=== PATIENT | male | born 1960 | race African-American/Black ===

== ENCOUNTER 2018-08-20 10:37 | Inpatient (IN) | payer OTHER, SELFPAY ==
[2018-08-20] VITALS (54 sets, daily range): BP systolic 132–233; BP diastolic 73–149; PULSE 18–110; RESP 12–26; TEMP 36–37.7; O2SAT 91–100; BMI 49.5; BMI 50.1
--- NOTE | 2018-08-20 08:00 | RAD_ITS ---
PROCEDURE: Right L5-S1 S1-S2 and is to S3 radiofrequency ablation. DATE OF EXAMINATION: August 20, 2018. INDICATION: Male, 58 years old. Chronic pain. Prior spinal surgery. FLUOROSCOPY TIME (if supplied): (0:48) minutes/seconds. 5 intraoperative views were obtained. Intraoperative imaging was provided for right L5-S1, S1-S2 and S2-S3 radiofrequency ablations. RAD/L/S Spine Min 4 Views IMPRESSION: Intraoperative imaging provided for right-sided radiofrequency ablations. Electronically Signed: Celestine Reynolds, at 14:12 EDT , Service support ,
--- NOTE | 2018-08-20 09:50 | NURSING ---
Pt to ICU from OR w/Dr Carr, shaquille Flores, from surgery. Pt intubated with 6.[address] Perez present when pt arrived so face to face physician report given. Respiratory also present to place on ventilator. Pt agitated, restless, biting on tube. Order received from Dr Perez for Propofol GTT. Order also received for EKG d/t concern of ST changes. Dr Perez present and saw EKG results. No new orders at this time. Dr Perez will be changing the pt's ETT out for a bigger size.
--- NOTE | 2018-08-20 09:55 | CPS ---
critical value for ABG given to [facility] [employer] ICU therapist for day...will relay result ICU
--- NOTE | 2018-08-20 09:58 | RAD_ITS ---
STUDY: X-RAY CHEST REASON FOR EXAM: Male, 58 years old. Endotracheal tube and oral gastric tube placement. TECHNIQUE: Single AP portable view of the chest. COMPARISON: None. FINDINGS: An endotracheal tube is in situ. The tip is at 3.7 cm proximal to the colette. The tip of the oral gastric tube is in the distal portion of the stomach. There is evidence of a vascular congestion and CHF. There is no demonstrated pleural abnormality. There is mild cardiac enlargement. Normal mediastinum and kalani. Normal visualized pulmonary arteries. There is atherosclerotic tortuosity of the aortic arch and descending thoracic aorta. There are diffuse degenerative changes of the visualized thoracic spine. Normal visualized ribs, clavicles, and shoulders. There is no demonstrated abnormality of the visualized soft tissue structures of the upper abdomen. RAD/Chest 1 View (Portable) IMPRESSION: The tip of the endotracheal tube is at 3.7 cm proximal to the colette. The tip of the oral gastric tube is in the distal portion of the stomach. Cardiomegaly and CHF. Electronically Signed: Celestine Reynolds, at 11:15 EDT , Service support ,
--- NOTE | 2018-08-20 09:59 | EKG12_ITS ---
Test Reason : ARRYTHMIA Blood Pressure : / mmHG Vent. Rate : 074 BPM Atrial Rate : 074 BPM P-R Int : 210 ms QRS Dur : 108 ms QT Int : 450 ms P-R-T Axes : 059 090 092 degrees QTc Int : 499 ms Sinus rhythm with 1st degree A-V block Prolonged QT Poor R wave progression Abnormal ECG Confirmed by JOSSY GILMORE, MIAN ([id number]), managing editor CARYN MICHAEL ([id number]) on 08/24/2018 7:09:23 AM Referred By: Angel Ruggiero Confirmed By:MIAN FENTON MD
[2018-08-20 10:06] LABS: ALB/GLOB Ratio 0.8 RATIO (0.9-2.4); AST(SGOT) 53 U/L (15-37); Alanine Aminotransfer ALT/SGPT 59 U/L (16-61); Albumin, Serum 3.2 g/dL (3.2-5.0); Alkaline Phosphatase 59 U/L (45-117); Anion Gap 9 (5-15); BUN 17 mg/dL (7-18); BUN/Creat Ratio 14.2 RATIO (10-20); Calcium,Total 8.3 mg/dL (8.5-10.1); Chloride 103 mmol/L (98-107); EST Glomerular Filtration Rate 66 mL/min (>60); Est Glom Filt Rate - Afr Amer 80 mL/min (>60); Estimated Creatinine Clearance 74.91 ml/min; Globulin 3.9 g/dL (2.2-4.2); Glucose 185 mg/dL (74-106); Potassium 4.1 mmol/L (3.5-5.1); Protein, Total 7.1 g/dL (6.4-8.2); Sodium Level 138 mmol/L (136-145)
[2018-08-20] MEDS: Propofol 10MG/Ml 1,000 MG/100 ML Bottle 10.206 MG CONT INF ×3 (10:10→21:23)
[2018-08-20 10:58] LABS: Absolute Lymphocyte Count 1.43 X10^3/ul (0.83-4.51); Absolute Neutrophil Count 3.1 X10^3/uL (2.0-7.7); Basophil# 0.03 X10^3/uL; Basophil% 0.6 % (0-1); Eosinophil# 0.17 X10^3/uL; Eosinophils% 3.2 % (0-5); Hematocrit 41.2 % (40-54); Hemoglobin 13.5 g/dl (13.0-16.5); Lymphocyte # 1.43 X10^3/ul (4.0); Mean Corp Hgb Conc 32.8 g/gl (32-36); Mean Corpuscular Hgb 27.9 pg (27.0-32.0); Mean Corpuscular Volume 85.1 fL (80-94); Mean Platelet Vol. 12.5 fl (6.2-12.0); Monocyte# 0.61 X10^3/uL; Monocyte% 11.5 % (0-10); Neutrophil # 3.05 X10^3/uL (2.7-7.7); Neutrophil % 57.5 % (47-70); Platelet Count 185 K/mm3 (150-450); RBC Distribution Width CV 16.3 % (11.6-14.6); RBC Distribution Width SD 50.6 fl (35.1-43.9); Red Blood Count 4.84 M/mm3 (4.6-6.2); White Blood Count 5.3 K/mm3 (4.4-11.0)
--- NOTE | 2018-08-20 10:59 | HP.PCM_ITS ---
Problem List (1) Cardiopulmonary arrest Status: Acute (2) Essential (primary) hypertension Status: Chronic (3) Morbid obesity Status: Chronic (4) DJD (degenerative joint disease) Status: Chronic History of Present Illness Date of Admission: 08/20/18 Chief Complaint: Cardiopulmonary arrest The patient is a 58 year old M with multiple comorbidities including severe back pain as a result of degenerative joint disease, obstructive sleep apnea, morbid obesity with BMI of 49.5, who had been scheduled to undergo radiofrequency ablation involving his back on 08/20/2018. Patient apparently did receive 200 mg of propofol for induction. He was later found to be hypoxic he apparently bradycardia down went into asystole. CODE BLUE was called patient successfully resuscitated with ACLS protocol. Patient did receive epinephrine as well as shock for VT. He was subsequently intubated and transferred to the intensive care unit. Further history could not be obtained since patient is currently sedated on the [facility] Past Medical History Past Medical History (Chronic Problems): Chronic Problems Essential (primary) hypertension (Chronic) Morbid obesity (Chronic) DJD (degenerative joint disease) (Chronic) Allergies Penicillins Allergy (Verified 08/17/18 09:27) Hives pregabalin [From Lyrica] Allergy (Verified 08/17/18 09:27) Hives red dye Allergy (Verified 08/17/18 09:27) Angioedema Home Medications: Ambulatory Orders Medication Instructions Recorded Cephalexin [Keflex] 500 mg PO TID 04/04/13 Clonidine HCl [Catapres] 0.1 mg PO BID 04/04/13 Furosemide [Lasix] 40 mg PO DAILY PRN 04/04/13 Hydrocodone Bitart/Apap 5-325 1 tablet PO 4X/DAY PRN 04/04/13 [[place] 5MG-325MG] Lisinopril [Zestril] 40 mg PO BID 04/04/13 Vitamin B Complex 1 each PO DAILY 04/04/13 Albuterol IH (ProAir) [Proair Hfa 1 - 2 puff INHALATION Q6H PRN PRN 08/17/18 (SP)Vent Pts] Aspirin [Aspir 81] 81 mg PO DAILY 08/17/18 Budesonide/Formoterol 160/4.5 2 puff INHALATION BID 08/17/18 [Symbicort 160/4.5 Mcg Inhaler (SP)] Diclofenac [Voltaren] 75 mg PO BIDCM 08/17/18 Sotalol HCl [Sotalol AF] 80 mg PO BID 08/17/18 hydrALAZINE [Apresoline] 50 mg PO BID 08/17/18 Surgical History: total hip arthroplasty, total knee arthroplasty Smoking Status: Current every day smoker Tobacco Use: Cigarettes - *Family History Maternal History Items: - - Unable to obtain patient is on the vent Paternal History Items: - - Unable to obtain patient is on the vent Review of Systems Unable to obtain accurate/complete ROS d/t: Being sedated on the vent VTE Information - Inpt Only VTE Present on Admission: No VTE Mechan Device Prophylaxis: SCD's VTE Pharm Prophylaxis ordered?: Yes Patient Problems: Active and Suspected Problems Cardiopulmonary arrest (Acute) Objective: GENERAL: Sedated on the vent HEENT: Atraumatic; EYES; Anicteric, Normal Conjunctiva NECK; ET tube in place RESPIRATORY: Diminished to auscultation bilaterally, CARDIOVASCULAR: Regular S1 S2, GI: Protuberant, normoactive bowel sounds, : No Renal angle tenderness; EXTREMITIES: No edema, no clubbing, NEURO: Awake; no lateralizing signs. SKIN: No Rash PSYCH; Normal affect - Physical Exam Vital Signs Temp Pulse Resp BP Pulse Ox 98 F 78 18 132/73 H 100 08/20/18 08:03 08/20/18 10:53 08/20/18 10:53 08/20/18 09:41 08/20/18 10:53 Oxygen Delivery Method Room Air Weight: 170.097 kg Body Mass Index (BMI) 49.5 Laboratory Tests Past 24 Hrs 08/20/18 08/20/18 08/20/18 09:20 09:45 10:15 WBC RBC Hgb Hct MCV MCH MCHC RDW RDW Differential Plt Count Neut % (Auto) Absolute Neuts (auto) Total Counted pH Pending Bicarbonate Actual Pending POC Total CO2 Pending Base Excess Pending O2 Saturation Pending ABG pCO2 Pending ABG pO2 Pending Sodium 138 Pending Potassium 4.1 Pending Chloride 103 Pending Carbon Dioxide 26.0 Pending Anion Gap 9 Pending BUN 17 Pending Creatinine 1.20 Pending Estim Creat Clear Calc 74.91 Est GFR (MDRD) Af Amer 80 Pending Est GFR (MDRD) Non-Af 66 Pending BUN/Creatinine Ratio 14.2 Pending Glucose 185 H Pending Lactic Acid Calcium 8.3 L Pending Magnesium 3.0 H Pending Total Bilirubin 1.00 Pending AST 53 H Pending ALT 59 Pending Alkaline Phosphatase 59 Pending Troponin I < 0.015 Total Protein 7.1 Pending Albumin 3.2 Pending Globulin 3.9 Albumin/Globulin Ratio 0.8 L 08/20/18 08/20/18 10:15 10:15 WBC Pending RBC Pending Hgb Pending Hct Pending MCV Pending MCH Pending MCHC Pending RDW Pending RDW Differential Pending Plt Count Pending Neut % (Auto) Pending Absolute Neuts (auto) Pending Total Counted Pending pH Bicarbonate Actual POC Total CO2 Base Excess O2 Saturation ABG pCO2 ABG pO2 Sodium Potassium Chloride Carbon Dioxide Anion Gap BUN Creatinine Estim Creat Clear Calc Est GFR (MDRD) Af Amer Est GFR (MDRD) Non-Af BUN/Creatinine Ratio Glucose Lactic Acid Pending Calcium Magnesium Total Bilirubin AST ALT Alkaline Phosphatase Troponin I Total Protein Albumin Globulin Albumin/Globulin Ratio Assessment/Plan All Active Problems Cardiopulmonary arrest (Acute) Patient is a 58-year-old gentleman with multiple comorbidities including morbid obesity with BMI of 50, essential hypertension obstructive sleep apnea who went into cardiopulmonary arrest after induction of anesthesia for a back procedure. Successfully resuscitated with ACLS protocol and admitted to the intensive care unit 1. Cardiopulmonary arrest patient was successfully resuscitated with ACLS p rotocol. Per documentation from OR patient first went into asystole followed by V. tach. He did receive epinephrine as well as synchronized shock. 2. Acute respiratory failure following cardiopulmonary arrest patient was intubated has since been admitted to the intensive care unit consultation placed to Dr. Perez for ICU and vent management 3. Acute congestive heart failure (unspecified at this point) per chest x-ray obtained following patient cardiopulmonary arrest 2D echo ordered for EF assessment. Patient started on Lasix. Ordered serial cardiac enzymes to rule out ischemia as a possible precipitating factor 4. Essential hypertension-blood pressure controlled, home medications continued with dose adjustment as needed 3. Mild intermittent asthma 4. Obstructive apnea 5. Previous DVT following vein stripping 6. Tobacco dependence 7. Morbid obesity with BMI of 49.5 8. DVT prophylaxis SC Lovenox dose adjusted for weight Code Visit Inpatient E&M: 92585 Init Hosp L3
[2018-08-20 11:02] LABS: POSITIVE COUNT NO; POSITIVE DIFFERENTIAL NO; POSITIVE MORPHOLOGY NO
[2018-08-20 11:10] LABS: ALB/GLOB Ratio 0.9 RATIO (0.9-2.4); AST(SGOT) 89 U/L (15-37); Alanine Aminotransfer ALT/SGPT 72 U/L (16-61); Albumin, Serum 2.5 g/dL (3.2-5.0); Alkaline Phosphatase 45 U/L (45-117); Anion Gap 10 (5-15); BUN 15 mg/dL (7-18); BUN/Creat Ratio 17.1 RATIO (10-20); Calcium,Total 7.4 mg/dL (8.5-10.1); Chloride 105 mmol/L (98-107); Creatinine, Serum 0.88 mg/dL (0.70-1.30); EST Glomerular Filtration Rate 95 mL/min (>60); Est Glom Filt Rate - Afr Amer 114 mL/min (>60); Estimated Creatinine Clearance 102.14 ml/min; Globulin 2.9 g/dL (2.2-4.2); Glucose 142 mg/dL (74-106); Magnesium 1.7 mg/dL (1.6-2.6); Protein, Total 5.4 g/dL (6.4-8.2); Sodium Level 138 mmol/L (136-145)
--- NOTE | 2018-08-20 11:13 | EKG12_ITS ---
Test Reason : ARRYTHMIA Blood Pressure : / mmHG Vent. Rate : 058 BPM Atrial Rate : 250 BPM P-R Int : 000 ms QRS Dur : 098 ms QT Int : 462 ms P-R-T Axes : 000 073 150 degrees QTc Int : 453 ms Atrial flutter Nonspecific ST and T wave abnormality , probably digitalis effect Poor R wave progression Abnormal ECG Confirmed by JOSSY GILMORE, MIAN ([id number]), videotape editor CARYN MICHAEL ([id number]) on 08/24/2018 6:51:26 AM Referred By: Angel Ruggiero Confirmed By:MIAN FENTON MD
--- NOTE | 2018-08-20 11:13 | PCM.CON.CC ---
Reason for Consult Date of Consultation: 08/20/18 Reason for Consultation: Acute respiratory failure History of Present Illness: The patient is a 58-year-old male, with a history as outlined below, who presented to the hospital for an elective outpatient radiofrequency ablation under the discretion of Dr. Stevie Owens. Per the patient's pre-anesthesia report, the patient has a medical history that includes obstructive sleep apnea, hypertension, COPD, tobacco dependency, prior DVT, chronic pain and morbid obesity. The patient was initially admitted to the medical intensive care unit after suffering cardiopulmonary arrest in the OR. Per anesthesia documentation and report, the patient was given 200 mg of propofol prior to being placed in a prone position. The patient then be reportedly became hypoxic and eventually pulseless. The patient did not have any form of an advanced airway in place prior to the initiation of advanced cardiac life support. ACLS was then initiated. The patient was then intubated with a #6.5 endotracheal tube. The patient did receive a one-time shock for pulseless V. tach. It does appear that the entire event concluded in approximately 6 to 7 minutes. ROSC was achieved. The patient was then transferred to the medical intensive care unit for ongoing management. Arterial blood gas obtained immediately following intubation revealed a pH of 7.21 with a corresponding PCO2 of 71 and PO2 of 161. On arrival to the ICU, the patient was noted to be hemodynamically stable. He was alert and agitated. An audible air leak was notable. Therefore, the decision was made to appropriately sedate the patient and proceed with endotracheal tube exchange. The patient received a one-time bolus of propofol, after which time, the patient's #6.5 endotracheal tube was removed and a #7.5 endotracheal tube placed, without complication. Appropriate endotracheal tube placement was confirmed by chest x-ray. EKG was obtained and showed no evidence of ST segment elevation or T wave changes. Initial lab work showed no evidence of a leukocytosis. Chemistry profile was unremarkable. Troponin was negative. ICU nursing staff did call and speak to the patient's PCP office, Dr. Turk, who indicated that the patient was only seen by a fruit or nut farmer in 2016 at [facility]. They did not have an echo on file for the patient. They also reported that the patient's PCP has been managing his Sotalol AF prescription. However, per the PCP office staff, the patient does not have a documented history of atrial fib and the Sotalol was being used to manage the patient's hypertension. And although there is paper documentation of a history of CRISTELA, the PCP office stated that he has never had a sleep study. 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) Allergies Penicillins Allergy (Verified 08/17/18 09:27) Hives pregabalin [From Lyrica] Allergy (Verified 08/17/18 09:27) Hives red dye Allergy (Verified 08/17/18 09:27) Angioedema Home Medications: Ambulatory Orders Medication Instructions Recorded Cephalexin [Keflex] 500 mg PO TID 04/04/13 Clonidine HCl [Catapres] 0.1 mg PO BID 04/04/13 Furosemide [Lasix] 40 mg PO DAILY PRN 04/04/13 Hydrocodone Bitart/Apap 5-325 1 tablet PO 4X/DAY PRN 04/04/13 [[place] 5MG-325MG] Lisinopril [Zestril] 40 mg PO BID 04/04/13 Vitamin B Complex 1 each PO DAILY 04/04/13 Albuterol IH (ProAir) [Proair Hfa 1 - 2 puff INHALATION Q6H PRN PRN 08/17/18 (SP)Vent Pts] Aspirin [Aspir 81] 81 mg PO DAILY 08/17/18 Budesonide/Formoterol 160/4.5 2 puff INHALATION BID 08/17/18 [Symbicort 160/4.5 Mcg Inhaler (SP)] Diclofenac [Voltaren] 75 mg PO BIDCM 08/17/18 Sotalol HCl [Sotalol AF] 80 mg PO BID 08/17/18 hydrALAZINE [Apresoline] 50 mg PO BID 08/17/18 Sildenafil Citrate [Sildenafil] 20 mg PO PRN PRN 08/20/18 Surgical History: total hip arthroplasty, total knee arthroplasty Smoking Status: Current every day smoker Tobacco Use: Cigarettes - *Family History Maternal History Items: - - Unable to obtain patient is on the vent Paternal History Items: - - Unable to obtain patient is on the vent Review of Systems Unable to obtain accurate/complete ROS d/t: Due to current intubation and mechanical ventilation status. Patient Problems: Active and Suspected Problems Cardiopulmonary arrest (Acute) Objective: The patient's most recent lab work, culture data and imaging studies have all been personally reviewed. - Physical Exam General: - - Currently intubated, sedated and mechanically ventilated. HEENT: Atraumatic, PERRLA, Normocephalic Oral: Moist Mucosa, - - Endotracheal and OG tubes currently in place. Neck: Supple, No Nodes, Trachea Midline, - - Large neck circumference with redundant soft tissue Lungs: No rhonchi, No wheeze, No rales, Diminished Cardiovascular: Regular rate, Regular Rhythm, Normal S1, Normal S2, No murmurs Abdomen: Bowel Sounds Present, Soft, Non Tender, Distended, Obese Extremities: No clubbing, No cyanosis, Edema Skin: - - Chronic lower extremity skin changes Musculoskeletal: No Muscle Wasting Lymphatic: No Cervical, Supraclavicular, or Inguinal Adenopathy Neurological: - - No focal neurological deficits. Vital Signs Temp Pulse Resp BP Pulse Ox 98 F 78 18 132/73 H 100 08/20/18 08:03 08/20/18 10:45 08/20/18 10:45 08/20/18 09:41 08/20/18 10:45 Oxygen Delivery Method Room Air Weight: 375 lb Body Mass Index (BMI) 49.5 Laboratory Tests Past 24 Hrs 08/20/18 08/20/18 08/20/18 09:20 09:45 10:15 WBC RBC Hgb Hct MCV MCH MCHC RDW RDW Differential Plt Count MPV Immature Gran % (Auto) Neut % (Auto) Lymph % (Auto) [place] % (Auto) Eos % (Auto) Baso % (Auto) Absolute Neuts (auto) Absolute Lymphs (auto) Total Counted pH Pending Bicarbonate Actual Pending POC Total CO2 Pending Base Excess Pending O2 Saturation Pending ABG pCO2 Pending ABG pO2 Pending Sodium 138 138 Potassium 4.1 5.0 Chloride 103 105 Carbon Dioxide 26.0 23.0 Anion Gap 9 10 BUN 17 15 Creatinine 1.20 0.88 Estim Creat Clear Calc 74.91 102.14 Est GFR (MDRD) Af Amer 80 114 Est GFR (MDRD) Non-Af 66 95 BUN/Creatinine Ratio 14.2 17.1 Glucose 185 H 142 H Lactic Acid Calcium 8.3 L 7.4 L Magnesium 3.0 H 1.7 Total Bilirubin 1.00 0.70 AST 53 H 89 H ALT 59 72 H Alkaline Phosphatase 59 45 Troponin I < 0.015 Total Protein 7.1 5.4 L Albumin 3.2 2.5 L Globulin 3.9 2.9 Albumin/Globulin Ratio 0.8 L 0.9 08/20/18 08/20/18 10:15 10:15 WBC 5.3 RBC 4.84 Hgb 13.5 Hct 41.2 MCV 85.1 MCH 27.9 MCHC 32.8 RDW 16.3 H RDW Differential 50.6 H Plt Count 185 MPV 12.5 H Immature Gran % (Auto) 0.200 Neut % (Auto) 57.5 Lymph % (Auto) 27.0 [place] % (Auto) 11.5 H Eos % (Auto) 3.2 Baso % (Auto) 0.6 Absolute Neuts (auto) 3.1 Absolute Lymphs (auto) 1.43 Total Counted Not Reportable pH Bicarbonate Actual POC Total CO2 Base Excess O2 Saturation ABG pCO2 ABG pO2 Sodium Potassium Chloride Carbon Dioxide Anion Gap BUN Creatinine Estim Creat Clear Calc Est GFR (MDRD) Af Amer Est GFR (MDRD) Non-Af BUN/Creatinine Ratio Glucose Lactic Acid Pending Calcium Magnesium Total Bilirubin AST ALT Alkaline Phosphatase Troponin I Total Protein Albumin Globulin Albumin/Globulin Ratio Clinical Impression(s) from Imaging Studies Chest X-Ray 08/20/18 09:58 IMPRESSION: The tip of the endotracheal tube is at 3.7 cm proximal to the colette. The tip of the oral gastric tube is in the distal portion of the stomach. Cardiomegaly and CHF. Electronically Signed: Celestine Reynolds, at 11:15 EDT , Service support , Assessment/Plan Active and Suspected Problems Cardiopulmonary arrest (Acute) RECOMMENDATIONS: 1. Obtain repeat arterial blood gas. 2. Upsize endotracheal tube. 3. Propofol and fentanyl for sedation. Goal to maintain a RASS of -1 to 1. 4. Discontinue continuous supplemental IV fluids. 5. Start Lovenox and Pepcid for prophylaxis. 6. Plan for paired spontaneous awakening and breathing trial tomorrow morning. 7. Given the patient's underlying arrhythmia and current script for Sotalol, will ask cardiology to evaluate patient. 8. Echocardiogram is pending. IMPRESSIONS: 1. Acute combined respiratory failure/cardiac arrest with mild troponin elevation I suspect that the precipitating etiology for the patient's cardiac arrest was likely due to respiratory arrest and subsequent hypoxia/hypercarbia in the setting of sedating medication administration. The patient did require emergent intubation and initiation of ACLS prior to achieving ROSC. Initial troponin was negative. We will plan to continue the patient on invasive mechanical ventilatory support. Propofol and fentanyl will be started for sedation. We will plan for paired spontaneous awakening and breathing trials beginning tomorrow morning. Pepcid and Lovenox will be utilized for ICU prophylaxis. Echocardiogram is currently pending. 2. Suspected Obstructive sleep apnea/Questionable COPD/tobacco dependency Upon successful liberation from mechanical ventilatory support, would recommend initiation of BiPAP with naps and nightly. As needed bronchodilators will be continued. The patient appears to be prescribed Symbicort on an outpatient basis. 3. Atrial Fibrillation/flutter of unknown chronicity/hypertension/morbid obesity Complicates care, management, recovery and prognosis. Okay to continue home medications, with the exception of Sotalol and clonidine, given slow a fib/flutter on telemetry. TIME: 45 minutes of critical care time, independent of procedures, was spent addressing the patient's acute combined respiratory failure, cardiopulmonary arrest, obstructive sleep apnea, asthma, tobacco dependency, review of all data and collaboration with the care team. ([id number]) Code Visit 9xxxx: [id number] Critical care first hour
--- NOTE | 2018-08-20 11:24 | CON.PCM_ITS ---
Reason for Consult Date of Consultation: 08/20/18 Reason for Consultation: Acute respiratory failure History of Present Illness: The patient is a 58-year-old male, with a history as outlined below, who presented to the hospital for an elective outpatient radiofrequency ablation under the discretion of Dr. Stevie Owens. Per the patient's pre-anesthesia report, the patient has a medical history that includes obstructive sleep apnea, hypertension, COPD, tobacco dependency, prior DVT, chronic pain and morbid obesity. The patient was initially admitted to the medical intensive care unit after suffering cardiopulmonary arrest in the OR. Per anesthesia documentation and report, the patient was given 200 mg of propofol prior to being placed in a prone position. The patient then be reportedly became hypoxic and eventually pulseless. The patient did not have any form of an advanced airway in place prior to the initiation of advanced cardiac life support. ACLS was then initiated. The patient was then intubated with a #6.5 endotracheal tube. The patient did receive a one-time shock for pulseless V. tach. It does appear that the entire event concluded in approximately 6 to 7 minutes. ROSC was achieved. The patient was then transferred to the medical intensive care unit for ongoing management. Arterial blood gas obtained immediately following intubation revealed a pH of 7.21 with a corresponding PCO2 of 71 and PO2 of 161. On arrival to the ICU, the patient was noted to be hemodynamically stable. He was alert and agitated. An audible air leak was notable. Therefore, the decision was made to appropriately sedate the patient and proceed with endotracheal tube exchange. The patient received a one-time bolus of propofol, after which time, the patient's #6.5 endotracheal tube was removed and a #7.5 endotracheal tube placed, without complication. Appropriate endotracheal tube placement was confirmed by chest x-ray. EKG was obtained and showed no evidence of ST segment elevation or T wave changes. Initial lab work showed no evidence of a leukocytosis. Chemistry profile was unremarkable. Troponin was negative. ICU nursing staff did call and speak to the patient's PCP office, Dr. Turk, who indicated that the patient was only seen by a transformation architect in 2016 at [facility]. They did not have an echo on file for the patient. They also reported that the patient's PCP has been managing his Sotalol AF prescription. However, per the PCP office staff, the patient does not have a documented history of atrial fib and the Sotalol was being used to manage the patient's hypertension. And although there is paper documentation of a history of CRISTELA, the PCP office stated that he has never had a sleep study. 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) Allergies Penicillins Allergy (Verified 08/17/18 09:27) Hives pregabalin [From Lyrica] Allergy (Verified 08/17/18 09:27) Hives red dye Allergy (Verified 08/17/18 09:27) Angioedema Home Medications: Ambulatory Orders Medication Instructions Recorded Cephalexin [Keflex] 500 mg PO TID 04/04/13 Clonidine HCl [Catapres] 0.1 mg PO BID 04/04/13 Furosemide [Lasix] 40 mg PO DAILY PRN 04/04/13 Hydrocodone Bitart/Apap 5-325 1 tablet PO 4X/DAY PRN 04/04/13 [Nichols 5MG-325MG] Lisinopril [Zestril] 40 mg PO BID 04/04/13 Vitamin B Complex 1 each PO DAILY 04/04/13 Albuterol IH (ProAir) [Proair Hfa 1 - 2 puff INHALATION Q6H PRN PRN 08/17/18 (SP)Vent Pts] Aspirin [Aspir 81] 81 mg PO DAILY 08/17/18 Budesonide/Formoterol 160/4.5 2 puff INHALATION BID 08/17/18 [Symbicort 160/4.5 Mcg Inhaler (SP)] Diclofenac [Voltaren] 75 mg PO BIDCM 08/17/18 Sotalol HCl [Sotalol AF] 80 mg PO BID 08/17/18 hydrALAZINE [Apresoline] 50 mg PO BID 08/17/18 Sildenafil Citrate [Sildenafil] 20 mg PO PRN PRN 08/20/18 Surgical History: total hip arthroplasty, total knee arthroplasty Smoking Status: Current every day smoker Tobacco Use: Cigarettes - *Family History Maternal History Items: - - Unable to obtain patient is on the vent Paternal History Items: - - Unable to obtain patient is on the vent Review of Systems Unable to obtain accurate/complete ROS d/t: Due to current intubation and mechan ical ventilation status. Patient Problems: Active and Suspected Problems Cardiopulmonary arrest (Acute) Objective: The patient's most recent lab work, culture data and imaging studies have all been personally reviewed. - Physical Exam General: - - Currently intubated, sedated and mechanically ventilated. HEENT: Atraumatic, PERRLA, Normocephalic Oral: Moist Mucosa, - - Endotracheal and OG tubes currently in place. Neck: Supple, No Nodes, Trachea Midline, - - Large neck circumference with redundant soft tissue Lungs: No rhonchi, No wheeze, No rales, Diminished Cardiovascular: Regular rate, Regular Rhythm, Normal S1, Normal S2, No murmurs Abdomen: Bowel Sounds Present, Soft, Non Tender, Distended, Obese Extremities: No clubbing, No cyanosis, Edema Skin: - - Chronic lower extremity skin changes Musculoskeletal: No Muscle Wasting Lymphatic: No Cervical, Supraclavicular, or Inguinal Adenopathy Neurological: - - No focal neurological deficits. Vital Signs Temp Pulse Resp BP Pulse Ox 98 F 78 18 132/73 H 100 08/20/18 08:03 08/20/18 10:45 08/20/18 10:45 08/20/18 09:41 08/20/18 10:45 Oxygen Delivery Method Room Air Weight: 375 lb Body Mass Index (BMI) 49.5 Laboratory Tests Past 24 Hrs 08/20/18 08/20/18 08/20/18 09:20 09:45 10:15 WBC RBC Hgb Hct MCV MCH MCHC RDW RDW Differential Plt Count MPV Immature Gran % (Auto) Neut % (Auto) Lymph % (Auto) [place] % (Auto) Eos % (Auto) Baso % (Auto) Absolute Neuts (auto) Absolute Lymphs (auto) Total Counted pH Pending Bicarbonate Actual Pending POC Total CO2 Pending Base Excess Pending O2 Saturation Pending ABG pCO2 Pending ABG pO2 Pending Sodium 138 138 Potassium 4.1 5.0 Chloride 103 105 Carbon Dioxide 26.0 23.0 Anion Gap 9 10 BUN 17 15 Creatinine 1.20 0.88 Estim Creat Clear Calc 74.91 102.14 Est GFR (MDRD) Af Amer 80 114 Est GFR (MDRD) Non-Af 66 95 BUN/Creatinine Ratio 14.2 17.1 Glucose 185 H 142 H Lactic Acid Calcium 8.3 L 7.4 L Magnesium 3.0 H 1.7 Total Bilirubin 1.00 0.70 AST 53 H 89 H ALT 59 72 H Alkaline Phosphatase 59 45 Troponin I < 0.015 Total Protein 7.1 5.4 L Albumin 3.2 2.5 L Globulin 3.9 2.9 Albumin/Globulin Ratio 0.8 L 0.9 08/20/18 08/20/18 10:15 10:15 WBC 5.3 RBC 4.84 Hgb 13.5 Hct 41.2 MCV 85.1 MCH 27.9 MCHC 32.8 RDW 16.3 H RDW Differential 50.6 H Plt Count 185 MPV 12.5 H Immature Gran % (Auto) 0.200 Neut % (Auto) 57.5 Lymph % (Auto) 27.0 [place] % (Auto) 11.5 H Eos % (Auto) 3.2 Baso % (Auto) 0.6 Absolute Neuts (auto) 3.1 Absolute Lymphs (auto) 1.43 Total Counted Not Reportable pH Bicarbonate Actual POC Total CO2 Base Excess O2 Saturation ABG pCO2 ABG pO2 Sodium Potassium Chloride Carbon Dioxide Anion Gap BUN Creatinine Estim Creat Clear Calc Est GFR (MDRD) Af Amer Est GFR (MDRD) Non-Af BUN/Creatinine Ratio Glucose Lactic Acid Pending Calcium Magnesium Total Bilirubin AST ALT Alkaline Phosphatase Troponin I Total Protein Albumin Globulin Albumin/Globulin Ratio Clinical Impression(s) from Imaging Studies Chest X-Ray 08/20/18 09:58 IMPRESSION: The tip of the endotracheal tube is at 3.7 cm proximal to the colette. The tip of the oral gastric tube is in the distal portion of the stomach. Cardiomegaly and CHF. Electronically Signed: Celestine Reynolds, at 11:15 EDT , Service support , Assessment/Plan Active and Suspected Problems Cardiopulmonary arrest (Acute) RECOMMENDATIONS: 1. Obtain repeat arterial blood gas. 2. Upsize endotracheal tube. 3. Propofol and fentanyl for sedation. Goal to maintain a RASS of -1 to 1. 4. Discontinue continuous supplemental IV fluids. 5. Start Lovenox and Pepcid for prophylaxis. 6. Plan for paired spontaneous awakening and breathing trial tomorrow morning. 7. Given the patient's underlying arrhythmia and current script for Sotalol, will ask cardiology to evaluate patient. 8. Echocardiogram is pending. IMPRESSIONS: 1. Acute combined respiratory failure/cardiac arrest with mild troponin elevation I suspect that the precipitating etiology for the patient's cardiac arrest was likely due to respiratory arrest and subsequent hypoxia/hypercarbia in the setting of sedating medication administration. The patient did require emergent intubation and initiation of ACLS prior to achieving ROSC. Initial troponin was negative. We will plan to continue the patient on invasive mechanical ventilatory support. Propofol and fentanyl will be started for sedation. We will plan for paired spontaneous awakening and breathing trials beginning tomorrow morning. Pepcid and Lovenox will be utilized for ICU prophylaxis. Echocardiogram is currently pending. 2. Suspected Obstructive sleep apnea/Questionable COPD/tobacco dependency Upon successful liberation from mechanical ventilatory support, would recommend initiation of BiPAP with naps and nightly. As needed bronchodilators will be continued. The patient appears to be prescribed Symbicort on an outpatient basis. 3. Atrial Fibrillation/flutter of unknown chronicity/hypertension/morbid obesity Complicates care, management, recovery and prognosis. Okay to continue home medications, with the exception of Sotalol and clonidine, given slow a fib/f lutter on telemetry. TIME: 45 minutes of critical care time, independent of procedures, was spent addressing the patient's acute combined respiratory failure, cardiopulmonary arrest, obstructive sleep apnea, asthma, tobacco dependency, review of all data and collaboration with the care team. ([id number]) Code Visit 9xxxx: [id number] Critical care first hour
[2018-08-20 11:51] LABS: Allen Test POS; Base Excess 1 mmol/L (-2 to +2); Bicarbonate 27.5 mmol/L (22-26); Blood Gas Specimen Type ART; FI02 40; Mode A-C; O2 Delivery Device Vent; PEEP 5; PO2 86 mmHG (75-100); RR 12; SITE L Radial; SO2 95 % (95-99); Time Given 1143; Total Carbon Dioxide 29 mmol/L; Vt 450; pCO2 54.3 mmHg (35-45); pH 7.31 (7.35-7.45)
[2018-08-20] MEDS: fentaNYL drip 100 ML 5 MCG CONT INF (11:51)
--- NOTE | 2018-08-20 11:58 | ECHOCS_ITS ---
Reason For Study: CHF Procedure This was a 2D Doppler, Color Flow transthoracic echocardiogram. The study was technically difficult. Contrast injection was performed. Poor apical windows d/t body habitus, Pt on vent. Exam performed portable in ICU/CCU. Left Ventricle Normal LV size. Moderate concentric left ventricular hypertrophy. Left ventricular systolic function is lower limits of normal. The estimated ejection fraction is 53 %. Stage 3 diastolic dysfunction. No regional wall motion abnormalities noted. Right Ventricle Normal RV size. Normal systolic function. Atria The left atrium is moderately enlarged. The right atrium is mildly enlarged. Tricuspid Valve Normal tricuspid valve. Trivial tricuspid valve insufficiency. Aortic Valve Trisinus/trileaflet aortic valve. Normal aortic valve. Pulmonic Valve Normal pulmonic valve. Great Vessels Normal aortic root. The pulmonary artery is normal size. Normal inferior vena cava. Pericardium/Pleural No pericardial effusion. Medication Diluted definity 4ml given slow IV push to enhance endocardial definition. MMode/2D Measurements & Calculations LVIDd: 5.2 cm IVSd: 1.4 cm Ao root diam: 3.5 cm LVIDs: 4.1 cm LVPWd: 1.2 cm FS: 22.1 % LAV(MOD-bp): 95.3 ml EDV(MOD-sp4): 174.9 ml EDV(MOD-sp2): 130.3 ml LAV(MOD-bp) Indexed: 33.9 ml/m2 ESV(MOD-sp4): 86.9 ml EF(MOD-sp2): 35.7 % LAV(MOD-sp2): 87.2 ml EF(MOD-sp4): 50.3 % LAV(MOD-sp4): 102.8 ml SV(MOD-sp4): 88.0 ml SV(MOD-sp2): 46.5 ml LA A4 area: 28.7 cm2 LA dimension(2D): 5.0 cm RA A4 area: 23.1 cm2 Time Measurements MV dec time: 0.18 sec Doppler Measurements & Calculations MV E max amaya: 92.9 cm/sec Ao V2 max: 99.1 cm/sec LV V1 max: 89.4 cm/sec MV A max amaya: 29.2 cm/sec Ao max P.0 mmHg LV V1 max P.2 mmHg MV E/A: 3.2 PA V2 max: 83.6 cm/sec TR max amaya: 162.0 cm/sec TR max P.5 mmHg Interpretation Summary Normal LV size. Moderate concentric left ventricular hypertrophy. Left ventricular systolic function is lower limits of normal. The estimated ejection fraction is 53 %. Stage 3 diastolic dysfunction. Contrast injection was performed. Ordering Physician: Angel Ruggiero Referring Physician: CHRISTIE DANIELSON Performed By: YolisSagrario patterson RDCS, RVT
[2018-08-20 12:06] LABS: BNP,B-Type NATRIURETIC PEPTIDE 165.3 pg/mL (0-100)
[2018-08-20 12:10] LABS: Lactic Acid 1.6 mmol/L (0.4-2.0)
[2018-08-20 13:02] LABS: Blood Gas Specimen Type ART; SITE LR
[2018-08-20 13:03] LABS: O2 Delivery Device 100
[2018-08-20 13:04] LABS: PO2 161 mmHG (75-100); Time Given 945; pH 7.21 (7.35-7.45)
[2018-08-20 13:05] LABS: Base Excess 1 mmol/L (-2 to +2); Bicarbonate 28.4 mmol/L (22-26); SO2 99 % (95-99); Total Carbon Dioxide 31 mmol/L
[2018-08-20 14:33] LABS: CPK Total, Creatine Kinase 161 U/L (39-308); Triglycerides 118 mg/dL
[2018-08-20] MEDS: Lisinopril 40 MG Tablet PO ×2 (14:53→21:23)
[2018-08-20] MEDS: Ipratropium/Albuterol Sulfate 3 ML AMPUL.NEB INHALATION ×2 (15:14→18:58)
[2018-08-20] MEDS: hydrALAZINE 20 MG/ML Vial 10 MG IV ×3 (15:37→22:58)
[2018-08-20] MEDS: 0.9% NaCl Peripheral Flush Adult/Peds IV ×3 (15:37→22:59)
--- NOTE | 2018-08-20 15:37 | OP.PCM_ITS ---
Problem List (1) Sacroiliitis, not elsewhere classified Status: Chronic (2) Sacrococcygeal disorders, not elsewhere classified Status: Chronic (3) Failed back syndrome of lumbar spine Status: Chronic (4) Degeneration of intervertebral disc of lumbosacral region Status: Chronic Report of Operation Date of Procedure: 08/20/18 Pre-Operative Diagnosis: Lumbosacral spondylosis, sacroiliitis, sacroiliac joint dysfunction Post-Operative Diagnosis: Lumbosacral spondylosis, sacroiliitis, sacroiliac joint dysfunction Surgery/Procedure Performed:: Right sided lumbosacral radiofrequency ablation of the medial/lateral branch at L5, S1, S2, S3 Description of Surgical Findings:: PROCEDURE: Right-sided radiofrequency ablation of the medial/lateral branch L5, S1, S2, S3 PREOPERATIVE DIAGNOSES: Lumbosacral spondylosis, sacroiliitis, sacroiliac joint dysfunction POSTOPERATIVE DIAGNOSES: Lumbosacral spondylosis, sacroiliitis, sacroiliac joint dysfunction ANESTHESIA: MAC COMPLICATIONS: Yes BLOOD LOSS: Minimal PROCEDURE IN DETAIL: History and physical today was reviewed. Risks and benefits of procedure explained. The patient understood, agreed to the procedure and informed consent was obtained. IV inserted per routine protocol. The patient was taken to the operating room, placed in the prone position with a pillow positioned underneath the abdomen. The right side of the lower back and buttock area was prepped and draped in a sterile fashion using iodine x 3. Under fluoroscopy guidance, on AP view, the L5 through S3 and sacroiliac joint were visualized. The skin and subcutaneous tissue was anesthetized with approximately 10 mL of 1% lidocaine using a 25-gauge regular needle. Under direct visualization with fluoroscopy at approximately 15-degree angle, starting on the right L5, ending on the right S3, passing through the S1, S2 lateral branch. Using a 22-gauge 10 cm with a 10 mm curved active tip radiofrequency ablation needle, the needle passed through the skin. The tip of the needle was maneuvered and directed towards the superior and medial gutter of the transverse process at the vicinity of the medial branch. The second needle was then maneuvered and directed towards the sacral ala and the third and fourth needle were then dire cted towards the 2:00 shadow at the S2, S3 area. Once the tip of the needle was at the vicinity of the medial branch/lateral branch, the needle pulled approximately 2 mm up the bone. The stylet of each needle was then removed. The radiofrequency ablation probe was then inserted at each level. After confirmation of AP, oblique as well as lateral view, impedance was then recorded at L5 to be 286, at S1 275, at S2 222, at S3 305 ohm. Motor-evoked potential was then initiated to 1.5 volt without any motor response at each corresponding level. At this point patient appeared to be bradycardic on unable to obtain a pulse oximetry checked with the anesthesia provider which confirmed the above the needle was then removed intact and the patient was turned into supine position CPR was then started by the anesthesia team patient was then transferred to the ICU for further evaluation. ASSESSMENT AND PLAN: This is a 58-year-old male with lumbosacral spondylosis, sacroiliitis, sacroiliac joint dysfunction, status post attempted right sided-sided radiofrequency ablation of the medial/lateral branch L5 through S3. The patient will continue his current medications. The patient will follow up in approximately 2 weeks for reevaluation.
--- NOTE | 2018-08-20 17:04 | PCM.CONS.C ---
Reason for Consult Date of Consultation: 08/20/18 Reason for Consultation: Abnormal cardiac rhythm. Hypertension History of Present Illness: The patient is a 58 year old M who presented to the hospital for an elective outpatient radiofrequency ablation under the discretion of Dr. Stevie Owens. Per the patient's pre-anesthesia report, the patient has a medical history that includes obstructive sleep apnea, hypertension, COPD, tobacco dependency, prior DVT, chronic pain and morbid obesity. The patient was initially admitted to the medical intensive care unit after suffering cardiopulmonary arrest in the OR. Per anesthesia documentation and report, the patient was given 200 mg of propofol prior to being placed in a prone position. The patient then be reportedly became hypoxic and eventually pulseless. The patient did not have any form of an advanced airway in place prior to the initiation of advanced cardiac life support. ACLS was then initiated. The patient was then intubated with a #6.5 endotracheal tube. The patient did receive a one-time shock for pulseless V. tach. It does appear that the entire event concluded in approximately 6 to 7 minutes. ROSC was achieved. The patient was then transferred to the medical intensive care unit for ongoing management. Arterial blood gas obtained immediately following intubation revealed a pH of 7.21 with a corresponding PCO2 of 71 and PO2 of 161. On arrival to the ICU, the patient was noted to be hemodynamically stable. He was alert and agitated. An audible air leak was notable. Therefore, the decision was made to appropriately sedate the patient and proceed with endotracheal tube exchange. The patient received a one-time bolus of propofol, after which time, the patient's #6.5 endotracheal tube was removed and a #7.5 endotracheal tube placed, without complication. Appropriate endotracheal tube placement was confirmed by chest x-ray. EKG was obtained and showed no evidence of ST segment elevation or T wave changes. Initial lab work showed no evidence of a leukocytosis. Chemistry profile was unremarkable. Troponin was negative. While in the intensive care unit the patient was noted to have periods of atrial flutter, intermittent heart block as well as sinus bradycardia. It was unclear why the patient had been on sotalol and he was later on found out that the above medication was being used to treat hypertension. It appears that he has not been very compliant with his outpatient medical follow-up. Cardiology was called to see the patient due to the cardiac dysrhythmias as well as the severe hypertension. Past Medical History Allergies/Adverse Reactions: Allergies Penicillins Allergy (Verified 08/17/18 09:27) Hives pregabalin [From Lyrica] Allergy (Verified 08/17/18 09:27) Hives red dye Allergy (Verified 08/17/18 09:27) Angioedema Home Medications: Ambulatory Orders Medication Instructions Recorded Cephalexin [Keflex] 500 mg PO TID 04/04/13 Clonidine HCl [Catapres] 0.1 mg PO BID 04/04/13 Furosemide [Lasix] 40 mg PO DAILY PRN 04/04/13 Hydrocodone Bitart/Apap 5-325 1 tablet PO 4X/DAY PRN 04/04/13 [[place]burn 5MG-325MG] Lisinopril [Zestril] 40 mg PO BID 04/04/13 Vitamin B Complex 1 each PO DAILY 04/04/13 Albuterol IH (ProAir) [Proair Hfa 1 - 2 puff INHALATION Q6H PRN PRN 08/17/18 (SP)Vent Pts] Aspirin [Aspir 81] 81 mg PO DAILY 08/17/18 Budesonide/Formoterol 160/4.5 2 puff INHALATION BID 08/17/18 [Symbicort 160/4.5 Mcg Inhaler (SP)] Diclofenac [Voltaren] 75 mg PO BIDCM 08/17/18 Sotalol HCl [Sotalol AF] 80 mg PO BID 08/17/18 hydrALAZINE [Apresoline] 50 mg PO BID 08/17/18 Past Medical History (Chronic Problems): Chronic Problems Essential (primary) hypertension (Chronic) Morbid obesity (Chronic) DJD (degenerative joint disease) (Chronic) Sacroiliitis, not elsewhere classified (Chronic) Sacrococcygeal disorders, not elsewhere classified (Chronic) Failed back syndrome of lumbar spine (Chronic) 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) Surgical History: total hip arthroplasty, total knee arthroplasty - *Family History Maternal History Items: - - Unable to obtain patient is on the vent Paternal History Items: - - Unable to obtain patient is on the vent Smoking Status: Current every day smoker Tobacco Use: Cigarettes Review of Systems - Review of Systems General: Denies: Fever, Night Sweats, Fatigue HEENT: Denies: Vision Change Cardiovascular: Denies: Chest Discomfort, Shortness of Breath, Orthopnea, PND, Peripheral Edema, Palpitations, Lightheadedness, Dizziness, Near Syncope, Syncope Respiratory: Denies: Cough, Sputum Production, Hemoptysis Gastrointestinal: Denies: Hematemesis, Hematochezia, Melena Genitourinary: Denies: Dysuria, Hematuria Skin: Denies: Rash Neurological: Denies: Dizziness Psychiatric: Denies: Anxiety Endocrine: Reports: Cold Intolerance - Review of systems was obtained through the significant other. As patient is intubated at this time., Unexplained Weight Loss Subjectve: Intubated middle-aged man Objective: Vital Signs Temp Pulse Resp BP Pulse Ox 96.8 F L 18 L 18 196/149 H 98 08/20/18 12:00 08/20/18 16:10 08/20/18 16:10 08/20/18 15:37 08/20/18 16:10 Oxygen Delivery Method Mechanical Ventilator Weight: 375 lb Body Mass Index (BMI) 49.5 General: Awake, Alert, Oriented x 3 HEENT: PERRL, EOMI, Sclera Non Icteric Neck: Supple, Good ROM, No Lymph Node Enlargement Lungs: Clear to auscultation Cardiovascular: Regular Rhythm, Normal S1, Normal S2, No Murmurs, No Rubs, No Gallops Vascular: No Carotid Bruits, Normal Femoral Pulses, Normal Radial Pulses, Normal Dorsalis Pedal Pulse, Normal Posterior Tibial Pulses Abdomen: Bowel Sounds Present, Soft, Non Tender, No HSM, No Organomegaly Extremities: No Cyanosis, No Clubbing, No edema Musculoskeletal: No Erythema Skin: No Rashes Lymphatic: No Lymph Node Enlargement Neurological: No Focal Motor or Sensory Deficit Psych/Mental Status: Appropriate 08/20/18 09:20: Sodium 138, Potassium 4.1, Chloride 103, Carbon Dioxide 26.0, Anion Gap 9, BUN 17, Creatinine 1.20, Est GFR (MDRD) Af Amer 80, Est GFR (MDRD) Non-Af 66, BUN/Creatinine Ratio 14.2, Glucose 185 H, Calcium 8.3 L, Magnesium 3.0 H, Total Bilirubin 1.00, Troponin I < 0.015 08/20/18 09:45: pH 7.21 L, Bicarbonate Actual 28.4 H, POC Total CO2 31, Base Excess 1, O2 Saturation 99, ABG pCO2 71.0 H*, ABG pO2 161 H, Papi Test NA 08/20/18 10:15: Sodium 138, Potassium 5.0, Chloride 105, Carbon Dioxide 23.0, Anion Gap 10, BUN 15, Creatinine 0.88, Est GFR (MDRD) Af Amer 114, Est GFR (MDRD) Non-Af 95, BUN/Creatinine Ratio 17.1, Glucose 142 H, Calcium 7.4 L, Magnesium 1.7, Total Bilirubin 0.70 08/20/18 10:15: Lactic Acid Cancelled 08/20/18 10:15: WBC 5.3, RBC 4.84, Hgb 13.5, Hct 41.2, MCV 85.1, MCH 27.9, MCHC 32.8, RDW 16.3 H, RDW Differential 50.6 H, Plt Count 185, MPV 12.5 H, Immature Gran % (Auto) 0.200, Neut % (Auto) 57.5, Lymph % (Auto) 27.0, [place] % (Auto) 11.5 H, Eos % (Auto) 3.2, Baso % (Auto) 0.6, Absolute Neuts (auto) 3.1, Total Counted Not Reportable 08/20/18 10:15: B-Natriuretic Peptide 165.3 H 08/20/18 11:28: pH Cancelled, Bicarbonate Actual Cancelled, POC Total CO2 Cancelled, Base Excess Cancelled, O2 Saturation Cancelled, ABG pCO2 Cancelled, ABG pO2 Cancelled, Papi Test Cancelled 08/20/18 11:35: Lactic Acid 1.6 08/20/18 11:35: Troponin I 0.060 H 08/20/18 11:35: Triglycerides 118 08/20/18 11:44: pH 7.31 L, Bicarbonate Actual 27.5 H, POC Total CO2 29, Base Excess 1, O2 Saturation 95, ABG pCO2 54.3 H, ABG pO2 86, Papi Test POS Rhythm: EKG: ECHO: Stress Test: Cardiac Cath: PCI: CT Surgery: Holter monitor: EPS: PPM: CXR: Chest CT Scan: Assessment/Plan 1. Cardiac dysrhythmias Patient is noted to have developed cardiac dysrhythmias. It is not apparent that the patient had previous episodes of the above. At this time I would recommend that we hold the sotalol and see what happens to his heart rate. We may need to restart him on a traditional beta-allie after he is extubated. 2. Hypertension Patient appears to have severe hypertension. Will attempt to control the above as the patient is intubated with intravenous nitroglycerin as well as oral calcium channel blockers and intravenous hydralazine. This will be switched over to oral doses after extubation. Oral clonidine would also continue. It is likely that his respiratory arrest was secondary to his medication used for sedation. Management of the above would be deferred to the loom starter.
--- NOTE | 2018-08-20 17:08 | CON.PCM_ITS ---
Reason for Consult Date of Consultation: 08/20/18 Reason for Consultation: Abnormal cardiac rhythm. Hypertension History of Present Illness: The patient is a 58 year old M who presented to the hospital for an elective outpatient radiofrequency ablation under the discretion of Dr. Stevie Owens. Per the patient's pre-anesthesia report, the patient has a medical history that includes obstructive sleep apnea, hypertension, COPD, tobacco dependency, prior DVT, chronic pain and morbid obesity. The patient was initially admitted to the medical intensive care unit after suffering cardiopulmonary arrest in the OR. Per anesthesia documentation and report, the patient was given 200 mg of propofol prior to being placed in a prone position. The patient then be reportedly became hypoxic and eventually pulseless. The patient did not have any form of an advanced airway in place prior to the initiation of advanced cardiac life support. ACLS was then initiated. The patient was then intubated with a #6.5 endotracheal tube. The patient did receive a one-time shock for pulseless V. tach. It does appear that the entire event concluded in approximately 6 to 7 minutes. ROSC was achieved. The patient was then transferred to the medical intensive care unit for ongoing management. Arterial blood gas obtained immediately following intubation revealed a pH of 7.21 with a corresponding PCO2 of 71 and PO2 of 161. On arrival to the ICU, the patient was noted to be hemodynamically stable. He was alert and agitated. An audible air leak was notable. Therefore, the decision was made to appropriately sedate the patient and proceed with endotracheal tube exchange. The patient received a one-time bolus of propofol, after which time, the patient's #6.5 endotracheal tube was removed and a #7.5 endotracheal tube placed, without complication. Appropriate endotracheal tube placement was confirmed by chest x-ray. EKG was obtained and showed no evidence of ST segment elevation or T wave changes. Initial lab work showed no evidence of a leukocytosis. Chemistry profile was unremarkable. Troponin was negative. While in the intensive care unit the patient was noted to have periods of atrial flutter, intermittent heart block as well as sinus bradycardia. It was unclear why the patient had been on sotalol and he was later on found out that the above medication was being used to treat hypertension. It appears that he has not been very compliant with his outpatient medical follow-up. Cardiology was called to see the patient due to the cardiac dysrhythmias as well as the severe hypertension. Past Medical History Allergies/Adverse Reactions: Allergies Penicillins Allergy (Verified 08/17/18 09:27) Hives pregabalin [From Lyrica] Allergy (Verified 08/17/18 09:27) Hives red dye Allergy (Verified 08/17/18 09:27) Angioedema Home Medications: Ambulatory Orders Medication Instructions Recorded Cephalexin [Keflex] 500 mg PO TID 04/04/13 Clonidine HCl [Catapres] 0.1 mg PO BID 04/04/13 Furosemide [Lasix] 40 mg PO DAILY PRN 04/04/13 Hydrocodone Bitart/Apap 5-325 1 tablet PO 4X/DAY PRN 04/04/13 [[place] 5MG-325MG] Lisinopril [Zestril] 40 mg PO BID 04/04/13 Vitamin B Complex 1 each PO DAILY 04/04/13 Albuterol IH (ProAir) [Proair Hfa 1 - 2 puff INHALATION Q6H PRN PRN 08/17/18 (SP)Vent Pts] Aspirin [Aspir 81] 81 mg PO DAILY 08/17/18 Budesonide/Formoterol 160/4.5 2 puff INHALATION BID 08/17/18 [Symbicort 160/4.5 Mcg Inhaler (SP)] Diclofenac [Voltaren] 75 mg PO BIDCM 08/17/18 Sotalol HCl [Sotalol AF] 80 mg PO BID 08/17/18 hydrALAZINE [Apresoline] 50 mg PO BID 08/17/18 Past Medical History (Chronic Problems): Chronic Problems Essential (primary) hypertension (Chronic) Morbid obesity (Chronic) DJD (degenerative joint disease) (Chronic) Sacroiliitis, not elsewhere classified (Chronic) Sacrococcygeal disorders, not elsewhere classified (Chronic) Failed back syndrome of lumbar spine (Chronic) 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) Surgical History: total hip arthroplasty, total knee arthroplasty - *Family History Maternal History Items: - - Unable to obtain patient is on the vent Paternal History Items: - - Unable to obtain patient is on the vent Smoking Status: Current every day smoker Tobacco Use: Cigarettes Review of Systems - Review of Systems General: Denies: Fever, Night Sweats, Fatigue HEENT: Denies: Vision Change Cardiovascular: Denies: Chest Discomfort, Shortness of Breath, Orthopnea, PND, Peripheral Edema, Palpitations, Lightheadedness, Dizziness, Near Syncope, Syncope Respiratory: Denies: Cough, Sputum Production, Hemoptysis Gastrointestinal: Denies: Hematemesis, Hematochezia, Melena Genitourinary: Denies: Dysuria, Hematuria Skin: Denies: Rash Neurological: Denies: Dizziness Psychiatric: Denies: Anxiety Endocrine: Reports: Cold Intolerance - Review of systems was obtained through the significant other. As patient is intubated at this time., Unexplained Weight Loss Subjectve: Intubated middle-aged man Objective: Vital Signs Temp Pulse Resp BP Pulse Ox 96.8 F L 18 L 18 196/149 H 98 08/20/18 12:00 08/20/18 16:10 08/20/18 16:10 08/20/18 15:37 08/20/18 16:10 Oxygen Delivery Method Mechanical Ventilator Weight: 375 lb Body Mass Index (BMI) 49.5 General: Awake, Alert, Oriented x 3 HEENT: PERRL, EOMI, Sclera Non Icteric Neck: Supple, Good ROM, No Lymph Node Enlargement Lungs: Clear to auscultation Cardiovascular: Regular Rhythm, Normal S1, Normal S2, No Murmurs, No Rubs, No Gallops Vascular: No Carotid Bruits, Normal Femoral Pulses, Normal Radial Pulses, Normal Dorsalis Pedal Pulse, Normal Posterior Tibial Pulses Abdomen: Bowel Sounds Present, Soft, Non Tender, No HSM, No Organomegaly Extremities: No Cyanosis, No Clubbing, No edema Musculoskeletal: No Erythema Skin: No Rashes Lymphatic: No Lymph Node Enlargement Neurological: No Focal Motor or Sensory Deficit Psych/Mental Status: Appropriate 08/20/18 09:20: Sodium 138, Potassium 4.1, Chloride 103, Carbon Dioxide 26.0, Anion Gap 9, BUN 17, Creatinine 1.20, Est GFR (MDRD) Af Amer 80, Est GFR (MDRD) Non-Af 66, BUN/Creatinine Ratio 14.2, Glucose 185 H, Calcium 8.3 L, Magnesium 3.0 H, Total Bilirubin 1.00, Troponin I < 0.015 08/20/18 09:45: pH 7.21 L, Bicarbonate Actual 28.4 H, POC Total CO2 31, Base Excess 1, O2 Saturation 99, ABG pCO2 71.0 H*, ABG pO2 161 H, Papi Test NA 08/20/18 10:15: Sodium 138, Potassium 5.0, Chloride 105, Carbon Dioxide 23.0, Anion Gap 10, BUN 15, Creatinine 0.88, Est GFR (MDRD) Af Amer 114, Est GFR (MDRD) Non-Af 95, BUN/Creatinine Ratio 17.1, Glucose 142 H, Calcium 7.4 L, Magnesium 1.7, Total Bilirubin 0.70 08/20/18 10:15: Lactic Acid Cancelled 08/20/18 10:15: WBC 5.3, RBC 4.84, Hgb 13.5, Hct 41.2, MCV 85.1, MCH 27.9, MCHC 32.8, RDW 16.3 H, RDW Differential 50.6 H, Plt Count 185, MPV 12.5 H, Immature Gran % (Auto) 0.200, Neut % (Auto) 57.5, Lymph % (Auto) 27.0, [place] % (Auto) 11.5 H, Eos % (Auto) 3.2, Baso % (Auto) 0.6, Absolute Neuts (auto) 3.1, Total Counted Not Reportable 08/20/18 10:15: B-Natriuretic Peptide 165.3 H 08/20/18 11:28: pH Cancelled, Bicarbonate Actual Cancelled, POC Total CO2 Cancelled, Base Excess Cancelled, O2 Saturation Cancelled, ABG pCO2 Cancelled, ABG pO2 Cancelled, Papi Test Cancelled 08/20/18 11:35: Lactic Acid 1.6 08/20/18 11:35: Troponin I 0.060 H 08/20/18 11:35: Triglycerides 118 08/20/18 11:44: pH 7.31 L, Bicarbonate Actual 27.5 H, POC Total CO2 29, Base Excess 1, O2 Saturation 95, ABG pCO2 54.3 H, ABG pO2 86, Papi Test POS Rhythm: EKG: ECHO: Stress Test: Cardiac Cath: PCI: CT Surgery: Holter monitor: EPS: PPM: CXR: Chest CT Scan: Assessment/Plan 1. Cardiac dysrhythmias * Patient is noted to have developed cardiac dysrhythmias. It is not apparent that the patient had previous episodes of the above. At this time I would recommend that we hold the sotalol and see what happens to his heart rate. We may need to restart him on a traditional beta-allie after he is extubated. * 2. Hypertension * Patient appears to have severe hypertension. * Will attempt to control the above as the patient is intubated with intravenous nitroglycerin as well as oral calcium channel blockers and intravenous hydralazine. This will be switched over to oral doses after extubation. * Oral clonidine would also continue. * It is likely that his respiratory arrest was secondary to his medication used for sedation. Management of the above would be deferred to the bartender helper.
[2018-08-20] MEDS: amLODIPine 10 MG Tablet NG (17:35)
[2018-08-20] MEDS: cloNIDine HCl 0.1 MG Tablet NG (19:23)
[2018-08-20] MEDS: Famotidine 20 MG Tablet PO (21:23)
[2018-08-20] MEDS: Chlorhexidine 15 ML PO (21:24)
[2018-08-20] MEDS: Enoxaparin 40 MG/0.4 ML Syringe SC (21:24)
[2018-08-20 23:50] LABS: Bedside Glucose 105 mg/dL (70-110)
[2018-08-21] VITALS (41 sets, daily range): BP systolic 117–209; BP diastolic 58–119; PULSE 54–88; RESP 12–31; TEMP 36.6–37.8; O2SAT 92–100
[2018-08-21] MEDS: Propofol 10MG/Ml 1,000 MG/100 ML Bottle 10.206 MG CONT INF (01:04)
[2018-08-21] MEDS: Ipratropium/Albuterol Sulfate 3 ML AMPUL.NEB INHALATION ×3 (01:44→19:21)
[2018-08-21] MEDS: CHLORHEXIDINE GLUC 2% CLOTH 1 EACH TOWELETTE TOPICAL (04:19)
[2018-08-21] MEDS: 0.9% NaCl Peripheral Flush Adult/Peds IV ×5 (04:19→22:03)
[2018-08-21 04:49] LABS: Absolute Lymphocyte Count 1.58 X10^3/ul (0.83-4.51); Absolute Neutrophil Count 6.6 X10^3/uL (2.0-7.7); Basophil# 0.02 X10^3/uL; Basophil% 0.2 % (0-1); Eosinophil# 0.02 X10^3/uL; Eosinophils% 0.2 % (0-5); Hematocrit 46.3 % (40-54); Hemoglobin 15.9 g/dl (13.0-16.5); Lymphocyte # 1.58 X10^3/ul (4.0); Lymphocyte % 16.6 % (19-41); Mean Corp Hgb Conc 34.3 g/gl (32-36); Mean Corpuscular Hgb 28.3 pg (27.0-32.0); Mean Corpuscular Volume 82.5 fL (80-94); Mean Platelet Vol. 11.9 fl (6.2-12.0); Monocyte# 1.33 X10^3/uL; Neutrophil # 6.55 X10^3/uL (2.7-7.7); Neutrophil % 68.9 % (47-70); Platelet Count 180 K/mm3 (150-450); RBC Distribution Width CV 16.4 % (11.6-14.6); RBC Distribution Width SD 49.6 fl (35.1-43.9); Red Blood Count 5.61 M/mm3 (4.6-6.2); White Blood Count 9.5 K/mm3 (4.4-11.0)
[2018-08-21 04:50] LABS: POSITIVE COUNT NO; POSITIVE DIFFERENTIAL NO; POSITIVE MORPHOLOGY NO
[2018-08-21 05:07] LABS: Anion Gap 12 (5-15); BUN 21 mg/dL (7-18); BUN/Creat Ratio 17.1 RATIO (10-20); Calcium,Total 8.5 mg/dL (8.5-10.1); Chloride 102 mmol/L (98-107); Creatinine, Serum 1.23 mg/dL (0.70-1.30); EST Glomerular Filtration Rate 64 mL/min (>60); Est Glom Filt Rate - Afr Amer 77 mL/min (>60); Estimated Creatinine Clearance 73.08 ml/min; Glucose 107 mg/dL (74-106); Magnesium 1.9 mg/dL (1.6-2.6); Potassium 3.9 mmol/L (3.5-5.1); Sodium Level 139 mmol/L (136-145)
[2018-08-21] MEDS: hydrALAZINE 20 MG/ML Vial 10 MG IV (05:46)
--- NOTE | 2018-08-21 06:43 | PN_ITS ---
Subjective: The patient was seen and examined at the bedside this morning. Events from the last 24 hours have been reviewed. The patient is currently afebrile, hemodynamically stable and maintaining appropriate oxygen saturations with an FiO2 requirement of 25%. The patient's blood pressures have remained consistently elevated overnight, despite medical therapy. No significant secretions were noted by respiratory therapy. The patient has done well this morning on his spontaneous breathing trial. He is currently alert, cooperative and appropriately interactive. The patient was therefore able to be extubated this morning at the bedside under my direct supervision. Objective: The patient's most recent lab work, culture data and imaging studies have all been personally reviewed. Surface echocardiogram revealed evidence of stage III diastolic dysfunction and biatrial enlargement. Left ventricular ejection fraction was noted to be 53%. General: Alert, Cooperative, - - Remains intubated and mechanically ventilated. Currently tolerating spontaneous mode of mechanical ventilation without issue. HEENT: Atraumatic, PERRLA, Normocephalic Oral: No Gingival or Mucosal Lesions/ Ulcerations, - - Endotracheal and OG tubes remain in place Neck: Supple, No Nodes, Trachea Midline, - - Large neck circumference with redundant soft tissue. Lungs: No rhonchi, No wheeze, No rales, Diminished Cardiovascular: Normal S1, Normal S2, No murmurs, Irregular Rate Abdomen: Bowel Sounds Present, Soft, Non Tender, Distended, Obese Extremities: No clubbing, No cyanosis, Edema Skin: - - No significant change from previous. Musculoskeletal: No Muscle Wasting Lymphatic: No Cervical, Supraclavicular, or Inguinal Adenopathy Neurological: - - No focal neurological deficits. Alert and following commands appropriately. Vital Signs Temp Pulse Resp BP Pulse Ox 98.8 F 88 25 H 197/117 H 97 08/21/18 04:00 08/21/18 06:00 08/21/18 06:00 08/21/18 06:00 08/21/18 06:00 Oxygen Delivery Method Mechanical Ventilator Weight: 376 lb 1.738 oz Body Mass Index (BMI) 50.1 Intake and Output for Last 24 Hours 08/19/18 08/20/18 08/21/18 23:59 23:59 23:59 Intake Total 675 / 675 170.6 / 170.6 Output Total 700 / 700 550 / 550 Balance -25 / -25 -379.4 / -379.4 Labs (Last 48 Hours) 08/20/18 08/20/18 08/20/18 09:20 09:45 09:45 WBC RBC Hgb Hct MCV MCH MCHC RDW RDW Differential Plt Count MPV Immature Gran % (Auto) Neut % (Auto) Lymph % (Auto) [place] % (Auto) Eos % (Auto) Baso % (Auto) Absolute Neuts (auto) Absolute Lymphs (auto) Total Counted Specimen Type ART Sample Site LR pH 7.21 L Pending Bicarbonate Actual 28.4 H Pending POC Total CO2 31 Pending Base Excess 1 Pending O2 Saturation 99 Pending O2 % ABG pCO2 71.0 H* Pending ABG pO2 161 H Pending Papi Test NA Respiration Rate O2 Delivery Device 100 Liter Flow Minute Volume Vent Mode Tidal Volume POC PEEP POC Pressure Suppt Pressure High Pressure Low Time High Time Low EPAP IPAP Blood Gas Notified Whom OTHER Blood Gas Notified Time 945 Sodium 138 Potassium 4.1 Chloride 103 Carbon Dioxide 26.0 Anion Gap 9 BUN 17 Creatinine 1.20 Estim Creat Clear Calc 74.91 Est GFR (MDRD) Af Amer 80 Est GFR (MDRD) Non-Af 66 BUN/Creatinine Ratio 14.2 Glucose 185 H Lactic Acid Calcium 8.3 L Magnesium 3.0 H Total Bilirubin 1.00 AST 53 H ALT 59 Alkaline Phosphatase 59 Total Creatine Kinase Troponin I < 0.015 B-Natriuretic Peptide Total Protein 7.1 Albumin 3.2 Globulin 3.9 Albumin/Globulin Ratio 0.8 L Triglycerides POC Glucose 08/20/18 08/20/18 08/20/18 10:15 10:15 10:15 WBC 5.3 RBC 4.84 Hgb 13.5 Hct 41.2 MCV 85.1 MCH 27.9 MCHC 32.8 RDW 16.3 H RDW Differential 50.6 H Plt Count 185 MPV 12.5 H Immature Gran % (Auto) 0.200 Neut % (Auto) 57.5 Lymph % (Auto) 27.0 [place] % (Auto) 11.5 H Eos % (Auto) 3.2 Baso % (Auto) 0.6 Absolute Neuts (auto) 3.1 Absolute Lymphs (auto) 1.43 Total Counted Not Reportable Specimen Type Sample Site pH Bicarbonate Actual POC Total CO2 Base Excess O2 Saturation O2 % ABG pCO2 ABG pO2 Papi Test Respiration Rate O2 Delivery Device Liter Flow Minute Volume Vent Mode Tidal Volume POC PEEP POC Pressure Suppt Pressure High Pressure Low Time High Time Low EPAP IPAP Blood Gas Notified Whom Blood Gas Notified Time Sodium 138 Potassium 5.0 Chloride 105 Carbon Dioxide 23.0 Anion Gap 10 BUN 15 Creatinine 0.88 Estim Creat Clear Calc 102.14 Est GFR (MDRD) Af Amer 114 Est GFR (MDRD) Non-Af 95 BUN/Creatinine Ratio 17.1 Glucose 142 H Lactic Acid Cancelled Calcium 7.4 L Magnesium 1.7 Total Bilirubin 0.70 AST 89 H ALT 72 H Alkaline Phosphatase 45 Total Creatine Kinase Troponin I B-Natriuretic Peptide Total Protein 5.4 L Albumin 2.5 L Globulin 2.9 Albumin/Globulin Ratio 0.9 Triglycerides POC Glucose 08/20/18 08/20/18 08/20/18 10:15 11:28 11:35 WBC RBC Hgb Hct MCV MCH MCHC RDW RDW Differential Plt Count MPV Immature Gran % (Auto) Neut % (Auto) Lymph % (Auto) [place] % (Auto) Eos % (Auto) Baso % (Auto) Absolute Neuts (auto) Absolute Lymphs (auto) Total Counted Specimen Type Cancelled Sample Site Cancelled pH Cancelled Bicarbonate Actual Cancelled POC Total CO2 Cancelled Base Excess Cancelled O2 Saturation Cancelled O2 % Cancelled ABG pCO2 Cancelled ABG pO2 Cancelled Papi Test Cancelled Respiration Rate Cancelled O2 Delivery Device Cancelled Liter Flow Cancelled Minute Volume Cancelled Vent Mode Cancelled Tidal Volume Cancelled POC PEEP Cancelled POC Pressure Suppt Cancelled Pressure High Cancelled Pressure Low Cancelled Time High Cancelled Time Low Cancelled EPAP Cancelled IPAP Cancelled Blood Gas Notified Whom Cancelled Blood Gas Notified Time Cancelled Sodium Potassium Chloride Carbon Dioxide Anion Gap BUN Creatinine Estim Creat Clear Calc Est GFR (MDRD) Af Amer Est GFR (MDRD) Non-Af BUN/Creatinine Ratio Glucose Lactic Acid 1.6 Calcium Magnesium Total Bilirubin AST ALT Alkaline Phosphatase Total Creatine Kinase Troponin I B-Natriuretic Peptide 165.3 H Total Protein Albumin Globulin Albumin/Globulin Ratio Triglycerides POC Glucose 08/20/18 08/20/18 08/20/18 11:35 11:35 11:44 WBC RBC Hgb Hct MCV MCH MCHC RDW RDW Differential Plt Count MPV Immature Gran % (Auto) Neut % (Auto) Lymph % (Auto) [place] % (Auto) Eos % (Auto) Baso % (Auto) Absolute Neuts (auto) Absolute Lymphs (auto) Total Counted Specimen Type ART Sample Site L Radial pH 7.31 L Bicarbonate Actual 27.5 H POC Total CO2 29 Base Excess 1 O2 Saturation 95 O2 % 40 ABG pCO2 54.3 H ABG pO2 86 Papi Test POS Respiration Rate 12 O2 Delivery Device Vent Liter Flow Minute Volume Vent Mode A-C Tidal Volume 450 POC PEEP 5 POC Pressure Suppt Pressure High Pressure Low Time High Time Low EPAP IPAP Blood Gas Notified Whom ICU MD Blood Gas Notified Time 1143 Sodium Potassium Chloride Carbon Dioxide Anion Gap BUN Creatinine Estim Creat Clear Calc Est GFR (MDRD) Af Amer Est GFR (MDRD) Non-Af BUN/Creatinine Ratio Glucose Lactic Acid Calcium Magnesium Total Bilirubin AST ALT Alkaline Phosphatase Total Creatine Kinase 161 Troponin I 0.060 H B-Natriuretic Peptide Total Protein Albumin Globulin Albumin/Globulin Ratio Triglycerides 118 POC Glucose 08/20/18 08/20/18 08/21/18 15:30 23:43 04:25 WBC RBC Hgb Hct MCV MCH MCHC RDW RDW Differential Plt Count MPV Immature Gran % (Auto) Neut % (Auto) Lymph % (Auto) [place] % (Auto) Eos % (Auto) Baso % (Auto) Absolute Neuts (auto) Absolute Lymphs (auto) Total Counted Specimen Type Sample Site pH Bicarbonate Actual POC Total CO2 Base Excess O2 Saturation O2 % ABG pCO2 ABG pO2 Papi Test Respiration Rate O2 Delivery Device Liter Flow Minute Volume Vent Mode Tidal Volume POC PEEP POC Pressure Suppt Pressure High Pressure Low Time High Time Low EPAP IPAP Blood Gas Notified Whom Blood Gas Notified Time Sodium 139 Potassium 3.9 Chloride 102 Carbon Dioxide 25.0 Anion Gap 12 BUN 21 H Creatinine 1.23 Estim Creat Clear Calc 73.08 Est GFR (MDRD) Af Amer 77 Est GFR (MDRD) Non-Af 64 BUN/Creatinine Ratio 17.1 Glucose 107 H Lactic Acid Calcium 8.5 Magnesium 1.9 Total Bilirubin AST ALT Alkaline Phosphatase Total Creatine Kinase Troponin I 0.107 H B-Natriuretic Peptide Total Protein Albumin Globulin Albumin/Globulin Ratio Triglycerides POC Glucose 105 08/21/18 04:25 WBC 9.5 RBC 5.61 Hgb 15.9 Hct 46.3 MCV 82.5 MCH 28.3 MCHC 34.3 RDW 16.4 H RDW Differential 49.6 H Plt Count 180 MPV 11.9 Immature Gran % (Auto) 0.100 Neut % (Auto) 68.9 Lymph % (Auto) 16.6 L [place] % (Auto) 14.0 H Eos % (Auto) 0.2 Baso % (Auto) 0.2 Absolute Neuts (auto) 6.6 Absolute Lymphs (auto) 1.58 Total Counted Not Reportable Specimen Type Sample Site pH Bicarbonate Actual POC Total CO2 Base Excess O2 Saturation O2 % ABG pCO2 ABG pO2 Papi Test Respiration Rate O2 Delivery Device Liter Flow Minute Volume Vent Mode Tidal Volume POC PEEP POC Pressure Suppt Pressure High Pressure Low Time High Time Low EPAP IPAP Blood Gas Notified Whom Blood Gas Notified Time Sodium Potassium Chloride Carbon Dioxide Anion Gap BUN Creatinine Estim Creat Clear Calc Est GFR (MDRD) Af Amer Est GFR (MDRD) Non-Af BUN/Creatinine Ratio Glucose Lactic Acid Calcium Magnesium Total Bilirubin AST ALT Alkaline Phosphatase Total Creatine Kinase Troponin I B-Natriuretic Peptide Total Protein Albumin Globulin Albumin/Globulin Ratio Triglycerides POC Glucose Microbiology 08/20/18 15:33 Sputum, Induced/Lukens Gram Stain - Preliminary Clinical Impression(s) from Imaging Studies Chest X-Ray 08/20/18 09:58 IMPRESSION: The tip of the endotracheal tube is at 3.7 cm proximal to the colette. The tip of the oral gastric tube is in the distal portion of the stomach. Cardiomegaly and CHF. Electronically Signed: Celestine Reynolds, at 11:15 EDT , Service support , Medical Necessity - Tobacco Use Smoking Status: Current every day smoker Tobacco Use: Cigarettes Assessment/Plan All Active Problems Cardiopulmonary arrest (Acute) RECOMMENDATIONS: 1. Proceed with a trial of extubation. 2. Once extubated, wean supplemental oxygen to maintain saturations at or above 90%. 3. Perform bedside swallow evaluation and advance diet accordingly. 4. Continue bronchodilators as ordered. Given that the patient utilizes Symbicort, will also add budesonide twice daily. 5. Continue aggressive medical therapy for blood pressure control with the assistance of cardiology. 6. Encourage incentive spirometer use while in bed. Mobilize patient as tolerated. 7. Recommend close outpatient pulmonary follow-up so that baseline PFTs and a diagnostic polysomnogram can be completed. IMPRESSIONS: 1. Acute combined respiratory failure/cardiac arrest with mild troponin elevation I suspect that the precipitating etiology for the patient's cardiac arrest was likely due to respiratory arrest and subsequent hypoxia/hypercarbia in the setting of sedating medication administration. The patient did require emergent intubation and initiation of ACLS prior to achieving ROSC. The patient did have a mild troponin elevation, likely the consequence of the advanced cardiac life support he received. The patient was maintained on invasive mechanical ventilatory support overnight. This morning, the patient was deemed appropriate for a trial of extubation. Once extubated, we will plan to wean supplemental oxygen to maintain saturations at or above 90%. A bedside swallow evaluation can be performed in the patient's diet advanced accordingly. Encourage incentive spirometer use while in bed. Mobilize patient as tolerated. 2. Suspected Obstructive sleep apnea/Questionable COPD/tobacco dependency Upon successful liberation from mechanical ventilatory support, would recommend empiric initiation of BiPAP with naps and nightly. Given that the patient is prescribed Symbicort on an outpatient basis, we will plan to continue bronchodilators and add budesonide twice daily. Wean supplemental oxygen as tolerated. Ideally, the patient should be seen in the pulmonary medicine clinic so that a diagnostic polysomnogram and pulmonary function studies can be obtained. Smoking cessation is strongly advisable. Nicotine replacement therapy can be offered to the patient while admitted to the hospital. 3. Atrial arrhythmia/uncontrolled hypertension/mild troponin elevation/heart failure with preserved ejection fraction The patient was noted to be prescribed sotalol on admission to the ICU. However, the patient had no documented history of atrial fibrillation or ventricular arrhythmias. Following a discussion with staff at the patient's primary care provider, we were informed that the sotalol was being managed by his PCP and that the indication for use was hypertension. He did reportedly see a house registry rn in 2016 at [facility]. 4. Morbid obesity/chronic pain syndrome Complicates care, management, recovery and prognosis. TIME: 40 minutes of critical care time, independent of procedures, was spent addressing the patient's acute combined respiratory failure, cardiopulmonary arrest, obstructive sleep apnea, asthma, tobacco dependency, review of all data and collaboration with the care team. ([id number]) Code Visit [id number]: [id number] Critical care first hour
--- NOTE | 2018-08-21 06:45 | NURSING ---
Pt extubated by RT to 2L NC, pt tolerating well. Minimal secretions with extubation, OG and ETT discontinued, vocal cords intact, cough and gag intact.
--- NOTE | 2018-08-21 07:20 | PCM.PN.HOSP ---
Patient Problems: Active and Suspected Problems Cardiopulmonary arrest (Acute) Subjective: Patient is a 58-year-old gentleman with multiple comorbidities including morbid obesity with BMI of 50, essential hypertension obstructive sleep apnea who went into cardiopulmonary arrest after induction of anesthesia for a back procedure. Successfully resuscitated with ACLS protocol and admitted to the intensive care unit 08/21/2018. Patient weaned off the vent this a.m. Still remains quite lethargic. Blood pressure markedly elevated with systolic blood pressure greater than 190. Patient has been seen in consultation by cardiology Dr. Maria Del Carmen zheng adjusted Objective: GENERAL: Lethargic HEENT: Atraumatic; EYES; Anicteric, Normal Conjunctiva NECK; ET tube in place RESPIRATORY: Diminished to auscultation bilaterally, CARDIOVASCULAR: Regular S1 S2, GI: Protuberant, normoactive bowel sounds, : No Renal angle tenderness; EXTREMITIES: Bipedal edema, no clubbing, NEURO: no lateralizing signs. SKIN: No Rash PSYCH; flat affect Vitals/I&O's: Vital Signs Temp Pulse Resp BP Pulse Ox 98.8 F 82 26 H 197/117 H 95 08/21/18 04:00 08/21/18 06:45 08/21/18 06:45 08/21/18 06:00 08/21/18 06:45 Oxygen Flow Rate (L/min) 2 Oxygen Delivery Method Nasal Cannula Weight: 170.6 kg Body Mass Index (BMI) 50.1 Intake and Output for Last 24 Hours 08/19/18 08/20/18 08/21/18 23:59 23:59 23:59 Intake Total 675 / 675 170.6 / 170.6 Output Total 700 / 700 550 / 550 Balance -25 / -25 -379.4 / -379.4 Microbiology Past 72 Hours 08/20/18 15:33 Sputum, Induced/Lukens Gram Stain - Preliminary Laboratory Results 08/20/18 09:20: Sodium 138, Potassium 4.1, Chloride 103, Carbon Dioxide 26.0, Anion Gap 9, BUN 17, Creatinine 1.20, Estim Creat Clear Calc 74.91, Est GFR (MDRD) Af Amer 80, Est GFR (MDRD) Non-Af 66, BUN/Creatinine Ratio 14.2, Glucose 185 H, Calcium 8.3 L, Magnesium 3.0 H, Total Bilirubin 1.00, AST 53 H, ALT 59, Alkaline Phosphatase 59, Troponin I < 0.015, Total Protein 7.1, Albumin 3.2, Globulin 3.9, Albumin/Globulin Ratio 0.8 L 08/20/18 09:45: Specimen Type ART, Sample Site LR, pH 7.21 L, Bicarbonate Actual 28.4 H, POC Total CO2 31, Base Excess 1, O2 Saturation 99, ABG pCO2 71.0 H*, ABG pO2 161 H, Papi Test NA, O2 Delivery Device 100, Blood Gas Notified Whom OTHER, Blood Gas Notified Time 945 08/20/18 09:45: pH Pending, Bicarbonate Actual Pending, POC Total CO2 Pending, Base Excess Pending, O2 Saturation Pending, ABG pCO2 Pending, ABG pO2 Pending 08/20/18 10:15: Sodium 138, Potassium 5.0, Chloride 105, Carbon Dioxide 23.0, Anion Gap 10, BUN 15, Creatinine 0.88, Estim Creat Clear Calc 102.14, Est GFR (MDRD) Af Amer 114, Est GFR (MDRD) Non-Af 95, BUN/Creatinine Ratio 17.1, Glucose 142 H, Calcium 7.4 L, Magnesium 1.7, Total Bilirubin 0.70, AST 89 H, ALT 72 H, Alkaline Phosphatase 45, Total Protein 5.4 L, Albumin 2.5 L, Globulin 2.9, Albumin/Globulin Ratio 0.9 08/20/18 10:15: Lactic Acid Cancelled 08/20/18 10:15: WBC 5.3, RBC 4.84, Hgb 13.5, Hct 41.2, MCV 85.1, MCH 27.9, MCHC 32.8, RDW 16.3 H, RDW Differential 50.6 H, Plt Count 185, MPV 12.5 H, Immature Gran % (Auto) 0.200, Neut % (Auto) 57.5, Lymph % (Auto) 27.0, [place] % (Auto) 11.5 H, Eos % (Auto) 3.2, Baso % (Auto) 0.6, Absolute Neuts (auto) 3.1, Absolute Lymphs (auto) 1.43, Total Counted Not Reportable 08/20/18 10:15: B-Natriuretic Peptide 165.3 H 08/20/18 11:28: Specimen Type Cancelled, Sample Site Cancelled, pH Cancelled, Bicarbonate Actual Cancelled, POC Total CO2 Cancelled, Base Excess Cancelled, O2 Saturation Cancelled, O2 % Cancelled, ABG pCO2 Cancelled, ABG pO2 Cancelled, Papi Test Cancelled, Respiration Rate Cancelled, O2 Delivery Device Cancelled, Liter Flow Cancelled, Minute Volume Cancelled, Vent Mode Cancelled, Tidal Volume Cancelled, POC PEEP Cancelled, POC Pressure Suppt Cancelled, Pressure High Cancelled, Pressure Low Cancelled, Time High Cancelled, Time Low Cancelled, EPAP Cancelled, IPAP Cancelled, Blood Gas Notified Whom Cancelled, Blood Gas Notified Time Cancelled 08/20/18 11:35: Lactic Acid 1.6 08/20/18 11:35: Troponin I 0.060 H 08/20/18 11:35: Total Creatine Kinase 161, Triglycerides 118 08/20/18 11:44: Specimen Type ART, Sample Site L Radial, pH 7.31 L, Bicarbonate Actual 27.5 H, POC Total CO2 29, Base Excess 1, O2 Saturation 95, O2 % 40, ABG pCO2 54.3 H, ABG pO2 86, Papi Test POS, Respiration Rate 12, O2 Delivery Device Vent, Vent Mode A-C, Tidal Volume 450, POC PEEP 5, Blood Gas Notified Whom ICU MD, Blood Gas Notified Time 1143 08/20/18 15:30: Troponin I 0.107 H 08/20/18 23:43: POC Glucose 105 08/21/18 04:25: Sodium 139, Potassium 3.9, Chloride 102, Carbon Dioxide 25.0, Anion Gap 12, BUN 21 H, Creatinine 1.23, Estim Creat Clear Calc 73.08, Est GFR (MDRD) Af Amer 77, Est GFR (MDRD) Non-Af 64, BUN/Creatinine Ratio 17.1, Glucose 107 H, Calcium 8.5, Magnesium 1.9 08/21/18 04:25: WBC 9.5, RBC 5.61, Hgb 15.9, Hct 46.3, MCV 82.5, MCH 28.3, MCHC 34.3, RDW 16.4 H, RDW Differential 49.6 H, Plt Count 180, MPV 11.9, Immature Gran % (Auto) 0.100, Neut % (Auto) 68.9, Lymph % (Auto) 16.6 L, [place] % (Auto) 14.0 H, Eos % (Auto) 0.2, Baso % (Auto) 0.2, Absolute Neuts (auto) 6.6, Absolute Lymphs (auto) 1.58, Total Counted Not Reportable Current Medications Albuterol Sulfate (Ventolin Aerosols) 2.5 mg INHALATION Q2H PRN PRN PRN Reason: SOB/Wheezing Albuterol/Ipratropium (Duoneb) 3 ml INHALATION Q6H.RT [facility] Last Admin: 08/21/18 06:25 Dose: 3 ml Budesonide (Pulmicort Aerosol) 0.5 mg INHALATION BID.RT [place] Chlorhexidine Gluconate () 15 ml PO BID [facility] Last Admin: 08/20/18 21:24 Dose: 15 ml Chlorhexidine Gluconate () 1 each TOPICAL DAILY [facility] Last Admin: 08/21/18 04:19 Dose: 1 each Clonidine (Catapres) 0.1 mg NG BID [facility] Last Admin: 08/20/18 19:23 Dose: 0.1 mg Dextrose (D50w Syringe) 0 gm IV X1 PRN; Protocol PRN Reason: Hypoglycemia Enoxaparin Sodium (Lovenox) 40 mg SC Q12 [facility] Last Admin: 08/20/18 21:24 Dose: 40 mg Glucagon () 1 mg IM .X1 PRN PRN Reason: Hypoglycemia Hydralazine HCl (Apresoline Iv) 10 mg IV Q4H PRN PRN PRN Reason: SBP GREATER THAN 180 Last Admin: 08/21/18 05:46 Dose: 10 mg Lisinopril (Zestril) 40 mg PO BID [facility] Last Admin: 08/20/18 21:23 Dose: 40 mg Magnesium Hydroxide (Milk Of Magnesia) 30 ml PO DAILY PRN PRN PRN Reason: Constipation Sodium Chloride () 5 - 15 ml IV UD PRN PRN Reason: SALINE FLUSH Last Admin: 08/21/18 05:46 Dose: 10 ml Medical Necessity - Tobacco Use Smoking Status: Current every day smoker Tobacco Use: Cigarettes Assessment/Plan All Active Problems Cardiopulmonary arrest (Acute) Patient is a 58-year-old gentleman with multiple comorbidities including morbid obesity with BMI of 50, essential hypertension obstructive sleep apnea who went into cardiopulmonary arrest after induction of anesthesia for a back procedure. Successfully resuscitated with ACLS protocol and admitted to the intensive care unit 1. Cardiopulmonary arrest patient was successfully resuscitated with ACLS protocol. Per documentation from OR patient first went into asystole followed by Moses tach. He did receive epinephrine as well as synchronized shock. 2. Acute respiratory failure following cardiopulmonary arrest patient was intubated has since been admitted to the intensive care unit consultation placed to Dr. Perez for ICU and vent management 3. Acute congestive heart failure with preserved ejection fraction 2D echo ordered demonstrated EF of 53%. Patient started on Lasix. Ordered serial cardiac enzymes to rule out ischemia as a possible precipitating factor the patient was seen in consultation by cardiology for his notes and recommendations reviewed 4. Acute hypertensive emergency with evidence of endorgan damage (acute congestive heart failure). Patient home medications resumed with dose adjustment. Patient was also placed on PRN hydralazine 3. Mild intermittent asthma 4. Obstructive apnea 5. Previous DVT following vein stripping 6. Tobacco dependence 7. Morbid obesity with BMI of 49.5 8. DVT prophylaxis SC Lovenox dose adjusted for weight Echo Normal LV size. Moderate concentric left ventricular hypertrophy. Left ventricular systolic function is lower limits of normal. The estimated ejection fraction is 53 %. Stage 3 diastolic dysfunction. Contrast injection was performed. Clinical Impression(s) from Imaging Studies Chest X-Ray 08/20/18 09:58 IMPRESSION: The tip of the endotracheal tube is at 3.7 cm proximal to the colette. The tip of the oral gastric tube is in the distal portion of the stomach. Cardiomegaly and CHF. Electronically Signed: Celestine Reynolds, at 11:15 EDT , Service support , Active Medications Albuterol Sulfate (Ventolin Aerosols) 2.5 mg INHALATION Q2H PRN PRN PRN Reason: SOB/Wheezing Albuterol/Ipratropium (Duoneb) 3 ml INHALATION Q6H.RT [facility] Last Admin: 08/21/18 06:25 Dose: 3 ml Budesonide (Pulmicort Aerosol) 0.5 mg INHALATION BID.RT [place] Chlorhexidine Gluconate () 15 ml PO BID [facility] Last Admin: 08/20/18 21:24 Dose: 15 ml Chlorhexidine Gluconate () 1 each TOPICAL DAILY [facility] Last Admin: 08/21/18 04:19 Dose: 1 each Clonidine (Catapres) 0.1 mg NG BID [facility] Last Admin: 08/20/18 19:23 Dose: 0.1 mg Dextrose (D50w Syringe) 0 gm IV X1 PRN; Protocol PRN Reason: Hypoglycemia Enoxaparin Sodium (Lovenox) 40 mg SC Q12 [facility] Last Admin: 08/20/18 21:24 Dose: 40 mg Furosemide (Lasix) 40 mg IV Q8 [facility] Furosemide (Lasix) 40 mg IV X1 ONE Stop: 08/21/18 08:01 Glucagon () 1 mg IM .X1 PRN PRN Reason: Hypoglycemia Hydralazine HCl (Apresoline Iv) 10 mg IV Q4H PRN PRN PRN Reason: SBP GREATER THAN 180 Last Admin: 08/21/18 05:46 Dose: 10 mg Lisinopril (Zestril) 40 mg PO BID [facility] Last Admin: 08/20/18 21:23 Dose: 40 mg Magnesium Hydroxide (Milk Of Magnesia) 30 ml PO DAILY PRN PRN PRN Reason: Constipation Sodium Chloride () 5 - 15 ml IV UD PRN PRN Reason: SALINE FLUSH Last Admin: 08/21/18 05:46 Dose: 10 ml Code Visit Inpatient E&M: 41518 Subs Hosp L3
--- NOTE | 2018-08-21 08:40 | PCM.PN.CARD ---
Subjectve: Patient seen and evaluated Objective: Vital Signs Temp Pulse Resp BP Pulse Ox 98.8 F 82 26 H 197/117 H 95 08/21/18 04:00 08/21/18 06:45 08/21/18 06:45 08/21/18 06:00 08/21/18 06:45 Oxygen Flow Rate (L/min) 2 Oxygen Delivery Method Nasal Cannula Weight: 376 lb 1.738 oz Body Mass Index (BMI) 50.1 Intake and Output for Last 24 Hours 08/19/18 08/20/18 08/21/18 23:59 23:59 23:59 Intake Total 675 / 675 170.6 / 170.6 Output Total 700 / 700 550 / 550 Balance -25 / -25 -379.4 / -379.4 General: Awake, Alert, Oriented x 3 HEENT: PERRL, EOMI, Sclera Non Icteric Neck: Supple, Good ROM, No Lymph Node Enlargement Lungs: Clear to auscultation Cardiovascular: Regular Rhythm, Normal S1, Normal S2, No Murmurs, No Rubs, No Gallops Vascular: No Carotid Bruits, Normal Femoral Pulses, Normal Radial Pulses, Normal Dorsalis Pedal Pulse, Normal Posterior Tibial Pulses Abdomen: Bowel Sounds Present, Soft, Non Tender, No HSM, No Organomegaly Extremities: No Cyanosis, No Clubbing, No edema Lymphatic: No Lymph Node Enlargement Neurological: No Focal Motor or Sensory Deficit 08/20/18 09:20: Sodium 138, Potassium 4.1, Chloride 103, Carbon Dioxide 26.0, Anion Gap 9, BUN 17, Creatinine 1.20, Est GFR (MDRD) Af Amer 80, Est GFR (MDRD) Non-Af 66, BUN/Creatinine Ratio 14.2, Glucose 185 H, Calcium 8.3 L, Magnesium 3.0 H, Total Bilirubin 1.00, Troponin I < 0.015 08/20/18 09:45: pH 7.21 L, Bicarbonate Actual 28.4 H, POC Total CO2 31, Base Excess 1, O2 Saturation 99, ABG pCO2 71.0 H*, ABG pO2 161 H, Papi Test NA 08/20/18 09:45: pH Cancelled, Bicarbonate Actual Cancelled, POC Total CO2 Cancelled, Base Excess Cancelled, O2 Saturation Cancelled, ABG pCO2 Cancelled, ABG pO2 Cancelled, Papi Test Cancelled 08/20/18 10:15: Sodium 138, Potassium 5.0, Chloride 105, Carbon Dioxide 23.0, Anion Gap 10, BUN 15, Creatinine 0.88, Est GFR (MDRD) Af Amer 114, Est GFR (MDRD) Non-Af 95, BUN/Creatinine Ratio 17.1, Glucose 142 H, Calcium 7.4 L, Magnesium 1.7, Total Bilirubin 0.70 08/20/18 10:15: Lactic Acid Cancelled 08/20/18 10:15: WBC 5.3, RBC 4.84, Hgb 13.5, Hct 41.2, MCV 85.1, MCH 27.9, MCHC 32.8, RDW 16.3 H, RDW Differential 50.6 H, Plt Count 185, MPV 12.5 H, Immature Gran % (Auto) 0.200, Neut % (Auto) 57.5, Lymph % (Auto) 27.0, Williams % (Auto) 11.5 H, Eos % (Auto) 3.2, Baso % (Auto) 0.6, Absolute Neuts (auto) 3.1, Total Counted Not Reportable 08/20/18 10:15: B-Natriuretic Peptide 165.3 H 08/20/18 11:28: pH Cancelled, Bicarbonate Actual Cancelled, POC Total CO2 Cancelled, Base Excess Cancelled, O2 Saturation Cancelled, ABG pCO2 Cancelled, ABG pO2 Cancelled, Papi Test Cancelled 08/20/18 11:35: Lactic Acid 1.6 08/20/18 11:35: Troponin I 0.060 H 08/20/18 11:35: Triglycerides 118 08/20/18 11:44: pH 7.31 L, Bicarbonate Actual 27.5 H, POC Total CO2 29, Base Excess 1, O2 Saturation 95, ABG pCO2 54.3 H, ABG pO2 86, Papi Test POS 08/20/18 15:30: Troponin I 0.107 H 08/21/18 04:25: Sodium 139, Potassium 3.9, Chloride 102, Carbon Dioxide 25.0, Anion Gap 12, BUN 21 H, Creatinine 1.23, Est GFR (MDRD) Af Amer 77, Est GFR (MDRD) Non-Af 64, BUN/Creatinine Ratio 17.1, Glucose 107 H, Calcium 8.5, Magnesium 1.9 08/21/18 04:25: WBC 9.5, RBC 5.61, Hgb 15.9, Hct 46.3, MCV 82.5, MCH 28.3, MCHC 34.3, RDW 16.4 H, RDW Differential 49.6 H, Plt Count 180, MPV 11.9, Immature Gran % (Auto) 0.100, Neut % (Auto) 68.9, Lymph % (Auto) 16.6 L, Williams % (Auto) 14.0 H, Eos % (Auto) 0.2, Baso % (Auto) 0.2, Absolute Neuts (auto) 6.6, Total Counted Not Reportable Rhythm: EKG: ECHO: Stress Test: Cardiac Cath: PCI: CT Surgery: Holter monitor: EPS: PPM: CXR: Chest CT Scan: Medical Necessity - Tobacco Use Smoking Status: Current every day smoker Tobacco Use: Cigarettes Assessment/Plan 1. Cardiac dysrhythmias Patient is noted to have developed cardiac dysrhythmias. It is not apparent that the patient had previous episodes of the above. At this time I would recommend that we hold the sotalol and see what happens to his heart rate. Recommend starting metoprolol 50 mg twice a day 2. Hypertension Patient appears to have severe hypertension. Will attempt to control the above with oral hydralazine, oral lisinopril and Norvasc Oral clonidine would also continue. Ejection fraction by echocardiogram was noted to be normal normal. We will continue to follow with you.Thank you for allowing me to participate in the care of your patient. Please don't hesitate to call if any issues arise
--- NOTE | 2018-08-21 09:08 | PN.CARD_ITS ---
Subjectve: Patient seen and evaluated Objective: Vital Signs Temp Pulse Resp BP Pulse Ox 98.8 F 82 26 H 197/117 H 95 08/21/18 04:00 08/21/18 06:45 08/21/18 06:45 08/21/18 06:00 08/21/18 06:45 Oxygen Flow Rate (L/min) 2 Oxygen Delivery Method Nasal Cannula Weight: 376 lb 1.738 oz Body Mass Index (BMI) 50.1 Intake and Output for Last 24 Hours 08/19/18 08/20/18 08/21/18 23:59 23:59 23:59 Intake Total 675 / 675 170.6 / 170.6 Output Total 700 / 700 550 / 550 Balance -25 / -25 -379.4 / -379.4 General: Awake, Alert, Oriented x 3 HEENT: PERRL, EOMI, Sclera Non Icteric Neck: Supple, Good ROM, No Lymph Node Enlargement Lungs: Clear to auscultation Cardiovascular: Regular Rhythm, Normal S1, Normal S2, No Murmurs, No Rubs, No Gallops Vascular: No Carotid Bruits, Normal Femoral Pulses, Normal Radial Pulses, Normal Dorsalis Pedal Pulse, Normal Posterior Tibial Pulses Abdomen: Bowel Sounds Present, Soft, Non Tender, No HSM, No Organomegaly Extremities: No Cyanosis, No Clubbing, No edema Lymphatic: No Lymph Node Enlargement Neurological: No Focal Motor or Sensory Deficit 08/20/18 09:20: Sodium 138, Potassium 4.1, Chloride 103, Carbon Dioxide 26.0, Anion Gap 9, BUN 17, Creatinine 1.20, Est GFR (MDRD) Af Amer 80, Est GFR (MDRD) Non-Af 66, BUN/Creatinine Ratio 14.2, Glucose 185 H, Calcium 8.3 L, Magnesium 3.0 H, Total Bilirubin 1.00, Troponin I < 0.015 08/20/18 09:45: pH 7.21 L, Bicarbonate Actual 28.4 H, POC Total CO2 31, Base Excess 1, O2 Saturation 99, ABG pCO2 71.0 H*, ABG pO2 161 H, Papi Test NA 08/20/18 09:45: pH Cancelled, Bicarbonate Actual Cancelled, POC Total CO2 Cancelled, Base Excess Cancelled, O2 Saturation Cancelled, ABG pCO2 Cancelled, ABG pO2 Cancelled, Papi Test Cancelled 08/20/18 10:15: Sodium 138, Potassium 5.0, Chloride 105, Carbon Dioxide 23.0, Anion Gap 10, BUN 15, Creatinine 0.88, Est GFR (MDRD) Af Amer 114, Est GFR (MDRD) Non-Af 95, BUN/Creatinine Ratio 17.1, Glucose 142 H, Calcium 7.4 L, Magnesium 1.7, Total Bilirubin 0.70 08/20/18 10:15: Lactic Acid Cancelled 08/20/18 10:15: WBC 5.3, RBC 4.84, Hgb 13.5, Hct 41.2, MCV 85.1, MCH 27.9, MCHC 32.8, RDW 16.3 H, RDW Differential 50.6 H, Plt Count 185, MPV 12.5 H, Immature Gran % (Auto) 0.200, Neut % (Auto) 57.5, Lymph % (Auto) 27.0, Pre[place] % (Auto) 11.5 H, Eos % (Auto) 3.2, Baso % (Auto) 0.6, Absolute Neuts (auto) 3.1, Total Counted Not Reportable 08/20/18 10:15: B-Natriuretic Peptide 165.3 H 08/20/18 11:28: pH Cancelled, Bicarbonate Actual Cancelled, POC Total CO2 Cancelled, Base Excess Cancelled, O2 Saturation Cancelled, ABG pCO2 Cancelled, ABG pO2 Cancelled, Papi Test Cancelled 08/20/18 11:35: Lactic Acid 1.6 08/20/18 11:35: Troponin I 0.060 H 08/20/18 11:35: Triglycerides 118 08/20/18 11:44: pH 7.31 L, Bicarbonate Actual 27.5 H, POC Total CO2 29, Base Excess 1, O2 Saturation 95, ABG pCO2 54.3 H, ABG pO2 86, Papi Test POS 08/20/18 15:30: Troponin I 0.107 H 08/21/18 04:25: Sodium 139, Potassium 3.9, Chloride 102, Carbon Dioxide 25.0, Anion Gap 12, BUN 21 H, Creatinine 1.23, Est GFR (MDRD) Af Amer 77, Est GFR (MDRD) Non-Af 64, BUN/Creatinine Ratio 17.1, Glucose 107 H, Calcium 8.5, Magnesium 1.9 08/21/18 04:25: WBC 9.5, RBC 5.61, Hgb 15.9, Hct 46.3, MCV 82.5, MCH 28.3, MCHC 34.3, RDW 16.4 H, RDW Differential 49.6 H, Plt Count 180, MPV 11.9, Immature Gran % (Auto) 0.100, Neut % (Auto) 68.9, Lymph % (Auto) 16.6 L, [place] % (Auto) 14.0 H, Eos % (Auto) 0.2, Baso % (Auto) 0.2, Absolute Neuts (auto) 6.6, Total Counted Not Reportable Rhythm: EKG: ECHO: Stress Test: Cardiac Cath: PCI: CT Surgery: Holter monitor: EPS: PPM: CXR: Chest CT Scan: Medical Necessity - Tobacco Use Smoking Status: Current every day smoker Tobacco Use: Cigarettes Assessment/Plan 1. Cardiac dysrhythmias * Patient is noted to have developed cardiac dysrhythmias. It is not apparent that the patient had previous episodes of the above. At this time I would recommend that we hold the sotalol and see what happens to his heart rate. * Recommend starting metoprolol 50 mg twice a day 2. Hypertension * Patient appears to have severe hypertension. * Will attempt to control the above with oral hydralazine, oral lisinopril and Norvasc * Oral clonidine would also continue. * Ejection fraction by echocardiogram was noted to be normal normal. * * We will continue to follow with you.Thank you for allowing me to participate in the care of your patient. Please don't hesitate to call if any issues arise
[2018-08-21] MEDS: Aspirin E.C. 81 MG Tablet PO (09:57)
[2018-08-21] MEDS: Furosemide 40 MG/4 ML Vial IV ×3 (09:58→22:01)
[2018-08-21] MEDS: Diclofenac 75 MG Tablet PO ×2 (09:58→18:06)
[2018-08-21] MEDS: Metoprolol Tartrate 50 MG Tablet PO (09:59)
[2018-08-21] MEDS: Enoxaparin 40 MG/0.4 ML Syringe SC ×2 (09:59→22:02)
[2018-08-21] MEDS: cloNIDine HCl 0.1 MG Tablet PO ×2 (09:59→22:01)
[2018-08-21] MEDS: hydrALAZINE 50 MG Tablet PO ×2 (09:59→22:01)
[2018-08-21] MEDS: Lisinopril 40 MG Tablet PO ×2 (10:00→22:01)
--- NOTE | 2018-08-21 13:50 | CASEMGMT ---
RN CM HAND STONECUTTER CM to room to meet with patient for initial transition planning/care coordination assessment. RN CM introduced self and role at [facility]. Pt voices understanding and consents to assessment at this time. Pt sitting up in recliner chair in no distress at this time. Girlfriend, Terri, @ bedside. Pt awake when RN CM entered room and answered questions appropriately but would fall asleep on/off during assessment. Awakens easily and able to continue in assessment. Girlfriend also provided some of the information. Care providers, pharmacy, and demographics verified at this time. PCP: Rosalee Specialists: [facility] Pharmacy: [facility] Insurance: MMO Prescription Benefit: Yes Living Will/HPOA: States does not have LW or HCPOA . Interested in more information but states does not want to talk with SW at this time to complete paperwork d/t being so tired. States would talk with SW another time when I'm not so tired. Pt provided with AD info packet and office services manager rac card. GO Abraham, made aware. LNOK: Family lives in [place]. impersonator character on demographics is a friend, Tanna Prescott, and girlfriend who pt lives with, Terri Crowley. Living Arrangements: Lives with girlfriend, Terri, in one story home w/4 steps to enter. Independent w/ADL's. Girlfriend and pt share home mgmt tasks. 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 Transportation: Pt states drives self and states no transportation concerns at this time. DME: Denies using any DME and denies needs. HHC/SNF: No history of SNF. Has used [facility] in the past in 2016. PT/OT evals reviewed and discussed with pt. Pt states he would like to go to [facility] for out-pt therapy. Pt wishes to return home and states has no concerns with going home at time of discharge. CM to follow for any discharge planning/needs. Pt voices no further concerns/needs at this time. Advised pt and girfriend to ask for CM if any further questions/concerns/needs arise. Voices understanding. PLAN: Home w/support of significant other/girlfriend and Out-pt therapy @ [facility]. GO consult for ALVINO SCOTT RN, CM
[2018-08-21] MEDS: Budesonide Respules 0.5 MG/2 ML AMPUL.NEB. INHALATION (19:21)
[2018-08-22] VITALS (29 sets, daily range): BP systolic 130–172; BP diastolic 79–114; PULSE 40–75; RESP 15–66; TEMP 36.2–36.6; O2SAT 92–99
[2018-08-22] MEDS: Ipratropium/Albuterol Sulfate 3 ML AMPUL.NEB INHALATION ×4 (01:42→19:06)
[2018-08-22 03:53] LABS: Absolute Lymphocyte Count 2.55 X10^3/ul (0.83-4.51); Absolute Neutrophil Count 4.8 X10^3/uL (2.0-7.7); Basophil# 0.02 X10^3/uL; Basophil% 0.2 % (0-1); Eosinophil# 0.17 X10^3/uL; Hemoglobin 14.6 g/dl (13.0-16.5); Lymphocyte # 2.55 X10^3/ul (4.0); Lymphocyte % 29.8 % (19-41); Mean Corp Hgb Conc 33.2 g/gl (32-36); Mean Corpuscular Hgb 27.6 pg (27.0-32.0); Mean Corpuscular Volume 83.2 fL (80-94); Mean Platelet Vol. 12.2 fl (6.2-12.0); Monocyte# 0.97 X10^3/uL; Monocyte% 11.3 % (0-10); Neutrophil # 4.82 X10^3/uL (2.7-7.7); Neutrophil % 56.5 % (47-70); POSITIVE COUNT NO; POSITIVE DIFFERENTIAL NO; POSITIVE MORPHOLOGY NO; Platelet Count 163 K/mm3 (150-450); RBC Distribution Width CV 16.4 % (11.6-14.6); RBC Distribution Width SD 49.5 fl (35.1-43.9); Red Blood Count 5.29 M/mm3 (4.6-6.2); White Blood Count 8.6 K/mm3 (4.4-11.0)
[2018-08-22 04:12] LABS: Anion Gap 9 (5-15); BUN 29 mg/dL (7-18); BUN/Creat Ratio 14.4 RATIO (10-20); Calcium,Total 7.8 mg/dL (8.5-10.1); Chloride 105 mmol/L (98-107); Creatinine, Serum 2.02 mg/dL (0.70-1.30); EST Glomerular Filtration Rate 36 mL/min (>60); Est Glom Filt Rate - Afr Amer 44 mL/min (>60); Glucose 104 mg/dL (74-106); Potassium 3.6 mmol/L (3.5-5.1); Sodium Level 142 mmol/L (136-145)
[2018-08-22] MEDS: 0.9% NaCl Peripheral Flush Adult/Peds IV (06:05)
[2018-08-22] MEDS: Furosemide 40 MG/4 ML Vial IV (06:05)
--- NOTE | 2018-08-22 06:38 | PCM.PN.INT ---
Subjective: The patient was seen and examined at the bedside this morning. Events from the last 24 hours have been reviewed. The patient is currently afebrile, hemodynamically stable and maintaining appropriate oxygen saturations on room air. Blood pressures are under better control as compared to yesterday. Overnight, nursing staff reports that the patient did become profoundly bradycardic. Cardiology was notified. His beta-allie was subsequently held. Creatinine is up a bit this morning to 2.02. The patient is currently documented to be overall net -1 L for the admission. Given the patient's renal insufficiency, his lisinopril and Lasix were placed on hold this morning. The patient only reports a mild degree of chest tightness this morning. He denies any significant pain. Unfortunately, the patient only wore his BiPAP last night for approximately 1 hour. Objective: The patient's most recent lab work, culture data and imaging studies have all been personally reviewed. Surface echocardiogram revealed evidence of stage III diastolic dysfunction and biatrial enlargement. Left ventricular ejection fraction was noted to be 53%. Sputum culture appears to be normal respiratory asad. General: Alert, Oriented x3, Cooperative, No apparent distress, - - Morbidly obese. Laying supine in bed. HEENT: Atraumatic, PERRLA, Normocephalic Oral: No Gingival or Mucosal Lesions/ Ulcerations Neck: Supple, No Nodes, Trachea Midline, - - Large neck circumference with redundant soft tissue. Lungs: No rhonchi, No wheeze, No rales, Diminished Cardiovascular: Normal S1, Normal S2, No murmurs, Bradycardic, Irregular Rate Abdomen: Bowel Sounds Present, Soft, Non Tender, Distended, Obese Extremities: No clubbing, No cyanosis, Edema Skin: - - No significant change from previous. Musculoskeletal: No Tenderness to Palpation of Joints or Extremities, No Muscle Wasting Lymphatic: No Cervical, Supraclavicular, or Inguinal Adenopathy Neurological: Cranial nerves II-XII grossly intact, Neuro grossly intact Psych/Mental Status: Alert and oriented to time, place, person, mood and affect Vital Signs Temp Pulse Resp BP Pulse Ox 97.2 F L 66 20 H 159/97 H 95 08/22/18 04:00 08/22/18 06:00 08/22/18 06:00 08/22/18 06:00 08/22/18 06:00 Oxygen Flow Rate (L/min) 2 Oxygen Delivery Method Room Air Weight: 371 lb 14.717 oz Body Mass Index (BMI) 50.1 Intake and Output for Last 24 Hours 08/20/18 08/21/18 08/22/18 23:59 23:59 23:59 Intake Total 675 / 675 1530.6 / 1530.6 240 / 240 Output Total 700 / 700 2750 / 2750 0 / 0 Balance -25 / -25 -1219.4 / -1219.4 240 / 240 Labs (Last 48 Hours) 08/20/18 08/20/18 08/20/18 09:20 09:45 09:45 WBC RBC Hgb Hct MCV MCH MCHC RDW RDW Differential Plt Count MPV Immature Gran % (Auto) Neut % (Auto) Lymph % (Auto) [place] % (Auto) Eos % (Auto) Baso % (Auto) Absolute Neuts (auto) Absolute Lymphs (auto) Total Counted Specimen Type ART Cancelled Sample Site LR Cancelled pH 7.21 L Cancelled Bicarbonate Actual 28.4 H Cancelled POC Total CO2 31 Cancelled Base Excess 1 Cancelled O2 Saturation 99 Cancelled O2 % Cancelled ABG pCO2 71.0 H* Cancelled ABG pO2 161 H Cancelled Papi Test NA Cancelled Respiration Rate Cancelled O2 Delivery Device 100 Cancelled Liter Flow Cancelled Minute Volume Cancelled Vent Mode Cancelled Tidal Volume Cancelled POC PEEP Cancelled POC Pressure Suppt Cancelled Pressure High Cancelled Pressure Low Cancelled Time High Cancelled Time Low Cancelled EPAP Cancelled IPAP Cancelled Blood Gas Notified Whom OTHER Cancelled Blood Gas Notified Time 945 Cancelled Sodium 138 Potassium 4.1 Chloride 103 Carbon Dioxide 26.0 Anion Gap 9 BUN 17 Creatinine 1.20 Estim Creat Clear Calc 74.91 Est GFR (MDRD) Af Amer 80 Est GFR (MDRD) Non-Af 66 BUN/Creatinine Ratio 14.2 Glucose 185 H Lactic Acid Calcium 8.3 L Magnesium 3.0 H Total Bilirubin 1.00 AST 53 H ALT 59 Alkaline Phosphatase 59 Total Creatine Kinase Troponin I < 0.015 B-Natriuretic Peptide Total Protein 7.1 Albumin 3.2 Globulin 3.9 Albumin/Globulin Ratio 0.8 L Triglycerides POC Glucose 08/20/18 08/20/18 08/20/18 10:15 10:15 10:15 WBC 5.3 RBC 4.84 Hgb 13.5 Hct 41.2 MCV 85.1 MCH 27.9 MCHC 32.8 RDW 16.3 H RDW Differential 50.6 H Plt Count 185 MPV 12.5 H Immature Gran % (Auto) 0.200 Neut % (Auto) 57.5 Lymph % (Auto) 27.0 [place] % (Auto) 11.5 H Eos % (Auto) 3.2 Baso % (Auto) 0.6 Absolute Neuts (auto) 3.1 Absolute Lymphs (auto) 1.43 Total Counted Not Reportable Specimen Type Sample Site pH Bicarbonate Actual POC Total CO2 Base Excess O2 Saturation O2 % ABG pCO2 ABG pO2 Papi Test Respiration Rate O2 Delivery Device Liter Flow Minute Volume Vent Mode Tidal Volume POC PEEP POC Pressure Suppt Pressure High Pressure Low Time High Time Low EPAP IPAP Blood Gas Notified Whom Blood Gas Notified Time Sodium 138 Potassium 5.0 Chloride 105 Carbon Dioxide 23.0 Anion Gap 10 BUN 15 Creatinine 0.88 Estim Creat Clear Calc 102.14 Est GFR (MDRD) Af Amer 114 Est GFR (MDRD) Non-Af 95 BUN/Creatinine Ratio 17.1 Glucose 142 H Lactic Acid Cancelled Calcium 7.4 L Magnesium 1.7 Total Bilirubin 0.70 AST 89 H ALT 72 H Alkaline Phosphatase 45 Total Creatine Kinase Troponin I B-Natriuretic Peptide Total Protein 5.4 L Albumin 2.5 L Globulin 2.9 Albumin/Globulin Ratio 0.9 Triglycerides POC Glucose 08/20/18 08/20/18 08/20/18 10:15 11:28 11:35 WBC RBC Hgb Hct MCV MCH MCHC RDW RDW Differential Plt Count MPV Immature Gran % (Auto) Neut % (Auto) Lymph % (Auto) [place] % (Auto) Eos % (Auto) Baso % (Auto) Absolute Neuts (auto) Absolute Lymphs (auto) Total Counted Specimen Type Cancelled Sample Site Cancelled pH Cancelled Bicarbonate Actual Cancelled POC Total CO2 Cancelled Base Excess Cancelled O2 Saturation Cancelled O2 % Cancelled ABG pCO2 Cancelled ABG pO2 Cancelled Papi Test Cancelled Respiration Rate Cancelled O2 Delivery Device Cancelled Liter Flow Cancelled Minute Volume Cancelled Vent Mode Cancelled Tidal Volume Cancelled POC PEEP Cancelled POC Pressure Suppt Cancelled Pressure High Cancelled Pressure Low Cancelled Time High Cancelled Time Low Cancelled EPAP Cancelled IPAP Cancelled Blood Gas Notified Whom Cancelled Blood Gas Notified Time Cancelled Sodium Potassium Chloride Carbon Dioxide Anion Gap BUN Creatinine Estim Creat Clear Calc Est GFR (MDRD) Af Amer Est GFR (MDRD) Non-Af BUN/Creatinine Ratio Glucose Lactic Acid 1.6 Calcium Magnesium Total Bilirubin AST ALT Alkaline Phosphatase Total Creatine Kinase Troponin I B-Natriuretic Peptide 165.3 H Total Protein Albumin Globulin Albumin/Globulin Ratio Triglycerides POC Glucose 08/20/18 08/20/18 08/20/18 11:35 11:35 11:44 WBC RBC Hgb Hct MCV MCH MCHC RDW RDW Differential Plt Count MPV Immature Gran % (Auto) Neut % (Auto) Lymph % (Auto) [place] % (Auto) Eos % (Auto) Baso % (Auto) Absolute Neuts (auto) Absolute Lymphs (auto) Total Counted Specimen Type ART Sample Site L Radial pH 7.31 L Bicarbonate Actual 27.5 H POC Total CO2 29 Base Excess 1 O2 Saturation 95 O2 % 40 ABG pCO2 54.3 H ABG pO2 86 Papi Test POS Respiration Rate 12 O2 Delivery Device Vent Liter Flow Minute Volume Vent Mode A-C Tidal Volume 450 POC PEEP 5 POC Pressure Suppt Pressure High Pressure Low Time High Time Low EPAP IPAP Blood Gas Notified Whom ICU MD Blood Gas Notified Time 1143 Sodium Potassium Chloride Carbon Dioxide Anion Gap BUN Creatinine Estim Creat Clear Calc Est GFR (MDRD) Af Amer Est GFR (MDRD) Non-Af BUN/Creatinine Ratio Glucose Lactic Acid Calcium Magnesium Total Bilirubin AST ALT Alkaline Phosphatase Total Creatine Kinase 161 Troponin I 0.060 H B-Natriuretic Peptide Total Protein Albumin Globulin Albumin/Globulin Ratio Triglycerides 118 POC Glucose 08/20/18 08/20/18 08/21/18 15:30 23:43 04:25 WBC RBC Hgb Hct MCV MCH MCHC RDW RDW Differential Plt Count MPV Immature Gran % (Auto) Neut % (Auto) Lymph % (Auto) [place] % (Auto) Eos % (Auto) Baso % (Auto) Absolute Neuts (auto) Absolute Lymphs (auto) Total Counted Specimen Type Sample Site pH Bicarbonate Actual POC Total CO2 Base Excess O2 Saturation O2 % ABG pCO2 ABG pO2 Papi Test Respiration Rate O2 Delivery Device Liter Flow Minute Volume Vent Mode Tidal Volume POC PEEP POC Pressure Suppt Pressure High Pressure Low Time High Time Low EPAP IPAP Blood Gas Notified Whom Blood Gas Notified Time Sodium 139 Potassium 3.9 Chloride 102 Carbon Dioxide 25.0 Anion Gap 12 BUN 21 H Creatinine 1.23 Estim Creat Clear Calc 73.08 Est GFR (MDRD) Af Amer 77 Est GFR (MDRD) Non-Af 64 BUN/Creatinine Ratio 17.1 Glucose 107 H Lactic Acid Calcium 8.5 Magnesium 1.9 Total Bilirubin AST ALT Alkaline Phosphatase Total Creatine Kinase Troponin I 0.107 H B-Natriuretic Peptide Total Protein Albumin Globulin Albumin/Globulin Ratio Triglycerides POC Glucose 105 08/21/18 08/22/18 08/22/18 04:25 03:28 03:28 WBC 9.5 8.6 RBC 5.61 5.29 Hgb 15.9 14.6 Hct 46.3 44.0 MCV 82.5 83.2 MCH 28.3 27.6 MCHC 34.3 33.2 RDW 16.4 H 16.4 H RDW Differential 49.6 H 49.5 H Plt Count 180 163 MPV 11.9 12.2 H Immature Gran % (Auto) 0.100 0.200 Neut % (Auto) 68.9 56.5 Lymph % (Auto) 16.6 L 29.8 [place] % (Auto) 14.0 H 11.3 H Eos % (Auto) 0.2 2.0 Baso % (Auto) 0.2 0.2 Absolute Neuts (auto) 6.6 4.8 Absolute Lymphs (auto) 1.58 2.55 Total Counted Not Reportable Not Reportable Specimen Type Sample Site pH Bicarbonate Actual POC Total CO2 Base Excess O2 Saturation O2 % ABG pCO2 ABG pO2 Ppai Test Respiration Rate O2 Delivery Device Liter Flow Minute Volume Vent Mode Tidal Volume POC PEEP POC Pressure Suppt Pressure High Pressure Low Time High Time Low EPAP IPAP Blood Gas Notified Whom Blood Gas Notified Time Sodium 142 Potassium 3.6 Chloride 105 Carbon Dioxide 28.0 Anion Gap 9 BUN 29 H Creatinine 2.02 H Estim Creat Clear Calc 44.50 Est GFR (MDRD) Af Amer 44 L Est GFR (MDRD) Non-Af 36 L BUN/Creatinine Ratio 14.4 Glucose 104 Lactic Acid Calcium 7.8 L Magnesium Total Bilirubin AST ALT Alkaline Phosphatase Total Creatine Kinase Troponin I B-Natriuretic Peptide Total Protein Albumin Globulin Albumin/Globulin Ratio Triglycerides POC Glucose Microbiology 08/20/18 15:33 Sputum, Induced/Lukens Gram Stain - Final 08/20/18 15:33 Sputum, Induced/Lukens Respiratory Culture - Preliminary Appears to be normal respiratory asad. Further studies to follow. Clinical Impression(s) from Imaging Studies Lumbar Spine X-Ray 08/20/18 08:00 IMPRESSION: Intraoperative imaging provided for right-sided radiofrequency ablations. Electronically Signed: Celestine Rodolfo, at 14:12 EDT , Service support , Chest X-Ray 08/20/18 09:58 IMPRESSION: The tip of the endotracheal tube is at 3.7 cm proximal to the colette. The tip of the oral gastric tube is in the distal portion of the stomach. Cardiomegaly and CHF. Electronically Signed: Celestine Rodolfo, at 11:15 EDT , Service support , Medical Necessity - Tobacco Use Smoking Status: Current every day smoker Tobacco Use: Cigarettes Assessment/Plan All Active Problems Cardiopulmonary arrest (Acute) RECOMMENDATIONS: 1. Hold LANA inhibitor and diuretics, given renal insufficiency. 2. Hold beta-allie, given bradycardia. 3. Continue bronchodilators and scheduled budesonide. Resume Symbicort at discharge. 4. Continue nicotine replacement therapy. 5. Encourage incentive spirometer use and mobilize patient as tolerated. 6. Perform walking oximetry study prior to consideration for discharge from the hospital. 7. If the patient is agreeable, recommend outpatient pulmonary follow-up so that baseline PFTs and polysomnogram can be obtained. IMPRESSIONS: 1. Acute combined respiratory failure/cardiac arrest with mild troponin elevation I suspect that the precipitating etiology for the patient's cardiac arrest was likely due to respiratory arrest and subsequent hypoxia/hypercarbia in the setting of sedating medication administration. The patient did require emergent intubation and initiation of ACLS prior to achieving ROSC. The patient did have a mild troponin elevation, likely the consequence of the advanced cardiac life support he received. The patient was able to be extubated from invasive mechanical ventilatory support within 24 hours. He has done well from a respiratory perspective and is maintaining appropriate oxygen saturations on room air. The patient will be continued on scheduled bronchodilators and budesonide. Encourage incentive spirometer use while in bed. Mobilize patient as tolerated. 2. Suspected Obstructive sleep apnea/Questionable COPD/tobacco dependency Recommend empiric initiation of BiPAP with naps and nightly, as tolerated by the patient. Given that the patient is prescribed Symbicort on an outpatient basis, we will plan to continue bronchodilators and budesonide twice daily. Ideally, the patient should be seen in the pulmonary medicine clinic so that a diagnostic polysomnogram and pulmonary function studies can be obtained. Smoking cessation is strongly advisable. In the interim, nicotine replacement therapy will be continued. 3. Atrial arrhythmia/uncontrolled hypertension/mild troponin elevation/heart failure with preserved ejection fraction The patient was noted to be prescribed sotalol on admission to the ICU. However, the patient had no documented history of atrial fibrillation or ventricular arrhythmias. Following a discussion with staff at the patient's primary care provider, we were informed that the sotalol was being managed by his PCP and that the indication for use was hypertension. He did reportedly see a flight follower in 2016 at [facility]. The patient has had intermittent episodes of atrial fibrillation/flutter along with variable heart block. His medications are being managed by cardiology accordingly. 4. Acute kidney injury May be secondary to hemodynamic instability in the setting of the patient's cardiac arrest, coupled with LANA inhibitor utilization and diuretic therapy. Potentially nephrotoxic agents have been placed on hold, including the patient's lisinopril and Lasix. Urine output is stable. There is no indication for renal replacement therapy. 5. Morbid obesity/chronic pain syndrome Complicates care, management, recovery and prognosis. This note was generated with [employer] dictation software. It may contain incorrect words, spelling, and punctuation that were not noted in checking the note before signing. DISPOSITION: The patient is medically stable for transfer out of the intensive care unit. Code Visit Inpatient E&M: 95474 Subs Hosp L3
[2018-08-22] MEDS: Budesonide Respules 0.5 MG/2 ML AMPUL.NEB. INHALATION ×2 (07:12→19:06)
--- NOTE | 2018-08-22 07:19 | PCM.PN.HOSP ---
Patient Problems: Active and Suspected Problems Cardiopulmonary arrest (Acute) Subjective: Patient seen remains in ICU. Telemetry monitoring did demonstrate significant bradycardia with heart rate dropping to the high 30s during the night patient was put on both metoprolol and clonidine held. His kidney function also did worsen with creatinine bumping up to 2. Blood pressure still not well controlled Objective: GENERAL: In no distress HEENT: Atraumatic; EYES; Anicteric, Normal Conjunctiva NECK; ET tube in place RESPIRATORY: Diminished to auscultation bilaterally, CARDIOVASCULAR: Regular S1 S2, GI: Protuberant, normoactive bowel sounds, : No Renal angle tenderness; EXTREMITIES: Trace edema, no clubbing, NEURO: no lateralizing signs. SKIN: No Rash PSYCH; flat affect Vitals/I&O's: Vital Signs Temp Pulse Resp BP Pulse Ox 97.2 F L 67 16 160/90 H 98 08/22/18 04:00 08/22/18 07:12 08/22/18 07:12 08/22/18 07:00 08/22/18 07:12 Oxygen Flow Rate (L/min) 2 Oxygen Delivery Method Room Air Weight: 168.7 kg Body Mass Index (BMI) 50.1 Intake and Output for Last 24 Hours 08/20/18 08/21/18 08/22/18 23:59 23:59 23:59 Intake Total 675 / 675 1530.6 / 1530.6 240 / 240 Output Total 700 / 700 2750 / 2750 0 / 0 Balance -25 / -25 -1219.4 / -1219.4 240 / 240 Microbiology Past 72 Hours 08/20/18 15:33 Sputum, Induced/Lukens Gram Stain - Final 08/20/18 15:33 Sputum, Induced/Lukens Respiratory Culture - Preliminary Appears to be normal respiratory asad. Further studies to follow. Laboratory Results 08/20/18 09:45: Specimen Type Cancelled, Sample Site Cancelled, pH Cancelled, Bicarbonate Actual Cancelled, POC Total CO2 Cancelled, Base Excess Cancelled, O2 Saturation Cancelled, O2 % Cancelled, ABG pCO2 Cancelled, ABG pO2 Cancelled, Papi Test Cancelled, Respiration Rate Cancelled, O2 Delivery Device Cancelled, Liter Flow Cancelled, Minute Volume Cancelled, Vent Mode Cancelled, Tidal Volume Cancelled, POC PEEP Cancelled, POC Pressure Suppt Cancelled, Pressure High Cancelled, Pressure Low Cancelled, Time High Cancelled, Time Low Cancelled, EPAP Cancelled, IPAP Cancelled, Blood Gas Notified Whom Cancelled, Blood Gas Notified Time Cancelled 08/22/18 03:28: Sodium 142, Potassium 3.6, Chloride 105, Carbon Dioxide 28.0, Anion Gap 9, BUN 29 H, Creatinine 2.02 H, Estim Creat Clear Calc 44.50, Est GFR (MDRD) Af Amer 44 L, Est GFR (MDRD) Non-Af 36 L, BUN/Creatinine Ratio 14.4, Glucose 104, Calcium 7.8 L 08/22/18 03:28: WBC 8.6, RBC 5.29, Hgb 14.6, Hct 44.0, MCV 83.2, MCH 27.6, MCHC 33.2, RDW 16.4 H, RDW Differential 49.5 H, Plt Count 163, MPV 12.2 H, Immature Gran % (Auto) 0.200, Neut % (Auto) 56.5, Lymph % (Auto) 29.8, [place] % (Auto) 11.3 H, Eos % (Auto) 2.0, Baso % (Auto) 0.2, Absolute Neuts (auto) 4.8, Absolute Lymphs (auto) 2.55, Total Counted Not Reportable Current Medications Hydrocodone Bitart/Acetaminophen ([place] 5mg-325mg) 1 tablet PO 4X/DAY PRN PRN Reason: PAIN Albuterol Sulfate (Ventolin Aerosols) 2.5 mg INHALATION Q2H PRN PRN PRN Reason: SOB/Wheezing Albuterol/Ipratropium (Duoneb) 3 ml INHALATION Q6H.RT [facility], [facility]1983 Last Admin: 08/22/18 07:12 Dose: 3 ml Aspirin (Ecotrin) 81 mg PO DAILY@0800 [facility], [facility] Last Admin: 08/21/18 09:57 Dose: 81 mg Budesonide (Pulmicort Aerosol) 0.5 mg INHALATION BID.RT [facility], [facility] Last Admin: 08/22/18 07:12 Dose: 0.5 mg Chlorhexidine Gluconate () 1 each TOPICAL DAILY [facility], [facility] Last Admin: 08/21/18 04:19 Dose: 1 each Clonidine (Catapres) 0.1 mg PO BID [facility] Last Admin: 08/21/18 22:01 Dose: 0.1 mg Enoxaparin Sodium (Lovenox) 40 mg SC Q12 [facility] Last Admin: 08/21/18 22:02 Dose: 40 mg Hydralazine HCl (Apresoline Iv) 10 mg IV Q4H PRN PRN PRN Reason: SBP GREATER THAN 180 Last Admin: 08/21/18 05:46 Dose: 10 mg Hydralazine HCl (Apresoline) 50 mg PO BID [facility] Last Admin: 08/21/18 22:01 Dose: 50 mg Magnesium Hydroxide (Milk Of Magnesia) 30 ml PO DAILY PRN PRN PRN Reason: Constipation Metoprolol Tartrate (Lopressor (Beta Zac)) 50 mg PO BID [facility] Last Admin: 08/21/18 21:58 Dose: Not Given Nicotine (Nicoderm Cq (Pbkc)) 14 mg TRANSDERM. DAILY [facility] Last Admin: 08/21/18 10:00 Dose: 14 mg Sodium Chloride () 5 - 15 ml IV UD PRN PRN Reason: SALINE FLUSH Last Admin: 08/22/18 06:05 Dose: 10 ml Medical Necessity - Tobacco Use Smoking Status: Current every day smoker Tobacco Use: Cigarettes Assessment/Plan All Active Problems Cardiopulmonary arrest (Acute) Patient is a 58-year-old gentleman with multiple comorbidities including morbid obesity with BMI of 50, essential hypertension obstructive sleep apnea who went into cardiopulmonary arrest after induction of anesthesia for a back procedure. Successfully resuscitated with ACLS protocol and admitted to the intensive care unit 1. Cardiopulmonary arrest patient was successfully resuscitated with ACLS protocol. Per documentation from OR patient first went into asystole followed by V. tach. He did receive epinephrine as well as synchronized shock. 2. Acute respiratory failure following cardiopulmonary arrest patient was intubated has since been admitted to the intensive care unit consultation placed to Dr. Perez for ICU and vent management. Patient was weaned off the vent on the morning of 08/21/2018. Currently remains on supplemental oxygen. 3. Acute congestive heart failure with preserved ejection fraction 2D echo ordered demonstrated EF of 53%. Patient started on Lasix. Ordered serial cardiac enzymes to rule out ischemia as a possible precipitating factor the patient was seen in consultation by cardiology for his notes and recommendations reviewed patient was placed on Lasix which was held on the morning of 08/22/2018 following worsening of his kidney function Echo Normal LV size. Moderate concentric left ventricular hypertrophy. Left ventricular systolic function is lower limits of normal. The estimated ejection fraction is 53 %. Stage 3 diastolic dysfunction. Contrast injection was performed. 4. Acute hypertensive emergency with evidence of endorgan damage (acute congestive heart failure). Patient home medications resumed with dose adjustment. Patient was also placed on PRN hydralazine patient was on lisinopril discontinued in view of his worsening kidney function. Was also on metoprolol and clonidine metoprolol held as a result of patient significant bradycardia initiated amlodipine started 08/22/2018 5. Acute kidney injury do suspect overdiuresis Lasix held patient started on gentle IV fluids also ordered kidney ultrasound 6. Episodic bradycardia medication induced patient was on both clonidine and metoprolol metoprolol has since been held 7. Tobacco dependence counseled on cessation, offered nicotine patch for tobacco cravings 8. Morbid obesity with BMI of 49.5: Weight loss advised 9. Mild intermittent asthma; stable 10. Obstructive apnea; stable 11. Previous DVT following vein stripping 12. DVT prophylaxis SC Lovenox dose adjusted for weight Code Visit Inpatient E&M: 06691 [facility] Hosp L3
--- NOTE | 2018-08-22 08:25 | US_ITS ---
STUDY: RENAL ULTRASOUND - COMPLETE REASON FOR EXAM: Male, 58 years old. Acute renal failure. TECHNIQUE: Ultrasound evaluation of the kidneys was performed with real-time and static rodriguez-scale imaging. COMPARISON: None. FINDINGS: RIGHT KIDNEY: Normal location of the right kidney, which is normal in size. The right kidney measures 13.4 cm x 6.5 cm x 7.0 cm. There is a normal cortex of the right kidney. The renal cortex measures 2.0 cm. 2 renal cysts are seen. The larger measures 3.9 cm x 2.6 cm x 3.2 cm. There are no right renal calculi. There is no right hydronephrosis. DISTAL RIGHT URETER: There is non-visualization of the distal right ureter. There is no demonstrated right ureterovesical junction calculus. There is a visualized right ureteral jet. LEFT KIDNEY: Normal location of the left kidney, which is normal in size. The left kidney measures 12.8 cm x 6.4 cm x 6.0 cm. There is a normal cortex of the left kidney. The renal cortex measures 2.4 cm. There is no left renal mass or cyst. There are no left renal calculi. There is no left hydronephrosis. DISTAL LEFT URETER: There is non-visualization of the distal left ureter. There is no demonstrated left ureterovesical junction calculus. There is a visualized left ureteral jet. BLADDER: The distended urinary bladder has a volume of 153 ml. There is a normal wall thickness of the distended urinary bladder. There is no demonstrated mass within the urinary bladder. There are no demonstrated bladder calculi. US/Kidney and Bladder IMPRESSION: 2 right renal cysts. Electronically Signed: Celestine Reynolds, at 15:38 EDT , Service support ,
[2018-08-22] MEDS: CHLORHEXIDINE GLUC 2% CLOTH 1 EACH TOWELETTE TOPICAL (08:34)
--- NOTE | 2018-08-22 09:00 | PCM.PN.CARD ---
Subjectve: Patient seen and evaluated. Objective: Vital Signs Temp Pulse Resp BP Pulse Ox 97.2 F L 57 L 18 160/90 H 94 08/22/18 04:00 08/22/18 07:33 08/22/18 07:33 08/22/18 07:33 08/22/18 07:33 Oxygen Flow Rate (L/min) 2 Oxygen Delivery Method Room Air Weight: 371 lb 14.717 oz Body Mass Index (BMI) 50.1 Intake and Output for Last 24 Hours 08/20/18 08/21/18 08/22/18 23:59 23:59 23:59 Intake Total 675 / 675 1530.6 / 1530.6 240 / 240 Output Total 700 / 700 2750 / 2750 0 / 0 Balance -25 / -25 -1219.4 / -1219.4 240 / 240 General: Awake, Alert, Oriented x 3 HEENT: PERRL, EOMI, Sclera Non Icteric Neck: Supple, Good ROM, No Lymph Node Enlargement Lungs: Clear to auscultation Cardiovascular: Regular Rhythm, Normal S1, Normal S2, No Murmurs, No Rubs, No Gallops Vascular: No Carotid Bruits, Normal Femoral Pulses, Normal Radial Pulses, Normal Dorsalis Pedal Pulse, Normal Posterior Tibial Pulses Abdomen: Bowel Sounds Present, Soft, Non Tender, No HSM, No Organomegaly Extremities: No Cyanosis, No Clubbing, No edema Neurological: No Focal Motor or Sensory Deficit Psych/Mental Status: Appropriate 08/22/18 03:28: Sodium 142, Potassium 3.6, Chloride 105, Carbon Dioxide 28.0, Anion Gap 9, BUN 29 H, Creatinine 2.02 H, Est GFR (MDRD) Af Amer 44 L, Est GFR (MDRD) Non-Af 36 L, BUN/Creatinine Ratio 14.4, Glucose 104, Calcium 7.8 L 08/22/18 03:28: WBC 8.6, RBC 5.29, Hgb 14.6, Hct 44.0, MCV 83.2, MCH 27.6, MCHC 33.2, RDW 16.4 H, RDW Differential 49.5 H, Plt Count 163, MPV 12.2 H, Immature Gran % (Auto) 0.200, Neut % (Auto) 56.5, Lymph % (Auto) 29.8, [place] % (Auto) 11.3 H, Eos % (Auto) 2.0, Baso % (Auto) 0.2, Absolute Neuts (auto) 4.8, Total Counted Not Reportable Rhythm: EKG: ECHO: Stress Test: Cardiac Cath: PCI: CT Surgery: Holter monitor: EPS: PPM: CXR: Chest CT Scan: Medical Necessity - Tobacco Use Smoking Status: Current every day smoker Tobacco Use: Cigarettes Assessment/Plan 1. Cardiac dysrhythmias Patient is noted to have developed cardiac dysrhythmias. It is not apparent that the patient had previous episodes of the above. At this time I would recommend that we hold the sotalol and see what happens to his heart rate. Recommend reducing metoprolol to 25 mg twice a day He appears to be in atrial flutter and I recommend starting anticoagulation with Eliquis 2.5 mg twice a day 2. Hypertension Patient appears to have severe hypertension. Will attempt to control the above with oral hydralazine, oral lisinopril and Norvasc Oral clonidine would also continue. Ejection fraction by echocardiogram was noted to be normal normal. We will continue to follow with you.Thank you for allowing me to participate in the care of your patient. Please don't hesitate to call if any issues arise
[2018-08-22] MEDS: 0.9% Normal Saline 1,000 ML 75 ML IV ×2 (09:03→21:25)
[2018-08-22] MEDS: Aspirin E.C. 81 MG Tablet PO (09:03)
--- NOTE | 2018-08-22 09:03 | PN.CARD_ITS ---
Subjectve: Patient seen and evaluated. Objective: Vital Signs Temp Pulse Resp BP Pulse Ox 97.2 F L 57 L 18 160/90 H 94 08/22/18 04:00 08/22/18 07:33 08/22/18 07:33 08/22/18 07:33 08/22/18 07:33 Oxygen Flow Rate (L/min) 2 Oxygen Delivery Method Room Air Weight: 371 lb 14.717 oz Body Mass Index (BMI) 50.1 Intake and Output for Last 24 Hours 08/20/18 08/21/18 08/22/18 23:59 23:59 23:59 Intake Total 675 / 675 1530.6 / 1530.6 240 / 240 Output Total 700 / 700 2750 / 2750 0 / 0 Balance -25 / -25 -1219.4 / -1219.4 240 / 240 General: Awake, Alert, Oriented x 3 HEENT: PERRL, EOMI, Sclera Non Icteric Neck: Supple, Good ROM, No Lymph Node Enlargement Lungs: Clear to auscultation Cardiovascular: Regular Rhythm, Normal S1, Normal S2, No Murmurs, No Rubs, No Gallops Vascular: No Carotid Bruits, Normal Femoral Pulses, Normal Radial Pulses, Normal Dorsalis Pedal Pulse, Normal Posterior Tibial Pulses Abdomen: Bowel Sounds Present, Soft, Non Tender, No HSM, No Organomegaly Extremities: No Cyanosis, No Clubbing, No edema Neurological: No Focal Motor or Sensory Deficit Psych/Mental Status: Appropriate 08/22/18 03:28: Sodium 142, Potassium 3.6, Chloride 105, Carbon Dioxide 28.0, Anion Gap 9, BUN 29 H, Creatinine 2.02 H, Est GFR (MDRD) Af Amer 44 L, Est GFR (MDRD) Non-Af 36 L, BUN/Creatinine Ratio 14.4, Glucose 104, Calcium 7.8 L 08/22/18 03:28: WBC 8.6, RBC 5.29, Hgb 14.6, Hct 44.0, MCV 83.2, MCH 27.6, MCHC 33.2, RDW 16.4 H, RDW Differential 49.5 H, Plt Count 163, MPV 12.2 H, Immature Gran % (Auto) 0.200, Neut % (Auto) 56.5, Lymph % (Auto) 29.8, [place] % (Auto) 11.3 H, Eos % (Auto) 2.0, Baso % (Auto) 0.2, Absolute Neuts (auto) 4.8, Total Counted Not Reportable Rhythm: EKG: ECHO: Stress Test: Cardiac Cath: PCI: CT Surgery: Holter monitor: EPS: PPM: CXR: Chest CT Scan: Medical Necessity - Tobacco Use Smoking Status: Current every day smoker Tobacco Use: Cigarettes Assessment/Plan 1. Cardiac dysrhythmias * Patient is noted to have developed cardiac dysrhythmias. It is not apparent that the patient had previous episodes of the above. At this time I would recommend that we hold the sotalol and see what happens to his heart rate. * Recommend reducing metoprolol to 25 mg twice a day * He appears to be in atrial flutter and I recommend starting anticoagulation with Eliquis 2.5 mg twice a day 2. Hypertension * Patient appears to have severe hypertension. * Will attempt to control the above with oral hydralazine, oral lisinopril and Norvasc * Oral clonidine would also continue. * Ejection fraction by echocardiogram was noted to be normal normal. * * We will continue to follow with you.Thank you for allowing me to participate in the care of your patient. Please don't hesitate to call if any issues arise
[2018-08-22] MEDS: cloNIDine HCl 0.1 MG Tablet PO ×2 (09:04→21:31)
[2018-08-22] MEDS: hydrALAZINE 50 MG Tablet PO ×2 (09:04→21:30)
[2018-08-22] MEDS: Metoprolol Tartrate 25 MG Tablet PO ×2 (09:08→21:31)
[2018-08-22] MEDS: amLODIPine 10 MG Tablet PO ×2 (09:10→21:31)
--- NOTE | 2018-08-22 09:20 | CASEMGMT ---
SW spoke with patient about healthcare POA and Healthcare LW. His friend was also present. SW explained documents and let him know it is a good idea to have documents. SW explained he should name someone he trusts that knows his wishes. SW told him SW will leave the documents and if he decides he would like to complete them he can just ask for Social Work. Leigh BARAJAS MSW
[2018-08-22] MEDS: APIXABAN 2.5 MG TABLET PO ×2 (09:41→21:31)
--- NOTE | 2018-08-22 15:08 | NURSING ---
report called transferred per chair with belongings to room 105, family present
[2018-08-22] MEDS: HYDROcodone Bitartrate/Apap 5/325 Tablet PO (21:30)
--- NOTE | 2018-08-22 22:49 | CPS ---
pt declines use of bipap tonight
[2018-08-23 03:00] VITALS: BP 143/92; PULSE 57; PULSE 61; RESP 17; TEMP 36.6; O2SAT 94
[2018-08-23 06:03] LABS: Absolute Neutrophil Count 4.5 X10^3/uL (2.0-7.7); Basophil# 0.02 X10^3/uL; Basophil% 0.2 % (0-1); Eosinophils% 3.7 % (0-5); Hemoglobin 14.4 g/dl (13.0-16.5); Lymphocyte % 27.4 % (19-41); Mean Corp Hgb Conc 32.7 g/gl (32-36); Mean Corpuscular Hgb 28.2 pg (27.0-32.0); Mean Corpuscular Volume 86.3 fL (80-94); Mean Platelet Vol. 10.9 fl (6.2-12.0); Monocyte# 1.05 X10^3/uL; Monocyte% 13.1 % (0-10); Neutrophil # 4.45 X10^3/uL (2.7-7.7); Neutrophil % 55.5 % (47-70); Platelet Count 144 K/mm3 (150-450); RBC Distribution Width CV 16.1 % (11.6-14.6)
[2018-08-23 06:10] LABS: POSITIVE COUNT NO; POSITIVE DIFFERENTIAL NO; POSITIVE MORPHOLOGY NO
[2018-08-23 06:26] LABS: Anion Gap 7 (5-15); BUN 25 mg/dL (7-18); BUN/Creat Ratio 20.7 RATIO (10-20); Calcium,Total 7.8 mg/dL (8.5-10.1); Chloride 108 mmol/L (98-107); Creatinine, Serum 1.21 mg/dL (0.70-1.30); EST Glomerular Filtration Rate 65 mL/min (>60); Est Glom Filt Rate - Afr Amer 79 mL/min (>60); Estimated Creatinine Clearance 74.29 ml/min; Glucose 96 mg/dL (74-106); Potassium 3.5 mmol/L (3.5-5.1); Sodium Level 144 mmol/L (136-145)
[2018-08-23 06:52] VITALS: PULSE 48; RESP 16; O2SAT 98
[2018-08-23] MEDS: Ipratropium/Albuterol Sulfate 3 ML AMPUL.NEB INHALATION (06:52)
[2018-08-23] MEDS: Budesonide Respules 0.5 MG/2 ML AMPUL.NEB. INHALATION (06:52)
[2018-08-23 07:12] VITALS: PULSE 54
[2018-08-23 08:59] VITALS: BP 155/79; PULSE 58; RESP 18; TEMP 36.4; O2SAT 94
--- NOTE | 2018-08-23 09:53 | PCM.DC ---
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 Allergies/Adverse Reactions: Allergies Penicillins Allergy (Verified 08/17/18 09:27) Hives pregabalin [From Lyrica] Allergy (Verified 08/17/18 09:27) Hives red dye Allergy (Verified 08/17/18 09:27) Angioedema Medications to take at Discharge Cephalexin [Keflex] 500 mg PO TID 04/04/13 Clonidine HCl [Catapres] 0.1 mg PO BID 04/04/13 Furosemide [Lasix] 40 mg PO DAILY PRN 04/04/13 Hydrocodone Bitart/Apap 5-325 [[place] 5/325] 1 tablet PO 4X/DAY PRN 04/04/13 Lisinopril [Zestril] 40 mg PO BID 04/04/13 Vitamin B Complex 1 each PO DAILY 04/04/13 Albuterol IH (ProAir) [Proair Hfa] 1 - 2 puff INHALATION Q6H PRN PRN 08/17/18 Aspirin [Aspir 81] 81 mg PO DAILY 08/17/18 Budesonide/Formoterol 160/4.5 [Symbicort 160/4.5 Mcg Inhaler (SP)] 2 puff INHALATION BID 08/17/18 Sildenafil Citrate [Sildenafil] 20 mg PO PRN PRN 08/20/18 Amlodipine [Norvasc] 10 mg PO BID #60 tablet 08/23/18 Apixaban [Eliquis] 2.5 mg PO BID #60 tablet 08/23/18 hydrALAZINE [Apresoline] 50 mg PO TID #90 tablet 08/23/18 The following prescriptions were given: Amlodipine [Norvasc] 10 mg PO BID #60 tablet Apixaban [Eliquis] 2.5 mg PO BID #60 tablet hydrALAZINE [Apresoline] 50 mg PO TID #90 tablet Primary Care Physician: Terry Turk MD [Primary Care Provider] - Please follow up with your Primary Care Physician in: 08/24/2018 Test Results: Test results from this visit will be discussed in further detail at your follow-up appointment, if applicable. Please Follow Up With: Stevie Owens MD When: Call for appointment Proposed Discharge Date: 08/23/18
--- NOTE | 2018-08-23 10:01 | PCM.PN.PUL ---
Subjective: The patient was seen and examined at the bedside this morning. Events from the last 24 hours have been reviewed. The patient is currently afebrile, hemodynamically stable and maintaining appropriate oxygen saturations on room air. The patient declined to use the prescribed BiPAP last night. Creatinine is improved this morning. Objective: The patient's most recent lab work, culture data and imaging studies have all been personally reviewed. Surface echocardiogram revealed evidence of stage III diastolic dysfunction and biatrial enlargement. Left ventricular ejection fraction was noted to be 53%. - Physical Exam General: Alert, Cooperative, No apparent distress HEENT: Atraumatic, PERRLA, Normocephalic Oral: No Gingival or Mucosal Lesions/ Ulcerations Neck: Supple, No Nodes, Trachea Midline Lungs: No rhonchi, No wheeze, No rales, Diminished Cardiovascular: Normal S1, Normal S2, No murmurs, Bradycardic, Irregular Rate Abdomen: Bowel Sounds Present, Soft, Non Tender, Obese Extremities: No clubbing, No cyanosis, Edema Skin: - - No significant change from previous Musculoskeletal: No Tenderness to Palpation of Joints or Extremities Lymphatic: No Cervical, Supraclavicular, or Inguinal Adenopathy Neurological: Cranial nerves II-XII grossly intact, Neuro grossly intact Psych/Mental Status: Normal Affect, Appropriate Vital Signs Temp Pulse Resp BP Pulse Ox 97.5 F L 58 L 18 155/79 H 94 08/23/18 08:59 08/23/18 08:59 08/23/18 08:59 08/23/18 08:59 08/23/18 08:59 Oxygen Flow Rate (L/min) 2 Oxygen Delivery Method Room Air Weight: 373 lb 10.936 oz Body Mass Index (BMI) 50.1 Intake and Output for Last 24 Hours 08/21/18 08/22/18 08/23/18 23:59 23:59 23:59 Intake Total 1530.6 / 1530.6 1342 / 1342 1807 / 1807 Output Total 2750 / 2750 1100 / 1100 200 / 200 Balance -1219.4 / -1219.4 242 / 242 1607 / 1607 Microbiology Past 72 Hours 08/20/18 15:33 Gram Stain - Final Sputum, Induced/[place] Respiratory Culture - Preliminary Alpha Hemolytic Streptococcus Laboratory Tests Past 24 Hrs 08/23/18 08/23/18 05:40 05:40 WBC 8.0 RBC 5.10 Hgb 14.4 Hct 44.0 MCV 86.3 MCH 28.2 MCHC 32.7 RDW 16.1 H RDW Differential 51.0 H Plt Count 144 L MPV 10.9 Immature Gran % (Auto) 0.100 Neut % (Auto) 55.5 Lymph % (Auto) 27.4 [place] % (Auto) 13.1 H Eos % (Auto) 3.7 Baso % (Auto) 0.2 Absolute Neuts (auto) 4.5 Absolute Lymphs (auto) 2.20 Total Counted Not Reportable Sodium 144 Potassium 3.5 Chloride 108 H Carbon Dioxide 29.0 Anion Gap 7 BUN 25 H Creatinine 1.21 Estim Creat Clear Calc 74.29 Est GFR (MDRD) Af Amer 79 Est GFR (MDRD) Non-Af 65 BUN/Creatinine Ratio 20.7 H Glucose 96 Calcium 7.8 L Clinical Impression(s) from Imaging Studies Lumbar Spine X-Ray 08/20/18 08:00 IMPRESSION: Intraoperative imaging provided for right-sided radiofrequency ablations. Electronically Signed: Celestine Reynolds, at 14:12 EDT , Service support , Chest X-Ray 08/20/18 09:58 IMPRESSION: The tip of the endotracheal tube is at 3.7 cm proximal to the colette. The tip of the oral gastric tube is in the distal portion of the stomach. Cardiomegaly and CHF. Electronically Signed: Celestine Reynolds, at 11:15 EDT , Service support , Renal Ultrasound 08/22/18 08:25 IMPRESSION: 2 right renal cysts. Electronically Signed: Celestine Reynolds, at 15:38 EDT , Service support , Medical Necessity - Tobacco Use Smoking Status: Current every day smoker Tobacco Use: Cigarettes Assessment/Plan All Active Problems Cardiopulmonary arrest (Acute) RECOMMENDATIONS: 1. Continue bronchodilators and scheduled budesonide. Resume Symbicort at discharge. 2. Continue nicotine replacement therapy. 3. Encourage incentive spirometer use and mobilize patient as tolerated. 4. Perform walking oximetry study prior to consideration for discharge from the hospital. 5. If the patient is agreeable, recommend outpatient pulmonary follow-up so that baseline PFTs and polysomnogram can be obtained. IMPRESSIONS: 1. Acute combined respiratory failure/cardiac arrest with mild troponin elevation I suspect that the precipitating etiology for the patient's cardiac arrest was likely due to respiratory arrest and subsequent hypoxia/hypercarbia in the setting of sedating medication administration. The patient did require emergent intubation and initiation of ACLS prior to achieving ROSC. The patient did have a mild troponin elevation, likely the consequence of the advanced cardiac life support he received. The patient was able to be extubated from invasive mechanical ventilatory support within 24 hours. He has done well from a respiratory perspective and is maintaining appropriate oxygen saturations on room air. The patient will be continued on scheduled bronchodilators and budesonide. Encourage incentive spirometer use while in bed. Mobilize patient as tolerated. 2. Suspected Obstructive sleep apnea/Questionable COPD/tobacco dependency Recommend empiric initiation of BiPAP with naps and nightly, as tolerated by the patient. Given that the patient is prescribed Symbicort on an outpatient basis, we will plan to continue bronchodilators and budesonide twice daily. Ideally, the patient should be seen in the pulmonary medicine clinic so that a diagnostic polysomnogram and pulmonary function studies can be obtained. Smoking cessation is strongly advisable. In the interim, nicotine replacement therapy will be continued. 3. Atrial arrhythmia/uncontrolled hypertension/mild troponin elevation/heart failure with preserved ejection fraction The patient was noted to be prescribed sotalol on admission to the ICU. However, the patient had no documented history of atrial fibrillation or ventricular arrhythmias. Following a discussion with staff at the patient's primary care provider, we were informed that the sotalol was being managed by his PCP and that the indication for use was hypertension. He did reportedly see a store receiving specialist in 2016 at [facility]. The patient has had intermittent episodes of atrial fibrillation/flutter along with variable heart block. His medications are being managed by cardiology accordingly. 4. Acute kidney injury May be secondary to hemodynamic instability in the setting of the patient's cardiac arrest, coupled with LANA inhibitor utilization and diuretic therapy. Potentially nephrotoxic agents have been placed on hold, including the patient's lisinopril and Lasix. Urine output is stable. There is no indication for renal replacement therapy. 5. Morbid obesity/chronic pain syndrome Complicates care, management, recovery and prognosis. This note was generated with [employer]ure[employer] software. It may contain incorrect words, spelling, and punctuation that were not noted in checking the note before signing. Code Visit Inpatient E&M: 91534 Subs Hosp L2
[2018-08-23 10:02] VITALS: PULSE 62
[2018-08-23] MEDS: cloNIDine HCl 0.1 MG Tablet PO (10:02)
[2018-08-23] MEDS: amLODIPine 10 MG Tablet PO (10:02)
[2018-08-23] MEDS: Metoprolol Tartrate 25 MG Tablet PO (10:02)
[2018-08-23 10:03] VITALS: PULSE 62
[2018-08-23] MEDS: APIXABAN 2.5 MG TABLET PO (10:03)
[2018-08-23] MEDS: hydrALAZINE 50 MG Tablet PO (10:03)
[2018-08-23] MEDS: Aspirin E.C. 81 MG Tablet PO (10:03)
--- NOTE | 2018-08-23 10:03 | DCINST_ITS ---
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 Allergies/Adverse Reactions: Allergies Penicillins Allergy (Verified 08/17/18 09:27) Hives pregabalin [From Lyrica] Allergy (Verified 08/17/18 09:27) Hives red dye Allergy (Verified 08/17/18 09:27) Angioedema Medications to take at Discharge Cephalexin [Keflex] 500 mg PO TID 04/04/13 Clonidine HCl [Catapres] 0.1 mg PO BID 04/04/13 Furosemide [Lasix] 40 mg PO DAILY PRN 04/04/13 Hydrocodone Bitart/Apap 5-325 [[place] 5/325] 1 tablet PO 4X/DAY PRN 04/04/13 Lisinopril [Zestril] 40 mg PO BID 04/04/13 Vitamin B Complex 1 each PO DAILY 04/04/13 Albuterol IH (ProAir) [Proair Hfa] 1 - 2 puff INHALATION Q6H PRN PRN 08/17/18 Aspirin [Aspir 81] 81 mg PO DAILY 08/17/18 Budesonide/Formoterol 160/4.5 [Symbicort 160/4.5 Mcg Inhaler (SP)] 2 puff INHALATION BID 08/17/18 Sildenafil Citrate [Sildenafil] 20 mg PO PRN PRN 08/20/18 Amlodipine [Norvasc] 10 mg PO BID #60 tablet 08/23/18 Apixaban [Eliquis] 2.5 mg PO BID #60 tablet 08/23/18 hydrALAZINE [Apresoline] 50 mg PO TID #90 tablet 08/23/18 The following prescriptions were given: Amlodipine [Norvasc] 10 mg PO BID #60 tablet Apixaban [Eliquis] 2.5 mg PO BID #60 tablet hydrALAZINE [Apresoline] 50 mg PO TID #90 tablet Primary Care Physician: Terry Turk MD [Primary Care Provider] - Please follow up with your Primary Care Physician in: 08/24/2018 Test Results: Test results from this visit will be discussed in further detail at your follow- up appointment, if applicable. Please Follow Up With: Stevie Owens MD When: Call for appointment Proposed Discharge Date: 08/23/18
--- NOTE | 2018-08-23 10:03 | PCM.DC.SUM ---
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 Electronically Signed: Celestine Reynolds, at 14:12 EDT , Service support , Chest X-Ray 08/20/18 09:58 IMPRESSION: The tip of the endotracheal tube is at 3.7 cm proximal to the colette. The tip of the oral gastric tube is in the distal portion of the stomach. Cardiomegaly and CHF. Electronically Signed: Celestine Reynolds, at 11:15 EDT , Service support , Renal Ultrasound 08/22/18 08:25 IMPRESSION: 2 right renal cysts. Electronically Signed: Celestine Reynolds, at 15:38 EDT , Service support , Summary of Care Provided: Patient is a 58-year-old gentleman with multiple comorbidities including morbid obesity with BMI of 50, essential hypertension obstructive sleep apnea who went into cardiopulmonary arrest after induction of anesthesia for a back procedure. Successfully resuscitated with ACLS protocol and admitted to the intensive care unit 1. Cardiopulmonary arrest patient was successfully resuscitated with ACLS protocol. Per documentation from OR patient first went into asystole followed by V. tach. He did receive epinephrine as well as synchronized shock. 2. Acute respiratory failure following cardiopulmonary arrest patient was intubated has since been admitted to the intensive care unit consultation placed to Dr. Perez for ICU and vent management. Patient was weaned off the vent on the morning of 08/21/2018. Currently remains on supplemental oxygen. 3. Acute congestive heart failure with preserved ejection fraction 2D echo ordered demonstrated EF of 53%. Patient started on Lasix. Ordered serial cardiac enzymes to rule out ischemia as a possible precipitating factor the patient was seen in consultation by cardiology for his notes and recommendations reviewed patient was placed on Lasix which was held on the morning of 08/22/2018 following worsening of his kidney function. Lasix was resumed on discharge Echo Normal LV size. Moderate concentric left ventricular hypertrophy. Left ventricular systolic function is lower limits of normal. The estimated ejection fraction is 53 %. Stage 3 diastolic dysfunction. Contrast injection was performed. 4. Acute hypertensive emergency with evidence of endorgan damage (acute congestive heart failure). Patient home medications resumed with dose adjustment. Patient was also placed on PRN hydralazine patient was on lisinopril discontinued in view of his worsening kidney function. Was also on metoprolol and clonidine metoprolol held as a result of patient significant bradycardia initiated amlodipine started 08/22/2018 5. Acute kidney injury do suspect overdiuresis Lasix held patient started on gentle IV fluids also ordered kidney ultrasound with kidney ultrasound demonstrated 2 renal cyst 6. Episodic bradycardia medication induced patient was on both clonidine and metoprolol metoprolol has since been held 7. Tobacco dependence counseled on cessation, offered nicotine patch for tobacco cravings 8. Morbid obesity with BMI of 49.5: Weight loss advised 9. Mild intermittent asthma; stable 10. Obstructive apnea; (suspected) patient undergo sleep study as outpatient 11. Previous DVT following vein stripping 12. DVT prophylaxis SC Lovenox dose adjusted for weight Patient Problems: Active and Suspected Problems Cardiopulmonary arrest (Acute) Objective: GENERAL: In no distress HEENT: Atraumatic; EYES; Anicteric, Normal Conjunctiva NECK; ET tube in place RESPIRATORY: Diminished to auscultation bilaterally, CARDIOVASCULAR: Regular S1 S2, GI: Protuberant, normoactive bowel sounds, : No Renal angle tenderness; EXTREMITIES: Trace edema, no clubbing, NEURO: no lateralizing signs. SKIN: No Rash PSYCH; flat affect - Physical Exam Vital Signs Temp Pulse Resp BP Pulse Ox 97.5 F L 62 18 155/79 H 94 08/23/18 08:59 08/23/18 10:03 08/23/18 08:59 08/23/18 08:59 08/23/18 08:59 Oxygen Flow Rate (L/min) 2 Oxygen Delivery Method Room Air Weight: 169.5 kg Body Mass Index (BMI) 50.1 Intake and Output for Last 24 Hours 08/21/18 08/22/18 08/23/18 23:59 23:59 23:59 Intake Total 1530.6 / 1530.6 1342 / 1342 1807 / 1807 Output Total 2750 / 2750 1100 / 1100 200 / 200 Balance -1219.4 / -1219.4 242 / 242 1607 / 1607 Microbiology Past 72 Hours 08/20/18 15:33 Gram Stain - Final Sputum, Induced/Lukens Respiratory Culture - Preliminary Alpha Hemolytic Streptococcus Laboratory Tests Past 24 Hrs 08/23/18 08/23/18 05:40 05:40 WBC 8.0 RBC 5.10 Hgb 14.4 Hct 44.0 MCV 86.3 MCH 28.2 MCHC 32.7 RDW 16.1 H RDW Differential 51.0 H Plt Count 144 L MPV 10.9 Immature Gran % (Auto) 0.100 Neut % (Auto) 55.5 Lymph % (Auto) 27.4 [place] % (Auto) 13.1 H Eos % (Auto) 3.7 Baso % (Auto) 0.2 Absolute Neuts (auto) 4.5 Absolute Lymphs (auto) 2.20 Total Counted Not Reportable Sodium 144 Potassium 3.5 Chloride 108 H Carbon Dioxide 29.0 Anion Gap 7 BUN 25 H Creatinine 1.21 Estim Creat Clear Calc 74.29 Est GFR (MDRD) Af Amer 79 Est GFR (MDRD) Non-Af 65 BUN/Creatinine Ratio 20.7 H Glucose 96 Calcium 7.8 L Discharge Diet: 2000 mg Sodium Diet Discharge Activity: May not drive while taking narcotic pain medications. Home Medications: Medications to take at Discharge Cephalexin [Keflex] 500 mg PO TID 04/04/13 Clonidine HCl [Catapres] 0.1 mg PO BID 04/04/13 Furosemide [Lasix] 40 mg PO DAILY PRN 04/04/13 Hydrocodone Bitart/Apap 5-325 [[place] 5/325] 1 tablet PO 4X/DAY PRN 04/04/13 Lisinopril [Zestril] 40 mg PO BID 04/04/13 Vitamin B Complex 1 each PO DAILY 04/04/13 Albuterol IH (ProAir) [Proair Hfa] 1 - 2 puff INHALATION Q6H PRN PRN 08/17/18 Aspirin [Aspir 81] 81 mg PO DAILY 08/17/18 Budesonide/Formoterol 160/4.5 [Symbicort 160/4.5 Mcg Inhaler (SP)] 2 puff INHALATION BID 08/17/18 Sildenafil Citrate [Sildenafil] 20 mg PO PRN PRN 08/20/18 Amlodipine [Norvasc] 10 mg PO BID #60 tablet 08/23/18 Apixaban [Eliquis] 2.5 mg PO BID #60 tablet 08/23/18 hydrALAZINE [Apresoline] 50 mg PO TID #90 tablet 08/23/18 Following Prescrptions Were Given to Patient: Amlodipine [Norvasc] 10 mg PO BID #60 tablet Apixaban [Eliquis] 2.5 mg PO BID #60 tablet hydrALAZINE [Apresoline] 50 mg PO TID #90 tablet Primary Care Physician: Terry Turk MD [Primary Care Provider] - Please follow up with your Primary Care Physician in: 08/24/2018 Please Follow Up With: Stevie Owens MD When: Call for appointment Medical Necessity - Tobacco Use Smoking Status: Current every day smoker Tobacco Use: Cigarettes Meaningful Use Info Meaningful Use Diagnoses (Choose all that apply): CHF - CHF LANA/ARB ordered at discharge?: Yes Documented LVEF (%): 60 Code Visit Inpatient E&M: 84637 Disch Hosp
--- NOTE | 2018-08-23 10:06 | DS.PCM_ITS ---
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 Electronically Signed: Celestine Reynolds, at 14:12 EDT , Service support , Chest X-Ray 08/20/18 09:58 IMPRESSION: The tip of the endotracheal tube is at 3.7 cm proximal to the colette. The tip of the oral gastric tube is in the distal portion of the stomach. Cardiomegaly and CHF. Electronically Signed: Celestine Reynolds, at 11:15 EDT , Service support , Renal Ultrasound 08/22/18 08:25 IMPRESSION: 2 right renal cysts. Electronically Signed: Celestine Reynolds, at 15:38 EDT , Service support , Summary of Care Provided: Patient is a 58-year-old gentleman with multiple comorbidities including morbid obesity with BMI of 50, essential hypertension obstructive sleep apnea who went into cardiopulmonary arrest after induction of anesthesia for a back procedure. Successfully resuscitated with ACLS protocol and admitted to the intensive care unit 1. Cardiopulmonary arrest patient was successfully resuscitated with ACLS protocol. Per documentation from OR patient first went into asystole followed by V. tach. He did receive epinephrine as well as synchronized shock. 2. Acute respiratory failure following cardiopulmonary arrest patient was intubated has since been admitted to the intensive care unit consultation placed to Dr. Perez for ICU and vent management. Patient was weaned off the vent on the morning of 08/21/2018. Currently remains on supplemental oxygen. 3. Acute congestive heart failure with preserved ejection fraction 2D echo ordered demonstrated EF of 53%. Patient started on Lasix. Ordered serial cardiac enzymes to rule out ischemia as a possible precipitating factor the patient was seen in consultation by cardiology for his notes and recommendations reviewed patient was placed on Lasix which was held on the morning of 08/22/2018 following worsening of his kidney function. Lasix was resumed on discharge Echo Normal LV size. Moderate concentric left ventricular hypertrophy. Left ventricular systolic function is lower limits of normal. The estimated ejection fraction is 53 %. Stage 3 diastolic dysfunction. Contrast injection was performed. 4. Acute hypertensive emergency with evidence of endorgan damage (acute congestive heart failure). Patient home medications resumed with dose adjustment. Patient was also placed on PRN hydralazine patient was on lisinopril discontinued in view of his worsening kidney function. Was also on metoprolol and clonidine metoprolol held as a result of patient significant bradycardia initiated amlodipine started 08/22/2018 5. Acute kidney injury do suspect overdiuresis Lasix held patient started on gentle IV fluids also ordered kidney ultrasound with kidney ultrasound demonstrated 2 renal cyst 6. Episodic bradycardia medication induced patient was on both clonidine and metoprolol metoprolol has since been held 7. Tobacco dependence counseled on cessation, offered nicotine patch for tobacco cravings 8. Morbid obesity with BMI of 49.5: Weight loss advised 9. Mild intermittent asthma; stable 10. Obstructive apnea; (suspected) patient undergo sleep study as outpatient 11. Previous DVT following vein stripping 12. DVT prophylaxis SC Lovenox dose adjusted for weight Patient Problems: Active and Suspected Problems Cardiopulmonary arrest (Acute) Objective: GENERAL: In no distress HEENT: Atraumatic; EYES; Anicteric, Normal Conjunctiva NECK; ET tube in place RESPIRATORY: Diminished to auscultation bilaterally, CARDIOVASCULAR: Regular S1 S2, GI: Protuberant, normoactive bowel sounds, : No Renal angle tenderness; EXTREMITIES: Trace edema, no clubbing, NEURO: no lateralizing signs. SKIN: No Rash PSYCH; flat affect - Physical Exam Vital Signs Temp Pulse Resp BP Pulse Ox 97.5 F L 62 18 155/79 H 94 08/23/18 08:59 08/23/18 10:03 08/23/18 08:59 08/23/18 08:59 08/23/18 08:59 Oxygen Flow Rate (L/min) 2 Oxygen Delivery Method Room Air Weight: 169.5 kg Body Mass Index (BMI) 50.1 Intake and Output for Last 24 Hours 08/21/18 08/22/18 08/23/18 23:59 23:59 23:59 Intake Total 1530.6 / 1530.6 1342 / 1342 1807 / 1807 Output Total 2750 / 2750 1100 / 1100 200 / 200 Balance -1219.4 / -1219.4 242 / 242 1607 / 1607 Microbiology Past 72 Hours 08/20/18 15:33 Gram Stain - Final Sputum, Induced/Lukens Respiratory Culture - Preliminary Alpha Hemolytic Streptococcus Laboratory Tests Past 24 Hrs 08/23/18 08/23/18 05:40 05:40 WBC 8.0 RBC 5.10 Hgb 14.4 Hct 44.0 MCV 86.3 MCH 28.2 MCHC 32.7 RDW 16.1 H RDW Differential 51.0 H Plt Count 144 L MPV 10.9 Immature Gran % (Auto) 0.100 Neut % (Auto) 55.5 Lymph % (Auto) 27.4 [place] % (Auto) 13.1 H Eos % (Auto) 3.7 Baso % (Auto) 0.2 Absolute Neuts (auto) 4.5 Absolute Lymphs (auto) 2.20 Total Counted Not Reportable Sodium 144 Potassium 3.5 Chloride 108 H Carbon Dioxide 29.0 Anion Gap 7 BUN 25 H Creatinine 1.21 Estim Creat Clear Calc 74.29 Est GFR (MDRD) Af Amer 79 Est GFR (MDRD) Non-Af 65 BUN/Creatinine Ratio 20.7 H Glucose 96 Calcium 7.8 L Discharge Diet: 2000 mg Sodium Diet Discharge Activity: May not drive while taking narcotic pain medications. Home Medications: Medications to take at Discharge Cephalexin [Keflex] 500 mg PO TID 04/04/13 Clonidine HCl [Catapres] 0.1 mg PO BID 04/04/13 Furosemide [Lasix] 40 mg PO DAILY PRN 04/04/13 Hydrocodone Bitart/Apap 5-325 [[place] 5/325] 1 tablet PO 4X/DAY PRN 04/04/13 Lisinopril [Zestril] 40 mg PO BID 04/04/13 Vitamin B Complex 1 each PO DAILY 04/04/13 Albuterol IH (ProAir) [Proair Hfa] 1 - 2 puff INHALATION Q6H PRN PRN 08/17/18 Aspirin [Aspir 81] 81 mg PO DAILY 08/17/18 Budesonide/Formoterol 160/4.5 [Symbicort 160/4.5 Mcg Inhaler (SP)] 2 puff INHALATION BID 08/17/18 Sildenafil Citrate [Sildenafil] 20 mg PO PRN PRN 08/20/18 Amlodipine [Norvasc] 10 mg PO BID #60 tablet 08/23/18 Apixaban [Eliquis] 2.5 mg PO BID #60 tablet 08/23/18 hydrALAZINE [Apresoline] 50 mg PO TID #90 tablet 08/23/18 Following Prescrptions Were Given to Patient: Amlodipine [Norvasc] 10 mg PO BID #60 tablet Apixaban [Eliquis] 2.5 mg PO BID #60 tablet hydrALAZINE [Apresoline] 50 mg PO TID #90 tablet Primary Care Physician: Terry Turk MD [Primary Care Provider] - Please follow up with your Primary Care Physician in: 08/24/2018 Please Follow Up With: Stevie Owens MD When: Call for appointment Medical Necessity - Tobacco Use Smoking Status: Current every day smoker Tobacco Use: Cigarettes Meaningful Use Info Meaningful Use Diagnoses (Choose all that apply): CHF - CHF LANA/ARB ordered at discharge?: Yes Documented LVEF (%): 60 Code Visit Inpatient E&M: 76115 Disch Hosp
--- NOTE | 2018-08-23 10:17 | CASEMGMT ---
This RN CM to room to speak with pt regarding discharge plan. Pt declines OP therapy at this time and states no need for HHC. Pt states no concerns with going home today. Pt awaiting dispo. SStbenjamin CASTILLO CM
== END 2018-08-23 10:39 | disposition home or self-care (01) | DRG 208 ==
LOC: SDC 10:54 → ICU 20:30 → PCU 08-22 14:58
PROVIDERS: Anesthesiology; Anesthesiology Pain Medicine; Internal Medicine Critical Care Medicine; Admitting Provider Internal Medicine; Family Provider Family Medicine; PCP Family Medicine; Referring Provider Internal Medicine; Visit Provider Internal Medicine
DX: J96.01 Acute respiratory failure with hypoxia (principal); I46.9 Cardiac arrest, cause unspecified; I50.31 Acute diastolic (congestive) heart failure; Z68.43 Body mass index [BMI] 50.0-59.9, adult; I16.1 Hypertensive emergency; N17.9 Acute kidney failure, unspecified; I47.2 Ventricular tachycardia; I97.131 Postprocedural heart failure following other surgery; T88.59XA Other complications of anesthesia, initial encounter; T41.1X5A Adverse effect of intravenous anesthetics, initial encounter; Y92.234 Operating room of hospital as the place of occurrence of the external cause; M51.37 Other intervertebral disc degeneration, lumbosacral region; M47.27 Other spondylosis with radiculopathy, lumbosacral region; M51.17 Intervertebral disc disorders with radiculopathy, lumbosacral region; M46.1 Sacroiliitis, not elsewhere classified; M79.10 Myalgia, unspecified site; G89.4 Chronic pain syndrome; J44.9 Chronic obstructive pulmonary disease, unspecified; J45.20 Mild intermittent asthma, uncomplicated; G47.33 Obstructive sleep apnea (adult) (pediatric); Z53.09 Procedure and treatment not carried out because of other contraindication; F17.210 Nicotine dependence, cigarettes, uncomplicated; E66.01 Morbid (severe) obesity due to excess calories; Z79.891 Long term (current) use of opiate analgesic; Z79.01 Long term (current) use of anticoagulants; Z79.82 Long term (current) use of aspirin; Z79.51 Long term (current) use of inhaled steroids; Z79.899 Other long term (current) drug therapy; Z86.718 Personal history of other venous thrombosis and embolism; Z96.642 Presence of left artificial hip joint
CPT/HCPCS: 31500; 31720; 36415; 36600; 71045; 72110; 76000; 76770; 80048; 80053; 82550; 82803; 82962; 83605; 83735; 83880; 84478; 84484; 85025; 87070; 87186; 87205; 93005; 93306; 94002; 94003; 94640; 94660; 95831; 97162; 97166; 97530; 97802; 99251; 99406; J7030; J7120; Q9957; A4216; C8929; G0463; J1940; J3475; J3490

== ENCOUNTER 2018-09-27 20:40 | Observation (INO) | payer OTHER, SELFPAY ==
[2018-09-05 09:17] VITALS: BMI 53.1
[2018-09-27 20:41] VITALS: BP 139/84; PULSE 62; RESP 22; TEMP 36.7; O2SAT 99; BMI 51.3
--- NOTE | 2018-09-27 20:56 | EKG12_ITS ---
Test Reason : CP Blood Pressure : / mmHG Vent. Rate : 056 BPM Atrial Rate : 092 BPM P-R Int : 000 ms QRS Dur : 096 ms QT Int : 438 ms P-R-T Axes : 000 070 090 degrees QTc Int : 422 ms Atrial fibrillation with slow ventricular response Abnormal ECG Confirmed by MOSES GILMORE, OALF ([id number]), technical writer and editor CHARLA PETERSON ([id number]) on 09/28/2018 12:20:32 PM Referred By: Christianne Barkley Confirmed By:OLAF LOPES MD
--- NOTE | 2018-09-27 21:00 | RAD_ITS ---
STUDY: X-RAY CHEST REASON FOR EXAM: Male, 58 years old. Shortness of breath. TECHNIQUE: Single AP portable view of the chest. COMPARISON: August 20, 2018. FINDINGS: Cardiomegaly. Pulmonary vascularity prominent. Aorta unremarkable. Diffuse hazy airspace disease. No significant pleural effusions. Upper abdomen unremarkable. Osseous structures intact. No pneumothorax. RAD/Chest 1 View (Portable) IMPRESSION: Mild CHF/fluid overload Airspace disease presumed pulmonary edema Cardiomegaly Electronically Signed: Ward Fleming DO at 21:45 EDT Tel , Service support ,
[2018-09-27] MEDS: Ipratropium/Albuterol Sulfate 3 ML AMPUL.NEB INHALATION (21:06)
[2018-09-27 21:09] VITALS: PULSE 52; RESP 20
--- NOTE | 2018-09-27 21:14 | ED.VISSUMM ---
- ER Visit Summary Date of Service: 09/27/18 Chief Complaint: [Shortness of breath] History of Present Illness: The patient is a 58 M [resents to the emergency department shortness of breath started earlier today. Patient states he is gained about 7 pounds in the last 24 hours. Patient was in [place] last week and diagnosed with pneumonia. He had a follow-up appointment with his physician yesterday and was doing relatively well. He describes some chest tightness diffusely. He denies any fevers. He does describe exertional dyspnea. Patient has history of COPD, CHF, hypertension, A. fib, and recent cardiopulmonary arrest on August 20.] Physical Examination: [HEENT-PERRLA, EOMI. Cranial nerves II through XII grossly intact. TMs clear. Mucous membranes moist. No adenopathy. Cardiovascular-regular rate and rhythm without murmur or ectopy Lungs-rales in the bases. Patient has some coarse rhonchi bilaterally. No accessory muscle use or retractions. Abdomen-normoactive bowel sounds, soft, nontender, no rebound or rigidity, no peritoneal signs. Extremities-intact ?4, normal range of motion, normal pulses, atraumatic. Patient has +2 edema both lower extremities that is symmetric.] Test Results: [EKG obtained on arrival showed atrial fibrillation with a ventricular rate of 56 bpm] CBC with differential showing of 8.3, hemoglobin 13, hematocrit 41, platelets 203. Chemistries unremarkable. Troponin is less than 0.15. BNP was 309. Chest x-ray initially read as cardiomegaly and CHF. D-dimer was elevated therefore CT of the chest was obtained to rule out PE this was negative for PE or dissection but did show pulmonary edema. Emergency Department Course and Treatment: [Patient was given Lasix 80 mg IV] Treatment Plan: [Admit for diuresis] Disposition: [Admit] Impression: [CHF exacerbation Dyspnea] This note was generated with [employer] dictation software. It may contain incorrect words, spelling, and punctuation that were not noted in review of the chart prior to signing ED Disposition - Plan for ED Patient: Referrals: Terry Turk MD [Primary Care Provider] -
[2018-09-27 21:17] LABS: Absolute Lymphocyte Count 1.84 X10^3/ul (0.83-4.51); Absolute Neutrophil Count 4.8 X10^3/uL (2.0-7.7); Basophil# 0.02 X10^3/uL; Basophil% 0.2 % (0-1); Eosinophil# 0.28 X10^3/uL; Eosinophils% 3.4 % (0-5); Hematocrit 41.2 % (40-54); Hemoglobin 13.5 g/dl (13.0-16.5); Lymphocyte # 1.84 X10^3/ul (4.0); Lymphocyte % 22.1 % (19-41); Mean Corp Hgb Conc 32.8 g/gl (32-36); Mean Corpuscular Hgb 28.1 pg (27.0-32.0); Mean Corpuscular Volume 85.7 fL (80-94); Mean Platelet Vol. 11.2 fl (6.2-12.0); Monocyte# 1.34 X10^3/uL; Monocyte% 16.1 % (0-10); Neutrophil # 4.82 X10^3/uL (2.7-7.7); Neutrophil % 58.1 % (47-70); Platelet Count 203 K/mm3 (150-450); RBC Distribution Width CV 15.6 % (11.6-14.6); RBC Distribution Width SD 49.1 fl (35.1-43.9); Red Blood Count 4.81 M/mm3 (4.6-6.2); White Blood Count 8.3 K/mm3 (4.4-11.0)
[2018-09-27 21:19] LABS: POSITIVE COUNT NO; POSITIVE DIFFERENTIAL NO; POSITIVE MORPHOLOGY NO
[2018-09-27 21:20] LABS: Anion Gap 6 (5-15); BUN 20 mg/dL (7-18); BUN/Creat Ratio 16.3 RATIO (10-20); Calcium,Total 8.7 mg/dL (8.5-10.1); Chloride 107 mmol/L (98-107); Creatinine, Serum 1.23 mg/dL (0.70-1.30); EST Glomerular Filtration Rate 64 mL/min (>60); Est Glom Filt Rate - Afr Amer 77 mL/min (>60); Estimated Creatinine Clearance 73.08 ml/min; Glucose 94 mg/dL (74-106); Potassium 4.1 mmol/L (3.5-5.1); Sodium Level 140 mmol/L (136-145)
[2018-09-27 21:39] LABS: Lactic Acid 1.3 mmol/L (0.4-2.0)
[2018-09-27 21:48] LABS: BNP,B-Type NATRIURETIC PEPTIDE 309.1 pg/mL (0-100)
--- NOTE | 2018-09-27 21:54 | CT_ITS ---
STUDY: CTA CHEST REASON FOR EXAM: Male, 58 years old. Shortness of breath. Chest x-ray. Recent travel. RADIATION DOSAGE (If Supplied By Facility): CTDIvol = ( 16.22 ) mGy, DLP = ( 570.72 ) mGycm TECHNIQUE: The examination was performed with the intravenous administration of 100 IV Isovue 370. Post-processing of the angiographic images was performed, with multiplanar reformation and 3D reconstruction. Individualized dose optimization techniques were used for this CT. COMPARISON: Chest x-ray. FINDINGS: There is limited enhancement of the main pulmonary artery and right and left pulmonary arteries. There is limited enhancement of the bilateral peripheral pulmonary arteries. There is no demonstrated pulmonary embolism. Normal thoracic aorta and visualized great vessels. There is no demonstrated aortic dissection. There is cardiomegaly. There are enlarged mediastinal and bilateral hilar lymph nodes measuring 1.5 to 2.5 cm.. Normal visualized trachea and bronchi. The lungs are well expanded. There is emphysema in the lungs. There is mild interstitial accentuation. There is right lower lung atelectasis.. Normal pleura. Normal chest wall structures. There are degenerative changes of thoracic spine. There is hepatomegaly with diffuse hepatic enlargement. CT/CTA Chest W/WO Contrast IMPRESSION: CTA chest examination, without a demonstrated pulmonary embolism or arterial dissection. Mildly enlarged mediastinal lymph nodes. Interstitial edema or fibrosis. Cardiac enlargement. Electronically Signed: Daljit Saunders MD at 22:39 EDT , Service support ,
[2018-09-27] MEDS: Furosemide 100 MG/10 ML Vial 80 MG IV (22:17)
[2018-09-27 22:18] VITALS: BP 161/88; PULSE 54; RESP 22; O2SAT 96
--- NOTE | 2018-09-27 22:52 | HP.PCM_ITS ---
Problem List (1) Morbid obesity Status: Chronic (2) Paroxysmal atrial fibrillation Status: Chronic (3) Diastolic dysfunction with acute on chronic heart failure Status: Acute (4) Nicotine dependence Status: Chronic Qualifiers: Substance use status: in remission (5) Essential (primary) hypertension Status: Chronic History of Present Illness Date of Admission: 09/27/18 Chief Complaint: Shortness of breath - 2 days The patient is a 58 year old M's medical history of chronic diastolic CHF, recently admitted and discharged after cardiopulmonary arrest, paroxysmal atrial fibrillation who comes in with progressive shortness of breath. Since his discharge on 08/23/18, patient had been to [place] where he was admitted with pneumonia and managing the ICU. He was discharged without intubation. He left the hospital on 09/18/18. He has noticed progressive leg swelling. He had followed up with his primary care doctor's office yesterday. Today he comes in with progressive shortness of breath, chest discomfort, orthopnea and PND. He admits to missing his Lasix medications but has resumed this since his discharge from the hospital in [place]. He admits to eating hot dogs 3 days prior to this admission, and grilled steak one day prior to admission and hot wings on the day of admission. At the time of being seen, he denied any chest discomfort dizziness palpitations. He admits to having gained more than 7 pounds over the last 24 hours. Vitals in the ED showed temperature of 98.1F, heart rate 62, blood pressure 139/84, respiratory 22, SPO2 was 99% on room air. His admitting CBC D was unremarkable, CMP was also unremarkable. His d-dimer was elevated at 1.0. Chest x-ray was consistent with CHF. CT of the chest was negative for acute PE Past Medical History Past Medical History (Chronic Problems): Chronic Problems (Last Reviewed 09/05/18 @ 09:48 by Main Joyce MD) Morbid obesity (Chronic) Cardiac dysrhythmia (Chronic) atrial flutter, heart block, bradycardia Paroxysmal atrial fibrillation (Chronic) Paroxysmal atrial flutter (Chronic) Nicotine dependence (Chronic) Essential (primary) hypertension (Chronic) Medical History: Medical History (Last Reviewed 09/05/18 @ 09:48 by Main Joyce MD) Cardiac dysrhythmia (Chronic) I49.9 atrial flutter, heart block, bradycardia Paroxysmal atrial fibrillation (Chronic) I48.0 Diastolic dysfunction with acute on chronic heart failure (Acute) I50.33 Paroxysmal atrial flutter (Chronic) I48.92 Nicotine dependence (Chronic) F17.200 Essential (primary) hypertension (Chronic) I10 COPD (chronic obstructive pulmonary disease) J44.9 Chronic pain G89.29 Degeneration of intervertebral disc of lumbosacral region M51.37 Failed back syndrome of lumbar spine M96.1 History of deep vein thrombosis (DVT) of lower extremity Z86.718 Morbid obesity E66.01 Obstructive sleep apnea G47.33 Sacrococcygeal disorders, not elsewhere classified M53.3 Sacroiliitis, not elsewhere classified M46.1 Cardiopulmonary arrest Onset Date: 08/20/18 I46.9 Allergies Penicillins Allergy (Verified 09/27/18 20:40) Hives pregabalin [From Lyrica] Allergy (Verified 09/27/18 20:40) Hives red dye Allergy (Verified 09/27/18 20:40) Angioedema Home Medications: Ambulatory Orders Medication Instructions Recorded Clonidine HCl [Catapres] 0.1 mg PO BID 04/04/13 Hydrocodone Bitart/Apap 5-325 1 tab PO 4X/DAY PRN 04/04/13 [[place] 5/325] Lisinopril [Zestril] 40 mg PO BID 04/04/13 Albuterol IH (ProAir) [Proair Hfa] 1 - 2 puff INHALATION Q6H PRN PRN 08/17/18 Budesonide/Formoterol 160/4.5 2 puff INHALATION BID 08/17/18 [Symbicort 160/4.5 Mcg Inhaler (SP)] Amlodipine [Norvasc] 10 mg PO BID #60 tab 08/23/18 furosemide 40 mg tablet 40 mg PO DAILY PRN 09/05/18 Aspirin 325 mg PO DAILY 09/27/18 Baclofen [Lioresal] 5 - 10 mg PO TID 09/27/18 Cephalexin 500 mg PO BID 09/27/18 Cyanocobalamin (Vitamin B-12) 500 mcg PO DAILY 09/27/18 [Vitamin B-12] Fluticasone Propionate 1 spray NASAL DAILY PRN PRN 09/27/18 Nicotine [Nicoderm Cq (PBKC)] 21 mg TRANSDERM. DAILY 09/27/18 Promethazine HCl/Codeine 5 ml PO Q4H PRN PRN 09/27/18 [Promethazine-Codeine Syrup] Sotalol HCl [Sotalol AF] 80 mg PO BID 09/27/18 hydrALAZINE [Apresoline] 50 mg PO BID 09/27/18 Surgical History: Surgical History (Last Reviewed 09/05/18 @ 09:48 by Main Joyce MD) History of total hip arthroplasty Z96.649 History of total knee arthroplasty Z96.659 Surgical History: total hip arthroplasty, total knee arthroplasty, - - s/p back surgeries Psychiatric History: No pertinent psych hx Lives: Spouse/ Significant Other Smoking Status: Current every day smoker Tobacco Use: Cigarettes - now with nicotine patch Alcohol: None Drugs: None - *Family History Maternal Family History: Family History (Last Reviewed 09/05/18 @ 09:48 by Main Joyce MD) Mother CVA (cerebral vascular accident) History Items: Stroke - hemorrhagic Paternal Family History: Family History (Last Reviewed 09/05/18 @ 09:48 by Main Joyce MD) Mother CVA (cerebral vascular accident) History Items: No pertinent history Review of Systems Constitutional: Reports: Weight Change. Denies: Anorexia, Chills, Fever, Night Sweats, Weakness, Fatigue Eyes: Denies: Blurred vision, Cataracts, Conjunctivae Inflammation, Pain, Redness, Vision Change HEENT: Denies: Difficulty Hearing, Difficulty Swallowing, Head Aches, Hearing Changes, Sinus Congestion, Sinus Drainage Cardiovascular: Reports: Chest Pressure, Edema, Orthopnea, Palpitations, Paroxysmal Noc. Dyspnea. Denies: Chest Pain, Claudication, Light Headedness Respiratory: Reports: Shortness of breath at rest, Shortness of breath upon exertion. Denies: Cough, Hemoptysis, Sputum production Gastrointestinal: Denies: Abdominal Pain, Nausea, Vomiting Genitourinary: Denies: Dysuria, Frequency, Incontinence, Nocturia Musculoskeletal: Denies: Joint Pain, Joint Tenderness Skin: Denies: Rash, Wounds Neurological: Denies: Difficulty swallowing, Focal weakness, Numbness, Tingling Psychiatric: Denies: Anxiety, Depression, Homicidal Ideations, Suicidal Ideations Hematologic/ Lymphatic: Denies: Easy Bruising, Easy Bleeding VTE Information - Inpt Only VTE Present on Admission: No VTE Pharm Prophylaxis ordered?: Yes - Physical Exam General: Alert, Oriented x3, Cooperative, No apparent distress HEENT: Atraumatic, PERRLA, EOMI, Normocephalic Neck: Supple Lungs: Normal air movement, Diminished Cardiovascular: Regular rate, Regular Rhythm, Normal S1, Normal S2, No murmurs Abdomen: Bowel Sounds Present, Soft, Non Tender, Non-Distended, Distended, Obese Extremities: Edema - Bilateral +2-3 pedal edema, almost firm to touch Skin: No rashes, No breakdown Musculoskeletal: No Tenderness to Palpation of Joints or Extremities Lymphatic: No Cervical, Supraclavicular, or Inguinal Adenopathy Neurological: Cranial nerves II-XII grossly intact, Neuro grossly intact Psych/Mental Status: Normal Affect, Appropriate Vital Signs Temp Pulse Resp BP Pulse Ox 98.1 F 54 L 22 H 161/88 H 96 09/27/18 20:41 09/27/18 22:18 09/27/18 22:18 09/27/18 22:18 09/27/18 22:18 Oxygen Delivery Method Room Air Weight: 176.6 kg Body Mass Index (BMI) 51.3 Intake and Output for Last 24 Hours 09/25/18 09/26/18 09/27/18 23:59 23:59 23:59 Output Total 200 / 200 Balance -200 / -200 Laboratory Tests Past 24 Hrs 09/27/18 09/27/18 09/27/18 20:48 20:48 20:48 WBC 8.3 RBC 4.81 Hgb 13.5 Hct 41.2 MCV 85.7 MCH 28.1 MCHC 32.8 RDW 15.6 H RDW Differential 49.1 H Plt Count 203 MPV 11.2 Immature Gran % (Auto) 0.100 Neut % (Auto) 58.1 Lymph % (Auto) 22.1 Mills % (Auto) 16.1 H Eos % (Auto) 3.4 Baso % (Auto) 0.2 Absolute Neuts (auto) 4.8 Absolute Lymphs (auto) 1.84 Total Counted Not Reportable D-Dimer Quant (PE/DVT) 1.00 H* Sodium 140 Potassium 4.1 Chloride 107 Carbon Dioxide 27.0 Anion Gap 6 BUN 20 H Creatinine 1.23 Estim Creat Clear Calc 73.08 Est GFR (MDRD) Af Amer 77 Est GFR (MDRD) Non-Af 64 BUN/Creatinine Ratio 16.3 Glucose 94 Lactic Acid Calcium 8.7 Troponin I < 0.015 B-Natriuretic Peptide 09/27/18 09/27/18 20:48 20:56 WBC RBC Hgb Hct MCV MCH MCHC RDW RDW Differential Plt Count MPV Immature Gran % (Auto) Neut % (Auto) Lymph % (Auto) Mills % (Auto) Eos % (Auto) Baso % (Auto) Absolute Neuts (auto) Absolute Lymphs (auto) Total Counted D-Dimer Quant (PE/DVT) Sodium Potassium Chloride Carbon Dioxide Anion Gap BUN Creatinine Estim Creat Clear Calc Est GFR (MDRD) Af Amer Est GFR (MDRD) Non-Af BUN/Creatinine Ratio Glucose Lactic Acid 1.3 Calcium Troponin I B-Natriuretic Peptide 309.1 H Assessment/Plan All Active Problems (Last Reviewed 09/05/18 @ 09:48 by Main Joyce MD) Dyspnea on exertion (Acute) Diastolic dysfunction with acute on chronic heart failure (Acute) 58 year old M's medical history of chronic diastolic CHF, recently admitted and discharged after cardiopulmonary arrest, paroxysmal atrial fibrillation who comes in with progressive shortness of breath. 1. Acute on chronic diastolic CHF secondary to dietary/fluid restriction no ncompliance, patient is stable Plan: Admit to PCU, monitor on telemetry, IV Lasix, trend troponins, encourage use of incentive spirometer, daily weights, fluid restriction, 2. Hypertension, controlled, continue on clonidine, hydralazine, lisinopril. Would hold amlodipine for now on account of worsening bipedal edema. Hydralazine was increased from 50 mg p.o. to 100 mg twice daily 3. Paroxysmal atrial fibrillation, still in atrial fibrillation, controlled, on sotalol, aspirin 4. Chronic back pain, continue on chronic pain management 5. Super morbid obesity, BMI 49.6, lifestyle modifications recommended 6. Nicotine dependence, on replacement 7. DVT PPx- Heparin SC as well as early ambulation Code Visit Inpatient E&M: 05693 Init Hosp L3
[2018-09-27 23:43] VITALS: BMI 49.9; BMI 50.0
[2018-09-27 23:45] VITALS: BP 116/65; PULSE 55; PULSE 69; RESP 20; TEMP 36.8; O2SAT 97
--- NOTE | 2018-09-27 23:46 | EKG12_ITS ---
Test Reason : CP ADMISSION Blood Pressure : / mmHG Vent. Rate : 055 BPM Atrial Rate : 277 BPM P-R Int : 000 ms QRS Dur : 098 ms QT Int : 458 ms P-R-T Axes : 000 059 115 degrees QTc Int : 438 ms Atrial fibrillation with slow ventricular response Nonspecific T wave abnormality Abnormal ECG Confirmed by JOSSY GILMORE, MIAN ([id number]), sports editor CHARLA PETERSON ([id number]) on 10/04/2018 10:28:16 AM Referred By: Christianne Barkley Confirmed By:MIAN FENTON MD
[2018-09-27 23:54] VITALS: PULSE 54
[2018-09-28] VITALS (12 sets, daily range): BP systolic 116–135; BP diastolic 66–78; PULSE 47–59; RESP 18; TEMP 36.4–37.1; O2SAT 93–99
[2018-09-28 03:54] LABS: Absolute Lymphocyte Count 1.88 X10^3/ul (0.83-4.51); Absolute Neutrophil Count 4.9 X10^3/uL (2.0-7.7); Basophil# 0.03 X10^3/uL; Basophil% 0.4 % (0-1); Eosinophil# 0.27 X10^3/uL; Eosinophils% 3.4 % (0-5); Hematocrit 39.9 % (40-54); Hemoglobin 13.1 g/dl (13.0-16.5); Lymphocyte # 1.88 X10^3/ul (4.0); Lymphocyte % 23.7 % (19-41); Mean Corp Hgb Conc 32.8 g/gl (32-36); Mean Corpuscular Hgb 27.9 pg (27.0-32.0); Mean Corpuscular Volume 85.1 fL (80-94); Mean Platelet Vol. 10.7 fl (6.2-12.0); Monocyte# 0.82 X10^3/uL; Monocyte% 10.3 % (0-10); Neutrophil # 4.93 X10^3/uL (2.7-7.7); Neutrophil % 62.1 % (47-70); POSITIVE COUNT NO; POSITIVE DIFFERENTIAL NO; POSITIVE MORPHOLOGY NO; Platelet Count 179 K/mm3 (150-450); RBC Distribution Width CV 15.6 % (11.6-14.6); RBC Distribution Width SD 48.3 fl (35.1-43.9); Red Blood Count 4.69 M/mm3 (4.6-6.2); White Blood Count 7.9 K/mm3 (4.4-11.0)
[2018-09-28 04:09] LABS: Anion Gap 9 (5-15); BUN 20 mg/dL (7-18); BUN/Creat Ratio 19.6 RATIO (10-20); Calcium,Total 8.1 mg/dL (8.5-10.1); Chloride 108 mmol/L (98-107); Creatinine, Serum 1.02 mg/dL (0.70-1.30); EST Glomerular Filtration Rate 79 mL/min (>60); Est Glom Filt Rate - Afr Amer 96 mL/min (>60); Estimated Creatinine Clearance 88.13 ml/min; Glucose 113 mg/dL (74-106); Potassium 4.3 mmol/L (3.5-5.1); Sodium Level 142 mmol/L (136-145)
[2018-09-28] MEDS: Baclofen 10 MG Tablet 5 MG PO ×2 (05:49→13:20)
[2018-09-28] MEDS: Heparin Injection (Vial) 5,000 UNIT/ML VIAL 5000 UNIT SC (05:49)
--- NOTE | 2018-09-28 06:15 | PCA ---
09/28/18 0615 discussed weight change with Radha CASTILLO and Steven CASTILLO
[2018-09-28] MEDS: Albuterol 2.5 MG/3 ML VIAL.NEB. INHALATION (06:49)
[2018-09-28] MEDS: Budesonide Respules 0.5 MG/2 ML AMPUL.NEB. INHALATION (06:50)
--- NOTE | 2018-09-28 09:21 | CASEMGMT ---
RN CM Readmission Note Previous Admission: 09/13/18-09/18/18 [facility] DX: PAF, cardiopulmonary arrest, CHF DC Disposition: Home Current Admission: 09/27/18 Presentation: PAF, CHF. Intro role of CM and purpose of RN CM assessment to patient in room. Pt is awake, alert and able to participate in assessment. Demographics, PCP and Pharmacy verified. Pt generally independent at home. States he has had difficulty with edema/weight gain since admission. Pt states he has scale @ home, monitors his weight and consistently sees his PCP. States he tries to stay on regimented diet, but I ate a hot dog and the doctor thought that set this off. States he saw dr 2 days ago. Lasix dose adjusted and physician told pt to come to ER if he continued to gain weight. -dietary consult ordered. PCP: Dr. Turk Specialists: Dr. Joyce, cardiology Preferred Pharmacy: [facility] [place] Insurance: MMO Prescription Benefit: yes LNOK: Pt has family in town, but wishes Girlfriend to be contact. Living Arrangements: Lives in one story home. Independent in ADL's and no care needs per pt. Transportation: drives, but Girlfriend does most driving. DME: nebulizer. Denies ambulatory DME or oxygen @ home. HHC: none SW consult: information on adv directives. Pt has family in area, but no living will, POA on file. Patient DC goals: home DC PLAN: home Gi SCOTT RN ACM
[2018-09-28] MEDS: hydrALAZINE 50 MG Tablet 100 MG PO (10:55)
[2018-09-28] MEDS: Sotalol Hydrochloride 80 MG Tablet PO (10:55)
[2018-09-28] MEDS: cloNIDine HCl 0.1 MG Tablet PO (10:55)
[2018-09-28] MEDS: Aspirin 325 MG Tablet PO (10:55)
[2018-09-28] MEDS: Furosemide 40 MG/4 ML Vial IV (10:55)
[2018-09-28] MEDS: Lisinopril 40 MG Tablet PO (10:56)
--- NOTE | 2018-09-28 15:37 | CASEMGMT ---
SW gave patient information on advance directives on recent admission and he did not wish to complete them. Leigh BARAJAS MSW
--- NOTE | 2018-09-28 15:58 | PCM.DC ---
- Discharge Diagnoses Current Active Problems: Current Active and Chronic Problems (Last Reviewed 09/05/18 @ 09:48 by Main Joyce MD) Morbid obesity (Chronic) You will use the following diet at home:: No restrictions Your food should be the consistency of: Regular Your liquids should be the consistency of: Regular/Thin Discharge Activity: Return to Normal Activity Weight Bearing Status: Full weight bearing Allergies/Adverse Reactions: Allergies Penicillins Allergy (Verified 09/27/18 20:40) Hives pregabalin [From Lyrica] Allergy (Verified 09/27/18 20:40) Hives red dye Allergy (Verified 09/27/18 20:40) Angioedema Medications to take at Discharge Clonidine HCl [Catapres] 0.1 mg PO BID 04/04/13 Hydrocodone Bitart/Apap 5-325 [[place] 5/325] 1 tab PO 4X/DAY PRN 04/04/13 Lisinopril [Zestril] 40 mg PO BID 04/04/13 Albuterol IH (ProAir) [Proair Hfa] 1 - 2 puff INHALATION Q6H PRN PRN 08/17/18 Budesonide/Formoterol 160/4.5 [Symbicort 160/4.5 Mcg Inhaler (SP)] 2 puff INHALATION BID 08/17/18 Aspirin 325 mg PO DAILY 09/27/18 Baclofen [Lioresal] 5 - 10 mg PO TID 09/27/18 Cephalexin 500 mg PO BID 09/27/18 Cyanocobalamin (Vitamin B-12) [Vitamin B-12] 500 mcg PO DAILY 09/27/18 Fluticasone Propionate 1 spray NASAL DAILY PRN PRN 09/27/18 Nicotine [Nicoderm Cq] 21 mg TRANSDERM. DAILY 09/27/18 Promethazine HCl/Codeine [Promethazine-Codeine Syrup] 5 ml PO Q4H PRN PRN 09/27/18 Sotalol HCl [Sotalol AF] 80 mg PO BID 09/27/18 Amlodipine [Norvasc] 10 mg PO DAILY #30 tab 09/28/18 Furosemide 40 mg PO BID #60 tab 09/28/18 Potassium Chloride 20 meq PO DAILY #60 tablet.er 09/28/18 hydrALAZINE [Apresoline] 100 mg PO TID #90 tab 09/28/18 The following prescriptions were given: hydrALAZINE [Apresoline] 100 mg PO TID #90 tab Furosemide 40 mg PO BID #60 tab Amlodipine [Norvasc] 10 mg PO DAILY #30 tab Potassium Chloride 20 meq PO DAILY #60 tablet.er Primary Care Physician: Terry Turk MD [Primary Care Provider] - Please follow up with your Primary Care Physician in: call for appointment next week Test Results: Test results from this visit will be discussed in further detail at your follow-up appointment, if applicable.
--- NOTE | 2018-09-28 17:00 | NURSING ---
Discharge teaching completed. Patient instructed to check bp prior to taking bp medications. Consult with PCP if bp low for further instruction. Patient and significant other voiced understanding of same.
--- NOTE | 2018-09-30 08:40 | DS.PCM_ITS ---
Discharge Date and Diagnosis Date of Admission: 09/27/18 Date of Discharge: 09/28/18 - Primary Discharge Diagnosis #1 acute on chronic diastolic CHF #2 hypertension #3 paroxysmal atrial fibrillation #4 Morbid obesity 5 noncompliance with medical regimen - Secondary Discharge Diagnosis Chronic Problems (Last Reviewed 09/05/18 @ 09:48 by Main Joyce MD) Morbid obesity (Chronic) Cardiac dysrhythmia (Chronic) atrial flutter, heart block, bradycardia Paroxysmal atrial fibrillation (Chronic) Paroxysmal atrial flutter (Chronic) Nicotine dependence (Chronic) Essential (primary) hypertension (Chronic) Hospital Course and Treatment Operations: None Procedures: None Summary of Care Provided: The patient is a 58 year old M who was seen in the emergency room at [facility] with a chief complaint of shortness of breath, work-up in the emergency room showed the patient have an elevated d-dimer, CT of the chest was obtained and was negative for PE. [place] edema was noted on CTA, patient was placed in observation status on PCU and given IV Lasix and monitored. The next day patient felt better and had no shortness of breath, he requested discharge to home with follow-up with his PCP. I called his pharmacy and discovered the patient had not been taking his medications as directed. On examination he appeared in good health and spirits. Vital signs as documented. Skin warm and dry and without overt rashes. Neck without JVD. Lungs clear. Heart exam notable for irregular rhythm. Abdomen unremarkable and without evidence of organomegaly, masses, or abdominal aortic enlargement. Extremities- marked lower leg edema was noted to be present. Neuro: Cranial nerves II through XII are grossly intact, no focal motor deficits were noted, sensation to light touch and pinprick intact. Psych: Patient is alert and oriented x3, he does not appear anxious or depressed On 09/28/2018, patient was seen and examined and felt to be in stable condition for discharge home - Physical Exam Vital Signs Temp Pulse Resp BP Pulse Ox 97.5 F L 54 L 18 120/66 99 09/28/18 15:47 09/28/18 15:47 09/28/18 15:47 09/28/18 15:47 09/28/18 15:47 Oxygen Delivery Method Room Air Weight: 171.8 kg Body Mass Index (BMI) 49.9 Intake and Output for Last 24 Hours 0709/29/18 09/30/18 23:59 23:59 23:59 Intake Total 540 / 540 Output Total 3280 / 3280 Balance -2740 / -2740 Discharge Activity: Return to Normal Activity Weight Bearing Status: Full weight bearing Home Medications: Medications to take at Discharge Clonidine HCl [Catapres] 0.1 mg PO BID 04/04/13 Hydrocodone Bitart/Apap 5-325 [[place] 5/325] 1 tab PO 4X/DAY PRN 04/04/13 Lisinopril [Zestril] 40 mg PO BID 04/04/13 Albuterol IH (ProAir) [Proair Hfa] 1 - 2 puff INHALATION Q6H PRN PRN 08/17/18 Budesonide/Formoterol 160/4.5 [Symbicort 160/4.5 Mcg Inhaler (SP)] 2 puff INHALATION BID 08/17/18 Aspirin 325 mg PO DAILY 09/27/18 Baclofen [Lioresal] 5 - 10 mg PO TID 09/27/18 Cephalexin 500 mg PO BID 09/27/18 Cyanocobalamin (Vitamin B-12) [Vitamin B-12] 500 mcg PO DAILY 09/27/18 Fluticasone Propionate 1 spray NASAL DAILY PRN PRN 09/27/18 Nicotine [Nicoderm Cq] 21 mg TRANSDERM. DAILY 09/27/18 Promethazine HCl/Codeine [Promethazine-Codeine Syrup] 5 ml PO Q4H PRN PRN 09/27/18 Sotalol HCl [Sotalol AF] 80 mg PO BID 09/27/18 Amlodipine [Norvasc] 10 mg PO DAILY #30 tab 09/28/18 Furosemide 40 mg PO BID #60 tab 09/28/18 Potassium Chloride 20 meq PO DAILY #60 tablet.er 09/28/18 hydrALAZINE [Apresoline] 100 mg PO TID #90 tab 09/28/18 Following Prescrptions Were Given to Patient: hydrALAZINE [Apresoline] 100 mg PO TID #90 tab Furosemide 40 mg PO BID #60 tab Amlodipine [Norvasc] 10 mg PO DAILY #30 tab Potassium Chloride 20 meq PO DAILY #60 tablet.er Primary Care Physician: Terry Turk MD [Primary Care Provider] - Please follow up with your Primary Care Physician in: call for appointment next week Please Follow Up With: Terry Turk MD Disposition: Home Minutes spent on discharge:: 31 Patient Condition:: Stable Medical Necessity - Tobacco Use Smoking Status: Current every day smoker Tobacco Use: Cigarettes - now with nicotine patch Meaningful Use Info Meaningful Use Diagnoses (Choose all that apply): CHF - CHF LANA/ARB ordered at discharge?: Yes Documented LVEF (%): 53 Code Visit OBSV E&M: 65762 Observation care discharge
== END 2018-09-28 16:00 | disposition home or self-care (01) ==
LOC: ED 21:06 → PCU 23:26
PROVIDERS: Admitting Provider Internal Medicine; Emergency Provider Emergency Medicine; Family Provider Family Medicine; PCP Family Medicine; Referring Provider Internal Medicine; Visit Provider Internal Medicine
DX: I11.0 Hypertensive heart disease with heart failure (principal); I50.33 Acute on chronic diastolic (congestive) heart failure; I48.0 Paroxysmal atrial fibrillation; E66.01 Morbid (severe) obesity due to excess calories; J44.9 Chronic obstructive pulmonary disease, unspecified; G47.33 Obstructive sleep apnea (adult) (pediatric); G89.29 Other chronic pain; Z79.51 Long term (current) use of inhaled steroids; Z91.14 Patient's other noncompliance with medication regimen; Z68.43 Body mass index [BMI] 50.0-59.9, adult; Z71.3 Dietary counseling and surveillance; Z86.718 Personal history of other venous thrombosis and embolism; Z86.74 Personal history of sudden cardiac arrest; Z79.899 Other long term (current) drug therapy; Z79.82 Long term (current) use of aspirin; F17.210 Nicotine dependence, cigarettes, uncomplicated
CPT/HCPCS: 36415; 71045; 71275; 80048; 83605; 83880; 84484; 85025; 85379; 93005; 94640; 96372; 96374; 96376; 97802; 99218; 99285; 99406; Q9967; A4216; G0378; J1940

== ENCOUNTER 2019-02-04 08:02 | Day surgery (SDC) | payer OTHER, SELFPAY ==
[2018-09-27 23:43] VITALS: BMI 49.9
[2019-02-04] VITALS (8 sets, daily range): BP systolic 126–148; BP diastolic 70–90; PULSE 54–69; RESP 16–18; TEMP 36.4–36.7; O2SAT 93–97; BMI 48.9
[2019-02-04] MEDS: Bupivacaine 0.25% 30 ML Vial (08:40)
[2019-02-04] MEDS: MethylPREDNISolone Acetate 80 MG/ML Vial (08:41)
[2019-02-04] MEDS: Lactated Ringers 1,000 ML 100 ML IV (08:43)
--- NOTE | 2019-02-04 09:00 | RAD_ITS ---
STUDY: BILATERAL SACROILIAC JOINT INJECTION. REASON FOR EXAM: Male, 58 years old. Chronic pain. FLUOROSCOPY TIME (if supplied): ( 12.8 seconds ) minutes/seconds TECHNIQUE: Fluoroscopic guidance for bilateral sacroiliac joint injections. COMPARISON: None. FINDINGS: Fluoroscopic guidance for bilateral sacroiliac joint injections. RAD/S-I Jts 3 or More Views IMPRESSION: Fluoroscopic guidance for bilateral sacroiliac joint injections. Electronically Signed: Celestine Reynolds, at 13:30 EST , Service support ,
--- NOTE | 2019-02-04 09:22 | OP.PCM_ITS ---
Report of Operation Date of Procedure: 02/04/19 Description of Surgical Findings:: PREOPERATIVE DIAGNOSES: 1. Sacroiliitis. 2. Sacroiliac joint dysfunction. POSTOPERATIVE DIAGNOSES: 1. Sacroiliitis. 2. Sacroiliac joint dysfunction. PROCEDURE PERFORMED: Bilateral sacroiliac joint steroid injection under fluoroscopy guidance. ANESTHESIA: MAC. BLOOD LOSS: Minimal. COMPLICATIONS: None. DESCRIPTION OF PROCEDURE: History and physical of today was reviewed. Risks and benefits of the procedure were explained. The patient understood and agreed to the procedure. Informed consent was obtained. IV inserted per routine mikaela col. The patient was taken to the operating room and placed in the prone position with a pillow positioned underneath the abdomen. The lower back and buttock area was prepped and draped in a sterile fashion using iodine x3. Under fluoroscopy guidance on an AP view, the bilateral SI joint were visualized. The skin and subcutaneous tissue was anesthetized with approximately 3 mL of 1% lidocaine using a 25-gauge regular needle. Under direct visualization with fluoroscopy at approximately 15-degree angle, using a 22-gauge 3-1/2-inch spinal needle, the needle was advanced via the skin. The tip of the needle was maneuvered and directed towards the inferior one-third of the posterior SI joint. Once the tip of the needle was at the vicinity of the joint, after negative aspiration for blood or CSF, a total of 1 mL of contrast was injected to confirm correct placement of the needle as well as cephalocaudal spread. Confirmation was obtained on AP as well as oblique view. After repeated n egative aspiration and confirmation, a total of 9 mL of preservative-free 0.25% Marcaine with 80 mg of Depo-Medrol was injected in and around the SI joint in divided doses between both levels, the needle was then removed intact. The patient experienced no sign or symptoms of intrathecal or intravascular injection. The patient experienced no paresthesia. The procedure was completed without any apparent difficulty or any complications. The patient appeared to tolerate it well. ASSESSMENT AND PLAN: This is a 58-year-old male with sacroiliitis sacroiliac joint dysfunction status post bilateral sacroiliac joint steroid injection under fluoroscopic guidance patient will continue his current medications patient phone approximately 2 w eeks for reevaluation.
== END 2019-02-04 10:17 | disposition home or self-care (01) ==
LOC: SDC 08:03 → AC 08:04
PROVIDERS: Family Provider Family Medicine; PCP Family Medicine; Referring Provider Anesthesiology Pain Medicine; Visit Provider Anesthesiology Pain Medicine
PROC: 3E0U3BZ Introduction of Anesthetic Agent into Joints, Percutaneous Approach (ICD-10-PCS; CPT 64451; principal; 2019-02-04 09:15)
DX: M46.1 Sacroiliitis, not elsewhere classified (principal); M53.3 Sacrococcygeal disorders, not elsewhere classified; M51.17 Intervertebral disc disorders with radiculopathy, lumbosacral region; M47.27 Other spondylosis with radiculopathy, lumbosacral region; M48.07 Spinal stenosis, lumbosacral region; I10 Essential (primary) hypertension; J45.909 Unspecified asthma, uncomplicated; G47.33 Obstructive sleep apnea (adult) (pediatric); G47.00 Insomnia, unspecified; K21.9 Gastro-esophageal reflux disease without esophagitis; Z79.82 Long term (current) use of aspirin; Z79.891 Long term (current) use of opiate analgesic; Z79.899 Other long term (current) drug therapy; Z86.718 Personal history of other venous thrombosis and embolism
CPT/HCPCS: 01160; 27096; 72202; 76000; J7120

== ENCOUNTER 2019-03-03 06:36 | Inpatient (IN) | payer OTHER, SELFPAY ==
[2019-02-26 11:09] VITALS: BMI 46.5
[2019-03-03] VITALS (39 sets, daily range): BP systolic 118–194; BP diastolic 71–120; PULSE 65–84; RESP 13–92; TEMP 36.4–37.1; O2SAT 26–98; BMI 50.4; BMI 46.8; BMI 46.9
--- NOTE | 2019-03-03 06:42 | EKG12_ITS ---
Test Reason : CP Blood Pressure : / mmHG Vent. Rate : 069 BPM Atrial Rate : 069 BPM P-R Int : 228 ms QRS Dur : 104 ms QT Int : 418 ms P-R-T Axes : 050 084 104 degrees QTc Int : 447 ms Sinus rhythm with 1st degree A-V block Possible Left atrial enlargement ST elevation consider inferior injury or acute infarct Confirmed by MOSES GILMORE, OLAF ([id number]), supervising film or videotape editor CHARLA PETERSON ([id number]) on 03/12/2019 9:52:49 AM Referred By: Flo Stratton Confirmed By:OLAF LOPES MD
--- NOTE | 2019-03-03 06:45 | RAD_ITS ---
HISTORY: STEMI EXAMINATION/TECHNIQUE: XR Chest 1 View: Portable COMPARISON: 09/27/2018 FINDINGS: Cardiac telemetry leads in place. No significant change. Mild cardiomegaly. Pulmonary venous congestion. Chronic appearing bilateral interstitial opacity which appears to represent interstitial edema. No focal infiltrate. No significant pleural effusion. No pneumothorax. RAD/Chest 1 View (Portable) IMPRESSION: Mild CHF pattern which appears chronic. No pneumonia identified. at 0727 Reported and signed by: Jorge Garza MD Electronically Signed: Jorge Garza, at 7:25 EST Tel , Service support ,
[2019-03-03] MEDS: Aspirin 81 MG TAB.CHEW 324 MG PO (06:49)
[2019-03-03] MEDS: TICAGRELOR 90 MG TABLET 180 MG PO (06:56)
[2019-03-03] MEDS: Heparin 10,000 UNITS/10 ML Vial 4000 UNITS IV (06:56)
--- NOTE | 2019-03-03 06:59 | ED.DCSUM_ITS ---
- ER Visit Summary Date of Service: 03/03/19 Chief Complaint: Left sided chest pain History of Present Illness: The patient is a 58 M hx of hypertension. Patient states of either this morning he was awoken from sleep with 8 and 9 left-sided chest pain going to his left arm. He denies any nausea or vomiting. No diarrhea or fever. No diaphoresis. Said he had some type of cardiac event around August. Believes his heart may have stopped and he may have needed CPR. But he denies ever having a heart cath, any stents or bypass. He does not believe he is ever had an KS before. Physical Examination: Vital signs initial blood pressure 194/120. Heart rate 68. Pulse ox 95% on 2 L. No hypoxia. Temperature is pending. H EENT exam unremarkable. Neck nontender no JVD. Lungs clear to auscultation bilaterally. Heart regular rate and rhythm rate about 65 no murmur. Chest wall nontender. Abdomen morbidly obese but soft nontender normal bowel sounds no peritoneal signs. No pulsatile mass. Patient moving all 4 extremities. Neurovascular intact. Calves are nontender without cords. Neurologically is awake and alert with no focal motor deficits. Test Results: EKG shows a normal sinus rhythm rate of 67 with an acute inferior KS with ST elevation in [address] wave flattening in lead I. Also in V6. Portable 1 view chest x-ray shows cardiomegaly and pulmonary edema similar to a prior chest x-ray that he had. Labs are currently pending. Emergency Department Course and Treatment: Shortly after arrival I spoke with the range conservationist Dr. Latrell Stratton. We discussed the patient having acute inferior KS. He is already been given baby aspirin he will receive IV heparin 4000 bolus and p.o. Brilinta. Dr. Stratton is in route to the hospital take the patient to the cardiac catheterization lab. Treatment Plan: Treated as an acute inferior KS and awaiting Ux Designer transfer. I accompanied the patient to the Ux Designer and turned the patient over to Dr. Latrell Stratton at 07:27 AM as he began the procedure. Disposition: Admission Impression: Acute inferior KS History of hypertension This note was generated with Georgina Goodman dictation software. It may contain incorrect words, spelling, and punctuation that were not noted in review of the chart prior to signing ED Disposition - Plan for ED Patient:
[2019-03-03] MEDS: Ondansetron 4 MG/2 ML Vial IV (07:05)
[2019-03-03 07:06] LABS: Absolute Lymphocyte Count 2.52 X10^3/uL (0.83-4.51); Absolute Neutrophil Count 4.4 X10^3/uL (2.0-7.7); Basophil# 0.04 X10^3/uL; Basophil% 0.5 % (0-1); Eosinophil# 0.32 X10^3/uL; Hematocrit 54.8 % (40-54); Hemoglobin 17.5 g/dL (13.0-16.5); Lymphocyte # 2.52 X10^3/ul (4.0); Lymphocyte % 31.5 % (19-41); Mean Corp Hgb Conc 31.9 g/dL (32-36); Mean Corpuscular Hgb 27.9 pg (27.0-32.0); Mean Corpuscular Volume 87.3 fL (80-94); Mean Platelet Vol. 12.2 fl (6.2-12.0); Monocyte# 0.76 X10^3/uL; Monocyte% 9.5 % (0-10); NRBC Flagged by Analyzer 0 % (0-5); Neutrophil # 4.35 X10^3/uL (2.7-7.7); Neutrophil % 54.3 % (47-70); Platelet Count 136 K/mm3 (150-450); RBC Distribution Width CV 17.2 % (11.6-14.6); RBC Distribution Width SD 51.1 fl (35.1-43.9); Red Blood Count 6.28 M/mm3 (4.6-6.2)
[2019-03-03] MEDS: Morphine 4 MG/ML Syringe IV ×2 (07:06→09:48)
[2019-03-03 07:28] LABS: Anion Gap 3 (5-15); BUN 20 mg/dL (7-18); BUN/Creat Ratio 16.1 RATIO (10-20); Calcium,Total 8.4 mg/dL (8.5-10.1); Chloride 102 mmol/L (98-107); Creatinine, Serum 1.24 mg/dL (0.70-1.30); EST Glomerular Filtration Rate 63 mL/min (>60); Est Glom Filt Rate - Afr Amer 77 mL/min (>60); Estimated Creatinine Clearance 68.32 ml/min; Glucose 136 mg/dL (74-106); Potassium 3.9 mmol/L (3.5-5.1); Sodium Level 136 mmol/L (136-145)
[2019-03-03 08:25] LABS: ACT Activated Clotting Time 175 sec (74-137)
[2019-03-03 08:25] LABS: ACT Activated Clotting Time 224 sec (74-137)
--- NOTE | 2019-03-03 08:29 | CL.I_ITS ---
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 RECOMMENDATIONS Referred for immediate PCI Highly recommend quitting all tobacco products Follow up with primary cuff knitter Risk factor modification ASA Indefinitley Plavix for at least 12 months Routine post interventional care Refer for Outpatient Cardiac Rehab Manual sheath removal per protocol Successful Mynx Control of RFA. Stress echo in 2-3 weeks to eval LCX distribution prior to cardiac rehab. DESCRIPTION OF PROCEDURE The patient arrived to the procedure lab. The risks and benefits of the procedure as well as a full d escription of our services here and lack of surgical backup were fully explained to the patient and/o r their significant other prior to the catheterization. The Timeout was completed, verifying the zaira ect patient and procedure. The patient's procedural site was prepped and draped in the usual fashion. Local anesthetic was given subcutaneously to right groin region with Lidocaine 2%. Using a modified Seldinger technique, arterial access was obtained via the right femoral artery, a 6Fr sheath was inse rted.. Left Coronary Artery selective angiography was performed in multiple views using a 4 Fr. JL5 catheter. Right Coronary Artery selective angiography was then performed in multiple views using a 4 Fr. 3DRC catheter. Left Ventriculography was performed in WOODARD projection using a 4 Fr. Pigtail cathet er. LV to AO pullback pressures were then recordedThe images were reviewed and options discussed. A decision was then made to proceed with an Intervention, IVUS or other adjunct procedure. AL 1 Guide catheter was inserted and engaged into the RCA. Runthrough Guide wire was advanced to the RCA. 2x12 Emerge Balloon catheter was inserted. Balloon catheter was advanced across lesion in th e right coronary, distal. PTCA balloon inflated at 8 atms for 6 secs. PTCA balloon inflated at 8 atms for 10 secs. 2.5x12 Emerge Balloon catheter was inserted. Balloon catheter was advanced across lesio n in the right coronary, distal. PTCA balloon inflated at 12 atms for 14 secs. 3.5x16 Synergy Drug El uting stent was inserted. Drug Eluting stent was advanced across the lesion in the right coronary, di stal. Angiogram performed post stent deployment. 4x8 NC Emerge Balloon catheter was inserted. Balloon catheter was inserted post stent. Angiogram performed post balloon dilatation. Contrast was injected through the sheath and the Right Iliac and Femoral artery were assessed for possible closure device. The arterial sheath was pulled and a Mynx closure device was deployed for hemostasis CORONARY ANGIOGRAPHY DOMINANCE: Right Dominant LEFT HEART ASSESSMENT Left Ventricular Ejection Fraction: by LV Gram 45 % Depressed Left Ventricular systolic function LVEDP: 34 mmHg Abnormal Left Ventricular contraction pattern Elevated Left Ventricular End Diastolic Pressure Inferior Mid Hypokinesis - Moderate LEFT MAIN: Angiographically normal LEFT ANTERIOR DESCENDING ARTERY: Non-obstructive DIAGONAL 1: Ostial - Mild luminal irregularities less than 30% CIRCUMFLEX ARTERY: MID CIRC: Moderate luminal irregularities up to 50% OM 1: Proximal - Moderate luminal irregularities up to 50% RIGHT CORONARY ARTERY: MID RCA: Moderate luminal irregularities up to 50% DISTAL RCA: is occluded INTERVENTION INFORMATION LESION SITE: RCA (Distal) Lesion Complexity: High/C, lesion at bifurcation: No, thrombus present: Yes, lesion length: 16 mm, cu lprit lesion: Yes Pre Stenosis: 100 % Pre intervention RHONA flow: 0 PROCEDURE: Drug Eluting Stent with pre and post dilatation Post Stenosis: 0 % Post intervention RHONA flow: 3 Lesion Devices: Medtronic 6 Fr AL1.0 100cm Guide Catheter Terumo .014 Runthrough Extra Floppy 180cm straight Juancarlos Sci EMERGE MR 2.00x12 BALLOON Juancarlos Sci EMERGE MR 2.50x12 BALLOON Juancarlos Sci Synergy MR SONDRA 3.50x16 Juancarlos Sci NC EMERGE MR 4.00x08 BALLOON COMPLICATIONS No Complications PROCEDURE MEDICATIONS Fentanyl 25 mcg IV Oxygen: 2 L/min via nasal cannula Heparin 6000 unit(s) IV 03/03/2019 07:28:42 Nitro 200 mcg IC 03/03/2019 07:37:59 Nitro 200 mcg IC 03/03/2019 07:37:59 Nitro glycerin 25mg / 250ml D5W @ 10 mcg/min IV started 03/03/2019 07:57:27 Nitro glycerin 25mg / 250ml D5W @ 15 mcg/min (increased rate) 03/03/2019 08:07:48 Nitro glycerin 25mg / 250ml D5W @ 20 mcg/min (increased rate) 03/03/2019 08:15:57 SUMMARY OF HEMODYNAMIC DATA Time AIR REST ECG 07:19:26 AO 191/154 (172) SA 07:31:17 AO 130/93 (111) 07:38:22 LV 172/-2, 26 07:56:30 LV 167/-1, 32 07:56:36 LVp 169/-3, 34 07:56:55 AOp 166/102 (131) 07:57:01 Signed By Flo Stratton MD On 04/02/2019 12:58:36 Flo Stratton MD
[2019-03-03] MEDS: 0.9% Normal Saline 1,000 ML 150 ML IV (08:30)
[2019-03-03] MEDS: Nitroglycerin Infusion 250 ML 15 MG IV (08:30)
--- NOTE | 2019-03-03 09:03 | ECHOCS_ITS ---
Reason For Study: CAD Procedure This was a 2D Doppler, Color Flow transthoracic echocardiogram. The study was technically difficult. Exam performed portable in patient room. Left Ventricle Moderate concentric left ventricular hypertrophy. The estimated ejection fraction is 60 %. Unable to assess diastolic dysfunction due to arrhythmia. Mid-Inferior: Mildly hypokinetic. Right Ventricle Normal size and thickness. Normal systolic function. Atria The left atrium is mildly enlarged. Normal right atrium. Normal atrial septum. Mitral Valve The mitral valve is structurally normal. No prolapse or stenosis seen. Tricuspid Valve Normal tricuspid valve. Unable to estimate RV systolic pressure due to insufficient tricuspid regurgitant envelope. Aortic Valve Normal aortic valve. Trisinus/trileaflet aortic valve. Pulmonic Valve The pulmonic valve is not well visualized. Great Vessels Normal aortic root. Normal arch. Normal inferior vena cava. Inferior vena cava collapse with sniff. Pericardium/Pleural No pericardial effusion. Medication Diluted definity 1ml given slow IV push to enhance endocardial definition. MMode/2D Measurements & Calculations LVIDd: 4.4 cm IVSd: 1.5 cm Ao root diam: 3.5 cm LVIDs: 3.0 cm LVPWd: 1.4 cm FS: 31.5 % LAV(MOD-bp): 77.2 ml LA A4 area: 23.9 cm2 LA dimension(2D): 5.1 cm LAV(MOD-bp) Indexed: 28.1 ml/m2 LAV(MOD-sp2): 64.5 ml LAV(MOD-sp4): 79.1 ml RA A4 area: 18.7 cm2 Doppler Measurements & Calculations MV E max amaya: 86.3 cm/sec Ao V2 max: 128.6 cm/sec LV V1 max: 85.7 cm/sec Ao max P.6 mmHg LV V1 max P.9 mmHg PA V2 max: 100.3 cm/sec Interpretation Summary Moderate concentric left ventricular hypertrophy. The estimated ejection fraction is 60 %. Unable to assess diastolic dysfunction due to arrhythmia. Mid-Inferior: Mildly hypokinetic The left atrium is mildly enlarged. Unable to estimate RV systolic pressure due to insufficient tricuspid regurgitant envelope. Pt appears to be in atrial flutter. The study was technically difficult. Contrast injection was performed. There is no comparison study available. Ordering Physician: Flo Stratton Referring Physician: Flo Stratton Performed By: Stephanie Amin RDCS
--- NOTE | 2019-03-03 09:03 | EKG12_ITS ---
Test Reason : POST PCI Blood Pressure : / mmHG Vent. Rate : 067 BPM Atrial Rate : 067 BPM P-R Int : 216 ms QRS Dur : 100 ms QT Int : 454 ms P-R-T Axes : 064 -30 -59 degrees QTc Int : 479 ms Sinus rhythm with marked sinus arrhythmia with 1st degree A-V block Left axis deviation Inferior infarct , age undetermined Abnormal ECG When compared with ECG of 03-MAR-2019 08:36, MANUAL COMPARISON REQUIRED, DATA IS UNCONFIRMED Confirmed by MOSES GILMORE, OLAF ([id number]), machine precision engraver SAMANTHA MASTERS ([id number]) on 03/06/2019 11:43:41 AM Referred By: Flo Stratton Confirmed By:OLAF LOPES MD
--- NOTE | 2019-03-03 09:33 | HP.PCM_ITS ---
Problem List (1) Chest pain Status: Acute Qualifiers: Chest pain type: chest pain due to myocardial ischemia (2) Diastolic congestive heart failure Status: Chronic Qualifiers: Heart failure chronicity: chronic Qualified Code(s): I50.32 - Chronic diastolic (congestive) heart failure (3) Morbid obesity Status: Chronic (4) Paroxysmal atrial fibrillation Status: Chronic (5) Nicotine dependence Status: Chronic Qualifiers: Substance use status: in remission (6) Essential (primary) hypertension Status: Chronic (7) STEMI (ST elevation myocardial infarction) Status: Acute Qualifiers: Involved coronary artery: right coronary artery Qualified Code(s): I21.11 - ST elevation (STEMI) myocardial infarction involving right coronary artery History of Present Illness Date of Admission: 03/03/19 Chief Complaint: Chest pain - 1 day The patient is a 58 year old M with past medical history of chronic diastolic CHF, hypertension, paroxysmal atrial fibrillation, super morbid obesity, nicotine dependence who comes in with complaints of chest pain that woke him up. He woke up around 8 AM with left-sided chest pain that radiated to his and was not associated with diaphoresis or nausea or vomiting. He called the EMS. His vitals showed elevated blood pressure 194/120, heart rate 68, SPO2 95% on 2 L of oxygen. His EKG showed ST segment elevations in the inferior leads -leads II, 3, aVF. Patient received initial aspirin, Brilinta and heparin. Patient was sent emergently to the cardiac laboratory machinist. Findings in cardiac cath showed single-vessel CAD of the distal RCA status post emergent PCI with SONDRA and PTCA to the distal RCA. Patient was seen in the ICU post cardiac cath. He denied any chest pain or dizziness or palpitation. His blood pressure is elevated. He was just given his blood pressure medication. His admitting blood work showed WBC count of 8.0, hemoglobin 17.5, platelet count of 136, his BMP was unremarkable. Past Medical History Past Medical History (Chronic Problems): Chronic Problems (Last Updated 02/26/19 @ 07:25 by LILLIE Singh) Diastolic congestive heart failure (Chronic) Morbid obesity (Chronic) Cardiac dysrhythmia (Chronic) atrial flutter, heart block, bradycardia Paroxysmal atrial fibrillation (Chronic) Paroxysmal atrial flutter (Chronic) Nicotine dependence (Chronic) Essential (primary) hypertension (Chronic) Medical History: Medical History (Last Updated 02/26/19 @ 07:25 by Stefan Martinez BUSINESS OFFICE ASSISTANT-C) Diastolic congestive heart failure (Chronic) I50.30 Cardiac dysrhythmia (Chronic) I49.9 atrial flutter, heart block, bradycardia Paroxysmal atrial fibrillation (Chronic) I48.0 Diastolic dysfunction with acute on chronic heart failure (Acute) I50.33 Paroxysmal atrial flutter (Chronic) I48.92 Nicotine dependence (Chronic) F17.200 Essential (primary) hypertension (Chronic) I10 COPD (chronic obstructive pulmonary disease) J44.9 Chronic pain G89.29 Degeneration of intervertebral disc of lumbosacral region M51.37 Failed back syndrome of lumbar spine M96.1 History of deep vein thrombosis (DVT) of lower extremity Z86.718 Morbid obesity E66.01 Obstructive sleep apnea G47.33 Sacrococcygeal disorders, not elsewhere classified M53.3 Sacroiliitis, not elsewhere classified M46.1 Cardiopulmonary arrest Onset Date: 08/20/18 I46.9 Allergies Penicillins Allergy (Verified 02/04/19 08:25) Hives pregabalin [From Lyrica] Allergy (Verified 02/04/19 08:25) Hives red dye Allergy (Verified 02/04/19 08:25) Angioedema Home Medications: Ambulatory Orders Medication Instructions Recorded Clonidine HCl [Catapres] 0.1 mg PO BID 04/04/13 Lisinopril [Zestril] 40 mg PO BID 04/04/13 Budesonide/Formoterol 160/4.5 2 puff INHALATION BID 08/17/18 [Symbicort 160/4.5 Mcg Inhaler (SP)] Aspirin 325 mg PO DAILY 09/27/18 Fluticasone Propionate 1 spray NASAL DAILY PRN PRN 09/27/18 Sotalol HCl [Sotalol AF] 80 mg PO BID 09/27/18 Furosemide 40 mg PO BID #60 tab 09/28/18 Potassium Chloride 20 meq PO DAILY #60 tablet.er 09/28/18 Amlodipine [Norvasc] 5 mg PO DAILY 01/30/19 vitamin B complex tablet 1 tab PO DAILY 02/26/19 Hydrocodone/Acetaminophen [Pax 1 ea PO 4X/DAY PRN PRN 03/03/19 7.5-325 Tablet] Promethazine HCl/Codeine 5 ml PO Q4H 03/03/19 [Promethazine-Codeine Syrup] Sildenafil Citrate [Viagra] 20 mg PO DAILY 03/03/19 Surgical History: Surgical History (Last Reviewed 09/05/18 @ 09:48 by Main Joyce MD) History of total hip arthroplasty Z96.649 History of total knee arthroplasty Z96.659 Surgical History: total hip arthroplasty, total knee arthroplasty, - - s/p back surgeries Psychiatric History: No pertinent psych hx Lives: Spouse/ Significant Other Smoking Status: Current every day smoker Tobacco Use: Cigarettes Alcohol: None Drugs: None - *Family History Maternal Family History: Family History (Last Reviewed 09/05/18 @ 09:48 by Main Joyce MD) Mother CVA (cerebral vascular accident) History Items: Stroke Paternal Family History: Family History (Last Reviewed 09/05/18 @ 09:48 by Main Joyce MD) Mother CVA (cerebral vascular accident) History Items: No pertinent history Review of Systems Constitutional: Denies: Anorexia, Chills, Fever, Malaise, Weakness, Weight Change Eyes: Denies: Blurred vision, Cataracts, Conjunctivae Inflammation, Pain, Redness, Vision Change HEENT: Denies: Difficulty Hearing, Difficulty Swallowing, Head Aches, Hearing Changes, Sinus Congestion, Sinus Drainage, Sore Throat Cardiovascular: Reports: Chest Pain, Chest Pressure, Chest Tightness. Denies: Claudication, Orthopnea, Palpitations, Paroxysmal Noc. Dyspnea Respiratory: Denies: Cough, Hemoptysis, Shortness of breath at rest, Shortness of breath upon exertion, Sputum production Gastrointestinal: Denies: Abdominal Pain, Hematemesis, Hematochezia, Nausea, Vomiting Genitourinary: Denies: Dysuria, Frequency, Incontinence Musculoskeletal: Denies: Joint Pain, Joint stiffness, Joint swelling, Joint Tenderness Skin: Denies: Rash, Wounds Neurological: Denies: Difficulty swallowing, Focal weakness, Numbness, Tingling Psychiatric: Denies: Anxiety, Depression, Homicidal Ideations, Suicidal Ideations Hematologic/ Lymphatic: Denies: Easy Bruising, Easy Bleeding VTE Information - Inpt Only VTE Present on Admission: No VTE Pharm Prophylaxis ordered?: Yes Patient Problems: Active and Suspected Problems (Last Updated 02/26/19 @ 07:25 by Stefan H Roof, BUSINESS OFFICE ASSISTANT- C) Chest pain (Acute) STEMI (ST elevation myocardial infarction) (Acute) - Physical Exam Vitals/I&O's: Vital Signs Temp Pulse Resp BP Pulse Ox 97.6 F L 80 24 H 166/113 H 93 03/03/19 06:38 03/03/19 08:15 03/03/19 08:15 03/03/19 08:15 03/03/19 08:15 Oxygen Flow Rate (L/min) 2 Oxygen Delivery Method Nasal Cannula Weight: 161.2 kg Body Mass Index (BMI) 46.8 General: Alert, Oriented x3, Cooperative, No apparent distress, - - on 2L oxygen HEENT: Atraumatic, PERRLA, EOMI, Normocephalic Oral: Moist Mucosa Neck: Supple Lungs: Clear to auscultation, Normal air movement Cardiovascular: Regular rate, Regular Rhythm, Normal S1, Normal S2, No murmurs Abdomen: Bowel Sounds Present, Soft, Non Tender, Non-Distended, No Hepato- splenomegaly Extremities: Edema - woody, +1 bilateral chronci edema Skin: No rashes, No breakdown Musculoskeletal: No Tenderness to Palpation of Joints or Extremities Lymphatic: No Cervical, Supraclavicular, or Inguinal Adenopathy Neurological: Cranial nerves II-XII grossly intact, Neuro grossly intact Psych/Mental Status: Normal Affect, Appropriate Laboratory Results 03/03/19 06:54: WBC 8.0, RBC 6.28 H, Hgb 17.5 H, Hct 54.8 H, MCV 87.3, MCH 27.9, MCHC 31.9 L, RDW Std Deviation 51.1 H, RDW Coeff of Raheem 17.2 H, Plt Count 136 L , MPV 12.2 H, Immature Gran % (Auto) 0.200, Neut % (Auto) 54.3, Lymph % (Auto) 31.5, [place] % (Auto) 9.5, Eos % (Auto) 4.0, Baso % (Auto) 0.5, Absolute Neuts (auto) 4.4, Absolute Lymphs (auto) 2.52, Nucleated RBC % 0 03/03/19 06:54: Sodium 136, Potassium 3.9, Chloride 102, Carbon Dioxide 31.0, Anion Gap 3 L, BUN 20 H, Creatinine 1.24, Estim Creat Clear Calc 68.32, Est GFR (MDRD) Af Amer 77, Est GFR (MDRD) Non-Af 63, BUN/Creatinine Ratio 16.1, Glucose 136 H, Calcium 8.4 L, Troponin I < 0.015 03/03/19 07:25: Activated Clotting Time 175 H 03/03/19 07:56: Activated Clotting Time 224 H Current Medications Acetaminophen (Tylenol) 650 mg PO Q6H PRN PRN PRN Reason: Pain Score 1-3/10 Hydrocodone Bitart/Acetaminophen (Pax 5mg-325mg) 1 tablet PO 4X/DAY PRN PRN PRN Reason: PAIN 1-10/10 OR FEVER Amlodipine Besylate (Norvasc) 5 mg PO DAILY [facility] Aspirin (Ecotrin) 81 mg PO DAILY@0800 [facility] Atorvastatin Calcium (Lipitor) 80 mg PO QHS [facility] Atropine Sulfate () 0.5 mg IV UD PRN PRN Reason: HR <50 bpm Carvedilol (Coreg) 3.125 mg PO BID [facility] Clonidine (Catapres) 0.1 mg PO BID [facility] Diazepam (Valium) 5 mg PO Q6H PRN PRN PRN Reason: BACK SPASMS/ANXIETY Fluticasone Propionate (Flonase Nasal [place]) 1 spray NASAL DAILY PRN PRN PRN Reason: ALLERGIES Furosemide (Lasix) 40 mg PO BID [facility] Heparin Sodium (Beef Lung) (Heparin 500 Unit/5 Ml (100/Ml)) 500 unit IV UD PRN PRN Reason: HEPARIN FLUSH Sodium Chloride () 1,000 mls @ 150 mls/hr IV .Q6H40M [facility] Stop: 03/03/19 15:42 Nitroglycerin/Dextrose () 250 mls @ 3 mls/hr IV .[id number] [facility] Labetalol HCl (Trandate) 5 mg IV X1 PRN PRN Reason: SBP > 160 when pulling sheath Lisinopril (Zestril) 40 mg PO BID [facility] Metoclopramide HCl (Reglan) 5 mg IV Q6H PRN PRN PRN Reason: NAUSEA/VOMITING Morphine Sulfate () 4 mg IV Q4H PRN PRN PRN Reason: Moderate back pain (3-5/10) Nitroglycerin (Nitrostat) 0.4 mg SUBLINGUAL Q5M PRN PRN Reason: CARDIAC/CHEST PAIN Potassium Chloride (K-Dur) 20 meq PO DAILY [facility] Sodium Chloride () 500 ml IV BOLUS PRN PRN Reason: VASO-VAGAL PROTOCOL Sotalol HCl (Betapace (G)) 80 mg PO BID [facility] Ticagrelor (Brilinta) 90 mg PO BID [facility] Assessment/Plan All Active Problems (Last Updated 02/26/19 @ 07:25 by Stefan Martinez, BUSINESS OFFICE ASSISTANT-C) Chest pain (Acute) STEMI (ST elevation myocardial infarction) (Acute) Dyspnea on exertion (Acute) Diastolic dysfunction with acute on chronic heart failure (Acute) 58 year old M with past medical history of chronic diastolic CHF, hypertension, paroxysmal atrial fibrillation, super morbid obesity, nicotine dependence who comes in with complaints of chest pain that woke him up. 1. Acute STEMI, RHONA score 4 s/p emergent PCI, s/p stent to distal RCA On aspirin, high-dose statin, carvedilol, lisinopril, morphine, nitro as needed, sotalol, Brilinta, nitroglycerin drip Cardiology following 2. Chronic diastolic CHF, no signs of progressive acute CHF, Continue on lasix 40mg po bid 3. Paroxysmal atrial fibrillation, CHADS-Vasc score of at least 2 Not on anticoagulation, on sotalol, carvedilol Will defer to cardiology recommendations 4. Hypertension, uncontrolled secondary to missed medications in the morning Continue on amlodipine, clonidine, lisinopril, sotalol, carvedilol 5. Super morbid obesity BMI 46.9, Lifestyle modifications recommended 6. DVt PPx- Heparin SC from tomorrow Code Visit Inpatient E&M: 29622 Subs Hosp L2
[2019-03-03] MEDS: diazePAM 5 MG Tablet PO (09:47)
[2019-03-03] MEDS: HYDROcodone Bitartrate/Apap 5/325 Tablet PO ×3 (09:47→21:15)
[2019-03-03] MEDS: Sotalol Hydrochloride 80 MG Tablet PO ×2 (09:48→21:13)
[2019-03-03] MEDS: Furosemide 40 MG Tablet PO (09:48)
[2019-03-03] MEDS: amLODIPine 5 MG Tablet PO (09:48)
[2019-03-03] MEDS: Lisinopril 40 MG Tablet PO ×2 (09:48→22:09)
[2019-03-03] MEDS: Carvedilol 3.125 MG TABLET PO ×2 (09:49→22:09)
[2019-03-03] MEDS: cloNIDine HCl 0.1 MG Tablet PO ×2 (09:49→21:14)
[2019-03-03] MEDS: Fluticasone 0.05% 1 SPRAY NASAL.SRY NASAL (09:50)
--- NOTE | 2019-03-03 10:00 | EKG12_ITS ---
Test Reason : POST PCI Blood Pressure : / mmHG Vent. Rate : 074 BPM Atrial Rate : 074 BPM P-R Int : 228 ms QRS Dur : 104 ms QT Int : 408 ms P-R-T Axes : 056 026 082 degrees QTc Int : 452 ms Sinus rhythm with 1st degree A-V block Inferior infarct , possibly acute * ACUTE AL Confirmed by MOSES GILMORE, OLAF ([id number]), newspaper editor managing SAMANTHA MASTERS ([id number]) on 03/06/2019 11:44:10 AM Referred By: Flo Stratton Confirmed By:OLAF LOPES MD
[2019-03-03 11:11] LABS: Bedside Glucose 118 mg/dL (70-110)
[2019-03-03 11:49] LABS: AST(SGOT) 106 U/L (15-37); Alanine Aminotransfer ALT/SGPT 25 U/L (16-61); Albumin, Serum 3.3 g/dL (3.2-5.0); Alkaline Phosphatase 62 U/L (45-117); Bilirubin, Direct 0.17 mg/dL (0.00-0.30); Globulin 3.7 g/dL (2.2-4.2)
[2019-03-03] MEDS: hydrALAZINE 20 MG/ML Vial 10 MG IV (13:06)
[2019-03-03] MEDS: hydrALAZINE 10 MG Tablet PO ×2 (13:11→21:13)
[2019-03-03] MEDS: Isosorbide Mononitrate 30 MG Tablet PO (13:28)
[2019-03-03] MEDS: Budesonide Respules 0.5 MG/2 ML AMPUL.NEB. INHALATION (19:20)
[2019-03-03] MEDS: Albuterol 2.5 MG/3 ML VIAL.NEB. INHALATION (19:20)
[2019-03-03] MEDS: Atorvastatin Calcium 80 MG Tablet PO (21:14)
[2019-03-03] MEDS: TICAGRELOR 90 MG TABLET PO (21:15)
[2019-03-03] MEDS: traZODone 50 MG Tablet PO (22:09)
[2019-03-04] VITALS (36 sets, daily range): BP systolic 124–165; BP diastolic 70–130; PULSE 57–85; RESP 12–28; TEMP 36.6–37.1; O2SAT 95–99
[2019-03-04] MEDS: HYDROcodone Bitartrate/Apap 5/325 Tablet PO ×2 (03:06→09:33)
[2019-03-04 03:52] LABS: Hematocrit 44.5 % (40-54); Hemoglobin 14.7 g/dL (13.0-16.5); Mean Corpuscular Hgb 28.4 pg (27.0-32.0); Mean Corpuscular Volume 85.9 fL (80-94); Mean Platelet Vol. 11.8 fl (6.2-12.0); Platelet Count 142 K/mm3 (150-450); RBC Distribution Width SD 50.1 fl (35.1-43.9); Red Blood Count 5.18 M/mm3 (4.6-6.2); White Blood Count 7.9 K/mm3 (4.4-11.0)
[2019-03-04 04:07] LABS: ALB/GLOB Ratio 0.8 RATIO (0.9-2.4); AST(SGOT) 111 U/L (15-37); Alanine Aminotransfer ALT/SGPT 27 U/L (16-61); Albumin, Serum 2.9 g/dL (3.2-5.0); Alkaline Phosphatase 59 U/L (45-117); Anion Gap 4 (5-15); BUN 15 mg/dL (7-18); BUN/Creat Ratio 12.9 RATIO (10-20); Calcium,Total 8.2 mg/dL (8.5-10.1); Chloride 104 mmol/L (98-107); Creatinine, Serum 1.16 mg/dL (0.70-1.30); EST Glomerular Filtration Rate 68 mL/min (>60); Est Glom Filt Rate - Afr Amer 83 mL/min (>60); Estimated Creatinine Clearance 77.49 ml/min; Globulin 3.5 g/dL (2.2-4.2); Glucose 145 mg/dL (74-106); Potassium 3.7 mmol/L (3.5-5.1); Protein, Total 6.4 g/dL (6.4-8.2); Sodium Level 137 mmol/L (136-145)
[2019-03-04] MEDS: hydrALAZINE 10 MG Tablet PO ×3 (05:28→22:09)
[2019-03-04] MEDS: Budesonide Respules 0.5 MG/2 ML AMPUL.NEB. INHALATION ×2 (06:37→18:49)
[2019-03-04] MEDS: Albuterol 2.5 MG/3 ML VIAL.NEB. INHALATION ×2 (06:37→18:49)
[2019-03-04] MEDS: Sotalol Hydrochloride 80 MG Tablet PO ×2 (08:09→17:38)
[2019-03-04] MEDS: Lisinopril 40 MG Tablet PO ×2 (08:09→22:09)
[2019-03-04] MEDS: Furosemide 40 MG Tablet PO (08:09)
[2019-03-04] MEDS: Carvedilol 3.125 MG TABLET PO (08:09)
[2019-03-04] MEDS: amLODIPine 5 MG Tablet PO (08:09)
[2019-03-04] MEDS: cloNIDine HCl 0.1 MG Tablet PO ×2 (08:09→21:06)
[2019-03-04] MEDS: Isosorbide Mononitrate 60 MG Tablet 30 MG PO ×3 (09:28→09:53)
[2019-03-04] MEDS: Aspirin E.C. 81 MG Tablet PO (09:28)
[2019-03-04] MEDS: TICAGRELOR 90 MG TABLET PO ×2 (09:28→21:06)
--- NOTE | 2019-03-04 09:36 | CASEMGMT ---
RN CM Assessment Presentation: STEMI Intro role of CM and purpose of RN CM assessment to patient. Pt is awake, alert and oriented, able to participate. Demographics, PCP and Pharmacy verified. Pt states he is independent, no care needs and no concerns re:discharge PCP: Dr. Terry Turk Specialists: Dr. Stratton Preferred Pharmacy: [facility] Pharmacy Insurance: MMO Prescription Benefit: yes. Brilinta savings card given to pt and reviewed. LNOK: Terri Crowley, BROOK Living Arrangements: Lives independently. States no care needs. Transportation: drives DME: none. denies CPAP, or home oxygen Patient DC goals: Home DC PLAN: Home. Gi SCOTT RN ACM
--- NOTE | 2019-03-04 10:00 | EKG12_ITS ---
Test Reason : MORNING EKG Blood Pressure : / mmHG Vent. Rate : 075 BPM Atrial Rate : 075 BPM P-R Int : 250 ms QRS Dur : 098 ms QT Int : 428 ms P-R-T Axes : 057 010 -57 degrees QTc Int : 477 ms Sinus rhythm with 1st degree A-V block Inferior infarct , age undetermined Poor R wave progression Abnormal ECG Confirmed by JOSSY GILMORE, MIAN ([id number]), newspaper or periodical editor SAMANTHA MASTERS ([id number]) on 03/06/2019 1:31:09 PM Referred By: Flo Stratton Confirmed By:MIAN FENTON MD
--- NOTE | 2019-03-04 10:36 | PN.CARD_ITS ---
Subjectve: Patient doing fairly well this morning, chest pain essentially has resolved. She he does complain of a mild headache with a result of IV nitroglycerin. Right groin is clean/dry/intact. The patient had normal sinus rhythm on telemetry until around 11:50 PM last evening when he converted to atrial flutter with controlled ventricular response. Antihypertensive medications have been applied this morning. EKG prior to atrial flutter showed normal sinus rhythm with resolving inferior ST changes and T wave inversion. Creatinine and hemoglobin within nominal limits. Objective: Vital Signs Temp Pulse Resp BP Pulse Ox 98.5 F 72 20 H 147/92 H 98 03/04/19 08:00 03/04/19 10:26 03/04/19 10:26 03/04/19 10:26 03/04/19 10:26 Oxygen Flow Rate (L/min) 2 Oxygen Delivery Method Room Air Weight: 361 lb 12.457 oz Body Mass Index (BMI) 46.8 Intake and Output for Last 24 Hours 03/02/19 03/03/19 03/04/19 23:59 23:59 23:59 Intake Total 2563.25 / 2569.25 350.80 / 350.80 Output Total 2300 / 2300 500 / 500 Balance 263.25 / 269.25 -149.20 / -149.20 General: Awake, Alert, Oriented x 3 HEENT: PERRL, EOMI, Sclera Non Icteric Neck: Supple, Good ROM, No Lymph Node Enlargement Lungs: Clear to auscultation Cardiovascular: Irregular Rhythm, Normal S1, Normal S2, No Murmurs, No Rubs, No Gallops Vascular: No Carotid Bruits, Normal Femoral Pulses, Normal Radial Pulses, Normal Dorsalis Pedal Pulse, Normal Posterior Tibial Pulses Abdomen: Bowel Sounds Present, Soft, Non Tender, No HSM, No Organomegaly Extremities: No Cyanosis, No Clubbing, No edema Neurological: No Focal Motor or Sensory Deficit 03/03/19 11:00: Troponin I 28.600 H* 03/03/19 11:00: Total Bilirubin 0.60, Direct Bilirubin 0.17 03/04/19 03:35: WBC 7.9, RBC 5.18, Hgb 14.7, Hct 44.5, MCV 85.9, MCH 28.4, MCHC 33.0, Plt Count 142 L, MPV 11.8 03/04/19 03:35: Sodium 137, Potassium 3.7, Chloride 104, Carbon Dioxide 29.0, Anion Gap 4 L, BUN 15, Creatinine 1.16, Est GFR (MDRD) Af Amer 83, Est GFR (MDRD) Non-Af 68, BUN/Creatinine Ratio 12.9, Glucose 145 H, Calcium 8.2 L, Total Bilirubin 0.60 Rhythm: EKG: ECHO: Pending Stress Test: Cardiac Cath: PCI: CT Surgery: Holter monitor: EPS: PPM: CXR: Chest CT Scan: Medical Necessity - Tobacco Use Smoking Status: Current every day smoker Tobacco Use: Cigarettes Assessment/Plan 1. Coronary artery disease: The patient presented yesterday morning with acute onset of chest pain at around 5:30 in the morning, which did not resolved and upon presentation was found to have an acute inferior wall myocardial infarc tion. He was brought emergently to the [facility] where he underwent diagnostic coronary angiogram and emergent angioplasty and drug-eluting stenting to the distal right coronary artery. He received a 3.5X 16 Promus Synergy stent, postdilated to 4.0 mm. He had nonobstructive disease in the mid right coronary, and questionable disease in an inferior branch of the obtuse marginal as well as in the mid left circumflex. His LAD had minimal nonobstructive disease. His LV function showed moderate inferior hypokinesis with echo pending. At this point the patient will continue baby aspirin, Brilinta, Coreg, Imdur, hydralazine and lisinopril. We will titrate up his Coreg to achieve better blood pressure and heart rate control. We will attempt to wean off his nitroglycerin drip by increasing his Imdur. In 2 to 3 weeks time once the patient has recovered, we will proceed with a treadmill/echocardiogram to assess for inferolateral hypokinesis and determine whether he requires additional elective angioplasty and stenting of his left circumflex and obtuse marginal branches. 2. Atrial flutter: The patient developed atrial flutter around midnight last evening, and has been rate controlled ever since. I would hold off on full anticoagulation given the recent axis of his right groin. Hopefully this will convert back to normal sinus rhythm. We will increase his Coreg to 6.25 mg p.o. twice daily. I do not believe the patient requires amiodarone or DC cardioversion at this time. 3. Hyperlipidemia: Continue statin based medications. Repeat lipid profile in 6 weeks time. 4. Obstructive sleep apnea: The patient has signs and symptoms of possible obstructive sleep apnea and would recommend an outpatient sleep study. 5. Thank you very much for the opportunity to participate in the cardiac care of your patient. We will keep the patient in the ICU 1 more day unless or until a bed is needed. Code Visit Inpatient E&M: 00387 Subs Hosp L2
--- NOTE | 2019-03-04 11:44 | CRPHASE1_ITS ---
Patient Communication PHII Cardiac Rehab Discussed with Patient:: Yes Guide to Cardiac Rehab Given to Patient:: Yes Cardiac Rehab Facility Choice List Given to Patient:: Yes Choice Program [facility] PHII:: Communication Given to CR, Refer to [facility] Senior Data Integration Developer:: Flo Stratton Phase II Cardiac Rehab:: Yes Sessions:: 36 sessions - 3 days/wk, 12 weeks Risk Factors/Lifestyle Smoking Status: Current every day smoker Hx Hypertension: Yes Hx Diabetes Mellitus Type 1: No Hx Diabetes Mellitus Type 2: No Hx Metabolic Disorders: Yes Hx Dyslipidemia: Yes Hx Obesity: Yes Height: 6 ft 3 in - BMI 4.0 Stress: Home/Family Risk Factor for Sedentary Lifestyle: Moderate Risk Family History: Family History (Last Reviewed 09/05/18 @ 09:48 by Mani Joyce MD) Mother CVA (cerebral vascular accident) Phase I Education Given On:: [place], Nutrition - FAMILY AT BEDSIDE, Antiplatelet medication, Smoking cessation Issues Affecting Care:: None Knowledge of Condition:: Yes Learning Preferences: Verbal, Written Medical/Surgical History [place]:: No CAD:: Yes COPD:: Yes Diabetes:: No Hypertension:: Yes Dyslipidemia:: Yes Arrhythmias:: Yes - ATRIAL FIB/FLUTTER PVD:: Yes Discharge/Home/Social Eval Discharge Disposition: Home Cardiac Rehabilitation Info Cardiac Rehabilitation Program Information: Cardiac Rehabilitation is important for patients like you who are recovering from a heart problem. Cardiac rehabilitation programs are recognized as integral to the continued care of the patient with coronary heart disease. The cardiac rehabilitation program is designed to optimize a patient's physical, psychological, and social functioning. Health rn wound care work in cardiac rehabilitation programs and assist you with getting the treatments you need to get stronger and healthier - like exercise, healthy eating habits, and medications. Cardiac rehabilitation has been show to help people with heart problems live longer and have better life enjoyment than people who do not go to cardiac rehabilitation. Please contact the Cardiac Rehabilitation Program at [facility] at in two weeks if you have not heard from them.
--- NOTE | 2019-03-04 11:48 | CRPH1.INSTRU ---
General Education CAD and cardiac anatomy and function:: Patient communicates acknowledgment - FAMILY AT BEDSIDE, Family communicates acknowledgment Explanation of diagnoses and procedures:: Patient communicates acknowledgment, Family communicates acknowledgment Sign/Symptoms of [place]:: Patient communicates acknowledgment, Family communicates acknowledgment Antiplatelet therapy: Patient communicates acknowledgment, Family communicates acknowledgment Proper use of NTG-SL: Not instructed Emergency procedures and activation of EMS: Patient communicates acknowledgment, Family communicates acknowledgment Compliance of all prescribed medications: Patient communicates acknowledgment, Family communicates acknowledgment Smoking Patient Nicotine/Smoking Risk Factors Are:: Cigarettes Recommendations Include:: Smoking cessation strategies/Smoking packet, Participation in a smoking cessation program Nicotine/Smoking Response Code:: Patient communicates acknowledgment, Family communicates acknowledgment Dyslipidemia Patient Dyslipidemia Risk Factors Are:: Total Cholesterol, Triglycerides, HDL, LDL Recommendations Include:: Lipid profile not available, Reviewed NCEP/ATP guidelines, Therapeutic Lifestyle Change dietary guidelines Dyslipidemia Response Code:: Patient communicates acknowledgment, Family communicates acknowledgment Overweight/Obesity Patient Overweight/Obesity Risk Factors Are:: Obesity - > or = 30 Recommendations Include:: Weight loss of 5-10%, Reduced calorie diet, Exercise 5-7 times/week Overweight/Obesity:: Patient communicates acknowledgment, Family communicates acknowledgment Hypertension Recommendations Include:: Maintain BP <130/85, DASH dietary guidelines, Decrease/maintain normal body weight, Moderation of ETOH Hypertension:: Patient communicates acknowledgment, Family communicates acknowledgment Heart Disease Patient Heart Disease Risk Factors Are:: Previous cardiac event - HX CARDIOPULMONARY ARREST Diabetes Patient Diabetes Risk Factors Are:: No documented hx of diabetes Metabolic Syndrome Patient Metabolic Syndrome Risk Factors Are [3 of 5]:: Waist circumference > 35 [female] or 40 [male], Hypertension, Low HDL <40 [male] or < 50 [female] Recommendations Include:: Reinforce compliance to risk factor modifications, Encouraged follow-up with Primary Care Physician Metabolic Syndrome Response Code:: Patient communicates acknowledgment, Family communicates acknowledgment Sedentary Patient Sedentary Risk Factors Are:: Lack of regular exercise Recommendations Include:: Aerobic exercise 5-7 times/week for 20-30 minutes continuously, Benefits of regular exercise, Discussed home walking program, Monitored Outpatient Cardiac Rehab Sedentary Response Code:: Patient communicates acknowledgment, Family communicates acknowledgment Stress Recommendations Include:: Identification of stressors, and assessment of coping skills, Stress management techniques Stress Response Code:: Patient communicates acknowledgment, Family communicates acknowledgment
--- NOTE | 2019-03-04 17:11 | PN_ITS ---
Patient Problems: Active and Suspected Problems (Last Updated 03/04/19 @ 10:16 by Clare Hatch) STEMI (ST elevation myocardial infarction) (Acute 03/03/19) Subjective: Patient was seen and examined today in the ICU, he complains of headache, his nitro drip is being weaned downward. I told the patient since he is on Brilinta and aspirin, he will not be allowed to take Advil as an outpatient. And I explained to him that if he does take Advil, it increases the chance of bleeding in the gastrointestinal tract. - Physical Exam Vitals/I&O's: Vital Signs Temp Pulse Resp BP Pulse Ox 98.5 F 61 18 124/78 H 97 03/04/19 12:00 03/04/19 16:00 03/04/19 16:00 03/04/19 16:00 03/04/19 16:00 Oxygen Flow Rate (L/min) 2 Oxygen Delivery Method Room Air Weight: 164.1 kg Body Mass Index (BMI) 46.8 Intake and Output for Last 24 Hours 03/02/19 03/03/19 03/04/19 23:59 23:59 23:59 Intake Total 2563.25 / 2569.25 831.75 / 831.75 Output Total 2300 / 2300 900 / 900 Balance 263.25 / 269.25 -68.25 / -68.25 General: Alert, Oriented x3, Cooperative, No apparent distress, Well developed, Well nourished HEENT: Atraumatic, PERRLA, EOMI, Normocephalic Oral: Moist Mucosa Neck: Supple, No JVD, Negative Carotid Bruits, No Nuchal Rigidity, Trachea Midline, Thyroid Normal Size and Texture Lungs: Clear to auscultation, Normal air movement, No rhonchi, No wheeze, No rales Cardiovascular: Regular rate, Regular Rhythm, Normal S1, Normal S2, No murmurs, PMI Normal, No rub noted Abdomen: Bowel Sounds Present, Soft, Non Tender, Non-Distended Extremities: No clubbing, No cyanosis, Capillary Refill Less than 3 Seconds Skin: No rashes, No breakdown Musculoskeletal: No Tenderness to Palpation of Joints or Extremities Neurological: Cranial nerves II-XII grossly intact, Neuro grossly intact, Sensory exam intact to light touch and pain Psych/Mental Status: Normal Affect, Appropriate, Alert and oriented to time, place, person, mood and affect Laboratory Results 03/04/19 03:35: WBC 7.9, RBC 5.18, Hgb 14.7, Hct 44.5, MCV 85.9, MCH 28.4, MCHC 33.0, RDW Std Deviation 50.1 H, RDW Coeff of Raheem 16.0 H, Plt Count 142 L, MPV 11.8 03/04/19 03:35: Sodium 137, Potassium 3.7, Chloride 104, Carbon Dioxide 29.0, Anion Gap 4 L, BUN 15, Creatinine 1.16, Estim Creat Clear Calc 77.49, Est GFR (MDRD) Af Amer 83, Est GFR (MDRD) Non-Af 68, BUN/Creatinine Ratio 12.9, Glucose 145 H, Calcium 8.2 L, Total Bilirubin 0.60, AST 111 H, ALT 27, Alkaline Phosphatase 59, Total Protein 6.4, Albumin 2.9 L, Globulin 3.5, Albumin/Globulin Ratio 0.8 L Current Medications Hydrocodone Bitart/Acetaminophen ([place] 5mg-325mg) 1 tablet PO 4X/DAY PRN PRN PRN Reason: PAIN 1-10/10 OR FEVER Last Admin: 03/04/19 09:33 Dose: 1 tablet Documented by: Albuterol Sulfate (Ventolin Aerosols) 2.5 mg INHALATION Q6HWA.RT [facility] Last Admin: 03/04/19 13:15 Dose: Not Given Documented by: Amlodipine Besylate (Norvasc) 5 mg PO DAILY [facility] Last Admin: 03/04/19 08:09 Dose: 5 mg Documented by: Aspirin (Ecotrin) 81 mg PO DAILY@0800 [facility] Last Admin: 03/04/19 09:28 Dose: 81 mg Documented by: Atorvastatin Calcium (Lipitor) 80 mg PO QHS [facility] Last Admin: 03/03/19 21:14 Dose: 80 mg Documented by: Atropine Sulfate () 0.5 mg IV UD PRN PRN Reason: HR <50 bpm Budesonide (Pulmicort Aerosol) 0.5 mg INHALATION Q12H.RT [facility] Last Admin: 03/04/19 06:37 Dose: 0.5 mg Documented by: Carvedilol (Coreg) 6.25 mg PO BID [place] Clonidine (Catapres) 0.1 mg PO BID [facility] Last Admin: 03/04/19 08:09 Dose: 0.1 mg Documented by: Diazepam (Valium) 5 mg PO Q6H PRN PRN PRN Reason: BACK SPASMS/ANXIETY Last Admin: 03/03/19 09:47 Dose: 5 mg Documented by: Fluticasone Propionate (Flonase Nasal [place]) 1 spray NASAL DAILY PRN PRN PRN Reason: ALLERGIES Last Admin: 03/03/19 09:50 Dose: 1 spray Documented by: Furosemide (Lasix) 40 mg PO BID@0900,1600 [facility] Last Admin: 03/04/19 14:53 Dose: Not Given Documented by: Heparin Sodium (Beef Lung) (Heparin 500 Unit/5 Ml (100/Ml)) 500 unit IV UD PRN PRN Reason: HEPARIN FLUSH Hydralazine HCl (Apresoline) 10 mg PO TID [facility] Last Admin: 03/04/19 14:50 Dose: 10 mg Documented by: Nitroglycerin/Dextrose () 250 mls @ 3 mls/hr IV .[id number] [facility] Last Infusion: 03/04/19 11:45 Dose: 0 mcg/min, 0 mls/hr Documented by: Dextrose (Dextrose 10%-Water) 250 mls @ 999 mls/hr IV X1 PRN; Protocol PRN Reason: HYPOGLYCEMIA Isosorbide Mononitrate (Imdur) 60 mg PO DAILY [facility] Labetalol HCl (Trandate) 5 mg IV X1 PRN PRN Reason: SBP > 160 when pulling sheath Lisinopril (Zestril) 40 mg PO BID [facility] Last Admin: 03/04/19 08:09 Dose: 40 mg Documented by: Metoclopramide HCl (Reglan) 5 mg IV Q6H PRN PRN PRN Reason: NAUSEA/VOMITING Morphine Sulfate () 4 mg IV Q4H PRN PRN PRN Reason: Moderate back pain (3-5/10) Last Admin: 03/03/19 09:48 Dose: 4 mg Documented by: Nicotine (Nicoderm Cq (Pbkc)) 14 mg TRANSDERM. DAILY [facility] Last Admin: 03/04/19 09:28 Dose: 14 mg Documented by: Nitroglycerin (Nitrostat) 0.4 mg SUBLINGUAL Q5M PRN PRN Reason: CARDIAC/CHEST PAIN Ondansetron HCl (Zofran) 4 mg IV Q8H PRN PRN PRN Reason: NAUSEA/VOMITING Potassium Chloride (K-Dur) 20 meq PO DAILY [facility] Last Admin: 03/04/19 09:28 Dose: 20 meq Documented by: Sodium Chloride () 500 ml IV BOLUS PRN PRN Reason: VASO-VAGAL PROTOCOL Sotalol HCl (Betapace (G)) 80 mg PO BID [facility] Last Admin: 03/04/19 08:09 Dose: 80 mg Documented by: Ticagrelor (Brilinta) 90 mg PO BID [facility] Last Admin: 03/04/19 09:28 Dose: 90 mg Documented by: Trazodone HCl (Desyrel) 50 mg PO QHS PRN PRN Reason: SLEEP Last Admin: 03/03/19 22:09 Dose: 50 mg Documented by: Medical Necessity - Tobacco Use Smoking Status: Current every day smoker Tobacco Use: Cigarettes Assessment/Plan All Active Problems (Last Updated 03/04/19 @ 10:16 by Clare Hatch) History of coronary artery stent placement (Resolved 03/03/19) STEMI (ST elevation myocardial infarction) (Acute 03/03/19) Dyspnea on exertion (Acute) Diastolic dysfunction with acute on chronic heart failure (Acute) Chest pain (Resolved) #1 STEMI-continue present care per cardiology, postop day #1 drug-eluting stent placement of the distal right coronary artery #2 paroxysmal atrial flutter-patient appears to be in sinus rhythm at this time #3 morbid obesity #4 essential hypertension Code Visit Inpatient E&M: 56459 Subs Hosp L2
[2019-03-04] MEDS: Acetaminophen/Butalbital/Caffe 1 Tablet PO (17:36)
[2019-03-04] MEDS: Carvedilol 6.25 MG Tablet PO (21:06)
[2019-03-04] MEDS: Atorvastatin Calcium 80 MG Tablet PO (21:07)
[2019-03-04] MEDS: traZODone 50 MG Tablet PO (22:09)
[2019-03-05] VITALS (16 sets, daily range): BP systolic 96–159; BP diastolic 74–125; PULSE 59–87; RESP 16–80; TEMP 36.6–36.9; O2SAT 93–100
[2019-03-05] MEDS: hydrALAZINE 10 MG Tablet PO (05:38)
[2019-03-05] MEDS: Budesonide Respules 0.5 MG/2 ML AMPUL.NEB. INHALATION (07:19)
[2019-03-05] MEDS: Albuterol 2.5 MG/3 ML VIAL.NEB. INHALATION (07:19)
[2019-03-05] MEDS: Sotalol Hydrochloride 80 MG Tablet PO (07:49)
[2019-03-05] MEDS: Aspirin E.C. 81 MG Tablet PO (07:49)
[2019-03-05] MEDS: Furosemide 40 MG Tablet PO (07:49)
[2019-03-05] MEDS: TICAGRELOR 90 MG TABLET PO (07:50)
[2019-03-05] MEDS: Carvedilol 6.25 MG Tablet PO (07:50)
[2019-03-05] MEDS: cloNIDine HCl 0.1 MG Tablet PO (07:50)
[2019-03-05] MEDS: Lisinopril 40 MG Tablet PO (07:51)
[2019-03-05] MEDS: Isosorbide Mononitrate 60 MG Tablet PO (07:51)
[2019-03-05] MEDS: amLODIPine 5 MG Tablet PO (07:51)
[2019-03-05] MEDS: diazePAM 5 MG Tablet PO (08:01)
[2019-03-05] MEDS: hydrALAZINE 25 MG Tablet PO (08:13)
--- NOTE | 2019-03-05 08:20 | PN.CARD_ITS ---
Subjectve: Patient doing much better this morning. Converted to normal sinus rhythm at around 5:15 PM last evening. The patient reports that he is aware when he goes in and out of atrial flutter. Patient still remains hypertensive. Right groin is clean/dry/intact, no thrills, bruits or hematoma. Objective: Vital Signs Temp Pulse Resp BP Pulse Ox 98 F 81 18 141/111 H 100 03/05/19 04:00 03/05/19 08:13 03/05/19 07:19 03/05/19 06:00 03/05/19 07:19 Oxygen Flow Rate (L/min) 2 Oxygen Delivery Method Room Air Weight: 361 lb 12.457 oz Body Mass Index (BMI) 46.8 Intake and Output for Last 24 Hours 03/03/19 03/04/19 03/05/19 23:59 23:59 23:59 Intake Total 2563.25 / 2569.25 1311.75 / 1811.75 740 / 740 Output Total 2300 / 2300 1700 / 2350 1200 / 1200 Balance 263.25 / 269.25 -388.25 / -538.25 -460 / -460 General: Awake, Alert, Oriented x 3 HEENT: PERRL, EOMI, Sclera Non Icteric Neck: Supple, Good ROM, No Lymph Node Enlargement Lungs: Clear to auscultation Cardiovascular: Regular Rhythm, Normal S1, Normal S2, No Murmurs, No Rubs, No Gallops Vascular: No Carotid Bruits, Normal Femoral Pulses, Normal Radial Pulses, Normal Dorsalis Pedal Pulse, Normal Posterior Tibial Pulses Abdomen: Bowel Sounds Present, Soft, Non Tender, No HSM, No Organomegaly Extremities: No Cyanosis, No Clubbing, No edema Neurological: No Focal Motor or Sensory Deficit Rhythm: EKG: ECHO: Echo showed an EF around 60% with minimal inferior hypokinesis, unable to quantitate RVSP. Stress Test: Cardiac Cath: PCI: CT Surgery: Holter monitor: EPS: PPM: CXR: Chest CT Scan: Medical Necessity - Tobacco Use Smoking Status: Current every day smoker Tobacco Use: Cigarettes Assessment/Plan 1. Coronary artery disease: The patient presented the morning of 03/03/2019 with acute onset of chest pain at around 5:30 in the morning, which did not resolved and upon presentation was found to have an acute inferior wall myocardial infarction. He was brought emergently to the [facility] where he underwent diagnostic coronary angiogram and emergent angioplasty and drug- eluting stenting to the distal right coronary artery. He received a 3.5X 16 Promus Synergy stent, postdilated to 4.0 mm. He had nonobstructive disease in the mid right coronary, and questionable disease in an inferior branch of the obtuse marginal as well as in the mid left circumflex. His LAD had minimal nonobstructive disease. His LV function showed moderate inferior hypokinesis with echo pending. At this point the patient will continue baby aspirin, Brilinta, Coreg, Imdur, hydralazine and lisinopril. His nitroglycerin drip was weaned off yesterday, but his blood pressure still remains an issue. We will increase his hydralazine to 25 mg 3 times daily today. If this does not work, we will can increase his Imdur to 60 mg p.o. twice daily. In 2 to 3 weeks time once the patient has recovered, we will proceed with a treadmill/echocardiogram to assess for inferolateral hypokinesis and determine whether he requires additional elective angioplasty and stenting of his left circumflex and obtuse marginal branches. 2. Atrial flutter: Patient reports that he goes in and out of atrial flutter on a regular basis, but converted to normal sinus rhythm around 5:15 PM and has remained in sinus rhythm overnight. Recommend continuing his sotalol, Coreg, and keeping his potassium above 4.0 magnesium of 2.0. I would hold off on full anticoagulation given the recent access of his right groin. Hopefully he will remain in normal sinus rhythm. We have increased his Coreg to 6.25 mg p.o. twice daily. I do not believe the patient requires amiodarone at this time. 3. Hyperlipidemia: Continue statin based medications. Repeat lipid profile in 6 weeks time. 4. Obstructive sleep apnea: The patient has signs and symptoms of possible obstructive sleep apnea and would recommend an outpatient sleep study. 5. Thank you very much for the opportunity to participate in the cardiac care of your patient. We will downgrade the patient status to PCU status. If his blood pressure is well controlled by this evening, he may be discharged home on current antihypertensive medical therapy and aspirin/Brilinta. He will follow- up with Dr. Joyce going forward. Code Visit Inpatient E&M: 49071 Subs Hosp L2
--- NOTE | 2019-03-05 11:35 | DCINST_ITS ---
- Discharge Diagnoses Current Active Problems: Current Active and Chronic Problems (Last Updated 03/04/19 @ 10:16 by Clare Hatch) Atherosclerosis of coronary artery of [place] heart without angina pectoris (Chronic) STEMI (ST elevation myocardial infarction) (Acute 03/03/19) You will use the following diet at home:: No restrictions Your food should be the consistency of: Regular Your liquids should be the consistency of: Regular/Thin Discharge Activity: Return to Normal Activity Weight Bearing Status: Full weight bearing Additional Instructions: No Viagra-discuss this with Dr. Joyce Allergies/Adverse Reactions: Allergies Penicillins Allergy (Verified 02/04/19 08:25) Hives pregabalin [From Lyrica] Allergy (Verified 02/04/19 08:25) Hives red dye Allergy (Verified 02/04/19 08:25) Angioedema Medications to take at Discharge Clonidine HCl [Catapres] 0.1 mg PO BID 04/04/13 Lisinopril [Zestril] 40 mg PO BID 04/04/13 Budesonide/Formoterol 160/4.5 [Symbicort 160/4.5 Mcg Inhaler (SP)] 2 puff INHALATION BID 08/17/18 Fluticasone Propionate 1 spray NASAL DAILY PRN PRN 09/27/18 Sotalol HCl [Sotalol AF] 80 mg PO BID 09/27/18 Furosemide 40 mg PO BID #60 tab 09/28/18 Potassium Chloride 20 meq PO DAILY #60 tablet.er 09/28/18 Amlodipine [Norvasc] 5 mg PO DAILY 01/30/19 vitamin B complex 1 tab PO DAILY 02/26/19 Hydrocodone/Acetaminophen [[place] 7.5-325 Tablet] 1 ea PO 4X/DAY PRN PRN 03/03/19 Promethazine HCl/Codeine [Promethazine-Codeine Syrup] 5 ml PO Q4H 03/03/19 Aspirin E.C. [Ecotrin] 81 mg PO DAILY@0800 tab 03/05/19 Atorvastatin Calcium [Lipitor] 80 mg PO QHS #30 tab 03/05/19 Carvedilol [Coreg (Beta Zac)] 6.25 mg PO BID #60 tab 03/05/19 Isosorbide Mononitrate [Imdur] 60 mg PO DAILY #30 tab 03/05/19 Nicotine [Nicoderm] 14 mg TRANSDERM. DAILY #30 patch 03/05/19 Ticagrelor [Brilinta] 90 mg PO BID #60 tab 03/05/19 hydrALAZINE [Apresoline] 25 mg PO TID #90 tab 03/05/19 The following prescriptions were given: hydrALAZINE [Apresoline] 25 mg PO TID #90 tab Transmission Status: Pending to [id number] Ticagrelor [Brilinta] 90 mg PO BID #60 tab Transmission Status: Pending to [id number] Carvedilol [Coreg (Beta Zac)] 6.25 mg PO BID #60 tab Transmission Status: Pending to [id number] Isosorbide Mononitrate [Imdur] 60 mg PO DAILY #30 tab Transmission Status: Pending to [id number] Atorvastatin Calcium [Lipitor] 80 mg PO QHS #30 tab Transmission Status: Pending to [id number] Nicotine [Nicoderm] 14 mg TRANSDERM. DAILY #30 patch Transmission Status: Pending to [id number] Orders to be completed after discharge: Phase II, Outpatient Cardiac Rehab Location: None Selected Primary Care Physician: Terry Turk MD [Primary Care Provider] - Please follow up with your Primary Care Physician in: in 3 weeks Test Results: Test results from this visit will be discussed in further detail at your follow- up appointment, if applicable. Please Follow Up With: Main Joyce MD When: as directed-call for appointment by this Monday if office doesnt call you
--- NOTE | 2019-03-05 12:52 | CASEMGMT ---
Case Management DC Progress Note: [phone] [place]. States patient's copay for Brilinta is $330/month, This keno writer provided Brilinta card over the phone and copay now $130/month. Called ICU fl, s/w nurse Henning and [facility] patient has already left. This keno writer unable to inform patient of copay for Brilinta. Andrew Evangelista RNCM
--- NOTE | 2019-03-07 18:26 | DS.PCM_ITS ---
Discharge Date and Diagnosis Date of Admission: 03/03/19 Date of Discharge: 03/05/19 - Primary Discharge Diagnosis #1 STEMI-due to right coronary artery occlusion #2 paroxysmal atrial flutter #3 morbid obesity #4 essential hypertension #5 hyperlipidemia - Secondary Discharge Diagnosis Chronic Problems (Last Updated 03/04/19 @ 10:16 by Clare Hatch) Atherosclerosis of coronary artery of [place] heart without angina pectoris (Chronic) Diastolic congestive heart failure (Chronic) Morbid obesity (Chronic) Cardiac dysrhythmia (Chronic) atrial flutter, heart block, bradycardia Paroxysmal atrial fibrillation (Chronic) Paroxysmal atrial flutter (Chronic) Nicotine dependence (Chronic) Essential (primary) hypertension (Chronic) Hospital Course and Treatment Operations: None Procedures: Cardiac catheterization - With insertion of drug-eluting stent distal right coronary artery Summary of Care Provided: The patient is a 58 year old M who was seen in the emergency room at [facility] with a chief complaint of left-sided chest pain, evaluation in the ER included an EKG which showed a normal sinus rhythm at 67 with an acute inferior wall VT. A STEMI was called and interventional cardiology was contacted and patient was taken to the cardiac catheterization lab where his right coronary artery was noted to be occluded and a drug-eluting stent was placed in the right coronary artery. Patient was transferred to ICU, he was kept initially on IV nitroglycerin, he had a brief episode of atrial flutter with a controlled ventricular response. Patient ultimately converted back to normal sinus rhythm on his own. On 03/05/2019, patient was seen and examined: On examination he appeared in good health and spirits. Vital signs as documented. Skin warm and dry and without overt rashes. Neck without JVD. Lungs clear. Heart exam notable for regular rhythm, normal sounds and absence of murmurs, rubs or gallops. Abdomen unremark able and without evidence of organomegaly, masses, or abdominal aortic enlargement. Extremities nonedematous. Neuro: Cranial nerves II through XII are grossly intact, no focal motor deficits were noted, sensation to light touch and pinprick intact. Psych: Patient is alert and oriented x3, he does not appear anxious or depressed On 03/05/2019, patient was seen and examined and felt to be in stable condition for discharge home. - Physical Exam Vitals/I&O's: Vital Signs Temp Pulse Resp BP Pulse Ox 98.4 F 59 L 16 132/75 H 98 03/05/19 10:00 03/05/19 11:17 03/05/19 10:00 03/05/19 10:00 03/05/19 10:00 Oxygen Flow Rate (L/min) 2 Oxygen Delivery Method Room Air Weight: 164.1 kg Body Mass Index (BMI) 46.8 Intake and Output for Last 24 Hours 03/05/19 03/06/19 03/07/19 23:59 23:59 23:59 Intake Total 740 / 740 Output Total 1200 / 1200 Balance -460 / -460 Discharge Activity: Return to Normal Activity Weight Bearing Status: Full weight bearing Home Medications: Medications to take at Discharge Clonidine HCl [Catapres] 0.1 mg PO BID 04/04/13 Lisinopril [Zestril] 40 mg PO BID 04/04/13 Budesonide/Formoterol 160/4.5 [Symbicort 160/4.5 Mcg Inhaler (SP)] 2 puff INHALATION BID 08/17/18 Fluticasone Propionate 1 spray NASAL DAILY PRN PRN 09/27/18 Sotalol HCl [Sotalol AF] 80 mg PO BID 09/27/18 Furosemide 40 mg PO BID #60 tab 09/28/18 Potassium Chloride 20 meq PO DAILY #60 tablet.er 09/28/18 Amlodipine [Norvasc] 5 mg PO DAILY 01/30/19 vitamin B complex 1 tab PO DAILY 02/26/19 Hydrocodone/Acetaminophen [Marana 7.5-325 Tablet] 1 ea PO 4X/DAY PRN PRN 03/03/19 Promethazine HCl/Codeine [Promethazine-Codeine Syrup] 5 ml PO Q4H 03/03/19 Aspirin E.C. [Ecotrin] 81 mg PO DAILY@0800 tab 03/05/19 Atorvastatin Calcium [Lipitor] 80 mg PO QHS #30 tab 03/05/19 Carvedilol [Coreg (Beta Zac)] 6.25 mg PO BID #60 tab 03/05/19 Isosorbide Mononitrate [Imdur] 60 mg PO DAILY #30 tab 03/05/19 Nicotine [Nicoderm] 14 mg TRANSDERM. DAILY #30 patch 03/05/19 Ticagrelor [Brilinta] 90 mg PO BID #60 tab 03/05/19 hydrALAZINE [Apresoline] 25 mg PO TID #90 tab 03/05/19 Following Prescrptions Were Given to Patient: hydrALAZINE [Apresoline] 25 mg PO TID #90 tab Transmission Status: Received by [id number] Ticagrelor [Brilinta] 90 mg PO BID #60 tab Transmission Status: Received by [id number] Carvedilol [Coreg (Beta Zac)] 6.25 mg PO BID #60 tab Transmission Status: Received by [id number] Isosorbide Mononitrate [Imdur] 60 mg PO DAILY #30 tab Transmission Status: Received by [id number] Atorvastatin Calcium [Lipitor] 80 mg PO QHS #30 tab Transmission Status: Received by [id number] Nicotine [Nicoderm] 14 mg TRANSDERM. DAILY #30 patch Transmission Status: Received by [id number] Other Amb Orders: Phase II, Outpatient Cardiac Rehab Location: None Selected Primary Care Physician: Terry Turk MD [Primary Care Provider] - Please follow up with your Primary Care Physician in: in 3 weeks Please Follow Up With: Main Joyce MD When: as directed-call for appointment by this Monday if office doesnt call you Disposition: Home Minutes spent on discharge:: 30 Patient Condition:: Stable Medical Necessity - Tobacco Use Smoking Status: Current every day smoker Tobacco Use: Cigarettes Meaningful Use Info Meaningful Use Diagnoses (Choose all that apply): AMI - AMI Aspirin given w/in 24hrs of arrival?: Yes ASA at discharge?: Yes Statins at discharge?: Yes Quentin/ARB at discharge?: Yes Beta Zac at discharge?: Yes Done w/ Acute VT measure.: Yes Documented LVEF (%): 60 Code Visit Inpatient E&M: [id number] Disch Hosp
== END 2019-03-05 12:25 | disposition home or self-care (01) | DRG 247 ==
LOC: ED 06:45 → ICU 07:11
PROVIDERS: Admitting Provider Internal Medicine; Emergency Provider Emergency Medicine; Family Provider Family Medicine; PCP Family Medicine; Referring Provider Internal Medicine Cardiovascular Disease; Visit Provider Internal Medicine
DX: I21.19 ST elevation (STEMI) myocardial infarction involving other coronary artery of inferior wall (principal); I48.92 Unspecified atrial flutter; Z68.42 Body mass index [BMI] 45.0-49.9, adult; I50.32 Chronic diastolic (congestive) heart failure; I25.10 Atherosclerotic heart disease of native coronary artery without angina pectoris; E78.5 Hyperlipidemia, unspecified; F17.210 Nicotine dependence, cigarettes, uncomplicated; E66.01 Morbid (severe) obesity due to excess calories; G47.33 Obstructive sleep apnea (adult) (pediatric); I11.0 Hypertensive heart disease with heart failure
CPT/HCPCS: 71045; 80048; 80053; 80076; 82962; 84484; 85025; 85027; 85347; 92941; 93005; 93306; 93458; 94640; 97162; 97166; 97802; 99152; 99251; 99285; 99406; C1760; J7030; Q9957; A4216; C1725; C1769; C1874; C1887; C8929; C9606; G0463; J2405; Q9967

== ENCOUNTER → 2019-05-09 09:28 | Outpatient (CLI) | payer OTHER, SELFPAY ==
[2019-03-03 08:47] VITALS: BMI 46.8
[2019-05-06 09:27] VITALS: BMI 49.6
--- NOTE | 2019-05-09 10:31 | CR.HP_ITS ---
CR - History & Physical - General Arrival date:: 05/09/19 Arrival time:: 10:31 Date of Referral:: 03/03/19 Date of CR Evaluation:: 05/09/19 Referring Physician: Dr. Isabel Joyce Primary Diagnosis: AMI S/P PCI with stent - History of Present Cardiac Event Onset Date: Enter Onset Date of cardiac illnesses in Comment field below Current stable Angina Pectoris:: No Acute Myocardial Infarction within 12 months:: Yes Coronary Artery Bypass Graft:: No Heart valve replacement or repair:: No PTCA or coronary stenting:: Yes - 03/03/19 Heart or Heart-Lung Transplant:: No Heart Failure EF <35%:: No Type of Symptoms:: Heavy chest pressure, irritated, couldn't sleep. Interventions with present event:: cath and echo Were there any complications?: no - Medications Home Medications: Ambulatory Orders Medication Instructions Recorded Clonidine HCl [Catapres] 0.1 mg PO BID 04/04/13 Lisinopril [Zestril] 40 mg PO BID 04/04/13 Budesonide/Formoterol 160/4.5 2 puff INHALATION BID 08/17/18 [Symbicort 160/4.5 Mcg Inhaler (SP)] Fluticasone Propionate 1 spray NASAL DAILY PRN PRN 09/27/18 Sotalol HCl [Sotalol AF] 80 mg PO BID 09/27/18 Furosemide 40 mg PO BID #60 tab 09/28/18 Potassium Chloride 20 meq PO DAILY #60 tablet.er 09/28/18 Amlodipine [Norvasc] 5 mg PO DAILY 01/30/19 vitamin B complex 1 tab PO DAILY 02/26/19 Hydrocodone/Acetaminophen [[place]bell 1 ea PO 4X/DAY PRN PRN 03/03/19 7.5-325 Tablet] Promethazine HCl/Codeine 5 ml PO Q4H 03/03/19 [Promethazine-Codeine Syrup] Aspirin E.C. [Ecotrin] 81 mg PO DAILY@0800 tab 03/05/19 Atorvastatin Calcium [Lipitor] 80 mg PO QHS #30 tab 03/05/19 Carvedilol [Coreg (Beta Zac)] 6.25 mg PO BID #60 tab 03/05/19 Nicotine [Nicoderm] 14 mg TRANSDERM. DAILY #30 patch 03/05/19 hydrALAZINE [Apresoline] 25 mg PO TID #90 tab 03/05/19 clopidogrel 75 mg tablet 75 mg PO DAILY #34 tab 05/06/19 - Allergies Allergies/Adverse Reactions: Allergies Penicillins Allergy (Verified 05/06/19 11:30) Hives pregabalin [From Lyrica] Allergy (Verified 05/06/19 11:30) Hives red dye Allergy (Verified 05/06/19 11:30) Angioedema - Sleep Disorder Evaluation Hx of Sleep Apnea: No Do you snore loudly (louder than talking or can be heard through closed doors)?: Yes Do you often feel tired/ fatigued/ sleepy during daytime?: Yes Has anyone observed you stop breathing during sleep?: Yes History of Hypertension (for STOP score): Yes STOP Results: Positive Advanced Directives - Advanced Directives Power of Entry Level Receptionist: No Living Will: No Advance Directives Information Provided: Yes Advance Directives on File: No Past Medical History - Past Medical Illness Medical History: Past Medical History (Last Updated 05/06/19 @ 15:34 by PATSY Valdovinos) Atherosclerosis of coronary artery of [place] heart without angina pectoris (Chronic) I25.10 STEMI (ST elevation myocardial infarction) (Resolved) Onset Date: 03/03/19 I21.3 Diastolic congestive heart failure (Chronic) I50.30 Cardiac dysrhythmia (Chronic) I49.9 atrial flutter, heart block, bradycardia Paroxysmal atrial fibrillation (Chronic) I48.0 Diastolic dysfunction with acute on chronic heart failure (Acute) I50.33 Paroxysmal atrial flutter (Chronic) I48.92 Nicotine dependence (Chronic) F17.200 Essential (primary) hypertension (Chronic) I10 COPD (chronic obstructive pulmonary disease) J44.9 Chronic pain G89.29 Degeneration of intervertebral disc of lumbosacral region M51.37 Failed back syndrome of lumbar spine M96.1 History of deep vein thrombosis (DVT) of lower extremity Z86.718 Morbid obesity E66.01 Obstructive sleep apnea G47.33 Sacrococcygeal disorders, not elsewhere classified M53.3 Sacroiliitis, not elsewhere classified M46.1 Cardiopulmonary arrest Onset Date: 08/20/18 I46.9 - Past Surgical History Surgical History: Past Surgical History (Last Reviewed 05/06/19 @ 15:34 by PATSY Valdovinos) History of coronary artery stent placement (Resolved) Onset Date: 04/02/19 Z95.5 [id number] RCA w/ 3.50 x 16 mm Synergy Stent 03/03/19 Successful emergent PCI with Drug eluting stent and PTCA to the distal RCA 04/02/2019 History of total hip arthroplasty Z96.649 History of total knee arthroplasty Z96.659 Surgical History: total hip arthroplasty, total knee arthroplasty, - - s/p back surgeries - Family History Summary Family History: Family History (Last Reviewed 05/06/19 @ 15:34 by PATSY Valdovinos) Mother CVA (cerebral vascular accident) Social History - Smoking History Smoking Status: Current every day smoker Years Smokin Packs Smoked per Day: 6 - cigs/day now, on patch Hx Tobacco Use: No Hx Smoking Exposure: No - Alcohol Use Alcohol Usage: No - Substance Abuse Hx Substance Use: No - Occupation Occupation (List type of work in comments):: 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 Left click = Reports ([place]) Review of Present Symptoms: Reports: PVD - varicose veins removed in past., Appetite - Normal, Appetite - Special Diet - cut back on certain things., Sleep - Normal. Denies: Shortness of Breath at Rest, Shortness of Breath with Exe rtion, Operative Discomfort, Angina, Wound Healing, Dizziness/Lightheadedness, Fatigue, Heart Arrhythmia/Irregularities, Sexual Changes - Pain Is Patient Pain Free?: Yes Pain Location: back Pain Level: 7/10 Previous experience dealing with pain?: pain pills Risk Factor Assessment - Vital Signs Pulse Ox: 97 - Pulse Pulse Rate: 53 Pulse Rhythm: Irregular - Hypertension How long have you been treated?: 14 years On medication(s)?: yes Blood Pressure Sitting - Right Arm: 144/100 Blood Pressure Sitting - Left Arm: 122/90 - Blood Cholesterol/Lipids Triglycerides (mg/dL) Goal = less than 150 mg/dL: 118 - Diabetes Nutrition Referral for Diabetes: No - Obesity Height: 5 ft 11 in Weight:: 356 lb Weight in Pounds: 356.0 lbs Weight Source: Stated by Patient Body Mass Index (BMI): 49.6 Desired Body Weight: 320 Realistic Weight Goal (Loss of 1-2 lbs/week): 336 Nutritional Referral for Obesity: Yes - Physical Inactivity Physical Inactivity: None Exercise Limitations: back pain - Risk Stratification Risk Guidelines: Lowest Risk: Risk Factor for Dyslipidemia, Risk Factor for Depression, Moderate Risk: Risk Factor for Diabetes, Highest Risk: Risk Factor for Smoking, Risk Factor for Obesity, Risk Factor for Hypertension, Risk Factor for Sedentary Lifestyle - For Smoking Smoking Risk Guidelines: Smoking Low Risk: None or quit greater than 6 months ago. Smoking Moderate Risk: Smoker or quit 6 months or less ago. Smoking High Risk: Smoker - For Dyslipidemia Dyslipidemia Risk Guidelines: Low Risk: Moderate Risk: High Risk: 15-25% fat 25.1-29% fat >/= 30% fat. <7% sat fat 7-9% sat fat >9% sat fat. <150 mg chol 150-299 mg chol >/= 300 mg chol. LDL <100 LDL 100-129 LDL >/= 130. Chol/HDL ratio <5.0 Chol/HDL ratio 5.0-6.0 Chol/HDL ratio >6.0. Triglycerides <100 Triglycerides 100-149 Triglycerides >/= 150 - For Diabetes Mellitus Diabetes Risk Guidelines: Diabetes Low Risk: HgA1c <6.5% and/or FBG <120. Diabetes Moderate Risk: HgA1c 6.6-7.9% and/or FBG 120-180. Diabetes High Risk: HgA1c >/= 8% and/or FBG >180 - For Obesity/Overweight Obesity/Overweight Risk Guidelines: Obesity Low Risk: BMI <25.0. Obesity Moderate Risk: BMI 25-29.9. Obesity High Risk: BMI >/= 30.0 - For Hypertension Hypertension Risk Guidelines: Hypertension Low Risk: Systolic <120 and Diastolic <80. Hypertension Moderate Risk: Systolic 120-139 and Diastolic 80-89. Hypertension High Risk: Systolic >/= 140 and Diastolic >/= 90 - For Sedentary Lifestyle Sedentary Lifestyle Risk Guidelines: Sedentary Lifestyle Low Risk: >/= 1,500 kcal/week. Sedentary Lifestyle Moderate Risk: 700-1,499 kcal/week. Sedentary Lifestyle High Risk: < 700 kcal/week - For Depression Depression Risk Guidelines: Depression Low Risk: Not clinically depressed. Depression Moderate Risk: Mildly depressed. Depression High Risk: Clinically depressed - Family History Family History: Family History (Last Reviewed 05/06/19 @ 15:34 by PATSY Valdovinos) Mother CVA (cerebral vascular accident) Motivation - Motivation to Participate On a scale of 1 to 10, how prepared are you to commit to attending program?: 8
--- NOTE | 2019-05-09 10:39 | CR.ITP_ITS ---
Diagnosis - General Information Admitting Diagnosis: PCI W/CORONARY STENT PLACEMENT S/P STEMI Personal Learning Style:: Audio/Visual, Written Barriers to Learning: Vision Impairment Stage of change r/t lifestyle modifications:: Action Gave educational material for:: Treating Heart Disease, Emotions & Heart Disease, Stress Management & Relaxation, Sleep Disorders & Heart Disease, How The Heart Works, What it means to have Heart Disease, How Coronary Artery Disease is Diagnosed, Heart Procedures, What Heart Medications Do, Risk Factors & Modifications, Living an Active Life, Nutrition - Education/Goals Individual Counseling: Initial Assessment: Nicotine/Smoking - < 10 PER DAY, Abnormal Cholesterol Levels, High Blood Pressure - 128/90, Overweight/Obesity - BMI 46.5 Cardiac Rehabilitation Goals: 1. Maintain the individual as the primary focus of care. 2. To improve the patient's quality of life. 3. Identification of cardiac risk factors and provide cardiac risk factor management. 4. Enhance the psychosocial status of the patient. 5. Reconditioning enough to allow the patient to resume customary activities. 6. Control symptoms of cardiac disease Personal Goals: Initial Assessment: Quit smoking (participate in smoking cessation, Improve energy level, Improve knowledge of cardiac disease, Improve muscle strength and endurance, Improve diet and eating habits (eat healthier), Control risk factors (learn risk factor modification) Scale for measuring improvement of personal goals: Enter appropriate number in Comments. 2 = Unchanged. 3 = Slightly Better. 4 = Moderate Improvement. 5 = Met my Goal - Diagnosis & Disease Process Outcomes/Goals: Pt IDs own risk factors & lifestyle modifications by Session 10, Verbalizes symptoms of angina & response by session 3., Pt independently manages Plan/Interventions: Assist Pt to ID & engage in lifestyle modification to reduce CVD risk, Instruct on individual risk factors, Review symptoms of angina & emergency actions, Review secondary diagnosis & identify educational needs. Exercise - Initial Assessment - Visit Date of Eval: 05/09/19 Session #:: 0 - STARTING CR 05/13/2019 Mets: Pre-: >5 METS for 30 minutes by discharge - Physician Prescribed Exercise Modalities: Treadmill - mODALITIES MAY BE LIMITED DUE TO CHRONIC BACK PAIN, TOTAL KNEE REPLACEMENT, H/O TOTAL HIP REPLACEMENT AND SACROILITIS., NuStep, SciFit Frequency: 3x/week for 12 weeks [36 sessions] Intensity: 60-80% of age predicted maximum heart rate reserve Target Heart Rate:: 105-137 Current RPE:: 2.5 - Outcomes & Goals Goals:: Verbalizes understanding of THR, RPE & goal METS by session 6, Documents in home exercise log/reports 30 min aerobic 5 day/wk by DC, Demonstrates accurate pulse taking by DC - Intervention & Plan Exercise Program Goals: Instruct on personal THR & RPE, Instruct on MET level & personal MET goal, Show patient to take own pulse /validate performance until accurate, Instruct on home exercise - Physical Activity Home Exercise Physical Activity - Home Exercise: Safe Exercise, Warm-up, Self-monitoring, Cool-Down, Home Exercise > 30 min Daily, Sitting Time <3 hours/daily - Outcomes & Goals Outcomes/Goals: Demonstrates correct Warm-up/exercise Cool-Down (S3) if = 2.5 M ETs, Verbalizes symptoms of exercise intolerance by Session 3 (S3), Demonstrate safe equipment use (S3) & follows exercise prescrition (6) - Intervention & Plan Plan/Intervention: Instruct warm-up & cool-down if exercising at > 2 METs, Instruct on symptoms of exercise intolerance & actions to take, Instruct & monitor on saf, Assess intial functional capacity & safety risk Nutrition - Initial Assessment - Program Goals Nutrition Program Goals: LDL <100 optimal. 100 - 129 Near optimal. 130 - 159 Borderline High. 160 - 189 High. Total Cholesterol <200 desirable. 200 - 239 Borderline High. >/= 240 High. HDL < 40 Low >/=60 High. Triglycerides <150 desirable. <199 optimal. VlDL 5 - 40. HgbA1C <7%. BMI <25 Patient has diagnosis of Hyperlipidemia (ICD E78)?: Yes - Visit Date of Assessment:: 05/09/19 Session #:: 0 - STARTING CR 05/13/2019 - Cholesterol/Lipids Triglycerides (mg/dL): 118 - 08/20/2018 Total Cholesterol (mg/dL): 0 - NOT AVAILABLE Determine presence & major risk factors that modify LDL goal: Cigarette smoking, Hypertension or hypertensive medication, Age men > 45 years; women >/= 55 years Outcomes/Goals: Pt IDs own risk factors & lifestyle modifications by Session 10, Verbalizes symptoms of angina & response by session 3., Pt independently manages Intervention/Plan: Instruct on personal lipid levels & lipid goals/NCEP guidelines, Instruct on cholesterol - Diabetes (Other Core Measures) Diabetes Type: Not Applicable - Weight Mgt (Other Care) Not Applicable: No Height: 5 ft 11 in Weight:: 356 lb BMI: 49.6 Diagnosis Overweight/Obesity BMI> 30% ICD-10 E66: Yes Diagnosis High BMI/Morbid Obesity BMI> 35% ICD-10 Z68: Yes Expected Body Weight: 322 lb Outcomes/Goals: Pt sets, maintains & shows weight loss goal & trend during rehab Intervention/Plan: Instruct on ideal BMI & set weight loss goal w/patient, Assist pt to ID & incorporate diet changes for weight loss by S9, Refer to Structured Weight Loss program as appropriate, Encourage goal of using 250- 300dcal per session for weight loss - Healthy Eating Habits Will attend diet classes:: Yes Outcomes/Goals:: Consume diet rich in vegs,fruits,whole grain/high fiber,fish,lean meat, Limit sat/trans fats,cholesterol & added salts & sugars Intervention/Plan:: Assess current eating habits - Education Gave educational materials for:: Healthy eating Medical - Initial Assessment - Visit Date of Eval: 05/09/19 Session #:: 0 - STARTING HIS CR ON 05/13/2019 - Medication Compliance Preventative Medication(s):: Aspirin, Ticagrelor/P2Y12 inhibitor, Statin/lipid H/O mental health issues: depression, anxiety, or addiction?: No Doesn?t believe in the benefits of treatment?: No Believes medications are unnecessary or harmful?: No Has a concern about medication side effects?: No Expresses concern over the cost of medications?: No Outcomes/Goals: Verbalizes medications,desired effect & common side effects @ DC, Pt self-reports following medication regimen, Keeps card in wallet w/medications listed by DC Interventions/plans: Instruct on medication effects & side effects, Review medication list w/patient every two weeks, Instruct importance of taking meds as ordered & assist problem solving - Tobacco Use Tobacco Use: Cigarettes - < 10 PER DAY BUT CONTINUES SMOKING How many cigarettes do you smoke per day?: 10 Do you use smokeless tobacco?: No Outcomes/Goals: Smoking cessation achieved or maintained by discharge, Identify aids/strategies for achieving smoking cessation by session 6 Interventions/plan: Instruct on effects of smoking & provide smoking cessation resource, Assist pt to set quit date & provide encouragement, Assist pt to develop strategies to achieve/maintain quit date, Assist pt w/nicotine replacement & medication for cessation success - Hypertension Hypertension Diagnosis:: Hypertension ICD-10 I10 Resting Blood Pressure:: 128/90 [place] [employer] Hypertension Guidelines: [place] [employer] Hypertension Guidelines. Normal BP Less than 120/80. Elevated BP 120/80. Hypertension Stage 1: BP 130-139/80-89. Hypertesnion Stage 2: BP 140 or higher/90 or higher. Hypertension Crisis: BP higher than 180/120 Outcomes/Goals: Able to verbalize/achieve optimal blood pressure <130/80, Incorporates diet changes & exercise for blood pressure control by DC Interventions/plan: Instruct on optimal blood pressure, hypertension & medications, Instruct on effects of sodium, alcohol, stress, exercise &hypertension - Tobacco Cessation Referral Smoking Cessation Referral:: Yes - PATIENT NICOTINE DEPENDENT Individual Education/Counseling:: Yes Education Schedule Given:: Yes Psychosocial - Initial Assess - VIsit Date of Eval: 05/09/19 Session #:: 0 - STARTING HIS CR ON 05/13/2019 Not Applicable: No History of previous Mental disease:: No Self-reported stressors: Financial, Medical/Health, Recent Illness - Target Goals Target Goals: Assess presence or absence of depression. Using a valid screening tool, maximizes coping skills. Positive support system - Psychosocial Test Tool Used:: Alpesh Rodriguez QOL Cardiac, PHQ-9 Questionnaire phq-9 Severity: Severity. 1-4 Minimal Depression. 5-9 Mild Depression. 10-14 Moderate Depression. 15-19 Moderately Sever Depression. 20-27 Severe Depression. Rule: - Referral to Behavioral Health PS - Interventions: Yes Attend Stress Management Classes, No Referral to [facility] - Outcomes/Goals: See list Psychosocial Outcomes/Goals:: ID's personal stressors & 2 strategies to manage stress by discharge - Intervention/Plan: See List Interventions/Plan:: Assess stressors,coping strategies & signs of derpression on admission, Instruct/assist pt to develop coping & personal stress Mgt strategies, Instruct patient to recognize signs & symptoms of depression, Instruct patient to recog Patient Health Questionnaire Initial Assessment 1. Little interest or pleasure in doing things: Not at all 2. Feeling down, depressed, or hopeless: Several days 3. Trouble falling or staying asleep, or sleeping too much: Several days 4. Feeling tired or having little energy: Several days 5. Poor appetite or overeating: Not at all 6. Feeling bad about yourself -- or that you are a failure or have let yourself or your family down: Not at all 7. Trouble concentrating on things, such as reading the newspaper or watching television: Not at all 8. Moving or speaking so slowly that other people could have noticed. Or the opposite - being so fidgety or restless that you have been moving around a lot more than usual: Not at all 9. Thoughts that you would be better off , or of hurting yourself in some way: Not at all How difficult have these problems made it for you to do your work, take care of things at home, or get along with other people?: Not difficult at all Total Score: 3 JUDY-Q SV Test - Statements CAD is a disease of the arteries in the heart: False Examples of risk factors for heart disease: True Angina is chest pain or discomfort: True The benefits of resistance training include: I Don't Know Eating more meat and dairy products: False Anti-platelet medications such as aspirin are important: True The only effective way to manage stress: False An exercise warm-up slowly increases heart rate: False Prepared, processed foods usually have high sodium: False Depression is common after a heart attack: False The statin medications lower cholesterol: I Don't Know To control blood pressure, lower the amount of sodium: I Don't Know If someone gets chest discomfort during walking: False Transfats are partially hydrogenated vegetable oils: I Don't Know Sleep apnea that is not treated increases the risk: False To control cholesterol, one should become a vegetarian: False Someone knows if he/she is exercising at the right level: False Diabetes cannot be prevented with exercise & health eating: False Stress is a large risk for heart attack: False A diet that can help lower blood pressure is rich in: I Don't Know - Total Score Total Correct Responses: 10 Self-Efficacy Initial Assessment We would like to know how confident you are in doing certain activities. Please select your confidence level for:: Select your confidence level for the following using the scale 1-10 where 1 is not at all confident and 10 is totally confident. Your score is the average of all 6 responses. Fatigue: How confident are you that you can keep the fatigue caused by your disease from interfering with the things you want to do? Select Number: 2 Physical Discomfort or Pain: How confident are you that you can keep the physical discomfort or pain of your disease from interfering with the things you want to do? Select Number: 2 Emotional Distress: How confident are you that you can keep the emotional distress caused by your disease from interfering with the things you want to do? Select Number: 3 Other Symptoms or Health Problems: How confident are you that you can keep other symptoms or health problems from interfering with the things you want to do? Select Number: 3 Different Tasks and Activities: How confident are you that you can do the di fferent tasks and activities needed to manage your health condition so as to reduce your need to see a doctor? Select Number: 3 Medication: How confident are you that you can do things other than just taking medication to reduce how much your illness affects your everyday life? Select Number: 3 Total Score:: 2 Nutrition Survey - Nutrition Survey Instructions Scoring Instructions: Scoring is as follows: Yes = 1 points. No = 0 point. Patient score that is >/=12 is considered to be at potential nutritional risk and could benefit from a referral to a registered dietitian. - Nutrition Survey Initial Have you lost >10 lbs over the past 2 months without trying?: No Are you following a special diet at home for diabetes, low fat, or low salt?: Yes Are you interested in meeting with a dietitian for help understanding your diet?: No Do you eat less than 3 meals a day?: Yes Do you eat fatty meats (draper, sausage, ribs, etc), fried foods, desserts, large amounts of salad dressings, margarine, butter, or cheese most days?: Yes Do you have food allergies? [Enter types in comment field]: No Do you eat in restaurants more than 3 times a week?: No Do you season food with salt, seasoning salt, or garlic salt?: Yes Do you used canned, boxed, frozen meals, or soups, seasoning packets?: Yes Total Score:: 5
[2019-05-09 10:49] VITALS: BP 128/90; BMI 49.6
[2019-05-09 11:09] VITALS: BP 122/90; BP 144/100; PULSE 53; O2SAT 97; BMI 49.6
== END ==
PROVIDERS: Family Provider Family Medicine; PCP Family Medicine; Referring Provider Internal Medicine Cardiovascular Disease; Visit Provider Internal Medicine Cardiovascular Disease
DX: I25.10 Atherosclerotic heart disease of native coronary artery without angina pectoris (principal); I11.0 Hypertensive heart disease with heart failure; I50.30 Unspecified diastolic (congestive) heart failure; G47.33 Obstructive sleep apnea (adult) (pediatric); E66.01 Morbid (severe) obesity due to excess calories; Z68.42 Body mass index [BMI] 45.0-49.9, adult

== ENCOUNTER 2019-05-17 11:30 | Outpatient (RCR) | payer OTHER, SELFPAY ==
[2019-05-06 09:27] VITALS: BMI 49.6
== END 2019-05-18 23:59 ==
LOC: CR 11:30
PROVIDERS: PCP Family Medicine; Referring Provider Internal Medicine Cardiovascular Disease; Visit Provider Internal Medicine Cardiovascular Disease
DX: I25.10 Atherosclerotic heart disease of native coronary artery without angina pectoris (principal); I21.3 ST elevation (STEMI) myocardial infarction of unspecified site; I50.30 Unspecified diastolic (congestive) heart failure; Z95.5 Presence of coronary angioplasty implant and graft
CPT/HCPCS: 93798

== ENCOUNTER → 2019-05-23 13:43 | Outpatient (CLI) | payer OTHER, SELFPAY ==
[2019-05-09 10:49] VITALS: BMI 49.6
[2019-05-09 11:09] VITALS: BMI 49.6
== END ==
LOC: PSN 13:44
PROVIDERS: PCP Family Medicine; Referring Provider Internal Medicine Cardiovascular Disease; Visit Provider Internal Medicine Cardiovascular Disease
DX: I48.0 Paroxysmal atrial fibrillation (principal); I48.92 Unspecified atrial flutter; I25.10 Atherosclerotic heart disease of native coronary artery without angina pectoris; Z95.5 Presence of coronary angioplasty implant and graft
CPT/HCPCS: 93225; 93226

== ENCOUNTER 2019-06-17 11:30 | Outpatient (RCR) | payer OTHER, SELFPAY ==
[2019-05-09 10:49] VITALS: BMI 49.6
[2019-05-09 11:09] VITALS: BMI 49.6
--- NOTE | 2019-06-07 08:55 | CR.ITP_ITS ---
Diagnosis - General Information Admitting Diagnosis: AMI, PCI W/STENTING Personal Learning Style:: Audio/Visual, Written Barriers to Learning: No Barriers Stage of change r/t lifestyle modifications:: Action Gave educational material for:: Treating Heart Disease, Emotions & Heart Disease, Stress Management & Relaxation, Sleep Disorders & Heart Disease, How The Heart Works, What it means to have Heart Disease, How Coronary Artery Disease is Diagnosed, Heart Procedures, What Heart Medications Do, Risk Factors & Modifications, Living an Active Life, Nutrition - Education/Goals Individual Counseling: Initial Assessment: Abnormal Cholesterol Levels, High Blood Pressure, Overweight/Obesity, Diabetes, Metabolic Syndrome (as evidenced by 3 of 5 A-E below), B. Waist Circumference >35/Females >40/Males, Hypertension Cardiac Rehabilitation Goals: 1. Maintain the individual as the primary focus of care. 2. To improve the patient's quality of life. 3. Identification of cardiac risk factors and provide cardiac risk factor management. 4. Enhance the psychosocial status of the patient. 5. Reconditioning enough to allow the patient to resume customary activities. 6. Control symptoms of cardiac disease Personal Goals: Initial Assessment: Quit smoking (participate in smoking cessation, Improve energy level, Improve knowledge of cardiac disease, Improve muscle strength and endurance, Improve diet and eating habits (eat healthier), Control risk factors (learn risk factor modification) Scale for measuring improvement of personal goals: Enter appropriate number in Comments. 2 = Unchanged. 3 = Slightly Better. 4 = Moderate Improvement. 5 = Met my Goal - Diagnosis & Disease Process Outcomes/Goals: Pt IDs own risk factors & lifestyle modifications by Session 10, Verbalizes symptoms of angina & response by session 3., Pt independently manages Plan/Interventions: Assist Pt to ID & engage in lifestyle modification to reduce CVD risk, Instruct on individual risk factors, Review symptoms of angina & emergency actions, Review secondary diagnosis & identify educational needs. 30 day Reassessments:: Progressing Exercise - 30-day Assessment - Visit Date of Eval: 06/07/19 Session #:: 11 - Physician Prescribed Exercise Modalities: NuStep, SciFit Frequency: 3x/week for 12 weeks [36 sessions] Intensity: 60-80% of age predicted maximum heart rate reserve Current METSs:: 2.5 UNCHANGED AT THIS TIME Target Heart Rate:: 105-137 Current RPE:: 11-12 Resting Blood Pressure: 144/90 - UNCONTROLLED Maximum Exercise Blood Pressure: 154/100 EKG Type: NSR with occasional PVCs. - Outcomes & Goals Goals:: Verbalizes understanding of THR, RPE & goal METS by session 6, Documents in home exercise log/reports 30 min aerobic 5 day/wk by DC, Demonstrates accurate pulse taking by DC - Intervention & Plan Exercise Program Goals: Instruct on personal THR & RPE, Instruct on MET level & personal MET goal, Show patient to take own pulse /validate performance until accurate, Instruct on home exercise - 30-day Reassessments 30 day Reassessments:: Progressing - Physical Activity Home Exercise Physical Activity - Home Exercise: Safe Exercise, Warm-up, Self-monitoring, Cool-Down, Home Exercise > 30 min Daily, Sitting Time <3 hours/daily - Outcomes & Goals Outcomes/Goals: Demonstrates correct Warm-up/exercise Cool-Down (S3) if = 2.5 METs, Verbalizes symptoms of exercise intolerance by Session 3 (S3), Demonstrate safe equipment use (S3) & follows exercise prescrition (6) - Intervention & Plan Plan/Intervention: Instruct warm-up & cool-down if exercising at > 2 METs, Instruct on symptoms of exercise intolerance & actions to take, Instruct & monitor on saf, Assess intial functional capacity & safety risk - 30-day Reassessments 30 day Reassessments:: Progressing Nutrition - 30-Day Assessment - Program Goals Nutrition Program Goals: LDL <100 optimal. 100 - 129 Near optimal. 130 - 159 Borderline High. 160 - 189 High. Total Cholesterol <200 desirable. 200 - 239 Borderline High. >/= 240 High. HDL < 40 Low >/=60 High. Triglycerides <150 desirable. <199 optimal. VlDL 5 - 40. HgbA1C <7%. BMI <25 Patient has diagnosis of Hyperlipidemia (ICD E78)?: Yes - Visit Date of Assessment:: 06/07/19 Session #:: 11 - Cholesterol/Lipids Triglycerides (mg/dL): 118 Determine presence & major risk factors that modify LDL goal: Hypertension or hypertensive medication, Family history of premature CHD in Male < 55 years: female <65 yearsFa, Age men > 45 years; women >/= 55 years Outcomes/Goals: Pt IDs own risk factors & lifestyle modifications by Session 10, Verbalizes symptoms of angina & response by session 3., Pt independently manages Intervention/Plan: Instruct on personal lipid levels & lipid goals/NCEP guidelines, Instruct on cholesterol Referral to dietitian:: Yes 30-day Reassessments:: Progressing - Diabetes (Other Core Measures) Diabetes Type: Diagnosis Type II ICD-10 E11 Insulin dependent injection/pump?: Yes Non-Insulin Dependent?: Yes Do you monitor your blood sugar at home?: Yes Referral to Diabetic Clinic:: Yes Outcomes/Goals:: Able to state symptoms of, Able to state, Able to state Intervention/Plan:: Instruct on, Refer to, Instruct on 30-day Reassessments:: Progressing - Weight Mgt (Other Care) Not Applicable: Yes Height: 5 ft 4 in Weight:: 197 lb BMI: 33.7 Diagnosis Overweight/Obesity BMI> 30% ICD-10 E66: Yes Diagnosis High BMI/Morbid Obesity BMI> 35% ICD-10 Z68: No Outcomes/Goals: Pt sets, maintains & shows weight loss goal & trend during rehab Intervention/Plan: Instruct on ideal BMI & set weight loss goal w/patient, Assist pt to ID & incorporate diet changes for weight loss by S9, Refer to Structured Weight Loss program as appropriate, Encourage goal of using 250- 300dcal per session for weight loss 30 day Reassessments:: Progressing - Healthy Eating Habits Outcomes/Goals:: Consume diet rich in vegs,fruits,whole grain/high fiber,fish,lean meat, Limit sat/trans fats,cholesterol & added salts & sugars 30-day Reassessments:: Progressing - Education Gave educational materials for:: Signs & symptoms of hypoglycemia, Signs & symptoms of hyperglycemia, Relate diabetes to coronary artery disease, Healthy eating Medical- 30-Day Assessment - Visit Date of Eval: 06/07/19 Session #:: 11 - Medication Compliance Preventative Medication(s):: Aspirin, Statin/lipid, Beta allie H/O mental health issues: depression, anxiety, or addiction?: No Doesn?t believe in the benefits of treatment?: No Believes medications are unnecessary or harmful?: No Has a concern about medication side effects?: No Expresses concern over the cost of medications?: No Outcomes/Goals: Verbalizes medications,desired effect & common side effects @ DC, Pt self-reports following medication regimen, Keeps card in wallet w/medications listed by DC Interventions/plans: Instruct on medication effects & side effects, Review medication list w/patient every two weeks, Instruct importance of taking meds as ordered & assist problem solving 30-day Reassessments:: Progressing - Tobacco Use Tobacco Use: Non-smoker - Hypertension Hypertension Diagnosis:: Hypertension ICD-10 I10 Resting Blood Pressure:: 144/90 Citizen [place] Heart Association Hypertension Guidelines: Citizen [place] Heart Association Hypertension Guidelines. Normal BP Less than 120/80. Elevated BP 120/80. Hy pertension Stage 1: BP 130-139/80-89. Hypertesnion Stage 2: BP 140 or higher/90 or higher. Hypertension Crisis: BP higher than 180/120 Peak Exercise Blood Pressure:: 154/100 Outcomes/Goals: Able to verbalize/achieve optimal blood pressure <130/80, Incorporates diet changes & exercise for blood pressure control by DC Interventions/plan: Instruct on optimal blood pressure, hypertension & medications, Instruct on effects of sodium, alcohol, stress, exercise &hypertension 30 day Reassessments:: Progressing - Tobacco Cessation Referral Smoking Cessation Referral:: No Individual Education/Counseling:: No Education Schedule Given:: Yes Psychosocial - 30-Day Assess - VIsit Date of Eval: 06/07/19 Session #:: 11 Not Applicable: Yes History of previous Mental disease:: No - Target Goals Target Goals: Assess presence or absence of depression. Using a valid screening tool, maximizes coping skills. Positive support system - Psychosocial Test Tool Used:: Sightly QOL Cardiac, PHQ-9 Questionnaire phq-9 Severity: Severity. 1-4 Minimal Depression. 5-9 Mild Depression. 10-14 Moderate Depression. 15-19 Moderately Sever Depression. 20-27 Severe Depression. Rule: - Referral to Behavioral Health PS - Interventions: Yes Attend Stress Management Classes, No Referral to Behavioral Health if PHQ-9 score >9:, No Referral to [facility], No Referral to Physician if PHQ-9 if score is 5-9: - Outcomes/Goals: See list Psychosocial Outcomes/Goals:: ID's personal stressors & 2 strategies to manage stress by discharge - Intervention/Plan: See List Interventions/Plan:: Assess stressors,coping strategies & signs of derpression on admission, Instruct/assist pt to develop coping & personal stress Mgt strategies, Instruct patient to recognize signs & symptoms of depression, Instruct patient to recog - 30-day Reassessments: 30 day Reassessments:: Progressing Patient Health Questionnaire 30-Day Re-eval Assessment 1. Little interest or pleasure in doing things: Not at all 2. Feeling down, depressed, or hopeless: Several days 3. Trouble falling or staying asleep, or sleeping too much: Several days 4. Feeling tired or having little energy: Several days 5. Poor appetite or overeating: Not at all 6. Feeling bad about yourself -- or that you are a failure or have let yourself or your family down: Not at all 7. Trouble concentrating on things, such as reading the newspaper or watching television: Not at all 8. Moving or speaking so slowly that other people could have noticed. Or the opposite - being so fidgety or restless that you have been moving around a lot more than usual: Not at all 9. Thoughts that you would be better off , or of hurting yourself in some way: Not at all How difficult have these problems made it for you to do your work, take care of things at home, or get along with other people?: Not difficult at all Total Score: 3 Self-Efficacy 30-Day Re-eval Assessment We would like to know how confident you are in doing certain activities. Please select your confidence level for:: Select your confidence level for the following using the scale 1-10 where 1 is not at all confident and 10 is totally confident. Your score is the average of all 6 responses. Fatigue: How confident are you that you can keep the fatigue caused by your disease from interfering with the things you want to do? Select Number: 4 Physical Discomfort or Pain: How confident are you that you can keep the physical discomfort or pain of your disease from interfering with the things you want to do? Select Number: 4 Emotional Distress: How confident are you that you can keep the emotional distress caused by your disease from interfering with the things you want to do? Select Number: 5 Other Symptoms or Health Problems: How confident are you that you can keep other symptoms or health problems from interfering with the things you want to do? Select Number: 5 Different Tasks and Activities: How confident are you that you can do the different tasks and activities needed to manage your health condition so as to reduce your need to see a doctor? Select Number: 4 Medication: How confident are you that you can do things other than just taking medication to reduce how much your illness affects your everyday life? Select Number: 5 Total Score:: 4
[2019-06-07 09:04] VITALS: BP 144/90; BP 154/100; BMI 33.7
== END 2019-06-18 23:59 ==
LOC: CR 11:30
PROVIDERS: PCP Family Medicine; Referring Provider Internal Medicine Cardiovascular Disease; Visit Provider Internal Medicine Cardiovascular Disease
DX: I25.10 Atherosclerotic heart disease of native coronary artery without angina pectoris (principal); I21.3 ST elevation (STEMI) myocardial infarction of unspecified site; I50.30 Unspecified diastolic (congestive) heart failure; Z95.5 Presence of coronary angioplasty implant and graft
CPT/HCPCS: 93798

== ENCOUNTER 2019-06-19 09:39 | Outpatient (RCR) | payer OTHER, SELFPAY ==
[2019-05-09 11:09] VITALS: BMI 49.6
[2019-06-07 09:04] VITALS: BMI 33.7
[2019-06-19 00:52] VITALS: BP 144/90; BP 154/100
--- NOTE | 2019-06-21 07:21 | PCM.CR.ITP ---
Exercise - Initial Assessment - Visit Date of Eval: 06/21/19 - With obvious neccessary interupption in the delivery of CR, the patient's program is on hold due to the coronovirus. The CR program has been closed for patient safety reasons.
== END 2019-07-18 23:59 ==
LOC: CR 09:39
PROVIDERS: PCP Family Medicine; Referring Provider Internal Medicine Cardiovascular Disease; Visit Provider Internal Medicine Cardiovascular Disease
DX: I25.10 Atherosclerotic heart disease of native coronary artery without angina pectoris (principal); I25.2 Old myocardial infarction; I50.30 Unspecified diastolic (congestive) heart failure; Z95.5 Presence of coronary angioplasty implant and graft
CPT/HCPCS: 93798

== ENCOUNTER 2019-07-24 06:41 | Outpatient (RCR) | payer OTHER, SELFPAY ==
[2019-05-09 11:09] VITALS: BMI 49.6
[2019-06-07 09:04] VITALS: BMI 33.7
[2019-07-19 00:16] VITALS: BP 144/90; BP 154/100
--- NOTE | 2019-07-19 12:07 | PCM.CR.ITP ---
Diagnosis - General Information Admitting Diagnosis: AMI, PCI with stent Personal Learning Style:: Audio/Visual, Written Stage of change r/t lifestyle modifications:: Action Gave educational material for:: Treating Heart Disease, Emotions & Heart Disease, Stress Management & Relaxation, Sleep Disorders & Heart Disease, How The Heart Works, What it means to have Heart Disease, How Coronary Artery Disease is Diagnosed, Heart Procedures, What Heart Medications Do, Risk Factors & Modifications, Living an Active Life, Nutrition - Education/Goals Cardiac Rehabilitation Goals: 1. Maintain the individual as the primary focus of care. 2. To improve the patient's quality of life. 3. Identification of cardiac risk factors and provide cardiac risk factor management. 4. Enhance the psychosocial status of the patient. 5. Reconditioning enough to allow the patient to resume customary activities. 6. Control symptoms of cardiac disease Scale for measuring improvement of personal goals: Enter appropriate number in Comments. 2 = Unchanged. 3 = Slightly Better. 4 = Moderate Improvement. 5 = Met my Goal - Diagnosis & Disease Process Outcomes/Goals: Pt IDs own risk factors & lifestyle modifications by Session 10, Verbalizes symptoms of angina & response by session 3., Pt independently manages, Other Additional Outcomes/Goals: Plan/Interventions: Assist Pt to ID & engage in lifestyle modification to reduce CVD risk, Instruct on individual risk factors, Review symptoms of angina & emergency actions, Review secondary diagnosis & identify educational needs., Other see comment 30 day Reassessments:: Progressing 30 day Reassessments:: Progressing - Safety Referral to Physical Therapy: No Referral to [facility] Case Management: No Fall Risk Assessed:: Yes Assistive Devices:: None Exercise - 60-day Assessment - Visit Date of Eval: 07/19/19 Session #:: 16 Comments:: Pt was on hold for COVID 19 precaution. Pt is now resuming rehab. - Physician Prescribed Exercise Modalities: NuStep Frequency: 3x/week for 12 weeks [36 sessions] Intensity: 60-80% of age predicted maximum heart rate reserve Current METSs:: 2.5 Target Heart Rate:: 105-137 Current RPE:: 12-13 Maximum Excercise HR:: 86 Resting Blood Pressure: 140/88 Maximum Exercise Blood Pressure: 150/100 EKG Type: SB - Outcomes & Goals Goals:: Verbalizes understanding of THR, RPE & goal METS by session 6, Documents in home exercise log/reports 30 min aerobic 5 day/wk by DC, Demonstrates accurate pulse taking by DC, Other additional outcome/goals: see below - Intervention & Plan Exercise Program Goals: Instruct on personal THR & RPE, Instruct on MET level & personal MET goal, Show patient to take own pulse /validate performance until accurate, Instruct on home exercise, Other additional plan/int - 30-day Reassessments 30 day Reassessments:: Progressing - Physical Activity Home Exercise Physical Activity - Home Exercise: Safe Exercise, Warm-up, Self-monitoring, Cool-Down, Home Exercise > 30 min Daily, Sitting Time <3 hours/daily - Outcomes & Goals Outcomes/Goals: Demonstrates correct Warm-up/exercise Cool-Down (S3) if = 2.5 METs, Verbalizes symptoms of exercise intolerance by Session 3 (S3), Demonstrate safe equipment use (S3) & follows exercise prescrition (6), Other: See below - Intervention & Plan Plan/Intervention: Instruct warm-up & cool-down if exercising at > 2 METs, Instruct on symptoms of exercise intolerance & actions to take, Instruct & monitor on saf, Assess intial functional capacity & safety risk, Other See below - 30-day Reassessments 30 day Reassessments:: Progressing Nutrition - 60-Day Assessment - Program Goals Nutrition Program Goals: LDL <100 optimal. 100 - 129 Near optimal. 130 - 159 Borderline High. 160 - 189 High. Total Cholesterol <200 desirable. 200 - 239 Borderline High. >/= 240 High. HDL < 40 Low >/=60 High. Triglycerides <150 desirable. <199 optimal. VlDL 5 - 40. HgbA1C <7%. BMI <25 Patient has diagnosis of Hyperlipidemia (ICD E78)?: Yes - Visit Date of Assessment:: 07/19/19 Session #:: 16 - Cholesterol/Lipids Referral to dietitian:: Yes 30-day Reassessments:: Progressing - Diabetes (Other Core Measures) Diabetes Type: Diagnosis Type II ICD-10 E11 Insulin dependent injection/pump?: Yes Non-Insulin Dependent?: Yes Do you monitor your blood sugar at home?: Yes Referral to Diabetic Clinic:: Yes Outcomes/Goals:: Able to state symptoms of, Able to state, Able to state, Other additional Intervention/Plan:: Instruct on, Refer to, Instruct on, Other 30-day Reassessments:: Progressing - Weight Mgt (Other Care) Not Applicable: Yes Height: 5 ft 11 in Weight:: 160.572 kg BMI: 49.4 Diagnosis Overweight/Obesity BMI> 30% ICD-10 E66: Yes Diagnosis High BMI/Morbid Obesity BMI> 35% ICD-10 Z68: Yes Outcomes/Goals: Pt sets, maintains & shows weight loss goal & trend during rehab, Other additional outcomes/goals Intervention/Plan: Instruct on ideal BMI & set weight loss goal w/patient, Assist pt to ID & incorporate diet changes for weight loss by S9, Refer to Structured Weight Loss program as appropriate, Encourage goal of using 250-300dcal per session for weight loss, Other additional plan/interventions 30 day Reassessments:: Progressing - Healthy Eating Habits Will attend diet classes:: Yes Outcomes/Goals:: Consume diet rich in vegs,fruits,whole grain/high fiber,fish,lean meat, Limit sat/trans fats,cholesterol & added salts & sugars, Other additional outcome/goals: Intervention/Plan:: Assess current eating habits, Other Additional plan/interventions 30-day Reassessments:: Progressing - Education Gave educational materials for:: Signs & symptoms of hypoglycemia, Signs & symptoms of hyperglycemia, Relate diabetes to coronary artery disease, Healthy eating Medical- 60-Day Assessment - Visit Date of Eval: 07/19/19 Session #:: 16 - Medication Compliance Preventative Medication(s):: Aspirin, Statin/lipid, Beta allie H/O mental health issues: depression, anxiety, or addiction?: No Doesn?t believe in the benefits of treatment?: No Believes medications are unnecessary or harmful?: No Has a concern about medication side effects?: No Expresses concern over the cost of medications?: No Outcomes/Goals: Verbalizes medications,desired effect & common side effects @ DC, Pt self-reports following medication regimen, Keeps card in wallet w/medications listed by DC, Other additional outcome/goals: Interventions/plans: Instruct on medication effects & side effects, Review medication list w/patient every two weeks, Instruct importance of taking meds as ordered & assist problem solving, Other additional 30-day Reassessments:: Progressing - Hypertension Hypertension Diagnosis:: Hypertension ICD-10 I10 Resting Blood Pressure:: 140/88 [place] [employer] Hypertension Guidelines: [place] [employer] Hypertension Guidelines. Normal BP Less than 120/80. Elevated BP 120/80. Hypertension Stage 1: BP 130-139/80-89. Hypertesnion Stage 2: BP 140 or higher/90 or higher. Hypertension Crisis: BP higher than 180/120 Peak Exercise Blood Pressure:: 150/100 Outcomes/Goals: Able to verbalize/achieve optimal blood pressure <130/80, Incorporates diet changes & exercise for blood pressure control by DC, Other additional outcomes/goals Interventions/plan: Instruct on optimal blood pressure, hypertension & medications, Instruct on effects of sodium, alcohol, stress, exercise &hypertension, Other additional plan/interventions 30 day Reassessments:: Progressing - Tobacco Cessation Referral Smoking Cessation Referral:: No Individual Education/Counseling:: No Education Schedule Given:: Yes Psychosocial - 60-Day Assess - VIsit Date of Eval: 07/19/19 Session #:: 16 History of previous Mental disease:: No - Target Goals Target Goals: Assess presence or absence of depression. Using a valid screening tool, maximizes coping skills. Positive support system - Psychosocial Test Tool Used:: [employer] QOL Cardiac, PHQ-9 Questionnaire phq-9 Severity: Severity. 1-4 Minimal Depression. 5-9 Mild Depression. 10-14 Moderate Depression. 15-19 Moderately Sever Depression. 20-27 Severe Depression. Rule: - Referral to Behavioral Health PS - Interventions: Yes Attend Stress Management Classes, No Referral to Behavioral Health if PHQ-9 score >9:, No Referral to [facility], No Referral to Physician if PHQ-9 if score is 5-9: - Outcomes/Goals: See list Psychosocial Outcomes/Goals:: ID's personal stressors & 2 strategies to manage stress by discharge, Other Additional outcome/goals: - Intervention/Plan: See List Interventions/Plan:: Assess stressors,coping strategies & signs of derpression on admission, Instruct/assist pt to develop coping & personal stress Mgt strategies, Refer to Behavioral Health if appropriate, Refer to Physician if appropriate, Instruct patient to recognize signs & symptoms of depression, Instruct patient to recog, Other additional plan/intervention - 30-day Reassessments: 30 day Reassessments:: Progressing Patient Health Questionnaire 60-Day Re-eval Assessment 1. Little interest or pleasure in doing things: Not at all 2. Feeling down, depressed, or hopeless: Several days 3. Trouble falling or staying asleep, or sleeping too much: Several days 4. Feeling tired or having little energy: Several days 5. Poor appetite or overeating: Not at all 6. Feeling bad about yourself -- or that you are a failure or have let yourself or your family down: Not at all 7. Trouble concentrating on things, such as reading the newspaper or watching television: Not at all 8. Moving or speaking so slowly that other people could have noticed. Or the opposite - being so fidgety or restless that you have been moving around a lot more than usual: Not at all 9. Thoughts that you would be better off , or of hurting yourself in some way: Not at all How difficult have these problems made it for you to do your work, take care of things at home, or get along with other people?: Not difficult at all Total Score: 3 Self-Efficacy 60-Day Re-eval Assessment We would like to know how confident you are in doing certain activities. Please select your confidence level for:: Select your confidence level for the following using the scale 1-10 where 1 is not at all confident and 10 is totally confident. Your score is the average of all 6 responses. Fatigue: How confident are you that you can keep the fatigue caused by your disease from interfering with the things you want to do? Select Number: 4 Physical Discomfort or Pain: How confident are you that you can keep the physical discomfort or pain of your disease from interfering with the things you want to do? Select Number: 4 Emotional Distress: How confident are you that you can keep the emotional distress caused by your disease from interfering with the things you want to do? Select Number: 5 Other Symptoms or Health Problems: How confident are you that you can keep other symptoms or health problems from interfering with the things you want to do? Select Number: 5 Different Tasks and Activities: How confident are you that you can do the different tasks and activities needed to manage your health condition so as to reduce your need to see a doctor? Select Number: 4 Medication: How confident are you that you can do things other than just taking medication to reduce how much your illness affects your everyday life? Select Number: 5 Total Score:: 4
[2019-07-19 12:16] VITALS: BP 140/88; BP 150/100; BMI 49.4
== END 2019-08-18 23:59 ==
LOC: CR 06:41
PROVIDERS: PCP Family Medicine; Referring Provider Internal Medicine Cardiovascular Disease; Visit Provider Internal Medicine Cardiovascular Disease
DX: I25.10 Atherosclerotic heart disease of native coronary artery without angina pectoris (principal); I21.3 ST elevation (STEMI) myocardial infarction of unspecified site; I50.30 Unspecified diastolic (congestive) heart failure; Z95.5 Presence of coronary angioplasty implant and graft
CPT/HCPCS: 93798

== ENCOUNTER 2019-08-19 06:53 | Outpatient (RCR) | payer OTHER, SELFPAY ==
[2019-07-19 12:16] VITALS: BMI 49.4
[2019-08-02 10:52] VITALS: BMI 45.6
[2019-08-19 00:27] VITALS: BP 140/88; BP 150/100
== END 2019-09-17 23:59 ==
LOC: CR 06:53
PROVIDERS: PCP Family Medicine; Referring Provider Internal Medicine Cardiovascular Disease; Visit Provider Internal Medicine Cardiovascular Disease
DX: I25.10 Atherosclerotic heart disease of native coronary artery without angina pectoris (principal); I21.3 ST elevation (STEMI) myocardial infarction of unspecified site; I50.30 Unspecified diastolic (congestive) heart failure; Z95.5 Presence of coronary angioplasty implant and graft
CPT/HCPCS: 93798

== ENCOUNTER 2019-09-02 08:23 | Day surgery (SDC) | payer OTHER, SELFPAY ==
[2019-07-19 12:16] VITALS: BMI 49.4
[2019-08-02 10:52] VITALS: BMI 45.6
[2019-09-02] VITALS (8 sets, daily range): BP systolic 104–116; BP diastolic 64–93; PULSE 44–61; RESP 18–22; TEMP 36.3–36.8; O2SAT 97–100; BMI 46.3
[2019-09-02] MEDS: Lactated Ringers 1,000 ML 100 ML IV (09:08)
--- NOTE | 2019-09-02 09:30 | RAD_ITS ---
STUDY: X-RAY - PELVIS AND RIGHT HIP REASON FOR EXAM: Male, 59 years old. RT HIP INJECTION. 9 SEC. FL TECHNIQUE: 4 views of the pelvis and hip. COMPARISON: None. FINDINGS: Intraoperative imaging provided for right hip joint injection. RAD/Fluoro Guided Needle Placement IMPRESSION: Intraoperative imaging provided for right hip injection. Electronically Signed: Celestine Reynolds, at 15:08 EDT , Service support ,
[2019-09-02] MEDS: MethylPREDNISolone Acetate 80 MG/ML Vial (09:42)
[2019-09-02] MEDS: Bupivacaine 0.25% 30 ML Vial (09:42)
--- NOTE | 2019-09-02 09:54 | PCM.OPRPT ---
Report of Operation Date of Procedure: 09/02/19 Description of Surgical Findings:: PREOPERATIVE DIAGNOSIS: Osteoarthritis of the right hip POSTOPERATIVE DIAGNOSIS: Osteoarthritis of the right hip PROCEDURE PERFORMED: Right hip intraarticular steroid injection under fluoroscopy guidance. ANESTHESIA: MAC. BLOOD LOSS: Minimal. COMPLICATIONS: None. DESCRIPTION OF PROCEDURE: History and physical of today was reviewed. Risks and benefits of the procedure were explained. The patient understood and agreed to proceed. Informed consent was obtained. IV inserted per routine protocol. The patient was taken to the operating room and placed in the supine position. The Right hip area was prepped and draped in a sterile fashion using iodine x3. Under fluoroscopy guidance on AP view, the Right hip joint was visualized. The skin and subcutaneous tissue was anesthetized with approximately 3 mL of 1% lidocaine using a 25-gauge regular needle approximately 3 cm cephalad to the Right greater trochanter. Under direct visualization with fluoroscopy on an AP view, using a 22-gauge 6-inch spinal needle, the needle was advanced via the skin using the lateral approach. The tip of the needle was maneuvered and directed towards the superiormost aspect of the hip joint. Once the tip of the needle was at the vicinity of the joint, after negative aspiration for blood and positive aspiration of synovial fluid, a total of 1 mL of contrast was injected to confirm correct placement of the needle as well as halo spread around the hip joint. After repeated negative aspiration for blood and confirmation on AP as well as oblique view, a total of 10 mL of preservative-free 0.25% Marcaine with 80 mg of Depo-Medrol was injected easily. The needle was then removed intact. The patient experienced no sign or symptoms of intrathecal or intravascular injection. The patient experienced no paresthesia. The procedure was completed without any apparent difficulty or any complications. The patient appeared to tolerate it well. ASSESSMENT AND PLAN: This is a 59-year-old male with osteoarthritis of the right hip status post right hip intra-articular steroid injection under fluoroscopic guidance, patient will continue his current medications, patient will follow approximately 2 weeks for reevaluation.
== END 2019-09-02 10:42 | disposition home or self-care (01) ==
LOC: SDC 08:24 → AC 08:25
PROVIDERS: PCP Family Medicine; Referring Provider Anesthesiology Pain Medicine; Visit Provider Anesthesiology Pain Medicine
PROC: 3E0U3GC Introduction of Other Therapeutic Substance into Joints, Percutaneous Approach (ICD-10-PCS; CPT 20610; principal; 2019-09-02 09:45)
DX: M16.11 Unilateral primary osteoarthritis, right hip (principal); I48.91 Unspecified atrial fibrillation; I10 Essential (primary) hypertension; F17.210 Nicotine dependence, cigarettes, uncomplicated; Z86.718 Personal history of other venous thrombosis and embolism; Z79.01 Long term (current) use of anticoagulants; Z79.82 Long term (current) use of aspirin; Z79.02 Long term (current) use of antithrombotics/antiplatelets; Z79.891 Long term (current) use of opiate analgesic; Z79.899 Other long term (current) drug therapy
CPT/HCPCS: 20610; 76000; 77002; J7120

== ENCOUNTER 2019-10-21 06:01 | Day surgery (SDC) | payer OTHER, SELFPAY ==
[2019-07-19 12:16] VITALS: BMI 49.4
[2019-09-02 08:57] VITALS: BMI 46.3
[2019-10-21] VITALS (8 sets, daily range): BP systolic 117–142; BP diastolic 78–100; PULSE 43–53; RESP 18–20; TEMP 36.4–36.6; O2SAT 95–99; BMI 49.0
[2019-10-21] MEDS: Lactated Ringers 1,000 ML 100 ML IV (06:41)
--- NOTE | 2019-10-21 07:30 | RAD_ITS ---
PROCEDURE: Right L5-S3 facet block. DATE OF EXAMINATION: 10/21/2019 INDICATION: Male, 59 years old. Chronic low back pain. FLUOROSCOPY TIME (if supplied): (24.8 seconds) minutes/seconds intraoperative images provided for right L5-S3 facet block. RAD/L/S Spine Min 4 Views IMPRESSION: Intraoperative imaging provided for right L5-S3 facet block. Electronically Signed: Celestine Reynolds, at 14:01 EDT , Service support ,
[2019-10-21] MEDS: MethylPREDNISolone Acetate 80 MG/ML Vial (07:39)
[2019-10-21] MEDS: Bupivacaine 0.25% 30 ML Vial (07:41)
--- NOTE | 2019-10-21 08:50 | HP_ITS ---
CC F/U- post rt hip injection decreased pain by 50% HPI This is a 59 Y/O Male who was seen and evaluated at our office today as a follow up. Pain: lower back and eldon hips (rt is worse) and rt leg Quality: constant but varies in intensity Region: pain in lower back into hips but rt is still worse and radiates down the rt leg Severity: dull-intense aching Timin Aggravated by: bending over, walking Relieved by: resting Pain score (out of 10): 08/27 Other info: Patient is here for a follow up post right hip injection decreased pain by 50%. Patient states he has pain on right side lower back that goes into right hip and on occasion down his right leg. States injection helped well but pain is starting to come back and it is beginning to be hard for him to stand up straight. Denies any change in bowel or bladder issues, patient would like to discuss another injection. ROS Notes SOB due to respiratory issues. Patient denies any fever, chills, headache, change in weight without trying, vision or hearing problems. No cp, pnd, orthopnea, or peripheral edema.They note no lumps or swollen glands, no new rashes, changing moles, or change in bowel or bladder function. Mood has been good overall. PMH h/o hypertension h/o asthma h/o rt broken thumb h/o walking pneumonia 2019 s/p rt knee arthroscopy 2000 s/p varicose vein sx s/p left THR 2005 s/p anterior lumbar fusion 04/2011 s/p posterior lumbar fusion 05/2011 s/p Left THR 2014 SH [Tobacco: Current every day smoker (1 ppd x 40 yrs = 40 pk yrs) Start Date: 02/21/2018 Pipe Smoker: No Cigar Smoker: No Chewing Tobacco User: No Electronic Cigarette User: No] Living situation: Single Occupation: Retired Tobacco: Cigarettes EtOH: Occasional Rec. drugs: Denies FH ======== Structured Family History ======== Grandparent: Diabetes mellitus Grandparent: Diabetes mellitus [employer] The information on this page is confidential. Any release of this information requires the written authorization of the patient listed above. Page 1 of 3 Printed By: Celena Osullivan, DIRECTOR OF CLINICAL EDUCATION 10/10/2019 11:52:55 AM [facility] (: 1960 ID: [id number]) Sep 16, 2019Mon 02:19 PM Allergies Penicillin, Red Dye, Lyrica Meds 1) Aleve 220 mg oral tablet, prn 2) aspirin 325 mg oral tablet, Take 1 tablet by mouth once daily 3) baclofen 10 mg oral tablet, 1 tablet PO TID PRN spasms. 4) cloNIDine 0.1 mg oral tablet, Take 1 tablet by mouth every evening 5) diclofenac sodium 75 mg oral delayed release tablet, 1 PO BID with food. 6) hydrALAZINE 50 mg oral tablet, Take 2 tablet by mouth once daily 7) HYDROcodone-acetaminophen 7.5 mg-325 mg oral tablet, Take 1-2 tablet by mouth every 4 hours prn 8) Lasix 40 mg oral tablet, Take 1 tablet by mouth 2 times a Day 9) lisinopril 40 mg oral tablet, Take 1 tablet by mouth 2 times a Day 10) nicotine 21 mg/24 hr transdermal film, extended release, once daily as directed 11) ProAir HFA 90 mcg/inh inhalation aerosol, as directed 12) sotalol 80 mg oral tablet, Take 1 tablet by mouth 2 times a Day 13) traZODone 50 mg oral tablet, Take 1 tablet by mouth every evening 14) Vitamin B12 500 mcg oral tablet, Take 1 tablet by mouth 2 times a Day 15) warfarin 5 mg oral tablet, Take 1 tablet by mouth every evening Vitals Wt: 355 lb Ht/Ln: 71 m BMI: 0.0 BP: 115/77 Pulse: 57 RR: 18 Temp: 96.9F Pain: 7 PE Well nourished and well developed in no acute distress. Affect is normal and appropriate. Mucosa pink and moist. Chest is unlabored breathing, pt is alert and oriented to place, person and time, right shoulder patch in place. Neck is supple without significant lymphadenopathy or thyromegaly. Abdomen soft & non-tender, Extremities show no cyanosis, clubbing, 3+ pedal edema, morbidly obese. Gait is Antalgic. Lumbar ROM is limited due to pain worse with extension. Lumbar paraspinal muscle tenderness worse on the right. Bilateral lumbar facet loading is positive worse on the right. Sacroiliac Joint Tenderness on palpation on the right. Positive IGOR test. Positive surgical scar that is well healed. SLR is positive on the right. ROM of the right hip is limited due to pain worse with internal rotation improved Motor and sensory exam is unchanged. A/P # Lumbar post-laminectomy syndrome (M96.1): # Degeneration of lumbosacral intervertebral disc (M51.37): # Unilateral primary osteoarthritis of hip (M16.11): # Lumbosacral radiculopathy (M54.17): # Sacroiliitis, not elsewhere classified (M46.1): # Disorder of sacrum (M53.3): # Lumbosacral spondylosis (M47.817): # Arthropathy of lumbar facet (M46.96): # snf (current) use of opiate analgesic (Z79.891): Continue with his current medications. Follow up with his PCP. Continue with his current medications, he continues to have his medications from his PCP. OARRS was reviewed today. Xray of the bilateral hips was reviewed with the pt today and they appear to understand. UDS was reviewed and was compliant. SOAPP score is 2 Life style modifications were also discussed today and the pt appears to understand. [employer] The information on this page is confidential. Any release of this information requires the written authorization of the patient listed above. Page 2 of 3 Printed By: Celena Osullivan, DIRECTOR OF CLINICAL EDUCATION 10/10/2019 11:52:55 AM [facility] (: 1960 ID: [id number]) Sep 16, 2019 Mon 02:19 PM PEG was reviewed today. Weight loss was recommended today through diet and exercise. Smoking cessation was discussed today and pt was encouraged. There are no signs of diversion or addiction with the pt, there is also no signs of abuse or misuse, continues to do well with their medications without any side effects, we will continue monitoring the pt closely Risks and benefits of the above meds were discussed with the pt and they appear to understand. The common side effects of the medications were discussed and all of their questions and concerns were answered and they appear to understand Discussed natural and expected course of this diagnosis and need to alert me if symptoms do not follow expected course, or if any worse. Pt is to continue with his HEP. Pt has tried multiple modalities with no success, we will schedule the pt for a therapeutic/diagnostic right lumbar radio frequency ablation L5-S3 under fluoroscopy as pt received excellent relief from 2 injections in this region however, the relief was short lived. We have discussed the risks, benefits as well as alternatives of the procedure and the patient appears to understand and would like to proceed with the above plan. The above plan was discussed today with the pt in details and they appear to understand and agrees to continue with the plan. PROVIDED: Patient Education (09/16/2019) Signed by: MARIFER TENORIO NP {Reviewed by Ellie Owens MD. Signed on 09/19/19 2:48 PM. } 09/16/19 2:44 PM Electronically Signed By: MARIFER TENORIO NP/Ilana Owens MD Coded: Medium Complexity > [id number] [employer] The information on this page is confidential. Any release of this information requires the written authorization of the patient listed above. Page 3 of 3 Printed By: Celena Osullivan, DIRECTOR OF CLINICAL EDUCATION 10/10/2019 11:52:55 AM
--- NOTE | 2019-10-21 11:19 | PCM.OPRPT ---
Report of Operation Date of Procedure: 10/21/19 Description of Surgical Findings:: PROCEDURE: Right-sided radiofrequency ablation of the medial branch L5-S1, S2, S3 PREOPERATIVE DIAGNOSES: Lumbosacral spondylosis, sacroiliitis, disorder of the sacrum POSTOPERATIVE DIAGNOSES: Lumbosacral spondylosis, sacroiliitis, disorder of the sacrum ANESTHESIA: MAC COMPLICATIONS: None BLOOD LOSS: Minimal PROCEDURE IN DETAIL: History and physical today was reviewed. Risks and benefits of procedure explained. The patient understood, agreed to the procedure and informed consent was obtained. IV inserted per routine protocol. The patient was taken to the operating room, placed in the prone position with a pillow positioned underneath the abdomen. The right side of the lower back and buttock area was prepped and draped in a sterile fashion using iodine x 3. Under fluoroscopy guidance, on AP view, the L5 through S3 and sacroiliac joint were visualized. The skin and subcutaneous tissue was anesthetized with approximately 10 mL of 1% lidocaine using a 25-gauge regular needle. Under direct visualization with fluoroscopy at approximately 15-degree angle, starting on the right L5, ending on the right S3, passing through the S1, S2 lateral branch. Using a 22-gauge 10 cm with a 10 mm curved active tip radiofrequency ablation needle, the needle passed through the skin. The tip of the needle was maneuvered and directed towards the superior and medial gutter of the transverse process at the vicinity of the medial branch. The second needle was then maneuvered and directed towards the sacral ala and the third and fourth needle were then directed towards the medial border of the sacroiliac joint at the S2, S3 area. Once the tip of the needle was at the vicinity of the medial branch/lateral branch, the needle pulled approximately 2 mm up the bone. The stylet of each needle was then removed. The radiofrequency ablation probe was then inserted at each level. After confirmation of AP, oblique as well as lateral view, impedance was then recorded at L5 to be 315, at S1 236, at S2 279, at S3 270 ohm. Motor-evoked potential was then initiated to 1.5 volt without any motor response at each corresponding level. The probe was then removed intact and a total of 6 mL of preservative-free 1% lidocaine was injected in divided doses between those 4 levels after negative aspiration of blood with CSF. The radiofrequency ablation probe was then reinserted after confirmation of AP, oblique as well as lateral view. Radiofrequency ablation was then initiated to 80 degrees Celsius for 90 seconds at each level. Once concluded, the probe was then removed intact and a total of 6 mL of preservative-free 0.25% Marcaine with 40 mg Depo-Medrol was injected in divided doses between those 4 levels. The needles were then removed intact. The patient experienced no signs or symptoms of intrathecal, intravascular injection. The patient experienced no paraesthesia. The procedure was completed without any apparent difficulty, any complication. The patient appeared to tolerate well. Sensory as well as motor exam was unchanged from prior to procedure. ASSESSMENT AND PLAN: This is a 59-year-old Male with Lumbosacral spondylosis, sacroiliitis, disorder of the sacrum, status post right-sided radiofrequency ablation of the medial branch L5 through S3. The patient will continue his current medications. The patient will follow up in approximately 2 weeks for reevaluation.
== END 2019-10-21 09:03 | disposition home or self-care (01) ==
LOC: SDC 06:01 → AC 06:02
PROVIDERS: PCP Family Medicine; Referring Provider Anesthesiology Pain Medicine; Visit Provider Anesthesiology Pain Medicine
PROC: (CPT 64635; principal; 2019-10-21 07:15)
DX: M47.817 Spondylosis without myelopathy or radiculopathy, lumbosacral region (principal); M46.1 Sacroiliitis, not elsewhere classified; M53.3 Sacrococcygeal disorders, not elsewhere classified; M96.1 Postlaminectomy syndrome, not elsewhere classified; M46.96 Unspecified inflammatory spondylopathy, lumbar region; G89.29 Other chronic pain; I48.91 Unspecified atrial fibrillation; I10 Essential (primary) hypertension; J44.9 Chronic obstructive pulmonary disease, unspecified; F17.210 Nicotine dependence, cigarettes, uncomplicated; Z86.718 Personal history of other venous thrombosis and embolism; Z79.82 Long term (current) use of aspirin; Z79.01 Long term (current) use of anticoagulants; Z79.891 Long term (current) use of opiate analgesic; Z79.899 Other long term (current) drug therapy
CPT/HCPCS: 64635; 64636 ×2; 72110; 76000; J7120

== ENCOUNTER 2019-12-23 08:14 | Day surgery (SDC) | payer OTHER, SELFPAY ==
[2019-07-19 12:16] VITALS: BMI 49.4
[2019-10-21 06:26] VITALS: BMI 49.0
[2019-12-23] VITALS (7 sets, daily range): BP systolic 87–110; BP diastolic 58–74; PULSE 50–59; RESP 16–18; TEMP 36.2–36.6; O2SAT 96–100; BMI 49.3
[2019-12-23] MEDS: Lactated Ringers 1,000 ML 100 ML IV (09:00)
--- NOTE | 2019-12-23 09:03 | RAD_ITS ---
CLINICAL HISTORY: Male, 59 years old. Lower back pain PROCEDURE: EPIDUROGRAM - Caudal block FLUOROSCOPY TIME (if supplied): (0:17) minutes. 2 Images. RADIATION DOSAGE (If Supplied By Facility): CTDIvol = ( ) mGy, DLP = ( ) mGycm TECHNIQUE: LUMBAR FACET STEROID INJECTION L3, L4, S1. RAD/L/S Spine Min 4 Views IMPRESSION: LUMBAR FACET STEROID INJECTION L3, L4, S1 Electronically Signed: Angelina Dickens, at 11:06 EDT Tel , Service support ,
[2019-12-23] MEDS: MethylPREDNISolone Acetate 80 MG/ML Vial (09:11)
[2019-12-23] MEDS: Bupivacaine 0.25% 30 ML Vial (09:11)
--- NOTE | 2019-12-23 17:05 | PCM.OPRPT ---
Report of Operation Date of Procedure: 12/23/19 Description of Surgical Findings:: PREOPERATIVE DIAGNOSIS: Lumbosacral spondylosis, lumbosacral degenerative disc disease, lumbar facet arthropathy POSTOPERATIVE DIAGNOSIS: Lumbosacral spondylosis, lumbosacral degenerative disc disease, lumbar facet arthropathy PROCEDURE PERFORMED: Right-sided lumbar facet steroid injection, L3, L4, L5, and S1. ANESTHESIA: MAC. BLOOD LOSS: Minimal. COMPLICATIONS: None. DESCRIPTION OF PROCEDURE: History and physical of today was reviewed. Risks and benefits of the procedure were explained. The patient understood and agreed to proceed. Informed consent was obtained. IV inserted per routine protocol. The patient was taken to the operating room and placed in the prone position with a pillow positioned underneath the abdomen. The right side of her lower back was prepped and draped in a sterile fashion using iodine x3. Under fluoroscopy on oblique view, the L3 through S1 vertebral bodies were visualized. The skin and subcutaneous tissue was anesthetized with approximately 5 mL of 1% lidocaine using a 25-gauge regular needle. Under direct visualization with fluoroscopy, at approximately 25-degree angle starting on the right L3, ending on the right S1, passing through the L4 and L5, using a 22-gauge 3-1/2-inch spinal needle, the needle was advanced via the skin. The tip of the needle was maneuvered and directed towards the superior medial gutter of the transverse process at the vicinity of the medial branch. Once tip of the needle was in contact with the bone, the needle was pulled approximately 2 mm off the bone. After negative aspiration of blood or CSF and confirmation on AP as well as oblique view, a total of 8 mL of preservative-free 0.25% Marcaine with 80 mg of Depo-Medrol was injected in divided doses between those four levels. The needles were then removed intact. The patient experienced no sign or symptoms of intrathecal or intravascular injection. The patient experienced no paresthesia. The procedure was completed without any apparent difficulty or any complications. The patient appeared to tolerate it well. ASSESSMENT AND PLAN: This is a 59-year-old male with lumbosacral spondylosis, lumbosacral degenerative disc disease, lumbar facet arthropathy status post right-sided lumbar facet steroid injection L3-S1 patient will continue his current medications, patient will follow approximately 2 weeks for reevaluation.
== END 2019-12-23 10:05 | disposition home or self-care (01) ==
LOC: SDC 08:15 → AC 08:16
PROVIDERS: PCP Family Medicine; Referring Provider Anesthesiology Pain Medicine; Visit Provider Anesthesiology Pain Medicine
PROC: 3E0T3BZ Introduction of Anesthetic Agent into Peripheral Nerves and Plexi, Percutaneous Approach (ICD-10-PCS; CPT 64493; principal; 2019-12-23 09:55)
DX: M51.17 Intervertebral disc disorders with radiculopathy, lumbosacral region (principal); M47.27 Other spondylosis with radiculopathy, lumbosacral region; M96.1 Postlaminectomy syndrome, not elsewhere classified; M46.1 Sacroiliitis, not elsewhere classified; M46.96 Unspecified inflammatory spondylopathy, lumbar region; M16.11 Unilateral primary osteoarthritis, right hip; I10 Essential (primary) hypertension; J45.909 Unspecified asthma, uncomplicated; F17.210 Nicotine dependence, cigarettes, uncomplicated; Z79.891 Long term (current) use of opiate analgesic; Z79.01 Long term (current) use of anticoagulants; Z79.82 Long term (current) use of aspirin; Z79.899 Other long term (current) drug therapy; Z86.718 Personal history of other venous thrombosis and embolism
CPT/HCPCS: 01992; 64493; 64494; 64495; 64483; 72110; J7120

== ENCOUNTER 2020-01-20 06:13 | Day surgery (SDC) | payer OTHER, SELFPAY ==
[2019-07-19 12:16] VITALS: BMI 49.4
[2019-12-23 08:46] VITALS: BMI 49.3
[2020-01-20 07:03] VITALS: BP 103/52; PULSE 56; RESP 16; TEMP 36.6; O2SAT 98; BMI 46.7
[2020-01-20] MEDS: Lactated Ringers 1,000 ML 100 ML IV (07:19)
--- NOTE | 2020-01-20 08:20 | RAD_ITS ---
PROCEDURE: Lumbar facet injection. DATE OF EXAMINATION: 01/20/2020 INDICATION: Male, 59 years old. Chronic low back pain. FLUOROSCOPY TIME (if supplied): (13.7 seconds) minutes/seconds. 4 images were obtained. Intraoperative imaging provided for right L3-S1 facet joint injection. RAD/L/S Spine Min 4 Views IMPRESSION: Intraoperative imaging provided for right L3-S1 facet joint injection. Electronically Signed: Celestine Reynolds, at 9:29 EST , Service support ,
[2020-01-20] MEDS: MethylPREDNISolone Acetate 40 MG/ML Vial IM (08:22)
[2020-01-20] MEDS: Bupivacaine 0.25% 30 ML Vial (08:22)
[2020-01-20 08:31] VITALS: BP 103/52; BP 120/75; PULSE 62; RESP 14; TEMP 36.4; O2SAT 98
[2020-01-20 08:35] VITALS: BP 103/52; BP 120/75; PULSE 58; RESP 18; O2SAT 98
[2020-01-20 08:40] VITALS: BP 103/52; BP 117/73; PULSE 55; RESP 18; O2SAT 94
[2020-01-20 08:48] VITALS: BP 103/52; BP 114/75; PULSE 55; RESP 18; TEMP 36.5; O2SAT 95
[2020-01-20 09:05] VITALS: BP 103/52
--- NOTE | 2020-01-20 14:37 | OP.PCM_ITS ---
Report of Operation Date of Procedure: 01/20/20 Description of Surgical Findings:: PROCEDURE: Right-sided lumbar facet steroid injection L3, L4, L5, S1 PREOPERATIVE DIAGNOSIS: Lumbosacral spondylosis, lumbosacral degenerative disc disease, and lumbar facet arthropathy POSTOPERATIVE DIAGNOSIS: Lumbosacral spondylosis, lumbosacral degenerative disc disease, and lumbar facet arthropathy ANESTHESIA: MAC COMPLICATIONS: None BLOOD LOSS: Minimal PROCEDURE IN DETAIL: History and physical today was reviewed. Risks and benefits of the procedure were explained. The patient understood, agreed to our procedure, and informed consent was obtained. IV inserted per routine protocol. The patient was taken to the operating room, placed in a prone position with a pillow positioned underneath the abdomen. The right side of his lower back was prepped and draped in a sterile fashion using iodine x3. Under fluoroscopy guidance, on AP view, L3 through S1 vertebral bodies were visualized. Skin and subcutaneous tissues were anesthetized with approximately 5 mL of 1% lidocaine using a 25-gauge regular needle. Under direct visualization with fluoroscopy at approximately 25-degree angle, starting on the right L3, ending on the right S1, passing through the L4-L5 using a 22-gauge 5-inch spinal needle, the needle was advanced via the skin. The tip of the needle was maneuvered and directed towards the superior and medial gutter of the transverse process at the vicinity of the medial branch. Once the tip of the needle was in contact with the bone, the needle pulled approximately 2 mm off the bone. After negative aspiration of blood with CSF and confirmation of AP as well as oblique view, a total of 8 mL of preservative-free 0.25% Marcaine with 80 mg of Depo- Medrol was injection in divided doses between those 4 levels. The needles were then removed intact. The patient experienced no signs or symptoms intrathecal, intravascular injection. The patient experienced no paraesthesia. The procedure was completed without any apparent difficult, any complication. The patient appeared to tolerate well. ASSESSMENT AND PLAN: This is a 59-year-old Male with Lumbosacral spondylosis, lumbosacral degenerative disc disease, and lumbar facet arthropathy, status post right-sided lumbar facet steroid injection L3 through S1. The patient will continue his current medications. The patient will follow in approximately 2 weeks for reevaluation
== END 2020-01-20 09:28 | disposition home or self-care (01) ==
LOC: SDC 06:14 → AC 06:15
PROVIDERS: PCP Family Medicine; Referring Provider Anesthesiology Pain Medicine; Visit Provider Anesthesiology Pain Medicine
PROC: 3E0T3BZ Introduction of Anesthetic Agent into Peripheral Nerves and Plexi, Percutaneous Approach (ICD-10-PCS; CPT 64493; principal; 2020-01-20 08:15)
DX: M47.817 Spondylosis without myelopathy or radiculopathy, lumbosacral region (principal); M51.37 Other intervertebral disc degeneration, lumbosacral region; M46.96 Unspecified inflammatory spondylopathy, lumbar region; G89.29 Other chronic pain; I10 Essential (primary) hypertension; J44.9 Chronic obstructive pulmonary disease, unspecified; F17.210 Nicotine dependence, cigarettes, uncomplicated; Z79.891 Long term (current) use of opiate analgesic; Z79.01 Long term (current) use of anticoagulants; Z79.02 Long term (current) use of antithrombotics/antiplatelets; Z79.899 Other long term (current) drug therapy; Z86.718 Personal history of other venous thrombosis and embolism
CPT/HCPCS: 01992; 64493; 64494; 64495; 64483; 72110; J7120

== ENCOUNTER 2020-02-24 06:40 | Day surgery (SDC) | payer OTHER, SELFPAY ==
[2019-07-19 12:16] VITALS: BMI 49.4
[2020-02-24 07:10] LABS: Prothrombin Time Fingerstick 15.4 SEC (11.9-14.4)
[2020-02-24 07:18] VITALS: BP 96/55; PULSE 55; RESP 18; TEMP 36.2; O2SAT 97; BMI 46.6
[2020-02-24] MEDS: Lactated Ringers 1,000 ML 100 ML IV (07:39)
--- NOTE | 2020-02-24 08:00 | RAD_ITS ---
STUDY: X-RAY - LUMBAR SPINE REASON FOR EXAM: Male, 59 years old. Radio frequency ablation, l3-s1 right TECHNIQUE: 3 view(s) of the lumbar spine were obtained. COMPARISON: None FINDINGS: Intraoperative imaging provided for right L3-S1 radiofrequency ablation. RAD/Lumbar Spine 2 or 3 Views IMPRESSION: Intraoperative imaging provided for right L3-S1 radiofrequency ablation. Electronically Signed: Celestine Reynolds, at 15:52 EST , Service support ,
[2020-02-24] MEDS: MethylPREDNISolone Acetate 40 MG/ML Vial IM (08:18)
[2020-02-24] MEDS: Bupivacaine 0.25% 30 ML Vial (08:18)
[2020-02-24] MEDS: Lidocaine 1% (30 ml sdv) 30 ML Vial (08:18)
--- NOTE | 2020-02-24 08:30 | PCM.OPRPT ---
Report of Operation Date of Procedure: 02/24/20 Description of Surgical Findings:: PROCEDURE: Right-sided lumbar radiofrequency ablation of the medial branch L3, L4, L5, S1 PREOPERATIVE DIAGNOSES: Lumbosacral spondylosis, lumbosacral degenerative disc disease, lumbar facet arthropathy POSTOPERATIVE DIAGNOSES: Lumbosacral spondylosis, lumbosacral degenerative disc disease, lumbar facet arthropathy ANESTHESIA: MAC COMPLICATIONS: None BLOOD LOSS: Minimal PROCEDURE IN DETAIL: History and physical today was reviewed. Risks and benefits of procedure explained. The patient understood, agreed to the procedure and informed consent was obtained. IV inserted per routine protocol. The patient was taken to the operating room, placed in the prone position with a pillow positioned underneath the abdomen. The right side of the lower back was prepped and draped in a sterile fashion using iodine x 3. Under fluoroscopy guidance, on an oblique view, the L3 through S1 vertebral bodies were visualized. The skin and subcutaneous tissue was anesthetized with approximately 10 mL of 1% lidocaine using a 25-gauge regular needle. Under direct visualization with fluoroscopy at approximately 25-degree angle, starting on the right L3, ending on the right S1 passing through the L4-L5 using a 20-gauge 15 cm with a 10 mm curved active tip radiofrequency ablation needle the needle passed through the skin. The tip of the needle was maneuvered and directed towards the superior and medial gutter of the transverse process at the vicinity of the medial branch. Once the tip of the needle was in contact with the bone, the needle pulled approximately 2 mm up the bone. The stylet of each needle was then removed. After negative aspiration of blood with CSF and confirmation of AP as well as oblique view, radiofrequency ablation probe was then inserted at each level. Impedance was then recorded at L3 to be 271, at L4 372, at L5 209, at S1 232 ohm. Motor-evoked potential was then initiated to 1.5 volt without any motor response at each corresponding level. The probe was then removed intact and a total of 6 mL preservative-free 1% lidocaine was injected in divided doses between those 4 levels after negative aspiration of blood with CSF. The radiofrequency ablation probe was then reinserted after confirmation of AP, oblique as well as lateral view. Radiofrequency ablation was then initiated to 80 degrees Celsius for 90 seconds at each level. Once concluded, the probe was then removed intact and a total of 6 mL of preservative-free 0.25% Marcaine with 40 mg Depo-Medrol was injected in divided doses between those 4 levels. The needles were then removed intact. The patient experienced no signs or symptoms of intrathecal, intravascular injection. The patient experienced no paraesthesia. The procedure was completed without any apparent difficulty, any complication. The patient appeared to tolerate well. Sensory as well as motor exam was unchanged from prior to procedure. ASSESSMENT AND PLAN: This is a 59-year-old male with lumbosacral spondylosis, lumbosacral degenerative disc disease, lumbar facet arthropathy, status post right-sided lumbar radiofrequency ablation of the medial branch L3 through S1. The patient will continue his current medications. The patient will follow up in approximately 2 weeks for reevaluation.
[2020-02-24 08:35] VITALS: BP 84/63; BP 96/55; PULSE 56; RESP 16; TEMP 36.2; O2SAT 96
[2020-02-24 08:40] VITALS: BP 88/59; BP 96/55; PULSE 51; RESP 16; O2SAT 92
[2020-02-24 08:45] VITALS: BP 92/58; BP 96/55; PULSE 55; RESP 16; O2SAT 95
[2020-02-24 08:50] VITALS: BP 96/55; BP 99/65; PULSE 51; RESP 16; TEMP 36.4; O2SAT 95
[2020-02-24 09:19] VITALS: BP 96/55
== END 2020-02-24 09:38 | disposition home or self-care (01) ==
LOC: SDC 06:41 → AC 06:41
PROVIDERS: PCP Family Medicine; Referring Provider Anesthesiology Pain Medicine; Visit Provider Anesthesiology Pain Medicine
PROC: (CPT 64635; principal; 2020-02-24 07:55)
DX: M47.817 Spondylosis without myelopathy or radiculopathy, lumbosacral region (principal); M51.37 Other intervertebral disc degeneration, lumbosacral region; M46.96 Unspecified inflammatory spondylopathy, lumbar region; M54.17 Radiculopathy, lumbosacral region; M96.1 Postlaminectomy syndrome, not elsewhere classified; I48.0 Paroxysmal atrial fibrillation; I25.2 Old myocardial infarction; I10 Essential (primary) hypertension; J44.9 Chronic obstructive pulmonary disease, unspecified; E78.00 Pure hypercholesterolemia, unspecified; F17.210 Nicotine dependence, cigarettes, uncomplicated; Z95.5 Presence of coronary angioplasty implant and graft; Z86.718 Personal history of other venous thrombosis and embolism; Z79.01 Long term (current) use of anticoagulants; Z79.82 Long term (current) use of aspirin; Z79.891 Long term (current) use of opiate analgesic; Z79.899 Other long term (current) drug therapy
CPT/HCPCS: 64635; 64636; 36416; 72100; 76000; 85610; J7120

== ENCOUNTER 2020-10-05 07:24 | Day surgery (SDC) | payer OTHER, SELFPAY ==
[2019-07-19 12:16] VITALS: BMI 49.4
[2020-10-05 07:55] LABS: INR Fingerstick 1.9; Prothrombin Time Fingerstick 21.8 SEC (11.9-14.4)
[2020-10-05 07:57] VITALS: BP 109/65; PULSE 60; RESP 16; TEMP 36.3; O2SAT 96; BMI 44.9
[2020-10-05] MEDS: Lactated Ringers 1,000 ML 100 ML IV (08:27)
--- NOTE | 2020-10-05 09:33 | RAD_ITS ---
STUDY: X-RAY - SACROILIAC JOINTS REASON FOR EXAM: Male, 60 years old. Right SI joint steroid injection. TECHNIQUE: A single frontal digital documentation view(s) of the sacroiliac joints were obtained. COMPARISON: None. FINDINGS: Single frontal view of the SI joints shows a needle with contrast in the SI joint. RAD/Fluoro Guided Needle Placement IMPRESSION: Digital documentation view as described. Electronically Signed: Wallace Crystal MD at 11:13 EDT , Service support ,
[2020-10-05] MEDS: MethylPREDNISolone Acetate 80 MG/ML Vial (09:34)
[2020-10-05] MEDS: Bupivacaine 0.25% 30 ML Vial (09:34)
[2020-10-05] MEDS: Lidocaine 1% (5 ml sdv) 5 ML Vial (09:34)
[2020-10-05 09:45] VITALS: BP 109/65; BP 114/67; PULSE 46; RESP 16; TEMP 36.1; O2SAT 100
[2020-10-05 09:50] VITALS: BP 109/65; BP 115/77; PULSE 48; RESP 16; O2SAT 100
[2020-10-05 09:55] VITALS: BP 109/65; BP 116/78; PULSE 45; RESP 16; O2SAT 100
[2020-10-05 10:00] VITALS: BP 109/65; BP 121/76; PULSE 49; RESP 16; TEMP 36.2; O2SAT 99
[2020-10-05 10:23] VITALS: BP 109/65
--- NOTE | 2020-10-05 17:28 | PCM.OPRPT ---
Report of Operation Date of Procedure: 10/05/20 Description of Surgical Findings:: PREOPERATIVE DIAGNOSES: 1. Sacroiliitis. 2. Sacroiliac joint dysfunction. POSTOPERATIVE DIAGNOSES: 1. Sacroiliitis. 2. Sacroiliac joint dysfunction. PROCEDURE PERFORMED: Right sacroiliac joint steroid injection under fluoroscopy guidance. ANESTHESIA: MAC. BLOOD LOSS: Minimal. COMPLICATIONS: None. DESCRIPTION OF PROCEDURE: History and physical of today was reviewed. Risks and benefits of the procedure were explained. The patient understood and agreed to the procedure. Informed consent was obtained. IV inserted per routine protocol. The patient was taken to the operating room and placed in the prone position with a pillow positioned underneath the abdomen. The right lower back and buttock area was prepped and draped in a sterile fashion using iodine x3. Under fluoroscopy guidance on an AP view, the right SI joint was visualized. The skin and subcutaneous tissue was anesthetized with approximately 3 mL of 1% lidocaine using a 25-gauge regular needle. Under direct visualization with fluoroscopy at approximately 15-degree angle, using a 22-gauge 3-1/2-inch spinal needle, the needle was advanced via the skin. The tip of the needle was maneuvered and directed towards the inferior one-third of the posterior SI joint. Once the tip of the needle was at the vicinity of the joint, after negative aspiration for blood or CSF, a total of 1 mL of contrast was injected to confirm correct placement of the needle as well as cephalocaudal spread. Confirmation was obtained on AP as well as oblique view. After repeated negative aspiration and confirmation, a total of 4 mL of preservative-free 0.25% Marcaine with 40 mg of Depo-Medrol was injected in and around the SI joint. The needle was then removed intact. The patient experienced no sign or symptoms of intrathecal or intravascular injection. The patient experienced no paresthesia. The procedure was completed without any apparent difficulty or any complications. The patient appeared to tolerate it well. ASSESSMENT AND PLAN: This is a 60-year-old male with sacroiliitis, SI joint dysfunction status post right-sided sacroiliac joint steroid injection under fluoroscopic guidance, patient will continue his current medications, patient phone approximately 2 weeks for reevaluation.
== END 2020-10-05 10:43 | disposition home or self-care (01) ==
LOC: SDC 07:26 → AC 07:29
PROVIDERS: PCP Family Medicine; Referring Provider Anesthesiology Pain Medicine; Visit Provider Anesthesiology Pain Medicine
PROC: 3E0U3GC Introduction of Other Therapeutic Substance into Joints, Percutaneous Approach (ICD-10-PCS; CPT 27096; principal; 2020-10-05 09:45)
DX: M46.1 Sacroiliitis, not elsewhere classified (principal); M53.3 Sacrococcygeal disorders, not elsewhere classified; I10 Essential (primary) hypertension; F17.210 Nicotine dependence, cigarettes, uncomplicated; Z79.01 Long term (current) use of anticoagulants; Z79.891 Long term (current) use of opiate analgesic; Z79.82 Long term (current) use of aspirin; Z79.899 Other long term (current) drug therapy
CPT/HCPCS: 27096; 36416; 76000; 77002; 85610; J7120

== ENCOUNTER 2020-11-02 07:38 | Day surgery (SDC) | payer OTHER, SELFPAY ==
[2019-07-19 12:16] VITALS: BMI 49.4
[2020-11-02] MEDS: Lactated Ringers 1,000 ML 100 ML IV (08:35)
[2020-11-02 08:49] VITALS: BP 110/63; PULSE 49; RESP 16; TEMP 36.3; BMI 47.5
[2020-11-02 09:35] LABS: International Normalized Ratio 1.9; Prothrombin Time (Protime)PT. 21.3 SECONDS (11.7-14.9)
--- NOTE | 2020-11-02 10:00 | RAD_ITS ---
PROCEDURE: Caudal block. DATE OF EXAMINATION: 11/02/2020. INDICATION: Male, 60 years old. Chronic low back pain. FLUOROSCOPY TIME (if supplied): (12 seconds) minutes/seconds. 2 images were obtained. RAD/Fluor Guidance for Spine Inj IMPRESSION: Intraoperative imaging provided for caudal block. Electronically Signed: Celestine Reynolds MD at 15:54 EDT , Service support ,
[2020-11-02] MEDS: MethylPREDNISolone Acetate 80 MG/ML Vial (10:18)
[2020-11-02] MEDS: Lidocaine 1% (5 ml sdv) 5 ML Vial (10:18)
[2020-11-02] MEDS: Bupivacaine Mpf 0.5% 30 ML VIAL (10:18)
[2020-11-02] MEDS: 0.9% Normal Saline (Pres. free 10 ML Vial (10:18)
[2020-11-02 10:31] VITALS: BP 110/63; BP 98/76; PULSE 50; RESP 14; TEMP 36.1; O2SAT 99
[2020-11-02 10:36] VITALS: BP 110/63; BP 124/67; PULSE 45; RESP 14; O2SAT 97
[2020-11-02 10:46] VITALS: BP 106/52; BP 110/63; PULSE 46; RESP 14; O2SAT 100
[2020-11-02 10:47] VITALS: BP 110/63
[2020-11-02 11:07] VITALS: BP 110/63; BP 110/70; PULSE 50; RESP 14; O2SAT 100
--- NOTE | 2020-11-02 11:19 | OP.PCM_ITS ---
Report of Operation Date of Procedure: 11/02/20 Pre-Operative Diagnosis: Lumbosacral radiculopathy, lumbosacral degenerative di sc disease, lumbosacral spinal stenosis Post-Operative Diagnosis: Lumbosacral radiculopathy, lumbosacral degenerative disc disease, lumbosacral spinal stenosis Surgery/Procedure Performed:: Caudal epidural steroid injection under fluoroscopic guidance Type of Anesthesia: MAC Estimated Blood Loss (mL): Minimal Description of Procedure: DESCRIPTION OF PROCEDURE: History and physical of today was reviewed. Risks and benefits of the procedure were explained. The patient understood and agreed to proceed. Informed consent was obtained. IV inserted per routine protocol. The patient was taken to the operating room and placed in the prone position with a pillow positioned underneath the abdomen. The lower back and tailbone area was prepped and draped in a sterile fashion using iodine x3. Under fluoroscopy guidance on a lateral view, the caudal space was identified. The skin and subcutaneous tissue was anesthetized with approximately 3 mL of 1% lidocaine using a 25-gauge regular needle. Under direct visualization with fluoroscopy, using a 22-gauge 3-1/2-inch spinal needle, the needle was advanced via the skin through the sacral hiatus. The tip of the needle was passed through the sacrococcygeal ligament and advanced to approximately S4 area. After negative aspiration of blood or CSF, a total of 3 mL of contrast was injected to confirm correct placement of the needle as well as cephalad spread. The spread was followed to approximately L5 area. After confirmation on AP as well as lateral view and repeated negative aspiration, a total of 15 mL of preservative-free 0.125% Marcaine with 80 mg of Depo-Medrol was injected easily. The needle was then removed intact. The patient experienced no sign or symptoms of intrathecal or intravascular injection. The patient experienced no paresthesia. The procedure was completed without any apparent difficulty or any complications. The patient appeared to tolerate it well. ASSESSMENT AND PLAN: This is a 60-year-old male with lumbosacral radiculopathy, lumbosacral degenerative disc disease, lumbosacral spinal stenosis status post caudal epidural steroid injection, patient will continue his current medications, patient will follow in approximately 2 weeks for reevaluation. Complications None
[2020-11-03 09:31] LABS: INR Fingerstick 1.7; Prothrombin Time Fingerstick 19.6 SEC (11.9-14.4)
== END 2020-11-02 11:16 | disposition home or self-care (01) ==
LOC: SDC 07:40 → AC 08:20
PROVIDERS: PCP Family Medicine; Referring Provider Anesthesiology Pain Medicine; Visit Provider Anesthesiology Pain Medicine
PROC: 3E0S3BZ Introduction of Anesthetic Agent into Epidural Space, Percutaneous Approach (ICD-10-PCS; CPT 62282; principal; 2020-11-02 09:55)
DX: M51.17 Intervertebral disc disorders with radiculopathy, lumbosacral region (principal); M48.07 Spinal stenosis, lumbosacral region; M96.1 Postlaminectomy syndrome, not elsewhere classified; G89.29 Other chronic pain; I25.10 Atherosclerotic heart disease of native coronary artery without angina pectoris; I11.0 Hypertensive heart disease with heart failure; I50.33 Acute on chronic diastolic (congestive) heart failure; I48.0 Paroxysmal atrial fibrillation; I48.92 Unspecified atrial flutter; J44.9 Chronic obstructive pulmonary disease, unspecified; F17.210 Nicotine dependence, cigarettes, uncomplicated; E66.01 Morbid (severe) obesity due to excess calories; Z68.42 Body mass index [BMI] 45.0-49.9, adult; Z79.01 Long term (current) use of anticoagulants; Z79.82 Long term (current) use of aspirin; Z79.891 Long term (current) use of opiate analgesic; Z79.899 Other long term (current) drug therapy; Z86.718 Personal history of other venous thrombosis and embolism
CPT/HCPCS: 01992; 62323; 36416; 64483; 77003; 85610; J7120; J3490

== ENCOUNTER 2020-12-07 07:24 | Day surgery (SDC) | payer OTHER, SELFPAY ==
[2019-07-19 12:16] VITALS: BMI 49.4
[2020-12-07 07:46] LABS: INR Fingerstick 1.1; Prothrombin Time Fingerstick 13.6 SEC (11.9-14.4)
[2020-12-07 07:54] VITALS: BP 137/90; PULSE 88; RESP 16; TEMP 36.3; O2SAT 99; BMI 48.1
[2020-12-07] MEDS: Lactated Ringers 1,000 ML 100 ML IV (08:00)
--- NOTE | 2020-12-07 08:00 | RAD_ITS ---
PROCEDURE: Radial frequency ablation. DATE OF EXAMINATION: 12/07/2020. INDICATION: Male, 60 years old. Chronic low back pain. FLUOROSCOPY TIME (if supplied): (26 seconds) minutes/seconds. 8 images were obtained. RAD/Sacrum-Coccyx min 2 Views IMPRESSION: Intraoperative imaging provided for right L5-S3 radiofrequency ablation. Electronically Signed: Celestine Reynolds MD at 14:30 EDT , Service support ,
[2020-12-07] MEDS: Bupivacaine 0.25% 30 ML Vial (08:28)
[2020-12-07] MEDS: MethylPREDNISolone Acetate 40 MG/ML Vial IM (08:28)
[2020-12-07] MEDS: Lidocaine 1% (30 ml sdv) 30 ML Vial (08:29)
[2020-12-07 08:50] VITALS: BP 115/64; BP 137/90; PULSE 52; RESP 18; TEMP 36.2; O2SAT 100
[2020-12-07 08:55] VITALS: BP 113/75; BP 137/90; PULSE 49; RESP 16; O2SAT 95
[2020-12-07 09:00] VITALS: BP 114/71; BP 137/90; PULSE 47; RESP 16; O2SAT 95
[2020-12-07 09:05] VITALS: BP 114/75; BP 137/90; PULSE 47; RESP 16; TEMP 36.2; O2SAT 96
[2020-12-07 09:24] VITALS: BP 137/90
--- NOTE | 2020-12-07 15:35 | OP.PCM_ITS ---
Report of Operation Date of Procedure: 12/07/20 Description of Surgical Findings:: PROCEDURE: Right-sided radiofrequency ablation of the medial branch L5-S1, S2, S3 PREOPERATIVE DIAGNOSES: Lumbosacral spondylosis, lumbosacral degenerative disc disease, lumbar facet arthropathy, sacroiliitis POSTOPERATIVE DIAGNOSES: Lumbosacral spondylosis, lumbosacral degenerative disc disease, lumbar facet arthropathy, sacroiliitis ANESTHESIA: MAC COMPLICATIONS: None BLOOD LOSS: Minimal PROCEDURE IN DETAIL: History and physical today was reviewed. Risks and benefits of procedure explained. The patient understood, agreed to the procedure and informed consent was obtained. IV inserted per routine protocol. The patient was taken to the operating room, placed in the prone position with a pillow positioned underneath the abdomen. The right side of the lower back and buttock area was prepped and draped in a sterile fashion using iodine x 3. Under fluoroscopy guidance, on AP view, the L5 through S3 and sacroiliac joint were visualized. The skin and subcutaneous tissue was anesthetized with approximately 10 mL of 1% lidocaine using a 25-gauge regular needle. Under direct visualization with fluoroscopy at approximately 15-degree angle, starting on the right L5, ending on the right S3, passing through the S1, S2 lateral branch. Using a 22-gauge 10 cm with a 10 mm curved active tip radiofrequency ablation needle, the needle passed through the skin. The tip of the needle was maneuvered and directed towards the superior and medial gutter of the transverse process at the vicinity of the medial branch. The second needle was then maneuvered and directed towards the sacral ala and the third and fourth needle were then directed towards the medial border of the sacroiliac joint at the S2, S3 area. Once the tip of the needle was at the vicinity of the medial branch/lateral branch, the needle pulled ap proximately 2 mm up the bone. The stylet of each needle was then removed. The radiofrequency ablation probe was then inserted at each level. After confirmation of AP, oblique as well as lateral view, impedance was then recorded at L5 to be 232, at S1 217, at S2 250, at S3 227 ohm. Motor-evoked potential was then initiated to 1.5 volt without any motor response at each corresponding level. The probe was then removed intact and a total of 6 mL of preservative-free 1% lidocaine was injected in divided doses between those 4 levels after negative aspiration of blood with CSF. The radiofrequency ablation probe was then reinserted after confirmation of AP, oblique as well as lateral view. Radiofrequency ablation was then initiated to 80 degrees Celsius for 90 seconds at each level. Once concluded, the probe was then removed intact and a total of 6 mL of preservative-free 0.25% Marcaine with 40 mg Depo-Medrol was injected in divided doses between those 4 levels. The needles were then removed intact. The patient experienced no signs or symptoms of intrathecal, intravascular injection. The patient experienced no paraesthesia. The procedure was completed without any apparent difficulty, any complication. The patient appeared to tolerate well. Sensory as well as motor exam was unchanged from prior to procedure. ASSESSMENT AND PLAN: This is a 60-year-old Male withLumbosacral spondylosis, lumbosacral degenerative disc disease, lumbar facet arthropathy, sacroiliitis , status post right-sided radiofrequency ablation of the medial branch L5 through S3. The patient will continue his current medications. The patient will follow up in approximately 2 weeks for reevaluation.
== END 2020-12-07 09:53 | disposition home or self-care (01) ==
LOC: SDC 07:25 → AC 07:26
PROVIDERS: PCP Family Medicine; Referring Provider Anesthesiology Pain Medicine; Visit Provider Anesthesiology Pain Medicine
PROC: (CPT 64635; principal; 2020-12-07 09:25)
DX: M47.817 Spondylosis without myelopathy or radiculopathy, lumbosacral region (principal); M51.37 Other intervertebral disc degeneration, lumbosacral region; M46.96 Unspecified inflammatory spondylopathy, lumbar region; M46.1 Sacroiliitis, not elsewhere classified; G89.29 Other chronic pain; I25.10 Atherosclerotic heart disease of native coronary artery without angina pectoris; I11.0 Hypertensive heart disease with heart failure; I50.33 Acute on chronic diastolic (congestive) heart failure; I48.0 Paroxysmal atrial fibrillation; I48.92 Unspecified atrial flutter; J44.9 Chronic obstructive pulmonary disease, unspecified; F17.210 Nicotine dependence, cigarettes, uncomplicated; E66.01 Morbid (severe) obesity due to excess calories; Z68.42 Body mass index [BMI] 45.0-49.9, adult; Z79.01 Long term (current) use of anticoagulants; Z79.891 Long term (current) use of opiate analgesic; Z79.899 Other long term (current) drug therapy
CPT/HCPCS: 01992; 64635; 64636 ×2; 36416; 72220; 76000; 85610; J7120

== ENCOUNTER 2021-06-07 07:41 | Day surgery (SDC) | payer OTHER, SELFPAY ==
[2019-07-19 12:16] VITALS: BMI 49.4
[2021-06-07 08:12] VITALS: BP 127/75; PULSE 54; RESP 16; TEMP 36.5; O2SAT 95; BMI 49.6
[2021-06-07] MEDS: Lactated Ringers 1,000 ML 15 ML IV (08:32)
[2021-06-07] MEDS: MethylPREDNISolone Acetate 80 MG/ML Vial (09:12)
[2021-06-07] MEDS: 0.9% Normal Saline (Pres. free 10 ML Vial (09:12)
[2021-06-07] MEDS: Lidocaine 1% (5 ml sdv) 5 ML Vial (09:12)
[2021-06-07] MEDS: Bupivacaine 0.25% 30 ML Vial (09:12)
--- NOTE | 2021-06-07 09:12 | RAD_ITS ---
PROCEDURE: Caudal epidural. DATE OF EXAMINATION: 06/07/2021. INDICATION: Male, 60 years old. Chronic low back pain. FLUOROSCOPY TIME (if supplied): (20 seconds) minutes/seconds. 2 images were submitted. RAD/Fluor Guidance for Spine Inj IMPRESSION: Intraoperative imaging provided for caudal block. Electronically Signed: Celestine Reynolds MD at 14:01 EDT ,
[2021-06-07 09:25] VITALS: BP 118/48; BP 127/75; PULSE 66; RESP 16; TEMP 36.9; O2SAT 100
[2021-06-07 09:32] VITALS: BP 106/86; BP 127/75; PULSE 65; RESP 16; O2SAT 99
[2021-06-07 09:37] VITALS: BP 110/52; BP 127/75; PULSE 60; RESP 16; O2SAT 97
[2021-06-07 09:39] VITALS: BP 113/65; BP 127/75; PULSE 62; RESP 16; TEMP 37.2; O2SAT 100
[2021-06-07 10:01] VITALS: BP 127/75
[2021-06-07 14:46] LABS: INR Fingerstick 1.1; Prothrombin Time Fingerstick 13.9 SEC (11.7-14.9)
--- NOTE | 2021-06-07 16:05 | OP.PCM_ITS ---
Report of Operation Date of Procedure: 06/07/21 Pre-Operative Diagnosis: Lumbosacral radiculopathy, lumbosacral degenerative di sc disease, lumbosacral spinal stenosis Post-Operative Diagnosis: Lumbosacral radiculopathy, lumbosacral degenerative disc disease, lumbosacral spinal stenosis Surgery/Procedure Performed:: Caudal epidural steroid injection under fluoroscopic guidance Type of Anesthesia: MAC Estimated Blood Loss (mL): Minimal Description of Procedure: DESCRIPTION OF PROCEDURE: History and physical of today was reviewed. Risks and benefits of the procedure were explained. The patient understood and agreed to proceed. Informed consent was obtained. IV inserted per routine protocol. The patient was taken to the operating room and placed in the prone position with a pillow positioned underneath the abdomen. The lower back and tailbone area was prepped and draped in a sterile fashion using iodine x3. Under fluoroscopy guidance on a lateral view, the caudal space was identified. The skin and subcutaneous tissue was anesthetized with approximately 3 mL of 1% lidocaine using a 25-gauge regular needle. Under direct visualization with fluoroscopy, using a 22-gauge 3-1/2-inch spinal needle, the needle was advanced via the skin through the sacral hiatus. The tip of the needle was passed through the sacrococcygeal ligament and advanced to approximately S4 area. After negative aspiration of blood or CSF, a total of 3 mL of contrast was injected to confirm correct placement of the needle as well as cephalad spread. The spread was followed to approximately L5 area. After confirmation on AP as well as lateral view and repeated negative aspiration, a total of 15 mL of preservative-free 0.125% Marcaine with 80 mg of Depo-Medrol was injected easily. The needle was then removed intact. The patient experienced no sign or symptoms of intrathecal or intravascular injection. The patient experienced no paresthesia. The procedure was completed without any apparent difficulty or any complications. The patient appeared to tolerate it well. ASSESSMENT AND PLAN: This is a 60-year-old male with lumbosacral radiculopathy, lumbosacral degenerative disc disease, lumbosacral spinal stenosis status post caudal epidural steroid injection, patient will continue his current medications, patient will follow in approximately 2 weeks for reevaluation. Complications None
== END 2021-06-07 23:59 | disposition home or self-care (01) ==
LOC: SDC 07:43 → AC 07:44
PROVIDERS: PCP Family Medicine; Referring Provider Anesthesiology Pain Medicine; Visit Provider Anesthesiology Pain Medicine
PROC: 3E0S3BZ Introduction of Anesthetic Agent into Epidural Space, Percutaneous Approach (ICD-10-PCS; CPT 62282; principal; 2021-06-07 09:05)
DX: M51.17 Intervertebral disc disorders with radiculopathy, lumbosacral region (principal); M46.96 Unspecified inflammatory spondylopathy, lumbar region; J44.9 Chronic obstructive pulmonary disease, unspecified; I50.33 Acute on chronic diastolic (congestive) heart failure; I11.0 Hypertensive heart disease with heart failure; I48.0 Paroxysmal atrial fibrillation; I48.92 Unspecified atrial flutter; E66.01 Morbid (severe) obesity due to excess calories; Z68.42 Body mass index [BMI] 45.0-49.9, adult; I25.10 Atherosclerotic heart disease of native coronary artery without angina pectoris; E78.00 Pure hypercholesterolemia, unspecified; M48.07 Spinal stenosis, lumbosacral region; I25.2 Old myocardial infarction; F17.210 Nicotine dependence, cigarettes, uncomplicated; M96.1 Postlaminectomy syndrome, not elsewhere classified; Z79.01 Long term (current) use of anticoagulants; Z79.82 Long term (current) use of aspirin; Z79.891 Long term (current) use of opiate analgesic; Z79.899 Other long term (current) drug therapy; Z86.74 Personal history of sudden cardiac arrest; Z86.718 Personal history of other venous thrombosis and embolism
CPT/HCPCS: 62323; 01992; 36416; 64483; 77003; 85610; J7120; J3490

== ENCOUNTER 2021-07-19 06:31 | Day surgery (SDC) | payer OTHER, SELFPAY ==
[2019-07-19 12:16] VITALS: BMI 49.4
[2021-07-19 07:00] VITALS: BP 125/76; PULSE 59; RESP 20; TEMP 37.2; O2SAT 97; BMI 50.0
[2021-07-19] MEDS: Lactated Ringers 1,000 ML 15 ML IV (07:08)
[2021-07-19 07:35] LABS: Prothrombin Time Fingerstick 12.7 SEC (11.7-14.9)
--- NOTE | 2021-07-19 07:58 | RAD_ITS ---
STUDY: X-RAY - SACRUM/COCCYX REASON FOR EXAM: Male, 61 years old. RADIO FREQ ABLATION L5-S3,RIGHT TECHNIQUE: 6 intraoperative view(s) of the sacrum and coccyx were obtained. COMPARISON: None. FINDINGS: Intraoperative images demonstrate localization for radio frequency ablation on the right at L5-S1 levels. Surgical fusion of L4-S1. RAD/Sacrum-Coccyx min 2 Views IMPRESSION: Localizing images as noted. Electronically Signed: Quentin Machuca DO at 11:18 EDT ,
[2021-07-19] MEDS: Lidocaine 1% (20 ml mdv) 20 ML Vial (08:09)
[2021-07-19] MEDS: 0.9% Normal Saline (Pres. free 10 ML Vial (08:10)
[2021-07-19] MEDS: MethylPREDNISolone Acetate 40 MG/ML Vial IM (08:10)
[2021-07-19 08:24] VITALS: BP 125/76; BP 126/73; PULSE 61; RESP 16; TEMP 36.6; O2SAT 100
[2021-07-19 08:30] VITALS: BP 125/76; BP 126/71; PULSE 60; RESP 16; O2SAT 100
[2021-07-19 08:35] VITALS: BP 118/72; BP 125/76; PULSE 56; RESP 16; O2SAT 99
[2021-07-19 08:40] VITALS: BP 111/72; BP 125/76; PULSE 64; RESP 16; TEMP 36.5; O2SAT 99
[2021-07-19 09:08] VITALS: BP 125/76
--- NOTE | 2021-07-19 10:14 | PCM.OPRPT ---
Report of Operation Date of Procedure: 07/19/21 Description of Surgical Findings:: Right-sided radiofrequency ablation of the medial/ lateral branch L5-S1, S2, S3 PREOPERATIVE DIAGNOSES: Lumbosacral spondylosis, lumbosacral degenerative disc disease, lumbar facet arthropathy, sacroiliitis POSTOPERATIVE DIAGNOSES: Lumbosacral spondylosis, lumbosacral degenerative disc disease, lumbar facet arthropathy, sacroiliitis ANESTHESIA: MAC COMPLICATIONS: None BLOOD LOSS: Minimal PROCEDURE IN DETAIL: History and physical today was reviewed. Risks and benefits of procedure explained. The patient understood, agreed to the procedure and informed consent was obtained. IV inserted per routine protocol. The patient was taken to the operating room, placed in the prone position with a pillow positioned underneath the abdomen. The right side of the lower back and buttock area was prepped and draped in a sterile fashion using iodine x 3. Under fluoroscopy guidance, on AP view, the L5 through S3 and sacroiliac joint were visualized. The skin and subcutaneous tissue was anesthetized with approximately 10 mL of 1% lidocaine using a 25-gauge regular needle. Under direct visualization with fluoroscopy at approximately 15-degree angle, starting on the right L5, ending on the right S3, passing through the S1, S2 lateral branch. Using a 22-gauge 10 cm with a 10 mm curved active tip radiofrequency ablation needle, the needle passed through the skin. The tip of the needle was maneuvered and directed towards the superior and medial gutter of the transverse process at the vicinity of the medial branch. The second needle was then maneuvered and directed towards the sacral ala and the third and fourth needle were then directed towards the medial border of the sacroiliac joint at the S2, S3 area. Once the tip of the needle was at the vicinity of the medial branch/lateral branch, the needle pulled approximately 2 mm up the bone. The stylet of each needle was then removed. The radiofrequency ablation probe was then inserted at each level. After confirmation of AP, oblique as well as lateral view, impedance was then recorded at L5 to be 245, at S1 295, at S2 277, at S3 251 ohm. Motor-evoked potential was then initiated to 1.5 volt without any motor response at each corresponding level. The probe was then removed intact and a total of 6 mL of preservative-free 1% lidocaine was injected in divided doses between those 4 levels after negative aspiration of blood with CSF. The radiofrequency ablation probe was then reinserted after confirmation of AP, oblique as well as lateral view. Radiofrequency ablation was then initiated to 80 degrees Celsius for 90 seconds at each level. Once concluded, the probe was then removed intact and a total of 6 mL of preservative-free 0.25% Marcaine with 40 mg Depo-Medrol was injected in divided doses between those 4 levels. The needles were then removed intact. The patient experienced no signs or symptoms of intrathecal, intravascular injection. The patient experienced no paraesthesia. The procedure was completed without any apparent difficulty, any complication. The patient appeared to tolerate well. Sensory as well as motor exam was unchanged from prior to procedure. ASSESSMENT AND PLAN: This is a 61-year-old Male with Lumbosacral spondylosis, lumbosacral degenerative disc disease, lumbar facet arthropathy, sacroiliitis , status post right-sided radiofrequency ablation of the medial/ lateral branch L5 through S3. The patient will continue his current medications. The patient will follow up in approximately 2 weeks for reevaluation.
== END 2021-07-19 09:24 | disposition home or self-care (01) ==
LOC: SDC 06:32 → AC 06:33
PROVIDERS: PCP Family Medicine; Visit Provider Anesthesiology Pain Medicine
PROC: (CPT 64635; principal; 2021-07-19 08:00)
DX: M47.817 Spondylosis without myelopathy or radiculopathy, lumbosacral region (principal); M46.1 Sacroiliitis, not elsewhere classified; M46.96 Unspecified inflammatory spondylopathy, lumbar region; J44.9 Chronic obstructive pulmonary disease, unspecified; I11.0 Hypertensive heart disease with heart failure; I50.33 Acute on chronic diastolic (congestive) heart failure; I48.0 Paroxysmal atrial fibrillation; I48.92 Unspecified atrial flutter; E66.01 Morbid (severe) obesity due to excess calories; Z68.42 Body mass index [BMI] 45.0-49.9, adult; M51.37 Other intervertebral disc degeneration, lumbosacral region; I25.10 Atherosclerotic heart disease of native coronary artery without angina pectoris; E78.00 Pure hypercholesterolemia, unspecified; M19.90 Unspecified osteoarthritis, unspecified site; G47.33 Obstructive sleep apnea (adult) (pediatric); F17.210 Nicotine dependence, cigarettes, uncomplicated; Z79.01 Long term (current) use of anticoagulants; Z79.82 Long term (current) use of aspirin; Z79.891 Long term (current) use of opiate analgesic; Z79.899 Other long term (current) drug therapy; Z86.74 Personal history of sudden cardiac arrest; Z86.718 Personal history of other venous thrombosis and embolism
CPT/HCPCS: 64635; 01992; 36416; 72220; 76000; 85610; J7120; J3490

== ENCOUNTER 2021-09-06 08:58 | Day surgery (SDC) | payer OTHER, SELFPAY ==
[2019-07-19 12:16] VITALS: BMI 49.4
[2021-09-06 09:59] VITALS: BP 125/76; PULSE 49; RESP 18; TEMP 36.7; O2SAT 98; BMI 50.4
[2021-09-06] MEDS: Lactated Ringers 1,000 ML 15 ML IV (10:07)
--- NOTE | 2021-09-06 10:27 | RAD_ITS ---
PROCEDURE: Fluoroscopic guided radiofrequency ablation. DATE OF EXAMINATION: 09/06/2021 INDICATION: Female, 71 years old. Radiofrequency ablation FLUOROSCOPY TIME (if supplied): 48 seconds. fluoroscopic spot images submitted for interpretation. FINDINGS/ RAD/Lumbar Spine 2 or 3 Views IMPRESSION: Assessment limited by fluoroscopic technique and limited views submitted. Stable lumbosacral fusion hardware. Needle ablation devices are placed in the lower lumbosacral spine. Please see intraoperative findings for further details. Electronically Signed: Prashanth Duong, at 16:08 EDT ,
[2021-09-06] MEDS: 0.9% Normal Saline (Pres. free 10 ML Vial (10:37)
[2021-09-06] MEDS: Lidocaine 1% (5 ml sdv) 5 ML Vial (10:37)
[2021-09-06] MEDS: Bupivacaine Mpf 0.5% 30 ML VIAL (10:37)
[2021-09-06] MEDS: MethylPREDNISolone Acetate 40 MG/ML Vial IM (10:37)
[2021-09-06 10:59] VITALS: BP 125/76; BP 161/61; PULSE 61; RESP 18; TEMP 37.2; O2SAT 97
[2021-09-06 11:05] VITALS: BP 125/76; BP 151/86; PULSE 55; RESP 20; O2SAT 95
[2021-09-06 11:10] VITALS: BP 125/76; BP 157/82; PULSE 55; RESP 18; O2SAT 96
[2021-09-06 11:28] VITALS: BP 125/76; BP 159/80; PULSE 53; RESP 16; TEMP 36.9; O2SAT 97
[2021-09-06 11:44] VITALS: BP 125/76
[2021-09-06 12:21] LABS: INR Fingerstick 1.2; Prothrombin Time Fingerstick 14.7 SEC (11.7-14.9)
--- NOTE | 2021-09-06 15:36 | PCM.OPRPT ---
Report of Operation Date of Procedure: 09/06/21 Pre-Operative Diagnosis: Lumbosacral spondylosis, lumbosacral degenerative disc disease, lumbar facet arthropathy Post-Operative Diagnosis: Lumbosacral spondylosis, lumbosacral degenerative disc disease, lumbar facet arthropathy Surgery/Procedure Performed:: Right-sided lumbar radiofrequency ablation of the medial branch L4, L5, S1 Type of Anesthesia: MAC Estimated Blood Loss (mL): Minimal Description of Procedure: History and physical today was reviewed. Risks and benefits of procedure explained. The patient understood, agreed to the procedure and informed consent was obtained. IV inserted per routine protocol. The patient was taken to the operating room, placed in the prone position with a pillow positioned underneath the abdomen. The right side of the lower back was prepped and draped in a sterile fashion using iodine x 3. Under fluoroscopy guidance, on an oblique view, the L3 through S1 vertebral bodies were visualized. The skin and subcutaneous tissue was anesthetized with approximately 10 mL of 1% lidocaine using a 25-gauge regular needle. Under direct visualization with fluoroscopy at approximately 25-degree angle, starting on the right L3, ending on the right S1 passing through the L4-L5 using a 20-gauge 15 cm with a 10 mm curved active tip radiofrequency ablation needle the needle passed through the skin. The tip of the needle was maneuvered and directed towards the superior and medial gutter of the transverse process at the vicinity of the medial branch. Once the tip of the needle was in contact with the bone, the needle pulled approximately 2 mm up the bone. The stylet of each needle was then removed. After negative aspiration of blood with CSF and confirmation of AP as well as oblique view, radiofrequency ablation probe was then inserted at each level. Impedance was then recorded at L3 to be 258, at L4 218, at L5 233, at S1 270 ohm. Motor-evoked potential was then initiated to 1.5 volt without any motor response at each corresponding level. The probe was then removed intact and a total of 6 mL preservative-free 1% lidocaine was injected in divided doses between those 4 levels after negative aspiration of blood with CSF. The radiofrequency ablation probe was then reinserted after confirmation of AP, oblique as well as lateral view. Radiofrequency ablation was then initiated to 80 degrees Celsius for 90 seconds at each level. Once concluded, the probe was then removed intact and a total of 6 mL of preservative-free 0.25% Marcaine with 40 mg Depo-Medrol was injected in divided doses between those 4 levels. The needles were then removed intact. The patient experienced no signs or symptoms of intrathecal, intravascular injection. The patient experienced no paraesthesia. The procedure was completed without any apparent difficulty, any complication. The patient appeared to tolerate well. Sensory as well as motor exam was unchanged from prior to procedure. ASSESSMENT AND PLAN: This is a 61-year-old male with lumbosacral spondylosis, lumbosacral degenerative disc disease, lumbar facet arthropathy, status post right-sided radiofrequency ablation of the medial branch L3 through S1. The patient will continue his current medications. The patient will follow up in approximately 2 weeks for reevaluation. Complications None
== END 2021-09-06 12:04 | disposition home or self-care (01) ==
LOC: SDC 09:03 → AC 09:23
PROVIDERS: Referring Provider Anesthesiology Pain Medicine; Visit Provider Anesthesiology Pain Medicine
PROC: (CPT 64635; principal; 2021-09-06 10:35)
DX: M47.817 Spondylosis without myelopathy or radiculopathy, lumbosacral region (principal); M46.96 Unspecified inflammatory spondylopathy, lumbar region; I11.0 Hypertensive heart disease with heart failure; I50.9 Heart failure, unspecified; E66.01 Morbid (severe) obesity due to excess calories; Z68.43 Body mass index [BMI] 50.0-59.9, adult; I25.10 Atherosclerotic heart disease of native coronary artery without angina pectoris; M51.37 Other intervertebral disc degeneration, lumbosacral region; F17.200 Nicotine dependence, unspecified, uncomplicated; Z79.899 Other long term (current) drug therapy
CPT/HCPCS: 64635; 01992; 36416; 72100; 76000; 85610; J7120; J3490

== ENCOUNTER 2021-11-23 13:49 | Outpatient (RCR) | payer OTHER, SELFPAY ==
[2019-07-19 12:16] VITALS: BMI 49.4
--- NOTE | 2021-11-23 15:27 | HP.PTEVAL_ITS ---
Patient's Visit Information ARELI CARY Jr. is a 61 year old M referred to Physical Therapy by LILLIE Segovia with a diagnosis of LBP. Date of Evaluation: 11/23/21 Physical Therapist: Aguilar Keller, PT, ATC - Visit Plan Frequency: 1x/Week Duration: 1 Week Plan: Issue and instruct pt on HEP of L/S stab ex's and stretching - Subjective Pt reports he has had intermittent LBP for approximately 8 years. Pt reports he has had injections in his LB and nerve ablasions, which has helped temporarily. Pt reports he knows he needs to have surgery in the future but is trying to put it off as long as he can. Pt reports his pain is ok in the morning, but gets really bad as the day progresses. Pt reports he has pain that radiates into the R lateral hip. Pt reports prolonged walking and standing increases his pain. Pt notes he still does all of his house chores at home, but is very limited secondary to pain. Pt reports his major goal is to be able to get a HEP to perform on his own in an attempt to control some of his pain. LBP is currently 8/10, but notes it increases to 10/10 at worst. - Pain LBP Pain Intensity (Out of 10): 8 Pain Intensity Range: 10 - Objective Neuro: B LE sensation is WNL to light touch. B Patellar reflex= 2/3. ROM: Pt is moderately limited in all planes of motion. MMT: B LE's are grossly 4+/5 thro ughout. Special tests: Unable to perform tests secondary to severe pain in LB - Balance/Special Test Scores Oswestry Low Back Score: 24 - Goals Goal 1:: I with HEP in 1 visit Goal Time Frame: 1 Week - Rehabilitation Potential Physical Therapy Diagnosis: Pt has R LE radiculopathy, LBP, and limited L/S ROM secondary to degenerative changes in L/S Rehabilitation Potential: Fair - Anticipated Interventions Patient/Client Instruction: Educate patient on: Condition, Plan of Care For the Purpose of:: To improve self management Therapeutic Exercise to Include: Strength training, Flexibilty training, Dynamic Lumbar Stabilization For the Purpose of:: To decrease pain, To increase ROM, To improve muscle performance and motor function Cryotherapy (ice pack, ice massage): Yes Thermo therapy (hot pack): Yes Ultrasound (thermal/non thermal): Yes For the Purpose of:: To decrease pain Thank you for the opportunity to evaluate your patient. For Medicare and Medicare HMO plans, please review the plan of care and approve it. It will need to be FAXED BACK to us at [phone] for Medicare purposes. For Medicare only, by signing this I certify the plan of care. Please let me know if there are questions or concerns regarding this plan of care. Physician Signature: Date:
== END 2021-11-23 19:00 | disposition home or self-care (01) ==
LOC: PT 13:49
PROVIDERS: Referring Provider Nurse Practitioner Family; Visit Provider Nurse Practitioner Family
DX: M96.1 Postlaminectomy syndrome, not elsewhere classified (principal); M51.17 Intervertebral disc disorders with radiculopathy, lumbosacral region; M16.11 Unilateral primary osteoarthritis, right hip; M46.1 Sacroiliitis, not elsewhere classified; M47.27 Other spondylosis with radiculopathy, lumbosacral region; M46.96 Unspecified inflammatory spondylopathy, lumbar region; M53.3 Sacrococcygeal disorders, not elsewhere classified
CPT/HCPCS: 97161

== ENCOUNTER 2021-12-01 12:07 | Observation (INO) | payer OTHER, SELFPAY ==
[2019-07-19 12:16] VITALS: BMI 49.4
[2021-12-01] VITALS (11 sets, daily range): BP systolic 138–188; BP diastolic 81–112; PULSE 57–83; RESP 14–18; TEMP 36.5–37.3; O2SAT 93–100; BMI 47.2; BMI 46.3
--- NOTE | 2021-12-01 13:11 | EDS_ITS ---
HPI History of Present Illness Chief Complaint: Other, Pain/Inj Informant: patient Narrative Narrative: Patient states that his knees on the right started hurting him about a week and a half ago. He had a little swelling. But it was getting better. Swelling was going down and the pain was getting better. He then started get pain in the right first MTP joint. Then today he stepped down off the truck. He got sharp pain in his foot. This caused him to fall and now he has increased pain in the right knee. He has some sensation of numbness and tingling in the lower leg of the right leg. He has a history of back pain but is not having that now. He has no bowel bladder dysfunction. No headache or other neurologic complaints. He is on Coumadin for history of atrial fibrillation and flutter. He denies a known history of gout. [facility] Medical History Ambulates with cane Arthritis Atherosclerosis of coronary artery of [place] heart without angina pectoris Cardiac dysrhythmia Cardiopulmonary arrest (08/20/18) Chronic pain COPD (chronic obstructive pulmonary disease) Degeneration of intervertebral disc of lumbosacral region Diastolic congestive heart failure Diastolic dysfunction with acute on chronic heart failure Essential (primary) hypertension Failed back syndrome of lumbar spine High cholesterol History of Walker's palsy History of deep vein thrombosis (DVT) of lower extremity History of edema History of non-ST elevation myocardial infarction (NSTEMI) (03/03/19) History of steroid therapy Morbid obesity Nicotine dependence Nicotine vapor product user Obstructive sleep apnea Paroxysmal atrial fibrillation Paroxysmal atrial flutter Sacrococcygeal disorders, not elsewhere classified Sacroiliitis, not elsewhere classified Shortness of breath on exertion Wears glasses Home Medications lisinopril 40 mg tablet 40 mg PO BID blood pressure 04/04/13 [History Last Taken 09/06/21 07:30] fluticasone propionate 50 mcg/actuation nasal spray,suspension 1 spray NASAL DAILY PRN PRN Allergies 09/27/18 [History Last Taken 07/18/21] sotalol 80 mg tablet 80 mg PO BID bp,heart 09/27/18 [History Last Taken 09/06/21 07:30] furosemide 40 mg tablet 40 mg PO BID #60 tabs 09/28/18 [Rx Last Taken 07/18/21] potassium chloride 10 mEq tablet,extended release 20 meq PO DAILY ##60 09/28/18 [Rx Last Taken 07/18/21] amlodipine 10 mg tablet 5 mg PO DAILY 01/30/19 [History Last Taken 09/06/21 07:30] hydrocodone 7.5 mg-acetaminophen 325 mg tablet 1 ea PO 4X/DAY PRN PRN Pain Or Fever 03/03/19 [History Last Taken 07/18/21] aspirin 81 mg tablet,delayed release 81 mg PO DAILY@0800 03/05/19 [Rx Last Taken 07/19/21] atorvastatin 80 mg tablet 80 mg PO QHS #30 tabs 03/05/19 [Rx Last Taken 07/18/21] albuterol sulfate 90 mcg/actuation aerosol inhaler 1 - 2 puff inhalation Q4H PRN PRN Asthma 02/19/20 [History Last Taken 07/18/21] carvedilol 6.25 mg tablet 6.25 mg PO BID heart 02/19/20 [History Last Taken 09/06/21 07:30] hydralazine 25 mg tablet 25 mg PO BID bp 02/19/20 [History Last Taken 07/18/21] warfarin 4 mg tablet 6 mg PO DAILY 12/01/21 [History Last Taken Unknown] Allergy/AdvReac Type Severity Reaction Status Date / Time Penicillins Allergy Hives Verified 12/01/21 12:14 pregabalin [From Lyrica] Allergy Hives Verified 12/01/21 12:14 red dye Allergy Angioedema Verified 12/01/21 12:14 Family History Mother CVA (cerebral vascular accident) Surgical History History of back surgery History of coronary artery stent placement (03/03/19) History of total hip arthroplasty History of total knee arthroplasty Social History Smoking Status: Current every day smoker tobacco type: cigarettes and e- cigarettes ROS ROS ED Constitutional Constitutional ED: Denies chills, fever(s) or sweats Eyes Eyes: Denies change in vision ENT ENT ED: Denies rhinorrhea or sore throat Cardiovascular Cardiovascular: Denies chest pain, palpitations or racing heartbeat Respiratory/Chest Respiratory/Chest: Denies cough or dyspnea Gastrointestinal Gastrointestinal: Denies abdominal pain, nausea or vomiting Genitourinary Genitourinary ED: Denies dysuria or hematuria Musculoskeletal Musculoskeletal: Reports arthralgias and other Details: See history of present illness Integumentary Denies Abrasions or rash Neurologic Neurologic: Reports paresthesias; Denies headache(s) or weakness Endocrine Endocrinology: Denies polydipsia or polyuria Hematologic/Lymphatic Hematologic/Lymphatic: Denies easy bleeding or easy bruising Allergic/Immunologic Allergic/Immunologic ED: Denies urticaria EXAM Physical Exam Const Vital Signs: 12/01/21 12:09 12/01/21 12:12 12/01/21 14:19 Temperature 97.7 F L 97.7 F L 98.8 F Temperature Source Oral Oral Oral Pulse Rate 66 67 57 L Respiratory Rate 18 18 16 Blood Pressure 148/112 H 148/112 H 157/91 H Blood Pressure Mean 124 124 113 Pulse Ox 100 99 96 Oxygen Delivery Method Room Air Room Air Room Air 12/01/21 15:27 12/01/21 16:04 Temperature 99.2 F H Temperature Source Oral Pulse Rate 68 66 Respiratory Rate 16 14 Blood Pressure 180/95 H 174/89 H Blood Pressure Mean 123 117 Pulse Ox 95 99 Oxygen Delivery Method Room Air Room Air Positive well nourished, well developed and obese Constitutional Narrative: Patient sitting quietly in bed. He would like a urinal so he can go to the bathroom. General Appearance ED: well developed and NAD; Negative for cyanotic or diaphoretic Nutritional Appearance: obese HEENT Reports moist mucous membranes Eyes General Eye ED: Negative for scleral icterus Neck no lymphadenopathy Chest Wall inspection of chest normal Resp normal respiratory effort and clear to auscultation bilaterally Cardio regular rate and regular rhythm GI normal to inspection, nondistended, normoactive bowel sounds and non-tender GI Narrative: Obese but nontender. Extremity Extremity Narrative: There is some slight swelling of his right knee. There is also some mild diffuse swelling of the calf area. There is diffuse tenderness around the knee. No obvious tenderness along the tibial anterior ridge. Ankle is not tender. He has focal pain right at the right first MTP joint. He has some swelling diffusely so it is hard to say if this is more acute in that area. I see no definitive erythema. No noted warmth. No rashes. Neuro oriented x3 Neuro Narrative: Sensation and motor seems to be intact and normal in the right lower extremity and equal to the left Psych mental status grossly normal Skin no rashes or lesions noted MDM MDM MDM Narrative Medical decision making narrative: Since labs show elevated hemoglobin and white count. These are mild elevations. INR was only 1.1. Potassium is mildly high. But his renal function is essentially normal. Uric acid was elevated. X-rays of his knee and foot show no acute process. Since his INR was not therapeutic, I have ordered duplex ultrasound of the leg. For completeness I will also get tib-fib x-rays. His ultrasound has come back as no DVT. His lungs I can get his pain to the point where he can ambulate I think we can get him home. He was given colchicine along with morphine. He will be rechecked. X-ray shows no acute fracture. Ultrasound is negative for DVT. Patient states he can now move his toe [id number] 1 before it hurt too much. It is still painful. We have given him 2 doses of morphine, prednisone and colchicine. Hydralazine helped his blood pressure a bit. We tried to get him up to walk and he just cannot put any weight on that right leg. He says it is mostly the toe that hurts. But his knee is still sore and that exacerbates it. This patient is not safe to go home at this time. He is very tall and he weighs about 360 p ounds. His cannot support him. I am calling to get him admitted. I think if we get his pain under control we should be able to get him home. I did mention to him that if we cannot get him better he might have to go to a rehab facility. He does not want to do that but he states he cannot go home when he cannot put weight on this. I have hospitalist on page Lab Data Attestation: I reviewed the patient's lab results. Labs: Laboratory Results - last 24 hr 12/01/21 12/01/21 12/01/21 14:05 14:05 14:05 WBC 11.2 H RBC 6.61 H Hgb 16.7 H Hct 52.9 MCV 80.0 MCH 25.3 L MCHC 31.6 L RDW Std Deviation 57.8 H RDW Coeff of Raheem 21.3 H Plt Count 185 MPV 11.5 Immature Gran % (Auto) 0.400 Neut % (Auto) 66.7 Lymph % (Auto) 15.0 L Grant % (Auto) 17.0 H Eos % (Auto) 0.3 Baso % (Auto) 0.6 Absolute Neuts (auto) 7.5 Absolute Lymphs (auto) 1.68 Nucleated RBC % 0 Differential Comment Diff Path Review May foll Platelet Estimate ADEQUATE RBC Morphology N CHROM Anisocytosis 1+ PT 14.3 INR 1.1 Sodium 137 Potassium 5.4 H Chloride 102 Carbon Dioxide 25.0 Anion Gap 10 BUN 17 Creatinine 1.21 Estim Creat Clear Calc 71.54 Est GFR (MDRD) Af Amer 78 Est GFR (MDRD) Non-Af 65 BUN/Creatinine Ratio 14.0 Glucose 88 Uric Acid 9.3 H Calcium 9.0 Radiography Diagnostic Testing: Clinical Impression(s) from Imaging Studies Foot X-Ray 12/01/21 14:26 IMPRESSION: Calcaneal spurs. Electronically Signed: Celestine Reynolds MD at 15:02 EDT , Knee X-Ray 12/01/21 14:26 IMPRESSION: Degenerative arthrosis. Joint effusion. Electronically Signed: Celestine Reynolds MD at 15:01 EDT , Tibia/Fibula X-Ray 12/01/21 16:10 IMPRESSION: 1. Degenerative findings of the knee. 2. Soft tissue swelling around the ankle. Electronically Signed: Aguilar Babin MD at 16:24 EDT , Discharge Plan Dx/Rx/DC Orders Clinical Impression: Acute gout, Inability to ambulate due to multiple joints Disposition Disposition: Acute Care [facility]
[2021-12-01] MEDS: hydrALAZINE 25 MG Tablet PO ×2 (13:59→20:44)
[2021-12-01 14:15] LABS: Absolute Lymphocyte Count 1.68 X10^3/uL (0.83-4.51); Absolute Neutrophil Count 7.5 X10^3/uL (2.0-7.7); Basophil# 0.07 X10^3/uL; Basophil% 0.6 % (0-1); Eosinophil# 0.03 X10^3/uL; Eosinophils% 0.3 % (0-5); Hematocrit 52.9 % (40-54); Hemoglobin 16.7 g/dL (13.0-16.5); Lymphocyte # 1.68 X10^3/ul (0.83-4.51); Mean Corp Hgb Conc 31.6 g/dL (32-36); Mean Corpuscular Hgb 25.3 pg (27.0-32.0); Mean Platelet Vol. 11.5 fl (6.2-12.0); Monocyte# 1.91 X10^3/uL; NRBC Flagged by Analyzer 0 % (0-5); Neutrophil % 66.7 % (47-70); POSITIVE DIFFERENTIAL YES; POSITIVE MORPHOLOGY YES; Platelet Count 185 K/mm3 (150-450); RBC Distribution Width CV 21.3 % (11.6-14.6); RBC Distribution Width SD 57.8 fl (35.1-43.9); Red Blood Count 6.61 M/mm3 (4.6-6.2); White Blood Count 11.2 K/mm3 (4.4-11.0)
[2021-12-01 14:17] LABS: Differential Indicated SCAN CRITERIA MET
[2021-12-01 14:22] LABS: International Normalized Ratio 1.1; Prothrombin Time (Protime)PT. 14.3 SECONDS (11.7-14.9)
--- NOTE | 2021-12-01 14:26 | RAD_ITS ---
STUDY: X-RAY - RIGHT KNEE REASON FOR EXAM: Male, 61 years old. Pain. No known injury. TECHNIQUE: 3 view(s) of the knee. COMPARISON: None. FINDINGS: Normal visualized distal femur. Normal visualized proximal tibia and fibula. Normal proximal tibiofibular articulation. There is severe degenerative arthrosis of the medial femorotibial compartment with severe joint space narrowing. There is moderate degenerative arthrosis of the lateral femorotibial compartment with moderate joint space narrowing. There is mild degenerative arthrosis of the patellofemoral articulation. Joint effusion. RAD/Knee 3 Views IMPRESSION: Degenerative arthrosis. Joint effusion. Electronically Signed: Celestine Reynolds MD at 15:01 EDT ,
--- NOTE | 2021-12-01 14:26 | RAD_ITS ---
STUDY: X-RAY - RIGHT FOOT CLINICAL: Male, 61 years old. 1st MTP pain TECHNIQUE: 3 view(s) of the foot. COMPARISON: None. FINDINGS: Calcaneal spurs Normal visualized subtalar, talonavicular, calcaneocuboid, tarsal and tarsometatarsal articulations. Normal metatarsi. Normal metatarsophalangeal joint of the great toe. Normal tibial and fibular sesamoid bones. Normal interphalangeal joint of the great toe. Normal phalanges of the great toe. Normal second through fifth metatarsophalangeal joints. Normal interphalangeal joints and phalanges of the lesser toes. The soft tissue structures are unremarkable. RAD/Foot min 3 Views IMPRESSION: Calcaneal spurs. Electronically Signed: Celestine Reynolds MD at 15:02 EDT ,
[2021-12-01 14:31] LABS: Anion Gap 10 (5-15); BUN 17 mg/dL (7-18); Chloride 102 mmol/L (98-107); Creatinine, Serum 1.21 mg/dL (0.70-1.30); EST Glomerular Filtration Rate 65 mL/min (>60); Est Glom Filt Rate - Afr Amer 78 mL/min (>60); Estimated Creatinine Clearance 71.54 ml/min; Glucose 88 mg/dL (74-106); Potassium 5.4 mmol/L (3.5-5.1); Sodium Level 137 mmol/L (136-145); Uric Acid 9.3 mg/dL (3.5-7.2)
[2021-12-01 14:44] LABS: Anisocytosis 1+; Platelet Estimate ADEQUATE (ADEQ); Red Cell Morphology N CHROM NORMAL (NORM C&C)
--- NOTE | 2021-12-01 15:21 | VDLE_ITS ---
Reason For Study: Swelling RIGHT GSV is normal. CFV is compressible, spontaneous, phasic, competent and demonstrates normal augmentation. FV is compressible, spontaneous, phasic, competent and demonstrates normal augmentation. POP V is compressible, spontaneous, phasic, competent and demonstrates normal augmentation. T/P Trunk is compressible. PTV is compressible. RT PerV is compressible. Procedure This is a venous duplex using B-mode, color flow and spectral Doppler. Exam performed portable in ED. A preliminary report was called and/or faxed to ED. VL/Venous Duplex US, Unilateral Interpretation Summary There is no evidence of right lower extremity deep vein thrombosis. Right great saphenous vein appears patent and compressible segmentally. Ordering Physician: Memo Cardenas Referring Physician: Gagandeep Barclay Performed By: Celena Chung RVT
[2021-12-01] MEDS: Morphine 4 MG/ML Syringe IV ×2 (15:29→16:34)
[2021-12-01] MEDS: Colchicine 0.6 MG TABLET 1.2 MG PO (15:37)
--- NOTE | 2021-12-01 16:10 | RAD_ITS ---
EXAM: XR RIGHT TIBIA AND FIBULA, 2 VIEWS CLINICAL INDICATION: trauma, pain TECHNIQUE: Frontal and lateral views of the right tibia and fibula. This report was created using [employer] report generation technology. COMPARISON: None. FINDINGS: BONES/JOINTS: Degenerative findings of the knee. No acute fracture. No subluxation. Normal alignment. No sclerotic or destructive changes observed. SOFT TISSUES: Soft tissue swelling around the ankle. No radiopaque foreign body. RAD/Tibia & Fibula 2 Views IMPRESSION: 1. Degenerative findings of the knee. 2. Soft tissue swelling around the ankle. Electronically Signed: Aguilar Babin MD at 16:24 EDT ,
[2021-12-01] MEDS: predniSONE 20 MG Tablet 60 MG PO (16:34)
--- NOTE | 2021-12-01 17:09 | NURSING ---
DR MURRAY FOR DR FARFAN
--- NOTE | 2021-12-01 17:16 | NURSING ---
MED SURG OBS TERELETSKY GOUT, INABILITY TO AMBULATE
--- NOTE | 2021-12-01 17:46 | HP.PCM.HOS_ITS ---
Documented by User: Mary Taylor NP, [employer]IS COACH-C 12/01/21 18:06 HPI - General General Date of Admission: 12/01/21 Date of Service: 12/01/21 Chief Complaint: Right knee pain. HPI Narrative ARELI CARY, is a 61 M who presents to the emergency room due to right knee pain which began on Monday. He states his knee gave out on him however he did not fall. Since then he has had increased right knee pain and swelling which is now gone down his leg into his ankle/foot. He states he is unable to bear weight on his right knee. He denies fever, chills. Denies history of gout. Denies injury to right knee. He reports history of right knee replacement. Patient states he has been icing his right knee and keeping it elevated at home without improvement of symptoms. He has a past medical history of hypertension, hyperlipidemia, tobacco dependence, obesity, history of DVT/PE, paroxysmal atrial fibrillation, COPD, morbid obesity, CRISTELA, CAD with history of stent, chronic heart failure with preserved ejection fraction. FORMERLY [facility] Medical History Ambulates with cane Arthritis Atherosclerosis of coronary artery of rosebud heart without angina pectoris Cardiac dysrhythmia Cardiopulmonary arrest (08/20/18) Chronic pain COPD (chronic obstructive pulmonary disease) Degeneration of intervertebral disc of lumbosacral region Diastolic congestive heart failure Diastolic dysfunction with acute on chronic heart failure Essential (primary) hypertension Failed back syndrome of lumbar spine High cholesterol History of Walker's palsy History of deep vein thrombosis (DVT) of lower extremity History of edema History of non-ST elevation myocardial infarction (NSTEMI) (03/03/19) History of steroid therapy Morbid obesity Nicotine dependence Nicotine vapor product user Obstructive sleep apnea Paroxysmal atrial fibrillation Paroxysmal atrial flutter Sacrococcygeal disorders, not elsewhere classified Sacroiliitis, not elsewhere classified Shortness of breath on exertion Wears glasses Home Medications lisinopril 40 mg tablet 40 mg PO BID blood pressure 04/04/13 [History Last Taken 12/01/21] fluticasone propionate 50 mcg/actuation nasal spray,suspension 1 spray NASAL DAILY PRN PRN Allergies 09/27/18 [History Last Taken 1 Week Ago ~11/24/21] sotalol 80 mg tablet 80 mg PO BID bp,heart 09/27/18 [History Last Taken 12/01/21] furosemide 40 mg tablet 40 mg PO BID #60 tabs 09/28/18 [Rx Last Taken 12/01/21] aspirin 81 mg tablet,delayed release 81 mg PO DAILY@0800 03/05/19 [Rx Last Taken 12/01/21] atorvastatin 80 mg tablet 80 mg PO QHS #30 tabs 03/05/19 [Rx Last Taken 12/01/21] albuterol sulfate 90 mcg/actuation aerosol inhaler 1 - 2 puff inhalation Q4H PRN PRN Asthma 02/19/20 [History Last Taken 1 Week Ago ~11/24/21] carvedilol 6.25 mg tablet 6.25 mg PO BID heart 02/19/20 [History Last Taken 12/01/21] amlodipine 5 mg tablet 5 mg PO DAILY 12/01/21 [History Last Taken 12/01/21] cephalexin 500 mg capsule 500 mg PO BID PROPHYLACTIC 12/01/21 [History Last Taken 12/01/21] hydralazine 50 mg tablet 50 mg PO BID 12/01/21 [History Last Taken 12/01/21] hydrocodone 7.5 mg-acetaminophen 325 mg tablet 1 tab PO TID PRN Pain 12/01/21 [History Last Taken Unknown] naproxen sodium 220 mg tablet (Aleve) 440 mg PO DAILY 12/01/21 [History Last Taken 4 Days Ago ~11/27/21] potassium chloride 20 mEq tablet,extended release(part/cryst) (Klor-Con M) 20 meq PO DAILY 12/01/21 [History Last Taken 12/01/21] sildenafil (pulm.hypertension) 20 mg tablet 20 mg PO TID PRN HTN 12/01/21 [History Last Taken Unknown] trazodone 50 mg tablet 50 mg PO QHS PRN Sleep 12/01/21 [History Last Taken Unknown] warfarin 4 mg tablet 4 mg PO SUMOWETHSA 12/01/21 [History Last Taken 12/01/21] warfarin 4 mg tablet 6 mg PO TUFR 12/01/21 [History Last Taken 11/30/21] Allergy/AdvReac Type Severity Reaction Status Date / Time Penicillins Allergy Hives Verified 12/01/21 12:14 pregabalin [From Lyrica] Allergy Hives Verified 12/01/21 12:14 red dye Allergy Angioedema Verified 12/01/21 12:14 Family History (Updated 12/01/21 @ 17:53 by Mary Taylor NP, [employer]IS [employer]ACH-C) Mother CVA (cerebral vascular accident) Father , Murdered per patient No problems noted. Surgical History History of back surgery History of coronary artery stent placement (03/03/19) History of total hip arthroplasty History of total knee arthroplasty Social History (Updated 12/01/21 @ 17:53 by Mary Taylor NP, [employer]-C) household members: significant other Smoking Status: Current every day smoker tobacco type: cigarettes and e- cigarettes alcohol intake: never substance use type: does not use Vital Signs Vital Signs Vital Signs: 12/01/21 12:09 12/01/21 12:12 12/01/21 14:19 Temperature 97.7 F L 97.7 F L 98.8 F Temperature Source Oral Oral Oral Pulse Rate 66 67 57 L Respiratory Rate 18 18 16 Blood Pressure 148/112 H 148/112 H 157/91 H Blood Pressure Mean 124 124 113 Pulse Ox 100 99 96 Oxygen Delivery Method Room Air Room Air Room Air 12/01/21 15:27 12/01/21 16:04 Temperature 99.2 F H Temperature Source Oral Pulse Rate 68 66 Respiratory Rate 16 14 Blood Pressure 180/95 H 174/89 H Blood Pressure Mean 123 117 Pulse Ox 95 99 Oxygen Delivery Method Room Air Room Air Weight Weight: 358 lb 7.546 oz Body Mass Index (BMI) 47.2 Physical Exam Const alert and oriented x3 Nutritional Appearance: obese HEENT normocephalic and moist oral mucous membranes Eyes PERRL, EOMs intact bilaterally and conjunctivae normal Neck no lymphadenopathy Resp normal respiratory effort and clear to auscultation bilaterally Cardio regular rate, regular rhythm and no murmurs Peripheral Pulses: pulses 2+ throughout GI normal to inspection, nondistended, normoactive bowel sounds, non-tender and non-distended Extremity normal to inspection General Extremity: edema right lower extremity Skin no rashes or lesions noted Lesions: no lesions Rashes: no rashes Trauma: no lacerations or abrasions Neuro CN's II-XII intact bilaterally, no focal motor deficits, no sensory deficits noted and deep tendon reflexes 2+ bilaterally Psych mental status grossly normal and affect normal Results Lab / Micro Data Result Diagrams: 12/01/21 14:05 12/01/21 14:05 Labs: Laboratory Results - last 24 hr 12/01/21 14:05: WBC 11.2 H, RBC 6.61 H, Hgb 16.7 H, Hct 52.9, MCV 80.0, MCH 25.3 L, MCHC 31.6 L, RDW Std Deviation 57.8 H, RDW Coeff of Raheem 21.3 H, Plt Count 185, MPV 11.5, Immature Gran % (Auto) 0.400, Neut % (Auto) 66.7, Lymph % (Auto) 15.0 L, [place] % (Auto) 17.0 H, Eos % (Auto) 0.3, Baso % (Auto) 0.6, Absolute Neuts (auto) 7.5, Absolute Lymphs (auto) 1.68, Nucleated RBC % 0, Differential Comment , Diff Path Review May , Platelet Estimate ADEQUATE, RBC Morphology N CHROM, Anisocytosis 1+ 12/01/21 14:05: PT 14.3, INR 1.1 12/01/21 14:05: Sodium 137, Potassium 5.4 H, Chloride 102, Carbon Dioxide 25.0, Anion Gap 10, BUN 17, Creatinine 1.21, Estim Creat Clear Calc 71.54, Est GFR (MDRD) Af Amer 78, Est GFR (MDRD) Non-Af 65, BUN/Creatinine Ratio 14.0, Glucose 88, Uric Acid 9.3 H, Calcium 9.0 Radiology Impression Foot X-Ray 12/01/21 14:26 IMPRESSION: Calcaneal spurs. Electronically Signed: Celestine Reynolds MD at 15:02 EDT , Knee X-Ray 12/01/21 14:26 IMPRESSION: Degenerative arthrosis. Joint effusion. Electronically Signed: Celestine Reynolds MD at 15:01 EDT , Venous Doppler Study 12/01/21 15:21 Interpretation Summary There is no evidence of right lower extremity deep vein thrombosis. Right great saphenous vein appears patent and compressible segmentally. Ordering Physician: Memo Cardenas Referring Physician: Gagandeep Barclay Performed By: Celena Chung, T Tibia/Fibula X-Ray 12/01/21 16:10 IMPRESSION: 1. Degenerative findings of the knee. 2. Soft tissue swelling around the ankle. Electronically Signed: Aguilar Babin MD at 16:24 EDT Reading Location ID and State: [facility] / [place] , Service support , Assessment & Plan Assessment/Plan (1) Acute gout: PLAN: Plan 1. Debility with intractable right knee pain secondary to suspected acute gout- initiated on colchicine and prednisone in ED. As needed pain regimen. PT/OT. Uric acid 9.3. Check ESR/CRP. DVT ruled out. Imaging unremarkable. 2. Hypertension-stable, continue carvedilol, lisinopril, hydralazine, amlodipine. 3. Hyperlipidemia-continue statin. 4. History of DVT/PE-on anticoagulation with Coumadin. 5. Paroxysmal atrial fibrillation-continue Coumadin, rate control regimen. 6. Chronic COPD-as needed albuterol aerosol. 7. CRISTELA-continue home PAP regimen. 8. CAD with history of stent-continue aspirin, statin, beta-allie. 9. Chronic heart failure with preserved ejection fraction-continue diuretic regimen. 10. Morbid obesity-encouraged diet and lifestyle modifications. 11. Tobacco dependence-nicotine replacement patch. DVT prophylaxis- Coumadin This patient was seen by LILLIE Camejo under the supervision of Dr. Pierre. Time spent examining patient, reviewing data and subsequent management of care: 26 minutes Documented by User: Dr. Jeremiah Pierre DO 12/01/21 21:40 HPI - General General Date of Admission: 12/01/21 FOR[facility]LY [facility] Medical History Ambulates with cane Arthritis Atherosclerosis of coronary artery of rosebud heart without angina pectoris Cardiac dysrhythmia Cardiopulmonary arrest (08/20/18) Chronic pain COPD (chronic obstructive pulmonary disease) Degeneration of intervertebral disc of lumbosacral region Diastolic congestive heart failure Diastolic dysfunction with acute on chronic heart failure Essential (primary) hypertension Failed back syndrome of lumbar spine High cholesterol History of Walker's palsy History of deep vein thrombosis (DVT) of lower extremity History of edema History of non-ST elevation myocardial infarction (NSTEMI) (03/03/19) History of steroid therapy Morbid obesity Nicotine dependence Nicotine vapor product user Obstructive sleep apnea Paroxysmal atrial fibrillation Paroxysmal atrial flutter Sacrococcygeal disorders, not elsewhere classified Sacroiliitis, not elsewhere classified Shortness of breath on exertion Wears glasses Home Medications lisinopril 40 mg tablet 40 mg PO BID blood pressure 04/04/13 [History Last Taken 12/01/21] fluticasone propionate 50 mcg/actuation nasal spray,suspension 1 spray NASAL ZEYNEP LY PRN PRN Allergies 09/27/18 [History Last Taken 1 Week Ago ~11/24/21] sotalol 80 mg tablet 80 mg PO BID bp,heart 09/27/18 [History Last Taken 12/01/21] furosemide 40 mg tablet 40 mg PO BID #60 tabs 09/28/18 [Rx Last Taken 12/01/21] aspirin 81 mg tablet,delayed release 81 mg PO DAILY@0800 03/05/19 [Rx Last Taken 12/01/21] atorvastatin 80 mg tablet 80 mg PO QHS #30 tabs 03/05/19 [Rx Last Taken ] albuterol sulfate 90 mcg/actuation aerosol inhaler 1 - 2 puff inhalation Q4H PRN PRN Asthma 02/19/20 [History Last Taken 1 Week Ago ~11/24/21] carvedilol 6.25 mg tablet 6.25 mg PO BID heart 02/19/20 [History Last Taken 12/01/21] amlodipine 5 mg tablet 5 mg PO DAILY 12/01/21 [History Last Taken 12/01/21] cephalexin 500 mg capsule 500 mg PO BID PROPHYLACTIC 12/01/21 [History Last Taken 12/01/21] hydralazine 50 mg tablet 50 mg PO BID 12/01/21 [History Last Taken 12/01/21] hydrocodone 7.5 mg-acetaminophen 325 mg tablet 1 tab PO TID PRN Pain 12/01/21 [History Last Taken Unknown] naproxen sodium 220 mg tablet (Aleve) 440 mg PO DAILY 12/01/21 [History Last Taken 4 Days Ago ~11/27/21] potassium chloride 20 mEq tablet,extended release(part/cryst) (Klor-Con M) 20 meq PO DAILY 12/01/21 [History Last Taken 12/01/21] sildenafil (pulm.hypertension) 20 mg tablet 20 mg PO TID PRN HTN 12/01/21 [Hi story Last Taken Unknown] trazodone 50 mg tablet 50 mg PO QHS PRN Sleep 12/01/21 [History Last Taken Unknown] warfarin 4 mg tablet 4 mg PO SUMOWETHSA 12/01/21 [History Last Taken 12/01/21] warfarin 4 mg tablet 6 mg PO TUFR 12/01/21 [History Last Taken 11/30/21] Allergy/AdvReac Type Severity Reaction Status Date / Time Penicillins Allergy Hives Verified 12/01/21 12:14 pregabalin [From Lyrica] Allergy Hives Verified 12/01/21 12:14 red dye Allergy Angioedema Verified 12/01/21 12:14 Family History (Updated 12/01/21 @ 17:53 by Mayr Taylor NP, [employer]ACH-C) Mother CVA (cerebral vascular accident) Father , Murdered per patient No problems noted. Surgical History History of back surgery History of coronary artery stent placement (03/03/19) History of total hip arthroplasty History of total knee arthroplasty Social History (Updated 12/01/21 @ 17:53 by Mary Taylor HEAD TENNIS COACH, HEAD TENNIS COACH-C) household members: significant other Smoking Status: Current every day smoker tobacco type: cigarettes and e- cigarettes alcohol intake: never substance use type: does not use Results Lab / Micro Data Result Diagrams: 12/01/21 14:05 12/01/21 14:05 Assessment & Plan Assessment/Plan (1) Acute gout: Charges/Coding Addendum Addendum: Patient was seen and examined today independently of Mary Taylor, he came to the emergency room today at [facility] after he had difficulty ambulating due to pain in his right foot and his right knee. Patient states that he started having pain and swelling in his right knee about a week and a half ago, he then stated that he began having pain in his right great toe area within the last 2 days. Patient denies any history of gout. Patient was trying to get out of his truck today and could not bear weight on his right leg and he came to the emergency room for evaluation. On examination he appeared in good health and spirits,patient is morbidly obese. Vital signs as documented. Skin warm and dry and without overt rashes. Neck without JVD, neck was supple, trachea midline, thyroid was normal. Lungs clear bilaterally, normal air movement was noted. Heart exam notable for regular rhythm, normal sounds and absence of murmurs, rubs or gallops. Abdomen unremarkable and without evidence of organomegaly, masses, or abdominal aortic enlargement. Bowel sounds are present, abdomen is not distended. Extremities- there is generalized edema around the right knee noted, right first metatarsal phalangeal joint is tender and swollen, no cyanosis was noted, no clubbing was noted. Neuro: Cranial nerves II through XII are grossly intact, no focal motor deficits were noted, sensation to light touch and pinprick intact, motor exam 5/5 throughout. Psych: Patient is alert and oriented x3, he does not appear anxious or depressed, he does not appear agitated. Impression: #1 acute gouty arthritis-patient will be placed in observation status on MedSurg 3, he will be seen by PT and OT, he will be placed on IV corticosteroids and given oral pain medications. Patient will need follow-up as an outpatient for further treatment of gout. #2 morbid obesity-complicates care, recovery, management, and prognosis #3 coronary artery disease-patient will remain on his home medications #4 paroxysmal atrial fibrillation-patient is on Coumadin chronically, his INR however is not therapeutic, INR will be rechecked tomorrow morning #5 chronic use of anticoagulants-again patient's INR subtherapeutic, INR will be rechecked tomorrow #6 essential hypertension-patient will remain on his current medications #7 degenerative disc disease of the lumbar spine-complicates care, recovery, management, and prognosis I have reviewed Mary Taylor's history and physical including her medical assessment and plan of care with the above additions endorse it. Total clinical time spent by myself addressing the patient's medical issues, reviewing the data, and collaborating with patient's care team: 45 minutes Visit Charges OBSV E&M: [id number] Initial observation care L3
[2021-12-01 19:13] LABS: Erythrocyte Sedimentation Rate 25 mm/hr (0-20)
[2021-12-01] MEDS: 0.9% Saline Lock 10 ML Syringe IV (20:43)
[2021-12-01] MEDS: Atorvastatin Calcium 80 MG Tablet PO (20:44)
[2021-12-01] MEDS: Lisinopril 40 MG Tablet PO (20:44)
[2021-12-01] MEDS: Furosemide 40 MG Tablet PO (20:45)
[2021-12-01] MEDS: Carvedilol 6.25 MG Tablet PO (20:45)
[2021-12-01] MEDS: Sotalol Hydrochloride 80 MG Tablet PO (20:45)
[2021-12-01] MEDS: traZODone 50 MG Tablet PO (21:30)
[2021-12-02 02:31] VITALS: BP 137/85; PULSE 71; RESP 18; TEMP 37.2; O2SAT 92
[2021-12-02 04:03] VITALS: PULSE 75
[2021-12-02 05:04] LABS: Absolute Lymphocyte Count 0.86 X10^3/uL (0.83-4.51); Absolute Neutrophil Count 7.7 X10^3/uL (2.0-7.7); Basophil# 0.03 X10^3/uL; Basophil% 0.3 % (0-1); Hematocrit 47.3 % (40-54); Hemoglobin 15.3 g/dL (13.0-16.5); Lymphocyte # 0.86 X10^3/ul (0.83-4.51); Mean Corp Hgb Conc 32.3 g/dL (32-36); Mean Corpuscular Hgb 25.2 pg (27.0-32.0); Mean Corpuscular Volume 77.9 fL (80-94); Monocyte# 0.97 X10^3/uL; Monocyte% 10.2 % (0-10); NRBC Flagged by Analyzer 0 % (0-5); Neutrophil # 7.65 X10^3/uL (2.7-7.7); Neutrophil % 80.1 % (47-70); POSITIVE MORPHOLOGY YES; Platelet Count 192 K/mm3 (150-450); RBC Distribution Width CV 20.3 % (11.6-14.6); RBC Distribution Width SD 55.2 fl (35.1-43.9); Red Blood Count 6.07 M/mm3 (4.6-6.2); White Blood Count 9.6 K/mm3 (4.4-11.0)
[2021-12-02 05:09] LABS: Differential Indicated SCAN CRITERIA MET
[2021-12-02 05:22] LABS: International Normalized Ratio 1.2; Prothrombin Time (Protime)PT. 15.1 SECONDS (11.7-14.9)
[2021-12-02 05:32] LABS: Anion Gap 8 (5-15); BUN 26 mg/dL (7-18); BUN/Creat Ratio 18.6 RATIO (10-20); Calcium,Total 8.7 mg/dL (8.5-10.1); Chloride 104 mmol/L (98-107); EST Glomerular Filtration Rate 55 mL/min (>60); Est Glom Filt Rate - Afr Amer 66 mL/min (>60); Estimated Creatinine Clearance 61.83 ml/min; Glucose 135 mg/dL (74-106); Potassium 3.8 mmol/L (3.5-5.1); Sodium Level 140 mmol/L (136-145)
[2021-12-02 05:53] LABS: Anisocytosis 1+; Differential Comment SCANNED
[2021-12-02 06:59] VITALS: PULSE 62
--- NOTE | 2021-12-02 07:47 | PN.HOSP_ITS ---
Subjective Subjective Follow-up on debility: Patient was seen and examined. He was seen working with physical and Occupational Therapy. He is able to bend his right knee to about 90 degrees. Denied any fever or chills. Objective Data Objective Data Vital Signs: Vital Signs Temp Pulse Resp BP Pulse Ox O2 Del Method 98.9 F 75 18 137/85 H 92 Room Air 12/02/21 02:31 12/02/21 04:03 12/02/21 02:31 12/02/21 02:31 12/02/21 02:31 12/02/21 02:31 Oxygen Delivery Method Room Air Weight: 159.528 kg Body Mass Index (BMI) 46.3 Intake & Output: Intake and Output for Last 24 Hours 11/30/21 12/01/21 12/02/21 23:59 23:59 23:59 Intake Total 150 / 150 300 / 300 Output Total 200 / 200 200 / 200 Balance -50 / -50 100 / 100 Lab / Micro Data Result Diagrams: 12/02/21 04:32 12/02/21 04:32 Labs: Laboratory Results - last 24 hr 12/01/21 14:05: WBC 11.2 H, RBC 6.61 H, Hgb 16.7 H, Hct 52.9, MCV 80.0, MCH 25.3 L, MCHC 31.6 L, RDW Std Deviation 57.8 H, RDW Coeff of Raheem 21.3 H, Plt Count 185, MPV 11.5, Immature Gran % (Auto) 0.400, Neut % (Auto) 66.7, Lymph % (Auto) 15.0 L, [place] % (Auto) 17.0 H, Eos % (Auto) 0.3, Baso % (Auto) 0.6, Absolute Neuts (auto) 7.5, Absolute Lymphs (auto) 1.68, Nucleated RBC % 0, Differential Comment , Diff Path Review May foll, Platelet Estimate ADEQUATE, RBC Morphology N CHROM, Anisocytosis 1+ 12/01/21 14:05: PT 14.3, INR 1.1 12/01/21 14:05: Sodium 137, Potassium 5.4 H, Chloride 102, Carbon Dioxide 25.0, Anion Gap 10, BUN 17, Creatinine 1.21, Estim Creat Clear Calc 71.54, Est GFR (MDRD) Af Amer 78, Est GFR (MDRD) Non-Af 65, BUN/Creatinine Ratio 14.0, Glucose 88, Uric Acid 9.3 H, Calcium 9.0 12/01/21 14:05: ESR 25 H 12/01/21 14:05: C-React Prot Ext Range 98.70 H 12/02/21 04:32: WBC 9.6, RBC 6.07, Hgb 15.3, Hct 47.3, MCV 77.9 L, MCH 25.2 L, MCHC 32.3, RDW Std Deviation 55.2 H, RDW Coeff of Raheem 20.3 H, Plt Count 192, MPV TNP, Immature Gran % (Auto) 0.400, Neut % (Auto) 80.1 H, Lymph % (Auto) 9.0 L, [place] % (Auto) 10.2 H, Eos % (Auto) 0.0, Baso % (Auto) 0.3, Absolute Neuts (auto) 7.7, Absolute Lymphs (auto) 0.86, Nucleated RBC % 0, Differential Comment SCANNED, Anisocytosis 1+ 12/02/21 04:32: Sodium 140, Potassium 3.8, Chloride 104, Carbon Dioxide 28.0, Anion Gap 8, BUN 26 H, Creatinine 1.40 H, Estim Creat Clear Calc 61.83, Est GFR (MDRD) Af Amer 66, Est GFR (MDRD) Non-Af 55 L, BUN/Creatinine Ratio 18.6, Glucose 135 H, Calcium 8.7 12/02/21 04:32: PT 15.1 H, INR 1.2 Radiography Diagnostic Testing: Radiology Impression Foot X-Ray 12/01/21 14:26 IMPRESSION: Calcaneal spurs. Electronically Signed: Celestine Reynolds MD at 15:02 EDT , Knee X-Ray 12/01/21 14:26 IMPRESSION: Degenerative arthrosis. Joint effusion. Electronically Signed: Celestine Reynolds MD at 15:01 EDT , Venous Doppler Study 12/01/21 15:21 Interpretation Summary There is no evidence of right lower extremity deep vein thrombosis. Right great saphenous vein appears patent and compressible segmentally. Ordering Physician: Memo Cardenas Referring Physician: Gagandeep Barclay Performed By: Celena Chung T Tibia/Fibula X-Ray 12/01/21 16:10 IMPRESSION: 1. Degenerative findings of the knee. 2. Soft tissue swelling around the ankle. Electronically Signed: Aguilar Babin MD at 16:24 EDT Reading Location ID and State: [facility] [place] / [place] , Service support , Physical Exam Narrative Physical exam: General: Alert, Oriented x3, Cooperative, No apparent distress HEENT: Atraumatic Oral: Moist Mucosa Neck: Supple Lungs: Clear to auscultation Cardiovascular: HS I+II, regular, no murmurs Abdomen: Bowel Sounds Present, Soft, Non Tender Extremities: Bilateral pedal edema +2, right knee looks swollen Skin: No rashes, No breakdown Neurological: Grossly intact Psych/Mental Status: Appropriate
[2021-12-02 09:37] VITALS: BP 133/79; PULSE 62; RESP 16; TEMP 36.4; O2SAT 97
[2021-12-02] MEDS: Aspirin E.C. 81 MG Tablet PO (09:39)
[2021-12-02] MEDS: predniSONE 20 MG Tablet 40 MG PO (09:39)
[2021-12-02 09:40] VITALS: BP 133/79; PULSE 62
[2021-12-02] MEDS: Colchicine 0.6 MG TABLET PO (09:40)
[2021-12-02] MEDS: hydrALAZINE 25 MG Tablet PO (09:40)
[2021-12-02] MEDS: Sotalol Hydrochloride 80 MG Tablet PO (09:40)
[2021-12-02] MEDS: amLODIPine 5 MG Tablet PO (09:41)
[2021-12-02] MEDS: Lisinopril 40 MG Tablet PO (09:41)
[2021-12-02] MEDS: Carvedilol 6.25 MG Tablet PO (09:41)
[2021-12-02] MEDS: Furosemide 40 MG Tablet PO (09:41)
--- NOTE | 2021-12-02 11:15 | CASEMGMT ---
JONATHAN TORREZ NOTE: JONATHAN TORREZ to room. Introduced self and role. Pt states he lives w/his GF in a one-story home w/3 steps to enter. He is usually independent w/ADL's. Pt reports GF is an aide and able to assist him when she is home. He has 4 canes, a walker, knee brace, RTS and toilet side rails. He has a friend that can pick him up today and help get him in his home. Pt states he just started @ [facility] for therapy for back issues--he just recently had the eval done. He plans to call them to schedule his next appt and plans to address knee issues w/them at his next appt. He feels safe returning home. He denies having any home-going/discharge planning needs. Pt instructed to ask for CM if any issues or concerns arise. PT/OT evals reviewed. Preeti SCOTT RN, CM
[2021-12-02] MEDS: Cephalexin 500 MG Capsule PO (11:54)
--- NOTE | 2021-12-02 14:01 | DCINST_ITS ---
Discharge Instructions Diet Discharge Diet: Low fat / Low cholesterol and 2000 mg Sodium Diet Activity Discharge Activity: Return to Normal Activity Follow Up Care Test Results: Test results from this visit will be discussed in further detail at your follow- up appointment, if applicable. Discharge Plan Admission Admit Date/Time: 12/01/21 18:01 Attending Provider: Christianne Villa Primary Care Provider: Gagandeep Barclay Consulting Providers: Jeremiah Pierre Discharge Orders/Prescriptions Prescriptions: New allopurinol 100 mg Tablet 100 mg PO DAILYCM 30 Days Qty: 30 0RF prednisone 10 mg tablet See Taper PO DAILY 10 Days Qty: 20 0RF Taper: Prednisone Taper 40 mg WITH BREAKFAST for 2 Days and 0 Hour 30 mg WITH BREAKFAST for 2 Days and 0 Hour 20 mg WITH BREAKFAST for 2 Days and 0 Hour 10 mg WITH BREAKFAST for 2 Days and 0 Hour Continued lisinopril 40 MG tablet 40 mg PO BID sotalol 80 MG tablet 80 mg PO BID Label Comments: TAKE 1 TABLET BY MOUTH TWICE A DAY fluticasone propionate 16 GM spray,suspension 1 spray NASAL DAILY PRN PRN (Reason: Allergies) Label Comments: PLACE 2 SPRAYS IN EACH NOSTRIL ONCE DAILY furosemide 40 mg tablet 40 mg PO BID Qty: 60 0RF atorvastatin 80 MG tablet 80 mg PO QHS Qty: 30 0RF aspirin 81 MG tablet 81 mg PO DAILY@0800 0RF carvedilol 6.25 MG tablet 6.25 mg PO BID albuterol sulfate 1 PUFF inhaler 1 - 2 puff INHALATION Q4H PRN PRN (Reason: Asthma) warfarin 4 mg tablet 6 mg PO TUFR warfarin 4 mg tablet 4 mg PO SUMOWETHSA hydrocodone-acetaminophen 7.5-325 mg tablet 1 tab PO TID PRN (Reason: Pain) Label Comments: TAKE 1 TABLET BY MOUTH THREE TO FOUR TIMES A DAY NEEDED FOR PAIN Rx Instructions: TAKE 1 TABLET BY MOUTH THREE TO FOUR TIMES A DAY NEEDED FOR PAIN cephalexin 500 mg capsule 500 mg PO BID Label Comments: TAKE 1 CAPSULE BY MOUTH EVERY 12 HOURS sildenafil (pulm.hypertension) 20 mg tablet 20 mg PO TID PRN (Reason: HTN) amlodipine 5 mg tablet 5 mg PO DAILY hydralazine 50 mg tablet 50 mg PO BID Label Comments: TAKE 1 TABLET BY MOUTH TWICE A DAY potassium chloride [Klor-Con M20] 20 mEq tablet,ER particles/crystals 20 meq PO DAILY trazodone 50 mg tablet 50 mg PO QHS PRN (Reason: Sleep) Label Comments: TAKE 1 TABLET BY MOUTH AT BEDTIME NEEDED FOR SLEEP Discontinued naproxen sodium [Aleve] 220 mg Tablet 440 mg PO DAILY Referrals / Follow Up: José Luque DO [Med Staff - Active Staff] - Within 2 Weeks Gagandeep Barclay DO [Primary Care Provider] - Within 1 Week Disposition Disposition (needs filled in before D/C Order can be placed): Home, Self Care
--- NOTE | 2021-12-02 14:03 | PCM.DC.SUM ---
Providers Date of Admission: 12/01/21 Date of Discharge: 12/02/21 Primary Care Physician: Dr. Gagandeep Barclay DO Reason For Visit: DEBILITY, RIGHT KNEE PAIN Diagnosis Discharge Diagnosis (1) Acute gout: Status: Acute Code(s): M10.9 - Gout, unspecified Medications at Discharge Home Medications lisinopril 40 mg tablet 40 mg PO BID blood pressure 04/04/13 fluticasone propionate 50 mcg/actuation nasal spray,suspension 1 spray NASAL DAILY PRN PRN Allergies 09/27/18 sotalol 80 mg tablet 80 mg PO BID bp,heart 09/27/18 furosemide 40 mg tablet 40 mg PO BID #60 tabs 09/28/18 aspirin 81 mg tablet,delayed release 81 mg PO DAILY@0800 03/05/19 atorvastatin 80 mg tablet 80 mg PO QHS #30 tabs 03/05/19 albuterol sulfate 90 mcg/actuation aerosol inhaler 1 - 2 puff inhalation Q4H PRN PRN Asthma 02/19/20 carvedilol 6.25 mg tablet 6.25 mg PO BID heart 02/19/20 amlodipine 5 mg tablet 5 mg PO DAILY 12/01/21 cephalexin 500 mg capsule 500 mg PO BID PROPHYLACTIC 12/01/21 hydralazine 50 mg tablet 50 mg PO BID 12/01/21 hydrocodone 7.5 mg-acetaminophen 325 mg tablet 1 tab PO TID PRN Pain 12/01/21 potassium chloride 20 mEq tablet,extended release(part/cryst) (Klor-Con M) 20 meq PO DAILY 12/01/21 sildenafil (pulm.hypertension) 20 mg tablet 20 mg PO TID PRN HTN 12/01/21 trazodone 50 mg tablet 50 mg PO QHS PRN Sleep 12/01/21 warfarin 4 mg tablet 4 mg PO SUMOWETHSA 12/01/21 warfarin 4 mg tablet 6 mg PO TUFR 12/01/21 allopurinol 100 mg tablet 100 mg PO DAILYCM 30 days #30 tabs 12/02/21 prednisone 10 mg tablet See Taper PO DAILY 10 days #20 tabs 12/02/21 Hospital Course Operations None Procedures None Summary of Care Provided Minutes Spent on Discharge: 45 Hospital Course: 61 y/o male with multiple co-morbidities who comes in with right knee pain. This has been ongoing for a week and a half. He started having pain in his right great toe over the last 2 days. He was unable to bear weight when he got out of his truck today. He was seen in the emergency department. X-rays of the right knee was stable. Her knee x-ray showed joint swelling with effusion. Uric acid was 9.3. Patient was admitted to the [facility] floor as intractable knee pain secondary to acute gouty arthritis. Patient was started on prednisone and colchicine. PT and OT were consulted. Patient also started allopurinol. His pain was controlled. He felt stable to be discharged on a walker and a cane which he has already at home. He will follow-up with orthopedics in the outpatient within a week Physical Exam Narrative See progress note Weight / BMI Weight Weight: 159.528 kg Body Mass Index (BMI) 46.3 ABG / Lab / Microbiology Data Result Diagrams: 12/02/21 04:32 12/02/21 04:32 Laboratory: Laboratory Results - last 24 hr 12/01/21 14:05: WBC 11.2 H, RBC 6.61 H, Hgb 16.7 H, Hct 52.9, MCV 80.0, MCH 25.3 L, MCHC 31.6 L, RDW Std Deviation 57.8 H, RDW Coeff of Raheem 21.3 H, Plt Count 185, MPV 11.5, Immature Gran % (Auto) 0.400, Neut % (Auto) 66.7, Lymph % (Auto) 15.0 L, [place] % (Auto) 17.0 H, Eos % (Auto) 0.3, Baso % (Auto) 0.6, Absolute Neuts (auto) 7.5, Absolute Lymphs (auto) 1.68, Nucleated RBC % 0, Differential Comment , Diff Path Review July, Platelet Estimate ADEQUATE, RBC Morphology N CHROM, Anisocytosis 1+ 12/01/21 14:05: PT 14.3, INR 1.1 12/01/21 14:05: Sodium 137, Potassium 5.4 H, Chloride 102, Carbon Dioxide 25.0, Anion Gap 10, BUN 17, Creatinine 1.21, Estim Creat Clear Calc 71.54, Est GFR (MDRD) Af Amer 78, Est GFR (MDRD) Non-Af 65, BUN/Creatinine Ratio 14.0, Glucose 88, Uric Acid 9.3 H, Calcium 9.0 12/01/21 14:05: ESR 25 H 12/01/21 14:05: C-React Prot Ext Range 98.70 H 12/02/21 04:32: WBC 9.6, RBC 6.07, Hgb 15.3, Hct 47.3, MCV 77.9 L, MCH 25.2 L, MCHC 32.3, RDW Std Deviation 55.2 H, RDW Coeff of Raheem 20.3 H, Plt Count 192, MPV TNP, Immature Gran % (Auto) 0.400, Neut % (Auto) 80.1 H, Lymph % (Auto) 9.0 L, [place] % (Auto) 10.2 H, Eos % (Auto) 0.0, Baso % (Auto) 0.3, Absolute Neuts (auto) 7.7, Absolute Lymphs (auto) 0.86, Nucleated RBC % 0, Differential Comment SCANNED, Anisocytosis 1+ 12/02/21 04:32: Sodium 140, Potassium 3.8, Chloride 104, Carbon Dioxide 28.0, Anion Gap 8, BUN 26 H, Creatinine 1.40 H, Estim Creat Clear Calc 61.83, Est GFR (MDRD) Af Amer 66, Est GFR (MDRD) Non-Af 55 L, BUN/Creatinine Ratio 18.6, Glucose 135 H, Calcium 8.7 12/02/21 04:32: PT 15.1 H, INR 1.2 Radiography Diagnostic Testing: Radiology Impression Foot X-Ray 12/01/21 14:26 IMPRESSION: Calcaneal spurs. Electronically Signed: Celestine Reynolds MD at 15:02 EDT , Knee X-Ray 12/01/21 14:26 IMPRESSION: Degenerative arthrosis. Joint effusion. Electronically Signed: Celestine Reynolds MD at 15:01 EDT , Venous Doppler Study 12/01/21 15:21 Interpretation Summary There is no evidence of right lower extremity deep vein thrombosis. Right great saphenous vein appears patent and compressible segmentally. Ordering Physician: Memo Cardenas Referring Physician: Gagandeep Barclay Performed By: Celena Chung, Francoise Tibia/Fibula X-Ray 12/01/21 16:10 IMPRESSION: 1. Degenerative findings of the knee. 2. Soft tissue swelling around the ankle. Electronically Signed: Aguilar Babin MD at 16:24 EDT Reading Location ID and State: [address] [place] [address] , Service support , D/C Instructions Discharge Diet: Low fat / Low cholesterol and 2000 mg Sodium Diet Meaningful Use Info Meaningful Use Diagnoses (Choose all that apply): None applicable Discharge Plan Admission Admit Date/Time: 12/01/21 18:01 Primary Reason for Your Visit: Acute right knee pain Attending Provider: Christianne Villa Primary Care Provider: Gagandeep Barclay Consulting Providers: Jeremiah Pierre Discharge Orders/Prescriptions Prescriptions: New allopurinol 100 mg Tablet 100 mg PO DAILYCM 30 Days Qty: 30 0RF prednisone 10 mg tablet See Taper PO DAILY 10 Days Qty: 20 0RF Taper: Prednisone Taper 40 mg WITH BREAKFAST for 2 Days and 0 Hour 30 mg WITH BREAKFAST for 2 Days and 0 Hour 20 mg WITH BREAKFAST for 2 Days and 0 Hour 10 mg WITH BREAKFAST for 2 Days and 0 Hour Continued lisinopril 40 MG tablet 40 mg PO BID sotalol 80 MG tablet 80 mg PO BID Label Comments: TAKE 1 TABLET BY MOUTH TWICE A DAY fluticasone propionate 16 GM spray,suspension 1 spray NASAL DAILY PRN PRN (Reason: Allergies) Label Comments: PLACE 2 SPRAYS IN EACH NOSTRIL ONCE DAILY furosemide 40 mg tablet 40 mg PO BID Qty: 60 0RF atorvastatin 80 MG tablet 80 mg PO QHS Qty: 30 0RF aspirin 81 MG tablet 81 mg PO DAILY@0800 0RF carvedilol 6.25 MG tablet 6.25 mg PO BID albuterol sulfate 1 PUFF inhaler 1 - 2 puff INHALATION Q4H PRN PRN (Reason: Asthma) warfarin 4 mg tablet 6 mg PO TUFR warfarin 4 mg tablet 4 mg PO SUMOWETHSA hydrocodone-acetaminophen 7.5-325 mg tablet 1 tab PO TID PRN (Reason: Pain) Label Comments: TAKE 1 TABLET BY MOUTH THREE TO FOUR TIMES A DAY NEEDED FOR PAIN Rx Instructions: TAKE 1 TABLET BY MOUTH THREE TO FOUR TIMES A DAY NEEDED FOR PAIN cephalexin 500 mg capsule 500 mg PO BID Label Comments: TAKE 1 CAPSULE BY MOUTH EVERY 12 HOURS sildenafil (pulm.hypertension) 20 mg tablet 20 mg PO TID PRN (Reason: HTN) amlodipine 5 mg tablet 5 mg PO DAILY hydralazine 50 mg tablet 50 mg PO BID Label Comments: TAKE 1 TABLET BY MOUTH TWICE A DAY potassium chloride [Klor-Con M20] 20 mEq tablet,ER particles/crystals 20 meq PO DAILY trazodone 50 mg tablet 50 mg PO QHS PRN (Reason: Sleep) Label Comments: TAKE 1 TABLET BY MOUTH AT BEDTIME NEEDED FOR SLEEP Discontinued naproxen sodium [Aleve] 220 mg Tablet 440 mg PO DAILY Referrals / Follow Up: José Luque DO [Med Staff - Active Staff] - Within 2 Weeks Gagandeep Barclay DO [Primary Care Provider] - Within 1 Week Disposition Disposition (needs filled in before D/C Order can be placed): Home, Self Care Charges/Coding Visit Charges OBSV E&M: 20741 Observation care discharge
[2021-12-02 15:00] VITALS: BP 115/64; PULSE 52; RESP 16; TEMP 37.1; O2SAT 93
[2021-12-02 15:09] LABS: Pathologist Review Reviewed
[2021-12-02] MEDS: HYDROcodone Bitartrate/Apap 5/325 Tablet PO (15:29)
--- NOTE | 2021-12-02 16:23 | CHAPLAIN ---
Type of Pastoral Visit ___ Initial Visit ___ Follow-up Visit ___ On-call Visit ___ General Patient Visit ___ Spiritual Assessment ___ Family Conference ___ Bereavement ___ Rapid Response ___ Code Blue ___ Other (describe below) Pastoral Care Referral From ___ Patient ___ Family ___ Nurse ___ Physician ___ Last Remodeler Repairer ___ Saddle And Harness Maker ___ Other (describe below) Sacrament/Intervention ___ Active listening ___ Anointing ___ Pentecostalism ___ Bereavement ___ Communion ___ Diane exploration ___ ___ Life review ___ Prayer ___ Reconciliation ___ Sacrament of Sick ___ Supportive presence ___ Wedding ___ Other (describe below) Pastoral Comments patient was sleeping and did not awaken to his name;
== END 2021-12-02 16:48 | disposition home or self-care (01) ==
LOC: ED 17:05 → MS3 19:09
PROVIDERS: Nurse Practitioner Family; Admitting Provider Internal Medicine; Emergency Provider Emergency Medicine; Visit Provider Internal Medicine
DX: M10.9 Gout, unspecified (principal); J44.9 Chronic obstructive pulmonary disease, unspecified; I11.0 Hypertensive heart disease with heart failure; I50.32 Chronic diastolic (congestive) heart failure; I48.0 Paroxysmal atrial fibrillation; E66.01 Morbid (severe) obesity due to excess calories; Z68.42 Body mass index [BMI] 45.0-49.9, adult; G89.29 Other chronic pain; E78.00 Pure hypercholesterolemia, unspecified; M51.36 Other intervertebral disc degeneration, lumbar region; I25.10 Atherosclerotic heart disease of native coronary artery without angina pectoris; F17.210 Nicotine dependence, cigarettes, uncomplicated; Z79.82 Long term (current) use of aspirin; Z79.899 Other long term (current) drug therapy; Z86.718 Personal history of other venous thrombosis and embolism; G47.33 Obstructive sleep apnea (adult) (pediatric); Z86.711 Personal history of pulmonary embolism
CPT/HCPCS: 36415; 73562; 73590; 73630; 80048; 84550; 85025; 85610; 85652; 86140; 93971; 96374; 96375; 97162; 97166; 99218; 99285; 99406; A4216; G0378

== ENCOUNTER 2021-12-20 08:30 | Day surgery (SDC) | payer OTHER, SELFPAY ==
[2019-07-19 12:16] VITALS: BMI 49.4
[2021-12-20] VITALS (12 sets, daily range): BP systolic 109–132; BP diastolic 63–86; PULSE 39–63; RESP 16; TEMP 36.8–37.1; O2SAT 92–100; BMI 38.9
[2021-12-20] MEDS: Lactated Ringers 1,000 ML 15 ML IV (09:49)
--- NOTE | 2021-12-20 10:00 | RAD_ITS ---
PROCEDURE: Caudal epidural. DATE OF EXAMINATION: 12/20/2021. INDICATION: Male, 61 years old. Chronic low back pain. FLUOROSCOPY TIME (if supplied): (10 seconds) minutes/seconds. One image was submitted. RAD/Fluor Guidance for Spine Inj IMPRESSION: Intraoperative imaging provided for caudal epidural. Electronically Signed: Celestine Reynolds MD at 9:38 EDT ,
[2021-12-20] MEDS: 0.9% Normal Saline (Pres. free 10 ML Vial (10:51)
[2021-12-20] MEDS: MethylPREDNISolone Acetate 40 MG/ML Vial IM ×2 (10:51)
[2021-12-20] MEDS: Lidocaine 1% (30 ml sdv) 30 ML Vial (10:51)
--- NOTE | 2021-12-20 10:55 | OP.PCM_ITS ---
Report of Operation Date of Procedure: 12/20/21 Pre-Operative Diagnosis: Lumbosacral radiculopathy, lumbosacral degenerative di sc disease, lumbosacral spinal stenosis Post-Operative Diagnosis: Lumbosacral radiculopathy, lumbosacral degenerative disc disease, lumbosacral spinal stenosis Surgery/Procedure Performed:: Caudal epidural steroid injection under fluoroscopic guidance Type of Anesthesia: MAC Estimated Blood Loss (mL): Minimal Description of Procedure: DESCRIPTION OF PROCEDURE: History and physical of today was reviewed. Risks and benefits of the procedure were explained. The patient understood and agreed to proceed. Informed consent was obtained. IV inserted per routine protocol. The patient was taken to the operating room and placed in the prone position with a pillow positioned underneath the abdomen. The lower back and tailbone area was prepped and draped in a sterile fashion using iodine x3. Under fluoroscopy guidance on a lateral view, the caudal space was identified. The skin and subcutaneous tissue was anesthetized with approximately 3 mL of 1% lidocaine using a 25-gauge regular needle. Under direct visualization with fluoroscopy, using a 22-gauge 3-1/2-inch spinal needle, the needle was advanced via the skin through the sacral hiatus. The tip of the needle was passed through the sacrococcygeal ligament and advanced to approximately S4 area. After negative aspiration of blood or CSF, a total of 3 mL of contrast was injected to confirm correct placement of the needle as well as cephalad spread. The spread was followed to approximately L5 area. After confirmation on AP as well as lateral view and repeated negative aspiration, a total of 15 mL of preservative-free 0.125% Marcaine with 80 mg of Depo-Medrol was injected easily. The needle was then removed intact. The patient experienced no sign or symptoms of intrathecal or intravascular injection. The patient experienced no paresthesia. The procedure was completed without any apparent difficulty or any complications. The patient appeared to tolerate it well. ASSESSMENT AND PLAN: This is a 61-year-old male with lumbosacral radiculopathy, lumbosacral degenerative disc disease, lumbosacral spinal stenosis status post caudal epidural steroid injection, patient will continue his current medications, patient will follow in approximately 2 weeks for reevaluation. Complications None
[2021-12-20 20:48] LABS: INR Fingerstick 1.2; Prothrombin Time Fingerstick 14.6 SEC (11.7-14.9)
[2021-12-22 08:35] LABS: INR Fingerstick 1.2; Prothrombin Time Fingerstick 14.6 SEC (11.7-14.9)
== END 2021-12-20 13:09 | disposition home or self-care (01) ==
LOC: SDC 08:31 → AC 09:12
PROVIDERS: Visit Provider Anesthesiology Pain Medicine
PROC: 3E0S3BZ Introduction of Anesthetic Agent into Epidural Space, Percutaneous Approach (ICD-10-PCS; CPT 62282; principal; 2021-12-20 11:00)
DX: M51.17 Intervertebral disc disorders with radiculopathy, lumbosacral region (principal); J44.9 Chronic obstructive pulmonary disease, unspecified; I50.33 Acute on chronic diastolic (congestive) heart failure; I11.0 Hypertensive heart disease with heart failure; I48.0 Paroxysmal atrial fibrillation; E66.01 Morbid (severe) obesity due to excess calories; M48.07 Spinal stenosis, lumbosacral region; I25.10 Atherosclerotic heart disease of native coronary artery without angina pectoris; E78.00 Pure hypercholesterolemia, unspecified; G47.33 Obstructive sleep apnea (adult) (pediatric); F17.200 Nicotine dependence, unspecified, uncomplicated; Z68.38 Body mass index [BMI] 38.0-38.9, adult; Z79.01 Long term (current) use of anticoagulants; Z79.82 Long term (current) use of aspirin; Z79.891 Long term (current) use of opiate analgesic; Z79.899 Other long term (current) drug therapy; Z86.74 Personal history of sudden cardiac arrest
CPT/HCPCS: 62323; 01992; 36416; 64483; 77003; 85610; J7120; J3490

== ENCOUNTER 2022-02-07 07:11 | Day surgery (SDC) | payer OTHER, SELFPAY ==
[2019-07-19 12:16] VITALS: BMI 49.4
[2022-02-07 07:42] VITALS: BP 143/83; PULSE 58; RESP 16; TEMP 36.3; O2SAT 98; BMI 45.9
[2022-02-07] MEDS: Lactated Ringers 1,000 ML 15 ML IV (08:15)
[2022-02-07 09:00] LABS: INR Fingerstick 1.1; Prothrombin Time Fingerstick 13.5 SEC (11.7-14.9)
--- NOTE | 2022-02-07 09:10 | RAD_ITS ---
INDICATION: CAUDAL INJECTION EXAMINATION/TECHNIQUE: 2 spot intraoperative films were provided for interpretation. Total Fluoroscopic Time: 5 seconds AND number of Fluoroscopic Images: 2 COMPARISON: 09/06/2021. FINDINGS: Limited single lateral view intraoperative fluoroscopic images of caudal injection was submitted. RAD/Fluor Guidance for Spine Inj IMPRESSION: Limited intraoperative fluoroscopic imaging of caudal injection. Please see intraoperative report for detailed findings. Electronically Signed: Prashanth Duong, at 14:58 EST ,
[2022-02-07] MEDS: Lidocaine 1% (5 ml sdv) 5 ML Vial (09:22)
[2022-02-07] MEDS: MethylPREDNISolone Acetate 80 MG/ML Vial (09:22)
[2022-02-07] MEDS: 0.9% Normal Saline (Pres. free 10 ML Vial (09:22)
[2022-02-07] MEDS: Bupivacaine 0.25% 30 ML Vial (09:22)
--- NOTE | 2022-02-07 09:27 | OP.PCM_ITS ---
Report of Operation Date of Procedure: 02/07/22 Pre-Operative Diagnosis: Lumbosacral radiculopathy, lumbosacral degenerative di sc disease, lumbosacral spinal stenosis Post-Operative Diagnosis: Lumbosacral radiculopathy, lumbosacral degenerative disc disease, lumbosacral spinal stenosis Surgery/Procedure Performed:: Caudal epidural steroid injection under fluoroscopic guidance Type of Anesthesia: MAC Estimated Blood Loss (mL): Minimal Description of Procedure: DESCRIPTION OF PROCEDURE: History and physical of today was reviewed. Risks and benefits of the procedure were explained. The patient understood and agreed to proceed. Informed consent was obtained. IV inserted per routine protocol. The patient was taken to the operating room and placed in the prone position with a pillow positioned underneath the abdomen. The lower back and tailbone area was prepped and draped in a sterile fashion using iodine x3. Under fluoroscopy guidance on a lateral view, the caudal space was identified. The skin and subcutaneous tissue was anesthetized with approximately 3 mL of 1% lidocaine using a 25-gauge regular needle. Under direct visualization with fluoroscopy, using a 22-gauge 3-1/2-inch spinal needle, the needle was advanced via the skin through the sacral hiatus. The tip of the needle was passed through the sacrococcygeal ligament and advanced to approximately S4 area. After negative aspiration of blood or CSF, a total of 3 mL of contrast was injected to confirm correct placement of the needle as well as cephalad spread. The spread was followed to approximately L5 area. After confirmation on AP as well as lateral view and repeated negative aspiration, a total of 15 mL of preservative-free 0.125% Marcaine with 80 mg of Depo-Medrol was injected easily. The needle was then removed intact. The patient experienced no sign or symptoms of intrathecal or intravascular injection. The patient experienced no paresthesia. The procedure was completed without any apparent difficulty or any complications. The patient appeared to tolerate it well. ASSESSMENT AND PLAN: This is a 61-year-old male with lumbosacral radiculopathy, lumbosacral degenerative disc disease, lumbosacral spinal stenosis status post caudal epidural steroid injection, patient will continue his current medications, patient will follow in approximately 2 weeks for reevaluation. Complications None
[2022-02-07 09:29] VITALS: BP 112/77; BP 143/83; PULSE 61; RESP 16; TEMP 36.4; O2SAT 100
[2022-02-07 09:35] VITALS: BP 127/83; BP 143/83; PULSE 64; RESP 16; O2SAT 97
[2022-02-07 09:40] VITALS: BP 127/89; BP 143/83; PULSE 62; RESP 16; O2SAT 98
[2022-02-07 09:45] VITALS: BP 117/79; BP 143/83; PULSE 58; RESP 18; TEMP 36.8; O2SAT 95
[2022-02-07 10:04] VITALS: BP 143/83
== END 2022-02-07 10:32 | disposition home or self-care (01) ==
LOC: SDC 07:11 → AC 07:13
PROVIDERS: Referring Provider Anesthesiology Pain Medicine; Visit Provider Anesthesiology Pain Medicine
PROC: 3E0S3BZ Introduction of Anesthetic Agent into Epidural Space, Percutaneous Approach (ICD-10-PCS; CPT 62282; principal; 2022-02-07 09:05)
DX: M51.17 Intervertebral disc disorders with radiculopathy, lumbosacral region (principal); M48.07 Spinal stenosis, lumbosacral region; I25.10 Atherosclerotic heart disease of native coronary artery without angina pectoris; I10 Essential (primary) hypertension; Z79.01 Long term (current) use of anticoagulants; Z79.52 Long term (current) use of systemic steroids; Z79.899 Other long term (current) drug therapy
CPT/HCPCS: 62323; 01992; 36416; 64483; 77003; 85610; J7120; J3490

== ENCOUNTER 2022-05-09 09:51 | Day surgery (SDC) | payer OTHER, SELFPAY ==
[2019-07-19 12:16] VITALS: BMI 49.4
[2022-05-09] VITALS (7 sets, daily range): BP systolic 103–119; BP diastolic 57–71; PULSE 48–54; RESP 16–18; TEMP 36.4–36.9; O2SAT 96–100; BMI 48.3
[2022-05-09 11:10] LABS: INR Fingerstick 1.3; Prothrombin Time Fingerstick 15.6 SEC (11.7-14.9)
[2022-05-09] MEDS: Lactated Ringers 1,000 ML 15 ML IV (11:22)
--- NOTE | 2022-05-09 11:55 | RAD_ITS ---
PROCEDURE: Caudal block. DATE OF EXAMINATION: 05/09/2022. INDICATION: Male, 61 years old. Chronic low back pain FLUOROSCOPY TIME (if supplied): (9 seconds) minutes/seconds. 12.57 mGy. 2 images were submitted. RAD/Fluor Guidance for Spine Inj IMPRESSION: Intraoperative fluoroscopic services provided for caudal block. Electronically Signed: Celestine Reynolds MD at 10:04 [facility] ,
[2022-05-09] MEDS: Lidocaine 1% (5 ml sdv) 5 ML Vial (12:03)
[2022-05-09] MEDS: 0.9% Normal Saline (Pres. free 10 ML Vial (12:03)
[2022-05-09] MEDS: MethylPREDNISolone Acetate 80 MG/ML Vial (12:03)
[2022-05-09] MEDS: Bupivacaine 0.25% 30 ML Vial (12:03)
--- NOTE | 2022-05-09 12:06 | OP.PCM_ITS ---
Report of Operation Date of Procedure: 05/09/22 Pre-Operative Diagnosis: Lumbosacral radiculopathy, lumbosacral degenerative di sc disease, lumbosacral spinal stenosis Post-Operative Diagnosis: Lumbosacral radiculopathy, lumbosacral degenerative disc disease, lumbosacral spinal stenosis Surgery/Procedure Performed:: Caudal epidural steroid injection under fluoroscopic guidance Type of Anesthesia: MAC Estimated Blood Loss (mL): Minimal Description of Procedure: DESCRIPTION OF PROCEDURE: History and physical of today was reviewed. Risks and benefits of the procedure were explained. The patient understood and agreed to proceed. Informed consent was obtained. IV inserted per routine protocol. The patient was taken to the operating room and placed in the prone position with a pillow positioned underneath the abdomen. The lower back and tailbone area was prepped and draped in a sterile fashion using iodine x3. Under fluoroscopy guidance on a lateral view, the caudal space was identified. The skin and subcutaneous tissue was anesthetized with approximately 3 mL of 1% lidocaine using a 25-gauge regular needle. Under direct visualization with fluoroscopy, using a 22-gauge 3-1/2-inch spinal needle, the needle was advanced via the skin through the sacral hiatus. The tip of the needle was passed through the sacrococcygeal ligament and advanced to approximately S4 area. After negative aspiration of blood or CSF, a total of 3 mL of contrast was injected to confirm correct placement of the needle as well as cephalad spread. The spread was followed to approximately L5 area. After confirmation on AP as well as lateral view and repeated negative aspiration, a total of 15 mL of preservative-free 0.125% Marcaine with 80 mg of Depo-Medrol was injected easily. The needle was then removed intact. The patient experienced no sign or symptoms of intrathecal or intravascular injection. The patient experienced no paresthesia. The procedure was completed without any apparent difficulty or any complications. The patient appeared to tolerate it well. ASSESSMENT AND PLAN: This is a 61-year-old male with lumbosacral radiculopathy, lumbosacral degenerative disc disease, lumbosacral spinal stenosis status post caudal epidural steroid injection, patient will continue his current medications, patient will follow in approximately 2 weeks for reevaluation. Complications None
== END 2022-05-09 13:01 | disposition home or self-care (01) ==
LOC: SDC 09:56 → AC 10:56
PROVIDERS: Referring Provider Anesthesiology Pain Medicine; Visit Provider Anesthesiology Pain Medicine
PROC: 3E0S3BZ Introduction of Anesthetic Agent into Epidural Space, Percutaneous Approach (ICD-10-PCS; CPT 62282; principal; 2022-05-09 11:45)
DX: M51.17 Intervertebral disc disorders with radiculopathy, lumbosacral region (principal); J44.9 Chronic obstructive pulmonary disease, unspecified; I11.0 Hypertensive heart disease with heart failure; I50.33 Acute on chronic diastolic (congestive) heart failure; I48.0 Paroxysmal atrial fibrillation; I48.92 Unspecified atrial flutter; Z68.42 Body mass index [BMI] 45.0-49.9, adult; M48.07 Spinal stenosis, lumbosacral region; I25.10 Atherosclerotic heart disease of native coronary artery without angina pectoris; I25.2 Old myocardial infarction; G47.33 Obstructive sleep apnea (adult) (pediatric); R63.5 Abnormal weight gain; F17.210 Nicotine dependence, cigarettes, uncomplicated; Z86.718 Personal history of other venous thrombosis and embolism; Z95.5 Presence of coronary angioplasty implant and graft; Z79.82 Long term (current) use of aspirin; Z79.899 Other long term (current) drug therapy; Z79.01 Long term (current) use of anticoagulants
CPT/HCPCS: 62323; 01992; 36416; 64483; 77003; 85610; J7120; J3490

== ENCOUNTER 2023-11-16 10:30 | Outpatient (RCR) | payer OTHER, SELFPAY ==
[2019-07-19 12:16] VITALS: BMI 49.4
[2023-10-26 10:09] VITALS: BP 159/96; PULSE 75; RESP 18; TEMP 35.9
--- NOTE | 2023-10-26 12:00 | PCM.WC.HP ---
History of Present Illness Date of Service: 10/26/23 Chief Complaint: Left lower extremity ulcer History of Wound: Mr. Ruelas is a 63-year-old who was referred to the wound center by his primary care physician due to nonhealing left lower extremity ulcer. Noted this about 6 weeks ago. No known precipitating factor. He had attempted use of an antibiotic ointment and some other measures at home without any significant improvement. Due to pain/burning, has not been wearing his compression. Sleeps in a recliner due to back surgery and chronic back pain. History of CAD and tobacco use. No known history of diabetes, recent A1c within range per patient. He states that he recently had labs done ordered by his PCP. He feels well otherwise, no chills, fever or change in bowel habit. [facility] Medical History (Updated 10/26/23 @ 12:[address] Aniket Hoyt MD) Varicose veins of both legs with edema Ulcer of left lower extremity with fat layer exposed History of ST elevation myocardial infarction (STEMI) (03/03/19) Inability to ambulate due to multiple joints Acute gout Wears glasses Ambulates with cane Arthritis History of Walker's palsy Nicotine vapor product user Shortness of breath on exertion History of edema History of steroid therapy Atherosclerosis of coronary artery of [place] heart without angina pectoris Diastolic congestive heart failure Cardiac dysrhythmia Paroxysmal atrial fibrillation Diastolic dysfunction with acute on chronic heart failure Paroxysmal atrial flutter Cardiopulmonary arrest (08/20/18) History of deep vein thrombosis (DVT) of lower extremity Nicotine dependence Chronic pain Obstructive sleep apnea COPD (chronic obstructive pulmonary disease) Failed back syndrome of lumbar spine Degeneration of intervertebral disc of lumbosacral region Sacrococcygeal disorders, not elsewhere classified Morbid obesity Sacroiliitis, not elsewhere classified Essential (primary) hypertension Home Medications ?Medication ?Instructions ?Recorded ?Last Taken ?Type fluticasone propionate 50 1 spray NASAL DAILY PRN PRN 09/27/18 1 Week Ago History mcg/actuation nasal Allergies ~11/24/21 spray,suspension furosemide 40 mg tablet 40 mg PO BID #60 tabs 09/28/18 12/01/21 Rx aspirin 81 mg tablet,delayed 81 mg PO DAILY@0800 03/05/19 12/18/21 Rx release atorvastatin 80 mg tablet 80 mg PO QHS #30 tabs 03/05/19 12/01/21 Rx albuterol sulfate 90 mcg/actuation 1 - 2 puff inhalation Q4H PRN PRN 02/19/20 1 Week Ago History aerosol inhaler Asthma ~11/24/21 carvedilol 6.25 mg tablet 6.25 mg PO BID heart 02/19/20 05/09/22 History amlodipine 5 mg tablet 5 mg PO DAILY 12/01/21 05/09/22 History hydralazine 50 mg tablet 50 mg PO BID 12/01/21 05/09/22 History hydrocodone 7.5 mg-acetaminophen 1 tab PO TID PRN Pain 12/01/21 Unknown History 325 mg tablet potassium chloride 20 mEq 20 meq PO DAILY 12/01/21 12/01/21 History tablet,extended release(part/cryst) (Klor-Con M) sildenafil (pulm.hypertension) 20 20 mg PO TID PRN HTN 12/01/21 Unknown History mg tablet trazodone 50 mg tablet 50 mg PO QHS PRN Sleep 12/01/21 Unknown History allopurinol 100 mg tablet 100 mg PO DAILYCM 30 days #30 tabs 12/02/21 Unknown Rx lisinopril 40 mg tablet 40 mg PO DAILY blood pressure 12/28/21 05/09/22 History warfarin 4 mg tablet 4 mg PO SUMOWETHSA 12/28/21 05/04/22 History warfarin 4 mg tablet 6 mg PO TUFR 12/28/21 05/04/22 History cephalexin 250 mg capsule 250 mg PO BID 03/24/23 Unknown History sotalol 80 mg tablet 80 mg PO BID bp,heart #180 tabs 03/24/23 Unknown Rx cholecalciferol (vitamin D3) 50 50 mcg PO DAILY 10/26/23 Unknown History mcg (2,000 unit) capsule (Vitamin D3) clonidine HCl 0.1 mg tablet 0.1 mg PO BID 10/26/23 Unknown History doxycycline hyclate 100 mg capsule 100 mg PO BID 10/26/23 Unknown History fluticasone 250 mcg-salmeterol 50 1 ea inhalation BID 10/26/23 Unknown History mcg/dose blistr powdr for inhalation lidocaine 4 % topical cream topical TID PRN PRN pain 10/26/23 Unknown History Allergy/AdvReac Type Severity Reaction Status Date / Time Penicillins Allergy Hives Verified 03/24/23 13:31 pregabalin (From Lyrica) Allergy Hives Verified 03/24/23 13:31 red dye Allergy Angioedema Verified 03/24/23 13:31 Family History (Reviewed 03/24/23 @ 13:37 by Lien Cortes SENIOR WATER RESOURCES ENGINEER, SENIOR WATER RESOURCES ENGINEER-C) Mother CVA (cerebral vascular accident) Father , Murdered per patient No problems noted. Surgical History History of back surgery History of coronary artery stent placement (03/03/19) History of total knee arthroplasty History of total hip arthroplasty Social History household members: significant other Smoking Status: Light Smoker (<10/day) alcohol intake: never substance use type: does not use ROS Constitutional Constitutional: Denies body ache(s), change in weight, fatigue, frequent falls, headache(s), increased appetite or poor appetite Eyes Eyes: Denies change in eye color, change in vision, discharge from eye(s), discongugate gaze, double vision or exophthalmos ENT HEENT: Denies ear discharge, epistaxis, facial pain, foreign body in nose, halitosis, headache(s) or mouth pain Cardiovascular Cardiovascular: Denies chest pain at rest, cyanosis, diaphoresis, dizziness or dyspnea at rest Respiratory/Chest Respiratory/Chest: Denies chest tightness, difficulty clearing secretions, excessive phlegm production, hemoptysis, hoarseness or inability to speak Gastrointestinal Gastrointestinal: Denies chewing difficulty, coffee ground emesis, cramping, dry heaves, dysphagia or excessive flatus Genitourinary Genitourinary: Denies abdominal discomfort, burning urination, flank pain or urinary incontinence Musculoskeletal Musculoskeletal: Reports back pain; Denies loss of height, muscle cramps, muscle weakness or tremors Integumentary Integumentary: Reports wounds; Denies erythema, furuncle, hirsutism, jaundice or pruritus Neurologic Neurologic: Reports burning sensations; Denies convulsions, disequilibrium, dizziness, focal weakness, frequent falls or headache(s) Psychiatric Psychiatric: Denies auditory hallucinations, behavioral changes, change in appetite, cognitive impairment, confusion or hallucinations Endocrine Endocrinology: Denies cold intolerance, deepening of the voice, excessive sweating, flushing, heat intolerance or increase in ring/shoe/hat size Hematologic/Lymphatic Hematologic/Lymphatic: Denies easy bleeding or easy bruising Allergic/Immunologic Allergic/Immunologic: Denies itchy eyes, lip swelling, rhinitis, throat swelling, tongue swelling, hives or wheezing Vital Signs Vital Signs Vital Signs: 10/26/23 10:09 Temperature 96.6 F L Temperature Source Temporal Pulse Rate 75 Respiratory Rate 18 Blood Pressure 159/96 H Blood Pressure Mean 117 Blood Pressure Source Monitor Blood Pressure Position Sitting Blood Pressure Location Left Arm Oxygen Delivery Method Room Air Physical Exam Const alert, oriented x3 and no apparent distress General Appearance: cooperative and well kempt HEENT normocephalic, head/scalp atraumatic and hearing grossly normal bilaterally Eyes EOMs intact bilaterally General Eye: normal appearance of both eyes Neck full ROM and supple General: normal visual inspection Resp normal respiratory effort and normal air movement Effort and Inspection: able to speak in complete sentences Cardio regular rate, regular rhythm, S1 normal heart sound and S2 normal heart sound GI soft to palpation and non-tender Extremity General Extremity: edema Skin Wounds: wounds noted bed beefy red, margins well defined, no odor and open Neuro oriented x3, CN's II-XII intact bilaterally, moves all extremities and no focal motor deficits Psych mental status grossly normal, thought process normal, cooperative, affect normal and speech normal Debridement Note Debridement Note Wound debrided: Left lower extremity (lateral) Type of Debridement: Excisional debridement Anesthesia Used: 4% Lidocaine Solution Depth: Down to and including healthy tissue and in the subcutaneous layer Percentage of wound debrided: 100 Instrument Used: 5mm curette Tissue Removed: Devitalized tissue Severity: Fat Layer Exposed Amount of bleeding with debridement: Mild Bleeding Controlled with: Pressure Patient tolerated procedure: Patient tolerated procedure well Post-Debridement Measurements and Additional Note: Post-Debridement Measurements/Treatment - Nurse 1 - General Ulcer Assessment Start: 10/26/23 10:09 Freq: Status: Active Protocol: VIKASH Activity Type Activity Date Activity User E-sign Co-sign Detail Recorded Client Recorded Date Recorded By Document 10/26/23 10:09 DENISE xfh 10/26/23 10:18 KW 10/26/23 10:09 CANDELARIA - Today's Visit Information Type of service Initial Visit Arrival Mode Ambulatory,Cane Patient Identification Verified (Name & Yes ) Vital Signs Temperature (97.8 F-99.1 F) 96.6 F L Temperature Source Temporal Pulse Rate (60-100) 75 Pulse Location Monitor Respiratory Rate (12-18) 18 Respiratory rate source Observation Oxygen Delivery Method Room Air Blood Pressure (90/60-120/80) 159/96 H Blood Pressure Mean 117 Source Monitor Position Sitting Blood Pressure Location Left Arm History Since Last Visit- (Skip if this is Patient's initial visit) Left Footwear Regular Shoe Right Footwear Regular Shoe Pain Scale: 0-10 Numeric Is Patient Pain Free? Yes Lower Extremity Assessment/ Foot Assessment/ Toe Nail Assessment Right -Posterior Tibial Palpable Yes -Posterior Tibial Doppler Multiphasic -Dorsalis Pedis Palpable Yes -Dorsalis Pedis Doppler Multiphasic -Hair Growth on Legs No -Hair Growth on Toes No -Thick Yes -Discolored Yes -Deformed No -Improper Length & Hygeine No Left -Posterior Tibial Palpable Yes -Posterior Tibial Doppler Monophasic -Dorsalis Pedis Palpable Yes -Dorsalis Pedis Doppler Multiphasic -Hair Growth on Legs No -Hair Growth on Toes No -Thick Yes -Discolored Yes -Deformed No -Improper Length & Hygeine No Communication Assessment Preferred language Arabic Inspector Cold Working Required No Able to Read Yes Able to Write Yes Communication Tools None Caregiver Communication Skills No Impairment Impairment Right Hearing Abillity Normal Left Hearing Abillity Normal Visual Assistive Devices None Teaching Assessment Preferences Verbal,Written, Demonstration Barriers to Learning None Readiness To Learn Excellent Willingness to Engage in Self Management High Activies Readiness to Engage in Self Management High Activities Anxiety Level Calm Cooperation Cooperative Perception Coherent Interest in Health Problem Asks Questions Education Importance Acknowledges Need Does Patient Smoke tobacco or other Yes substances Smoking Status Light Smoker (< 10/day) Is Patient Diabetic No Functional Assessment Recent Decline in Ability to Perform Denies Any Declines Culture/Jehovah'S Witness/Hydraulic Miner Cultural/Jehovah'S Witness Needs that may affect No Treatment Plan Would you allow our hospital packing tractor machine operator to No meet you for the purpose of spiritual/ emotional support? Hydraulic Miner to contact place of holiness No WC - Nurse 1 - General Ulcer Measurement Start: 10/26/23 10:09 Freq: Status: Active Protocol: Activity Type Activity Date Activity User E-sign Co-sign Detail Recorded Client Recorded Date Recorded By Document 10/26/23 10:09 KW xfh 10/26/23 10:18 KW 10/26/23 10:09 Wound Center Nurse 1 #2 LT LAT LE -Current Size (cm) - Length 4.6 -Current Size (cm) - Width 3 -Current Size (cm) - Depth 0.1 -Total Square Cm 13.8 -Date of Last Picture (Recall this 10/26/23 field) -Exudate Type Serosanguineous -Wound Margin Distinct, Outline Attached -Granulation Amt Large (67-100%) -Granulation Quality Red -Texture (Kiera-wound Skin Appearance) Assessed -Moisture (Kiera-wound Skin Appearance) Assessed -Color (Kiera-wound Skin Appearance) Assessed -Temperature (Kiera-wound Skin No Abnormality Appearance) (Pt Warm) -Tenderness on Palpation (Kiera-wound No Skin Appearance) -Ulcer Cleansing Rinsed/ Irrigated with Saline -Foul Odor after Cleansing No -Anesthetic Used 5% Lidocaine Gel Right Calf (cm) 48 Right Ankle (cm) 30.5 Left Calf (cm) 51.2 Left Ankle (cm) 32.5 CANDELARIA - Nurse 2 - General Ulcer CM Notes Start: 10/26/23 10:09 Freq: Status: Active Protocol: Activity Type Activity Date Activity User E-sign Co-sign Detail Recorded Client Recorded Date Recorded By Document 10/26/23 10:28 [facility] 10/26/23 10:32 10/26/23 10:28 Wound Center Nurse 2 #2 LT LAT LE -Time 10:29 -Correct Patient Yes -Correct Side, Site, Position Yes -Correct Procedure Yes -Procedure Performed Yes -Type of Procedure Debridement -Clinical Debridement Subcutaneous -Tissue Removed Subcutaneous -Post Debridement (cm) - Length 4.5 -Post Debridement (cm) - Width 3.0 -Post Debridement (cm) - Depth 0.1 -Total Square (Post) (cm) 13.50 -Area of Debridement (cm) - Length 4.5 -Area of Debridement (cm) - Width 3.0 -Total Square (Area) (cm) 13.50 -Tunneling No -Undermining/Tunneling No -Circular Undermining No -Wound/Ulcer Outcome Not Healed -Ulcer Cleansing Rinsed/ Irrigated with Saline -Foul Odor after Cleansing No -Bioengineered Tissue No -Bleeding Controlled with Pressure -Treatment Response Procedure Tolerated Well -Debridement - Subq, 1st 20sq cm Yes Pain Scale: 0-10 Numeric Is Patient Pain Free? Yes - Nurse 3 - General Ulcer D/C NN Start: 10/26/23 10:09 Freq: Status: Active Protocol: Activity Type Activity Date Activity User E-sign Co-sign Detail Recorded Client Recorded Date Recorded By Document 10/26/23 11:07 RB wound 10/26/23 11:08 RB 10/26/23 11:07 Wound Care Center Nurse 3 #2 LT LAT LE -Primary Dressing Applied Fibracol Plus 4x4,Mepilex Border, NonAdherent Contact Layer -Fibracol Plus 4x4 2 -Mepilex Border 2 Left -Tubular Bandage Double Layer -Size of Tubigrip Used Size F -Size F ($) 4 Treatment Response Procedure Tolerated Well Pain Scale: 0-10 Numeric Is Patient Pain Free? Yes Teaching: Wound Center Dressing Your Wound -Person Taught Patient -Teaching Method Discussion, Demonstration -Response to teaching Verbalize Understanding WC - Visit Discharge Discharge Condition Stable Ambulatory Status Ambulatory Transportation Private Auto Medication Reconcilliation completed & No provided to patient/care provider Clinical Summary of Care Provided Yes Charges/Coding Visit Charges Office Visits / Consults: [id number] OV L4 Est 30min Procedures Integumentary [id number]: [id number] Erin subq tissue 20 sq cm/< Assessment/Plan Assessment/Plan (1) Ulcer of left lower extremity with fat layer exposed: CODE(S): L97.922 - Non-pressure chronic ulcer of unspecified part of left lower leg with fat layer exposed (2) Varicose veins of both legs with edema: CODE(S): I83.893 - Varicose veins of bilateral lower extremities with other complications (3) Nicotine dependence: CODE(S): F17.200 - Nicotine dependence, unspecified, uncomplicated QUALIFIERS: Substance use status: in remission (4) Paroxysmal atrial fibrillation: CODE(S): I48.0 - Paroxysmal atrial fibrillation (5) 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 No cultures taken today, currently on antibiotics. Venous and arterial studies ordered, will review. Will start Fibracol daily, cover with Adaptic and gauze. Double layer Tubigrip for edema management. Leg elevation, exercise as tolerated and compliance with compression recommended. Adequate protein intake and smoking cessation also recommended, he voiced understanding. Follow-up in 2 weeks or sooner if needed. This note was generated with [employer]ancoation software. It may contain incorrect words, spelling, and punctuation that were not noted in checking the note before signing.
[2023-11-09 10:31] VITALS: BP 122/79; PULSE 68; RESP 16; TEMP 36.3
--- NOTE | 2023-11-09 11:14 | PN.PCM_ITS ---
History of Present Illness Date of Service: 11/09/23 Chief Complaint: Left lower extremity ulcer History of Wound: Mr. Ruelas is a 63-year-old who was referred to the wound center by his primary care physician due to nonhealing left lower extremity ulcer. Noted this about 6 weeks ago. No known precipitating factor. He had attempted use of an antibiotic ointment and some other measures at home without any significant improvement. Due to pain/burning, has not been wearing his compression. Sleeps in a recliner due to back surgery and chronic back pain. History of CAD and tobacco use. No known history of diabetes, recent A1c within range per patient. He states that he recently had labs done ordered by his PCP. He feels well otherwise, no chills, fever or change in bowel habit. Progress of Wound: No new concerns reported at this time. Improving. He states that he had his venous and arterial studies done last Monday, we have not received records. Objective Data Objective Data Vital Signs: Vital Signs Temp Pulse Resp BP O2 Del Method 97.3 F L 68 16 122/79 H Room Air 11/09/23 10:31 11/09/23 10:31 11/09/23 10:31 11/09/23 10:31 11/09/23 10:31 Oxygen Delivery Method Room Air Charges/Coding Procedures Integumentary 111xxx-113xx: [id number] Erin subq tissue 20 sq cm/< Physical Exam Const alert, oriented x3 and no apparent distress General Appearance: cooperative and well kempt HEENT normocephalic, head/scalp atraumatic and hearing grossly normal bilaterally Eyes EOMs intact bilaterally General Eye: normal appearance of both eyes Neck full ROM and supple General: normal visual inspection Resp normal respiratory effort Effort and Inspection: able to speak in complete sentences Extremity General Extremity: edema Skin Wounds: wounds noted size Size: See clinical note, bed granulating well, margins well defined, no odor and open Neuro oriented x3, CN's II-XII intact bilaterally, moves all extremities and no focal motor deficits Psych mental status grossly normal, thought process normal, cooperative, affect normal and speech normal Debridement Note Debridement Note Wound debrided: Left lower extremity (lateral) Type of Debridement: Excisional debridement Anesthesia Used: 4% Lidocaine Solution Depth: Down to and including healthy tissue and in the subcutaneous layer Percentage of wound debrided: 100 Instrument Used: 5mm curette Tissue Removed: Slough and devitalized tissue Severity: Fat Layer Exposed Amount of bleeding with debridement: Mild Bleeding Controlled with: Pressure Patient tolerated procedure: Patient tolerated procedure well Post-Debridement Measurements and Additional Note: Post-Debridement Measurements/Treatment - Nurse 1 - General Ulcer Assessment Start: 10/26/23 10:09 Freq: Status: Active Protocol: [email or web address] Activity Type Activity Date Activity User E-sign Co-sign Detail Recorded Client Recorded Date Recorded By Document 10/26/23 10:09 KW xfh 10/26/23 10:18 KW Document 11/09/23 10:31 KW [id number] 11/09/23 10:39 KW 10/26/23 11/09/23 10:09 10:31 - Today's Visit Information Type of service Initial Visit Follow-up Visit (Physician/[employer]ICER ) Arrival Mode Ambulatory,Cane Ambulatory Patient Identification Verified (Name & Yes Yes ) Vital Signs Temperature (97.8 F-99.1 F) 96.6 F L 97.3 F L Temperature Source Temporal Temporal Pulse Rate (60-100) 75 68 Pulse Location Monitor Monitor Respiratory Rate (12-18) 18 16 Respiratory rate source Observation Observation Oxygen Delivery Method Room Air Room Air Blood Pressure (90/60-120/80) 159/96 H 122/79 H Blood Pressure Mean (mm Hg) 117 93 Source Monitor Monitor Position Sitting Semi-Fowlers Blood Pressure Location Left Arm Left Arm History Since Last Visit- (Skip if this is Patient's initial visit) Have you changed medications since your No last visit? Any new allergies or adverse reactions No Had a fall/change in ADL's that may No increase risk of falls Signs or symptoms of abuse and/or No neglect since last visit Have you been in the hospital since your No last visit? Has dressing in place as prescribed Yes Has compression in place as prescribed Yes Has offloadiing in place as prescribed N/A Experienced any changes in pain level or No management Left Footwear Regular Shoe Regular Shoe Right Footwear Regular Shoe Regular Shoe Pain Scale: 0-10 Numeric Is Patient Pain Free? Yes Yes Lower Extremity Assessment/ Foot Assessment/ Toe Nail Assessment Right -Posterior Tibial Palpable Yes -Posterior Tibial Doppler Multiphasic -Dorsalis Pedis Palpable Yes -Dorsalis Pedis Doppler Multiphasic -Hair Growth on Legs No -Hair Growth on Toes No -Thick Yes -Discolored Yes -Deformed No -Improper Length & Hygeine No Left -Posterior Tibial Palpable Yes -Posterior Tibial Doppler Monophasic -Dorsalis Pedis Palpable Yes -Dorsalis Pedis Doppler Multiphasic -Hair Growth on Legs No -Hair Growth on Toes No -Thick Yes -Discolored Yes -Deformed No -Improper Length & Hygeine No Communication Assessment Preferred language Kazakh Quilting 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 Required No Able to Read Yes Able to Write Yes Communication Tools None Caregiver Communication Skills No Impairment Impairment Right Hearing Abillity Normal Left Hearing Abillity Normal Visual Assistive Devices None Teaching Assessment Preferences Verbal,Written, Demonstration Barriers to Learning None Readiness To Learn Excellent Willingness to Engage in Self Management High Activies Readiness to Engage in Self Management High Activities Anxiety Level Calm Cooperation Cooperative Perception Coherent Interest in Health Problem Asks Questions Education Importance Acknowledges Need Does Patient Smoke tobacco or other Yes substances Smoking Status Light Smoker (< 10/day) Is Patient Diabetic No Functional Assessment Recent Decline in Ability to Perform Denies Any Declines 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 Speech And Language Tutor to contact place of druze No WC - Nurse 1 - General Ulcer Measurement Start: 10/26/23 10:09 Freq: Status: Active Protocol: Activity Type Activity Date Activity User E-sign Co-sign Detail Recorded Client Recorded Date Recorded By Document 10/26/23 10:09 KW xfh 10/26/23 10:18 KW Document 11/09/23 10:31 KW [id number] 11/09/23 10:39 KW 10/26/23 11/09/23 10:09 10:31 Wound Center Nurse 1 #2 LT LAT LE -Current Size (cm) - Length 4.6 5 -Current Size (cm) - Width 3 3.2 -Current Size (cm) - Depth 0.1 0.1 -Total Square Cm 13.8 16.0 -Date of Last Picture (Recall this 10/26/23 field) -Exudate Amt Small -Exudate Type Serosanguineous Serosanguineous -Wound Margin Distinct, Distinct, Outline Outline Attached Attached -Granulation Amt Large (67-100%) Medium (34-66%) -Granulation Quality Red Red -Necrosis Amt Medium (34-66%) -Necrotic Tissue Type Adherent Slough -Texture (Kiera-wound Skin Appearance) Assessed Assessed -Moisture (Kiera-wound Skin Appearance) Assessed Assessed -Color (Kiera-wound Skin Appearance) Assessed Assessed -Temperature (Kiera-wound Skin No Abnormality No Abnormality Appearance) (Pt Warm) (Pt Warm) -Tenderness on Palpation (Kiera-wound No No Skin Appearance) -Ulcer Cleansing Rinsed/ Rinsed/ Irrigated with Irrigated with Saline Saline -Foul Odor after Cleansing No No -Anesthetic Used 5% Lidocaine 5% Lidocaine Gel Gel Right Calf (cm) 48 Right Ankle (cm) 30.5 Left Calf (cm) 51.2 53.5 Left Ankle (cm) 32.5 32 - Nurse 2 - General Ulcer CM Notes Start: 10/26/23 10:09 Freq: Status: Active Protocol: Activity Type Activity Date Activity User E-sign Co-sign Detail Recorded Client Recorded Date Recorded By Document 10/26/23 10:28 GM wc 10/26/23 10:32 GM Document 11/09/23 10:45 [id number] 11/09/23 10:50 GM 10/26/23 11/09/23 10:28 10:45 Wound Center Nurse 2 #2 LT LAT LE -Time 10:29 10:45 -Correct Patient Yes Yes -Correct Side, Site, Position Yes Yes -Correct Procedure Yes Yes -Procedure Performed Yes Yes -Type of Procedure Debridement Debridement -Clinical Debridement Subcutaneous Subcutaneous -Tissue Removed Subcutaneous Subcutaneous -Post Debridement (cm) - Length 4.5 4.5 -Post Debridement (cm) - Width 3.0 2.5 -Post Debridement (cm) - Depth 0.1 0.1 -Total Square (Post) (cm) 13.50 11.25 -Area of Debridement (cm) - Length 4.5 4.5 -Area of Debridement (cm) - Width 3.0 2.5 -Total Square (Area) (cm) 13.50 11.25 -Tunneling No No -Undermining/Tunneling No No -Circular Undermining No No -Wound/Ulcer Outcome Not Healed Not Healed -Ulcer Cleansing Rinsed/ Rinsed/ Irrigated with Irrigated with Saline Saline -Foul Odor after Cleansing No No -Bioengineered Tissue No No -Bleeding Controlled with Pressure Pressure -Treatment Response Procedure Procedure Tolerated Well Tolerated Well -Debridement - Subq, 1st 20sq cm Yes Yes Pain Scale: 0-10 Numeric Is Patient Pain Free? Yes Yes WC - Nurse 3 - General Ulcer D/C NN Start: 10/26/23 10:09 Freq: Status: Active Protocol: Activity Type Activity Date Activity User E-sign Co-sign Detail Recorded Client Recorded Date Recorded By Document 10/26/23 11:07 RB wound 10/26/23 11:08 RB Document 11/09/23 11:02 [id number] 11/09/23 11:03 10/26/23 11/09/23 11:07 11:02 Wound Care Center Nurse 3 #2 LT LAT LE -Ulcer Cleansing Not Cleansed -Foul Odor after Cleansing No -Primary Dressing Applied Fibracol Plus Fibracol Plus 4x4,Mepilex 4x4,Mepilex Border, Border, NonAdherent NonAdherent Contact Layer Contact Layer -Fibracol Plus 4x4 2 1 -Mepilex Border 2 1 Left -Tubular Bandage Double Layer Single Layer -Size of Tubigrip Used Size F Size F -Size F ($) 4 1 Treatment Response Procedure Tolerated Well Pain Scale: 0-10 Numeric Is Patient Pain Free? Yes Yes Teaching: Wound Center Dressing Your Wound -Person Taught Patient -Teaching Method Discussion, Demonstration -Response to teaching Verbalize Understanding WC - Visit Discharge Discharge Condition Stable Stable Ambulatory Status Ambulatory Ambulatory Transportation Private Auto Private Auto Medication Reconcilliation completed & No provided to patient/care provider Clinical Summary of Care Provided Yes Yes Assessment/Plan Assessment/Plan (1) Ulcer of left lower extremity with fat layer exposed: CODE(S): L97.922 - Non-pressure chronic ulcer of unspecified part of left lower leg with fat layer exposed (2) Varicose veins of both legs with edema: CODE(S): I83.893 - Varicose veins of bilateral lower extremities with other complications (3) Nicotine dependence: CODE(S): F17.200 - Nicotine dependence, unspecified, uncomplicated QUALIFIERS: Substance use status: in remission (4) Paroxysmal atrial fibrillation: CODE(S): I48.0 - Paroxysmal atrial fibrillation (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 Some improvement noted. Still on antibiotics. Continue Fibracol daily, cover with Adaptic and gauze. Double layer Tubigrip for edema management for now, he states that he has prescription compression stockings at home. Leg elevation, exercise as tolerated and compliance with compression recommended. Adequate protein intake and smoking cessation also recommended, he voiced understanding. Follow-up in a week or sooner if needed. This note was generated with [employer] dictation software. It may contain incorrect words, spelling, and punctuation that were not noted in checking the note before signing.
[2023-11-16 10:41] VITALS: BP 135/84; PULSE 70; RESP 16; TEMP 35.7
--- NOTE | 2023-11-16 11:23 | PCM.WC.PN ---
History of Present Illness Date of Service: 11/16/23 Chief Complaint: Left lower extremity ulcer History of Wound: Mr. Ruelas is a 63-year-old who was referred to the wound center by his primary care physician due to nonhealing left lower extremity ulcer. Noted this about 6 weeks ago. No known precipitating factor. He had attempted use of an antibiotic ointment and some other measures at home without any significant improvement. Due to pain/burning, has not been wearing his compression. Sleeps in a recliner due to back surgery and chronic back pain. History of CAD and tobacco use. No known history of diabetes, recent A1c within range per patient. He states that he recently had labs done ordered by his PCP. He feels well otherwise, no chills, fever or change in bowel habit. Progress of Wound: No new concerns reported. Improving. He states that his compression stockings at home were too tight and so he resorted to the Tubigrip. Objective Data Objective Data Vital Signs: Vital Signs Temp Pulse Resp BP O2 Del Method 96.2 F L 70 16 135/84 H Room Air 11/16/23 10:41 11/16/23 10:41 11/16/23 10:41 11/16/23 10:41 11/16/23 10:41 Oxygen Delivery Method Room Air Charges/Coding Procedures Integumentary 111xxx-113xx: 05971 Erin subq tissue 20 sq cm/< Physical Exam Const alert, oriented x3 and no apparent distress General Appearance: cooperative and well kempt HEENT normocephalic, head/scalp atraumatic and hearing grossly normal bilaterally Eyes EOMs intact bilaterally General Eye: normal appearance of both eyes Neck full ROM and supple General: normal visual inspection Resp normal respiratory effort Effort and Inspection: able to speak in complete sentences Extremity General Extremity: edema Skin Wounds: wounds noted size Size: See clinical note, bed granulating well, margins well defined, no odor and open Neuro oriented x3, CN's II-XII intact bilaterally, moves all extremities and no focal motor deficits Psych mental status grossly normal, thought process normal, cooperative, affect normal and speech normal Debridement Note Debridement Note Wound debrided: Left lower extremity Type of Debridement: Excisional debridement Anesthesia Used: 4% Lidocaine Solution Depth: Down to and including healthy tissue and in the subcutaneous layer Percentage of wound debrided: 100 Instrument Used: 5mm curette Tissue Removed: Slough and devitalized tissue Severity: Fat Layer Exposed Amount of bleeding with debridement: Mild Bleeding Controlled with: Pressure Patient tolerated procedure: Patient tolerated procedure well Post-Debridement Measurements and Additional Note: Post-Debridement Measurements/Treatment - Nurse 1 - General Ulcer Assessment Start: 10/26/23 10:09 Freq: Status: Active Protocol: CANDELARIA.ROBERT Activity Type Activity Date Activity User E-sign Co-sign Detail Recorded Client Recorded Date Recorded By Document 10/26/23 10:09 KW xfh 10/26/23 10:18 KW Document 11/09/23 10:31 KW [id number] 11/09/23 10:39 KW Document 11/16/23 10:41 KW [id number] 11/16/23 10:52 KW 10/26/23 11/09/23 11/16/23 10:09 10:31 10:41 - Today's Visit Information Type of service Initial Visit Follow-up Visit Follow-up Visit (Physician/[employer]ORER (Physician/[employer]NA[employer]ORER ) ) Arrival Mode Ambulatory,Cane Ambulatory Ambulatory,Cane Patient Identification Verified (Name & Yes Yes Yes ) Vital Signs Temperature (97.8 F-99.1 F) 96.6 F L 97.3 F L 96.2 F L Temperature Source Temporal Temporal Temporal Pulse Rate (60-100) 75 68 70 Pulse Location Monitor Monitor Monitor Respiratory Rate (12-18) 18 16 16 Respiratory rate source Observation Observation Observation Oxygen Delivery Method Room Air Room Air Room Air Blood Pressure (90/60-120/80) 159/96 H 122/79 H 135/84 H Blood Pressure Mean (mm Hg) 117 93 101 Source Monitor Monitor Monitor Position Sitting Semi-Fowlers Semi-Fowlers Blood Pressure Location Left Arm Left Arm Left Arm History Since Last Visit- (Skip if this is Patient's initial visit) Have you changed medications since your No No last visit? Any new allergies or adverse reactions No No Had a fall/change in ADL's that may No No increase risk of falls Signs or symptoms of abuse and/or No No neglect since last visit Have you been in the hospital since your No No last visit? Has dressing in place as prescribed Yes Yes Has compression in place as prescribed Yes Yes Has offloadiing in place as prescribed N/A N/A Experienced any changes in pain level or No No management Left Footwear Regular Shoe Regular Shoe Regular Shoe Right Footwear Regular Shoe Regular Shoe Regular Shoe Pain Scale: 0-10 Numeric Is Patient Pain Free? Yes Yes Yes Lower Extremity Assessment/ Foot Assessment/ Toe Nail Assessment Right -Posterior Tibial Palpable Yes -Posterior Tibial Doppler Multiphasic -Dorsalis Pedis Palpable Yes -Dorsalis Pedis Doppler Multiphasic -Hair Growth on Legs No -Hair Growth on Toes No -Thick Yes -Discolored Yes -Deformed No -Improper Length & Hygeine No Left -Posterior Tibial Palpable Yes -Posterior Tibial Doppler Monophasic -Dorsalis Pedis Palpable Yes -Dorsalis Pedis Doppler Multiphasic -Hair Growth on Legs No -Hair Growth on Toes No -Thick Yes -Discolored Yes -Deformed No -Improper Length & Hygeine No Communication Assessment Preferred language [place] 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 Able to Read Yes Able to Write Yes Communication Tools None Caregiver Communication Skills No Impairment Impairment Right Hearing Abillity Normal Left Hearing Abillity Normal Visual Assistive Devices None Teaching Assessment Preferences Verbal,Written, Demonstration Barriers to Learning None Readiness To Learn Excellent Willingness to Engage in Self Management High Activies Readiness to Engage in Self Management High Activities Anxiety Level Calm Cooperation Cooperative Perception Coherent Interest in Health Problem Asks Questions Education Importance Acknowledges Need Does Patient Smoke tobacco or other Yes substances Smoking Status Light Smoker (< 10/day) Is Patient Diabetic No Functional Assessment Recent Decline in Ability to Perform Denies Any Declines Culture/Mormonism/Director Of Public Health Cultural/Mormonism Needs that may affect No Treatment Plan Would you allow our hospital lead section supervisor to No meet you for the purpose of spiritual/ emotional support? Director Of Public Health to contact place of mosque No WC - Nurse 1 - General Ulcer Measurement Start: 10/26/23 10:09 Freq: Status: Active Protocol: Activity Type Activity Date Activity User E-sign Co-sign Detail Recorded Client Recorded Date Recorded By Document 10/26/23 10:09 KW xfh 10/26/23 10:18 KW Document 11/09/23 10:31 KW [id number] 11/09/23 10:39 KW Document 11/16/23 10:41 KW [id number] 11/16/23 10:52 KW 10/26/23 11/09/23 11/16/23 10:09 10:31 10:41 Wound Center Nurse 1 #2 LT LAT LE -Current Size (cm) - Length 4.6 5 4.5 -Current Size (cm) - Width 3 3.2 2.4 -Current Size (cm) - Depth 0.1 0.1 0.1 -Total Square Cm 13.8 16.0 10.80 -Date of Last Picture (Recall this 10/26/23 field) -Exudate Amt Small Small -Exudate Type Serosanguineous Serosanguineous Serosanguineous -Wound Margin Distinct, Distinct, Distinct, Outline Outline Outline Attached Attached Attached -Granulation Amt Large (67-100%) Medium (34-66%) Large (67-100%) -Granulation Quality Red Red [place],Red -Necrosis Amt Medium (34-66%) Small (1-33%) -Necrotic Tissue Type Adherent Slough Adherent Slough -Texture (Kiera-wound Skin Appearance) Assessed Assessed Assessed -Moisture (Kiera-wound Skin Appearance) Assessed Assessed Assessed -Color (Kiera-wound Skin Appearance) Assessed Assessed Assessed -Temperature (Kiera-wound Skin No Abnormality No Abnormality No Abnormality Appearance) (Pt Warm) (Pt Warm) (Pt Warm) -Tenderness on Palpation (Kiera-wound No No No Skin Appearance) -Ulcer Cleansing Rinsed/ Rinsed/ Rinsed/ Irrigated with Irrigated with Irrigated with Saline Saline Saline -Foul Odor after Cleansing No No No -Anesthetic Used 5% Lidocaine 5% Lidocaine 5% Lidocaine Gel Gel Gel Right Calf (cm) 48 Right Ankle (cm) 30.5 Left Calf (cm) 51.2 53.5 Left Ankle (cm) 32.5 32 WC - Nurse 2 - General Ulcer CM Notes Start: 10/26/23 10:09 Freq: Status: Active Protocol: Activity Type Activity Date Activity User E-sign Co-sign Detail Recorded Client Recorded Date Recorded By Document 10/26/23 10:28 [facility] 10/26/23 10:32 Document 11/09/23 10:45 [id number] 11/09/23 10:50 Document 11/16/23 11:00 [id number] 11/16/23 11:03 10/26/23 11/09/23 11/16/23 10:28 10:45 11:00 Wound Center Nurse 2 #2 LT LAT LE -Time 10: 10:45 11:00 -Correct Patient Yes Yes Yes -Correct Side, Site, Position Yes Yes Yes -Correct Procedure Yes Yes Yes -Procedure Performed Yes Yes Yes -Type of Procedure Debridement Debridement Debridement -Clinical Debridement Subcutaneous Subcutaneous Subcutaneous -Tissue Removed Subcutaneous Subcutaneous Subcutaneous -Post Debridement (cm) - Length 4.5 4.5 4.0 -Post Debridement (cm) - Width 3.0 2.5 2.3 -Post Debridement (cm) - Depth 0.1 0.1 0.1 -Total Square (Post) (cm) 13.50 11.25 9.20 -Area of Debridement (cm) - Length 4.5 4.5 4.0 -Area of Debridement (cm) - Width 3.0 2.5 2.3 -Total Square (Area) (cm) 13.50 11.25 9.20 -Tunneling No No No -Undermining/Tunneling No No No -Circular Undermining No No No -Wound/Ulcer Outcome Not Healed Not Healed Not Healed -Ulcer Cleansing Rinsed/ Rinsed/ Rinsed/ Irrigated with Irrigated with Irrigated with Saline Saline Saline -Foul Odor after Cleansing No No No -Bioengineered Tissue No No No -Bleeding Controlled with Pressure Pressure Pressure -Treatment Response Procedure Procedure Procedure Tolerated Well Tolerated Well Tolerated Well -Debridement - Subq, 1st 20sq cm Yes Yes Yes Pain Scale: 0-10 Numeric Is Patient Pain Free? Yes Yes Yes - Nurse 3 - General Ulcer D/C NN Start: 10/26/23 10:09 Freq: Status: Active Protocol: Activity Type Activity Date Activity User E-sign Co-sign Detail Recorded Client Recorded Date Recorded By Document 10/26/23 11:07 RB wound 10/26/23 11:08 RB Document 11/09/23 11:02 [id number] 11/09/23 11:03 Document 11/16/23 11:14 [id number] 11/16/23 11:14 10/26/23 11/09/23 11/16/23 11:07 11:02 11:14 Wound Care Center Nurse 3 #2 LT LAT LE -Ulcer Cleansing Not Cleansed -Foul Odor after Cleansing No -Primary Dressing Applied Fibracol Plus Fibracol Plus Fibracol Plus 4x4,Mepilex 4x4,Mepilex 4x4,Mepilex Border, Border, Border NonAdherent NonAdherent Contact Layer Contact Layer -Fibracol Plus 4x4 2 1 1 -Mepilex Border 2 1 1 Left -Tubular Bandage Double Layer Single Layer -Size of Tubigrip Used Size F Size F -Size F ($) 4 1 Treatment Response Procedure Tolerated Well Pain Scale: 0-10 Numeric Is Patient Pain Free? Yes Yes Yes Teaching: Wound Center Dressing Your Wound -Person Taught Patient -Teaching Method Discussion, Demonstration -Response to teaching Verbalize Understanding WC - Visit Discharge Discharge Condition Stable Stable Ambulatory Status Ambulatory Ambulatory Transportation Private Auto Private Auto Medication Reconcilliation completed & No provided to patient/care provider Clinical Summary of Care Provided Yes Yes Assessment/Plan Assessment/Plan (1) Ulcer of left lower extremity with fat layer exposed: CODE(S): L97.922 - Non-pressure chronic ulcer of unspecified part of left lower leg with fat layer exposed (2) Varicose veins of both legs with edema: CODE(S): I83.893 - Varicose veins of bilateral lower extremities with other complications (3) Nicotine dependence: CODE(S): F17.200 - Nicotine dependence, unspecified, uncomplicated QUALIFIERS: Substance use status: in remission (4) Paroxysmal atrial fibrillation: CODE(S): I48.0 - Paroxysmal atrial fibrillation (5) retirement (current) use of anticoagulants: CODE(S): Z79.01 - retirement (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 Improving. Venous and arterial studies done at an outside facility reviewed. JOS[facility] MIGUEL within normal range. Venous studies suggestive of venous insufficiency and an incidental finding of a large left inguinal lymph node. Faxed over to his PCP for further workup of inguinal lymph node. Consider referral to vascular surgery due to chronic history of varicose veins and venous insufficiency, high risk for recurrence. As above, did not tolerate his compression at home so resorted to the Tubigrip, he was advised that good compression is necessary for continued wound healing. He is not open to at this time, reevaluate at next visit. He states that he would go back to his compression at home. Continue Fibracol daily, cover with Adaptic and gauze. Leg elevation, exercise as tolerated and compliance with compression strongly recommended. Adequate protein intake and smoking cessation also recommended, he voiced understanding. Follow-up in a week or sooner if needed. This note was generated with [employer] software. It may contain incorrect words, spelling, and punctuation that were not noted in checking the note before signing.
== END 2023-11-18 23:59 | disposition home or self-care (01) ==
LOC: WC 10:30
PROVIDERS: Visit Provider Internal Medicine
DX: L97.822 Non-pressure chronic ulcer of other part of left lower leg with fat layer exposed (principal); I11.0 Hypertensive heart disease with heart failure; I50.32 Chronic diastolic (congestive) heart failure; J44.9 Chronic obstructive pulmonary disease, unspecified; I48.0 Paroxysmal atrial fibrillation; I83.893 Varicose veins of bilateral lower extremities with other complications; I25.10 Atherosclerotic heart disease of native coronary artery without angina pectoris; M10.9 Gout, unspecified; G89.29 Other chronic pain; Z79.01 Long term (current) use of anticoagulants; Z79.82 Long term (current) use of aspirin; F17.200 Nicotine dependence, unspecified, uncomplicated; I25.2 Old myocardial infarction
CPT/HCPCS: 11042; 99213; G0463

== ENCOUNTER 2023-12-18 10:30 | Outpatient (RCR) | payer OTHER, SELFPAY ==
[2019-07-19 12:16] VITALS: BMI 49.4
[2023-11-19 00:30] VITALS: BP 135/84; PULSE 70; RESP 16; TEMP 35.7
[2023-11-23 10:29] VITALS: BP 155/97; PULSE 70; RESP 18; TEMP 35.9
--- NOTE | 2023-11-23 10:55 | PCM.WC.PN ---
History of Present Illness Date of Service: 11/23/23 Chief Complaint: Left lower extremity ulcer History of Wound: Mr. Ruelas is a 63-year-old who was referred to the wound center by his primary care physician due to nonhealing left lower extremity ulcer. Noted this about 6 weeks ago. No known precipitating factor. He had attempted use of an antibiotic ointment and some other measures at home without any significant improvement. Due to pain/burning, has not been wearing his compression. Sleeps in a recliner due to back surgery and chronic back pain. History of CAD and tobacco use. No known history of diabetes, recent A1c within range per patient. He states that he recently had labs done ordered by his PCP. He feels well otherwise, no chills, fever or change in bowel habit. Progress of Wound: No new concerns at this time. He states that he wore his compression stockings for a few hours during the day and then went back to the Tubigrip's. He still not open to 3M wraps. Improving. Objective Data Objective Data Vital Signs: Vital Signs Temp Pulse Resp BP O2 Del Method 96.7 F L 70 18 155/97 H Room Air 11/23/23 10:29 11/23/23 10:29 11/23/23 10:29 11/23/23 10:29 11/23/23 10:29 Oxygen Delivery Method Room Air Charges/Coding Procedures Integumentary 111xxx-113xx: [id number] Erin subq tissue 20 sq cm/< Physical Exam Const alert, oriented x3 and no apparent distress General Appearance: cooperative and well kempt HEENT normocephalic, head/scalp atraumatic and hearing grossly normal bilaterally Eyes EOMs intact bilaterally General Eye: normal appearance of both eyes Neck full ROM and supple General: normal visual inspection Resp normal respiratory effort Effort and Inspection: able to speak in complete sentences Extremity General Extremity: edema Skin Wounds: wounds noted size Size: See clinical note, bed granulating well, margins well defined, no odor and open Neuro oriented x3, CN's II-XII intact bilaterally, moves all extremities and no focal motor deficits Psych mental status grossly normal, thought process normal, cooperative, affect normal and speech normal Debridement Note Debridement Note Wound debrided: Left lower extremity Type of Debridement: Excisional debridement Anesthesia Used: 5% Lidocaine Gel Depth: Down to and including healthy tissue and in the subcutaneous layer Percentage of wound debrided: 100 Instrument Used: 5mm curette Tissue Removed: Slough and devitalized tissue Severity: Fat Layer Exposed Amount of bleeding with debridement: Mild Bleeding Controlled with: Pressure Patient tolerated procedure: Patient tolerated procedure well Post-Debridement Measurements and Additional Note: Post-Debridement Measurements/Treatment CANDELARIA - Nurse 1 - General Ulcer Assessment Start: 11/23/23 10:29 Freq: Status: Active Protocol: VIKASH Activity Type Activity Date Activity User E-sign Co-sign Detail Recorded Client Recorded Date Recorded By Document 11/23/23 10:29 KW [id number] 11/23/23 10:37 11/23/23 10:29 WC - Today's Visit Information Type of service Follow-up Visit (Physician/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 Any new allergies or adverse reactions No Had a fall/change in ADL's that may No increase risk of falls Signs or symptoms of abuse and/or No neglect since last visit Have you been in the hospital since your No last visit? Has dressing in place as prescribed Yes Has compression in place as prescribed Yes Has offloadiing in place as prescribed N/A Experienced any changes in pain level or No management Left Footwear Regular Shoe Right Footwear Regular Shoe Pain Scale: 0-10 Numeric Is Patient Pain Free? Yes - Nurse 1 - General Ulcer Measurement Start: 11/23/23 10:29 Freq: Status: Active Protocol: Activity Type Activity Date Activity User E-sign Co-sign Detail Recorded Client Recorded Date Recorded By Document 11/23/23 10:29 KW [id number] 11/23/23 10:37 11/23/23 10:29 Wound Center Nurse 1 #2 LT LAT LE -Current Size (cm) - Length 3.9 -Current Size (cm) - Width 2 -Current Size (cm) - Depth 0.1 -Total Square Cm 7.8 -Date of Last Picture (Recall this 11/23/23 field) -Epithelialization Medium 34-66% -Exudate Amt Small -Exudate Type Serosanguineous -Wound Margin Distinct, Outline Attached -Granulation Amt Large (67-100%) -Granulation Quality [place],Red -Necrosis Amt Small (1-33%) -Necrotic Tissue Type Adherent Slough -Texture (Kiera-wound Skin Appearance) Assessed -Moisture (Kiera-wound Skin Appearance) Assessed -Color (Kiera-wound Skin Appearance) Assessed -Temperature (Kiera-wound Skin No Abnormality Appearance) (Pt Warm) -Tenderness on Palpation (Kiera-wound No Skin Appearance) -Ulcer Cleansing Rinsed/ Irrigated with Saline -Foul Odor after Cleansing No -Anesthetic Used 5% Lidocaine Gel WC - Nurse 2 - General Ulcer CM Notes Start: 11/23/23 10:29 Freq: Status: Active Protocol: Activity Type Activity Date Activity User E-sign Co-sign Detail Recorded Client Recorded Date Recorded By Document 11/23/23 10:49 DS [id number] 11/23/23 10:51 DS 11/23/23 10:49 Wound Center Nurse 2 -Time 10:49 -Correct Patient Yes -Correct Side, Site, Position Yes -Correct Procedure Yes -Procedure Performed Yes -Type of Procedure Debridement -Clinical Debridement Subcutaneous -Tissue Removed Subcutaneous -Post Debridement (cm) - Length 4.0 -Post Debridement (cm) - Width 2.0 -Post Debridement (cm) - Depth 0.1 -Total Square (Post) (cm) 8.00 -Area of Debridement (cm) - Length 4.0 -Area of Debridement (cm) - Width 2.0 -Total Square (Area) (cm) 8.00 -Tunneling No -Undermining/Tunneling No -Circular Undermining No -Wound/Ulcer Outcome Not Healed -Ulcer Cleansing Rinsed/ Irrigated with Saline -Bioengineered Tissue No -Bleeding Controlled with Pressure -Treatment Response Procedure Tolerated Well -Debridement - Subq, 1st 20sq cm Yes Pain Scale: 0-10 Numeric Is Patient Pain Free? Yes Assessment/Plan Assessment/Plan (1) Ulcer of left lower extremity with fat layer exposed: CODE(S): L97.922 - Non-pressure chronic ulcer of unspecified part of left lower leg with fat layer exposed (2) Varicose veins of both legs with edema: CODE(S): I83.893 - Varicose veins of bilateral lower extremities with other complications (3) Nicotine dependence: CODE(S): F17.200 - Nicotine dependence, unspecified, uncomplicated QUALIFIERS: Substance use status: in remission (4) Paroxysmal atrial fibrillation: CODE(S): I48.0 - Paroxysmal atrial fibrillation (5) alf (current) use of anticoagulants: CODE(S): Z79.01 - alf (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 Improving. As above, he states that he did better with wearing his compression stockings however, still not wearing it consistently through the day. Alternating with the Tubigrip. Not open to 3M wrap at this time, he states that he will consider it in a few weeks if not healed. Continue Fibracol daily, cover with Adaptic and gauze. Leg elevation, exercise as tolerated and compliance with compression strongly recommended. Adequate protein intake and smoking cessation also recommended, he voiced understanding. Follow-up in a week or sooner if needed. This note was generated with [employer] dictation software. It may contain incorrect words, spelling, and punctuation that were not noted in checking the note before signing.
--- NOTE | 2023-11-27 08:45 | WC ---
PHOTO 11/23/23 LEFT LATERAL LE
[2023-11-30 10:36] VITALS: BP 138/92; PULSE 53; RESP 16; TEMP 36.1
--- NOTE | 2023-11-30 12:48 | PN.PCM_ITS ---
History of Present Illness Date of Service: 11/30/23 Chief Complaint: Left lower extremity ulcer History of Wound: Mr. Ruelas is a 63-year-old who was referred to the wound center by his primary care physician due to nonhealing left lower extremity ulcer. Noted this about 6 weeks ago. No known precipitating factor. He had attempted use of an antibiotic ointment and some other measures at home without any significant improvement. Due to pain/burning, has not been wearing his compression. Sleeps in a recliner due to back surgery and chronic back pain. History of CAD and tobacco use. No known history of diabetes, recent A1c within range per patient. He states that he recently had labs done ordered by his PCP. He feels well otherwise, no chills, fever or change in bowel habit. Progress of Wound: Improving, no new concerns at this time. He states that he is doing better with his compression. Objective Data Objective Data Vital Signs: Vital Signs Temp Pulse Resp BP O2 Del Method 97 F L 53 L 16 138/92 H Room Air 11/30/23 10:36 11/30/23 10:36 11/30/23 10:36 11/30/23 10:36 11/23/23 10:29 Oxygen Delivery Method Room Air Charges/Coding Procedures Integumentary 111xxx-113xx: 89350 Erin subq tissue 20 sq cm/< Physical Exam Const alert, oriented x3 and no apparent distress General Appearance: cooperative and well kempt HEENT normocephalic, head/scalp atraumatic and hearing grossly normal bilaterally Eyes EOMs intact bilaterally General Eye: normal appearance of both eyes Neck full ROM and supple General: normal visual inspection Resp normal respiratory effort Effort and Inspection: able to speak in complete sentences Extremity General Extremity: edema Skin Wounds: wounds noted size Size: See clinical note, bed granulating well, margins well defined, no odor and open Neuro oriented x3, CN's II-XII intact bilaterally, moves all extremities and no focal motor deficits Psych mental status grossly normal, thought process normal, cooperative, affect normal and speech normal Debridement Note Debridement Note Wound debrided: Left lower extremity Type of Debridement: Excisional debridement Anesthesia Used: 4% Lidocaine Solution Depth: Down to and including healthy tissue Percentage of wound debrided: 100 Instrument Used: 5mm curette Tissue Removed: Slough and devitalized tissue Severity: Fat Layer Exposed Amount of bleeding with debridement: Mild Bleeding Controlled with: Pressure Patient tolerated procedure: Patient tolerated procedure well Post-Debridement Measurements and Additional Note: Post-Debridement Measurements/Treatment WC - Nurse 1 - General Ulcer Assessment Start: 11/23/23 10:29 Freq: Status: Active Protocol: VIKASH Activity Type Activity Date Activity User E-sign Co-sign Detail Recorded Client Recorded Date Recorded By Document 11/23/23 10:29 KW [id number] 11/23/23 10:37 KW Document 11/30/23 10:36 CP [id number] 11/30/23 10:42 CP 11/23/23 11/30/23 10:29 10:36 WC - Today's Visit Information Type of service Follow-up Visit Follow-up Visit (Physician/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 FACTORS ENGINEER (Physician/HUMAN FACTORS ENGINEER ) ) Arrival Mode Ambulatory,Cane Ambulatory,Cane Patient Identification Verified (Name & Yes Yes ) Patient Requires Transmission-Based No Precautions Vital Signs Temperature (97.8 F-99.1 F) 96.7 F L 97 F L Temperature Source Temporal Temporal Pulse Rate (60-100) 70 53 L Pulse Location Monitor Monitor Respiratory Rate (12-18) 18 16 Respiratory rate source Observation Observation Oxygen Delivery Method Room Air Blood Pressure (90/60-120/80) 155/97 H 138/92 H Blood Pressure Mean (mm Hg) 116 107 Source Monitor Monitor Position Semi-Fowlers Sitting Blood Pressure Location Left Arm Left Arm History Since Last Visit- (Skip if this is Patient's initial visit) Have you changed medications since your No No last visit? Any new allergies or adverse reactions No No Had a fall/change in ADL's that may No No increase risk of falls Signs or symptoms of abuse and/or No No neglect since last visit Have you been in the hospital since your No No last visit? Has dressing in place as prescribed Yes Yes Has compression in place as prescribed Yes Yes Has offloadiing in place as prescribed N/A N/A Experienced any changes in pain level or No No management Left Footwear Regular Shoe Right Footwear Regular Shoe Pain Scale: 0-10 Numeric Is Patient Pain Free? Yes No CANDELARIA Killian Nurse 1 - General Ulcer Measurement Start: 11/23/23 10:29 Freq: Status: Active Protocol: Activity Type Activity Date Activity User E-sign Co-sign Detail Recorded Client Recorded Date Recorded By Document 11/23/23 10:29 KW [id number] 11/23/23 10:37 KW Document 11/30/23 10:36 CP [id number] 11/30/23 10:42 CP 11/23/23 11/30/23 10:29 10:36 Wound Center Nurse 1 #2 LT LAT LE -Current Size (cm) - Length 3.9 3.4 -Current Size (cm) - Width 2 1.3 -Current Size (cm) - Depth 0.1 0.1 -Total Square Cm 7.8 4.42 -Date of Last Picture (Recall this 11/23/23 field) -Epithelialization Medium 34-66% Small 1-33% -Tunneling No -Undermining/Tunneling No -Exudate Amt Small Small -Exudate Type Serosanguineous Serosanguineous -Wound Margin Distinct, Flat & Intact Outline Attached -Granulation Amt Large (67-100%) Large (67-100%) -Granulation Quality [place],Red Red -Slough/Fibrin Yes -Necrosis Amt Small (1-33%) Small (1-33%) -Necrotic Tissue Type Adherent Slough Adherent Slough -Structure Exposed N/A -Texture (Kiera-wound Skin Appearance) Assessed No Abnormality -Moisture (Kiera-wound Skin Appearance) Assessed No Abnormality -Color (Kiera-wound Skin Appearance) Assessed No Abnormality -Temperature (Kiera-wound Skin No Abnormality No Abnormality Appearance) (Pt Warm) (Pt Warm) -Tenderness on Palpation (Kiera-wound No No Skin Appearance) -Ulcer Cleansing Rinsed/ Rinsed/ Irrigated with Irrigated with Saline Saline -Foul Odor after Cleansing No No -Anesthetic Used 5% Lidocaine 5% Lidocaine Gel Gel Right Ankle (cm) 41 Left Calf (cm) 43 WC - Nurse 2 - General Ulcer CM Notes Start: 11/23/23 10:29 Freq: Status: Active Protocol: Activity Type Activity Date Activity User E-sign Co-sign Detail Recorded Client Recorded Date Recorded By Document 11/23/23 10:49 DS [id number] 11/23/23 10:51 DS Document 11/30/23 10:52 GM [id number] 11/30/23 10:56 11/23/23 11/30/23 10:49 10:52 Wound Center Nurse 2 #2 LT LAT LE -Time 10:49 10:53 -Correct Patient Yes Yes -Correct Side, Site, Position Yes Yes -Correct Procedure Yes Yes -Procedure Performed Yes Yes -Type of Procedure Debridement Debridement -Clinical Debridement Subcutaneous Subcutaneous -Tissue Removed Subcutaneous Subcutaneous -Post Debridement (cm) - Length 4.0 3.5 -Post Debridement (cm) - Width 2.0 1.6 -Post Debridement (cm) - Depth 0.1 0.1 -Total Square (Post) (cm) 8.00 5.60 -Area of Debridement (cm) - Length 4.0 3.5 -Area of Debridement (cm) - Width 2.0 1.6 -Total Square (Area) (cm) 8.00 5.60 -Tunneling No No -Undermining/Tunneling No No -Circular Undermining No No -Wound/Ulcer Outcome Not Healed Not Healed -Ulcer Cleansing Rinsed/ Rinsed/ Irrigated with Irrigated with Saline Saline -Foul Odor after Cleansing No -Bioengineered Tissue No No -Bleeding Controlled with Pressure Pressure -Treatment Response Procedure Procedure Tolerated Well Tolerated Well -Debridement - Subq, 1st 20sq cm Yes Yes Pain Scale: 0-10 Numeric Is Patient Pain Free? Yes Yes - Nurse 3 - General Ulcer D/C NN Start: 11/23/23 10:29 Freq: Status: Active Protocol: Activity Type Activity Date Activity User E-sign Co-sign Detail Recorded Client Recorded Date Recorded By Document 11/23/23 11:09 [id number] 11/23/23 11:11 Document 11/30/23 11:10 [id number] 11/30/23 11:12 11/23/23 11/30/23 11:09 11:10 Wound Care Center Nurse 3 #2 LT LAT LE -Ulcer Cleansing Rinsed/ Rinsed/ Irrigated with Irrigated with Saline Saline -Foul Odor after Cleansing No -Primary Dressing Applied Fibracol Plus Fibracol Plus 4x4 4x4 -Other Dressing ADAPTIC -Other Covering adhesive dressing -Fibracol Plus 4x4 1 1 -Wound Comment(s) adaptic Left -Tubular Bandage Single Layer Single Layer -Size of Tubigrip Used Size F Size F -Size F ($) 1 -Other used pt tubigrip Treatment Response Procedure Tolerated Well Pain Scale: 0-10 Numeric Is Patient Pain Free? No Yes - Visit Discharge Discharge Condition Stable Stable Ambulatory Status Ambulatory,Cane Ambulatory,Cane Transportation Private Auto Clinical Summary of Care Provided Yes Yes Assessment/Plan Assessment/Plan (1) Ulcer of left lower extremity with fat layer exposed: CODE(S): L97.922 - Non-pressure chronic ulcer of unspecified part of left lower leg with fat layer exposed (2) Varicose veins of both legs with edema: CODE(S): I83.893 - Varicose veins of bilateral lower extremities with other complications (3) Nicotine dependence: CODE(S): F17.200 - Nicotine dependence, unspecified, uncomplicated QUALIFIERS: Substance use status: in remission (4) Paroxysmal atrial fibrillation: CODE(S): I48.0 - Paroxysmal atrial fibrillation (5) long-term (current) use of anticoagulants: CODE(S): Z79.01 - 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 Good improvement noted this week. Also appears to be some improvement in edema as well. Continue Fibracol daily, cover with Adaptic and gauze. Leg elevation, exercise as tolerated and compliance with compression strongly recommended. Continue compression stockings and Tubigrip's, patient alternating due to comfort. Adequate protein intake and smoking cessation also recommended, he voiced understanding. Follow-up in a week or sooner if needed. This note was generated with [employer] dictation software. It may contain incorrect words, spelling, and punctuation that were not noted in checking the note before signing.
[2023-12-07 10:34] VITALS: BP 147/77; PULSE 63; RESP 18
--- NOTE | 2023-12-07 12:35 | PCM.WC.PN ---
History of Present Illness Date of Service: 12/07/23 Chief Complaint: Left lower extremity ulcer History of Wound: Mr. Ruelas is a 63-year-old who was referred to the wound center by his primary care physician due to nonhealing left lower extremity ulcer. Noted this about 6 weeks ago. No known precipitating factor. He had attempted use of an antibiotic ointment and some other measures at home without any significant improvement. Due to pain/burning, has not been wearing his compression. Sleeps in a recliner due to back surgery and chronic back pain. History of CAD and tobacco use. No known history of diabetes, recent A1c within range per patient. He states that he recently had labs done ordered by his PCP. He feels well otherwise, no chills, fever or change in bowel habit. Progress of Wound: Increased lower extremity edema. Slight increase in circumference. He states that he was on his feet a lot and was also traveling a lot this week. Did not use appropriate compression. Objective Data Objective Data Vital Signs: Vital Signs Temp Pulse Resp BP O2 Del Method 97 F L 63 18 147/77 H Room Air 11/30/23 10:36 12/07/23 10:34 12/07/23 10:34 12/07/23 10:34 12/07/23 10:34 Oxygen Delivery Method Room Air Charges/Coding Procedures Integumentary 111xxx-113xx: 59880 Erin subq tissue 20 sq cm/< Physical Exam Const alert, oriented x3 and no apparent distress General Appearance: cooperative and well kempt HEENT normocephalic, head/scalp atraumatic and hearing grossly normal bilaterally Eyes EOMs intact bilaterally General Eye: normal appearance of both eyes Neck full ROM and supple General: normal visual inspection Resp normal respiratory effort Effort and Inspection: able to speak in complete sentences Extremity General Extremity: edema Skin Wounds: wounds noted size Size: See clinical note, bed granulating well, margins well defined, no odor and open Neuro oriented x3, CN's II-XII intact bilaterally, moves all extremities and no focal motor deficits Psych mental status grossly normal, thought process normal, cooperative, affect normal and speech normal Debridement Note Debridement Note Wound debrided: Left lower extremity Type of Debridement: Excisional debridement Anesthesia Used: 4% Lidocaine Solution Depth: Down to and including healthy tissue and in the subcutaneous layer Percentage of wound debrided: 100 Instrument Used: 5mm curette Tissue Removed: Slough and devitalized tissue Severity: Fat Layer Exposed Amount of bleeding with debridement: Mild Bleeding Controlled with: Pressure Patient tolerated procedure: Patient tolerated procedure well Post-Debridement Measurements and Additional Note: Post-Debridement Measurements/Treatment - Nurse 1 - General Ulcer Assessment Start: 11/23/23 10:29 Freq: Status: Active Protocol: VIKASH Activity Type Activity Date Activity User E-sign Co-sign Detail Recorded Client Recorded Date Recorded By Document 11/23/23 10:29 KW [id number] 11/23/23 10:37 KW Document 11/30/23 10:36 CP [id number] 11/30/23 10:42 CP Document 12/07/23 10:34 KW [id number] 12/07/23 10:42 KW 11/23/23 11/30/23 12/07/23 10:29 10:36 10:34 - Today's Visit Information Type of service Follow-up Visit Follow-up Visit Follow-up Visit (Physician/BANKING AND FINANCE INSTRUCTOR (Physician/BANKING AND FINANCE INSTRUCTOR (Physician/BANKING AND FINANCE INSTRUCTOR ) ) ) Arrival Mode Ambulatory,Cane Ambulatory,Cane Ambulatory,Cane Patient Identification Verified (Name & Yes Yes Yes ) Patient Requires Transmission-Based No Precautions Vital Signs Temperature (97.8 F-99.1 F) 96.7 F L 97 F L Temperature Source Temporal Temporal Pulse Rate (60-100) 70 53 L 63 Pulse Location Monitor Monitor Monitor Respiratory Rate (12-18) 18 16 18 Respiratory rate source Observation Observation Observation Oxygen Delivery Method Room Air Room Air Blood Pressure (90/60-120/80) 155/97 H 138/92 H 147/77 H Blood Pressure Mean (mm Hg) 116 107 100 Source Monitor Monitor Monitor Position Semi-Fowlers Sitting Semi-Fowlers Blood Pressure Location Left Arm Left Arm Right Arm History Since Last Visit- (Skip if this is Patient's initial visit) Have you changed medications since your No No No last visit? Any new allergies or adverse reactions No No No Had a fall/change in ADL's that may No No No increase risk of falls Signs or symptoms of abuse and/or No No No neglect since last visit Have you been in the hospital since your No No No last visit? Has dressing in place as prescribed Yes Yes Yes Has compression in place as prescribed Yes Yes Yes Has offloadiing in place as prescribed N/A N/A N/A Experienced any changes in pain level or No No No management Left Footwear Regular Shoe Regular Shoe Right Footwear Regular Shoe Regular Shoe Pain Scale: 0-10 Numeric Is Patient Pain Free? Yes No Yes WC - Nurse 1 - General Ulcer Measurement Start: 11/23/23 10:29 Freq: Status: Active Protocol: Activity Type Activity Date Activity User E-sign Co-sign Detail Recorded Client Recorded Date Recorded By Document 11/23/23 10:29 KW [id number] 11/23/23 10:37 KW Document 11/30/23 10:36 CP [id number] 11/30/23 10:42 CP Document 12/07/23 10:34 KW [id number] 12/07/23 10:42 KW 11/23/23 11/30/23 12/07/23 10:29 10:36 10:34 Wound Center Nurse 1 #2 LT LAT LE -Current Size (cm) - Length 3.9 3.4 4 -Current Size (cm) - Width 2 1.3 1.8 -Current Size (cm) - Depth 0.1 0.1 0.2 -Total Square Cm 7.8 4.42 7.2 -Date of Last Picture (Recall this 11/23/23 field) -Epithelialization Medium 34-66% Small 1-33% -Tunneling No -Undermining/Tunneling No -Exudate Amt Small Small Small -Exudate Type Serosanguineous Serosanguineous Serosanguineous -Wound Margin Distinct, Flat & Intact Distinct, Outline Outline Attached Attached -Granulation Amt Large (67-100%) Large (67-100%) Medium (34-66%) -Granulation Quality [place],Red Red [place] -Slough/Fibrin Yes -Necrosis Amt Small (1-33%) Small (1-33%) Medium (34-66%) -Necrotic Tissue Type Adherent Slough Adherent Slough Adherent Slough -Structure Exposed N/A -Texture (Kiera-wound Skin Appearance) Assessed No Abnormality Assessed -Moisture (Kiera-wound Skin Appearance) Assessed No Abnormality Assessed -Color (Kiera-wound Skin Appearance) Assessed No Abnormality Assessed -Temperature (Kiera-wound Skin No Abnormality No Abnormality No Abnormality Appearance) (Pt Warm) (Pt Warm) (Pt Warm) -Tenderness on Palpation (Kiera-wound No No No Skin Appearance) -Ulcer Cleansing Rinsed/ Rinsed/ Rinsed/ Irrigated with Irrigated with Irrigated with Saline Saline Saline -Foul Odor after Cleansing No No No -Anesthetic Used 5% Lidocaine 5% Lidocaine 5% Lidocaine Gel Gel Gel Right Ankle (cm) 41 Left Calf (cm) 43 52 Left Ankle (cm) 32 WC - Nurse 2 - General Ulcer CM Notes Start: 11/23/23 10:29 Freq: Status: Active Protocol: Activity Type Activity Date Activity User E-sign Co-sign Detail Recorded Client Recorded Date Recorded By Document 11/23/23 10:49 DS [id number] 11/23/23 10:51 DS Document 11/30/23 10:52 GM [id number] 11/30/23 10:56 GM Document 12/07/23 10:49 GM [id number] 12/07/23 10:56 GM 11/23/23 11/30/23 12/07/23 10:49 10:52 10:49 Wound Center Nurse 2 #2 LT LAT LE -Time 10:49 10:53 10:49 -Correct Patient Yes Yes Yes -Correct Side, Site, Position Yes Yes Yes -Correct Procedure Yes Yes Yes -Procedure Performed Yes Yes Yes -Type of Procedure Debridement Debridement Debridement -Clinical Debridement Subcutaneous Subcutaneous Subcutaneous -Tissue Removed Subcutaneous Subcutaneous Subcutaneous -Post Debridement (cm) - Length 4.0 3.5 3.7 -Post Debridement (cm) - Width 2.0 1.6 1.6 -Post Debridement (cm) - Depth 0.1 0.1 0.2 -Total Square (Post) (cm) 8.00 5.60 5.92 -Area of Debridement (cm) - Length 4.0 3.5 3.7 -Area of Debridement (cm) - Width 2.0 1.6 1.6 -Total Square (Area) (cm) 8.00 5.60 5.92 -Tunneling No No No -Undermining/Tunneling No No No -Circular Undermining No No No -Wound/Ulcer Outcome Not Healed Not Healed Not Healed -Ulcer Cleansing Rinsed/ Rinsed/ Rinsed/ Irrigated with Irrigated with Irrigated with Saline Saline Saline -Foul Odor after Cleansing No No -Bioengineered Tissue No No No -Bleeding Controlled with Pressure Pressure Pressure -Treatment Response Procedure Procedure Procedure Tolerated Well Tolerated Well Tolerated Well -Debridement - Subq, 1st 20sq cm Yes Yes Yes Pain Scale: 0-10 Numeric Is Patient Pain Free? Yes Yes Yes - Nurse 3 - General Ulcer D/C NN Start: 11/23/23 10:29 Freq: Status: Active Protocol: Activity Type Activity Date Activity User E-sign Co-sign Detail Recorded Client Recorded Date Recorded By Document 11/23/23 11:09 CP [id number] 11/23/23 11:11 CP Document 11/30/23 11:10 CP [id number] 11/30/23 11:12 CP Document 12/07/23 11:08 KW [id number] 12/07/23 11:09 KW 11/23/23 11/30/23 12/07/23 11:09 11:10 11:08 Wound Care Center Nurse 3 #2 LT LAT LE -Ulcer Cleansing Rinsed/ Rinsed/ Irrigated with Irrigated with Saline Saline -Foul Odor after Cleansing No -Primary Dressing Applied Fibracol Plus Fibracol Plus Fibracol Plus 4x4 4x4 4x4,NonAdherent Contact Layer -Other Dressing ADAPTIC pt own mepilex -Other Covering adhesive dressing -Fibracol Plus 4x4 1 1 1 -Wound Comment(s) adaptic Left -Tubular Bandage Single Layer Single Layer Double Layer -Size of Tubigrip Used Size F Size F Size F -Size F ($) 1 2 -Other used pt tubigrip Treatment Response Procedure Tolerated Well Pain Scale: 0-10 Numeric Is Patient Pain Free? No Yes Yes - Visit Discharge Discharge Condition Stable Stable Ambulatory Status Ambulatory,Cane Ambulatory,Cane Transportation Private Auto Clinical Summary of Care Provided Yes Yes Assessment/Plan Assessment/Plan (1) Ulcer of left lower extremity with fat layer exposed: CODE(S): L97.922 - Non-pressure chronic ulcer of unspecified part of left lower leg with fat layer exposed (2) Varicose veins of both legs with edema: CODE(S): I83.893 - Varicose veins of bilateral lower extremities with other complications (3) Nicotine dependence: CODE(S): F17.200 - Nicotine dependence, unspecified, uncomplicated QUALIFIERS: Substance use status: in remission (4) Paroxysmal atrial fibrillation: CODE(S): I48.0 - Paroxysmal atrial fibrillation (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 Some worsening noted this week. As above, was not consistent with his compression and was also traveling a lot. He plans to make changes. Continue Fibracol daily, cover with Adaptic and gauze. Leg elevation, exercise as tolerated and compliance with compression strongly recommended. Continue compression stockings and Tubigrip's, patient alternating due to comfort. Adequate protein intake and smoking cessation also recommended, he voiced understanding. Follow-up in a week or sooner if needed. This note was generated with [employer] dictation software. It may contain incorrect words, spelling, and punctuation that were not noted in checking the note before signing.
[2023-12-14 10:34] VITALS: BP 140/72; PULSE 47; RESP 18; TEMP 35.9
--- NOTE | 2023-12-14 10:59 | PCM.WC.PN ---
History of Present Illness Date of Service: 12/14/23 Chief Complaint: Left lower extremity ulcer History of Wound: Mr. Ruelas is a 63-year-old who was referred to the wound center by his primary care physician due to nonhealing left lower extremity ulcer. Noted this about 6 weeks ago. No known precipitating factor. He had attempted use of an antibiotic ointment and some other measures at home without any significant improvement. Due to pain/burning, has not been wearing his compression. Sleeps in a recliner due to back surgery and chronic back pain. History of CAD and tobacco use. No known history of diabetes, recent A1c within range per patient. He states that he recently had labs done ordered by his PCP. He feels well otherwise, no chills, fever or change in bowel habit. Progress of Wound: No significant change. He states that he wore his compression stockings consistently. No new concerns reported at this time. Objective Data Objective Data Vital Signs: Vital Signs Temp Pulse Resp BP O2 Del Method 96.6 F L 47 L 18 140/72 H Room Air 12/14/23 10:34 12/14/23 10:34 12/14/23 10:34 12/14/23 10:34 12/14/23 10:34 Oxygen Delivery Method Room Air Charges/Coding Procedures Integumentary 111xxx-113xx: 86435 Erin subq tissue 20 sq cm/< Physical Exam Const alert, oriented x3 and no apparent distress General Appearance: cooperative and well kempt HEENT normocephalic, head/scalp atraumatic and hearing grossly normal bilaterally Eyes EOMs intact bilaterally General Eye: normal appearance of both eyes Neck full ROM and supple General: normal visual inspection Resp normal respiratory effort Effort and Inspection: able to speak in complete sentences Extremity General Extremity: edema Skin Wounds: wounds noted size Size: See clinical note, bed granulating well, margins well defined, no odor and open Neuro oriented x3, CN's II-XII intact bilaterally, moves all extremities and no focal motor deficits Psych mental status grossly normal, thought process normal, cooperative, affect normal and speech normal Debridement Note Debridement Note Wound debrided: Left lower extremity Type of Debridement: Excisional debridement Anesthesia Used: 4% Lidocaine Solution Depth: Down to and including healthy tissue and in the subcutaneous layer Percentage of wound debrided: 100 Instrument Used: 5mm curette Tissue Removed: Slough and devitalized tissue Severity: Fat Layer Exposed Amount of bleeding with debridement: Mild Bleeding Controlled with: Pressure Patient tolerated procedure: Patient tolerated procedure well Post-Debridement Measurements and Additional Note: Post-Debridement Measurements/Treatment - Nurse 1 - General Ulcer Assessment Start: 11/23/23 10:29 Freq: Status: Active Protocol: CANDELARIA.MAHSAT Activity Type Activity Date Activity User E-sign Co-sign Detail Recorded Client Recorded Date Recorded By Document 11/23/23 10:29 KW [id number] 11/23/23 10:37 KW Document 11/30/23 10:36 CP [id number] 11/30/23 10:42 CP Document 12/07/23 10:34 KW [id number] 12/07/23 10:42 KW Document 12/14/23 10:34 KW [id number] 12/14/23 10:43 KW 11/23/23 11/30/23 12/07/23 10:29 10:36 10:34 - Today's Visit Information Type of service Follow-up Visit Follow-up Visit Follow-up Visit (Physician/FIELD OPERATIONS FARM MANAGER (Physician/FIELD OPERATIONS FARM MANAGER (Physician/FIELD OPERATIONS FARM MANAGER ) ) ) Arrival Mode Ambulatory,Cane Ambulatory,Cane Ambulatory,Cane Patient Identification Verified (Name & Yes Yes Yes ) Patient Requires Transmission-Based No Precautions Vital Signs Temperature (97.8 F-99.1 F) 96.7 F L 97 F L Temperature Source Temporal Temporal Pulse Rate (60-100) 70 53 L 63 Pulse Location Monitor Monitor Monitor Respiratory Rate (12-18) 18 16 18 Respiratory rate source Observation Observation Observation Oxygen Delivery Method Room Air Room Air Blood Pressure (90/60-120/80) 155/97 H 138/92 H 147/77 H Blood Pressure Mean (mm Hg) 116 107 100 Source Monitor Monitor Monitor Position Semi-Fowlers Sitting Semi-Fowlers Blood Pressure Location Left Arm Left Arm Right Arm History Since Last Visit- (Skip if this is Patient's initial visit) Have you changed medications since your No No No last visit? Any new allergies or adverse reactions No No No Had a fall/change in ADL's that may No No No increase risk of falls Signs or symptoms of abuse and/or No No No neglect since last visit Have you been in the hospital since your No No No last visit? Has dressing in place as prescribed Yes Yes Yes Has compression in place as prescribed Yes Yes Yes Has offloadiing in place as prescribed N/A N/A N/A Experienced any changes in pain level or No No No management Left Footwear Regular Shoe Regular Shoe Right Footwear Regular Shoe Regular Shoe Pain Scale: 0-10 Numeric Is Patient Pain Free? Yes No Yes 12/14/23 10:34 - Today's Visit Information Type of service Follow-up Visit (Physician/FIELD OPERATIONS FARM MANAGER ) Arrival Mode Ambulatory,Cane Patient Identification Verified (Name & Yes ) Patient Requires Transmission-Based Precautions Vital Signs Temperature (97.8 F-99.1 F) 96.6 F L Temperature Source Temporal Pulse Rate (60-100) 47 L Pulse Location Monitor Respiratory Rate (12-18) 18 Respiratory rate source Observation Oxygen Delivery Method Room Air Blood Pressure (90/60-120/80) 140/72 H Blood Pressure Mean (mm Hg) 94 Source Monitor Position Sitting Blood Pressure Location Left Arm History Since Last Visit- (Skip if this is Patient's initial visit) Have you changed medications since your No last visit? Any new allergies or adverse reactions No Had a fall/change in ADL's that may No increase risk of falls Signs or symptoms of abuse and/or No neglect since last visit Have you been in the hospital since your No last visit? Has dressing in place as prescribed Yes Has compression in place as prescribed Yes Has offloadiing in place as prescribed N/A Experienced any changes in pain level or No management Left Footwear Regular Shoe Right Footwear Regular Shoe Pain Scale: 0-10 Numeric Is Patient Pain Free? Yes - Nurse 1 - General Ulcer Measurement Start: 11/23/23 10:29 Freq: Status: Active Protocol: Activity Type Activity Date Activity User E-sign Co-sign Detail Recorded Client Recorded Date Recorded By Document 11/23/23 10:29 KW [id number] 11/23/23 10:37 KW Document 11/30/23 10:36 CP [id number] 11/30/23 10:42 CP Document 12/07/23 10:34 KW [id number] 12/07/23 10:42 KW Document 12/14/23 10:34 KW [id number] 12/14/23 10:43 KW 11/23/23 11/30/23 12/07/23 10:29 10:36 10:34 Wound Center Nurse 1 #2 LT LAT LE -Current Size (cm) - Length 3.9 3.4 4 -Current Size (cm) - Width 2 1.3 1.8 -Current Size (cm) - Depth 0.1 0.1 0.2 -Total Square Cm 7.8 4.42 7.2 -Date of Last Picture (Recall this 11/23/23 field) -Epithelialization Medium 34-66% Small 1-33% -Tunneling No -Undermining/Tunneling No -Exudate Amt Small Small Small -Exudate Type Serosanguineous Serosanguineous Serosanguineous -Wound Margin Distinct, Flat & Intact Distinct, Outline Outline Attached Attached -Granulation Amt Large (67-100%) Large (67-100%) Medium (34-66%) -Granulation Quality [place]Red [place] -Slough/Fibrin Yes -Necrosis Amt Small (1-33%) Small (1-33%) Medium (34-66%) -Necrotic Tissue Type Adherent Slough Adherent Slough Adherent Slough -Structure Exposed N/A -Texture (Kiera-wound Skin Appearance) Assessed No Abnormality Assessed -Moisture (Kiera-wound Skin Appearance) Assessed No Abnormality Assessed -Color (Kiera-wound Skin Appearance) Assessed No Abnormality Assessed -Temperature (Kiera-wound Skin No Abnormality No Abnormality No Abnormality Appearance) (Pt Warm) (Pt Warm) (Pt Warm) -Tenderness on Palpation (Kiera-wound No No No Skin Appearance) -Ulcer Cleansing Rinsed/ Rinsed/ Rinsed/ Irrigated with Irrigated with Irrigated with Saline Saline Saline -Foul Odor after Cleansing No No No -Anesthetic Used 5% Lidocaine 5% Lidocaine 5% Lidocaine Gel Gel Gel Right Ankle (cm) 41 Left Calf (cm) 43 52 Left Ankle (cm) 32 12/14/23 10:34 Wound Center Nurse 1 #2 LT LAT LE -Current Size (cm) - Length 4 -Current Size (cm) - Width 2 -Current Size (cm) - Depth 0.2 -Total Square Cm 8 -Date of Last Picture (Recall this field) -Epithelialization -Tunneling -Undermining/Tunneling -Exudate Amt Small -Exudate Type Serosanguineous -Wound Margin Distinct, Outline Attached -Granulation Amt Medium (34-66%) -Granulation Quality Red -Slough/Fibrin -Necrosis Amt Medium (34-66%) -Necrotic Tissue Type Adherent Slough -Structure Exposed -Texture (Kiera-wound Skin Appearance) Assessed, Scarring -Moisture (Kiera-wound Skin Appearance) Assessed -Color (Kiera-wound Skin Appearance) Assessed, Erythema -Temperature (Kiera-wound Skin No Abnormality Appearance) (Pt Warm) -Tenderness on Palpation (Kiera-wound No Skin Appearance) -Ulcer Cleansing Soap and Water -Foul Odor after Cleansing No -Anesthetic Used 5% Lidocaine Gel Right Ankle (cm) Left Calf (cm) 48 Left Ankle (cm) 31.5 WC - Nurse 2 - General Ulcer CM Notes Start: 11/23/23 10:29 Freq: Status: Active Protocol: Activity Type Activity Date Activity User E-sign Co-sign Detail Recorded Client Recorded Date Recorded By Document 11/23/23 10:49 DS [id number] 11/23/23 10:51 DS Document 11/30/23 10:52 GM [id number] 11/30/23 10:56 GM Document 12/07/23 10:49 GM [id number] 12/07/23 10:56 GM Document 12/14/23 10:49 GM [id number] 12/14/23 10:56 GM 11/23/23 11/30/23 12/07/23 10:49 10:52 10:49 Wound Center Nurse 2 #2 LT LAT LE -Time 10:49 10:53 10:49 -Correct Patient Yes Yes Yes -Correct Side, Site, Position Yes Yes Yes -Correct Procedure Yes Yes Yes -Procedure Performed Yes Yes Yes -Type of Procedure Debridement Debridement Debridement -Clinical Debridement Subcutaneous Subcutaneous Subcutaneous -Tissue Removed Subcutaneous Subcutaneous Subcutaneous -Post Debridement (cm) - Length 4.0 3.5 3.7 -Post Debridement (cm) - Width 2.0 1.6 1.6 -Post Debridement (cm) - Depth 0.1 0.1 0.2 -Total Square (Post) (cm) 8.00 5.60 5.92 -Area of Debridement (cm) - Length 4.0 3.5 3.7 -Area of Debridement (cm) - Width 2.0 1.6 1.6 -Total Square (Area) (cm) 8.00 5.60 5.92 -Tunneling No No No -Undermining/Tunneling No No No -Circular Undermining No No No -Wound/Ulcer Outcome Not Healed Not Healed Not Healed -Ulcer Cleansing Rinsed/ Rinsed/ Rinsed/ Irrigated with Irrigated with Irrigated with Saline Saline Saline -Foul Odor after Cleansing No No -Bioengineered Tissue No No No -Bleeding Controlled with Pressure Pressure Pressure -Treatment Response Procedure Procedure Procedure Tolerated Well Tolerated Well Tolerated Well -Debridement - Subq, 1st 20sq cm Yes Yes Yes Pain Scale: 0-10 Numeric Is Patient Pain Free? Yes Yes Yes 12/14/23 10:49 Wound Center Nurse 2 #2 LT LAT LE -Time 10:50 -Correct Patient Yes -Correct Side, Site, Position Yes -Correct Procedure Yes -Procedure Performed Yes -Type of Procedure Debridement -Clinical Debridement Subcutaneous -Tissue Removed Subcutaneous -Post Debridement (cm) - Length -Post Debridement (cm) - Width -Post Debridement (cm) - Depth -Total Square (Post) (cm) -Area of Debridement (cm) - Length -Area of Debridement (cm) - Width -Total Square (Area) (cm) -Tunneling No -Undermining/Tunneling No -Circular Undermining No -Wound/Ulcer Outcome Not Healed -Ulcer Cleansing Rinsed/ Irrigated with Saline -Foul Odor after Cleansing No -Bioengineered Tissue No -Bleeding Controlled with Pressure -Treatment Response Procedure Tolerated Well -Debridement - Subq, 1st 20sq cm Yes Pain Scale: 0-10 Numeric Is Patient Pain Free? Yes - Nurse 3 - General Ulcer D/C NN Start: 11/23/23 10:29 Freq: Status: Active Protocol: Activity Type Activity Date Activity User E-sign Co-sign Detail Recorded Client Recorded Date Recorded By Document 11/23/23 11:09 CP [id number] 11/23/23 11:11 CP Document 11/30/23 11:10 CP [id number] 11/30/23 11:12 CP Document 12/07/23 11:08 KW [id number] 12/07/23 11:09 KW 11/23/23 11/30/23 12/07/23 11:09 11:10 11:08 Wound Care Center Nurse 3 #2 LT LAT LE -Ulcer Cleansing Rinsed/ Rinsed/ Irrigated with Irrigated with Saline Saline -Foul Odor after Cleansing No -Primary Dressing Applied Fibracol Plus Fibracol Plus Fibracol Plus 4x4 4x4 4x4,NonAdherent Contact Layer -Other Dressing ADAPTIC pt own mepilex -Other Covering adhesive dressing -Fibracol Plus 4x4 1 1 1 -Wound Comment(s) adaptic Left -Tubular Bandage Single Layer Single Layer Double Layer -Size of Tubigrip Used Size F Size F Size F -Size F ($) 1 2 -Other used pt tubigrip Treatment Response Procedure Tolerated Well Pain Scale: 0-10 Numeric Is Patient Pain Free? No Yes Yes WC - Visit Discharge Discharge Condition Stable Stable Ambulatory Status Ambulatory,Cane Ambulatory,Cane Transportation Private Auto Clinical Summary of Care Provided Yes Yes Assessment/Plan Assessment/Plan (1) Ulcer of left lower extremity with fat layer exposed: CODE(S): L97.922 - Non-pressure chronic ulcer of unspecified part of left lower leg with fat layer exposed (2) Varicose veins of both legs with edema: CODE(S): I83.893 - Varicose veins of bilateral lower extremities with other complications (3) Nicotine dependence: CODE(S): F17.200 - Nicotine dependence, unspecified, uncomplicated QUALIFIERS: Substance use status: in remission (4) Paroxysmal atrial fibrillation: CODE(S): I48.0 - Paroxysmal atrial fibrillation (5) [facility] (current) use of anticoagulants: CODE(S): Z79.01 - [facility] (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 No significant change since his last visit. Now open to 3M. Switch to Promogran, cover with foam dressing. 3M wrap for edema management. Come in for nurse visit/change on Monday and then if stable, follow-up in a week for another nurse visit and in 2 weeks with me. Continue leg elevation and exercise as tolerated. Adequate protein intake and other wound care recommendations. Follow-up in 2 weeks with me and nurse visits as above. This note was generated with Datalink dictation software. It may contain incorrect words, spelling, and punctuation that were not noted in checking the note before signing.
== END 2023-12-18 23:59 | disposition home or self-care (01) ==
LOC: WC 10:30
PROVIDERS: Visit Provider Internal Medicine
DX: I83.029 Varicose veins of left lower extremity with ulcer of unspecified site (principal); L97.922 Non-pressure chronic ulcer of unspecified part of left lower leg with fat layer exposed; I48.0 Paroxysmal atrial fibrillation; I83.891 Varicose veins of right lower extremity with other complications; M54.9 Dorsalgia, unspecified; I25.10 Atherosclerotic heart disease of native coronary artery without angina pectoris; G89.29 Other chronic pain; F17.201 Nicotine dependence, unspecified, in remission; Z79.82 Long term (current) use of aspirin; Z79.01 Long term (current) use of anticoagulants; Z79.899 Other long term (current) drug therapy
CPT/HCPCS: 11042; 29581

== ENCOUNTER → 2024-01-01 | Outpatient (CLI) | payer OTHER, SELFPAY ==
[2019-07-19 12:16] VITALS: BMI 49.4
--- NOTE | 2024-01-01 13:49 | ECHOCS_ITS ---
Reason For Study: ARRHYTHMIA Procedure This was a 2D Doppler, Color Flow transthoracic echocardiogram. The study was technically difficult. Contrast injection was performed. Exam performed in department. Left Ventricle Normal LV size. Moderate concentric left ventricular hypertrophy. Left ventricular systolic function is normal. The left ventricular ejection fraction is 60 %. Stage 1 diastolic dysfunction. No regional wall motion abnormalities noted. Right Ventricle Normal RV size. Normal systolic function. Atria Normal left atrium. Normal right atrium. Mitral Valve Normal mitral valve. Tricuspid Valve Normal tricuspid valve. Pulmonic Valve Normal pulmonic valve. Great Vessels Normal aortic root. Pericardium/Pleural No pericardial effusion. Medication 22 gauge I.V. with prn adaptor inserted into left arm. Diluted definity 2.5ml given slow IV push to enhance endocardial definition. MMode/2D Measurements & Calculations LVIDd: 3.8 cm IVSd: 1.6 cm LVOT diam: 2.2 cm LVIDs: 2.1 cm LVPWd: 1.4 cm LVOT area: 3.9 cm2 RVDd: 4.5 cm FS: 43.6 % asc Aorta Diam: 3.4 cm LAV(MOD-bp): 71.6 ml LVAd ap4: 36.2 cm2 LAV(MOD-bp) Indexed: 26.8 ml/m2 LVLd ap4: 8.6 cm LAV(MOD-sp2): 90.5 ml EDV(MOD-sp4): 125.7 ml LAV(MOD-sp4): 50.9 ml EDV(sp4-el): 130.1 ml LVAs ap4: 21.0 cm2 LVLs ap4: 6.8 cm ESV(MOD-sp4): 53.8 ml ESV(sp4-el): 55.0 ml EF(MOD-sp4): 57.2 % EF(sp4-el): 57.7 % LVAd ap2: 42.6 cm2 SV(MOD-sp4): 71.9 ml SV(MOD-sp2): 92.6 ml LVLd ap2: 8.8 cm EDV(MOD-sp2): 165.7 ml EDV(sp2-el): 174.6 ml LVAs ap2: 25.7 cm2 LVLs ap2: 7.8 cm ESV(MOD-sp2): 73.1 ml ESV(sp2-el): 71.9 ml EF(MOD-sp2): 55.9 % SV(sp4-el): 75.1 ml Ao sinus diam: 3.[address] Junction: 3.1 cm LA dimension(2D): 4.4 cm LA A4 area: 19.5 cm2 RA A4 area: 16.5 cm2 TAPSE: 2.2 cm Time Measurements MV dec time: 0.20 sec Doppler Measurements & Calculations MV E max jay: 73.7 cm/sec Lat Peak E' Jay: 11.9 cm/sec Med Peak E' Jay: 7.1 cm/sec MV A max jay: 84.1 cm/sec E/E' lat: 6.2 E/E' med: 10.4 MV E/A: 0.88 MV dec slope: 373.4 cm/sec2 Ao V2 max: 134.2 cm/sec LV V1 max: 109.3 cm/sec Ao max P.2 mmHg LV V1 max P.8 mmHg Ao V2 mean: 100.6 cm/sec LV V1 mean P.7 mmHg Ao mean P.4 mmHg LV V1 mean: 79.7 cm/sec Ao V2 VTI: 26.4 cm LV V1 VTI: 20.5 cm AV (velocity ratio): 0.77 FLORIDALMA(I,D): 3.0 cm2 FLORIDALMA(V,D): 3.2 cm2 SV(LVOT): 79.9 ml PA V2 max: 99.1 cm/sec PA max PG (full): 1.2 mmHg ECHO/Echo Complete W/ Contrast Interpretation Summary Normal LV size. Left ventricular systolic function is normal. The left ventricular ejection fraction is 60 %. Moderate concentric left ventricular hypertrophy. Stage 1 diastolic dysfunction. Contrast injection was performed. Ordering Physician: Main Joyce Referring Physician: Main Joyce MD Performed By: Sanjuana Tavarez RDCS
== END | disposition home or self-care (01) ==
LOC: CVS 13:48
PROVIDERS: Referring Provider Internal Medicine Cardiovascular Disease; Visit Provider Internal Medicine Cardiovascular Disease
DX: I48.0 Paroxysmal atrial fibrillation (principal)
CPT/HCPCS: 93306; Q9957; A4216; C8929

== ENCOUNTER 2024-01-11 10:30 | Outpatient (RCR) | payer OTHER, SELFPAY ==
[2019-07-19 12:16] VITALS: BMI 49.4
[2023-12-19 00:15] VITALS: BP 135/84; PULSE 70; RESP 16; TEMP 35.7
[2023-12-21 15:31] VITALS: BP 129/74; PULSE 62; RESP 18; TEMP 36.3
[2023-12-25 11:03] VITALS: BP 161/76; PULSE 58; RESP 18; TEMP 35.9
[2023-12-28 10:31] VITALS: BP 154/78; PULSE 51; RESP 18; TEMP 36.2
--- NOTE | 2023-12-28 12:16 | PCM.WC.PN ---
History of Present Illness Date of Service: 12/28/23 Chief Complaint: Left lower extremity ulcer History of Wound: Mr. Ruelas is a 63-year-old who was referred to the wound center by his primary care physician due to nonhealing left lower extremity ulcer. Noted this about 6 weeks ago. No known precipitating factor. He had attempted use of an antibiotic ointment and some other measures at home without any significant improvement. Due to pain/burning, has not been wearing his compression. Sleeps in a recliner due to back surgery and chronic back pain. History of CAD and tobacco use. No known history of diabetes, recent A1c within range per patient. He states that he recently had labs done ordered by his PCP. He feels well otherwise, no chills, fever or change in bowel habit. Progress of Wound: No acute concerns at this time. Has done really well with Promogran and 3M compression. Tolerated the wraps without any significant concerns. Objective Data Objective Data Vital Signs: Vital Signs Temp Pulse Resp BP O2 Del Method 97.1 F L 51 L 18 154/78 H Room Air 12/28/23 10:31 12/28/23 10:31 12/28/23 10:31 12/28/23 10:31 12/28/23 10:31 Oxygen Delivery Method Room Air Charges/Coding Procedures Integumentary 111xxx-113xx: 00985 Erin subq tissue 20 sq cm/< Physical Exam Const alert, oriented x3 and no apparent distress General Appearance: cooperative and well kempt HEENT normocephalic, head/scalp atraumatic and hearing grossly normal bilaterally Eyes EOMs intact bilaterally General Eye: normal appearance of both eyes Neck full ROM and supple General: normal visual inspection Resp normal respiratory effort Effort and Inspection: able to speak in complete sentences Extremity General Extremity: edema Skin Wounds: wounds noted size Size: See clinical note, bed granulating well, margins well defined, no odor and open Neuro oriented x3, CN's II-XII intact bilaterally, moves all extremities and no focal motor deficits Psych mental status grossly normal, thought process normal, cooperative, affect normal and speech normal Debridement Note Debridement Note Wound debrided: Left lower extremity Type of Debridement: Excisional debridement Anesthesia Used: 5% Lidocaine Gel Depth: Down to and including healthy tissue and in the subcutaneous layer Percentage of wound debrided: 100 Instrument Used: 3mm curette Tissue Removed: Slough and devitalized tissue Severity: Fat Layer Exposed Amount of bleeding with debridement: Mild Bleeding Controlled with: Pressure Patient tolerated procedure: Patient tolerated procedure well Post-Debridement Measurements and Additional Note: Post-Debridement Measurements/Treatment - Nurse 1 - General Ulcer Assessment Start: 12/21/23 15:28 Freq: Status: Active Protocol: CANDELARIA.MAHSAT Activity Type Activity Date Activity User E-sign Co-sign Detail Recorded Client Recorded Date Recorded By Document 12/21/23 15:31 KW [id number] 12/21/23 15:34 KW Document 12/25/23 11:03 KW [id number] 12/25/23 11:07 KW Document 12/28/23 10:31 KW [id number] 12/28/23 10:45 KW 12/21/23 12/25/23 12/28/23 15:31 11:03 10:31 - Today's Visit Information Type of service Nurse-only Nurse-only Follow-up Visit Visit Visit (Physician/BODY WIRER ) Arrival Mode Ambulatory,Cane Cane Ambulatory, Crutches Patient Identification Verified (Name & Yes Yes Yes ) Vital Signs Temperature (97.8 F-99.1 F) 97.3 F L 96.7 F L 97.1 F L Temperature Source Temporal Temporal Temporal Pulse Rate (60-100) 62 58 L 51 L Pulse Location Monitor Monitor Monitor Respiratory Rate (12-18) 18 18 18 Respiratory rate source Observation Observation Observation Oxygen Delivery Method Room Air Room Air Room Air Blood Pressure (90/60-120/80) 129/74 H 161/76 H 154/78 H Blood Pressure Mean (mm Hg) 92 104 103 Source Monitor Monitor Monitor Position Semi-Fowlers Semi-Fowlers Semi-Fowlers Blood Pressure Location Left Arm Left Forearm Left Arm History Since Last Visit- (Skip if this is Patient's initial visit) Have you changed medications since your No No No last visit? Any new allergies or adverse reactions No No No Had a fall/change in ADL's that may No No No increase risk of falls Signs or symptoms of abuse and/or No No No neglect since last visit Have you been in the hospital since your Yes No No last visit? Has dressing in place as prescribed Yes Yes Yes Has compression in place as prescribed Yes Yes Yes Has offloadiing in place as prescribed N/A N/A N/A Experienced any changes in pain level or No No No management Left Footwear Regular Shoe Regular Shoe Regular Shoe Right Footwear Regular Shoe Regular Shoe Regular Shoe Pain Scale: 0-10 Numeric Is Patient Pain Free? Yes Yes Yes WC - Nurse 1 - General Ulcer Measurement Start: 12/21/23 15:28 Freq: Status: Active Protocol: Activity Type Activity Date Activity User E-sign Co-sign Detail Recorded Client Recorded Date Recorded By Document 12/28/23 10:31 [id number] 12/28/23 10:45 12/28/23 10:31 Wound Center Nurse 1 #2 LT LAT LE -Current Size (cm) - Length 1 -Current Size (cm) - Width 0.7 -Current Size (cm) - Depth 0.1 -Total Square Cm 0.7 -Date of Last Picture (Recall this 12/28/23 field) -Epithelialization Large 67-100% -Exudate Amt Small -Exudate Type Serosanguineous -Wound Margin Distinct, Outline Attached -Granulation Amt Large (67-100%) -Granulation Quality [place],Red -Texture (Kiera-wound Skin Appearance) Assessed -Moisture (Kiera-wound Skin Appearance) Assessed -Color (Kiera-wound Skin Appearance) Assessed -Temperature (Kiera-wound Skin No Abnormality Appearance) (Pt Warm) -Tenderness on Palpation (Kiera-wound No Skin Appearance) -Ulcer Cleansing Soap and Water -Foul Odor after Cleansing No -Anesthetic Used 5% Lidocaine Gel WC - Nurse 2 - General Ulcer CM Notes Start: 12/21/23 15:28 Freq: Status: Active Protocol: Activity Type Activity Date Activity User E-sign Co-sign Detail Recorded Client Recorded Date Recorded By Document 12/28/23 11:19 [id number] 12/28/23 11:25 12/28/23 11:19 Wound Center Nurse 2 -Time 11:21 -Correct Patient Yes -Correct Side, Site, Position Yes -Correct Procedure Yes -Procedure Performed Yes -Type of Procedure Debridement -Clinical Debridement Subcutaneous -Tissue Removed Subcutaneous -Post Debridement (cm) - Length 1.2 -Post Debridement (cm) - Width 0.5 -Post Debridement (cm) - Depth 0.1 -Total Square (Post) (cm) 0.60 -Area of Debridement (cm) - Length 1.2 -Area of Debridement (cm) - Width 0.5 -Total Square (Area) (cm) 0.60 -Tunneling No -Undermining/Tunneling No -Circular Undermining No -Wound/Ulcer Outcome Not Healed -Ulcer Cleansing Rinsed/ Irrigated with Saline -Foul Odor after Cleansing No -Bioengineered Tissue No -Bleeding Controlled with Pressure -Treatment Response Procedure Tolerated Well -Debridement - Subq, 1st 20sq cm Yes Pain Scale: 0-10 Numeric Is Patient Pain Free? Yes - Nurse 3 - General Ulcer D/C NN Start: 12/21/23 15:28 Freq: Status: Active Protocol: Activity Type Activity Date Activity User E-sign Co-sign Detail Recorded Client Recorded Date Recorded By Document 12/21/23 15:31 KW [id number] 12/21/23 15:34 KW Document 12/25/23 11:03 KW [id number] 12/25/23 11:07 KW Document 12/28/23 11:27 KW [id number] 12/28/23 11:28 KW 12/21/23 12/25/23 12/28/23 15:31 11:03 11:27 Vital Signs Temperature (97.8 F-99.1 F) 97.3 F L 96.7 F L Temperature Source Temporal Temporal Pulse Rate (60-100) 62 58 L Pulse Location Monitor Monitor Respiratory Rate (12-18) 18 18 Respiratory rate source Observation Observation Oxygen Delivery Method Room Air Room Air Blood Pressure (90/60-120/80) 129/74 H 161/76 H Blood Pressure Mean (mm Hg) 92 104 Source Monitor Monitor Position Semi-Fowlers Semi-Fowlers Blood Pressure Location Left Arm Left Forearm Pain Scale: 0-10 Numeric Is Patient Pain Free? Yes Yes Yes Wound Care Center Nurse 3 #2 LT LAT LE -Ulcer Cleansing Soap and Water -Primary Dressing Applied Mepilex Border Mepilex Border -Other Dressing pt promogran pt promogran own promogran and foam -Mepilex Border 1 1 Left -Multi-Layered Wrap Application Multi-Layer Multi-Layer Multi-Layer Comp - Left ($) Comp - Left ($) Comp - Left ($) WC - Visit Discharge Discharge Condition Stable Stable Ambulatory Status Ambulatory,Cane Cane Transportation Private Auto Medication Reconcilliation completed & No provided to patient/care provider Clinical Summary of Care Provided Yes Assessment/Plan Assessment/Plan (1) Ulcer of left lower extremity with fat layer exposed: CODE(S): L97.922 - Non-pressure chronic ulcer of unspecified part of left lower leg with fat layer exposed (2) Varicose veins of both legs with edema: CODE(S): I83.893 - Varicose veins of bilateral lower extremities with other complications (3) Nicotine dependence: CODE(S): F17.200 - Nicotine dependence, unspecified, uncomplicated QUALIFIERS: Substance use status: in remission (4) Paroxysmal atrial fibrillation: CODE(S): I48.0 - Paroxysmal atrial fibrillation (5) [facility] (current) use of anticoagulants: 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 Significant improvement since his last visit. Continue Promogran and 3M wrap for edema management. Okay to leave in place for a week. Continue leg elevation and exercise as tolerated. Continue adequate protein intake and other wound care recommendations. He was advised to call with any questions or concerns. Follow-up in 1 week. This note was generated with [employer] dictation software. It may contain incorrect words, spelling, and punctuation that were not noted in checking the note before signing.
--- NOTE | 2023-12-29 11:58 | WC ---
PHOTO 12/28/23 LT LATERAL LEG
[2024-01-04 10:35] VITALS: BP 147/92; PULSE 57; RESP 18; TEMP 36.2
--- NOTE | 2024-01-04 11:34 | PCM.WC.PN ---
History of Present Illness Date of Service: 01/04/24 Chief Complaint: Left lower extremity ulcer History of Wound: Mr. Ruelas is a 63-year-old who was referred to the wound center by his primary care physician due to nonhealing left lower extremity ulcer. Noted this about 6 weeks ago. No known precipitating factor. He had attempted use of an antibiotic ointment and some other measures at home without any significant improvement. Due to pain/burning, has not been wearing his compression. Sleeps in a recliner due to back surgery and chronic back pain. History of CAD and tobacco use. No known history of diabetes, recent A1c within range per patient. He states that he recently had labs done ordered by his PCP. He feels well otherwise, no chills, fever or change in bowel habit. Progress of Wound: No new concerns reported at this time. Epithelialized. Tolerated to 3M well so far. Objective Data Objective Data Vital Signs: Vital Signs Temp Pulse Resp BP O2 Del Method 97.1 F L 57 L 18 147/92 H Room Air 01/04/24 10:35 01/04/24 10:35 01/04/24 10:35 01/04/24 10:35 01/04/24 10:35 Oxygen Delivery Method Room Air Charges/Coding Visit Charges Office Visits / Consults: [id number] OV L3 Est 20min Physical Exam Const alert, oriented x3 and no apparent distress General Appearance: cooperative and well kempt HEENT normocephalic, head/scalp atraumatic and hearing grossly normal bilaterally Eyes EOMs intact bilaterally General Eye: normal appearance of both eyes Neck full ROM and supple General: normal visual inspection Resp normal respiratory effort Effort and Inspection: able to speak in complete sentences Extremity General Extremity: edema Skin Wounds: wounds noted size Size: See clinical note, bed granulating well, margins well defined, no odor and open Neuro oriented x3, CN's II-XII intact bilaterally, moves all extremities and no focal motor deficits Psych mental status grossly normal, thought process normal, cooperative, affect normal and speech normal Debridement Note Debridement Note No debridement was completed: No debridement was completed today Post-Debridement Measurements and Additional Note: Post-Debridement Measurements/Treatment CANDELARIA - Nurse 1 - General Ulcer Assessment Start: 12/21/23 15:28 Freq: Status: Active Protocol: VIKASH Activity Type Activity Date Activity User E-sign Co-sign Detail Recorded Client Recorded Date Recorded By Document 12/21/23 15:31 KW [id number] 12/21/23 15:34 KW Document 12/25/23 11:03 KW [id number] 12/25/23 11:07 KW Document 12/28/23 10:31 KW [id number] 12/28/23 10:45 KW Document 01/04/24 10:35 KW [id number] 01/04/24 10:44 KW 12/21/23 12/25/23 12/28/23 15:31 11:03 10:31 - Today's Visit Information Type of service Nurse-only Nurse-only Follow-up Visit Visit Visit (Physician/RECOVERY COACH ) Arrival Mode Ambulatory,Cane Cane Ambulatory, Crutches Patient Identification Verified (Name & Yes Yes Yes ) Vital Signs Temperature (97.8 F-99.1 F) 97.3 F L 96.7 F L 97.1 F L Temperature Source Temporal Temporal Temporal Pulse Rate (60-100) 62 58 L 51 L Pulse Location Monitor Monitor Monitor Respiratory Rate (12-18) 18 18 18 Respiratory rate source Observation Observation Observation Oxygen Delivery Method Room Air Room Air Room Air Blood Pressure (90/60-120/80) 129/74 H 161/76 H 154/78 H Blood Pressure Mean (mm Hg) 92 104 103 Source Monitor Monitor Monitor Position Semi-Fowlers Semi-Fowlers Semi-Fowlers Blood Pressure Location Left Arm Left Forearm Left Arm History Since Last Visit- (Skip if this is Patient's initial visit) Have you changed medications since your No No No last visit? Any new allergies or adverse reactions No No No Had a fall/change in ADL's that may No No No increase risk of falls Signs or symptoms of abuse and/or No No No neglect since last visit Have you been in the hospital since your Yes No No last visit? Has dressing in place as prescribed Yes Yes Yes Has compression in place as prescribed Yes Yes Yes Has offloadiing in place as prescribed N/A N/A N/A Experienced any changes in pain level or No No No management Left Footwear Regular Shoe Regular Shoe Regular Shoe Right Footwear Regular Shoe Regular Shoe Regular Shoe Pain Scale: 0-10 Numeric Is Patient Pain Free? Yes Yes Yes 01/04/24 10:35 - Today's Visit Information Type of service Follow-up Visit (Physician/RECOVERY COACH ) Arrival Mode Ambulatory,Cane Patient Identification Verified (Name & Yes ) Vital Signs Temperature (97.8 F-99.1 F) 97.1 F L Temperature Source Temporal Pulse Rate (60-100) 57 L Pulse Location Monitor Respiratory Rate (12-18) 18 Respiratory rate source Observation Oxygen Delivery Method Room Air Blood Pressure (90/60-120/80) 147/92 H Blood Pressure Mean (mm Hg) 110 Source Monitor Position Semi-Fowlers Blood Pressure Location Left Arm History Since Last Visit- (Skip if this is Patient's initial visit) Have you changed medications since your No last visit? Any new allergies or adverse reactions No Had a fall/change in ADL's that may No increase risk of falls Signs or symptoms of abuse and/or No neglect since last visit Have you been in the hospital since your No last visit? Has dressing in place as prescribed Yes Has compression in place as prescribed Yes Has offloadiing in place as prescribed N/A Experienced any changes in pain level or No management Left Footwear Regular Shoe Right Footwear Regular Shoe Pain Scale: 0-10 Numeric Is Patient Pain Free? Yes WC - Nurse 1 - General Ulcer Measurement Start: 12/21/23 15:28 Freq: Status: Active Protocol: Activity Type Activity Date Activity User E-sign Co-sign Detail Recorded Client Recorded Date Recorded By Document 12/28/23 10:31 KW [id number] 12/28/23 10:45 KW Document 01/04/24 10:35 KW [id number] 01/04/24 10:44 KW 12/28/23 01/04/24 10:31 10:35 Wound Center Nurse 1 #2 LT LAT LE -Current Size (cm) - Length 1 1 -Current Size (cm) - Width 0.7 0.5 -Current Size (cm) - Depth 0.1 0.1 -Total Square Cm 0.7 0.5 -Date of Last Picture (Recall this 12/28/23 field) -Epithelialization Large 67-100% -Exudate Amt Small Small -Exudate Type Serosanguineous Serosanguineous -Wound Margin Distinct, Distinct, Outline Outline Attached Attached -Granulation Amt Large (67-100%) Large (67-100%) -Granulation Quality [place],Red Red -Texture (Kiera-wound Skin Appearance) Assessed Assessed -Moisture (Kiera-wound Skin Appearance) Assessed Assessed -Color (Kiera-wound Skin Appearance) Assessed Assessed -Temperature (Kiera-wound Skin No Abnormality No Abnormality Appearance) (Pt Warm) (Pt Warm) -Tenderness on Palpation (Kiera-wound No No Skin Appearance) -Ulcer Cleansing Soap and Water Soap and Water -Foul Odor after Cleansing No No -Anesthetic Used 5% Lidocaine 5% Lidocaine Gel Gel WC - Nurse 2 - General Ulcer CM Notes Start: 12/21/23 15:28 Freq: Status: Active Protocol: Activity Type Activity Date Activity User E-sign Co-sign Detail Recorded Client Recorded Date Recorded By Document 12/28/23 11:19 [id number] 12/28/23 11:25 Document 01/04/24 11:00 [id number] 01/04/24 11:01 12/28/23 01/04/24 11:19 11:00 Wound Center Nurse 2 #2 LT LAT LE -Time 11:21 11:00 -Correct Patient Yes Yes -Correct Side, Site, Position Yes Yes -Correct Procedure Yes -Procedure Performed Yes -Type of Procedure Debridement -Clinical Debridement Subcutaneous -Tissue Removed Subcutaneous -Post Debridement (cm) - Length 1.2 -Post Debridement (cm) - Width 0.5 -Post Debridement (cm) - Depth 0.1 -Total Square (Post) (cm) 0.60 -Area of Debridement (cm) - Length 1.2 -Area of Debridement (cm) - Width 0.5 -Total Square (Area) (cm) 0.60 -Tunneling No -Undermining/Tunneling No -Circular Undermining No -Wound/Ulcer Outcome Not Healed Healed- Epithelialized -Ulcer Cleansing Rinsed/ Irrigated with Saline -Foul Odor after Cleansing No -Bioengineered Tissue No -Bleeding Controlled with Pressure -Treatment Response Procedure Tolerated Well -Debridement - Subq, 1st 20sq cm Yes Pain Scale: 0-10 Numeric Is Patient Pain Free? Yes Yes - Nurse 3 - General Ulcer D/C NN Start: 12/21/23 15:28 Freq: Status: Active Protocol: Activity Type Activity Date Activity User E-sign Co-sign Detail Recorded Client Recorded Date Recorded By Document 12/21/23 15:31 KW [id number] 12/21/23 15:34 KW Document 12/25/23 11:03 KW [id number] 12/25/23 11:07 KW Document 12/28/23 11:27 KW [id number] 12/28/23 11:28 KW Document 01/04/24 11:25 KW [id number] 01/04/24 11:26 KW 12/21/23 12/25/23 12/28/23 15:31 11:03 11:27 Vital Signs Temperature (97.8 F-99.1 F) 97.3 F L 96.7 F L Temperature Source Temporal Temporal Pulse Rate (60-100) 62 58 L Pulse Location Monitor Monitor Respiratory Rate (12-18) 18 18 Respiratory rate source Observation Observation Oxygen Delivery Method Room Air Room Air Blood Pressure (90/60-120/80) 129/74 H 161/76 H Blood Pressure Mean (mm Hg) 92 104 Source Monitor Monitor Position Semi-Fowlers Semi-Fowlers Blood Pressure Location Left Arm Left Forearm Pain Scale: 0-10 Numeric Is Patient Pain Free? Yes Yes Yes Wound Care Center Nurse 3 #2 LT LAT LE -Ulcer Cleansing Soap and Water -Primary Dressing Applied Mepilex Border Mepilex Border -Other Dressing pt promogran pt promogran own promogran and foam -Mepilex Border 1 1 -Promogran Left -Multi-Layered Wrap Application Multi-Layer Multi-Layer Multi-Layer Comp - Left ($) Comp - Left ($) Comp - Left ($) WC - Visit Discharge Discharge Condition Stable Stable Ambulatory Status Ambulatory,Cane Cane Transportation Private Auto Medication Reconcilliation completed & No provided to patient/care provider Clinical Summary of Care Provided Yes 01/04/24 11:25 Vital Signs Temperature (97.8 F-99.1 F) Temperature Source Pulse Rate (60-100) Pulse Location Respiratory Rate (12-18) Respiratory rate source Oxygen Delivery Method Blood Pressure (90/60-120/80) Blood Pressure Mean (mm Hg) Source Position Blood Pressure Location Pain Scale: 0-10 Numeric Is Patient Pain Free? Yes Wound Care Center Nurse 3 #2 LT LAT LE -Ulcer Cleansing -Primary Dressing Applied Mepilex Border, Promogran -Other Dressing -Mepilex Border 1 -Promogran 1 Left -Multi-Layered Wrap Application Multi-Layer Comp - Left ($) WC - Visit Discharge Discharge Condition Ambulatory Status Transportation Medication Reconcilliation completed & provided to patient/care provider Clinical Summary of Care Provided Assessment/Plan Assessment/Plan (1) Ulcer of left lower extremity with fat layer exposed: CODE(S): L97.922 - Non-pressure chronic ulcer of unspecified part of left lower leg with fat layer exposed (2) Varicose veins of both legs with edema: CODE(S): I83.893 - Varicose veins of bilateral lower extremities with other complications (3) Nicotine dependence: CODE(S): F17.200 - Nicotine dependence, unspecified, uncomplicated QUALIFIERS: Substance use status: in remission (4) Paroxysmal atrial fibrillation: CODE(S): I48.0 - Paroxysmal atrial fibrillation (5) equipment [employer] (current) use of anticoagulants: CODE(S): Z79.01 - [facility] (current) use of anticoagulants PLAN: Plan No debridement completed today. Epithelialized. Continue moistened Promogran and 3M wrap for edema management. Leave in place for a week. Continue leg elevation and exercise as tolerated. Continue adequate protein intake and other wound care recommendations. He was advised to call with any questions or concerns. Follow-up in 1 week. This note was generated with [employer] dictation software. It may contain incorrect words, spelling, and punctuation that were not noted in checking the note before signing.
[2024-01-11 11:13] VITALS: BP 165/94; PULSE 70; RESP 18; TEMP 35.8
--- NOTE | 2024-01-11 12:51 | PCM.WC.PN ---
History of Present Illness Date of Service: 01/11/24 Chief Complaint: Left lower extremity ulcer History of Wound: Mr. Ruelas is a 63-year-old who was referred to the wound center by his primary care physician due to nonhealing left lower extremity ulcer. Noted this about 6 weeks ago. No known precipitating factor. He had attempted use of an antibiotic ointment and some other measures at home without any significant improvement. Due to pain/burning, has not been wearing his compression. Sleeps in a recliner due to back surgery and chronic back pain. History of CAD and tobacco use. No known history of diabetes, recent A1c within range per patient. He states that he recently had labs done ordered by his PCP. He feels well otherwise, no chills, fever or change in bowel habit. Progress of Wound: Healed. No new concerns at this time. Objective Data Objective Data Vital Signs: Vital Signs Temp Pulse Resp BP O2 Del Method 96.5 F L 70 18 165/94 H Room Air 01/11/24 11:13 01/11/24 11:13 01/11/24 11:13 01/11/24 11:13 01/11/24 11:13 Oxygen Delivery Method Room Air Charges/Coding Visit Charges Office Visits / Consults: [id number] OV L3 Est 20min Physical Exam Const alert, oriented x3 and no apparent distress General Appearance: cooperative and well kempt HEENT normocephalic, head/scalp atraumatic and hearing grossly normal bilaterally Eyes EOMs intact bilaterally General Eye: normal appearance of both eyes Neck full ROM and supple General: normal visual inspection Resp normal respiratory effort Effort and Inspection: able to speak in complete sentences Extremity General Extremity: edema Neuro oriented x3, CN's II-XII intact bilaterally, moves all extremities and no focal motor deficits Psych mental status grossly normal, thought process normal, cooperative, affect normal and speech normal Debridement Note Debridement Note Post-Debridement Measurements and Additional Note: Post-Debridement Measurements/Treatment WC - Nurse 1 - General Ulcer Assessment Start: 12/21/23 15:28 Freq: Status: Active Protocol: VIKASH Activity Type Activity Date Activity User E-sign Co-sign Detail Recorded Client Recorded Date Recorded By Document 12/21/23 15:31 KW [id number] 12/21/23 15:34 KW Document 12/25/23 11:03 KW [id number] 12/25/23 11:07 KW Document 12/28/23 10:31 KW [id number] 12/28/23 10:45 KW Document 01/04/24 10:35 KW [id number] 01/04/24 10:44 KW Document 01/11/24 11:13 KW [id number] 01/11/24 11:21 KW 12/21/23 12/25/23 12/28/23 15:31 11:03 10:31 - Today's Visit Information Type of service Nurse-only Nurse-only Follow-up Visit Visit Visit (Physician/BILL ADJUSTER ) Arrival Mode Ambulatory,Cane Cane Ambulatory, Crutches Patient Identification Verified (Name & Yes Yes Yes ) Vital Signs Temperature (97.8 F-99.1 F) 97.3 F L 96.7 F L 97.1 F L Temperature Source Temporal Temporal Temporal Pulse Rate (60-100) 62 58 L 51 L Pulse Location Monitor Monitor Monitor Respiratory Rate (12-18) 18 18 18 Respiratory rate source Observation Observation Observation Oxygen Delivery Method Room Air Room Air Room Air Blood Pressure (90/60-120/80) 129/74 H 161/76 H 154/78 H Blood Pressure Mean (mm Hg) 92 104 103 Source Monitor Monitor Monitor Position Semi-Fowlers Semi-Fowlers Semi-Fowlers Blood Pressure Location Left Arm Left Forearm Left Arm History Since Last Visit- (Skip if this is Patient's initial visit) Have you changed medications since your No No No last visit? Any new allergies or adverse reactions No No No Had a fall/change in ADL's that may No No No increase risk of falls Signs or symptoms of abuse and/or No No No neglect since last visit Have you been in the hospital since your Yes No No last visit? Has dressing in place as prescribed Yes Yes Yes Has compression in place as prescribed Yes Yes Yes Has offloadiing in place as prescribed N/A N/A N/A Experienced any changes in pain level or No No No management Left Footwear Regular Shoe Regular Shoe Regular Shoe Right Footwear Regular Shoe Regular Shoe Regular Shoe Pain Scale: 0-10 Numeric Is Patient Pain Free? Yes Yes Yes 01/04/24 01/11/24 10:35 11:13 - Today's Visit Information Type of service Follow-up Visit Follow-up Visit (Physician/BILL ADJUSTER (Physician/BILL ADJUSTER ) ) Arrival Mode Ambulatory,Cane Ambulatory,Cane Patient Identification Verified (Name & Yes ) Vital Signs Temperature (97.8 F-99.1 F) 97.1 F L 96.5 F L Temperature Source Temporal Temporal Pulse Rate (60-100) 57 L 70 Pulse Location Monitor Monitor Respiratory Rate (12-18) 18 18 Respiratory rate source Observation Observation Oxygen Delivery Method Room Air Room Air Blood Pressure (90/60-120/80) 147/92 H 165/94 H Blood Pressure Mean (mm Hg) 110 117 Source Monitor Monitor Position Semi-Fowlers Semi-Fowlers Blood Pressure Location Left Arm Right Arm History Since Last Visit- (Skip if this is Patient's initial visit) Have you changed medications since your No No last visit? Any new allergies or adverse reactions No No Had a fall/change in ADL's that may No No increase risk of falls Signs or symptoms of abuse and/or No No neglect since last visit Have you been in the hospital since your No No last visit? Has dressing in place as prescribed Yes Yes Has compression in place as prescribed Yes Yes Has offloadiing in place as prescribed N/A N/A Experienced any changes in pain level or No No management Left Footwear Regular Shoe Regular Shoe Right Footwear Regular Shoe Regular Shoe Pain Scale: 0-10 Numeric Is Patient Pain Free? Yes Yes WC - Nurse 1 - General Ulcer Measurement Start: 12/21/23 15:28 Freq: Status: Active Protocol: Activity Type Activity Date Activity User E-sign Co-sign Detail Recorded Client Recorded Date Recorded By Document 12/28/23 10:31 KW [id number] 12/28/23 10:45 KW Document 01/04/24 10:35 KW [id number] 01/04/24 10:44 KW Document 01/11/24 11:13 KW [id number] 01/11/24 11:21 KW 12/28/23 01/04/24 01/11/24 10:31 10:35 11:13 Wound Center Nurse 1 #2 LT LAT LE -Current Size (cm) - Length 1 1 0.1 -Current Size (cm) - Width 0.7 0.5 0.1 -Current Size (cm) - Depth 0.1 0.1 0.1 -Total Square Cm 0.7 0.5 0.01 -Date of Last Picture (Recall this 12/28/23 01/11/24 field) -Epithelialization Large 67-100% Large 67-100% -Exudate Amt Small Small -Exudate Type Serosanguineous Serosanguineous -Wound Margin Distinct, Distinct, Outline Outline Attached Attached -Granulation Amt Large (67-100%) Large (67-100%) None Present (0 %) -Granulation Quality [place],Red Red -Slough/Fibrin No -Texture (Kiera-wound Skin Appearance) Assessed Assessed Assessed -Moisture (Kiera-wound Skin Appearance) Assessed Assessed Assessed -Color (Kiera-wound Skin Appearance) Assessed Assessed Assessed -Temperature (Kiera-wound Skin No Abnormality No Abnormality No Abnormality Appearance) (Pt Warm) (Pt Warm) (Pt Warm) -Tenderness on Palpation (Kiera-wound No No No Skin Appearance) -Ulcer Cleansing Soap and Water Soap and Water Soap and Water -Foul Odor after Cleansing No No No -Anesthetic Used 5% Lidocaine 5% Lidocaine Gel Gel -Wound Comment(s) appears healed Left Calf (cm) 54 Left Ankle (cm) 28 WC - Nurse 2 - General Ulcer CM Notes Start: 12/21/23 15:28 Freq: Status: Active Protocol: Activity Type Activity Date Activity User E-sign Co-sign Detail Recorded Client Recorded Date Recorded By Document 12/28/23 11:19 [id number] 12/28/23 11:25 Document 01/04/24 11:00 [id number] 01/04/24 11:01 Document 01/11/24 11:34 [id number] 01/11/24 11:34 12/28/23 01/04/24 01/11/24 11:19 11:00 11:34 Wound Center Nurse 2 #2 LAT LE -Time 11:21 11:00 11:34 -Correct Patient Yes Yes Yes -Correct Side, Site, Position Yes Yes Yes -Correct Procedure Yes -Procedure Performed Yes -Type of Procedure Debridement -Clinical Debridement Subcutaneous -Tissue Removed Subcutaneous -Post Debridement (cm) - Length 1.2 -Post Debridement (cm) - Width 0.5 -Post Debridement (cm) - Depth 0.1 -Total Square (Post) (cm) 0.60 -Area of Debridement (cm) - Length 1.2 -Area of Debridement (cm) - Width 0.5 -Total Square (Area) (cm) 0.60 -Tunneling No -Undermining/Tunneling No -Circular Undermining No -Wound/Ulcer Outcome Not Healed Healed- Healed- Epithelialized Epithelialized -Ulcer Cleansing Rinsed/ Irrigated with Saline -Foul Odor after Cleansing No -Bioengineered Tissue No -Bleeding Controlled with Pressure -Treatment Response Procedure Tolerated Well -Debridement - Subq, 1st 20sq cm Yes Pain Scale: 0-10 Numeric Is Patient Pain Free? Yes Yes Yes WC - Nurse 3 - General Ulcer D/C NN Start: 12/21/23 15:28 Freq: Status: Active Protocol: Activity Type Activity Date Activity User E-sign Co-sign Detail Recorded Client Recorded Date Recorded By Document 12/21/23 15:31 KW [id number] 12/21/23 15:34 KW Document 12/25/23 11:03 KW [id number] 12/25/23 11:07 KW Document 12/28/23 11:27 KW [id number] 12/28/23 11:28 KW Document 01/04/24 11:25 KW [id number] 01/04/24 11:26 KW Document 01/11/24 11:37 GM [id number] 01/11/24 11:38 GM 12/21/23 12/25/23 12/28/23 15:31 11:03 11:27 Vital Signs Temperature (97.8 F-99.1 F) 97.3 F L 96.7 F L Temperature Source Temporal Temporal Pulse Rate (60-100) 62 58 L Pulse Location Monitor Monitor Respiratory Rate (12-18) 18 18 Respiratory rate source Observation Observation Oxygen Delivery Method Room Air Room Air Blood Pressure (90/60-120/80) 129/74 H 161/76 H Blood Pressure Mean (mm Hg) 92 104 Source Monitor Monitor Position Semi-Fowlers Semi-Fowlers Blood Pressure Location Left Arm Left Forearm Pain Scale: 0-10 Numeric Is Patient Pain Free? Yes Yes Yes Wound Care Center Nurse 3 #2 LT LAT LE -Ulcer Cleansing Soap and Water -Foul Odor after Cleansing -Primary Dressing Applied Mepilex Border Mepilex Border -Other Dressing pt promogran pt promogran own promogran and foam -Primary Dressing Covered/Secured with -Mepilex Border 1 1 -Promogran Left -Multi-Layered Wrap Application Multi-Layer Multi-Layer Multi-Layer Comp - Left ($) Comp - Left ($) Comp - Left ($) WC - Visit Discharge Discharge Condition Stable Stable Ambulatory Status Ambulatory,Cane Cane Transportation Private Auto Medication Reconcilliation completed & No provided to patient/care provider Clinical Summary of Care Provided Yes 01/04/24 01/11/24 11:25 11:37 Vital Signs Temperature (97.8 F-99.1 F) Temperature Source Pulse Rate (60-100) Pulse Location Respiratory Rate (12-18) Respiratory rate source Oxygen Delivery Method Blood Pressure (90/60-120/80) Blood Pressure Mean (mm Hg) Source Position Blood Pressure Location Pain Scale: 0-10 Numeric Is Patient Pain Free? Yes Yes Wound Care Center Nurse 3 #2 LT LAT LE -Ulcer Cleansing Not Cleansed -Foul Odor after Cleansing No -Primary Dressing Applied Mepilex Border, Promogran -Other Dressing -Primary Dressing Covered/Secured with Dry Gauze & Roll Gauze, Secured with Tape -Mepilex Border 1 -Promogran 1 Left -Multi-Layered Wrap Application Multi-Layer Comp - Left ($) WC - Visit Discharge Discharge Condition Stable Ambulatory Status Ambulatory,Cane Transportation Private Auto Medication Reconcilliation completed & provided to patient/care provider Clinical Summary of Care Provided Assessment/Plan Assessment/Plan (1) Ulcer of left lower extremity with fat layer exposed: CODE(S): L97.922 - Non-pressure chronic ulcer of unspecified part of left lower leg with fat layer exposed (2) Varicose veins of both legs with edema: CODE(S): I83.893 - Varicose veins of bilateral lower extremities with other complications (3) Nicotine dependence: CODE(S): F17.200 - Nicotine dependence, unspecified, uncomplicated QUALIFIERS: Substance use status: in remission (4) Paroxysmal atrial fibrillation: CODE(S): I48.0 - Paroxysmal atrial fibrillation (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 No acute concerns reported at this time. Consistent use of compression, leg elevation and exercise as tolerated again discussed, he voiced understanding. Cover area with gauze and tape for 2 weeks and then stop he was advised to call with any questions or concerns. Discharge from the wound center. This note was generated with [email or web address] software. It may contain incorrect words, spelling, and punctuation that were not noted in checking the note before signing.
--- NOTE | 2024-01-12 10:16 | WC ---
PHOTO 01/11/24 LEFT LATERAL LE
== END 2024-01-11 13:51 | disposition home or self-care (01) ==
LOC: WC 10:30
PROVIDERS: Visit Provider Internal Medicine
DX: I83.029 Varicose veins of left lower extremity with ulcer of unspecified site (principal); L97.922 Non-pressure chronic ulcer of unspecified part of left lower leg with fat layer exposed; I48.0 Paroxysmal atrial fibrillation; I83.891 Varicose veins of right lower extremity with other complications; I25.10 Atherosclerotic heart disease of native coronary artery without angina pectoris; G89.29 Other chronic pain; M54.9 Dorsalgia, unspecified; F17.201 Nicotine dependence, unspecified, in remission; Z79.82 Long term (current) use of aspirin; Z79.01 Long term (current) use of anticoagulants; Z79.899 Other long term (current) drug therapy
CPT/HCPCS: 11042; 29581; 99213; G0463

== ENCOUNTER 2025-03-09 13:44 | Emergency (ER) | payer MEDICARE, SELFPAY ==
[2019-07-19 12:16] VITALS: BMI 49.4
[2025-03-09 13:45] VITALS: BP 115/75; PULSE 68; RESP 15; TEMP 36.8; O2SAT 99; BMI 50.1
--- NOTE | 2025-03-09 14:12 | EKG12_ITS ---
Test Reason : CP/SOB Blood Pressure : */* mmHG Vent. Rate : 84 BPM Atrial Rate : 84 BPM P-R Int : 208 ms QRS Dur : 88 ms QT Int : 392 ms P-R-T Axes : * 7 91 degrees QTcB Int : 463 ms Sinus rhythm with marked sinus arrhythmia Nonspecific T wave abnormality Abnormal ECG Confirmed by Sam Belle ([id number]), copy editor JOESPH RENDON ([id number]) on 03/11/2025 11:29:32 AM Also confirmed by Sam Belle ([id number]), copy editor JOESPH RENDON ([id number]) on 03/12/2025 10:54:32 AM Referred By: VANESSA/ISRAEL Confirmed By: Sam Belle
--- NOTE | 2025-03-09 14:20 | RAD_ITS ---
PROCEDURE: CHEST PA AND LATERAL 03/09/2025 REASON FOR EXAM: CHEST PAIN TECHNIQUE: Procedure Code: RADCXR Modality: DX Procedure: CHEST PA AND LATERAL COMPARISON: Chest radiograph 03/03/2019 FINDINGS: Right lower lung opacification. No pneumothorax or pleural effusion. Prominent hilar markings which may reflect pulmonary congestion. The cardiomediastinal silhouette is within normal limits. Degenerative changes of the thoracic spine. There is a thoracic spinal cord stimulator. RAD/Chest PA and Lateral IMPRESSION: Right lower lung opacification which may reflect airspace disease. Reading Location: [id number]
--- OUTSIDE RECORDS SUMMARY | 2025-03-09 14:23 | XMS RPT_ITS | CCD ---
Author Organization [facility]ini[facility] Care Team Providers Care Caddie Name Role Phone Terry Turk Primary Care Provider 1(3 [phone]) Dr. Gagandeep Barclay Primary Care Provider 1(330) Dr. Polo Chen Attending Provider Dr. Memo Cardenas Emergency Provider Dr. Jeremiah Pierreit Provider Dr. Jeremiah Pierre Other Provider Dr. Christianne Villa Attending Provider Dr. Christianne Villa Other Provider GAGANDEEP BARCLAY DO Primary Care Physician Dr. Gagandeep Barclay Primary Care Provider 1(330) Dr. Polo Chen Attending Provider Dr. Memo Cardenas Referring Provider Dr. Memo Cardenas Emergency Provider Dr. Jeremiah Pierreit Provider Dr. Jeremiah Pierre Other Provider Dr. Christianne Villa Attending Provider Dr. Christianne Villa Other Provider Dr. Terry Turk Referring Provider 1(330) Dr. Main Joyce Attending Provider GAGANDEEP BARCLAY DO Primary Care Unavailable GAGANDEEP BARCLAY DO Attending Unavailable GAGANDEEP BARCLAY DO Attending Unavailable GAGANDEEP BARCLAY DO Primary Care Unavailable BARCLAY DO, GAGANDEEP E Primary Care Unavailable BARCLAY DO, GAGANDEEP E Attending Unavailable POLO ROD MD Attending Unavailable BARCLAY DO, GAGANDEEP E Primary Care Unavailable VILLATORO REGENERATOR OPERATOR-MANUFACTURING TECHNOLOGY ANALYST, BRENT Brown Attending Sherry vailable BARCLAY DO, GAGANDEEP E Primary Care Unavailable BARCLAY DO, GAGANDEEP E Primary Care Unavailable VILLATORO REGENERATOR OPERATOR-MANUFACTURING TECHNOLOGY ANALYST, BRENT Brown Attending Sherry vailable [facility]-MANUFACTURING TECHNOLOGY ANALYST, BRENT Brown Attending Sherry vailable BARCLAY DO, GAGANDEEP E Primary Care Unavailable BARCLAY DO, GAGANDEEP E Primary Care Unavailable VILLATORO REGENERATOR OPERATOR-MANUFACTURING TECHNOLOGY ANALYST, BRENT Brown Attending Sherry vailable BARCLAY DO, GAGANDEEP E Primary Care Unavailable BARCLAY DO, GAGANDEEP E Attending Unavailable BARCLAY DO, GAGANDEEP E Primary Care Unavailable ANTHONY FERNÁNDEZ Attending Unavailable BARCLAY DO, GAGANDEEP E Primary Care Unavailable MARS ESQUIVEL Attending Unavailable BARCLAY DO, GAGANDEEP E Primary Care Unavailable DORENE CRUZ Attending Unavailabl e BARCLAY DO, GAGANDEEP E Primary Care Unavailable ANTHONY FERNÁNDEZ Attending Unavailable BENEDICT HOYT MD Attending Unavailab le BARCLAY DO, GAGANDEEP E Primary Care Unavailable BARCLAY DO, GAGANDEEP E Attending Unavailable BARCLAY DO, GAGANDEEP E Primary Care Unavailable BARCLAY DO, GAGANDEEP E Primary Care Unavailable AZALIA [place] DO Attending Unavailable BARCLAY DO, GAGANDEEP E Primary Care Unavailable BARCLAY DO, GAGANDEEP E Attending Unavailable BARCLAY DO, GAGANDEEP E Primary Care Unavailable [facility]-MANUFACTURING TECHNOLOGY ANALYST, BRENT Brown Attending Sherry vailable BARCLAY DO, GAGANDEEP E Primary Care Unavailable ZEFERINO [place]AD[place] DO Attending Unavailable POLO ROD MD Attending Unavailable BARCLAY DO, GAGANDEEP E Primary Care Unavailable BARCLAY DO, GAGANDEEP E Primary Care Unavailable MARS ESQUIVEL Attending Unavailable BARCLAY DO, GAGANDEEP E Primary Care Unavailable ANTHONY FERNÁNDEZ Attending Unavailable AZALIA [place] MD Consulting Unavailable BARCLAY DO, GAGANDEEP E Primary Care Unavailable ANTHONY FERNÁNDEZ Attending Unavailable EKATERINA BLUE MD Consulting Unavailable BARCLAY DO, GAGANDEEP E Consulting Unavailable BARCLAY DO, GAGANDEEP E Primary Care Unavailable MARS ESQUIVEL Attending Unavailable Gagandeep Barclay Referring Unavailable Benedict Hoyt Attending Unavailable Deny, Gagandeep Primary Care Unavailable Deny, Gagandeep Primary Care Unavailable Deny Gagandeep Referring Unavailable Benedict Hoyt Attending Unavailable Deny, Gagandeep Primary Care Unavailable Deny, Gagandeep Referring Unavailable Main Joyce Attending Unavailable Barclay, Gagandeep Referring Unavailable Oleghe, Efewongbe Attending Unavailable Oleghe, Efewongbe Consulting Unavailable Gagandeep Barclay Primary Care Unavailable Gagandeep Barclay Primary Care Unavailable Oleghe, Efewongbe Attending Unavailable Gagandeep Barclay Referring Unavailable Oleghe, Efewongbe Consulting Unavailable Gagandeep Barclay Primary Care Unavailable Gagandeep Barclay Referring Unavailable Oleghe, Efewongbe Attending Unavailable Oleghe, Efewongbe Consulting Unavailable Gagandeep Barclay Primary Care Unavailable Gagandeep Barclay Referring Unavailable Oleghe, Efewongbe Attending Unavailable Oleghe, Efewongbe Consulting Unavailable Gagandeep Barclay Referring Unavailable Oleghe, Efewongbe Attending Unavailable Oleghe, Efewongbe Consulting Unavailable Gagandeep Barclay Primary Care Unavailable Gagandeep Barclay Primary Care Unavailable Gagandeep Barclay Referring Unavailable Oleghe, Efewongbe Attending Unavailable Oleghe, Efewongbe Consulting Unavailable Gagandeep Barclay Primary Care Unavailable Gagandeep Barclay Referring Unavailable Oleghe, Efewongbe Attending Unavailable Oleghe, Efewongbe Consulting Unavailable Oleghe, Efewongbe Consulting Unavailable Gagandeep Barclay Primary Care Unavailable Gagandeep Barclay Referring Unavailable Oleghe, Efewongbe Attending Unavailable Gagandeep Barclay Primary Care Unavailable Gagandeep Barclay Referring Unavailable Oleghe, Efewongbe Attending Unavailable Gagandeep Barclay Primary Care Unavailable Maria Del Carmen, Main Referring Unavailable Maria Del Carmen, Main Attending Unavailable Gagandeep Barclay Primary Care Unavailable Maria Del Carmen, [place] Attending Unavailable Oleghe, Efewongbe Consulting Unavailable Gagandeep Barclay Referring Unavailable Gagandeep Barclay Primary Care Unavailable Oleghe, Efewongbe Attending Unavailable Gagandeep Barclay Referring Unavailable Oleghe, Efewongbe Consulting Unavailable Oleghe, Efewongbe Attending Unavailable Gagandeep Barclay Primary Care Unavailable Gagandeep Barclay Referring Unavailable Gagandeep Barclay Primary Care Unavailable Lien Cortes NP Attending Unavailable GAGANDEEP BARCLAY DO Primary Care Unavailable DIGNA JORDAN-SERA, AKSHAT Dupree Attending Sherry vailable GAGANDEEP BARCLAY DO Primary Care Unavailable RONY REGENERATOR OPERATOR-MANUFACTURING TECHNOLOGY ANALYSTSAMANTHA Attending Unavailab le DIGNA REGENERATOR OPERATOR-MANUFACTURING TECHNOLOGY ANALYSTAKSHAT Attending Sherry vailable GAGANDEEP BARCLAY DO Primary Care Unavailable GAGANDEEP BARCLAY DO Attending Unavailable GAGANDEEP BARCLAY DO Primary Care Unavailable BARCLAY DO, GAGANDEEP E Primary Care Unavailable BARCLAY DO, GAGANDEEP E Attending Unavailable RONY REGENERATOR OPERATOR-MANUFACTURING TECHNOLOGY ANALYST, SAMANTHA Attending Unavailab le BARCLAY DO, GAGANDEEP E Primary Care Unavailable BARCLAY DO, GAGANDEEP E Primary Care Unavailable BARCLAY DO, GAGANDEEP E Attending Unavailable BARCLAY DO, GAGANDEEP E Primary Care Unavailable BARCLAY DO, GAGANDEEP E Attending Unavailable BARCLAY DO, GAGANDEEP E Primary Care Unavailable BARCLAY DO, GAGANDEEP E Attending Unavailable BARCLAY DO, GAGANDEEP E Primary Care Unavailable BARCLAY DO, GAGANDEEP E Attending Unavailable SHAUNA REGENERATOR OPERATOR-MANUFACTURING TECHNOLOGY ANALYST, BRENT Brown Attending Sherry vailable DENY DO, GAGANDEEP E Primary Care Unavailable BARCLAY DO, GAGANDEEP E Primary Care Unavailable BEN AUGUST MD Attending Unavailable Allergies Allergy Classification Reported Allergen(s) Allergy Type Date of Onset Reaction(s) Facility Contrast Media (1 source) Contrast media Substance Allergy 2 Rash, [facility] Work Phone: Penicillins (antibiotic) (1 source) [facility] [address] Work Phone: pregabalin (1 source) pregabalin Drug Allergy 2 Swelling [facility] Work Phone: (20 sources) Contrast media; Translations: [red dye] Allergy to substance 2 Angioedema, [facility] (7 sources) Penicillins; Translations: [Penicillins] Allergy to substance 2 [facility] (20 sources) pregabalin; Translations: [pregabalin] Drug Allergy 2 [facility] (20 sources) Penicillin; Translations: [penicillins] Drug Allergy [facility] (1 source) pregabalin Drug Allergy 4 [facility] (2 sources) Penicillin; Translations: [penicillins] Drug Allergy [facility] Medications Current Medications Medication Drug Class(es) Dates Sig (Normalized) Sig (Original) acetaminophen 325 mg / HYDROcodone bitartrate 10 mg oral tablet (20 sources) Opioid Agonist Start: 03-22-2023 End: 04-21-2023 take 1 tablet by mouth four times daily as needed for pain acetaminophen-hydroco done 325 mg-10 mg oral tablet Dose = 1 tab(s), Oral, QID, PRN for pain, # 120 tab(s), 0 Refill(s), May take 1-2 tablets per dose, [facility]acy: [facility] #[id number], Chronic pain Lumbar postlaminectomy syndrome, 180, cm, 03/22/23 12:03:00 EST, Height, 159, kg, 03/22/23 12:03:00 EST, Dosing Weight Start Date: 03/22/23 Stop Date: 04/21/23 Status: Ordered Start: 02-15-2023 End: 03-17-2023 take 1 tablet by mouth four times daily as needed for pain acetaminophen-hydrocodone 325 mg-10 mg o ral tablet Dose = 1 tab(s), Oral, QID, PRN for pain, # 120 tab(s), 0 Refill(s), May take 1-2 tablets per dose, [facility]acy: [facility] #[id number], Chronic pain Lumbar postlaminectomy syndrome, 180, cm, 02/15/23 12:44:00 EST, Height, 152, kg, 02/15/23 12:44:00 EST, Dosing Weight Start Date: 02/15/23 Stop Date: 03/17/23 Status: Ordered Start: 11-23-2022 End: 02-15-2023 take 1 tablet by mouth every six hours as needed for pain acetaminophen-hydrocodone 325 mg-10 mg o ral tablet Dose = 1 tab(s), Oral, q6h, PRN for pain, X 30 day(s), # 120 tab(s), 0 Refill(s), [facility]acy: [facility] #[id number], Chronic radicular lumbar pain Chronic pain, 185, cm, 01/16/23 12:34:00 EDT, Height, 155.8, kg, 01/16/23 12:34:00 EDT, Dosing Weight Start Date: 01/16/23 Stop Date: 02/15/23 Status: Ordered Start: 08-24-2022 End: 10-14-2022 take 1 tablet by mouth four times daily as needed for pain acetaminophen-hydrocodone 325 mg-7.5 mg oral tablet Dose = 1 tab(s), Oral, QID, PRN as needed for pain, # 120 tab(s), 0 Refill(s), Pharmacy: [facility] #[id number], Lumbar spondylosis Lumbar spinal stenosis, 185, cm, 09/14/22 12:50:00 EDT, Height, 161.6, kg, 09/14/22 12:50:00 EDT, Dosing Weight Start Date: 09/14/22 Stop Date: 10/14/22 Status: Ordered Start: 07-20-2022 End: 08-19-2022 take 1 tablet by mouth four times daily as needed for pain acetaminophen-hydrocodone 325 mg-7.5 mg oral tablet Dose = 1 tab(s), Oral, QID, PRN PRN as needed for pain, # 120 tab(s), 0 Refill(s), Pharmacy: [facility] #[id number], Lumbar spondylosis Lumbar spinal stenosis, 180, cm, 07/20/22 10:19:00 EDT, Height, 160, kg, 07/20/22 10:19:00 EDT, Dosing Weight Start Date: 07/20/22 Stop Date: 08/19/22 Status: Ordered Start: 12-01-2021 take 1 tablet by elyse th three to four times daily as needed for pain Hydrocodone-Acetaminophen Active 1 TABLE T PO THREE TIMES A DAY December 01, 2021 12:00am TAKE 1 TABLET BY MOUTH THREE TO FOUR TIMES A DAY NEEDED FOR PAIN Start: 08-20-2021 End: 09-19-2021 take 1 tablet by mouth every six hours as needed for pain acetaminophen-hydrocodone 325 mg-7.5 mg oral tablet Dose = 1 tab(s), Oral, q6hr, PRN as needed for pain, Attempt to reduce dose to 100 tablets/30 days, # 120 tab(s), 0 Refill(s), Pharmacy: [facility]/pharmacy #[id number], Osteoarthritis, 180.3, cm, 08/20/21 9:49:00 EDT, Height, 161.9, kg, 08/20/21 9:49:00 EDT, Dosi... Start Date: 08/20/21 Stop Date: 09/19/21 Status: Ordered Start: 03-03-2019 Hydrocodone-Ac etaminophen Active 1 EACH PO 4 TIMES DAILY NEEDED March 03, 2019 1:00am acetaminophen 325 mg / oxyCODONE hydrochloride 7.5 mg oral tablet (11 sources) Opioid Agonist Start: 01-08-2025 End: 02-07-2025 take 1 tablet by mouth four times daily as needed for pain acetaminophen-oxycodone 325 mg-7.5 mg oral tablet Dose = 1 tab(s), Oral, QID, PRN for pain, ok to fill 01/08/25, # 120 tab(s), 0 Refill(s), [id number], Lumbar postlaminectomy syndrome Chronic radicular lumbar pain, 180, cm, 01/06/25 14:30:00 EDT, Height, 161, kg, 01/06/25 14:30:00 EDT, Dosing Weight Start Date: 01/08/25 Stop Date: 02/07/25 Status: Ordered Medication Dispense Status: Completed Quantity: 120.0 Unit: tab(s) Total Allowed Fills: 1 Fills Dispensed: 0 Indications: Radiculopathy, lumbar region; Postlaminectomy syndrome, not elsewhere classified; Start: 09-09-2024 End: 10-09-2024 take 1 tablet by mouth four times daily as needed for pain acetaminophen-oxycodone 325 mg-7.5 mg or al tablet Dose = 1 tab(s), Oral, QID, PRN for pain, ok to fill 09/09/24, # 120 tab(s), 0 Refill(s), [id number], Lumbar postlaminectomy syndrome Chronic radicular lumbar pain, 180, cm, 09/09/24 11:14:00 EDT, Height, 165, kg, 09/09/24 11:14:00 EDT, Dosing Weight Start Date: 09/09/24 Stop Date: 10/09/24 Status: Ordered Quantity: 120.0 Unit: tab(s) Repeat number: 1 Indications: Postlaminectomy syndrome, not elsewhere classified; Radiculopathy, lumbar region; Start: 09-11-2023 End: 12-06-2023 take 1 tablet by mouth four times daily as needed for pain acetaminophen-oxycodone 325 mg-7.5 mg or al tablet Dose = 1 tab(s), Oral, QID, PRN for pain, # 120 tab(s), 0 Refill(s), [facility]: [facility] #[id number], Lumbar postlaminectomy syndrome, 180, cm, 11/06/23 11:28:00 EDT, Height, 156, kg, 11/06/23 11:34:00 EDT, Dosing Weight Start Date: 11/06/23 Stop Date: 12/06/23 Status: Ordered Start: 05-24-2023 End: 06-23-2023 take 1 tablet by mouth four times daily as needed for pain acetaminophen-oxycodone 325 mg-7.5 mg or al tablet Dose = 1 tab(s), Oral, QID, PRN for pain, d/c norco 10mg, # 120 tab(s), 0 Refill(s), [facility]acy: [facility] #[id number], Lumbar postlaminectomy syndrome, 180, cm, 05/24/23 11:48:00 EST, Height, 155.9, kg, 05/24/23 11:48:00 EST, Dosing Weight Start Date: 05/24/23 Stop Date: 06/23/23 Status: Ordered Start: 03-30-2023 End: 05-19-2023 take 1 tablet by mouth four times daily as needed for pain acetaminophen-oxycodone 325 mg-7.5 mg or al tablet Dose = 1 tab(s), Oral, QID, PRN for pain, d/c norco 10mg, # 120 tab(s), 0 Refill(s), [facility]: [facility] #[id number], Lumbar postlaminectomy syndrome, 180, cm, 04/19/23 12:15:00 EST, Height, 156.3, kg, 04/19/23 12:15:00 EST, Dosing Weight Start Date: 04/19/23 Stop Date: 05/19/23 Status: Ordered [id number] 200 actuat albuterol 0.09 mg/actuat metered dose inhaler (20 sources) beta2-Adrenergic Agonist Start: 02-20-2020 take 2 puff(s) by inhalation every four hours as needed for wheezing ProAir HFA MDI (90 mcg/inh) inhalation aerosol 2 puff(s), Inhalation, q4h, PRN as needed for wheezing, # 1 EA, 11 Refill(s), Pharmacy: [facility]/pharmacy #[id number], 179, cm, 02/19/20 13:43:00 EST, Height, kg, 02/19/20 13:43:00 EST, Dosing Weight Start Date: 02/20/20 Status: Ordered Medication Dispense Status: Completed Quantity: 1.0 Unit: EA Total Allowed Fills: 12 Fills Dispensed: 0 Start: 02-19-2020 take 1 puff(s) by in halation every four hours as needed Albuterol Sulfate Active 1 - 2 PUFF INHALATION EVERY 4 HOURS NEEDED February 19, 2020 1:00am Start: 09-26-2018 take 1 dose by inhal ation every four hours as needed albuterol 2.5 mg/3 mL (0.083%) inhalation solution Dose : 2.5 mg = 3 mL, Inhalation, q4h, PRN for wheezing, # 25 EA, 0 Refill(s) Start Date: 09/26/18 Status: Ordered take 2 puff(s) by in halation every six hours as needed albuterol HFA (PROAIR HFA) 90 mcg/Actuation INHALATION inhaler Inhale 2 Puffs as instructed every 6 hours as needed. 0 Active Comment on above: Inhale 2 Puffs as in structed every 6 hours as needed. allopurinol 100 mg oral tablet (20 sources) Xanthine Oxidase Inhibitor Start: 10-04-2024 allopurinol 100 mg oral tablet Dose : 200 mg = 2 tab(s), Oral, qDayPC, # 180 tab(s), 0 Refill(s), Pharmacy: [facility], 180, cm, 10/04/24 10:49:00 EDT, Height, kg, 10/04/24 10:49:00 EDT, Dosing Weight Start Date: 10/04/24 Status: Ordered Medication Dispense Status: Completed Quantity: 180.0 Unit: tab(s) Total Allowed Fills: 1 Fills Dispensed: 0 Start: 06-09-2024 allopurinol 10 0 mg oral tablet Dose : 200 mg = 2 tab(s), Oral, qDayPC, # 180 tab(s), 0 Refill(s), Pharmacy: [facility] #[id number], 180, cm, 06/03/24 10:49:00 EDT, Height, kg, 06/03/24 10:49:00 EDT, Dosing Weight Start Date: 06/09/24 Status: Ordered Quantity: 180.0 Unit: tab(s) Repeat number: 1 Start: 10-20-2023 allopurinol 10 0 mg oral tablet Dose : 200 mg = 2 tab(s), Oral, qDayPC, # 180 tab(s), 0 Refill(s), [facility]: [facility] #[id number], 180, cm, 10/20/23 10:07:00 EDT, Height, kg, 10/20/23 9:57:00 EDT, Dosing Weight Start Date: 10/20/23 Status: Ordered Start: 09-19-2023 allopurinol 10 0 mg oral tablet Dose : 100 mg = 1 tab(s), Oral, qDayPC, # 90 tab(s), 1 Refill(s), Pharmacy: [facility] #[id number], 180, cm, 09/19/23 11:17:00 EDT, Height, kg, 09/19/23 11:17:00 EDT, Dosing Weight Start Date: 09/19/23 Status: Ordered Start: 05-05-2023 allopurinol 10 0 mg oral tablet Dose : 100 mg = 1 tab(s), Oral, qDayPC, # 90 tab(s), 1 Refill(s), Pharmacy: [facility], 180, cm, 04/19/23 12:15:00 EST, Height, kg, 04/19/23 12:15:00 EST, Dosing Weight Start Date: 05/05/23 Status: Ordered Start: 03-17-2023 allopurinol 10 0 mg oral tablet Dose : 100 mg = 1 tab(s), Oral, qDayPC, # 90 tab(s), 0 Refill(s), Pharmacy: [facility] #[id number], 180, cm, 03/15/23 12:13:00 EST, Height, kg, 03/15/23 12:13:00 EST, Dosing Weight Start Date: 03/17/23 Status: Ordered Start: 12-02-2021 allopurinol 10 0 mg oral tablet Dose : 100 mg = 1 tab(s), Oral, qDayPC, # 90 tab(s), 1 Refill(s), Pharmacy: [facility] #[id number], 180, cm, 05/24/22 10:57:00 EST, Height, kg, 05/24/22 10:57:00 EST, Dosing Weight Start Date: 05/24/22 Status: Ordered amitriptyline hydrochloride 10 mg oral tablet (3 sources) Tricyclic Antidepressant Start: 10-09-2023 End: 11-08-2023 amitriptyline 10 mg oral tablet Dose : 10 mg = 1 tab(s), Oral, qHS, take 1 tablet for 5 days and then increase to 2 tablets for 5 days and then increase to 3 tablets for the remaining month \, # 30 tab(s), 0 Refill(s), Pharmacy: [facility] #[id number], 180, cm, 10/09/23 11:40:00 EDT, Height, kg, 10/09/23 11:40:00 EDT, Dosing Weight Start Date: 10/09/23 Stop Date: 11/08/23 Status: Ordered amLODIPine 5 mg oral tablet (20 sources) Dihydropyridine Calcium Channel Zac Start: 09-10-2024 End: 10-10-2024 amLODIPine 5 mg oral tablet Dose : 5 mg = 1 tab(s), Oral, qDay, # 100 tab(s), 0 Refill(s), [facility], 180, cm, 10/04/24 10:49:00 EDT, Height, kg, 10/04/24 10:49:00 EDT, Dosing Weight Start Date: 10/04/24 Status: Ordered Medication Dispense Status: Completed Quantity: 100.0 Unit: tab(s) Total Allowed Fills: 1 Fills Dispensed: 0 Start: 09-19-2023 take 1 tablet by elyse th once daily amLODIPine 5 mg oral tablet See Instructions, TAKE 1 TABLET BY MOUTH EVERY DAY, # 100 tab(s), 0 Refill(s), Pharm[facility]: [facility] #[id number], 180, cm, 09/19/23 11:17:00 EDT, Height, kg, 09/19/23 11:17:00 EDT, Dosing Weight Start Date: 09/19/23 Status: Ordered Start: 03-16-2023 take 1 tablet by elyse th once daily amLODIPine 5 mg oral tablet See Instructions, TAKE 1 TABLET BY MOUTH EVERY DAY, # 30 tab(s), 0 Refill(s), Pharmacy: [facility], 180, cm, 03/15/23 12:13:00 EST, Height, kg, 03/15/23 12:13:00 EST, Dosing Weight Start Date: 03/16/23 Status: Ordered Start: 09-04-2022 take 1 tablet by elyse th once daily amLODIPine 5 mg oral tablet See Instructions, TAKE 1 TABLET BY MOUTH EVERY DAY, # 90 tab(s), 1 Refill(s), Pharmacy: [facility], 189.1, cm, 08/25/22 10:51:00 EDT, Height, kg, 08/25/22 10:51:00 EDT, Dosing Weight Start Date: 09/04/22 Status: Ordered Start: 06-21-2021 take 1 tablet by elyse th once daily amLODIPine 5 mg oral tablet See Instructions, TAKE 1 TABLET BY MOUTH EVERY DAY, # 90 tab(s), 1 Refill(s), Pharmacy: [facility], 180, cm, 02/28/22 10:42:00 EST, Height, kg, 02/28/22 10:42:00 EST, Dosing Weight Start Date: 02/28/22 Status: Ordered Start: 01-30-2019 take 5 mg by mouth once daily Amlodipine Active 5 MG PO DAILY January 30, 2019 4:04pm Start: 09-28-2018 End: 01-30-2019 take 10 mg by mouth once daily Amlodipine Discontinued 10 MG PO DAILY 30 September 28, 2018 12:00am January 30, 2019 4:04pm Start: 08-23-2018 End: 09-28-2018 take 10 mg by mouth twice daily Amlodipine Discontinued 10 MG PO TWICE A DAY 60 August 23, 2018 12:00am September 28, 2018 3:08pm Comment on above: Take 10 mg by mouth once daily. aspirin 81 mg delayed release oral tablet (20 sources) Platelet Aggregation Inhibitor, Nonsteroidal Anti-inflammatory Drug Start: 03-05-2019 aspirin 81 mg oral delayed release tablet Dose : 81 mg = 1 tab(s), Oral, qDay, # 90 tab(s), 3 Refill(s), Pharm[facility]: [facility] #[id number], 189.1, cm, 08/25/22 10:51:00 EDT, Height, kg, 08/25/22 10:51:00 EDT, Dosing Weight Start Date: 08/25/22 Status: Ordered Start: 09-27-2018 End: 03-05-2019 take 325 mg by mouth once daily Aspirin Discontinued 325 MG PO DAILY September 27, 2018 12:00am March 05, 2019 12:20pm Start: 09-26-2018 aspirin 325 mg oral delayed release tablet Dose : 325 mg = 1 tab(s), Oral, qDay, # 30 tab(s), 0 Refill(s) Start Date: 09/26/18 Status: Ordered atorvastatin 80 mg oral tablet (20 sources) HMG-CoA Reductase Inhibitor Start: 10-04-2024 atorvastatin 80 mg oral tablet Dose : 80 mg = 1 tab(s), Oral, qDay, # 100 tab(s), 3 Refill(s), Pharmacy: [facility], 180, cm, 10/04/24 10:49:00 EDT, Height, kg, 10/04/24 10:49:00 EDT, Dosing Weight Start Date: 10/04/24 Status: Ordered Medication Dispense Status: Completed Quantity: 100.0 Unit: tab(s) Total Allowed Fills: 4 Fills Dispensed: 0 Start: 07-26-2024 atorvastatin 8 0 mg oral tablet Dose : 80 mg = 1 tab(s), Oral, qDay, # 100 tab(s), 3 Refill(s), [facility]: [facility] #[id number], 180.3, cm, 07/26/24 10:56:00 EDT, Height, kg, 07/26/24 10:56:00 EDT, Dosing Weight Start Date: 07/26/24 Status: Ordered Quantity: 100.0 Unit: tab(s) Repeat number: 4 Start: 03-05-2019 atorvastatin 8 0 mg oral tablet Dose : 80 mg = 1 tab(s), Oral, qDay, # 90 tab(s), 3 Refill(s), Pharmacy: [facility] #[id number], 180, cm, 05/24/22 10:57:00 EST, Height, kg, 05/24/22 10:57:00 EST, Dosing Weight Start Date: 05/24/22 Status: Ordered cephalexin 500 mg oral capsule (20 sources) Cephalosporin Antibacterial Start: 10-04-2024 cephalexin 500 mg or al capsule Dose : 500 mg = 1 cap(s), Oral, BID, hx of persistant hip infections post-replacement, # 180 cap(s), 1 Refill(s), Pharmacy: [facility], 180, cm, 10/04/24 10:49:00 EDT, Height, 166.6, kg, 10/04/24 10:49:00 EDT, Dosing Weight Start Date: 10/04/24 Status: Ordered Medication Dispense Status: Completed Quantity: 180.0 Unit: cap(s) Total Allowed Fills: 2 Fills Dispensed: 0 Start: 09-19-2023 cephalexin 500 mg oral capsule Dose : 500 mg = 1 cap(s), Oral, BID, hx of persistant hip infections post-replacement, # 180 cap(s), 1 Refill(s), [facility]acy: [facility] #[id number], 180, cm, 09/19/23 11:17:00 EDT, Height, 155, kg, 09/19/23 11:17:00 EDT, Dosing Weight Start Date: 09/19/23 Status: Ordered Quantity: 180.0 Unit: cap(s) Repeat number: 2 Start: 05-05-2023 cephalexin 500 mg oral capsule Dose : 500 mg = 1 cap(s), Oral, BID, hx of persistant hip infections post-replacement, # 180 cap(s), 1 Refill(s), Pharmacy: [facility], 180, cm, 04/19/23 12:15:00 EST, Height, 156.3, kg, 04/19/23 12:15:00 EST, Dosing Weight Start Date: 05/05/23 Status: Ordered Start: 03-23-2023 cephalexin 500 mg oral capsule Dose : 500 mg = 1 cap(s), Oral, BID, hx of persistant hip infections post-replacement, # 180 cap(s), 1 Refill(s), Pharmacy: [facility] #[id number], 180, cm, 03/22/23 12:03:00 EST, Height, 159, kg, 03/22/23 12:03:00 EST, Dosing Weight Start Date: 03/23/23 Status: Ordered Start: 04-26-2022 cephalexin 500 mg oral capsule Dose : 500 mg = 1 cap(s), Oral, q12h, # 180 cap(s), 1 Refill(s), [facility]: [facility] #[id number], 189.1, cm, 08/25/22 10:51:00 EDT, Height, 160.8, kg, 08/25/22 10:51:00 EDT, Dosing Weight Start Date: 08/25/22 Status: Ordered Start: 11-26-2021 End: 12-28-2021 take 500 mg by mouth twice daily Cephalexin Discontinued 500 MG PO TWICE A DAY December 01, 2021 12:00am December 28, 2021 3:03pm Start: 04-04-2013 End: 04-04-2013 Cephalexin (Keflex) 500 MG c apsule Discontinued 500 MG PO April 04, 2013 1:00am April 04, 2013 4:20pm cloNIDine hydrochloride 0.1 mg oral tablet (20 sources) Central alpha-2 Adrenergic Agonist Start: 10-04-2024 take 1 tablet by mouth twice daily cloNIDine 0.1 mg oral tablet See Instructions, TAKE 1 TABLET BY MOUTH TWICE A DAY, # 200 tab(s), 1 Refill(s), Pharmacy: [facility], 180, cm, 10/04/24 10:49:00 EDT, Height, kg, 10/04/24 10:49:00 EDT, Dosing Weight Start Date: 10/04/24 Status: Ordered Medication Dispense Status: Completed Quantity: 200.0 Unit: tab(s) Total Allowed Fills: 2 Fills Dispensed: 0 Start: 04-09-2024 take 1 tablet by elyse th twice daily cloNIDine 0.1 mg oral tablet See Instructions, TAKE 1 TABLET BY MOUTH TWICE A DAY, # 200 tab(s), 1 Refill(s), [facility]: [facility] #[id number], 180, cm, 04/09/24 11:05:00 EST, Height, kg, 04/09/24 11:05:00 EST, Dosing Weight Start Date: 04/09/24 Status: Ordered Quantity: 200.0 Unit: tab(s) Repeat number: 2 Start: 09-19-2023 take 1 tablet by elyse th twice daily cloNIDine 0.1 mg oral tablet See Instructions, TAKE 1 TABLET BY MOUTH TWICE A DAY, # 200 tab(s), 0 Refill(s), [facility]: [facility] #[id number], 180, cm, 09/19/23 11:17:00 EDT, Height, kg, 09/19/23 11:17:00 EDT, Dosing Weight Start Date: 09/19/23 Status: Ordered Start: 03-16-2023 take 1 tablet by elyse th twice daily cloNIDine 0.1 mg oral tablet See Instructions, TAKE 1 TABLET BY MOUTH TWICE A DAY, # 60 tab(s), 0 Refill(s), Pharmacy: [facility], 180, cm, 03/15/23 12:13:00 EST, Height, kg, 03/15/23 12:13:00 EST, Dosing Weight Start Date: 03/16/23 Status: Ordered Start: 09-04-2022 take 1 tablet by elyse twice daily cloNIDine 0.1 mg oral tablet See Instructions, TAKE 1 TABLET BY MOUTH TWICE A DAY, # 180 tab(s), 1 Refill(s), Pharmacy: [facility], 189.1, cm, 08/25/22 10:51:00 EDT, Height, kg, 08/25/22 10:51:00 EDT, Dosing Weight Start Date: 09/04/22 Status: Ordered Start: 02-28-2022 take 1 tablet by elyse twice daily cloNIDine 0.1 mg oral tablet See Instructions, TAKE 1 TABLET BY MOUTH TWICE A DAY, # 180 tab(s), 1 Refill(s), Pharmacy: [facility], 180, cm, 02/28/22 10:42:00 EST, Height, kg, 02/28/22 10:42:00 EST, Dosing Weight Start Date: 02/28/22 Status: Ordered Start: 03-12-2021 take 1 tablet by elyse twice daily cloNIDine 0.1 mg oral tablet See Instructions, TAKE 1 TABLET BY MOUTH TWICE A DAY, # 180 tab(s), 3 Refill(s), Pharmacy: [facility]/pharmacy #[id number], 179, cm, 12/14/20 11:13:00 EDT, Height, kg, 12/14/20 11:13:00 EDT, Dosing Weight Start Date: 03/12/21 Status: Ordered Start: 04-04-2013 End: 05-28-2019 take 0.1 mg by mouth twice daily Clonidine Hcl Discontinued 0.1 MG PO TWICE A DAY April 04, 2013 1:00am May 28, 2019 5:25pm diazePAM 5 mg oral tablet (3 sources) Benzodiazepine Start: 08-24-2022 Valium 5 mg or al tablet See Instructions, 1 tab 30-45 min prior to procedure, 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., # 1 tab(s), 0 Refill(s), Pharmacy: [facility] #[id number], Chronic radicular lumbar pain, 180, cm, 08/24/22 9:48:00 EDT, Height, 161.1 Start Date: 08/24/22 Status: Ordered DME MISCellaneous (12 sources) Start: 10-20-2023 DME MISCellane ous See Instructions, hydrofera blue (should memfoam not be available.), # 50 EA, 0 Refill(s), Pharmacy: [facility] #[id number], Leg wound, left Left leg swelling, 180, cm, 10/20/23 10:07:00 EDT, Height, 156.2, kg, 10/20/23 9:57:00 EDT, Dosing Weight Start Date: 10/20/23 Status: Ordered Medication Dispense Status: Completed Quantity: 50.0 Unit: EA Total Allowed Fills: 1 Fills Dispensed: 0 Indications: Other specified soft tissue disorders; Unspecified open wound, left lower leg, initial encounter; Start: 10-20-2023 DME MISCellane ous See Instructions, polymem foam for wound care., # 50 EA, 0 Refill(s), Pharmacy: [facility] #[id number], Leg wound, left Left leg swelling, 180, cm, 10/20/23 10:07:00 EDT, Height, 156.2, kg, 10/20/23 9:57:00 EDT, Dosing Weight Start Date: 10/20/23 Status: Ordered Medication Dispense Status: Completed Quantity: 50.0 Unit: EA Total Allowed Fills: 1 Fills Dispensed: 0 Indications: Other specified soft tissue disorders; Unspecified open wound, left lower leg, initial encounter; Start: 10-20-2023 DME MISCellane ous See Instructions, hydrofera blue (should memfoam not be available.), # 50 EA, 0 Refill(s), Pharmacy: [facility] #[id number], Leg wound, left Left leg swelling, 180, cm, 10/20/23 10:07:00 EDT, Height, 156.2, kg, 10/20/23 9:57:00 EDT, Dosing Weight Start Date: 10/20/23 Status: Ordered Quantity: 50.0 Unit: EA Repeat number: 1 Indications: Other specified soft tissue disorders; Unspecified open wound, left lower leg, initial encounter; Start: 10-20-2023 DME MISCellane ous See Instructions, polymem foam for wound care., # 50 EA, 0 Refill(s), Pharmacy: [facility] #[id number], Leg wound, left Left leg swelling, 180, cm, 10/20/23 10:07:00 EDT, Height, 156.2, kg, 10/20/23 9:57:00 EDT, Dosing Weight Start Date: 10/20/23 Status: Ordered Quantity: 50.0 Unit: EA Repeat number: 1 Indications: Other specified soft tissue disorders; Unspecified open wound, left lower leg, initial encounter; Start: 10-20-2023 DME MISCellane ous See Instructions, hydrofera blue (should memfoam not be available.), # 50 EA, 0 Refill(s), Pharmacy: [facility] #[id number], Leg wound, left Left leg swelling, 180, cm, 10/20/23 10:07:00 EDT, Height, 156.2, kg, 10/20/23 9:57:00 EDT, Dosing Weight Start Date: 10/20/23 Status: Ordered Start: 10-20-2023 DME MISCellane ous See Instructions, polymem foam for wound care., # 50 EA, 0 Refill(s), Pharmacy: [facility] #[id number], Leg wound, left Left leg swelling, 180, cm, 10/20/23 10:07:00 EDT, Height, 156.2, kg, 10/20/23 9:57:00 EDT, Dosing Weight Start Date: 10/20/23 Status: Ordered doxycycline hyclate 100 mg oral capsule (3 sources) Tetracycline-class Drug Start: 10-24-2023 End: 11-03-2023 doxycycline hyclate 100 mg oral capsule Dose : 100 mg = 1 cap(s), Oral, BID, X 10 day(s), # 20 cap(s), 0 Refill(s), 11/03/23 10:23:00 AM EDT, Pharmacy: [facility] #[id number], 180, cm, 10/20/23 10:07:00 EDT, Height, 156.2, kg, 10/20/23 9:57:00 EDT, Dosing Weight Start Date: 10/24/23 Stop Date: 11/03/23 Status: Ordered Start: 03-28-2023 End: 04-07-2023 doxycycline hyclate 100 mg o ral capsule Dose : 100 mg = 1 cap(s), Oral, BID, X 10 day(s), # 20 cap(s), 0 Refill(s), 04/07/23 11:44:00 AM EST, Pharmacy: [facility] #[id number], 180.3, cm, 03/28/23 6:32:00 EST, Height, 153.4, kg, 03/28/23 6:32:00 EST, Dosing Weight Start Date: 03/28/23 Stop Date: 04/07/23 Status: Ordered fluticasone propionate 0.05 mg/actuat metered dose nasal spray (20 sources) Corticosteroid Start: 10-04-2024 take 1 dose nasal route once daily in the morning fluticasone 50 mcg/inh NASAL spray Dose = 2 spray(s), Nostril, each, qAM, # 3 EA, 1 Refill(s), Pharmacy: [facility], 180, cm, 10/04/24 10:49:00 EDT, Height, kg, 10/04/24 10:49:00 EDT, Dosing Weight Start Date: 10/04/24 Status: Ordered Medication Dispense Status: Completed Quantity: 3.0 Unit: EA Total Allowed Fills: 2 Fills Dispensed: 0 Start: 05-05-2023 take 1 dose nasal ro [place] once daily in the morning fluticasone 50 mcg/inh NASAL spray Dose = 2 spray(s), Nostril, each, qAM, # 16 gram(s), 3 Refill(s), Pharmacy: [facility], 180, cm, 04/19/23 12:15:00 EST, Height, kg, 01/31/24 12:15:00 EST, Dosing Weight Start Date: 05/05/23 Status: Ordered Quantity: 16.0 Unit: g Repeat number: 4 Start: 02-08-2022 take 1 dose nasal ro [place] once daily in the morning fluticasone 50 mcg/inh NASAL spray Dose = 2 spray(s), Nostril, each, qAM, # 15.8 mL, 1 Refill(s), Pharmacy: [facility]/pharmacy #[id number], 180, cm, 11/26/21 11:27:00 EDT, Height, kg, 11/26/21 11:27:00 EDT, Dosing Weight Start Date: 02/08/22 Status: Ordered Start: 03-18-2019 take 1 dose nasal ro [place] once daily in the morning fluticasone 50 mcg/inh NASAL spray Dose = 2 spray(s), Nostril, each, qAM, # 15.8 mL, 11 Refill(s), Pharmacy: [facility]/pharmacy #[id number] Start Date: 03/18/19 Status: Ordered Start: 09-27-2018 Fluticasone Pr opionate Active 1 SPRAY NASAL DAILY NEEDED September 27, 2018 12:00am 60 actuat fluticasone propionate 0.25 mg/actuat / salmeterol 0.05 mg/actuat dry powder inhaler (20 sources) Corticosteroid, beta2-Adrenergic Agonist Start: 10-04-2024 take 1 dose by mouth twice daily Wixela Inhub 250 mcg-50 mcg/inh inhalation powder Dose = 1 puff(s), Inhalation, BID, rinse mouth and throat after use, # 180 EA, 1 Refill(s), Pharmacy: [facility], 180, cm, 10/04/24 10:49:00 EDT, Height, kg, 10/04/24 10:49:00 EDT, Dosing Weight Start Date: 10/04/24 Status: Ordered Medication Dispense Status: Completed Quantity: 180.0 Unit: EA Total Allowed Fills: 2 Fills Dispensed: 0 Start: 03-21-2023 take 1 dose by mouth twice daily Wixela Inhub 250 mcg-50 mcg inhalation powder Dose = 1 puff(s), Inhalation, BID, rinse mouth and throat after use, # 60 EA, 11 Refill(s), Pharmacy: [facility], 180, cm, 03/21/23 10:29:00 EST, Height, kg, 03/21/23 10:19:00 EST, Dosing Weight Start Date: 03/21/23 Status: Ordered Quantity: 60.0 Unit: EA Repeat number: 12 Start: 03-04-2021 take 1 dose by mouth twice daily Wixela Inhub 250 mcg-50 mcg inhalation powder Dose = 1 puff(s), Inhalation, BID, rinse mouth and throat after use, # 60 EA, 11 Refill(s), Pharmacy: [facility]/pharmacy #[id number], 179, cm, 12/14/20 11:13:00 EDT, Height, kg, 12/14/20 11:13:00 EDT, Dosing Weight Start Date: 03/04/21 Status: Ordered FLUTICASONE/SALM ETEROL (ADVAIR DISKUS INHALATION) Inhale as instructed twice daily. 0 Active Comment on above: Inhale as instructed twice daily. furosemide 40 mg oral tablet (20 sources) Loop Diuretic Start: 10-04-2024 take 1 tablet by mouth twice daily furosemide 40 mg oral tablet See Instructions, TAKE 1 TABLET BY MOUTH TWICE A DAY, # 200 tab(s), 1 Refill(s), Pharmacy: [facility], 180, cm, 10/04/24 10:49:00 EDT, Height, kg, 10/04/24 10:49:00 EDT, Dosing Weight Start Date: 10/04/24 Status: Ordered Medication Dispense Status: Completed Quantity: 200.0 Unit: tab(s) Total Allowed Fills: 2 Fills Dispensed: 0 Start: 10-20-2023 take 1 tablet by elyse th twice daily furosemide 40 mg oral tablet See Instructions, TAKE 1 TABLET BY MOUTH TWICE A DAY, # 200 tab(s), 1 Refill(s), [id number], 180, cm, 10/20/23 10:07:00 EDT, Height, kg, 10/20/23 9:57:00 EDT, Dosing Weight Start Date: 10/20/23 Status: Ordered Quantity: 200.0 Unit: tab(s) Repeat number: 2 Start: 09-19-2023 take 1 tablet by elyse th twice daily furosemide 40 mg oral tablet See Instructions, TAKE 1 TABLET BY MOUTH TWICE A DAY, # 200 tab(s), 1 Refill(s), [facility]: [facility] #[id number], 180, cm, 09/19/23 11:17:00 EDT, Height, kg, 09/19/23 11:17:00 EDT, Dosing Weight Start Date: 09/19/23 Status: Ordered Start: 05-05-2023 take 1 tablet by elyse th twice daily furosemide 40 mg oral tablet See Instructions, TAKE 1 TABLET BY MOUTH TWICE A DAY, # 180 tab(s), 1 Refill(s), Pharmacy: [facility], 180, cm, 04/19/23 12:15:00 EST, Height, kg, 04/19/23 12:15:00 EST, Dosing Weight Start Date: 05/05/23 Status: Ordered Start: 01-27-2023 take 1 tablet by elyse th twice daily furosemide 40 mg oral tablet See Instructions, TAKE 1 TABLET BY MOUTH TWICE A DAY, # 180 tab(s), 1 Refill(s), Pharm[facility]: [facility] #[id number], 185, cm, 01/16/23 12:34:00 EDT, Height, kg, 01/16/23 12:34:00 EDT, Dosing Weight Start Date: 01/27/23 Status: Ordered Start: 06-28-2022 take 1 tablet by elyse twice daily furosemide 40 mg oral tablet See Instructions, TAKE 1 TABLET BY MOUTH TWICE A DAY, # 180 tab(s), 1 Refill(s), Pharmacy: [facility] #[id number], 180, cm, 06/27/22 12:10:00 EDT, Height, kg, 06/27/22 12:10:00 EDT, Dosing Weight Start Date: 06/28/22 Status: Ordered Start: 09-28-2018 take 40 mg by mouth twice daily Furosemide Active 40 MG PO TWICE A DAY 60 September 28, 2018 3:55pm Start: 04-04-2013 End: 09-28-2018 take 40 mg by mouth once daily Furosemide Discontinued 40 MG PO DAILY September 05, 2018 9:34am September 28, 2018 3:55pm take 1 tablet by elyse th once daily furosemide 20 mg ORAL tablet Take 20 mg by mouth once daily. 0 Active Comment on above: Take 20 mg by mouth once daily. hydrALAZINE hydrochloride 50 mg oral tablet (20 sources) Arteriolar Vasodilator Start: 10-04-2024 hydrALAZINE 50 mg oral tablet Dose : 50 mg = 1 tab(s), Oral, BID, # 200 tab(s), 1 Refill(s), Pharmacy: [facility], 180, cm, 10/04/24 10:49:00 EDT, Height, kg, 10/04/24 10:49:00 EDT, Dosing Weight Start Date: 10/04/24 Status: Ordered Medication Dispense Status: Completed Quantity: 200.0 Unit: tab(s) Total Allowed Fills: 2 Fills Dispensed: 0 Start: 06-09-2024 hydrALAZINE 50 mg oral tablet Dose : 50 mg = 1 tab(s), Oral, BID, # 200 tab(s), 1 Refill(s), Pharm[facility]: [facility] #[id number], 180, cm, 06/03/24 10:49:00 EDT, Height, kg, 06/03/24 10:49:00 EDT, Dosing Weight Start Date: 06/09/24 Status: Ordered Quantity: 200.0 Unit: tab(s) Repeat number: 2 Start: 09-19-2023 hydrALAZINE 50 mg oral tablet Dose : 50 mg = 1 tab(s), Oral, BID, # 200 tab(s), 1 Refill(s), Pharmacy: [facility] #[id number], 180, cm, 09/19/23 11:17:00 EDT, Height, kg, 09/19/23 11:17:00 EDT, Dosing Weight Start Date: 09/19/23 Status: Ordered Start: 05-05-2023 hydrALAZINE 50 mg oral tablet Dose : 50 mg = 1 tab(s), Oral, BID, # 180 tab(s), 1 Refill(s), Pharmacy: [facility], 180, cm, 04/19/23 12:15:00 EST, Height, kg, 04/19/23 12:15:00 EST, Dosing Weight Start Date: 05/05/23 Status: Ordered Start: 06-21-2021 hydrALAZINE 50 mg oral tablet Dose : 50 mg = 1 tab(s), Oral, BID, # 180 tab(s), 0 Refill(s), Pharmacy: [facility] #[id number], 180, cm, 05/24/22 10:57:00 EST, Height, kg, 05/24/22 10:57:00 EST, Dosing Weight Start Date: 05/24/22 Status: Ordered Start: 02-19-2020 take 25 mg by mouth twice daily Hydralazine Active 25 MG PO TWICE A DAY February 19, 2020 12:53pm Start: 03-05-2019 End: 02-19-2020 take 25 mg by mouth three times daily Hydralazine Discontinued 25 MG PO THREE TIMES A DAY March 05, 2019 1:00am February 19, 2020 12:54pm Start: 09-27-2018 End: 09-28-2018 take 50 mg by mouth twice daily Hydralazine Discontinued 50 MG PO TWICE A DAY September 27, 2018 9:01pm September 28, 2018 3:29pm Start: 08-23-2018 End: 09-27-2018 take 50 mg by mouth three times daily Hydralazine Discontinued 50 MG PO THREE TIMES A DAY August 23, 2018 9:52am September 27, 2018 9:02pm Start: 08-17-2018 End: 08-23-2018 take 50 mg by mouth twice daily Hydralazine Discontinued 50 MG PO TWICE A DAY August 17, 2018 12:00am August 23, 2018 9:52am 24 hr isosorbide mononitrate 60 mg extended release oral tablet (15 sources) Nitrate Vasodilator Start: 08-21-2020 isosorbide mononitrate 60 mg oral tablet, extended release Dose : 60 mg = 1 tab(s), Oral, Daily, TAKE 1 TABLET BY MOUTH EVERY DAY, # 7 tab(s), 0 Refill(s), Pharmacy: [facility]/pharmacy #[id number], 181.5, cm, 05/18/20 13:10:00 EST, Height, kg, 08/19/20 13:19:00 EDT, Dosing Weight Start Date: 08/21/20 Status: Ordered Start: 03-05-2019 End: 05-06-2019 take 60 mg by mouth once daily Isosorbide Mononitrate Discontinued 60 MG PO DAILY March 05, 2019 1:00am May 06, 2019 12:34pm Lidocaine (5 sources) Antiarrhythmic, Amide Local Anesthetic Start: 10-12-2023 lidocaine 4% topical cream See Instructions, APPLY TOPICALLY TO AFFECTED AREA 3 TIMES A DAY NEEDED FOR PAIN, # 30 gram(s), 2 Refill(s), Pharmacy: [facility] #[id number], Cream, 180, cm, 10/09/23 11:40:00 EDT, Height, 155.9, kg, 10/09/23 11:40:00 EDT, Dosing Weight Start Date: 10/12/23 Status: Ordered Start: 09-23-2023 End: 09-28-2023 lidocaine 4% topical cream A pply 1 ashley, Topical, TID, PRN as needed for pain, X 5 day(s), # 30 gram(s), 0 Refill(s), Cream, 155 Start Date: 09/23/23 Stop Date: 09/28/23 Status: Ordered lisinopril 40 mg oral tablet (20 sources) Angiotensin Converting Enzyme Inhibitor Start: 09-10-2024 End: 10-10-2024 lisinopril 40 mg oral tablet Dose : 40 mg = 1 tab(s), Oral, qDay, # 100 tab(s), 1 Refill(s), Pharmacy: [facility], 180, cm, 10/04/24 10:49:00 EDT, Height, kg, 10/04/24 10:49:00 EDT, Dosing Weight Start Date: 10/04/24 Status: Ordered Medication Dispense Status: Completed Quantity: 100.0 Unit: tab(s) Total Allowed Fills: 2 Fills Dispensed: 0 Start: 09-19-2023 lisinopril 40 mg oral tablet Dose : 40 mg = 1 tab(s), Oral, qDay, # 100 tab(s), 1 Refill(s), [facility]: [facility] #[id number], 180, cm, 09/19/23 11:17:00 EDT, Height, kg, 09/19/23 11:17:00 EDT, Dosing Weight Start Date: 09/19/23 Status: Ordered Start: 05-05-2023 lisinopril 40 mg oral tablet Dose : 40 mg = 1 tab(s), Oral, qDay, # 90 tab(s), 1 Refill(s), Pharmacy: [facility], 180, cm, 04/19/23 12:15:00 EST, Height, kg, 04/19/23 12:15:00 EST, Dosing Weight Start Date: 05/05/23 Status: Ordered Start: 01-11-2023 lisinopril 40 mg oral tablet Dose : 40 mg = 1 tab(s), Oral, qDay, # 90 tab(s), 1 Refill(s), Pharmacy: [facility] #[id number], 185, cm, 01/09/23 11:29:00 EDT, Height, kg, 01/09/23 11:29:00 EDT, Dosing Weight Start Date: 01/11/23 Status: Ordered Start: 07-11-2022 lisinopril 40 mg oral tablet Dose : 40 mg = 1 tab(s), Oral, qDay, # 90 tab(s), 1 Refill(s), Pharmacy: [facility] #[id number], 180, cm, 06/27/22 12:10:00 EDT, Height, kg, 06/27/22 12:10:00 EDT, Dosing Weight Start Date: 07/11/22 Status: Ordered Start: 12-28-2021 take 40 mg by mouth once daily Lisinopril Active 40 MG PO DAILY December 28, 2021 3:04pm Start: 04-04-2013 End: 12-28-2021 take 40 mg by mouth twice daily Lisinopril Discontinue d 40 MG PO TWICE A DAY April 04, 2013 1:00am December 28, 2021 3:05pm End: 11-05-2015 take 1 tablet by mouth once daily lisinopril 40 mg ORAL tablet Take 40 mg by mouth once daily. 0 11/05/2015 Discontinued (Erroneous entry) Comment on above: Take 40 mg by mouth once daily. 24 hr metoprolol succinate 100 mg extended release oral tablet (1 source) beta-Adrenergic Zac Start: 10-04-2024 metoprolol succinate 100 mg oral TABLET extended release Dose : 100 mg = 1 tab(s), Oral, qDay, # 30 tab(s), 1 Refill(s), Pharmacy: [facility]/pharmacy #[id number], 180, cm, 10/04/24 10:49:00 EDT, Height, kg, 10/04/24 10:49:00 EDT, Dosing Weight Start Date: 10/04/24 Status: Ordered Medication Dispense Status: Completed Quantity: 30.0 Unit: tab(s) Total Allowed Fills: 2 Fills Dispensed: 0 nicotine 2 mg oral lozenge (10 sources) Cholinergic Nicotinic Agonist Start: 07-26-2024 nicotine 2 mg oral transmucosal lozenge 2 mg Dose = 1 lozenge(s), Transmucosal, q1h, PRN as needed for smoking cessation, as directed on package labeling, # 300 lozenge(s), 0 Refill(s), Pharmacy: [facility] #[id number], [facility] Tobacco use, 180.3, cm, 07/26/24 10:56:00 EDT, Height, kg, 07/26/24 10:56:00 EDT, Dosing Weight Start Date: 07/26/24 Status: Ordered Medication Dispense Status: Completed Quantity: 300.0 Unit: lozenge(s) Total Allowed Fills: 1 Fills Dispensed: 0 Indications: Encounter for general adult medical examination without abnormal findings; Tobacco use; Start: 07-26-2024 End: 08-25-2024 nicotine 7 mg/24 hr transder mal film, extended release 7 = mg Apply 1 patch(es), Transdermal, qDay, # 30 patch(es), 0 Refill(s), Pharmacy: [facility] #[id number], [facility] Tobacco use, 180.3, cm, 07/26/24 10:56:00 EDT, Height, 165, kg, 07/26/24 10:56:00 EDT, Dosing Weight Start Date: 07/26/24 Stop Date: 08/25/24 Status: Ordered Medication Dispense Status: Completed Quantity: 30.0 Unit: patch(es) Total Allowed Fills: 1 Fills Dispensed: 0 Indications: Encounter for general adult medical examination without abnormal findings; Tobacco use; Start: 03-05-2019 End: 08-02-2019 Nicotine Discontinued 14 MG TRANSDERM. DAILY March 05, 2019 1:00am August 02, 2019 11:00am potassium chloride 20 meq or al tablet (20 sources) Start: 10-04-2024 potassium chlo ride 20 mEq oral tablet, extended release Dose : 20 mEq = 1 tab(s), Oral, qDay, Take with food, # 100 tab(s), 1 Refill(s), Pharmacy: [facility], 180, cm, 10/04/24 10:49:00 EDT, Height, kg, 10/04/24 10:49:00 EDT, Dosing Weight Start Date: 10/04/24 Status: Ordered Medication Dispense Status: Completed Quantity: 100.0 Unit: tab(s) Total Allowed Fills: 2 Fills Dispensed: 0 Start: 03-30-2024 potassium chlo ride 20 mEq oral tablet, extended release Dose : 20 mEq = 1 tab(s), Oral, qDay, Take with food, # 90 tab(s), 0 Refill(s), Pharmacy: [facility] #[id number], 70.9, cm, 03/22/24 11:51:00 EST, Height, kg, 03/22/24 11:51:00 EST, Dosing Weight Start Date: 03/30/24 Status: Ordered Quantity: 90.0 Unit: tab(s) Repeat number: 1 Start: 09-19-2023 potassium chlo ride 20 mEq oral tablet, extended release Dose : 20 mEq = 1 tab(s), Oral, qDay, Take with food, # 90 tab(s), 1 Refill(s), Pharmacy: [facility] #[id number], 180, cm, 09/19/23 11:17:00 EDT, Height, kg, 09/19/23 11:17:00 EDT, Dosing Weight Start Date: 09/19/23 Status: Ordered Start: 05-05-2023 potassium chlo ride 20 mEq oral tablet, extended release Dose : 20 mEq = 1 tab(s), Oral, qDay, Take with food, # 90 tab(s), 0 Refill(s), Pharmacy: [facility] #[id number], 180, cm, 04/19/23 12:15:00 EST, Height, kg, 04/19/23 12:15:00 EST, Dosing Weight Start Date: 05/05/23 Status: Ordered Start: 12-01-2021 Potassium Chlo ride (Klor-Con M20) 20 mEq tablet,ER particles/crystals Active 20 MEQ PO DAILY December 01, 2021 12:00am Start: 03-11-2020 potassium chlo ride 20 mEq oral tablet, extended release Dose : 20 mEq = 1 tab(s), Oral, qDay, Take with food, # 90 tab(s), 4 Refill(s), Pharmacy: [facility]/pharmacy #[id number], 179, cm, 02/19/20 13:43:00 EST, Height, kg, 02/19/20 13:43:00 EST, Dosing Weight Start Date: 03/11/20 Status: Ordered Start: 09-28-2018 take 20 mEq by mouth once pernell y Potassium Chloride Active 20 MEQ PO DAILY 60 September 28, 2018 12:00am Promethazine with Codeine 6.25 mg-10 mg/5 mL oral syrup (2 sources) Start: 11-26-2021 take 1 [tsp_us] by mouth every six hours as needed for cough Promethazine with Codeine 6.25 mg-10 mg/5 mL oral syrup See Instructions, NO RED DYE, allergy 1 teaspoon every 6 hours as needed cough, # 180 mL, 2 Refill(s), other reason (Rx) Start Date: 11/26/21 Status: Ordered Start: 11-26-2021 Promethazine w ith Codeine 6.25 mg-10 mg/5 mL oral syrup See Instructions, 1 teaspoon every 6 hours as needed cough, fill on , # 180 mL, 2 Refill(s), other reason (Rx) Start Date: 11/26/21 Status: Ordered sildenafil 50 mg oral tablet (20 sources) Phosphodiesterase 5 Inhibitor Start: 10-04-2024 take 1-2 tablets by mouth once daily as needed sildenafil 50 mg oral tablet 1-2 tab(s), Oral, qDay, PRN erectile dysfunction, # 60 tab(s), 5 Refill(s), Pharmacy: [facility]/pharmacy #[id number], 180, cm, 10/04/24 10:49:00 EDT, Height, kg, 10/04/24 10:49:00 EDT, Dosing Weight Start Date: 10/04/24 Status: Ordered Medication Dispense Status: Completed Quantity: 60.0 Unit: tab(s) Total Allowed Fills: 6 Fills Dispensed: 0 Start: 10-20-2023 sildenafil 20 mg oral tablet Dose : 60 mg = 3 tab(s), Oral, Daily, PRN erectile dysfunction, DO NOT TAKE SAME DAY IF USING ISOSORBID MONONITRATE (IMDUR), # 60 tab(s), 2 Refill(s), Pharmacy: [facility] #[id number], Erectile dysfunction, 180, cm, 10/20/23 10:07:00 EDT, Height, kg, 10/20/23 9:57:00 EDT, Dosing Weight Start Date: 10/20/23 Status: Ordered Quantity: 60.0 Unit: tab(s) Repeat number: 3 Indications: Male erectile dysfunction, unspecified; Start: 09-19-2023 sildenafil 20 mg oral tablet Dose : 60 mg = 3 tab(s), Oral, Daily, PRN erectile dysfunction, DO NOT TAKE SAME DAY IF USING ISOSORBID MONONITRATE (IMDUR), # 60 tab(s), 2 Refill(s), Pharmacy: [facility] #[id number], Erectile dysfunction, 180, cm, 09/19/23 11:17:00 EDT, Height, kg, 09/19/23 11:17:00 EDT, Dosing Weight Start Date: 09/19/23 Status: Ordered Start: 03-07-2023 sildenafil 20 mg oral tablet Dose : 60 mg = 3 tab(s), Oral, Daily, PRN erectile dysfunction, DO NOT TAKE SAME DAY IF USING ISOSORBID MONONITRATE (IMDUR), # 60 tab(s), 2 Refill(s), Pharmacy: [facility] #[id number], Erectile dysfunction, 180, cm, 02/28/23 10:52:00 EST, Height, kg, 02/28/23 10:52:00 EST, Dosing Weight Start Date: 03/07/23 Status: Ordered Start: 11-08-2022 sildenafil 20 mg oral tablet Dose : 60 mg = 3 tab(s), Oral, Daily, PRN erectile dysfunction, DO NOT TAKE SAME DAY IF USING ISOSORBID MONONITRATE (IMDUR), # 60 tab(s), 2 Refill(s), Pharmacy: [facility] #[id number], Erectile dysfunction, 185, cm, 10/24/22 11:41:00 EDT, Height, kg, 10/24/22 11:41:00 EDT, Dosing Weight Start Date: 11/08/22 Status: Ordered Start: 11-26-2021 sildenafil 20 mg oral tablet Dose : 60 mg = 3 tab(s), Oral, Daily, PRN erectile dysfunction, DO NOT TAKE SAME DAY IF USING ISOSORBID MONONITRATE (IMDUR), # 60 tab(s), 2 Refill(s), [facility]acy: [facility] #[id number], Erectile dysfunction, 180, cm, 02/28/22 10:42:00 EST, Height, kg, ... Start Date: 03/02/22 Status: Ordered Start: 03-03-2019 End: 03-05-2019 take 20 mg by mouth once daily Sildenafil Discontinued 20 MG PO DAILY March 03, 2019 1:00am March 05, 2019 12:34pm traZODone hydrochloride 50 mg oral tablet (20 sources) Serotonin Reuptake Inhibitor Start: 10-04-2024 traZODone 50 mg oral tablet Dose : 50 mg = 1 tab(s), Oral, qHS, PRN Sleep / Insomnia, # 100 tab(s), 1 Refill(s), Pharmacy: [facility], 180, cm, 10/04/24 10:49:00 EDT, Height, kg, 10/04/24 10:49:00 EDT, Dosing Weight Start Date: 10/04/24 Status: Ordered Medication Dispense Status: Completed Quantity: 100.0 Unit: tab(s) Total Allowed Fills: 2 Fills Dispensed: 0 Start: 07-26-2024 traZODone 50 m g oral tablet Dose : 50 mg = 1 tab(s), Oral, qHS, PRN Sleep / Insomnia, # 100 tab(s), 1 Refill(s), Pharmacy: [facility] #[id number], 180.3, cm, 07/26/24 10:56:00 EDT, Height, kg, 07/26/24 10:56:00 EDT, Dosing Weight Start Date: 07/26/24 Status: Ordered Quantity: 100.0 Unit: tab(s) Repeat number: 2 Start: 09-19-2023 traZODone 50 m g oral tablet Dose : 50 mg = 1 tab(s), Oral, qHS, PRN Sleep / Insomnia, # 90 tab(s), 1 Refill(s), Pharmacy: [facility] #[id number], 180, cm, 09/19/23 11:17:00 EDT, Height, kg, 09/19/23 11:17:00 EDT, Dosing Weight Start Date: 09/19/23 Status: Ordered Start: 05-05-2023 traZODone 50 m g oral tablet Dose : 50 mg = 1 tab(s), Oral, qHS, PRN Sleep / Insomnia, # 90 tab(s), 1 Refill(s), Pharmacy: [facility], 180, cm, 04/19/23 12:15:00 EST, Height, kg, 04/19/23 12:15:00 EST, Dosing Weight Start Date: 05/05/23 Status: Ordered Start: 06-28-2022 traZODone 50 m g oral tablet Dose : 50 mg = 1 tab(s), Oral, qHS, PRN Sleep / Insomnia, # 90 tab(s), 1 Refill(s), Pharmacy: [facility] #[id number], 185, cm, 10/03/22 10:23:00 EDT, Height, kg, 10/03/22 10:23:00 EDT, Dosing Weight Start Date: 10/04/22 Status: Ordered Start: 06-21-2021 take 50 mg by mouth at bedtime Trazodone Active 50 MG PO AT BEDTIME December 01, 2021 12:00am Vitamin D3 50 mcg (2000 intl units) oral capsule (20 sources) Start: 10-04-2024 Vitamin D3 50 mcg (2000 intl units) oral capsule Dose : 2,000 unit(s) = 1 cap(s), Oral, Daily, # 100 cap(s), 3 Refill(s), Pharmacy: [facility], [facility], 180, cm, 10/04/24 10:49:00 EDT, Height, kg, 10/04/24 10:49:00 EDT, Dosing Weight Start Date: 10/04/24 Status: Ordered Medication Dispense Status: Completed Quantity: 100.0 Unit: cap(s) Total Allowed Fills: 4 Fills Dispensed: 0 Indications: Encounter for general adult medical examination without abnormal findings; Start: 06-09-2024 Vitamin D3 50 mcg (2000 intl units) oral capsule Dose : 2,000 unit(s) = 1 cap(s), Oral, Daily, # 100 cap(s), 3 Refill(s), Pharmacy: [facility] #[id number], [facility], 180, cm, 06/03/24 10:49:00 EDT, Height, kg, 06/03/24 10:49:00 EDT, Dosing Weight Start Date: 06/09/24 Status: Ordered Quantity: 100.0 Unit: cap(s) Repeat number: 4 Indications: Encounter for general adult medical examination without abnormal findings; Start: 09-19-2023 Vitamin D3 50 mcg (2000 intl units) oral capsule Dose : 2,000 unit(s) = 1 cap(s), Oral, Daily, # 100 cap(s), 1 Refill(s), Pharmacy: [facility] #[id number], [facility], 180, cm, 09/19/23 11:17:00 EDT, Height, kg, 09/19/23 11:17:00 EDT, Dosing Weight Start Date: 09/19/23 Status: Ordered Start: 05-05-2023 Vitamin D3 50 mcg (2000 intl units) oral capsule Dose : 2,000 unit(s) = 1 cap(s), Oral, Daily, # 100 cap(s), 1 Refill(s), Pharmacy: [facility], [facility], 180, cm, 04/19/23 12:15:00 EST, Height, kg, 04/19/23 12:15:00 EST, Dosing Weight Start Date: 05/05/23 Status: Ordered Start: 10-04-2022 Vitamin D3 50 mcg (2000 intl units) oral capsule Dose : 2,000 unit(s) = 1 cap(s), Oral, Daily, # 100 cap(s), 3 Refill(s), Pharmacy: [facility] #[id number], [facility], 185, cm, 10/03/22 10:23:00 EDT, Height, kg, 10/03/22 10:23:00 EDT, Dosing Weight Start Date: 10/04/22 Status: Ordered Start: 02-28-2022 Vitamin D3 50 mcg (2000 intl units) oral capsule Dose : 2,000 unit(s) = 1 cap(s), Oral, Daily, # 100 cap(s), 3 Refill(s), Pharmacy: [facility], [facility], 180, cm, 02/28/22 10:42:00 EST, Height, kg, 02/28/22 10:42:00 EST, Dosing Weight Start Date: 02/28/22 Status: Ordered Start: 09-24-2021 Vitamin D3 50 mcg (2000 intl units) oral capsule Dose : 2,000 unit(s) = 1 cap(s), Oral, Daily, # 100 cap(s), 0 Refill(s), Pharmacy: [facility], [facility], 180, cm, 09/24/21 11:08:00 EDT, Height Start Date: 09/24/21 Status: Ordered warfarin sodium 4 mg oral tablet (20 sources) Vitamin K Antagonist Start: 07-18-2024 warfarin 4 mg oral tablet See Instructions, Take 6mg PO Sun, Mon, Mon, , Sat and 8mg Mon, Mon., # 180 tab(s), 3 Refill(s), Pharmacy: [facility] #[id number], 180, cm, 07/10/24 9:48:00 EDT, Height, kg, 07/10/24 9:48:00 EDT, Dosing Weight Start Date: 07/22/24 Status: Ordered Medication Dispense Status: Completed Quantity: 180.0 Unit: tab(s) Total Allowed Fills: 4 Fills Dispensed: 0 Start: 10-18-2023 warfarin 4 mg oral tablet See Instructions, 6mg Sun, Mon, Mon, , Sat 8mg Mon, Mon, # 180 tab(s), 0 Refill(s), Pharmacy: [facility] #[id number], 180, cm, 10/09/23 11:40:00 EDT, Height, kg, 10/09/23 11:40:00 EDT, Dosing Weight Start Date: 10/18/23 Status: Ordered Start: 09-05-2023 warfarin 4 mg oral tablet take 1 AND 1/2 tablet by mouth ON Monday... (REFER TO PRESCRIPTION NOTES). Start Date: 09/05/23 Status: Ordered Start: 09-14-2022 warfarin 4 mg oral tablet See Instructions, Take 1 and 1/2 tabs (6 mg) on Monday, Monday, Monday, and Monday. Take 2 tabs (8mg) on Monday & Monday., # 150 tab(s), 3 Refill(s), Pharmacy: [facility] #[id number], 185, cm, 09/14/22 12:50:00 EDT, Height Start Date: 09/14/22 Status: Ordered Start: 10-18-2021 End: 12-28-2021 warfarin 4 mg oral tablet Se e Instructions, Take 4mg every day except 6mg on Tuesdays and Fridays, # 90 tab(s), 0 Refill(s) Start Date: 11/26/21 Status: Ordered Start: 10-18-2021 End: 12-28-2021 Warfarin Discontinued 6 MG P O December 01, 2021 12:16pm December 28, 2021 5:02pm Start: 03-27-2020 End: 03-27-2020 Warfarin Discontinued 0 .ROU TE .COMPLEX 90 March 27, 2020 9:30am March 27, 2020 9:31am 1 TABLET BY MOUTH EVERY EVENING. DO NOT START UNTIL ELIQUIS IS FINISHED Start: 03-27-2020 End: 10-18-2021 Warfarin Discontinued 4 MG P O .COMPLEX July 21, 2020 9:42am December 16, 2020 1:54pm 4 mg PO daily: with a 1 mg tablet on Monday to = 5 mg; take with a 3 mg tablet all other days of the week to = 7mg; Start: 10-08-2019 End: 03-27-2020 take 2 mg by mouth once daily Warfarin Discontinued 2 MG PO DAILY October 08, 2019 12:00am March 27, 2020 9:30am Start: 08-02-2019 End: 03-27-2020 take 1 tablet by mouth once daily Warfarin Discontinued 5 MG PO .COMPLEX 60 March 27, 2020 1:00am March 27, 2020 9:34am 5 mg PO daily Monday through Monday; 1.5 tablets (7.5 mg) on Sat and Sun; or as directed; Start: 05-31-2019 End: 10-08-2019 take 4 mg by mouth once daily in the evening Warfarin Discontinued 4 MG PO .every evening May 31, 2019 12:00am October 08, 2019 5:27pm Completed/Discontinued Medications Medication Drug Class(es) Dates Sig (Normalized) Sig (Original) apixaban 2.5 mg oral tablet (12 sources) Factor Xa Inhibitor Start: 05-28-2019 End: 08-02-2019 take 1 tablet by mouth twice daily Apixaban (Eliquis) 2.5 mg tablet Discontinued 2.5 MG PO TWICE A DAY 60 May 28, 2019 12:00am August 02, 2019 10:55am Start: 08-23-2018 End: 09-05-2018 take 2.5 mg by mouth twice daily Apixaban Discontinued 2.5 MG PO TWICE A DAY 60 August 23, 2018 12:00am September 05, 2018 9:34am atenolol 100 mg oral tablet (1 source) beta-Adrenergic Zac atenolol 100 mg ORAL tablet Take 50 mg by mouth once daily. 0 Active Comment on above: Take 50 mg by mouth once daily. baclofen 10 mg oral tablet (6 sources) gamma-Aminobutyric Acid-ergic Agonist Start: 09-28-19 End: 02-27-20 take 5-10 mg by mouth three times daily Baclofen Discontinued 5 - 10 MG PO THREE TIMES A DAY September 27, 2018 12:00am February 26, 2019 12:12pm 120 actuat budesonide 0.16 mg/actuat / formoterol fumarate 0.0045 mg/actuat metered dose inhaler (6 sources) Corticosteroid, beta2-Adrenergic Agonist Start: 08-18-19 End: 08-02-19 take 1 puff(s) by inhalation twice daily Budesonide-Formoter ol Discontinued 2 PUFF INHALATION TWICE A DAY August 17, 2018 12:00am August 02, 2019 11:01am carvedilol 6.25 mg oral tablet (20 sources) alpha-Adrenergic Zac, beta-Adrenergic Zac Start: 03-21-19 carvedilol 6.25 mg oral tablet 60 EA, 0 Refill(s), take 1 tablet by mouth twice a day, 0 Refill(s) Start Date: 03/21/23 Status: Ordered Repeat number: 1 Start: 09-04-2022 carvedilol 6.2 5 mg oral tablet Dose : 6.25 mg = 1 tab(s), Oral, BID, # 180 tab(s), 1 Refill(s), Pharmacy: [facility], 189.1, cm, 08/25/22 10:51:00 EDT, Height, kg, 08/25/22 10:51:00 EDT, Dosing Weight Start Date: 09/04/22 Status: Ordered Start: 02-28-2022 carvedilol 6.2 5 mg oral tablet Dose : 6.25 mg = 1 tab(s), Oral, BID, # 180 tab(s), 1 Refill(s), Pharmacy: [facility], 180, cm, 02/28/22 10:42:00 EST, Height, kg, 02/28/22 10:42:00 EST, Dosing Weight Start Date: 02/28/22 Status: Ordered Start: 03-05-2019 End: 02-19-2020 carvedilol 6.25 mg oral tabl et Dose : 6.25 mg = 1 tab(s), Oral, BID, # 180 tab(s), 1 Refill(s), Pharmacy: [facility], 180, cm, 02/28/22 10:42:00 EST, Height, kg, 02/28/22 10:42:00 EST, Dosing Weight Start Date: 02/28/22 Status: Ordered codeine phosphate 2 mg/ml / promethazine hydrochloride 1.25 mg/ml oral solution (7 sources) Opioid Agonist, Phenothiazine Start: 03-03-2019 End: 12-16-2020 take 1 mL by mouth every four hours Promethazine-Codeine Discontinued 5 ML PO Q4H March 03, 2019 1:00am December 16, 2020 1:54pm diclofenac sodium 75 mg delayed release oral tablet (6 sources) Nonsteroidal Anti-inflammatory Drug Start: 08-17-2018 End: 08-23-2018 take 75 mg by mouth twice daily at mealtime Diclofenac Sodium Discontinued 75 MG PO TWICE DAILY WITH MEALS August 17, 2018 12:00am August 23, 2018 9:51am naproxen sodium 220 mg oral tablet (5 sources) Nonsteroidal Anti-inflammatory Drug Start: 12-01-2021 End: 12-02-2021 take 2 tablets by mouth once daily Naproxen Sodium (Aleve) 220 mg Tablet Discontinued 440 MG PO DAILY December 01, 2021 12:00am December 02, 2021 1:56pm take 2 capsules by mouth once da abel naproxen sodium (ALEVE) 220 mg ORAL Cap Take 2 capsules by mouth once daily. 0 Active Comment on above: Take 2 capsules by m outh once daily. predniSONE 10 mg oral tablet (13 sources) Start: 07-11-2024 End: 07-27-2024 take 4 tablets by mouth once daily, then take 3 tablets by mouth once daily, then take 2 tablets by mouth once daily, then take 1 tablet by mouth once daily, then take 0.5 tablet by mouth once daily prednisone 10mg tab (TAPER) Taper 11-13-24-10-5 mg, Oral, Daily, Take 4 tabs daily x 5days, then 3 tabs daily x 3days, then 2 tabs daily x 3days,then 1 tab daily x 3days,then 1/2 tab daily x 4 days, # 40 tab(s), 0 Refill(s), Pharmacy: [facility] #[id number], 180, cm, 07/10/24 9:48:00 EDT, Height, kg, 07/10/24 9:48:00 EDT, Dosing Weight Start Date: 07/11/24 Stop Date: 07/27/24 Status: Ordered Quantity: 40.0 Unit: tab(s) Repeat number: 1 Start: 05-05-2023 End: 05-21-2023 take 4 tablets by mouth once daily, then take 3 tablets by mouth once daily, then take 2 tablets by mouth once daily, then take 1 tablet by mouth once daily, then take 0.5 tablet by mouth once daily prednisone 10mg tab (TAPER) Taper 44-28-76-10-5 mg, Oral, Daily, Take 4 tabs daily x 5days, then 3 tabs daily x 3days, then 2 tabs daily x 3days,then 1 tab daily x 3days,then 1/2 tab daily x 4 days, # 40 tab(s), 0 Refill(s), Pharmacy: [facility] #[id number], 180, cm, 04/19/23 12:15:00 EST, Height, kg, 04/19/23 12:15:00 EST, Dosing Weight Start Date: 05/05/23 Stop Date: 05/21/23 Status: Ordered Start: 08-04-2022 End: 08-20-2022 take 4 tablets by mouth once daily, then take 3 tablets by mouth once daily, then take 2 tablets by mouth once daily, then take 1 tablet by mouth once daily, then take 0.5 tablet by mouth once daily prednisone 10mg tab (TAPER) Taper 28-27-45-10-5 mg, Oral, Daily, Take 4 tabs daily x 5days, then 3 tabs daily x 3days, then 2 tabs daily x 3days,then 1 tab daily x 3days,then 1/2 tab daily x 4 days, # 40 tab(s), 0 Refill(s), Pharmacy: [facility] #[id number], Gout, 180, cm, 08/01/22 9:29:00 EDT, Height, kg, 08/01/22 9:29:00 EDT, Dosing Weight Start Date: 08/04/22 Stop Date: 08/20/22 Status: Ordered Start: 02-28-2022 End: 03-16-2022 take 4 tablets by mouth once daily, then take 3 tablets by mouth once daily, then take 2 tablets by mouth once daily, then take 1 tablet by mouth once daily, then take 0.5 tablet by mouth once daily prednisone 10mg tab (TAPER) Taper 92-20-39-10-5 mg, Oral, Daily, Take 4 tabs daily x 5days, then 3 tabs daily x 3days, then 2 tabs daily x 3days,then 1 tab daily x 3days,then 1/2 tab daily x 4 days, # 40 tab(s), 0 Refill(s), Pharmacy: [facility], Gout, 180, cm... Start Date: 02/28/22 Stop Date: 03/16/22 Status: Ordered Start: 02-07-2022 Prednisone Act [place] MG February 07, 2022 1:00am Start: 02-07-2022 Prednisone Act [place] MG February 07, 2022 12:00am Start: 12-02-2021 End: 12-28-2021 Prednisone Discontinued 0 MG PO DAILY 06 01December 02, 2021 12:00am December 28, 2021 3:05pm promethazine hydrochloride 1.25 mg/ml oral solution (20 sources) Phenothiazine Start: 01-04-2024 End: 04-03-2024 take 1 dose by mouth four times daily promethazine 6.25 mg/5 mL oral syrup Dose : 6.25 mg = 5 mL, Oral, QID, NO RED DYE! Grape flavor ok, # 180 mL, 2 Refill(s), Pharmacy: [facility] #[id number], 180, cm, 12/11/23 11:56:00 EDT, Height, kg, 12/11/23 11:56:00 EDT, Dosing Weight Start Date: 01/04/24 Stop Date: 04/03/24 Status: Ordered Medication Dispense Status: Completed Quantity: 180.0 Unit: mL Total Allowed Fills: 3 Fills Dispensed: 0 Start: 03-07-2023 End: 06-05-2023 take 1 dose by mouth four times daily promethazine 6.25 mg/5 mL oral syrup Dose : 6.25 mg = 5 mL, Oral, QID, NO RED DYE! Grape flavor ok, # 180 mL, 2 Refill(s), [facility]: [facility] #[id number], 180, cm, 02/28/23 10:52:00 EST, Height, kg, 02/28/23 10:52:00 EST, Dosing Weight Start Date: 03/07/23 Stop Date: 06/05/23 Status: Ordered Start: 10-28-2022 End: 01-26-2023 take 1 dose by mouth four times daily promethazine 6.25 mg/5 mL oral syrup Dose : 6.25 mg = 5 mL, Oral, QID, NO RED DYE! Grape flavor ok, # 180 mL, 2 Refill(s), Pharmacy: [facility] #[id number], 185, cm, 10/24/22 11:41:00 EDT, Height, kg, 10/24/22 11:41:00 EDT, Dosing Weight Start Date: 10/28/22 Stop Date: 01/26/23 Status: Ordered Start: 07-11-2022 End: 09-09-2022 take 1 dose by mouth four times daily promethazine 6.25 mg/5 mL oral syrup Dose : 6.25 mg = 5 mL, Oral, QID, NO RED DYE! Grape flavor ok, # 180 mL, 1 Refill(s), Pharmacy: [facility] #[id number], 180, cm, 06/27/22 12:10:00 EDT, Height, kg, 06/27/22 12:10:00 EDT, Dosing Weight Start Date: 07/11/22 Stop Date: 09/09/22 Status: Ordered Start: 12-03-2021 End: 02-01-2022 take 1 dose by mouth four times daily promethazine 6.25 mg/5 mL oral syrup Dose : 6.25 mg = 5 mL, Oral, QID, # 180 mL, 1 Refill(s), Pharmacy: [facility]acy #[id number], 180, cm, 11/26/21 11:27:00 EDT, Height Start Date: 12/03/21 Stop Date: 02/01/22 Status: Ordered sotalol hydrochloride 80 mg oral tablet (20 sources) Antiarrhythmic Start: 09-10-2024 End: 11-03-2024 sotalol 80 mg oral tablet Dose : 80 mg = 1 tab(s), Oral, BID, # 200 tab(s), 0 Refill(s), Pharmacy: [facility], 180, cm, 10/04/24 10:49:00 EDT, Height, kg, 10/04/24 10:49:00 EDT, Dosing Weight Start Date: 10/04/24 Stop Date: 11/03/24 Status: Ordered Medication Dispense Status: Completed Quantity: 200.0 Unit: tab(s) Total Allowed Fills: 1 Fills Dispensed: 0 Start: 09-19-2023 sotalol 80 mg oral tablet Dose : 80 mg = 1 tab(s), Oral, BID, # 180 tab(s), 1 Refill(s), Pharmacy: [facility] #[id number], 180, cm, 09/19/23 11:17:00 EDT, Height, kg, 09/19/23 11:17:00 EDT, Dosing Weight Start Date: 09/19/23 Status: Ordered Start: 05-05-2023 sotalol 80 mg oral tablet Dose : 80 mg = 1 tab(s), Oral, BID, # 180 tab(s), 1 Refill(s), Pharmacy: [facility], 180, cm, 04/19/23 12:15:00 EST, Height, kg, 04/19/23 12:15:00 EST, Dosing Weight Start Date: 05/05/23 Status: Ordered Start: 03-16-2023 sotalol 80 mg oral tablet Dose : 80 mg = 1 tab(s), Oral, BID, # 60 tab(s), 0 Refill(s), Pharmacy: [facility], 180, cm, 03/15/23 12:13:00 EST, Height, kg, 03/15/23 12:13:00 EST, Dosing Weight Start Date: 03/16/23 Status: Ordered Start: 09-04-2022 sotalol 80 mg oral tablet Dose : 80 mg = 1 tab(s), Oral, BID, # 180 tab(s), 1 Refill(s), Pharmacy: [facility], 189.1, cm, 08/25/22 10:51:00 EDT, Height, kg, 08/25/22 10:51:00 EDT, Dosing Weight Start Date: 09/04/22 Status: Ordered Start: 09-27-2018 sotalol 80 mg oral tablet Dose : 80 mg = 1 tab(s), Oral, BID, # 180 tab(s), 1 Refill(s), Pharmacy: [facility], 180, cm, 02/28/22 10:42:00 EST, Height, kg, 02/28/22 10:42:00 EST, Dosing Weight Start Date: 02/28/22 Status: Ordered Start: 08-17-2018 End: 08-23-2018 take 1 tablet by mouth twice daily Sotalol (Sotalol Af) 80 MG tablet Discontinued 80 MG PO TWICE A DAY August 17, 2018 12:00am August 23, 2018 9:50am temazepam 15 mg oral capsule (1 source) Benzodiazepine temazepam 15 mg ORAL Cap Take by mouth at bedtime as needed. 0 Active Comment on above: Take by mouth at bed time as needed. ticagrelor 90 mg oral tablet (6 sources) Start: 9 End: 0 take 90 mg by mouth twice daily Ticagrelor Discontinued 90 MG PO TWICE A DAY 60 March 05, 2019 1:00am May 06, 2019 12:34pm Problems Active Problems Problem Classification Problem Date Documented Date Episodic/Chronic Adjustment disorders (2 sources) Grief finding 07-26-2024 Chronic Asthma (20 sources) Asthma 02-13-2023 Chronic Cardiac dysrhythmias (20 sources) Paroxysmal atrial flutter; Translations: [Unspecified atrial flutter] Onset: 01-23-20 24 08-20-2021 Chronic Chronic kidney disease (20 sources) Chronic kidney disease stage 3A ; Translations: [Chronic kidney disease] 02-28-2022 Chronic Chronic kidney disease (4 sources) Chronic kidney disease; Translations: [Chronic kidney disease, stage 3a] Onset: 09-19-19 24 Chronic obstructive pulmonary disease and bronchiectasis (20 sources) Acute exacerbation of chronic obstructive airways disease with asthma; Translations: [Chronic obstructive pulmonary disease with (acute) exacerbation] Onset: 06-17-19 15 06-16-2014 Chronic Chronic ulcer of skin (3 sources) Non-pressure chronic ulcer of unspecified part of left lower leg with unspecified severity; Translations: [Non-pressure chronic ulcer of unspecified part of left lower leg with fat layer exposed] Onset: 02-14-20 Chronic Conduction disorders (18 sources) First degree atrioventricular block 03-15-2023 Chronic Congestive heart failure; nonhypertensive (20 sources) Diastolic heart failure; Translations: [Unspecified diastolic (congestive) heart failure] 08-20-2021 Chronic Coronary atherosclerosis and other heart disease (20 sources) History of non-ST segment elevation myocardial infarction; Translations: [Old myocardial infarction] Onset: 03-03-20 19 08-20-2021 Chronic Deficiency and other anemia (20 sources) Microcytic anemia 08-20-2021 Episodic Disorders of lipid metabolism (20 sources) Pure hypercholesterolemia; Translations: [Hyperlipidemia] 08-20-2021 Chronic Essential hypertension (20 sources) Hypertensive disorder; Translations: [Essential (primary) hypertension] Onset: 06-17-19 15 06-16-2014 Chronic Genitourinary symptoms and ill-defined conditions (1 source) Grade A3 albuminuria 02-28-2022 Episodic Gout and other crystal arthropathies (20 sources) Acute gout; Translations: [Gout, unspecified] Onset: 09-19-19 Chronic Headache; including migraine (11 sources) Migraine 09-25-2018 Chronic Mood disorders (20 sources) Depressive disorder; Translations: [Major depression in remission] 09-25-2018 Chronic Nonspecific chest pain (6 sources) Chest pain; Translations: [Chest pain, unspecified] 09-02-2019 Episodic Osteoarthritis (20 sources) Osteoarthritis; Translations: [Osteoarthritis of hip] Onset: 03-21-1910-01-2018 Chronic Other aftercare (20 sources) Long-term current use of anticoagulant; Translations: [termination clerk (current) use of anticoagulants] Onset: 08-08-1911-26-2021 Episodic Other aftercare (3 sources) termination clerk (current) use of anticoagulants; Translations: [retirement (current) use of anticoagulants] Onset: 02-28-20 Episodic Other aftercare (1 source) Other intermediate project manager (current) drug therapy; Translations: [Other intermediate project manager (current) drug therapy] Onset: 01-11-20 Episodic Other aftercare (1 source) Encounter for therapeutic drug level monitoring; Translations: [Encounter for therapeutic drug level monitoring] Onset: 01-11-20 Episodic Other and ill-defined heart disease (2 sources) Left ventricular hypertrophy 07-26-2024 Chronic Other circulatory disease (18 sources) Difficult venous access 03-15-2023 Episodic Other circulatory disease (18 sources) History of acute ST segment elevation myocardial infarction 03-21-2023 Episodic Other circulatory disease (18 sources) History of cardiac arrest 03-21-2023 Episod ic Other circulatory disease (9 sources) Vascular insufficiency 11-15-2023 Episodic Other connective tissue disease (1 source) Trochanteric bursitis of right hip; Translations: [Trochanteric bursitis, right hip] Onset: 03-21-19 Episodic Other connective tissue disease (8 sources) Trochanteric bursitis 03-01-2024 Episodic Other diseases of kidney and ureters (1 source) Disorder of kidney and/or ureter; Translations: [Disorder of kidney and ureter, unspecified] Episodic Other lower respiratory disease (6 sources) Dyspnea on exertion; Translations: [Dyspnea, unspecified] 08-01-2019 Episodic Other male genital disorders (20 sources) Impotence 08-20-2021 Chronic Other nervous system disorders (5 sources) Unable to walk; Translations: [Difficulty in walking, not elsewhere classified] 12-28-2021 Chronic Other nervous system disorders (2 sources) Difficulty in walking, not elsewhere classified; Translations: [Difficulty in walking] Chronic Other nervous system disorders (1 source) Chronic pain; Translations: [Other chronic pain] Onset: 01-10-20 Chronic Other nervous system disorders (18 sources) Paresthesia of lower extremity 03-15-2023 Episodic Other non-traumatic joint disorders (8 sources) Arthritis of hip 03-01-2024 Chronic Other nutritional; endocrine; and metabolic disorders (1 source) Obesity; Translations: [Obesity, unspecified] Onset: 06-17-19 15 06-16-2014 Chronic Other nutritional; endocrine; and metabolic disorders (20 sources) Body mass index 40+ - severely obese 08-20-2021 Chronic Other nutritional; endocrine; and metabolic disorders (2 sources) Morbid obesity 07-26-2024 Chronic Other screening for suspected conditions (not mental disorders or infectious disease) (1 source) Abnormal renal function 09-24-2021 Episodic Phlebitis; thrombophlebitis and thromboembolism (20 sources) Deep venous thrombosis; Translations: [Acute embolism and thrombosis of unspecified deep veins of unspecified lower extremity] Onset: 06-17-19 15 06-16-2014 Episodic Residual codes; unclassified (20 sources) Obstructive sleep apnea syndrome 08-20-2021 Chronic Residual codes; unclassified (20 sources) Insomnia 09-25-2018 Episodic Residual codes; unclassified (20 sources) Chronic pain 08-24-2022 Episodic Spondylosis; intervertebral disc disorders; other back problems (20 sources) Degeneration of lumbar intervertebral disc; Translations: [Lumbar spondylosis] Onset: 10-04-19 23 03-26-2020 Chronic Spondylosis; intervertebral disc disorders; other back problems (20 sources) Low back pain; Translations: [Low back pain] Onset: 03-28-19 12 03-28-2011 Episodic Substance-related disorders (7 sources) Nicotine dependence; Translations: [Nicotine dependence, unspecified, uncomplicated] Onset: 02-28-20 24 09-27-2018 Chronic Unclassified (20 sources) Polypharmacy 08-20-2021 Unclassified (20 sources) Prescribed medication regimen behavior finding 08-20-2021 Unclassified (20 sources) Colon cancer screening declined 02-28-2022 Unclassified (1 source) Patient encounter status 02-28-2022 Unclassified (20 sources) Grade A1 albuminuria 05-24-2022 Unclassified (14 sources) Postprocedural state finding 09-06-2023 Unclassified (7 sources) Injury of left leg 11-15-2023 Unclassified (1 source) Irritant contact dermatitis due friction or contact with other specified body fluids; Translations: [Irritant contact dermatitis due friction or contact with other specified body fluids] Onset: 04-14-19 24 Unclassified (2 sources) Lipoprotein (a) hyperlipoproteinemia 07-26-2024 Varicose veins of lower extremity (1 source) Varicose veins of bilateral lower extremities with other complications; Translations: [Varicose veins of bilateral lower extremities with other complications] Onset: 02-28-20 Episodic Past or Other Problems Problem Classification Problem Date Documented Da te Episodic/Chronic Coronary atherosclerosis and other heart disease (2 sources) Presence of coronary angioplasty implant and graft; Translations: [Percutaneous transluminal coronary angioplasty status] Onset: 03-03-2019 Episodic Other connective tissue disease (2 sources) Neuralgia and neuritis, unspecified; Translations: [Neuralgia and neuritis, unspecified] Onset: 04-14-2023 Episodic Residual codes; unclassified (1 source) Tobacco user; Translations: [Tobacco use] Onset: 06-16-2014 06-16-2014 Episodic Unclassified (1 source) Irritant contact dermatitis due friction or contact with other specified body fluids; Translations: [Irritant contact dermatitis due friction or contact with other specified body fluids] Onset: 04-14-2023 Results Test Name Value Interpretation Reference Range Facility XR FLUORO GUIDANCE FOR THERA PY INJECTIONon 01-10-2025 XR FLUORO GUIDANCE FOR THERAPY INJECTION ORIGINAL Images acquired, not reported on this accession number. Normal [facility] APOBon 09-26-2024 Apolipoprotein B [Mass/Vol] 68 mg/dL Normal <90 [facility] Comment on above: Result Comment: Katherine liz < 90 Borderline High 90 - 99 High 100 - 130 Very High >130 ASCVD RISK THERAPEUTIC TARGET CATEGORY APO B (mg/dL) Very High Risk <80 (if extreme risk <70) High Risk <90 Moderate Risk <90 Performed At: [facility] [id number] Noah Fernández MD Ph:[phone] Performed By: #### P BNP, GFR, CMP, VIDH, URIC, [id number], LIPID ####[address] [place], [place] [address] .GFRon 09-23-2024 Estimated Glomerular Filtration Rate 77 ml/min/1.73sqm Normal [facility] Comment on above: Result Comment: Stages of Chronic Kidney Disease (CKD) Stage Description eGFR(ml/min/1.73 sq.m.) CKD 1 Normal kidney function or >=90 normal kindney function with possible kidney damage (ex. Proteinuria) CKD 2 Kidney damage with mild loss 60-89 of kidney function CKD 3a Mild to moderate loss of kidney 45-59 function CKD 3b Moderate to severe loss of 30-44 of kindey function CKD 4 Severe loss of kidney function 15-29 CKD 5 Kidney failure <15 Note: (go live 2024) the eGFR calculation was updated to the 2020 CKD-EPI creatinine equation without a race factor to calculate the eGFR results. Performed By: #### P BNP, GFR, CMP, VIDH, URIC, [id number], LIPID ####[address] [place], [place] [address] CMPon 09-23-2024 Albumin Level 3.3 G/dL Low 3.4-4.8 [facility] Comment on above: Performed By: #### P BNP, GFR, CMP, VIDH, URIC, [id number], LIPID ####[address] [place], [place] [address] Albumin/Globulin [Mass ratio] 0.8 {ratio} Low 1.1-2.5 [facility] Comment on above: Performed By: #### P BNP, GFR, CMP, VIDH, URIC, [id number], LIPID ####[place] [address] [place], [place] [address] ALP [Catalytic activity/Vol] 85 U/L Normal 40-135 [facility] Comment on above: Performed By: #### P BNP, GFR, CMP, VIDH, URIC, [id number], LIPID ####[place] [address] [place], [place] [address] ALT [Catalytic activity/Vol] 26 U/L Normal 16-63 [facility] Comment on above: Performed By: #### P BNP, GFR, CMP, VIDH, URIC, [id number], LIPID ####[facility] [place], [place] [address] AST [Catalytic activity/Vol] 20 U/L Normal 10-40 [facility] Comment on above: Performed By: #### P BNP, GFR, CMP, VIDH, URIC, [id number], LIPID ####[address] [place], [place] [address] Bili Total 0.8 mg/dL Normal 0.2-1.0 [facility] Comment on above: Result Comment: Use of this assay is not recommended for patients undergoing treatment with eltrombopag due to the potential for falsely elevated results. Performed By: #### P BNP, GFR, CMP, VIDH, URIC, [id number], LIPID ####[address] [place], [place] [address] BUN/Creatinine Ratio 15 ratio Normal 7-27 [facility] Comment on above: Performed By: #### P BNP, GFR, CMP, VIDH, URIC, [id number], LIPID ####[address] [place], [place] [address] Calcium [Mass/Vol] 9.0 mg/dL Normal 8.4-10.2 [facility] Comment on above: Performed By: #### P BNP, GFR, CMP, VIDH, URIC, [id number], LIPID ####[address] [place], [place] [address] Chloride [Moles/Vol] 106 mmol/L Normal 98-107 [facility] Comment on above: Performed By: #### P BNP, GFR, CMP, VIDH, URIC, [id number], LIPID ####[address] [address] CO2 [Moles/Vol] 25 mmol/L Normal 23-31 [facility] Comment on above: Performed By: #### P BNP, GFR, CMP, VIDH, URIC, [id number], LIPID ####[address] [place], [place] [address] Creatinine [Mass/Vol] 1.07 mg/dL Normal 0.67-1.17 [facility] Comment on above: Performed By: #### P BNP, GFR, CMP, VIDH, URIC, [id number], LIPID ####[address] [place], [place] [address] Electrolyte Balance 12.0 mEq/L Normal 4.0-15.[address] [facility] Comment on above: Performed By: #### P BNP, GFR, CMP, VIDH, URIC, [id number], LIPID ####[address] [place], [place] [address] Globulin 4.1 G/dL Normal 2.7-4.4 [facility] Comment on above: Performed By: #### P BNP, GFR, CMP, VIDH, URIC, [id number], LIPID ####[address] [place], [place] [address] Glucose [Mass/Vol] 133 mg/dL High 80-115 [facility] Comment on above: Performed By: #### P BNP, GFR, CMP, VIDH, URIC, [id number], LIPID ####[address] [address] Potassium [Moles/Vol] 3.6 mmol/L Normal 3.5-5.1 [facility] Comment on above: Performed By: #### P BNP, GFR, CMP, VIDH, URIC, [id number], LIPID ####[address] [place], [place] [address] Sodium [Moles/Vol] 143 mmol/L Normal 136-145 [facility] Comment on above: Performed By: #### P BNP, GFR, CMP, VIDH, URIC, [id number], LIPID ####[address] [address] Total Protein 7.4 G/dL Normal 6.4-8.2 [facility] Comment on above: Performed By: #### P BNP, GFR, CMP, VIDH, URIC, [id number], LIPID ####[address] [place], [place] [address] Urea nitrogen [Mass/Vol] 16 mg/dL Normal 7-18 [facility] Comment on above: Performed By: #### P BNP, GFR, CMP, VIDH, URIC, [id number], LIPID ####[address] [place], [place] [address] LABORATORYOrdered By: SYSTEM SYSTEM on 09-23-2024 25-hydroxyvitamin D3 [Mass/Vol] 50.6 ng/mL Invalid Interpretation Code AO ADM SS Comment on above: Interpretive Data: I nterpretive Values Based on Total 25(OH) Vitamin D: Deficient <20 ng/mL Insufficient 20 - <30 ng/mL Sufficient 30-100 ng/mL Albumin BCP dye [Mass/Vol] 3.3 G/dL Low 3.4 - 4.8 G/dL AO ADM SS Albumin/Globulin [Mass ratio] 0.8 {ratio} Low 1.1 - 2.5 ratio AO ADM SS ALP [Catalytic activity/Vol] 85 U/L Normal 40 - 135 U/L AO ADM SS ALT With P-5'-P [Catalytic activity/Vol] 26 U/L Normal 16 - 63 U/L AO ADM SS AST With P-5'-P [Catalytic activity/Vol] 20 U/L Normal 10 - 40 U/L AO ADM SS Bilirubin [Mass/Vol] 0.8 mg/dL Normal 0.2 - 1 .0 mg/dL AO ADM SS Comment on above: Interpretive Data: U se of this assay is not recommended for patients undergoing treatment with eltrombopag due to the potential for falsely elevated results. Calcium [Mass/Vol] 9.0 mg/dL Normal 8.4 - 10. 2 mg/dL AO ADM SS Chloride [Moles/Vol] 106 mmol/L Normal 98 - 10 7 mmol/L AO ADM SS CO2 [Moles/Vol] 25 mmol/L Normal 23 - 31 mmol/L AO ADM SS Creatinine [Mass/Vol] 1.07 mg/dL Normal 0.67 - 1.17 mg/dL AO ADM SS Electrolyte Balance 12.0 mEq/L Normal 4.0 - 15 .0 mEq/L AO ADM SS Estimated Glomerular Filtration Rate 77 ml/min/1.73sqm Invalid Interpretation Code AO Chemistry S Comment on above: Interpretive Data: Stages of Chronic Kidney Disease (CKD) Stage Description eGFR(ml/min/1.73 sq.m.) CKD 1 Normal kidney function or >=90 normal kindney function with possible kidney damage (ex. Proteinuria) CKD 2 Kidney damage with mild loss 60-89 of kidney function CKD 3a Mild to moderate loss of kidney 45-59 function CKD 3b Moderate to severe loss of 30-44 of kindey function CKD 4 Severe loss of kidney function 15-29 CKD 5 Kidney failure <15 Note: (go live 2024) the eGFR calculation was updated to the 2020 CKD-EPI creatinine equation without a race factor to calculate the eGFR results. Globulin 4.1 G/dL Normal 2.7 - 4.4 G/dL AO ADM SS Glucose [Mass/Vol] 133 mg/dL High 80 - 115 mg/dL AO ADM SS Natriuretic peptide.B prohormone N-Terminal [Mass/Vol] 244 pg/mL High 0 - 125 pg/mL AO ADM SS Comment on above: Interpretive Data: N T-proBNP results of less than 300 pg/mL effectively rules out acute congestive heart failure with 99% negative predictive value. Potassium [Moles/Vol] 3.6 mmol/L Normal 3.5 - 5.1 mmol/L AO ADM SS Protein [Mass/Vol] 7.4 G/dL Normal 6.4 - 8.2 G/dL AO ADM SS Sodium [Moles/Vol] 143 mmol/L Normal 136 - 145 mmol/L AO ADM SS Urea nitrogen [Mass/Vol] 16 mg/dL Normal 7 - 18 mg/dL AO ADM SS Urea nitrogen/Creatinine [Mass ratio] 15 ratio Normal 7 - 27 ratio AO ADM SS Uric Acid Lvl 6.2 mg/dL Normal 3.5 - 7.2 mg/dL AO ADM SS LABORATORYOrdered By: Cinthia Moreland on 09-23-2024 Cholesterol [Mass/Vol] 137 mg/dL Normal 0 - 200 mg/dL AO ADM SS Comment on above: Interpretive Data: C holesterol Reference Interval: Less than 200 Desirable 200-239 Borderline high risk 240 and above High risk Cholesterol in HDL [Mass/Vol] 54 mg/dL Normal 40 - 60 mg/dL AO ADM SS Cholesterol in LDL [Mass/Vol] 73 mg/dL Normal 0 - 130 mg/dL AO ADM SS Triglyceride [Mass/Vol] 50 mg/dL Normal 0 - 150 mg/dL AO ADM SS Comment on above: Interpretive Data: T riglyceride Reference Interval: Less than 150 Normal 150-199 Borderline high risk 200-499 High risk 500 or higher Very high risk LIPIDon 09-23-2024 Cholesterol [Mass/Vol] 137 mg/dL Normal 0-200 [facility] Comment on above: Result Comment: Chol esterol Reference Interval: Less than 200 Desirable 200-239 Borderline high risk 240 and above High risk Performed By: #### P BNP, GFR, CMP, VIDH, URIC, [id number], LIPID ####[address] [place], [place] [address] Cholesterol in HDL [Mass/Vol] 54 mg/dL Normal 40-60 [facility] Comment on above: Performed By: #### P BNP, GFR, CMP, VIDH, URIC, [id number], LIPID ####[address] [place], [place] [address] Cholesterol in LDL [Mass/Vol] 73 mg/dL Normal 0-130 [facility] Comment on above: Performed By: #### P BNP, GFR, CMP, VIDH, URIC, [id number], LIPID ####[address] [address] Triglyceride [Mass/Vol] 50 mg/dL Normal 0-150 [facility] Comment on above: Result Comment: Trig lyceride Reference Interval: Less than 150 Normal 150-199 Borderline high risk 200-499 High risk 500 or higher Very high risk Performed By: #### P BNP, GFR, CMP, VIDH, URIC, [id number], LIPID ####[address] [address] PBNPon 09-23-2024 Natriuretic peptide B (Bld) [Mass/Vol] 244 pg/mL High 0-125 [facility] Comment on above: Result Comment: NT-p roBNP results of less than 300 pg/mL effectively rules out acute congestive heart failure with 99% negative predictive value. Performed By: #### P BNP, GFR, CMP, VIDH, URIC, [id number], LIPID ####[address] [place], [place] [address] URICon 09-23-2024 Uric Acid Lvl 6.2 mg/dL Normal 3.5-7.2 [facility] Comment on above: Performed By: #### P BNP, GFR, CMP, VIDH, URIC, [id number], LIPID ####[address] [place], [place] [address] VIDHon 09-23-2024 Vit. D 25-Hydroxy 50.6 ng/mL Normal [facility] Comment on above: Result Comment: Inte rpretive Values Based on Total 25(OH) Vitamin D: Deficient <20 ng/mL Insufficient 20 - <30 ng/mL Sufficient 30-100 ng/mL Performed By: #### P BNP, GFR, CMP, VIDH, URIC, [id number], LIPID ####[facility] [place], [place] [address] PMDSon 08-15-2024 [employer]ox[employer] 13 Summary FINAL Normal [facility] Comment on above: Result Comment: ==== TOXASSURE COMP DRUG ANALYSIS,UR ==== Test Result Flag Units Drug Present and Declared for Prescription Verification Oxycodone 693 EXPECTED ng/mg creat Oxymorphone 176 EXPECTED ng/mg creat Noroxycodone 1237 EXPECTED ng/mg creat Sources of oxycodone include scheduled prescription medications. Oxymorphone and noroxycodone are expected metabolites of oxycodone. Oxymorphone is also available as a scheduled prescription medication. Trazodone PRESENT EXPECTED 1,3 chlorophenyl piperazine PRESENT EXPECTED 1,3-chlorophenyl piperazine is an expected metabolite of trazodone. Acetaminophen PRESENT EXPECTED Drug Present not Declared for Prescription Verification Naproxen PRESENT UNEXPECTED Clonidine PRESENT UNEXPECTED ==== Test Result Flag Units Ref Range Creatinine 123 mg/dL >=20 ==== Declared Medications: The flagging and interpretation on this report are based on the following declared medications. Unexpected results may arise from inaccuracies in the declared medications. Note: The testing scope of this panel includes these medications: Oxycodone (Percocet) Trazodone (Desyrel) Note: The testing scope of this panel does not include small to moderate amounts of these reported medications: Acetaminophen (Percocet) ==== For clinical consultation, please call . ==== Performed At: [facility] [address] [place] [id number] Stevie Dupree [facility] Ph:[phone] Performed By: #### 7 [id number] #### [place] [address] XR FLUORO GUIDANCE FOR THERA PY INJECTIONon 06-21-2024 XR FLUORO GUIDANCE FOR THERAPY INJECTION ORIGINAL Images acquired, not reported on this accession number. Normal [facility] APOBon 04-20-2024 Apolipoprotein B [Mass/Vol] 130 mg/dL High <90 [facility] Comment on above: Result Comment: Katherine rable < 90 Borderline High 90 - 99 High 100 - 130 Very High >130 ASCVD RISK THERAPEUTIC TARGET CATEGORY APO B (mg/dL) Very High Risk <80 (if extreme risk <70) High Risk <90 Moderate Risk <90 Performed At: [facility] [id number] Noah Fernández MD Ph:[phone] Performed By: #### 1 [id number] ####[address] [place], [place] [address] APOBon 04-18-2024 Apolipoprotein B [Mass/Vol] Not performed Normal [facility] Comment on above: Result Comment: Test not performed. Insufficient specimen to perform or complete analysis. CONTACTED WILL Herbert AT YOUR FACILITY VIA EMAIL ON 04-17-2024 Desirable < 90 Borderline High 90 - 99 High 100 - 130 Very High >130 ASCVD RISK THERAPEUTIC TARGET CATEGORY APO B (mg/dL) Very High Risk <80 (if extreme risk <70) High Risk <90 Moderate Risk <90 [facility]formed [facility]: [facility] [address] [place] [id number] Noah Fernández MD Ph:[phone] Performed By: #### T SHR, LIPID, PSA, [id number], URIC, VIDH, GFR, [id number], CMP ####[address] [place], [place] [address] .Auto Diffon 04-15-2024 Basophil, Absolute 0.1 10 3/mcL Normal 0.0-0.2 [facility] Comment on above: Performed By: #### C BC, A1C, ANEU, ADIFF #### [address] [place], [place] [address] Basophils/100 WBC (Bld) 1.2 % Normal 0.0-2.5 [facility] Comment on above: Performed By: #### C BC, A1C, ANEU, ADIFF #### [address] [address] Eosinophil, Absolute 0.3 10 3/mcL Normal 0.0-0.7 [facility] Comment on above: Performed By: #### C BC, A1C, ANEU, ADIFF #### [address] [address] Eosinophils/100 WBC (Bld) 4.8 % Normal 0.0-7.0 [facility] Comment on above: Performed By: #### C BC, A1C, ANEU, ADIFF #### [address] [address] Lymphocyte, Absolute 1.9 10 3/mcL Normal 0.9-4.3 [facility] Comment on above: Performed By: #### C BC, A1C, ANEU, ADIFF #### [address] [address] Lymphocytes/100 WBC (Bld) 28.3 % Normal 20.0-40.0 [facility] Comment on above: Performed By: #### C BC, A1C, ANEU, ADIFF #### [address] [address] Monocyte, Absolute 0.8 10 3/mcL Normal 0.1-1.4 [facility] Comment on above: Performed By: #### C BC, A1C, ANEU, ADIFF #### [address] [address] Monocytes/100 WBC (Bld) 12.7 % Normal 2.0-13.0 [facility] Comment on above: Performed By: #### C BC, A1C, ANEU, ADIFF #### [address] [address] Neutrophils/100 WBC (Bld) 53.0 % Normal 50.0-75.0 [facility] Comment on above: Performed By: #### C BC, A1C, ANEU, ADIFF #### [address] [address] .NEUABSon 04-15-2024 Neutrophil, Absolute 3.5 10 3/mcL Normal 2.3-8.1 [facility] Comment on above: Performed By: #### C BC, A1C, ANEU, ADIFF #### [address] [address] A1Con 04-15-2024 Glucose [Mass/Vol] 114 mg/dL Normal [facility] Comment on above: Result Comment: Linda mated Average Glucose calculated by equation ((28.7xA1C)-46.7) Estimated average glucose (eAG) is a calculated value from Hemoglobin A1C and is dental detail representative of the average blood glucose level in the last 2-3 month period. Normal range: less than 114 mg/dL Performed By: #### C BC, A1C, ANEU, ADIFF #### [place] [address] HbA1c (Bld) [Mass fraction] 5.6 % Normal 4.3-6.4 [facility] Comment on above: Performed By: #### C BC, A1C, ANEU, ADIFF #### [place] [address] CBCon 04-15-2024 Erythrocyte distribution width (RBC) [Ratio] 16.9 % High 11.5-15.5 [facility] Comment on above: Performed By: #### C BC, A1C, ANEU, ADIFF #### [place] [address] Hematocrit (Bld) [Volume fraction] 49.4 % Normal 40.0-52.0 [facility] Comment on above: Performed By: #### C BC, A1C, ANEU, ADIFF #### [place] [address] Hgb 15.7 G/dL Normal 13.0-17.5 [facility] Comment on above: Performed By: #### C BC, A1C, ANEU, ADIFF #### [place] [address] MCH (RBC) [Entitic mass] 27.0 pg Normal 27.0-33.0 [facility] Comment on above: Performed By: #### C BC, A1C, ANEU, ADIFF #### [place] [address] MCHC 31.7 G/dL Low 32.0-36.0 [facility] Comment on above: Performed By: #### C BC, A1C, ANEU, ADIFF #### [place] [address] MCV (RBC) [Entitic vol] 85.3 fL Normal 81.0-100.0 [facility] Comment on above: Performed By: #### C BC, A1C, ANEU, ADIFF #### [place] [address] Platelet 168 10 3/mcL Normal 150-450 [facility] Comment on above: Performed By: #### C BC, A1C, ANEU, ADIFF #### [place] [address] Platelet mean volume (Bld) [Entitic vol] 9.5 fL Normal 6.4-10.5 [facility] Comment on above: Performed By: #### C BC, A1C, ANEU, ADIFF #### [place] [address] RBC 5.79 10 6/mcL Normal 4.50-6.00 [facility] Comment on above: Performed By: #### C BC, A1C, ANEU, ADIFF #### [place] [address] WBC 6.6 10 3/mcL Normal 4.5-10.8 [facility] Comment on above: Performed By: #### C BC, A1C, ANEU, ADIFF #### [place] [address] LABORATORYOrdered By: SYSTEM SYSTEM on 04-15-2024 Basophils (Bld) [#/Vol] 0.1 103/mcL Normal 0.0 - 0.2 10^3/mcL AO Workflow SS Basophils/100 WBC (Bld) 1.2 % Normal 0.0 - 2.5 % AO Workflow SS Eosinophil, Absolute 0.3 103/mcL Normal 0.0 - 0 .7 10^3/mcL AO Workflow SS Eosinophils/100 WBC (Bld) 4.8 % Normal 0.0 - 7.0 % AO Workflow SS Erythrocyte distribution width (RBC) [Ratio] 16.9 % High 11.5 - 15.5 % AO Workflow SS Glucose [Mass/Vol] 114 mg/dL Invalid Interpretation Code AO Chemistry S Comment on above: Interpretive Data: E stimated average glucose (eAG) is a calculated value from Hemoglobin A1C and is dental detail representative of the average blood glucose level in the last 2-3 month period. Normal range: less than 114 mg/dL HbA1c (Bld) [Mass fraction] 5.6 % Normal 4.3 - 6.4 % AO ADM SS Hematocrit (Bld) [Volume fraction] 49.4 % Normal 40.0 - 52.0 % AO Workflow SS Hemoglobin (Bld) [Mass/Vol] 15.7 G/dL Normal 13.0 - 17.5 G/dL AO Workflow SS Lymphocytes (Bld) [#/Vol] 1.9 103/mcL Normal 0.9 - 4.3 10^3/mcL AO Workflow SS Lymphocytes/100 WBC (Bld) 28.3 % Normal 20.0 - 40.0 % AO Workflow SS MCH (RBC) [Entitic mass] 27.0 pg Normal 27.0 - 33.0 pg AO Workflow SS MCHC 31.7 G/dL Low 32.0 - 36.0 G/dL AO Workflow SS MCV (RBC) [Entitic vol] 85.3 fL Normal 81.0 - 100.0 fL AO Workflow SS Monocytes (Bld) [#/Vol] 0.8 103/mcL Normal 0.1 - 1.4 10^3/mcL AO Workflow SS Monocytes/100 WBC (Bld) 12.7 % Normal 2.0 - 13.0 % AO Workflow SS Neutrophils (Bld) [#/Vol] 3.5 103/mcL Normal 2.3 - 8.1 10^3/mcL AO Workflow SS Neutrophils/100 WBC (Bld) 53.0 % Normal 50.0 - 75.0 % AO Workflow SS Platelet mean volume (Bld) [Entitic vol] 9.5 fL Normal 6.4 - 10.5 fL AO Workflow SS Platelets (Bld) [#/Vol] 168 103/mcL Normal 150 - 450 10^3/mcL AO Workflow SS RBC (Bld) [#/Vol] 5.79 106/mcL Normal 4.50 - 6.0 0 10^6/mcL AO Workflow SS WBC (Bld) [#/Vol] 6.6 103/mcL Normal 4.5 - 10.8 10^3/mcL AO Workflow SS LIPOAon 04-12-2024 Lipoprotein a [Moles/Vol] 296.1 nmol/L High <75.0 [facility] Comment on above: Result Comment: Resu lts confirmed on dilution. Note: Values greater than or equal to 75.0 nmol/L may indicate an independent risk factor for CHD, but must be evaluated with caution when applied to non- populations due to the influence of genetic factors on Lp(a) across ethnicities. Performed At: [facility] [id number] Carmel Manzano PhD Ph:[phone] Performed By: #### T SHR, LIPID, PSA, [id number], URIC, VIDH, GFR, [id number], CMP ####[facility] [place] [address] XR HIP 2-3 VIEWS RIGHTon XR HIP 2-3 VIEWS RIGHT ORIGINAL EXAMINATION: 2 XRAY VIEWS OF THE RIGHT HIP 04/11/2024 2:52 pm COMPARISON: None. HISTORY: ORDERING SYSTEM PROVIDED HISTORY: Reason for Exam: right hip pain FINDINGS: Marked osteoarthritis of the right hip is identified, with very prominent marginal sclerosis, near complete lack of joint space, and prominent subchondral cyst formation. There is also flattening of the head of the right femur. No fracture or dislocation is evident. No other potential acute finding. IMPRESSION: Marked osteoarthritis. No acute fracture seen. Interpreted by: Azalia Khan MD Preliminary Report By: Azalia Khan MD Electronically signed By Azalia Khan MD Dictated Date: 04/12/2024 9:41:28 AM Prelim Date: 04/12/2024 9:42:11 AM Sign Date: 04/12/2024 9:42:11 AM Ordering Provider: SAMANTHA Rodríguez [facility] .GFRon 04-11-2024 GFR 66 ml/min/1.73sqm Normal [facility] Comment on above: Result Comment: GFR Population mean for , Non- Americans Ages 20-29 = 116 mL/min/1.73 sq.m. Ages 30-39 = 107 mL/min/1.73 sq.m. Ages 40-49 = 99 mL/min/1.73 sq.m. Ages 50-59 = 93 mL/min/1.73 sq.m. Ages 60-69 = 85 mL/min/1.73 sq.m. Ages 70+ = 75 mL/min/1.73 sq.m. Chronic Kidney Disease: Less than 60 mL/min/1.73 square meters End Stage Renal Disease: Less than 15 mL/min/1.73 square meters Performed By: #### T SHR, LIPID, PSA, [id number], URIC, VIDH, GFR, [id number], CMP ####[address] [place], [place] [address] GFR Non- 54 ml/min/1.73sqm Normal [facility] Comment on above: Result Comment: GFR Population mean for , Non- Americans Ages 20-29 = 116 mL/min/1.73 sq.m. Ages 30-39 = 107 mL/min/1.73 sq.m. Ages 40-49 = 99 mL/min/1.73 sq.m. Ages 50-59 = 93 mL/min/1.73 sq.m. Ages 60-69 = 85 mL/min/1.73 sq.m. Ages 70+ = 75 mL/min/1.73 sq.m. Chronic Kidney Disease: Less than 60 mL/min/1.73 square meters End Stage Renal Disease: Less than 15 mL/min/1.73 square meters Performed By: #### T SHR, LIPID, PSA, [id number], URIC, VIDH, GFR, [id number], CMP ####[address] [place], [place] [address] CMPon 04-11-2024 Albumin Level 3.8 G/dL Normal 3.4-4.8 [facility] Comment on above: Performed By: #### T SHR, LIPID, PSA, [id number], URIC, VIDH, GFR, [id number], CMP #### [place] [address] Albumin/Globulin [Mass ratio] 1.0 {ratio} Low 1.1-2.5 [facility] Comment on above: Performed By: #### T SHR, LIPID, PSA, [id number], URIC, VIDH, GFR, [id number], CMP #### [place] [address] ALP [Catalytic activity/Vol] 96 U/L Normal 40-135 [facility] Comment on above: Performed By: #### T SHR, LIPID, PSA, [id number], URIC, VIDH, GFR, [id number], CMP #### [place] [address] ALT [Catalytic activity/Vol] 17 U/L Normal 16-63 [facility] Comment on above: Performed By: #### T SHR, LIPID, PSA, [id number], URIC, VIDH, GFR, [id number], CMP #### [place] [address] AST [Catalytic activity/Vol] 17 U/L Normal 10-40 [facility] Comment on above: Performed By: #### T SHR, LIPID, PSA, [id number], URIC, VIDH, GFR, [id number], CMP #### [place] [address] Bili Total 0.5 mg/dL Normal 0.2-1.0 [facility] Comment on above: Result Comment: Use of this assay is not recommended for patients undergoing treatment with eltrombopag due to the potential for falsely elevated results. Performed By: #### T SHR, LIPID, PSA, [id number], URIC, VIDH, GFR, [id number], CMP #### [place] [address] BUN/Creatinine Ratio 15 ratio Normal 7-27 [facility] Comment on above: Performed By: #### T SHR, LIPID, PSA, [id number], URIC, VIDH, GFR, [id number], CMP #### [place] [address] Calcium [Mass/Vol] 9.3 mg/dL Normal 8.4-10.2 [facility] Comment on above: Performed By: #### T SHR, LIPID, PSA, [id number], URIC, VIDH, GFR, [id number], CMP #### [address] [address] Chloride [Moles/Vol] 100 mmol/L Normal 98-107 [facility] Comment on above: Performed By: #### T SHR, LIPID, PSA, [id number], URIC, VIDH, GFR, [id number], CMP #### [address] [address] CO2 [Moles/Vol] 30 mmol/L Normal 23-31 [facility] Comment on above: Performed By: #### T SHR, LIPID, PSA, [id number], URIC, VIDH, GFR, [id number], CMP #### [place] [address] Creatinine [Mass/Vol] 1.33 mg/dL High 0.70-1.30 [facility] Comment on above: Result Comment: Test ing performed on Siemens Dimension EXL analyzer using a modified kinetic Feliz technique. Performed By: #### T SHR, LIPID, PSA, [id number], URIC, VIDH, GFR, [id number], CMP #### [address] [address] Electrolyte Balance 7.0 mEq/L Normal 4.0-15.[address] [facility] Comment on above: Performed By: #### T SHR, LIPID, PSA, [id number], URIC, VIDH, GFR, [id number], CMP #### [address] [address] Globulin 4.0 G/dL Normal [facility] Comment on above: Performed By: #### T SHR, LIPID, PSA, [id number], URIC, VIDH, GFR, [id number], CMP #### [place] [address] Glucose [Mass/Vol] 74 mg/dL Low 80-115 [facility] Comment on above: Performed By: #### T SHR, LIPID, PSA, [id number], URIC, VIDH, GFR, [id number], CMP #### [address] [address] Potassium [Moles/Vol] 4.1 mmol/L Normal 3.5-5.1 [facility] Comment on above: Performed By: #### T SHR, LIPID, PSA, [id number], URIC, VIDH, GFR, [id number], CMP #### [address] [address] Sodium [Moles/Vol] 137 mmol/L Normal 136-145 [facility] Comment on above: Performed By: #### T SHR, LIPID, PSA, [id number], URIC, VIDH, GFR, 148176, CMP #### [address] [address] Total Protein 7.8 G/dL Normal 6.4-8.2 [facility] Comment on above: Performed By: #### T SHR, LIPID, PSA, [id number], URIC, VIDH, GFR, [id number], CMP #### [address] [address] Urea nitrogen [Mass/Vol] 20 mg/dL High 7-18 [facility] Comment on above: Performed By: #### T SHR, LIPID, PSA, [id number], URIC, VIDH, GFR, 117388, CMP #### [address] [address] LABORATORYOrdered By: SYSTEM SYSTEM on 04-11-2024 25-hydroxyvitamin D3 [Mass/Vol] 41.8 ng/mL Invalid Interpretation Code AO ADM SS Comment on above: Interpretive Data: I nterpretive Values Based on Total 25(OH) Vitamin D: Deficient <20 ng/mL Insufficient 20 - <30 ng/mL Sufficient 30-100 ng/mL Albumin BCP dye [Mass/Vol] 3.8 G/dL Normal 3.4 - 4.8 G/dL AO ADM SS Albumin/Globulin [Mass ratio] 1.0 {ratio} Low 1.1 - 2.5 ratio AO ADM SS ALP [Catalytic activity/Vol] 96 U/L Normal 40 - 135 U/L AO ADM SS ALT With P-5'-P [Catalytic activity/Vol] 17 U/L Normal 16 - 63 U/L AO ADM SS AST With P-5'-P [Catalytic activity/Vol] 17 U/L Normal 10 - 40 U/L AO ADM SS Bilirubin [Mass/Vol] 0.5 mg/dL Normal 0.2 - 1 .0 mg/dL AO ADM SS Comment on above: Interpretive Data: U se of this assay is not recommended for patients undergoing treatment with eltrombopag due to the potential for falsely elevated results. Calcium [Mass/Vol] 9.3 mg/dL Normal 8.4 - 10. 2 mg/dL AO ADM SS Chloride [Moles/Vol] 100 mmol/L Normal 98 - 10 7 mmol/L AO ADM SS CO2 [Moles/Vol] 30 mmol/L Normal 23 - 31 mmol/L AO ADM SS Creatinine [Mass/Vol] 1.33 mg/dL High 0.70 - 1.30 mg/dL AO ADM SS Comment on above: Interpretive Data: T esting performed on Siemens Dimension EXL analyzer using a modified kinetic Feliz technique. Electrolyte Balance 7.0 mEq/L Normal 4.0 - 15 .0 mEq/L AO ADM SS GFR/1.73 sq M.predicted among blacks MDRD (S/P/Bld) [Vol rate/Area] 66 ml/min/1.73sqm Invalid Interpretation Code AO Chemistry S Comment on above: Interpretive Data: GFR Population mean for , Non- Americans Ages 20-29 = 116 mL/min/1.73 sq.m. Ages 30-39 = 107 mL/min/1.73 sq.m. Ages 40-49 = 99 mL/min/1.73 sq.m. Ages 50-59 = 93 mL/min/1.73 sq.m. Ages 60-69 = 85 mL/min/1.73 sq.m. Ages 70+ = 75 mL/min/1.73 sq.m. Chronic Kidney Disease: Less than 60 mL/min/1.73 square meters End Stage Renal Disease: Less than 15 mL/min/1.73 square meters GFR/1.73 sq M.predicted among non-blacks MDRD (S/P/Bld) [Vol rate/Area] 54 ml/min/1.73sqm Invalid Interpretation Code AO Chemistry S Comment on above: Interpretive Data: GFR Population mean for , Non- Americans Ages 20-29 = 116 mL/min/1.73 sq.m. Ages 30-39 = 107 mL/min/1.73 sq.m. Ages 40-49 = 99 mL/min/1.73 sq.m. Ages 50-59 = 93 mL/min/1.73 sq.m. Ages 60-69 = 85 mL/min/1.73 sq.m. Ages 70+ = 75 mL/min/1.73 sq.m. Chronic Kidney Disease: Less than 60 mL/min/1.73 square meters End Stage Renal Disease: Less than 15 mL/min/1.73 square meters Globulin 4.0 G/dL Invalid Interpretation Code AO ADM SS Glucose [Mass/Vol] 74 mg/dL Low 80 - 115 mg/dL AO ADM SS Potassium [Moles/Vol] 4.1 mmol/L Normal 3.5 - 5.1 mmol/L AO ADM SS Prostate specific Ag [Mass/Vol] 3.31 ng/mL Normal 0.00 - 4.00 ng/mL AO ADM SS Protein [Mass/Vol] 7.8 G/dL Normal 6.4 - 8.2 G/dL AO ADM SS Sodium [Moles/Vol] 137 mmol/L Normal 136 - 145 mmol/L AO ADM SS TSH Qn 1.56 m[IU]/L Normal 0.36 - 3.74 mcIU/mL AO ADM SS Urea nitrogen [Mass/Vol] 20 mg/dL High 7 - 18 mg/dL AO ADM SS Urea nitrogen/Creatinine [Mass ratio] 15 ratio Normal 7 - 27 ratio AO ADM SS Uric Acid Lvl 8.8 mg/dL High 3.5 - 7.2 mg/dL AO ADM SS LABORATORYOrdered By: Dandy Pressley on 04-11-2024 Cholesterol [Mass/Vol] 261 mg/dL High 0 - 200 mg/dL AO ADM SS Comment on above: Interpretive Data: C holesterol Reference Interval: Less than 200 Desirable 200-239 Borderline high risk 240 and above High risk Cholesterol in HDL [Mass/Vol] 65 mg/dL High 40 - 60 mg/dL AO ADM SS Cholesterol in LDL [Mass/Vol] 176 mg/dL High 0 - 130 mg/dL AO ADM SS Triglyceride [Mass/Vol] 98 mg/dL Normal 0 - 150 mg/dL AO ADM SS Comment on above: Interpretive Data: T riglyceride Reference Interval: Less than 150 Normal 150-199 Borderline high risk 200-499 High risk 500 or higher Very high risk LIPIDon 04-11-2024 Cholesterol [Mass/Vol] 261 mg/dL High 0-200 [facility] Comment on above: Result Comment: Chol esterol Reference Interval: Less than 200 Desirable 200-239 Borderline high risk 240 and above High risk Performed By: #### T SHR, LIPID, PSA, [id number], URIC, VIDH, GFR, [id number], CMP ####[address] [place], [place] [address] Cholesterol in HDL [Mass/Vol] 65 mg/dL High 40-60 [facility] Comment on above: Performed By: #### T SHR, LIPID, PSA, [id number], URIC, VIDH, GFR, [id number], CMP ####[address] [place], [place] [address] Cholesterol in LDL [Mass/Vol] 176 mg/dL High 0-130 [facility] Comment on above: Performed By: #### T SHR, LIPID, PSA, [id number], URIC, VIDH, GFR, [id number], CMP ####[address] [place], [place] [address] Triglyceride [Mass/Vol] 98 mg/dL Normal 0-150 [facility] Comment on above: Result Comment: Trig lyceride Reference Interval: Less than 150 Normal 150-199 Borderline high risk 200-499 High risk 500 or higher Very high risk Performed By: #### T SHR, LIPID, PSA, [id number], URIC, VIDH, GFR, [id number], CMP ####[address] [place], [place] [address] PSAon 04-11-2024 Prostate Specific Antigen 3.31 ng/mL Normal 0.00-4.00 [facility] Comment on above: Performed By: #### T SHR, LIPID, PSA, [id number], URIC, VIDH, GFR, 167725, CMP ####[address] [place], [place] [address] TSHRon 04-11-2024 TSH Qn 1.56 m[IU]/L Normal 0.36-3.74 [facility] Comment on above: Performed By: #### T SHR, LIPID, PSA, [id number], URIC, VIDH, GFR, 904861, CMP ####[address] [place], [place] [address] URICon 04-11-2024 Uric Acid Lvl 8.8 mg/dL High 3.5-7.2 [facility] Comment on above: Performed By: #### T SHR, LIPID, PSA, [id number], URIC, VIDH, GFR, [id number], CMP #### [address] [place], [place] [address] VIDHon 04-11-2024 Vit. D 25-Hydroxy 41.8 ng/mL Normal [facility] Comment on above: Result Comment: Inte rpretive Values Based on Total 25(OH) Vitamin D: Deficient <20 ng/mL Insufficient 20 - <30 ng/mL Sufficient 30-100 ng/mL Performed By: #### T SHR, LIPID, PSA, [id number], URIC, VIDH, GFR, [id number], CMP ####[address] [place], [place] [address] LABORATORYOrdered By: Cinthia Moreland on 04-09-2024 Albumin DL <= 20 mg/L (U) [Mass/Vol] 3218 mcg/dL Invalid Interpretation Code AO ADM SS Albumin/Creatinine DL <= 20 mg/L (U) [Mass ratio] 55 mcg/mg High 0 - 30 mcg/mg AO Chemistry S Creatinine (U) [Mass/Vol] 58.2 mg/dL Invalid Interpretation Code AO ADM SS MALBRon 04-09-2024 U Creatinine 58.2 mg/dL Normal [facility] Comment on above: Performed By: #### M ALBR ####[address] [place], [place] [address] U Microalb 3218 mcg/dL Normal [facility] Comment on above: Performed By: #### M ALBR ####[address] [place], [place] [address] U Ratio Alb/Cre 55 mcg/mg High 0-30 [facility] Comment on above: Performed By: #### M ALBR ####[facility] [place], [place] [address] XR FLUORO GUIDANCE FOR THERA PY INJECTIONon 03-22-2024 XR FLUORO GUIDANCE FOR THERAPY INJECTION ORIGINAL Images acquired, not reported on this accession number. Normal [facility] PMDSon 02-14-2024 [employer]ox[employer] 13 Summary FINAL [facility] Comment on above: Result Comment: ==== TOXASSURE COMP DRUG ANALYSIS,UR ==== Test Result Flag Units Drug Present and Declared for Prescription Verification Oxycodone 620 EXPECTED ng/mg creat Oxymorphone 102 EXPECTED ng/mg creat Noroxycodone 791 EXPECTED ng/mg creat Sources of oxycodone include scheduled prescription medications. Oxymorphone and noroxycodone are expected metabolites of oxycodone. Oxymorphone is also available as a scheduled prescription medication. Acetaminophen PRESENT EXPECTED Drug Present not Declared for Prescription Verification Trazodone PRESENT UNEXPECTED 1,3 chlorophenyl piperazine PRESENT UNEXPECTED 1,3-chlorophenyl piperazine is an expected metabolite of trazodone. Naproxen PRESENT UNEXPECTED Doxylamine PRESENT UNEXPECTED Clonidine PRESENT UNEXPECTED Dextromethorphan PRESENT UNEXPECTED Dextrorphan/Levorphanol PRESENT UNEXPECTED Dextrorphan is an expected metabolite of dextromethorphan, an [id number] or prescription cough suppressant. Dextrorphan cannot be distinguished from the scheduled prescription medication levorphanol by the method used for analysis. ==== Test Result Flag Units Ref Range Creatinine 152 mg/dL >=20 ==== Declared Medications: The flagging and interpretation on this report are based on the following declared medications. Unexpected results may arise from inaccuracies in the declared medications. Note: The testing scope of this panel includes these medications: Oxycodone (Percocet) Note: The testing scope of this panel does not include small to moderate amounts of these reported medications: Acetaminophen (Percocet) ==== For clinical consultation, please call . ==== Performed At: [facility] [address], [place] [id number] Stevie Dupree [facility] Ph:[phone] Performed By: #### [id number] #### [facility] [address] [place] [address] Echo Complete W/ Contraston 01-01-2024 Echo Complete W/ Contrast [facility] [address] [place] [address] Echo Complete W/ Contrast 01/01/24 1357 MR#: [id number] Acct: [id number] Name: ARELI RUELAS Jr. Rep #: [id number] : 1960 63 From: Main Joyce MD Attending Dr: Dr. Main Joyce MD Status: RUDDY CARR Ordering Dr: Main Joyce MD Date: 01/01/24 Location: [facility] Sex: M AA Admitted: Reason For Study: ARRHYTHMIA Procedure This was a 2D Doppler, Color Flow transthoracic echocardiogram. The study was technically difficult. Contrast injection was performed. Exam performed in department. Left Ventricle Normal LV size. Moderate concentric left ventricular hypertrophy. Left ventricular systolic function is normal. The left ventricular ejection fraction is 60 %. Stage 1 diastolic dysfunction. No regional wall motion abnormalities noted. Right Ventricle Normal RV size. Normal systolic function. Atria Normal left atrium. Normal right atrium. Mitral Valve Normal mitral valve. Tricuspid Valve Normal tricuspid valve. Pulmonic Valve Normal pulmonic valve. Great Vessels Normal aortic root. Pericardium/Pleural No pericardial effusion. Medication 22 gauge I.V. with prn adaptor inserted into left arm. Diluted definity 2.5ml given slow IV push to enhance endocardial definition. MMode/2D Measurements Calculations LVIDd: 3.8 cm IVSd: 1.6 cm LVOT diam: 2.2 cm LVIDs: 2.1 cm LVPWd: 1.4 cm LVOT area: 3.9 cm2 RVDd: 4.5 cm FS: 43.6 % asc Aorta Diam: 3.4 cm LAV(MOD-bp): 71.6 ml LVAd ap4: 36.2 cm2 LAV(MOD-bp) Indexed: 26.8 ml/m2 LVLd ap4: 8.6 cm LAV(MOD-sp2): 90.5 ml EDV(MOD-sp4): 125.7 ml LAV(MOD-sp4): 50.9 ml EDV(sp4-el): 130.1 ml LVAs ap4: 21.0 cm2 LVLs ap4: 6.8 cm ESV(MOD-sp4): 53.8 ml ESV(sp4-el): 55.0 ml EF(MOD-sp4): 57.2 % EF(sp4-el): 57.7 % LVAd ap2: 42.6 cm2 SV(MOD-sp4): 71.9 ml SV(MOD-sp2): 92.6 ml LVLd ap2: 8.8 cm EDV(MOD-sp2): 165.7 ml EDV(sp2-el): 174.6 ml LVAs ap2: 25.7 cm2 LVLs ap2: 7.8 cm ESV(MOD-sp2): 73.1 ml ESV(sp2-el): 71.9 ml EF(MOD-sp2): 55.9 % SV(sp4-el): 75.1 ml Ao sinus diam: 3.[address] Junction: 3.1 cm LA dimension(2D): 4.4 cm LA A4 area: 19.5 cm2 RA A4 area: 16.5 cm2 TAPSE: 2.2 cm Time Measurements MV dec time: 0.20 sec Doppler Measurements Calculations MV E max amaya: 73.7 cm/sec Lat Peak E' Amaya: 11.9 cm/sec Med Peak E' Amaya: 7.1 cm/sec MV A max amaya: 84.1 cm/sec E/E' lat: 6.2 E/E' med: 10.4 MV E/A: 0.88 MV dec slope: 373.4 cm/sec2 Ao V2 max: 134.2 cm/sec LV V1 max: 109.3 cm/sec Ao max P.2 mmHg LV V1 max P.8 mmHg Ao V2 mean: 100.6 cm/sec LV V1 mean P.7 mmHg Ao mean P.4 mmHg LV V1 mean: 79.7 cm/sec Ao V2 VTI: 26.4 cm LV V1 VTI: 20.5 cm AV (velocity ratio): 0.77 FLORIDALMA(I,D): 3.0 cm2 FLORIDALMA(V,D): 3.2 cm2 SV(LVOT): 79.9 ml PA V2 max: 99.1 cm/sec PA max PG (full): 1.2 mmHg ECHO/Echo Complete W/ Contrast Interpretation Summary Normal LV size. Left ventricular systolic function is normal. The left ventricular ejection fraction is 60 %. Moderate concentric left ventricular hypertrophy. Stage 1 diastolic dysfunction. Contrast injection was performed. Ordering Physician: Main Joyce Referring Physician: Main Joyce MD Performed By: Sanjuana Tavarez RDCS 01/01/241736 Date Main Joyce MD CC: Dr. Main Joyce MD; Dr. Gagandeep Barclay DO Date Dictated: 01/01/24 1357 Date Transcribed: 01/01/241736 Appeals Manager: Signed Normal [facility] Cardiology Visit Reporton Cardiology Visit Report [facility] [address] [place] [address]. [address] [place] [address] OFFICE VISIT Date of Service: 12/19/23 MR#: [id number] Acct: [id number] Name: ARELI RUELAS Jr. Rep #: [id number] : 1960 Provider: Dr. Main Joyce MD Age/Sex: 63/M [place] [facility] Status: Signed HPI HPI History of Present Illness Details: This is a pleasant 63 year-old gentleman who presents for a cardiovascular follow-up visit. He established with us following a hospital stay in August 2018 while during back surgery he developed respiratory arrest. He does have a history of hypertension, bradycardia, atrial fibrillation, slow ventricular response. Medications were adjusted during that hospitalization. In September 2018 he was hospitalized for acute on chronic diastolic heart failure. He was given IV diuretics. His symptoms did improve. In February 2019 he was admitted for chest pain. He was found to have a STEMI he urgently underwent a heart catheterization in which she was noted to have an occluded right coronary which this was stented. Because of his atrial fibrillation he has been on triple therapy with aspirin, Plavix, and warfarin. From a cardiac standpoint, the patient is doing well. He uses a cane to help with ambulation. He denies any palpitations, chest pain, pressure or heaviness. He denies SOB, Orthopnea, and PND. He does not have bleeding issues; no blood in urine, stool or nosebleeds. He denies any decrease in energy level, myalgias, or claudication. He does not have edema, or sudden weight gain. He denies dizziness, lightheadedness, syncopal or near syncopal episodes, and headaches. 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 Accompanied by: Self Is patient in pain?: No Allergies Penicillins Allergy (Verified 12/19/23 13:28) Hives pregabalin (From Lyrica) Allergy (Verified 12/19/23 13:28) Hives red dye Allergy (Verified 12/19/23 13:28) Angioedema Medications ???Medication ???Instructions ???Recorded ???Confirmed ???Type fluticasone propionate 50 1 spray NASAL DAILY PRN PRN 09/27/18 12/19/23 History mcg/actuation nasal Allergies spray,suspension furosemide 40 mg tablet 40 mg PO BID #60 tabs 09/28/18 12/19/23 Rx aspirin 81 mg tablet,delayed 81 mg PO DAILY@0800 03/05/19 12/19/23 Rx release atorvastatin 80 mg tablet 80 mg PO QHS #30 tabs 03/05/19 12/19/23 Rx albuterol sulfate 90 mcg/actuation 1 - 2 puff inhalation Q4H PRN PRN 02/19/20 12/19/23 History aerosol inhaler Asthma carvedilol 6.25 mg tablet 6.25 mg PO BID heart 02/19/20 12/19/23 History amlodipine 5 mg tablet 5 mg PO DAILY 12/01/21 12/19/23 History hydralazine 50 mg tablet 50 mg PO BID 12/01/21 12/19/23 History potassium chloride 20 mEq 20 meq PO DAILY 12/01/21 12/19/23 History tablet,extended release(part/cryst) (Klor-Con M) sildenafil (pulm.hypertension) 20 20 mg PO TID PRN HTN 12/01/21 12/19/23 History mg tablet trazodone 50 mg tablet 50 mg PO QHS PRN Sleep 12/01/21 12/19/23 History allopurinol 100 mg tablet 100 mg PO DAILYCM 30 days #30 tabs 12/02/21 12/19/23 Rx lisinopril 40 mg tablet 40 mg PO DAILY blood pressure 12/28/21 12/19/23 History warfarin 4 mg tablet 4 mg PO SUMOWETHSA 12/28/21 12/19/23 History warfarin 4 mg tablet 6 mg PO TUFR 12/28/21 12/19/23 History cephalexin 250 mg capsule 250 mg PO BID 03/24/23 12/19/23 History sotalol 80 mg tablet 80 mg PO BID bp,heart #180 tabs 03/24/23 12/19/23 Rx cholecalciferol (vitamin D3) 50 50 mcg PO DAILY 10/26/23 12/19/23 History mcg (2,000 unit) capsule (Vitamin D3) clonidine HCl 0.1 mg tablet 0.1 mg PO BID 10/26/23 12/19/23 History doxycycline hyclate 100 mg capsule 100 mg PO BID 10/26/23 12/19/23 History fluticasone 250 mcg-salmeterol 50 1 ea inhalation BID 10/26/23 12/19/23 History mcg/dose blistr powdr for inhalation lidocaine 4 % topical cream topical TID PRN PRN pain 10/26/23 12/19/23 History oxycodone-acetaminophen 7.5 mg-325 1 tab PO 4X/DAY PRN 12/19/23 12/19/23 History mg tablet Have you fallen in the past year?: No PFSH Medical History Spinal cord stimulator status Varicose veins of both legs with edema Ulcer of left lower extremity with fat layer exposed History of ST elevation myocardial infarction (STEMI) (03/03/19) Inability to ambulate due to multiple joints Acute gout Wears glasses Ambulates with cane Arthritis History of Walker's palsy Nicotine vapor product user Shortness of breath on exertion History of edema History of steroid the (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 Normal [facility] .GFRon 11-22-2023 GFR Non- 48 ml/min/1.73sqm Normal [facility] ([place]) Comment on above: Result Comment: GFR Population mean for , Non- Americans Ages 20-29 = 116 mL/min/1.73 sq.m. Ages 30-39 = 107 mL/min/1.73 sq.m. Ages 40-49 = 99 mL/min/1.73 sq.m. Ages 50-59 = 93 mL/min/1.73 sq.m. Ages 60-69 = 85 mL/min/1.73 sq.m. Ages 70+ = 75 mL/min/1.73 sq.m. Chronic Kidney Disease: Less than 60 mL/min/1.73 square meters End Stage Renal Disease: Less than 15 mL/min/1.73 square meters Performed By: #### B MP, GFR #### Cynthia [address] [address] GFR 58 ml/min/1.73sqm Normal [facility] ([place]) Comment on above: Result Comment: GFR Population mean for , Non- Americans Ages 20-29 = 116 mL/min/1.73 sq.m. Ages 30-39 = 107 mL/min/1.73 sq.m. Ages 40-49 = 99 mL/min/1.73 sq.m. Ages 50-59 = 93 mL/min/1.73 sq.m. Ages 60-69 = 85 mL/min/1.73 sq.m. Ages 70+ = 75 mL/min/1.73 sq.m. Chronic Kidney Disease: Less than 60 mL/min/1.73 square meters End Stage Renal Disease: Less than 15 mL/min/1.73 square meters Performed By: #### B MP, GFR #### [address] [address] BMPon 11-22-2023 BUN/Creatinine Ratio 14 ratio Normal 7-27 [facility] ([place]) Comment on above: Performed By: #### B MP, GFR #### [address] [address] Calcium [Mass/Vol] 9.0 mg/dL Normal 8.4-10.2 [facility] ([place]) Comment on above: Performed By: #### B MP, GFR #### [address] [address] Chloride [Moles/Vol] 104 mmol/L Normal 98-107 [facility] ([place]) Comment on above: Performed By: #### B MP, GFR #### [address] [address] CO2 [Moles/Vol] 25 mmol/L Normal 23-31 [facility] ([place]) Comment on above: Performed By: #### B MP, GFR #### [address] [address] Creatinine [Mass/Vol] 1.47 mg/dL High 0.70-1.30 [facility] ([place]) Comment on above: Result Comment: Test ing performed on Siemens Dimension EXL analyzer using a modified kinetic Feliz technique. Performed By: #### B MP, GFR #### [address] [address] Electrolyte Balance 10.0 mEq/L Normal 4.0-15.0 [facility] ([place]) Comment on above: Performed By: #### B MP, GFR #### [address] [address] Glucose [Mass/Vol] 90 mg/dL Normal 80-115 [facility] ([place]) Comment on above: Performed By: #### B MP, GFR #### [address] [address] Potassium [Moles/Vol] 4.1 mmol/L Normal 3.5-5.1 [facility] ([place]) Comment on above: Performed By: #### B MP, GFR #### [facility] [address], [place] [address] Sodium [Moles/Vol] 139 mmol/L Normal 136-145 [facility] ([place]) Comment on above: Performed By: #### B MP, GFR #### Cynthia [place] [address], [place] [address] Urea nitrogen [Mass/Vol] 20 mg/dL High 7-18 [facility] ([place]) Comment on above: Performed By: #### B MP, GFR #### [facility] [address], [place] [address] LABORATORYOrdered By: SYSTEM SYSTEM on 11-22-2023 Calcium [Mass/Vol] 9.0 mg/dL Normal 8.4 - 10. 2 mg/dL AO ADM SS Chloride [Moles/Vol] 104 mmol/L Normal 98 - 10 7 mmol/L AO ADM SS CO2 [Moles/Vol] 25 mmol/L Normal 23 - 31 mmol/L AO ADM SS Creatinine [Mass/Vol] 1.47 mg/dL High 0.70 - 1.30 mg/dL AO ADM SS Comment on above: Interpretive Data: T esting performed on Siemens Dimension EXL analyzer using a modified kinetic Feliz technique. Electrolyte Balance 10.0 mEq/L Normal 4.0 - 15 .0 mEq/L AO ADM SS GFR/1.73 sq M.predicted among blacks MDRD (S/P/Bld) [Vol rate/Area] 58 ml/min/1.73sqm Invalid Interpretation Code AO Chemistry S Comment on above: Interpretive Data: GFR Population mean for , Non- Americans Ages 20-29 = 116 mL/min/1.73 sq.m. Ages 30-39 = 107 mL/min/1.73 sq.m. Ages 40-49 = 99 mL/min/1.73 sq.m. Ages 50-59 = 93 mL/min/1.73 sq.m. Ages 60-69 = 85 mL/min/1.73 sq.m. Ages 70+ = 75 mL/min/1.73 sq.m. Chronic Kidney Disease: Less than 60 mL/min/1.73 square meters End Stage Renal Disease: Less than 15 mL/min/1.73 square meters GFR/1.73 sq M.predicted among non-blacks MDRD (S/P/Bld) [Vol rate/Area] 48 ml/min/1.73sqm Invalid Interpretation Code AO Chemistry S Comment on above: Interpretive Data: GFR Population mean for , Non- Americans Ages 20-29 = 116 mL/min/1.73 sq.m. Ages 30-39 = 107 mL/min/1.73 sq.m. Ages 40-49 = 99 mL/min/1.73 sq.m. Ages 50-59 = 93 mL/min/1.73 sq.m. Ages 60-69 = 85 mL/min/1.73 sq.m. Ages 70+ = 75 mL/min/1.73 sq.m. Chronic Kidney Disease: Less than 60 mL/min/1.73 square meters End Stage Renal Disease: Less than 15 mL/min/1.73 square meters Glucose [Mass/Vol] 90 mg/dL Normal 80 - 115 mg/dL AO ADM SS Potassium [Moles/Vol] 4.1 mmol/L Normal 3.5 - 5.1 mmol/L AO ADM SS Sodium [Moles/Vol] 139 mmol/L Normal 136 - 145 mmol/L AO ADM SS Urea nitrogen [Mass/Vol] 20 mg/dL High 7 - 18 mg/dL AO ADM SS Urea nitrogen/Creatinine [Mass ratio] 14 ratio Normal 7 - 27 ratio AO ADM SS Wound Ctr History AND Physic glenda 10-26-2023 Wound Ctr History & Physical [facility] [address] [place] [address] H P Exam - Wound Care 10/26/23 1200 MR#: [id number] Acct: [id number] Name: ARELI RUELAS Jr. Rep #: [id number] : 1960 63 From: Benedict Hoyt MD PCP: Dr. Gagandeep Barclay, DO Status:REG RCR Location: History of Present Illness Date of Service: 10/26/23 Chief Complaint: Left lower extremity ulcer History of Wound: Mr. Ruelas is a 63-year-old who was referred to the wound center by his primary care physician due to nonhealing left lower extremity ulcer. Noted this about 6 weeks ago. No known precipitating factor. He had attempted use of an antibiotic ointment and some other measures at home without any significant improvement. Due to pain/burning, has not been wearing his compression. Sleeps in a recliner due to back surgery and chronic back pain. History of CAD and tobacco use. No known history of diabetes, recent A1c within range per patient. He states that he recently had labs done ordered by his PCP. He feels well otherwise, no chills, fever or change in bowel habit. [facility] Medical History (Updated 10/26/23 @ 12:[address] Benedict Hoyt MD) Varicose veins of both legs with edema Ulcer of left lower extremity with fat layer exposed History of ST elevation myocardial infarction (STEMI) (03/03/19) Inability to ambulate due to multiple joints Acute gout Wears glasses Ambulates with cane Arthritis History of Walker's palsy Nicotine vapor product user Shortness of breath on exertion History of edema History of steroid therapy Atherosclerosis of coronary artery of [place] heart without angina pectoris Diastolic congestive heart failure Cardiac dysrhythmia Paroxysmal atrial fibrillation Diastolic dysfunction with acute on chronic heart failure Paroxysmal atrial flutter Cardiopulmonary arrest (08/20/18) History of deep vein thrombosis (DVT) of lower extremity Nicotine dependence Chronic pain Obstructive sleep apnea COPD (chronic obstructive pulmonary disease) Failed back syndrome of lumbar spine Degeneration of intervertebral disc of lumbosacral region Sacrococcygeal disorders, not elsewhere classified Morbid obesity Sacroiliitis, not elsewhere classified Essential (primary) hypertension Home Medications ???Medication ???Instructions ???Recorded ???Last Taken ???Type fluticasone propionate 50 1 spray NASAL DAILY PRN PRN 09/27/18 1 Week Ago History mcg/actuation nasal Allergies 11/24/21 spray,suspension furosemide 40 mg tablet 40 mg PO BID #60 tabs 09/28/18 12/01/21 Rx aspirin 81 mg tablet,delayed 81 mg PO DAILY@0800 03/05/19 12/18/21 Rx release atorvastatin 80 mg tablet 80 mg PO QHS #30 tabs 03/05/19 12/01/21 Rx albuterol sulfate 90 mcg/actuation 1 - 2 puff inhalation Q4H PRN PRN 02/19/20 1 Week Ago History aerosol inhaler Asthma 11/24/21 carvedilol 6.25 mg tablet 6.25 mg PO BID heart 02/19/20 05/09/22 History amlodipine 5 mg tablet 5 mg PO DAILY 12/01/21 05/09/22 History hydralazine 50 mg tablet 50 mg PO BID 12/01/21 05/09/22 History hydrocodone 7.5 mg-acetaminophen 1 tab PO TID PRN Pain 12/01/21 Unknown History 325 mg tablet potassium chloride 20 mEq 20 meq PO DAILY 12/01/21 12/01/21 History tablet,extended release(part/cryst) (Klor-Con M) sildenafil (pulm.hypertension) 20 20 mg PO TID PRN HTN 12/01/21 Unknown History mg tablet trazodone 50 mg tablet 50 mg PO QHS PRN Sleep 12/01/21 Unknown History allopurinol 100 mg tablet 100 mg PO DAILYCM 30 days #30 tabs 12/02/21 Unknown Rx lisinopril 40 mg tablet 40 mg PO DAILY blood pressure 12/28/21 05/09/22 History warfarin 4 mg tablet 4 mg PO SUMOWETHSA 12/28/21 05/04/22 History warfarin 4 mg tablet 6 mg PO TUFR 12/28/21 05/04/22 History cephalexin 250 mg capsule 250 mg PO BID 03/24/23 Unknown History sotalol 80 mg tablet 80 mg PO BID bp,heart #180 tabs 03/24/23 Unknown Rx cholecalciferol (vitamin D3) 50 50 mcg PO DAILY 10/26/23 Unknown History mcg (2,000 unit) capsule (Vitamin D3) clonidine HCl 0.1 mg tablet 0.1 mg PO BID 10/26/23 Unknown History doxycycline hyclate 100 mg capsule 100 mg PO BID 10/26/23 Unknown History fluticasone 250 mcg-salmeterol 50 1 ea inhalation BID 10/26/23 Unknown History mcg/dose blistr powdr for inhalation lidocaine 4 % topical cream topical TID PRN PRN pain 10/26/23 Unknown History Allergy/AdvReac Type Severity Reaction Status Date / Time Penicillins Allergy Hives Verified 03/24/23 13:31 pregabalin (From Lyrica) Allergy Hives Verified 03/24/23 13:31 red dye Allergy Angioedema Verified 03/24/23 13:31 Family History Mother CVA (cerebral vascular accident) Father , Murdered per patient No problems noted. Surgical History ... Normal [facility] [id number] 10-21-2023 Complement C3A 125.0 mg/dL Normal 90.0-170.0 [facility] ([place]) Comment on above: Result Comment: No te - New Reference Range in effect 19 Performed By: #### C 3C4A #### [address] [address] Complement C4A 41.0 mg/dL High 16.0-38.0 [facility] ([place]) Comment on above: Performed By: #### C 3C4A #### [address] [address] LABORATORYOrdered By: Silvia Cardona on 10-21-2023 Creatinine (U) [Mass/Vol] 21.6 mg/dL Low 39.0 - 259.0 mg/dL AO ADM SS Protein (U) [Mass/Vol] mg/dL Normal 0 - 11 mg/dL AO ADM SS U Ratio Prot/Creat Unable to Calculate Invalid Interpretation Code AO ADM SS Comment on above: Result Comment: Unab le to calculate this test result accurately. Results used to calculate this test are outside the reportable range. LABORATORYOrdered By: SYSTEM SYSTEM on 10-21-2023 Complement C3 [Mass/Vol] 125.0 mg/dL Normal 90.0 - 170.0 mg/dL AH ADM SS Comment on above: Interpretive Data: * *Note - New Reference Range in effect 19 Complement C4 [Mass/Vol] 41.0 mg/dL High 16.0 - 38.0 mg/dL AH ADM SS RPCURon 10-21-2023 U Creatinine 21.6 mg/dL Low 39.0-259.0 [facility] ([place]) Comment on above: Performed By: #### R PCUR #### Cynthia [address] [address] U Protein <6 Normal 0-11 [facility] ([place]) Comment on above: Performed By: #### R PCUR #### [address] [address] U Ratio Prot/Creat Unable to Calculate Normal [facility] ([place]) Comment on above: Result Comment: Unab le to calculate this test result accurately. Results used to calculate this test are outside the reportable range. Performed By: #### R PCUR #### [address] [address] .GFRon 10-20-2023 GFR 55 ml/min/1.73sqm Normal [facility] ([place]) Comment on above: Result Comment: GFR Population mean for , Non- Americans Ages 20-29 = 116 mL/min/1.73 sq.m. Ages 30-39 = 107 mL/min/1.73 sq.m. Ages 40-49 = 99 mL/min/1.73 sq.m. Ages 50-59 = 93 mL/min/1.73 sq.m. Ages 60-69 = 85 mL/min/1.73 sq.m. Ages 70+ = 75 mL/min/1.73 sq.m. Chronic Kidney Disease: Less than 60 mL/min/1.73 square meters End Stage Renal Disease: Less than 15 mL/min/1.73 square meters Performed By: #### P RO, BMP, GFR #### [address] [address] GFR Non- 45 ml/min/1.73sqm Normal [facility] ([place]) Comment on above: Result Comment: GFR Population mean for , Non- Americans Ages 20-29 = 116 mL/min/1.73 sq.m. Ages 30-39 = 107 mL/min/1.73 sq.m. Ages 40-49 = 99 mL/min/1.73 sq.m. Ages 50-59 = 93 mL/min/1.73 sq.m. Ages 60-69 = 85 mL/min/1.73 sq.m. Ages 70+ = 75 mL/min/1.73 sq.m. Chronic Kidney Disease: Less than 60 mL/min/1.73 square meters End Stage Renal Disease: Less than 15 mL/min/1.73 square meters Performed By: #### P RO, BMP, GFR #### [address] [address] BMPon 10-20-2023 BUN/Creatinine Ratio 15 ratio Normal 7-27 [facility] ([place]) Comment on above: Performed By: #### P RO, BMP, GFR #### [address] [address] Calcium [Mass/Vol] 9.4 mg/dL Normal 8.4-10.2 [facility] ([place]) Comment on above: Performed By: #### P RO, BMP, GFR #### [address] [address] Chloride [Moles/Vol] 105 mmol/L Normal 98-107 [facility] ([place]) Comment on above: Performed By: #### P RO, BMP, GFR #### [address] [address] CO2 [Moles/Vol] 29 mmol/L Normal 23-31 [facility] ([place]) Comment on above: Performed By: #### P RO, BMP, GFR #### [address] [address] Creatinine [Mass/Vol] 1.56 mg/dL High 0.70-1.30 [facility] ([place]) Comment on above: Performed By: #### P RO, BMP, GFR #### [address] [address] Electrolyte Balance 6.0 mEq/L Normal 4.0-15.0 [facility] ([place]) Comment on above: Performed By: #### P RO, BMP, GFR #### [address] [address] Glucose [Mass/Vol] 90 mg/dL Normal 80-115 [facility] ([place]) Comment on above: Performed By: #### P RO, BMP, GFR #### [address] [address] Potassium [Moles/Vol] 5.1 mmol/L Normal 3.5-5.1 [facility] ([place]) Comment on above: Performed By: #### P RO, BMP, GFR #### [place] [address] [place], [place] [address] Sodium [Moles/Vol] 140 mmol/L Normal 136-145 [facility] ([place]) Comment on above: Performed By: #### P RO, BMP, GFR #### [place] [address] [place], [place] [address] Urea nitrogen [Mass/Vol] 24 mg/dL High 7-18 [facility] ([place]) Comment on above: Performed By: #### P RO, BMP, GFR #### [place] [address] [place], [place] [address] DIMERon 10-20-2023 D-Dimer <200 Normal 0-230 [facility] ([place]) Comment on above: Result Comment: DDN: Results reported in D-DU ng/mL. Negative for D-dimer. DVT/PE is highly unlikely. Note: False negative results may be seen in patients on anticoagulant therapy. The result of the D-Dimer test should be evaluated in the context of all the clinical and laboratory data available. In those instances where the laboratory result does not agree with the clinical evaluation, additional tests should be performed accordingly. If the D-Dimer result is used to exclude DVT or PE, the recommended cutoff value is less than 230 ng/mL. The D-Dimer result should not be used alone to rule in DVT/PE, but should be used in conjunction with a clinical pretest probability (PTP)assessment model to exclude venous thromboembolism (VTE) in outpatients suspected of deep venous thrombosis (DVT) and pulmonary embolism (PE). Performed By: #### U A #### [address] [address] LABORATORYOrdered By: SYSTEM SYSTEM on 10-20-2023 Calcium [Mass/Vol] 9.4 mg/dL Normal 8.4 - 10. 2 mg/dL AO ADM SS Chloride [Moles/Vol] 105 mmol/L Normal 98 - 10 7 mmol/L AO ADM SS CO2 [Moles/Vol] 29 mmol/L Normal 23 - 31 mmol/L AO ADM SS Creatinine [Mass/Vol] 1.56 mg/dL High 0.70 - 1.30 mg/dL AO ADM SS Electrolyte Balance 6.0 mEq/L Normal 4.0 - 15 .0 mEq/L AO ADM SS GFR/1.73 sq M.predicted among blacks MDRD (S/P/Bld) [Vol rate/Area] 55 ml/min/1.73sqm Invalid Interpretation Code AO Chemistry S Comment on above: Interpretive Data: GFR Population mean for , Non- Americans Ages 20-29 = 116 mL/min/1.73 sq.m. Ages 30-39 = 107 mL/min/1.73 sq.m. Ages 40-49 = 99 mL/min/1.73 sq.m. Ages 50-59 = 93 mL/min/1.73 sq.m. Ages 60-69 = 85 mL/min/1.73 sq.m. Ages 70+ = 75 mL/min/1.73 sq.m. Chronic Kidney Disease: Less than 60 mL/min/1.73 square meters End Stage Renal Disease: Less than 15 mL/min/1.73 square meters GFR/1.73 sq M.predicted among non-blacks MDRD (S/P/Bld) [Vol rate/Area] 45 ml/min/1.73sqm Invalid Interpretation Code AO Chemistry S Comment on above: Interpretive Data: GFR Population mean for , Non- Americans Ages 20-29 = 116 mL/min/1.73 sq.m. Ages 30-39 = 107 mL/min/1.73 sq.m. Ages 40-49 = 99 mL/min/1.73 sq.m. Ages 50-59 = 93 mL/min/1.73 sq.m. Ages 60-69 = 85 mL/min/1.73 sq.m. Ages 70+ = 75 mL/min/1.73 sq.m. Chronic Kidney Disease: Less than 60 mL/min/1.73 square meters End Stage Renal Disease: Less than 15 mL/min/1.73 square meters Glucose [Mass/Vol] 90 mg/dL Normal 80 - 115 mg/dL AO ADM SS Potassium [Moles/Vol] 5.1 mmol/L Normal 3.5 - 5.1 mmol/L AO ADM SS Sodium [Moles/Vol] 140 mmol/L Normal 136 - 145 mmol/L AO ADM SS Urea nitrogen [Mass/Vol] 24 mg/dL High 7 - 18 mg/dL AO ADM SS Urea nitrogen/Creatinine [Mass ratio] 15 ratio Normal 7 - 27 ratio AO ADM SS Uric Acid Lvl 7.2 mg/dL Normal 3.5 - 7.2 mg/dL AO ADM SS LABORATORYOrdered By: Jeremiah hawkins on 10-20-2023 Fibrin D-dimer DDU (PPP) [Mass/Vol] ng/mL D-DU Normal 0 - 230 ng/mL D-DU AO [facility] SS Comment on above: Result Comment: DDN: Results reported in D-DU ng/mL. Negative for D-dimer. DVT/PE is highly unlikely. Note: False negative results may be seen in patients on anticoagulant therapy. Interpretive Data: T he result of the D-Dimer test should be evaluated in the context of all the clinical and laboratory data available. In those instances where the laboratory result does not agree with the clinical evaluation, additional tests should be performed accordingly. If the D-Dimer result is used to exclude DVT or PE, the recommended cutoff value is less than 230 ng/mL. The D-Dimer result should not be used alone to rule in DVT/PE, but should be used in conjunction with a clinical pretest probability (PTP)assessment model to exclude venous thromboembolism (VTE) in outpatients suspected of deep venous thrombosis (DVT) and pulmonary embolism (PE). URICon 10-20-2023 Uric Acid Lvl 7.2 mg/dL Normal 3.5-7.2 [facility] ([place]) Comment on above: Performed By: #### P RO, BMP, GFR #### [address] [address] .Auto Diffon 09-19-2023 Basophil, Absolute 0.1 10 3/mcL Normal 0.0-0.2 [facility] ([place]) Comment on above: Performed By: #### U A #### [address] [address] Basophils/100 WBC (Bld) 1.1 % Normal 0.0-2.5 [facility] ([place]) Comment on above: Performed By: #### U A #### [address] [address] Eosinophil, Absolute 0.2 10 3/mcL Normal 0.0-0.4 [facility] ([place]) Comment on above: Performed By: #### U A #### [address] [address] Eosinophils/100 WBC (Bld) 3.7 % Normal 0.0-7.0 [facility] ([place]) Comment on above: Performed By: #### U A #### [address] [address] Lymphocyte, Absolute 1.6 10 3/mcL Normal 0.8-3.9 [facility] ([place]) Comment on above: Performed By: #### U A #### [address] [address] Lymphocytes/100 WBC (Bld) 26.4 % Normal 10.0-50.0 [facility] ([place]) Comment on above: Performed By: #### U A #### [address] [address] Monocyte, Absolute 0.5 10 3/mcL Normal 0.2-1.0 [facility] ([place]) Comment on above: Performed By: #### U A #### [address] [address] Monocytes/100 WBC (Bld) 8.1 % Normal 1.7-13.0 [facility] ([place]) Comment on above: Performed By: #### U A #### [address] [address] Neutrophils/100 WBC (Bld) 60.7 % Normal 37.0-80.0 [facility] ([place]) Comment on above: Performed By: #### U A #### [address] [address] .GFRon 09-19-2023 GFR 60 ml/min/1.73sqm Normal [facility] ([place]) Comment on above: Result Comment: GFR Population mean for , Non- Americans Ages 20-29 = 116 mL/min/1.73 sq.m. Ages 30-39 = 107 mL/min/1.73 sq.m. Ages 40-49 = 99 mL/min/1.73 sq.m. Ages 50-59 = 93 mL/min/1.73 sq.m. Ages 60-69 = 85 mL/min/1.73 sq.m. Ages 70+ = 75 mL/min/1.73 sq.m. Chronic Kidney Disease: Less than 60 mL/min/1.73 square meters End Stage Renal Disease: Less than 15 mL/min/1.73 square meters Performed By: #### U A #### [address] [address] GFR Non- 50 ml/min/1.73sqm Normal [facility] ([place]) Comment on above: Result Comment: GFR Population mean for , Non- Americans Ages 20-29 = 116 mL/min/1.73 sq.m. Ages 30-39 = 107 mL/min/1.73 sq.m. Ages 40-49 = 99 mL/min/1.73 sq.m. Ages 50-59 = 93 mL/min/1.73 sq.m. Ages 60-69 = 85 mL/min/1.73 sq.m. Ages 70+ = 75 mL/min/1.73 sq.m. Chronic Kidney Disease: Less than 60 mL/min/1.73 square meters End Stage Renal Disease: Less than 15 mL/min/1.73 square meters Performed By: #### U A #### [address] [address] .NEUABSon 09-19-2023 Neutrophil, Absolute 3.7 10 3/mcL Normal 2.9-6.2 [facility] ([place]) Comment on above: Performed By: #### U A #### [address] [address] A1Con 09-19-2023 HbA1c (Bld) [Mass fraction] 5.5 % Normal 4.3-6.4 [facility] ([place]) Comment on above: Performed By: #### U A #### [address] [address] CBCon 09-19-2023 Erythrocyte distribution width (RBC) [Ratio] 16.4 % High 11.5-14.5 [facility] ([place]) Comment on above: Performed By: #### U A #### [address] [address] Hematocrit (Bld) [Volume fraction] 45.3 % Normal 42.0-52.0 [facility] ([place]) Comment on above: Performed By: #### U A #### [place] [address] Hgb 14.7 G/dL Normal 14.0-18.0 [facility] ([place]) Comment on above: Performed By: #### U A #### [place] [address] MCH (RBC) [Entitic mass] 28.5 pg Normal 27.0-31.2 [facility] ([place]) Comment on above: Performed By: #### U A #### [place] [address] MCHC 32.5 G/dL Normal 31.8-35.4 [facility] ([place]) Comment on above: Performed By: #### U A #### [place] [address] MCV (RBC) [Entitic vol] 87.5 fL Normal 80.0-94.0 [facility] ([place]) Comment on above: Performed By: #### U A #### [place] [address] Platelet 171 10 3/mcL Normal 130-400 [facility] ([place]) Comment on above: Performed By: #### U A #### [place] [address] Platelet mean volume (Bld) [Entitic vol] 9.7 fL Normal 7.4-10.4 [facility] ([place]) Comment on above: Performed By: #### U A #### [place] [id number] RBC 5.18 10 6/mcL Normal 4.04-6.13 [facility] ([place]) Comment on above: Performed By: #### U A #### [place] [id number] WBC 6.0 10 3/mcL Normal 4.6-10.8 [facility] ([place]) Comment on above: Performed By: #### U A #### [address] [address] CMPon 09-19-2023 Albumin Level 3.3 G/dL Low 3.4-4.8 [facility] ([place]) Comment on above: Performed By: #### U A #### [address] [address] Albumin/Globulin [Mass ratio] 1.1 {ratio} Normal 1.1-2.5 [facility] ([place]) Comment on above: Performed By: #### U A #### [address] [address] ALP [Catalytic activity/Vol] 73 U/L Normal 40-135 [facility] ([place]) Comment on above: Performed By: #### U A #### [place] [id number] ALT [Catalytic activity/Vol] 14 U/L Low 16-63 [facility] ([place]) Comment on above: Performed By: #### U A #### [address] [address] AST [Catalytic activity/Vol] 16 U/L Normal 10-40 [facility] ([place]) Comment on above: Performed By: #### U A #### [place] [id number] Bili Total 0.6 mg/dL Normal 0.2-1.0 [facility] ([place]) Comment on above: Result Comment: Use of this assay is not recommended for patients undergoing treatment with eltrombopag due to the potential for falsely elevated results. Performed By: #### U A #### [address] [address] BUN/Creatinine Ratio 12 ratio Normal 7-27 [facility] ([place]) Comment on above: Performed By: #### U A #### [address] [address] Calcium [Mass/Vol] 9.1 mg/dL Normal 8.4-10.2 [facility] ([place]) Comment on above: Performed By: #### U A #### [address] [address] Chloride [Moles/Vol] 103 mmol/L Normal 98-107 [facility] ([place]) Comment on above: Performed By: #### U A #### [address] [address] CO2 [Moles/Vol] 30 mmol/L Normal 23-31 [facility] ([place]) Comment on above: Performed By: #### U A #### [address] [address] Creatinine [Mass/Vol] 1.43 mg/dL High 0.70-1.30 [facility] ([place]) Comment on above: Performed By: #### U A #### [address] [address] Electrolyte Balance 8.0 mEq/L Normal 4.0-15.0 [facility] ([place]) Comment on above: Performed By: #### U A #### [address] [address] Globulin 3.0 G/dL Normal [facility] ([place]) Comment on above: Performed By: #### U A #### [address] [address] Glucose [Mass/Vol] 91 mg/dL Normal 80-115 [facility] ([place]) Comment on above: Performed By: #### U A #### [address] [address] Potassium [Moles/Vol] 4.6 mmol/L Normal 3.5-5.1 [facility] ([place]) Comment on above: Performed By: #### U A #### [address] [address] Sodium [Moles/Vol] 141 mmol/L Normal 136-145 [facility] ([place]) Comment on above: Performed By: #### U A #### [address] [address] Total Protein 6.3 G/dL Low 6.4-8.2 [facility] ([place]) Comment on above: Performed By: #### U A #### [facility] [address] [place] [address] Urea nitrogen [Mass/Vol] 17 mg/dL Normal 7-18 [facility] ([place]) Comment on above: Performed By: #### U A #### [facility] [address] [place] [address] LABORATORYOrdered By: SYSTEM SYSTEM on 09-19-2023 Albumin BCP dye [Mass/Vol] 3.3 G/dL Low 3.4 - 4.8 G/dL AO ADM SS Albumin/Globulin [Mass ratio] 1.1 {ratio} Normal 1.1 - 2.5 ratio AO ADM SS ALP [Catalytic activity/Vol] 73 U/L Normal 40 - 135 U/L AO ADM SS ALT With P-5'-P [Catalytic activity/Vol] 14 U/L Low 16 - 63 U/L AO ADM SS AST With P-5'-P [Catalytic activity/Vol] 16 U/L Normal 10 - 40 U/L AO ADM SS Basophil, Absolute 0.1 103/mcL Normal 0.0 - 0.2 10^3/mcL AO Workflow SS Basophils/100 WBC (Bld) 1.1 % Normal 0.0 - 2.5 % AO Workflow SS Bilirubin [Mass/Vol] 0.6 mg/dL Normal 0.2 - 1 .0 mg/dL AO ADM SS Comment on above: Interpretive Data: U se of this assay is not recommended for patients undergoing treatment with eltrombopag due to the potential for falsely elevated results. Calcium [Mass/Vol] 9.1 mg/dL Normal 8.4 - 10. 2 mg/dL AO ADM SS Chloride [Moles/Vol] 103 mmol/L Normal 98 - 10 7 mmol/L AO ADM SS CO2 [Moles/Vol] 30 mmol/L Normal 23 - 31 mmol/L AO ADM SS Creatinine [Mass/Vol] 1.43 mg/dL High 0.70 - 1.30 mg/dL AO ADM SS Electrolyte Balance 8.0 mEq/L Normal 4.0 - 15 .0 mEq/L AO ADM SS Eosinophil, Absolute 0.2 103/mcL Normal 0.0 - 0 .4 10^3/mcL AO Workflow SS Eosinophils/100 WBC (Bld) 3.7 % Normal 0.0 - 7.0 % AO Workflow SS Erythrocyte distribution width (RBC) [Ratio] 16.4 % High 11.5 - 14.5 % AO Workflow SS GFR/1.73 sq M.predicted among blacks MDRD (S/P/Bld) [Vol rate/Area] 60 ml/min/1.73sqm Invalid Interpretation Code AO Chemistry S Comment on above: Interpretive Data: GFR Population mean for , Non- Americans Ages 20-29 = 116 mL/min/1.73 sq.m. Ages 30-39 = 107 mL/min/1.73 sq.m. Ages 40-49 = 99 mL/min/1.73 sq.m. Ages 50-59 = 93 mL/min/1.73 sq.m. Ages 60-69 = 85 mL/min/1.73 sq.m. Ages 70+ = 75 mL/min/1.73 sq.m. Chronic Kidney Disease: Less than 60 mL/min/1.73 square meters End Stage Renal Disease: Less than 15 mL/min/1.73 square meters GFR/1.73 sq M.predicted among non-blacks MDRD (S/P/Bld) [Vol rate/Area] 50 ml/min/1.73sqm Invalid Interpretation Code AO Chemistry S Comment on above: Interpretive Data: GFR Population mean for , Non- Americans Ages 20-29 = 116 mL/min/1.73 sq.m. Ages 30-39 = 107 mL/min/1.73 sq.m. Ages 40-49 = 99 mL/min/1.73 sq.m. Ages 50-59 = 93 mL/min/1.73 sq.m. Ages 60-69 = 85 mL/min/1.73 sq.m. Ages 70+ = 75 mL/min/1.73 sq.m. Chronic Kidney Disease: Less than 60 mL/min/1.73 square meters End Stage Renal Disease: Less than 15 mL/min/1.73 square meters Globulin 3.0 G/dL Invalid Interpretation Code AO ADM SS Glucose [Mass/Vol] 91 mg/dL Normal 80 - 115 mg/dL AO ADM SS HbA1c (Bld) [Mass fraction] 5.5 % Normal 4.3 - 6.4 % AO ADM SS Hematocrit (Bld) [Volume fraction] 45.3 % Normal 42.0 - 52.0 % AO Workflow SS Hemoglobin (Bld) [Mass/Vol] 14.7 G/dL Normal 14.0 - 18.0 G/dL AO Workflow SS Lymphocyte, Absolute 1.6 103/mcL Normal 0.8 - 3 .9 10^3/mcL AO Workflow SS Lymphocytes/100 WBC (Bld) 26.4 % Normal 10.0 - 50.0 % AO Workflow SS MCH (RBC) [Entitic mass] 28.5 pg Normal 27.0 - 31.2 pg AO Workflow SS MCHC 32.5 G/dL Normal 31.8 - 35.4 G/dL AO Workflow SS MCV (RBC) [Entitic vol] 87.5 fL Normal 80.0 - 94.0 fL AO Workflow SS Monocyte, Absolute 0.5 103/mcL Normal 0.2 - 1.0 10^3/mcL AO Workflow SS Monocytes/100 WBC (Bld) 8.1 % Normal 1.7 - 13.0 % AO Workflow SS Neutrophil, Absolute 3.7 103/mcL Normal 2.9 - 6 .2 10^3/mcL AO Workflow SS Neutrophils/100 WBC (Bld) 60.7 % Normal 37.0 - 80.0 % AO Workflow SS Platelet mean volume (Bld) [Entitic vol] 9.7 fL Normal 7.4 - 10.4 fL AO Workflow SS Platelets (Bld) [#/Vol] 171 103/mcL Normal 130 - 400 10^3/mcL AO Workflow SS Potassium [Moles/Vol] 4.6 mmol/L Normal 3.5 - 5.1 mmol/L AO ADM SS Protein [Mass/Vol] 6.3 G/dL Low 6.4 - 8.2 G/dL AO ADM SS RBC (Bld) [#/Vol] 5.18 106/mcL Normal 4.04 - 6.1 3 10^6/mcL AO Workflow SS Sodium [Moles/Vol] 141 mmol/L Normal 136 - 145 mmol/L AO ADM SS Urea nitrogen [Mass/Vol] 17 mg/dL Normal 7 - 18 mg/dL AO ADM SS Urea nitrogen/Creatinine [Mass ratio] 12 ratio Normal 7 - 27 ratio AO ADM SS Uric Acid Lvl 9.0 mg/dL High 3.5 - 7.2 mg/dL AO ADM SS WBC (Bld) [#/Vol] 6.0 103/mcL Normal 4.6 - 10.8 10^3/mcL AO Workflow SS URICon 09-19-2023 Uric Acid Lvl 9.0 mg/dL High 3.5-7.2 [facility] ([place]) Comment on above: Performed By: #### U A #### [place] [id number] [place] [address] XR FLUORO 1-2 HRS TECH TIMEo n 03-29-2023 XR FLUORO 1-2 HRS TECH TIME ORIGINAL EXAMINATION: FLUORO MD - > 1 HR03/28/2023 10:22 am FLUORO (time): 3 minutes, 18.5 seconds AIR KERMA DOSE: 270.49 mGy HISTORY: ORDERING SYSTEM PROVIDED HISTORY: Reason for Exam: PAIN IMPRESSION: Documentation of fluoroscopy. Please see intraoperative notes for additional details. I have personally reviewed the images of this examination, and agree with the resident's findings and interpretation. Interpreted by: Trell Means MD Preliminary Report By: Mesfin Tran Electronically signed By Trell Means MD Dictated Date: 03/29/2023 1:36:49 AM Prelim Date: 03/29/2023 1:39:03 AM Sign Date: 03/29/2023 1:43:34 AM Ordering Provider: ANTHONY Rodríguez [facility]) APTTon 03-28-2023 aPTT Coag (Bld) [Time] 30.8 s Normal 25.0-35.0 [facility]) Comment on above: Result Comment: For Heparin anticoagulation therapy, the recommended therapeutic range is: 54-77 seconds (APTT Correlation with Anti-Xa therapeutic range of 0.3-0.7 units/ml). PLEASE REFERENCE THE PHARMACY PROTOCOL FOR DOSING. Performed By: #### P RO, BMP, GFR #### [address] [address] Heparin dose (APTT) Unknown Normal [facility] ([place]) Comment on above: Performed By: #### P RO, BMP, GFR #### [place] [address] [place], [place] [address] FIBon 03-28-2023 Fibrinogen 487 mg/dL Normal 250-560 [facility]) Comment on above: Performed By: #### P RO, BMP, GFR #### [place] [id number] [place], [place] [address] LABORATORYOrdered By: Raudel Velez on 03-28-2023 aPTT Coag (Bld) [Time] 30.8 s Normal 25.0 - 35.0 [facility] Comment on above: Interpretive Data: F or Heparin anticoagulation therapy, the recommended therapeutic range is: 54-77 seconds (APTT Correlation with Anti-Xa therapeutic range of 0.3-0.7 units/ml). PLEASE REFERENCE THE PHARMACY PROTOCOL FOR DOSING. Fibrinogen 487 mg/dL Normal 250 - 560 mg/dL HemDCub Heparin dose (APTT) Unknown (03/28/23 6:35 AM) Normal Coagulation S PT Coag (PPP) [Time] 13.2 s Normal 9.0 - 1 4.2 seconds HemDCub Comment on above: Interpretive Data: E ffective 10/02/07, Protime results may be affected by some antibiotics (i.e. Ciprofloxacin, Azithromycin, Bactrim) which may potentiate the action of oral anticoagulants, with further increases in Protime/INR. PT International Ratio 1.2 ratio Invalid Interpretation Code [facility] Comment on above: Interpretive Data: T viraj [employer] [place] [employer] (CHEST, 1991, 102:312S-25S) recommended therapeutic range for oral anticoagulant therapy is: LOW RISK: Prophylaxis of venous thrombosis INR: 2.0-3.0 Treatment of pulmonary embolism 2.0-3.0 Prevention of systemic embolism 2.0-3.0 HIGH RISK: Mechanical prosthetic valves 2.5-3.5 LABORATORYOrdered By: SYSTEM SYSTEM on 03-28-2023 Platelets (Bld) [#/Vol] 143 103/mcL Low 150 - 450 10^3/mcL Workflow SS PLTon 03-28-2023 Platelet 143 10 3/mcL Low 150-450 [facility] ([place]) Comment on above: Performed By: #### FILIPE BETTS, GFR #### [place] [id number] [place], [place] [address] PROon 03-28-2023 INR Coag (PPP) [Relative time] 1.2 {INR} Normal [facility] ([place]) Comment on above: Result Comment: [employer] [place] [employer] (CHEST, 1992, 102:312S-25S) recommended therapeutic range for oral anticoagulant therapy is: LOW RISK: Prophylaxis of venous thrombosis INR: 2.0-3.0 Treatment of pulmonary embolism 2.0-3.0 Prevention of systemic embolism 2.0-3.0 HIGH RISK: Mechanical prosthetic valves 2.5-3.5 Performed By: #### P RO, BMP, GFR #### [facility] [address] [place], [place] [address] PT Coag (PPP) [Time] 13.2 s Normal 9.0-14.2 [facility] ([place]) Comment on above: Result Comment: Effe ctive 10/02/07, Protime results may be affected by some antibiotics (i.e. Ciprofloxacin, Azithromycin, Bactrim) which may potentiate the action of oral anticoagulants, with further increases in Protime/INR. Performed By: #### P RO, BMP, GFR #### [facility] [address] [place], [place] [address] Cardiology Visit Reporton Cardiology Visit Report [facility] [address] [place], [place] [address] OFFICE VISIT Date of Service: 03/24/23 MR#: [id number] Acct: [id number] Name: ARELI RUELAS JrMaria Esther Rep #: [id number] : 1960 Provider: LILLIE long Age/Sex: 62/M Location: [facility] Status: Signed [facility] History of Present Illness Details: This is a pleasant 62 year-old gentleman who presents for a cardiovascular follow-up visit. He established with us following a hospital stay in August 2018 while during back surgery he developed respiratory arrest. He does have a history of hypertension, bradycardia, atrial fibrillation, slow ventricular response. Medications were adjusted during that hospitalization. In September 2018 he was hospitalized for acute on chronic diastolic heart failure. He was given IV diuretics. His symptoms did improve. In February 2019 he was admitted for chest pain. He was found to have a STEMI he urgently underwent a heart catheterization in which she was noted to have an occluded right coronary which this was stented. Because of his atrial fibrillation he has been on triple therapy with aspirin, Plavix, and warfarin. From a cardiac standpoint, the patient is doing well. He uses a cane to help with ambulation. He denies any palpitations, chest pain, pressure or heaviness. He denies SOB, Orthopnea, and PND. He does not have bleeding issues; no blood in urine, stool or nosebleeds. He denies any decrease in energy level, myalgias, or claudication. He does not have edema, or sudden weight gain. He denies dizziness, lightheadedness, syncopal or near syncopal episodes, and headaches. 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 Is patient in pain?: No Allergies Penicillins Allergy (Verified 03/24/23 13:31) Hives pregabalin [From Lyrica] Allergy (Verified 03/24/23 13:31) Hives red dye Allergy (Verified 03/24/23 13:31) Angioedema Medications fluticasone propionate 50 mcg/actuation nasal spray,suspension 1 spray NASAL DAILY PRN PRN Allergies 09/27/18 [History Confirmed 03/24/23] furosemide 40 mg tablet 40 mg PO BID #60 tabs 09/28/18 [Rx Confirmed 03/24/23] aspirin 81 mg tablet,delayed release 81 mg PO DAILY@0800 03/05/19 [Rx Confirmed 03/24/23] atorvastatin 80 mg tablet 80 mg PO QHS #30 tabs 03/05/19 [Rx Confirmed 03/24/23] albuterol sulfate 90 mcg/actuation aerosol inhaler 1 - 2 puff inhalation Q4H PRN PRN Asthma 02/19/20 [History Confirmed 03/24/23] carvedilol 6.25 mg tablet 6.25 mg PO BID heart 02/19/20 [History Confirmed 03/24/23] amlodipine 5 mg tablet 5 mg PO DAILY 12/01/21 [History Confirmed 03/24/23] hydralazine 50 mg tablet 50 mg PO BID 12/01/21 [History Confirmed 03/24/23] hydrocodone 7.5 mg-acetaminophen 325 mg tablet 1 tab PO TID PRN Pain 12/01/21 [History Confirmed 03/24/23] potassium chloride 20 mEq tablet,extended release(part/cryst) (Klor-Con M) 20 meq PO DAILY 12/01/21 [History Confirmed 03/24/23] sildenafil (pulm.hypertension) 20 mg tablet 20 mg PO TID PRN HTN 12/01/21 [History Confirmed 12/28/21] trazodone 50 mg tablet 50 mg PO QHS PRN Sleep 12/01/21 [History Confirmed 03/24/23] allopurinol 100 mg tablet 100 mg PO DAILYCM 30 days #30 tabs 12/02/21 [Rx Confirmed 03/24/23] lisinopril 40 mg tablet 40 mg PO DAILY blood pressure 12/28/21 [History Confirmed 03/24/23] warfarin 4 mg tablet 4 mg PO SUMOWETHSA 12/28/21 [History Confirmed 03/24/23] warfarin 4 mg tablet 6 mg PO TUFR 12/28/21 [History Confirmed 03/24/23] cephalexin 250 mg capsule 250 mg PO BID 03/24/23 [History Confirmed 03/24/23] sotalol 80 mg tablet 80 mg PO BID bp,heart #180 tabs 03/24/23 [Rx Confirmed 03/24/23] [facility] Medical History (Reviewed 03/24/23 @ 13:37 by Lien Cortes DIECAST MACHINE OPERATOR, DIECAST MACHINE OPERATOR-C) Acute gout Ambulates with cane Arthritis Atherosclerosis of coronary artery of [place] heart without angina pectoris Cardiac dysrhythmia Cardiopulmonary arrest (08/20/18) Chronic pain COPD (chronic obstructive pulmonary disease) Degeneration of intervertebral disc of lumbosacral region Diastolic congestive heart failure Diastolic dysfunction with acute on chronic heart failure Essential (primary) hypertension 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 Normal [facility] XR CHEST 2 VIEWSon 3 XR CHEST 2 VIEWS ORIGINAL EXAMINATION: TWO XRAY VIEWS OF THE CHEST 03/15/2023 1:34 pm COMPARISON: Chest x-ray on 12/11/2015 HISTORY: ORDERING SYSTEM PROVIDED HISTORY: Reason for Exam: Cough, COPD FINDINGS: The heart size is normal. There is no lung infiltrate or edema. No pneumothorax or pleural fluid is present. There are mild findings of degenerative disc disease throughout the thoracic spine without subluxation or fracture. No acute skeletal abnormality is present. IMPRESSION: No acute cardiopulmonary process. Interpreted by: Trell Means MD Preliminary Report By: Trell Means MD Electronically signed By Trell Means MD Dictated Date: 03/17/2023 8:42:36 AM Prelim Date: 03/17/2023 8:43:37 AM Sign Date: 03/17/2023 8:43:37 AM Ordering Provider: ANTHONY FERNÁNDEZ Normal [facility] ([place]) [facility] 03-15-2023 Color (U) Yellow Normal [facility] ([place]) Comment on above: Performed By: #### U A #### [address] [address] Glucose (U) [Mass/Vol] Negative Normal Negative [facility] ([place]) Comment on above: Performed By: #### U A #### [address] [address] Ketones Ql (U) Negative Normal Neg-Trace [facility] ([place]) Comment on above: Performed By: #### U A #### [address] [address] UA Appear Clear Normal Clear [facility] ([place]) Comment on above: Performed By: #### U A #### [address] [address] UA Blood Trace Normal Neg-Trace [facility] ([place]) Comment on above: Performed By: #### U A #### [address] [address] UA Leuk Est Negative Normal Negative [facility] ([place]) Comment on above: Performed By: #### U A #### [address] [address] UA Nitrite Negative Normal Negative [facility] ([place]) Comment on above: Performed By: #### U A #### [address] [address] UA pH 6.5 Normal 5.0 - 8.0 [facility] ([place]) Comment on above: Performed By: #### U A #### [address] [address] UA Protein 30 mg/dL Normal Negative [facility] ([place]) Comment on above: Performed By: #### U A #### [address] [address] UA Spec Grav 1.025 Normal 1.006-1.029 [facility] ([place]) Comment on above: Performed By: #### U A #### [address] [address] UA Specimen Type Clean Catch Normal [facility] ([place]) Comment on above: Performed By: #### U A #### [address] [address] UA Urobilinogen 1.0 E.U./dL Normal 0.2-1.0 [facility] ([place]) Comment on above: Performed By: #### U A #### [address] [address] Urobilinogen (U) [Mass/Vol] Negative Normal Neg-Trace [facility] ([place]) Comment on above: Performed By: #### U A #### [address] [address] .Auto Diffon 03-09-2023 Basophil, Absolute 0.1 10 3/mcL Normal 0.0-0.2 [facility] ([place]) Comment on above: Performed By: #### P RO, BMP, GFR #### [address] [address] Basophils/100 WBC (Bld) 1.0 % Normal 0.0-2.5 [facility] ([place]) Comment on above: Performed By: #### P RO, BMP, GFR #### [address] [address] Eosinophil, Absolute 0.2 10 3/mcL Normal 0.0-0.4 [facility] ([place]) Comment on above: Performed By: #### P RO, BMP, GFR #### [address] [address] Eosinophils/100 WBC (Bld) 3.2 % Normal 0.0-7.0 [facility] ([place]) Comment on above: Performed By: #### P RO, BMP, GFR #### [address] [address] Lymphocyte, Absolute 1.9 10 3/mcL Normal 0.8-3.9 [facility] ([place]) Comment on above: Performed By: #### P RO, BMP, GFR #### [address] [address] Lymphocytes/100 WBC (Bld) 29.2 % Normal 10.0-50.0 [facility] ([place]) Comment on above: Performed By: #### P RO, BMP, GFR #### [address] [address] Monocyte, Absolute 0.7 10 3/mcL Normal 0.2-1.0 [facility] ([place]) Comment on above: Performed By: #### P RO, BMP, GFR #### [address] [address] Monocytes/100 WBC (Bld) 11.5 % Normal 1.7-13.0 [facility] ([place]) Comment on above: Performed By: #### P RO, BMP, GFR #### [address] [address] Neutrophils/100 WBC (Bld) 55.1 % Normal 37.0-80.0 [facility] ([place]) Comment on above: Performed By: #### P RO, BMP, GFR #### [address] [address] .GFRon 03-09-2023 GFR 72 ml/min/1.73sqm Normal [facility] ([place]) Comment on above: Result Comment: GFR Population mean for , Non- Americans Ages 20-29 = 116 mL/min/1.73 sq.m. Ages 30-39 = 107 mL/min/1.73 sq.m. Ages 40-49 = 99 mL/min/1.73 sq.m. Ages 50-59 = 93 mL/min/1.73 sq.m. Ages 60-69 = 85 mL/min/1.73 sq.m. Ages 70+ = 75 mL/min/1.73 sq.m. Chronic Kidney Disease: Less than 60 mL/min/1.73 square meters End Stage Renal Disease: Less than 15 mL/min/1.73 square meters Performed By: #### P RO, BMP, GFR #### [address] [address] GFR Non- 59 ml/min/1.73sqm Normal [facility] ([place]) Comment on above: Result Comment: GFR Population mean for , Non- Americans Ages 20-29 = 116 mL/min/1.73 sq.m. Ages 30-39 = 107 mL/min/1.73 sq.m. Ages 40-49 = 99 mL/min/1.73 sq.m. Ages 50-59 = 93 mL/min/1.73 sq.m. Ages 60-69 = 85 mL/min/1.73 sq.m. Ages 70+ = 75 mL/min/1.73 sq.m. Chronic Kidney Disease: Less than 60 mL/min/1.73 square meters End Stage Renal Disease: Less than 15 mL/min/1.73 square meters Performed By: #### P RO, BMP, GFR #### [address] [address] .NEUABSon 03-09-2023 Neutrophil, Absolute 3.5 10 3/mcL Normal 2.9-6.2 [facility] ([place]) Comment on above: Performed By: #### P RO, BMP, GFR #### [address] [address] A1Con 03-09-2023 HbA1c (Bld) [Mass fraction] 5.6 % Normal 4.3-6.4 [facility] ([place]) Comment on above: Performed By: #### P RO, BMP, GFR #### [address] [address] B12on 03-09-2023 Cobalamin (Vitamin B12) [Mass/Vol] 381 pg/mL Normal 211-911 [facility] ([place]) Comment on above: Performed By: #### P RO, BMP, GFR #### [place] [address] CBCon 03-09-2023 Erythrocyte distribution width (RBC) [Ratio] 15.8 % High 11.5-14.5 [facility] ([place]) Comment on above: Performed By: #### P RO, BMP, GFR #### [place] [address] Hematocrit (Bld) [Volume fraction] 48.8 % Normal 42.0-52.0 [facility] ([place]) Comment on above: Performed By: #### P RO, BMP, GFR #### [place] [address] Hgb 15.9 G/dL Normal 14.0-18.0 [facility] ([place]) Comment on above: Performed By: #### P RO, BMP, GFR #### [place] [address] MCH (RBC) [Entitic mass] 27.4 pg Normal 27.0-31.2 [facility] ([place]) Comment on above: Performed By: #### P RO, BMP, GFR #### [place] [address] MCHC 32.5 G/dL Normal 31.8-35.4 [facility] ([place]) Comment on above: Performed By: #### P RO, BMP, GFR #### [place] [address] MCV (RBC) [Entitic vol] 84.4 fL Normal 80.0-94.0 [facility] ([place]) Comment on above: Performed By: #### P RO, BMP, GFR #### [address] [address] Platelet 147 10 3/mcL Normal 130-400 [facility] ([place]) Comment on above: Performed By: #### P RO, BMP, GFR #### [address] [address] Platelet mean volume (Bld) [Entitic vol] 9.5 fL Normal 7.4-10.4 [facility] ([place]) Comment on above: Performed By: #### P RO, BMP, GFR #### [address] [address] RBC 5.78 10 6/mcL Normal 4.04-6.13 [facility] ([place]) Comment on above: Performed By: #### P RO, BMP, GFR #### [address] [address] WBC 6.4 10 3/mcL Normal 4.6-10.8 [facility] ([place]) Comment on above: Performed By: #### P RO, BMP, GFR #### [address] [address] CMPon 03-09-2023 Albumin Level 3.6 G/dL Normal 3.4-4.8 [facility] ([place]) Comment on above: Performed By: #### P RO, BMP, GFR #### [address] [address] Albumin/Globulin [Mass ratio] 1.1 {ratio} Normal 1.1-2.5 [facility] ([place]) Comment on above: Performed By: #### P RO, BMP, GFR #### [address] [address] ALP [Catalytic activity/Vol] 82 U/L Normal 40-135 [facility] ([place]) Comment on above: Performed By: #### P RO, BMP, GFR #### [address] [address] ALT [Catalytic activity/Vol] 23 U/L Normal 16-63 [facility] ([place]) Comment on above: Performed By: #### P RO, BMP, GFR #### [address] [address] AST [Catalytic activity/Vol] 16 U/L Normal 10-40 [facility] ([place]) Comment on above: Performed By: #### P RO, BMP, GFR #### [address] [address] Bili Total 0.6 mg/dL Normal 0.2-1.0 [facility] ([place]) Comment on above: Result Comment: Use of this assay is not recommended for patients undergoing treatment with eltrombopag due to the potential for falsely elevated results. Performed By: #### P RO, BMP, GFR #### [address] [address] BUN/Creatinine Ratio 14 ratio Normal 7-27 [facility] ([place]) Comment on above: Performed By: #### P RO, BMP, GFR #### [address] [address] Calcium [Mass/Vol] 9.3 mg/dL Normal 8.4-10.2 [facility] ([place]) Comment on above: Performed By: #### P RO, BMP, GFR #### [address] [address] Chloride [Moles/Vol] 105 mmol/L Normal 98-107 [facility] ([place]) Comment on above: Performed By: #### P RO, BMP, GFR #### [address] [address] CO2 [Moles/Vol] 31 mmol/L Normal 23-31 [facility] ([place]) Comment on above: Performed By: #### P RO, BMP, GFR #### [address] [address] Creatinine [Mass/Vol] 1.23 mg/dL Normal 0.70-1.30 [facility] ([place]) Comment on above: Performed By: #### P RO, BMP, GFR #### [address] [address] Electrolyte Balance 8.0 mEq/L Normal 4.0-15.0 [facility] ([place]) Comment on above: Performed By: #### P RO, BMP, GFR #### [address] [address] Globulin 3.3 G/dL Normal [facility] ([place]) Comment on above: Performed By: #### P RO, BMP, GFR #### [address] [address] Glucose [Mass/Vol] 77 mg/dL Low 80-115 [facility] ([place]) Comment on above: Performed By: #### P RO, BMP, GFR #### [address] [address] Potassium [Moles/Vol] 3.9 mmol/L Normal 3.5-5.1 [facility] ([place]) Comment on above: Performed By: #### P RO, BMP, GFR #### [address] [address] Sodium [Moles/Vol] 144 mmol/L Normal 136-145 [facility] ([place]) Comment on above: Performed By: #### P RO, BMP, GFR #### [address] [address] Total Protein 6.9 G/dL Normal 6.4-8.2 [facility] ([place]) Comment on above: Performed By: #### P RO, BMP, GFR #### [address] [address] Urea nitrogen [Mass/Vol] 17 mg/dL Normal 7-18 [facility] ([place]) Comment on above: Performed By: #### P RO, BMP, GFR #### [address] [address] FT4on 03-09-2023 Free T4 [Mass/Vol] 1.26 ng/dL Normal 0.76-1.46 [facility] ([place]) Comment on above: Performed By: #### P RO, BMP, GFR #### [address] [address] LIPIDon 03-09-2023 Cholesterol [Mass/Vol] 147 mg/dL Normal 0-200 [facility] ([place]) Comment on above: Result Comment: Chol esterol Reference Interval: Less than 200 Desirable 200-239 Borderline high risk 240 and above High risk Performed By: #### P RO, BMP, GFR #### [address] [address] Cholesterol in HDL [Mass/Vol] 49 mg/dL Normal 40-60 [facility] ([place]) Comment on above: Performed By: #### P RO, BMP, GFR #### [address] [address] Cholesterol in LDL [Mass/Vol] 85 mg/dL Normal 0-130 [facility] ([place]) Comment on above: Performed By: #### P RO, BMP, GFR #### [address] [address] Triglyceride [Mass/Vol] 66 mg/dL Normal 0-150 [facility] ([place]) Comment on above: Result Comment: Trig lyceride Reference Interval: Less than 150 Normal 150-199 Borderline high risk 200-499 High risk 500 or higher Very high risk Performed By: #### P RO, BMP, GFR #### [address] [address] MALBRon 03-09-2023 U Creatinine 266.7 mg/dL High 39.0-259.0 [facility] ([place]) Comment on above: Performed By: #### U A #### [address] [address] U Microalb 6124 mcg/dL Normal [facility] ([place]) Comment on above: Performed By: #### U A #### [facility] [address] [place] [address] U Ratio Alb/Cre 23 mcg/mg Normal 0-30 [facility] ([place]) Comment on above: Performed By: #### U A #### [address] [address] PSAon 03-09-2023 Prostate Specific Antigen 2.07 ng/mL Normal 0.00-4.00 [facility] ([place]) Comment on above: Performed By: #### P RO, BMP, GFR #### [address] [address] TSHon 03-09-2023 TSH Qn 1.17 m[IU]/L Normal 0.36-3.74 [facility] ([place]) Comment on above: Performed By: #### P RO, BMP, GFR #### [place] [address] URICon 03-09-2023 Uric Acid Lvl 8.9 mg/dL High 3.5-7.2 [facility] ([place]) Comment on above: Performed By: #### P RO, BMP, GFR #### [address] [address] VIDHon 03-09-2023 Vit. D 25-Hydroxy 46.0 ng/mL Normal [facility] ([place]) Comment on above: Result Comment: Inte rpretive Values Based on Total 25(OH) Vitamin D: Deficient <20 ng/mL Insufficient 20 - <30 ng/mL Sufficient 30-100 ng/mL Performed By: #### P RO, BMP, GFR #### [address] [address] .GFRon 01-09-2023 GFR 81 ml/min/1.73sqm Normal [facility] ([place]) Comment on above: Result Comment: GFR Population mean for , Non- Americans Ages 20-29 = 116 mL/min/1.73 sq.m. Ages 30-39 = 107 mL/min/1.73 sq.m. Ages 40-49 = 99 mL/min/1.73 sq.m. Ages 50-59 = 93 mL/min/1.73 sq.m. Ages 60-69 = 85 mL/min/1.73 sq.m. Ages 70+ = 75 mL/min/1.73 sq.m. Chronic Kidney Disease: Less than 60 mL/min/1.73 square meters End Stage Renal Disease: Less than 15 mL/min/1.73 square meters Performed By: #### P RO, BMP, GFR #### [address] [address] GFR Non- 67 ml/min/1.73sqm Normal [facility] ([place]) Comment on above: Result Comment: GFR Population mean for , Non- Americans Ages 20-29 = 116 mL/min/1.73 sq.m. Ages 30-39 = 107 mL/min/1.73 sq.m. Ages 40-49 = 99 mL/min/1.73 sq.m. Ages 50-59 = 93 mL/min/1.73 sq.m. Ages 60-69 = 85 mL/min/1.73 sq.m. Ages 70+ = 75 mL/min/1.73 sq.m. Chronic Kidney Disease: Less than 60 mL/min/1.73 square meters End Stage Renal Disease: Less than 15 mL/min/1.73 square meters Performed By: #### P RO, BMP, GFR #### [address] [address] BMPon 01-09-2023 BUN/Creatinine Ratio 14 ratio Normal 7-27 [facility] ([place]) Comment on above: Performed By: #### P RO, BMP, GFR #### [address] [address] Calcium [Mass/Vol] 8.6 mg/dL Normal 8.4-10.2 [facility] ([place]) Comment on above: Performed By: #### P RO, BMP, GFR #### [address] [address] Chloride [Moles/Vol] 103 mmol/L Normal 98-107 [facility] ([place]) Comment on above: Performed By: #### P RO, BMP, GFR #### [address] [address] CO2 [Moles/Vol] 33 mmol/L High 23-31 [facility] ([place]) Comment on above: Performed By: #### P RO, BMP, GFR #### [address] [address] Creatinine [Mass/Vol] 1.11 mg/dL Normal 0.70-1.30 [facility] ([place]) Comment on above: Performed By: #### P RO, BMP, GFR #### [address] [address] Electrolyte Balance 7.0 mEq/L Normal 4.0-15.0 [facility] ([place]) Comment on above: Performed By: #### P RO, BMP, GFR #### [address] [address] Glucose [Mass/Vol] 96 mg/dL Normal 80-115 [facility] ([place]) Comment on above: Performed By: #### P RO, BMP, GFR #### [address] [address] Potassium [Moles/Vol] 3.6 mmol/L Normal 3.5-5.1 [facility] ([place]) Comment on above: Performed By: #### P RO, BMP, GFR #### [address] [address] Sodium [Moles/Vol] 143 mmol/L Normal 136-145 [facility] ([place]) Comment on above: Performed By: #### P RO, BMP, GFR #### [address] [address] Urea nitrogen [Mass/Vol] 16 mg/dL Normal 7-18 [facility] ([place]) Comment on above: Performed By: #### P RO, BMP, GFR #### [address] [address] LABORATORYOrdered By: SYSTEM SYSTEM on 01-09-2023 Calcium [Mass/Vol] 8.6 mg/dL Invalid Interpretation Code 8.4 - 10.2 mg/dL AO ADM SS Chloride [Moles/Vol] 103 mmol/L Invalid Interpretation Code 98 - 107 mmol/L AO ADM SS CO2 [Moles/Vol] 33 mmol/L Invalid Interpretation Code 23 - 31 mmol/L AO ADM SS Creatinine [Mass/Vol] 1.11 mg/dL Invalid Interpretation Code 0.70 - 1.30 mg/dL AO ADM SS Electrolyte Balance 7.0 mEq/L Invalid Interpretation Code 4.0 - 15.0 mEq/L AO ADM SS GFR/1.73 sq M.predicted among blacks MDRD (S/P/Bld) [Vol rate/Area] 81 ml/min/1.73sqm Invalid Interpretation Code AO Chemistry S Comment on above: Interpretive Data: GFR Population mean for , Non- Americans Ages 20-29 = 116 mL/min/1.73 sq.m. Ages 30-39 = 107 mL/min/1.73 sq.m. Ages 40-49 = 99 mL/min/1.73 sq.m. Ages 50-59 = 93 mL/min/1.73 sq.m. Ages 60-69 = 85 mL/min/1.73 sq.m. Ages 70+ = 75 mL/min/1.73 sq.m. Chronic Kidney Disease: Less than 60 mL/min/1.73 square meters End Stage Renal Disease: Less than 15 mL/min/1.73 square meters GFR/1.73 sq M.predicted among non-blacks MDRD (S/P/Bld) [Vol rate/Area] 67 ml/min/1.73sqm Invalid Interpretation Code AO Chemistry S Comment on above: Interpretive Data: GFR Population mean for , Non- Americans Ages 20-29 = 116 mL/min/1.73 sq.m. Ages 30-39 = 107 mL/min/1.73 sq.m. Ages 40-49 = 99 mL/min/1.73 sq.m. Ages 50-59 = 93 mL/min/1.73 sq.m. Ages 60-69 = 85 mL/min/1.73 sq.m. Ages 70+ = 75 mL/min/1.73 sq.m. Chronic Kidney Disease: Less than 60 mL/min/1.73 square meters End Stage Renal Disease: Less than 15 mL/min/1.73 square meters Glucose [Mass/Vol] 96 mg/dL Invalid Interpretation Code 80 - 115 mg/dL AO ADM SS Potassium [Moles/Vol] 3.6 mmol/L Invalid Interpretation Code 3.5 - 5.1 mmol/L AO ADM SS Sodium [Moles/Vol] 143 mmol/L Invalid Interpretation Code 136 - 145 mmol/L AO ADM SS Urea nitrogen [Mass/Vol] 16 mg/dL Invalid Interpretation Code 7 - 18 mg/dL AO ADM SS Urea nitrogen/Creatinine [Mass ratio] 14 ratio Invalid Interpretation Code 7 - 27 ratio AO ADM SS LABORATORYOrdered By: Cinthia Moreland on 01-09-2023 INR Coag (PPP) [Relative time] 1.2 {INR} Invalid Interpretation Code AO [facility] SS Comment on above: Interpretive Data: Francoise cali [employer] [place] [employer] (CHEST, 1991, 102:[id number]) recommended therapeutic range for oral anticoagulant therapy is: LOW RISK: Prophylaxis of venous thrombosis INR: 2.0-3.0 Treatment of pulmonary embolism 2.0-3.0 Prevention of systemic embolism 2.0-3.0 HIGH RISK: Mechanical prosthetic valves 2.5-3.5 PT Coag (PPP) [Time] 13.8 s Invalid Interpretation Code 9.0 - 14.2 seconds AO [facility] SS PROon 01-09-2023 PT Coag (PPP) [Time] 13.8 s Normal 9.0-14.2 [facility] ([place]) Comment on above: Performed By: #### P RO, BMP, GFR #### [address] [address] PT International Ratio 1.2 Normal [facility] ([place]) Comment on above: Result Comment: The [employer] [place] [employer] (CHEST, 1991, 102:[id number]) recommended therapeutic range for oral anticoagulant therapy is: LOW RISK: Prophylaxis of venous thrombosis INR: 2.0-3.0 Treatment of pulmonary embolism 2.0-3.0 Prevention of systemic embolism 2.0-3.0 HIGH RISK: Mechanical prosthetic valves 2.5-3.5 Performed By: #### P RO, BMP, GFR #### [address] [address] XR FLUORO < 1HR TECH TIMEon 01-09-2023 XR FLUORO < 1HR TECH TIME ORIGINAL Images acquired, not reported on this accession number. Normal [facility] ([place]) LABORATORYOrdered By: Kayrn Esquivel on 05-23-2022 Albumin DL <= 20 mg/L (U) [Mass/Vol] 385 mcg/dL Invalid Interpretation Code AO ADM SS Albumin/Creatinine DL <= 20 mg/L (U) [Mass ratio] 14 mcg/mg Invalid Interpretation Code 0 - 30 mcg/mg AO ADM SS Creatinine (U) [Mass/Vol] 27.0 mg/dL Invalid Interpretation Code 39.0 - 259.0 mg/dL AO ADM SS LABORATORYOrdered By: SYSTEM SYSTEM on 05-23-2022 Calcium [Mass/Vol] 8.3 mg/dL Invalid Interpretation Code 8.4 - 10.2 mg/dL AO ADM SS Chloride [Moles/Vol] 104 mmol/L Invalid Interpretation Code 98 - 107 mmol/L AO ADM SS CO2 [Moles/Vol] 32 mmol/L Invalid Interpretation Code 23 - 31 mmol/L AO ADM SS Creatinine [Mass/Vol] 1.08 mg/dL Invalid Interpretation Code 0.70 - 1.30 mg/dL AO ADM SS Electrolyte Balance 7.0 mEq/L Invalid Interpretation Code 4.0 - 15.0 mEq/L AO ADM SS GFR 84 ml/min/1.73sqm Invalid Interpretation Code AO Chemistry S GFR Non- 69 ml/min/1.73sqm Invalid Interpretation Code AO Chemistry S Glucose [Mass/Vol] 102 mg/dL Invalid Interpretation Code 80 - 115 mg/dL AO ADM SS Potassium [Moles/Vol] 4.0 mmol/L Invalid Interpretation Code 3.5 - 5.1 mmol/L AO ADM SS Sodium [Moles/Vol] 143 mmol/L Invalid Interpretation Code 136 - 145 mmol/L AO ADM SS Urea nitrogen [Mass/Vol] 17 mg/dL Invalid Interpretation Code 7 - 18 mg/dL AO ADM SS Urea nitrogen/Creatinine [Mass ratio] 16 ratio Invalid Interpretation Code 7 - 27 ratio AO ADM SS Laboratory - CoagulationOrde red By: Dr. Owens on 05-09-2022 INR Coag (Bld) [Relative time] 1.3 {INR} [facility] Comment on above: Critical Value > 4.0 Whole blood prothrombin time Ordered By: Dr. Owens on 05-09-2022 PT Coag (Bld) [Time] 15.6 s 11.7-14.9 [facility] Laboratory - CoagulationOrde red By: Dr. Owens on 02-07-2022 INR Coag (Bld) [Relative time] 1.1 {INR} [facility] Comment on above: Critical Value > 4.0 Whole blood prothrombin time Ordered By: Dr. Owens on 02-07-2022 PT Coag (Bld) [Time] 13.5 s 11.7-14.9 [facility] Laboratory - Coagulationon 1 INR Coag (Bld) [Relative time] 1.2 {INR} [facility] Work Phone: Comment on above: Critical Value > 4.0 Whole blood prothrombin time on 12-20-2021 PT Coag (Bld) [Time] 14.6 s 11.7-14.9 [facility] Work Phone: LABORATORYOrdered By: Karyn Esquivel on 12-07-2021 Albumin BCP dye [Mass/Vol] 3.2 G/dL Invalid Interpretation Code 3.4 - 4.8 G/dL AO ADM SS Albumin/Globulin [Mass ratio] 0.9 {ratio} Invalid Interpretation Code 1.1 - 2.5 ratio AO ADM SS ALP [Catalytic activity/Vol] 58 U/L Invalid Interpretation Code 40 - 135 U/L AO ADM SS ALT With P-5'-P [Catalytic activity/Vol] 28 U/L Invalid Interpretation Code 16 - 63 U/L AO ADM SS AST With P-5'-P [Catalytic activity/Vol] 15 U/L Invalid Interpretation Code 10 - 40 U/L AO ADM SS Bilirubin [Mass/Vol] 0.5 mg/dL Invalid Interpretation Code 0.2 - 1.0 mg/dL AO ADM SS Calcium [Mass/Vol] 8.2 mg/dL Invalid Interpretation Code 8.4 - 10.2 mg/dL AO ADM SS Chloride [Moles/Vol] 106 mmol/L Invalid Interpretation Code 98 - 107 mmol/L AO ADM SS Cholesterol [Mass/Vol] 142 mg/dL Invalid Interpretation Code 0 - 200 mg/dL AO ADM SS Cholesterol in HDL [Mass/Vol] 46 mg/dL Invalid Interpretation Code 40 - 60 mg/dL AO ADM SS Cholesterol in LDL [Mass/Vol] 86 mg/dL Invalid Interpretation Code 0 - 130 mg/dL AO ADM SS CO2 [Moles/Vol] 30 mmol/L Invalid Interpretation Code 23 - 31 mmol/L AO ADM SS Creatinine [Mass/Vol] 1.46 mg/dL Invalid Interpretation Code 0.70 - 1.30 mg/dL AO ADM SS Electrolyte Balance 6.0 mEq/L Invalid Interpretation Code 4.0 - 15.0 mEq/L AO ADM SS Ferritin [Mass/Vol] 37.0 ng/mL Invalid Interpretation Code 26.0 - 388.0 ng/mL AO ADM SS Globulin 3.4 G/dL Invalid Interpretation Code AO ADM SS Glucose [Mass/Vol] 80 mg/dL Invalid Interpretation Code 80 - 115 mg/dL AO ADM SS HbA1c (Bld) [Mass fraction] 5.8 % Invalid Interpretation Code 4.3 - 6.4 % AO ADM SS Iron [Mass/Vol] 34 ug/dL Invalid Interpretation Code 65 - 175 mcg/dL AO ADM SS Iron binding capacity [Mass/Vol] 305 mcg/dL Invalid Interpretation Code 250 - 450 mcg/dL AO ADM SS Iron Sat 11 1 Invalid Interpretation Code AO ADM SS Potassium [Moles/Vol] 4.1 mmol/L Invalid Interpretation Code 3.5 - 5.1 mmol/L AO ADM SS Prostate specific Ag [Mass/Vol] 3.49 ng/mL Invalid Interpretation Code 0.00 - 4.00 ng/mL AO ADM SS Protein [Mass/Vol] 6.6 G/dL Invalid Interpretation Code 6.4 - 8.2 G/dL AO ADM SS Sodium [Moles/Vol] 142 mmol/L Invalid Interpretation Code 136 - 145 mmol/L AO ADM SS Triglyceride [Mass/Vol] 49 mg/dL Invalid Interpretation Code 0 - 150 mg/dL AO ADM SS TSH Qn 1.19 m[IU]/L Invalid Interpretation Code 0.36 - 3.74 mcIU/mL AO ADM SS Urea nitrogen [Mass/Vol] 30 mg/dL Invalid Interpretation Code 7 - 18 mg/dL AO ADM SS Urea nitrogen/Creatinine [Mass ratio] 21 ratio Invalid Interpretation Code 7 - 27 ratio AO ADM SS Vit. D 25-Hydroxy 39.9 ng/mL Invalid Interpretation Code AO ADM SS LABORATORYOrdered By: Silvia Cardona on 12-07-2021 Basophil, Absolute 0.0 103/mcL Invalid Interpretation Code 0.0 - 0.2 10^3/mcL AO Workflow SS Basophils/100 WBC (Bld) 0.3 % Invalid Interpretation Code 0.0 - 2.5 % AO Workflow SS Eosinophil, Absolute 0.1 103/mcL Invalid Interpretation Code 0.0 - 0.4 10^3/mcL AO Workflow SS Eosinophils/100 WBC (Bld) 0.7 % Invalid Interpretation Code 0.0 - 7.0 % AO Workflow SS Erythrocyte distribution width (RBC) [Ratio] 19.5 % Invalid Interpretation Code 11.5 - 14.5 % AO Workflow SS Hematocrit (Bld) [Volume fraction] 43.7 % Invalid Interpretation Code 42.0 - 52.0 % AO Workflow SS Hemoglobin (Bld) [Mass/Vol] 14.2 G/dL Invalid Interpretation Code 14.0 - 18.0 G/dL AO Workflow SS Lymphocyte, Absolute 2.1 103/mcL Invalid Interpretation Code 0.8 - 3.9 10^3/mcL AO Workflow SS Lymphocytes/100 WBC (Bld) 21.2 % Invalid Interpretation Code 10.0 - 50.0 % AO Workflow SS MCH (RBC) [Entitic mass] 25.0 pg Invalid Interpretation Code 27.0 - 31.2 pg AO Workflow SS MCHC 32.5 G/dL Invalid Interpretation Code 31.8 - 35.4 G/dL AO Workflow SS MCV (RBC) [Entitic vol] 77.1 fL Invalid Interpretation Code 80.0 - 94.0 fL AO Workflow SS Monocyte, Absolute 1.0 103/mcL Invalid Interpretation Code 0.2 - 1.0 10^3/mcL AO Workflow SS Monocytes/100 WBC (Bld) 10.2 % Invalid Interpretation Code 1.7 - 13.0 % AO Workflow SS Neutrophil, Absolute 6.8 103/mcL Invalid Interpretation Code 2.9 - 6.2 10^3/mcL AO Workflow SS Neutrophils/100 WBC (Bld) 67.6 % Invalid Interpretation Code 37.0 - 80.0 % AO Workflow SS Platelet mean volume (Bld) [Entitic vol] 9.2 fL Invalid Interpretation Code 7.4 - 10.4 fL AO Workflow SS Platelets (Bld) [#/Vol] 227 103/mcL Invalid Interpretation Code 130 - 400 10^3/mcL AO Workflow SS RBC (Bld) [#/Vol] 5.67 106/mcL Invalid Interpretation Code 4.04 - 6.13 10^6/mcL AO Workflow SS WBC (Bld) [#/Vol] 10.1 103/mcL Invalid Interpretation Code 4.6 - 10.8 10^3/mcL AO Workflow SS LABORATORYOrdered By: SYSTEM SYSTEM on 12-07-2021 GFR 59 ml/min/1.73sqm Invalid Interpretation Code AO Chemistry S GFR Non- 49 ml/min/1.73sqm Invalid Interpretation Code AO Chemistry S LABORATORYOrdered By: Gary Mars on 12-07-2021 HCV Ab IA Ql Non-Reactive (12/07/21 11:45 AM) Invalid Interpretation Code Non-Reactiv e AH ADM SS HCV Ab IA Ql Nonreactive: Samples with a value < 0.80 are considered nonreactive (negative) for antibodies to HCV.A negative test result does not exclude the possibility of exposure to or infection with HCV. HCV antibodies may be undetectable in some stages of the infection and in some clinical conditions. Invalid Interpretation Code Chemistry S Absolute lymphocyte counton 12-02-2021 Lymphocytes Auto (Unsp spec) [#/Vol] 0.86 10*3/uL 0.83-4.51 [facility] Work Phone: Basophil percentageon 2021 Basophils/100 WBC (Bld) 0.3 % 0-1 [facility] Work Phone: [phone] Chloride [Moles/Vol] 104 mmol/L 98-107 [facility] Work Phone: [phone] Eosinophils/100 WBC (Bld) 0.0 % 0-5 [facility] Work Phone: [phone] Glucose [Mass/Vol] 135 mg/dL 74-106 [facility] Work Phone: Comment on above: Fasting Glucose resu lt greater than or equal to 126 mg/dL suggests DIABETES MELLITUS per A.D.A. criteria. Neutrophils (Bld) [#/Vol] 7.7 10*3/uL 2.0-7.7 [facility] Work Phone: Neutrophils/100 WBC (Bld) 80.1 % 47-70 [facility] Work Phone: Potassium [Moles/Vol] 3.8 mmol/L 3.5-5.1 [facility] Work Phone: Sodium [Moles/Vol] 140 mmol/L 136-145 [facility] Work Phone: WBC (Bld) [#/Vol] 9.6 10*3/uL 4.4-11.0 [facility] Work Phone: Blood erythrocytes count (nu mber/volume)on 12-02-2021 RBC (Bld) [#/Vol] 6.07 10*6/uL 4.6-6.2 [facility] Work Phone: Blood hemoglobin measurement (mass/volume)on 12-02-2021 Hemoglobin (Bld) [Mass/Vol] 15.3 g/dL 13.0-16.5 [facility] Work Phone: Blood lymphocytes/100 leukoc yteson 12-02-2021 Lymphocytes/100 WBC (Bld) 9.0 % 19-41 [facility] Work Phone: Blood manual differential co mment interpretation (narrative result)on 12-02-2021 Manual differential comment Omar (Bld) [Interp] SCANNED [facility] Work Phone: Blood monocytes/100 leukocyt eson 12-02-2021 Monocytes/100 WBC (Bld) 10.2 % 0-10 [facility] Work Phone: Blood platelet mean volumeon 12-02-2021 Platelet mean volume (Bld) [Entitic vol] TNP [facility] Work Phone: Comment on above: Test not performed Determination of erythrocyte mean corpuscular volume (MCV)on 12-02-2021 MCV (RBC) [Entitic vol] 77.9 fL 80-94 [facility] Work Phone: Hematocrit Auto (Bld) [Volum e fraction]on 12-02-2021 Hematocrit (Bld) [Volume fraction] 47.3 % 40-54 [facility] Work Phone: INR in Blood by Coagulation assayon 12-02-2021 INR Coag (Bld) [Relative time] 1.2 {INR} [facility] Work Phone: Laboratory - Chemistry and C hemistry - challengeon 12-02-2021 CO2 [Moles/Vol] 28.0 mmol/L 21.0-32.0 [facility] Work Phone: Urea nitrogen/Creatinine [Mass ratio] 18.6 mg/mg 10-20 [facility] Work Phone: Laboratory - Coagulationon 0 12-02-2021 PT Coag (PPP) [Time] 15.1 s 11.7-14.9 [facility] Work Phone: Laboratory - Hematology and Cell countson 12-02-2021 Anisocytosis Ql (Bld) 1+ [facility] Work Phone: Erythrocyte distribution width (RBC) [Entitic vol] 55.2 fL 35.1-43.9 [facility] Work Phone: Erythrocyte distribution width (RBC) [Ratio] 20.3 % 11.6-14.6 [facility] Work Phone: Immature granulocytes/100 WBC (Bld) 0.400 % 0.0-0.9 [facility] Work Phone: Comment on above: IG% - Immature Granu locytes (promyelocytes, myelocytes and metamyelocytes) > 1% indicates that a LEFT SHIFT is Present. MCH (RBC) [Entitic mass] 25.2 pg 27.0-32.0 [facility] Work Phone: Nucleated RBC/100 WBC (Bld) [Ratio] 0 % 0-5 [facility] Work Phone: MCHC Auto (RBC) [Mass/Vol]on 12-02-2021 MCHC (RBC) [Mass/Vol] 32.3 g/dL 32-36 [facility] Work Phone: No Panel Informationon 12-02 Estimated Creatinine Clearance Calc 61.83 ml/min [facility] Work Phone: Estimated GFR (MDRD) Amer 66 mL/min >60 [facility] Work Phone: Comment on above: GFR Calc Estimated GFR (MDRD) Non-Af Amer 55 mL/min >60 [facility] Work Phone: Comment on above: Non- GFR Calc Platelets bldon 12-02-2021 Platelets (Bld) [#/Vol] 192 10*3/uL 150-450 [facility] Work Phone: Serum or plasma calcium jamey urement (mass/volume)on 12-02-2021 Calcium [Mass/Vol] 8.7 mg/dL 8.5-10.1 [facility] Work Phone: Serum or plasma creatinine m easurement (mass/volume)on 12-02-2021 Creatinine [Mass/Vol] 1.40 mg/dL 0.70-1.30 [facility] Work Phone: Comment on above: The validity of the calculated GFR & GFRAA in patients over 70 years has not been determined. Clinical correlation is essential. Serum or plasma urea nitroge n measurement (mass/volume)on 12-02-2021 Urea nitrogen [Mass/Vol] 26 mg/dL 7-18 [facility] Work Phone: Thin prep Papanicolaou smear with manual screeningon 12-02-2021 Thin prep Papanicolaou smear with manual screening 8 5-15 [facility] Work Phone: Absolute lymphocyte counton 12-01-2021 Lymphocytes Auto (Unsp spec) [#/Vol] 1.68 10*3/uL 0.83-4.51 [facility] Work Phone: Basophil percentageon 2021 Basophils/100 WBC (Bld) 0.6 % 0-1 [facility] Work Phone: Chloride [Moles/Vol] 102 mmol/L 98-107 [facility] Work Phone: [phone] Eosinophils/100 WBC (Bld) 0.3 % 0-5 [facility] Work Phone: Glucose [Mass/Vol] 88 mg/dL 74-106 [facility] Work Phone: Neutrophils (Bld) [#/Vol] 7.5 10*3/uL 2.0-7.7 [facility] Work Phone: Neutrophils/100 WBC (Bld) 66.7 % 47-70 [facility] Work Phone: Potassium [Moles/Vol] 5.4 mmol/L 3.5-5.1 [facility] Work Phone: Sodium [Moles/Vol] 137 mmol/L 136-145 [facility] Work Phone: WBC (Bld) [#/Vol] 11.2 10*3/uL 4.4-11.0 [facility] Work Phone: Blood erythrocytes count (nu mber/volume)on 12-01-2021 RBC (Bld) [#/Vol] 6.61 10*6/uL 4.6-6.2 [facility] Work Phone: Blood hemoglobin measurement (mass/volume)on 12-01-2021 Hemoglobin (Bld) [Mass/Vol] 16.7 g/dL 13.0-16.5 [facility] Work Phone: Blood lymphocytes/100 leukoc yteson 12-01-2021 Lymphocytes/100 WBC (Bld) 15.0 % 19-41 [facility] Work Phone: Blood manual differential co mment interpretation (narrative result)on 12-01-2021 Manual differential comment Omar (Bld) [Interp] See comment [facility] Work Phone: Comment on above: MONOCYTOSIS NOTED Blood monocytes/100 leukocyt eson 12-01-2021 Monocytes/100 WBC (Bld) 17.0 % 0-10 [facility] Work Phone: Blood platelet adequacy dete ction by light microscopyon 12-01-2021 Platelets LM Ql (Bld) ADEQUATE ADEQ [facility] Work Phone: Blood platelet mean volumeon 12-01-2021 Platelet mean volume (Bld) [Entitic vol] 11.5 fL 6.2-12.0 [facility] Work Phone: Determination of erythrocyte mean corpuscular volume (MCV)on 12-01-2021 MCV (RBC) [Entitic vol] 80.0 fL 80-94 [facility] Work Phone: Erythrocyte sedimentation ra gabe 12-01-2021 ESR (Bld) [Velocity] 25 mm/h 0-20 [facility] Work Phone: Hematocrit Auto (Bld) [Volum e fraction]on 12-01-2021 Hematocrit (Bld) [Volume fraction] 52.9 % 40-54 [facility] Work Phone: INR in Blood by Coagulation assayon 12-01-2021 INR Coag (Bld) [Relative time] 1.1 {INR} [facility] Work Phone: Laboratory - Chemistry and C hemistry - challengeon 12-01-2021 CO2 [Moles/Vol] 25.0 mmol/L 21.0-32.0 [facility] Work Phone: Urea nitrogen/Creatinine [Mass ratio] 14.0 mg/mg 10-20 [facility] Work Phone: Laboratory - Coagulationon 0 12-01-2021 PT Coag (PPP) [Time] 14.3 s 11.7-14.9 [facility] Work Phone: Laboratory - Hematology and Cell countson 12-01-2021 Anisocytosis [facility]l (Bld) 1+ [facility]: Erythrocyte distribution width (RBC) [Entitic vol] 57.8 fL 35.1-43.9 [facility] Work Phone: [phone] Erythrocyte distribution width (RBC) [Ratio] 21.3 % 11.6-14.6 [facility] Work Phone: Immature granulocytes/100 WBC (Bld) 0.400 % 0.0-0.9 [facility] Work Phone: Comment on above: IG% - Immature Granu locytes (promyelocytes, myelocytes and metamyelocytes) > 1% indicates that a LEFT SHIFT is Present. MCH (RBC) [Entitic mass] 25.3 pg 27.0-32.0 [facility] Work Phone: Nucleated RBC/100 WBC (Bld) [Ratio] 0 % 0-5 [facility] Work Phone: MCHC Auto (RBC) [Mass/Vol]on 12-01-2021 MCHC (RBC) [Mass/Vol] 31.6 g/dL 32-36 [facility] Work Phone: No Panel Informationon 12-01 Estimated Creatinine Clearance Calc 71.54 ml/min [facility] Work Phone: Estimated GFR (MDRD) Amer 78 mL/min >60 [facility] Work Phone: Comment on above: GFR Calc Estimated GFR (MDRD) Non-Af Amer 65 mL/min >60 [facility] Work Phone: Comment on above: Non- GFR Calc Platelets bldon 12-01-2021 Platelets (Bld) [#/Vol] 185 10*3/uL 150-450 [facility] Work Phone: RBC morphologyon 12-01-2021 RBC morphology finding Nom (Bld) N CHROM NORMAL NORM C&C [facility] Work Phone: Review by pathologiston 11-18 Pathologist review Omar (Unsp spec) [Interp] Meche colton [facility] Work Phone: Pathologist review Omar (Unsp spec) [Interp] Reviewed [facility] Work Phone: Comment on above: Previous reported re sult: Meche segura Edited by: RGOMANOHAR on 12/02/21:1509Leukocytosis. PolycythemiaClinical correlation necessary.Jostin Coello M.D. 12/02/21 AMENDED REPORT 12/02/21 [id number] PATH REV previously reported as: Meche segura Serum or plasma C reactive p rotein measurement (mass/volume)on 12-01-2021 CRP [Mass/Vol] 98.70 mg/L 0.0-3.0 [facility] Work Phone: Comment on above: C-Reactive Protein ( CRP) provides useful information for thediagnosis, therapy and monitoring of inflammatory processesand associated diseases. For the evaluation of Relative Riskfor Cardiovascular Disease, a High Sensitivity CRP (HSCRP)should be ordered. Serum or plasma calcium jamey urement (mass/volume)on 12-01-2021 Calcium [Mass/Vol] 9.0 mg/dL 8.5-10.1 [facility] Work Phone: Serum or plasma creatinine m easurement (mass/volume)on 12-01-2021 Creatinine [Mass/Vol] 1.21 mg/dL 0.70-1.30 [facility] Work Phone: Comment on above: The validity of the calculated GFR & GFRAA in patients over 70 years has not been determined. Clinical correlation is essential. Serum or plasma urea nitroge n measurement (mass/volume)on 12-01-2021 Urea nitrogen [Mass/Vol] 17 mg/dL 7-18 [facility] Work Phone: Serum or plasma uric acid me asurement (mass/volume)on 12-01-2021 Urate [Mass/Vol] 9.3 mg/dL 3.5-7.2 [facility] Work Phone: Comment on above: The drugs N-Acetylcy steine and Metamizole may falsely depress this assay. Thin prep Papanicolaou smear with manual screeningon 12-01-2021 Thin prep Papanicolaou smear with manual screening 10 5-15 [facility] Work Phone: Laboratory - Coagulationon 0 09-06-2021 INR Coag (Bld) [Relative time] 1.2 {INR} [facility] Work Phone: Comment on above: Critical Value > 4.0 Whole blood prothrombin time on 09-06-2021 PT Coag (Bld) [Time] 14.7 s 11.7-14.9 [facility] Work Phone: Laboratory - Coagulationon 0 07-19-2021 INR Coag (Bld) [Relative time] 1.0 {INR} [facility] Work Phone: Comment on above: Critical Value > 4.0 Whole blood prothrombin time on 07-19-2021 PT Coag (Bld) [Time] 12.7 s 11.7-14.9 [facility] Work Phone: Laboratory - Coagulationon 0 06-07-2021 INR Coag (Bld) [Relative time] 1.1 {INR} [facility] Work Phone: Comment on above: Critical Value > 4.0 Whole blood prothrombin time on 06-07-2021 PT Coag (Bld) [Time] 13.9 s 11.7-14.9 [facility] Work Phone: Vital Signs Date Time Vital Sign Value Performing Clinician Facility 01-10-2025 13:58-0400 Diastolic Blood Pressure Non-Invasive 89 mm[Hg] AKSHAT SAWYER REGENERATOR OPERATOR-MANUFACTURING TECHNOLOGY ANALYST [facility] 01-10-2025 13:58-0400 Heart rate 67 /min AKSHAT SAWYER REGENERATOR OPERATOR-MANUFACTURING TECHNOLOGY ANALYST [facility] 01-10-2025 13:58-0400 Systolic Blood Pressure Non-Invasive 143 mm[Hg] AKSHAT SAWYER REGENERATOR OPERATOR-MANUFACTURING TECHNOLOGY ANALYST [facility] 01-10-2025 13:52-0400 Diastolic Blood Pressure Non-Invasive 108 mm[Hg] AKSHAT SAWYER REGENERATOR OPERATOR-MANUFACTURING TECHNOLOGY ANALYST [facility] 01-10-2025 13:52-0400 Heart rate 78 /min AKSHAT SAWYER REGENERATOR OPERATOR-MANUFACTURING TECHNOLOGY ANALYST [facility] 01-10-2025 13:52-0400 Systolic Blood Pressure Non-Invasive 173 mm[Hg] AKSHAT SAWYER REGENERATOR OPERATOR-MANUFACTURING TECHNOLOGY ANALYST [facility] 01-10-2025 13:44-0400 Diastolic Blood Pressure Non-Invasive 117 mm[Hg] AKSHAT SAWYER REGENERATOR OPERATOR-MANUFACTURING TECHNOLOGY ANALYST [facility] 01-10-2025 13:44-0400 Heart rate 84 /min AKSHAT SAWYER REGENERATOR OPERATOR-MANUFACTURING TECHNOLOGY ANALYST [facility] 01-10-2025 13:44-0400 Systolic Blood Pressure Non-Invasive 176 mm[Hg] AKSHAT SAWYER REGENERATOR OPERATOR-MANUFACTURING TECHNOLOGY ANALYST [facility] 01-10-2025 12:09-0400 Blood Pressure Cuff Size AKSHAT SAWYER REGENERATOR OPERATOR-MANUFACTURING TECHNOLOGY ANALYST [facility] 01-10-2025 12:09-0400 Blood Pressure Location AKSHAT SAWYER REGENERATOR OPERATOR-MANUFACTURING TECHNOLOGY ANALYST [facility] 01-10-2025 12:09-0400 Blood Pressure Method AKSHAT SAWYER REGENERATOR OPERATOR-MANUFACTURING TECHNOLOGY ANALYST [facility] 01-10-2025 12:09-0400 Body height 180 cm AKSHAT SAWYER REGENERATOR OPERATOR-MANUFACTURING TECHNOLOGY ANALYST [facility] 01-10-2025 12:09-0400 Body temperature 98.78 [degF] AKSHAT SAWYER REGENERATOR OPERATOR-MANUFACTURING TECHNOLOGY ANALYST [facility] 01-10-2025 12:09-0400 Body weight 159 kg AKSHAT SAWYER REGENERATOR OPERATOR-MANUFACTURING TECHNOLOGY ANALYST [facility] 01-10-2025 12:09-0400 Body weight 49.07 kg/m2 AKSHAT SAWYER REGENERATOR OPERATOR-MANUFACTURING TECHNOLOGY ANALYST [facility] 01-10-2025 12:09-0400 Respiratory rate 16 /min AKSHAT SAWYER REGENERATOR OPERATOR-MANUFACTURING TECHNOLOGY ANALYST [facility] 03-22-2024 13:00-0500 Diastolic Blood Pressure Non-Invasive 91 mm[Hg] BEN AUGUST MD [facility] 03-22-2024 13:00-0500 Heart rate 74 /min BEN AUGUST MD [facility] 03-22-2024 13:00-0500 Respiratory rate 14 /min BEN AUGUST MD [facility] 03-22-2024 13:00-0500 Systolic Blood Pressure Non-Invasive 156 mm[Hg] BEN AUGUST MD [facility] 03-22-2024 12:54-0500 Diastolic Blood Pressure Non-Invasive 80 mm[Hg] BEN AUGUST MD [facility] 03-22-2024 12:54-0500 Heart rate 76 /min BEN AUGUST MD [facility] 03-22-2024 12:54-0500 Respiratory rate 16 /min BEN AUGUST MD [facility] 03-22-2024 12:54-0500 Systolic Blood Pressure Non-Invasive 168 mm[Hg] BEN AUGUST MD [facility] 03-22-2024 12:49-0500 Diastolic Blood Pressure Non-Invasive 80 mm[Hg] BEN AUGUST MD [facility] 03-22-2024 12:49-0500 Heart rate 78 /min BEN AUGUST MD [facility] 03-22-2024 12:49-0500 Respiratory rate 16 /min BEN AUGUST MD [facility] 03-22-2024 12:49-0500 Systolic Blood Pressure Non-Invasive 170 mm[Hg] EBN AUGUST MD [facility] 03-22-2024 11:51-0500 Blood Pressure Location BEN AUGUST MD [facility] 03-22-2024 11:51-0500 Body height 70.9 cm BEN AUGUST MD [facility] 03-22-2024 11:51-0500 Body temperature 98.06 [degF] BEN AUGUST MD [facility] 03-22-2024 11:51-0500 Body weight 153.5 kg BEN AUGUST MD [facility] 03-22-2024 11:51-0500 Body weight 305.36 kg/m2 BEN AUGUST MD [facility] 09-23-2023 15:52-0400 Blood Pressure Cuff Size ZEFERINO COLORADO DO [facility] 09-23-2023 15:52-0400 Blood Pressure Location ZEFERINO COLORADO DO [facility] 09-23-2023 15:52-0400 Blood Pressure Method ZEFERINO Macdonald [facility] 09-23-2023 15:52-0400 Body temperature 98.6 [degF] ZEFERINO COLORADO DO [facility] 09-23-2023 15:52-0400 Diastolic Blood Pressure Non-Invasive 70 mm[Hg] ZEFERINO FAUSTINT DO [facility] 09-23-2023 15:52-0400 Heart rate 55 /min ZEFERINO FAUSTINT DO [facility] 09-23-2023 15:52-0400 Respiratory rate 18 /[facility] 09-23-2023 15:52-0400 Systolic Blood Pressure Non-Invasive 125 mm[Hg] [facility] 03-28-2023 13:12-0500 Body temperature 96.8 [degF] ANTHONY FERNÁNDEZ MD [address] 03-28-2023 13:12-0500 Diastolic Blood Pressure Non-Invasive 90 mm[Hg] ANTHONY FERNÁNDEZ MD [address] [place] [id number] 03-28-2023 13:12-0500 Heart rate 50 /min ANTHONY FERNÁNDEZ MD [address] [place] [id number] 03-28-2023 13:12-0500 Respiratory rate 18 /min ANTHONY FERNÁNDEZ MD [facility] 03-28-2023 13:12-0500 Systolic Blood Pressure Non-Invasive 160 mm[Hg] ANTHONY FERNÁNDEZ MD [address] [place] [address] 03-28-2023 12:05-0500 Body temperature 96.26 [degF] ANTHONY FERNÁNDEZ MD [address] [place] [id number] 03-28-2023 12:05-0500 Diastolic Blood Pressure Non-Invasive 94 mm[Hg] ANTHONY FERNÁNDEZ MD [address] [place] [address] 03-28-2023 12:05-0500 Heart rate 59 /min ANTHONY FERNÁNDEZ MD [address] [place] [address] 03-28-2023 12:05-0500 Respiratory rate 16 /min ANTHONY FERNÁNDEZ MD [address] [place] [id number] 03-28-2023 12:05-0500 Systolic Blood Pressure Non-Invasive 162 mm[Hg] ANTHONY FERNÁNDEZ MD [address] [place] [id number] 03-28-2023 11:53-0500 Body temperature 96.98 [degF] ANTHONY FERNÁNDEZ MD [address] [place] [id number] 03-28-2023 11:53-0500 Diastolic Blood Pressure Non-Invasive 82 mm[Hg] ANTHONY FERNÁNDEZ MD [address] [place] [id number] 03-28-2023 11:53-0500 Heart rate 58 /min ANTHONY FERNÁNDEZ MD [address] [place] [id number] 03-28-2023 11:53-0500 Mean blood pressure 102 mm[Hg] ANTHONY FERNÁNDEZ MD [address] [place] [id number] 03-28-2023 11:53-0500 Respiratory rate 18 /min ANTHONY FERNÁNDEZ MD [address] [place] [id number] 03-28-2023 11:53-0500 Systolic Blood Pressure Non-Invasive 150 mm[Hg] ANTHONY FERNÁNDEZ MD [address] [place] [id number] 03-28-2023 11:39-0500 Heart rate 58 /min ANTHONY FERNÁNDEZ MD [address] [place] [id number] 03-28-2023 11:39-0500 Mean blood pressure 100 mm[Hg] ANTHONY FERNÁNDEZ MD [address] [place] [id number] 03-28-2023 11:24-0500 Heart rate 61 /min ANTHONY FERNÁNDEZ MD [address] [place] [id number] 03-28-2023 11:24-0500 Mean blood pressure 97 mm[Hg] ANTHONY FERNÁNDEZ MD [address] [place] [id number] 03-28-2023 11:11-0500 Heart rate 62 /min ANTHONY FERNÁNDEZ MD [address] [place] [id number] 03-28-2023 10:54-0500 Body temperature 97.16 [degF] ANTHONY FERNÁNDEZ MD [address] [place] [address] 03-28-2023 10:50-0500 Respiratory Rate - Anes 8 br/min ANTHONY FERNÁNDEZ MD [address] [place] [id number] 03-28-2023 10:45-0500 Respiratory Rate - Anes 9 br/min ANTHONY FERNÁNDEZ MD [address] [place] [address] 03-28-2023 10:40-0500 Respiratory Rate - Anes 8 br/min ANTHONY FERNÁNDEZ MD [address] [place] [address] 03-28-2023 10:35-0500 Body temperature 97.11 [degF] ANTHONY FERNÁNDEZ MD [address] [place] [id number] 03-28-2023 10:30-0500 Body temperature 97.09 [degF] ANTHONY FERNÁNDEZ MD [address] [place] [id number] 03-28-2023 10:25-0500 Body temperature 97.05 [degF] ANTHONY FERNÁNDEZ MD [address] [place] [id number] 03-28-2023 06:29-0500 Body height 180.3 cm ANTHONY FERNÁNDEZ MD [address] [place] [id number] 03-28-2023 06:29-0500 Body weight 153.4 kg ANTHONY FERNÁNDEZ MD [address] [place] [id number] 03-28-2023 06:29-0500 Heart rate 46 /min ANTHONY FERNÁNDEZ MD [facility] 01-09-2023 13:02-0400 Diastolic Blood Pressure Non-Invasive 115 1 POLO ROD MD [facility] 01-09-2023 13:02-0400 Heart rate 45 /min POLO ROD MD [facility] 01-09-2023 13:02-0400 Systolic Blood Pressure Non-Invasive 129 1 POLO ROD MD [facility] 01-09-2023 12:57-0400 Diastolic Blood Pressure Non-Invasive 91 1 POLO ROD MD [facility] 01-09-2023 12:57-0400 Heart rate 44 /min POLO ROD MD [facility] 01-09-2023 12:57-0400 Systolic Blood Pressure Non-Invasive 130 1 POLO ROD MD [facility] 01-09-2023 12:52-0400 Diastolic Blood Pressure Non-Invasive 91 1 POLO ROD MD [facility] 01-09-2023 12:52-0400 Heart rate 48 /min POLO ROD MD [facility] 01-09-2023 12:52-0400 Systolic Blood Pressure Non-Invasive 124 1 POLO ROD MD [facility] 01-09-2023 12:45-0400 Respiratory Rate - Anes 23 br/min POLO ROD MD [facility] 01-09-2023 12:40-0400 Respiratory Rate - Anes 20 br/min POLO ROD MD [facility] 01-09-2023 12:35-0400 Respiratory Rate - Anes 22 br/min POLO ROD MD [facility] 01-09-2023 11:29-0400 Body height 185 cm POLO ROD MD [facility] 01-09-2023 11:29-0400 Body weight 152.2 kg POLO ROD MD [facility] 01-09-2023 11:29-0400 Body weight 44.47 kg/m2 POLO ROD MD [facility] 01-09-2023 10:53-0400 Heart rate 51 /min POLO ROD MD [facility] 01-09-2023 10:53-0400 Respiratory rate 17 /min POLO ROD MD [facility] 10-03-2022 10:45-0400 Diastolic Blood Pressure Non-Invasive 87 1 BRENT VILLATORO REGENERATOR OPERATOR-MANUFACTURING TECHNOLOGY ANALYST [facility] 10-03-2022 10:45-0400 Heart rate 43 /min BRENT VILLATORO REGENERATOR OPERATOR-MANUFACTURING TECHNOLOGY ANALYST [facility] 10-03-2022 10:45-0400 Respiratory rate 18 /min BRENT VILLATORO REGENERATOR OPERATOR-MANUFACTURING TECHNOLOGY ANALYST [facility] 10-03-2022 10:45-0400 Systolic Blood Pressure Non-Invasive 169 1 BRENT SHAUNA REGENERATOR OPERATOR-MANUFACTURING TECHNOLOGY ANALYST [facility] 10-03-2022 10:23-0400 Body height 185 cm BRENT VILLATORO REGENERATOR OPERATOR-MANUFACTURING TECHNOLOGY ANALYST [facility] 10-03-2022 10:23-0400 Body weight 161.6 kg BRENT VILLATORO REGENERATOR OPERATOR-MANUFACTURING TECHNOLOGY ANALYST [facility] 10-03-2022 10:23-0400 Body weight 47.22 kg/m2 BRENT VILLATORO REGENERATOR OPERATOR-MANUFACTURING TECHNOLOGY ANALYST [facility] 10-03-2022 10:10-0400 Body height 185 cm BRENT VILLATORO REGENERATOR OPERATOR-MANUFACTURING TECHNOLOGY ANALYST [facility] 10-03-2022 10:10-0400 Body temperature 96.8 [degF] BRENT VILLATORO REGENERATOR OPERATOR-MANUFACTURING TECHNOLOGY ANALYST [facility] 10-03-2022 10:10-0400 Body weight 161.6 kg BRENT VILLATORO REGENERATOR OPERATOR-MANUFACTURING TECHNOLOGY ANALYST [facility] 10-03-2022 10:10-0400 Diastolic Blood Pressure Non-Invasive 75 1 BRENT VILLATORO REGENERATOR OPERATOR-MANUFACTURING TECHNOLOGY ANALYST [facility] 10-03-2022 10:10-0400 Heart rate 45 /min BRENT VILLATORO REGENERATOR OPERATOR-MANUFACTURING TECHNOLOGY ANALYST [facility] 10-03-2022 10:10-0400 Respiratory rate 19 /min BRENT VILLATORO REGENERATOR OPERATOR-MANUFACTURING TECHNOLOGY ANALYST [facility] 10-03-2022 10:10-0400 Systolic Blood Pressure Non-Invasive 129 1 BERNT VILLATORO REGENERATOR OPERATOR-MANUFACTURING TECHNOLOGY ANALYST [facility] 08-01-2022 11:45-0400 Diastolic Blood Pressure Non-Invasive 78 1 POLO ROD MD [facility] 08-01-2022 11:45-0400 Heart rate 56 /min POLO ROD MD [facility] 08-01-2022 11:45-0400 Systolic Blood Pressure Non-Invasive 110 1 POLO ROD MD [facility] 08-01-2022 11:29-0400 Body temperature 96.8 [degF] POLO ROD MD [facility] 08-01-2022 11:29-0400 Heart rate 56 /min POLO ROD MD [facility] 08-01-2022 09:34-0400 Body temperature 97.34 [degF] POLO ROD MD [facility] 08-01-2022 09:34-0400 Diastolic Blood Pressure Non-Invasive 72 1 POLO ROD MD [facility] 08-01-2022 09:34-0400 Heart rate 71 /min POLO ROD MD [facility] 08-01-2022 09:34-0400 Respiratory rate 14 /min POLO ROD MD [facility] 08-01-2022 09:34-0400 Systolic Blood Pressure Non-Invasive 122 1 POLO ROD MD [facility] 08-01-2022 09:29-0400 Body height 180 cm POLO ROD MD [facility] 08-01-2022 09:29-0400 Body weight 145 kg POLO ROD MD [facility] 08-01-2022 09:29-0400 Body weight 44.75 kg/m2 POLO ROD MD [facility] 05-09-2022 12:45-0500 Body temperature 98.4 [degF] [facility] 05-09-2022 12:45-0500 Diastolic blood pressure 71 mm[Hg] [facility] 05-09-2022 12:45-0500 Heart rate 48 /min [facility] 05-09-2022 12:45-0500 Respiratory rate 18 /min [facility] 05-09-2022 12:45-0500 SaO2% (BldA) [Mass fraction] 96 % [facility] 05-09-2022 12:45-0500 Systolic blood pressure 115 mm[Hg] [facility] 05-09-2022 11:09-0500 Body height 180.34 cm [facility] 05-09-2022 11:09-0500 Body mass index (BMI) [Ratio] 48.3 kg/m2 [facility] 05-09-2022 11:09-0500 Body weight 157.2 kg [facility] 02-07-2022 09:45-0500 Body temperature 98.2 [degF] Dr. Gagandeep Barclay Work Phone: [facility] 02-07-2022 09:45-0500 Diastolic blood pressure 79 mm[Hg] Dr. Gagandeep Barclay Work Phone: [facility] 02-07-2022 09:45-0500 Heart rate 58 /min Dr. Gagandeep Barclay Work Phone: [facility] 02-07-2022 09:45-0500 Respiratory rate 18 /min Dr. Gagandeep Barclay Work Phone: [facility] 02-07-2022 09:45-0500 SaO2% (BldA) [Mass fraction] 95 % Dr. Gagandeep Barclay Work Phone: [facility] 02-07-2022 09:45-0500 Systolic blood pressure 117 mm[Hg] Dr. Gagandeep Barclay Work Phone: [facility] 02-07-2022 09:35-0500 Inhaled oxygen flow rate 8 L/min Dr. Gagandeep Barclay Work Phone: [facility] 02-07-2022 07:42-0500 Body height 185.[address] Gagandeep Barclay Work Phone: [facility] Work Phone: 02-07-2022 07:42-0500 Body mass index (BMI) [Ratio] 45.9 kg/m2 Dr. Gagandeep Barclay Work Phone: [facility] 02-07-2022 07:42-0500 Body weight [address] Gagandeep Barclay Work Phone: [facility] 12-28-2021 14:54-0400 Body mass index (BMI) [Ratio] 39 kg/m2 Dr. Gagandeep Barclay Work Phone: [facility] Work Phone: 12-28-2021 14:54-0400 Body weight 134.[address] Gagandeep Barclay Work Phone: [facility] Work Phone: 12-28-2021 14:54-0400 Diastolic blood pressure 83 mm[Hg] Dr. Gagandeep Barclay Work Phone: [facility] Work Phone: 12-28-2021 14:54-0400 Heart rate 56 /min Dr. Gagandeep Barclay Work Phone: [facility] Work Phone: 12-28-2021 14:54-0400 Respiratory rate 16 /min Dr. Gagandeep Barclay Work Phone: [facility] Work Phone: 12-28-2021 14:54-0400 SaO2% (BldA) [Mass fraction] 99 % Dr. Gagandeep Barclay Work Phone: [facility] Work Phone: 12-28-2021 14:54-0400 Systolic blood pressure 130 mm[Hg] Dr. Gagandeep Barclay Work Phone: [facility] Work Phone: 12-20-2021 12:17-0400 Body temperature 98.5 [degF] Dr. Gagandeep Barclay Work Phone: [facility] Work Phone: 12-20-2021 12:17-0400 Diastolic blood pressure 67 mm[Hg] Dr. Gagandeep Barclay Work Phone: [facility] Work Phone: 12-20-2021 12:17-0400 Heart rate 52 /min Dr. Gagandeep Barclay Work Phone: [facility] Work Phone: 12-20-2021 12:17-0400 Respiratory rate 16 /min Dr. Gagandeep Barclay Work Phone: [facility] Work Phone: 12-20-2021 12:17-0400 SaO2% (BldA) [Mass fraction] 100 % Dr. Gagandeep Barclay Work Phone: [facility] Work Phone: 12-20-2021 12:17-0400 Systolic blood pressure 121 mm[Hg] Dr. Gagandeep Barclay Work Phone: [facility] Work Phone: 12-20-2021 09:34-0400 Body mass index (BMI) [Ratio] 38.9 kg/m2 Dr. Gagandeep Barclay Work Phone: [facility] Work Phone: 12-20-2021 09:34-0400 Body weight 133.[address] Gagandeep Barclay Work Phone: [facility] Work Phone: 12-02-2021 15:00-0400 Body temperature 98.7 [degF] Dr. Gagandeep Barclay Work Phone: [facility] Work Phone: 12-02-2021 15:00-0400 Diastolic blood pressure 64 mm[Hg] Dr. Gagandeep Barclay Work Phone: [facility] Work Phone: 12-02-2021 15:00-0400 Heart rate 52 /min Dr. Gagandeep Barclay Work Phone: [facility] Work Phone: 12-02-2021 15:00-0400 Respiratory rate 16 /min Dr. Gagandeep Barclay Work Phone: [facility] Work Phone: 12-02-2021 15:00-0400 SaO2% (BldA) [Mass fraction] 93 % Dr. Gagandeep Barclay Work Phone: [facility] Work Phone: 12-02-2021 15:00-0400 Systolic blood pressure 115 mm[Hg] Dr. Gagandeep Barclay Work Phone: [facility] Work Phone: 12-01-2021 18:19-0400 Body height 185.[address] Gagandeep Barclay Work Phone: [facility] Work Phone: 12-01-2021 18:19-0400 Body mass index (BMI) [Ratio] 46.3 kg/m2 Dr. Gagandeep Barclay Work Phone: [facility] Work Phone: 12-01-2021 18:19-0400 Body weight 159.[address] Gagandeep Barclay Work Phone: [facility] Work Phone: 12-01-2021 17:48-0400 Body temperature 98.8 [degF] Dr. Gagandeep Barclay Work Phone: [facility] Work Phone: 12-01-2021 17:48-0400 Diastolic blood pressure 92 mm[Hg] Dr. Gagandeep Barclay Work Phone: [facility] Work Phone: 12-01-2021 17:48-0400 Heart rate 69 /min Dr. Gagandeep Barclay Work Phone: [facility] Work Phone: 12-01-2021 17:48-0400 Respiratory rate 16 /min Dr. Gagandeep Barclay Work Phone: [facility] Work Phone: 12-01-2021 17:48-0400 SaO2% (BldA) [Mass fraction] 97 % Dr. Gagandeep Barclay Work Phone: [facility] Work Phone: 12-01-2021 17:48-0400 Systolic blood pressure 188 mm[Hg] Dr. Gagandeep Barclay Work Phone: [facility] Work Phone: 12-01-2021 12:09-0400 Body height 185.[address] Gagandeep Barclay Work Phone: [facility] Work Phone: 12-01-2021 12:09-0400 Body mass index (BMI) [Ratio] 47.2 kg/m2 Dr. Gagandeep Barclay Work Phone: [facility] Work Phone: 12-01-2021 12:09-0400 Body weight 162.[address] Gagandeep Barclay Work Phone: [facility] Work Phone: 09-06-2021 11:28-0400 Body temperature 98.4 [degF] [facility] Work Phone: 09-06-2021 11:28-0400 Diastolic blood pressure 80 mm[Hg] [facility] Work Phone: 09-06-2021 11:28-0400 Heart rate 53 /min [facility] Work Phone: 09-06-2021 11:28-0400 Respiratory rate 16 /min [facility] Work Phone: 09-06-2021 11:28-0400 SaO2% (BldA) [Mass fraction] 97 % [facility] Work Phone: 09-06-2021 11:28-0400 Systolic blood pressure 159 mm[Hg] [facility] Work Phone: 09-06-2021 09:59-0400 Body height 180.34 cm [facility] Work Phone: 09-06-2021 09:59-0400 Body mass index (BMI) [Ratio] 50.4 kg/m2 [facility] Work Phone: 09-06-2021 09:59-0400 Body weight 164 kg [facility] Work Phone: 07-19-2021 08:40-0400 Body temperature 97.7 [degF] [facility] Work Phone: 07-19-2021 08:40-0400 Diastolic blood pressure 72 mm[Hg] [facility] Work Phone: 07-19-2021 08:40-0400 Heart rate 64 /min [facility] Work Phone: 07-19-2021 08:40-0400 Respiratory rate 16 /min [facility] Work Phone: 07-19-2021 08:40-0400 SaO2% (BldA) [Mass fraction] 99 % [facility] Work Phone: 07-19-2021 08:40-0400 Systolic blood pressure 111 mm[Hg] [facility] Work Phone: 07-19-2021 07:00-0400 Body mass index (BMI) [Ratio] 50 kg/m2 [facility] Work Phone: 07-19-2021 07:00-0400 Body weight 162.8 kg [facility] Work Phone: 06-07-2021 09:39-0400 Body temperature 99 [degF] [facility] Work Phone: 06-07-2021 09:39-0400 Diastolic blood pressure 65 mm[Hg] [facility] Work Phone: 06-07-2021 09:39-0400 Heart rate 62 /min [facility] Work Phone: 06-07-2021 09:39-0400 Respiratory rate 16 /min [facility] Work Phone: 06-07-2021 09:39-0400 SaO2% (BldA) [Mass fraction] 100 % [facility] Work Phone: 06-07-2021 09:39-0400 Systolic blood pressure 113 mm[Hg] [facility] Work Phone: 06-07-2021 08:12-0400 Body mass index (BMI) [Ratio] 49.6 kg/m2 [facility] Work Phone: 06-07-2021 08:12-0400 Body weight 161.4 kg [facility] Work Phone: Encounters Encounter Date Encounter Type Care Provider Facility Start: 01-10-2025 End: 01-10-2025 Minor Procedure AKSHAT SAWYER REGENERATOR OPERATOR-MANUFACTURING TECHNOLOGY ANALYST [facility] Start: 01-10-2025 End: 01-10-2025 ambulatory AKSHAT SAWYER REGENERATOR OPERATOR-MANUFACTURING TECHNOLOGY ANALYST Facility:[facility] Start: 09-23-2024 End: 09-23-2024 ambulatory GAGANDEEP BARCLAY DO Facility:[facility] Start: 09-23-2024 End: 09-23-2024 Patient encounter procedure GAGANDEEP BARCLAY DO [facility] Start: 09-23-2024 End: 09-23-2024 Well adult monitoring check done GAGANDEEP BARCLAY DO [facility] Start: 08-07-2024 End: 08-11-2024 ambulatory GAGANDEEP BARCLAY DO Facility:A Start: 06-21-2024 End: 06-21-2024 ambulatory BRENT VILLATORO REGENERATOR OPERATOR-MANUFACTURING TECHNOLOGY ANALYST Facility:[facility] Start: 04-18-2024 End: 04-18-2024 ambulatory GAGANDEEP BARCLAY DO Facility[facility] Start: 04-18-2024 End: 04-18-2024 Patient encounter procedure GAGANDEEP BARCLAY DO [facility] Start: 04-15-2024 End: 04-15-2024 ambulatory GAGANDEEP BARCLAY DO Facility:[facility] Start: 04-15-2024 End: 04-15-2024 Patient encounter procedure GAGANDEEP BARCLAY DO [facility] Start: 04-11-2024 End: 04-11-2024 ambulatory GAGANDEEP E BARCLAY DO Facility:[facility] Start: 04-11-2024 End: 04-11-2024 Patient encounter procedure SAMANTHA RONY REGENERATOR OPERATOR-MANUFACTURING TECHNOLOGY ANALYST [facility] Start: 04-09-2024 End: 04-13-2024 ambulatory GAGANDEEP E BARCLAY DO Facility:[facility] Start: 04-09-2024 End: 04-13-2024 Encounter for general adult medical examination without abnormal findings GAGANDEEP E BARCLAY DO Facility:[facility] Start: 04-09-2024 End: 04-13-2024 Outreach Lab GAGANDEEP E BARCLAY DO [facility] Start: 03-22-2024 End: 03-22-2024 ambulatory GAGANDEEP E BARCLAY DO Facility:[facility] Start: 03-22-2024 End: 03-22-2024 Minor Procedure BEN AUGUST MD [facility] Start: 02-05-2024 End: 02-09-2024 ambulatory GAGANDEEP E BARCLAY DO Facility:A Start: 01-11-2024 ambulatory [place] Barclay Facility: [facility] Start: 01-11-2024 End: 01-11-2024 ambulatory Gagandeep Barclay Facility:[facility] Start: 01-04-2024 ambulatory Efewongbe Oleghe Facili ty:[facility] Start: 01-01-2024 ambulatory [facility] Facility: [facility] Start: 01-01-2024 End: 01-01-2024 ambulatory Gagandeep Barclay Facility:[facility] Start: 12-28-2023 ambulatory Efewongbe Oleghe Facili ty:[facility] Start: 12-19-2023 End: 12-19-2023 ambulatory Gagandeep Barclay Facility:[facility] Start: 12-18-2023 End: 12-18-2023 ambulatory Gagandeep Barclay Facility:[facility] Start: 12-14-2023 ambulatory Gagandeep Barclay Facility: [facility] Start: 12-07-2023 ambulatory Gagandeep Barclay Facility: [facility] Start: 11-30-2023 ambulatory Gagandeep Barclay Facility: [facility] Start: 11-23-2023 ambulatory Gagandeep Barclay Facility: [facility] Start: 11-22-2023 ambulatory GAGANDEEP BARCLAY DO Faci lity:[facility] Start: 11-22-2023 End: 11-22-2023 Patient encounter procedure GAGANDEEP BARCLAY DO [facility] Start: 11-22-2023 End: 11-22-2023 Well adult monitoring check done GAGANDEEP BARCLAY DO [facility] Start: 11-16-2023 End: 11-18-2023 ambulatory Gagandeep Barclay Facility:[facility] Start: 11-09-2023 ambulatory Gagandeep Barclay Facility: [facility] Start: 11-06-2023 ambulatory GAGANDEEP BARCLAY DO Faci lity:[facility] Start: 10-30-2023 End: 10-30-2023 ambulatory BENEDICT HOYT MD Facility:[facility] Start: 10-30-2023 End: 10-30-2023 Patient encounter procedure BENEDICT HOYT MD [facility] Start: 10-26-2023 ambulatory Gagandeep Barclay Facility: [facility] Start: 10-21-2023 End: 10-21-2023 ambulatory GAGANDEEP BARCLAY DO Facility:[facility] Start: 10-21-2023 End: 10-21-2023 Patient encounter procedure GAGANDEEP BARCLAY DO [facility] Start: 10-20-2023 ambulatory GAGANDEEP BARCLAY DO Faci lity:[facility] Start: 10-20-2023 Encounter for genera l adult medical examination without abnormal findings GAGANDEEP BARCLAY DO Facility:[facility] Start: 10-20-2023 End: 10-24-2023 Outreach Lab GAGANDEEP BARCLAY DO [facility] Start: 09-23-2023 End: 09-23-2023 Emergency department patient visit ZEFERINO COLORADO DO [facility] Start: 09-19-2023 End: 09-23-2023 ambulatory GAGANDEEP E BARCLAY DO Facility[facility] Start: 09-19-2023 End: 09-23-2023 Outreach Lab GAGANDEEP E BARCLAY DO [facility] Start: 05-24-2023 End: 05-24-2023 ambulatory GAGANDEEP E BARCLAY DO Facility[facility] Start: 05-24-2023 End: 05-24-2023 Patient encounter procedure BRENT VILLATORO REGENERATOR OPERATOR-MANUFACTURING TECHNOLOGY ANALYST [facility] Start: 04-19-2023 End: 04-19-2023 ambulatory GAGANDEEP E BARCLAY DO Facility[facility] Start: 04-19-2023 End: 04-19-2023 Patient encounter procedure BRENT VILLATORO REGENERATOR OPERATOR-MANUFACTURING TECHNOLOGY ANALYST [facility] Start: 04-17-2023 End: 04-17-2023 ambulatory GAGANDEEP E BARCLAY DO Facility:A Start: 04-14-2023 End: 04-18-2023 ambulatory GAGANDEEP E BARCLAY DO Facility:A Start: 04-14-2023 End: 04-14-2023 ambulatory GAGANDEEP E BARCLAY DO Facility:A Start: 04-12-2023 End: 04-12-2023 ambulatory GAGANDEEP E BARCLAY DO Facility:A Start: 04-12-2023 End: 04-12-2023 Patient encounter procedure MARS ESQUIVEL REGENERATOR OPERATOR-MANUFACTURING TECHNOLOGY ANALYST [facility] Start: 03-28-2023 End: 03-28-2023 ambulatory AZALIA [place] MD Facility:A Start: 03-28-2023 End: 03-28-2023 SAME DAY STAY ANTHONY FERNÁNDEZ MD [facility] Start: 03-28-2023 End: 03-28-2023 Well adult monitoring check done ANTHONY FERNÁNDEZ MD [facility] Start: 03-24-2023 End: 03-24-2023 ambulatory Gagandeep Barclay Facility:[facility] Start: 03-22-2023 End: 03-22-2023 ambulatory GAGANDEEP E BARCLAY DO [facility] Start: 03-15-2023 End: 03-15-2023 ambulatory GAGANDEEP E BARCLAY DO Facility:A Start: 03-15-2023 End: 03-15-2023 ambulatory GAGANDEEP E BARCLAY DO Facility:A Start: 03-09-2023 End: 03-09-2023 ambulatory GAGANDEEP E BARCLAY DO Facility[facility] Start: 02-15-2023 End: 02-15-2023 ambulatory BRENT VILLATORO REGENERATOR OPERATOR-MANUFACTURING TECHNOLOGY ANALYST Facility:[facility] Start: 02-15-2023 End: 02-15-2023 Patient encounter procedure BRENT VILLATORO REGENERATOR OPERATOR-MANUFACTURING TECHNOLOGY ANALYST [facility] Start: 02-13-2023 End: 02-13-2023 ambulatory GAGANDEEP E BARCLAY DO Facility:A Start: 02-13-2023 End: 02-13-2023 Patient encounter procedure ANTHONY FERNÁNDEZ MD [facility] Start: 01-16-2023 End: 01-16-2023 ambulatory POLO ROD MD Facility[facility] Start: 01-16-2023 End: 01-16-2023 Patient encounter procedure POLO ROD MD [facility] Start: 01-09-2023 End: 01-09-2023 ambulatory POLO ROD MD Facility[facility] Start: 01-09-2023 End: 01-09-2023 SAME DAY STAY POLO ROD MD [facility] Start: 12-21-2022 End: 12-21-2022 ambulatory BRENT VILLATORO REGENERATOR OPERATOR-MANUFACTURING TECHNOLOGY ANALYST Facility:[facility] Start: 11-23-2022 End: 11-23-2022 Patient encounter procedure BRENT VILLATORO REGENERATOR OPERATOR-MANUFACTURING TECHNOLOGY ANALYST [facility] Start: 10-03-2022 End: 10-03-2022 SAME DAY STAY BRENT VILLATORO REGENERATOR OPERATOR-MANUFACTURING TECHNOLOGY ANALYST [facility] Start: 08-24-2022 End: 08-24-2022 Patient encounter procedure BRENT VILLATORO REGENERATOR OPERATOR-MANUFACTURING TECHNOLOGY ANALYST [facility] Start: 08-01-2022 End: 08-01-2022 SAME DAY STAY POLO ROD MD [facility] Start: 07-20-2022 End: 07-20-2022 Patient encounter procedure BRENT VILLATORO REGENERATOR OPERATOR-MANUFACTURING TECHNOLOGY ANALYST [facility] Start: 05-23-2022 End: 05-23-2022 Patient encounter procedure GAGANDEEP BARCLAY DO [facility] Start: 05-09-2022 End: 05-09-2022 [facility] Start: 05-09-2022 End: 05-09-2022 ambulatory [facility] Work Phone: Start: 02-07-2022 End: 02-07-2022 Admission to same day surgery center Dr[facility] Gagandeep Barcl[facility] Start: 02-07-2022 End: 02-07-[address] Gagandeep Barclay Work Phone: [facility] Work Phone: Start: 12-28-2021 End: 12-28-[address] Gagandeep Barclay Work Phone: [facility] Start: 12-20-2021 End: 12-20-2021 Admission to same day surgery center Dr. Gagandeep Barclay Work Phone: [facility] Start: 12-07-2021 End: 12-07-2021 Patient encounter procedure GAGANDEEP BARCLAY DO [facility] Start: 12-02-2021 Non-patient / Non-visit Dr. Charlie Barclay Work Phone: [facility] Start: 12-01-2021 End: 12-02-2021 Evaluation and management of inpatient Dr. Gagandeep Barclay Work Phone: [facility]-Medical Surgical 3 Start: 12-01-2021 End: 12-02-[address] Gagandeep Barclay Work Phone: [facility] Work Phone: Start: 12-01-2021 Non-patient / Non-visit Dr. Charlie Barclay Work Phone: [facility] Start: 11-23-[address] Gagandeep Barclay Work Phone: [facility]-Physical Therapy Start: 09-06-2021 End: 09-06-2021 Admission to same day surgery center [facility] Start: 07-19-2021 End: 07-19-2021 Admission to same day surgery [facility] Start: 06-07-2021 End: 06-07-2021 Admission to same day surgery [facility] Start: 04-07-2014 End: 04-07-2014 Admission to establishment Georgia Salter Work Phone: [facility] Start: 04-07-2014 ambulatory Georgia Gonzales Work Phone: PreAdmission Testing Procedures Date Procedure Procedure Detail Performing Clinician Start: 01-10-2025 PM Inj Spine L/S Wit h Imaging SN 1 AKSHAT SAWYER REGENERATOR OPERATOR-MANUFACTURING TECHNOLOGY ANALYST Comment on above: auto-populated from documented surgical case Start: 06-21-2024 PM Inj Spine L/S Wit h Imaging SN 1 GAGANDEEP BARCLAY DO Comment on above: auto-populated from documented surgical case Start: 06-21-2024 PM Inj Spine L/S Wit h Imaging SN 2 AKSHAT SAWYER REGENERATOR OPERATOR-MANUFACTURING TECHNOLOGY ANALYST Comment on above: auto-populated from documented surgical case Start: 03-22-2024 PM Major Joint Bursa Inj/Aspiration (AOH) SN 1 BEN AUGUST MD Comment on above: auto-populated from documented surgical case Start: 03-22-2024 PM Major Joint Bursa Inj/Aspiration (AOH) SN 2 BEN AUGUST MD Comment on above: auto-populated from documented surgical case Start: 03-22-2024 PM Major Joint Bursa Inj/Aspiration (AOH) SN 3 GAGANDEEP BARCLAY DO Comment on above: auto-populated from documented surgical case Start: 03-22-2024 PM Major Joint Bursa Inj/Aspiration (AOH) SN 4 AKSHAT SAWYER REGENERATOR OPERATOR-MANUFACTURING TECHNOLOGY ANALYST Comment on above: auto-populated from documented surgical case Start: 03-28-2023 Implantation of neurostimulator device BRENT SHAUNA REGENERATOR OPERATOR-MANUFACTURING TECHNOLOGY ANALYST Start: 10-03-2022 PM Inj Spine L/S Wit h Imaging SN 1 BRENT SHAUNA REGENERATOR OPERATOR-MANUFACTURING TECHNOLOGY ANALYST Comment on above: auto-populated from documented surgical case Start: 10-03-2022 PM Inj Spine L/S Wit h Imaging SN 3 BEN AUGUST MD Comment on above: auto-populated from documented surgical case Start: 10-03-2022 PM Inj Spine L/S Wit h Imaging SN 4 GAGANDEEP BARCLAY DO Comment on above: auto-populated from documented surgical case Start: 10-03-2022 PM Inj Spine L/S Wit h Imaging SN 5 AKSHAT SAUCEDAON REGENERATOR OPERATOR-MANUFACTURING TECHNOLOGY ANALYST Comment on above: auto-populated from documented surgical case Start: 08-01-2022 PM Inj Spine L/S Wit h Imaging SN 1 POLO ROD MD Comment on above: auto-populated from documented surgical case Start: 08-01-2022 PM Inj Spine L/S Wit h Imaging SN 2 BRENT SHAUNA REGENERATOR OPERATOR-MANUFACTURING TECHNOLOGY ANALYST Comment on above: auto-populated from documented surgical case Start: 08-01-2022 PM Inj Spine L/S Wit h Imaging SN 4 BEN AUGUST MD Comment on above: auto-populated from documented surgical case Start: 08-01-2022 PM Inj Spine L/S Wit h Imaging SN 5 GAGANDEEP BARCLAY DO Comment on above: auto-populated from documented surgical case Start: 08-01-2022 PM Inj Spine L/S Wit h Imaging SN 6 AKSHAT SAWYER REGENERATOR OPERATOR-MANUFACTURING TECHNOLOGY ANALYST Comment on above: auto-populated from documented surgical case Start: 05-09-2022 Injection of spinal epidural space Start: 05-09-2022 Injection using fluoroscopic guidance Start: 05-09-2022 Local anesthetic sac ral epidural block Start: 02-07-2022 Injection of spinal epidural space Start: 02-07-2022 Injection using fluoroscopic guidance Start: 02-07-2022 Local anesthetic sac ral epidural block Dr. Gagandeep Barclay Work Phone: Start: 12-20-2021 Injection of spinal epidural space Dr. Gagandeep Barclay Work Phone: Start: 12-20-2021 Injection using fluoroscopic guidance Dr. Gagandeep Barclay Work Phone: Start: 12-01-2021 Plain X-ray of tibia and fibula Dr. Gagandeep Barclay Work Phone: Start: 12-01-2021 Radiologic examinati on of knee Dr. Gagandeep Barclay Work Phone: Start: 12-01-2021 X-ray of both feet Dr. Gagandeep Barclay Work Phone: Start: 09-06-2021 Radio Frequency Abla tion (Right) Start: 09-06-2021 Fluoroscopic guidance Selina Barclay Work Phone: Start: 09-06-2021 X-ray of lumbar spin e, two or three views Dr. Gagandeep Barclay Work Phone: Start: 07-19-2021 Fluoroscopic guidance Start: 07-19-2021 Radiography of sacrococcygeal spine Start: 06-07-2021 Injection of spinal epidural space Start: 06-07-2021 Injection using fluoroscopic guidance Start: 03-03-2019 History of placement of stent for coronary artery disease History of coronary artery stent placement Start: 03-03-2019 Cardiac catheterization ANTHONY FERNÁNDEZ MD Start: 03-03-2019 Stent in branch of r ight coronary artery (finding) ANTHONY FERNÁNDEZ MD Start: 04-22-2016 Revision of total hi p arthroplasty GAGANDEEP BARCLAY DO Comment on above: Left Hip, Applicatio n of Incisional Wound VAC Start: 01-21-2016 Arthroplasty GAGANDEEP VICTOR DO Comment on above: Left Hip, Prostalac spacer placement, cemented freedom liner acetabulum Start: 06-29-2015 Aspiration of soft tissue GAGANDEEP BARCLAY DO Comment on above: Lateral aspect of pr oximal left thigh Several different pr ocedures on this left thigh for infection of abcess, wound VAC Start: 12-29-2011 Arthroplasty GAGANDEEP VICTOR DO Comment on above: Revision of Left Hip Start: 05-02-2011 Discectomy of spine CHARLIEO FLORINA BARCLAY DO Comment on above: and Fusion L5-S1 and L4-L5 Start: 03-28-2010 Jeet Salter Work Phone: Start: 11-10-2005 Total replacement of hip GAGANDEEP BARCLAY DO Comment on above: Left Start: 08-29-2001 Arthroscopy of knee SCO FLORINA DENY PINZON Comment on above: Right knee Start: 01-17-1999 Varicose vein ligati on and stripping GAGANDEEP BARCLAY DO Circumcision GAGANDEEP Macdonald History of placement of stent for coronary artery disease S/P coronary artery stent placement( Confirmed ) GAGANDEEP BARCLAY DO Injection GAGANDEEP Macdonald Thumb surgery ANTHONY FERNÁNDEZ MD Plan of Treatment Date Care Activity Detail Author Start: 05-09-2022 Anes dx/ther nerve block/injection prone pos ANESTH N BLOCK/INJ PRONE [facility] Start: 05-09-2022 Njx dx/ther sbst intrlmnr lmbr/sac w/img gdn NJX INTERLAMINAR LMBR/SAC [facility] Start: 05-09-2022 Injection of spinal epidural space [facility] Start: 05-09-2022 Injection using fluoroscopic guidance [facility] Start: 05-09-2022 Prothrombin time [facility] Start: 05-09-2022 Patient discharge [facility] Start: 02-07-2022 Anes dx/ther nerve block/injection prone pos ANESTH N BLOCK/INJ PRONE [facility] Start: 02-07-2022 Njx dx/ther sbst intrlmnr lmbr/sac w/img gdn NJX INTERLAMINAR LMBR/SAC [facility] Start: 02-07-2022 Injection of spinal epidural space [facility] Work Phone: Start: 02-07-2022 Injection using fluoroscopic guidance [facility] Work Phone: Start: 02-07-2022 Patient discharge [facility] Start: 12-20-2021 Anes dx/ther nerve block/injection prone pos ANESTH N BLOCK/INJ PRONE [facility] Work Phone: Start: 12-20-2021 Njx dx/ther sbst intrlmnr lmbr/sac w/img gdn NJX INTERLAMINAR LMBR/SAC [facility] Work Phone: Start: 12-20-2021 Patient discharge [facility] Work Phone: Start: 12-03-2021 [facility] Work Phone: Start: 12-02-2021 Patient discharge [facility] Work Phone: Start: 12-02-2021 Care planning and problem solving actions [facility] Work Phone: Start: 12-01-2021 Assessment of risk of venous thromboembolism [facility] Work Phone: Start: 12-01-2021 Insertion of catheter into peripheral vein [facility] Work Phone: Start: 12-01-2021 Providing care according to standard [facility] Work Phone: Start: 12-01-2021 Referral to occupational therapist [facility] Work Phone: Start: 12-01-2021 Referral to service [facility] Work Phone: Start: 12-01-2021 [facility] Work Phone: Start: 12-01-2021 Following clinical pathway protocol [facility] Work Phone: Start: 12-01-2021 Verification routine [facility] Work Phone: Start: 12-01-2021 Admission procedure [facility] Work Phone: Start: 09-06-2021 Anes dx/ther nerve block/injection prone pos ANESTH N BLOCK/INJ PRONE [facility] Work Phone: Start: 09-06-2021 Dstr nrolytc agnt parverteb fct sngl lmbr/sacral DESTROY LUMB/SAC FACET JNT [facility] Work Phone: Start: 06-20-2022 Fluoroscopic guidance O.R. Fluoro for C-Arm [facility] Work Phone: Start: 09-06-2021 X-ray of lumbar spine, two or three views Lumbar Spine 2 or 3 Views [facility] Work Phone: Start: 09-06-2021 Patient discharge [facility] Work Phone: Start: 07-19-2021 Anes dx/ther nerve block/injection prone pos ANESTH N BLOCK/INJ PRONE [facility] Work Phone: Start: 07-19-2021 Dstr nrolytc agnt parverteb fct sngl lmbr/sacral DESTROY LUMB/SAC FACET JNT [facility] Work Phone: Start: 07-19-2021 Patient discharge [facility] Work Phone: Start: 06-07-2021 Njx dx/ther sbst intrlmnr lmbr/sac w/img gdn NJX INTERLAMINAR LMBR/SAC [facility] Work Phone: Start: 06-07-2021 Patient discharge [facility] Work Phone: Start: 11-18-2020 Influenza vaccination INFLUENZA (#1) [facility] Start: 06-29-2014 PROSTATE CANCER SCREENING DISCUSSION PROSTATE CANCER SCREENING DISCUSSION [facility] Start: 03-28-2011 Screening for malignant neoplasm of colon [facility] Start: 06-29-2009 Screening for malignant neoplasm of colon [facility] Start: 06-29-2009 SHINGRIX VACCINE (1 of 2) SHINGRIX VACCINE (1 of 2) [facility] Start: 06-29-2004 DIABETES SCREEN DIABETES SCREEN [facility] Start: 06-29-1994 LIPID SCREEN LIPID SCREEN [facility] Start: 06-29-1978 Urine microalbumin profile DTAP,TDAP,TD (1 - Tdap) [facility] Start: 06-29-1977 HEPATITIS C SCREENING HEPATITIS C SCREENING [facility] Start: 06-29-1977 HIV SCREENING HIV SCREENING [facility] Start: 1971 Adult depression screening assessment DEPRESSION SCREENING [facility] Start: 1971 COVID-19 VACCINE (1) [facility] Alanine aminotransfe rase [Enzymatic activity/volume] in Serum or Plasma [facility] Work Phone: Albumin [Mass/volume ] in Serum or Plasma [facility] Work Phone: Alkaline phosphatase [Enzymatic activity/volume] in Serum or Plasma [facility] Work Phone: Anion gap measurement [facility] Work Phone: Aspartate aminotrans ferase [Enzymatic activity/volume] in Serum or Plasma [facility] Work Phone: Bilirubin, total measurement [facility] Work Phone: BUN/Creatinine ratio [facility] Work Phone: Calcium [Mass/volume ] in Serum or Plasma [facility] Work Phone: Carbon dioxide, tota l [Moles/volume] in Serum or Plasma [facility] Work Phone: Chloride [Moles/volu me] in Serum or Plasma [facility] Work Phone: Creatinine [Moles/vo lume] in Serum or Plasma [facility] Work Phone: Glucose [Mass/volume ] in Serum or Plasma [facility] Work Phone: Hematocrit [Volume Fraction] of Blood [facility] Work Phone: Hemoglobin [Mass/vol ume] in Blood [facility] Work Phone: INR in Blood by Coag ulation assay [facility] Leukocytes [#/volume ] in Blood [facility] Work Phone: Mean corpuscular hem oglobin concentration determination [facility] Work Phone: Mean corpuscular hem oglobin determination [facility] Work Phone: Measurement of renal function [facility] Work Phone: Neutrophil count [facility] Work Phone: Neutrophil percent differential count [facility] Work Phone: Patient referral [facility] Work Phone: Platelets [#/volume] in Blood [facility] Work Phone: Potassium [Moles/vol ume] in Serum or Plasma [facility] Work Phone: Red blood cell count [facility] Work Phone: Red cell distributio n width determination [facility] Work Phone: Sodium [Moles/volume ] in Serum or Plasma [facility] Work Phone: Total protein measurement [facility] Work Phone: Urea nitrogen [Mass/ volume] in Serum or Plasma [facility] Work Phone: Immunizations Immunization Date Immunization Notes Care Provider Lilly patterson 04-09-2024 influenza, injectabl e, quadrivalent, contains preservative; Translations: [Fluarix PF Prefilled Syringe ] SAMANTHA URIBE REGENERATOR OPERATOR-MANUFACTURING TECHNOLOGY ANALYST [facility] 03-09-2023 tetanus toxoid, redu lupis diphtheria toxoid, and acellular pertussis vaccine, adsorbed ANTHONY FERNÁNDEZ MD [facility] Comment on above: Early/Late Reason: E jay/Late Reason: Task Rescheduled 02-28-2023 influenza, injectabl e, quadrivalent, contains preservative; Translations: [Fluarix PF Quadrivalent ] ANTHONY FERNÁNDEZ MD [facility] 02-28-2023 tetanus toxoid, redu lupis diphtheria toxoid, and acellular pertussis vaccine, adsorbed; Translations: [Boostrix (Tdap)] MARS ESQUIVEL REGENERATOR OPERATOR-MANUFACTURING TECHNOLOGY ANALYST [facility] 05-24-2022 COVID-19, mRNA, LNP- S, bivalent booster, PF, 30 mcg/0.3 mL dose; Translations: [[employer] COVID-19 (12y+) Bivalent Booster Vaccine PF] BRENT VILLATORO REGENERATOR OPERATOR-MANUFACTURING TECHNOLOGY ANALYST [facility] 05-24-2022 SARSCoV2 mRNA([id number]+)biv al vac; Translations: [[employer] COVID-19 (12y+) Bivalent Booster Vaccine PF] ANTHONY FERNÁNDEZ MD [facility] 05-24-2022 Pneumococcal conjuga te PCV20, polysaccharide [id number] conjugate, adjuvant, PF; Translations: [Prevnar 20] BRENT VILLATORO REGENERATOR OPERATOR-MANUFACTURING TECHNOLOGY ANALYST [facility] 02-28-2022 influenza, injectabl e, quadrivalent, contains preservative; Translations: [Fluarix PF Quadrivalent ] GAGANDEEP BARCLAY DO [facility] 02-28-2022 zoster vaccine recombinant; Translations: [Shingrix] GAGANDEEP Bundle DO [facility] 06-21-2021 zoster vaccine recombinant; Translations: [Shingrix] GAGANDEEP BARCLAY DO [facility] 03-24-2021 [facility]-22-2021 COVID-19, mRNA, LNP- S, PF, 100 mcg or 50 mcg dose; Translations: [Moderna COVID-19 Vaccine] GAGANDEEP BARCLAY DO [facility] 08-13-2020 SARS-CoV-2 (COVID-19 ) Ad26 vaccine, recombinant GAGANDEEP BARCLAY DO [facility] Comment on above: Result Comment: 2021: [id number] 11-22-2019 influenza, injectabl e, quadrivalent, preservative free; Translations: [Fluarix PF Quadrivalent ] GAGANDEEP BARCLAY DO [facility] 02-18-2019 influenza, injectabl e, quadrivalent, preservative free; Translations: [Fluarix PF Quadrivalent ] GAGANDEEP BARCLAY DO [facility] 02-26-2018 influenza virus vacc ine, unspecified formulation GAGANDEEP BARCLAY DO [facility] 12-18-2017 Influenza virus vaccine [facility] 12-18-2017 pneumococcal conjuga te vaccine, 13 valent [facility] 12-21-2016 influenza virus vacc ine, unspecified formulation GAGANDEEP BARCLAY DO [facility] 12-21-2016 pneumococcal polysaccharide vaccine, 23 valent GAGANDEEP DENY DO [facility] 02-09-2015 influenza virus vacc ine, unspecified formulation GAGANDEEP BARCLAY DO [facility] 12-13-2012 influenza virus vacc ine, unspecified formulation GAGANDEEP BARCLAY DO [facility] 06-18-2012 tetanus toxoid, redu lupis diphtheria toxoid, and acellular pertussis vaccine, adsorbed GAGANDEEP BARCLAY DO [facility] Payers Date Payer Category Payer Medicare [id number] 2024 Medicare [id number] 2023 Private Health Insurance [id number] 2023 Self-pay [id number] 2021 Unknown [id number] 2015 Unknown [id number] 2011 Unknown MMO ZZZMMO SUPER MED PLUS [id number] 2011-2018 PPO [id number] 2001 Self-pay SELF PAY HSP/MED ICAL SELF PAY [id number] 2001-2015 SELF PAY Indemnity [id number]. [id number] 1959 Unknown [id number] 2.16.840.1.172940.3.579.2. 1959 Unknown [id number] 2.16.840.1.692824.3.579.2 1959 Unknown [id number] 2.16.840.1.182792.3.579.2 1959 Unknown [id number] 2.16.840.1.425087.3.579.2 1959 Unknown [id number] 2.16.840.1.054057.3.579.2 1959 Unknown [id number] 2.16.840.1.769996.3.579.2 1959 Unknown [id number] 2.16.840.1.234271.3.579.2 1959 Unknown [id number] 2.16.840.1.791681.3.579.2 1959 Unknown [id number] 2.16.840.1.822625.3.579.2 1959 Unknown [id number] 2.16.840.1.583389.3.579.2. 1959 Unknown [id number] 2.16.840.1.828344.3.579.2. 1959 Unknown [id number] 2.16.840.1.553511.3.579.2. 1959 Unknown [id number] 2.16.840.1.206766.3.579.2. 1959 Unknown [id number] 2.16.840.1.278428.3.579.2. 1959 Unknown [id number] 2.16.840.1.522345.3.579.2 1959 Unknown [id number] 2.16.840.1.159665.3.579.2. 1959 Unknown [id number] 2.16.840.1.708345.3.579.2 1959 Unknown [id number] 2.16.840.1.773027.3.579.2. 1959 Unknown [id number] 2.16.840.1.399707.3.579.2 1959 Unknown [id number] 2.16.840.1.438463.3.579.2. 1959 Unknown [id number] 2.16.840.1.324307.3.579.2. 1959 Unknown [id number] 2.16.840.1.610100.3.579.2. 1959 Unknown [id number] 2.16.840.1.774943.3.579.2. 1959 Unknown [id number] 2.16.840.1.441664.3.579.2. 1959 Unknown [id number] 2.16.840.1.335338.3.579.2. 1959 Unknown [id number] 2.16.840.1.288505.3.579.2. 627 1959 Unknown [id number] 2.16.840.1.401876.3.579.2. 1959 Unknown [id number] 2.16.840.1.806003.3.579.2. 1959 Unknown [id number] 2.16.840.1.359216.3.579.2. 1959 Unknown [id number] 2.840.1.395153.3.579.2. 1959 Unknown [id number] 2.840.1.316090.3.579.2. 1959 Unknown [id number] 2.840.1.699567.3.579.2. 1959 Unknown [id number] 2.840.1.986927.3.579.2. 1959 Unknown [id number] 2.840.1.121381.3.579.2. 1959 Unknown [id number] 2.840.1.289513.3.579.2. 1959 Unknown [id number] 2.840.1.766241.3.579.2. 627 Unknown [id number] 2840.1.775235.3.579.2. 462 Unknown [id number] 2.840.1.851300.3.579.2. 462 Unknown [id number] 2.16840.1.757923.3.579.2. 462 Unknown [id number] 2.16840.1.109831.3.579.2. 462 Unknown [id number] 2.16.840.1.747953.3.579.2. 462 Unknown [id number] 2.16840.1.016412.3.579.2. 462 Unknown [id number] 2.16.840.1.223445.3.579.2. 462 Unknown [id number] 2.16.840.1.583564.3.579.2. 462 Unknown [id number] 2.16.840.1.222059.3.579.2. 462 Unknown [id number] 2.16.840.1.918537.3.579.2. 462 Unknown [id number] 2.16.840.1.611694.3.579.2. 462 Unknown [id number] 2.16.840.1.448848.3.579.2. 462 Unknown [id number] 2.16.840.1.410258.3.579.2. 462 Unknown [id number] 2.16.840.1.466876.3.579.2. 462 Unknown [id number] 2.16840.1.436674.3.579.2. 462 Unknown [id number] 2.16.840.1.356574.3.579.2. 462 Unknown [id number] 2.16840.1.643086.3.579.2. 462 Social History Date Type Detail Facility Start: 05-07-2011 Tobacco smoking stat [facility] Current every day smoker [facility] History of tobacco use Cigarette Smoker [facility] Work Phone: Start: 05-07-2011 Cigarettes smoked current (pack per day) - Reported [facility] Start: 05-07-2011 Alcohol intake Current non-dr delilah of alcohol (finding) [facility] Start: 1960 Sex Assigned At Not on file C [facility] Start: 06-04-2021 End: 12-28-2021 Tobacco smoking status NHIS Unknown if ever smoked [facility] Start: 09-15-2020 None [facility] Start: 03-03-2019 Spouse/ Signif icant Other [facility] Start: 09-15-2020 Non-smoker [facility] Start: 1960 Sex Assigned At Male A [facility] Start: 09-26-2018 Tobacco smoking status Light t obacco smoker (finding) [facility] Comment on above: Tobacco/smoke exposu re - daily Start: 03-15-2023 End: 04-14-2023 Tobacco smoking status Heavy tobacco smoker (finding) [facility] Comment on above: Tobacco/smoke exposu re - daily Sexual Orientation [facility] Start: 09-12-2018 Sex Male (finding) [facility] Start: 01-10-2025 Not applicable (qualifier value) [facility] Medical Equipment Procedure Code Equipment Code Equipment Origin al Text Equipment Identifier Dates Spinal Cord Stim ulator Percutaneous Unknown 03/28/23 Unknown Unknown FDA Start: 03-28-2023 Spinal Cord Stim ulator Percutaneous Unknown 03/28/23 Unknown Unknown FDA Start: 03-28-2023 Spinal Cord Stim ulator Percutaneous Unknown 03/28/23 Unknown Unknown FDA Start: 03-28-2023 Spinal Cord Stim ulator Percutaneous Unknown 03/28/23 Unknown Unknown FDA Start: 03-28-2023 Spinal Cord Stim ulator Percutaneous Unknown 03/28/23 Unknown Unknown FDA Start: 03-28-2023 Spinal Cord Stim ulator Percutaneous Unknown 03/28/23 Unknown Unknown FDA Start: 03-28-2023 Spinal Cord Stim ulator Percutaneous Unknown 03/28/23 Unknown Unknown FDA Start: 03-28-2023 Spinal Cord Stim ulator Percutaneous Unknown 03/28/23 Unknown Unknown FDA Start: 03-28-2023 Spinal Cord Stim ulator Percutaneous Unknown 03/28/23 Unknown Unknown FDA Start: 03-28-2023 Spinal Cord Stim ulator Percutaneous Unknown 03/28/23 Unknown Unknown FDA Start: 03-28-2023 Spinal Cord Stim ulator Percutaneous Unknown 03/28/23 Unknown Unknown FDA Start: 03-28-2023 Spinal Cord Stim ulator Percutaneous Unknown 03/28/23 Unknown Unknown FDA Start: 03-28-2023 Spinal Cord Stim ulator Percutaneous Unknown 03/28/23 Unknown Unknown FDA Start: 03-28-2023 Spinal Cord Stim ulator Percutaneous Unknown 03/28/23 Unknown Unknown FDA Start: 03-28-2023 Spinal Cord Stim ulator Percutaneous Unknown 03/28/23 Unknown Unknown FDA Start: 03-28-2023 Spinal Cord Stim ulator Percutaneous Unknown 03/28/23 Unknown Unknown FDA Start: 03-28-2023 Spinal Cord Stim ulator Percutaneous Unknown 03/28/23 Unknown Unknown FDA Start: 03-28-2023 Spinal Cord Stim ulator Percutaneous Unknown 03/28/23 Unknown Unknown FDA Start: 03-28-2023 Spinal Cord Stim ulator Percutaneous Unknown 03/28/23 Unknown Unknown FDA Start: 03-28-2023 Spinal Cord Stim ulator Percutaneous Unknown 03/28/23 Unknown Unknown FDA Start: 03-28-2023 Spinal Cord Stim ulator Percutaneous Unknown 03/28/23 Unknown Unknown FDA Start: 03-28-2023 Spinal Cord Stim ulator Percutaneous Unknown 03/28/23 Unknown Unknown FDA Start: 03-28-2023 Spinal Cord Stim ulator Percutaneous Unknown 03/28/23 Unknown Unknown FDA Start: 03-28-2023 Spinal Cord Stim ulator Percutaneous Unknown 03/28/23 Unknown Unknown FDA Start: 03-28-2023 Spinal Cord Stim ulator Percutaneous Unknown 03/28/23 Unknown Unknown FDA Start: 03-28-2023 Spinal Cord Stim ulator Percutaneous Unknown 03/28/23 Unknown Unknown FDA Start: 03-28-2023 Spinal Cord Stim ulator Percutaneous Unknown 03/28/23 Unknown Unknown FDA Start: 03-28-2023 Spinal Cord Stim ulator Percutaneous Unknown 03/28/23 Unknown Unknown FDA Start: 03-28-2023 Spinal Cord Stim ulator Percutaneous Unknown 03/28/23 Unknown Unknown FDA Start: 03-28-2023 Spinal Cord Stim ulator Percutaneous Unknown 03/28/23 Unknown Unknown FDA Start: 03-28-2023 Spinal Cord Stim ulator Percutaneous Unknown 03/28/23 Unknown Unknown FDA Start: 03-28-2023 Spinal Cord Stim ulator Percutaneous Unknown 03/28/23 Unknown Unknown FDA Start: 03-28-2023 Spinal Cord Stim ulator Percutaneous Unknown 03/28/23 Unknown Unknown FDA Start: 03-28-2023 Spinal Cord Stim ulator Percutaneous Unknown 03/28/23 Unknown Unknown FDA Start: 03-28-2023 Spinal Cord Stim ulator Percutaneous Unknown 03/28/23 Unknown Unknown FDA Start: 03-28-2023 Spinal Cord Stim ulator Percutaneous Unknown 03/28/23 Unknown Unknown FDA Start: 03-28-2023 Spinal Cord Stim ulator Percutaneous Unknown 03/28/23 Unknown Unknown FDA Start: 03-28-2023 Spinal Cord Stim ulator Percutaneous Unknown 03/28/23 Unknown Unknown FDA Start: 03-28-2023 Spinal Cord Stim ulator Percutaneous Unknown 03/28/23 Unknown Unknown FDA Start: 03-28-2023 Spinal Cord Stim ulator Percutaneous Unknown 03/28/23 Unknown Unknown FDA Start: 03-28-2023 Spinal Cord Stim ulator Percutaneous Unknown 03/28/23 Unknown Unknown FDA Start: 03-28-2023 Spinal Cord Stim ulator Percutaneous Unknown 03/28/23 Unknown Unknown FDA Start: 03-28-2023 Spinal Cord Stim ulator Percutaneous Unknown 03/28/23 Unknown Unknown FDA Start: 03-28-2023 Spinal Cord Stim ulator Percutaneous Unknown 03/28/23 Unknown Unknown FDA Start: 03-28-2023 Spinal Cord Stim ulator Percutaneous Unknown 03/28/23 Unknown Unknown FDA Start: 03-28-2023 Spinal Cord Stim ulator Percutaneous Unknown 03/28/23 Unknown Unknown FDA Start: 03-28-2023 Spinal Cord Stim ulator Percutaneous Unknown 03/28/23 Unknown Unknown FDA Start: 03-28-2023 Spinal Cord Stim ulator Percutaneous Unknown 03/28/23 Unknown Unknown FDA Start: 03-28-2023 Spinal Cord Stim ulator Percutaneous Unknown 03/28/23 Unknown Unknown FDA Start: 03-28-2023 Spinal Cord Stim ulator Percutaneous Unknown 03/28/23 Unknown Unknown FDA Start: 03-28-2023 Spinal Cord Stim ulator Percutaneous Unknown 03/28/23 Unknown Unknown FDA Start: 03-28-2023 ZZSpinal Cord Stimulator Percutaneous Unknown 03/28/23 Unknown Unknown FDA Start: 03-28-2023 ZZSpinal Cord Stimulator Percutaneous Unknown 03/28/23 Unknown Unknown FDA Start: 03-28-2023 ZZSpinal Cord Stimulator Percutaneous Unknown 03/28/23 Unknown Unknown FDA Start: 03-28-2023 Goals Date Patient Goal Desired Activity /State Functional Status Date Assessment Result Facility 01-10-[address] [facility] 01-10-[address] [facility] 03-22-2024 Functional Status Less than 8 hours [facility] 09-23-2023 Functional Status Ambulation in [place], Ambulation in Room [facility] 03-28-2023 Functional Status Awake [facility] 03-28-2023 Functional Status ice chips and sips take n [facility] 03-28-2023 Functional Status [facility] 01-09-2023 Functional Status Up with assistance [facility] 01-09-[address] [facility] 10-03-[address] [facility] 08-01-[address] [facility] 08-01-2022 Functional Status Less than 8 hours [facility] 12-02-2021 Functional status Ambulates [facility] Work Phone: Mental Status Date Assessment Result Facility 01-10-2025 Mental Status Orientation Oriented x 4 [facility] 01-10-2025 Mental Status [facility] 03-22-2024 Mental Status Orientation Asse ssment Oriented x 4 [facility] 09-23-2023 Mental Status Oriented x 4 [facility] 03-28-2023 Mental Status Orientation Oriented x 4 [facility] 03-28-[address] [facility] 03-28-[address] [facility] 01-09-2023 Mental Status Oriented x 4 [facility] 08-01-2022 Mental Status Oriented x 4 [facility] 08-01-2022 Mental Status [facility] 05-09-2022 Cognitive function Voice/Name;Touch/Shaki ng [facility] Work Phone: 02-07-2022 Cognitive function Voice/Name [facility] Work Phone: 02-07-2022 Cognitive function Patient Orien tation Person;Place;Time [facility] Work Phone: 12-20-2021 Cognitive function Voice/Name [facility] Work Phone: 12-02-2021 Cognitive function Level Of Cons ciousness Awake;Alert;Appropriate;Follow s Commands [facility] Work Phone: 12-01-2021 Cognitive function Appropriate;Cooperativ e [facility] Work Phone: 09-06-2021 Cognitive function Voice/Name;Touch/Shaki ng [facility] Work Phone: 07-19-2021 Cognitive function Voice/Name [facility] Work Phone: 06-07-2021 Cognitive function Voice/Name [facility] Work Phone: Clinical Notes 04-07-2014 to 01-10-2025 Note Date & Type Note Facility 01-10-2025 Note Exam Date Time Procedure Performing Provider Status 01/10/25 2:56 PM XR Fluoro Guide for Therapy Injection Modified [id number] ORIGINAL Images acquired, not reported on this accession number. [facility]10-24-2025 Hospital Discharge instructions Patient Education 01/10/2025 12:17:25 Epidural Steroid Injection, Care After Epidural Steroid Injection, Care After Refer to this sheet in the next few weeks. These instructions provide you with information about caring for yourself after your procedure. Your health care provider may also give you more specific instructions. Your treatment has been planned according to current medical practices, but problems sometimes occur. Call your health care provider if you have any problems or questions after your procedure. What can I expect after the procedure? After your procedure, it is common to feel a little discomfort at the injection site. Follow these instructions at home: For 24 hours after the procedure: ?Avoid using heat on the injection site. ?Do not take a tub bath, and do not soak in water. ?Do not drive if you received a medicine to help you relax (sedative). If directed, put ice on the injection site: ?Put ice in a plastic bag. ?Place a towel between your skin and the bag. ?Leave the ice on for 20 minutes, 2 3 times a day. Return to your normal activities as told by your health care provider. Ask your health care provider what activities are safe for you. You may remove the bandage (dressing) after 24 hours. Take bsko-olu-pevbber and prescription medicines only as told by your health care provider. Keep all follow-up visits as told by your health care provider. This is important. Contact a health care provider if: You have a fever. You continue to have pain and soreness around the injection site, even after taking lpzx-rrh-zxdiwbt pain medicine. You have severe, sudden, or lasting nausea or vomiting. Get help right away if: You have severe pain at the injection site that is not relieved by medicines. You develop a severe headache or a stiff neck. You become sensitive to light. You have any new numbness or weakness in your legs or arms. You lose control of your bladder or bowel movements. You have trouble breathing. This information is not intended to replace advice given to you by your health care provider. Make sure you discuss any questions you have with your health care provider. Document Released: 06/21/2011 Document Revised: 02/16/2018 Document Reviewed: 06/21/2016 [employer] Patient Education 2020 [employer]. Follow Up Care 12/23/2024 07:45:29 With:BEN AUGUST MD Address: [address] [place] [address] [place] [address] [phone] When: Unknown Comments:Follow-up as scheduled [facility] 10-24-2025 Summary of episode note Discharge Instructions Thank you for allowing [facility] to assist you with your healthcare needs. The following is importantdischarge information regarding your hospital visit. Your Care Team GAGANDEEP BARCLAY DO Your Diagnosis Chronic radicular lumbar pain Lumbar postlaminectomy syndrome What to do next Scheduled Follow-Up Appointments Appointment Type When With Where Contact Information StatusPM OV 02/05/2025 12:30 PM SAMANTHA CLAUDIO APRN-SERA [facility] PM [address] [place] [phone] Confirmed Follow Up Appointments Follow Up with BEN AUGUST MD Where:[facility] [address] [place] [address] [phone] Additional Information: Follow-up as scheduled The Following Activity and Diet Have Been Ordered for You Discharge Activity - Ordered -- Other, NO driving for 6 hours post-procedure., 01/10/25 11:59:00 EDT No qualifying data available. Allergies Lyrica Hives Red Dye Hives penicillin Hives Medications Please ask your primary doctor or pharmacist before taking any other medication not listed, including over the counter drugs, herbal medications, vitamins and or supplements as they may interact withyour home medications. What How Much When Why Instructions Last Dose Unchanged acetaminophen-oxyCODONE (acetaminophen-oxycodone 325 mg-7.5 mg oral tablet) 1 tab(s) by mouth Four (4) times a day as needed for for pain Lumbar postlaminectomy syndrome Chronic radicular lumbar pain Duration: 30 Days ok to fill Unchanged albuterol (ProAir HFA MDI (90 mcg/ inh) inhalation aerosol) 2 puff(s) by inhalation Every 4 hours as needed for as needed for wheezing Unchanged allopurinol (allopurinol 100 mg oral tablet) 2 tab(s) by mouth Once a day after a meal Unchanged amLODIPine (amLODIPine 5 mg oral tablet) 1 tab(s) by mouth Once a day Unchanged atorvastatin (atorvastatin 80 mg oral tablet) 1 tab(s) by mouth Once a day Unchanged cephalexin (cephalexin 500 mg oral capsule) 1 cap by mouth Two (2) times a day hx of persistant hip infections post-replacement Unchanged cholecalciferol (Vitamin D3 50 mcg (2000 intl units) oral capsule) 1 cap by mouth Every day Preventative health care Unchanged cloNIDine (cloNIDine 0.1 mg oral tablet) See instructions TAKE 1 TABLET BY MOUTH TWICE A DAY Unchanged DME (DME MISCellaneous) See instructions Leg wound, left Left leg swelling polymem foam for wound care. Unchanged DME (DME MISCellaneous) See instructions Leg wound, left Left leg swelling hydrofera blue (should memfoam not be available.) Unchanged fluticasone nasal (fluticasone 50 mcg/ inh NASAL spray) 2 spray(s) each nostril Once a day (in the morning) Unchanged fluticasone-salmeterol (Wixela Inhub 250 mcg-50 mcg/ inh inhalation powder) 1 puff(s) by inhalation Two (2) times a day rinse mouth and throat after use Unchanged furosemide (furosemide 40 mg oral tablet) See instructions TAKE 1 TABLET BY MOUTH TWICE A DAY Unchanged hydrALAZINE (hydrALAZINE 50 mg oral tablet) 1 tab(s) by mouth Two (2) times a day Unchanged lisinopril (lisinopril 40 mg oral tablet) 1 tab(s) by mouth Once a day Unchanged metoprolol (metoprolol succinate 100 mg oral TABLET extended release) 1 tab(s) by mouth Once a day Unchanged nicotine (nicotine 2 mg oral transmucosal lozenge) 1 lozenge(s) Transmucosal Every hour as needed for as needed for smoking cessation Preventative health care Tobacco use as directed on package labeling Unchanged nicotine (nicotine 7 mg/ 24 hr transdermal film, extended release) 1 patch(es) Transdermal Once a day Preventative health care Tobacco use Duration: 30 Days Unchanged potassium chloride (potassium chloride 20 mEq oral tablet, extended release) 1 tab(s) by mouth Once a day Take with food Unchanged promethazine (promethazine 6.25 mg/ 5 mL oral syrup) 5 Milliliter by mouth Four (4) times a day Duration: 30 Days NO RED DYE! Grape flavor ok Unchanged sildenafil (sildenafil 50 mg oral tablet) 1-2 tab(s) by mouth Once a day as needed for erectile dysfunction Unchanged sotalol (sotalol 80 mg oral tablet) 1 tab(s) by mouth Two (2) times a day Duration: 30 Days Unchanged traZODone (traZODone 50 mg oral tablet) 1 tab(s) by mouth Daily at bedtime as needed for Sleep / Insomnia Unchanged warfarin (warfarin 4 mg oral tablet) See instructions 6mg Sun, Mon, Mon, Thur, Sat 8mg Tue, Fri Unchanged warfarin (warfarin 4 mg oral tablet) See instructions Take 6mg PO Sun, Mon, Mon, Thur, Sat and 8mg Tue, Fri. Please take this list to your next doctor s visit. Bring all medications you take, including over the counter medications, herbals and other supplements with you to your doctor s visit. Patients and families are reminded to discard old lists and to update any records with all medication providers or retail pharmacies. Education Materials Epidural Steroid Injection, Care After Refer to this sheet in the next few weeks. These instructions provide you with information about caring for yourself after your procedure. Your health care provider may also give you more specific instructions. Your treatment has been planned according to current medical practices, but problems sometimes occur. Call your health care provider if you have any problems or questions after your procedure. What can I expect after the procedure? After your procedure, it is common to feel a little discomfort at the injection site. Follow these instructions at home: For 24 hours after the procedure: ? Avoid using heat on the injection site. ? Do not take a tub bath, and do not soak in water. ? Do not drive if you received a medicine to help you relax (sedative). If directed, put ice on the injection site: ? Put ice in a plastic bag. ? Place a towel between your skin and the bag. ? Leave the ice on for 20 minutes, 2 3 times a day. Return to your normal activities as told by your health care provider. Ask your health care provider what activities are safe for you. You may remove the bandage (dressing) after 24 hours. Take rvsc-jau-jeououz and prescription medicines only as told by your health care provider. Keep all follow-up visits as told by your health care provider. This is important. Contact a health care provider if: You have a fever. You continue to have pain and soreness around the injection site, even after taking vwkq-xab-yldtgjt pain medicine. You have severe, sudden, or lasting nausea or vomiting. Get help right away if: You have severe pain at the injection site that is not relieved by medicines. You develop a severe headache or a stiff neck. You become sensitive to light. You have any new numbness or weakness in your legs or arms. You lose control of your bladder or bowel movements. You have trouble breathing. This information is not intended to replace advice given to you by your health care provider. Make sure you discuss any questions you have with your health care provider. Document Released: 06/21/2011 Document Revised: 02/16/2018 Document Reviewed: 06/21/2016 Elsevier Patient Education 2020 Elsevier Inc. Additional Information VACCINATE! IT SAVES LIVES! Members of the community who have not yet received the COVID-19 vaccine and would like to receive it can visit one of [facility] vaccine clinics. There are many vaccine clinic locations within the [facility]. For locations and available times, please visit [email or web address]/. It is important to note that some COVID mobile vaccine clinics are held outdoors and may be canceled in rainy or stormy conditions. To learn more about pediatric vaccinations (ages 5-11), we invite you to visit the [facility] webpage. https://www.[facility].org/pages/[email or web address]-Ujfze-Lxatrsdqgng-Xomnbeuegw-Jryiw-Cpq stions.htmlTo learn more about the COVID-19 vaccine, we invite you to visit the CDC website for a list of frequently asked questions.https://www.cdc.gov/coronavirus/2019-ncov/vaccines/faq.html [facility] Patient Portal Access Instructions: Stay connected with your healthcare team and access your personal medical information anytime with the [facility] Patient Portal. Please follow the directions below to create your [employer] account: 1.Access the email account you provided upon registration to the hospital/physician office.2.Look for an invitation email from [facility].3.Open the email and access the invitation link: AcceptInvitation to [facility].4.Fill in the required perez to create your account. To access your account, visit People and Pages/'Rock' Your PaperOneChart or scan the QR code above. Click the [employer] Access Patient Portal and then log in with the username and password that you created in the steps above. You will be able to view your test results, lab results, a summary of your visits, upcoming appointments and more. There is also a convenient messaging option where you can send secure messages to your provider. In addition, you will have the ability to download any documentsor summaries to your computer and/or send the information securely to a physician. Remember that your healthcare information is confidential, so carefully consider who you will allowto register on the [facility] Patient Portal for access to your information. You can also access the [facility] Patient Portal on the [employer] ashley. Simply click on Patient Portal and then log into your account. If you would like to receive a full copy of your medical records, please contact the [facility] Medical Records Department by calling [phone], Monday through Monday between 8 a.m. and 4:30 p.m. HOW TO SAFELY DISPOSE OF PRESCRIPTION MEDICATIONS Please use one of the following methods to safely dispose of your unused medications. 1.Use a drug disposal kit: the drug disposal pouch allows you to safely discard your old and unuseddrugs. Ask your nurse to give you one when you are discharged.2.Visit a local take-back location: Many local pharmacies and police departments have programs that collect old and unwanted prescriptiondrugs. Call your local pharmacy or go to http://MicroInvention.[facility]/1S0Xt2x to find one close to you.3.Make use of household items: Use cat litter or old coffee grounds to dispose medications if other options arenot available. Mix your drugs with these household products, seal them in an airtight container andthrow it into the garbage. Call [facility]: [phone] to be sure your drugs can be disposed of in this way. Some medicines may require a different approach.4.Never flush your medications down the toilet. IF YOU HAVE BEEN PRESCRIBED AN OPIOID FOR PAIN If you have been prescribed an opioid (such as hydrocodone, oxycodone or morphine), it is critical to understand the possible side effects and risks of opioid pain medications. Even when taken as directed, opioids can have several side effects including: Tolerance, meaning you might need to take more of a medication for the same pain relief. Nausea, vomiting and/or constipation. Sleepiness, dizziness, dry mouth, confusion, depression or itching. Physical dependence, meaning you have withdrawal symptoms when a medication is stopped, can develop within a few days. KNOW YOUR RESPONSIBILITIES It is important to know exactly how much and how often to take the opioid pain medications you are prescribed. Never take opioids in higher amounts or more often than prescribed. Do not combine opioids with alcohol or other drugs that cause drowsiness, such as benzodiazepines, also known as benzos, including diazepam and alprazolam, muscle relaxants or sleep aids. Never sell or share prescription opioids. This is illegal. Store opioids in a secure place and out of reach of others (including children, family, friends and visitors). The last page of this document has been signed and retained as a CHART COPY. Signatures Patient Education Materials Epidural Steroid Injection, Care After Medication Leaflets My discharge plan and instructions have been reviewed and explained to me and IRAEANN HARRISON Bunderstand my current condition and have read and understand these discharge instructions. I have received a written copy of the plan/instructions. If I have questions, I am aware that I should contact my doctor. Patient/Nuclear Medicine Officer Signature: Date/Time: Relationship to Patient: Witness Name/Signature: Date/Time: [facility]01-03-2025 Hospital Discharge instructions Patient Education 03/22/2024 12:00:50 Epidural Steroid Injection, Care After Epidural Steroid Injection, Care After Refer to this sheet in the next few weeks. These instructions provide you with information about caring for yourself after your procedure. Your health care provider may also give you more specific instructions. Your treatment has been planned according to current medical practices, but problems sometimes occur. Call your health care provider if you have any problems or questions after your procedure. What can I expect after the procedure? After your procedure, it is common to feel a little discomfort at the injection site. Follow these instructions at home: For 24 hours after the procedure: ?Avoid using heat on the injection site. ?Do not take a tub bath, and do not soak in water. ?Do not drive if you received a medicine to help you relax (sedative). If directed, put ice on the injection site: ?Put ice in a plastic bag. ?Place a towel between your skin and the bag. ?Leave the ice on for 20 minutes, 2 3 times a day. Return to your normal activities as told by your health care provider. Ask your health care provider what activities are safe for you. You may remove the bandage (dressing) after 24 hours. Take qroh-nvr-ebhmqwb and prescription medicines only as told by your health care provider. Keep all follow-up visits as told by your health care provider. This is important. Contact a health care provider if: You have a fever. You continue to have pain and soreness around the injection site, even after taking wszf-avt-wsxusoa pain medicine. You have severe, sudden, or lasting nausea or vomiting. Get help right away if: You have severe pain at the injection site that is not relieved by medicines. You develop a severe headache or a stiff neck. You become sensitive to light. You have any new numbness or weakness in your legs or arms. You lose control of your bladder or bowel movements. You have trouble breathing. This information is not intended to replace advice given to you by your health care provider. Make sure you discuss any questions you have with your health care provider. Document Released: 06/21/2011 Document Revised: 02/16/2018 Document Reviewed: 06/21/2016 GetApp Patient Education 2020 [employer]. Follow Up Care 03/11/2024 09:59:35 With:BEN AUGUST MD Address: [address] [place] [address] [phone] When: Unknown Comments:Restart coumadin today. Follow up in office as scheduled. [facility] 01-03-2025 Note* Exam Date Time Procedure Performing Provider Status 03/22/24 1:53 PM XR Fluoro Guide for Therapy Injection Modified [id number] ORIGINAL Images acquired, not reported on this accession number. [facility]01-03-2025 Summary of episode note Discharge Instructions Thank you for allowing [facility] to assist you with your healthcare needs. The following is importantdischarge information regarding your hospital visit. 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 Follow up in office as scheduled. The Following Activity and Diet Have Been Ordered for You No qualifying data available. No qualifying data available. The Following Equipment Has Been Ordered for You No qualifying data available. The Following Treatments Have Been Ordered for You Discharge Labs No qualifying data available. Discharge Radiology No qualifying data available. Other Therapies No qualifying data available. Post Acute Orders No qualifying data available. Someone Will Contact You Regarding These Home Health Referrals No home referrals have been ordered for you. No one will call you. Allergies Lyrica Hives Red Dye Hives penicillin Hives Medications Please ask your primary doctor or pharmacist before taking any other medication not listed, including over the counter drugs, herbal medications, vitamins and or supplements as they may interact withyour home medications. What How Much When Why Instructions Last Dose Unchanged acetaminophen-oxyCODONE (acetaminophen-oxycodone 325 mg-7.5 mg oral tablet) 1 tab(s) by mouth Four (4) times a day as needed for for pain Lumbar postlaminectomy syndrome Duration: 30 Days Unchanged albuterol (ProAir HFA MDI (90 mcg/ inh) inhalation aerosol) 2 puff(s) by inhalation Every 4 hours as needed for as needed for wheezing Unchanged allopurinol (allopurinol 100 mg oral tablet) 2 tab(s) by mouth Once a day after a meal Unchanged amLODIPine (amLODIPine 5 mg oral tablet) See instructions TAKE 1 TABLET BY MOUTH EVERY DAY Unchanged atorvastatin (atorvastatin 80 mg oral tablet) 1 tab(s) by mouth Once a day Unchanged carvedilol (carvedilol 6.25 mg oral tablet) 60 EA, 0 Refill(s), take 1 tablet by mouth twice a day Unchanged cephalexin (cephalexin 500 mg oral capsule) 1 cap by mouth Two (2) times a day hx of persistant hip infections post-replacement Unchanged cholecalciferol (Vitamin D3 50 mcg (2000 intl units) oral capsule) 1 cap by mouth Every day Preventative health care Unchanged cloNIDine (cloNIDine 0.1 mg oral tablet) See instructions TAKE 1 TABLET BY MOUTH TWICE A DAY Unchanged DME (DME MISCellaneous) See instructions Leg wound, left Left leg swelling polymem foam for wound care. Unchanged DME (DME MISCellaneous) See instructions Leg wound, left Left leg swelling hydrofera blue (should memfoam not be available.) Unchanged fluticasone nasal (fluticasone 50 mcg/ inh NASAL spray) 2 spray(s) each nostril Once a day (in the morning) Unchanged fluticasone-salmeterol (Wixela Inhub 250 mcg-50 mcg inhalation powder) 1 puff(s) by inhalation Two (2) times a day rinse mouth and throat after use Unchanged furosemide (furosemide 40 mg oral tablet) See instructions TAKE 1 TABLET BY MOUTH TWICE A DAY Unchanged hydrALAZINE (hydrALAZINE 50 mg oral tablet) 1 tab(s) by mouth Two (2) times a day Unchanged lisinopril (lisinopril 40 mg oral tablet) 1 tab(s) by mouth Once a day Unchanged potassium chloride (potassium chloride 20 mEq oral tablet, extended release) 1 tab(s) by mouth Once a day Take with food Unchanged promethazine (promethazine 6.25 mg/ 5 mL oral syrup) 5 Milliliter by mouth Four (4) times a day Duration: 30 Days NO RED DYE! Grape flavor ok Unchanged sildenafil (sildenafil 20 mg oral tablet) 3 tab(s) by mouth Every day as needed for erectile dysfunction Erectile dysfunction DO NOT TAKE SAME DAY IF USING ISOSORBID MONONITRATE (IMDUR) Unchanged sotalol (sotalol 80 mg oral tablet) 1 tab(s) by mouth Two (2) times a day Unchanged traZODone (traZODone 50 mg oral tablet) 1 tab(s) by mouth Daily at bedtime as needed for Sleep / Insomnia Unchanged warfarin (warfarin 4 mg oral tablet) See instructions 6mg Mon, Mon, Mon, , Sat 8mg Mon, Mon Unchanged warfarin (warfarin 4 mg oral tablet) take 1 AND 1/ 2 tablet by mouth ON Monday... (REFER TO PRESCRIPTION NOTES). Please take this list to your next doctor s visit. Bring all medications you take, including over the counter medications, herbals and other supplements with you to your doctor s visit. Patients and families are reminded to discard old lists and to update any records with all medication providers or retail pharmacies. Education Materials Epidural Steroid Injection, Care After Refer to this sheet in the next few weeks. These instructions provide you with information about caring for yourself after your procedure. Your health care provider may also give you more specific instructions. Your treatment has been planned according to current medical practices, but problems sometimes occur. Call your health care provider if you have any problems or questions after your procedure. What can I expect after the procedure? After your procedure, it is common to feel a little discomfort at the injection site. Follow these instructions at home: For 24 hours after the procedure: ? Avoid using heat on the injection site. ? Do not take a tub bath, and do not soak in water. ? Do not drive if you received a medicine to help you relax (sedative). If directed, put ice on the injection site: ? Put ice in a plastic bag. ? Place a towel between your skin and the bag. ? Leave the ice on for 20 minutes, 2 3 times a day. Return to your normal activities as told by your health care provider. Ask your health care provider what activities are safe for you. You may remove the bandage (dressing) after 24 hours. Take didm-acx-sliqcxf and prescription medicines only as told by your health care provider. Keep all follow-up visits as told by your health care provider. This is important. Contact a health care provider if: You have a fever. You continue to have pain and soreness around the injection site, even after taking aqge-imn-otkusdf pain medicine. You have severe, sudden, or lasting nausea or vomiting. Get help right away if: You have severe pain at the injection site that is not relieved by medicines. You develop a severe headache or a stiff neck. You become sensitive to light. You have any new numbness or weakness in your legs or arms. You lose control of your bladder or bowel movements. You have trouble breathing. This information is not intended to replace advice given to you by your health care provider. Make sure you discuss any questions you have with your health care provider. Document Released: 06/21/2011 Document Revised: 02/16/2018 Document Reviewed: 06/21/2016 ElseOne2start Patient Education 2020 GetApp Inc. Additional Information VACCINATE! IT SAVES LIVES! Members of the community who have not yet received the COVID-19 vaccine and would like to receive it can visit one of [facility] vaccine clinics. There are many vaccine clinic locations within the [facility]. For locations and available times, please visit [email or web address]/. It is important to note that some COVID mobile vaccine clinics are held outdoors and may be canceled in rainy or stormy conditions. To learn more about pediatric vaccinations (ages 5-11), we invite you to visit the [facility] webpage. https://www.[facility].org/pages/[email or web address]-Lzsny-Kasodpakdrw-Argbvmynyy-Iljft-Fcl stions.htmlTo learn more about the COVID-19 vaccine, we invite you to visit the CDC website for a list of frequently asked questions.https://www.cdc.gov/coronavirus/2019-ncov/vaccines/faq.html [facility] Patient Portal Access Instructions: Stay connected with your healthcare team and access your personal medical information anytime with the [facility] Patient Portal. Please follow the directions below to create your [facility] account: 1.Access the email account you provided upon registration to the hospital/physician office.2.Look for an invitation email from [facility].3.Open the email and access the invitation link: AcceptInvitation to [facility].4.Fill in the required perez to create your account. To access your account, visit People and Pages/'Rock' Your PaperOneChart. Click the blue button labeled Access Patient Portal and then log in with the username and password that you created in the steps above. You will be able to view your test results, lab results, a summary of your visits, upcoming appointments and more. There is also a convenient messaging option where you can send secure messages to your p Micro[employer]ider. In addition, you will have the ability to download any documents or summaries to your computer and/or send the information securely to a physician. Remember that your healthcare information is confidential, so carefully consider who you will allowto register on the [facility] Patient Portal for access to your information. You can also access the [facility] Patient Portal on the [facility] ashley. Simply click on Patient Portal and then log into your account. If you would like to receive a full copy of your medical records, please contact the [facility] Medical Records Department by calling [phone], Monday through Monday between 8 a.m. and 4:30 p.m. HOW TO SAFELY DISPOSE OF PRESCRIPTION MEDICATIONS Please use one of the following methods to safely dispose of your unused medications. 1.Use a drug disposal kit: the drug disposal pouch allows you to safely discard your old and unuseddrugs. Ask your nurse to give you one when you are discharged.2.Visit a local take-back location: Many local pharmacies and police departments have programs that collect old and unwanted prescriptiondrugs. Call your local pharmacy or go to http://MicroInvention.[facility]/2U8Zr0i to find one close to you.3.Make use of household items: Use cat litter or old coffee grounds to dispose medications if other options arenot available. Mix your drugs with these household products, seal them in an airtight container andthrow it into the garbage. Call [facility]: [phone] to be sure your drugs can be disposed of in this way. Some medicines may require a different approach.4.Never flush your medications down the toilet. IF YOU HAVE BEEN PRESCRIBED AN OPIOID FOR PAIN If you have been prescribed an opioid (such as hydrocodone, oxycodone or morphine), it is critical to understand the possible side effects and risks of opioid pain medications. Even when taken as directed, opioids can have several side effects including: Tolerance, meaning you might need to take more of a medication for the same pain relief. Nausea, vomiting and/or constipation. Sleepiness, dizziness, dry mouth, confusion, depression or itching. Physical dependence, meaning you have withdrawal symptoms when a medication is stopped, can develop within a few days. KNOW YOUR RESPONSIBILITIES It is important to know exactly how much and how often to take the opioid pain medications you are prescribed. Never take opioids in higher amounts or more often than prescribed. Do not combine opioids with alcohol or other drugs that cause drowsiness, such as benzodiazepines, also known as benzos, including diazepam and alprazolam, muscle relaxants or sleep aids. Never sell or share prescription opioids. This is illegal. Store opioids in a secure place and out of reach of others (including children, family, friends and visitors). The last page of this document has been signed and retained as a CHART COPY. Signatures Patient Education Materials Epidural Steroid Injection, Care After Medication Leaflets My discharge plan and instructions have been reviewed and explained to me and IRAEANN HARRISON Bunderstand my current condition and have read and understand these discharge instructions. I have received a written copy of the plan/instructions. If I have questions, I am aware that I should contact my doctor. Patient/Nuclear Medicine Officer Signature: Date/Time: Relationship to Patient: Witness Name/Signature: Date/Time: [facility]08-12-2024 Note* Exam Date Time Procedure Performing Provider Status 10/30/23 3:58 PM VL Venous US/Doppler One Leg (for DVT). Auth (Verified) [facility] 08-12-2024 Note* Exam Date Time Procedure Performing Provider Status 10/30/23 3:00 PM VL Arterial Dopplers Both Legs Rest/PVR- Auth (Verified) [facility] 07-06-2024 Hospital Discharge instructions Patient Education 09/23/2023 16:12:24 Wound Care Wound Care Taking proper care of your wound will help it heal. Your healthcare provider may show you how to clean and dress the wound. He or she will also explain how to tell if the wound is healing normally. If you are unsure of how to take care of the wound, be sure to clarify what dressing to use and how often you should change the bandages. Here are the basic steps. A wound that's not healing normally may be dark in color or have white streaks. Wash your hands Tips for washing your hands include: Use liquid soap and lather for 2 minutes. Scrub between your fingers and under your nails. Rinse with warm water, keeping your fingers pointing down. Use a paper towel to dry your hands and to turn off the faucet. Remove the used dressing Here are suggestions for removing the dressing: If dressing changes cause you pain, be sure to take your pain medicine as prescribed by your healthcare provider 30 minutes before dressing changes. Set up your supplies. Put on disposable gloves if you re dressing a wound for someone else or your wound is infected. Loosen the tape by pulling gently toward the wound. Gently take off the old dressing. If the dressing is stuck to the wound, moisten it with saline (ifavailable) or clean water. If you have a drain or tube in the wound, be careful not to pull on it. Remove the dressing 1 layer at a time and put it in a plastic bag. Seal the bag and put it in the trash. Remove your gloves. Inspect and dress the wound Check the wound carefully: Each time you change the dressing, check the wound carefully to be sure it s healing normally by making sure your wound appears to be pink and moist, and is free of infection. Wash your hands again. Put on a new pair of gloves. Clean and dress the wound as directed by your healthcare provider or nurse. Don't put anything in the wound that is not prescribed or directed by your healthcare provider. If you have a drain or tube, be careful not to pull on it. Make sure to secure the drain or tube as well. Put all unused supplies in a clean plastic bag. Seal the bag and store it in a clean, dry area between dressing changes. Be sure to wash your hands again. Call your healthcare provider Call your healthcare provider if you see any of the following signs of a problem: Bleeding that soaks the dressing Inchelium fluid weeping from the wound Increased drainage or drainage that is yellow, yellow-green, or foul-smelling Increased swelling or pain, or redness or swelling in the skin around the wound A change in the color of the wound, or if streaks develop in a direction away from the wound The area between any stitches opens up An increase in the size of the wound A fever of 100.4 F (38 C) or higher, or as directed by your healthcare provider Chills, increased fatigue, or a loss of appetite [id number] [employer]. [address] [place] [address], [place] [address]. All rights reserved. This information is not intended as a substitute for professional medical care. Always follow yourhealthcare professional's instructions. Follow Up Care 09/23/2023 15:45:10 With:[facility] Address: [address] [place] [phone]- When:2-4 days With:GAGANDEEP BARCLAY DO Address: [address] [place] [phone] When:2-4 days [facility] 07-06-2024 Note Discharge Instructions Thank you for allowing [facility] to assist you with your healthcare needs. The following is importantdischarge information regarding your hospital visit. What to Do Next Instructions from Your Care Team No qualifying data available. Post Acute Orders No qualifying data available. You Need to Schedule the Following Appointments Follow Up with [facility] When:Within 2-4 days Where:[address] [place] [phone]- Follow Up with GAGANDEEP BARCLAY DO When:Within 2-4 days Where:[address] [place] [address]- [phone] Allergies Lyrica Hives Red Dye Hives penicillin Hives Medications Please ask your primary doctor or pharmacist before taking any other medication not listed, including over the counter drugs, herbal medications, vitamins and or supplements as they may interact withur home medications. What How Much When Why Instructions Last Dose New lidocaine topical (lidocaine 4% topical cream) 1 application Topical Three (3) times a day as needed for as needed for pain Duration: 5 Days Printed Prescription Unchanged acetaminophen-oxyCODONE (acetaminophen-oxycodone 325 mg-7.5 mg oral tablet) 1 tab(s) by mouth Four (4) times a day as needed for for pain Lumbar postlaminectomy syndrome Duration: 30 Days d/ c norco 10mg Unchanged albuterol (ProAir HFA MDI (90 mcg/ inh) inhalation aerosol) 2 puff(s) by inhalation Every 4 hours as needed for as needed for wheezing Unchanged allopurinol (allopurinol 100 mg oral tablet) 1 tab(s) by mouth Once a day after a meal Unchanged amLODIPine (amLODIPine 5 mg oral tablet) See instructions TAKE 1 TABLET BY MOUTH EVERY DAY Unchanged atorvastatin (atorvastatin 80 mg oral tablet) 1 tab(s) by mouth Once a day Unchanged carvedilol (carvedilol 6.25 mg oral tablet) 60 EA, 0 Refill(s), take 1 tablet by mouth twice a day Unchanged cephalexin (cephalexin 500 mg oral capsule) 1 cap by mouth Two (2) times a day hx of persistant hip infections post-replacement Unchanged cholecalciferol (Vitamin D3 50 mcg (2000 intl units) oral capsule) 1 cap by mouth Every day Preventative health care Unchanged cloNIDine (cloNIDine 0.1 mg oral tablet) See instructions TAKE 1 TABLET BY MOUTH TWICE A DAY Unchanged fluticasone nasal (fluticasone 50 mcg/ inh NASAL spray) 2 spray(s) each nostril Once a day (in the morning) Unchanged fluticasone-salmeterol (Wixela Inhub 250 mcg-50 mcg inhalation powder) 1 puff(s) by inhalation Two (2) times a day rinse mouth and throat after use Unchanged furosemide (furosemide 40 mg oral tablet) See instructions TAKE 1 TABLET BY MOUTH TWICE A DAY Unchanged hydrALAZINE (hydrALAZINE 50 mg oral tablet) 1 tab(s) by mouth Two (2) times a day Unchanged lisinopril (lisinopril 40 mg oral tablet) 1 tab(s) by mouth Once a day Unchanged potassium chloride (potassium chloride 20 mEq oral tablet, extended release) 1 tab(s) by mouth Once a day Take with food Unchanged promethazine (promethazine 6.25 mg/ 5 mL oral syrup) 5 Milliliter by mouth Four (4) times a day Duration: 30 Days NO RED DYE! Grape flavor ok Unchanged sildenafil (sildenafil 20 mg oral tablet) 3 tab(s) by mouth Every day as needed for erectile dysfunction Erectile dysfunction DO NOT TAKE SAME DAY IF USING ISOSORBID MONONITRATE (IMDUR) Unchanged sotalol (sotalol 80 mg oral tablet) 1 tab(s) by mouth Two (2) times a day Unchanged traZODone (traZODone 50 mg oral tablet) 1 tab(s) by mouth Daily at bedtime as needed for Sleep / Insomnia Unchanged warfarin (warfarin 4 mg oral tablet) take 1 AND 1/ 2 tablet by mouth ON Monday... (REFER TO PRESCRIPTION NOTES). Please take this list to your next doctor s visit. Bring all medications you take, including over the counter medications, herbals and other supplements with you to your doctor s visit. Patients and families are reminded to discard old lists and to update any records with all medication providers or retail pharmacies. Education Materials Wound Care Taking proper care of your wound will help it heal. Your healthcare provider may show you how to clean and dress the wound. He or she will also explain how to tell if the wound is healing normally. If you are unsure of how to take care of the wound, be sure to clarify what dressing to use and how often you should change the bandages. Here are the basic steps. A wound that's not healing normally may be dark in color or have white streaks. Wash your hands Tips for washing your hands include: Use liquid soap and lather for 2 minutes. Scrub between your fingers and under your nails. Rinse with warm water, keeping your fingers pointing down. Use a paper towel to dry your hands and to turn off the faucet. Remove the used dressing Here are suggestions for removing the dressing: If dressing changes cause you pain, be sure to take your pain medicine as prescribed by your healthcare provider 30 minutes before dressing changes. Set up your supplies. Put on disposable gloves if you re dressing a wound for someone else or your wound is infected. Loosen the tape by pulling gently toward the wound. Gently take off the old dressing. If the dressing is stuck to the wound, moisten it with saline (ifavailable) or clean water. If you have a drain or tube in the wound, be careful not to pull on it. Remove the dressing 1 layer at a time and put it in a plastic bag. Seal the bag and put it in the trash. Remove your gloves. Inspect and dress the wound Check the wound carefully: Each time you change the dressing, check the wound carefully to be sure it s healing normally by making sure your wound appears to be pink and moist, and is free of infection. Wash your hands again. Put on a new pair of gloves. Clean and dress the wound as directed by your healthcare provider or nurse. Don't put anything in the wound that is not prescribed or directed by your healthcare provider. If you have a drain or tube, be careful not to pull on it. Make sure to secure the drain or tube as well. Put all unused supplies in a clean plastic bag. Seal the bag and store it in a clean, dry area between dressing changes. Be sure to wash your hands again. Call your healthcare provider Call your healthcare provider if you see any of the following signs of a problem: Bleeding that soaks the dressing Inchelium fluid weeping from the wound Increased drainage or drainage that is yellow, yellow-green, or foul-smelling Increased swelling or pain, or redness or swelling in the skin around the wound A change in the color of the wound, or if streaks develop in a direction away from the wound The area between any stitches opens up An increase in the size of the wound A fever of 100.4 F (38 C) or higher, or as directed by your healthcare provider Chills, increased fatigue, or a loss of appetite [id number] [employer]. [address] [place] [address]. All rights reserved. This information is not intended as a substitute for professional medical care. Always follow yourhealthcare professional's instructions. Additional Information VACCINATE! IT SAVES LIVES! Members of the community who have not yet received the COVID-19 vaccine and would like to receive it can visit one of [facility] vaccine clinics. There are many vaccine clinic locations within the [facility]. For locations and available times, please visit www.gettheshot.coronavirus.[place].gov/. It is important to note that some COVID mobile vaccine clinics are held outdoors and may be canceled in rainy or stormy conditions. To learn more about pediatric vaccinations (ages 5-11), we invite you to visit the [facility] webpage. [email or web address]/[email or web address] [email or web address] learn more about the COVID-19 vaccine, we invite you to visit the CDC website for a list of frequently asked questions. https://www.cdc.gov/coronavirus/2019-ncov/vaccines/faq.html [facility] Patient Portal Access Instructions: Stay connected with your healthcare team and access your personal medical information anytime with the [facility] Patient Portal. If you would like a full copy of your medical records please contact the [facility] Medical Records Department Monday through Monday between 8a.m. and 4:30p.m. Please follow the directions below to access the portal: 1.Access the email account you provided upon registration to the [facility].2.Look for an invitation email from [facility].3.Open the email and access the invitation link: Accept Invitation to [facility]4.Fill in the required perez to create your account. Sign into www.People and Pages with your username and password that you created in the above steps to stay up to date. You can then view a summary of results, a summary of your visits, and the ability to download your summaries to your computer or send the information securely to a physician. Remember that your healthcare information is confidential, so carefully consider who you will allow to register on the [facility] Patient Portal for access to your information. You can also access the [facility] Patient Portal on the [employer]. Simply click on Health Records under [employer]ODSCROOGE and then click on the '[employer] logo. HOW TO SAFELY DISPOSE OF PRESCRIPTION MEDICATIONS Please use one of the following methods to safely dispose of your unused medications. 1.Use a drug disposal kit: the drug disposal pouch allows you to safely discard your old and unuseddrugs. Ask your nurse to give you one when you are discharged.2.Visit a local take-back location: Many local pharmacies and police departments have programs that collect old and unwanted prescriptiondrugs. Call your local pharmacy or go to http://[employer].[facility]/0F4Ue6e to find one close to you.3.Make use of household items: Use cat litter or old coffee grounds to dispose medications if other options arenot available. Mix your drugs with these household products, seal them in an airtight container andthrow it into the garbage. Call [facility]: [phone] to be sure your drugs can be disposed of in this way. Some medicines may require a different approach.4.Never flush your medications down the toilet. IF YOU HAVE BEEN PRESCRIBED AN OPIOIDS FOR PAIN If you have been prescribed an opioid (such as hydrocodone, oxycodone or morphine), it is critical to understand the possible side effects and risks of opioid pain medications. Even when taken as directed, opioids can have several side effects including: Tolerance, meaning you might need to take more of a medication for the same pain relief. Nausea, vomiting and/or constipation. Sleepiness, dizziness, dry mouth, confusion, depression or itching. Physical dependence, meaning you have withdrawal symptoms when a medication is stopped ? this can develop within a few days. KNOW YOUR RESPONSIBILITIES It is important to know exactly how much and how often to take the opioid pain medications you are prescribed. Never take opioids in higher amounts or more often than prescribed. Do not combine opioids with alcohol or other drugs that cause drowsiness, such as benzodiazepines, also known as benzos,including diazepam and alprazolam, muscle relaxants or sleep aids. Never sell or share prescriptionopioids. This is illegal. Store opioids in a secure place and out of reach of others (including children, family, friends and visitors). The last page(s) of this document has been signed and retained as a CHART COPY Signatures Patient Education Materials Wound Care Medication Leaflets My discharge plan and instructions have been reviewed and explained to me and I,ARELI RUELASd my current condition and have read and understand these discharge instructions. I have received a written copy of the plan/instructions. If I have questions, I am aware that I should contact my doctor. Patient/Nuclear Medicine Officer Signature: Date/Time: Relationship to Patient: Witness Name/Signature: Date/Time: [facility]01-29-2024 Note. MICRO - Microbiology PROCEDURE: Culture Wound Aerobic with Gram Stain [*1] SOURCE: Drainage BODY SITE: Lumbar COLLECTED DATE/TIME: 04/14/2023 11:56 EST RECEIVED DATE/TIME: 04/14/2023 12:21 EST START DATE/TIME: 04/14/2023 12:22 EST FREE TEXT SOURCE: FINAL REPORTS Final Report [] Verified Date/Time/Personnel: 04/17/2023 09:56 EST 1 colony Acinetobacter radioresistens Few normal skin asad present. Sensitivity testing not indicated. PRELIMINARY REPORTS Preliminary Report [] Verified Date/Time/Personnel: 04/17/2023 08:15 EST 1 colony Acinetobacter radioresistens Final report to follow. Preliminary Report [] Verified Date/Time/Personnel: 04/16/2023 10:37 EST 1 colony Acinetobacter radioresistens RACHEL to follow Final report to follow. Preliminary Report [] Verified Date/Time/Personnel: 04/15/2023 10:52 EST Culture results pending. STAINS GS [] Verified Date/Time/Personnel: 04/14/2023 14:04 EST Rare Epithelial cells 2+ Polymorphonuclear cells Rare Gram Positive Cocci SUSCEPTIBILITY RESULTS Acinetobacter radioresistens Antibiotic RACHEL Dilut RACHEL Inter Ampicillin/ <=4/2 Susceptible Sulbactam Ceftazidime <=1 Susceptible Ciprofloxacin <=0.25 Susceptible Gentamicin <=2 Susceptible ID Panel Not Not Applicable Applicable Imipenem <=1 Susceptible Levofloxacin <=0.5 Susceptible Meropenem <=1 Susceptible Minocycline <=4 Susceptible Tobramycin <=2 Susceptible Trimethoprim/ <=0.5/9.5 Susceptible Sulfa Performing Locations *1: This test was performed at: [address], [facility] , [facility] ([place])03-28-2023 Hospital Discharge instructions Patient Education 03/28/2023 12:32:44 1- [facility] General Discharge Guidelines (12/02/2022) (CUSTOM) [place] SAME DAY SURGERY DISCHARGE INSTRUCTIONS PLEASE FOLLOW THE INSTRUCTIONS BELOW MARKED WITH AN X: __X_Regular Diet: Start with clear liquids, then soup and crackers. Gradually add other foods unless otherwise instructed by your surgeon __X_Drink extra fluids ACTIVTY: __X_Since you have had anesthetic, it would be advisable not to drive, drink alcohol, or make majordecisions over the next 24 hours. You may require more rest tonight and tomorrow __X_Do not drive vehicle while taking narcotics and as directed by your Surgeon ____Restrict activity as follows: ____Do not have sexual intercourse. Nothing in the vagina-No tampons or Douching _x___No heavy lifting, pushing, or straining ____Elevate operative limb ____Ice as directed __X_Follow all written and verbal instructions given to you by your Doctor ____Other: BATHING/SHOWERING ____Sponge bathe until office visit. ____Sitting in tub of warm water may relieve discomfort ____May tub bathe ____May shower in 24-48 hours with clean linen unless otherwise instructed by your Doctor DRESSING: _x___Keep operative area clean and dry _x___Check the operative area for signs of bleeding. Apply pressure to the bleeding site if necessary. ____Change drip pad as needed ____Wear scrotal support for comfort WATCH FOR SIGNS OF INFECTION: (Usually appears 36-48 hours after surgery) Increased temperature (101 degrees Fahrenheit or higher) Redness or swelling Increased pain Foul odor or drainage If you have any questions, please call your doctor at the number listed on your follow-up instructions. Follow Up Care 02/24/2023 13:04:34 With:MARS ESQUIVELMANUFACTURING TECHNOLOGY ANALYST, Neurosurgery Address: [address] [place] [address] [place] [address]- [phone] When:04/12/2023 13:15:00 [facility] 01-09-2024 Anesthesiology Consult note Patient: ARELI RUELAS Age: 62 years Sex: Male : 1960 Associated Diagnoses: None Author: EKATERINA BLUE MD Postoperative Information Post Operative Info: Post op day: Post Anesthesia Care Unit. Patient location: PACU. Assessment Postanesthesia assessment Vitals: Vital signs from flowsheet : Vital Signs 03/28/2023 12:05 EST Temperature Temporal Artery 35.7 DegC Apical Heart Rate 59 bpm LOW Respiratory Rate 16 br/min Systolic Blood Pressure Non-Invasive 162 mmHg HI Diastolic Blood Pressure Non-Invasive 94 mmHg HI 03/28/2023 11:53 EST Temperature Temporal Artery 36.1 DegC Heart Rate Monitored 58 bpm LOW Respiratory Rate 18 br/min Systolic Blood Pressure Non-Invasive 150 mmHg HI Diastolic Blood Pressure Non-Invasive 82 mmHg Mean Arterial Pressure (NBP) 102 mmHg 03/28/2023 11:39 EST Heart Rate Monitored 58 bpm LOW Respiratory Rate 18 br/min Systolic Blood Pressure Non-Invasive 140 mmHg Diastolic Blood Pressure Non-Invasive 87 mmHg Mean Arterial Pressure (NBP) 100 mmHg 03/28/2023 11:24 EST Heart Rate Monitored 61 bpm Respiratory Rate 20 br/min Systolic Blood Pressure Non-Invasive 142 mmHg HI Diastolic Blood Pressure Non-Invasive 79 mmHg Mean Arterial Pressure (NBP) 97 mmHg 03/28/2023 11:11 EST Peripheral Pulse Rate 62 bpm Respiratory Rate 20 br/min 03/28/2023 11:10 EST Heart Rate Monitored 64 bpm Respiratory Rate 22 br/min HI Systolic Blood Pressure Non-Invasive 140 mmHg Diastolic Blood Pressure Non-Invasive 76 mmHg Mean Arterial Pressure (NBP) 95 mmHg 03/28/2023 10:55 EST Systolic Blood Pressure Non-Invasive 139 mmHg Diastolic Blood Pressure Non-Invasive 83 mmHg Mean Arterial Pressure (NBP) 100 mmHg 03/28/2023 10:54 EST Temperature Temporal Artery 36.2 DegC Heart Rate Monitored 74 bpm Respiratory Rate 24 br/min HI Systolic Blood Pressure Non-Invasive 118 mmHg Diastolic Blood Pressure Non-Invasive 94 mmHg HI Mean Arterial Pressure (NBP) 104 mmHg 03/28/2023 10:50 EST Heart Rate Monitored 77 bpm bpm Respiratory Rate - Anes 8 br/min br/min 03/28/2023 10:49 EST Systolic Blood Pressure Non-Invasive 183 mmHg mmHg Diastolic Blood Pressure Non-Invasive 123 mmHg mmHg 03/28/2023 10:48 EST Systolic Blood Pressure Non-Invasive 200 mmHg mmHg Diastolic Blood Pressure Non-Invasive 145 mmHg mmHg 03/28/2023 10:45 EST Heart Rate Monitored 61 bpm bpm Respiratory Rate - Anes 9 br/min br/min 03/28/2023 10:44 EST Systolic Blood Pressure Non-Invasive 126 mmHg mmHg Diastolic Blood Pressure Non-Invasive 93 mmHg mmHg 03/28/2023 10:41 EST Systolic Blood Pressure Non-Invasive 122 mmHg mmHg Diastolic Blood Pressure Non-Invasive 85 mmHg mmHg 03/28/2023 10:40 EST Heart Rate Monitored 62 bpm bpm Respiratory Rate - Anes 8 br/min br/min 03/28/2023 10:38 EST Systolic Blood Pressure Non-Invasive 124 mmHg mmHg Diastolic Blood Pressure Non-Invasive 96 mmHg mmHg 03/28/2023 10:35 EST Temperature (Route Not Specified) 36.17 DegC DegC Heart Rate Monitored 63 bpm bpm Respiratory Rate - Anes 12 br/min br/min Systolic Blood Pressure Non-Invasive 121 mmHg mmHg Diastolic Blood Pressure Non-Invasive 91 mmHg mmHg 03/28/2023 10:31 EST Systolic Blood Pressure Non-Invasive 112 mmHg mmHg Diastolic Blood Pressure Non-Invasive 90 mmHg mmHg 03/28/2023 10:30 EST Temperature (Route Not Specified) 36.16 DegC DegC Heart Rate Monitored 65 bpm bpm Respiratory Rate - Anes 12 br/min br/min 03/28/2023 10:28 EST Systolic Blood Pressure Non-Invasive 102 mmHg mmHg Diastolic Blood Pressure Non-Invasive 78 mmHg mmHg 03/28/2023 10:26 EST Systolic Blood Pressure Non-Invasive 97 mmHg mmHg Diastolic Blood Pressure Non-Invasive 79 mmHg mmHg 03/28/2023 10:25 EST Temperature (Route Not Specified) 36.14 DegC DegC Heart Rate Monitored 64 bpm bpm Respiratory Rate - Anes 12 br/min br/min 03/28/2023 10:23 EST Systolic Blood Pressure Non-Invasive 108 mmHg mmHg Diastolic Blood Pressure Non-Invasive 77 mmHg mmHg 03/28/2023 10:20 EST Temperature (Route Not Specified) 36.09 DegC DegC Heart Rate Monitored 64 bpm bpm Respiratory Rate - Anes 12 br/min br/min Systolic Blood Pressure Non-Invasive 119 mmHg mmHg Diastolic Blood Pressure Non-Invasive 88 mmHg mmHg 03/28/2023 10:16 EST Systolic Blood Pressure Non-Invasive 112 mmHg mmHg Diastolic Blood Pressure Non-Invasive 90 mmHg mmHg 03/28/2023 10:15 EST Temperature (Route Not Specified) 36.06 DegC DegC Heart Rate Monitored 62 bpm bpm Respiratory Rate - Anes 12 br/min br/min 03/28/2023 10:14 EST Systolic Blood Pressure Non-Invasive 109 mmHg mmHg Diastolic Blood Pressure Non-Invasive 74 mmHg mmHg 03/28/2023 10:10 EST Temperature (Route Not Specified) 36.03 DegC DegC Heart Rate Monitored 63 bpm bpm Respiratory Rate - Anes 12 br/min br/min Systolic Blood Pressure Non-Invasive 111 mmHg mmHg Diastolic Blood Pressure Non-Invasive 84 mmHg mmHg 03/28/2023 10:08 EST Systolic Blood Pressure Non-Invasive 111 mmHg mmHg Diastolic Blood Pressure Non-Invasive 83 mmHg mmHg 03/28/2023 10:05 EST Temperature (Route Not Specified) 35.99 DegC DegC Heart Rate Monitored 64 bpm bpm Respiratory Rate - Anes 12 br/min br/min Systolic Blood Pressure Non-Invasive 118 mmHg mmHg Diastolic Blood Pressure Non-Invasive 96 mmHg mmHg 03/28/2023 10:01 EST Systolic Blood Pressure Non-Invasive 123 mmHg mmHg Diastolic Blood Pressure Non-Invasive 96 mmHg mmHg 03/28/2023 10:00 EST Temperature (Route Not Specified) 35.96 DegC DegC Heart Rate Monitored 61 bpm bpm Respiratory Rate - Anes 12 br/min br/min 03/28/2023 9:59 EST Systolic Blood Pressure Non-Invasive 120 mmHg mmHg Diastolic Blood Pressure Non-Invasive 89 mmHg mmHg 03/28/2023 9:55 EST Temperature (Route Not Specified) 35.99 DegC DegC Heart Rate Monitored 62 bpm bpm Respiratory Rate - Anes 12 br/min br/min Systolic Blood Pressure Non-Invasive 116 mmHg mmHg Diastolic Blood Pressure Non-Invasive 88 mmHg mmHg 03/28/2023 9:53 EST Systolic Blood Pressure Non-Invasive 98 mmHg mmHg Diastolic Blood Pressure Non-Invasive 82 mmHg mmHg 03/28/2023 9:50 EST Temperature (Route Not Specified) 36.07 DegC DegC Heart Rate Monitored 51 bpm bpm Respiratory Rate - Anes 12 br/min br/min Systolic Blood Pressure Non-Invasive 101 mmHg mmHg Diastolic Blood Pressure Non-Invasive 72 mmHg mmHg 03/28/2023 9:47 EST Systolic Blood Pressure Non-Invasive 99 mmHg mmHg Diastolic Blood Pressure Non-Invasive 72 mmHg mmHg 03/28/2023 9:45 EST Temperature (Route Not Specified) 36.17 DegC DegC Heart Rate Monitored 55 bpm bpm Respiratory Rate - Anes 12 br/min br/min 03/28/2023 9:44 EST Systolic Blood Pressure Non-Invasive 110 mmHg mmHg Diastolic Blood Pressure Non-Invasive 81 mmHg mmHg 03/28/2023 9:41 EST Systolic Blood Pressure Non-Invasive 114 mmHg mmHg Diastolic Blood Pressure Non-Invasive 85 mmHg mmHg 03/28/2023 9:40 EST Temperature (Route Not Specified) 36.28 DegC DegC Heart Rate Monitored 63 bpm bpm Respiratory Rate - Anes 10 br/min br/min 03/28/2023 9:38 EST Systolic Blood Pressure Non-Invasive 161 mmHg mmHg Diastolic Blood Pressure Non-Invasive 112 mmHg mmHg 03/28/2023 9:35 EST Heart Rate Monitored 55 bpm bpm Respiratory Rate - Anes 10 br/min br/min Systolic Blood Pressure Non-Invasive 138 mmHg mmHg Diastolic Blood Pressure Non-Invasive 94 mmHg mmHg 03/28/2023 9:32 EST Systolic Blood Pressure Non-Invasive 153 mmHg mmHg Diastolic Blood Pressure Non-Invasive 97 mmHg mmHg 03/28/2023 9:30 EST Heart Rate Monitored 69 bpm bpm Respiratory Rate - Anes 22 br/min br/min 03/28/2023 9:29 EST Systolic Blood Pressure Non-Invasive 150 mmHg mmHg Diastolic Blood Pressure Non-Invasive 104 mmHg mmHg 03/28/2023 9:26 EST Systolic Blood Pressure Non-Invasive 179 mmHg mmHg Diastolic Blood Pressure Non-Invasive 104 mmHg mmHg 03/28/2023 9:25 EST Respiratory Rate - Anes 10 br/min br/min (Modified) 03/28/2023 6:29 EST Temperature Temporal Artery 36.1 DegC Peripheral Pulse Rate 46 bpm Respiratory Rate 18 br/min Systolic Blood Pressure Non-Invasive 132 mmHg Diastolic Blood Pressure Non-Invasive 76 mmHg . Mental status: at preoperative baseline. Respiratory function: respirations are non-labored, Stable. Respiratory support: none. CV function: Stable. Cardiovascular support: none. Pain: Satisfactory. Nausea status: Satisfactory. Postoperative hydration status: within normal limits. Notes: Patient is sufficiently recovered from anesthesia to participate in the evaluation. No follow-up care needed. No complications post-anesthesia.. Digitally Signed by EKATERINA BLUE MD on 03/28/2023 01:05 PM [facility] [id number] Summary of episode note Discharge Instructions Thank you for allowing [facility] to assist you with your healthcare needs. The following is importantdischarge information regarding your hospital visit. Your Care Team GAGANDEEP BARCLAY DO Your Diagnosis Preventative health care What to do next Instructions From Your Doctor May resume aspirin and Coumadin on 04/04/23 Please take antibiotic as prescribed. Wear abdominal binder at all times. Notify Dr. Fernández with any questions or concerns prior scheduled visit. 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 -Wear abdominal binder at all times.-Please take prescribed antibiotic as directed., 03/28/23 12:30:00 EST Discharge Diet - Ordered -- No changes were made to your diet during your hospital stay. Please resume your pre hospitalization diet on discharge., 03/28/23 12:30:00 EST The Following Equipment Has Been Ordered for You Discharge Home Equipment Discharge Wound Care - Ordered -- Change dressing 48hrs after surgery, and daily.Keep incision dry for 2 weeks. may shower, but cover incision with plastic wrap to ensure it remains dry. No tub bath, sauna, hot tub, or swimming for at least 6 weeks., 03/28/23 12:30:00 EST The Following Treatments Have Been Ordered for You Discharge Labs No qualifying data available. Discharge Radiology No qualifying data available. Other Therapies No qualifying data available. Post Acute Orders No qualifying data available. Someone Will Contact You Regarding These Home Health Referrals No home referrals have been ordered for you. No one will call you. Allergies Lyrica (Hives) Red Dye (Hives) penicillin (Hives) Medications Please ask your primary doctor or pharmacist before taking any other medication not listed, including over the counter drugs, herbal medications, vitamins and or supplements as they may interact withyour home medications. What How Much When Why Instructions Last Dose New doxycycline (doxycycline hyclate 100 mg oral capsule) 1 cap by mouth Two (2) times a day Duration: 10 Days Pickup at [id number] Unchanged acetaminophen-hydrocodone (acetaminophen-hydrocodone 325 mg-10 mg oral tablet) 1 tab(s) by mouth Four (4) times a day as needed for for pain Chronic pain Lumbar postlaminectomy syndrome Duration: 30 Days Unchanged albuterol (albuterol 2.5 mg/ 3 mL (0.083%) inhalation solution) 3 Milliliter by inhalation Every 4 hours as needed for for wheezing Unchanged albuterol (ProAir HFA MDI (90 mcg/ inh) inhalation aerosol) 2 puff(s) by inhalation Every 4 hours as needed for as needed for wheezing Unchanged allopurinol (allopurinol 100 mg oral tablet) 1 tab(s) by mouth Once a day after a meal Unchanged amLODIPine (amLODIPine 5 mg oral tablet) See instructions TAKE 1 TABLET BY MOUTH EVERY DAY Unchanged atorvastatin (atorvastatin 80 mg oral tablet) 1 tab(s) by mouth Once a day Unchanged carvedilol (carvedilol 6.25 mg oral tablet) 60 EA, 0 Refill(s), take 1 tablet by mouth twice a day Unchanged cephalexin (cephalexin 500 mg oral capsule) 1 cap by mouth Two (2) times a day hx of persistant hip infections post-replacement Unchanged cholecalciferol (Vitamin D3 50 mcg (2000 intl units) oral capsule) 1 cap by mouth Every day Preventative health care Unchanged cloNIDine (cloNIDine 0.1 mg oral tablet) See instructions TAKE 1 TABLET BY MOUTH TWICE A DAY Unchanged fluticasone nasal (fluticasone 50 mcg/ inh NASAL spray) 2 spray(s) each nostril Once a day (in the morning) Unchanged fluticasone-salmeterol (Wixela Inhub 250 mcg-50 mcg inhalation powder) 1 puff(s) by inhalation Two (2) times a day rinse mouth and throat after use Unchanged furosemide (furosemide 40 mg oral tablet) See instructions TAKE 1 TABLET BY MOUTH TWICE A DAY Unchanged hydrALAZINE (hydrALAZINE 50 mg oral tablet) 1 tab(s) by mouth Two (2) times a day Unchanged lisinopril (lisinopril 40 mg oral tablet) 1 tab(s) by mouth Once a day Unchanged potassium chloride (potassium chloride 20 mEq oral tablet, extended release) 1 tab(s) by mouth Once a day Take with food Unchanged promethazine (promethazine 6.25 mg/ 5 mL oral syrup) 5 Milliliter by mouth Four (4) times a day Duration: 30 Days NO RED DYE! Grape flavor ok Unchanged sildenafil (sildenafil 20 mg oral tablet) 3 tab(s) by mouth Every day as needed for erectile dysfunction Erectile dysfunction DO NOT TAKE SAME DAY IF USING ISOSORBID MONONITRATE (IMDUR) Unchanged sotalol (sotalol 80 mg oral tablet) 1 tab(s) by mouth Two (2) times a day Unchanged traZODone (traZODone 50 mg oral tablet) 1 tab(s) by mouth Daily at bedtime as needed for Sleep / Insomnia Pharmacy Information [id number]: [address] [place], [place] [phone] What How Much When Comments Stop Taking aspirin (aspirin 81 mg oral delayed release tablet) 1 tab(s) by mouth Once a day Stop Taking mupirocin topical (mupirocin 2% topical ointment) 1 application Topical Two (2) times a day Bilateral intranasal application twice daily x 5 days pre-surgery &/ or as many days pre-surgery as possible. Stop Taking warfarin (warfarin 4 mg oral tablet) See instructions Take 1 and 1/ 2 tabs (6 mg) on Monday, Monday, Monday, and Monday. Take 2 tabs (8mg) on Monday & Monday. Please take this list to your next doctor s visit. Bring all medications you take, including over the counter medications, herbals and other supplements with you to your doctor s visit. Patients and families are reminded to discard old lists and to update any records with all medication providers or retail pharmacies. Education Materials [facility] SAME DAY SURGERY DISCHARGE INSTRUCTIONS PLEASE FOLLOW THE INSTRUCTIONS BELOW MARKED WITH AN X: __X_Regular Diet: Start with clear liquids, then soup and crackers. Gradually add other foods unless otherwise instructed by your surgeon __X_Drink extra fluids ACTIVTY: __X_Since you have had anesthetic, it would be advisable not to drive, drink alcohol, or make majordecisions over the next 24 hours. You may require more rest tonight and tomorrow __X_Do not drive vehicle while taking narcotics and as directed by your Surgeon ____Restrict activity as follows: ____Do not have sexual intercourse. Nothing in the vagina-No tampons or Douching _x___No heavy lifting, pushing, or straining ____Elevate operative limb ____Ice as directed __X_Follow all written and verbal instructions given to you by your Doctor ____Other: BATHING/SHOWERING ____Sponge bathe until office visit. ____Sitting in tub of warm water may relieve discomfort ____May tub bathe ____May shower in 24-48 hours with clean linen unless otherwise instructed by your Doctor DRESSING: _x___Keep operative area clean and dry _x___Check the operative area for signs of bleeding. Apply pressure to the bleeding site if necessary. ____Change drip pad as needed ____Wear scrotal support for comfort WATCH FOR SIGNS OF INFECTION: (Usually appears 36-48 hours after surgery) Increased temperature (101 degrees Fahrenheit or higher) Redness or swelling Increased pain Foul odor or drainage If you have any questions, please call your doctor at the number listed on your follow-up instructions. Additional Information VACCINATE! IT SAVES LIVES! Members of the community who have not yet received the COVID-19 vaccine and would like to receive it can visit one of [facility] vaccine clinics. There are many vaccine clinic locations within the [facility]. For locations and available times, please visit [email or web address].[email or web address] It is important to note that some COVID mobile vaccine clinics are held outdoors and may be canceled in rainy or stormy conditions. To learn more about pediatric vaccinations (ages 5-11), we invite you to visit the [facility] webpage. [email or web address] learn more about the COVID-19 vaccine, we invite you to visit the CDC website for a list of frequently asked questions.https://www.cdc.gov/coronavirus/2019-ncov/vaccines/faq.html [facility] Patient Portal Access Instructions: Stay connected with your healthcare team and access your personal medical information anytime with the [facility] Patient Portal. Please follow the directions below to create your [facility] account: 1.Access the email account you provided upon registration to the hospital/physician office.2.Look for an invitation email from [facility].3.Open the email and access the invitation link: AcceptInvitation to [facility].4.Fill in the required perez to create your account. To access your account, visit [email or web address]. Click the blue button labeled Access Patient Portal and then log in with the username and password that you created in the steps above. You will be able to view your test results, lab results, a summary of your visits, upcoming appointments and more. There is also a convenient messaging option where you can send secure messages to your p rovider. In addition, you will have the ability to download any documents or summaries to your computer and/or send the information securely to a physician. Remember that your healthcare information is confidential, so carefully consider who you will allowto register on the [facility] Patient Portal for access to your information. You can also access the [facility] Patient Portal on the [facility] ashley. Simply click on Patient Portal and then log into your account. If you would like to receive a full copy of your medical records, please contact the [facility] Medical Records Department by calling [phone], Monday through Monday between 8 a.m. and 4:30 p.m. HOW TO SAFELY DISPOSE OF PRESCRIPTION MEDICATIONS Please use one of the following methods to safely dispose of your unused medications. 1.Use a drug disposal kit: the drug disposal pouch allows you to safely discard your old and unuseddrugs. Ask your nurse to give you one when you are discharged.2.Visit a local take-back location: Many local pharmacies and police departments have programs that collect old and unwanted prescriptiondrugs. Call your local pharmacy or go to [email or web address]/1E4Po3j to find one close to you.3.Make use of household items: Use cat litter or old coffee grounds to dispose medications if other options arenot available. Mix your drugs with these household products, seal them in an airtight container andthrow it into the garbage. Call [facility]: [phone] to be sure your drugs can be disposed of in this way. Some medicines may require a different approach.4.Never flush your medications down the toilet. IF YOU HAVE BEEN PRESCRIBED AN OPIOID FOR PAIN If you have been prescribed an opioid (such as hydrocodone, oxycodone or morphine), it is critical to understand the possible side effects and risks of opioid pain medications. Even when taken as directed, opioids can have several side effects including: Tolerance, meaning you might need to take more of a medication for the same pain relief. Nausea, vomiting and/or constipation. Sleepiness, dizziness, dry mouth, confusion, depression or itching. Physical dependence, meaning you have withdrawal symptoms when a medication is stopped, can develop within a few days. KNOW YOUR RESPONSIBILITIES It is important to know exactly how much and how often to take the opioid pain medications you are prescribed. Never take opioids in higher amounts or more often than prescribed. Do not combine opioids with alcohol or other drugs that cause drowsiness, such as benzodiazepines, also known as benzos, including diazepam and alprazolam, muscle relaxants or sleep aids. Never sell or share prescription opioids. This is illegal. Store opioids in a secure place and out of reach of others (including children, family, friends and visitors). The last page of this document has been signed and retained as a CHART COPY. Signatures Patient Education Materials 1- SDS General Discharge Guidelines (12/02/2022) (CUSTOM) Medication Leaflets My discharge plan and instructions have been reviewed and explained to me and I,ARELI RUELASd my current condition and have read and understand these discharge instructions. I have received a written copy of the plan/instructions. If I have questions, I am aware that I should contact my doctor. 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 Please see intraoperative notes for additional details. I have personally reviewed the images of this examination, and agree with the resident's findings and interpretation. Interpreted by: Trell Means MD Preliminary Report By: Mesfin Tran Electronically signed By Trell Means MD Dictated Date: 03/29/2023 1:36:49 AM Prelim Date: 03/29/2023 1:39:03 AM Sign Date: 03/29/2023 1:43:34 AM [facility]ing [facility]01[facility] Anesthesiology Consult note Patient: ARELI RUELAS Age: 62 years Sex: Male : 1960 Associated Diagnoses: None Author: AZALIA NY MD Preoperative Information Time of last food or liquid consumption: 03/28/2023 00:00:00 Anesthesia history Patient's history: respiratory/cardiac arrest during 2019 back surgery.. Family's history: negative. Health Status Allergies: Allergic Reactions (Selected) Severity Not Documented Lyrica- Hives. Penicillin- Hives. Red Dye- Hives., Allergies (3) ActiveReaction LyricaHives penicillinHives Red DyeHives Current medications: (Selected) Inpatient Medications Ordered LR 1,000 mL: 20 mL/hr, Intravenous, Stop: 03/28/23 22:59:00 EST NS 1,000 mL: 20 mL/hr, Intravenous, Stop: 03/28/23 22:59:00 EST albuterol 2.5 mg/3 mL (0.083%) inhalation solution: 2.5 mg, 3 mL, Inhalation, q4h, PRN: Wheezing allopurinol: 100 mg, 1 tab(s), Oral, qDayPC atorvastatin: 80 mg, 1 tab(s), Oral, qDay fluticasone 50 mcg/inh NASAL spray: 100 mcg, 2 spray(s), Nostril, each, qAM hydrALAZINE: 50 mg, 1 tab(s), Oral, BID lidocaine 1% preservative-free injectable solution: 2.5 mg, 0.25 mL, Intradermal, prep pharm lisinopril: 40 mg, 2 tab(s), Oral, qDay potassium chloride extended release: 20 mEq, 1 tab(s), Oral, qDay promethazine: 6.25 mg, 5 mL, Oral, QID sotalol 80 mg oral tablet: 80 mg, 1 tab(s), Oral, BID traZODone: 50 mg, 1 tab(s), Oral, qHS, PRN: Insomnia Incomplete Vitamin D3 50 mcg (2000 intl units) oral capsule: 2,000 unit(s), 1 cap(s), Oral, Daily Wixela Inhub 250 mcg-50 mcg inhalation powder: 1 puff(s), Inhalation, BID amLODIPine: See Instructions carvedilol 6.25 mg oral tablet: cephalexin 500 mg oral capsule: 500 mg, 1 cap(s), Oral, BID cloNIDine: See Instructions furosemide: See Instructions Prescriptions Prescribed ProAir HFA MDI (90 mcg/inh) inhalation aerosol: 2 puff(s), Inhalation, q4h, PRN: as needed for wheezing, 1 EA, 11 Refill(s) Vitamin D3 50 mcg (2000 intl units) oral capsule: 2,000 unit(s), 1 cap(s), Oral, Daily, 100 cap(s),3 Refill(s) Wixela Inhub 250 mcg-50 mcg inhalation powder: 1 puff(s), Inhalation, BID, rinse mouth and throat after use, 60 EA, 11 Refill(s) acetaminophen-hydrocodone 325 mg-10 mg oral tablet: 1 tab(s), Oral, QID, for 30 day(s), PRN: for pain, 120 tab(s), 0 Refill(s) allopurinol 100 mg oral tablet: 100 mg, 1 tab(s), Oral, qDayPC, 90 tab(s), 0 Refill(s) amLODIPine 5 mg oral tablet: See Instructions, TAKE 1 TABLET BY MOUTH EVERY DAY, 30 tab(s), 0 Refill(s) aspirin 81 mg oral delayed release tablet: 81 mg, 1 tab(s), Oral, qDay, 90 tab(s), 3 Refill(s) atorvastatin 80 mg oral tablet: 80 mg, 1 tab(s), Oral, qDay, 90 tab(s), 3 Refill(s) cephalexin 500 mg oral capsule: 500 mg, 1 cap(s), Oral, BID, hx of persistant hip infections post-replacement, 180 cap(s), 1 Refill(s) cloNIDine 0.1 mg oral tablet: See Instructions, TAKE 1 TABLET BY MOUTH TWICE A DAY, 60 tab(s), 0 Refill(s) fluticasone 50 mcg/inh NASAL spray: 2 spray(s), Nostril, each, qAM, 15.8 mL, 1 Refill(s) furosemide 40 mg oral tablet: See Instructions, TAKE 1 TABLET BY MOUTH TWICE A DAY, 180 tab(s), 1 Refill(s) hydrALAZINE 50 mg oral tablet: 50 mg, 1 tab(s), Oral, BID, 180 tab(s), 0 Refill(s) lisinopril 40 mg oral tablet: 40 mg, 1 tab(s), Oral, qDay, 90 tab(s), 1 Refill(s) mupirocin 2% topical ointment: 1 ashley, Topical, BID, Bilateral intranasal application twice daily x 5 days pre-surgery &/or as many days pre-surgery as possible., 22 gram(s), 0 Refill(s) potassium chloride 20 mEq oral tablet, extended release: 20 mEq, 1 tab(s), Oral, qDay, Take with food, 90 tab(s), 4 Refill(s) promethazine 6.25 mg/5 mL oral syrup: 6.25 mg, 5 mL, Oral, QID, for 30 day(s), NO RED DYE! Grape flavor ok, 180 mL, 2 Refill(s) sildenafil 20 mg oral tablet: 60 mg, 3 tab(s), Oral, Daily, DO NOT TAKE SAME DAY IF USING ISOSORBIDMONONITRATE (IMDUR), PRN: erectile dysfunction, 60 tab(s), 2 Refill(s) sotalol 80 mg oral tablet: 80 mg, 1 tab(s), Oral, BID, 60 tab(s), 0 Refill(s) traZODone 50 mg oral tablet: 50 mg, 1 tab(s), Oral, qHS, PRN: Sleep / Insomnia, 90 tab(s), 1 Refill(s) warfarin 4 mg oral tablet: See Instructions, Take 1 and 1/2 tabs (6 mg) on Monday, Monday, Monday, and Monday. Take 2 tabs (8mg) on Monday & Monday., 150 tab(s), 3 Refill(s) Documented Medications Documented albuterol 2.5 mg/3 mL (0.083%) inhalation solution: 2.5 mg, 3 mL, Inhalation, q4h, PRN: for wheezing, 25 EA, 0 Refill(s) carvedilol 6.25 mg oral tablet: 60 EA, 0 Refill(s), take 1 tablet by mouth twice a day, 0 Refill(s), Medications (13) Active Scheduled: (9) allopurinol 100 mg tablet 100 mg 1 tab(s), Oral, qDayPC atorvastatin 80 mg tablet 80 mg 1 tab(s), Oral, qDay fluticasone nasal 0.05 mg/inh Francis 100 mcg 2 spray(s), Nostril, each, qAM hydralazine 50 mg Tablet 50 mg 1 tab(s), Oral, BID lidocaine 1% (MPF) 2 mL vial pf 2.5 mg 0.25 mL, Intradermal, prep pharm lisinopril 20 mg tablet 40 mg 2 tab(s), Oral, qDay potassium chloride 20 mEq ER tablet 20 mEq 1 tab(s), Oral, qDay promethazine 6.25 mg/5 mL syrup (60mL) 6.25 mg 5 mL, Oral, QID sotalol 80 mg Tablet 80 mg 1 tab(s), Oral, BID Continuous: (2) Lactated Ringers 1,000 mL 1,000 mL, Intravenous, 20 mL/hr NS (0.9% nacl) 1,000 mL 1,000 mL, Intravenous, 20 mL/hr PRN: (2) albuterol 0.083% Soln UD (2.5mg/3 mL) 2.5 mg 3 mL, Inhalation, q4h traZODONE 50 mg Tablet 50 mg 1 tab(s), Oral, qHS Problem list: Medical Angina pectoris / SNOMED CT 588035461 / Confirmed Asthma / SNOMED CT 016595982 / Confirmed Severe obesity (BMI >= 40) / SNOMED CT 5804108992 / Confirmed BMI 40.0-44.9, adult / SNOMED CT 1159477316 / Confirmed BMI 45.0-49.9, adult / SNOMED CT 7924332078 / Confirmed Chronic kidney disease, stage 3a / SNOMED CT 1693250340 / Confirmed COPD mixed type / SNOMED CT 83680961 / Confirmed Chronic pain / SNOMED CT 548605358 / Confirmed Colon cancer screening declined, 2021, 2022 / SNOMED CT 3944720992 / Confirmed Other intervertebral disc degeneration, lumbar region / SNOMED CT 61035240 / Confirmed Diastolic heart failure with preserved ejection fraction / SNOMED CT 0428001517 / Confirmed Difficult intravenous access / SNOMED CT 8402342428 / Confirmed Erectile dysfunction / SNOMED CT 5490322239 / Confirmed Essential hypertension / SNOMED CT 36509608 / Confirmed First degree AV block / SNOMED CT 094603981 / Confirmed Gout / SNOMED CT 731066089 / Confirmed Grade A1 albuminuria / SNOMED CT 4903757778 / Confirmed History of ST elevation myocardial infarction (STEMI) / SNOMED CT 3639013382 / Confirmed History of cardiopulmonary arrest, 2019 during surgery / SNOMED CT 5482062156 / Confirmed History of DVT of lower extremity / SNOMED CT 5877669724 / Confirmed S/P coronary artery stent placement / SNOMED CT 1119469691 / Confirmed Insomnia / SNOMED CT 378799630 / Confirmed Chronic anticoagulation with Warfarin goal 2.0-3.0 / SNOMED CT 6614648278 / Confirmed Lumbar postlaminectomy syndrome / SNOMED CT 866892881 / Confirmed Lumbar spondylosis / SNOMED CT 802630546 / Confirmed Major depressive disorder in remission / SNOMED CT 34923559 / Confirmed Microcytic anemia / SNOMED CT 385906595 / Confirmed Obstructive sleep apnea, intolerent to CPAP / SNOMED CT 347813781 / Confirmed Osteoarthritis / SNOMED CT 9191213992 / Confirmed Numbness and tingling of right leg / SNOMED CT 8944592801 / Confirmed Paroxysmal atrial fibrillation / SNOMED CT 382269329 / Confirmed Polypharmacy / SNOMED CT 963629765 / Confirmed retirement prescription opiate use / SNOMED CT 622129682 / Confirmed Pure hypercholesterolemia / SNOMED CT 422123917 / Confirmed Chronic radicular lumbar pain / SNOMED CT 41374580 / Confirmed Lumbar spinal stenosis / SNOMED CT 48768021 / Confirmed, Active Problems (37) Angina pectoris Asthma BMI 40.0-44.9, adult BMI 45.0-49.9, adult Chronic anticoagulation with Warfarin goal 2.0-3.0 Chronic kidney disease, stage 3a Chronic pain Chronic radicular lumbar pain Colon cancer screening declined, 2021, 2022 COPD mixed type Diastolic heart failure with preserved ejection fraction Difficult intravenous access Erectile dysfunction Essential hypertension First degree AV block Gout Grade A1 albuminuria History of cardiopulmonary arrest, 2019 during surgery History of DVT of lower extremity History of ST elevation myocardial infarction (STEMI) Insomnia retirement prescription opiate use Lumbar postlaminectomy syndrome Lumbar spinal stenosis Lumbar spondylosis Major depressive disorder in remission Microcytic anemia Numbness and tingling of right leg Obstructive sleep apnea, intolerent to CPAP Osteoarthritis Other intervertebral disc degeneration, lumbar region Paroxysmal atrial fibrillation Polypharmacy Pure hypercholesterolemia S/P coronary artery stent placement Severe obesity (BMI >= 40) Tobacco use Histories Past Medical History: Resolved Acute ST elevation myocardial infarction (STEMI) ([id number]): Onset on 03/03/2019 at 58 years. Resolved. Migraine (67591316): Resolved. Family History: Diabetes mellitus Son (Ryan Ruelas) Stable Daughter (Shahla Finch) Comments: 08/19/2020 14:11 Flo Calloway LPN Adopted Diabetes Grandparent Daughter (Shahla Finch) Son (Areli Ruelas 111) Son (Chivo Ruelas) Hemorrhage Mother () Comments: 09/25/2018 15:51 Ekaterina Aguilera LPN of brain Procedure history: PM Inj Spine L/S With Imaging SN on 10/03/2022 at 62 Years. Comments: 10/03/2022 10:44 Gagandeep Howard RN auto-populated from documented surgical case PM Inj Spine L/S With Imaging SN on 08/01/2022 at 62 Years. Comments: 08/01/2022 11:26 Jeremiah Montemayor RN auto-populated from documented surgical case Cardiac catheterization ([id number]) on 03/03/2019 at 58 Years. Stent in branch of right coronary artery ([id number]) on 03/03/2019 at 58 Years. Revision of total hip arthroplasty ([id number]) on 04/22/2016 at 55 Years. Comments: 09/25/2018 15:18 Ekaterina Aguilera LPN Left Hip, Application of Incisional Wound VAC Arthroplasty ([id number]) on 01/21/2016 at 55 Years. Comments: 09/25/2018 15:20 Ekaterina Aguilera LPN Left Hip, Prostalac spacer placement, cemented freedom liner acetabulum Aspiration of soft tissue ([id number]) on 06/29/2015 at 54 Years. Comments: 09/25/2018 15:35 Ekaterina Aguilera LPN Several different procedures on this left thigh for infection of abcess, wound VAC 09/25/2018 15:21 Ekaterina Aguilera LPN Lateral aspect of proximal left thigh Arthroplasty ([id number]) on 12/29/2011 at 51 Years. Comments: 09/25/2018 15:36 Ekaterina Aguilera LPN Revision of Left Hip Diskectomy ([id number]) on 05/02/2011 at 50 Years. Comments: 09/25/2018 15:38 Ekaterina Aguilera LPN and Fusion L5-S1 and L4-L5 Total hip replacement ([id number]) on 11/10/2005 at 45 Years. Comments: 09/25/2018 15:45 Ekaterina Aguilera LPN Left Arthroscopy of knee ([id number]) on 08/29/2001 at 41 Years. Comments: 09/25/2018 15:43 Ekaterina Aguilera LPN Right knee Varicose vein ligation and stripping ([id number]) on 01/17/1999 at 38 Years. Circumcision ([id number]). Injection in back ([id number]). Thumb surgery ([id number]). 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 Substance Abuse 03/28/2023 Use: Never 4Risk Assessment: Denies Substance Abuse Tobacco 03/28/2023 Tobacco Use: 10 or more cigarettes (1/ Tobacco use per day: 10 Number of years: 22 Started at age: 40 Years Smoking Cessation Information Instructed to not smoke d Comment: Tobacco/smoke exposure - daily - 09/25/2018 15:47 - Ekaterina Carney LPN Home/Environment 03/28/2023 Living situation: Home/Independent Safe place to go: Yes 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 Physical Examination Vital Signs 03/28/2023 6:29 EST Temperature Temporal Artery 36.1 DegC Peripheral Pulse Rate 46 bpm Respiratory Rate 18 br/min Systolic Blood Pressure Non-Invasive 132 mmHg Diastolic Blood Pressure Non-Invasive 76 mmHg Vital Signs(last 24 hrs) Last Charted Resp Rate 18 br/min (MAR 28 06:) IMQ096 mmHg (MAR 28:) DBP76 mmHg (MAR 28:) Measurements from flowsheet : Measurements 03/28/2023 6:29 EST Height 180.3 cm Height in inches 71 inch(es) Admission Weight 153.4 kg Weight Lbs 337.5 lb [place] Body Weight 75.26 kg Type of Scale Used Bed scale Admission Body Mass Index 47.19 m2 Pain assessment: Pain Assessment 03/28/2023 6:29 EST Primary Pain Location Lower back Primary Pain Intensity 8 Primary Pain Quality Sharp Primary Pain Pharma Intervention Refused interventions Primary Pain Nonverbal Response Nods Yes Pain Scale Type 0-10 Pain scale . General: Alert and oriented, No acute distress. Airway: Mallampati classification: III (soft palate, base of uvula visible). Dentition Evaluation: Own teeth. Respiratory: Lungs are clear to auscultation. Cardiovascular: Normal rate. Heart Sounds: Normal. Review / Management Results review: Labs (Last four charted values) Plt L 143(MAR 28) PT 13.2(MAR 28) INR 1.2(MAR 28) PTT 30.8(MAR 28) , Lab results 03/28/2023 6:35 EST SN - Preop - CTm Pt Ready for OR/Proced 03/28/2023 6:35 03/28/2023 6:35 EST Platelet 143 10^3/mcL LOW Heparin dose (APTT) Unknown APTT 30.8 seconds Protime 13.2 seconds PT International Ratio 1.2 ratio NA Fibrinogen 487 mg/dL 03/28/2023 6:34 EST Hand Left 03/28/2023 20 gauge Peripheral IV Activity: Insert new site Peripheral IV Dressing Condition: Clean, Dry, Intact Peripheral IV Dressing Activity: Applied Peripheral IV Line Status/Patency: Continuous infusion Peripheral IV Site Condition: No complications Peripheral IV Equipment: Manual Peripheral IV Number of Attempts: 1 03/28/2023 6:33 EST vancomycin 2,000 mg mg Sodium Chloride 0.9% Begin Bag 1,000 mL mL 03/28/2023 6:29 EST Height 180.3 cm Height in inches 71 inch(es) Admission Weight 153.4 kg Weight Lbs 337.5 lb [place] Body Weight 75.26 kg Type of Scale Used Bed scale Admission Body Mass Index 47.19 m2 Temperature Temporal Artery 36.1 DegC Peripheral Pulse Rate 46 bpm Respiratory Rate 18 br/min Systolic Blood Pressure Non-Invasive 132 mmHg Diastolic Blood Pressure Non-Invasive 76 mmHg Primary Pain Location Lower back Primary Pain Intensity 8 Primary Pain Quality Sharp Primary Pain Pharma Intervention Refused interventions Primary Pain Nonverbal Response Nods Yes Pain Scale Type 0-10 Pain scale Nail Bed Color Inchelium Capillary Refill < 2 seconds Heart Rhythm Regular Dorsalis Pedis Pulse, Left 2+ Normal Dorsalis Pedis Pulse, Right 2+ Normal Respirations Unlabored Respiratory Pattern Regular Breath Sounds Auscultated Anterior only All Lobes Breath Sounds Clear Oxygen Therapy Room air Oxygen Saturation 97 % Abdomen Description Non-distended, Soft Abdomen Palpation Non-Tender Bowel Movement Last Date 03/27/2023 Bowel Sounds All Quadrants Present Urinary Elimination Voiding, no difficulties All Extremity Description Normal for ethnicity Skin Temperature Warm Temperature All Extremities Warm Skin Description Normal for ethnicity Skin Integrity Intact Mucous Membrane Color Inchelium Skin Moisture General Dry Extremity Movement Equal Characteristics of Speech Clear Level of Consciousness Alert SARAI Yes Strength All Extremities Moderate Tone All Extremities Normal Sensation All Extremities Intact Affect/Behavior Appropriate, Calm, Cooperative Orientation Oriented x 4 Orientation Assessment Oriented x 4 Pt./Caregiver Remote Cont.Visual Monitor Verbalizes/Nonverbally indicates understanding Assistive Device Cane Activity Status ADL Awake Standard Safety ID band on, Allergy Band on, Call device within reach, Bed in low position, Wheels locked, Upper/Half-Length side-rails up, Phone within reach, personal items within reach 03/28/2023 6:26 EST SN - Preop - CTm Pt in SDS Room 03/28/2023 6:25 03/28/2023 6:26 EST Urinary Elimination Voiding, no difficulties IV Present Present Violence Risk Confused No Violence Risk Irritable No Violence Risk Boisterous No Violence Risk Verbal Threats No Violence Risk Physical Threats No Violence Risk Attacking Objects No Violence Risk Predictor Score 0 Violence Risk Intervention None Violence Risk Current Interventions None Allergies Yes Consent Form Signed Yes Patient Dressed In Hospital gown CHG Preoperative Wash/Wipe Night before procedure, Day of procedure, Site specific wipe Non-CHG Preoperative Shampoo Shampoo, Completed Preop Nasal Swab Povidone-Iodine CHG Skin Prep Completed for Eligible Surgery History & Physical Update On Chart Yes History & Physical On Chart Yes Obstructive Sleep Apnea Assess Completed Yes MRSA/MSSA Protocol Yes Individuals Taught Patient Learning Readiness low motivation level Barriers to Learning None evident Teaching Method Explanation, Printed materials Preferred Spoken Language Peruvian Preferred Written Language Peruvian Disease Process General Education Signs/Symptoms of complications Discharge Planning Education Importance of follow up appt w/physician Pain Medication Education Pain scale Pre Procedure/Surgery Education 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 Safety Measures Education Call light use Belongings At Bedside Cell phone, Glasses, Jacket, Pants, Shirt, Shoes, Socks Personal Home Medications Received Received from patient NPO Status Maintained Allergy Band on and Verified Yes Patient ID Band on and Verified Yes Implants Verified Yes Pacemaker/AICD Verified Yes Site Verified by Patient/Family Yes Last Fluid Intake 03/27/2023 20:00 Last Food Intake 03/27/2023 20:00 Last Void 03/28/2023 6:29 Patient Cleared for Surgery By GAGANDEEP BARCLAY DO Cardiac Clearance For Surgery By POLO OCONNOR MD 03/28/2023 6:17 EST Designated Person #1 We May Share ADAN PARRY [phone] Designated Person #1 Relationship Significant other Designated Person #2 We May Share ADAN James ([phone]) Designated Person #2 Relationship Friend Privacy Restrictions Requested None Status N/A Sensory Deficits None Diagnosed With Sleep Apnea Yes Advanced Directives No - refuses information Infectious Disease Symptoms Patient states no symptoms Infectious Disease Recent Exposure No Alcohol and Drug Use No Employee of Institutional Living No Health Care Employee No History of Exposure to TB No History of Positive Chest X-Ray for TB No History of Positive TB Skin Test No Homeless No Known Immunosuppression No Recent Immigrant No Resident of Institutional Living No Bloody Sputum No Fatigue No Fever No Loss of Appetite No Night Sweats No Persistent Cough > 3 Weeks No Weight Loss No Surgery Scheduled On Date/Time 03/28/2023 9:00 Patient Aware Date/Time Of Surgery Yes Arrival Time the Day of Surgery 03/28/2023 6:00 Patient Aware of Arrival Time Yes Previous Surgery At This Facility No Pre-Op Patient Education NPO after midnight, No smoking after midnight, No jewelry, Responsible Green Party, Aware of surgery location, Pre-op education done, 2 bottles CHG wash with instructions given, Instructed to take ordered medications, VTE prevention handout given, SSI prevention handout given, MRSA protocol education provided SN - Preprocedure Comments Spoke with patient, Verbalizes/Nonverbally indicates understanding Barriers to Learning None evident Teaching Method Explanation Preferred Spoken Language Peruvian Preferred Written Language Peruvian Teaching Evaluation Verbalizes/Nonverbally indicates understanding Safety Brochure Information Reviewed Yes [facility]thia Meyer Video Viewed Yes Information Given by Patient Patient's Current Physicians Patient's Current Physicians Discharge To, Anticipated Home independently Prev Test Positive/Diagnosis w/COVID-19 No Current Quarantine/Isolated any Illness No Any Contact with Sick Animals/Birds No Traveled Anywhere in Last 30 Days No Lost Weight Unintentionally Recently No Eat Poorly Due to Decreased Appetite No Total MST Score 0 N/A Personal Devices, Patient Valuables Assistive devices, Glasses Anesthesia/Transfusions Prior anesthesia Admission Note-Nursing Same Day Patient History 03/27/2023 16:23 EST Patient Instructions Documentation Patient Instructions Documentation 03/27/2023 14:57 EST Surgery Scheduled On Date/Time 03/28/2023 9:00 Arrival Time the Day of Surgery 03/28/2023 6:00 Patient Aware of Arrival Time Yes Pre-Op Patient Education NPO after midnight, No smoking after midnight, No jewelry, Responsible Green Party, Aware of surgery location, Pre-op education done, 2 bottles CHG wash with instructions given, Instructed to take ordered medications, VTE prevention handout given, SSI prevention handout given, MRSA protocol education provided (Modified) SN - Preprocedure Comments Spoke with patient, Verbalizes/Nonverbally indicates understanding Admission Note-Nursing Patient History PreTest (Modified) 03/27/2023 11:08 EST CSummary CSUMMARY 03/27/2023 0:00 EST Medical/Surgical Clearance Scanned Cardiac Clearance Scanned . Assessment and Plan Citizen Of [place] Society of Anesthesiologists (ASA) physical status classification: Class IV, CAD; hx STEMI; HTN; super obesity; CRISTELA; afib; asthma; COPD. Anesthetic Preoperative Plan Anesthetic technique: General. Maintenance airway: Oral endotracheal tube. Risks discussed: nausea, vomiting, headache, sore throat, dental injury, hypotension, allergic reaction, serious complications. Informed consent: signed by patient. Notes: Mr. Ruelas was seen and examined by me, Azalia Ny MD. The medical record was reviewed.Consultations, lab results , radiographic results and cardiovascular studies examined and noted. Records regarding prior surgeries and anesthetics reviewed. Anesthesia was explained in detail and questions were invited and answered. We will proceed as outlined in the plan above.. Digitally Signed by AZALIA NY MD on 03/28/2023 08:00 AM Digitally Signed by AZALIA NY MD on 03/28/2023 08:16 AM [id number] Note ORIGINAL Images acquired, not reported on this accession number.[facility]10-23-2023 Hospital Discharge instructions Patient Education 01/09/2023 12:55:13 Monitored Anesthesia Care, Care After Monitored Anesthesia Care, Care After These instructions provide you with information about caring for yourself after your procedure. Your health care provider may also give you more specific instructions. Your treatment has been plannedaccording to current medical practices, but problems sometimes occur. Call your health care provider if you have any problems or questions after your procedure. What can I expect after the procedure? After your procedure, you may: Feel sleepy for several hours. Feel clumsy and have poor balance for several hours. Feel forgetful about what happened after the procedure. Have poor judgment for several hours. Feel nauseous or vomit. Have a sore throat if you had a breathing tube during the procedure. Follow these instructions at home: For at least 24 hours after the procedure: Have a responsible adult stay with you. It is important to have someone help care for you until youare awake and alert. Rest as needed. Do not: ?Participate in activities in which you could fall or become injured. ?Drive. ?Use heavy machinery. ?Drink alcohol. ?Take sleeping pills or medicines that cause drowsiness. ?Make important decisions or sign legal documents. ?Take care of children on your own. Eating and drinking Follow the diet that is recommended by your health care provider. If you vomit, drink water, juice, or soup when you can drink without vomiting. Make sure you have little or no nausea before eating solid foods. General instructions Take xowr-qrz-[id number] and prescription medicines only as told by your health care provider. If you have sleep apnea, surgery and certain medicines can increase your risk for breathing problems. Follow instructions from your health care provider about wearing your sleep device: ?Anytime you are sleeping, including during daytime naps. ?While taking prescription pain medicines, sleeping medicines, or medicines that make you drowsy. If you smoke, do not smoke without supervision. Keep all follow-up visits as told by your health care provider. This is important. Contact a health care provider if: You keep feeling nauseous or you keep vomiting. You feel light-headed. You develop a rash. You have a fever. Get help right away if: You have trouble breathing. Summary For several hours after your procedure, you may feel sleepy and have poor judgment. Have a responsible adult stay with you for at least 24 hours or until you are awake and alert. This information is not intended to replace advice given to you by your health care provider. Make sure you discuss any questions you have with your health care provider. Document Released: 06/26/2016 Document Revised: 06/04/2018 Document Reviewed: 06/26/2016 [employer] Patient Education 2020 [employer]. 01/09/2023 12:54:23 Epidural Steroid Injection Epidural Steroid Injection An epidural steroid injection is a shot of steroid medicine and numbing medicine that is given intothe space between the spinal cord and the bones in your back (epidural space). The shot helps relieve pain caused by an irritated or swollen nerve root. The amount of pain relief you get from the injection depends on what is causing the nerve to be swollen and irritated, and how long your pain lasts. You are more likely to benefit from this injectionif your pain is strong and comes on suddenly rather than if you have had pain for a long time. Tell a health care provider about: Any allergies you have. All medicines you are taking, including vitamins, herbs, eye drops, creams, and ntjn-szk-okizfsm medicines. Any problems you or family members have had with anesthetic medicines. Any blood disorders you have. Any surgeries you have had. Any medical conditions you have. Whether you are or may be . What are the risks? Generally, this is a safe procedure. However, problems may occur, including: Headache. Bleeding. Infection. Allergic reaction to medicines. Damage to your nerves. What happens before the procedure? Staying hydrated Follow instructions from your health care provider about hydration, which may include: Up to 2 hours before the procedure you may continue to drink clear liquids, such as water, clear fruit juice, black coffee, and plain tea. Eating and drinking restrictions Follow instructions from your health care provider about eating and drinking, which may include: 8 hours before the procedure stop eating heavy meals or foods such as meat, fried foods, or fatty foods. 6 hours before the procedure stop eating light meals or foods, such as toast or cereal. 6 hours before the procedure stop drinking milk or drinks that contain milk. 2 hours before the procedure stop drinking clear liquids. Medicine You may be given medicines to lower anxiety. Ask your health care provider about: ?Changing or stopping your regular medicines. This is especially important if you are taking diabetes medicines or blood thinners. ?Taking medicines such as aspirin and ibuprofen. These medicines can thin your blood. Do not take these medicines before your procedure if your health care provider instructs you not to. General instructions Plan to have someone take you home from the hospital or clinic. What happens during the procedure? You may receive a medicine to help you relax (sedative). You will be asked to lie on your abdomen. The injection site will be cleaned. A numbing medicine (local anesthetic) will be used to numb the injection site. A needle will be inserted through your skin into the epidural space. You may feel some discomfort when this happens. An X-ray machine will be used to make sure the needle is put as close as possible to the affected nerve. A steroid medicine and a local anesthetic will be injected into the epidural space. The needle will be removed. A bandage (dressing) will be put over the injection site. What happens after the procedure? Your blood pressure, heart rate, breathing rate, and blood oxygen level will be monitored until themedicines you were given have worn off. Your arm or leg may feel weak or numb for a few hours. The injection site may feel sore. Do not drive for 24 hours if you received a sedative. This information is not intended to replace advice given to you by your health care provider. Make sure you discuss any questions you have with your health care provider. Document Released: 06/12/2008 Document Revised: 02/16/2018 Document Reviewed: 06/21/2016 Get[employer] Patient Education 2020 [employer]. [facility] 10-23-2023 Summary of episode note Discharge Instructions Thank you for allowing [facility] to assist you with your healthcare needs. The following is importantdischarge information regarding your hospital visit. Your Care Team GAGANDEEP BARCLAY DO Your Diagnosis Chronic pain Chronic radicular lumbar pain Lumbar postlaminectomy syndrome What to do next Scheduled Follow-Up Appointments Appointment Type When With Where Contact InformationPM OV 01/16/2023 12:45 PM EDT POLO ROD [facility] POC Established Patient 01/18/2023 10:30 AM EDT [facility] [phone] PC OV 02/28/2023 11:00 AM EST GAGANDEEP BARCLAY DO [facility] [address] [phone] Allergies Lyrica (Hives) Red Dye (Hives) penicillin (Hives) Medications Please ask your primary doctor or pharmacist before taking any other medication not listed, including over the counter drugs, herbal medications, vitamins and or supplements as they may interact withyour home medications. What How Much When Why Instructions Last Dose Unchanged acetaminophen- hydrocodone (acetaminophen-hydrocodone 325 mg-10 mg oral tablet) 1 tab(s) by mouth Every 6 hours as needed for for pain Chronic pain Chronic radicular lumbar pain Duration: 30 Days Unchanged acetaminophen-hydrocodone (acetaminophen-hydrocodone 325 mg-7.5 mg oral tablet) 1 tab(s) by mouth Four (4) times a day as needed for as needed for pain Lumbar spondylosis Lumbar spinal stenosis Duration: 30 Days Unchanged albuterol (albuterol 2.5 mg/ 3 mL (0.083%) inhalation solution) 3 Milliliter by inhalation Every 4 hours as needed for for wheezing Unchanged albuterol (ProAir HFA MDI (90 mcg/ inh) inhalation aerosol) 2 puff(s) by inhalation Every 4 hours as needed for as needed for wheezing Unchanged allopurinol (allopurinol 100 mg oral tablet) 1 tab(s) by mouth Once a day after a meal Unchanged amLODIPine (amLODIPine 5 mg oral tablet) See instructions TAKE 1 TABLET BY MOUTH EVERY DAY Unchanged aspirin (aspirin 81 mg oral delayed release tablet) 1 tab(s) by mouth Once a day Unchanged atorvastatin (atorvastatin 80 mg oral tablet) 1 tab(s) by mouth Once a day Unchanged carvedilol (carvedilol 6.25 mg oral tablet) 1 tab(s) by mouth Two (2) times a day Unchanged cephalexin (cephalexin 500 mg oral capsule) 1 cap by mouth Every 12 hours Unchanged cholecalciferol (Vitamin D3 50 mcg (2000 intl units) oral capsule) 1 cap by mouth Every day Preventative health care Unchanged cloNIDine (cloNIDine 0.1 mg oral tablet) See instructions TAKE 1 TABLET BY MOUTH TWICE A DAY Unchanged fluticasone nasal (fluticasone 50 mcg/ inh NASAL spray) 2 spray(s) each nostril Once a day (in the morning) Unchanged fluticasone-salmeterol (Wixela Inhub 250 mcg-50 mcg inhalation powder) 1 puff(s) by inhalation Two (2) times a day rinse mouth and throat after use Unchanged furosemide (furosemide 40 mg oral tablet) See instructions TAKE 1 TABLET BY MOUTH TWICE A DAY Unchanged hydrALAZINE (hydrALAZINE 50 mg oral tablet) 1 tab(s) by mouth Two (2) times a day Unchanged isosorbide mononitrate (isosorbide mononitrate 60 mg oral tablet, extended release) 1 tab(s) by mouth Every day TAKE 1 TABLET BY MOUTH EVERY DAY Unchanged lisinopril (lisinopril 40 mg oral tablet) 1 tab(s) by mouth Once a day Unchanged potassium chloride (potassium chloride 20 mEq oral tablet, extended release) 1 tab(s) by mouth Once a day Take with food Unchanged promethazine (promethazine 6.25 mg/ 5 mL oral syrup) 5 Milliliter by mouth Four (4) times a day Duration: 30 Days NO RED DYE! Grape flavor ok Unchanged sildenafil (sildenafil 20 mg oral tablet) 3 tab(s) by mouth Every day as needed for erectile dysfunction Erectile dysfunction DO NOT TAKE SAME DAY IF USING ISOSORBID MONONITRATE (IMDUR) Unchanged sotalol (sotalol 80 mg oral tablet) 1 tab(s) by mouth Two (2) times a day Unchanged traZODone (traZODone 50 mg oral tablet) 1 tab(s) by mouth Daily at bedtime as needed for Sleep / Insomnia Unchanged warfarin (warfarin 4 mg oral tablet) See instructions Take 1 and 1/ 2 tabs (6 mg) on Monday, Monday, Monday, and Monday. Take 2 tabs (8mg) on Monday & Monday. Please take this list to your next doctor s visit. Bring all medications you take, including over the counter medications, herbals and other supplements with you to your doctor s visit. Patients and families are reminded to discard old lists and to update any records with all medication providers or retail pharmacies. Education Materials Monitored Anesthesia Care, Care After These instructions provide you with information about caring for yourself after your procedure. Your health care provider may also give you more specific instructions. Your treatment has been plannedaccording to current medical practices, but problems sometimes occur. Call your health care provider if you have any problems or questions after your procedure. What can I expect after the procedure? After your procedure, you may: Feel sleepy for several hours. Feel clumsy and have poor balance for several hours. Feel forgetful about what happened after the procedure. Have poor judgment for several hours. Feel nauseous or vomit. Have a sore throat if you had a breathing tube during the procedure. Follow these instructions at home: For at least 24 hours after the procedure: Have a responsible adult stay with you. It is important to have someone help care for you until youare awake and alert. Rest as needed. Do not: ? Participate in activities in which you could fall or become injured. ? Drive. ? Use heavy machinery. ? Drink alcohol. ? Take sleeping pills or medicines that cause drowsiness. ? Make important decisions or sign legal documents. ? Take care of children on your own. Eating and drinking Follow the diet that is recommended by your health care provider. If you vomit, drink water, juice, or soup when you can drink without vomiting. Make sure you have little or no nausea before eating solid foods. General instructions Take viuy-afx-csztyyi and prescription medicines only as told by your health care provider. If you have sleep apnea, surgery and certain medicines can increase your risk for breathing problems. Follow instructions from your health care provider about wearing your sleep device: ? Anytime you are sleeping, including during daytime naps. ? While taking prescription pain medicines, sleeping medicines, or medicines that make you drowsy. If you smoke, do not smoke without supervision. Keep all follow-up visits as told by your health care provider. This is important. Contact a health care provider if: You keep feeling nauseous or you keep vomiting. You feel light-headed. You develop a rash. You have a fever. Get help right away if: You have trouble breathing. Summary For several hours after your procedure, you may feel sleepy and have poor judgment. Have a responsible adult stay with you for at least 24 hours or until you are awake and alert. This information is not intended to replace advice given to you by your health care provider. Make sure you discuss any questions you have with your health care provider. Document Released: 06/26/2016 Document Revised: 06/04/2018 Document Reviewed: 06/26/2016 GetApp Patient Education 2020 [employer]. Epidural Steroid Injection An epidural steroid injection is a shot of steroid medicine and numbing medicine that is given intothe space between the spinal cord and the bones in your back (epidural space). The shot helps relieve pain caused by an irritated or swollen nerve root. The amount of pain relief you get from the injection depends on what is causing the nerve to be swollen and irritated, and how long your pain lasts. You are more likely to benefit from this injectionif your pain is strong and comes on suddenly rather than if you have had pain for a long time. Tell a health care provider about: Any allergies you have. All medicines you are taking, including vitamins, herbs, eye drops, creams, and vjrv-eck-yqxbjtz medicines. Any problems you or family members have had with anesthetic medicines. Any blood disorders you have. Any surgeries you have had. Any medical conditions you have. Whether you are or may be . What are the risks? Generally, this is a safe procedure. However, problems may occur, including: Headache. Bleeding. Infection. Allergic reaction to medicines. Damage to your nerves. What happens before the procedure? Staying hydrated Follow instructions from your health care provider about hydration, which may include: Up to 2 hours before the procedure you may continue to drink clear liquids, such as water, clear fruit juice, black coffee, and plain tea. Eating and drinking restrictions Follow instructions from your health care provider about eating and drinking, which may include: 8 hours before the procedure stop eating heavy meals or foods such as meat, fried foods, or fatty foods. 6 hours before the procedure stop eating light meals or foods, such as toast or cereal. 6 hours before the procedure stop drinking milk or drinks that contain milk. 2 hours before the procedure stop drinking clear liquids. Medicine You may be given medicines to lower anxiety. Ask your health care provider about: ? Changing or stopping your regular medicines. This is especially important if you are taking diabetes medicines or blood thinners. ? Taking medicines such as aspirin and ibuprofen. These medicines can thin your blood. Do not take these medicines before your procedure if your health care provider instructs you not to. General instructions Plan to have someone take you home from the hospital or clinic. What happens during the procedure? You may receive a medicine to help you relax (sedative). You will be asked to lie on your abdomen. The injection site will be cleaned. A numbing medicine (local anesthetic) will be used to numb the injection site. A needle will be inserted through your skin into the epidural space. You may feel some discomfort when this happens. An X-ray machine will be used to make sure the needle is put as close as possible to the affected nerve. A steroid medicine and a local anesthetic will be injected into the epidural space. The needle will be removed. A bandage (dressing) will be put over the injection site. What happens after the procedure? Your blood pressure, heart rate, breathing rate, and blood oxygen level will be monitored until themedicines you were given have worn off. Your arm or leg may feel weak or numb for a few hours. The injection site may feel sore. Do not drive for 24 hours if you received a sedative. This information is not intended to replace advice given to you by your health care provider. Make sure you discuss any questions you have with your health care provider. Document Released: 06/12/2008 Document Revised: 02/16/2018 Document Reviewed: 06/21/2016 Elsevier Patient Education 2020 [employer]. Additional Information VACCINATE! IT SAVES LIVES! Members of the community who have not yet received the COVID-19 vaccine and would like to receive it can visit one of [facility] vaccine clinics. There are many vaccine clinic locations within the [facility]. For locations and available times, please visit https://[email or web address].[place].gov/. It is important to note that some COVID mobile vaccine clinics are held outdoors and may be canceled in rainy or stormy conditions. To learn more about pediatric vaccinations (ages 5-11), we invite you to visit the [facility] webpage. [email or web address]/[email or web address] [email or web address] learn more about the COVID-19 vaccine, we invite you to visit the CDC website for a list of frequently asked questions.https://www.cdc.gov/coronavirus/2019-ncov/vaccines/faq.html [facility] Patient Portal Access Instructions: Stay connected with your healthcare team and access your personal medical information anytime with the [facility] Patient Portal. Please follow the directions below to create your [facility] account: 1.Access the email account you provided upon registration to the hospital/physician office.2.Look for an invitation email from [facility].3.Open the email and access the invitation link: AcceptInvitation to [facility].4.Fill in the required perez to create your account. To access your account, visit People and Pages/Victorioushart. Click the blue button labeled Access Patient Portal and then log in with the username and password that you created in the steps above. You will be able to view your test results, lab results, a summary of your visits, upcoming appointments and more. There is also a convenient messaging option where you can send secure messages to your p Microbondsvider. In addition, you will have the ability to download any documents or summaries to your computer and/or send the information securely to a physician. Remember that your healthcare information is confidential, so carefully consider who you will allowto register on the [facility] Patient Portal for access to your information. You can also access the [facility] Patient Portal on the [facility] ashley. Simply click on Patient Portal and then log into your account. If you would like to receive a full copy of your medical records, please contact the [facility] Medical Records Department by calling [phone], Monday through Monday between 8 a.m. and 4:30 p.m. HOW TO SAFELY DISPOSE OF PRESCRIPTION MEDICATIONS Please use one of the following methods to safely dispose of your unused medications. 1.Use a drug disposal kit: the drug disposal pouch allows you to safely discard your old and unuseddrugs. Ask your nurse to give you one when you are discharged.2.Visit a local take-back location: Many local pharmacies and police departments have programs that collect old and unwanted prescriptiondrugs. Call your local pharmacy or go to [email or web address]/2E9Ok9b to find one close to you.3.Make use of household items: Use cat litter or old coffee grounds to dispose medications if other options arenot available. Mix your drugs with these household products, seal them in an airtight container andthrow it into the garbage. Call [facility]: [phone] to be sure your drugs can be disposed of in this way. Some medicines may require a different approach.4.Never flush your medications down the toilet. IF YOU HAVE BEEN PRESCRIBED AN OPIOID FOR PAIN If you have been prescribed an opioid (such as hydrocodone, oxycodone or morphine), it is critical to understand the possible side effects and risks of opioid pain medications. Even when taken as directed, opioids can have several side effects including: Tolerance, meaning you might need to take more of a medication for the same pain relief. Nausea, vomiting and/or constipation. Sleepiness, dizziness, dry mouth, confusion, depression or itching. Physical dependence, meaning you have withdrawal symptoms when a medication is stopped, can develop within a few days. KNOW YOUR RESPONSIBILITIES It is important to know exactly how much and how often to take the opioid pain medications you are prescribed. Never take opioids in higher amounts or more often than prescribed. Do not combine opioids with alcohol or other drugs that cause drowsiness, such as benzodiazepines, also known as benzos, including diazepam and alprazolam, muscle relaxants or sleep aids. Never sell or share prescription opioids. This is illegal. Store opioids in a secure place and out of reach of others (including children, family, friends and visitors). The last page of this document has been signed and retained as a CHART COPY. Signatures Patient Education Materials Monitored Anesthesia Care, Care After Epidural Steroid Injection Medication Leaflets My discharge plan and instructions have been reviewed and explained to me and IRAEANN HARRISON Bunderstand my current condition and have read and understand these discharge instructions. I have received a written copy of the plan/instructions. If I have questions, I am aware that I should contact my doctor. Patient/Nuclear Medicine Officer Signature: Date/Time: Relationship to Patient: Witness Name/Signature: Date/Time: [facility]10-23-2023 Anesthesiology Consult note Patient: ARELI RUELAS Age: 62 years Sex: Male : 1960 Associated Diagnoses: None Author: PAPI DURHAM APRN-SWAPNA Preoperative Information Time of last food or liquid consumption: 01/08/2023 23:59:00 Anesthesia history Patient's history: negative. Family's history: negative. Review of Systems Ear/Nose/Mouth/Throat: Negative except as documented in history of present illness. Respiratory: Negative except as documented in history of present illness. Cardiovascular: Negative except as documented in history of present illness. Gastrointestinal: Negative except as documented in history of present illness. Genitourinary: Negative except as documented in history of present illness. Endocrine: Negative except as documented in history of present illness. Musculoskeletal: Negative except as documented in history of present illness. Integumentary: Negative except as documented in history of present illness. Neurologic: Negative except as documented in history of present illness. Health Status Allergies: Allergic Reactions (Selected) Severity Not Documented Lyrica- Hives. Penicillin- Hives. Red Dye- Hives., Allergies (3) ActiveReaction LyricaHives penicillinHives Red DyeHives Current medications: (Selected) Inpatient Medications Ordered LR 1,000 mL: 150 mL/hr, Intravenous Prescriptions Prescribed ProAir HFA MDI (90 mcg/inh) inhalation aerosol: 2 puff(s), Inhalation, q4h, PRN: as needed for wheezing, 1 EA, 11 Refill(s) Vitamin D3 50 mcg (2000 intl units) oral capsule: 2,000 unit(s), 1 cap(s), Oral, Daily, 100 cap(s),3 Refill(s) Wixela Inhub 250 mcg-50 mcg inhalation powder: 1 puff(s), Inhalation, BID, rinse mouth and throat after use, 60 EA, 11 Refill(s) acetaminophen-hydrocodone 325 mg-10 mg oral tablet: 1 tab(s), Oral, q6h, for 30 day(s), PRN: for pain, 120 tab(s), 0 Refill(s) acetaminophen-hydrocodone 325 mg-7.5 mg oral tablet: 1 tab(s), Oral, QID, for 30 day(s), PRN: as needed for pain, 120 tab(s), 0 Refill(s) allopurinol 100 mg oral tablet: 100 mg, 1 tab(s), Oral, qDayPC, 90 tab(s), 1 Refill(s) amLODIPine 5 mg oral tablet: See Instructions, TAKE 1 TABLET BY MOUTH EVERY DAY, 90 tab(s), 1 Refill(s) aspirin 81 mg oral delayed release tablet: 81 mg, 1 tab(s), Oral, qDay, 90 tab(s), 3 Refill(s) atorvastatin 80 mg oral tablet: 80 mg, 1 tab(s), Oral, qDay, 90 tab(s), 3 Refill(s) carvedilol 6.25 mg oral tablet: 6.25 mg, 1 tab(s), Oral, BID, 180 tab(s), 1 Refill(s) cephalexin 500 mg oral capsule: 500 mg, 1 cap(s), Oral, q12h, 180 cap(s), 1 Refill(s) cloNIDine 0.1 mg oral tablet: See Instructions, TAKE 1 TABLET BY MOUTH TWICE A DAY, 180 tab(s), 1 Refill(s) fluticasone 50 mcg/inh NASAL spray: 2 spray(s), Nostril, each, qAM, 15.8 mL, 1 Refill(s) furosemide 40 mg oral tablet: See Instructions, TAKE 1 TABLET BY MOUTH TWICE A DAY, 180 tab(s), 1 Refill(s) hydrALAZINE 50 mg oral tablet: 50 mg, 1 tab(s), Oral, BID, 180 tab(s), 0 Refill(s) isosorbide mononitrate 60 mg oral tablet, extended release: 60 mg, 1 tab(s), Oral, Daily, TAKE 1 TABLET BY MOUTH EVERY DAY, 7 tab(s), 0 Refill(s) lisinopril 40 mg oral tablet: 40 mg, 1 tab(s), Oral, qDay, 90 tab(s), 1 Refill(s) potassium chloride 20 mEq oral tablet, extended release: 20 mEq, 1 tab(s), Oral, qDay, Take with food, 90 tab(s), 4 Refill(s) promethazine 6.25 mg/5 mL oral syrup: 6.25 mg, 5 mL, Oral, QID, for 30 day(s), NO RED DYE! Grape flavor ok, 180 mL, 2 Refill(s) sildenafil 20 mg oral tablet: 60 mg, 3 tab(s), Oral, Daily, DO NOT TAKE SAME DAY IF USING ISOSORBIDMONONITRATE (IMDUR), PRN: erectile dysfunction, 60 tab(s), 2 Refill(s) sotalol 80 mg oral tablet: 80 mg, 1 tab(s), Oral, BID, 180 tab(s), 1 Refill(s) traZODone 50 mg oral tablet: 50 mg, 1 tab(s), Oral, qHS, PRN: Sleep / Insomnia, 90 tab(s), 1 Refill(s) warfarin 4 mg oral tablet: See Instructions, Take 1 and 1/2 tabs (6 mg) on Monday, Monday, Monday, and Monday. Take 2 tabs (8mg) on Monday & Monday., 150 tab(s), 3 Refill(s) Documented Medications Documented albuterol 2.5 mg/3 mL (0.083%) inhalation solution: 2.5 mg, 3 mL, Inhalation, q4h, PRN: for wheezing, 25 EA, 0 Refill(s), Medications (1) Active Scheduled: (0) Continuous: (1) Lactated Ringers 1,000 mL 1,000 mL, Intravenous, 150 mL/hr PRN: (0) Problem list: Medical Angina pectoris / SNOMED CT 281590830 / Confirmed Severe obesity (BMI >= 40) / SNOMED CT 0693151064 / Confirmed BMI 40.0-44.9, adult / SNOMED CT 3511424862 / Confirmed Chronic kidney disease, stage 3a / SNOMED CT 4809517066 / Confirmed COPD mixed type / SNOMED CT 83617614 / Confirmed Chronic pain / SNOMED CT 652261659 / Confirmed Colon cancer screening declined, recheck Spring 2022 / SNOMED CT 3947915488 / Confirmed Other intervertebral disc degeneration, lumbar region / SNOMED CT 99050241 / Confirmed Diastolic heart failure with preserved ejection fraction / SNOMED CT 5816401743 / Confirmed Erectile dysfunction / SNOMED CT 1888981432 / Confirmed Essential hypertension / SNOMED CT 77119902 / Confirmed Gout / SNOMED CT 330607901 / Confirmed Grade A1 albuminuria / SNOMED CT 1493954266 / Confirmed History of DVT of lower extremity / SNOMED CT 3583643271 / Confirmed S/P coronary artery stent placement / SNOMED CT 2424527469 / Confirmed Insomnia / SNOMED CT 876403817 / Confirmed Chronic anticoagulation with Warfarin goal 2.0-3.0 / SNOMED CT 2558894164 / Confirmed Lumbar postlaminectomy syndrome / SNOMED CT 826849281 / Confirmed Lumbar spondylosis / SNOMED CT 252761318 / Confirmed Major depressive disorder in remission / SNOMED CT 41322618 / Confirmed Microcytic anemia / SNOMED CT 512678906 / Confirmed Migraine / SNOMED CT 52627882 / Confirmed Obstructive sleep apnea, intolerent to CPAP / SNOMED CT 861504255 / Confirmed Osteoarthritis / SNOMED CT 4499360928 / Confirmed Paroxysmal atrial fibrillation / SNOMED CT 249819132 / Confirmed Polypharmacy / SNOMED CT 159995603 / Confirmed termination clerk prescription 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 use / SNOMED CT 281499301 / Confirmed Pure hypercholesterolemia / SNOMED CT 366814119 / Confirmed Chronic radicular lumbar pain / SNOMED CT 34394139 / Confirmed Lumbar spinal stenosis / SNOMED CT 11626890 / Confirmed Canceled: Decreased renal function / SNOMED CT 31104500 Canceled: BMI 45.0-49.9, adult / SNOMED CT 5647163155 Canceled: COPD - Chronic obstructive pulmonary disease / SNOMED CT 064962736 Canceled: Depressive disorder / SNOMED CT 93492853 Canceled: Grade A3 albuminuria / SNOMED CT 0606512716 Canceled: Hypertension / SNOMED CT 59593602 Canceled: HTN (hypertension) / SNOMED CT 7786804514 Canceled: Wellness examination / SNOMED CT 795990230 Canceled: termination clerk prescription opiate use / SNOMED CT 016365072, Active Problems (31) Angina pectoris BMI 40.0-44.9, adult Chronic anticoagulation with Warfarin goal 2.0-3.0 Chronic kidney disease, stage 3a Chronic pain Chronic radicular lumbar pain Colon cancer screening declined, recheck Spring 2022 COPD mixed type Diastolic heart failure with preserved ejection fraction Erectile dysfunction Essential hypertension Gout Grade A1 albuminuria History of DVT of lower extremity Insomnia retirement prescription opiate use Lumbar postlaminectomy syndrome Lumbar spinal stenosis Lumbar spondylosis Major depressive disorder in remission Microcytic anemia Migraine Obstructive sleep apnea, intolerent to CPAP Osteoarthritis Other intervertebral disc degeneration, lumbar region Paroxysmal atrial fibrillation Polypharmacy Pure hypercholesterolemia S/P coronary artery stent placement Severe obesity (BMI >= 40) Tobacco use Histories Past Medical History: No active or resolved past medical history items have been selected or recorded. Family History: Stable Daughter (Shahla Finch) Comments: 08/19/2020 14:11 Flo Calloway LPN Adopted Diabetes Grandparent Daughter (Shahla Finch) Son (Areli Ruelas 111) Son (Chivo Ruelas) Hemorrhage Mother () Comments: 09/25/2018 15:51 Ekaterina Aguilera LPN of brain Procedure history: PM Inj Spine L/S With Imaging SN on 10/03/2022 at 62 Years. Comments: 10/03/2022 10:44 Gagandeep Howard RN auto-populated from documented surgical case PM Inj Spine L/S With Imaging SN on 08/01/2022 at 62 Years. Comments: 08/01/2022 11:26 Jeremiah Montemayor RN auto-populated from documented surgical case Revision of total hip arthroplasty ([id number]) on 04/22/2016 at 55 Years. Comments: 09/25/2018 15:18 Ekaterina Aguilera LPN Left Hip, Application of Incisional Wound VAC Arthroplasty ([id number]) on 01/21/2016 at 55 Years. Comments: 09/25/2018 15:20 Ekaterina Aguilera LPN Left Hip, Prostalac spacer placement, cemented freedom liner acetabulum Aspiration of soft tissue ([id number]) on 06/29/2015 at 54 Years. Comments: 09/25/2018 15:35 Ekaterina Aguilera LPN Several different procedures on this left thigh for infection of abcess, wound VAC 09/25/2018 15:21 Ekaterina Aguilera LPN Lateral aspect of proximal left thigh Arthroplasty ([id number]) on 12/29/2011 at 51 Years. Comments: 09/25/2018 15:36 RASHMIT Ekaterina Green LPN Revision of Left Hip Diskectomy ([id number]) on 05/02/2011 at 50 Years. Comments: 09/25/2018 15:38 EDT Ekaterina Green LPN and Fusion L5-S1 and L4-L5 Total hip replacement ([id number]) on 11/10/2005 at 45 Years. Comments: 09/25/2018 15:45 Ekaterina Aguilera LPN Left Arthroscopy of knee ([id number]) on 08/29/2001 at 41 Years. Comments: 09/25/2018 15:43 Ekaterina Aguilera LPN Right knee Varicose vein ligation and stripping ([id number]) on 01/17/1999 at 38 Years. Circumcision ([id number]). Injection in back ([id number]). 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 Physical Examination Vital Signs 01/09/2023 12:52 EDT Heart Rate Monitored 48 bpm LOW Systolic Blood Pressure Non-Invasive 124 mmHg Diastolic Blood Pressure Non-Invasive 91 mmHg HI 01/09/2023 12:45 EDT Heart Rate Monitored 46 bpm bpm Respiratory Rate - Anes 23 br/min br/min Systolic Blood Pressure Non-Invasive 122 mmHg mmHg Diastolic Blood Pressure Non-Invasive 84 mmHg mmHg 01/09/2023 12:40 EDT Heart Rate Monitored 48 bpm bpm Respiratory Rate - Anes 20 br/min br/min Systolic Blood Pressure Non-Invasive 120 mmHg mmHg Diastolic Blood Pressure Non-Invasive 70 mmHg mmHg 01/09/2023 12:35 EDT Heart Rate Monitored 51 bpm bpm Respiratory Rate - Anes 22 br/min br/min Systolic Blood Pressure Non-Invasive 121 mmHg mmHg Diastolic Blood Pressure Non-Invasive 78 mmHg mmHg 01/09/2023 12:30 EDT Heart Rate Monitored 49 bpm bpm Respiratory Rate - Anes 23 br/min br/min Systolic Blood Pressure Non-Invasive 109 mmHg mmHg Diastolic Blood Pressure Non-Invasive 75 mmHg mmHg 01/09/2023 12:25 EDT Heart Rate Monitored 55 bpm bpm Respiratory Rate - Anes 19 br/min br/min Systolic Blood Pressure Non-Invasive 104 mmHg mmHg Diastolic Blood Pressure Non-Invasive 77 mmHg mmHg 01/09/2023 12:20 EDT Heart Rate Monitored 54 bpm bpm Respiratory Rate - Anes 18 br/min br/min Systolic Blood Pressure Non-Invasive 109 mmHg mmHg Diastolic Blood Pressure Non-Invasive 73 mmHg mmHg 01/09/2023 12:15 EDT Heart Rate Monitored 53 bpm bpm Respiratory Rate - Anes 24 br/min br/min Systolic Blood Pressure Non-Invasive 111 mmHg mmHg Diastolic Blood Pressure Non-Invasive 74 mmHg mmHg 01/09/2023 12:10 EDT Heart Rate Monitored 52 bpm bpm Respiratory Rate - Anes 22 br/min br/min Systolic Blood Pressure Non-Invasive 93 mmHg mmHg Diastolic Blood Pressure Non-Invasive 66 mmHg mmHg 01/09/2023 12:05 EDT Heart Rate Monitored 56 bpm bpm Respiratory Rate - Anes 21 br/min br/min Systolic Blood Pressure Non-Invasive 117 mmHg mmHg Diastolic Blood Pressure Non-Invasive 70 mmHg mmHg 01/09/2023 12:00 EDT Heart Rate Monitored 49 bpm bpm Respiratory Rate - Anes 20 br/min br/min Systolic Blood Pressure Non-Invasive 156 mmHg mmHg Diastolic Blood Pressure Non-Invasive 100 mmHg mmHg 01/09/2023 10:53 EDT Apical Heart Rate 51 bpm LOW Respiratory Rate 17 br/min Systolic Blood Pressure Non-Invasive 126 mmHg Diastolic Blood Pressure Non-Invasive 77 mmHg Vital Signs(last 24 hrs) Last Charted Heart Rate MonitoredL 48bpm (JAN 09 12:52) Resp Rate 17 br/min (JAN 09 10:53) VQH711 mmHg (JAN 09 12:52) DBPH 91mmHg (JAN 09 12:52) BMI44.47 (JAN 09 11:29) Measurements from flowsheet : Measurements 01/09/2023 11:29 EDT Height 185 cm Admission Weight 152.2 kg Weight Method Stated [place] Body Weight 79.52 kg BSA Admission 2.68 Body Mass Index 44.47 kg/m2 Pain assessment: Pain Assessment 01/09/2023 12:52 EDT Primary Pain Intensity 0 Pain Scale Type 0-10 Pain scale 01/09/2023 10:53 EDT Primary Pain Location Lower back Primary Pain Laterality Right Primary Pain Intensity 9 Pain Scale Type 0-10 Pain scale . General: Alert and oriented. Airway: Normal neck range of motion. Mallampati classification: II (soft palate, fauces, uvula visible). Head: Normocephalic. Dentition Evaluation: Intact, Own teeth. Neck: Full range of motion. Respiratory: Lungs are clear to auscultation. Cardiovascular: Normal rate. Heart Sounds: Normal. Gastrointestinal: Soft. Musculoskeletal Normal range of motion. Integumentary: Intact, Warm, Dry. Neurologic: Alert, Oriented. Review / Management Results review: Labs (Last four charted values) Na 143(JAN 09) K 3.6(JAN 09) CO2 H 33(JAN 09) Cl 103(JAN 09) Cr 1.11(JAN 09) BUN 16(JAN 09) Glucose 96(JAN 09) Ca 8.6(JAN 09) PT 13.8(JAN 09) INR 1.2(JAN 09) , Lab results 01/09/2023 12:53 EDT SN - [place] - Route of Administration Local 01/09/2023 12:52 EDT Heart Rate Monitored 48 bpm LOW Systolic Blood Pressure Non-Invasive 124 mmHg Diastolic Blood Pressure Non-Invasive 91 mmHg HI Primary Pain Intensity 0 Pain Scale Type 0-10 Pain scale Respirations Unlabored All Lobes Breath Sounds Clear Oxygen Therapy Room air Oxygen Saturation 94 % Abdomen Description Non-distended Bowel Sounds All Quadrants Present Neurological Symptoms Patient denies Level of Consciousness Alert Vi Motor (2) Moves 4 extremities voluntarily or on command Vi Respirations (2) Spontaneous respiration without support, RR > 10 Vi Blood Pressure (2) BP 20% above or below preanesthetic level Vi Pulse (2) Pulse 20% above or below preanesthetic level Vi Oxygen Saturation (2) 94% or more Vi Level of Consciousness (2) Fully awake Vi III Score 12 Activity Status ADL Awake Standard Safety ID band on, Allergy Band on, Call device within reach, Bed in low position, Wheels locked, Upper/Half-Length side-rails up 01/09/2023 12:49 EDT SN - CTm - Anesthesia Stop Time Anesthesia Stop Lactated Ringers Injection 500 mL mL Anesthesia Final Record PM Spinal Cord Stimulator Trial/Leads (A 01/09/2023 12:45 EDT Heart Rate Monitored 46 bpm bpm Respiratory Rate - Anes 23 br/min br/min Systolic Blood Pressure Non-Invasive 122 mmHg mmHg Diastolic Blood Pressure Non-Invasive 84 mmHg mmHg Oxygen Saturation 97 % % 01/09/2023 12:40 EDT Heart Rate Monitored 48 bpm bpm Respiratory Rate - Anes 20 br/min br/min Systolic Blood Pressure Non-Invasive 120 mmHg mmHg Diastolic Blood Pressure Non-Invasive 70 mmHg mmHg Oxygen Saturation 96 % % 01/09/2023 12:39 EDT Intra-Op EBL 1 mL 01/09/2023 12:37 EDT Pain Management Procedure Note Procedure Note Ambulatory 01/09/2023 12:35 EDT SN - DRS - Site and Details BACK 01/09/2023 12:35 EDT SN - GCD - ASA Class 3 01/09/2023 12:35 EDT SN - XI - X-Ray Type C-Arm SN - XI - X-Ray Type C-Arm 01/09/2023 12:35 EDT Heart Rate Monitored 51 bpm bpm Respiratory Rate - Anes 22 br/min br/min Systolic Blood Pressure Non-Invasive 121 mmHg mmHg Diastolic Blood Pressure Non-Invasive 78 mmHg mmHg Oxygen Saturation 96 % % 01/09/2023 12:34 EDT SN - CTm - Surgery Stop 01/09/2023 12:34 01/09/2023 12:34 EDT SN - CTm - Surgery Stop Surgery Stop [facility] MAIN OR Intraop Record [facility] MAIN OR Intraop Record 01/09/2023 12:30 EDT Heart Rate Monitored 49 bpm bpm Respiratory Rate - Anes 23 br/min br/min Systolic Blood Pressure Non-Invasive 109 mmHg mmHg Diastolic Blood Pressure Non-Invasive 75 mmHg mmHg Oxygen Saturation 98 % % [facility] MAIN OR Preop & Phase II Record [facility] MAIN OR Preop & Phase II Record 01/09/2023 12:28 EDT propofol 30 mg mg 01/09/2023 12:25 EDT Heart Rate Monitored 55 bpm bpm Respiratory Rate - Anes 19 br/min br/min Systolic Blood Pressure Non-Invasive 104 mmHg mmHg Diastolic Blood Pressure Non-Invasive 77 mmHg mmHg Oxygen Saturation 97 % % 01/09/2023 12:22 EDT propofol 152.2 mg mg Premix Diluent 15.07 mL mL 01/09/2023 12:20 EDT Heart Rate Monitored 54 bpm bpm Respiratory Rate - Anes 18 br/min br/min Systolic Blood Pressure Non-Invasive 109 mmHg mmHg Diastolic Blood Pressure Non-Invasive 73 mmHg mmHg Oxygen Saturation 96 % % 01/09/2023 12:15 EDT Heart Rate Monitored 53 bpm bpm Respiratory Rate - Anes 24 br/min br/min Systolic Blood Pressure Non-Invasive 111 mmHg mmHg Diastolic Blood Pressure Non-Invasive 74 mmHg mmHg Oxygen Saturation 95 % % 01/09/2023 12:10 EDT Heart Rate Monitored 52 bpm bpm Respiratory Rate - Anes 22 br/min br/min Systolic Blood Pressure Non-Invasive 93 mmHg mmHg Diastolic Blood Pressure Non-Invasive 66 mmHg mmHg Oxygen Saturation 97 % % 01/09/2023 12:06 EDT SN - Implant - Implant/Explant Implant 01/09/2023 12:05 EDT SN - CTm - Surgery Start 01/09/2023 12:02 01/09/2023 12:05 EDT Heart Rate Monitored 56 bpm bpm Respiratory Rate - Anes 21 br/min br/min Systolic Blood Pressure Non-Invasive 117 mmHg mmHg Diastolic Blood Pressure Non-Invasive 70 mmHg mmHg Oxygen Saturation 98 % % 01/09/2023 12:03 EDT SN - Proc - Anesthesia Type MAC SN - Proc - EBL 0 mL SN - Proc - Actual Procedure SPINAL CORD STIMULATOR TRIAL 01/09/2023 12:03 EDT SN - SP - Prep Agents Chloraprep SN - SP - HR - Method N/A 01/09/2023 12:02 EDT SN - CTm - Surgery Start Surgery Start glycopyrrolate 0.2 mg mg 01/09/2023 12:01 EDT SN - PP - Body Position Prone Standard Intra-op 01/09/2023 12:01 EDT Lactated Ringers Injection Begin Bag 1,000 mL mL 01/09/2023 12:00 EDT SN - Assess - LOC Alert, Awake SN - Assess - Orientation Oriented X 3 SN - Assess - Post-op Skin Integrity Other See Comments 01/09/2023 12:00 EDT Heart Rate Monitored 49 bpm bpm Respiratory Rate - Anes 20 br/min br/min Systolic Blood Pressure Non-Invasive 156 mmHg mmHg Diastolic Blood Pressure Non-Invasive 100 mmHg mmHg Oxygen Saturation 98 % % fentaNYL 50 mcg mcg propofol Begin Bag 1 mL mg propofol 50 mg mg Premix Diluent Begin Bag 99 mL mL 01/09/2023 11:59 EDT SN - [place] - Medication 1% LIDOCAINE SN - [place] - By (Single) SN - [place] - By (Single) 01/09/2023 11:59 EDT SN - GCD - Post-operative Diagnosis M96.1 SN - GCD - Case Level Level 4 01/09/2023 11:59 EDT SN - Cul - Culture Type No Specimen per Surgeon 01/09/2023 11:58 EDT SN - CAt - Case Attendee SN - CAt - Case Attendee SN - CAt - Role Performed Filter Helper 01/09/2023 11:58 EDT dexmedeTOMIDine 10 mcg mcg 01/09/2023 11:55 EDT SN - CTm - Anesthesia Start Time Anesthesia Start midazolam 2 mg mg 01/09/2023 11:51 EDT SN - CAt - Case Attendee SN - CAt - Case Attendee SN - CAt - Case Attendee SN - CAt - Case Attendee SN - CAt - Case Attendee SN - CAt - Case Attendee SN - CAt - Case Attendee SN - CAt - Case Attendee SN - CAt - Case Attendee SN - CAt - Case Attendee SN - CAt - Case Attendee SN - CAt - Case Attendee SN - CAt - Role Performed Primary Surgeon SN - CAt - Role Performed Hand Funnel Coater 1 SN - CAt - Role Performed Scrub 1 SN - CAt - Role Performed Ground Equipment Mechanic 1 SN - CAt - Role Performed Visual Stylist SN - CAt - Role Performed GROUP DIRECTOR EXPERIENCE 01/09/2023 11:29 EDT Designated Person #1 We May Share ADAN PARRY [phone] Designated Person #1 Relationship Spouse Privacy Restrictions Requested None Height 185 cm Admission Weight 152.2 kg Weight Method Stated [place] Body Weight 79.52 kg BSA Admission 2.68 Body Mass Index 44.47 kg/m2 Status N/A Sensory Deficits None Infectious Disease Symptoms Patient states no symptoms Infectious Disease Recent Exposure No Alcohol and Drug Use No Employee of Institutional Living No Health Care Employee No History of Exposure to TB No History of Positive Chest X-Ray for TB No History of Positive TB Skin Test No Homeless No Known Immunosuppression No Recent Immigrant No Resident of Institutional Living No Bloody Sputum No Fatigue No Fever No Loss of Appetite No Night Sweats No Persistent Cough > 3 Weeks No Weight Loss No Barriers to Learning None evident Teaching Method Printed materials Preferred Spoken Language Peruvian Preferred Written Language Peruvian Information Given by Patient Patient's Current Physicians Patient's Current Physicians Discharge To, Anticipated Home independently Prev Test Positive/Diagnosis w/COVID-19 No Current Quarantine/Isolated any Illness No Any Contact with Sick Animals/Birds No Traveled Anywhere in Last 30 Days No N/A Personal Devices, Patient Valuables None Admission Note-Nursing Procedure/Therapy Intake 01/09/2023 11:20 EDT SN - Preop - CTm Pt in SDS Room 01/09/2023 10:38 SN - Preop - CTm Pt Ready for OR/Proced 01/09/2023 11:20 01/09/2023 11:19 EDT Lactated Ringers Injection Begin Bag 1,000 mL mL 01/09/2023 11:18 EDT Antecubital Right 01/09/2023 22 gauge Peripheral IV Activity: Insert new site Peripheral IV Dressing Condition: Clean, Dry, Intact Peripheral IV Dressing Activity: Applied, Transparent dressing Peripheral IV Line Status/Patency: Flushes easily, Continuous infusion Peripheral IV Line Care: Secured with tape Peripheral IV Site Condition: No complications Peripheral IV Equipment: Extension set, PRN Adaptor Peripheral IV Number of Attempts: 1 01/09/2023 11:16 EDT Protime 13.8 seconds PT International Ratio 1.2 NA Glucose Level 96 mg/dL Sodium Level 143 mmol/L Potassium Level 3.6 mmol/L Chloride 103 mmol/L CO2 33 mmol/L HI Electrolyte Balance 7.0 mEq/L BUN 16 mg/dL Creatinine Lvl (s) 1.11 mg/dL BUN/Creatinine Ratio 14 ratio Calcium Lvl 8.6 mg/dL GFR Non- 67 ml/min/1.73sqm NA GFR 81 ml/min/1.73sqm NA Creatinine Clearance Calc 76.61 mL/min 01/09/2023 10:53 EDT Apical Heart Rate 51 bpm LOW Respiratory Rate 17 br/min Systolic Blood Pressure Non-Invasive 126 mmHg Diastolic Blood Pressure Non-Invasive 77 mmHg Primary Pain Location Lower back Primary Pain Laterality Right Primary Pain Intensity 9 Pain Scale Type 0-10 Pain scale Heart Rhythm Regular Respirations Unlabored Breath Sounds Auscultated Anterior only All Lobes Breath Sounds Diminished Cough None Oxygen Therapy Room air Oxygen Saturation 96 % Abdomen Description Non-distended, Soft Abdomen Palpation Non-Tender Bowel Sounds All Quadrants Present Urinary Elimination Voiding, no difficulties Skin Temperature Warm Skin Description [place], Normal for ethnicity, Dry Skin Integrity Intact Mucous Membrane Color Inchelium IV Present Present Neurological Symptoms Patient denies Extremity Movement Equal Characteristics of Speech Clear Level of Consciousness Alert Strength All Extremities Weak Tone All Extremities Normal Sensation All Extremities Intact Affect/Behavior Appropriate, Calm, Cooperative Orientation Oriented x 4 Allergies Yes Consent Form Signed Yes Patient Dressed In Hospital gown, No undergarments Pre-op Preparation Undergarments removed History & Physical Update On Chart Yes History & Physical On Chart Yes Orientation Assessment Oriented x 4 Belongings At Bedside Pants, Shirt, Shoes, Undergarments Assistive Device None Positioning Repositioned back Activity Status ADL Awake, Resting NPO Status Maintained Standard Safety ID band on, Allergy Band on, Call device within reach, Bed in low position, Wheels locked Patient ID Band on and Verified Yes Implants Verified Yes Pacemaker/AICD Verified Yes Anesthesia Consent Signed Yes Blood Consent Signed No Last Fluid Intake 01/08/2023 23:00 Last Food Intake 01/08/2023 19:30 Last Void 01/09/2023 10:30 . Assessment and Plan Citizen Of [place] Society of Anesthesiologists (ASA) physical status classification: Class III. Anesthetic Preoperative Plan Premedication: intravenous. Anesthetic technique: MAC. Induction: intravenously. Maintenance airway: Mask. Postoperative pain management: Per surgeon. Risks discussed: nausea, vomiting, headache, sore throat, dental injury, hypotension, allergic reaction, serious complications. Informed consent: signed by patient. Digitally Signed by PAPI DURHAM on 01/09/2023 12:55 PM [facility]07-17-2023 Note ORIGINAL Images acquired, not reported on this accession number. [facility]07-17-2023 Note ORIGINAL Images acquired, not reported on this accession number.[facility]07-17-2023 Hospital Discharge instructions Patient Education 10/03/2022 10:48:07 Epidural Steroid Injection Epidural Steroid Injection An epidural steroid injection is a shot of steroid medicine and numbing medicine that is given intothe space between the spinal cord and the bones in your back (epidural space). The shot helps relieve pain caused by an irritated or swollen nerve root. The amount of pain relief you get from the injection depends on what is causing the nerve to be swollen and irritated, and how long your pain lasts. You are more likely to benefit from this injectionif your pain is strong and comes on suddenly rather than if you have had pain for a long time. Tell a health care provider about: Any allergies you have. All medicines you are taking, including vitamins, herbs, eye drops, creams, and [id number] medicines. Any problems you or family members have had with anesthetic medicines. Any blood disorders you have. Any surgeries you have had. Any medical conditions you have. Whether you are or may be . What are the risks? Generally, this is a safe procedure. However, problems may occur, including: Headache. Bleeding. Infection. Allergic reaction to medicines. Damage to your nerves. What happens before the procedure? Staying hydrated Follow instructions from your health care provider about hydration, which may include: Up to 2 hours before the procedure you may continue to drink clear liquids, such as water, clear fruit juice, black coffee, and plain tea. Eating and drinking restrictions Follow instructions from your health care provider about eating and drinking, which may include: 8 hours before the procedure stop eating heavy meals or foods such as meat, fried foods, or fatty foods. 6 hours before the procedure stop eating light meals or foods, such as toast or cereal. 6 hours before the procedure stop drinking milk or drinks that contain milk. 2 hours before the procedure stop drinking clear liquids. Medicine You may be given medicines to lower anxiety. Ask your health care provider about: ?Changing or stopping your regular medicines. This is especially important if you are taking diabetes medicines or blood thinners. ?Taking medicines such as aspirin and ibuprofen. These medicines can thin your blood. Do not take these medicines before your procedure if your health care provider instructs you not to. General instructions Plan to have someone take you home from the hospital or clinic. What happens during the procedure? You may receive a medicine to help you relax (sedative). You will be asked to lie on your abdomen. The injection site will be cleaned. A numbing medicine (local anesthetic) will be used to numb the injection site. A needle will be inserted through your skin into the epidural space. You may feel some discomfort when this happens. An X-ray machine will be used to make sure the needle is put as close as possible to the affected nerve. A steroid medicine and a local anesthetic will be injected into the epidural space. The needle will be removed. A bandage (dressing) will be put over the injection site. What happens after the procedure? Your blood pressure, heart rate, breathing rate, and blood oxygen level will be monitored until themedicines you were given have worn off. Your arm or leg may feel weak or numb for a few hours. The injection site may feel sore. Do not drive for 24 hours if you received a sedative. This information is not intended to replace advice given to you by your health care provider. Make sure you discuss any questions you have with your health care provider. Document Released: 06/12/2008 Document Revised: 02/16/2018 Document Reviewed: 06/21/2016 [employer] Patient Education 2020 [employer]. [facility] 07-17-2023 Summary of episode note Discharge Instructions Thank you for allowing [facility] to assist you with your healthcare needs. The following is importantdischarge information regarding your hospital visit. Your Care Team GAGANDEEP BARCLAY DO Your Diagnosis Lumbar postlaminectomy syndrome What to do next Scheduled Follow-Up Appointments Appointment Type When With Where Contact InformationACC POC Established Patient 10/10/2022 11:30 AMEDT [facility] [phone] PM OV 10/24/2022 11:15 AM POLO LINARES MD [facility] OV 02/28/2023 11:00 AM GAGANDEEP MELENDEZ DO [facility] [address] [phone] Allergies Lyrica (Hives) Red Dye (Hives) penicillin (Hives) Medications Please ask your primary doctor or pharmacist before taking any other medication not listed, including over the counter drugs, herbal medications, vitamins and or supplements as they may interact withyour home medications. What How Much When Why Instructions Last Dose Unchanged acetaminophen- hydrocodone (acetaminophen-hydrocodone 325 mg-7.5 mg oral tablet) 1 tab(s) by mouth Four (4) times a day as needed for as needed for pain Lumbar spondylosis Lumbar spinal stenosis Duration: 30 Days Unchanged albuterol (albuterol 2.5 mg/ 3 mL (0.083%) inhalation solution) 3 Milliliter by inhalation Every 4 hours as needed for for wheezing Unchanged albuterol (ProAir HFA MDI (90 mcg/ inh) inhalation aerosol) 2 puff(s) by inhalation Every 4 hours as needed for as needed for wheezing Unchanged allopurinol (allopurinol 100 mg oral tablet) 1 tab(s) by mouth Once a day after a meal Unchanged amLODIPine (amLODIPine 5 mg oral tablet) See instructions TAKE 1 TABLET BY MOUTH EVERY DAY Unchanged aspirin (aspirin 81 mg oral delayed release tablet) 1 tab(s) by mouth Once a day Unchanged atorvastatin (atorvastatin 80 mg oral tablet) 1 tab(s) by mouth Once a day Unchanged carvedilol (carvedilol 6.25 mg oral tablet) 1 tab(s) by mouth Two (2) times a day Unchanged cephalexin (cephalexin 500 mg oral capsule) 1 cap by mouth Every 12 hours Unchanged cholecalciferol (Vitamin D3 50 mcg (2000 intl units) oral capsule) 1 cap by mouth Every day Preventative health care Unchanged cloNIDine (cloNIDine 0.1 mg oral tablet) See instructions TAKE 1 TABLET BY MOUTH TWICE A DAY Unchanged diazePAM (Valium 5 mg oral tablet) See instructions Chronic radicular lumbar pain 1 tab 30-45 min prior to procedure, 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. Unchanged fluticasone nasal (fluticasone 50 mcg/ inh NASAL spray) 2 spray(s) each nostril Once a day (in the morning) Unchanged fluticasone-salmeterol (Wixela Inhub 250 mcg-50 mcg inhalation powder) 1 puff(s) by inhalation Two (2) times a day rinse mouth and throat after use Unchanged furosemide (furosemide 40 mg oral tablet) See instructions TAKE 1 TABLET BY MOUTH TWICE A DAY Unchanged hydrALAZINE (hydrALAZINE 50 mg oral tablet) 1 tab(s) by mouth Two (2) times a day Unchanged isosorbide mononitrate (isosorbide mononitrate 60 mg oral tablet, extended release) 1 tab(s) by mouth Every day TAKE 1 TABLET BY MOUTH EVERY DAY Unchanged lisinopril (lisinopril 40 mg oral tablet) 1 tab(s) by mouth Once a day Unchanged potassium chloride (potassium chloride 20 mEq oral tablet, extended release) 1 tab(s) by mouth Once a day Take with food Unchanged predniSONE (prednisone 10mg tab (TAPER)) Taper 08-54-61-10-5 mg by mouth Every day Gout Duration: 16 Days Take 4 tabs daily x 5days, then 3 tabs daily x 3days, then 2 tabs daily x 3days,then 1 tab daily x 3days,then 1/ 2 tab daily x 4 days Unchanged promethazine (promethazine 6.25 mg/ 5 mL oral syrup) 5 Milliliter by mouth Four (4) times a day Duration: 30 Days NO RED DYE! Grape flavor ok Unchanged sildenafil (sildenafil 20 mg oral tablet) 3 tab(s) by mouth Every day as needed for erectile dysfunction Erectile dysfunction DO NOT TAKE SAME DAY IF USING ISOSORBID MONONITRATE (IMDUR) Unchanged sotalol (sotalol 80 mg oral tablet) 1 tab(s) by mouth Two (2) times a day Unchanged traZODone (traZODone 50 mg oral tablet) 1 tab(s) by mouth Daily at bedtime as needed for Sleep / Insomnia Unchanged warfarin (warfarin 4 mg oral tablet) See instructions Take 1 and 1/ 2 tabs (6 mg) on Monday, Monday, Monday, and Monday. Take 2 tabs (8mg) on Monday & Monday. Please take this list to your next doctor s visit. Bring all medications you take, including over the counter medications, herbals and other supplements with you to your doctor s visit. Patients and families are reminded to discard old lists and to update any records with all medication providers or retail pharmacies. Education Materials Epidural Steroid Injection An epidural steroid injection is a shot of steroid medicine and numbing medicine that is given intothe space between the spinal cord and the bones in your back (epidural space). The shot helps relieve pain caused by an irritated or swollen nerve root. The amount of pain relief you get from the injection depends on what is causing the nerve to be swollen and irritated, and how long your pain lasts. You are more likely to benefit from this injectionif your pain is strong and comes on suddenly rather than if you have had pain for a long time. Tell a health care provider about: Any allergies you have. All medicines you are taking, including vitamins, herbs, eye drops, creams, and blry-nrd-lgenzhf medicines. Any problems you or family members have had with anesthetic medicines. Any blood disorders you have. Any surgeries you have had. Any medical conditions you have. Whether you are or may be . What are the risks? Generally, this is a safe procedure. However, problems may occur, including: Headache. Bleeding. Infection. Allergic reaction to medicines. Damage to your nerves. What happens before the procedure? Staying hydrated Follow instructions from your health care provider about hydration, which may include: Up to 2 hours before the procedure you may continue to drink clear liquids, such as water, clear fruit juice, black coffee, and plain tea. Eating and drinking restrictions Follow instructions from your health care provider about eating and drinking, which may include: 8 hours before the procedure stop eating heavy meals or foods such as meat, fried foods, or fatty foods. 6 hours before the procedure stop eating light meals or foods, such as toast or cereal. 6 hours before the procedure stop drinking milk or drinks that contain milk. 2 hours before the procedure stop drinking clear liquids. Medicine You may be given medicines to lower anxiety. Ask your health care provider about: ? Changing or stopping your regular medicines. This is especially important if you are taking diabetes medicines or blood thinners. ? Taking medicines such as aspirin and ibuprofen. These medicines can thin your blood. Do not take these medicines before your procedure if your health care provider instructs you not to. General instructions Plan to have someone take you home from the hospital or clinic. What happens during the procedure? You may receive a medicine to help you relax (sedative). You will be asked to lie on your abdomen. The injection site will be cleaned. A numbing medicine (local anesthetic) will be used to numb the injection site. A needle will be inserted through your skin into the epidural space. You may feel some discomfort when this happens. An X-ray machine will be used to make sure the needle is put as close as possible to the affected nerve. A steroid medicine and a local anesthetic will be injected into the epidural space. The needle will be removed. A bandage (dressing) will be put over the injection site. What happens after the procedure? Your blood pressure, heart rate, breathing rate, and blood oxygen level will be monitored until themedicines you were given have worn off. Your arm or leg may feel weak or numb for a few hours. The injection site may feel sore. Do not drive for 24 hours if you received a sedative. This information is not intended to replace advice given to you by your health care provider. Make sure you discuss any questions you have with your health care provider. Document Released: 06/12/2008 Document Revised: 02/16/2018 Document Reviewed: 06/21/2016 GetApp Patient Education 2020 [employer]. Additional Information VACCINATE! IT SAVES LIVES! Members of the community who have not yet received the COVID-19 vaccine and would like to receive it can visit one of [facility] vaccine clinics. There are many vaccine clinic locations within the [facility]. For locations and available times, please visit [email or web address] It is important to note that some COVID mobile vaccine clinics are held outdoors and may be canceled in rainy or stormy conditions. To learn more about pediatric vaccinations (ages 5-11), we invite you to visit the [facility] webpage. [email or web address]/[email or web address] [email or web address] learn more about the COVID-19 vaccine, we invite you to visit the CDC website for a list of frequently asked questions.https://www.cdc.gov/coronavirus/2019-ncov/vaccines/faq.html [facility] Patient Portal Access Instructions: Stay connected with your healthcare team and access your personal medical information anytime with the [facility] Patient Portal. Please follow the directions below to create your [facility] account: 1.Access the email account you provided upon registration to the hospital/physician office.2.Look for an invitation email from [facility].3.Open the email and access the invitation link: AcceptInvitation to [facility].4.Fill in the required perez to create your account. To access your account, visit [email or web address]. Click the blue button labeled Access Patient Portal and then log in with the username and password that you created in the steps above. You will be able to view your test results, lab results, a summary of your visits, upcoming appointments and more. There is also a convenient messaging option where you can send secure messages to your p rovider. In addition, you will have the ability to download any documents or summaries to your computer and/or send the information securely to a physician. Remember that your healthcare information is confidential, so carefully consider who you will allowto register on the [facility] Patient Portal for access to your information. You can also access the [facility] Patient Portal on the [facility] ashley. Simply click on Patient Portal and then log into your account. If you would like to receive a full copy of your medical records, please contact the [facility] Medical Records Department by calling [phone], Monday through Monday between 8 a.m. and 4:30 p.m. HOW TO SAFELY DISPOSE OF PRESCRIPTION MEDICATIONS Please use one of the following methods to safely dispose of your unused medications. 1.Use a drug disposal kit: the drug disposal pouch allows you to safely discard your old and unuseddrugs. Ask your nurse to give you one when you are discharged.2.Visit a local take-back location: Many local pharmacies and police departments have programs that collect old and unwanted prescriptiondrugs. Call your local pharmacy or go to http://bit.[facility]/9X4Ep8b to find one close to you.3.Make use of household items: Use cat litter or old coffee grounds to dispose medications if other options arenot available. Mix your drugs with these household products, seal them in an airtight container andthrow it into the garbage. Call [facility]: [phone] to be sure your drugs can be disposed of in this way. Some medicines may require a different approach.4.Never flush your medications down the toilet. IF YOU HAVE BEEN PRESCRIBED AN OPIOID FOR PAIN If you have been prescribed an opioid (such as hydrocodone, oxycodone or morphine), it is critical to understand the possible side effects and risks of opioid pain medications. Even when taken as directed, opioids can have several side effects including: Tolerance, meaning you might need to take more of a medication for the same pain relief. Nausea, vomiting and/or constipation. Sleepiness, dizziness, dry mouth, confusion, depression or itching. Physical dependence, meaning you have withdrawal symptoms when a medication is stopped, can develop within a few days. KNOW YOUR RESPONSIBILITIES It is important to know exactly how much and how often to take the opioid pain medications you are prescribed. Never take opioids in higher amounts or more often than prescribed. Do not combine opioids with alcohol or other drugs that cause drowsiness, such as benzodiazepines, also known as benzos, including diazepam and alprazolam, muscle relaxants or sleep aids. Never sell or share prescription opioids. This is illegal. Store opioids in a secure place and out of reach of others (including children, family, friends and visitors). The last page of this document has been signed and retained as a CHART COPY. Signatures Patient Education Materials Epidural Steroid Injection Medication Leaflets My discharge plan and instructions have been reviewed and explained to me and I,ARELI RUELASd my current condition and have read and understand these discharge instructions. I have received a written copy of the plan/instructions. If I have questions, I am aware that I should contact my doctor. Patient/Nuclear Medicine Officer Signature: Date/Time: Relationship to Patient: Witness Name/Signature: Date/Time: [facility]05-15-2023 Hospital Discharge instructions Patient Education 08/01/2022 11:37:17 How to Use Cold Therapy, Rxfv-bm-Fhko How to Use Cold Therapy Cold therapy, or cryotherapy, is a treatment that uses cold temperatures to treat an injury or medical condition. It includes using cold packs or ice packs to reduce pain and swelling. Only use cold therapy if your doctor says it is okay. What are the risks? Generally, cold therapy is a safe treatment. However, it is not safe for: People who are not able to say they are in pain. These include small children and people who have memory problems. People who have certain conditions, such as: ?A problem in the vessels that slows blood flow to the fingers and toes (Raynaud's syndrome). ?Feeling very cold easily (cold hypersensitivity). ?Lack of feeling in the area being iced. Cold therapy may not be safe for people who have other conditions. Do not use it without talking toyour doctor if you have: A heart condition. High blood pressure. Open or healing wounds. An infection. Pain and swelling in your joints (rheumatoid arthritis). Poor blood flow in the body. Diabetes. Certain skin conditions. How can I make a cold pack? When using a cold pack at home to reduce pain and swelling, you can use: A silica gel cold pack that has been left in the freezer. You can buy this online or in stores. A sealable plastic bag that has been filled with crushed ice. A washcloth or paper towels soaked in cold (or ice) water. A plastic bag of frozen vegetables. Throw them away when you are finished using them as a cold pack. Supplies needed: A cold pack. A towel. This can be dry or damp, based on what you like. How to use cold therapy 1.Have your cold pack ready. 2.Place a towel between the cold pack and your skin. You may also wrap the cold pack in a towel. 3.Put the cold pack on the affected area. Keep it on for no more than 20 minutes at a time. 4.Check your skin after 5 minutes to make sure that there is no damage to the area. Check for: White spots on your skin. Your skin may look blotchy or mottled. Skin that looks blue or pale. Skin that feels waxy or hard. 5.Repeat these steps as many times each day as told by your doctor. Always use a towel to avoid direct contact with your skin. Contact a doctor if: You start to have white spots on your skin. This may give your skin a blotchy or mottled look. Your skin turns blue or pale. Your skin becomes waxy or hard. Your swelling gets worse. Summary Cold therapy, or cryotherapy, is used to treat an injury or other conditions. It includes using cold packs or ice packs to reduce pain and swelling. Cold therapy is not safe for people who are not able to say they are in pain. When using cold packs or ice packs, always place a towel between the cold source and your skin. Check your skin after 5 minutes of icing it. This is to make sure that there is no skin damage. Contact your doctor if you notice changes in your skin or your swelling gets worse. This information is not intended to replace advice given to you by your health care provider. Make sure you discuss any questions you have with your health care provider. Document Released: 08/22/2008 Document Revised: 12/03/2018 Document Reviewed: 12/03/2018 GetApp Patient Education 2020 [employer]. 08/01/2022 11:37:11 Epidural Steroid Injection, Care After Epidural Steroid Injection, Care After Refer to this sheet in the next few weeks. These instructions provide you with information about caring for yourself after your procedure. Your health care provider may also give you more specific instructions. Your treatment has been planned according to current medical practices, but problems sometimes occur. Call your health care provider if you have any problems or questions after your procedure. What can I expect after the procedure? After your procedure, it is common to feel a little discomfort at the injection site. Follow these instructions at home: For 24 hours after the procedure: ?Avoid using heat on the injection site. ?Do not take a tub bath, and do not soak in water. ?Do not drive if you received a medicine to help you relax (sedative). If directed, put ice on the injection site: ?Put ice in a plastic bag. ?Place a towel between your skin and the bag. ?Leave the ice on for 20 minutes, 2 3 times a day. Return to your normal activities as told by your health care provider. Ask your health care provider what activities are safe for you. You may remove the bandage (dressing) after 24 hours. Take arox-atl-hgqzyzp and prescription medicines only as told by your health care provider. Keep all follow-up visits as told by your health care provider. This is important. Contact a health care provider if: You have a fever. You continue to have pain and soreness around the injection site, even after taking vqkr-hxi-nmqptyr pain medicine. You have severe, sudden, or lasting nausea or vomiting. Get help right away if: You have severe pain at the injection site that is not relieved by medicines. You develop a severe headache or a stiff neck. You become sensitive to light. You have any new numbness or weakness in your legs or arms. You lose control of your bladder or bowel movements. You have trouble breathing. This information is not intended to replace advice given to you by your health care provider. Make sure you discuss any questions you have with your health care provider. Document Released: 06/21/2011 Document Revised: 02/16/2018 Document Reviewed: 06/21/2016 GetApp Patient Education 2020 [employer]. Follow Up Care 07/26/2022 10:39:54 With:POLO ROD MD Address: [address] [place] [address] [facility] [place] [address] [phone] When: Unknown Comments:CALL DR ROD WITH ANY QUESTIONS OR CONCERNS. GO TO THE EMERGENCY ROOM WITH ANY URGENT CONCERNS FOLLOW UP WITH DR. ROD. [facility] 05-15-2023 Note ORIGINAL Images acquired, not reported on this accession number. [facility]05-15-2023 Note ORIGINAL Images acquired, not reported on this accession number.[facility]05-15-2023 Summary of episode note Discharge Instructions Thank you for allowing [facility] to assist you with your healthcare needs. The following is importantdischarge information regarding your hospital visit. Your Care Team GAGANDEEP BARCLAY Your Diagnosis CAUDAL EPIDURAL STEROID INJECTION What to do next Scheduled Follow-Up Appointments Appointment Type When With Where Contact InformationPM OV 08/24/2022 09:45 AM EDT MARLA VILLATORO APRN-SERA [facility] ACC POC Established Patient 08/24/2022 10:30 AM EDT [facility] [phone] OV 08/25/2022 11:00 AM EDT [facility] [address] [phone] Follow Up Appointments Follow Up with POLO ROD MD When Why: CALL DR ROD WITH ANY QUESTIONS OR CONCERNS. GO TO THE EMERGENCY ROOM WITH ANY URGENT CONCERNS FOLLOW UP WITH DR. ROD. Where: [address] [facility] [address] [facility] [place] [address]- [phone] The Following Activity and Diet Have Been Ordered for You Discharge Activity - Ordered -- Activity As Tolerated, Patient received sedation, NO driving for 24hours post-procedures., 08/01/22 11:28:00 EDT Discharge Return to Work, School, or Sports (Discharge Return to status) - Ordered -- May return to: work, 08/01/22 11:28:00 EDT Discharge Diet - Ordered -- Resume previous diet as tolerated., 08/01/22 11:28:00 EDT The Following Equipment Has Been Ordered for You Discharge Home Equipment Discharge Wound Care - Ordered -- Dressing Type: Bandaid drsg, 08/01/22 11:28:00 EDT Allergies Lyrica (Hives) Red Dye (Hives) penicillin (Hives) Medications Please ask your primary doctor or pharmacist before taking any other medication not listed, including over the counter drugs, herbal medications, vitamins and or supplements as they may interact withyour home medications. What How Much When Why Instructions Last Dose Unchanged acetaminophen- hydrocodone (acetaminophen-hydrocodone 325 mg-7.5 mg oral tablet) 1 tab(s) by mouth Four (4) times a day as needed for as needed for pain Lumbar spondylosis Lumbar spinal stenosis Duration: 30 Days Unchanged albuterol (albuterol 2.5 mg/ 3 mL (0.083%) inhalation solution) 3 Milliliter by inhalation Every 4 hours as needed for for wheezing Unchanged albuterol (ProAir HFA MDI (90 mcg/ inh) inhalation aerosol) 2 puff(s) by inhalation Every 4 hours as needed for as needed for wheezing Unchanged allopurinol (allopurinol 100 mg oral tablet) 1 tab(s) by mouth Once a day after a meal Unchanged amLODIPine (amLODIPine 5 mg oral tablet) See instructions TAKE 1 TABLET BY MOUTH EVERY DAY Unchanged aspirin (aspirin 81 mg oral delayed release tablet) 1 tab(s) by mouth Once a day Unchanged atorvastatin (atorvastatin 80 mg oral tablet) 1 tab(s) by mouth Once a day Unchanged carvedilol (carvedilol 6.25 mg oral tablet) 1 tab(s) by mouth Two (2) times a day Unchanged cephalexin (cephalexin 500 mg oral capsule) 1 cap by mouth Every 12 hours Unchanged cholecalciferol (Vitamin D3 50 mcg (2000 intl units) oral capsule) 1 cap by mouth Every day Preventative health care Unchanged cloNIDine (cloNIDine 0.1 mg oral tablet) See instructions TAKE 1 TABLET BY MOUTH TWICE A DAY Unchanged fluticasone nasal (fluticasone 50 mcg/ inh NASAL spray) 2 spray(s) each nostril Once a day (in the morning) Unchanged fluticasone-salmeterol (Wixela Inhub 250 mcg-50 mcg inhalation powder) 1 puff(s) by inhalation Two (2) times a day rinse mouth and throat after use Unchanged furosemide (furosemide 40 mg oral tablet) See instructions TAKE 1 TABLET BY MOUTH TWICE A DAY Unchanged hydrALAZINE (hydrALAZINE 50 mg oral tablet) 1 tab(s) by mouth Two (2) times a day Unchanged isosorbide mononitrate (isosorbide mononitrate 60 mg oral tablet, extended release) 1 tab(s) by mouth Every day TAKE 1 TABLET BY MOUTH EVERY DAY Unchanged lisinopril (lisinopril 40 mg oral tablet) 1 tab(s) by mouth Once a day Unchanged potassium chloride (potassium chloride 20 mEq oral tablet, extended release) 1 tab(s) by mouth Once a day Take with food Unchanged promethazine (promethazine 6.25 mg/ 5 mL oral syrup) 5 Milliliter by mouth Four (4) times a day Duration: 30 Days NO RED DYE! Grape flavor ok Unchanged sildenafil (sildenafil 20 mg oral tablet) 3 tab(s) by mouth Every day as needed for erectile dysfunction Erectile dysfunction DO NOT TAKE SAME DAY IF USING ISOSORBID MONONITRATE (IMDUR) Unchanged sotalol (sotalol 80 mg oral tablet) 1 tab(s) by mouth Two (2) times a day Unchanged traZODone (traZODone 50 mg oral tablet) 1 tab(s) by mouth Daily at bedtime as needed for Sleep / Insomnia Unchanged warfarin (warfarin 4 mg oral tablet) See instructions Take 4mg every day except 6mg on Tuesdays and Fridays Please take this list to your next doctor s visit. Bring all medications you take, including over the counter medications, herbals and other supplements with you to your doctor s visit. Patients and families are reminded to discard old lists and to update any records with all medication providers or retail pharmacies. Education Materials How to Use Cold Therapy Cold therapy, or cryotherapy, is a treatment that uses cold temperatures to treat an injury or medical condition. It includes using cold packs or ice packs to reduce pain and swelling. Only use cold therapy if your doctor says it is okay. What are the risks? Generally, cold therapy is a safe treatment. However, it is not safe for: People who are not able to say they are in pain. These include small children and people who have memory problems. People who have certain conditions, such as: ? A problem in the vessels that slows blood flow to the fingers and toes (Raynaud's syndrome). ? Feeling very cold easily (cold hypersensitivity). ? Lack of feeling in the area being iced. Cold therapy may not be safe for people who have other conditions. Do not use it without talking toyour doctor if you have: A heart condition. High blood pressure. Open or healing wounds. An infection. Pain and swelling in your joints (rheumatoid arthritis). Poor blood flow in the body. Diabetes. Certain skin conditions. How can I make a cold pack? When using a cold pack at home to reduce pain and swelling, you can use: A silica gel cold pack that has been left in the freezer. You can buy this online or in stores. A sealable plastic bag that has been filled with crushed ice. A washcloth or paper towels soaked in cold (or ice) water. A plastic bag of frozen vegetables. Throw them away when you are finished using them as a cold pack. Supplies needed: A cold pack. A towel. This can be dry or damp, based on what you like. How to use cold therapy 1. Have your cold pack ready. 2. Place a towel between the cold pack and your skin. You may also wrap the cold pack in a towel. 3. Put the cold pack on the affected area. Keep it on for no more than 20 minutes at a time. 4. Check your skin after 5 minutes to make sure that there is no damage to the area. Check for: White spots on your skin. Your skin may look blotchy or mottled. Skin that looks blue or pale. Skin that feels waxy or hard. 5. Repeat these steps as many times each day as told by your doctor. Always use a towel to avoid direct contact with your skin. Contact a doctor if: You start to have white spots on your skin. This may give your skin a blotchy or mottled look. Your skin turns blue or pale. Your skin becomes waxy or hard. Your swelling gets worse. Summary Cold therapy, or cryotherapy, is used to treat an injury or other conditions. It includes using cold packs or ice packs to reduce pain and swelling. Cold therapy is not safe for people who are not able to say they are in pain. When using cold packs or ice packs, always place a towel between the cold source and your skin. Check your skin after 5 minutes of icing it. This is to make sure that there is no skin damage. Contact your doctor if you notice changes in your skin or your swelling gets worse. This information is not intended to replace advice given to you by your health care provider. Make sure you discuss any questions you have with your health care provider. Document Released: 08/22/2008 Document Revised: 12/03/2018 Document Reviewed: 12/03/2018 GetApp Patient Education 2020 [employer]. Epidural Steroid Injection, Care After Refer to this sheet in the next few weeks. These instructions provide you with information about caring for yourself after your procedure. Your health care provider may also give you more specific instructions. Your treatment has been planned according to current medical practices, but problems sometimes occur. Call your health care provider if you have any problems or questions after your procedure. What can I expect after the procedure? After your procedure, it is common to feel a little discomfort at the injection site. Follow these instructions at home: For 24 hours after the procedure: ? Avoid using heat on the injection site. ? Do not take a tub bath, and do not soak in water. ? Do not drive if you received a medicine to help you relax (sedative). If directed, put ice on the injection site: ? Put ice in a plastic bag. ? Place a towel between your skin and the bag. ? Leave the ice on for 20 minutes, 2 3 times a day. Return to your normal activities as told by your health care provider. Ask your health care provider what activities are safe for you. You may remove the bandage (dressing) after 24 hours. Take kvff-eci-bdymszu and prescription medicines only as told by your health care provider. Keep all follow-up visits as told by your health care provider. This is important. Contact a health care provider if: You have a fever. You continue to have pain and soreness around the injection site, even after taking btho-fcb-ugpsove pain medicine. You have severe, sudden, or lasting nausea or vomiting. Get help right away if: You have severe pain at the injection site that is not relieved by medicines. You develop a severe headache or a stiff neck. You become sensitive to light. You have any new numbness or weakness in your legs or arms. You lose control of your bladder or bowel movements. You have trouble breathing. This information is not intended to replace advice given to you by your health care provider. Make sure you discuss any questions you have with your health care provider. Document Released: 06/21/2011 Document Revised: 02/16/2018 Document Reviewed: 06/21/2016 GetApp Patient Education 2020 [employer]. Additional Information VACCINATE! IT SAVES LIVES! Members of the community who have not yet received the COVID-19 vaccine and would like to receive it can visit one of [facility] vaccine clinics. There are many vaccine clinic locations within the [facility]. For locations and available times, please visit [email or web address] It is important to note that some COVID mobile vaccine clinics are held outdoors and may be canceled in rainy or stormy conditions. To learn more about pediatric vaccinations (ages 5-11), we invite you to visit the [facility] webpage. [email or web address]/[email or web address] [email or web address].htmlTo learn more about the COVID-19 vaccine, we invite you to visit the CDC website for a list of frequently asked questions.https://www.cdc.gov/coronavirus/2019-ncov/vaccines/faq.html [facility] Patient Portal Access Instructions: Stay connected with your healthcare team and access your personal medical information anytime with the [facility] Patient Portal. Please follow the directions below to create your [facility] account: 1.Access the email account you provided upon registration to the hospital/physician office.2.Look for an invitation email from [facility].3.Open the email and access the invitation link: AcceptInvitation to [facility].4.Fill in the required perez to create your account. To access your account, visit [email or web address]. Click the blue button labeled Access Patient Portal and then log in with the username and password that you created in the steps above. You will be able to view your test results, lab results, a summary of your visits, upcoming appointments and more. There is also a convenient messaging option where you can send secure messages to your p rovider. In addition, you will have the ability to download any documents or summaries to your computer and/or send the information securely to a physician. Remember that your healthcare information is confidential, so carefully consider who you will allowto register on the [facility] Patient Portal for access to your information. You can also access the [facility] Patient Portal on the [facility] [employer] [facility]. Simply click on Patient Portal and then log into your account. If you would like to receive a full copy of your medical records, please contact the [facility] Medical Records Department by calling [phone], Monday through Monday between 8 a.m. and 4:30 p.m. HOW TO SAFELY DISPOSE OF PRESCRIPTION MEDICATIONS Please use one of the following methods to safely dispose of your unused medications. 1.Use a drug disposal kit: the drug disposal pouch allows you to safely discard your old and unuseddrugs. Ask your nurse to give you one when you are discharged.2.Visit a local take-back location: Many local pharmacies and police departments have programs that collect old and unwanted prescriptiondrugs. Call your local pharmacy or go to http://bit.ly/3F9Zg2e to find one close to you.3.Make use of household items: Use cat litter or old coffee grounds to dispose medications if other options arenot available. Mix your drugs with these household products, seal them in an airtight container andthrow it into the garbage. Call [facility]: [phone] to be sure your drugs can be disposed of in this way. Some medicines may require a different approach.4.Never flush your medications down the toilet. IF YOU HAVE BEEN PRESCRIBED AN OPIOID FOR PAIN If you have been prescribed an opioid (such as hydrocodone, oxycodone or morphine), it is critical to understand the possible side effects and risks of opioid pain medications. Even when taken as directed, opioids can have several side effects including: Tolerance, meaning you might need to take more of a medication for the same pain relief. Nausea, vomiting and/or constipation. Sleepiness, dizziness, dry mouth, confusion, depression or itching. Physical dependence, meaning you have withdrawal symptoms when a medication is stopped, can develop within a few days. KNOW YOUR RESPONSIBILITIES It is important to know exactly how much and how often to take the opioid pain medications you are prescribed. Never take opioids in higher amounts or more often than prescribed. Do not combine opioids with alcohol or other drugs that cause drowsiness, such as benzodiazepines, also known as benzos, including diazepam and alprazolam, muscle relaxants or sleep aids. Never sell or share prescription opioids. This is illegal. Store opioids in a secure place and out of reach of others (including children, family, friends and visitors). The last page of this document has been signed and retained as a CHART COPY. Signatures Patient Education Materials How to Use Cold Therapy, [id number] Epidural Steroid Injection, Care After Medication Leaflets My discharge plan and instructions have been reviewed and explained to me and IRAEANN HARRISON Bunderstand my current condition and have read and understand these discharge instructions. I have received a written copy of the plan/instructions. If I have questions, I am aware that I should contact my doctor. Patient/Nuclear Medicine Officer Signature: Date/Time: Relationship to Patient: Witness Name/Signature: Date/Time: [facility]02-20-2023 Procedure [facility]12-15-2019 Evaluation note* Diagnosis Onset Date Resolution Status Essential (primary) hypertension chronic Paroxysmal atrial fibrillation chronic History of coronary artery stent placement March 032018 resolved [facility] Work Phone: [phone]) 485-747701-19-2015 History of Present illness Narrative* Yon Alvarez - 04/07/2014 7:39 AM EST Injection scheduled 04-24-2014 Sent to Emma for PAT scheduling [facility]* EKATERINA BLUE MD: PERFORM, SIGN, VERIFY Event Display: Anesthesiology Consultation Authored Date: Patient: ARELI RUELAS Age: 62 years Sex: Male : 1960 Associated Diagnoses: None Author: EKATERINA BLUE MD Postoperative Information Post Operative Info: Post op day: Post Anesthesia Care Unit. Patient location: PACU. Assessment Postanesthesia assessment Vitals: Vital signs from flowsheet : Vital Signs 03/28/2023 12:05 EST Temperature Temporal Artery 35.7 DegC Apical Heart Rate 59 bpm LOW Respiratory Rate 16 br/min Systolic Blood Pressure Non-Invasive 162 mmHg HI Diastolic Blood Pressure Non-Invasive 94 mmHg HI 03/28/2023 11:53 EST Temperature Temporal Artery 36.1 DegC Heart Rate Monitored 58 bpm LOW Respiratory Rate 18 br/min Systolic Blood Pressure Non-Invasive 150 mmHg HI Diastolic Blood Pressure Non-Invasive 82 mmHg Mean Arterial Pressure (NBP) 102 mmHg 03/28/2023 11:39 EST Heart Rate Monitored 58 bpm LOW Respiratory Rate 18 br/min Systolic Blood Pressure Non-Invasive 140 mmHg Diastolic Blood Pressure Non-Invasive 87 mmHg Mean Arterial Pressure (NBP) 100 mmHg 03/28/2023 11:24 EST Heart Rate Monitored 61 bpm Respiratory Rate 20 br/min Systolic Blood Pressure Non-Invasive 142 mmHg HI Diastolic Blood Pressure Non-Invasive 79 mmHg Mean Arterial Pressure (NBP) 97 mmHg 03/28/2023 11:11 EST Peripheral Pulse Rate 62 bpm Respiratory Rate 20 br/min 03/28/2023 11:10 EST Heart Rate Monitored 64 bpm Respiratory Rate 22 br/min HI Systolic Blood Pressure Non-Invasive 140 mmHg Diastolic Blood Pressure Non-Invasive 76 mmHg Mean Arterial Pressure (NBP) 95 mmHg 03/28/2023 10:55 EST Systolic Blood Pressure Non-Invasive 139 mmHg Diastolic Blood Pressure Non-Invasive 83 mmHg Mean Arterial Pressure (NBP) 100 mmHg 03/28/2023 10:54 EST Temperature Temporal Artery 36.2 DegC Heart Rate Monitored 74 bpm Respiratory Rate 24 br/min HI Systolic Blood Pressure Non-Invasive 118 mmHg Diastolic Blood Pressure Non-Invasive 94 mmHg HI Mean Arterial Pressure (NBP) 104 mmHg 03/28/2023 10:50 EST Heart Rate Monitored 77 bpm bpm Respiratory Rate - Anes 8 br/min br/min 03/28/2023 10:49 EST Systolic Blood Pressure Non-Invasive 183 mmHg mmHg Diastolic Blood Pressure Non-Invasive 123 mmHg mmHg 03/28/2023 10:48 EST Systolic Blood Pressure Non-Invasive 200 mmHg mmHg Diastolic Blood Pressure Non-Invasive 145 mmHg mmHg 03/28/2023 10:45 EST Heart Rate Monitored 61 bpm bpm Respiratory Rate - Anes 9 br/min br/min 03/28/2023 10:44 EST Systolic Blood Pressure Non-Invasive 126 mmHg mmHg Diastolic Blood Pressure Non-Invasive 93 mmHg mmHg 03/28/2023 10:41 EST Systolic Blood Pressure Non-Invasive 122 mmHg mmHg Diastolic Blood Pressure Non-Invasive 85 mmHg mmHg 03/28/2023 10:40 EST Heart Rate Monitored 62 bpm bpm Respiratory Rate - Anes 8 br/min br/min 03/28/2023 10:38 EST Systolic Blood Pressure Non-Invasive 124 mmHg mmHg Diastolic Blood Pressure Non-Invasive 96 mmHg mmHg 03/28/2023 10:35 EST Temperature (Route Not Specified) 36.17 DegC DegC Heart Rate Monitored 63 bpm bpm Respiratory Rate - Anes 12 br/min br/min Systolic Blood Pressure Non-Invasive 121 mmHg mmHg Diastolic Blood Pressure Non-Invasive 91 mmHg mmHg 03/28/2023 10:31 EST Systolic Blood Pressure Non-Invasive 112 mmHg mmHg Diastolic Blood Pressure Non-Invasive 90 mmHg mmHg 03/28/2023 10:30 EST Temperature (Route Not Specified) 36.16 DegC DegC Heart Rate Monitored 65 bpm bpm Respiratory Rate - Anes 12 br/min br/min 03/28/2023 10:28 EST Systolic Blood Pressure Non-Invasive 102 mmHg mmHg Diastolic Blood Pressure Non-Invasive 78 mmHg mmHg 03/28/2023 10:26 EST Systolic Blood Pressure Non-Invasive 97 mmHg mmHg Diastolic Blood Pressure Non-Invasive 79 mmHg mmHg 03/28/2023 10:25 EST Temperature (Route Not Specified) 36.14 DegC DegC Heart Rate Monitored 64 bpm bpm Respiratory Rate - Anes 12 br/min br/min 03/28/2023 10:23 EST Systolic Blood Pressure Non-Invasive 108 mmHg mmHg Diastolic Blood Pressure Non-Invasive 77 mmHg mmHg 03/28/2023 10:20 EST Temperature (Route Not Specified) 36.09 DegC DegC Heart Rate Monitored 64 bpm bpm Respiratory Rate - Anes 12 br/min br/min Systolic Blood Pressure Non-Invasive 119 mmHg mmHg Diastolic Blood Pressure Non-Invasive 88 mmHg mmHg 03/28/2023 10:16 EST Systolic Blood Pressure Non-Invasive 112 mmHg mmHg Diastolic Blood Pressure Non-Invasive 90 mmHg mmHg 03/28/2023 10:15 EST Temperature (Route Not Specified) 36.06 DegC DegC Heart Rate Monitored 62 bpm bpm Respiratory Rate - Anes 12 br/min br/min 03/28/2023 10:14 EST Systolic Blood Pressure Non-Invasive 109 mmHg mmHg Diastolic Blood Pressure Non-Invasive 74 mmHg mmHg 03/28/2023 10:10 EST Temperature (Route Not Specified) 36.03 DegC DegC Heart Rate Monitored 63 bpm bpm Respiratory Rate - Anes 12 br/min br/min Systolic Blood Pressure Non-Invasive 111 mmHg mmHg Diastolic Blood Pressure Non-Invasive 84 mmHg mmHg 03/28/2023 10:08 EST Systolic Blood Pressure Non-Invasive 111 mmHg mmHg Diastolic Blood Pressure Non-Invasive 83 mmHg mmHg 03/28/2023 10:05 EST Temperature (Route Not Specified) 35.99 DegC DegC Heart Rate Monitored 64 bpm bpm Respiratory Rate - Anes 12 br/min br/min Systolic Blood Pressure Non-Invasive 118 mmHg mmHg Diastolic Blood Pressure Non-Invasive 96 mmHg mmHg 03/28/2023 10:01 EST Systolic Blood Pressure Non-Invasive 123 mmHg mmHg Diastolic Blood Pressure Non-Invasive 96 mmHg mmHg 03/28/2023 10:00 EST Temperature (Route Not Specified) 35.96 DegC DegC Heart Rate Monitored 61 bpm bpm Respiratory Rate - Anes 12 br/min br/min 03/28/2023 9:59 EST Systolic Blood Pressure Non-Invasive 120 mmHg mmHg Diastolic Blood Pressure Non-Invasive 89 mmHg mmHg 03/28/2023 9:55 EST Temperature (Route Not Specified) 35.99 DegC DegC Heart Rate Monitored 62 bpm bpm Respiratory Rate - Anes 12 br/min br/min Systolic Blood Pressure Non-Invasive 116 mmHg mmHg Diastolic Blood Pressure Non-Invasive 88 mmHg mmHg 03/28/2023 9:53 EST Systolic Blood Pressure Non-Invasive 98 mmHg mmHg Diastolic Blood Pressure Non-Invasive 82 mmHg mmHg 03/28/2023 9:50 EST Temperature (Route Not Specified) 36.07 DegC DegC Heart Rate Monitored 51 bpm bpm Respiratory Rate - Anes 12 br/min br/min Systolic Blood Pressure Non-Invasive 101 mmHg mmHg Diastolic Blood Pressure Non-Invasive 72 mmHg mmHg 03/28/2023 9:47 EST Systolic Blood Pressure Non-Invasive 99 mmHg mmHg Diastolic Blood Pressure Non-Invasive 72 mmHg mmHg 03/28/2023 9:45 EST Temperature (Route Not Specified) 36.17 DegC DegC Heart Rate Monitored 55 bpm bpm Respiratory Rate - Anes 12 br/min br/min 03/28/2023 9:44 EST Systolic Blood Pressure Non-Invasive 110 mmHg mmHg Diastolic Blood Pressure Non-Invasive 81 mmHg mmHg 03/28/2023 9:41 EST Systolic Blood Pressure Non-Invasive 114 mmHg mmHg Diastolic Blood Pressure Non-Invasive 85 mmHg mmHg 03/28/2023 9:40 EST Temperature (Route Not Specified) 36.28 DegC DegC Heart Rate Monitored 63 bpm bpm Respiratory Rate - Anes 10 br/min br/min 03/28/2023 9:38 EST Systolic Blood Pressure Non-Invasive 161 mmHg mmHg Diastolic Blood Pressure Non-Invasive 112 mmHg mmHg 03/28/2023 9:35 EST Heart Rate Monitored 55 bpm bpm Respiratory Rate - Anes 10 br/min br/min Systolic Blood Pressure Non-Invasive 138 mmHg mmHg Diastolic Blood Pressure Non-Invasive 94 mmHg mmHg 03/28/2023 9:32 EST Systolic Blood Pressure Non-Invasive 153 mmHg mmHg Diastolic Blood Pressure Non-Invasive 97 mmHg mmHg 03/28/2023 9:30 EST Heart Rate Monitored 69 bpm bpm Respiratory Rate - Anes 22 br/min br/min 03/28/2023 9:29 EST Systolic Blood Pressure Non-Invasive 150 mmHg mmHg Diastolic Blood Pressure Non-Invasive 104 mmHg mmHg 03/28/2023 9:26 EST Systolic Blood Pressure Non-Invasive 179 mmHg mmHg Diastolic Blood Pressure Non-Invasive 104 mmHg mmHg 03/28/2023 9:25 EST Respiratory Rate - Anes 10 br/min br/min (Modified) 03/28/2023 6:29 EST Temperature Temporal Artery 36.1 DegC Peripheral Pulse Rate 46 bpm <LLOW Respiratory Rate 18 br/min Systolic Blood Pressure Non-Invasive 132 mmHg Diastolic Blood Pressure Non-Invasive 76 mmHg . Mental status: at preoperative baseline. Respiratory function: respirations are non-labored, Stable. Respiratory support: none. CV function: Stable. Cardiovascular support: none. Pain: Satisfactory. Nausea status: Satisfactory. Postoperative hydration status: within normal limits. Notes: Patient is sufficiently recovered from anesthesia to participate in the evaluation. No follow-up care needed. No complications post-anesthesia.. Digitally Signed by EKATERINA BLUE MD on 03/28/2023 01:05 PM * AZALIA NY MD: VERIFY, MODIFY, SIGN, PERFORM, SIGN Event Display: Anesthesiology Consultation Authored Date: Patient: ARELI RUELAS Age: 62 years Sex: Male : 1960 Associated Diagnoses: None Author: AZALIA NY MD Preoperative Information Time of last food or liquid consumption: 03/28/2023 00:00:00 Anesthesia history Patient's history: respiratory/cardiac arrest during 2019 back surgery.. Family's history: negative. Health Status Allergies: Allergic Reactions (Selected) Severity Not Documented Lyrica- Hives. Penicillin- Hives. Red Dye- Hives., Allergies (3) ActiveReaction LyricaHives penicillinHives Red DyeHives Current medications: (Selected) Inpatient Medications Ordered LR 1,000 mL: 20 mL/hr, Intravenous, Stop: 03/28/23 22:59:00 EST NS 1,000 mL: 20 mL/hr, Intravenous, Stop: 03/28/23 22:59:00 EST albuterol 2.5 mg/3 mL (0.083%) inhalation solution: 2.5 mg, 3 mL, Inhalation, q4h, PRN: Wheezing allopurinol: 100 mg, 1 tab(s), Oral, qDayPC atorvastatin: 80 mg, 1 tab(s), Oral, qDay fluticasone 50 mcg/inh NASAL spray: 100 mcg, 2 spray(s), Nostril, each, qAM hydrALAZINE: 50 mg, 1 tab(s), Oral, BID lidocaine 1% preservative-free injectable solution: 2.5 mg, 0.25 mL, Intradermal, prep pharm lisinopril: 40 mg, 2 tab(s), Oral, qDay potassium chloride extended release: 20 mEq, 1 tab(s), Oral, qDay promethazine: 6.25 mg, 5 mL, Oral, QID sotalol 80 mg oral tablet: 80 mg, 1 tab(s), Oral, BID traZODone: 50 mg, 1 tab(s), Oral, qHS, PRN: Insomnia Incomplete Vitamin D3 50 mcg (2000 intl units) oral capsule: 2,000 unit(s), 1 cap(s), Oral, Daily Wixela Inhub 250 mcg-50 mcg inhalation powder: 1 puff(s), Inhalation, BID amLODIPine: See Instructions carvedilol 6.25 mg oral tablet: cephalexin 500 mg oral capsule: 500 mg, 1 cap(s), Oral, BID cloNIDine: See Instructions furosemide: See Instructions Prescriptions Prescribed ProAir HFA MDI (90 mcg/inh) inhalation aerosol: 2 puff(s), Inhalation, q4h, PRN: as needed for wheezing, 1 EA, 11 Refill(s) Vitamin D3 50 mcg (2000 intl units) oral capsule: 2,000 unit(s), 1 cap(s), Oral, Daily, 100 cap(s),3 Refill(s) Wixela Inhub 250 mcg-50 mcg inhalation powder: 1 puff(s), Inhalation, BID, rinse mouth and throat after use, 60 EA, 11 Refill(s) acetaminophen-hydrocodone 325 mg-10 mg oral tablet: 1 tab(s), Oral, QID, for 30 day(s), PRN: for pain, 120 tab(s), 0 Refill(s) allopurinol 100 mg oral tablet: 100 mg, 1 tab(s), Oral, qDayPC, 90 tab(s), 0 Refill(s) amLODIPine 5 mg oral tablet: See Instructions, TAKE 1 TABLET BY MOUTH EVERY DAY, 30 tab(s), 0 Refill(s) aspirin 81 mg oral delayed release tablet: 81 mg, 1 tab(s), Oral, qDay, 90 tab(s), 3 Refill(s) atorvastatin 80 mg oral tablet: 80 mg, 1 tab(s), Oral, qDay, 90 tab(s), 3 Refill(s) cephalexin 500 mg oral capsule: 500 mg, 1 cap(s), Oral, BID, hx of persistant hip infections post-replacement, 180 cap(s), 1 Refill(s) cloNIDine 0.1 mg oral tablet: See Instructions, TAKE 1 TABLET BY MOUTH TWICE A DAY, 60 tab(s), 0 Refill(s) fluticasone 50 mcg/inh NASAL spray: 2 spray(s), Nostril, each, qAM, 15.8 mL, 1 Refill(s) furosemide 40 mg oral tablet: See Instructions, TAKE 1 TABLET BY MOUTH TWICE A DAY, 180 tab(s), 1 Refill(s) hydrALAZINE 50 mg oral tablet: 50 mg, 1 tab(s), Oral, BID, 180 tab(s), 0 Refill(s) lisinopril 40 mg oral tablet: 40 mg, 1 tab(s), Oral, qDay, 90 tab(s), 1 Refill(s) mupirocin 2% topical ointment: 1 ashley, Topical, BID, Bilateral intranasal application twice daily x 5 days pre-surgery &/or as many days pre-surgery as possible., 22 gram(s), 0 Refill(s) potassium chloride 20 mEq oral tablet, extended release: 20 mEq, 1 tab(s), Oral, qDay, Take with food, 90 tab(s), 4 Refill(s) promethazine 6.25 mg/5 mL oral syrup: 6.25 mg, 5 mL, Oral, QID, for 30 day(s), NO RED DYE! Grape flavor ok, 180 mL, 2 Refill(s) sildenafil 20 mg oral tablet: 60 mg, 3 tab(s), Oral, Daily, DO NOT TAKE SAME DAY IF USING ISOSORBIDMONONITRATE (IMDUR), PRN: erectile dysfunction, 60 tab(s), 2 Refill(s) sotalol 80 mg oral tablet: 80 mg, 1 tab(s), Oral, BID, 60 tab(s), 0 Refill(s) traZODone 50 mg oral tablet: 50 mg, 1 tab(s), Oral, qHS, PRN: Sleep / Insomnia, 90 tab(s), 1 Refill(s) warfarin 4 mg oral tablet: See Instructions, Take 1 and 1/2 tabs (6 mg) on Monday, Monday, Monday, and Monday. Take 2 tabs (8mg) on Monday & Monday., 150 tab(s), 3 Refill(s) Documented Medications Documented albuterol 2.5 mg/3 mL (0.083%) inhalation solution: 2.5 mg, 3 mL, Inhalation, q4h, PRN: for wheezing, 25 EA, 0 Refill(s) carvedilol 6.25 mg oral tablet: 60 EA, 0 Refill(s), take 1 tablet by mouth twice a day, 0 Refill(s), Medications (13) Active Scheduled: (9) allopurinol 100 mg tablet 100 mg 1 tab(s), Oral, qDayPC atorvastatin 80 mg tablet 80 mg 1 tab(s), Oral, qDay fluticasone nasal 0.05 mg/inh Francis 100 mcg 2 spray(s), Nostril, each, qAM hydralazine 50 mg Tablet 50 mg 1 tab(s), Oral, BID lidocaine 1% (MPF) 2 mL vial pf 2.5 mg 0.25 mL, Intradermal, prep pharm lisinopril 20 mg tablet 40 mg 2 tab(s), Oral, qDay potassium chloride 20 mEq ER tablet 20 mEq 1 tab(s), Oral, qDay promethazine 6.25 mg/5 mL syrup (60mL) 6.25 mg 5 mL, Oral, QID sotalol 80 mg Tablet 80 mg 1 tab(s), Oral, BID Continuous: (2) Lactated Ringers 1,000 mL 1,000 mL, Intravenous, 20 mL/hr NS (0.9% nacl) 1,000 mL 1,000 mL, Intravenous, 20 mL/hr PRN: (2) albuterol 0.083% Soln UD (2.5mg/3 mL) 2.5 mg 3 mL, Inhalation, q4h traZODONE 50 mg Tablet 50 mg 1 tab(s), Oral, qHS Problem list: Medical Angina pectoris / SNOMED CT 923053314 / Confirmed Asthma / SNOMED CT 783629226 / Confirmed Severe obesity (BMI >= 40) / SNOMED CT 3438127626 / Confirmed BMI 40.0-44.9, adult / SNOMED CT 9310002637 / Confirmed BMI 45.0-49.9, adult / SNOMED CT 2339261788 / Confirmed Chronic kidney disease, stage 3a / SNOMED CT 7381060417 / Confirmed COPD mixed type / SNOMED CT 70140554 / Confirmed Chronic pain / SNOMED CT 337443864 / Confirmed Colon cancer screening declined, 2021, 2022 / SNOMED CT 5590233739 / Confirmed Other intervertebral disc degeneration, lumbar region / SNOMED CT 53421844 / Confirmed Diastolic heart failure with preserved ejection fraction / SNOMED CT 6665653456 / Confirmed Difficult intravenous access / SNOMED CT 2981484235 / Confirmed Erectile dysfunction / SNOMED CT 1923418948 / Confirmed Essential hypertension / SNOMED CT 72322312 / Confirmed First degree AV block / SNOMED CT 937942686 / Confirmed Gout / SNOMED CT 310889577 / Confirmed Grade A1 albuminuria / SNOMED CT 2329965645 / Confirmed History of ST elevation myocardial infarction (STEMI) / SNOMED CT 8937512412 / Confirmed History of cardiopulmonary arrest, 2019 during surgery / SNOMED CT 0106964462 / Confirmed History of DVT of lower extremity / SNOMED CT 2125241431 / Confirmed S/P coronary artery stent placement / SNOMED CT 2541819363 / Confirmed Insomnia / SNOMED CT 796560550 / Confirmed Chronic anticoagulation with Warfarin goal 2.0-3.0 / SNOMED CT 0872218029 / Confirmed Lumbar postlaminectomy syndrome / SNOMED CT 286899277 / Confirmed Lumbar spondylosis / SNOMED CT 062549633 / Confirmed Major depressive disorder in remission / SNOMED CT 95022885 / Confirmed Microcytic anemia / SNOMED CT 838090702 / Confirmed Obstructive sleep apnea, intolerent to CPAP / SNOMED CT 862442255 / Confirmed Osteoarthritis / SNOMED CT 1071237485 / Confirmed Numbness and tingling of right leg / SNOMED CT 2075740727 / Confirmed Paroxysmal atrial fibrillation / SNOMED CT 381176459 / Confirmed Polypharmacy / SNOMED CT 157111360 / Confirmed termination clerk prescription opiate use / SNOMED CT 898066846 / Confirmed Pure hypercholesterolemia / SNOMED CT 531281662 / Confirmed Chronic radicular lumbar pain / SNOMED CT 37268095 / Confirmed Lumbar spinal stenosis / SNOMED CT 69047652 / Confirmed, Active Problems (37) Angina pectoris Asthma BMI 40.0-44.9, adult BMI 45.0-49.9, adult Chronic anticoagulation with Warfarin goal 2.0-3.0 Chronic kidney disease, stage 3a Chronic pain Chronic radicular lumbar pain Colon cancer screening declined, 2021, 2022 COPD mixed type Diastolic heart failure with preserved ejection fraction Difficult intravenous access Erectile dysfunction Essential hypertension First degree AV block Gout Grade A1 albuminuria History of cardiopulmonary arrest, 2019 during surgery History of DVT of lower extremity History of ST elevation myocardial infarction (STEMI) Insomnia termination 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 Resolved. Migraine (62099430): Resolved. Family History: Diabetes mellitus Son (Ryan Ruelas) Stable Daughter (Shahla Finch) Comments: 08/19/2020 14:11 EDT - Flo Lazaro LPN Adopted Diabetes Grandparent Daughter (Shahla Finch) Son (Areli Ruelas 111) Son (Chivo Ruelas) Hemorrhage Mother () Comments: 09/25/2018 15:51 EDT - Ekaterina Carney LPN of brain Procedure history: PM Inj Spine L/S With Imaging SN on 10/03/2022 at 62 Years. Comments: 10/03/2022 10:44 EDT - Gagandeep Lanier RN auto-populated from documented surgical case PM Inj Spine L/S With Imaging SN on 08/01/2022 at 62 Years. Comments: 08/01/2022 11:26 Jeremiah Montemayor RN auto-populated from documented surgical case Cardiac catheterization ([id number]) on 03/03/2019 at 58 Years. Stent in branch of right coronary artery ([id number]) on 03/03/2019 at 58 Years. Revision of total hip arthroplasty ([id number]) on 04/22/2016 at 55 Years. Comments: 09/25/2018 15:18 Ekaterina Aguilera LPN Left Hip, Application of Incisional Wound VAC Arthroplasty ([id number]) on 01/21/2016 at 55 Years. Comments: 09/25/2018 15:20 Ekaterina Aguilera LPN Left Hip, Prostalac spacer placement, cemented freedom liner acetabulum Aspiration of soft tissue ([id number]) on 06/29/2015 at 54 Years. Comments: 09/25/2018 15:35 Ekaterina Aguilera LPN Several different procedures on this left thigh for infection of abcess, wound VAC 09/25/2018 15:21 Ekaterina Aguilera LPN Lateral aspect of proximal left thigh Arthroplasty ([id number]) on 12/29/2011 at 51 Years. Comments: 09/25/2018 15:36 Ekaterina Aguilera LPN Revision of Left Hip Diskectomy ([id number]) on 05/02/2011 at 50 Years. Comments: 09/25/2018 15:38 Ekaterina Aguilera LPN and Fusion L5-S1 and L4-L5 Total hip replacement ([id number]) on 11/10/2005 at 45 Years. Comments: 09/25/2018 15:45 Ekaterina Aguilera LPN Left Arthroscopy of knee ([id number]) on 08/29/2001 at 41 Years. Comments: 09/25/2018 15:43 Ekaterina Aguilera LPN Right knee Varicose vein ligation and stripping ([id number]) on 01/17/1999 at 38 Years. Circumcision ([id number]). Injection in back ([id number]). Thumb surgery ([id number]). 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 Substance Abuse 03/28/2023 Use: Never 4Risk Assessment: Denies Substance Abuse Tobacco 03/28/2023 Tobacco Use: 10 or more cigarettes (1/ Tobacco use per day: 10 Number of years: 22 Started at age: 40 Years Smoking Cessation Information Instructed to not smoke d Comment: Tobacco/smoke exposure - daily - 09/25/2018 15:47 - Ekaterina Carney LPN Home/Environment 03/28/2023 Living situation: Home/Independent Safe place to go: Yes 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 Physical Examination Vital Signs 03/28/2023 6:29 EST Temperature Temporal Artery 36.1 DegC Peripheral Pulse Rate 46 bpm <LLOW Respiratory Rate 18 br/min Systolic Blood Pressure Non-Invasive 132 mmHg Diastolic Blood Pressure Non-Invasive 76 mmHg Vital Signs(last 24 hrs) Last Charted Resp Rate 18 br/min (MAR 28 06:29) HDD639 mmHg (MAR 28 06:29) DBP76 mmHg (MAR 28 06:29) Measurements from flowsheet : Measurements 03/28/2023 6:29 EST Height 180.3 cm Height in inches 71 inch(es) Admission Weight 153.4 kg Weight Lbs 337.5 lb [place] Body Weight 75.26 kg Type of Scale Used Bed scale Admission Body Mass Index 47.19 m2 Pain assessment: Pain Assessment 03/28/2023 6:29 EST Primary Pain Location Lower back Primary Pain Intensity 8 Primary Pain Quality Sharp Primary Pain Pharma Intervention Refused interventions Primary Pain Nonverbal Response Nods Yes Pain Scale Type 0-10 Pain scale . General: Alert and oriented, No acute distress. Airway: Mallampati classification: III (soft palate, base of uvula visible). Dentition Evaluation: Own teeth. Respiratory: Lungs are clear to auscultation. Cardiovascular: Normal rate. Heart Sounds: Normal. Review / Management Results review: Labs (Last four charted values) Plt L 143(MAR 28) PT 13.2(MAR 28) INR 1.2(MAR 28) PTT 30.8(MAR 28) , Lab results 03/28/2023 6:35 EST SN - Preop - CTm Pt Ready for OR/Proced 03/28/2023 6:35 03/28/2023 6:35 EST Platelet 143 10^3/mcL LOW Heparin dose (APTT) Unknown APTT 30.8 seconds Protime 13.2 seconds PT International Ratio 1.2 ratio NA Fibrinogen 487 mg/dL 03/28/2023 6:34 EST Hand Left 03/28/2023 20 gauge Peripheral IV Activity: Insert new site Peripheral IV Dressing Condition: Clean, Dry, Intact Peripheral IV Dressing Activity: Applied Peripheral IV Line Status/Patency: Continuous infusion Peripheral IV Site Condition: No complications Peripheral IV Equipment: Manual Peripheral IV Number of Attempts: 1 03/28/2023 6:33 EST vancomycin 2,000 mg mg Sodium Chloride 0.9% Begin Bag 1,000 mL mL 03/28/2023 6:29 EST Height 180.3 cm Height in inches 71 inch(es) Admission Weight 153.4 kg Weight Lbs 337.5 lb [place] Body Weight 75.26 kg Type of Scale Used Bed scale Admission Body Mass Index 47.19 m2 Temperature Temporal Artery 36.1 DegC Peripheral Pulse Rate 46 bpm <LLOW Respiratory Rate 18 br/min Systolic Blood Pressure Non-Invasive 132 mmHg Diastolic Blood Pressure Non-Invasive 76 mmHg Primary Pain Location Lower back Primary Pain Intensity 8 Primary Pain Quality Sharp Primary Pain Pharma Intervention Refused interventions Primary Pain Nonverbal Response Nods Yes Pain Scale Type 0-10 Pain scale Nail Bed Color Inchelium Capillary Refill < 2 seconds Heart Rhythm Regular Dorsalis Pedis Pulse, Left 2+ Normal Dorsalis Pedis Pulse, Right 2+ Normal Respirations Unlabored Respiratory Pattern Regular Breath Sounds Auscultated Anterior only All Lobes Breath Sounds Clear Oxygen Therapy Room air Oxygen Saturation 97 % Abdomen Description Non-distended, Soft Abdomen Palpation Non-Tender Bowel Movement Last Date 03/27/2023 Bowel Sounds All Quadrants Present Urinary Elimination Voiding, no difficulties All Extremity Description Normal for ethnicity Skin Temperature Warm Temperature All Extremities Warm Skin Description Normal for ethnicity Skin Integrity Intact Mucous Membrane Color Inchelium Skin Moisture General Dry Extremity Movement Equal Characteristics of Speech Clear Level of Consciousness Alert SARAI Yes Strength All Extremities Moderate Tone All Extremities Normal Sensation All Extremities Intact Affect/Behavior Appropriate, Calm, Cooperative Orientation Oriented x 4 Orientation Assessment Oriented x 4 Pt./Caregiver Remote Cont.Visual Monitor Verbalizes/Nonverbally indicates understanding Assistive Device Cane Activity Status ADL Awake Standard Safety ID band on, Allergy Band on, Call device within reach, Bed in low position, Wheels locked, Upper/Half-Length side-rails up, Phone within reach, personal items within reach 03/28/2023 6:26 EST SN - Preop - CTm Pt in SDS Room 03/28/2023 6:25 03/28/2023 6:26 EST Urinary Elimination Voiding, no difficulties IV Present Present Violence Risk Confused No Violence Risk Irritable No Violence Risk Boisterous No Violence Risk Verbal Threats No Violence Risk Physical Threats No Violence Risk Attacking Objects No Violence Risk Predictor Score 0 Violence Risk Intervention None Violence Risk Current Interventions None Allergies Yes Consent Form Signed Yes Patient Dressed In Hospital gown CHG Preoperative Wash/Wipe Night before procedure, Day of procedure, Site specific wipe Non-CHG Preoperative Shampoo Shampoo, Completed Preop Nasal Swab Povidone-Iodine CHG Skin Prep Completed for Eligible Surgery History & Physical Update On Chart Yes History & Physical On Chart Yes Obstructive Sleep Apnea Assess Completed Yes MRSA/MSSA Protocol Yes Individuals Taught Patient Learning Readiness low motivation level Barriers to Learning None evident Teaching Method Explanation, Printed materials Preferred Spoken Language Peruvian Preferred Written Language Peruvian Disease Process General Education Signs/Symptoms of complications Discharge Planning Education Importance of follow up appt w/physician Pain Medication Education Pain scale Pre Procedure/Surgery Education 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 Safety Measures Education Call light use Belongings At Bedside Cell phone, Glasses, Jacket, Pants, Shirt, Shoes, Socks Personal Home Medications Received Received from patient NPO Status Maintained Allergy Band on and Verified Yes Patient ID Band on and Verified Yes Implants Verified Yes Pacemaker/AICD Verified Yes Site Verified by Patient/Family Yes Last Fluid Intake 03/27/2023 20:00 Last Food Intake 03/27/2023 20:00 Last Void 03/28/2023 6:29 Patient Cleared for Surgery By GAGANDEEP BARCLAY DO Cardiac Clearance For Surgery By POLO OCONNOR MD 03/28/2023 6:17 EST Designated Person #1 We May Share PHI ADAM BRINDA [phone] Designated Person #1 Relationship Significant other Designated Person #2 We May Share PHI Tanna James ([phone]) Designated Person #2 Relationship Friend Privacy Restrictions Requested None Status N/A Sensory Deficits None Diagnosed With Sleep Apnea Yes Advanced Directives No - refuses information Infectious Disease Symptoms Patient states no symptoms Infectious Disease Recent Exposure No Alcohol and Drug Use No Employee of Institutional Living No Health Care Employee No History of Exposure to TB No History of Positive Chest X-Ray for TB No History of Positive TB Skin Test No Homeless No Known Immunosuppression No Recent Immigrant No Resident of Institutional Living No Bloody Sputum No Fatigue No Fever No Loss of Appetite No Night Sweats No Persistent Cough > 3 Weeks No Weight Loss No Surgery Scheduled On Date/Time 03/28/2023 9:00 Patient Aware Date/Time Of Surgery Yes Arrival Time the Day of Surgery 03/28/2023 6:00 Patient Aware of Arrival Time Yes Previous Surgery At This Facility No Pre-Op Patient Education NPO after midnight, No smoking after midnight, No jewelry, Responsible Green Party, Aware of surgery location, Pre-op education done, 2 bottles CHG wash with instructions given, Instructed to take ordered medications, VTE prevention handout given, SSI prevention handout given, MRSA protocol education provided SN - Preprocedure Comments Spoke with patient, Verbalizes/Nonverbally indicates understanding Barriers to Learning None evident Teaching Method Explanation Preferred Spoken Language Peruvian Preferred Written Language Peruvian Teaching Evaluation Verbalizes/Nonverbally indicates understanding Safety Brochure Information Reviewed Yes Cynthia Meyer Video Viewed Yes Information Given by Patient Patient's Current Physicians Patient's Current Physicians Discharge To, Anticipated Home independently Prev Test Positive/Diagnosis w/COVID-19 No Current Quarantine/Isolated any Illness No Any Contact with Sick Animals/Birds No Traveled Anywhere in Last 30 Days No Lost Weight Unintentionally Recently No Eat Poorly Due to Decreased Appetite No Total MST Score 0 N/A Personal Devices, Patient Valuables Assistive devices, Glasses Anesthesia/Transfusions Prior anesthesia Admission Note-Nursing Same Day Patient History 03/27/2023 16:23 EST Patient Instructions Documentation Patient Instructions Documentation 03/27/2023 14:57 EST Surgery Scheduled On Date/Time 03/28/2023 9:00 Arrival Time the Day of Surgery 03/28/2023 6:00 Patient Aware of Arrival Time Yes Pre-Op Patient Education NPO after midnight, No smoking after midnight, No jewelry, Responsible Green Party, Aware of surgery location, Pre-op education done, 2 bottles CHG wash with instructions given, Instructed to take ordered medications, VTE prevention handout given, SSI prevention handout given, MRSA protocol education provided (Modified) SN - Preprocedure Comments Spoke with patient, Verbalizes/Nonverbally indicates understanding Admission Note-Nursing Patient History PreTest (Modified) 03/27/2023 11:08 EST CSumsophie CSUMSOPHIE 03/27/2023 0:00 EST Medical/Surgical Clearance Scanned Cardiac Clearance Scanned . Assessment and Plan Citizen Of [place] Society of Anesthesiologists (ASA) physical status classification: Class IV, CAD; hx STEMI; HTN; super obesity; CRISTELA; afib; asthma; COPD. Anesthetic Preoperative Plan Anesthetic technique: General. Maintenance airway: Oral endotracheal tube. Risks discussed: nausea, vomiting, headache, sore throat, dental injury, hypotension, allergic reaction, serious complications. Informed consent: signed by patient. Notes: Mr. Ruelas was seen and examined by Azalia monroe MD. The medical record was reviewed.Consultations, lab results , radiographic results and cardiovascular studies examined and noted. Records regarding prior surgeries and anesthetics reviewed. Anesthesia was explained in detail and questions were invited and answered. We will proceed as outlined in the plan above.. Digitally Signed by AZALIA NY MD on 03/28/2023 08:00 AM Digitally Signed by AZALIA NY MD on 03/28/2023 08:16 AM [facility] Evaluation + Plan note Future Appointments Appointment Date:12/14/2021 10:45:00 AM Scheduled Provider: Location:[facility] Appointment Type:ACC POC Established Patient Appointment Date:12/17/2021 11:15:00 AM Scheduled Provider:GAGANDEEP BARCLAY DO Location:[facility] Appointment Type:PC OV Follow Up Diagnostic Tests Pending * Microalbumin Level Urine 12/07/21 [facility] Evaluation + Plan note Future Appointments Appointment Date:05/24/2022 11:00:00 AM Scheduled Provider:GAGANDEEP BARCLAY DO Location:[facility] Appointment Type:PC OV Appointment Date:05/24/2022 12:00:00 PM Scheduled Provider: Location:[facility] Appointment Type:ACC POC Established Patient [facility] Evaluation + Plan note Future Appointments Appointment Date:08/24/2022 09:45:00 AM Scheduled Provider:BRENT VILLATORO Location:[facility] PM Appointment Type:PM OV Appointment Date:08/24/2022 10:30:00 AM Scheduled Provider: Location:[facility] Appointment Type:ACC POC Established Patient Appointment Date:08/24/2022 11:00:00 AM Scheduled Provider:GAGANDEEP BARCLAY DO Location:[facility] Appointment Type:PC OV [facility] Evaluation + Plan note Future Appointments Appointment Date:08/24/2022 09:45:00 AM Scheduled Provider:BRENT VILLATORO Location:[facility] PM Appointment Type:PM OV Appointment Date:08/24/2022 10:30:00 AM Scheduled Provider: Location:[facility] Appointment Type:ACC POC Established Patient Appointment Date:08/25/2022 11:00:00 AM Scheduled Provider:GAGANDEEP BARCLAY DO Location:[facility] Appointment Type:PC OV [facility] Evaluation + Plan note Future Appointments Appointment Date:08/25/2022 11:00:00 AM Scheduled Provider:GAGANDEEP BARCLAY DO Location:[facility] Appointment Type:PC OV Appointment Date:09/14/2022 02:15:00 PM Scheduled Provider:BRENT VILLATORO Location:[facility] PM Appointment Type:PM OV Appointment Date:10/05/2022 10:45:00 AM Scheduled Provider: Location:[facility] Appointment Type:ACC POC Established Patient [facility] Evaluation + Plan note Future Appointments Appointment Date:10/10/2022 11:30:00 AM Scheduled Provider: Location:[facility] Appointment Type:ACC POC Established Patient Appointment Date:10/24/2022 11:15:00 AM Scheduled Provider:POLO ROD MD Location:[facility] PM Appointment Type:PM OV Appointment Date:02/28/2023 11:00:00 AM Scheduled Provider:GAGANDEEP BARCLAY DO Location:[facility] Appointment Type:PC OV Future Scheduled Tests Laboratory* Prostate Specific Antigen 08/25/22 * Thyroid Stimulating Hormone 08/25/22 * Free T4 08/25/22 * Uric Acid 08/25/22 * Vitamin B12 Level 08/25/22 * A1C Hemoglobin 08/25/22 * Complete Blood Count 08/25/22 * Lipid Profile 08/25/22 * Albumin/Creatinine Ratio, Random Urine 08/25/22 * Vitamin D Level 08/25/22 * Complete Metabolic Panel 08/25/22 [facility] Evaluation + Plan note Future Appointments Appointment Date:12/21/2022 11:00:00 AM Scheduled Provider: Location:[facility] Appointment Type:ACC POC Established Patient Appointment Date:12/21/2022 11:45:00 AM Scheduled Provider:BRENT VILLATORO Location:[facility] PM Appointment Type:PM OV Appointment Date:02/28/2023 11:00:00 AM Scheduled Provider:GAGANDEEP BARCLAY DO Location:[facility] Appointment Type:PC OV Future Scheduled Tests Laboratory* Prostate Specific Antigen 08/25/22 * Thyroid Stimulating Hormone 08/25/22 * Free T4 08/25/22 * Uric Acid 08/25/22 * Vitamin B12 Level 08/25/22 * A1C Hemoglobin 08/25/22 * Complete Blood Count 08/25/22 * Lipid Profile 08/25/22 * Albumin/Creatinine Ratio, Random Urine 08/25/22 * Vitamin D Level 08/25/22 * Complete Metabolic Panel 08/25/22 [facility] Evaluation + Plan note Future Appointments Appointment Date:01/16/2023 12:45:00 PM Scheduled Provider:POLO ROD MD Location:[facility] PM Appointment Type:PM OV Appointment Date:01/18/2023 10:30:00 AM Scheduled Provider: Location:[facility] Appointment Type:ACC POC Established Patient Appointment Date:02/28/2023 11:00:00 AM Scheduled Provider:GAGANDEEP BARCLAY DO Location:[facility] Appointment Type:PC OV Future Scheduled Tests Laboratory* Prostate Specific Antigen 08/25/22 * Thyroid Stimulating Hormone 08/25/22 * Free T4 08/25/22 * Uric Acid 08/25/22 * Vitamin B12 Level 08/25/22 * A1C Hemoglobin 08/25/22 * Complete Blood Count 08/25/22 * Lipid Profile 08/25/22 * Albumin/Creatinine Ratio, Random Urine 08/25/22 * Vitamin D Level 08/25/22 * Complete Metabolic Panel 08/25/22 [facility] Evaluation + Plan note Future Appointments Appointment Date:02/15/2023 11:30:00 AM Scheduled Provider: Location:[facility] Appointment Type:ACC POC Established Patient Appointment Date:02/15/2023 12:30:00 PM Scheduled Provider:BRENT VILLATORO Location:[facility] PM Appointment Type:PM OV Appointment Date:02/28/2023 11:00:00 AM Scheduled Provider:GAGANDEEP BARCLAY DO Location:[facility] Appointment Type:PC OV Future Scheduled Tests Laboratory* Prostate Specific Antigen 08/25/22 * Thyroid Stimulating Hormone 08/25/22 * Free T4 08/25/22 * Uric Acid 08/25/22 * Vitamin B12 Level 08/25/22 * A1C Hemoglobin 08/25/22 * Complete Blood Count 08/25/22 * Lipid Profile 08/25/22 * Albumin/Creatinine Ratio, Random Urine 08/25/22 * Vitamin D Level 08/25/22 * Complete Metabolic Panel 08/25/22 [facility] Evaluation + Plan note Future Appointments Appointment Date:02/28/2023 11:00:00 AM Scheduled Provider:GAGANDEEP BARCLAY DO Location:[facility] Appointment Type:PC OV Appointment Date:03/22/2023 12:00:00 PM Scheduled Provider:BRENT VILLATORO Location:[facility] PM Appointment Type:PM OV Appointment Date:03/29/2023 11:30:00 AM Scheduled Provider: Location:[facility] Appointment Type:ACC POC Established Patient Future Scheduled Tests Laboratory* Prostate Specific Antigen 08/25/22 * Thyroid Stimulating Hormone 08/25/22 * Free T4 08/25/22 * Uric Acid 08/25/22 * Vitamin B12 Level 08/25/22 * A1C Hemoglobin 08/25/22 * Complete Blood Count 08/25/22 * Lipid Profile 08/25/22 * Albumin/Creatinine Ratio, Random Urine 08/25/22 * Vitamin D Level 08/25/22 * Complete Metabolic Panel 08/25/22 [facility] Evaluation + Plan note Future Appointments Appointment Date:04/12/2023 01:15:00 PM Scheduled Provider: Location:[facility] Appointment Type:NS Post Op Appointment Date:04/19/2023 11:30:00 AM Scheduled Provider: Location:[facility] Appointment Type:ACC POC Established Patient Appointment Date:04/19/2023 12:00:00 PM Scheduled Provider:BRENT VILLATORO Location:[facility] PM Appointment Type:PM OV Appointment Date:09/19/2023 11:00:00 AM Scheduled Provider:GAGANDEEP BARCLAY DO Location:[facility] Appointment Type:[facility] Evaluation + Plan note Future Appointments Appointment Date:04/19/2023 11:30:00 AM Scheduled Provider: Location:[facility] Appointment Type:ACC POC Established Patient Appointment Date:04/19/2023 12:00:00 PM Scheduled Provider:BRENT VILLATORO Location:[facility] PM Appointment Type:PM OV Appointment Date:09/19/2023 11:00:00 AM Scheduled Provider:GAGANDEEP BARCLAY DO Location:[facility] Appointment Type:[facility] Evaluation + Plan note Future Appointments Appointment Date:05/24/2023 11:45:00 AM Scheduled Provider:BRENT VILLATORO Location:[facility] PM Appointment Type:PM OV Appointment Date:09/19/2023 11:00:00 AM Scheduled Provider:GAGANDEEP BARCLAY DO Location:[facility] Appointment Type:[facility] Evaluation + Plan note Future Appointments Appointment Date:06/21/2023 11:15:00 AM Scheduled Provider: Location:[facility] Appointment Type:ACC POC Established Patient Appointment Date:06/21/2023 11:45:00 AM Scheduled Provider:BRENT VILLATORO Location:[facility] Appointment Type:PM OV Appointment Date:09/19/2023 11:00:00 AM Scheduled Provider:GAGANDEEP BARCLAY DO Location:[facility] Appointment Type:PC OV [facility] Evaluation + Plan note Future Appointments Appointment Date:10/09/2023 11:30:00 AM Scheduled Provider:AKSHAT SAWYER Location:[facility] Appointment Type:PM OV Appointment Date:10/20/2023 10:00:00 AM Scheduled Provider:GAGANDEEP BARCLAY DO Location:[facility] Appointment Type:PC OV [facility] Evaluation + Plan note Future Appointments Appointment Date:11/06/2023 11:30:00 AM Scheduled Provider:AKSHAT SAWYER Location:[facility] Appointment Type:PM OV Appointment Date:11/15/2023 10:00:00 AM Scheduled Provider:GAGANDEEP BARCLAY DO Location:[facility] Appointment Type:PC OV Future Scheduled Tests Radiology* US Renal 10/20/23 [facility] Evaluation + Plan note Future Appointments Appointment Date:11/06/2023 11:30:00 AM Scheduled Provider:AKSHAT SAWYER Location:[facility] Appointment Type:PM OV Appointment Date:11/15/2023 10:00:00 AM Scheduled Provider:GAGANDEEP BACRLAY DO Location:[facility] Appointment Type:PC OV Future Scheduled Tests Laboratory* Basic Metabolic Panel 10/24/23 Radiology* US Renal 10/20/23 [facility] Evaluation + Plan note Future Appointments Appointment Date:12/11/2023 11:30:00 AM Scheduled Provider:AKSHAT SAWYER Location:[facility] Appointment Type:PM OV Future Scheduled Tests Radiology* US Renal 10/20/23 [facility] Evaluation + Plan note Future Appointments Appointment Date:04/08/2024 11:30:00 AM Scheduled Provider:AKSHAT SAWYER APRN-MANUFACTURING TECHNOLOGY ANALYST Location:[facility] Appointment Type:PM OV Future Scheduled Tests Laboratory* Basic Metabolic Panel 11/24/23 Radiology* US Renal 10/20/23 [facility] Evaluation + Plan note Future Appointments Appointment Date:05/06/2024 10:45:00 AM Scheduled Provider:AKSHAT SAWYER APRN-MANUFACTURING TECHNOLOGY ANALYST Location:[facility] Appointment Type:PM OV Future Scheduled Tests Laboratory* Uric Acid 04/09/24 Radiology* US Renal 10/20/23 [facility] Evaluation + Plan note Future Appointments Appointment Date:05/06/2024 10:45:00 AM Scheduled Provider:AKSHAT SAWYER APRN-MANUFACTURING TECHNOLOGY ANALYST Location:[facility] Appointment Type:PM OV Diagnostic Tests Pending * Lipoprotein (a) 04/11/24 * Apolipoprotein B 04/11/24 Future Scheduled Tests Laboratory* Uric Acid 04/09/24 Radiology* US Renal 10/20/23 [facility] Evaluation + Plan note Future Appointments Appointment Date:05/06/2024 10:45:00 AM Scheduled Provider:AKSHAT SAWYER APRN-MANUFACTURING TECHNOLOGY ANALYST Location:[facility] Appointment Type:PM OV Diagnostic Tests Pending * Apolipoprotein B 04/18/24 Future Scheduled Tests Laboratory* Uric Acid 04/09/24 Radiology* US Renal 10/20/23 [facility] Evaluation + Plan note Future Appointments Appointment Date:10/04/2024 10:45:00 AM Scheduled Provider:GAGANDEEP BARCLAY DO Location:[facility] Appointment Type:PC OV Follow Up Appointment Date:10/07/2024 01:45:00 PM Scheduled Provider:AKSHAT SAWYER APRN-MANUFACTURING TECHNOLOGY ANALYST Location:[facility] Appointment Type:PM OV Diagnostic Tests Pending * Apolipoprotein B 09/23/24 Future Scheduled Tests Radiology* US Renal 10/20/23 [facility] Evaluation + Plan note Future Appointments Appointment Date:02/05/2025 12:30:00 PM Scheduled Provider:SAMANTHA URIBE Location:[facility] Appointment Type:PM OV Future Scheduled Tests Laboratory* Uric Acid 10/04/24 * A1C Hemoglobin 10/04/24 * Complete Blood Count 10/04/24 * Complete Metabolic Panel 10/04/24 [facility] Evaluation noteNo assessment information available [facility] Work Phone: Evaluation note* Diagnosis Onset Date Resolution Status Acute gout acute Inability to ambulate due to multiple joints acute [facility] Work Phone: Hospital course Narrative No data available for this section [facility] Hospital Discharge instructions No data available for this section [facility] Progress note No data available for this section [facility] Advance Directives No Advanced Directives Records Found Advance Directive Response Recorded Date/ Time Advance Directives No January 20, 2020 7:58am Living Will No June 04, 2021 10:24am Power of Director Dietetics Department No June 04 10:24am Advance Directive Response Recorded Date/ Time Advance Directives No January 20, 2020 7:58am Living Will No December 01, 2021 12:13pm Power of Director Dietetics Department No November 12:13pm Advance Directive Response Recorded Date/ Time Advance Directives No January 20, 2020 7:58am Living Will No December 01, 2021 6:19pm Power of Director Dietetics Department No November 6:19pm Advance Directive Response Recorded Date/ Time Advance Directives No January 20, 2020 6:58am Living Will No December 01, 2021 5:19pm Power of Director Dietetics Department No November 5:19pm Chief Complaint and Reason for Visit Chief Complaint LUMBAR DEGEN,OA HIP/ RX HERE GOUT, INABILITY TO AMBULATE Reason for Visit Acute gout Inability to ambulate due to multiple joints Chief Complaint LUMBAR DEGEN,OA HIP/ RX HERE DEBILITY, RIGHT KNEE PAIN DEBILITY, RIGHT KNEE PAIN Reason for Visit Acute gout Inability to ambulate due to multiple joints Chief Complaint LUMBAR DEGEN,OA HIP/ RX HERE DEBILITY, RIGHT KNEE PAIN DEBILITY, RIGHT KNEE PAIN 1 Y FU Reason for Visit Essential (primary) hypertension Paroxysmal atrial fibrillation History of coronary artery stent placement Summary Purpose Family History No Family History Records Found Additional Source Comments Source Comments (unrecognize d section and content) In the event this informatio n is protected by the Federal Confidentiality of Alcohol and Drug Abuse Patient Records regulations: The Federal rules restrict any use of the information to criminally investigate or prosecute any alcohol or drug abuse patient.[facility] Care Team (unrecognized sect ion and content) Care Team Personnel Name: GAGANDEEP BARCLAY DO Position: P4 Physician - Primary Care Member Role: Primary Care Physician Address: Address: [address] [place] [address] Care Team Related Persons Name: TANNA GRISSOM Care Team Personnel Name: GAGANDEEP BARCLAY DO Position: P4 Physician - Primary Care Member Role: Primary Care Physician Address: Address: [address] [place] [address] Care Team Related Persons Name: TANNA GRISSOM Care Teams (unrecognized sec tion and content) Team Status: Active Member Role Status Dates Dr. Terry Turk MD Family Provider Active Dr. Gagandeep Barclay DO Primary Care Provider Active Team Status: Inactive Member Role Status Dates Dr. Gagandeep Barclay DO Primary Care Provider Active Dr. Stevie Owens MD Attending Provider, Referring Provider Active (unrecognized sect ion and content) No Status Records FoundNo Status Records FoundNo Status Records FoundNo Status Records Found INFORMATION SOURCE (unrecogn ized section and content) DATE CREATED AUTHOR 11/24/2023 [facility] ([place]) DATE CREATED AUTHOR AUTHOR'S ORGANIZ ATION 03/02/2024 [facility] DATE CREATED AUTHOR AUTHOR'S ORGANIZ ATION 08/18/2024 [facility] DATE CREATED AUTHOR AUTHOR'S ORGANIZ ATION 01/18/2025 [facility] FOR RECORDS PERTAINING TO PATIENTS WHO ARE OR HAVE BEEN ENROLLED IN A CHEMICAL DEPENDENCY/SUBSTANCEABUSE PROGRAM, SOME INFORMATION MAY BE OMITTED. This clinical summary was aggregated from multiple sources. Caution should be exercised in using it in the provision of clinical care. This summary normalizes information from multiple sources, and as a consequence, information in this document may materially change the coding, format and clinical context of patient data. In addition, data may be omitted in some cases. CLINICAL DECISIONS SHOULD BE BASED ON THE PRIMARY CLINICAL RECORDS. [facility] [employer] provides no warranty or guarantee of the accuracy or completeness of information in this document.
[2025-03-09 14:26] LABS: Hematocrit 33.4 % (40-54); Hemoglobin 10.6 g/dL (13.0-16.5); Immature Granulocytes Count 0.040 X10^3/uL (0.0-0.0); Mean Corp Hgb Conc 31.7 g/dL (32-36); Mean Corpuscular Volume 86.5 fL (80-94); Mean Platelet Vol. 12.0 fl (6.2-12.0); NRBC Flagged by Analyzer 0.1 % (0-5); Platelet Count 223 K/mm3 (150-450); RBC Distribution Width CV 17.2 % (11.6-14.6); RBC Distribution Width SD 51.8 fl (35.1-43.9); Red Blood Count 3.86 M/mm3 (4.6-6.2); White Blood Count 13.4 K/mm3 (4.4-11.0)
[2025-03-09] MEDS: 0.9% Normal Saline (1000mL) 1,000 ML 999 ML IV (14:28)
--- NOTE | 2025-03-09 14:29 | ED.VIS.CHEST ---
HPI History of Present Illness Chief Complaint: Chest Pain Narrative Narrative: Chief complaint and HPI: 64-year-old male with past medical history of proximal atrial fibrillation/DVT on warfarin, CAD with history of PCI, tobacco abuse, CHF, HTN presents for evaluation of chest pain. Patient states for the past several days he has been having a productive cough and increased shortness of breath. States he thought maybe had a viral illness. Patient states he has had left-sided chest pain for the past several days. Slightly worse today. Describes as crampy. EMS gave aspirin and nitro prior to arrival. Patient denies any fever, chills, abdominal pain, nausea, vomiting. States at baseline he has bilateral lower extremity swelling that is not any worse. Follows with Dr. Joyce with cardiology. Review of systems: See HPI Medications: As listed on the chart Allergies: As listed on the chart PFSH: Per chart Vital signs: As listed on the chart. Reviewed. Physical exam: Gen: A&O x3, NAD Head: Normocephalic, atraumatic Eyes: No sclera icterus, conjunctiva clear ENT: Dry mucous membranes Neck: Trachea midline CV: RRR, no murmurs, +1 bilateral pitting peripheral edema Resp: Lungs CTA BL, no w/r/c GI: Obese, abd soft, non-distended, non-tender, no r/r/g Musc: Full ROM, no deformity Skin: Warm, dry Neuro: Alert, oriented, grossly intact, sensation intact Psych: Cooperative, appropriate mood and affect [facility] Medical History Spinal cord stimulator status Varicose veins of both legs with edema Ulcer of left lower extremity with fat layer exposed History of ST elevation myocardial infarction (STEMI) (03/03/19) Inability to ambulate due to multiple joints Acute gout Wears glasses Ambulates with cane Arthritis History of Walker's palsy Nicotine vapor product user Shortness of breath on exertion History of edema History of steroid therapy Atherosclerosis of coronary artery of [place] heart without angina pectoris Diastolic congestive heart failure Cardiac dysrhythmia Paroxysmal atrial fibrillation Diastolic dysfunction with acute on chronic heart failure Paroxysmal atrial flutter Cardiopulmonary arrest (08/20/18) History of deep vein thrombosis (DVT) of lower extremity Nicotine dependence Chronic pain Obstructive sleep apnea COPD (chronic obstructive pulmonary disease) Failed back syndrome of lumbar spine Degeneration of intervertebral disc of lumbosacral region Sacrococcygeal disorders, not elsewhere classified Morbid obesity Sacroiliitis, not elsewhere classified Essential (primary) hypertension Home Medications ?Medication ?Instructions ?Recorded ?Last Taken ?Type fluticasone propionate 50 1 spray NASAL DAILY PRN PRN 09/27/18 1 Week Ago History mcg/actuation nasal Allergies ~11/24/21 spray,suspension furosemide 40 mg tablet 40 mg PO BID #60 tabs 09/28/18 12/01/21 Rx aspirin 81 mg tablet,delayed 81 mg PO DAILY@0800 03/05/19 12/18/21 Rx release atorvastatin 80 mg tablet 80 mg PO QHS #30 tabs 03/05/19 12/01/21 Rx albuterol sulfate 90 mcg/actuation 1 - 2 puff inhalation Q4H PRN PRN 02/19/20 1 Week Ago History aerosol inhaler Asthma ~11/24/21 carvedilol 6.25 mg tablet 6.25 mg PO BID heart 02/19/20 05/09/22 History amlodipine 5 mg tablet 5 mg PO DAILY 12/01/21 05/09/22 History hydralazine 50 mg tablet 50 mg PO BID 12/01/21 05/09/22 History potassium chloride 20 mEq 20 meq PO DAILY 12/01/21 12/01/21 History tablet,extended release(part/cryst) (Klor-Con M) sildenafil (pulm.hypertension) 20 20 mg PO TID PRN HTN 12/01/21 Unknown History mg tablet trazodone 50 mg tablet 50 mg PO QHS PRN Sleep 12/01/21 Unknown History allopurinol 100 mg tablet 100 mg PO DAILYCM 30 days #30 tabs 12/02/21 Unknown Rx lisinopril 40 mg tablet 40 mg PO DAILY blood pressure 12/28/21 05/09/22 History warfarin 4 mg tablet 4 mg PO SUMOWETHSA 12/28/21 05/04/22 History warfarin 4 mg tablet 6 mg PO TUFR 12/28/21 05/04/22 History cephalexin 250 mg capsule 250 mg PO BID 03/24/23 Unknown History sotalol 80 mg tablet 80 mg PO BID bp,heart #180 tabs 03/24/23 Unknown Rx cholecalciferol (vitamin D3) 50 50 mcg PO DAILY 10/26/23 Unknown History mcg (2,000 unit) capsule (Vitamin D3) clonidine HCl 0.1 mg tablet 0.1 mg PO BID 10/26/23 Unknown History doxycycline hyclate 100 mg capsule 100 mg PO BID 10/26/23 Unknown History fluticasone 250 mcg-salmeterol 50 1 ea inhalation BID 10/26/23 Unknown History mcg/dose blistr powdr for inhalation lidocaine 4 % topical cream topical TID PRN PRN pain 10/26/23 Unknown History oxycodone-acetaminophen 7.5 mg-325 1 tab PO 4X/DAY PRN 12/19/23 Unknown History mg tablet Allergy/AdvReac Type Severity Reaction Status Date / Time Penicillins Allergy Hives Verified 03/09/25 13:47 pregabalin (From Lyrica) Allergy Hives Verified 03/09/25 13:47 red dye Allergy Angioedema Verified 03/09/25 13:47 Family History Mother CVA (cerebral vascular accident) Father , Murdered per patient No problems noted. Surgical History History of back surgery History of coronary artery stent placement (03/03/19) History of total knee arthroplasty History of total hip arthroplasty Social History household members: significant other Smoking Status: Light Smoker (<10/day) alcohol intake: never substance use type: does not use EXAM Physical Exam Const Vital Signs: 03/09/25 13:45 03/09/25 13:54 03/09/25 14:44 Temperature 98.3 F Temperature Source Oral Pulse Rate 68 84 Respiratory Rate 15 17 Respiratory Effort Short of Breath Blood Pressure 115/75 147/82 H Blood Pressure Mean 88 103 Pulse Ox 99 100 Oxygen Delivery Method Room Air 03/09/25 15:00 03/09/25 16:12 Temperature Temperature Source Pulse Rate 70 67 Respiratory Rate 15 15 Respiratory Effort Blood Pressure 150/74 H 159/70 H Blood Pressure Mean 99 99 Pulse Ox 97 99 Oxygen Delivery Method Room Air Room Air MDM MDM MDM Narrative Medical decision making narrative: 64-year-old male with past medical history of proximal atrial fibrillation/DVT on warfarin, CAD with history of PCI, tobacco abuse, CHF, HTN presents for evaluation of chest pain. Patient states for the past several days he has been having a productive cough and increased shortness of breath. States he thought maybe had a viral illness. Patient states he has had left-sided chest pain for the past several days. Slightly worse today. States at baseline he has bilateral lower extremity swelling that is not any worse. On chart review, patient's last cardiology office note is from 12/19/2023. His last echocardiogram is from 12/31/2024 in which he has an EF of 60%. His last cardiac catheterization was 03/03/2019 in which he had PCI placed in the distal RCA. Differential diagnosis includes but is not limited to viral illness, pneumonia, electrolyte abnormality, arrhythmia, ACS, CHF. Patient already received aspirin and nitro. Cardiac workup ordered. EKG and chest x-ray reviewed. CBC shows mild leukocytosis of 13.4. Patient has anemia with a hemoglobin of 10.6. Previous labs are from 2021 when she did not have anemia at that time. However previously has a history of anemia. Denies any bloody bowel movements. INR 2.6. Therapeutic. BMP shows renal insufficiency, suspect this is chronic. Improved from 2021. Magnesium unremarkable. BMP unremarkable. COVID, flu, RSV negative. Troponin unremarkable x 2. On reevaluation, chest pain has resolved. No clear etiology for his symptoms at this time. His symptoms may be secondary to viral illness. Suspect less likely ACS given his unremarkable cardiac workup. However patient does have a heart score of 5 which places him at moderate risk. Therefore cardiology was consulted. I spoke with Dr. Salvador and patient was discussed. Given chest pain has resolved and cardiac workup is unremarkable, okay with discharge home and follow-up outpatient in the office. Return back to the ED symptoms change or worsen. Patient confirmed understanding of plan. Patient discharged home. EKG: Interpreted by me/EM physician: EKG shows sinus arrhythmia. Nonspecific T wave abnormalities. Heart rate 84. No QTc prolonged Diagnostic: Interpreted by me/EM physician: Chest x-ray without consolidation, pneumothorax, large effusion, cardiomegaly. Per radiology right lower lung opacity, may reflect airspace disease. Impression: 1. Chest pain 2. Cough, possible viral illness Lab Data Labs: Laboratory Results - last 24 hr 03/09/25 03/09/25 13:50 15:45 WBC 13.4 H RBC 3.86 L Hgb 10.6 L Hct 33.4 L MCV 86.5 MCH 27.5 MCHC 31.7 L RDW Std Deviation 51.8 H RDW Coeff of Raheem 17.2 H Plt Count 223 MPV 12.0 Immature Gran % (Auto) 0.300 Neut % (Auto) 63.1 Lymph % (Auto) 26.5 Cross % (Auto) 7.5 Eos % (Auto) 2.1 Baso % (Auto) 0.5 Absolute Neuts (auto) 8.5 H Absolute Lymphs (auto) 3.55 Nucleated RBC % 0.1 PT 28.5 H INR 2.6 APTT 38.3 H Sodium 143 Potassium 3.3 Chloride 105 Carbon Dioxide 24.4 Anion Gap 14 BUN 35 H Creatinine 1.21 H Estim Creat Clear Calc 95.02 Est GFR (MDRD) Non-Af 66 BUN/Creatinine Ratio 29.1 H Glucose 99 Calcium 8.6 Magnesium 1.8 Troponin T High Sens 20 Troponin T Hi Sens 2 Hr 13 NT pro BNP II 346 Radiography Diagnostic Testing: Clinical Impression(s) from Imaging Studies Chest X-Ray 03/09/25 14:20 IMPRESSION: Right lower lung opacification which may reflect airspace disease. Reading Location: [id number] Discharge Plan Triage Chief Complaint: Chest Pain ED Provider: Cristobal Montejo Dx/Rx/DC Orders Prescriptions: No Action warfarin 4 mg tablet 6 mg PO TUFR Patient Comments: PCP MANAGING warfarin 4 mg tablet 4 mg PO SUMOWETHSA Patient Comments: PCP MANAGING sotalol 80 mg tablet 80 mg PO BID Qty: 180 3RF cephalexin 250 mg capsule 250 mg PO BID oxycodone-acetaminophen 7.5-325 mg tablet 1 tab PO 4X/DAY PRN lisinopril 40 mg tablet 40 mg PO DAILY fluticasone propionate 16 GM spray,suspension 1 spray NASAL DAILY PRN PRN (Reason: Allergies) Patient Comments: PLACE 2 SPRAYS IN EACH NOSTRIL ONCE DAILY furosemide 40 mg tablet 40 mg PO BID Qty: 60 0RF atorvastatin 80 MG tablet 80 mg PO QHS Qty: 30 0RF aspirin 81 MG tablet 81 mg PO DAILY@0800 0RF carvedilol 6.25 MG tablet 6.25 mg PO BID albuterol sulfate 1 PUFF inhaler 1 - 2 puff INHALATION Q4H PRN PRN (Reason: Asthma) sildenafil (pulm.hypertension) 20 mg tablet 20 mg PO TID PRN (Reason: HTN) amlodipine 5 mg tablet 5 mg PO DAILY hydralazine 50 mg tablet 50 mg PO BID Patient Comments: TAKE 1 TABLET BY MOUTH TWICE A DAY potassium chloride [Klor-Con M20] 20 mEq tablet,ER particles/crystals 20 meq PO DAILY trazodone 50 mg tablet 50 mg PO QHS PRN (Reason: Sleep) Patient Comments: TAKE 1 TABLET BY MOUTH AT BEDTIME NEEDED FOR SLEEP allopurinol 100 mg Tablet 100 mg PO DAILYCM 30 Days Qty: 30 0RF fluticasone propion-salmeterol 250-50 mcg/dose blister with device 1 ea inhalation BID clonidine HCl 0.1 mg tablet 0.1 mg PO BID doxycycline hyclate 100 mg capsule 100 mg PO BID lidocaine 4 % cream topical TID PRN PRN (Reason: pain) cholecalciferol (vitamin D3) [Vitamin D3] 50 mcg (2,000 unit) capsule 50 mcg PO DAILY Primary Care Provider: Gagandeep Barclay Referrals: Gagandeep Barclay DO [Primary Care Provider, Medical] Print Language: Azeri
[2025-03-09 14:34] LABS: Prothrombin Time (Protime)PT. 28.5 SECONDS (11.7-14.9)
[2025-03-09 14:35] LABS: Partial Thromboplast Time 38.3 Seconds (24.1-36.2)
[2025-03-09 14:44] VITALS: BP 147/82; PULSE 84; RESP 17; O2SAT 100
[2025-03-09 14:49] LABS: Anion Gap 14 (5-15); BUN 35 mg/dL (4-19); BUN/Creat Ratio 29.1 RATIO (10-20); Calcium,Total 8.6 mg/dL (7.6-11.0); Carbon Dioxide 24.4 mmol/L (21.0-32.0); Chloride 105 mmol/L (98-108); Estimated Creatinine Clearance 95.02 ml/min (50-250); Glucose 99 mg/dL (70-99); Magnesium 1.8 mg/dL (1.5-2.2); Potassium 3.3 mmol/L (3.3-5.1); Pro- Brain NATRIURETIC PEPTIDE 346 pg/mL (<=900); Troponin T High Sensitivity 20 ng/L (<=22)
[2025-03-09 15:00] VITALS: BP 150/74; PULSE 70; RESP 15; O2SAT 97
[2025-03-09 16:12] VITALS: BP 159/70; PULSE 67; RESP 15; O2SAT 99
[2025-03-09 16:17] LABS: Troponin T High Sens 2 HR 13 ng/L (<=22)
[2025-03-09 16:34] VITALS: BP 143/85; PULSE 75; RESP 18; TEMP 36.6; O2SAT 100
== END 2025-03-09 16:41 | disposition home or self-care (01) ==
PROVIDERS: Emergency Provider Surgery; Visit Provider Surgery
DX: R07.9 Chest pain, unspecified (principal); I50.33 Acute on chronic diastolic (congestive) heart failure; I11.0 Hypertensive heart disease with heart failure; I48.0 Paroxysmal atrial fibrillation; R05.1 Acute cough; R06.02 Shortness of breath; I25.10 Atherosclerotic heart disease of native coronary artery without angina pectoris; F17.200 Nicotine dependence, unspecified, uncomplicated; Z95.5 Presence of coronary angioplasty implant and graft; Z79.01 Long term (current) use of anticoagulants; Z79.82 Long term (current) use of aspirin; Z79.899 Other long term (current) drug therapy; Z86.718 Personal history of other venous thrombosis and embolism
CPT/HCPCS: 96360; 99284; 71046; 80048; 83735; 83880; 84484; 85025; 85610; 85730; 87631; 93005

== ENCOUNTER 2025-03-12 08:59 | Inpatient (IN) | payer MEDICARE, SELFPAY ==
[2019-07-19 12:16] VITALS: BMI 49.4
[2025-03-12] VITALS (24 sets, daily range): BP systolic 106–146; BP diastolic 37–99; PULSE 83–122; RESP 16–22; TEMP 36.5–37.3; O2SAT 94–100; BMI 45.6; BMI 46.8
--- NOTE | 2025-03-12 09:08 | EKG12_ITS ---
Test Reason : CHEST PAIN Blood Pressure : */* mmHG Vent. Rate : 91 BPM Atrial Rate : * BPM P-R Int : * ms QRS Dur : 84 ms QT Int : 448 ms P-R-T Axes : * 33 -66 degrees QTcB Int : 551 ms Critical Test Result: Long QTc Atrial fibrillation Cannot rule out Inferior infarct , age undetermined Prolonged QT Abnormal ECG Confirmed by Sam Belle ([id number]), marketing editor JOESPH RENDON ([id number]) on 03/14/2025 8:04:18 AM Referred By: Confirmed By: Sam Belle
--- NOTE | 2025-03-12 09:08 | RAD_ITS ---
PROCEDURE: CHEST PA AND LATERAL 03/12/2025 REASON FOR EXAM: CHEST PAIN. DIZZINESS. TECHNIQUE: Procedure Code: RADCXR Modality: DX Procedure: CHEST PA AND LATERAL COMPARISON: 03/09/2025 FINDINGS: Lungs: Lungs clear of pneumonia and congestion. Old healed granulomatous changes. Pleura: No pleural effusions, thickening, or pneumothorax. Heart: Mild cardiac enlargement. Mediastinum/[place]: Unremarkable. Great vessels: Unremarkable. Bones/soft tissues: Neurostimulator leads are noted. RAD/Chest PA and Lateral IMPRESSION: No active cardiopulmonary disease. Mild cardiomegaly. Reading Location: [place] [address]
--- NOTE | 2025-03-12 09:09 | ED.VIS.CHEST ---
HPI History of Present Illness Chief Complaint: Chest Pain Narrative Narrative: Patient is a 64-year-old male presenting to the emergency department for chest pain. Patient has a past medical history of STEMI, diastolic CHF, cardiac dysrhythmia, paroxysmal A-fib on warfarin, COPD, morbid obesity, hypertension, CRISTELA patient states that he was here on 03/09 with the same complaint. It was reportedly found that he was dehydrated and was discharged home. He follows with Dr. Joyce, cardiology. Patient states that he then developed chest pain again yesterday. He states that has been coming and going since. He has active chest pain at time of evaluation. He states it is a pressure-like pain on the left side of his chest that is radiating to his right arm. He states it feels similar to his past heart attack. He received 325 mg of baby aspirin by EMS. He endorses shortness of breath as well as nausea with 1 episode of vomiting this morning. Endorses baseline lower extremity swelling not worse than baseline. [facility] Medical History Spinal cord stimulator status Varicose veins of both legs with edema Ulcer of left lower extremity with fat layer exposed History of ST elevation myocardial infarction (STEMI) (03/03/19) Inability to ambulate due to multiple joints Acute gout Wears glasses Ambulates with cane Arthritis History of Walker's palsy Nicotine vapor product user Shortness of breath on exertion History of edema History of steroid therapy Atherosclerosis of coronary artery of [place] heart without angina pectoris Diastolic congestive heart failure Cardiac dysrhythmia Paroxysmal atrial fibrillation Diastolic dysfunction with acute on chronic heart failure Paroxysmal atrial flutter Cardiopulmonary arrest (08/20/18) History of deep vein thrombosis (DVT) of lower extremity Nicotine dependence Chronic pain Obstructive sleep apnea COPD (chronic obstructive pulmonary disease) Failed back syndrome of lumbar spine Degeneration of intervertebral disc of lumbosacral region Sacrococcygeal disorders, not elsewhere classified Morbid obesity Sacroiliitis, not elsewhere classified Essential (primary) hypertension Home Medications ?Medication ?Instructions ?Recorded ?Last Taken ?Type fluticasone propionate 50 1 spray NASAL DAILY PRN PRN 09/27/18 1 Week Ago History mcg/actuation nasal Allergies ~11/24/21 spray,suspension furosemide 40 mg tablet 40 mg PO BID FLUID OVERLOAD #60 09/28/18 12/01/21 Rx tabs aspirin 81 mg tablet,delayed 81 mg PO DAILY@0800 [facility] 03/05/19 12/18/21 Rx release atorvastatin 80 mg tablet 80 mg PO QHS HIGH CHOLESTEROL #30 03/05/19 12/01/21 Rx tabs albuterol sulfate 90 mcg/actuation 1 - 2 puff inhalation Q4H PRN PRN 02/19/20 1 Week Ago History aerosol inhaler Asthma ~11/24/21 carvedilol 6.25 mg tablet 6.25 mg PO BID heart 02/19/20 05/09/22 History amlodipine 5 mg tablet 5 mg PO DAILY HYPERTENSION 12/01/21 05/09/22 History hydralazine 50 mg tablet 50 mg PO BID HYPERTENSION 12/01/21 05/09/22 History potassium chloride 20 mEq 20 meq PO DAILY 12/01/21 12/01/21 History tablet,extended release(part/cryst) (Klor-Con M) sildenafil (pulm.hypertension) 20 20 mg PO TID PRN HTN 12/01/21 Unknown History mg tablet trazodone 50 mg tablet 50 mg PO QHS PRN Sleep 12/01/21 Unknown History allopurinol 100 mg tablet 100 mg PO DAILYCM 30 days #30 tabs 12/02/21 Unknown Rx lisinopril 40 mg tablet 40 mg PO DAILY blood pressure 12/28/21 05/09/22 History warfarin 4 mg tablet 4 mg PO SUMOWETHSA 12/28/21 05/04/22 History warfarin 4 mg tablet 6 mg PO TUFR 12/28/21 05/04/22 History sotalol 80 mg tablet 80 mg PO BID bp,heart #180 tabs 03/24/23 Unknown Rx cholecalciferol (vitamin D3) 50 50 mcg PO DAILY GENERAL HEALTH 10/26/23 Unknown History mcg (2,000 unit) capsule (Vitamin D3) clonidine HCl 0.1 mg tablet 0.1 mg PO BID 10/26/23 Unknown History fluticasone 250 mcg-salmeterol 50 1 ea inhalation BID SOB AND 10/26/23 Unknown History mcg/dose blistr powdr for WHEEZING inhalation lidocaine 4 % topical cream 1 applic topical TID PRN PRN pain 10/26/23 Unknown History oxycodone-acetaminophen 7.5 mg-325 1 tab PO 4X/DAY PRN pain 12/19/23 Unknown History mg tablet Allergy/AdvReac Type Severity Reaction Status Date / Time Penicillins Allergy Hives Verified 03/12/25 09:06 pregabalin (From Lyrica) Allergy Hives Verified 03/12/25 09:06 red dye Allergy Angioedema Verified 03/12/25 09:06 Family History Mother CVA (cerebral vascular accident) Father , Murdered per patient No problems noted. Surgical History History of back surgery History of coronary artery stent placement (03/03/19) History of total knee arthroplasty History of total hip arthroplasty Social History household members: significant other Smoking Status: Former smoker alcohol intake: never substance use type: does not use ROS ROS ED ROS Narrative see HPI EXAM Physical Exam Narrative Exam Narrative: Vital signs: Reviewed General: Alert and orientedx3. No acute distress. Chronically ill appearing, nontoxic. BMI of 45.7. HEENT: Head is normocephalic and atraumatic, sinuses nontender, pupils equal round and reactive. Nares are patent. Oropharynx and throat exams normal. Neck: Supple without lymphadenopathy nontender Cardiovascular: Irregularly irregular rate and rhythm, no murmurs. No rubs or gallops. Normal S1 and S2 Respiratory: Coarse breath sounds bilaterally, no wheezing. Abdominal: Soft and nontender. Normal bowel sounds. No guarding or rebound. 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 On rectal exam there is grossly melanotic stool. Extremities: Bilateral symmetric lower extremity edema. No warmth or drainage. No tenderness. No bruising. Normal range of motion. Normal sensation. Skin: No rash or redness. Neurological: Cranial nerves II through XII are grossly intact. Normal strength and sensation. Normal cerebellar function The rest of the physical exam is unremarkable Const Vital Signs: 03/12/25 09:00 03/12/25 09:04 03/12/25 09:26 Temperature 98.0 F Temperature Source Oral Pulse Rate 94 112 H Respiratory Rate 18 Respiratory Effort Normal Non-Labored Blood Pressure 116/99 H 130/70 H Blood Pressure Mean 104 Blood Pressure Source Blood Pressure Position Blood Pressure Location Pulse Ox 95 Oxygen Delivery Method Room Air 03/12/25 09:44 03/12/25 10:00 03/12/25 11:00 Temperature Temperature Source Pulse Rate 88 88 86 Respiratory Rate 18 18 18 Respiratory Effort Blood Pressure 106/42 L 129/54 H 139/60 H Blood Pressure Mean 63 79 86 Blood Pressure Source Blood Pressure Position Blood Pressure Location Pulse Ox 99 99 99 Oxygen Delivery Method Nasal Cannula 03/12/25 11:31 03/12/25 11:39 Temperature 97.8 F 98 F Temperature Source Oral Oral Pulse Rate 102 H 102 H Respiratory Rate 18 18 Respiratory Effort Blood Pressure 129/60 H 130/68 H Blood Pressure Mean 83 88 Blood Pressure Source Monitor Monitor Blood Pressure Position Semi-Fowlers Blood Pressure Location Right Arm Pulse Ox 97 98 Oxygen Delivery Method Room Air Room Air MDM MDM MDM Narrative Medical decision making narrative: Patient is a 64-year-old male presenting to the emergency department for chest pain that started yesterday. Patient was seen and examined. Vitals are stable. Patient in afib at a rate fo 94, BP stable at 116/99. RR of 18, afebrile saturating 95 on RA. Differential includes but is not limited to: ACS, pneumonia, COPD exacerbation, CHF, less likely pulmonary embolism as patient is compliant with his warfarin, pneumothorax EKG shows rate controlled A-fib at [address] elevation or depression. There are some T wave abnormalities in the lateral leads. Prolonged QTc on computer to read however I think this is due to artifact. Repeat EKG was obtained given the patient's continued to have chest pain and looks similar to initial. CBC with a nonspecific leukocytosis of 15.7 up from 13.4 3 days ago. Acute on chronic anemia at 4.6 down from 10.6 3 days ago. Patient typed and screened for 3 units of PRBC. Fecal occult will be obtained. Patient was reevaluated and he reports now on asking that he has had dark-colored stools for the past week. He is never had a GI bleed in the past. He has no abdominal pain. He denies any hematemesis or hematochezia. Denies any bright red blood per rectum. Denies any hematuria. He denies any alcohol use. Denies any significant NSAID use. Rectal exam with grossly melanotic stool. Patient given 40 mg IV Protonix. INR of 7.8 up from 2.0 3 days ago. Patient will be given IV vitamin K and PCC given his elevated INR and large drop in hemoglobin with what I would consider a life-threatening bleed at this time. His blood pressure is stable but did drop a little bit with the nitro that was initially given for what I thought was more ACS in nature. I think the benefits of reversing is warfarin outweigh the risks at this time. Talked to Dr. Gar at 10:15 AM and notified him of the patient and the evidence of bleeding on exam and laboratory studies. Explained that I was giving him 3 units and was reversing his warfarin. He asked that the patient's INR be rechecked after PCC and vitamin K and if it is less than 7 he will likely scope today. BMP with elevated BUN of 43 and creatinine at 1.28. Initial troponin of 24 will continue to trend. CTA of the abdomen and pelvis shows no evidence of an active GI bleed. Some chronic findings that can be seen in the reports. Chest x-ray reviewed by myself, evidence of cardiomegaly with no opacities, pneumothorax or wide mediastinum. Radiology read in agreement. Discussed the findings with patient and at bedside. Patient will be admitted to ICU for further management, spoke with Dr. Marques. Clinical impression: GI bleed Supratherapeutic INR Acute on chronic blood loss anemia Chest pain History & Record Review Discussion w/independent historian: Patient and Significant other Additional record(s) reviewed:: Prior ED visit and Prior labs Lab Data Attestation: I reviewed the patient's lab results. Labs: Laboratory Results - last 24 hr 03/12/25 03/12/25 03/12/25 09:13 09:15 09:54 WBC 15.7 H RBC 1.64 L Hgb 4.6 L* Hct 15.1 L MCV 92.1 D MCH 28.0 MCHC 30.5 L RDW Std Deviation 60.7 H RDW Coeff of Raheem 19.6 H Plt Count 200 MPV 11.7 Immature Gran % (Auto) 0.800 Neut % (Auto) 75.2 H Lymph % (Auto) 14.2 L [place] % (Auto) 8.4 Eos % (Auto) 1.0 Baso % (Auto) 0.4 Absolute Neuts (auto) 11.8 H Absolute Lymphs (auto) 2.24 Nucleated RBC % 0.7 PT 67.8 H INR 7.8 H* APTT 46.1 H Sodium 141 Potassium 3.7 Chloride 109 H Carbon Dioxide 20.6 Anion Gap 12 BUN 43 H Creatinine 1.28 H Estim Creat Clear Calc 85.11 Est GFR (MDRD) Non-Af 62 BUN/Creatinine Ratio 33.3 H Glucose 143 H Calcium 7.9 Magnesium 1.8 Total Bilirubin 0.35 Direct Bilirubin 0.18 AST 18 ALT 16 Alkaline Phosphatase 29 L Troponin T High Sens 24 H D Total Protein 4.5 L Albumin 2.8 L Globulin 1.7 L Blood Type O POSITIVE Antibody Screen NEGATIVE Crossmatch See Detail Radiography Chest X-Ray - ED: Read by ED Physician, Normal, No Acute Disease and Cardiomegaly Diagnostic Testing: Clinical Impression(s) from Imaging Studies Chest X-Ray 03/12/25 09:08 IMPRESSION: No active cardiopulmonary disease. Mild cardiomegaly. Reading Location: [place] [id number] Abdomen/Pelvis CTA 03/12/25 09:44 IMPRESSION: 1. No evidence of active gastrointestinal hemorrhage. 2. No evidence of aneurysm. 3. Widely patent visceral arteries. 4. Atherosclerotic calcific disease and tortuosity of the aorta and iliac arteries. 5. Hepatic cysts. 6. Bilateral renal cysts. 7. Prostatomegaly. 8. Diverticulosis. 9. Cholelithiasis. 10. Postoperative changes of the lumbosacral spine. 11. 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 12. Other nonacute findings detailed above. Reading Location: [place] [id number] Discharge Plan Triage Chief Complaint: Chest Pain ED Provider: Leigh Cai Dx/Rx/DC Orders Primary Care Provider: Gagandeep Barclay
--- NOTE | 2025-03-12 09:15 | EKG12_ITS ---
Test Reason : Blood Pressure : */* mmHG Vent. Rate : 97 BPM Atrial Rate : 97 BPM P-R Int : 200 ms QRS Dur : 84 ms QT Int : 350 ms P-R-T Axes : 80 44 242 degrees QTcB Int : 444 ms Sinus rhythm with marked sinus arrhythmia Possible Inferior infarct , age undetermined ST & T wave abnormality, consider lateral ischemia Abnormal ECG first degree av block Confirmed by Sam Belle ([id number]), web content editor JOESPH RENDON ([id number]) on 03/14/2025 8:03:47 AM Referred By: Confirmed By: Sam Belle
[2025-03-12 09:26] LABS: Hematocrit 15.1 % (40-54); Immature Granulocytes Count 0.130 X10^3/uL (0.0-0.0); Mean Corp Hgb Conc 30.5 g/dL (32-36); Mean Corpuscular Volume 92.1 fL (80-94); Mean Platelet Vol. 11.7 fl (6.2-12.0); NRBC Flagged by Analyzer 0.7 % (0-5); POSITIVE COUNT YES; Platelet Count 200 K/mm3 (150-450); RBC Distribution Width CV 19.6 % (11.6-14.6); RBC Distribution Width SD 60.7 fl (35.1-43.9); Red Blood Count 1.64 M/mm3 (4.6-6.2); White Blood Count 15.7 K/mm3 (4.4-11.0)
[2025-03-12] MEDS: Nitroglycerin SL (ED/IMG/CATH) 0.4 MG TABLET SL (09:26)
[2025-03-12 09:31] LABS: Hemoglobin 4.6 g/dL (13.0-16.5)
[2025-03-12 09:44] LABS: Magnesium 1.8 mg/dL (1.5-2.2); Troponin T High Sensitivity 24 ng/L (<=22)
--- NOTE | 2025-03-12 09:44 | CT_ITS ---
PROCEDURE: CTA ABD/PELVIS WITH CONTRAST 03/12/2025 REASON FOR EXAM: GI BLEED TECHNIQUE: Procedure Code: [id number] Modality: CT Contiguous axial scans of 2.5 mm slice thicknesses. Sagittal and coronal reconstruction images were obtained. In addition, three-dimensional color rendering of the images was also performed. One or more dose reduction techniques were used (e.g., automated exposure control, adjustment of mA and/or kv according to patient size, use of iterative reconstruction technique). CONTRAST: ISOVUE-300 VOLUME: 83 mL RADIATION DOSE SUMMARY: CTDlvol: 81.74 mGy DLP: 1883.20 mGycm COMPARISON: CTA chest dated 09/27/2018 PA and lateral chest dated 03/12/2025. FINDINGS: Aorta: Atherosclerotic tortuosity. No fusiform or saccular aneurysms. Incidental note is made of mild coronary artery calcifications. Iliac Arteries: Atherosclerotic calcific disease and tortuosity. Celiac: Widely patent. SMA: Widely patent. JULISSA : Not well-visualized. May be occluded. Right Renal: Widely patent. Left Renal: Widely patent. EXTRAVASCULAR: Lung bases: Hypoventilatory changes in the dependent lungs. Non-suspicious precarinal lymph nodes. Liver: Cyst, anterior aspect of the left hepatic lobe, axial image 65 measuring 3.1 x 2.6 cm. Gallbladder: Gallstones in the neck. Spleen: Normal in size and attenuation.. Pancreas: No masses or ductal dilatation. Adrenals: No nodules are gland thickening. Kidneys: Bilateral renal cysts, largest on the right measuring 2.8 x 2.4 cm and the largest on the left measuring 2.1 x 1.5 cm. Bladder: Unremarkable. Reproductive Organs: Prostatomegaly. Bowel: No evidence of obstruction. No bowel lesions. No signs of intraluminal active bleeding. Diverticulosis, descending and sigmoid colon. Appendix: Unremarkable. Lymph nodes: No suspicious lymphadenopathy. Vasculature: Unremarkable. Peritoneum / Retroperitoneum: No masses, free air, or free fluid. Anterior abdominal wall: Small periumbilical fat containing ventral hernia. Bones: Multilevel spondylosis and degenerative disc disease. Status post surgical fusion with instrumentation at L4 through S1. Neurostimulator device and leads. A left total hip prosthesis. Heterotopic bone formation adjacent to the left hip. Severe degenerative osteoarthritis, right hip. Small area of aseptic necrosis in the superior aspect of the right hip. CT/CTA Abd/Pelvis W/WO Contrast IMPRESSION: 1. No evidence of active gastrointestinal hemorrhage. 2. No evidence of aneurysm. 3. Widely patent visceral arteries. 4. Atherosclerotic calcific disease and tortuosity of the aorta and iliac efraín hector. 5. Hepatic cysts. 6. Bilateral renal cysts. 7. Prostatomegaly. 8. Diverticulosis. 9. Cholelithiasis. 10. Postoperative changes of the lumbosacral spine. 11. Severe degenerative osteoarthritis involving the right hip with a small ar ea of aseptic necrosis. 12. Other nonacute findings detailed above. Reading Location: [place] [id number]
[2025-03-12 09:45] LABS: Prothrombin Time (Protime)PT. 67.8 SECONDS (11.7-14.9)
[2025-03-12 09:45] LABS: Anion Gap 12 (7-18); BUN 43 mg/dL (4-19); BUN/Creat Ratio 33.3 RATIO (10-20); Calcium,Total 7.9 mg/dL (7.6-11.0); Carbon Dioxide 20.6 mmol/L (20.0-29.0); Chloride 109 mmol/L (96-106); Estimated Creatinine Clearance 85.11 ml/min (50-250); Glucose 143 mg/dL (70-99); Potassium 3.7 mmol/L (3.5-5.1)
[2025-03-12] MEDS: Pantoprazole Sodium 40 MG in 0.9% Normal Saline (100mL MB+) 100 ML 300 MG IV ×2 (09:59→21:20)
[2025-03-12] MEDS: 0.9% Normal Saline (500mL Bag) 500 ML 1000 ML IV (10:05)
[2025-03-12 10:11] LABS: Partial Thromboplast Time 46.1 Seconds (24.1-36.2)
--- OUTSIDE RECORDS SUMMARY | 2025-03-12 10:16 | XMS RPT_ITS | CCD ---
Author Organization [facility] CliniSymn Care Team Providers Care Inspector Quality Assurance Name Role Phone Terry Turk Primary Care Provider 1( 30) Dr. Gagandeep Barclay Primary Care Provider [...] DO, GAGANDEEP E Primary Care Unavailable VILLATORO ASSISTANT HALL DIRECTOR-RASPBERRY CHECKER, BRENT Brown Attending Sherry vailable BARCLAY DO, GAGANDEEP E Primary Care Unavailable BARCLAY DO, GAGANDEEP E Primary Care Unavailable VILLATORO ASSISTANT HALL DIRECTOR-RASPBERRY CHECKER, BRENT Brown Attending Sherry vailable [facility] BRENT Brown Attending Sherry vailable BARCLAY DO, GAGANDEEP E Primary Care Unavailable BRACLAY DO, GAGANDEEP E Primary Care Unavailable VILLATORO ASSISTANT HALL DIRECTOR-RASPBERRY CHECKER, BRENT Brown Attending Sherry vailable BARCLAY DO, GAGANDEEP E Primary Care Unavailable BARCLAY DO, GAGANDEEP E Attending Unavailable BARCLAY DO, GAGANDEEP E Primary Care Unavailable ANTOHNY FERNÁNDEZ Attending Unavailable BARCLAY DO, GAGANDEEP E [...] BARCLAY DO, GAGANDEEP E Primary Care Unavailable [facility], BRENT Brown Attending Sherry vailable BARCLAY DO, [...] Barclay Primary Care Unavailable Maria Del Carmen, Bandon Attending Unavailable Oleghe, Efewongbe Consulting Unavailable Gagandeep [...] GAGANDEEP BARCLAY DO Primary Care Unavailable RONY ASSISTANT HALL DIRECTOR-RASPBERRY CHECKERSAMANTHA Attending Unavailab le DIGNA ASSISTANT HALL DIRECTOR-RASPBERRY CHECKERAKSHAT Attending Sherry vailable GAGANDEEP BARCLAY DO Primary Care Unavailable GAGANDEEP BARCLAY DO Attending Unavailable GAGANDEEP BARCLAY DO Primary Care Unavailable BARCLAY DO, GAGANDEEP E Primary Care Unavailable BARCLAY DO, GAGANDEEP E Attending Unavailable RONY ASSISTANT HALL DIRECTOR-RASPBERRY CHECKER, SAMANTHA Attending Unavailab le BARCLAY DO, GAGANDEEP [...] BARCLAY DO, GAGANDEEP E Attending Unavailable SHAUNA ASSISTANT HALL DIRECTOR-RASPBERRY CHECKER, BRENT Brown Attending Sherry vailable DENY DO, GAGANDEEP E Primary Care Unavailable BARCLAY DO, GAGANDEEP E Primary Care Unavailable BEN AUGUST MD Attending Unavailable Allergies Allergy Classification Reported Allergen(s) Allergy Type Date of Onset Reaction(s) Facility Contrast Media (1 source) Contrast media Substance Allergy 2 Rash, [facility] Work Phone: Penicillins (antibiotic) (1 source) [facility] Work Phone: pregabalin (1 source) pregabalin Drug Allergy 2 Swelling [facility] Work Phone: (20 sources) Contrast media; Translations: [red dye] Allergy to substance 2 Angioedema, [facility] (7 sources) Penicillins; Translations: [Penicillins] Allergy to substance 2 [facility] (20 sources) pregabalin; Translations: [pregabalin] Drug Allergy 2 [facility] (20 sources) Penicillin; Translations: [penicillins] Drug Allergy [facility] (1 source) pregabalin Drug Allergy 4 [facility] (2 sources) Penicillin; Translations: [penicillins] Drug Allergy [facility] Medications Current Medications Medication Drug Class(es) [...] 1-2 tablets per dose, [facility]: [facility] #[id number], Chronic pain Lumbar postlaminectomy syndrome, 180, cm, [...] 1-2 tablets per dose, Pharmacy: [facility] #[id number], Chronic pain Lumbar postlaminectomy syndrome, 180, cm, [...] day(s), # 120 tab(s), 0 Refill(s), [facility] #[id number], Chronic radicular lumbar pain Chronic pain, 185, [...] pain, # 120 tab(s), 0 Refill(s), [facility]: [facility] #[id number], Lumbar spondylosis Lumbar spinal stenosis, 185, cm, [...] pain, # 120 tab(s), 0 Refill(s), Pharmacy: [facility] #[id number], Lumbar spondylosis Lumbar spinal stenosis, 180, cm, [...] days, # 120 tab(s), 0 Refill(s), Pharmacy: [facility]/pharmacy #[id number], Osteoarthritis, 180.3, cm, 08/20/21 9:49:00 EDT, [...] 01/08/25, # 120 tab(s), 0 Refill(s), [id number], Lumbar postlaminectomy syndrome Chronic radicular lumbar pain, [...] 09/09/24, # 120 tab(s), 0 Refill(s), [id number], Lumbar postlaminectomy syndrome Chronic radicular lumbar pain, [...] 120 tab(s), 0 Refill(s), [facility]: [facility] #[id number], Lumbar postlaminectomy syndrome, 180, cm, 11/06/23 11:28:00 [...] 120 tab(s), 0 Refill(s), [facility]acy: [facility] #[id number], Lumbar postlaminectomy syndrome, 180, cm, 05/24/23 11:48:00 [...] 120 tab(s), 0 Refill(s), [facility]acy: [facility] #[id number], Lumbar postlaminectomy syndrome, 180, cm, 04/19/23 12:15:00 EST, Height, 156.3, kg, 04/19/23 12:15:00 EST, Dosing Weight Start Date: 04/19/23 Stop Date: 05/19/23 Status: Ordered [id number] 200 actuat albuterol 0.09 mg/actuat metered dose inhaler (20 sources) beta2-Adrenergic Agonist Start: 02-20-2020 take 2 puff(s) by inhalation every four hours as needed for wheezing ProAir HFA MDI (90 mcg/inh) inhalation aerosol 2 puff(s), Inhalation, q4h, PRN as needed for wheezing, # 1 EA, 11 Refill(s), Pharmacy: [facility]/pharmacy #[id number], 179, cm, 02/19/20 13:43:00 EST, Height, [...] qDayPC, # 180 tab(s), 0 Refill(s), Pharmacy: [email or web address], 180, cm, 10/04/24 10:49:00 EDT, Height, kg, 10/04/24 10:49:00 EDT, Dosing Weight Start Date: 10/04/24 Status: Ordered Medication Dispense Status: Completed Quantity: 180.0 Unit: tab(s) Total Allowed Fills: 1 Fills Dispensed: 0 Start: 06-09-2024 allopurinol 10 0 mg oral tablet Dose : 200 mg = 2 tab(s), Oral, qDayPC, # 180 tab(s), 0 Refill(s), [facility]acy: [facility] #[id number], 180, cm, 06/03/24 10:49:00 EDT, Height, kg, 06/03/24 10:49:00 EDT, Dosing Weight Start Date: 06/09/24 Status: Ordered Quantity: 180.0 Unit: tab(s) Repeat number: 1 Start: 10-20-2023 allopurinol 10 0 mg oral tablet Dose : 200 mg = 2 tab(s), Oral, qDayPC, # 180 tab(s), 0 Refill(s), Pharmacy: [facility] #[id number], 180, cm, 10/20/23 10:07:00 EDT, Height, kg, 10/20/23 9:57:00 EDT, Dosing Weight Start Date: 10/20/23 Status: Ordered Start: 09-19-2023 allopurinol 10 0 mg oral tablet Dose : 100 mg = 1 tab(s), Oral, qDayPC, # 90 tab(s), 1 Refill(s), [facility]: [facility] #[id number], 180, cm, 09/19/23 11:17:00 EDT, Height, kg, [...] 90 tab(s), 0 Refill(s), [facility]acy: [facility] #[id number], 180, cm, 03/15/23 12:13:00 EST, Height, kg, 03/15/23 12:13:00 EST, Dosing Weight Start Date: 03/17/23 Status: Ordered Start: 12-02-2021 allopurinol 10 0 mg oral tablet Dose : 100 mg = 1 tab(s), Oral, qDayPC, # 90 tab(s), 1 Refill(s), [facility]: [facility] #[id number], 180, cm, 05/24/22 10:57:00 EST, Height, kg, [...] 30 tab(s), 0 Refill(s), [facility]: [facility] #[id number], 180, cm, 10/09/23 11:40:00 EDT, Height, kg, 10/09/23 11:40:00 EDT, Dosing Weight Start Date: 10/09/23 Stop Date: 11/08/23 Status: Ordered amLODIPine 5 mg oral tablet (20 sources) Dihydropyridine Calcium Channel Zac Start: 09-10-2024 End: 10-10-2024 amLODIPine 5 mg oral tablet Dose : 5 mg = 1 tab(s), Oral, qDay, # 100 tab(s), 0 Refill(s), [facility]: [facility], 180, cm, 10/04/24 10:49:00 EDT, Height, [...] 100 tab(s), 0 Refill(s), Pharmacy: [facility] #[id number], 180, cm, 09/19/23 11:17:00 EDT, Height, kg, 09/19/23 11:17:00 EDT, Dosing Weight Start Date: 09/19/23 Status: Ordered Start: 03-16-2023 take 1 tablet by elyse th once daily amLODIPine 5 mg oral tablet See Instructions, TAKE 1 TABLET BY MOUTH EVERY DAY, # 30 tab(s), 0 Refill(s), Pharmacy: [email or web address], 180, cm, 03/15/23 12:13:00 EST, Height, kg, 03/15/23 12:13:00 EST, Dosing Weight Start Date: 03/16/23 Status: Ordered Start: 09-04-2022 take 1 tablet by elyse th once daily amLODIPine 5 mg oral tablet See Instructions, TAKE 1 TABLET BY MOUTH EVERY DAY, # 90 tab(s), 1 Refill(s), Pharmacy: [email or web address], 189.1, cm, 08/25/22 10:51:00 EDT, Height, kg, 08/25/22 10:51:00 EDT, Dosing Weight Start Date: 09/04/22 Status: Ordered Start: 06-21-2021 take 1 tablet by elyse th once daily amLODIPine 5 mg oral tablet See Instructions, TAKE 1 TABLET BY MOUTH EVERY DAY, # 90 tab(s), 1 Refill(s), Pharmacy: [email or web address], 180, cm, 02/28/22 10:42:00 EST, [...] 90 tab(s), 3 Refill(s), [facility]: [facility] #[id number], 189.1, cm, 08/25/22 10:51:00 EDT, Height, kg, [...] qDay, # 100 tab(s), 3 Refill(s), Pharmacy: [email or web address], 180, cm, 10/04/24 10:49:00 EDT, Height, kg, 10/04/24 10:49:00 EDT, Dosing Weight Start Date: 10/04/24 Status: Ordered Medication Dispense Status: Completed Quantity: 100.0 Unit: tab(s) Total Allowed Fills: 4 Fills Dispensed: 0 Start: 07-26-2024 atorvastatin 8 0 mg oral tablet Dose : 80 mg = 1 tab(s), Oral, qDay, # 100 tab(s), 3 Refill(s), [facility]: [facility] #[id number], 180.3, cm, 07/26/24 10:56:00 EDT, Height, kg, 07/26/24 10:56:00 EDT, Dosing Weight Start Date: 07/26/24 Status: Ordered Quantity: 100.0 Unit: tab(s) Repeat number: 4 Start: 03-05-2019 atorvastatin 8 0 mg oral tablet Dose : 80 mg = 1 tab(s), Oral, qDay, # 90 tab(s), 3 Refill(s), [facility]: [facility] #[id number], 180, cm, 05/24/22 10:57:00 EST, Height, kg, 05/24/22 10:57:00 EST, Dosing Weight Start Date: 05/24/22 Status: Ordered cephalexin 500 mg oral capsule (20 sources) Cephalosporin Antibacterial Start: 10-04-2024 cephalexin 500 mg or al capsule Dose : 500 mg = 1 cap(s), Oral, BID, hx of persistant hip infections post-replacement, # 180 cap(s), 1 Refill(s), Pharmacy: [email or web address], 180, cm, 10/04/24 10:49:00 EDT, [...] # 180 cap(s), 1 Refill(s), [facility]: [facility] #[id number], 180, cm, 09/19/23 11:17:00 EDT, Height, 155, kg, 09/19/23 11:17:00 EDT, Dosing Weight Start Date: 09/19/23 Status: Ordered Quantity: 180.0 Unit: cap(s) Repeat number: 2 Start: 05-05-2023 cephalexin 500 mg oral capsule Dose : 500 mg = 1 cap(s), Oral, BID, hx of persistant hip infections post-replacement, # 180 cap(s), 1 Refill(s), Pharmacy: [email or web address], 180, cm, 04/19/23 12:15:00 EST, Height, 156.3, kg, 04/19/23 12:15:00 EST, Dosing Weight Start Date: 05/05/23 Status: Ordered Start: 03-23-2023 cephalexin 500 mg oral capsule Dose : 500 mg = 1 cap(s), Oral, BID, hx of persistant hip infections post-replacement, # 180 cap(s), 1 Refill(s), Pharmacy: [facility] #[id number], 180, cm, 03/22/23 12:03:00 EST, Height, 159, kg, 03/22/23 12:03:00 EST, Dosing Weight Start Date: 03/23/23 Status: Ordered Start: 04-26-2022 cephalexin 500 mg oral capsule Dose : 500 mg = 1 cap(s), Oral, q12h, # 180 cap(s), 1 Refill(s), [facility]: [facility] #[id number], 189.1, cm, 08/25/22 10:51:00 EDT, Height, 160.8, [...] DAY, # 200 tab(s), 1 Refill(s), Pharmacy: [email or web address], 180, cm, 10/04/24 10:49:00 EDT, [...] 200 tab(s), 1 Refill(s), [facility]: [facility] #[id number], 180, cm, 04/09/24 11:05:00 EST, Height, kg, 04/09/24 11:05:00 EST, Dosing Weight Start Date: 04/09/24 Status: Ordered Quantity: 200.0 Unit: tab(s) Repeat number: 2 Start: 09-19-2023 take 1 tablet by elyse th twice daily cloNIDine 0.1 mg oral tablet See Instructions, TAKE 1 TABLET BY MOUTH TWICE A DAY, # 200 tab(s), 0 Refill(s), Pharmacy: [facility] #[id number], 180, cm, 09/19/23 11:17:00 EDT, Height, kg, 09/19/23 11:17:00 EDT, Dosing Weight Start Date: 09/19/23 Status: Ordered Start: 03-16-2023 take 1 tablet by elyse th twice daily cloNIDine 0.1 mg oral tablet See Instructions, TAKE 1 TABLET BY MOUTH TWICE A DAY, # 60 tab(s), 0 Refill(s), Pharmacy: [email or web address], 180, cm, 03/15/23 12:13:00 EST, Height, kg, 03/15/23 12:13:00 EST, Dosing Weight Start Date: 03/16/23 Status: Ordered Start: 09-04-2022 take 1 tablet by elyse twice daily cloNIDine 0.1 mg oral tablet See Instructions, TAKE 1 TABLET BY MOUTH TWICE A DAY, # 180 tab(s), 1 Refill(s), Pharmacy: [email or web address], 189.1, cm, 08/25/22 10:51:00 EDT, Height, kg, 08/25/22 10:51:00 EDT, Dosing Weight Start Date: 09/04/22 Status: Ordered Start: 02-28-2022 take 1 tablet by elyse twice daily cloNIDine 0.1 mg oral tablet See Instructions, TAKE 1 TABLET BY MOUTH TWICE A DAY, # 180 tab(s), 1 Refill(s), Pharmacy: [email or web address], 180, cm, 02/28/22 10:42:00 EST, Height, kg, 02/28/22 10:42:00 EST, Dosing Weight Start Date: 02/28/22 Status: Ordered Start: 03-12-2021 take 1 tablet by elyse twice daily cloNIDine 0.1 mg oral tablet See Instructions, TAKE 1 TABLET BY MOUTH TWICE A DAY, # 180 tab(s), 3 Refill(s), Pharmacy: [facility]/pharmacy #[id number], 179, cm, 12/14/20 11:13:00 EDT, Height, [...] prior to procedure, must have front end driver to and from procedure., # 1 tab(s), 0 Refill(s), Pharmacy: [facility] #[id number], Chronic radicular lumbar pain, 180, cm, 08/24/22 9:48:00 EDT, Height, 161.1 Start Date: 08/24/22 Status: Ordered DME MISCellaneous (12 sources) Start: 10-20-2023 DME MISCellane ous See Instructions, hydrofera blue (should memfoam not be available.), # 50 EA, 0 Refill(s), Pharmacy: [facility] #[id number], Leg wound, left Left leg swelling, 180, [...] care., # 50 EA, 0 Refill(s), Pharmacy: [facility] #[id number], Leg wound, left Left leg swelling, 180, [...] available.), # 50 EA, 0 Refill(s), Pharmacy: [facility] #[id number], Leg wound, left Left leg swelling, 180, [...] # 50 EA, 0 Refill(s), [facility]: [facility] #[id number], Leg wound, left Left leg swelling, 180, [...] # 50 EA, 0 Refill(s), [facility]: [facility] #[id number], Leg wound, left Left leg swelling, 180, cm, 10/20/23 10:07:00 EDT, Height, 156.2, kg, 10/20/23 9:57:00 EDT, Dosing Weight Start Date: 10/20/23 Status: Ordered Start: 10-20-2023 DME MISCellane ous See Instructions, polymem foam for wound care., # 50 EA, 0 Refill(s), [facility]: [facility] #[id number], Leg wound, left Left leg swelling, 180, [...] 0 Refill(s), 11/03/23 10:23:00 AM EDT, Pharmacy: [facility] #[id number], 180, cm, 10/20/23 10:07:00 EDT, Height, 156.2, kg, 10/20/23 9:57:00 EDT, Dosing Weight Start Date: 10/24/23 Stop Date: 11/03/23 Status: Ordered Start: 03-28-2023 End: 04-07-2023 doxycycline hyclate 100 mg o ral capsule Dose : 100 mg = 1 cap(s), Oral, BID, X 10 day(s), # 20 cap(s), 0 Refill(s), 04/07/23 11:44:00 AM EST, Pharmacy: [facility] #[id number], 180.3, cm, 03/28/23 6:32:00 EST, Height, 153.4, kg, 03/28/23 6:32:00 EST, Dosing Weight Start Date: 03/28/23 Stop Date: 04/07/23 Status: Ordered fluticasone propionate 0.05 mg/actuat metered dose nasal spray (20 sources) Corticosteroid Start: 10-04-2024 take 1 dose nasal route once daily in the morning fluticasone 50 mcg/inh NASAL spray Dose = 2 spray(s), Nostril, each, qAM, # 3 EA, 1 Refill(s), Pharmacy: [email or web address], 180, cm, 10/04/24 10:49:00 EDT, Height, kg, 10/04/24 10:49:00 EDT, Dosing Weight Start Date: 10/04/24 Status: Ordered Medication Dispense Status: Completed Quantity: 3.0 Unit: EA Total Allowed Fills: 2 Fills Dispensed: 0 Start: 05-05-2023 take 1 dose nasal ro morongo once daily in the morning fluticasone 50 mcg/inh NASAL spray Dose = 2 spray(s), Nostril, each, qAM, # 16 gram(s), 3 Refill(s), Pharmacy: [email or web address], 180, cm, 04/19/23 12:15:00 EST, Height, kg, 01/31/24 12:15:00 EST, Dosing Weight Start Date: 05/05/23 Status: Ordered Quantity: 16.0 Unit: g Repeat number: 4 Start: 02-08-2022 take 1 dose nasal ro morongo once daily in the morning fluticasone 50 mcg/inh NASAL spray Dose = 2 spray(s), Nostril, each, qAM, # 15.8 mL, 1 Refill(s), Pharmacy: [facility]/pharmacy #[id number], 180, cm, 11/26/21 11:27:00 EDT, Height, kg, 11/26/21 11:27:00 EDT, Dosing Weight Start Date: 02/08/22 Status: Ordered Start: 03-18-2019 take 1 dose nasal ro morongo once daily in the morning fluticasone 50 mcg/inh NASAL spray Dose = 2 spray(s), Nostril, each, qAM, # 15.8 mL, 11 Refill(s), Pharmacy: [facility]/pharmacy #[id number] Start Date: 03/18/19 Status: Ordered Start: [...] use, # 180 EA, 1 Refill(s), Pharmacy: [email or web address], 180, cm, 10/04/24 10:49:00 EDT, [...] use, # 60 EA, 11 Refill(s), Pharmacy: [email or web address], 180, cm, 03/21/23 10:29:00 EST, Height, kg, 03/21/23 10:19:00 EST, Dosing Weight Start Date: 03/21/23 Status: Ordered Quantity: 60.0 Unit: EA Repeat number: 12 Start: 03-04-2021 take 1 dose by mouth twice daily Wixela Inhub 250 mcg-50 mcg inhalation powder Dose = 1 puff(s), Inhalation, BID, rinse mouth and throat after use, # 60 EA, 11 Refill(s), Pharmacy: [facility]/pharmacy #[id number], 179, cm, 12/14/20 11:13:00 EDT, Height, [...] DAY, # 200 tab(s), 1 Refill(s), Pharmacy: [facility], 180, cm, 10/04/24 10:49:00 [...] DAY, # 200 tab(s), 1 Refill(s), [id number], 180, cm, 10/20/23 10:07:00 EDT, Height, kg, 10/20/23 9:57:00 EDT, Dosing Weight Start Date: 10/20/23 Status: Ordered Quantity: 200.0 Unit: tab(s) Repeat number: 2 Start: 09-19-2023 take 1 tablet by elyse th twice daily furosemide 40 mg oral tablet See Instructions, TAKE 1 TABLET BY MOUTH TWICE A DAY, # 200 tab(s), 1 Refill(s), [facility]: [facility] #[id number], 180, cm, 09/19/23 11:17:00 EDT, Height, kg, 09/19/23 11:17:00 EDT, Dosing Weight Start Date: 09/19/23 Status: Ordered Start: 05-05-2023 take 1 tablet by elyse th twice daily furosemide 40 mg oral tablet See Instructions, TAKE 1 TABLET BY MOUTH TWICE A DAY, # 180 tab(s), 1 Refill(s), Pharmacy: [facility], 180, cm, 04/19/23 12:15:00 EST, Height, kg, 04/19/23 12:15:00 EST, Dosing Weight Start Date: 05/05/23 Status: Ordered Start: 01-27-2023 take 1 tablet by elyse th twice daily furosemide 40 mg oral tablet See Instructions, TAKE 1 TABLET BY MOUTH TWICE A DAY, # 180 tab(s), 1 Refill(s), Pharmacy: [facility] #[id number], 185, cm, 01/16/23 12:34:00 EDT, Height, kg, 01/16/23 12:34:00 EDT, Dosing Weight Start Date: 01/27/23 Status: Ordered Start: 06-28-2022 take 1 tablet by elyse twice daily furosemide 40 mg oral tablet See Instructions, TAKE 1 TABLET BY MOUTH TWICE A DAY, # 180 tab(s), 1 Refill(s), Pharmacy: [facility] #[id number], 180, cm, 06/27/22 12:10:00 EDT, Height, kg, [...] BID, # 200 tab(s), 1 Refill(s), Pharmacy: [email or web address], 180, cm, 10/04/24 10:49:00 EDT, Height, kg, 10/04/24 10:49:00 EDT, Dosing Weight Start Date: 10/04/24 Status: Ordered Medication Dispense Status: Completed Quantity: 200.0 Unit: tab(s) Total Allowed Fills: 2 Fills Dispensed: 0 Start: 06-09-2024 hydrALAZINE 50 mg oral tablet Dose : 50 mg = 1 tab(s), Oral, BID, # 200 tab(s), 1 Refill(s), Pharmacy: [facility] #[id number], 180, cm, 06/03/24 10:49:00 EDT, Height, kg, 06/03/24 10:49:00 EDT, Dosing Weight Start Date: 06/09/24 Status: Ordered Quantity: 200.0 Unit: tab(s) Repeat number: 2 Start: 09-19-2023 hydrALAZINE 50 mg oral tablet Dose : 50 mg = 1 tab(s), Oral, BID, # 200 tab(s), 1 Refill(s), Pharmacy: [facility] #[id number], 180, cm, 09/19/23 11:17:00 EDT, Height, kg, 09/19/23 11:17:00 EDT, Dosing Weight Start Date: 09/19/23 Status: Ordered Start: 05-05-2023 hydrALAZINE 50 mg oral tablet Dose : 50 mg = 1 tab(s), Oral, BID, # 180 tab(s), 1 Refill(s), Pharmacy: [email or web address], 180, cm, 04/19/23 12:15:00 EST, Height, kg, 04/19/23 12:15:00 EST, Dosing Weight Start Date: 05/05/23 Status: Ordered Start: 06-21-2021 hydrALAZINE 50 mg oral tablet Dose : 50 mg = 1 tab(s), Oral, BID, # 180 tab(s), 0 Refill(s), Pharmacy: [facility] #[id number], 180, cm, 05/24/22 10:57:00 EST, Height, kg, [...] DAY, # 7 tab(s), 0 Refill(s), Pharmacy: [facility]/pharmacy #[id number], 181.5, cm, 05/18/20 13:10:00 EST, Height, [...] 30 gram(s), 2 Refill(s), Pharmacy: [facility] #[id number], Cream, 180, cm, 10/09/23 11:40:00 EDT, Height, [...] qDay, # 100 tab(s), 1 Refill(s), Pharmacy: [email or web address], 180, cm, 10/04/24 10:49:00 EDT, Height, kg, 10/04/24 10:49:00 EDT, Dosing Weight Start Date: 10/04/24 Status: Ordered Medication Dispense Status: Completed Quantity: 100.0 Unit: tab(s) Total Allowed Fills: 2 Fills Dispensed: 0 Start: 09-19-2023 lisinopril 40 mg oral tablet Dose : 40 mg = 1 tab(s), Oral, qDay, # 100 tab(s), 1 Refill(s), [facility]: [facility] #[id number], 180, cm, 09/19/23 11:17:00 EDT, Height, kg, 09/19/23 11:17:00 EDT, Dosing Weight Start Date: 09/19/23 Status: Ordered Start: 05-05-2023 lisinopril 40 mg oral tablet Dose : 40 mg = 1 tab(s), Oral, qDay, # 90 tab(s), 1 Refill(s), Pharmacy: [email or web address], 180, cm, 04/19/23 12:15:00 EST, Height, kg, 04/19/23 12:15:00 EST, Dosing Weight Start Date: 05/05/23 Status: Ordered Start: 01-11-2023 lisinopril 40 mg oral tablet Dose : 40 mg = 1 tab(s), Oral, qDay, # 90 tab(s), 1 Refill(s), Pharmacy: [facility] #[id number], 185, cm, 01/09/23 11:29:00 EDT, Height, kg, 01/09/23 11:29:00 EDT, Dosing Weight Start Date: 01/11/23 Status: Ordered Start: 07-11-2022 lisinopril 40 mg oral tablet Dose : 40 mg = 1 tab(s), Oral, qDay, # 90 tab(s), 1 Refill(s), Pharmacy: [facility] #[id number], 180, cm, 06/27/22 12:10:00 EDT, Height, kg, [...] qDay, # 30 tab(s), 1 Refill(s), Pharmacy: [facility]/pharmacy #[id number], 180, cm, 10/04/24 10:49:00 EDT, Height, [...] labeling, # 300 lozenge(s), 0 Refill(s), Pharmacy: [facility] #[id number], [facility], 180.3, cm, 07/26/24 10:56:00 EDT, [...] qDay, # 30 patch(es), 0 Refill(s), Pharmacy: [facility] #[id number], [facility], 180.3, cm, 07/26/24 10:56:00 EDT, [...] food, # 100 tab(s), 1 Refill(s), Pharmacy: [email or web address], 180, cm, 10/04/24 10:49:00 EDT, [...] 90 tab(s), 0 Refill(s), Pharmacy: [facility] #[id number], 70.9, cm, 03/22/24 11:51:00 EST, Height, kg, 03/22/24 11:51:00 EST, Dosing Weight Start Date: 03/30/24 Status: Ordered Quantity: 90.0 Unit: tab(s) Repeat number: 1 Start: 09-19-2023 potassium chlo ride 20 mEq oral tablet, extended release Dose : 20 mEq = 1 tab(s), Oral, qDay, Take with food, # 90 tab(s), 1 Refill(s), Pharmacy: [facility] #[id number], 180, cm, 09/19/23 11:17:00 EDT, Height, kg, 09/19/23 11:17:00 EDT, Dosing Weight Start Date: 09/19/23 Status: Ordered Start: 05-05-2023 potassium chlo ride 20 mEq oral tablet, extended release Dose : 20 mEq = 1 tab(s), Oral, qDay, Take with food, # 90 tab(s), 0 Refill(s), Pharmacy: [facility] #[id number], 180, cm, 04/19/23 12:15:00 EST, Height, kg, [...] food, # 90 tab(s), 4 Refill(s), Pharmacy: [facility]/pharmacy #[id number], 179, cm, 02/19/20 13:43:00 EST, Height, [...] dysfunction, # 60 tab(s), 5 Refill(s), Pharmacy: [facility]/pharmacy #[id number], 180, cm, 10/04/24 10:49:00 EDT, Height, [...] 60 tab(s), 2 Refill(s), Pharmacy: [facility] #[id number], Erectile dysfunction, 180, cm, 10/20/23 10:07:00 EDT, [...] (IMDUR), # 60 tab(s), 2 Refill(s), Pharmacy: [facility] #[id number], Erectile dysfunction, 180, cm, 09/19/23 11:17:00 EDT, Height, kg, 09/19/23 11:17:00 EDT, Dosing Weight Start Date: 09/19/23 Status: Ordered Start: 03-07-2023 sildenafil 20 mg oral tablet Dose : 60 mg = 3 tab(s), Oral, Daily, PRN erectile dysfunction, DO NOT TAKE SAME DAY IF USING ISOSORBID MONONITRATE (IMDUR), # 60 tab(s), 2 Refill(s), Pharmacy: [facility] #[id number], Erectile dysfunction, 180, cm, 02/28/23 10:52:00 EST, Height, kg, 02/28/23 10:52:00 EST, Dosing Weight Start Date: 03/07/23 Status: Ordered Start: 11-08-2022 sildenafil 20 mg oral tablet Dose : 60 mg = 3 tab(s), Oral, Daily, PRN erectile dysfunction, DO NOT TAKE SAME DAY IF USING ISOSORBID MONONITRATE (IMDUR), # 60 tab(s), 2 Refill(s), Pharmacy: [facility] #[id number], Erectile dysfunction, 185, cm, 10/24/22 11:41:00 EDT, Height, kg, 10/24/22 11:41:00 EDT, Dosing Weight Start Date: 11/08/22 Status: Ordered Start: 11-26-2021 sildenafil 20 mg oral tablet Dose : 60 mg = 3 tab(s), Oral, Daily, PRN erectile dysfunction, DO NOT TAKE SAME DAY IF USING ISOSORBID MONONITRATE (IMDUR), # 60 tab(s), 2 Refill(s), Pharmacy: [facility] #[id number], Erectile dysfunction, 180, cm, 02/28/22 10:42:00 EST, [...] Insomnia, # 100 tab(s), 1 Refill(s), Pharmacy: [email or web address], 180, cm, 10/04/24 10:49:00 EDT, Height, kg, 10/04/24 10:49:00 EDT, Dosing Weight Start Date: 10/04/24 Status: Ordered Medication Dispense Status: Completed Quantity: 100.0 Unit: tab(s) Total Allowed Fills: 2 Fills Dispensed: 0 Start: 07-26-2024 traZODone 50 m g oral tablet Dose : 50 mg = 1 tab(s), Oral, qHS, PRN Sleep / Insomnia, # 100 tab(s), 1 Refill(s), Pharmacy: [facility] #[id number], 180.3, cm, 07/26/24 10:56:00 EDT, Height, kg, 07/26/24 10:56:00 EDT, Dosing Weight Start Date: 07/26/24 Status: Ordered Quantity: 100.0 Unit: tab(s) Repeat number: 2 Start: 09-19-2023 traZODone 50 m g oral tablet Dose : 50 mg = 1 tab(s), Oral, qHS, PRN Sleep / Insomnia, # 90 tab(s), 1 Refill(s), Pharmacy: [facility] #[id number], 180, cm, 09/19/23 11:17:00 EDT, Height, kg, 09/19/23 11:17:00 EDT, Dosing Weight Start Date: 09/19/23 Status: Ordered Start: 05-05-2023 traZODone 50 m g oral tablet Dose : 50 mg = 1 tab(s), Oral, qHS, PRN Sleep / Insomnia, # 90 tab(s), 1 Refill(s), Pharmacy: [email or web address], 180, cm, 04/19/23 12:15:00 EST, Height, kg, 04/19/23 12:15:00 EST, Dosing Weight Start Date: 05/05/23 Status: Ordered Start: 06-28-2022 traZODone 50 m g oral tablet Dose : 50 mg = 1 tab(s), Oral, qHS, PRN Sleep / Insomnia, # 90 tab(s), 1 Refill(s), Pharmacy: [facility] #[id number], 185, cm, 10/03/22 10:23:00 EDT, Height, kg, [...] Daily, # 100 cap(s), 3 Refill(s), Pharmacy: [email or web address], [facility], 180, cm, [...] Daily, # 100 cap(s), 3 Refill(s), Pharmacy: [facility] #[id number], [facility], 180, cm, 06/03/24 10:49:00 EDT, Height, kg, 06/03/24 10:49:00 EDT, Dosing Weight Start Date: 06/09/24 Status: Ordered Quantity: 100.0 Unit: cap(s) Repeat number: 4 Indications: Encounter for general adult medical examination without abnormal findings; Start: 09-19-2023 Vitamin D3 50 mcg (2000 intl units) oral capsule Dose : 2,000 unit(s) = 1 cap(s), Oral, Daily, # 100 cap(s), 1 Refill(s), Pharmacy: [facility] #[id number], [facility], 180, cm, 09/19/23 11:17:00 EDT, Height, kg, 09/19/23 11:17:00 EDT, Dosing Weight Start Date: 09/19/23 Status: Ordered Start: 05-05-2023 Vitamin D3 50 mcg (2000 intl units) oral capsule Dose : 2,000 unit(s) = 1 cap(s), Oral, Daily, # 100 cap(s), 1 Refill(s), Pharmacy: [email or web address], [facility], 180, cm, 04/19/23 12:15:00 EST, Height, kg, 04/19/23 12:15:00 EST, Dosing Weight Start Date: 05/05/23 Status: Ordered Start: 10-04-2022 Vitamin D3 50 mcg (2000 intl units) oral capsule Dose : 2,000 unit(s) = 1 cap(s), Oral, Daily, # 100 cap(s), 3 Refill(s), Pharmacy: [facility] #[id number], [facility], 185, cm, 10/03/22 10:23:00 EDT, Height, kg, 10/03/22 10:23:00 EDT, Dosing Weight Start Date: 10/04/22 Status: Ordered Start: 02-28-2022 Vitamin D3 50 mcg (2000 intl units) oral capsule Dose : 2,000 unit(s) = 1 cap(s), Oral, Daily, # 100 cap(s), 3 Refill(s), Pharmacy: [email or web address], [facility], 180, cm, [...] 180 tab(s), 3 Refill(s), Pharmacy: [facility] #[id number], 180, cm, 07/10/24 9:48:00 EDT, Height, kg, 07/10/24 9:48:00 EDT, Dosing Weight Start Date: 07/22/24 Status: Ordered Medication Dispense Status: Completed Quantity: 180.0 Unit: tab(s) Total Allowed Fills: 4 Fills Dispensed: 0 Start: 10-18-2023 warfarin 4 mg oral tablet See Instructions, 6mg Sun, Mon, Mon, , Sat 8mg Mon, Mon, # 180 tab(s), 0 Refill(s), Pharmacy: [facility] #[id number], 180, cm, 10/09/23 11:40:00 EDT, Height, kg, [...] 150 tab(s), 3 Refill(s), Pharmacy: [facility] #[id number], 185, cm, 09/14/22 12:50:00 EDT, Height Start [...] BID, # 180 tab(s), 1 Refill(s), Pharmacy: [email or web address], 189.1, cm, 08/25/22 10:51:00 EDT, Height, kg, 08/25/22 10:51:00 EDT, Dosing Weight Start Date: 09/04/22 Status: Ordered Start: 02-28-2022 carvedilol 6.2 5 mg oral tablet Dose : 6.25 mg = 1 tab(s), Oral, BID, # 180 tab(s), 1 Refill(s), Pharmacy: [email or web address], 180, cm, 02/28/22 10:42:00 EST, Height, kg, 02/28/22 10:42:00 EST, Dosing Weight Start Date: 02/28/22 Status: Ordered Start: 03-05-2019 End: 02-19-2020 carvedilol 6.25 mg oral tabl et Dose : 6.25 mg = 1 tab(s), Oral, BID, # 180 tab(s), 1 Refill(s), Pharmacy: [email or web address], 180, cm, 02/28/22 10:42:00 EST, [...] once daily prednisone 10mg tab (TAPER) Taper 82-64-33-10-5 mg, Oral, Daily, Take 4 tabs daily x 5days, then 3 tabs daily x 3days, then 2 tabs daily x 3days,then 1 tab daily x 3days,then 1/2 tab daily x 4 days, # 40 tab(s), 0 Refill(s), Pharmacy: [facility] #[id number], 180, cm, 07/10/24 9:48:00 EDT, Height, kg, [...] once daily prednisone 10mg tab (TAPER) Taper 39-06-55-10-5 mg, Oral, Daily, Take 4 tabs daily x 5days, then 3 tabs daily x 3days, then 2 tabs daily x 3days,then 1 tab daily x 3days,then 1/2 tab daily x 4 days, # 40 tab(s), 0 Refill(s), Pharmacy: [facility] #[id number], 180, cm, 04/19/23 12:15:00 EST, Height, kg, [...] once daily prednisone 10mg tab (TAPER) Taper 34-07-04-10-5 mg, Oral, Daily, Take 4 tabs daily x 5days, then 3 tabs daily x 3days, then 2 tabs daily x 3days,then 1 tab daily x 3days,then 1/2 tab daily x 4 days, # 40 tab(s), 0 Refill(s), Pharmacy: [facility] #[id number], Gout, 180, cm, 08/01/22 9:29:00 EDT, Height, [...] once daily prednisone 10mg tab (TAPER) Taper 79-41-20-10-5 mg, Oral, Daily, Take 4 tabs daily [...] 180 mL, 2 Refill(s), Pharmacy: [facility] #[id number], 180, cm, 12/11/23 11:56:00 EDT, Height, kg, [...] 180 mL, 2 Refill(s), [facility]: [facility] #[id number], 180, cm, 02/28/23 10:52:00 EST, Height, kg, 02/28/23 10:52:00 EST, Dosing Weight Start Date: 03/07/23 Stop Date: 06/05/23 Status: Ordered Start: 10-28-2022 End: 01-26-2023 take 1 dose by mouth four times daily promethazine 6.25 mg/5 mL oral syrup Dose : 6.25 mg = 5 mL, Oral, QID, NO RED DYE! Grape flavor ok, # 180 mL, 2 Refill(s), Pharmacy: [facility] #[id number], 185, cm, 10/24/22 11:41:00 EDT, Height, kg, 10/24/22 11:41:00 EDT, Dosing Weight Start Date: 10/28/22 Stop Date: 01/26/23 Status: Ordered Start: 07-11-2022 End: 09-09-2022 take 1 dose by mouth four times daily promethazine 6.25 mg/5 mL oral syrup Dose : 6.25 mg = 5 mL, Oral, QID, NO RED DYE! Grape flavor ok, # 180 mL, 1 Refill(s), [facility]acy: [facility] #[id number], 180, cm, 06/27/22 12:10:00 EDT, Height, kg, 06/27/22 12:10:00 EDT, Dosing Weight Start Date: 07/11/22 Stop Date: 09/09/22 Status: Ordered Start: 12-03-2021 End: 02-01-2022 take 1 dose by mouth four times daily promethazine 6.25 mg/5 mL oral syrup Dose : 6.25 mg = 5 mL, Oral, QID, # 180 mL, 1 Refill(s), Pharmacy: [facility]/pharmacy #[id number], 180, cm, 11/26/21 11:27:00 EDT, Height Start Date: 12/03/21 Stop Date: 02/01/22 Status: Ordered sotalol hydrochloride 80 mg oral tablet (20 sources) Antiarrhythmic Start: 09-10-2024 End: 11-03-2024 sotalol 80 mg oral tablet Dose : 80 mg = 1 tab(s), Oral, BID, # 200 tab(s), 0 Refill(s), Pharmacy: [email or web address], 180, cm, 10/04/24 10:49:00 EDT, Height, kg, 10/04/24 10:49:00 EDT, Dosing Weight Start Date: 10/04/24 Stop Date: 11/03/24 Status: Ordered Medication Dispense Status: Completed Quantity: 200.0 Unit: tab(s) Total Allowed Fills: 1 Fills Dispensed: 0 Start: 09-19-2023 sotalol 80 mg oral tablet Dose : 80 mg = 1 tab(s), Oral, BID, # 180 tab(s), 1 Refill(s), [facility]: [facility] #[id number], 180, cm, 09/19/23 11:17:00 EDT, Height, kg, 09/19/23 11:17:00 EDT, Dosing Weight Start Date: 09/19/23 Status: Ordered Start: 05-05-2023 sotalol 80 mg oral tablet Dose : 80 mg = 1 tab(s), Oral, BID, # 180 tab(s), 1 Refill(s), Pharmacy: [email or web address], 180, cm, 04/19/23 12:15:00 EST, Height, kg, 04/19/23 12:15:00 EST, Dosing Weight Start Date: 05/05/23 Status: Ordered Start: 03-16-2023 sotalol 80 mg oral tablet Dose : 80 mg = 1 tab(s), Oral, BID, # 60 tab(s), 0 Refill(s), Pharmacy: [email or web address], 180, cm, 03/15/23 12:13:00 EST, Height, kg, 03/15/23 12:13:00 EST, Dosing Weight Start Date: 03/16/23 Status: Ordered Start: 09-04-2022 sotalol 80 mg oral tablet Dose : 80 mg = 1 tab(s), Oral, BID, # 180 tab(s), 1 Refill(s), Pharmacy: [email or web address], 189.1, cm, 08/25/22 10:51:00 EDT, Height, kg, 08/25/22 10:51:00 EDT, Dosing Weight Start Date: 09/04/22 Status: Ordered Start: 09-27-2018 sotalol 80 mg oral tablet Dose : 80 mg = 1 tab(s), Oral, BID, # 180 tab(s), 1 Refill(s), Pharmacy: [email or web address], 180, cm, 02/28/22 10:42:00 EST, [...] sources) Long-term current use of anticoagulant; Translations: [spareribs trimmer (current) use of anticoagulants] Onset: 08-08-1911-26-2021 Episodic Other aftercare (3 sources) spareribs trimmer (current) use of anticoagulants; Translations: [residential (current) use of anticoagulants] Onset: 02-28-20 Episodic Other aftercare (1 source) Other oracle reports developer (current) drug therapy; Translations: [Other oracle reports developer (current) drug therapy] Onset: 01-11-20 Episodic Other [...] not reported on this accession number. Normal [facility] APOBon 09-26-2024 Apolipoprotein B [Mass/Vol] 68 mg/dL Normal <90 [facility] Comment on above: Result Comment: Katherine liz < 90 Borderline High 90 - 99 High 100 - 130 Very High >130 ASCVD RISK THERAPEUTIC TARGET CATEGORY APO B (mg/dL) Very High Risk <80 (if extreme risk <70) High Risk <90 Moderate Risk <90 Performed At: [facility] [id number] Noah Fernández MD Ph:[phone] Performed By: #### P BNP, GFR, CMP, VIDH, URIC, [id number], LIPID ####[address] [place], [place] [address] .GFRon 09-23-2024 Estimated Glomerular Filtration Rate 77 ml/min/1.73sqm Normal [facility] Comment on above: Result Comment: Stages of [...] #### P BNP, GFR, CMP, VIDH, URIC, [id number], LIPID ####[address] [place], [place] [address] CMPon 09-23-2024 Albumin Level 3.3 G/dL Low 3.4-4.8 [facility] Comment on above: Performed By: #### P BNP, GFR, CMP, VIDH, URIC, [id number], LIPID ####[address] [place], [place] [address] Albumin/Globulin [Mass ratio] 0.8 {ratio} Low 1.1-2.5 [facility] Comment on above: Performed By: #### P BNP, GFR, CMP, VIDH, URIC, [id number], LIPID ####[facility] [address] [place], [place] [address] ALP [Catalytic activity/Vol] 85 U/L Normal 40-135 [facility] Comment on above: Performed By: #### P BNP, GFR, CMP, VIDH, URIC, [id number], LIPID ####[facility] [address] [place], [place] [address] ALT [Catalytic activity/Vol] 26 U/L Normal 16-63 [facility] Comment on above: Performed By: #### P BNP, GFR, CMP, VIDH, URIC, [id number], LIPID ####[facility] [place], [place] [address] AST [Catalytic activity/Vol] 20 U/L Normal 10-40 [facility] Comment on above: Performed By: #### P BNP, GFR, CMP, VIDH, URIC, [id number], LIPID ####[address] [place], [place] [address] Bili Total 0.8 mg/dL Normal 0.2-1.0 [facility] Comment on above: Result Comment: Use of this assay is not recommended for patients undergoing treatment with eltrombopag due to the potential for falsely elevated results. Performed By: #### P BNP, GFR, CMP, VIDH, URIC, [id number], LIPID ####[address] [place], [place] [address] BUN/Creatinine Ratio 15 ratio Normal 7-27 [facility] Comment on above: Performed By: #### P BNP, GFR, CMP, VIDH, URIC, [id number], LIPID ####[address] [place], [place] [address] Calcium [Mass/Vol] 9.0 mg/dL Normal 8.4-10.2 [facility] Comment on above: Performed By: #### P BNP, GFR, CMP, VIDH, URIC, [id number], LIPID ####[address] [place], [place] [address] Chloride [Moles/Vol] 106 mmol/L Normal 98-107 [facility] Comment on above: Performed By: #### P BNP, GFR, CMP, VIDH, URIC, [id number], LIPID ####[address] [address] CO2 [Moles/Vol] 25 mmol/L Normal 23-31 [facility] Comment on above: Performed By: #### P BNP, GFR, CMP, VIDH, URIC, 705585, LIPID ####[address] [place], [place] [address] Creatinine [Mass/Vol] 1.07 mg/dL Normal 0.67-1.17 [facility] Comment on above: Performed By: #### P BNP, GFR, CMP, VIDH, URIC, 015341, LIPID ####[address] [place], [place] [address] Electrolyte Balance 12.0 mEq/L Normal 4.0-15.0 [facility] Comment on above: Performed By: #### P BNP, GFR, CMP, VIDH, URIC, 253491, LIPID ####[address] [place], [place] [address] Globulin 4.1 G/dL Normal 2.7-4.4 [facility] Comment on above: Performed By: #### P BNP, GFR, CMP, VIDH, URIC, 658074, LIPID ####[address] [place], [place] [address] Glucose [Mass/Vol] 133 mg/dL High 80-115 [facility] Comment on above: Performed By: #### P BNP, GFR, CMP, VIDH, URIC, 035739, LIPID ####[address] [address] Potassium [Moles/Vol] 3.6 mmol/L Normal 3.5-5.1 [facility] Comment on above: Performed By: #### P BNP, GFR, CMP, VIDH, URIC, 505626, LIPID ####[address] [place], [place] [address] Sodium [Moles/Vol] 143 mmol/L Normal 136-145 [facility] Comment on above: Performed By: #### P BNP, GFR, CMP, VIDH, URIC, 734237, LIPID ####[address] [address] Total Protein 7.4 G/dL Normal 6.4-8.2 [facility] Comment on above: Performed By: #### P BNP, GFR, CMP, VIDH, URIC, 868316, LIPID ####[address] [place], [place] [address] Urea nitrogen [Mass/Vol] 16 mg/dL Normal 7-18 [facility] Comment on above: Performed By: #### P BNP, GFR, CMP, VIDH, URIC, 240682, LIPID ####[address] [place], [place] [address] LABORATORYOrdered By: SYSTEM SYSTEM on 09-23-2024 25-hydroxyvitamin [...] 09-23-2024 Cholesterol [Mass/Vol] 137 mg/dL Normal 0-200 [facility] Comment on above: Result Comment: Chol esterol Reference Interval: Less than 200 Desirable 200-239 Borderline high risk 240 and above High risk Performed By: #### P BNP, GFR, CMP, VIDH, URIC, 195617, LIPID ####[address] [place], [place] [address] Cholesterol in HDL [Mass/Vol] 54 mg/dL Normal 40-60 [facility] Comment on above: Performed By: #### P BNP, GFR, CMP, VIDH, URIC, 578005, LIPID ####[address] [place], [place] [address] Cholesterol in LDL [Mass/Vol] 73 mg/dL Normal 0-130 [facility] Comment on above: Performed By: #### P BNP, GFR, CMP, VIDH, URIC, 157785, LIPID ####[address] [address] Triglyceride [Mass/Vol] 50 mg/dL Normal 0-150 [facility] Comment on above: Result Comment: Trig lyceride Reference Interval: Less than 150 Normal 150-199 Borderline high risk 200-499 High risk 500 or higher Very high risk Performed By: #### P BNP, GFR, CMP, VIDH, URIC, 705047, LIPID ####[address] [address] PBNPon 09-23-2024 Natriuretic peptide B (Bld) [Mass/Vol] 244 pg/mL High 0-125 [facility] Comment on above: Result Comment: NT-p roBNP results of less than 300 pg/mL effectively rules out acute congestive heart failure with 99% negative predictive value. Performed By: #### P BNP, GFR, CMP, VIDH, URIC, 766564, LIPID ####[address] [place], [place] [address] URICon 09-23-2024 Uric Acid Lvl 6.2 mg/dL Normal 3.5-7.2 [facility] Comment on above: Performed By: #### P BNP, GFR, CMP, VIDH, URIC, 408765, LIPID ####[address] [place], [place] [address] VIDHon 09-23-2024 Vit. D 25-Hydroxy 50.6 ng/mL Normal [facility] Comment on above: Result Comment: Inte rpretive Values Based on Total 25([place]) Vitamin D: Deficient <20 ng/mL Insufficient 20 - <30 ng/mL Sufficient 30-100 ng/mL Performed By: #### P BNP, GFR, CMP, VIDH, URIC, 763095, LIPID ####[facility] [place], [place] [address] PMDSon 08-15-2024 ToxAssure 13 Summary FINAL Normal [facility] Comment on above: Result Comment: ==== [...] consultation, please call . ==== Performed At: [facility] [address] [place] [id number] Stevie Dupree [facility] Ph:[phone] Performed By: #### 7 [id number] #### [place] [address] XR FLUORO GUIDANCE FOR THERA PY INJECTIONon 06-21-2024 XR FLUORO GUIDANCE FOR THERAPY INJECTION ORIGINAL Images acquired, not reported on this accession number. Normal [facility] APOBon 04-20-2024 Apolipoprotein B [Mass/Vol] 130 mg/dL High <90 [facility] Comment on above: Result Comment: Katherine rable < 90 Borderline High 90 - 99 High 100 - 130 Very High >130 ASCVD RISK THERAPEUTIC TARGET CATEGORY APO B (mg/dL) Very High Risk <80 (if extreme risk <70) High Risk <90 Moderate Risk <90 Performed At: [facility] [id number] Noah Fernández MD Ph:[phone] Performed By: #### 1 [address] ####[address] [place], [place] [address] APOBon 04-18-2024 Apolipoprotein B [Mass/Vol] Not performed Normal [facility] Comment on above: Result Comment: Test not [...] Risk <90 Moderate Risk <90 [facility]: [facility] [address] [place] [id number] Noah Fernández MD Ph:[phone] Performed By: #### T SHR, LIPID, PSA, [id number], URIC, VIDH, GFR, 451054, CMP ####[address] [place], [place] [address] .Auto Diffon 04-15-2024 Basophil, Absolute 0.1 10 3/mcL Normal 0.0-0.2 [facility] Comment on above: Performed By: #### C BC, A1C, ANEU, ADIFF #### [address] [place], [place] [address] Basophils/100 WBC (Bld) 1.2 % Normal 0.0-2.5 [facility] Comment on above: Performed By: #### C BC, A1C, ANEU, ADIFF #### [address] [address] Eosinophil, Absolute 0.3 10 3/mcL Normal 0.0-0.7 [facility] Comment on above: Performed By: #### C BC, A1C, ANEU, ADIFF #### [address] [address] Eosinophils/100 WBC (Bld) 4.8 % Normal 0.0-7.0 [facility] Comment on above: Performed By: #### C BC, A1C, ANEU, ADIFF #### [address] [address] Lymphocyte, Absolute 1.9 10 3/mcL Normal 0.9-4.3 [facility] Comment on above: Performed By: #### C BC, A1C, ANEU, ADIFF #### [address] [address] Lymphocytes/100 WBC (Bld) 28.3 % Normal 20.0-40.0 [facility] Comment on above: Performed By: #### C BC, A1C, ANEU, ADIFF #### [address] [address] Monocyte, Absolute 0.8 10 3/mcL Normal 0.1-1.4 [facility] Comment on above: Performed By: #### C BC, A1C, ANEU, ADIFF #### [address] [address] Monocytes/100 WBC (Bld) 12.7 % Normal 2.0-13.0 [facility] Comment on above: Performed By: #### C BC, A1C, ANEU, ADIFF #### [address] [address] Neutrophils/100 WBC (Bld) 53.0 % Normal 50.0-75.0 [facility] Comment on above: Performed By: #### C BC, A1C, ANEU, ADIFF #### [address] [address] .NEUABSon 04-15-2024 Neutrophil, Absolute 3.5 10 3/mcL Normal 2.3-8.1 [facility] Comment on above: Performed By: #### C BC, A1C, ANEU, ADIFF #### [address] [address] A1Con 04-15-2024 Glucose [Mass/Vol] 114 mg/dL Normal [facility] Comment on above: Result Comment: Linda mated Average Glucose calculated by equation ((28.7xA1C)-46.7) Estimated average glucose (eAG) is a calculated value from Hemoglobin A1C and is patient intake representative of the average blood glucose level in the last 2-3 month period. Normal range: less than 114 mg/dL Performed By: #### C BC, A1C, ANEU, ADIFF #### [place] [address] HbA1c (Bld) [Mass fraction] 5.6 % Normal 4.3-6.4 [facility] Comment on above: Performed By: #### C BC, A1C, ANEU, ADIFF #### [place] [address] CBCon 04-15-2024 Erythrocyte distribution width (RBC) [Ratio] 16.9 % High 11.5-15.5 [facility] Comment on above: Performed By: #### C BC, A1C, ANEU, ADIFF #### [place] [address] Hematocrit (Bld) [Volume fraction] 49.4 % Normal 40.0-52.0 [facility] Comment on above: Performed By: #### C BC, A1C, ANEU, ADIFF #### [place] [address] Hgb 15.7 G/dL Normal 13.0-17.5 [facility] Comment on above: Performed By: #### C BC, A1C, ANEU, ADIFF #### [place] [address] MCH (RBC) [Entitic mass] 27.0 pg Normal 27.0-33.0 [facility] Comment on above: Performed By: #### C BC, A1C, ANEU, ADIFF #### [place] [address] MCHC 31.7 G/dL Low 32.0-36.0 [facility] Comment on above: Performed By: #### C BC, A1C, ANEU, ADIFF #### [place] [address] MCV (RBC) [Entitic vol] 85.3 fL Normal 81.0-100.0 [facility] Comment on above: Performed By: #### C BC, A1C, ANEU, ADIFF #### [place] [address] Platelet 168 10 3/mcL Normal 150-450 [facility] Comment on above: Performed By: #### C BC, A1C, ANEU, ADIFF #### [place] [address] Platelet mean volume (Bld) [Entitic vol] 9.5 fL Normal 6.4-10.5 [facility] Comment on above: Performed By: #### C BC, A1C, ANEU, ADIFF #### [place] [address] RBC 5.79 10 6/mcL Normal 4.50-6.00 [facility] Comment on above: Performed By: #### C BC, A1C, ANEU, ADIFF #### [place] [address] WBC 6.6 10 3/mcL Normal 4.5-10.8 [facility] Comment on above: Performed By: #### C BC, A1C, ANEU, ADIFF #### [place] [address] LABORATORYOrdered By: SYSTEM SYSTEM on 04-15-2024 Basophils [...] calculated value from Hemoglobin A1C and is patient intake representative of the average blood glucose level [...] Lipoprotein a [Moles/Vol] 296.1 nmol/L High <75.0 [facility] Comment on above: Result Comment: Resu lts confirmed on dilution. Note: Values greater than or equal to 75.0 nmol/L may indicate an independent risk factor for CHD, but must be evaluated with caution when applied to non- populations due to the influence of genetic factors on Lp(a) across ethnicities. Performed At: [facility] [id number] Carmel Manzano PhD Ph:[phone] Performed By: #### T SHR, LIPID, PSA, [id number], URIC, VIDH, GFR, [id number], CMP ####[facility] [place] [place] [address] XR HIP 2-3 VIEWS RIGHTon XR HIP [...] 04/12/2024 9:42:11 AM Ordering Provider: SAMANTHA Rodríguez [facility] .GFRon 04-11-2024 GFR 66 ml/min/1.73sqm Normal [facility] Comment on above: Result Comment: GFR Population [...] Performed By: #### T SHR, LIPID, PSA, [id number], URIC, VIDH, GFR, [id number], CMP ####[address] [place], [place] [address] GFR Non- 54 ml/min/1.73sqm Normal [facility] Comment on above: Result Comment: GFR Population [...] Performed By: #### T SHR, LIPID, PSA, [id number], URIC, VIDH, GFR, [id number], CMP ####[address] [place], [place] [address] CMPon 04-11-2024 Albumin Level 3.8 G/dL Normal 3.4-4.8 [facility] Comment on above: Performed By: #### T SHR, LIPID, PSA, [id number], URIC, VIDH, GFR, [id number], CMP #### [place] [address] Albumin/Globulin [Mass ratio] 1.0 {ratio} Low 1.1-2.5 [facility] Comment on above: Performed By: #### T SHR, LIPID, PSA, [id number], URIC, VIDH, GFR, [id number], CMP #### [place] [address] ALP [Catalytic activity/Vol] 96 U/L Normal 40-135 [facility] Comment on above: Performed By: #### T SHR, LIPID, PSA, [id number], URIC, VIDH, GFR, [id number], CMP #### [place] [address] ALT [Catalytic activity/Vol] 17 U/L Normal 16-63 [facility] Comment on above: Performed By: #### T SHR, LIPID, PSA, [id number], URIC, VIDH, GFR, [id number], CMP #### [place] [address] AST [Catalytic activity/Vol] 17 U/L Normal 10-40 [facility] Comment on above: Performed By: #### T SHR, LIPID, PSA, [id number], URIC, VIDH, GFR, [id number], CMP #### [place] [address] Bili Total 0.5 mg/dL Normal 0.2-1.0 [facility] Comment on above: Result Comment: Use of this assay is not recommended for patients undergoing treatment with eltrombopag due to the potential for falsely elevated results. Performed By: #### T SHR, LIPID, PSA, [id number], URIC, VIDH, GFR, [id number], CMP #### [place] [address] BUN/Creatinine Ratio 15 ratio Normal 7-27 [facility] Comment on above: Performed By: #### T SHR, LIPID, PSA, [id number], URIC, VIDH, GFR, [id number], CMP #### [place] [address] Calcium [Mass/Vol] 9.3 mg/dL Normal 8.4-10.2 [facility] Comment on above: Performed By: #### T SHR, LIPID, PSA, [id number], URIC, VIDH, GFR, 292871, CMP #### [address] [address] Chloride [Moles/Vol] 100 mmol/L Normal 98-107 [facility] Comment on above: Performed By: #### T SHR, LIPID, PSA, [id number], URIC, VIDH, GFR, 467181, CMP #### [address] [address] CO2 [Moles/Vol] 30 mmol/L Normal 23-31 [facility] Comment on above: Performed By: #### T SHR, LIPID, PSA, [id number], URIC, VIDH, GFR, 654788, CMP #### [place] [address] Creatinine [Mass/Vol] 1.33 mg/dL High 0.70-1.30 [facility] Comment on above: Result Comment: Test ing performed on Siemens Dimension EXL analyzer using a modified kinetic Feliz technique. Performed By: #### T SHR, LIPID, PSA, [id number], URIC, VIDH, GFR, 464238, CMP #### [address] [address] Electrolyte Balance 7.0 mEq/L Normal 4.0-15.0 [facility] Comment on above: Performed By: #### T SHR, LIPID, PSA, [id number], URIC, VIDH, GFR, [id number], CMP #### [address] [address] Globulin 4.0 G/dL Normal [facility] Comment on above: Performed By: #### T SHR, LIPID, PSA, [id number], URIC, VIDH, GFR, 278311, CMP #### [place] [address] Glucose [Mass/Vol] 74 mg/dL Low 80-115 [facility] Comment on above: Performed By: #### T SHR, LIPID, PSA, [id number], URIC, VIDH, GFR, 015232, CMP #### [address] [address] Potassium [Moles/Vol] 4.1 mmol/L Normal 3.5-5.1 [facility] Comment on above: Performed By: #### T SHR, LIPID, PSA, [id number], URIC, VIDH, GFR, 849900, CMP #### [address] [address] Sodium [Moles/Vol] 137 mmol/L Normal 136-145 [facility] Comment on above: Performed By: #### T SHR, LIPID, PSA, [id number], URIC, VIDH, GFR, 184065, CMP #### [address] [address] Total Protein 7.8 G/dL Normal 6.4-8.2 [facility] Comment on above: Performed By: #### T SHR, LIPID, PSA, [id number], URIC, VIDH, GFR, 886130, CMP #### [address] [address] Urea nitrogen [Mass/Vol] 20 mg/dL High 7-18 [facility] Comment on above: Performed By: #### T SHR, LIPID, PSA, [id number], URIC, VIDH, GFR, 344658, CMP #### [address] [address] LABORATORYOrdered By: SYSTEM SYSTEM on 04-11-2024 25-hydroxyvitamin [...] 04-11-2024 Cholesterol [Mass/Vol] 261 mg/dL High 0-200 [facility] Comment on above: Result Comment: Chol esterol Reference Interval: Less than 200 Desirable 200-239 Borderline high risk 240 and above High risk Performed By: #### T SHR, LIPID, PSA, [id number], URIC, VIDH, GFR, 613317, CMP ####[address] [place], [place] [address] Cholesterol in HDL [Mass/Vol] 65 mg/dL High 40-60 [facility] Comment on above: Performed By: #### T SHR, LIPID, PSA, [id number], URIC, VIDH, GFR, 450284, CMP ####[address] [place], [place] [address] Cholesterol in LDL [Mass/Vol] 176 mg/dL High 0-130 [facility] Comment on above: Performed By: #### T SHR, LIPID, PSA, [id number], URIC, VIDH, GFR, 036908, CMP ####[address] [place], [place] [address] Triglyceride [Mass/Vol] 98 mg/dL Normal 0-150 [facility] Comment on above: Result Comment: Trig lyceride Reference Interval: Less than 150 Normal 150-199 Borderline high risk 200-499 High risk 500 or higher Very high risk Performed By: #### T SHR, LIPID, PSA, [id number], URIC, VIDH, GFR, 543696, CMP ####[address] [place], [place] [address] PSAon 04-11-2024 Prostate Specific Antigen 3.31 ng/mL Normal 0.00-4.00 [facility] Comment on above: Performed By: #### T SHR, LIPID, PSA, [id number], URIC, VIDH, GFR, 967886, CMP ####[address] [place], [place] [address] TSHRon 04-11-2024 TSH Qn 1.56 m[IU]/L Normal 0.36-3.74 [facility] Comment on above: Performed By: #### T SHR, LIPID, PSA, [id number], URIC, VIDH, GFR, 304410, CMP ####[address] [place], [place] [address] URICon 04-11-2024 Uric Acid Lvl 8.8 mg/dL High 3.5-7.2 [facility] Comment on above: Performed By: #### T SHR, LIPID, PSA, [id number], URIC, VIDH, GFR, 342674, CMP #### [address] [place], [place] [address] VIDHon 04-11-2024 Vit. D 25-Hydroxy 41.8 ng/mL Normal [facility] Comment on above: Result Comment: Inte rpretive Values Based on Total 25([place]) Vitamin D: Deficient <20 ng/mL Insufficient 20 - <30 ng/mL Sufficient 30-100 ng/mL Performed By: #### T SHR, LIPID, PSA, [id number], URIC, VIDH, GFR, 046026, CMP ####[address] [place], [place] [address] LABORATORYOrdered By: Cinthia Moreland on 04-09-2024 Albumin DL <= 20 mg/L (U) [Mass/Vol] 3218 mcg/dL Invalid Interpretation Code AO ADM SS Albumin/Creatinine DL <= 20 mg/L (U) [Mass ratio] 55 mcg/mg High 0 - 30 mcg/mg AO Chemistry S Creatinine (U) [Mass/Vol] 58.2 mg/dL Invalid Interpretation Code AO ADM SS MALBRon 04-09-2024 U Creatinine 58.2 mg/dL Normal [facility] Comment on above: Performed By: #### M ALBR ####[address] [place], [place] [address] U Microalb 3218 mcg/dL Normal [facility] Comment on above: Performed By: #### M ALBR ####[address] [place], [place] [address] U Ratio Alb/Cre 55 mcg/mg High 0-30 [facility] Comment on above: Performed By: #### M ALBR ####[facility] [place], [place] [address] XR FLUORO GUIDANCE FOR THERA PY INJECTIONon 03-22-2024 XR FLUORO GUIDANCE FOR THERAPY INJECTION ORIGINAL Images acquired, not reported on this accession number. Normal [facility] PMDSon 02-14-2024 [employer] 13 Summary FINAL [facility] Comment on above: Result Comment: ==== [...] is an expected metabolite of dextromethorphan, an apwk-elc-kdvcvoj or prescription cough suppressant. Dextrorphan cannot be [...] consultation, please call . ==== Performed At: [facility] [address], [place] [id number] Stevie Dupree [facility] Ph:[phone] Performed By: #### 7 [id number] #### [facility] [address] [place] [address] Echo Complete W/ Contraston 01-01-2024 Echo Complete W/ Contrast [facility] [address] [place] [address] Echo Complete W/ Contrast 01/01/24 1357 MR#: [id number] Acct: [id number] Name: ARELI RUELAS Jr. Rep #: [id number] : 1960 63 From: Main Joyce MD Attending Dr: Dr. Main Joyce MD Status: RUDDY CARR Ordering Dr: Main Joyce MD Date: 01/01/24 Location: [facility] Sex: M AA Admitted: Reason For Study: [...] CC: Dr. Main Joyce MD; Dr. Gagandeep Braclay DO Date Dictated: 01/01/24 1357 Date Transcribed: 01/01/241736 Job Coach/Job Developer: Signed Normal [facility] Cardiology Visit Reporton Cardiology Visit Report [facility] [address] [place] [address]. [address] [place] [address] OFFICE VISIT Date of Service: 12/19/23 MR#: [id number] Acct: [id number] Name: ARELI RUELAS Jr. Rep #: [id number] : 1960 Provider: Dr. Main Joyce MD Age/Sex: 63/M [place] [facility] Status: Signed HPI HPI History of Present [...] Source Monitor Intake Visit Reasons: 9 M Paste Up Copy Camera Operator Required: No Accompanied by: Self Is patient [...] steroid the (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 Normal [facility] .GFRon 11-22-2023 GFR Non- 48 ml/min/1.73sqm Normal [facility] ([place]) Comment on above: Result Comment: GFR [...] By: #### B MP, GFR #### Cynthia [address] [address] GFR 58 ml/min/1.73sqm Normal [facility] ([place]) Comment on above: Result Comment: GFR Population [...] Performed By: #### B MP, GFR #### [address] [address] BMPon 11-22-2023 BUN/Creatinine Ratio 14 ratio Normal 7-27 [facility] ([place]) Comment on above: Performed By: #### B MP, GFR #### [address] [address] Calcium [Mass/Vol] 9.0 mg/dL Normal 8.4-10.2 [facility] ([place] Comment on above: Performed By: #### B MP, GFR #### [address] [address] Chloride [Moles/Vol] 104 mmol/L Normal 98-107 [facility] ([place] Comment on above: Performed By: #### B MP, GFR #### [address] [address] CO2 [Moles/Vol] 25 mmol/L Normal 23-31 [facility] ([place] Comment on above: Performed By: #### B MP, GFR #### [address] [address] Creatinine [Mass/Vol] 1.47 mg/dL High 0.70-1.30 [facility] ([place]) Comment on above: Result Comment: Test ing performed on Siemens Dimension EXL analyzer using a modified kinetic Feliz technique. Performed By: #### B MP, GFR #### [address] [address] Electrolyte Balance 10.0 mEq/L Normal 4.0-15.0 [facility] ([place]) Comment on above: Performed By: #### B MP, GFR #### [address] [address] Glucose [Mass/Vol] 90 mg/dL Normal 80-115 [facility] ([place] Comment on above: Performed By: #### B MP, GFR #### [address] [address] Potassium [Moles/Vol] 4.1 mmol/L Normal 3.5-5.1 [facility] ([place]) Comment on above: Performed By: #### B MP, GFR #### [facility] [address] [place], [place] [address] Sodium [Moles/Vol] 139 mmol/L Normal 136-145 [facility] ([place] Comment on above: Performed By: #### B MP, GFR #### [address] [place] [address] [place], [place] [address] Urea nitrogen [Mass/Vol] 20 mg/dL High 7-18 [facility] ([place] Comment on above: Performed By: #### B MP, GFR #### [facility] [address] [place], [place] [address] LABORATORYOrdered By: SYSTEM SYSTEM on 11-22-2023 Calcium [...] glenda 10-26-2023 Wound Ctr History & Physical [facility] [address] [place] [address] H P Exam - Wound Care 10/26/23 1200 MR#: [id number] Acct: [id number] Name: ARELI RUELAS Jr. Rep #: [id number] : 1960 63 From: Benedict Hoyt MD [...] chills, fever or change in bowel habit. [facility] Medical History (Updated 10/26/23 @ 12:58 [...] steroid therapy Atherosclerosis of coronary artery of [place] heart without angina pectoris Diastolic congestive heart [...] No problems noted. Surgical History ... Normal [facility] [id number] 10-21-2023 Complement C3A 125.0 mg/dL Normal 90.0-170.0 [facility] ([place] Comment on above: Result Comment: No te - New Reference Range in effect 19 Performed By: #### C 3C4A #### [address] [address] Complement C4A 41.0 mg/dL High 16.0-38.0 [facility] ([place] Comment on above: Performed By: #### C 3C4A #### [address] [address] LABORATORYOrdered By: Silvia Cardona on 10-21-2023 Creatinine [...] 10-21-2023 U Creatinine 21.6 mg/dL Low 39.0-259.0 [facility] ([place] Comment on above: Performed By: #### R PCUR #### Cynthia [address] [address] U Protein <6 Normal 0-11 [facility] ([place] Comment on above: Performed By: #### R PCUR #### [address] [address] U Ratio Prot/Creat Unable to Calculate Normal [facility] ([place] Comment on above: Result Comment: Unab le to calculate this test result accurately. Results used to calculate this test are outside the reportable range. Performed By: #### R PCUR #### [address] [address] .GFRon 10-20-2023 GFR 55 ml/min/1.73sqm Normal [facility] ([place] Comment on above: Result Comment: GFR Population [...] By: #### P RO, BMP, GFR #### [address] [address] GFR Non- 45 ml/min/1.73sqm Normal [facility] ([place] Comment on above: Result Comment: GFR Population [...] By: #### P RO, BMP, GFR #### [address] [address] BMPon 10-20-2023 BUN/Creatinine Ratio 15 ratio Normal 7-27 [facility] ([place] Comment on above: Performed By: #### P RO, BMP, GFR #### [address] [address] Calcium [Mass/Vol] 9.4 mg/dL Normal 8.4-10.2 [facility] ([place] Comment on above: Performed By: #### P RO, BMP, GFR #### [address] [address] Chloride [Moles/Vol] 105 mmol/L Normal 98-107 [facility] ([place] Comment on above: Performed By: #### P RO, BMP, GFR #### [address] [address] CO2 [Moles/Vol] 29 mmol/L Normal 23-31 [facility] ([place] Comment on above: Performed By: #### P RO, BMP, GFR #### [address] [address] Creatinine [Mass/Vol] 1.56 mg/dL High 0.70-1.30 [facility] ([place] Comment on above: Performed By: #### P RO, BMP, GFR #### [address] [address] Electrolyte Balance 6.0 mEq/L Normal 4.0-15.0 [facility] ([place] Comment on above: Performed By: #### P RO, BMP, GFR #### [address] [address] Glucose [Mass/Vol] 90 mg/dL Normal 80-115 [facility] ([place] Comment on above: Performed By: #### P RO, BMP, GFR #### [address] [address] Potassium [Moles/Vol] 5.1 mmol/L Normal 3.5-5.1 [facility] ([place] Comment on above: Performed By: #### P RO, BMP, GFR #### [place] [address] [place], [place] [address] Sodium [Moles/Vol] 140 mmol/L Normal 136-145 [facility] ([place] Comment on above: Performed By: #### P RO, BMP, GFR #### [place] [address] [place], [place] [address] Urea nitrogen [Mass/Vol] 24 mg/dL High 7-18 [facility] ([place] Comment on above: Performed By: #### P RO, BMP, GFR #### [place] [address] [place], [place] [address] DIMERon 10-20-2023 D-Dimer <200 Normal 0-230 [facility] ([place] Comment on above: Result Comment: DDN: Results [...] (PE). Performed By: #### U A #### [address] [address] LABORATORYOrdered By: SYSTEM SYSTEM on 10-20-2023 Calcium [...] Uric Acid Lvl 7.2 mg/dL Normal 3.5-7.2 [facility] ([place] Comment on above: Performed By: #### P RO, BMP, GFR #### [address] [address] .Auto Diffon 09-19-2023 Basophil, Absolute 0.1 10 3/mcL Normal 0.0-0.2 [facility] ([place] Comment on above: Performed By: #### U A #### [address] [address] Basophils/100 WBC (Bld) 1.1 % Normal 0.0-2.5 [facility] ([place] Comment on above: Performed By: #### U A #### [address] [address] Eosinophil, Absolute 0.2 10 3/mcL Normal 0.0-0.4 [facility] ([place]) Comment on above: Performed By: #### U A #### [address] [address] Eosinophils/100 WBC (Bld) 3.7 % Normal 0.0-7.0 [facility] ([place] Comment on above: Performed By: #### U A #### [address] [address] Lymphocyte, Absolute 1.6 10 3/mcL Normal 0.8-3.9 [facility] ([place] Comment on above: Performed By: #### U A #### [address] [address] Lymphocytes/100 WBC (Bld) 26.4 % Normal 10.0-50.0 [facility] ([place] Comment on above: Performed By: #### U A #### [address] [address] Monocyte, Absolute 0.5 10 3/mcL Normal 0.2-1.0 [facility] ([place] Comment on above: Performed By: #### U A #### [address] [address] Monocytes/100 WBC (Bld) 8.1 % Normal 1.7-13.0 [facility] ([place] Comment on above: Performed By: #### U A #### [address] [address] Neutrophils/100 WBC (Bld) 60.7 % Normal 37.0-80.0 [facility] ([place] Comment on above: Performed By: #### U A #### [address] [address] .GFRon 09-19-2023 GFR 60 ml/min/1.73sqm Normal [facility] ([place] Comment on above: Result Comment: GFR Population [...] meters Performed By: #### U A #### [address] [address] GFR Non- 50 ml/min/1.73sqm Normal [facility] ([place] Comment on above: Result Comment: GFR Population [...] meters Performed By: #### U A #### [address] [address] .NEUABSon 09-19-2023 Neutrophil, Absolute 3.7 10 3/mcL Normal 2.9-6.2 [facility] ([place] Comment on above: Performed By: #### U A #### [address] [address] A1Con 09-19-2023 HbA1c (Bld) [Mass fraction] 5.5 % Normal 4.3-6.4 [facility] ([place] Comment on above: Performed By: #### U A #### [address] [address] CBCon 09-19-2023 Erythrocyte distribution width (RBC) [Ratio] 16.4 % High 11.5-14.5 [facility] ([place] Comment on above: Performed By: #### U A #### [address] [address] Hematocrit (Bld) [Volume fraction] 45.3 % Normal 42.0-52.0 [facility] ([place] Comment on above: Performed By: #### U A #### [place] [address] Hgb 14.7 G/dL Normal 14.0-18.0 [facility] ([place] Comment on above: Performed By: #### U A #### [place] [address] MCH (RBC) [Entitic mass] 28.5 pg Normal 27.0-31.2 [facility] ([place] Comment on above: Performed By: #### U A #### [place] [address] MCHC 32.5 G/dL Normal 31.8-35.4 [facility] [place] Comment on above: Performed By: #### U A #### [place] [address] MCV (RBC) [Entitic vol] 87.5 fL Normal 80.0-94.0 [facility] [place] Comment on above: Performed By: #### U A #### [place] [address] Platelet 171 10 3/mcL Normal 130-400 [facility] ([place] Comment on above: Performed By: #### U A #### [place] [address] Platelet mean volume (Bld) [Entitic vol] 9.7 fL Normal 7.4-10.4 [facility] ([place] Comment on above: Performed By: #### U A #### [place] [id number] RBC 5.18 10 6/mcL Normal 4.04-6.13 [facility] ([place] Comment on above: Performed By: #### U A #### [place] [id number] WBC 6.0 10 3/mcL Normal 4.6-10.8 [facility] ([place] Comment on above: Performed By: #### U A #### [address] [address] CMPon 09-19-2023 Albumin Level 3.3 G/dL Low 3.4-4.8 [facility] ([place] Comment on above: Performed By: #### U A #### [address] [address] Albumin/Globulin [Mass ratio] 1.1 {ratio} Normal 1.1-2.5 [facility] ([place] Comment on above: Performed By: #### U A #### [address] [address] ALP [Catalytic activity/Vol] 73 U/L Normal 40-135 [facility] ([place] Comment on above: Performed By: #### U A #### [place] [id number] ALT [Catalytic activity/Vol] 14 U/L Low 16-63 [facility] ([place] Comment on above: Performed By: #### U A #### [address] [address] AST [Catalytic activity/Vol] 16 U/L Normal 10-40 [facility] ([place] Comment on above: Performed By: #### U A #### [place] [id number] Bili Total 0.6 mg/dL Normal 0.2-1.0 [facility] ([place] Comment on above: Result Comment: Use of this assay is not recommended for patients undergoing treatment with eltrombopag due to the potential for falsely elevated results. Performed By: #### U A #### [address] [address] BUN/Creatinine Ratio 12 ratio Normal 7-27 [facility] ([place] Comment on above: Performed By: #### U A #### [address] [address] Calcium [Mass/Vol] 9.1 mg/dL Normal 8.4-10.2 [facility] ([place] Comment on above: Performed By: #### U A #### [address] [address] Chloride [Moles/Vol] 103 mmol/L Normal 98-107 [facility] ([place] Comment on above: Performed By: #### U A #### [address] [address] CO2 [Moles/Vol] 30 mmol/L Normal 23-31 [facility] ([place] Comment on above: Performed By: #### U A #### [address] [address] Creatinine [Mass/Vol] 1.43 mg/dL High 0.70-1.30 [facility] ([place] Comment on above: Performed By: #### U A #### [address] [address] Electrolyte Balance 8.0 mEq/L Normal 4.0-15.0 [facility] ([place] Comment on above: Performed By: #### U A #### [address] [address] Globulin 3.0 G/dL Normal [facility] ([place] Comment on above: Performed By: #### U A #### [address] [address] Glucose [Mass/Vol] 91 mg/dL Normal 80-115 [facility] ([place] Comment on above: Performed By: #### U A #### [address] [address] Potassium [Moles/Vol] 4.6 mmol/L Normal 3.5-5.1 [facility] ([place] Comment on above: Performed By: #### U A #### [address] [address] Sodium [Moles/Vol] 141 mmol/L Normal 136-145 [facility] ([place] Comment on above: Performed By: #### U A #### [address] [address] Total Protein 6.3 G/dL Low 6.4-8.2 [facility] ([place] Comment on above: Performed By: #### U A #### [facility] [address] [place] [address] Urea nitrogen [Mass/Vol] 17 mg/dL Normal 7-18 [facility] ([place] Comment on above: Performed By: #### U A #### [facility] [address] [place] [address] LABORATORYOrdered By: SYSTEM SYSTEM on 09-19-2023 Albumin [...] Uric Acid Lvl 9.0 mg/dL High 3.5-7.2 [facility] ([place] Comment on above: Performed By: #### U A #### [place] [address] [place] [address] XR FLUORO 1-2 HRS TECH TIMEo n [...] 03/29/2023 1:43:34 AM Ordering Provider: ANTHONY Rodríguez [facility]) APTTon 03-28-2023 aPTT Coag (Bld) [Time] 30.8 s Normal 25.0-35.0 [facility]) Comment on above: Result Comment: For Heparin anticoagulation therapy, the recommended therapeutic range is: 54-77 seconds (APTT Correlation with Anti-Xa therapeutic range of 0.3-0.7 units/ml). PLEASE REFERENCE THE PHARMACY PROTOCOL FOR DOSING. Performed By: #### P RO, BMP, GFR #### [address] [address] Heparin dose (APTT) Unknown Normal [facility] ([place]) Comment on above: Performed By: #### P RO, BMP, GFR #### [place] [address] [place], [place] [address] FIBon 03-28-2023 Fibrinogen 487 mg/dL Normal 250-560 [facility]) Comment on above: Performed By: #### P RO, BMP, GFR #### [address] [place] [address] [place], [place] [address] LABORATORYOrdered By: Raudel Velez on 03-28-2023 aPTT Coag (Bld) [Time] 30.8 s Normal 25.0 - 35.0 seconds [facility] Comment on above: Interpretive Data: F or Heparin anticoagulation therapy, the recommended therapeutic range is: 54-77 seconds (APTT Correlation with Anti-Xa therapeutic range of 0.3-0.7 units/ml). PLEASE REFERENCE THE PHARMACY PROTOCOL FOR DOSING. Fibrinogen 487 mg/dL Normal 250 - 560 mg/dL [facility] Heparin dose (APTT) Unknown (03/28/23 6:35 AM) Normal Coagulation S PT Coag (PPP) [Time] 13.2 s Normal 9.0 - 1 4.2 seconds [facility] Comment on above: Interpretive Data: E ffective 10/02/07, Protime results may be affected by some antibiotics (i.e. Ciprofloxacin, Azithromycin, Bactrim) which may potentiate the action of oral anticoagulants, with further increases in Protime/INR. PT International Ratio 1.2 ratio Invalid Interpretation Code [facility] Comment on above: Interpretive Data: T viraj [employer] (CHEST, 1991, 102:312S-25S) [...] 03-28-2023 Platelet 143 10 3/mcL Low 150-450 [facility] ([place]) Comment on above: Performed By: #### FILIPE BETTS, GFR #### [address] [place] [address] [place], [place] [address] PROon 03-28-2023 INR Coag (PPP) [Relative time] 1.2 {INR} Normal [facility] ([place]) Comment on above: Result Comment: [employer] (CHEST, 1992, 102:312S-25S) recommended therapeutic range for oral anticoagulant therapy is: LOW RISK: Prophylaxis of venous thrombosis INR: 2.0-3.0 Treatment of pulmonary embolism 2.0-3.0 Prevention of systemic embolism 2.0-3.0 HIGH RISK: Mechanical prosthetic valves 2.5-3.5 Performed By: #### P RO, BMP, GFR #### [facility] [address] [place], [place] [address] PT Coag (PPP) [Time] 13.2 s Normal 9.0-14.2 [facility] ([place]) Comment on above: Result Comment: Effe ctive 10/02/07, Protime results may be affected by some antibiotics (i.e. Ciprofloxacin, Azithromycin, Bactrim) which may potentiate the action of oral anticoagulants, with further increases in Protime/INR. Performed By: #### P RO, BMP, GFR #### [facility] [address] [place], [place] [address] Cardiology Visit Reporton Cardiology Visit Report [facility] [address] [place], [place] [address] OFFICE VISIT Date of Service: 03/24/23 MR#: [id number] Acct: [id number] Name: ARELI RUELAS JrMaria Esther Rep #: [id number] : 1960 Provider: LILLIE long Age/Sex: 62/M Location: [facility] Status: Signed [facility] History of Present Illness Details: This is [...] 96 Intake Visit Reasons: 1 Y FU Paste Up Copy Camera Operator Required: No Is patient in pain?: No [...] bp,heart #180 tabs 03/24/23 [Rx Confirmed 03/24/23] [facility] Medical History (Reviewed 03/24/23 @ 13:37 by Lien Cortes CORE ASSEMBLY SUPERVISOR, CORE ASSEMBLY SUPERVISOR-C) Acute gout Ambulates with cane Arthritis Atherosclerosis of coronary artery of [place] heart without angina pectoris Cardiac dysrhythmia 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 Normal [facility] XR CHEST 2 VIEWSon 3 XR CHEST [...] 8:43:37 AM Ordering Provider: ANTHONY FERNÁNDEZ Normal [facility] [place] [facility] 03-15-2023 Color (U) Yellow Normal [facility] [place] Comment on above: Performed By: #### U A #### [address] [address] Glucose (U) [Mass/Vol] Negative Normal Negative [facility] [place] Comment on above: Performed By: #### U A #### [address] [address] Ketones Ql (U) Negative Normal Neg-Trace [facility] [place] Comment on above: Performed By: #### U A #### [address] [address] UA Appear Clear Normal Clear [facility] [place] Comment on above: Performed By: #### U A #### [address] [address] UA Blood Trace Normal Neg-Trace [facility] [place] Comment on above: Performed By: #### U A #### [address] [address] UA Leuk Est Negative Normal Negative [facility] [place] Comment on above: Performed By: #### U A #### [address] [address] UA Nitrite Negative Normal Negative [facility] [place] Comment on above: Performed By: #### U A #### [address] [address] UA pH 6.5 Normal 5.0 - 8.0 [facility] [place] Comment on above: Performed By: #### U A #### [address] [address] UA Protein 30 mg/dL Normal Negative [facility] [place] Comment on above: Performed By: #### U A #### [address] [address] UA Spec Grav 1.025 Normal 1.006-1.029 [facility] [place] Comment on above: Performed By: #### U A #### [address] [address] UA Specimen Type Clean Catch Normal [facility] [place] Comment on above: Performed By: #### U A #### [address] [address] UA Urobilinogen 1.0 E.U./dL Normal 0.2-1.0 [facility] [place] Comment on above: Performed By: #### U A #### [address] [address] Urobilinogen (U) [Mass/Vol] Negative Normal Neg-Trace [facility] [place] Comment on above: Performed By: #### U A #### [address] [address] .Auto Diffon 03-09-2023 Basophil, Absolute 0.1 10 3/mcL Normal 0.0-0.2 [facility] ([place] Comment on above: Performed By: #### P RO, BMP, GFR #### [address] [address] Basophils/100 WBC (Bld) 1.0 % Normal 0.0-2.5 [facility] [place] Comment on above: Performed By: #### P RO, BMP, GFR #### [address] [address] Eosinophil, Absolute 0.2 10 3/mcL Normal 0.0-0.4 [facility] ([place] Comment on above: Performed By: #### P RO, BMP, GFR #### [address] [address] Eosinophils/100 WBC (Bld) 3.2 % Normal 0.0-7.0 [facility] [place] Comment on above: Performed By: #### P RO, BMP, GFR #### [address] [address] Lymphocyte, Absolute 1.9 10 3/mcL Normal 0.8-3.9 [facility] ([place] Comment on above: Performed By: #### P RO, BMP, GFR #### [address] [address] Lymphocytes/100 WBC (Bld) 29.2 % Normal 10.0-50.0 [facility] [place] Comment on above: Performed By: #### P RO, BMP, GFR #### [address] [address] Monocyte, Absolute 0.7 10 3/mcL Normal 0.2-1.0 [facility] [place] Comment on above: Performed By: #### P RO, BMP, GFR #### [address] [address] Monocytes/100 WBC (Bld) 11.5 % Normal 1.7-13.0 [facility] [place] Comment on above: Performed By: #### P RO, BMP, GFR #### [address] [address] Neutrophils/100 WBC (Bld) 55.1 % Normal 37.0-80.0 [facility] [place] Comment on above: Performed By: #### P RO, BMP, GFR #### [address] [address] .GFRon 03-09-2023 GFR 72 ml/min/1.73sqm Normal [facility] ([place]) Comment on above: Result Comment: GFR [...] By: #### P RO, BMP, GFR #### [address] [address] GFR Non- 59 ml/min/1.73sqm Normal [facility] [place] Comment on above: Result Comment: GFR Population [...] By: #### P RO, BMP, GFR #### [address] [address] .NEUABSon 03-09-2023 Neutrophil, Absolute 3.5 10 3/mcL Normal 2.9-6.2 [facility] ([place] Comment on above: Performed By: #### P RO, BMP, GFR #### [address] [address] A1Con 03-09-2023 HbA1c (Bld) [Mass fraction] 5.6 % Normal 4.3-6.4 [facility] [place] Comment on above: Performed By: #### P RO, BMP, GFR #### [address] [address] B12on 03-09-2023 Cobalamin (Vitamin B12) [Mass/Vol] 381 pg/mL Normal 211-911 [facility] [place] Comment on above: Performed By: #### P RO, BMP, GFR #### [place] [address] CBCon 03-09-2023 Erythrocyte distribution width (RBC) [Ratio] 15.8 % High 11.5-14.5 [facility] [place] Comment on above: Performed By: #### P RO, BMP, GFR #### [place] [address] Hematocrit (Bld) [Volume fraction] 48.8 % Normal 42.0-52.0 [facility] [place] Comment on above: Performed By: #### P RO, BMP, GFR #### [place] [address] Hgb 15.9 G/dL Normal 14.0-18.0 [facility] [place] Comment on above: Performed By: #### P RO, BMP, GFR #### [place] [address] MCH (RBC) [Entitic mass] 27.4 pg Normal 27.0-31.2 [facility] [place] Comment on above: Performed By: #### P RO, BMP, GFR #### [place] [address] MCHC 32.5 G/dL Normal 31.8-35.4 [facility] [place] Comment on above: Performed By: #### P RO, BMP, GFR #### [place] [address] MCV (RBC) [Entitic vol] 84.4 fL Normal 80.0-94.0 [facility] [place] Comment on above: Performed By: #### P RO, BMP, GFR #### [address] [address] Platelet 147 10 3/mcL Normal 130-400 [facility] [place] Comment on above: Performed By: #### P RO, BMP, GFR #### [address] [address] Platelet mean volume (Bld) [Entitic vol] 9.5 fL Normal 7.4-10.4 [facility] [place] Comment on above: Performed By: #### P RO, BMP, GFR #### [address] [address] RBC 5.78 10 6/mcL Normal 4.04-6.13 [facility] [place] Comment on above: Performed By: #### P RO, BMP, GFR #### [address] [address] WBC 6.4 10 3/mcL Normal 4.6-10.8 [facility] [place] Comment on above: Performed By: #### P RO, BMP, GFR #### [address] [address] CMPon 03-09-2023 Albumin Level 3.6 G/dL Normal 3.4-4.8 [facility] [place] Comment on above: Performed By: #### P RO, BMP, GFR #### [address] [address] Albumin/Globulin [Mass ratio] 1.1 {ratio} Normal 1.1-2.5 [facility] [place] Comment on above: Performed By: #### P RO, BMP, GFR #### [address] [address] ALP [Catalytic activity/Vol] 82 U/L Normal 40-135 [facility] [place] Comment on above: Performed By: #### P RO, BMP, GFR #### [address] [address] ALT [Catalytic activity/Vol] 23 U/L Normal 16-63 [facility] [place] Comment on above: Performed By: #### P RO, BMP, GFR #### [address] [address] AST [Catalytic activity/Vol] 16 U/L Normal 10-40 [facility] [place] Comment on above: Performed By: #### P RO, BMP, GFR #### [address] [address] Bili Total 0.6 mg/dL Normal 0.2-1.0 [facility] [place] Comment on above: Result Comment: Use of this assay is not recommended for patients undergoing treatment with eltrombopag due to the potential for falsely elevated results. Performed By: #### P RO, BMP, GFR #### [address] [address] BUN/Creatinine Ratio 14 ratio Normal 7-27 [facility] [place] Comment on above: Performed By: #### P RO, BMP, GFR #### [address] [address] Calcium [Mass/Vol] 9.3 mg/dL Normal 8.4-10.2 [facility] [place] Comment on above: Performed By: #### P RO, BMP, GFR #### [address] [address] Chloride [Moles/Vol] 105 mmol/L Normal 98-107 [facility] [place] Comment on above: Performed By: #### P RO, BMP, GFR #### [address] [address] CO2 [Moles/Vol] 31 mmol/L Normal 23-31 [facility] [place] Comment on above: Performed By: #### P RO, BMP, GFR #### [address] [address] Creatinine [Mass/Vol] 1.23 mg/dL Normal 0.70-1.30 [facility] ([place] Comment on above: Performed By: #### P RO, BMP, GFR #### [address] [address] Electrolyte Balance 8.0 mEq/L Normal 4.0-15.0 [facility] ([place] Comment on above: Performed By: #### P RO, BMP, GFR #### [address] [address] Globulin 3.3 G/dL Normal [facility] [place] Comment on above: Performed By: #### P RO, BMP, GFR #### [address] [address] Glucose [Mass/Vol] 77 mg/dL Low 80-115 [facility] [place] Comment on above: Performed By: #### P RO, BMP, GFR #### [address] [address] Potassium [Moles/Vol] 3.9 mmol/L Normal 3.5-5.1 [facility] [place] Comment on above: Performed By: #### P RO, BMP, GFR #### [address] [address] Sodium [Moles/Vol] 144 mmol/L Normal 136-145 [facility] [place] Comment on above: Performed By: #### P RO, BMP, GFR #### [address] [address] Total Protein 6.9 G/dL Normal 6.4-8.2 [facility] [place] Comment on above: Performed By: #### P RO, BMP, GFR #### [address] [address] Urea nitrogen [Mass/Vol] 17 mg/dL Normal 7-18 [facility] [place] Comment on above: Performed By: #### P RO, BMP, GFR #### [address] [address] FT4on 03-09-2023 Free T4 [Mass/Vol] 1.26 ng/dL Normal 0.76-1.46 [facility] [place] Comment on above: Performed By: #### P RO, BMP, GFR #### [address] [address] LIPIDon 03-09-2023 Cholesterol [Mass/Vol] 147 mg/dL Normal 0-200 [facility] [place] Comment on above: Result Comment: Chol esterol Reference Interval: Less than 200 Desirable 200-239 Borderline high risk 240 and above High risk Performed By: #### P RO, BMP, GFR #### [address] [address] Cholesterol in HDL [Mass/Vol] 49 mg/dL Normal 40-60 [facility] [place] Comment on above: Performed By: #### P RO, BMP, GFR #### [address] [address] Cholesterol in LDL [Mass/Vol] 85 mg/dL Normal 0-130 [facility] [place] Comment on above: Performed By: #### P RO, BMP, GFR #### [address] [address] Triglyceride [Mass/Vol] 66 mg/dL Normal 0-150 [facility] [place] Comment on above: Result Comment: Trig lyceride Reference Interval: Less than 150 Normal 150-199 Borderline high risk 200-499 High risk 500 or higher Very high risk Performed By: #### P RO, BMP, GFR #### [address] [address] MALBRon 03-09-2023 U Creatinine 266.7 mg/dL High 39.0-259.0 [facility] [place] Comment on above: Performed By: #### U A #### [address] [address] U Microalb 6124 mcg/dL Normal [facility] [place] Comment on above: Performed By: #### U A #### [facility] [address] [place] [address] U Ratio Alb/Cre 23 mcg/mg Normal 0-30 [facility] [place] Comment on above: Performed By: #### U A #### [address] [address] PSAon 03-09-2023 Prostate Specific Antigen 2.07 ng/mL Normal 0.00-4.00 [facility] [place] Comment on above: Performed By: #### P RO, BMP, GFR #### [address] [address] TSHon 03-09-2023 TSH Qn 1.17 m[IU]/L Normal 0.36-3.74 [facility] [place] Comment on above: Performed By: #### P RO, BMP, GFR #### [place] [address] URICon 03-09-2023 Uric Acid Lvl 8.9 mg/dL High 3.5-7.2 [facility] [place] Comment on above: Performed By: #### P RO, BMP, GFR #### [address] [address] VIDHon 03-09-2023 Vit. D 25-Hydroxy 46.0 ng/mL Normal [facility] [place] Comment on above: Result Comment: Inte rpretive Values Based on Total 25(OH) Vitamin D: Deficient <20 ng/mL Insufficient 20 - <30 ng/mL Sufficient 30-100 ng/mL Performed By: #### P RO, BMP, GFR #### [address] [address] .GFRon 01-09-2023 GFR 81 ml/min/1.73sqm Normal [facility] [place] Comment on above: Result Comment: GFR Population [...] By: #### P RO, BMP, GFR #### [address] [address] GFR Non- 67 ml/min/1.73sqm Normal [facility] [place] Comment on above: Result Comment: GFR Population [...] By: #### P RO, BMP, GFR #### [address] [address] BMPon 01-09-2023 BUN/Creatinine Ratio 14 ratio Normal 7-27 [facility] [place] Comment on above: Performed By: #### P RO, BMP, GFR #### [address] [address] Calcium [Mass/Vol] 8.6 mg/dL Normal 8.4-10.2 [facility] [place] Comment on above: Performed By: #### P RO, BMP, GFR #### [address] [address] Chloride [Moles/Vol] 103 mmol/L Normal 98-107 [facility] [place] Comment on above: Performed By: #### P RO, BMP, GFR #### [address] [address] CO2 [Moles/Vol] 33 mmol/L High 23-31 [facility] [place] Comment on above: Performed By: #### P RO, BMP, GFR #### [address] [address] Creatinine [Mass/Vol] 1.11 mg/dL Normal 0.70-1.30 [facility] [place] Comment on above: Performed By: #### P RO, BMP, GFR #### [address] [address] Electrolyte Balance 7.0 mEq/L Normal 4.0-15.0 [facility] [place] Comment on above: Performed By: #### P RO, BMP, GFR #### [address] [address] Glucose [Mass/Vol] 96 mg/dL Normal 80-115 [facility] [place] Comment on above: Performed By: #### P RO, BMP, GFR #### [address] [address] Potassium [Moles/Vol] 3.6 mmol/L Normal 3.5-5.1 [facility] [place] Comment on above: Performed By: #### P RO, BMP, GFR #### [address] [address] Sodium [Moles/Vol] 143 mmol/L Normal 136-145 [facility] [place] Comment on above: Performed By: #### P RO, BMP, GFR #### [address] [address] Urea nitrogen [Mass/Vol] 16 mg/dL Normal 7-18 [facility] [place] Comment on above: Performed By: #### P RO, BMP, GFR #### [address] [address] LABORATORYOrdered By: SYSTEM SYSTEM on 01-09-2023 Calcium [...] Comment on above: Interpretive Data: Francoise cali [employer] (CHEST, 1991, 102:312S-25S) [...] Coag (PPP) [Time] 13.8 s Normal 9.0-14.2 [facility] ([place] Comment on above: Performed By: #### P RO, BMP, GFR #### [address] [address] PT International Ratio 1.2 Normal [facility] [place] Comment on above: Result Comment: [employer] (CHEST, 1991, 102:312S-25S) recommended therapeutic range for oral anticoagulant therapy is: LOW RISK: Prophylaxis of venous thrombosis INR: 2.0-3.0 Treatment of pulmonary embolism 2.0-3.0 Prevention of systemic embolism 2.0-3.0 HIGH RISK: Mechanical prosthetic valves 2.5-3.5 Performed By: #### P RO, BMP, GFR #### [address] [address] XR FLUORO < 1HR TECH TIMEon 01-09-2023 XR FLUORO < 1HR TECH TIME ORIGINAL Images acquired, not reported on this accession number. Normal [facility] ([place] LABORATORYOrdered By: Karyn Esquivel on 05-23-2022 Albumin DL <= 20 [...] INR Coag (Bld) [Relative time] 1.3 {INR} [facility] Comment on above: Critical Value > 4.0 Whole blood prothrombin time Ordered By: Dr. Owens on 05-09-2022 PT Coag (Bld) [Time] 15.6 s 11.7-14.9 [facility] [place] [facility] - CoagulationOrde red By: Dr. Oewns on 02-07-2022 INR Coag (Bld) [Relative time] 1.1 {INR} [facility] Comment on above: Critical Value > 4.0 Whole blood prothrombin time Ordered By: Dr. Owens on 02-07-2022 PT Coag (Bld) [Time] 13.5 s 11.7-14.9 [facility] [place] [facility] - Coagulationon 1 INR Coag (Bld) [Relative time] 1.2 {INR} [facility] Work Phone: Comment on above: Critical Value > 4.0 Whole blood prothrombin time on 12-20-2021 PT Coag (Bld) [Time] 14.6 s 11.7-14.9 [facility] [place] Work Phone: LABORATORYOrdered By: Karyn Esquivel on [...] Auto (Unsp spec) [#/Vol] 0.86 10*3/uL 0.83-4.51 [facility] Work Phone: Basophil percentageon 2021 Basophils/100 WBC (Bld) 0.3 % 0-1 [facility] Work Phone: [phone] Chloride [Moles/Vol] 104 mmol/L 98-107 [facility] [place] Work Phone: [phone] Eosinophils/100 WBC (Bld) 0.0 % 0-5 [facility] Work Phone: [phone] Glucose [Mass/Vol] 135 mg/dL 74-106 [facility] Work Phone: Comment on above: Fasting Glucose resu lt greater than or equal to 126 mg/dL suggests DIABETES MELLITUS per A.D.A. criteria. Neutrophils (Bld) [#/Vol] 7.7 10*3/uL 2.0-7.7 [facility] Work Phone: Neutrophils/100 WBC (Bld) 80.1 % 47-70 [facility] Work Phone: Potassium [Moles/Vol] 3.8 mmol/L 3.5-5.1 [facility] Work Phone: Sodium [Moles/Vol] 140 mmol/L 136-145 [facility] Work Phone: WBC (Bld) [#/Vol] 9.6 10*3/uL 4.4-11.0 [facility] Work Phone: Blood erythrocytes count (nu mber/volume)on 12-02-2021 RBC (Bld) [#/Vol] 6.07 10*6/uL 4.6-6.2 [facility] Work Phone: Blood hemoglobin measurement (mass/volume)on 12-02-2021 Hemoglobin (Bld) [Mass/Vol] 15.3 g/dL 13.0-16.5 [facility] Work Phone: Blood lymphocytes/100 leukoc yteson 12-02-2021 Lymphocytes/100 WBC (Bld) 9.0 % 19-41 [facility] Work Phone: Blood manual differential co mment interpretation (narrative result)on 12-02-2021 Manual differential comment Omar (Bld) [Interp] SCANNED [facility] Work Phone: Blood monocytes/100 leukocyt eson 12-02-2021 Monocytes/100 WBC (Bld) 10.2 % 0-10 [facility] Work Phone: Blood platelet mean volumeon 12-02-2021 Platelet mean volume (Bld) [Entitic vol] TNP [facility] Work Phone: Comment on above: Test not performed Determination of erythrocyte mean corpuscular volume (MCV)on 12-02-2021 MCV (RBC) [Entitic vol] 77.9 fL 80-94 [facility] Work Phone: Hematocrit Auto (Bld) [Volum e fraction]on 12-02-2021 Hematocrit (Bld) [Volume fraction] 47.3 % 40-54 [facility] Work Phone: INR in Blood by Coagulation assayon 12-02-2021 INR Coag (Bld) [Relative time] 1.2 {INR} [facility] Work Phone: Laboratory - Chemistry and C hemistry - challengeon 12-02-2021 CO2 [Moles/Vol] 28.0 mmol/L 21.0-32.0 [facility] Work Phone: Urea nitrogen/Creatinine [Mass ratio] 18.6 mg/mg 10-20 [facility] Work Phone: Laboratory - Coagulationon 0 12-02-2021 PT Coag (PPP) [Time] 15.1 s 11.7-14.9 [facility] [place] Work Phone: Laboratory - Hematology and Cell countson 12-02-2021 Anisocytosis Ql (Bld) 1+ [facility] Work Phone: Erythrocyte distribution width (RBC) [Entitic vol] 55.2 fL 35.1-43.9 [facility] Work Phone: Erythrocyte distribution width (RBC) [Ratio] 20.3 % 11.6-14.6 [facility] Work Phone: Immature granulocytes/100 WBC (Bld) 0.400 % 0.0-0.9 [facility] Work Phone: Comment on above: IG% - Immature Granu locytes (promyelocytes, myelocytes and metamyelocytes) > 1% indicates that a LEFT SHIFT is Present. MCH (RBC) [Entitic mass] 25.2 pg 27.0-32.0 [facility] Work Phone: Nucleated RBC/100 WBC (Bld) [Ratio] 0 % 0-5 [facility] Work Phone: MCHC Auto (RBC) [Mass/Vol]on 12-02-2021 MCHC (RBC) [Mass/Vol] 32.3 g/dL 32-36 [facility] Work Phone: No Panel Informationon 12-02 Estimated Creatinine Clearance Calc 61.83 ml/min [facility] Work Phone: Estimated GFR (MDRD) Amer 66 mL/min >60 [facility] Work Phone: Comment on above: GFR Calc Estimated GFR (MDRD) Non-Af Amer 55 mL/min >60 [facility] Work Phone: Comment on above: Non- GFR Calc Platelets bldon 12-02-2021 Platelets (Bld) [#/Vol] 192 10*3/uL 150-450 [facility] Work Phone: Serum or plasma calcium jamey urement (mass/volume)on 12-02-2021 Calcium [Mass/Vol] 8.7 mg/dL 8.5-10.1 [facility] Work Phone: Serum or plasma creatinine m easurement (mass/volume)on 12-02-2021 Creatinine [Mass/Vol] 1.40 mg/dL 0.70-1.30 [facility] Work Phone: Comment on above: The validity of the calculated GFR & GFRAA in patients over 70 years has not been determined. Clinical correlation is essential. Serum or plasma urea nitroge n measurement (mass/volume)on 12-02-2021 Urea nitrogen [Mass/Vol] 26 mg/dL 7-18 [facility] Work Phone: Thin prep Papanicolaou smear with manual screeningon 12-02-2021 Thin prep Papanicolaou smear with manual screening 8 5-15 [facility] Work Phone: Absolute lymphocyte counton 12-01-2021 Lymphocytes Auto (Unsp spec) [#/Vol] 1.68 10*3/uL 0.83-4.51 [facility] Work Phone: Basophil percentageon 2021 Basophils/100 WBC (Bld) 0.6 % 0-1 [facility] Work Phone: Chloride [Moles/Vol] 102 mmol/L 98-107 [facility] [place] Work Phone: Eosinophils/100 WBC (Bld) 0.3 % 0-5 [facility] Work Phone: Glucose [Mass/Vol] 88 mg/dL 74-106 [facility] Work Phone: Neutrophils (Bld) [#/Vol] 7.5 10*3/uL 2.0-7.7 [facility] Work Phone: Neutrophils/100 WBC (Bld) 66.7 % 47-70 [facility] Work Phone: Potassium [Moles/Vol] 5.4 mmol/L 3.5-5.1 [facility] Work Phone: Sodium [Moles/Vol] 137 mmol/L 136-145 [facility] Work Phone: WBC (Bld) [#/Vol] 11.2 10*3/uL 4.4-11.0 [facility] Work Phone: Blood erythrocytes count (nu mber/volume)on 12-01-2021 RBC (Bld) [#/Vol] 6.61 10*6/uL 4.6-6.2 [facility] Work Phone: Blood hemoglobin measurement (mass/volume)on 12-01-2021 Hemoglobin (Bld) [Mass/Vol] 16.7 g/dL 13.0-16.5 [facility] Work Phone: Blood lymphocytes/100 leukoc yteson 12-01-2021 Lymphocytes/100 WBC (Bld) 15.0 % 19-41 [facility] Work Phone: Blood manual differential co mment interpretation (narrative result)on 12-01-2021 Manual differential comment Omar (Bld) [Interp] See comment [facility] Work Phone: Comment on above: MONOCYTOSIS NOTED Blood monocytes/100 leukocyt eson 12-01-2021 Monocytes/100 WBC (Bld) 17.0 % 0-10 [facility] Work Phone: Blood platelet adequacy dete ction by light microscopyon 12-01-2021 Platelets LM Ql (Bld) ADEQUATE ADEQ [facility] Work Phone: Blood platelet mean volumeon 12-01-2021 Platelet mean volume (Bld) [Entitic vol] 11.5 fL 6.2-12.0 [facility] Work Phone: Determination of erythrocyte mean corpuscular volume (MCV)on 12-01-2021 MCV (RBC) [Entitic vol] 80.0 fL 80-94 [facility] Work Phone: Erythrocyte sedimentation ra gabe 12-01-2021 ESR (Bld) [Velocity] 25 mm/h 0-20 [facility] [place] Work Phone: Hematocrit Auto (Bld) [Volum e fraction]on 12-01-2021 Hematocrit (Bld) [Volume fraction] 52.9 % 40-54 [facility] Work Phone: INR in Blood by Coagulation assayon 12-01-2021 INR Coag (Bld) [Relative time] 1.1 {INR} [facility] Work Phone: Laboratory - Chemistry and C hemistry - challengeon 12-01-2021 CO2 [Moles/Vol] 25.0 mmol/L 21.0-32.0 [facility] Work Phone: Urea nitrogen/Creatinine [Mass ratio] 14.0 mg/mg 10-20 [facility] Work Phone: Laboratory - Coagulationon 0 12-01-2021 PT Coag (PPP) [Time] 14.3 s 11.7-14.9 [facility] [place] Work Phone: Laboratory - Hematology and Cell countson 12-01-2021 [facility]is[facility] Erythrocyte distribution width (RBC) [Entitic vol] 57.8 fL 35.1-43.9 [facility] Work Phone: Erythrocyte distribution width (RBC) [Ratio] 21.3 % 11.6-14.6 [facility] Work Phone: Immature granulocytes/100 WBC (Bld) 0.400 % 0.0-0.9 [facility] Work Phone: Comment on above: IG% - Immature Granu locytes (promyelocytes, myelocytes and metamyelocytes) > 1% indicates that a LEFT SHIFT is Present. MCH (RBC) [Entitic mass] 25.3 pg 27.0-32.0 [facility] Work Phone: Nucleated RBC/100 WBC (Bld) [Ratio] 0 % 0-5 [facility] Work Phone: MCHC Auto (RBC) [Mass/Vol]on 12-01-2021 MCHC (RBC) [Mass/Vol] 31.6 g/dL 32-36 [facility] Work Phone: No Panel Informationon 12-01 Estimated Creatinine Clearance Calc 71.54 ml/min [facility] Work Phone: Estimated GFR (MDRD) Amer 78 mL/min >60 [facility] Work Phone: Comment on above: GFR Calc Estimated GFR (MDRD) Non-Af Amer 65 mL/min >60 [facility] Work Phone: Comment on above: Non- GFR Calc Platelets bldon 12-01-2021 Platelets (Bld) [#/Vol] 185 10*3/uL 150-450 [facility] Work Phone: RBC morphologyon 12-01-2021 RBC morphology finding Nom (Bld) N CHROM NORMAL NORM C&C [facility] Work Phone: Review by pathologiston 11-18 Pathologist review Omar (Unsp spec) [Interp] Meche colton [facility] Work Phone: Pathologist review Omar (Unsp spec) [Interp] Reviewed [facility] Work Phone: Comment on above: Previous reported re sult: Meche segura Edited by: RGOMANOHAR on 12/02/21:1509Leukocytosis. PolycythemiaClinical correlation necessary.Jostin Coello M.D. 12/02/21 AMENDED REPORT 12/02/21 1509 PATH REV previously reported as: Meche segura Serum or plasma C reactive p rotein measurement (mass/volume)on 12-01-2021 CRP [Mass/Vol] 98.70 mg/L 0.0-3.0 [facility] Work Phone: Comment on above: C-Reactive Protein ( CRP) provides useful information for thediagnosis, therapy and monitoring of inflammatory processesand associated diseases. For the evaluation of Relative Riskfor Cardiovascular Disease, a High Sensitivity CRP (HSCRP)should be ordered. Serum or plasma calcium jamey urement (mass/volume)on 12-01-2021 Calcium [Mass/Vol] 9.0 mg/dL 8.5-10.1 [facility] Work Phone: Serum or plasma creatinine m easurement (mass/volume)on 12-01-2021 Creatinine [Mass/Vol] 1.21 mg/dL 0.70-1.30 [facility] Work Phone: Comment on above: The validity of the calculated GFR & GFRAA in patients over 70 years has not been determined. Clinical correlation is essential. Serum or plasma urea nitroge n measurement (mass/volume)on 12-01-2021 Urea nitrogen [Mass/Vol] 17 mg/dL 7-18 [facility] Work Phone: Serum or plasma uric acid me asurement (mass/volume)on 12-01-2021 Urate [Mass/Vol] 9.3 mg/dL 3.5-7.2 [facility] Work Phone: Comment on above: The drugs N-Acetylcy steine and Metamizole may falsely depress this assay. Thin prep Papanicolaou smear with manual screeningon 12-01-2021 Thin prep Papanicolaou smear with manual screening 10 5-15 [facility] Work Phone: Laboratory - Coagulationon 0 09-06-2021 INR Coag (Bld) [Relative time] 1.2 {INR} [facility] Work Phone: Comment on above: Critical Value > 4.0 Whole blood prothrombin time on 09-06-2021 PT Coag (Bld) [Time] 14.7 s 11.7-14.9 [facility] [place] Work Phone: Laboratory - Coagulationon 0 07-19-2021 INR Coag (Bld) [Relative time] 1.0 {INR} [facility] Work Phone: Comment on above: Critical Value > 4.0 Whole blood prothrombin time on 07-19-2021 PT Coag (Bld) [Time] 12.7 s 11.7-14.9 [facility] [place] Work Phone: Laboratory - Coagulationon 0 06-07-2021 INR Coag (Bld) [Relative time] 1.1 {INR} [facility] Work Phone: Comment on above: Critical Value > 4.0 Whole blood prothrombin time on 06-07-2021 PT Coag (Bld) [Time] 13.9 s 11.7-14.9 [facility] [place] Work Phone: Vital Signs Date Time Vital Sign Value Performing Clinician Facility 01-10-2025 13:58-0400 Diastolic Blood Pressure Non-Invasive 89 mm[Hg] AKSHAT SAWYER ASSISTANT HALL DIRECTOR-RASPBERRY CHECKER [facility] 01-10-2025 13:58-0400 Heart rate 67 /min AKSHAT SAWYER ASSISTANT HALL DIRECTOR-RASPBERRY CHECKER [facility] 01-10-2025 13:58-0400 Systolic Blood Pressure Non-Invasive 143 mm[Hg] AKSHAT SAWYER ASSISTANT HALL DIRECTOR-RASPBERRY CHECKER [facility] 01-10-2025 13:52-0400 Diastolic Blood Pressure Non-Invasive 108 mm[Hg] AKSHAT SAWYER ASSISTANT HALL DIRECTOR-RASPBERRY CHECKER [facility] 01-10-2025 13:52-0400 Heart rate 78 /min AKSHAT SAWYER ASSISTANT HALL DIRECTOR-RASPBERRY CHECKER [facility] 01-10-2025 13:52-0400 Systolic Blood Pressure Non-Invasive 173 mm[Hg] AKSHAT SAWYER ASSISTANT HALL DIRECTOR-RASPBERRY CHECKER [facility] 01-10-2025 13:44-0400 Diastolic Blood Pressure Non-Invasive 117 mm[Hg] AKSHAT SAWYER ASSISTANT HALL DIRECTOR-RASPBERRY CHECKER [facility] 01-10-2025 13:44-0400 Heart rate 84 /min AKSHAT SAWYER ASSISTANT HALL DIRECTOR-RASPBERRY CHECKER [facility] 01-10-2025 13:44-0400 Systolic Blood Pressure Non-Invasive 176 mm[Hg] AKSHAT SAWYER ASSISTANT HALL DIRECTOR-RASPBERRY CHECKER [facility] 01-10-2025 12:09-0400 Blood Pressure Cuff Size AKSHAT SAWYER ASSISTANT HALL DIRECTOR-RASPBERRY CHECKER [facility] 01-10-2025 12:09-0400 Blood Pressure Location AKSHAT SAWYER ASSISTANT HALL DIRECTOR-RASPBERRY CHECKER [facility] 01-10-2025 12:09-0400 Blood Pressure Method AKSHAT SAWYER ASSISTANT HALL DIRECTOR-RASPBERRY CHECKER [facility] 01-10-2025 12:09-0400 Body height 180 cm AKSHAT SAWYER ASSISTANT HALL DIRECTOR-RASPBERRY CHECKER [facility] 01-10-2025 12:09-0400 Body temperature 98.78 [degF] AKSHAT SAWYER ASSISTANT HALL DIRECTOR-RASPBERRY CHECKER [facility] 01-10-2025 12:09-0400 Body weight 159 kg AKSHAT SAWYER ASSISTANT HALL DIRECTOR-RASPBERRY CHECKER [facility] 01-10-2025 12:09-0400 Body weight 49.07 kg/m2 AKSHAT SAWYER ASSISTANT HALL DIRECTOR-RASPBERRY CHECKER [facility] 01-10-2025 12:09-0400 Respiratory rate 16 /min AKSHAT SAWYER ASSISTANT HALL DIRECTOR-RASPBERRY CHECKER [facility] 03-22-2024 13:00-0500 Diastolic Blood Pressure Non-Invasive 91 mm[Hg] BEN AUGUST MD [facility] 03-22-2024 13:00-0500 Heart rate 74 /min BEN AUGUST MD [facility] 03-22-2024 13:00-0500 Respiratory rate 14 /min BEN AUGUST MD [facility] 03-22-2024 13:00-0500 Systolic Blood Pressure Non-Invasive 156 mm[Hg] BEN AUGUST MD [facility] 03-22-2024 12:54-0500 Diastolic Blood Pressure Non-Invasive 80 mm[Hg] BEN AUGUST MD [facility] 03-22-2024 12:54-0500 Heart rate 76 /min BEN AUGUST MD [facility] 03-22-2024 12:54-0500 Respiratory rate 16 /min BEN AUGUST MD [facility] 03-22-2024 12:54-0500 Systolic Blood Pressure Non-Invasive 168 mm[Hg] BEN AUGUST MD [facility] 03-22-2024 12:49-0500 Diastolic Blood Pressure Non-Invasive 80 mm[Hg] BEN AUGUST MD [facility] 03-22-2024 12:49-0500 Heart rate 78 /min BEN AUGUST MD [facility] 03-22-2024 12:49-0500 Respiratory rate 16 /min BEN AUGUST MD [facility] 03-22-2024 12:49-0500 Systolic Blood Pressure Non-Invasive 170 mm[Hg] BEN AUGUST MD [facility] 03-22-2024 11:51-0500 Blood Pressure Location BEN AUGUST MD [facility] 03-22-2024 11:51-0500 Body height 70.9 cm BEN AUGUST MD [facility] 03-22-2024 11:51-0500 Body temperature 98.06 [degF] BEN AUGUST MD [facility] 03-22-2024 11:51-0500 Body weight 153.5 kg BEN AUGUST MD [facility] 03-22-2024 11:51-0500 Body weight 305.36 kg/m2 BEN AUGUST MD [facility] 09-23-2023 15:52-0400 Blood Pressure Cuff Size ZEFERINO COLORADO DO [facility] 09-23-2023 15:52-0400 Blood Pressure Location ZEFERINO COLORADO DO [facility] 09-23-2023 15:52-0400 Blood Pressure Method ZEFERINO Macdonald [facility] 09-23-2023 15:52-0400 Body temperature 98.6 [degF] ZEFERINO COLORADO DO [facility] 09-23-2023 15:52-0400 Diastolic Blood Pressure Non-Invasive 70 mm[Hg] ZEFERINO FAUSTINT DO [facility] 09-23-2023 15:52-0400 Heart rate 55 /min ZEFERINO FAUSTINT DO [facility] 09-23-2023 15:52-0400 Respiratory rate 18 /min [facility] 09-23-2023 15:52-0400 Systolic Blood Pressure Non-Invasive 125 mm[Hg] [facility]INO [facility] 03-28-2023 13:12-0500 Body temperature 96.8 [degF] ANTHONY FERNÁNDEZ MD [address] 03-28-2023 13:12-0500 Diastolic Blood Pressure Non-Invasive 90 mm[Hg] ANTHONY FERNÁNDEZ MD [address] [place] [id number] 03-28-2023 13:12-0500 Heart rate 50 /min ANTHONY FERNÁNDEZ MD [address] [place] [id number] 03-28-2023 13:12-0500 Respiratory rate 18 /min ANTHONY FERNÁNDEZ MD [facility] 03-28-2023 13:12-0500 Systolic Blood Pressure Non-Invasive 160 mm[Hg] ANTHONY FERNÁNDEZ MD [address] [place] [id number] 03-28-2023 12:05-0500 Body temperature 96.26 [degF] ANTHONY FERNÁNDEZ MD [address] [place] [id number] 03-28-2023 12:05-0500 Diastolic Blood Pressure Non-Invasive 94 mm[Hg] ANTHONY FERNÁNDEZ MD [address] [place] [id number] 03-28-2023 12:05-0500 Heart rate 59 /min ANTHONY FERNÁNDEZ MD [address] [place] [id number] 03-28-2023 12:05-0500 Respiratory rate 16 /min ANTHONY FERNÁNDEZ MD [address] [place] [id number] 03-28-2023 12:05-0500 Systolic Blood Pressure Non-Invasive 162 mm[Hg] ANTHONY FERNÁNDEZ MD [address] [place] [id number] 03-28-2023 11:53-0500 Body temperature 96.98 [degF] ANTHONY FERNÁNDEZ MD [address] [place] [id number] 03-28-2023 11:53-0500 Diastolic Blood Pressure Non-Invasive 82 mm[Hg] ANTHONY FERNÁNDEZ MD [address] [place] [id number] 03-28-2023 11:53-0500 Heart rate 58 /min ANTHONY FERNÁNDEZ MD [address] [place] [id number] 03-28-2023 11:53-0500 Mean blood pressure 102 mm[Hg] ANTHONY FERNÁNDEZ MD [address] [place] [id number] 03-28-2023 11:53-0500 Respiratory rate 18 /min ANTHONY FERNÁNDEZ MD [address] [place] [id number] 03-28-2023 11:53-0500 Systolic Blood Pressure Non-Invasive 150 mm[Hg] ANTHONY FERNÁNDEZ MD [address] [place] [id number] 03-28-2023 11:39-0500 Heart rate 58 /min ANTHONY FERNÁNDEZ MD [address] [place] [id number] 03-28-2023 11:39-0500 Mean blood pressure 100 mm[Hg] ANTHONY FERNÁNDEZ MD [address] [place] [id number] 03-28-2023 11:24-0500 Heart rate 61 /min ANTHONY FERNÁNDEZ MD [address] [place] [id number] 03-28-2023 11:24-0500 Mean blood pressure 97 mm[Hg] ANTHONY FERNÁNDEZ MD [address] [place] [id number] 03-28-2023 11:11-0500 Heart rate 62 /min ANTHONY FERNÁNDEZ MD [address] [place] [id number] 03-28-2023 10:54-0500 Body temperature 97.16 [degF] ANTHONY FERNÁNDEZ MD [address] [place] [id number] 03-28-2023 10:50-0500 Respiratory Rate - Anes 8 br/min ANTHONY FERNÁNDEZ MD [address] [place] [id number] 03-28-2023 10:45-0500 Respiratory Rate - Anes 9 br/min ANTHONY FERNÁNDEZ MD [address] [place] [id number] 03-28-2023 10:40-0500 Respiratory Rate - Anes 8 br/min ANTHONY FERNÁNDEZ MD [address] [place] [id number] 03-28-2023 10:35-0500 Body temperature 97.11 [degF] ANTHONY FERNÁNDEZ MD [address] [place] [id number] 03-28-2023 10:30-0500 Body temperature 97.09 [degF] ANTHONY FERNÁNDEZ MD [address] [place] [id number] 03-28-2023 10:25-0500 Body temperature 97.05 [degF] ANTHONY FERNÁNDEZ MD [address] [place] [id number] 03-28-2023 06:29-0500 Body height 180.3 cm ANTHONY FERNÁNDEZ MD [address] [place] [id number] 03-28-2023 06:29-0500 Body weight 153.4 kg ANTHONY FERNÁNDEZ MD [address] [place] [id number] 03-28-2023 06:29-0500 Heart rate 46 /min ANTHONY FERNÁNDEZ MD [facility] 01-09-2023 13:02-0400 Diastolic Blood Pressure Non-Invasive 115 1 POLO ROD MD [facility] 01-09-2023 13:02-0400 Heart rate 45 /min POLO ROD MD [facility] 01-09-2023 13:02-0400 Systolic Blood Pressure Non-Invasive 129 1 POLO ROD MD [facility] 01-09-2023 12:57-0400 Diastolic Blood Pressure Non-Invasive 91 1 POLO ROD MD [facility] 01-09-2023 12:57-0400 Heart rate 44 /min POLO ROD MD [facility] 01-09-2023 12:57-0400 Systolic Blood Pressure Non-Invasive 130 1 POLO ROD MD [facility] 01-09-2023 12:52-0400 Diastolic Blood Pressure Non-Invasive 91 1 POLO ROD MD [facility] 01-09-2023 12:52-0400 Heart rate 48 /min POLO ROD MD [facility] 01-09-2023 12:52-0400 Systolic Blood Pressure Non-Invasive 124 1 POLO ROD MD [facility] 01-09-2023 12:45-0400 Respiratory Rate - Anes 23 br/min POLO ROD MD [facility] 01-09-2023 12:40-0400 Respiratory Rate - Anes 20 br/min POLO ROD MD [facility] 01-09-2023 12:35-0400 Respiratory Rate - Anes 22 br/min POLO ROD MD [facility] 01-09-2023 11:29-0400 Body height 185 cm POLO ROD MD [facility] 01-09-2023 11:29-0400 Body weight 152.2 kg POLO ROD MD [facility] 01-09-2023 11:29-0400 Body weight 44.47 kg/m2 POLO ROD MD [facility] 01-09-2023 10:53-0400 Heart rate 51 /min POLO ROD MD [facility] 01-09-2023 10:53-0400 Respiratory rate 17 /min POLO ROD MD [facility] 10-03-2022 10:45-0400 Diastolic Blood Pressure Non-Invasive 87 1 BRENT VILLATORO ASSISTANT HALL DIRECTOR-RASPBERRY CHECKER [facility] 10-03-2022 10:45-0400 Heart rate 43 /min BRENT VILLATORO ASSISTANT HALL DIRECTOR-RASPBERRY CHECKER [facility] 10-03-2022 10:45-0400 Respiratory rate 18 /min BRENT VILLATORO ASSISTANT HALL DIRECTOR-RASPBERRY CHECKER [facility] 10-03-2022 10:45-0400 Systolic Blood Pressure Non-Invasive 169 1 BRENT SHAUNA ASSISTANT HALL DIRECTOR-RASPBERRY CHECKER [facility] 10-03-2022 10:23-0400 Body height 185 cm BRENT VILLATORO ASSISTANT HALL DIRECTOR-RASPBERRY CHECKER [facility] 10-03-2022 10:23-0400 Body weight 161.6 kg BRENT VILLATORO ASSISTANT HALL DIRECTOR-RASPBERRY CHECKER [facility] 10-03-2022 10:23-0400 Body weight 47.22 kg/m2 BRENT VILLATORO ASSISTANT HALL DIRECTOR-RASPBERRY CHECKER [facility] 10-03-2022 10:10-0400 Body height 185 cm BRENT VILLATORO ASSISTANT HALL DIRECTOR-RASPBERRY CHECKER [facility] 10-03-2022 10:10-0400 Body temperature 96.8 [degF] BRENT VILLATORO ASSISTANT HALL DIRECTOR-RASPBERRY CHECKER [facility] 10-03-2022 10:10-0400 Body weight 161.6 kg BRENT VILLATORO ASSISTANT HALL DIRECTOR-RASPBERRY CHECKER [facility] 10-03-2022 10:10-0400 Diastolic Blood Pressure Non-Invasive 75 1 BRENT VILLATORO ASSISTANT HALL DIRECTOR-RASPBERRY CHECKER [facility] 10-03-2022 10:10-0400 Heart rate 45 /min BRENT VILLATORO ASSISTANT HALL DIRECTOR-RASPBERRY CHECKER [facility] 10-03-2022 10:10-0400 Respiratory rate 19 /min BRENT VILLATORO ASSISTANT HALL DIRECTOR-RASPBERRY CHECKER [facility] 10-03-2022 10:10-0400 Systolic Blood Pressure Non-Invasive 129 1 BRENT VILLATORO ASSISTANT HALL DIRECTOR-RASPBERRY CHECKER [facility] 08-01-2022 11:45-0400 Diastolic Blood Pressure Non-Invasive 78 1 POLO ROD MD [facility] 08-01-2022 11:45-0400 Heart rate 56 /min POLO ROD MD [facility] 08-01-2022 11:45-0400 Systolic Blood Pressure Non-Invasive 110 1 POLO ROD MD [facility] 08-01-2022 11:29-0400 Body temperature 96.8 [degF] POLO ROD MD [facility] 08-01-2022 11:29-0400 Heart rate 56 /min POLO ROD MD [facility] 08-01-2022 09:34-0400 Body temperature 97.34 [degF] POLO ROD MD [facility] 08-01-2022 09:34-0400 Diastolic Blood Pressure Non-Invasive 72 1 POLO ROD MD [facility] 08-01-2022 09:34-0400 Heart rate 71 /min POLO ROD MD [facility] 08-01-2022 09:34-0400 Respiratory rate 14 /min POLO ROD MD [facility] 08-01-2022 09:34-0400 Systolic Blood Pressure Non-Invasive 122 1 POLO ROD MD [facility] 08-01-2022 09:29-0400 Body height 180 cm POLO ROD MD [facility] 08-01-2022 09:29-0400 Body weight 145 kg POLO ROD MD [facility] 08-01-2022 09:29-0400 Body weight 44.75 kg/m2 POLO ROD MD [facility] 05-09-2022 12:45-0500 Body temperature 98.4 [degF] [facility] 05-09-2022 12:45-0500 Diastolic blood pressure 71 mm[Hg] [facility] 05-09-2022 12:45-0500 Heart rate 48 /min [facility] 05-09-2022 12:45-0500 Respiratory rate 18 /min [facility] 05-09-2022 12:45-0500 SaO2% (BldA) [Mass fraction] 96 % [facility] 05-09-2022 12:45-0500 Systolic blood pressure 115 mm[Hg] [facility] 05-09-2022 11:09-0500 Body height 180.34 cm [facility] 05-09-2022 11:09-0500 Body mass index (BMI) [Ratio] 48.3 kg/m2 [facility] 05-09-2022 11:09-0500 Body weight 157.2 kg [facility] 02-07-2022 09:45-0500 Body temperature 98.2 [degF] Dr. aGgandeep Barclay Work Phone: [facility] 02-07-2022 09:45-0500 Diastolic blood pressure 79 mm[Hg] Dr. Gagandeep Barclay Work Phone: [facility] 02-07-2022 09:45-0500 Heart rate 58 /min Dr. Gagandeep Barclay Work Phone: [facility] 02-07-2022 09:45-0500 Respiratory rate 18 /min Dr. Gagandeep Barclay Work Phone: [facility] 02-07-2022 09:45-0500 SaO2% (BldA) [Mass fraction] 95 % Dr. Gagandeep Barclay Work Phone: [facility] 02-07-2022 09:45-0500 Systolic blood pressure 117 mm[Hg] Dr. Gagandeep Barclay Work Phone: [facility] 02-07-2022 09:35-0500 Inhaled oxygen flow rate 8 L/min Dr. Gagandeep Barclay Work Phone: [facility] 02-07-2022 07:42-0500 Body height 185.[address] Gagandeep Barclay Work Phone: [facility] Work Phone: 02-07-2022 07:42-0500 Body mass index (BMI) [Ratio] 45.9 kg/m2 Dr. Gagandeep Barclay Work Phone: [facility] 02-07-2022 07:42-0500 Body weight [address] Gagandeep Barclay Work Phone: [facility] 12-28-2021 14:54-0400 Body mass index (BMI) [Ratio] 39 kg/m2 Dr. Gagandeep Barclay Work Phone: [facility] Work Phone: 12-28-2021 14:54-0400 Body weight 134.[address] Gagandeep Barclay Work Phone: [facility] Work Phone: 12-28-2021 14:54-0400 Diastolic blood pressure 83 mm[Hg] Dr. Gagandeep Barclay Work Phone: [facility] Work Phone: 12-28-2021 14:54-0400 Heart rate 56 /min Dr. Gagandeep Barclay Work Phone: [facility] Work Phone: 12-28-2021 14:54-0400 Respiratory rate 16 /min Dr. Gagandeep Barclay Work Phone: [facility] Work Phone: 12-28-2021 14:54-0400 SaO2% (BldA) [Mass fraction] 99 % Dr. Gagandeep Barclay Work Phone: [facility] Work Phone: 12-28-2021 14:54-0400 Systolic blood pressure 130 mm[Hg] Dr. Gagandeep Barclay Work Phone: [facility] Work Phone: 12-20-2021 12:17-0400 Body temperature 98.5 [degF] Dr. Gagandeep Barclay Work Phone: [facility] Work Phone: 12-20-2021 12:17-0400 Diastolic blood pressure 67 mm[Hg] Dr. Gagandeep Barclay Work Phone: [facility] Work Phone: 12-20-2021 12:17-0400 Heart rate 52 /min Dr. Gagandeep Barclay Work Phone: [facility] Work Phone: 12-20-2021 12:17-0400 Respiratory rate 16 /min Dr. Gagandeep Barclay Work Phone: [facility] Work Phone: 12-20-2021 12:17-0400 SaO2% (BldA) [Mass fraction] 100 % Dr. Gagandeep Barclay Work Phone: [facility] Work Phone: 12-20-2021 12:17-0400 Systolic blood pressure 121 mm[Hg] Dr. Gagandeep Barclay Work Phone: [facility] Work Phone: 12-20-2021 09:34-0400 Body mass index (BMI) [Ratio] 38.9 kg/m2 Dr. Gagandeep Barclay Work Phone: [facility] Work Phone: 12-20-2021 09:34-0400 Body weight 133.[address] Gagandeep Barclay Work Phone: [facility] Work Phone: 12-02-2021 15:00-0400 Body temperature 98.7 [degF] Dr. Gagandeep Barclay Work Phone: [facility] Work Phone: 12-02-2021 15:00-0400 Diastolic blood pressure 64 mm[Hg] Dr. Gagandeep Barclay Work Phone: [facility] Work Phone: 12-02-2021 15:00-0400 Heart rate 52 /min Dr. Gagandeep Barclay Work Phone: [facility] Work Phone: 12-02-2021 15:00-0400 Respiratory rate 16 /min Dr. Gagandeep Barclay Work Phone: [facility] Work Phone: 12-02-2021 15:00-0400 SaO2% (BldA) [Mass fraction] 93 % Dr. Gagandeep Barclay Work Phone: [facility] Work Phone: 12-02-2021 15:00-0400 Systolic blood pressure 115 mm[Hg] Dr. Gagandeep Barclay Work Phone: [facility] Work Phone: 12-01-2021 18:19-0400 Body height 185.[address] Gagandeep Barclay Work Phone: [facility] Work Phone: 12-01-2021 18:19-0400 Body mass index (BMI) [Ratio] 46.3 kg/m2 Dr. Gagandeep Barclay Work Phone: [facility] Work Phone: 12-01-2021 18:19-0400 Body weight 159.[address] Gagandeep Barclay Work Phone: [facility] Work Phone: 12-01-2021 17:48-0400 Body temperature 98.8 [degF] Dr. Gagandeep Barclay Work Phone: [facility] Work Phone: 12-01-2021 17:48-0400 Diastolic blood pressure 92 mm[Hg] Dr. Gagandeep Barclay Work Phone: [facility] Work Phone: 12-01-2021 17:48-0400 Heart rate 69 /min Dr. Gagandeep Barclay Work Phone: [facility] Work Phone: 12-01-2021 17:48-0400 Respiratory rate 16 /min Dr. Gagandeep Barclay Work Phone: [facility] Work Phone: 12-01-2021 17:48-0400 SaO2% (BldA) [Mass fraction] 97 % Dr. Gagandeep Barclay Work Phone: [facility] Work Phone: 12-01-2021 17:48-0400 Systolic blood pressure 188 mm[Hg] Dr. Gagandeep Barclay Work Phone: [facility] Work Phone: 12-01-2021 12:09-0400 Body height 185.[address] Gagandeep Barclay Work Phone: [facility] Work Phone: 12-01-2021 12:09-0400 Body mass index (BMI) [Ratio] 47.2 kg/m2 Dr. Gagandeep Barclay Work Phone: [facility] Work Phone: 12-01-2021 12:09-0400 Body weight 162.[address] Gagandeep Barclay Work Phone: [facility] Work Phone: 09-06-2021 11:28-0400 Body temperature 98.4 [degF] [facility] Work Phone: 09-06-2021 11:28-0400 Diastolic blood pressure 80 mm[Hg] [facility] Work Phone: 09-06-2021 11:28-0400 Heart rate 53 /min [facility] Work Phone: 09-06-2021 11:28-0400 Respiratory rate 16 /min [facility] Work Phone: 09-06-2021 11:28-0400 SaO2% (BldA) [Mass fraction] 97 % [facility] Work Phone: 09-06-2021 11:28-0400 Systolic blood pressure 159 mm[Hg] [facility] Work Phone: 09-06-2021 09:59-0400 Body height 180.34 cm [facility] Work Phone: 09-06-2021 09:59-0400 Body mass index (BMI) [Ratio] 50.4 kg/m2 [facility] Work Phone: 09-06-2021 09:59-0400 Body weight 164 kg [facility] Work Phone: 07-19-2021 08:40-0400 Body temperature 97.7 [degF] [facility] Work Phone: 07-19-2021 08:40-0400 Diastolic blood pressure 72 mm[Hg] [facility] Work Phone: 07-19-2021 08:40-0400 Heart rate 64 /min [facility] Work Phone: 07-19-2021 08:40-0400 Respiratory rate 16 /min [facility] Work Phone: 07-19-2021 08:40-0400 SaO2% (BldA) [Mass fraction] 99 % [facility] Work Phone: 07-19-2021 08:40-0400 Systolic blood pressure 111 mm[Hg] [facility] Work Phone: 07-19-2021 07:00-0400 Body mass index (BMI) [Ratio] 50 kg/m2 [facility] Work Phone: 07-19-2021 07:00-0400 Body weight 162.8 kg [facility] Work Phone: 06-07-2021 09:39-0400 Body temperature 99 [degF] [facility] Work Phone: 06-07-2021 09:39-0400 Diastolic blood pressure 65 mm[Hg] [facility] Work Phone: 06-07-2021 09:39-0400 Heart rate 62 /min [facility] Work Phone: 06-07-2021 09:39-0400 Respiratory rate 16 /min [facility] Work Phone: 06-07-2021 09:39-0400 SaO2% (BldA) [Mass fraction] 100 % [facility] Work Phone: 06-07-2021 09:39-0400 Systolic blood pressure 113 mm[Hg] [facility] Work Phone: 06-07-2021 08:12-0400 Body mass index (BMI) [Ratio] 49.6 kg/m2 [facility] Work Phone: 06-07-2021 08:12-0400 Body weight 161.4 kg [facility] Work Phone: Encounters Encounter Date Encounter Type Care Provider Facility Start: 01-10-2025 End: 01-10-2025 Minor Procedure AKSHAT SAWYER ASSISTANT HALL DIRECTOR-RASPBERRY CHECKER [facility] Start: 01-10-2025 End: 01-10-2025 ambulatory AKSHAT SAWYER ASSISTANT HALL DIRECTOR-RASPBERRY CHECKER Facility:[facility] Start: 09-23-2024 End: 09-23-2024 ambulatory GAGANDEEP BARCLAY DO Facility:[facility] Start: 09-23-2024 End: 09-23-2024 Patient encounter procedure GAGANDEEP BARCLAY DO [facility] Start: 09-23-2024 End: 09-23-2024 Well adult monitoring check done GAGANDEEP BRACLAY DO [facility] Start: 08-07-2024 End: 08-11-2024 ambulatory GAGANDEEP BARCLAY DO Facility:[facility] Start: 06-21-2024 End: 06-21-2024 ambulatory BRENT VILLATORO ASSISTANT HALL DIRECTOR-RASPBERRY CHECKER Facility:[facility] Start: 04-18-2024 End: 04-18-2024 ambulatory GAGANDEEP BARCLAY DO Facility[facility] Start: 04-18-2024 End: 04-18-2024 Patient encounter procedure GAGANDEEP BARCLAY DO [facility] Start: 04-15-2024 End: 04-15-2024 ambulatory GAGANDEEP BARCLAY DO Facility[facility] Start: 04-15-2024 End: 04-15-2024 Patient encounter procedure GAGANDEEP BARCLAY DO [facility] Start: 04-11-2024 End: 04-11-2024 ambulatory GAGANDEEP E BARCLAY DO Facility[facility] Start: 04-11-2024 End: 04-11-2024 Patient encounter procedure SAMANTHA RONY ASSISTANT HALL DIRECTOR-RASPBERRY CHECKER [facility] Start: 04-09-2024 End: 04-13-2024 ambulatory GAGANDEEP E BARCLAY DO Facility:[facility] Start: 04-09-2024 End: 04-13-2024 Encounter for general adult medical examination without abnormal findings GAGANDEEP E BARCLAY DO Facility:[facility] Start: 04-09-2024 End: 04-13-2024 Outreach Lab GAGANDEEP E BARCLAY DO [facility] Start: 03-22-2024 End: 03-22-2024 ambulatory GAGANDEEP E BARCLAY DO Facility:[facility] Start: 03-22-2024 End: 03-22-2024 Minor Procedure BEN AUGUST MD [facility] Start: 02-05-2024 End: 02-09-2024 ambulatory GAGANDEEP E BARCLAY DO Facility:[facility] Start: 01-11-2024 ambulatory [place] Barclay Facility: [facility] Start: 01-11-2024 End: 01-11-2024 ambulatory Gagandeep Barclay Facility:[facility] Start: 01-04-2024 ambulatory Efewongbe Oleghe Facili ty:[facility] Start: 01-01-2024 ambulatory [facility] Facility: [facility] Start: 01-01-2024 End: 01-01-2024 ambulatory Gagandeep Barclay Facility:[facility] Start: 12-28-2023 ambulatory Efewongbe Oleghe Facili ty:[facility] Start: 12-19-2023 End: 12-19-2023 ambulatory Gagandeep Barclay Facility:[facility] Start: 12-18-2023 End: 12-18-2023 ambulatory Gagandeep Barclay Facility:[facility] Start: 12-14-2023 ambulatory Gagandeep Barclay Facility: [facility] Start: 12-07-2023 ambulatory Gagandeep Barclay Facility: [facility] Start: 11-30-2023 ambulatory Gagandeep Barclay Facility: [facility] Start: 11-23-2023 ambulatory Gagandeep Barclay Facility: [facility] Start: 11-22-2023 ambulatory GAGANDEEP BARCLAY DO Faci [facility]ity[facility] Start: 11-22-2023 End: 11-22-2023 Patient encounter procedure GAGANDEEP BARCLAY DO [facility] Start: 11-22-2023 End: 11-22-2023 Well adult monitoring check done GAGANDEEP BARCLAY DO [facility] Start: 11-16-2023 End: 11-18-2023 ambulatory Gagandeep Barclay Facility:[facility] Start: 11-09-2023 ambulatory Gagandeep Barclay Facility: [facility] Start: 11-06-2023 ambulatory GAGANDEEP BARCLAY DO Faci lity:[facility] Start: 10-30-2023 End: 10-30-2023 ambulatory BENEDICT HOYT MD Facility:[facility] Start: 10-30-2023 End: 10-30-2023 Patient encounter procedure BENEDICT HOYT MD [facility] Start: 10-26-2023 ambulatory Gagandeep Barclay Facility: [facility] Start: 10-21-2023 End: 10-21-2023 ambulatory GAGANDEEP BARCLAY DO Facility:[facility] Start: 10-21-2023 End: 10-21-2023 Patient encounter procedure GAGANDEEP BARCLAY DO [facility] Start: 10-20-2023 ambulatory GAGANDEEP BARCLAY DO Faci lity:[facility] Start: 10-20-2023 Encounter for genera l adult medical examination without abnormal findings GAGANDEEP BARCLAY DO Facility:[facility] Start: 10-20-2023 End: 10-24-2023 Outreach Lab GAGANDEEP BARCLAY DO [facility] Start: 09-23-2023 End: 09-23-2023 Emergency department patient visit ZEFERINO COLORADO DO [facility] Start: 09-19-2023 End: 09-23-2023 ambulatory GAGANDEEP E BARCLAY DO [facility] Start: 09-19-2023 End: 09-23-2023 Outreach Lab GAGANDEEP E BARCLAY DO [facility] Start: 05-24-2023 End: 05-24-2023 ambulatory GAGANDEEP E BARCLAY DO [facility] Start: 05-24-2023 End: 05-24-2023 Patient encounter procedure BRENT VILLATORO ASSISTANT HALL DIRECTOR-RASPBERRY CHECKER [facility] Start: 04-19-2023 End: 04-19-2023 ambulatory GAGANDEEP E BARCLAY DO [facility] Start: 04-19-2023 End: 04-19-2023 Patient encounter procedure BRENT VILLATORO ASSISTANT HALL DIRECTOR-RASPBERRY CHECKER [facility] Start: 04-17-2023 End: 04-17-2023 ambulatory GAGANDEEP E BARCLAY DO Facility:[facility] Start: 04-14-2023 End: 04-18-2023 ambulatory GAGANDEEP E BARCLAY DO Facility:[facility] Start: 04-14-2023 End: 04-14-2023 ambulatory GAGANDEEP E BARCLAY DO Facility:[facility] Start: 04-12-2023 End: 04-12-2023 ambulatory GAGANDEEP E BARCLAY DO Facility:[facility] Start: 04-12-2023 End: 04-12-2023 Patient encounter procedure MARS ESQUIVEL ASSISTANT HALL DIRECTOR-RASPBERRY CHECKER [facility] Start: 03-28-2023 End: 03-28-2023 ambulatory AZALIA [place] MD Facility:[facility] Start: 03-28-2023 End: 03-28-2023 SAME DAY STAY ANTHONY FERNÁNDEZ MD [facility] Start: 03-28-2023 End: 03-28-2023 Well adult monitoring check done ANTHONY FERNÁNDEZ MD [facility] Start: 03-24-2023 End: 03-24-2023 ambulatory Gagandeep Barclay Facility:[facility] Start: 03-22-2023 End: 03-22-2023 ambulatory GAGANDEEP E BARCLAY DO [facility] Start: 03-15-2023 End: 03-15-2023 ambulatory GAGANDEEP E BARCLAY DO Facility:[facility] Start: 03-15-2023 End: 03-15-2023 ambulatory GAGANDEEP E BARCLAY DO Facility:[facility] Start: 03-09-2023 End: 03-09-2023 ambulatory GAGANDEEP E BARCLAY DO [facility] Start: 02-15-2023 End: 02-15-2023 ambulatory BRENT VILLATORO ASSISTANT HALL DIRECTOR-RASPBERRY CHECKER Facility:[facility] Start: 02-15-2023 End: 02-15-2023 Patient encounter procedure BRENT VILLATORO ASSISTANT HALL DIRECTOR-RASPBERRY CHECKER [facility] Start: 02-13-2023 End: 02-13-2023 ambulatory GAGANDEEP E BARCLAY DO Facility:[facility] Start: 02-13-2023 End: 02-13-2023 Patient encounter procedure ANTHONY FERNÁNDEZ MD [facility] Start: 01-16-2023 End: 01-16-2023 ambulatory POLO ROD MD Facility[facility] Start: 01-16-2023 End: 01-16-2023 Patient encounter procedure POLO ROD MD [facility] Start: 01-09-2023 End: 01-09-2023 ambulatory POLO ROD MD Facility[facility] Start: 01-09-2023 End: 01-09-2023 SAME DAY STAY POLO ROD MD [facility] Start: 12-21-2022 End: 12-21-2022 ambulatory BRENT VILLATORO ASSISTANT HALL DIRECTOR-RASPBERRY CHECKER Facility:[facility] Start: 11-23-2022 End: 11-23-2022 Patient encounter procedure BRENT VILLAOTRO ASSISTANT HALL DIRECTOR-RASPBERRY CHECKER [facility] Start: 10-03-2022 End: 10-03-2022 SAME DAY STAY BRENT VILLATORO ASSISTANT HALL DIRECTOR-RASPBERRY CHECKER [facility] Start: 08-24-2022 End: 08-24-2022 Patient encounter procedure BRENT VILLATORO ASSISTANT HALL DIRECTOR-RASPBERRY CHECKER [facility] Start: 08-01-2022 End: 08-01-2022 SAME DAY STAY POLO ROD MD [facility] Start: 07-20-2022 End: 07-20-2022 Patient encounter procedure BRENT VILLATORO ASSISTANT HALL DIRECTOR-RASPBERRY CHECKER [facility] Start: 05-23-2022 End: 05-23-2022 Patient encounter procedure GAGANDEEP BARCLAY DO [facility] Start: 05-09-2022 End: 05-09-2022 [facility] Start: 05-09-2022 End: 05-09-2022 ambulatory [facility] Work Phone: Start: 02-07-2022 End: 02-07-2022 Admission to same day surgery center Dr. Gagandeep Barclay [facility] Start: 02-07-2022 End: 02-07-[address] Gagandeep Barclay Work Phone: [facility] Work Phone: Start: 12-28-2021 End: 12-28-[address] Gagandeep Barclay Work Phone: [facility] Start: 12-20-2021 End: 12-20-2021 Admission to same day surgery center Dr. Gagandeep Barclay Work Phone: [facility] Start: 12-07-2021 End: 12-07-2021 Patient encounter procedure GAGANDEEP BARCLAY DO [facility] Start: 12-02-2021 Non-patient / Non-visit Dr. Charlie Barclay Work Phone: [facility] Start: 12-01-2021 End: 12-02-2021 Evaluation and management of inpatient Dr. Gagandeep Barclay Work Phone: [facility] 3 Start: 12-01-2021 End: 12-02-[address] Gagandeep Barclay Work Phone: [facility] Work Phone: Start: 12-01-2021 Non-patient / Non-visit Dr. Charlie Barclay Work Phone: [facility] Start: 11-23-[address] Gagandeep Barclay Work Phone: [facility] Start: 09-06-2021 End: 09-06-2021 Admission to same day surgery center [facility] Start: 07-19-2021 End: 07-19-2021 Admission to same day surgery [facility] Start: 06-07-2021 End: 06-07-2021 Admission to same day surgery [facility] Start: 04-07-2014 End: 04-07-2014 Admission to establishment Georgia Salter Work Phone: [facility] Start: 04-07-2014 ambulatory Georgia Gonzales Work Phone: PreAdmission Testing Procedures Date Procedure Procedure Detail Performing Clinician Start: 01-10-2025 PM Inj Spine L/S [facility] 1 AKSHAT SAWYER ASSISTANT HALL DIRECTOR-RASPBERRY CHECKER Comment on above: auto-populated from documented surgical case Start: 06-21-2024 PM Inj Spine L/S [facility] SN 1 GAGANDEEP BARCLAY DO Comment on above: auto-populated from documented surgical case Start: 06-21-2024 PM Inj Spine L/S [facility] SN 2 AKSHAT SAWYER ASSISTANT HALL DIRECTOR-RASPBERRY CHECKER Comment on above: auto-populated from documented surgical [...] Bursa Inj/Aspiration (AOH) SN 4 AKSHAT SAWYER ASSISTANT HALL DIRECTOR-RASPBERRY CHECKER Comment on above: auto-populated from documented surgical case Start: 03-28-2023 Implantation of neurostimulator device BRENT SHAUNA ASSISTANT HALL DIRECTOR-RASPBERRY CHECKER Start: 10-03-2022 PM Inj Spine L/S [facility] SN 1 BRENT SHAUNA ASSISTANT HALL DIRECTOR-RASPBERRY CHECKER Comment on above: auto-populated from documented surgical [...] [facility] SN 5 AKSHAT SAUCEDAON ASSISTANT HALL DIRECTOR-RASPBERRY CHECKER Comment on above: auto-populated from documented surgical case Start: 08-01-2022 PM Inj Spine L/S [facility] SN 1 POLO ROD MD Comment on above: auto-populated from documented surgical case Start: 08-01-2022 PM Inj Spine L/S [facility] SN 2 BRENT SHAUNA ASSISTANT HALL DIRECTOR-RASPBERRY CHECKER Comment on above: auto-populated from documented surgical [...] [facility] Imaging SN 6 AKSHAT SAWYER ASSISTANT HALL DIRECTOR-RASPBERRY CHECKER Comment on above: auto-populated from documented surgical [...] block/injection prone pos ANESTH N BLOCK/INJ PRONE [facility] Start: 05-09-2022 Njx dx/ther sbst intrlmnr lmbr/sac w/img gdn NJX INTERLAMINAR LMBR/SAC [facility] Start: 05-09-2022 Injection of spinal epidural space [facility] Start: 05-09-2022 Injection using fluoroscopic guidance [facility] Start: 05-09-2022 Prothrombin time [facility] Start: 05-09-2022 Patient discharge [facility] Start: 02-07-2022 Anes dx/ther nerve block/injection prone pos ANESTH N BLOCK/INJ PRONE [facility] Start: 02-07-2022 Njx dx/ther sbst intrlmnr lmbr/sac w/img gdn NJX INTERLAMINAR LMBR/SAC [facility] Start: 02-07-2022 Injection of spinal epidural space [facility] Work Phone: Start: 02-07-2022 Injection using fluoroscopic guidance [facility] Work Phone: Start: 02-07-2022 Patient discharge [facility] Start: 12-20-2021 Anes dx/ther nerve block/injection prone pos ANESTH N BLOCK/INJ PRONE [facility] Work Phone: Start: 12-20-2021 Njx dx/ther sbst intrlmnr lmbr/sac w/img gdn NJX INTERLAMINAR LMBR/SAC [facility] Work Phone: Start: 12-20-2021 Patient discharge [facility] Work Phone: Start: 12-03-2021 [facility] Work Phone: Start: 12-02-2021 Patient discharge [facility] Work Phone: Start: 12-02-2021 Care planning and problem solving actions [facility] Work Phone: Start: 12-01-2021 Assessment of risk of venous thromboembolism [facility] Work Phone: Start: 12-01-2021 Insertion of catheter into peripheral vein [facility] Work Phone: Start: 12-01-2021 Providing care according to standard [facility] Work Phone: Start: 12-01-2021 Referral to occupational therapist [facility] Work Phone: Start: 12-01-2021 Referral to service [facility] Work Phone: Start: 12-01-2021 [facility] Work Phone: Start: 12-01-2021 Following clinical pathway protocol [facility] Work Phone: Start: 12-01-2021 Verification routine [facility] Work Phone: Start: 12-01-2021 Admission procedure [facility] Work Phone: Start: 09-06-2021 Anes dx/ther nerve block/injection prone pos ANESTH N BLOCK/INJ PRONE [facility] Work Phone: Start: 09-06-2021 Dstr nrolytc agnt parverteb fct sngl lmbr/sacral DESTROY LUMB/SAC FACET JNT [facility] Work Phone: Start: 06-20-2022 Fluoroscopic guidance O.R. Fluoro for C-Arm [facility] Work Phone: Start: 09-06-2021 X-ray of lumbar spine, two or three views Lumbar Spine 2 or 3 Views [facility] Work Phone: Start: 09-06-2021 Patient discharge [facility] Work Phone: Start: 07-19-2021 Anes dx/ther nerve block/injection prone pos ANESTH N BLOCK/INJ PRONE [facility] Work Phone: Start: 07-19-2021 Dstr nrolytc agnt parverteb fct sngl lmbr/sacral DESTROY LUMB/SAC FACET JNT [facility] Work Phone: Start: 07-19-2021 Patient discharge [facility] Work Phone: Start: 06-07-2021 Njx dx/ther sbst intrlmnr lmbr/sac w/img gdn NJX INTERLAMINAR LMBR/SAC [facility] Work Phone: Start: 06-07-2021 Patient discharge [facility] Work Phone: Start: 11-18-2020 Influenza vaccination INFLUENZA (#1) [facility] Start: 06-29-2014 PROSTATE CANCER SCREENING DISCUSSION PROSTATE CANCER SCREENING DISCUSSION [facility] Start: 03-28-2011 Screening for malignant neoplasm of colon [facility] Start: 06-29-2009 Screening for malignant neoplasm of colon [facility] Start: 06-29-2009 SHINGRIX VACCINE (1 of 2) SHINGRIX VACCINE (1 of 2) [facility] Start: 06-29-2004 DIABETES SCREEN DIABETES SCREEN [facility] Start: 06-29-1994 LIPID SCREEN LIPID SCREEN [facility] Start: 06-29-1978 Urine microalbumin profile DTAP,TDAP,TD (1 - Tdap) [facility] Start: 06-29-1977 HEPATITIS C SCREENING HEPATITIS C SCREENING [facility] Start: 06-29-1977 HIV SCREENING HIV SCREENING [facility] Start: 1971 Adult depression screening assessment DEPRESSION SCREENING [facility] Start: 1971 COVID-19 VACCINE (1) [facility] Alanine aminotransfe rase [Enzymatic activity/volume] in Serum or Plasma [facility] Work Phone: Albumin [Mass/volume ] in Serum or Plasma [facility] Work Phone: Alkaline phosphatase [Enzymatic activity/volume] in Serum or Plasma [facility] Work Phone: Anion gap measurement [facility] Work Phone: Aspartate aminotrans ferase [Enzymatic activity/volume] in Serum or Plasma [facility] Work Phone: Bilirubin, total measurement [facility] Work Phone: BUN/Creatinine ratio [facility] Work Phone: Calcium [Mass/volume ] in Serum or Plasma [facility] Work Phone: Carbon dioxide, tota l [Moles/volume] in Serum or Plasma [facility] Work Phone: Chloride [Moles/volu me] in Serum or Plasma [facility] Work Phone: Creatinine [Moles/vo lume] in Serum or Plasma [facility] Work Phone: Glucose [Mass/volume ] in Serum or Plasma [facility] Work Phone: Hematocrit [Volume Fraction] of Blood [facility] Work Phone: Hemoglobin [Mass/vol ume] in Blood [facility] Work Phone: INR in Blood by Coag ulation assay [facility] Leukocytes [#/volume ] in Blood [facility] Work Phone: Mean corpuscular hem oglobin concentration determination [facility] Work Phone: Mean corpuscular hem oglobin determination [facility] Work Phone: Measurement of renal function [facility] Work Phone: Neutrophil count [facility] Work Phone: Neutrophil percent differential count [facility] Work Phone: Patient referral [facility] Work Phone: Platelets [#/volume] in Blood [facility] Work Phone: Potassium [Moles/vol ume] in Serum or Plasma [facility] Work Phone: Red blood cell count [facility] Work Phone: Red cell distributio n width determination [facility] Work Phone: Sodium [Moles/volume ] in Serum or Plasma [facility] Work Phone: Total protein measurement [facility] Work Phone: Urea nitrogen [Mass/ volume] in Serum or Plasma [facility] Work Phone: Immunizations Immunization Date Immunization Notes Care Provider Lilly patterson 04-09-2024 influenza, injectabl e, quadrivalent, contains preservative; Translations: [Fluarix PF Prefilled Syringe ] SAMANTHA URIBE ASSISTANT HALL DIRECTOR-RASPBERRY CHECKER [facility] 03-09-2023 tetanus toxoid, redu lupis diphtheria toxoid, and acellular pertussis vaccine, adsorbed ANTHONY FERNÁNDEZ MD [facility] Comment on above: Early/Late Reason: E jay/Late Reason: Task Rescheduled 02-28-2023 influenza, injectabl e, quadrivalent, contains preservative; Translations: [Fluarix PF Quadrivalent ] ANTHONY FERNÁNDEZ MD [facility] 02-28-2023 tetanus toxoid, redu lupis diphtheria toxoid, and acellular pertussis vaccine, adsorbed; Translations: [Boostrix (Tdap)] MARS ESQUIVEL ASSISTANT HALL DIRECTOR-RASPBERRY CHECKER [facility] [facility] 05-24-2022 COVID-19, mRNA, LNP- S, bivalent booster, PF, 30 mcg/0.3 mL dose; Translations: [Narrative COVID-19 (12y+) Bivalent Booster Vaccine PF] BRENT VILLATORO ASSISTANT HALL DIRECTOR-RASPBERRY CHECKER [facility] 05-24-2022 SARSCoV2 mRNA(oiekhnuesic88f+)biv al vac; Translations: [Pfizer-BioNTech COVID-19 (12y+) Bivalent Booster Vaccine PF] ANTHONY FERNÁNDEZ MD [facility] 05-24-2022 Pneumococcal conjuga te PCV20, polysaccharide [id number] conjugate, adjuvant, PF; Translations: [Prevnar 20] BRENT VILLATORO ASSISTANT HALL DIRECTOR-RASPBERRY CHECKER [facility] 02-28-2022 influenza, injectabl e, quadrivalent, contains preservative; Translations: [Fluarix PF Quadrivalent ] GAGANDEEP BARCLAY DO [facility] 02-28-2022 zoster vaccine recombinant; Translations: [Shingrix] GAGANDEEP EVOFEM DO [facility] 06-21-2021 zoster vaccine recombinant; Translations: [Shingrix] GAGANDEEP BARCLAY DO [facility] 03-24-2021 [facility] COVID-19, mRNA, LNP- S, PF, 100 mcg or 50 mcg dose; Translations: [Moderna COVID-19 Vaccine] GAGANDEEP BARCLAY DO [facility] 08-13-2020 SARS-CoV-2 (COVID-19 ) Ad26 vaccine, recombinant GAGANDEEP BARCLAY DO [facility] Comment on above: Result Comment: 2021: [id number] 11-22-2019 influenza, injectabl e, quadrivalent, preservative free; Translations: [Fluarix PF Quadrivalent ] GAGANDEEP BARCLAY DO [facility] 02-18-2019 influenza, injectabl e, quadrivalent, preservative free; Translations: [Fluarix PF Quadrivalent ] GAGANDEEP BARCLAY DO [facility] 02-26-2018 influenza virus vacc ine, unspecified formulation GAGANDEEP BARCLAY DO [facility] 12-18-2017 Influenza virus vaccine [facility] 12-18-2017 pneumococcal conjuga te vaccine, 13 valent [facility] 12-21-2016 influenza virus vacc ine, unspecified formulation GAGANDEEP BARCLAY DO [facility] 12-21-2016 pneumococcal polysaccharide vaccine, 23 valent GAGANDEEP DENY DO [facility] 02-09-2015 influenza virus vacc ine, unspecified formulation GAGANDEEP BARCLAY DO [facility] 12-13-2012 influenza virus vacc ine, unspecified formulation GAGANDEEP BARCLAY DO [facility] 06-18-2012 tetanus toxoid, redu lupis diphtheria toxoid, and acellular pertussis vaccine, adsorbed GAGANDEEP BARCLAY DO [facility] Payers Date Payer Category Payer Medicare [id number] 2024 Medicare [id number] 2023 Private Health Insurance [id number] 2023 Self-pay [id number] 2021 Unknown [id number] 2015 Unknown [id number] 2011 Unknown MMO ZZZMMO SUPER MED PLUS [id number] 2011-2018 PPO [id number]. [id number] 2001 Self-pay SELF PAY HSP/MED ICAL SELF PAY [id number] 2001-2015 SELF PAY Indemnity [id number]. 7.3.348936.315 1959 Unknown [id number] 2.16.840.1.930950.3.579.2. 1959 Unknown [id number] 2.16.840.1.399304.3.579.2 1959 Unknown [id number] 2.16.840.1.193460.3.579.2 1959 Unknown [id number] 2.16.840.1.625544.3.579.2 1959 Unknown [id number] 2.16.840.1.051198.3.579.2 1959 Unknown [id number] 2.16.840.1.741395.3.579.2 1959 Unknown [id number] 2.16.840.1.592670.3.579.2 1959 Unknown [id number] 2.16.840.1.380407.3.579.2 1959 Unknown [id number] 2.16.840.1.437045.3.579.2 1959 Unknown [id number] 2.16.840.1.926717.3.579.2. 1959 Unknown [id number] 2.16.840.1.358045.3.579.2. 1959 Unknown [id number] 2.16.840.1.418836.3.579.2. 1959 Unknown [id number] 2.16.840.1.731582.3.579.2. 1959 Unknown [id number] 2.16.840.1.551305.3.579.2. 1959 Unknown [id number] 2.16.840.1.420006.3.579.2 1959 Unknown [id number] 2.16.840.1.950800.3.579.2. 1959 Unknown [id number] 2.16.840.1.257338.3.579.2 1959 Unknown [id number] 2.16.840.1.069457.3.579.2. 1959 Unknown [id number] 2.16.840.1.884403.3.579.2 1959 Unknown [id number] 2.16.840.1.866816.3.579.2. 1959 Unknown [id number] 2.16.840.1.130780.3.579.2. 1959 Unknown [id number] 2.16.840.1.828399.3.579.2. 1959 Unknown [id number] 2.16.840.1.721806.3.579.2. 1959 Unknown [id number] 2.16.840.1.089738.3.579.2. 1959 Unknown [id number] 2.16.840.1.169367.3.579.2. 1959 Unknown [id number] 2.16.840.1.284831.3.579.2. 627 1959 Unknown [id number] 2.16.840.1.016740.3.579.2. 1959 Unknown [id number] 2.16.840.1.694121.3.579.2. 1959 Unknown [id number] 2.16.840.1.250481.3.579.2. 1959 Unknown [id number] 2.840.1.563733.3.579.2. 1959 Unknown [id number] 2.840.1.500199.3.579.2. 1959 Unknown [id number] 2.840.1.316670.3.579.2. 1959 Unknown [id number] 2.840.1.119233.3.579.2. 1959 Unknown [id number] 2.840.1.851664.3.579.2. 1959 Unknown [id number] 2.840.1.867132.3.579.2. 1959 Unknown [id number] 2.840.1.480793.3.579.2. 627 Unknown [id number] 2840.1.092349.3.579.2. 462 Unknown [id number] 2.840.1.459627.3.579.2. 462 Unknown [id number] 2.16840.1.963266.3.579.2. 462 Unknown [id number] 2.16840.1.206111.3.579.2. 462 Unknown [id number] 2.16.840.1.547746.3.579.2. 462 Unknown [id number] 2.16840.1.642638.3.579.2. 462 Unknown [id number] 2.16.840.1.316007.3.579.2. 462 Unknown [id number] 2.16.840.1.320180.3.579.2. 462 Unknown [id number] 2.16.840.1.384247.3.579.2. 462 Unknown [id number] 2.16.840.1.264974.3.579.2. 462 Unknown [id number] 2.16.840.1.646205.3.579.2. 462 Unknown [id number] 2.16.840.1.580000.3.579.2. 462 Unknown [id number] 2.16.840.1.426876.3.579.2. 462 Unknown [id number] 2.16.840.1.500869.3.579.2. 462 Unknown [id number] 2.16840.1.863411.3.579.2. 462 Unknown [id number] 2.16.840.1.198805.3.579.2. 462 Unknown [id number] 2.16840.1.131052.3.579.2. 462 Social History Date Type Detail Facility Start: 05-07-2011 Tobacco smoking stat [facility] Current every day smoker [facility] History of tobacco use Cigarette Smoker [facility] Work Phone: Start: 05-07-2011 Cigarettes smoked current (pack per day) - Reported [facility] Start: 05-07-2011 Alcohol intake Current non-dr delilah of alcohol (finding) [facility] Start: 1960 Sex Assigned At Not on file [facility] Start: 06-04-2021 End: 12-28-2021 Tobacco smoking status NHIS Unknown if ever smoked [facility] Start: 09-15-2020 None [facility] Start: 03-03-2019 Spouse/ Signif icant Other [facility] Start: 09-15-2020 Non-smoker [facility] Start: 1960 Sex Assigned At Male A [facility] Start: 09-26-2018 Tobacco smoking status Light t obacco smoker (finding) [facility] Comment on above: Tobacco/smoke exposu re - daily Start: 03-15-2023 End: 04-14-2023 Tobacco smoking status Heavy tobacco smoker (finding) [facility] Comment on above: Tobacco/smoke exposu re - daily Sexual Orientation [facility] Start: 09-12-2018 Sex Male (finding) [facility] Start: 01-10-2025 Not applicable (qualifier value) [facility] Medical Equipment Procedure Code Equipment Code Equipment [...] Assessment Result Facility 01-10-2025 Functional Status Awake [facility] 01-10-2025 Functional Status [facility] 03-22-2024 Functional Status Less than 8 hours [facility] 09-23-2023 Functional Status Ambulation in [place], Ambulation in Room [facility] 03-28-2023 Functional Status Awake [facility] 03-28-2023 Functional Status ice chips and sips take n [facility] 03-28-2023 Functional Status [facility] 01-09-2023 Functional Status Up with assistance [facility] 01-09-2023 Functional Status Maintained [facility] 10-03-2022 Functional Status Maintained [facility] 08-01-2022 Functional Status [facility] 08-01-2022 Functional Status Less than 8 hours [facility] 12-02-2021 Functional status Ambulates [facility] Work Phone: Mental Status Date Assessment Result Facility 01-10-2025 Mental Status Orientation Oriented x 4 [facility] 01-10-2025 Mental Status [facility] 03-22-2024 Mental Status Orientation Asse ssment Oriented x 4 [facility] 09-23-2023 Mental Status Oriented x 4 [facility] 03-28-2023 Mental Status Orientation Oriented x 4 [place] 03-28-2023 Mental Status [facility] 03-28-2023 Mental Status [facility] 01-09-2023 Mental Status Oriented x 4 [facility] 08-01-2022 Mental Status Oriented x 4 [facility] 08-01-2022 Mental Status [facility] 05-09-2022 Cognitive function Voice/Name;Touch/Shaki ng [facility] Work Phone: 02-07-2022 Cognitive function Voice/Name [facility] Work Phone: 02-07-2022 Cognitive function Patient Orien tation Person;Place;Time [facility] Work Phone: 12-20-2021 Cognitive function Voice/Name [facility] Work Phone: 12-02-2021 Cognitive function Level Of Cons ciousness Awake;Alert;Appropriate;Follow s Commands [facility] Work Phone: 12-01-2021 Cognitive function Appropriate;Cooperativ e [facility] Work Phone: 09-06-2021 Cognitive function Voice/Name;Touch/Shaki ng [facility] Work Phone: 07-19-2021 Cognitive function Voice/Name [facility] Work Phone: 06-07-2021 Cognitive function Voice/Name [facility] Work Phone: Clinical Notes 04-07-2014 to 01-10-2025 Note Date & Type Note Facility 01-10-2025 Note Exam Date Time Procedure Performing Provider Status 01/10/25 2:56 PM XR Fluoro Guide for Therapy Injection Modified [id number] ORIGINAL Images acquired, not reported on this accession number. [facility]10-24-2025 Hospital Discharge instructions Patient Education 01/10/2025 12:17:25 [...] the bandage (dressing) after 24 hours. Take muwy-cls-qgtzjpl and prescription medicines only as told by your health care provider. Keep all follow-up visits as told by your health care provider. This is important. Contact a health care provider if: You have a fever. You continue to have pain and soreness around the injection site, even after taking hhge-wtq-eyclqwp pain medicine. You have severe, sudden, or [...] 06/21/2011 Document Revised: 02/16/2018 Document Reviewed: 06/21/2016 [employer] Patient Education 2020 [employer]. Follow Up Care 12/23/2024 07:45:29 With:BEN AUGUST MD Address: [address] [place] [address] [place] [address] [phone] When: Unknown Comments:Follow-up as scheduled [facility] 10-24-2025 Summary of episode note Discharge Instructions Thank you for allowing [facility] to assist you with your healthcare needs. The following is importantdischarge information regarding your hospital visit. Your Care Team GAGANDEEP BARCLAY DO Your Diagnosis Chronic radicular lumbar pain Lumbar postlaminectomy syndrome What to do next Scheduled Follow-Up Appointments Appointment Type When With Where Contact Information StatusPM OV 02/05/2025 12:30 PM SAMANTHA CLAUDIO APRN-SERA [facility] PM [address] [place] [phone]- [phone] Confirmed Follow Up Appointments Follow Up with BEN AUGUST MD Where:[facility] [address] [place] [address] [phone] Additional Information: Follow-up as scheduled The Following [...] the bandage (dressing) after 24 hours. Take zafp-ckd-zwpvwca and prescription medicines only as told by your health care provider. Keep all follow-up visits as told by your health care provider. This is important. Contact a health care provider if: You have a fever. You continue to have pain and soreness around the injection site, even after taking woca-jty-rmawyvr pain medicine. You have severe, sudden, or [...] to receive it can visit one of [facility] vaccine clinics. There are many vaccine clinic locations within the [facility]. For locations and available times, please visit [email or web address].[place].gov/. It is important to note that some COVID mobile vaccine clinics are held outdoors and may be canceled in rainy or stormy conditions. To learn more about pediatric vaccinations (ages 5-11), we invite you to visit the [facility] webpage. https://www.[facility].org/pages/6367-Vyrva-Zkrwltcnyci-Wbwbeoovdo-Lmupk-Atq stions.htmlTo learn more about the COVID-19 vaccine, we invite you to visit the CDC website for a list of frequently asked questions.https://www.cdc.gov/coronavirus/2019-ncov/vaccines/faq.html [employer] Patient Portal Access Instructions: Stay connected with your healthcare team and access your personal medical information anytime with the [employer] Patient Portal. Please follow the directions below to create your [employer] account: 1.Access the email account you provided upon registration to the hospital/physician office.2.Look for an invitation email from [facility].3.Open the email and access the invitation link: AcceptInvitation to [employer].4.Fill in the required perez to create your account. To access your account, visit [email or web address] or scan the QR code above. Click the [employer] Access Patient Portal and then log in [...] who you will allowto register on the [employer] Patient Portal for access to your information. You can also access the [employer] Patient Portal on the [employer] ashley. Simply click on Patient Portal and then log into your account. If you would like to receive a full copy of your medical records, please contact the [facility] Medical Records Department by calling [phone], Monday through Monday between 8 a.m. and [...] Call your local pharmacy or go to [email or web address] to find one close to you.3.Make use of household items: Use cat litter or old coffee grounds to dispose medications if other options arenot available. Mix your drugs with these household products, seal them in an airtight container andthrow it into the garbage. Call [facility]: [phone] to be sure your drugs can be [...] aware that I should contact my doctor. Patient/Saw Sharpener Signature: Date/Time: Relationship to Patient: Witness Name/Signature: Date/Time: [facility]01-03-2025 Hospital Discharge instructions Patient Education 03/22/2024 12:00:50 [...] the bandage (dressing) after 24 hours. Take xpoy-kjg-mzlwndb and prescription medicines only as told by your health care provider. Keep all follow-up visits as told by your health care provider. This is important. Contact a health care provider if: You have a fever. You continue to have pain and soreness around the injection site, even after taking urvr-lym-atbifvy pain medicine. You have severe, sudden, or [...] 06/21/2011 Document Revised: 02/16/2018 Document Reviewed: 06/21/2016 [employer] Patient Education 2020 [employer]. Follow Up Care 03/11/2024 09:59:35 With:BEN AUGUST MD Address: [address] [place] [address] [phone] When: Unknown Comments:Restart coumadin today. Follow up in office as scheduled. [facility] 01-03-2025 Note* Exam Date Time Procedure Performing Provider Status 03/22/24 1:53 PM XR Fluoro Guide for Therapy Injection Modified [id number] ORIGINAL Images acquired, not reported on this accession number. [facility]01-03-2025 Summary of episode note Discharge Instructions Thank you for allowing [facility] to assist you with your healthcare needs. The following is importantdischarge information regarding your hospital visit. Your Care Team GAGANDEEP BARCLAY DO Your Diagnosis Arthritis of right hip Greater trochanteric bursitis of right hip What to do next Scheduled Follow-Up Appointments Appointment Type When With Where Contact Information StatusPM OV 04/08/2024 11:30 AM AKSHAT ESPINOZA ASSISTANT HALL DIRECTOR-RASPBERRY CHECKER [facility] PM [address] [facility] [address] [phone]- [phone] Confirmed Follow Up Appointments Follow Up with BEN AUGUST MD Where:[address] [place] [address] [phone] Additional Information: Restart coumadin today. Follow up [...] the bandage (dressing) after 24 hours. Take ijix-pfd-hmdrbgl and prescription medicines only as told by your health care provider. Keep all follow-up visits as told by your health care provider. This is important. Contact a health care provider if: You have a fever. You continue to have pain and soreness around the injection site, even after taking otxi-inx-svdkwty pain medicine. You have severe, sudden, or [...] 06/21/2011 Document Revised: 02/16/2018 Document Reviewed: 06/21/2016 [employer] Patient Education 2020 [employer]. Additional Information VACCINATE! IT SAVES LIVES! Members of the community who have not yet received the COVID-19 vaccine and would like to receive it can visit one of [facility] vaccine clinics. There are many vaccine clinic locations within the [facility]. For locations and available times, please visit https://[email or web address].[place].gov/. It is important to note that some COVID mobile vaccine clinics are held outdoors and may be canceled in rainy or stormy conditions. To learn more about pediatric vaccinations (ages 5-11), we invite you to visit the [facility] webpage. https://www.[facility].org/pages/2409-Apgdn-Sjdnzhcpvpf-Zfxkkhhgge-Grhmd-Ykg stions.htmlTo learn more about the COVID-19 vaccine, we invite you to visit the CDC website for a list of frequently asked questions.https://www.cdc.gov/coronavirus/2019-ncov/vaccines/faq.html [employer] Patient Portal Access Instructions: Stay connected with your healthcare team and access your personal medical information anytime with the [employer] Patient Portal. Please follow the directions below to create your [employer] account: 1.Access the email account you provided upon registration to the hospital/physician office.2.Look for an invitation email from [facility].3.Open the email and access the invitation link: AcceptInvitation to [employer].4.Fill in the required perez to create your account. To access your account, visit [email or web address]. Click the blue button labeled Access Patient Portal and then log in with the username and password that you created in the steps above. You will be able to view your test results, lab results, a summary of your visits, upcoming appointments and more. There is also a convenient messaging option where you can send secure messages to your p Space [employer]. In addition, you will have the ability to download any documents or summaries to your computer and/or send the information securely to a physician. Remember that your healthcare information is confidential, so carefully consider who you will allowto register on the [employer] Patient Portal for access to your information. You can also access the [employer] Patient Portal on the [employer]where ashley. Simply click on Patient Portal and then log into your account. If you would like to receive a full copy of your medical records, please contact the [facility] Medical Records Department by calling [phone], Monday through Monday between 8 a.m. and [...] Call your local pharmacy or go to [email or web address] to find one close to you.3.Make use of household items: Use cat litter or old coffee grounds to dispose medications if other options arenot available. Mix your drugs with these household products, seal them in an airtight container andthrow it into the garbage. Call [facility]: [phone] to be sure your drugs can be [...] aware that I should contact my doctor. Patient/Saw Sharpener Signature: Date/Time: Relationship to Patient: Witness Name/Signature: Date/Time: [facility]08-12-2024 Note* Exam Date Time Procedure Performing Provider Status 10/30/23 3:58 PM VL Venous US/Doppler One Leg (for DVT). Auth (Verified) [facility] 08-12-2024 Note* Exam Date Time Procedure Performing Provider Status 10/30/23 3:00 PM VL Arterial Dopplers Both Legs Rest/PVR- Auth (Verified) [facility] 07-06-2024 Hospital Discharge instructions Patient Education 09/23/2023 [...] a problem: Bleeding that soaks the dressing [place] fluid weeping from the wound Increased drainage [...] increased fatigue, or a loss of appetite [phone] [employer]. [address] [place] [address], [place] [address]. All rights reserved. This information is not intended as a substitute for professional medical care. Always follow yourhealthcare professional's instructions. Follow Up Care 09/23/2023 15:45:10 With:[facility] Address: [address] [place] [phone]- When:2-4 days With:GAGANDEEP BARCLAY DO Address: [address] [place] [phone] When:2-4 days [facility] 07-06-2024 Note Discharge Instructions Thank you for allowing [facility] to assist you with your healthcare needs. The following is importantdischarge information regarding your hospital visit. What to Do Next Instructions from Your Care Team No qualifying data available. Post Acute Orders No qualifying data available. You Need to Schedule the Following Appointments Follow Up with [facility] When:Within 2-4 days Where:[address] [place] [phone]- Follow Up with GAGANDEEP BARCLAY DO When:Within 2-4 days Where:[address] [place] [address]- [phone] Allergies Lyrica Hives Red Dye Hives penicillin [...] a problem: Bleeding that soaks the dressing [place] fluid weeping from the wound Increased drainage [...] increased fatigue, or a loss of appetite 1949-2650 [employer]. [address] [place] [address]. All rights reserved. This information is not intended as a substitute for professional medical care. Always follow yourhealthcare professional's instructions. Additional Information VACCINATE! IT SAVES LIVES! Members of the community who have not yet received the COVID-19 vaccine and would like to receive it can visit one of [facility] vaccine clinics. There are many vaccine clinic locations within the [facility]. For locations and available times, please visit www.gettheshot.coronavirus.[place].gov/. It is important to note that some COVID mobile vaccine clinics are held outdoors and may be canceled in rainy or stormy conditions. To learn more about pediatric vaccinations (ages 5-11), we invite you to visit the [facility] webpage. https://www.[facility].org/pages/0322-Lfhqx-Nhbnwfhnlus-Kmwlvbvlks-Xclco-Ayj stions.htmlTo learn more about the COVID-19 vaccine, we invite you to visit the CDC website for a list of frequently asked questions. https://www.cdc.gov/coronavirus/2019-ncov/vaccines/faq.html [facility] Patient Portal Access Instructions: Stay connected with your healthcare team and access your personal medical information anytime with the [facility] Patient Portal. If you would like a full copy of your medical records please contact the [facility] Medical Records Department Monday through Monday between 8a.m. and 4:30p.m. Please follow the directions below to access the portal: 1.Access the email account you provided upon registration to the [facility].2.Look for an invitation email from [facility].3.Open the email and access the invitation link: Accept Invitation to ClassOwl4.Fill in the required perez to create your account. Sign into [email or web address] with your username and password that you [...] you will allow to register on the [facility] Patient Portal for access to your information. You can also access the [facility] Patient Portal on the [employer]. Simply click on Health Records under GoodChime! and then click on the Cursa.me logo. HOW TO SAFELY DISPOSE OF PRESCRIPTION [...] Call your local pharmacy or go to [email or web address] to find one close to you.3.Make use of household items: Use cat litter or old coffee grounds to dispose medications if other options arenot available. Mix your drugs with these household products, seal them in an airtight container andthrow it into the garbage. Call [facility]: [phone] to be sure your drugs can be [...] aware that I should contact my doctor. Patient/Saw Sharpener Signature: Date/Time: Relationship to Patient: Witness Name/Signature: Date/Time: [facility]01-29-2024 Note. MICRO - Microbiology PROCEDURE: Culture Wound [...] Locations *1: This test was performed at: [address], [facility] , [facility] ([place]03-28-2023 Hospital Discharge instructions Patient Education 03/28/2023 12:32:44 1- [facility] General Discharge Guidelines (12/02/2022) (CUSTOM) [facility] SAME DAY SURGERY DISCHARGE INSTRUCTIONS PLEASE FOLLOW [...] instructions. Follow Up Care 02/24/2023 13:04:34 With:MARS ESQUIVELRASPBERRY CHECKER, Neurosurgery Address: [address] [place] [address] [place] [phone] When:04/12/2023 13:15:00 [facility] 01-09-2024 Anesthesiology Consult note Patient: ARELI RUELAS [...] EKATERINA BLUE MD on 03/28/2023 01:05 PM [facility]29 Summary of episode note Discharge Instructions Thank [...] Op 04/12/2023 01:15 PM EST Neurosurgery [address] [facility] [address] [place] [phone] ACC POC Established Patient 04/19/2023 11:30 AM EST [facility] [phone] PM OV 04/19/2023 12:00 PM EST BRENT VILLATORO APRN-RASPBERRY CHECKER [facility] OV 09/19/2023 11:00 [facility] [place] [address] [place] [address] Follow Up Appointments Follow Up with MARS ESQUIVEL, Neurosurgery When 04/12/2023 01:15 PM EST Where: [address] [facility] [address] [facility] [place] [address]- [phone] The Following Activity and Diet Have Been [...] a day Duration: 10 Days Pickup at [id number] Unchanged acetaminophen-hydrocodone (acetaminophen-hydrocodone 325 mg-10 mg oral [...] Sleep / Insomnia Pharmacy Information [id number]: [address] [place], [place] [id number] [phone] What How Much When Comments Stop Taking [...] to receive it can visit one of [facility] vaccine clinics. There are many vaccine clinic locations within the [facility]. For locations and available times, please visit [email or web address] It is important to note that some COVID mobile vaccine clinics are held outdoors and may be canceled in rainy or stormy conditions. To learn more about pediatric vaccinations (ages 5-11), we invite you to visit the [facility] webpage. [email or web address]://[email or web address]/[email or web address]-Hepfiwrhadc-Sfmqgppdui-[email or web address] stions.htmlTo learn more about the COVID-19 vaccine, we invite you to visit the CDC website for a list of frequently asked questions.https://www.cdc.gov/coronavirus/2019-ncov/vaccines/faq.html [facility] Patient Portal Access Instructions: Stay connected with your healthcare team and access your personal medical information anytime with the [facility] Patient Portal. Please follow the directions below to create your [facility] account: 1.Access the email account you provided upon registration to the hospital/physician office.2.Look for an invitation email from [facility].3.Open the email and access the invitation link: AcceptInvitation to ClassOwl.4.Fill in the required perez to create your account. To access your account, visit [email or web address]. Click the blue button labeled Access Patient [...] who you will allowto register on the [facility] Patient Portal for access to your information. You can also access the [facility] Patient Portal on the [facility] Any[facility] ashley. Simply click on Patient Portal and then log into your account. If you would like to receive a full copy of your medical records, please contact the [facility] Medical Records Department by calling [phone], Monday through Monday between 8 a.m. and [...] Call your local pharmacy or go to [email or web address] to find one close to you.3.Make use of household items: Use cat litter or old coffee grounds to dispose medications if other options arenot available. Mix your drugs with these household products, seal them in an airtight container andthrow it into the garbage. Call [facility]: [phone] to be sure your drugs can be [...] aware that I should contact my doctor. Patient/Saw Sharpener Signature: Date/Time: Relationship to Patient: Witness Name/Signature: Date/Time: [facility]5991 Note ORIGINAL EXAMINATION: FLUORO MD - > [...] by: Trell Means MD Preliminary Report By: Mesfni Tran Electronically signed By Trell Means MD Dictated Date: 03/29/2023 1:36:49 AM Prelim Date: 03/29/2023 1:39:03 AM Sign Date: 03/29/2023 1:43:34 AM Ordering Provider: [facility]01-09-2024 Anesthesiology Consult note Patient: ARELI RUELAS [...] tab(s), Oral, qDay fluticasone nasal 0.05 mg/inh [place] 100 mcg 2 spray(s), Nostril, each, qAM [...] list: Medical Angina pectoris / SNOMED CT 925909550 / Confirmed Asthma / SNOMED CT 922343840 / Confirmed Severe obesity (BMI >= 40) / SNOMED CT 0023033250 / Confirmed BMI 40.0-44.9, adult / SNOMED CT 3284335986 / Confirmed BMI 45.0-49.9, adult / SNOMED CT 0938058105 / Confirmed Chronic kidney disease, stage 3a / SNOMED CT 8916370399 / Confirmed COPD mixed type / SNOMED CT 80702485 / Confirmed Chronic pain / SNOMED CT 652022757 / Confirmed Colon cancer screening declined, 2021, 2022 / SNOMED CT 1947926062 / Confirmed Other intervertebral disc degeneration, lumbar region / SNOMED CT 86060415 / Confirmed Diastolic heart failure with preserved ejection fraction / SNOMED CT 7945902337 / Confirmed Difficult intravenous access / SNOMED CT 3921287773 / Confirmed Erectile dysfunction / SNOMED CT 4592998751 / Confirmed Essential hypertension / SNOMED CT 06060874 / Confirmed First degree AV block / SNOMED CT 432883761 / Confirmed Gout / SNOMED CT 053779069 / Confirmed Grade A1 albuminuria / SNOMED CT 2592270480 / Confirmed History of ST elevation myocardial infarction (STEMI) / SNOMED CT 1470088662 / Confirmed History of cardiopulmonary arrest, 2019 during surgery / SNOMED CT 0369375324 / Confirmed History of DVT of lower extremity / SNOMED CT 9458219803 / Confirmed S/P coronary artery stent placement / SNOMED CT 6017550975 / Confirmed Insomnia / SNOMED CT 666724717 / Confirmed Chronic anticoagulation with Warfarin goal 2.0-3.0 / SNOMED CT 1368488418 / Confirmed Lumbar postlaminectomy syndrome / SNOMED CT 988498477 / Confirmed Lumbar spondylosis / SNOMED CT 865973890 / Confirmed Major depressive disorder in remission / SNOMED CT 03811282 / Confirmed Microcytic anemia / SNOMED CT 169568813 / Confirmed Obstructive sleep apnea, intolerent to CPAP / SNOMED CT 464306686 / Confirmed Osteoarthritis / SNOMED CT 2880253388 / Confirmed Numbness and tingling of right leg / SNOMED CT 7973849608 / Confirmed Paroxysmal atrial fibrillation / SNOMED CT 717362407 / Confirmed Polypharmacy / SNOMED CT 520073168 / Confirmed residential prescription opiate use / SNOMED CT 340284221 / Confirmed Pure hypercholesterolemia / SNOMED CT 929167897 / Confirmed Chronic radicular lumbar pain / SNOMED CT 23612989 / Confirmed Lumbar spinal stenosis / SNOMED CT 26815707 / Confirmed, Active Problems (37) Angina pectoris [...] of ST elevation myocardial infarction (STEMI) Insomnia residential prescription opiate use Lumbar postlaminectomy syndrome Lumbar [...] Resolved Acute ST elevation myocardial infarction (STEMI) (4654282761): Onset on 03/03/2019 at 58 years. Resolved. Migraine (04636755): Resolved. Family History: Diabetes mellitus Son (Ryan [...] auto-populated from documented surgical case Cardiac catheterization ([id number]) on 03/03/2019 at 58 Years. Stent in branch of right coronary artery (6803867129) on 03/03/2019 at 58 Years. Revision of total hip arthroplasty (8512868137) on 04/22/2016 at 55 Years. Comments: 09/25/2018 15:18 Ekaterina Aguilera LPN Left Hip, Application of Incisional Wound VAC Arthroplasty ([id number]) on 01/21/2016 at 55 Years. Comments: 09/25/2018 15:20 Ekaterina Aguilera LPN Left Hip, Prostalac spacer placement, cemented freedom liner acetabulum Aspiration of soft tissue (6251138) on 06/29/2015 at 54 Years. Comments: 09/25/2018 15:35 Ekaterina Aguilera LPN Several different procedures on this left thigh for infection of abcess, wound VAC 09/25/2018 15:21 Ekaterina Aguilera LPN Lateral aspect of proximal left thigh Arthroplasty ([id number]) on 12/29/2011 at 51 Years. Comments: 09/25/2018 15:36 Ekaterina Aguilera LPN Revision of Left Hip Diskectomy (0042724) on 05/02/2011 at 50 Years. Comments: 09/25/2018 15:38 Ekaterina Aguielra LPN and Fusion L5-S1 and L4-L5 Total hip replacement ([id number]) on 11/10/2005 at 45 Years. Comments: 09/25/2018 15:45 Ekaterina Aguilera LPN Left Arthroscopy of knee ([id number]) on 08/29/2001 at 41 Years. Comments: 09/25/2018 15:43 Ekaterina Aguilera LPN Right knee Varicose vein ligation and stripping (028290324) on 01/17/1999 at 38 Years. Circumcision (583520282). Injection in back (89306283). Thumb surgery (1463496027). 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, lives with his girlfriend Current Home [...] Resp Rate 18 br/min (MAR 28 06:) IKP438 mmHg (MAR 28:) DBP76 mmHg (MAR 28:) Measurements from flowsheet : Measurements 03/28/2023 6:29 EST Height 180.3 cm Height in inches 71 inch(es) Admission Weight 153.4 kg Weight Lbs 337.5 lb [place] Body Weight 75.26 kg Type of Scale [...] Weight 153.4 kg Weight Lbs 337.5 lb [place] Body Weight 75.26 kg Type of Scale [...] Type 0-10 Pain scale Nail Bed Color [place] Capillary Refill < 2 seconds Heart Rhythm [...] ethnicity Skin Integrity Intact Mucous Membrane Color [place] Skin Moisture General Dry Extremity Movement Equal [...] Method Explanation, Printed materials Preferred Spoken Language Jamaican Preferred Written Language Jamaican Disease Process General Education Signs/Symptoms of complications Discharge Planning Education Importance of follow up appt w/physician Pain Medication Education Pain scale Pre Procedure/Surgery Education Responsible front end driver for discharge Safety Measures Education Call [...] Person #1 We May Share ADAN PARRY [phone] Designated Person #1 Relationship Significant other Designated Person #2 We May Share ADAN James ([phone]) Designated Person #2 Relationship Friend Privacy Restrictions [...] evident Teaching Method Explanation Preferred Spoken Language Jamaican Preferred Written Language Jamaican Teaching Evaluation Verbalizes/Nonverbally indicates understanding Safety Brochure [...] Cardiac Clearance Scanned . Assessment and Plan [place] Society of Anesthesiologists (ASA) physical status classification: [...] AZALIA [place] MD on 03/28/2023 08:16 AM [facility]ck[facility]-2478 Note ORIGINAL Images acquired, not reported on this accession number.[facility]10-23-2023 Hospital Discharge instructions Patient Education 01/09/2023 12:55:13 [...] before eating solid foods. General instructions Take mxgv-eyb-ttsvlpc and prescription medicines only as told by [...] 06/26/2016 Document Revised: 06/04/2018 Document Reviewed: 06/26/2016 Piktochart Patient Education 2020 [employer]. 01/09/2023 12:54:23 Epidural Steroid Injection Epidural Steroid [...] including vitamins, herbs, eye drops, creams, and ldwl-fxo-cjveceb medicines. Any problems you or family members [...] 06/12/2008 Document Revised: 02/16/2018 Document Reviewed: 06/21/2016 Piktochart Patient Education 2020 [employer]. [facility] 10-23-2023 Summary of episode note Discharge Instructions [...] OV 01/16/2023 12:45 PM EDT POLO ROD [facility] ACC POC Established Patient 01/18/2023 10:30 AM EDT [facility] [phone] PC OV 02/28/2023 11:00 AM EST GAGANDEEP BARCLAY DO [facility] [address] [phone] Allergies Lyrica (Hives) Red Dye (Hives) penicillin [...] before eating solid foods. General instructions Take rnuq-dnh-hmuzzmr and prescription medicines only as told by [...] 06/26/2016 Document Revised: 06/04/2018 Document Reviewed: 06/26/2016 Piktochart Patient Education 2020 [employer]. Epidural Steroid Injection An epidural steroid injection [...] including vitamins, herbs, eye drops, creams, and gxje-dcu-kvitimd medicines. Any problems you or family members [...] Document Reviewed: 06/21/2016 Elsevier Patient Education 2020 [employer]. Additional Information VACCINATE! IT SAVES LIVES! Members of the community who have not yet received the COVID-19 vaccine and would like to receive it can visit one of [facility] vaccine clinics. There are many vaccine clinic locations within the [facility]. For locations and available times, please visit [email or web address] It is important to note that some COVID mobile vaccine clinics are held outdoors and may be canceled in rainy or stormy conditions. To learn more about pediatric vaccinations (ages 5-11), we invite you to visit the [facility] webpage. https://[email or web address]/[email or web address]-Ltsycpgyfkp-Ajorurcvya-[email or web address] [email or web address].htmlTo learn more about the COVID-19 vaccine, we invite you to visit the CDC website for a list of frequently asked questions.https://www.cdc.gov/coronavirus/2019-ncov/vaccines/faq.html [employer] Patient Portal Access Instructions: Stay connected with your healthcare team and access your personal medical information anytime with the [employer] Patient Portal. Please follow the directions below to create your [employer] account: 1.Access the email account you provided upon registration to the hospital/physician office.2.Look for an invitation email from [facility].3.Open the email and access the invitation link: AcceptInvitation to [employer].4.Fill in the required perez to create your account. To access your account, visit [email or web address]. Click the blue button labeled Access Patient Portal and then log in with the username and password that you created in the steps above. You will be able to view your test results, lab results, a summary of your visits, upcoming appointments and more. There is also a convenient messaging option where you can send secure messages to your p Space Apevider. In addition, you will have the ability to download any documents or summaries to your computer and/or send the information securely to a physician. Remember that your healthcare information is confidential, so carefully consider who you will allowto register on the [employer] Patient Portal for access to your information. You can also access the [employer] Patient Portal on the [facility] ashley. Simply click on Patient Portal and then log into your account. If you would like to receive a full copy of your medical records, please contact the [facility] Medical Records Department by calling [phone], Monday through Monday between 8 a.m. and [...] Call your local pharmacy or go to [email or web address] to find one close to you.3.Make use of household items: Use cat litter or old coffee grounds to dispose medications if other options arenot available. Mix your drugs with these household products, seal them in an airtight container andthrow it into the garbage. Call [facility]: [phone] to be sure your drugs can be [...] aware that I should contact my doctor. Patient/Saw Sharpener Signature: Date/Time: Relationship to Patient: Witness Name/Signature: Date/Time: [facility]10-23-2023 Anesthesiology Consult note Patient: ARELI RUELAS Age: [...] list: Medical Angina pectoris / SNOMED CT 416515347 / Confirmed Severe obesity (BMI >= 40) / SNOMED CT 5707046324 / Confirmed BMI 40.0-44.9, adult / SNOMED CT 1152249741 / Confirmed Chronic kidney disease, stage 3a / SNOMED CT 8908405419 / Confirmed COPD mixed type / SNOMED CT 89995414 / Confirmed Chronic pain / SNOMED CT 624046270 / Confirmed Colon cancer screening declined, recheck Spring 2022 / SNOMED CT 2793040554 / Confirmed Other intervertebral disc degeneration, lumbar region / SNOMED CT 14139576 / Confirmed Diastolic heart failure with preserved ejection fraction / SNOMED CT 5391559756 / Confirmed Erectile dysfunction / SNOMED CT 2950559654 / Confirmed Essential hypertension / SNOMED CT 58708667 / Confirmed Gout / SNOMED CT 887566025 / Confirmed Grade A1 albuminuria / SNOMED CT 7211085583 / Confirmed History of DVT of lower extremity / SNOMED CT 9388169014 / Confirmed S/P coronary artery stent placement / SNOMED CT 3913820907 / Confirmed Insomnia / SNOMED CT 716405244 / Confirmed Chronic anticoagulation with Warfarin goal 2.0-3.0 / SNOMED CT 6808471622 / Confirmed Lumbar postlaminectomy syndrome / SNOMED CT 122308138 / Confirmed Lumbar spondylosis / SNOMED CT 201827295 / Confirmed Major depressive disorder in remission / SNOMED CT 53228493 / Confirmed Microcytic anemia / SNOMED CT 807427392 / Confirmed Migraine / SNOMED CT 33827013 / Confirmed Obstructive sleep apnea, intolerent to CPAP / SNOMED CT 666115750 / Confirmed Osteoarthritis / SNOMED CT 5479439915 / Confirmed Paroxysmal atrial fibrillation / SNOMED CT 534492071 / Confirmed Polypharmacy / SNOMED CT 703023236 / Confirmed spareribs trimmer prescription opiate use / SNOMED CT 878592505 / Confirmed Pure hypercholesterolemia / SNOMED CT 999777175 / Confirmed Chronic radicular lumbar pain / SNOMED CT 34307611 / Confirmed Lumbar spinal stenosis / SNOMED CT 31010016 / Confirmed Canceled: Decreased renal function / SNOMED CT 09535826 Canceled: BMI 45.0-49.9, adult / SNOMED CT 1183922737 Canceled: COPD - Chronic obstructive pulmonary disease / SNOMED CT 655684830 Canceled: Depressive disorder / SNOMED CT 87333512 Canceled: Grade A3 albuminuria / SNOMED CT 2020540023 Canceled: Hypertension / SNOMED CT 06115142 Canceled: HTN (hypertension) / SNOMED CT 7702603662 Canceled: Wellness examination / SNOMED CT 357912170 Canceled: spareribs trimmer prescription opiate use / SNOMED CT 058607312, Active Problems (31) Angina pectoris BMI 40.0-44.9, adult Chronic anticoagulation with Warfarin goal 2.0-3.0 Chronic kidney disease, stage 3a Chronic pain Chronic radicular lumbar pain Colon cancer screening declined, recheck Spring 2022 COPD mixed type Diastolic heart failure with preserved ejection fraction Erectile dysfunction Essential hypertension Gout Grade A1 albuminuria History of DVT of lower extremity Insomnia residential prescription opiate use Lumbar postlaminectomy syndrome Lumbar [...] surgical case Revision of total hip arthroplasty ([id number]) on 04/22/2016 at 55 Years. Comments: 09/25/2018 15:18 Ekaterina Aguilera LPN Left Hip, Application of Incisional Wound VAC Arthroplasty ([id number]) on 01/21/2016 at 55 Years. Comments: 09/25/2018 15:20 Ekaterina Aguilera LPN Left Hip, Prostalac spacer placement, cemented freedom liner acetabulum Aspiration of soft tissue ([id number]) on 06/29/2015 at 54 Years. Comments: 09/25/2018 15:35 Ekaterina Aguilera LPN Several different procedures on this left thigh for infection of abcess, wound VAC 09/25/2018 15:21 Ekaterina Aguilera LPN Lateral aspect of proximal left thigh Arthroplasty ([id number]) on 12/29/2011 at 51 Years. Comments: 09/25/2018 15:36 RASHMIT Ekaterina Green LPN Revision of Left Hip Diskectomy ([id number]) on 05/02/2011 at 50 Years. Comments: 09/25/2018 15:38 EDT Ekaterina Green LPN and Fusion L5-S1 and L4-L5 Total hip replacement ([id number]) on 11/10/2005 at 45 Years. Comments: 09/25/2018 15:45 Ekaterina Aguilera LPN Left Arthroscopy of knee ([id number]) on 08/29/2001 at 41 Years. Comments: 09/25/2018 15:43 Ekaterina Aguilera LPN Right knee Varicose vein ligation and stripping (196351587) on 01/17/1999 at 38 Years. Circumcision (624446963). Injection in back (57243175). 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1 SN - GCD - Case Level Level 4 01/09/2023 11:59 EDT SN - Cul - Culture Type No Specimen per Surgeon 01/09/2023 11:58 EDT SN - CAt - Case Attendee SN - CAt - Case Attendee SN - CAt - Role Performed Hogshead Packer 01/09/2023 11:58 EDT dexmedeTOMIDine 10 mcg mcg [...] Surgeon SN - CAt - Role Performed Natural Resources Engineer 1 SN - CAt - Role Performed Scrub 1 SN - CAt - Role Performed Rehabilitation Liaison 1 SN - CAt - Role Performed Quality Assurance Calibrator SN - CAt - Role Performed INDUSTRIAL SALES MANAGER 01/09/2023 11:29 EDT Designated Person #1 We May Share ADAN PARRY [phone] Designated Person #1 Relationship Spouse Privacy Restrictions Requested None Height 185 cm Admission Weight 152.2 kg Weight Method Stated [place] Body Weight 79.52 kg BSA Admission 2.68 [...] Teaching Method Printed materials Preferred Spoken Language Jamaican Preferred Written Language Jamaican Information Given by Patient Patient's Current Physicians [...] no difficulties Skin Temperature Warm Skin Description [place], Normal for ethnicity, Dry Skin Integrity Intact Mucous Membrane Color [place] IV Present Present Neurological Symptoms Patient denies [...] Void 01/09/2023 10:30 . Assessment and Plan [place] Society of Anesthesiologists (ASA) physical status classification: Class III. Anesthetic Preoperative Plan Premedication: intravenous. Anesthetic technique: MAC. Induction: intravenously. Maintenance airway: Mask. Postoperative pain management: Per surgeon. Risks discussed: nausea, vomiting, headache, sore throat, dental injury, hypotension, allergic reaction, serious complications. Informed consent: signed by patient. Digitally Signed by PAPI DURHAM on 01/09/2023 12:55 PM [facility]07-17-2023 Note ORIGINAL Images acquired, not reported on this accession number. [facility]-17-2023 Note ORIGINAL Images acquired, not reported on this accession number.[facility]-17-2023 Hospital Discharge instructions Patient Education 10/03/2022 10:48:07 [...] including vitamins, herbs, eye drops, creams, and gxsc-mmv-yedfziy medicines. Any problems you or family members [...] 06/12/2008 Document Revised: 02/16/2018 Document Reviewed: 06/21/2016 Piktochart Patient Education 2020 [employer]. [facility] 07-17-2023 Summary of episode note Discharge Instructions Thank you for allowing [facility] to assist you with your healthcare needs. The following is importantdischarge information regarding your hospital visit. Your Care Team GAGANDEEP BARCLAY DO Your Diagnosis Lumbar postlaminectomy syndrome What to do next Scheduled Follow-Up Appointments Appointment Type When With Where Contact InformationACC POC Established Patient 10/10/2022 11:30 AMEDT [facility] [phone] PM OV 10/24/2022 11:15 AM POLO LINARES MD [facility] OV 02/28/2023 11:00 AM GAGANDEEP MELENDEZ DO [facility] [address] [phone] Allergies Lyrica (Hives) Red Dye (Hives) penicillin [...] prior to procedure, must have front end driver to and from procedure. Unchanged fluticasone [...] Unchanged predniSONE (prednisone 10mg tab (TAPER)) Taper 84-03-26-10-5 mg by mouth Every day Gout Duration: [...] including vitamins, herbs, eye drops, creams, and lhfq-lnz-aovvawe medicines. Any problems you or family members [...] 06/12/2008 Document Revised: 02/16/2018 Document Reviewed: 06/21/2016 Piktochart Patient Education 2020 [employer]. Additional Information VACCINATE! IT SAVES LIVES! Members of the community who have not yet received the COVID-19 vaccine and would like to receive it can visit one of [facility] vaccine clinics. There are many vaccine clinic locations within the [facility]. For locations and available times, please visit [email or web address].gov/. It is important to note that some COVID mobile vaccine clinics are held outdoors and may be canceled in rainy or stormy conditions. To learn more about pediatric vaccinations (ages 5-11), we invite you to visit the [facility] webpage. https://www.[facility].org/pages/8638-Zymal-Corfvzqyzkv-Gvkjkcuouv-Vizlg-Dti stions.htmlTo learn more about the COVID-19 vaccine, we invite you to visit the CDC website for a list of frequently asked questions.https://www.cdc.gov/coronavirus/2019-ncov/vaccines/faq.html [facility] [employer] Patient Portal Access Instructions: Stay connected with your healthcare team and access your personal medical information anytime with the [employer] Patient Portal. Please follow the directions below to create your [employer] account: 1.Access the email account you provided upon registration to the hospital/physician office.2.Look for an invitation email from [facility].3.Open the email and access the invitation link: AcceptInvitation to [facility].4.Fill in the required perez to create your account. To access your account, visit [email or web address]. Click the blue button labeled Access Patient [...] who you will allowto register on the [facility] [employer] Patient Portal for access to your information. You can also access the [facility]Chart Patient Portal on the [facility] ashley. Simply click on Patient Portal and then log into your account. If you would like to receive a full copy of your medical records, please contact the [facility] Medical Records Department by calling [phone], Monday through Monday between 8 a.m. and [...] Call your local pharmacy or go to http://bit.AudioEye/7B7Cl3d to find one close to you.3.Make use of household items: Use cat litter or old coffee grounds to dispose medications if other options arenot available. Mix your drugs with these household products, seal them in an airtight container andthrow it into the garbage. Call [facility]: [phone] to be sure your drugs can be [...] aware that I should contact my doctor. Patient/Saw Sharpener Signature: Date/Time: Relationship to Patient: Witness Name/Signature: Date/Time: [facility]05-15-2023 Hospital Discharge instructions Patient Education 08/01/2022 11:37:17 How to Use Cold Therapy, Xxdz-sc-Pcgv How to Use Cold Therapy Cold therapy, [...] 08/22/2008 Document Revised: 12/03/2018 Document Reviewed: 12/03/2018 Piktochart Patient Education 2020 [employer]. 08/01/2022 11:37:11 Epidural Steroid Injection, Care After [...] the bandage (dressing) after 24 hours. Take cihi-xfa-yzqjhyq and prescription medicines only as told by your health care provider. Keep all follow-up visits as told by your health care provider. This is important. Contact a health care provider if: You have a fever. You continue to have pain and soreness around the injection site, even after taking hohl-lom-ibqmhxp pain medicine. You have severe, sudden, or [...] 06/21/2011 Document Revised: 02/16/2018 Document Reviewed: 06/21/2016 Piktochart Patient Education 2020 [employer]. Follow Up Care 07/26/2022 10:39:54 With:POLO ROD MD Address: [address] [place] [address] [facility] [place] [address]- [phone] When: Unknown Comments:CALL DR ROD WITH ANY QUESTIONS OR CONCERNS. GO TO THE EMERGENCY ROOM WITH ANY URGENT CONCERNS FOLLOW UP WITH DR. ROD. [facility] 05-15-2023 Note ORIGINAL Images acquired, not reported on this accession number. [facility]05-15-2023 Note ORIGINAL Images acquired, not reported on this accession number.[facility]05-15-2023 Summary of episode note Discharge Instructions Thank you for allowing [facility] to assist you with your healthcare needs. The following is importantdischarge information regarding your hospital visit. Your Care Team GAGANDEEP BARCLAY Your Diagnosis CAUDAL EPIDURAL STEROID INJECTION What to do next Scheduled Follow-Up Appointments Appointment Type When With Where Contact InformationPM OV 08/24/2022 09:45 AM EDT MARAL VILLATORO APRN-SERA [facility] ACC POC Established Patient 08/24/2022 10:30 AM EDT [facility] [phone] OV 08/25/2022 11:00 AM EDT [facility] [address] [phone] Follow Up Appointments Follow Up with POLO ROD MD When Why: CALL DR ROD WITH ANY QUESTIONS OR CONCERNS. GO TO THE EMERGENCY ROOM WITH ANY URGENT CONCERNS FOLLOW UP WITH DR. ROD. Where: [address] [facility] [address] [facility] [place] [address]- [phone] The Following Activity and Diet Have Been [...] 08/22/2008 Document Revised: 12/03/2018 Document Reviewed: 12/03/2018 Piktochart Patient Education 2020 [employer]. Epidural Steroid Injection, Care After Refer [...] the bandage (dressing) after 24 hours. Take woii-imb-ossxdnb and prescription medicines only as told by your health care provider. Keep all follow-up visits as told by your health care provider. This is important. Contact a health care provider if: You have a fever. You continue to have pain and soreness around the injection site, even after taking tpgq-uvo-ahwuthv pain medicine. You have severe, sudden, or [...] 06/21/2011 Document Revised: 02/16/2018 Document Reviewed: 06/21/2016 Piktochart Patient Education 2020 [employer]. Additional Information VACCINATE! IT SAVES LIVES! Members of the community who have not yet received the COVID-19 vaccine and would like to receive it can visit one of [facility] vaccine clinics. There are many vaccine clinic locations within the [facility]. For locations and available times, please visit [email or web address].gov/. It is important to note that some COVID mobile vaccine clinics are held outdoors and may be canceled in rainy or stormy conditions. To learn more about pediatric vaccinations (ages 5-11), we invite you to visit the [facility] webpage. https://www.[facility].org/pages/9585-Kjwzg-Cstgswoihzb-Btvtrmapzx-Gpytb-Oec stions.htmlTo learn more about the COVID-19 vaccine, we invite you to visit the CDC website for a list of frequently asked questions.https://www.cdc.gov/coronavirus/2019-ncov/vaccines/faq.html [facility] Access Instructions: Stay connected with your healthcare team and access your personal medical information anytime with the [facility] Patient Portal. Please follow the directions below to create your [employer] account: 1.Access the email account you provided upon registration to the hospital/physician office.2.Look for an invitation email from [facility].3.Open the email and access the invitation link: AcceptInvitation to [facility].4.Fill in the required perez to create your account. To access your account, visit [email or web address]. Click the blue button labeled Access Patient [...] who you will allowto register on the [facility] [employer] Patient Portal for access to your information. You can also access the [facility] [employer] Patient Portal on the [facility]here ashley. Simply click on Patient Portal and then log into your account. If you would like to receive a full copy of your medical records, please contact the [facility] Medical Records Department by calling [phone], Monday through Monday between 8 a.m. and [...] Call your local pharmacy or go to http://bit.ly/9K4Mn4e to find one close to you.3.Make use of household items: Use cat litter or old coffee grounds to dispose medications if other options arenot available. Mix your drugs with these household products, seal them in an airtight container andthrow it into the garbage. Call [facility]: [phone] to be sure your drugs can be [...] Education Materials How to Use Cold Therapy, Vzal-zu-Hdmp Epidural Steroid Injection, Care After Medication Leaflets My discharge plan and instructions have been reviewed and explained to me and IRAEANN HARRISON Bunderstand my current condition and have read and understand these discharge instructions. I have received a written copy of the plan/instructions. If I have questions, I am aware that I should contact my doctor. Patient/Saw Sharpener Signature: Date/Time: Relationship to Patient: Witness Name/Signature: Date/Time: [facility]02-20-2023 Procedure [facility]12-15-2019 Evaluation note* Diagnosis Onset Date Resolution Status Essential (primary) hypertension chronic Paroxysmal atrial fibrillation chronic History of coronary artery stent placement March 032018 resolved [facility] Work Phone: 1(954) 680-548001-19-2015 History of Present illness Narrative* Yon Alvarez - 04/07/2014 7:39 AM EST Injection scheduled 04-24-2014 Sent to Emma for PAT scheduling [facility]* EKATERINA BLUE MD: PERFORM, SIGN, [...] tab(s), Oral, qDay fluticasone nasal 0.05 mg/inh [place] 100 mcg 2 spray(s), Nostril, each, qAM [...] list: Medical Angina pectoris / SNOMED CT 179369258 / Confirmed Asthma / SNOMED CT 718809691 / Confirmed Severe obesity (BMI >= 40) / SNOMED CT 3951640562 / Confirmed BMI 40.0-44.9, adult / SNOMED CT 1956356706 / Confirmed BMI 45.0-49.9, adult / SNOMED CT 5538061118 / Confirmed Chronic kidney disease, stage 3a / SNOMED CT 7069726447 / Confirmed COPD mixed type / SNOMED CT 03286698 / Confirmed Chronic pain / SNOMED CT 693506462 / Confirmed Colon cancer screening declined, 2021, 2022 / SNOMED CT 1170782355 / Confirmed Other intervertebral disc degeneration, lumbar region / SNOMED CT 95342302 / Confirmed Diastolic heart failure with preserved ejection fraction / SNOMED CT 7745592767 / Confirmed Difficult intravenous access / SNOMED CT 4163759564 / Confirmed Erectile dysfunction / SNOMED CT 0638839737 / Confirmed Essential hypertension / SNOMED CT 46487571 / Confirmed First degree AV block / SNOMED CT 728563750 / Confirmed Gout / SNOMED CT 588457116 / Confirmed Grade A1 albuminuria / SNOMED CT 1658427154 / Confirmed History of ST elevation myocardial infarction (STEMI) / SNOMED CT 3436037924 / Confirmed History of cardiopulmonary arrest, 2019 during surgery / SNOMED CT 5757015833 / Confirmed History of DVT of lower extremity / SNOMED CT 6672691150 / Confirmed S/P coronary artery stent placement / SNOMED CT 2789062077 / Confirmed Insomnia / SNOMED CT 114921777 / Confirmed Chronic anticoagulation with Warfarin goal 2.0-3.0 / SNOMED CT 7986595448 / Confirmed Lumbar postlaminectomy syndrome / SNOMED CT 082317480 / Confirmed Lumbar spondylosis / SNOMED CT 945400290 / Confirmed Major depressive disorder in remission / SNOMED CT 18065071 / Confirmed Microcytic anemia / SNOMED CT 921473683 / Confirmed Obstructive sleep apnea, intolerent to CPAP / SNOMED CT 805143850 / Confirmed Osteoarthritis / SNOMED CT 2851554937 / Confirmed Numbness and tingling of right leg / SNOMED CT 6075269274 / Confirmed Paroxysmal atrial fibrillation / SNOMED CT 295586536 / Confirmed Polypharmacy / SNOMED CT 059658344 / Confirmed spareribs trimmer prescription opiate use / SNOMED CT 866766969 / Confirmed Pure hypercholesterolemia / SNOMED CT 246337592 / Confirmed Chronic radicular lumbar pain / SNOMED CT 39446158 / Confirmed Lumbar spinal stenosis / SNOMED CT 07592959 / Confirmed, Active Problems (37) Angina pectoris [...] of ST elevation myocardial infarction (STEMI) Insomnia spareribs trimmer prescription opiate use Lumbar postlaminectomy syndrome Lumbar [...] Resolved Acute ST elevation myocardial infarction (STEMI) (2277174936): Onset on 03/03/2019 at 58 years. Resolved. Migraine (06573931): Resolved. Family History: Diabetes mellitus Son (Ryan [...] auto-populated from documented surgical case Cardiac catheterization ([id number]) on 03/03/2019 at 58 Years. Stent in branch of right coronary artery ([id number]) on 03/03/2019 at 58 Years. Revision of total hip arthroplasty ([id number]) on 04/22/2016 at 55 Years. Comments: 09/25/2018 15:18 Ekaterina Aguilera LPN Left Hip, Application of Incisional Wound VAC Arthroplasty ([id number]) on 01/21/2016 at 55 Years. Comments: 09/25/2018 15:20 Ekaterina Aguilera LPN Left Hip, Prostalac spacer placement, cemented freedom liner acetabulum Aspiration of soft tissue ([id number]) on 06/29/2015 at 54 Years. Comments: 09/25/2018 15:35 Ekaterina Aguilera LPN Several different procedures on this left thigh for infection of abcess, wound VAC 09/25/2018 15:21 Ekaterina Aguilera LPN Lateral aspect of proximal left thigh Arthroplasty ([id number]) on 12/29/2011 at 51 Years. Comments: 09/25/2018 15:36 Ekaterina Aguilera LPN Revision of Left Hip Diskectomy ([id number]) on 05/02/2011 at 50 Years. Comments: 09/25/2018 15:38 Ekaterina Aguilera LPN and Fusion L5-S1 and L4-L5 Total hip replacement ([id number]) on 11/10/2005 at 45 Years. Comments: 09/25/2018 15:45 Ekaterina Aguilera LPN Left Arthroscopy of knee ([id number]) on 08/29/2001 at 41 Years. Comments: 09/25/2018 15:43 Ekaterina Aguilera LPN Right knee Varicose vein ligation and stripping (227046078) on 01/17/1999 at 38 Years. Circumcision (675272856). Injection in back (45401711). Thumb surgery (4671242053). 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 Substance Abuse 03/28/2023 Use: Never 4Risk Assessment: [...] Home/Independent Safe place to go: Yes Primary Senior Front End Engineer: Self, lives with his girlfriend Current Home [...] Resp Rate 18 br/min (MAR 28 06:29) OWJ801 mmHg (MAR 28 06:29) DBP76 mmHg (MAR 28 06:29) Measurements from flowsheet : Measurements 03/28/2023 6:29 EST Height 180.3 cm Height in inches 71 inch(es) Admission Weight 153.4 kg Weight Lbs 337.5 lb [place] Body Weight 75.26 kg Type of Scale [...] Weight 153.4 kg Weight Lbs 337.5 lb [place] Body Weight 75.26 kg Type of Scale [...] Type 0-10 Pain scale Nail Bed Color [place] Capillary Refill < 2 seconds Heart Rhythm [...] ethnicity Skin Integrity Intact Mucous Membrane Color [place] Skin Moisture General Dry Extremity Movement Equal [...] Method Explanation, Printed materials Preferred Spoken Language Jamaican Preferred Written Language Jamaican Disease Process General Education Signs/Symptoms of complications Discharge Planning Education Importance of follow up appt w/physician Pain Medication Education Pain scale Pre Procedure/Surgery Education Responsible front end driver for discharge Safety Measures Education Call [...] #1 We May Share PHI ADAM BRINDA [phone] Designated Person #1 Relationship Significant other Designated Person #2 We May Share PHI Tanna James ([phone]) Designated Person #2 Relationship Friend Privacy Restrictions [...] evident Teaching Method Explanation Preferred Spoken Language Jamaican Preferred Written Language Jamaican Teaching Evaluation Verbalizes/Nonverbally indicates understanding Safety Brochure [...] Cardiac Clearance Scanned . Assessment and Plan [place] Society of Anesthesiologists (ASA) physical status classification: [...] AZALIA [place] MD on 03/28/2023 08:16 AM [facility] Evaluation + Plan note Future Appointments Appointment Date:12/14/2021 10:45:00 AM Scheduled Provider: Location:[facility] Appointment Type:ACC POC Established Patient Appointment Date:12/17/2021 11:15:00 AM Scheduled Provider:GAGANDEEP BARCLAY DO Location:[facility] Appointment Type:PC OV Follow Up Diagnostic Tests Pending * Microalbumin Level Urine 12/07/21 [facility] Evaluation + Plan note Future Appointments Appointment Date:05/24/2022 11:00:00 AM Scheduled Provider:GAGANDEEP BARCLAY DO Location:[facility] Appointment Type:PC OV Appointment Date:05/24/2022 12:00:00 PM Scheduled Provider: Location:[facility] Appointment Type:ACC POC Established Patient [facility] Evaluation + Plan note Future Appointments Appointment Date:08/24/2022 09:45:00 AM Scheduled Provider:BRENT VILLATORO Location:[facility] PM Appointment Type:PM OV Appointment Date:08/24/2022 10:30:00 AM Scheduled Provider: Location:[facility] Appointment Type:ACC POC Established Patient Appointment Date:08/24/2022 11:00:00 AM Scheduled Provider:GAGANDEEP BARCLAY DO Location:[facility] Appointment Type:PC OV [facility] Evaluation + Plan note Future Appointments Appointment Date:08/24/2022 09:45:00 AM Scheduled Provider:BRENT VILLATORO Location:[facility] PM Appointment Type:PM OV Appointment Date:08/24/2022 10:30:00 AM Scheduled Provider: Location:[facility] Appointment Type:ACC POC Established Patient Appointment Date:08/25/2022 11:00:00 AM Scheduled Provider:GAGANDEEP BARCLAY DO Location:[facility] Appointment Type:PC OV [facility] Evaluation + Plan note Future Appointments Appointment Date:08/25/2022 11:00:00 AM Scheduled Provider:GAGANDEEP BARCLAY DO Location:[facility] Appointment Type:PC OV Appointment Date:09/14/2022 02:15:00 PM Scheduled Provider:BRENT VILLATORO Location:[facility] PM Appointment Type:PM OV Appointment Date:10/05/2022 10:45:00 AM Scheduled Provider: Location:[facility] Appointment Type:ACC POC Established Patient [facility] Evaluation + Plan note Future Appointments Appointment Date:10/10/2022 11:30:00 AM Scheduled Provider: Location:[facility] Appointment Type:ACC POC Established Patient Appointment Date:10/24/2022 11:15:00 AM Scheduled Provider:POLO ROD MD Location:[facility] PM Appointment Type:PM OV Appointment Date:02/28/2023 11:00:00 AM Scheduled Provider:GAGANDEEP BARCLAY DO Location:[facility] Appointment Type:PC OV Future Scheduled Tests Laboratory* Prostate Specific Antigen 08/25/22 * Thyroid Stimulating Hormone 08/25/22 * Free T4 08/25/22 * Uric Acid 08/25/22 * Vitamin B12 Level 08/25/22 * A1C Hemoglobin 08/25/22 * Complete Blood Count 08/25/22 * Lipid Profile 08/25/22 * Albumin/Creatinine Ratio, Random Urine 08/25/22 * Vitamin D Level 08/25/22 * Complete Metabolic Panel 08/25/22 [facility] Evaluation + Plan note Future Appointments Appointment Date:12/21/2022 11:00:00 AM Scheduled Provider: Location:[facility] Appointment Type:ACC POC Established Patient Appointment Date:12/21/2022 11:45:00 AM Scheduled Provider:BRENT VILLATORO Location:[facility] PM Appointment Type:PM OV Appointment Date:02/28/2023 11:00:00 AM Scheduled Provider:GAGANDEEP BARCLAY DO Location:[facility] Appointment Type:PC OV Future Scheduled Tests Laboratory* Prostate Specific Antigen 08/25/22 * Thyroid Stimulating Hormone 08/25/22 * Free T4 08/25/22 * Uric Acid 08/25/22 * Vitamin B12 Level 08/25/22 * A1C Hemoglobin 08/25/22 * Complete Blood Count 08/25/22 * Lipid Profile 08/25/22 * Albumin/Creatinine Ratio, Random Urine 08/25/22 * Vitamin D Level 08/25/22 * Complete Metabolic Panel 08/25/22 [facility] Evaluation + Plan note Future Appointments Appointment Date:01/16/2023 12:45:00 PM Scheduled Provider:POLO ROD MD Location:[facility] PM Appointment Type:PM OV Appointment Date:01/18/2023 10:30:00 AM Scheduled Provider: Location:[facility] Appointment Type:ACC POC Established Patient Appointment Date:02/28/2023 11:00:00 AM Scheduled Provider:GAGANDEEP BARCLAY DO Location:[facility] Appointment Type:PC OV Future Scheduled Tests Laboratory* Prostate Specific Antigen 08/25/22 * Thyroid Stimulating Hormone 08/25/22 * Free T4 08/25/22 * Uric Acid 08/25/22 * Vitamin B12 Level 08/25/22 * A1C Hemoglobin 08/25/22 * Complete Blood Count 08/25/22 * Lipid Profile 08/25/22 * Albumin/Creatinine Ratio, Random Urine 08/25/22 * Vitamin D Level 08/25/22 * Complete Metabolic Panel 08/25/22 [facility] Evaluation + Plan note Future Appointments Appointment Date:02/15/2023 11:30:00 AM Scheduled Provider: Location:[facility] Appointment Type:ACC POC Established Patient Appointment Date:02/15/2023 12:30:00 PM Scheduled Provider:BERNT VILLATORO Location:[facility] PM Appointment Type:PM OV Appointment Date:02/28/2023 11:00:00 AM Scheduled Provider:GAGANDEEP BARCLAY DO Location:[facility] Appointment Type:PC OV Future Scheduled Tests Laboratory* Prostate Specific Antigen 08/25/22 * Thyroid Stimulating Hormone 08/25/22 * Free T4 08/25/22 * Uric Acid 08/25/22 * Vitamin B12 Level 08/25/22 * A1C Hemoglobin 08/25/22 * Complete Blood Count 08/25/22 * Lipid Profile 08/25/22 * Albumin/Creatinine Ratio, Random Urine 08/25/22 * Vitamin D Level 08/25/22 * Complete Metabolic Panel 08/25/22 [facility] Evaluation + Plan note Future Appointments Appointment Date:02/28/2023 11:00:00 AM Scheduled Provider:GAGANDEEP BARCLAY DO Location:[facility] Appointment Type:PC OV Appointment Date:03/22/2023 12:00:00 PM Scheduled Provider:BRENT VILLATORO Location:[facility] PM Appointment Type:PM OV Appointment Date:03/29/2023 11:30:00 AM Scheduled Provider: Location:[facility] Appointment Type:ACC POC Established Patient Future Scheduled Tests Laboratory* Prostate Specific Antigen 08/25/22 * Thyroid Stimulating Hormone 08/25/22 * Free T4 08/25/22 * Uric Acid 08/25/22 * Vitamin B12 Level 08/25/22 * A1C Hemoglobin 08/25/22 * Complete Blood Count 08/25/22 * Lipid Profile 08/25/22 * Albumin/Creatinine Ratio, Random Urine 08/25/22 * Vitamin D Level 08/25/22 * Complete Metabolic Panel 08/25/22 [facility] Evaluation + Plan note Future Appointments Appointment Date:04/12/2023 01:15:00 PM Scheduled Provider: Location:[facility] Appointment Type:NS Post Op Appointment Date:04/19/2023 11:30:00 AM Scheduled Provider: Location:[facility] Appointment Type:ACC POC Established Patient Appointment Date:04/19/2023 12:00:00 PM Scheduled Provider:BRENT VILLATORO Location:[facility] PM Appointment Type:PM OV Appointment Date:09/19/2023 11:00:00 AM Scheduled Provider:GAGANDEEP BARCLAY DO Location:[facility] Appointment Type:[facility] Evaluation + Plan note Future Appointments Appointment Date:04/19/2023 11:30:00 AM Scheduled Provider: Location:[facility] Appointment Type:ACC POC Established Patient Appointment Date:04/19/2023 12:00:00 PM Scheduled Provider:BRENT VILLATORO Location:[facility] PM Appointment Type:PM OV Appointment Date:09/19/2023 11:00:00 AM Scheduled Provider:GAGANDEEP BARCLAY DO Location:[facility] Appointment Type:[facility] Evaluation + Plan note Future Appointments Appointment Date:05/24/2023 11:45:00 AM Scheduled Provider:BRENT VILLATORO Location:[facility] PM Appointment Type:PM OV Appointment Date:09/19/2023 11:00:00 AM Scheduled Provider:GAGANDEEP BARCLAY DO Location:[facility] Appointment Type:[facility] Evaluation + Plan note Future Appointments Appointment Date:06/21/2023 11:15:00 AM Scheduled Provider: Location:[facility] Appointment Type:ACC POC Established Patient Appointment Date:06/21/2023 11:45:00 AM Scheduled Provider:BRENT VILLATORO Location:[facility] Appointment Type:PM OV Appointment Date:09/19/2023 11:00:00 AM Scheduled Provider:GAGANDEEP BARCLAY DO Location:[facility] Appointment Type:PC OV [facility] Evaluation + Plan note Future Appointments Appointment Date:10/09/2023 11:30:00 AM Scheduled Provider:AKSHAT SAWYER Location:[facility] Appointment Type:PM OV Appointment Date:10/20/2023 10:00:00 AM Scheduled Provider:GAGANDEEP BARCLAY DO Location:[facility] Appointment Type:PC OV [facility] Evaluation + Plan note Future Appointments Appointment Date:11/06/2023 11:30:00 AM Scheduled Provider:AKSHAT SAWYER Location:[facility] Appointment Type:PM OV Appointment Date:11/15/2023 10:00:00 AM Scheduled Provider:GAGANDEEP BARCLAY DO Location:[facility] Appointment Type:PC OV Future Scheduled Tests Radiology* US Renal 10/20/23 [facility] Evaluation + Plan note Future Appointments Appointment Date:11/06/2023 11:30:00 AM Scheduled Provider:AKSHAT SAWYER Location:[facility] Appointment Type:PM OV Appointment Date:11/15/2023 10:00:00 AM Scheduled Provider:GAGANDEEP BARCLAY DO Location:[facility] Appointment Type:PC OV Future Scheduled Tests Laboratory* Basic Metabolic Panel 10/24/23 Radiology* US Renal 10/20/23 [facility] Evaluation + Plan note Future Appointments Appointment Date:12/11/2023 11:30:00 AM Scheduled Provider:AKSHAT SAWYER Location:[facility] Appointment Type:PM OV Future Scheduled Tests Radiology* US Renal 10/20/23 [facility] Evaluation + Plan note Future Appointments Appointment Date:04/08/2024 11:30:00 AM Scheduled Provider:AKSHAT SAWYER APRN-RASPBERRY CHECKER Location:[facility] Appointment Type:PM OV Future Scheduled Tests Laboratory* Basic Metabolic Panel 11/24/23 Radiology* US Renal 10/20/23 [facility] Evaluation + Plan note Future Appointments Appointment Date:05/06/2024 10:45:00 AM Scheduled Provider:AKSHAT SAWYER APRN-RASPBERRY CHECKER Location:[facility] Appointment Type:PM OV Future Scheduled Tests Laboratory* Uric Acid 04/09/24 Radiology* US Renal 10/20/23 [facility] Evaluation + Plan note Future Appointments Appointment Date:05/06/2024 10:45:00 AM Scheduled Provider:AKSHAT SAWYER APRN-RASPBERRY CHECKER Location:[facility] Appointment Type:PM OV Diagnostic Tests Pending * Lipoprotein (a) 04/11/24 * Apolipoprotein B 04/11/24 Future Scheduled Tests Laboratory* Uric Acid 04/09/24 Radiology* US Renal 10/20/23 [facility] Evaluation + Plan note Future Appointments Appointment Date:05/06/2024 10:45:00 AM Scheduled Provider:AKSHAT SAWYER APRN-RASPBERRY CHECKER Location:[facility] Appointment Type:PM OV Diagnostic Tests Pending * Apolipoprotein B 04/18/24 Future Scheduled Tests Laboratory* Uric Acid 04/09/24 Radiology* US Renal 10/20/23 [facility] Evaluation + Plan note Future Appointments Appointment Date:10/04/2024 10:45:00 AM Scheduled Provider:GAGANDEEP BARCLAY DO Location:[facility] Appointment Type:PC OV Follow Up Appointment Date:10/07/2024 01:45:00 PM Scheduled Provider:AKSHAT SAWYER APRN-RASPBERRY CHECKER Location:[facility] Appointment Type:PM OV Diagnostic Tests Pending * Apolipoprotein B 09/23/24 Future Scheduled Tests Radiology* US Renal 10/20/23 [facility] Evaluation + Plan note Future Appointments Appointment Date:02/05/2025 12:30:00 PM Scheduled Provider:SAMANTHA URIBE Location:[facility] Appointment Type:PM OV Future Scheduled Tests Laboratory* Uric Acid 10/04/24 * A1C Hemoglobin 10/04/24 * Complete Blood Count 10/04/24 * Complete Metabolic Panel 10/04/24 [facility] Evaluation noteNo assessment information available [facility] Work Phone: Evaluation note* Diagnosis Onset Date Resolution Status Acute gout acute Inability to ambulate due to multiple joints acute [facility] Work Phone: Hospital course Narrative No data available for this section [facility] Hospital Discharge instructions No data available for this section [facility] Progress note No data available for this section [facility] Advance Directives No Advanced Directives Records Found Advance Directive Response Recorded Date/ Time Advance Directives No January 20, 2020 7:58am Living Will No June 04, 2021 10:24am Power of Instrumentation Supervisor No June 04 10:24am Advance Directive Response Recorded Date/ Time Advance Directives No January 20, 2020 7:58am Living Will No December 01, 2021 12:13pm Power of Instrumentation Supervisor No November 12:13pm Advance Directive Response Recorded Date/ Time Advance Directives No January 20, 2020 7:58am Living Will No December 01, 2021 6:19pm Power of Instrumentation Supervisor No November 6:19pm Advance Directive Response Recorded Date/ Time Advance Directives No January 20, 2020 6:58am Living Will No December 01, 2021 5:19pm Power of Instrumentation Supervisor No November 5:19pm Chief Complaint and Reason [...] or prosecute any alcohol or drug abuse patient.[facility] Care Team (unrecognized sect ion and content) Care Team Personnel Name: GAGANDEEP BARCLAY DO Position: P4 Physician - Primary Care Member Role: Primary Care Physician Address: Address: [address] [place] [address] Care Team Related Persons Name: TANNA GRISSOM Care Team Personnel Name: GAGANDEEP BARCLAY DO Position: P4 Physician - Primary Care Member Role: Primary Care Physician Address: Address: [address] [place] [address] Care Team Related Persons Name: TANNA GRISSOM [...] section and content) DATE CREATED AUTHOR 11/24/2023 [facility] ([place]) DATE CREATED AUTHOR AUTHOR'S ORGANIZ ATION 03/02/2024 [facility] DATE CREATED AUTHOR AUTHOR'S ORGANIZ ATION 08/18/2024 [facility] DATE CREATED AUTHOR AUTHOR'S ORGANIZ ATION 01/18/2025 [facility] FOR RECORDS PERTAINING TO PATIENTS WHO ARE [...] BE BASED ON THE PRIMARY CLINICAL RECORDS. [facility] [employer] provides no warranty or guarantee of the accuracy or completeness of information in this document.
[2025-03-12 10:24] LABS: AST(SGOT) 18 U/L (<=37); Alanine Aminotransfer ALT/SGPT 16 U/L (<=46); Albumin, Serum 2.8 g/dL (3.4-4.8); Alkaline Phosphatase 29 U/L (40-129); Bilirubin, Direct 0.18 mg/dL (0.00-0.30); Globulin 1.7 g/dL (2.2-4.2)
[2025-03-12] MEDS: HUM PROTHROMBIN CPLX(PCC)-LANS 5,000 UNIT in Viaflex Bag 1 BAG 500 UNIT IV (10:59)
[2025-03-12] MEDS: Phytonadione (Vit K) 10 MG in 0.9% Normal Saline (50mL Bag) 50 ML 150 MG IV (10:59)
--- NOTE | 2025-03-12 12:07 | PCM.HP.STD ---
[facility] - General General Date of Service: 03/12/25 Chief Complaint: chest pain [facility] Narrative ARELI CARY, is a 64 M who presents chest pain. This is a 64-year-old male with a history of coronary artery disease who is presenting with left-sided chest pain. Been ongoing for about a week. Presented to the emergency room on the and underwent workup that was unremarkable. His hemoglobin was 10.6 and his INR was 2.6. Patient does take warfarin. He was sent home. Patient returns today with the same complaints in his hemoglobin was 4.6. His INR was 7.8. Patient had been complaining of melena for the past week. Previously the patient's hemoglobins dated back to 2021, last time we have available hemoglobins on him was 15 at that time. In the emergency room, patient received IV pantoprazole, vitamin K and prothrombin complex concentrate. He was also ordered 3 units of packed red blood cells. He denies ever having had a GI bleed before. Patient states that the chest pain is not exertional but is about every hour on the hour. [facility] Medical History Spinal cord stimulator status Varicose veins of both legs with edema Ulcer of left lower extremity with fat layer exposed History of ST elevation myocardial infarction (STEMI) (03/03/19) Inability to ambulate due to multiple joints Acute gout Wears glasses Ambulates with cane Arthritis History of Walker's palsy Nicotine vapor product user Shortness of breath on exertion History of edema History of steroid therapy Atherosclerosis of coronary artery of [place] heart without angina pectoris Diastolic congestive heart failure Cardiac dysrhythmia Paroxysmal atrial fibrillation Diastolic dysfunction with acute on chronic heart failure Paroxysmal atrial flutter Cardiopulmonary arrest (08/20/18) History of deep vein thrombosis (DVT) of lower extremity Nicotine dependence Chronic pain Obstructive sleep apnea COPD (chronic obstructive pulmonary disease) Failed back syndrome of lumbar spine Degeneration of intervertebral disc of lumbosacral region Sacrococcygeal disorders, not elsewhere classified Morbid obesity Sacroiliitis, not elsewhere classified Essential (primary) hypertension Home Medications ?Medication ?Instructions ?Recorded ?Last Taken ?Type fluticasone propionate 50 1 spray NASAL DAILY PRN PRN 09/27/18 1 Week Ago History mcg/actuation nasal Allergies ~11/24/21 spray,suspension furosemide 40 mg tablet 40 mg PO BID #60 tabs 09/28/18 12/01/21 Rx aspirin 81 mg tablet,delayed 81 mg PO DAILY@0800 03/05/19 12/18/21 Rx release atorvastatin 80 mg tablet 80 mg PO QHS #30 tabs 03/05/19 12/01/21 Rx albuterol sulfate 90 mcg/actuation 1 - 2 puff inhalation Q4H PRN PRN 02/19/20 1 Week Ago History aerosol inhaler Asthma ~11/24/21 carvedilol 6.25 mg tablet 6.25 mg PO BID heart 02/19/20 05/09/22 History amlodipine 5 mg tablet 5 mg PO DAILY 12/01/21 05/09/22 History hydralazine 50 mg tablet 50 mg PO BID 12/01/21 05/09/22 History potassium chloride 20 mEq 20 meq PO DAILY 12/01/21 12/01/21 History tablet,extended release(part/cryst) (Klor-Con M) sildenafil (pulm.hypertension) 20 20 mg PO TID PRN HTN 12/01/21 Unknown History mg tablet trazodone 50 mg tablet 50 mg PO QHS PRN Sleep 12/01/21 Unknown History allopurinol 100 mg tablet 100 mg PO DAILYCM 30 days #30 tabs 12/02/21 Unknown Rx lisinopril 40 mg tablet 40 mg PO DAILY blood pressure 12/28/21 05/09/22 History warfarin 4 mg tablet 4 mg PO SUMOWETHSA 12/28/21 05/04/22 History warfarin 4 mg tablet 6 mg PO TUFR 12/28/21 05/04/22 History cephalexin 250 mg capsule 250 mg PO BID 03/24/23 Unknown History sotalol 80 mg tablet 80 mg PO BID bp,heart #180 tabs 03/24/23 Unknown Rx cholecalciferol (vitamin D3) 50 50 mcg PO DAILY 10/26/23 Unknown History mcg (2,000 unit) capsule (Vitamin D3) clonidine HCl 0.1 mg tablet 0.1 mg PO BID 10/26/23 Unknown History doxycycline hyclate 100 mg capsule 100 mg PO BID 10/26/23 Unknown History fluticasone 250 mcg-salmeterol 50 1 ea inhalation BID 10/26/23 Unknown History mcg/dose blistr powdr for inhalation lidocaine 4 % topical cream topical TID PRN PRN pain 10/26/23 Unknown History oxycodone-acetaminophen 7.5 mg-325 1 tab PO 4X/DAY PRN 12/19/23 Unknown History mg tablet Allergy/AdvReac Type Severity Reaction Status Date / Time Penicillins Allergy Hives Verified 03/12/25 09:06 pregabalin (From Lyrica) Allergy Hives Verified 03/12/25 09:06 red dye Allergy Angioedema Verified 03/12/25 09:06 Family History Mother CVA (cerebral vascular accident) Father , Murdered per patient No problems noted. Surgical History History of back surgery History of coronary artery stent placement (03/03/19) History of total knee arthroplasty History of total hip arthroplasty Social History household members: significant other Smoking Status: Former smoker alcohol intake: never substance use type: does not use ROS ROS Narrative Lower extremity edema. Has been having some nausea and vomiting but no hematemesis. Shortness of breath. Patient's Goals Of Care . What would you like to achieve or improve as a result of your hospital stay?: Find out what is going on and fix it. Vital Signs Vital Signs Vital Signs: 03/12/25 09:00 03/12/25 09:04 03/12/25 09:26 Temperature 36.7 C Temperature Source Oral Pulse Rate 94 112 H Respiratory Rate 18 Respiratory Effort Normal Non-Labored Blood Pressure 116/99 H 130/70 H Blood Pressure Mean 104 Blood Pressure Source Blood Pressure Position Blood Pressure Location Pulse Ox 95 Oxygen Delivery Method Room Air 03/12/25 09:44 03/12/25 10:00 03/12/25 11:00 Temperature Temperature Source Pulse Rate 88 88 86 Respiratory Rate 18 18 18 Respiratory Effort Blood Pressure 106/42 L 129/54 H 139/60 H Blood Pressure Mean 63 79 86 Blood Pressure Source Blood Pressure Position Blood Pressure Location Pulse Ox 99 99 99 Oxygen Delivery Method Nasal Cannula 03/12/25 11:31 03/12/25 11:39 Temperature 36.6 C 36.6 C Temperature Source Oral Oral Pulse Rate 102 H 102 H Respiratory Rate 18 18 Respiratory Effort Blood Pressure 129/60 H 130/68 H Blood Pressure Mean 83 88 Blood Pressure Source Monitor Monitor Blood Pressure Position Semi-Fowlers Blood Pressure Location Right Arm Pulse Ox 97 98 Oxygen Delivery Method Room Air Room Air Weight Weight: 148.5 kg Body Mass Index (BMI) 45.6 Physical Exam Const healthy appearing and well nourished Constitutional Narrative: Lying in bed, currently being transfused. Having some shivers in the bed. Alert and oriented. Appropriate. HEENT normocephalic and head/scalp atraumatic Resp normal respiratory effort, no retractions, no use of accessory muscles and clear to auscultation bilaterally Cardio regular rate, regular rhythm, S1 normal heart sound and S2 normal heart sound GI normal to inspection, nondistended, normoactive bowel sounds, soft to palpation, non-tender and non-distended Extremity Extremity Narrative: Nonpitting lower extremity edema Neuro Sensorium / Orientation: awake and alert Psych affect normal Results Lab / Micro Data 03/12/25 09:15 03/12/25 09:15 Labs: Laboratory Results - last 24 hr 03/12/25 09:13: PT 67.8 H, INR 7.8 H* 03/12/25 09:15: WBC 15.7 H, RBC 1.64 L, Hgb 4.6 L*, Hct 15.1 L, MCV 92.1 D, MCH 28.0, MCHC 30.5 L, RDW Std Deviation 60.7 H, RDW Coeff of Raheem 19.6 H, Plt Count 200, MPV 11.7, Immature Gran % (Auto) 0.800, Neut % (Auto) 75.2 H, Lymph % (Auto) 14.2 L, [place] % (Auto) 8.4, Eos % (Auto) 1.0, Baso % (Auto) 0.4, Absolute Neuts (auto) 11.8 H, Absolute Lymphs (auto) 2.24, Nucleated RBC % 0.7, Sodium 141, Potassium 3.7, Chloride 109 H, Carbon Dioxide 20.6, Anion Gap 12, BUN 43 H, Creatinine 1.28 H, Estim Creat Clear Calc 85.11, Est GFR (MDRD) Non-Af 62, BUN/Creatinine Ratio 33.3 H, Glucose 143 H, Calcium 7.9, Magnesium 1.8, Total Bilirubin 0.35, Direct Bilirubin 0.18, AST 18, ALT 16, Alkaline Phosphatase 29 L, Troponin T High Sens 24 H D, Total Protein 4.5 L, Albumin 2.8 L, Globulin 1.7 L 03/12/25 09:54: APTT 46.1 H, Blood Type O POSITIVE, Antibody Screen NEGATIVE, Crossmatch See Detail Micro: Microbiology 03/12/25 09:40 Stool Stool Occult Blood (RACHEL) - Final Occult Blood Positive EKG Initial EKG: Attestation: I personally reviewed and interpreted this EKG as follows: Prior EKG tracings: available for review EKG Rhythm Intrepretation: Atrial Fibrillation Imaging Radiology Impression Chest X-Ray 03/12/25 09:08 IMPRESSION: No active cardiopulmonary disease. Mild cardiomegaly. Reading Location: [place] [address] Abdomen/Pelvis CTA 03/12/25 09:44 IMPRESSION: 1. No evidence of active gastrointestinal hemorrhage. 2. No evidence of aneurysm. 3. Widely patent visceral arteries. 4. Atherosclerotic calcific disease and tortuosity of the aorta and iliac arteries. 5. Hepatic cysts. 6. Bilateral renal cysts. 7. Prostatomegaly. 8. Diverticulosis. 9. Cholelithiasis. 10. Postoperative changes of the lumbosacral spine. 11. 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 12. Other nonacute findings detailed above. Reading Location: [place] [address] Assessment & Plan Assessment/Plan (1) Acute blood loss anemia: PLAN: Hemoglobin 4.6, down from 10.6 from the . Last available hemoglobin we have is from December 02, 2021 where was 15.3 at that time. Unclear what the patient's hemoglobin had been prior to the . The patient reports that he was having melena before that time. Patient being transfused 3 units of packed red blood cells. Will continue to monitor Likely secondary to a GI bleed. (2) GI bleed: PLAN: Suspect upper. Patient endorses using to leave per day. Patient received IV pantoprazole in the emergency room and will continue that for now. GI has been contacted and will be seeing the patient in consultation with tentative plan for endoscopy today. INR is to be rechecked as patient's INR was significantly high at 7.8 earlier today. He did receive medications to reverse that but GI informed the emergency room that if the INR is less than 7 that the patient could proceed with an upper endoscopy today. Hold warfarin and aspirin (3) Coagulopathy: PLAN: Secondary to warfarin INR 7.8 Patient received vitamin K as well as PCC Follow-up INR pending (4) Chest pain: PLAN: Suspect related with the anemia. Patient does have a history of stenting. EKG does not show any acute changes.\ Patient not a candidate for acute coronary intervention given his GI bleed and anemia. PLAN: Plan Hypertension: Waiting on medications to be reconciled. Obesity class III: BMI of 45.7 kg/m?. Complicates care and recovery Paroxysmal atrial fibrillation: Warfarin on hold given the GI bleed and the anemia. VTE prophylaxis with SCDs CODE STATUS: Verified with the patient. Patient wishes to be full code. Charges/Coding Visit Charges Inpatient E&M: 54615 Init Hosp L3
--- OUTSIDE RECORDS SUMMARY | 2025-03-12 12:15 | XMS RPT_ITS | CCD ---
Author Organization [facility] CliniSysd Care Team Providers Care Arts Therapist Name Role Phone Terry Turk Primary Care [...] DO, GAGANDEEP E Primary Care Unavailable VILLATORO 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, BRENT Brown Attending Sherry vailable BARCLAY DO, GAGANDEEP E Primary Care Unavailable BARCLAY DO, GAGANDEEP E Primary Care Unavailable VILLATORO 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, BRENT Brown Attending Sherry vailable 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 BRENT Brown Attending Sherry vailable BARCLAY DO, GAGANDEEP E Primary Care Unavailable BARCLAY DO, GAGANDEEP E Primary Care Unavailable VILLATORO 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, BRENT Brown Attending Sherry vailable BARCLAY DO, [...] BARCLAY DO, GAGANDEEP E Primary Care Unavailable 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, BRENT Brown Attending Sherry vailable BARCLAY DO, [...] Barclay Primary Care Unavailable Maria Del Carmen, [place] Attending Unavailable Oleghe, Efewongbe Consulting Unavailable Gagandeep [...] GAGANDEEP BARCLAY DO Primary Care Unavailable RONY 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SAMANTHA Attending Unavailab le DIGNA 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AKSHAT Attending Sherry vailable GAGANDEEP BARCLAY DO Primary Care Unavailable GAGANDEEP BARCLAY DO Attending Unavailable GAGANDEEP BARCLAY DO Primary Care Unavailable BARCLAY DO, GAGANDEEP E Primary Care Unavailable BARCLAY DO, GAGANDEEP E Attending Unavailable RONY 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, SAMANTHA Attending Unavailab le BARCLAY DO, GAGANDEEP [...] BARCLAY DO, GAGANDEEP E Attending Unavailable SHAUNA 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, BRENT Brown Attending Sherry vailable DENY DO, GAGANDEEP E Primary Care Unavailable BARCLAY DO, GAGANDEEP E Primary Care Unavailable BEN AUGUST MD Attending Unavailable Allergies Allergy Classification Reported Allergen(s) Allergy Type Date of Onset Reaction(s) Facility Contrast Media (1 source) Contrast media Substance Allergy 2 Rash, [facility] Work Phone: Penicillins (antibiotic) (1 source) Penicillins Drug [facility], [facility] Work Phone: pregabalin (1 source) pregabalin Drug Allergy 2 Swelling [facility] Work Phone: (20 sources) Contrast media; Translations: [red dye] Allergy to substance 2 Angioedema, [facility] (7 sources) Penicillins; Translations: [Penicillins] Allergy to substance 2 [facility] (20 sources) pregabalin; Translations: [pregabalin] Drug Allergy 2 [facility] (20 sources) Penicillin; Translations: [penicillins] Drug Allergy [facility] (1 source) pregabalin Drug Allergy 4 [facility] (2 sources) Penicillin; Translations: [penicillins] Drug Allergy [facility] Medications Current Medications Medication Drug Class(es) [...] 1-2 tablets per dose, [facility]: [facility][id number], Chronic pain Lumbar postlaminectomy syndrome, 180, cm, [...] 1-2 tablets per dose, [facility]: [facility] #[id number], Chronic pain Lumbar postlaminectomy syndrome, 180, cm, [...] day(s), # 120 tab(s), 0 Refill(s), [id number], Chronic radicular lumbar pain Chronic pain, 185, [...] pain, # 120 tab(s), 0 Refill(s), [facility][id number], Lumbar spondylosis Lumbar spinal stenosis, 185, cm, [...] pain, # 120 tab(s), 0 Refill(s), [facility]: [facility] #[id number], Lumbar spondylosis Lumbar spinal stenosis, 180, cm, [...] days, # 120 tab(s), 0 Refill(s), Pharmacy: [facility]/pharmacy #[id number], Osteoarthritis, 180.3, cm, 08/20/21 9:49:00 EDT, [...] 01/08/25, # 120 tab(s), 0 Refill(s), [id number], Lumbar postlaminectomy syndrome Chronic radicular lumbar pain, [...] 09/09/24, # 120 tab(s), 0 Refill(s), [id number], Lumbar postlaminectomy syndrome Chronic radicular lumbar pain, [...] 120 tab(s), 0 Refill(s), [facility]: [facility] #[id number], Lumbar postlaminectomy syndrome, 180, cm, 11/06/23 11:28:00 [...] 120 tab(s), 0 Refill(s), [facility]: [facility] #[id number], Lumbar postlaminectomy syndrome, 180, cm, 05/24/23 11:48:00 [...] 120 tab(s), 0 Refill(s), [facility]: [facility] #[id number], Lumbar postlaminectomy syndrome, 180, cm, 04/19/23 12:15:00 EST, Height, 156.3, kg, 04/19/23 12:15:00 EST, Dosing Weight Start Date: 04/19/23 Stop Date: 05/19/23 Status: Ordered [id number] 200 actuat albuterol 0.09 mg/actuat metered dose inhaler (20 sources) beta2-Adrenergic Agonist Start: 02-20-2020 take 2 puff(s) by inhalation every four hours as needed for wheezing ProAir HFA MDI (90 mcg/inh) inhalation aerosol 2 puff(s), Inhalation, q4h, PRN as needed for wheezing, # 1 EA, 11 Refill(s), Pharmacy: [facility]/pharmacy #[id number], 179, cm, 02/19/20 13:43:00 EST, Height, [...] qDayPC, # 180 tab(s), 0 Refill(s), Pharmacy: [facility], 180, cm, 10/04/24 10:49:00 EDT, Height, kg, 10/04/24 10:49:00 EDT, Dosing Weight Start Date: 10/04/24 Status: Ordered Medication Dispense Status: Completed Quantity: 180.0 Unit: tab(s) Total Allowed Fills: 1 Fills Dispensed: 0 Start: 06-09-2024 allopurinol 10 0 mg oral tablet Dose : 200 mg = 2 tab(s), Oral, qDayPC, # 180 tab(s), 0 Refill(s), [email or web address][id number], 180, cm, 06/03/24 10:49:00 EDT, Height, kg, 06/03/24 10:49:00 EDT, Dosing Weight Start Date: 06/09/24 Status: Ordered Quantity: 180.0 Unit: tab(s) Repeat number: 1 Start: 10-20-2023 allopurinol 10 0 mg oral tablet Dose : 200 mg = 2 tab(s), Oral, qDayPC, # 180 tab(s), 0 Refill(s), [facility]: [facility] #[id number], 180, cm, 10/20/23 10:07:00 EDT, Height, kg, 10/20/23 9:57:00 EDT, Dosing Weight Start Date: 10/20/23 Status: Ordered Start: 09-19-2023 allopurinol 10 0 mg oral tablet Dose : 100 mg = 1 tab(s), Oral, qDayPC, # 90 tab(s), 1 Refill(s), [facility]: [facility] #[id number], 180, cm, 09/19/23 11:17:00 EDT, Height, kg, [...] 90 tab(s), 0 Refill(s), [facility]: [facility] #[id number], 180, cm, 03/15/23 12:13:00 EST, Height, kg, 03/15/23 12:13:00 EST, Dosing Weight Start Date: 03/17/23 Status: Ordered Start: 12-02-2021 allopurinol 10 0 mg oral tablet Dose : 100 mg = 1 tab(s), Oral, qDayPC, # 90 tab(s), 1 Refill(s), [facility]: [facility] #[id number], 180, cm, 05/24/22 10:57:00 EST, Height, kg, [...] 30 tab(s), 0 Refill(s), [facility]: [facility] #[id number], 180, cm, 10/09/23 11:40:00 EDT, Height, kg, 10/09/23 11:40:00 EDT, Dosing Weight Start Date: 10/09/23 Stop Date: 11/08/23 Status: Ordered amLODIPine 5 mg oral tablet (20 sources) Dihydropyridine Calcium Channel Zac Start: 09-10-2024 End: 10-10-2024 amLODIPine 5 mg oral tablet Dose : 5 mg = 1 tab(s), Oral, qDay, # 100 tab(s), 0 Refill(s), [facility]: [facility], 180, cm, 10/04/24 10:49:00 EDT, Height, [...] 100 tab(s), 0 Refill(s), [facility]: [facility] #[id number], 180, cm, 09/19/23 11:17:00 EDT, Height, kg, 09/19/23 11:17:00 EDT, Dosing Weight Start Date: 09/19/23 Status: Ordered Start: 03-16-2023 take 1 tablet by elyse th once daily amLODIPine 5 mg oral tablet See Instructions, TAKE 1 TABLET BY MOUTH EVERY DAY, # 30 tab(s), 0 Refill(s), Pharmacy: [facility], 180, cm, 03/15/23 12:13:00 EST, Height, kg, 03/15/23 12:13:00 EST, Dosing Weight Start Date: 03/16/23 Status: Ordered Start: 09-04-2022 take 1 tablet by elyse th once daily amLODIPine 5 mg oral tablet See Instructions, TAKE 1 TABLET BY MOUTH EVERY DAY, # 90 tab(s), 1 Refill(s), Pharmacy: [facility], 189.1, cm, 08/25/22 10:51:00 EDT, Height, kg, 08/25/22 10:51:00 EDT, Dosing Weight Start Date: 09/04/22 Status: Ordered Start: 06-21-2021 take 1 tablet by elyse th once daily amLODIPine 5 mg oral tablet See Instructions, TAKE 1 TABLET BY MOUTH EVERY DAY, # 90 tab(s), 1 Refill(s), Pharmacy: [facility], 180, cm, 02/28/22 10:42:00 EST, [...] 90 tab(s), 3 Refill(s), [facility]: [facility] #[id number], 189.1, cm, 08/25/22 10:51:00 EDT, Height, kg, [...] qDay, # 100 tab(s), 3 Refill(s), Pharmacy: [facility], 180, cm, 10/04/24 10:49:00 EDT, Height, kg, 10/04/24 10:49:00 EDT, Dosing Weight Start Date: 10/04/24 Status: Ordered Medication Dispense Status: Completed Quantity: 100.0 Unit: tab(s) Total Allowed Fills: 4 Fills Dispensed: 0 Start: 07-26-2024 atorvastatin 8 0 mg oral tablet Dose : 80 mg = 1 tab(s), Oral, qDay, # 100 tab(s), 3 Refill(s), [facility]: [facility] #[id number], 180.3, cm, 07/26/24 10:56:00 EDT, Height, kg, 07/26/24 10:56:00 EDT, Dosing Weight Start Date: 07/26/24 Status: Ordered Quantity: 100.0 Unit: tab(s) Repeat number: 4 Start: 03-05-2019 atorvastatin 8 0 mg oral tablet Dose : 80 mg = 1 tab(s), Oral, qDay, # 90 tab(s), 3 Refill(s), [facility]: [facility] #[id number], 180, cm, 05/24/22 10:57:00 EST, Height, kg, 05/24/22 10:57:00 EST, Dosing Weight Start Date: 05/24/22 Status: Ordered cephalexin 500 mg oral capsule (20 sources) Cephalosporin Antibacterial Start: 10-04-2024 cephalexin 500 mg or al capsule Dose : 500 mg = 1 cap(s), Oral, BID, hx of persistant hip infections post-replacement, # 180 cap(s), 1 Refill(s), Pharmacy: [facility], 180, cm, 10/04/24 10:49:00 EDT, [...] # 180 cap(s), 1 Refill(s), [facility]: [email or web address] #[id number], 180, cm, 09/19/23 11:17:00 EDT, Height, 155, kg, 09/19/23 11:17:00 EDT, Dosing Weight Start Date: 09/19/23 Status: Ordered Quantity: 180.0 Unit: cap(s) Repeat number: 2 Start: 05-05-2023 cephalexin 500 mg oral capsule Dose : 500 mg = 1 cap(s), Oral, BID, hx of persistant hip infections post-replacement, # 180 cap(s), 1 Refill(s), Pharmacy: [facility], 180, cm, 04/19/23 12:15:00 EST, Height, 156.3, kg, 04/19/23 12:15:00 EST, Dosing Weight Start Date: 05/05/23 Status: Ordered Start: 03-23-2023 cephalexin 500 mg oral capsule Dose : 500 mg = 1 cap(s), Oral, BID, hx of persistant hip infections post-replacement, # 180 cap(s), 1 Refill(s), [facility]: [email or web address] #[id number], 180, cm, 03/22/23 12:03:00 EST, Height, 159, kg, 03/22/23 12:03:00 EST, Dosing Weight Start Date: 03/23/23 Status: Ordered Start: 04-26-2022 cephalexin 500 mg oral capsule Dose : 500 mg = 1 cap(s), Oral, q12h, # 180 cap(s), 1 Refill(s), [facility]: [facility] #[id number], 189.1, cm, 08/25/22 10:51:00 EDT, Height, 160.8, [...] DAY, # 200 tab(s), 1 Refill(s), Pharmacy: [facility], 180, cm, 10/04/24 10:49:00 EDT, [...] 200 tab(s), 1 Refill(s), [facility]: [facility] #[id number], 180, cm, 04/09/24 11:05:00 EST, Height, kg, 04/09/24 11:05:00 EST, Dosing Weight Start Date: 04/09/24 Status: Ordered Quantity: 200.0 Unit: tab(s) Repeat number: 2 Start: 09-19-2023 take 1 tablet by elyse th twice daily cloNIDine 0.1 mg oral tablet See Instructions, TAKE 1 TABLET BY MOUTH TWICE A DAY, # 200 tab(s), 0 Refill(s), [facility]: [facility] #[id number], 180, cm, 09/19/23 11:17:00 EDT, Height, kg, 09/19/23 11:17:00 EDT, Dosing Weight Start Date: 09/19/23 Status: Ordered Start: 03-16-2023 take 1 tablet by elyse th twice daily cloNIDine 0.1 mg oral tablet See Instructions, TAKE 1 TABLET BY MOUTH TWICE A DAY, # 60 tab(s), 0 Refill(s), Pharmacy: [facility], 180, cm, 03/15/23 12:13:00 EST, Height, kg, 03/15/23 12:13:00 EST, Dosing Weight Start Date: 03/16/23 Status: Ordered Start: 09-04-2022 take 1 tablet by elyse twice daily cloNIDine 0.1 mg oral tablet See Instructions, TAKE 1 TABLET BY MOUTH TWICE A DAY, # 180 tab(s), 1 Refill(s), Pharmacy: [facility], 189.1, cm, 08/25/22 10:51:00 EDT, Height, kg, 08/25/22 10:51:00 EDT, Dosing Weight Start Date: 09/04/22 Status: Ordered Start: 02-28-2022 take 1 tablet by elyse twice daily cloNIDine 0.1 mg oral tablet See Instructions, TAKE 1 TABLET BY MOUTH TWICE A DAY, # 180 tab(s), 1 Refill(s), Pharmacy: [facility], 180, cm, 02/28/22 10:42:00 EST, Height, kg, 02/28/22 10:42:00 EST, Dosing Weight Start Date: 02/28/22 Status: Ordered Start: 03-12-2021 take 1 tablet by elyse twice daily cloNIDine 0.1 mg oral tablet See Instructions, TAKE 1 TABLET BY MOUTH TWICE A DAY, # 180 tab(s), 3 Refill(s), Pharmacy: [facility]/pharmacy #[id number], 179, cm, 12/14/20 11:13:00 EDT, Height, [...] 30-45 min prior to procedure, must have sales driver to and from procedure., # 1 tab(s), 0 Refill(s), Pharmacy: [facility] #[id number], Chronic radicular lumbar pain, 180, cm, 08/24/22 9:48:00 EDT, Height, 161.1 Start Date: 08/24/22 Status: Ordered DME MISCellaneous (12 sources) Start: 10-20-2023 DME MISCellane ous See Instructions, hydrofera blue (should memfoam not be available.), # 50 EA, 0 Refill(s), [email or web address] #[id number], Leg wound, left Left leg swelling, 180, [...] care., # 50 EA, 0 Refill(s), Pharmacy: [facility] #[id number], Leg wound, left Left leg swelling, 180, [...] available.), # 50 EA, 0 Refill(s), Pharmacy: [facility] #[id number], Leg wound, left Left leg swelling, 180, [...] # 50 EA, 0 Refill(s), [facility] #[id number], Leg wound, left Left leg swelling, 180, [...] # 50 EA, 0 Refill(s), [facility]: [facility] #[id number], Leg wound, left Left leg swelling, 180, cm, 10/20/23 10:07:00 EDT, Height, 156.2, kg, 10/20/23 9:57:00 EDT, Dosing Weight Start Date: 10/20/23 Status: Ordered Start: 10-20-2023 DME MISCellane ous See Instructions, polymem foam for wound care., # 50 EA, 0 Refill(s), [facility]: [email or web address] #[id number], Leg wound, left Left leg swelling, 180, [...] 0 Refill(s), 11/03/23 10:23:00 AM EDT, Pharmacy: [facility] #[id number], 180, cm, 10/20/23 10:07:00 EDT, Height, 156.2, kg, 10/20/23 9:57:00 EDT, Dosing Weight Start Date: 10/24/23 Stop Date: 11/03/23 Status: Ordered Start: 03-28-2023 End: 04-07-2023 doxycycline hyclate 100 mg o ral capsule Dose : 100 mg = 1 cap(s), Oral, BID, X 10 day(s), # 20 cap(s), 0 Refill(s), 04/07/23 11:44:00 AM EST, [email or web address][id number], 180.3, cm, 03/28/23 6:32:00 EST, Height, 153.4, kg, 03/28/23 6:32:00 EST, Dosing Weight Start Date: 03/28/23 Stop Date: 04/07/23 Status: Ordered fluticasone propionate 0.05 mg/actuat metered dose nasal spray (20 sources) Corticosteroid Start: 10-04-2024 take 1 dose nasal route once daily in the morning fluticasone 50 mcg/inh NASAL spray Dose = 2 spray(s), Nostril, each, qAM, # 3 EA, 1 Refill(s), Pharmacy: [facility], 180, cm, 10/04/24 10:49:00 EDT, Height, kg, 10/04/24 10:49:00 EDT, Dosing Weight Start Date: 10/04/24 Status: Ordered Medication Dispense Status: Completed Quantity: 3.0 Unit: EA Total Allowed Fills: 2 Fills Dispensed: 0 Start: 05-05-2023 take 1 dose nasal ro eagle once daily in the morning fluticasone 50 mcg/inh NASAL spray Dose = 2 spray(s), Nostril, each, qAM, # 16 gram(s), 3 Refill(s), Pharmacy: [facility], 180, cm, 04/19/23 12:15:00 EST, Height, kg, 01/31/24 12:15:00 EST, Dosing Weight Start Date: 05/05/23 Status: Ordered Quantity: 16.0 Unit: g Repeat number: 4 Start: 02-08-2022 take 1 dose nasal ro eagle once daily in the morning fluticasone 50 mcg/inh NASAL spray Dose = 2 spray(s), Nostril, each, qAM, # 15.8 mL, 1 Refill(s), Pharmacy: [facility]acy #[id number], 180, cm, 11/26/21 11:27:00 EDT, Height, kg, 11/26/21 11:27:00 EDT, Dosing Weight Start Date: 02/08/22 Status: Ordered Start: 03-18-2019 take 1 dose nasal ro eagle once daily in the morning fluticasone 50 mcg/inh NASAL spray Dose = 2 spray(s), Nostril, each, qAM, # 15.8 mL, 11 Refill(s), Pharmacy: [facility] #[id number] Start Date: 03/18/19 Status: Ordered Start: [...] use, # 180 EA, 1 Refill(s), Pharmacy: [facility], 180, cm, 10/04/24 10:49:00 EDT, [...] use, # 60 EA, 11 Refill(s), Pharmacy: [facility], 180, cm, 03/21/23 10:29:00 EST, Height, kg, 03/21/23 10:19:00 EST, Dosing Weight Start Date: 03/21/23 Status: Ordered Quantity: 60.0 Unit: EA Repeat number: 12 Start: 03-04-2021 take 1 dose by mouth twice daily Wixela Inhub 250 mcg-50 mcg inhalation powder Dose = 1 puff(s), Inhalation, BID, rinse mouth and throat after use, # 60 EA, 11 Refill(s), Pharmacy: [facility] #[id number], 179, cm, 12/14/20 11:13:00 EDT, Height, [...] DAY, # 200 tab(s), 1 Refill(s), Pharmacy: [facility], 180, cm, 10/04/24 10:49:00 [...] DAY, # 200 tab(s), 1 Refill(s), [id number], 180, cm, 10/20/23 10:07:00 EDT, Height, kg, 10/20/23 9:57:00 EDT, Dosing Weight Start Date: 10/20/23 Status: Ordered Quantity: 200.0 Unit: tab(s) Repeat number: 2 Start: 09-19-2023 take 1 tablet by elyse th twice daily furosemide 40 mg oral tablet See Instructions, TAKE 1 TABLET BY MOUTH TWICE A DAY, # 200 tab(s), 1 Refill(s), [facility]: [facility] #[id number], 180, cm, 09/19/23 11:17:00 EDT, Height, kg, 09/19/23 11:17:00 EDT, Dosing Weight Start Date: 09/19/23 Status: Ordered Start: 05-05-2023 take 1 tablet by elyse th twice daily furosemide 40 mg oral tablet See Instructions, TAKE 1 TABLET BY MOUTH TWICE A DAY, # 180 tab(s), 1 Refill(s), Pharmacy: [facility], 180, cm, 04/19/23 12:15:00 EST, Height, kg, 04/19/23 12:15:00 EST, Dosing Weight Start Date: 05/05/23 Status: Ordered Start: 01-27-2023 take 1 tablet by elyse th twice daily furosemide 40 mg oral tablet See Instructions, TAKE 1 TABLET BY MOUTH TWICE A DAY, # 180 tab(s), 1 Refill(s), [facility]: [facility] #[id number], 185, cm, 01/16/23 12:34:00 EDT, Height, kg, 01/16/23 12:34:00 EDT, Dosing Weight Start Date: 01/27/23 Status: Ordered Start: 06-28-2022 take 1 tablet by elyse twice daily furosemide 40 mg oral tablet See Instructions, TAKE 1 TABLET BY MOUTH TWICE A DAY, # 180 tab(s), 1 Refill(s), [facility]: [facility] #[id number], 180, cm, 06/27/22 12:10:00 EDT, Height, kg, [...] BID, # 200 tab(s), 1 Refill(s), Pharmacy: [facility], 180, cm, 10/04/24 10:49:00 EDT, Height, kg, 10/04/24 10:49:00 EDT, Dosing Weight Start Date: 10/04/24 Status: Ordered Medication Dispense Status: Completed Quantity: 200.0 Unit: tab(s) Total Allowed Fills: 2 Fills Dispensed: 0 Start: 06-09-2024 hydrALAZINE 50 mg oral tablet Dose : 50 mg = 1 tab(s), Oral, BID, # 200 tab(s), 1 Refill(s), [facility]: [facility] #[id number], 180, cm, 06/03/24 10:49:00 EDT, Height, kg, 06/03/24 10:49:00 EDT, Dosing Weight Start Date: 06/09/24 Status: Ordered Quantity: 200.0 Unit: tab(s) Repeat number: 2 Start: 09-19-2023 hydrALAZINE 50 mg oral tablet Dose : 50 mg = 1 tab(s), Oral, BID, # 200 tab(s), 1 Refill(s), Pharmacy: [facility] #[id number], 180, cm, 09/19/23 11:17:00 EDT, Height, kg, 09/19/23 11:17:00 EDT, Dosing Weight Start Date: 09/19/23 Status: Ordered Start: 05-05-2023 hydrALAZINE 50 mg oral tablet Dose : 50 mg = 1 tab(s), Oral, BID, # 180 tab(s), 1 Refill(s), Pharmacy: [facility], 180, cm, 04/19/23 12:15:00 EST, Height, kg, 04/19/23 12:15:00 EST, Dosing Weight Start Date: 05/05/23 Status: Ordered Start: 06-21-2021 hydrALAZINE 50 mg oral tablet Dose : 50 mg = 1 tab(s), Oral, BID, # 180 tab(s), 0 Refill(s), [facility]: [facility] #[id number], 180, cm, 05/24/22 10:57:00 EST, Height, kg, [...] DAY, # 7 tab(s), 0 Refill(s), Pharmacy: [facility] #[id number], 181.5, cm, 05/18/20 13:10:00 EST, Height, [...] 30 gram(s), 2 Refill(s), [facility]: [facility] #[id number], Cream, 180, cm, 10/09/23 11:40:00 EDT, Height, [...] qDay, # 100 tab(s), 1 Refill(s), Pharmacy: [facility], 180, cm, 10/04/24 10:49:00 EDT, Height, kg, 10/04/24 10:49:00 EDT, Dosing Weight Start Date: 10/04/24 Status: Ordered Medication Dispense Status: Completed Quantity: 100.0 Unit: tab(s) Total Allowed Fills: 2 Fills Dispensed: 0 Start: 09-19-2023 lisinopril 40 mg oral tablet Dose : 40 mg = 1 tab(s), Oral, qDay, # 100 tab(s), 1 Refill(s), [facility]: [facility] #[id number], 180, cm, 09/19/23 11:17:00 EDT, Height, kg, 09/19/23 11:17:00 EDT, Dosing Weight Start Date: 09/19/23 Status: Ordered Start: 05-05-2023 lisinopril 40 mg oral tablet Dose : 40 mg = 1 tab(s), Oral, qDay, # 90 tab(s), 1 Refill(s), Pharmacy: [facility], 180, cm, 04/19/23 12:15:00 EST, Height, kg, 04/19/23 12:15:00 EST, Dosing Weight Start Date: 05/05/23 Status: Ordered Start: 01-11-2023 lisinopril 40 mg oral tablet Dose : 40 mg = 1 tab(s), Oral, qDay, # 90 tab(s), 1 Refill(s), Pharmacy: [facility] #[id number], 185, cm, 01/09/23 11:29:00 EDT, Height, kg, 01/09/23 11:29:00 EDT, Dosing Weight Start Date: 01/11/23 Status: Ordered Start: 07-11-2022 lisinopril 40 mg oral tablet Dose : 40 mg = 1 tab(s), Oral, qDay, # 90 tab(s), 1 Refill(s), Pharmacy: [facility] #[id number], 180, cm, 06/27/22 12:10:00 EDT, Height, kg, [...] qDay, # 30 tab(s), 1 Refill(s), Pharmacy: [facility] #[id number], 180, cm, 10/04/24 10:49:00 EDT, Height, [...] labeling, # 300 lozenge(s), 0 Refill(s), Pharmacy: [facility] #[id number], [facility] Tobacco use, 180.3, cm, 07/26/24 10:56:00 EDT, [...] qDay, # 30 patch(es), 0 Refill(s), Pharmacy: [facility] #[id number], [facility] Tobacco use, 180.3, cm, 07/26/24 10:56:00 EDT, [...] food, # 100 tab(s), 1 Refill(s), Pharmacy: [facility], 180, cm, 10/04/24 10:49:00 EDT, [...] 90 tab(s), 0 Refill(s), Pharmacy: [facility] #[id number], 70.9, cm, 03/22/24 11:51:00 EST, Height, kg, 03/22/24 11:51:00 EST, Dosing Weight Start Date: 03/30/24 Status: Ordered Quantity: 90.0 Unit: tab(s) Repeat number: 1 Start: 09-19-2023 potassium chlo ride 20 mEq oral tablet, extended release Dose : 20 mEq = 1 tab(s), Oral, qDay, Take with food, # 90 tab(s), 1 Refill(s), Pharmacy: [facility] #[id number], 180, cm, 09/19/23 11:17:00 EDT, Height, kg, 09/19/23 11:17:00 EDT, Dosing Weight Start Date: 09/19/23 Status: Ordered Start: 05-05-2023 potassium chlo ride 20 mEq oral tablet, extended release Dose : 20 mEq = 1 tab(s), Oral, qDay, Take with food, # 90 tab(s), 0 Refill(s), Pharmacy: [facility] #[id number], 180, cm, 04/19/23 12:15:00 EST, Height, kg, [...] food, # 90 tab(s), 4 Refill(s), Pharmacy: [facility]acy #[id number], 179, cm, 02/19/20 13:43:00 EST, Height, [...] dysfunction, # 60 tab(s), 5 Refill(s), Pharmacy: [facility]/pharmacy #[id number], 180, cm, 10/04/24 10:49:00 EDT, Height, [...] 60 tab(s), 2 Refill(s), Pharmacy: [facility] #[id number], Erectile dysfunction, 180, cm, 10/20/23 10:07:00 EDT, [...] (IMDUR), # 60 tab(s), 2 Refill(s), Pharmacy: [facility] #[id number], Erectile dysfunction, 180, cm, 09/19/23 11:17:00 EDT, Height, kg, 09/19/23 11:17:00 EDT, Dosing Weight Start Date: 09/19/23 Status: Ordered Start: 03-07-2023 sildenafil 20 mg oral tablet Dose : 60 mg = 3 tab(s), Oral, Daily, PRN erectile dysfunction, DO NOT TAKE SAME DAY IF USING ISOSORBID MONONITRATE (IMDUR), # 60 tab(s), 2 Refill(s), Pharmacy: [facility] #[id number], Erectile dysfunction, 180, cm, 02/28/23 10:52:00 EST, Height, kg, 02/28/23 10:52:00 EST, Dosing Weight Start Date: 03/07/23 Status: Ordered Start: 11-08-2022 sildenafil 20 mg oral tablet Dose : 60 mg = 3 tab(s), Oral, Daily, PRN erectile dysfunction, DO NOT TAKE SAME DAY IF USING ISOSORBID MONONITRATE (IMDUR), # 60 tab(s), 2 Refill(s), Pharmacy: [facility] #[id number], Erectile dysfunction, 185, cm, 10/24/22 11:41:00 EDT, Height, kg, 10/24/22 11:41:00 EDT, Dosing Weight Start Date: 11/08/22 Status: Ordered Start: 11-26-2021 sildenafil 20 mg oral tablet Dose : 60 mg = 3 tab(s), Oral, Daily, PRN erectile dysfunction, DO NOT TAKE SAME DAY IF USING ISOSORBID MONONITRATE (IMDUR), # 60 tab(s), 2 Refill(s), Pharmacy: [facility] #[id number], Erectile dysfunction, 180, cm, 02/28/22 10:42:00 EST, [...] Insomnia, # 100 tab(s), 1 Refill(s), Pharmacy: [facility], 180, cm, 10/04/24 10:49:00 EDT, Height, kg, 10/04/24 10:49:00 EDT, Dosing Weight Start Date: 10/04/24 Status: Ordered Medication Dispense Status: Completed Quantity: 100.0 Unit: tab(s) Total Allowed Fills: 2 Fills Dispensed: 0 Start: 07-26-2024 traZODone 50 m g oral tablet Dose : 50 mg = 1 tab(s), Oral, qHS, PRN Sleep / Insomnia, # 100 tab(s), 1 Refill(s), [email or web address][id number], 180.3, cm, 07/26/24 10:56:00 EDT, Height, kg, 07/26/24 10:56:00 EDT, Dosing Weight Start Date: 07/26/24 Status: Ordered Quantity: 100.0 Unit: tab(s) Repeat number: 2 Start: 09-19-2023 traZODone 50 m g oral tablet Dose : 50 mg = 1 tab(s), Oral, qHS, PRN Sleep / Insomnia, # 90 tab(s), 1 Refill(s), [facility][id number], 180, cm, 09/19/23 11:17:00 EDT, Height, kg, 09/19/23 11:17:00 EDT, Dosing Weight Start Date: 09/19/23 Status: Ordered Start: 05-05-2023 traZODone 50 m g oral tablet Dose : 50 mg = 1 tab(s), Oral, qHS, PRN Sleep / Insomnia, # 90 tab(s), 1 Refill(s), Pharmacy: [facility], 180, cm, 04/19/23 12:15:00 EST, Height, kg, 04/19/23 12:15:00 EST, Dosing Weight Start Date: 05/05/23 Status: Ordered Start: 06-28-2022 traZODone 50 m g oral tablet Dose : 50 mg = 1 tab(s), Oral, qHS, PRN Sleep / Insomnia, # 90 tab(s), 1 Refill(s), [facility]: [email or web address] #[id number], 185, cm, 10/03/22 10:23:00 EDT, Height, kg, [...] Daily, # 100 cap(s), 3 Refill(s), Pharmacy: [facility], [facility], 180, cm, [...] Daily, # 100 cap(s), 3 Refill(s), Pharmacy: [facility] #[id number], [facility], 180, cm, 06/03/24 10:49:00 EDT, Height, kg, 06/03/24 10:49:00 EDT, Dosing Weight Start Date: 06/09/24 Status: Ordered Quantity: 100.0 Unit: cap(s) Repeat number: 4 Indications: Encounter for general adult medical examination without abnormal findings; Start: 09-19-2023 Vitamin D3 50 mcg (2000 intl units) oral capsule Dose : 2,000 unit(s) = 1 cap(s), Oral, Daily, # 100 cap(s), 1 Refill(s), Pharmacy: [facility] #[id number], [facility], 180, cm, 09/19/23 11:17:00 EDT, Height, kg, 09/19/23 11:17:00 EDT, Dosing Weight Start Date: 09/19/23 Status: Ordered Start: 05-05-2023 Vitamin D3 50 mcg (2000 intl units) oral capsule Dose : 2,000 unit(s) = 1 cap(s), Oral, Daily, # 100 cap(s), 1 Refill(s), Pharmacy: [facility], [facility], 180, cm, 04/19/23 12:15:00 EST, Height, kg, 04/19/23 12:15:00 EST, Dosing Weight Start Date: 05/05/23 Status: Ordered Start: 10-04-2022 Vitamin D3 50 mcg (2000 intl units) oral capsule Dose : 2,000 unit(s) = 1 cap(s), Oral, Daily, # 100 cap(s), 3 Refill(s), Pharmacy: [facility] #[id number], [facility], 185, cm, 10/03/22 10:23:00 EDT, Height, kg, 10/03/22 10:23:00 EDT, Dosing Weight Start Date: 10/04/22 Status: Ordered Start: 02-28-2022 Vitamin D3 50 mcg (2000 intl units) oral capsule Dose : 2,000 unit(s) = 1 cap(s), Oral, Daily, # 100 cap(s), 3 Refill(s), Pharmacy: [facility], [facility], 180, cm, [...] 180 tab(s), 3 Refill(s), [facility]acy: [facility] #[id number], 180, cm, 07/10/24 9:48:00 EDT, Height, kg, 07/10/24 9:48:00 EDT, Dosing Weight Start Date: 07/22/24 Status: Ordered Medication Dispense Status: Completed Quantity: 180.0 Unit: tab(s) Total Allowed Fills: 4 Fills Dispensed: 0 Start: 10-18-2023 warfarin 4 mg oral tablet See Instructions, 6mg Sun, Mon, Mon, , Sat 8mg Mon, Mon, # 180 tab(s), 0 Refill(s), [facility]acy: [facility] #[id number], 180, cm, 10/09/23 11:40:00 EDT, Height, kg, [...] 150 tab(s), 3 Refill(s), Pharmacy: [facility] #[id number], 185, cm, 09/14/22 12:50:00 EDT, Height Start [...] 6.25 mg oral tablet (20 sources) alpha-Adrenergic Azc, beta-Adrenergic Zac Start: 03-21-19 carvedilol 6.25 mg oral tablet 60 EA, 0 Refill(s), take 1 tablet by mouth twice a day, 0 Refill(s) Start Date: 03/21/23 Status: Ordered Repeat number: 1 Start: 09-04-2022 carvedilol 6.2 5 mg oral tablet Dose : 6.25 mg = 1 tab(s), Oral, BID, # 180 tab(s), 1 Refill(s), Pharmacy: [facility], 189.1, cm, 08/25/22 10:51:00 EDT, Height, kg, 08/25/22 10:51:00 EDT, Dosing Weight Start Date: 09/04/22 Status: Ordered Start: 02-28-2022 carvedilol 6.2 5 mg oral tablet Dose : 6.25 mg = 1 tab(s), Oral, BID, # 180 tab(s), 1 Refill(s), Pharmacy: [facility], 180, cm, 02/28/22 10:42:00 EST, Height, kg, 02/28/22 10:42:00 EST, Dosing Weight Start Date: 02/28/22 Status: Ordered Start: 03-05-2019 End: 02-19-2020 carvedilol 6.25 mg oral tabl et Dose : 6.25 mg = 1 tab(s), Oral, BID, # 180 tab(s), 1 Refill(s), Pharmacy: [facility], 180, cm, 02/28/22 10:42:00 EST, [...] once daily prednisone 10mg tab (TAPER) Taper 99-53-65-10-5 mg, Oral, Daily, Take 4 tabs daily x 5days, then 3 tabs daily x 3days, then 2 tabs daily x 3days,then 1 tab daily x 3days,then 1/2 tab daily x 4 days, # 40 tab(s), 0 Refill(s), [email or web address] #[id number], 180, cm, 07/10/24 9:48:00 EDT, Height, kg, [...] once daily prednisone 10mg tab (TAPER) Taper 39-96-27-10-5 mg, Oral, Daily, Take 4 tabs daily x 5days, then 3 tabs daily x 3days, then 2 tabs daily x 3days,then 1 tab daily x 3days,then 1/2 tab daily x 4 days, # 40 tab(s), 0 Refill(s), [facility]: [email or web address] #[id number], 180, cm, 04/19/23 12:15:00 EST, Height, kg, [...] once daily prednisone 10mg tab (TAPER) Taper 98-15-64-10-5 mg, Oral, Daily, Take 4 tabs daily x 5days, then 3 tabs daily x 3days, then 2 tabs daily x 3days,then 1 tab daily x 3days,then 1/2 tab daily x 4 days, # 40 tab(s), 0 Refill(s), [facility]: [facility] #[id number], Gout, 180, cm, 08/01/22 9:29:00 EDT, Height, [...] once daily prednisone 10mg tab (TAPER) Taper 08-12-74-10-5 mg, Oral, Daily, Take 4 tabs daily [...] 180 mL, 2 Refill(s), Pharmacy: [facility] #[id number], 180, cm, 12/11/23 11:56:00 EDT, Height, kg, [...] 180 mL, 2 Refill(s), [facility]: [facility] #[id number], 180, cm, 02/28/23 10:52:00 EST, Height, kg, 02/28/23 10:52:00 EST, Dosing Weight Start Date: 03/07/23 Stop Date: 06/05/23 Status: Ordered Start: 10-28-2022 End: 01-26-2023 take 1 dose by mouth four times daily promethazine 6.25 mg/5 mL oral syrup Dose : 6.25 mg = 5 mL, Oral, QID, NO RED DYE! Grape flavor ok, # 180 mL, 2 Refill(s), [facility]: [email or web address] #[id number], 185, cm, 10/24/22 11:41:00 EDT, Height, kg, 10/24/22 11:41:00 EDT, Dosing Weight Start Date: 10/28/22 Stop Date: 01/26/23 Status: Ordered Start: 07-11-2022 End: 09-09-2022 take 1 dose by mouth four times daily promethazine 6.25 mg/5 mL oral syrup Dose : 6.25 mg = 5 mL, Oral, QID, NO RED DYE! Grape flavor ok, # 180 mL, 1 Refill(s), [facility]acy: [facility] #[id number], 180, cm, 06/27/22 12:10:00 EDT, Height, kg, 06/27/22 12:10:00 EDT, Dosing Weight Start Date: 07/11/22 Stop Date: 09/09/22 Status: Ordered Start: 12-03-2021 End: 02-01-2022 take 1 dose by mouth four times daily promethazine 6.25 mg/5 mL oral syrup Dose : 6.25 mg = 5 mL, Oral, QID, # 180 mL, 1 Refill(s), Pharmacy: [facility] #[id number], 180, cm, 11/26/21 11:27:00 EDT, Height Start Date: 12/03/21 Stop Date: 02/01/22 Status: Ordered sotalol hydrochloride 80 mg oral tablet (20 sources) Antiarrhythmic Start: 09-10-2024 End: 11-03-2024 sotalol 80 mg oral tablet Dose : 80 mg = 1 tab(s), Oral, BID, # 200 tab(s), 0 Refill(s), Pharmacy: [facility], 180, cm, 10/04/24 10:49:00 EDT, Height, kg, 10/04/24 10:49:00 EDT, Dosing Weight Start Date: 10/04/24 Stop Date: 11/03/24 Status: Ordered Medication Dispense Status: Completed Quantity: 200.0 Unit: tab(s) Total Allowed Fills: 1 Fills Dispensed: 0 Start: 09-19-2023 sotalol 80 mg oral tablet Dose : 80 mg = 1 tab(s), Oral, BID, # 180 tab(s), 1 Refill(s), [facility]: [facility] #[id number], 180, cm, 09/19/23 11:17:00 EDT, Height, kg, 09/19/23 11:17:00 EDT, Dosing Weight Start Date: 09/19/23 Status: Ordered Start: 05-05-2023 sotalol 80 mg oral tablet Dose : 80 mg = 1 tab(s), Oral, BID, # 180 tab(s), 1 Refill(s), Pharmacy: [facility], 180, cm, 04/19/23 12:15:00 EST, Height, kg, 04/19/23 12:15:00 EST, Dosing Weight Start Date: 05/05/23 Status: Ordered Start: 03-16-2023 sotalol 80 mg oral tablet Dose : 80 mg = 1 tab(s), Oral, BID, # 60 tab(s), 0 Refill(s), Pharmacy: [facility], 180, cm, 03/15/23 12:13:00 EST, Height, kg, 03/15/23 12:13:00 EST, Dosing Weight Start Date: 03/16/23 Status: Ordered Start: 09-04-2022 sotalol 80 mg oral tablet Dose : 80 mg = 1 tab(s), Oral, BID, # 180 tab(s), 1 Refill(s), Pharmacy: [facility], 189.1, cm, 08/25/22 10:51:00 EDT, Height, kg, 08/25/22 10:51:00 EDT, Dosing Weight Start Date: 09/04/22 Status: Ordered Start: 09-27-2018 sotalol 80 mg oral tablet Dose : 80 mg = 1 tab(s), Oral, BID, # 180 tab(s), 1 Refill(s), Pharmacy: [facility], 180, cm, 02/28/22 10:42:00 EST, [...] sources) Long-term current use of anticoagulant; Translations: [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 Normal [facility] APOBon 09-26-2024 Apolipoprotein B [Mass/Vol] 68 mg/dL Normal <90 [facility] Comment on above: Result Comment: Katherine liz < 90 Borderline High 90 - 99 High 100 - 130 Very High >130 ASCVD RISK THERAPEUTIC TARGET CATEGORY APO B (mg/dL) Very High Risk <80 (if extreme risk <70) High Risk <90 Moderate Risk <90 Performed At: [facility] [id number] Noah Fernández MD Ph:[phone] Performed By: #### P BNP, GFR, CMP, VIDH, URIC, [id number], LIPID ####[place] [address] [place], [place] [address] .GFRon 09-23-2024 Estimated Glomerular Filtration Rate 77 ml/min/1.73sqm Normal [facility] Comment on above: Result Comment: Stages [...] #### P BNP, GFR, CMP, VIDH, URIC, [id number], LIPID ####[address] [place], [place] [address] CMPon 09-23-2024 Albumin Level 3.3 G/dL Low 3.4-4.8 [facility] Comment on above: Performed By: #### P BNP, GFR, CMP, VIDH, URIC, [id number], LIPID ####[address] [place], [place] [address] Albumin/Globulin [Mass ratio] 0.8 {ratio} Low 1.1-2.5 [facility] Comment on above: Performed By: #### P BNP, GFR, CMP, VIDH, URIC, [id number], LIPID ####[address] [place], [place] [address] ALP [Catalytic activity/Vol] 85 U/L Normal 40-135 [facility] Comment on above: Performed By: #### P BNP, GFR, CMP, VIDH, URIC, [id number], LIPID ####[address] [place], [place] [address] ALT [Catalytic activity/Vol] 26 U/L Normal 16-63 [facility] Comment on above: Performed By: #### P BNP, GFR, CMP, VIDH, URIC, [id number], LIPID ####[facility] [place], [place] [address] AST [Catalytic activity/Vol] 20 U/L Normal 10-40 [facility] Comment on above: Performed By: #### P BNP, GFR, CMP, VIDH, URIC, [id number], LIPID ####[place] [address] [place], [place] [address] Bili Total 0.8 mg/dL Normal 0.2-1.0 [facility] Comment on above: Result Comment: Use of this assay is not recommended for patients undergoing treatment with eltrombopag due to the potential for falsely elevated results. Performed By: #### P BNP, GFR, CMP, VIDH, URIC, [id number], LIPID ####[place] [address] [place], [place] [address] BUN/Creatinine Ratio 15 ratio Normal 7-27 [facility] Comment on above: Performed By: #### P BNP, GFR, CMP, VIDH, URIC, [id number], LIPID ####[place] [address] [place], [place] [address] Calcium [Mass/Vol] 9.0 mg/dL Normal 8.4-10.2 [facility] Comment on above: Performed By: #### P BNP, GFR, CMP, VIDH, URIC, [id number], LIPID ####[place] [address] [place], [place] [address] Chloride [Moles/Vol] 106 mmol/L Normal 98-107 [facility] Comment on above: Performed By: #### P BNP, GFR, CMP, VIDH, URIC, 706231, LIPID ####[address] [address] CO2 [Moles/Vol] 25 mmol/L Normal 23-31 [facility] Comment on above: Performed By: #### P BNP, GFR, CMP, VIDH, URIC, [id number], LIPID ####[place] [address] [place], [place] [address] Creatinine [Mass/Vol] 1.07 mg/dL Normal 0.67-1.17 [facility] Comment on above: Performed By: #### P BNP, GFR, CMP, VIDH, URIC, [id number], LIPID ####[address] [place], [place] [address] Electrolyte Balance 12.0 mEq/L Normal 4.0-15.0 [facility] Comment on above: Performed By: #### P BNP, GFR, CMP, VIDH, URIC, [id number], LIPID ####[address] [place], [place] [address] Globulin 4.1 G/dL Normal 2.7-4.4 [facility] Comment on above: Performed By: #### P BNP, GFR, CMP, VIDH, URIC, 275637, LIPID ####[address] [place], [place] [address] Glucose [Mass/Vol] 133 mg/dL High 80-115 [facility] Comment on above: Performed By: #### P BNP, GFR, CMP, VIDH, URIC, [id number], LIPID ####[address] [address] Potassium [Moles/Vol] 3.6 mmol/L Normal 3.5-5.1 [facility] Comment on above: Performed By: #### P BNP, GFR, CMP, VIDH, URIC, 604885, LIPID ####[address] [place], [place] [address] Sodium [Moles/Vol] 143 mmol/L Normal 136-145 [facility] Comment on above: Performed By: #### P BNP, GFR, CMP, VIDH, URIC, [id number], LIPID ####[address] [address] Total Protein 7.4 G/dL Normal 6.4-8.2 [facility] Comment on above: Performed By: #### P BNP, GFR, CMP, VIDH, URIC, [id number], LIPID ####[address] [place], [place] [address] Urea nitrogen [Mass/Vol] 16 mg/dL Normal 7-18 [facility] Comment on above: Performed By: #### P BNP, GFR, CMP, VIDH, URIC, [id number], LIPID ####[address] [place], [place] [address] LABORATORYOrdered By: SYSTEM SYSTEM on 09-23-2024 25-hydroxyvitamin [...] 09-23-2024 Cholesterol [Mass/Vol] 137 mg/dL Normal 0-200 [facility] Comment on above: Result Comment: Chol esterol Reference Interval: Less than 200 Desirable 200-239 Borderline high risk 240 and above High risk Performed By: #### P BNP, GFR, CMP, VIDH, URIC, 967706, LIPID ####[place] [address] [place], [place] [address] Cholesterol in HDL [Mass/Vol] 54 mg/dL Normal 40-60 [facility] Comment on above: Performed By: #### P BNP, GFR, CMP, VIDH, URIC, 487297, LIPID ####[place] [address] [place], [place] [address] Cholesterol in LDL [Mass/Vol] 73 mg/dL Normal 0-130 [facility] Comment on above: Performed By: #### P BNP, GFR, CMP, VIDH, URIC, [id number], LIPID ####[address] [address] Triglyceride [Mass/Vol] 50 mg/dL Normal 0-150 [facility] Comment on above: Result Comment: Trig lyceride Reference Interval: Less than 150 Normal 150-199 Borderline high risk 200-499 High risk 500 or higher Very high risk Performed By: #### P BNP, GFR, CMP, VIDH, URIC, [id number], LIPID ####[address] [address] PBNPon 09-23-2024 Natriuretic peptide B (Bld) [Mass/Vol] 244 pg/mL High 0-125 [facility] Comment on above: Result Comment: NT-p roBNP results of less than 300 pg/mL effectively rules out acute congestive heart failure with 99% negative predictive value. Performed By: #### P BNP, GFR, CMP, VIDH, URIC, [id number], LIPID ####[place] [address] [place], [place] [address] URICon 09-23-2024 Uric Acid Lvl 6.2 mg/dL Normal 3.5-7.2 [facility] Comment on above: Performed By: #### P BNP, GFR, CMP, VIDH, URIC, 401808, LIPID ####[address] [place], [place] [address] VIDHon 09-23-2024 Vit. D 25-Hydroxy 50.6 ng/mL Normal [facility] Comment on above: Result Comment: Inte rpretive Values Based on Total 25(OH) Vitamin D: Deficient <20 ng/mL Insufficient 20 - <30 ng/mL Sufficient 30-100 ng/mL Performed By: #### P BNP, GFR, CMP, VIDH, URIC, 125755, LIPID ####[facility] [place], [place] [address] PMDSon 08-15-2024 ToxAssure 13 Summary FINAL Normal [facility] Comment on above: Result Comment: [...] consultation, please call . ==== Performed At: [facility] [address] [place] [id number] Stevie Dupree [facility] Ph:[phone] Performed By: #### 7 [address] #### [place] [address] XR FLUORO GUIDANCE FOR THERA PY INJECTIONon 06-21-2024 XR FLUORO GUIDANCE FOR THERAPY INJECTION ORIGINAL Images acquired, not reported on this accession number. Normal [facility] APOBon 04-20-2024 Apolipoprotein B [Mass/Vol] 130 mg/dL High <90 [facility] Comment on above: Result Comment: Katherine rable < 90 Borderline High 90 - 99 High 100 - 130 Very High >130 ASCVD RISK THERAPEUTIC TARGET CATEGORY APO B (mg/dL) Very High Risk <80 (if extreme risk <70) High Risk <90 Moderate Risk <90 Performed At: [facility] [id number] Noah Fernández MD Ph:[phone] Performed By: #### 1 [address] ####[address] [place], [place] [address] APOBon 04-18-2024 Apolipoprotein B [Mass/Vol] Not performed Normal [facility] Comment on above: Result Comment: Test [...] Risk <90 Moderate Risk <90 [facility]formed [facility]: [facility] [address] [place] [id number] Noah Fernández MD Ph:[phone] Performed By: #### T SHR, LIPID, PSA, [id number], URIC, VIDH, GFR, [id number], CMP ####[address] [place], [place] [address] .Auto Diffon 04-15-2024 Basophil, Absolute 0.1 10 3/mcL Normal 0.0-0.2 [facility] Comment on above: Performed By: #### C BC, A1C, ANEU, ADIFF #### [address] [place], [place] [address] Basophils/100 WBC (Bld) 1.2 % Normal 0.0-2.5 [facility] Comment on above: Performed By: #### C BC, A1C, ANEU, ADIFF #### [address] [address] Eosinophil, Absolute 0.3 10 3/mcL Normal 0.0-0.7 [facility] Comment on above: Performed By: #### C BC, A1C, ANEU, ADIFF #### [address] [address] Eosinophils/100 WBC (Bld) 4.8 % Normal 0.0-7.0 [facility] Comment on above: Performed By: #### C BC, A1C, ANEU, ADIFF #### [address] [address] Lymphocyte, Absolute 1.9 10 3/mcL Normal 0.9-4.3 [facility] Comment on above: Performed By: #### C BC, A1C, ANEU, ADIFF #### [address] [address] Lymphocytes/100 WBC (Bld) 28.3 % Normal 20.0-40.0 [facility] Comment on above: Performed By: #### C BC, A1C, ANEU, ADIFF #### [address] [address] Monocyte, Absolute 0.8 10 3/mcL Normal 0.1-1.4 [facility] Comment on above: Performed By: #### C BC, A1C, ANEU, ADIFF #### [address] [address] Monocytes/100 WBC (Bld) 12.7 % Normal 2.0-13.0 [facility] Comment on above: Performed By: #### C BC, A1C, ANEU, ADIFF #### [address] [address] Neutrophils/100 WBC (Bld) 53.0 % Normal 50.0-75.0 [facility] Comment on above: Performed By: #### C BC, A1C, ANEU, ADIFF #### [address] [address] .NEUABSon 04-15-2024 Neutrophil, Absolute 3.5 10 3/mcL Normal 2.3-8.1 [facility] Comment on above: Performed By: #### C BC, A1C, ANEU, ADIFF #### [address] [address] A1Con 04-15-2024 Glucose [Mass/Vol] 114 mg/dL Normal [facility] Comment on above: Result Comment: Linda mated Average Glucose calculated by equation ((28.7xA1C)-46.7) Estimated average glucose (eAG) is a calculated value from Hemoglobin A1C and is cash application representative of the average blood glucose level in the last 2-3 month period. Normal range: less than 114 mg/dL Performed By: #### C BC, A1C, ANEU, ADIFF #### [place] [address] HbA1c (Bld) [Mass fraction] 5.6 % Normal 4.3-6.4 [facility] Comment on above: Performed By: #### C BC, A1C, ANEU, ADIFF #### [place] [id number] CBCon 04-15-2024 Erythrocyte distribution width (RBC) [Ratio] 16.9 % High 11.5-15.5 [facility] Comment on above: Performed By: #### C BC, A1C, ANEU, ADIFF #### [place] [address] Hematocrit (Bld) [Volume fraction] 49.4 % Normal 40.0-52.0 [facility] Comment on above: Performed By: #### C BC, A1C, ANEU, ADIFF #### [place] [address] Hgb 15.7 G/dL Normal 13.0-17.5 [facility] Comment on above: Performed By: #### C BC, A1C, ANEU, ADIFF #### [place] [address] MCH (RBC) [Entitic mass] 27.0 pg Normal 27.0-33.0 [facility] Comment on above: Performed By: #### C BC, A1C, ANEU, ADIFF #### [place] [address] MCHC 31.7 G/dL Low 32.0-36.0 [facility] Comment on above: Performed By: #### C BC, A1C, ANEU, ADIFF #### [place] [id number] MCV (RBC) [Entitic vol] 85.3 fL Normal 81.0-100.0 [facility] Comment on above: Performed By: #### C BC, A1C, ANEU, ADIFF #### [place] [address] Platelet 168 10 3/mcL Normal 150-450 [facility] Comment on above: Performed By: #### C BC, A1C, ANEU, ADIFF #### [place] [address] Platelet mean volume (Bld) [Entitic vol] 9.5 fL Normal 6.4-10.5 [facility] Comment on above: Performed By: #### C BC, A1C, ANEU, ADIFF #### [place] [address] RBC 5.79 10 6/mcL Normal 4.50-6.00 [facility] Comment on above: Performed By: #### C BC, A1C, ANEU, ADIFF #### [place] [address] WBC 6.6 10 3/mcL Normal 4.5-10.8 [facility] Comment on above: Performed By: #### C BC, A1C, ANEU, ADIFF #### [place] [address] LABORATORYOrdered By: SYSTEM SYSTEM on 04-15-2024 Basophils [...] calculated value from Hemoglobin A1C and is cash application representative of the average blood glucose level [...] Lipoprotein a [Moles/Vol] 296.1 nmol/L High <75.0 [facility] Comment on above: Result Comment: Resu lts confirmed on dilution. Note: Values greater than or equal to 75.0 nmol/L may indicate an independent risk factor for CHD, but must be evaluated with caution when applied to non- populations due to the influence of genetic factors on Lp(a) across ethnicities. Performed At: [facility] [id number] Carmel Manzano PhD Ph:[phone] Performed By: #### T SHR, LIPID, PSA, [id number], URIC, VIDH, GFR, [id number], CMP ####[facility] [place] [address] XR HIP 2-3 VIEWS RIGHTon XR HIP [...] 04/12/2024 9:42:11 AM Ordering Provider: SAMANTHA Rodríguez [facility] .GFRon 04-11-2024 GFR 66 ml/min/1.73sqm Normal [facility] Comment on above: Result Comment: GFR [...] Performed By: #### T SHR, LIPID, PSA, [id number], URIC, VIDH, GFR, 375115, CMP ####[place] [address] [place], [place] [address] GFR Non- 54 ml/min/1.73sqm Normal [facility] Comment on above: Result Comment: GFR [...] Performed By: #### T SHR, LIPID, PSA, [id number], URIC, VIDH, GFR, [id number], CMP ####[id number] [place], [place] [address] CMPon 04-11-2024 Albumin Level 3.8 G/dL Normal 3.4-4.8 [facility] Comment on above: Performed By: #### T SHR, LIPID, PSA, [id number], URIC, VIDH, GFR, [id number], CMP #### [place] [address] Albumin/Globulin [Mass ratio] 1.0 {ratio} Low 1.1-2.5 [facility] Comment on above: Performed By: #### T SHR, LIPID, PSA, [id number], URIC, VIDH, GFR, [id number], CMP #### [place] [address] ALP [Catalytic activity/Vol] 96 U/L Normal 40-135 [facility] Comment on above: Performed By: #### T SHR, LIPID, PSA, [id number], URIC, VIDH, GFR, [id number], CMP #### [place] [address] ALT [Catalytic activity/Vol] 17 U/L Normal 16-63 [facility] Comment on above: Performed By: #### T SHR, LIPID, PSA, [id number], URIC, VIDH, GFR, [id number], CMP #### [place] [address] AST [Catalytic activity/Vol] 17 U/L Normal 10-40 [facility] Comment on above: Performed By: #### T SHR, LIPID, PSA, [id number], URIC, VIDH, GFR, 150461, CMP #### [place] [address] Bili Total 0.5 mg/dL Normal 0.2-1.0 [facility] Comment on above: Result Comment: Use of this assay is not recommended for patients undergoing treatment with eltrombopag due to the potential for falsely elevated results. Performed By: #### T SHR, LIPID, PSA, [id number], URIC, VIDH, GFR, [id number], CMP #### [place] [address] BUN/Creatinine Ratio 15 ratio Normal 7-27 [facility] Comment on above: Performed By: #### T SHR, LIPID, PSA, [id number], URIC, VIDH, GFR, [id number], CMP #### [place] [id number] Calcium [Mass/Vol] 9.3 mg/dL Normal 8.4-10.2 [facility] Comment on above: Performed By: #### T SHR, LIPID, PSA, [id number], URIC, VIDH, GFR, [id number], CMP #### [address] [address] Chloride [Moles/Vol] 100 mmol/L Normal 98-107 [facility] Comment on above: Performed By: #### T SHR, LIPID, PSA, [id number], URIC, VIDH, GFR, 869429, CMP #### [address] [address] CO2 [Moles/Vol] 30 mmol/L Normal 23-31 [facility] Comment on above: Performed By: #### T SHR, LIPID, PSA, [id number], URIC, VIDH, GFR, 417852, CMP #### [place] [address] Creatinine [Mass/Vol] 1.33 mg/dL High 0.70-1.30 [facility] Comment on above: Result Comment: Test ing performed on Siemens Dimension EXL analyzer using a modified kinetic Feliz technique. Performed By: #### T SHR, LIPID, PSA, [id number], URIC, VIDH, GFR, 905694, CMP #### [address] [address] Electrolyte Balance 7.0 mEq/L Normal 4.0-15.0 [facility] Comment on above: Performed By: #### T SHR, LIPID, PSA, [id number], URIC, VIDH, GFR, 612420, CMP #### [address] [address] Globulin 4.0 G/dL Normal [facility] Comment on above: Performed By: #### T SHR, LIPID, PSA, [id number], URIC, VIDH, GFR, 471014, CMP #### [place] [address] Glucose [Mass/Vol] 74 mg/dL Low 80-115 [facility] Comment on above: Performed By: #### T SHR, LIPID, PSA, [id number], URIC, VIDH, GFR, 955251, CMP #### [address] [address] Potassium [Moles/Vol] 4.1 mmol/L Normal 3.5-5.1 [facility] Comment on above: Performed By: #### T SHR, LIPID, PSA, [id number], URIC, VIDH, GFR, 393519, CMP #### [address] [address] Sodium [Moles/Vol] 137 mmol/L Normal 136-145 [facility] Comment on above: Performed By: #### T SHR, LIPID, PSA, [id number], URIC, VIDH, GFR, 332636, CMP #### [address] [address] Total Protein 7.8 G/dL Normal 6.4-8.2 [facility] Comment on above: Performed By: #### T SHR, LIPID, PSA, [id number], URIC, VIDH, GFR, 357869, CMP #### [address] [address] Urea nitrogen [Mass/Vol] 20 mg/dL High 7-18 [facility] Comment on above: Performed By: #### T SHR, LIPID, PSA, [id number], URIC, VIDH, GFR, 688252, CMP #### [address] [address] LABORATORYOrdered By: SYSTEM SYSTEM on 04-11-2024 25-hydroxyvitamin [...] 04-11-2024 Cholesterol [Mass/Vol] 261 mg/dL High 0-200 [facility] Comment on above: Result Comment: Chol esterol Reference Interval: Less than 200 Desirable 200-239 Borderline high risk 240 and above High risk Performed By: #### T SHR, LIPID, PSA, [id number], URIC, VIDH, GFR, 021442, CMP ####[address] [place], [place] [address] Cholesterol in HDL [Mass/Vol] 65 mg/dL High 40-60 [facility] Comment on above: Performed By: #### T SHR, LIPID, PSA, [id number], URIC, VIDH, GFR, 360947, CMP ####[address] [place], [place] [address] Cholesterol in LDL [Mass/Vol] 176 mg/dL High 0-130 [facility] Comment on above: Performed By: #### T SHR, LIPID, PSA, [id number], URIC, VIDH, GFR, 714184, CMP ####[address] [place], [place] [address] Triglyceride [Mass/Vol] 98 mg/dL Normal 0-150 [facility] Comment on above: Result Comment: Trig lyceride Reference Interval: Less than 150 Normal 150-199 Borderline high risk 200-499 High risk 500 or higher Very high risk Performed By: #### T SHR, LIPID, PSA, [id number], URIC, VIDH, GFR, 802927, CMP ####[address] [place], [place] [address] PSAon 04-11-2024 Prostate Specific Antigen 3.31 ng/mL Normal 0.00-4.00 [facility] Comment on above: Performed By: #### T SHR, LIPID, PSA, [id number], URIC, VIDH, GFR, 866219, CMP ####[address] [place], [place] [address] TSHRon 04-11-2024 TSH Qn 1.56 m[IU]/L Normal 0.36-3.74 [facility] Comment on above: Performed By: #### T SHR, LIPID, PSA, [id number], URIC, VIDH, GFR, 112662, CMP ####[address] [place], [place] [address] URICon 04-11-2024 Uric Acid Lvl 8.8 mg/dL High 3.5-7.2 [facility] Comment on above: Performed By: #### T SHR, LIPID, PSA, [id number], URIC, VIDH, GFR, 210318, CMP #### [address] [place], [place] [address] VIDHon 04-11-2024 Vit. D 25-Hydroxy 41.8 ng/mL Normal [facility] Comment on above: Result Comment: Inte rpretive Values Based on Total 25([place]) Vitamin D: Deficient <20 ng/mL Insufficient 20 - <30 ng/mL Sufficient 30-100 ng/mL Performed By: #### T SHR, LIPID, PSA, [id number], URIC, VIDH, GFR, 206712, CMP ####[address] [place], [place] [address] LABORATORYOrdered By: Cinthia Moreland on 04-09-2024 Albumin DL <= 20 mg/L (U) [Mass/Vol] 3218 mcg/dL Invalid Interpretation Code AO ADM SS Albumin/Creatinine DL <= 20 mg/L (U) [Mass ratio] 55 mcg/mg High 0 - 30 mcg/mg AO Chemistry S Creatinine (U) [Mass/Vol] 58.2 mg/dL Invalid Interpretation Code AO ADM SS MALBRon 04-09-2024 U Creatinine 58.2 mg/dL Normal [facility] Comment on above: Performed By: #### M ALBR ####[address] [place], [place] [address] U Microalb 3218 mcg/dL Normal [facility] Comment on above: Performed By: #### M ALBR ####[address] [place], [place] [address] U Ratio Alb/Cre 55 mcg/mg High 0-30 [facility] Comment on above: Performed By: #### M ALBR ####[facility] [place], [place] [address] XR FLUORO GUIDANCE FOR THERA PY INJECTIONon 03-22-2024 XR FLUORO GUIDANCE FOR THERAPY INJECTION ORIGINAL Images acquired, not reported on this accession number. Normal [facility] PMDSon 02-14-2024 ToxAssure 13 Summary FINAL [facility] Comment on above: Result Comment: [...] is an expected metabolite of dextromethorphan, an jkjp-kso-vwlynoe or prescription cough suppressant. Dextrorphan cannot be [...] consultation, please call . ==== Performed At: [facility] [address], [place] [id number] Stevie Dupree [facility] Ph:[phone] Performed By: #### 7 [id number] #### [facility] [address] [place] [address] Echo Complete W/ Contraston 01-01-2024 Echo Complete W/ Contrast [facility] [address] [place] [address] Echo Complete W/ Contrast 01/01/24 1357 MR#: [id number] Acct: [id number] Name: ARELI RUELAS Jr. Rep #: [id number] : 1960 63 From: Main Joyce MD Attending Dr: Dr. Main Joyce MD Status: RUDDY CARR Ordering Dr: Main Joyce MD Date: 01/01/24 Location: [facility] Sex: M AA Admitted: Reason For Study: [...] Date Dictated: 01/01/24 1357 Date Transcribed: 01/01/241736 Ict Educator: Signed Normal [facility] Cardiology Visit Reporton Cardiology Visit Report [facility] [address] [place] [address]. [address] [place] [address] OFFICE VISIT Date of Service: 12/19/23 MR#: [id number] Acct: [id number] Name: ARELI RUELAS Jr. Rep #: [id number] : 1960 Provider: Dr. 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 Normal [facility] .GFRon 11-22-2023 GFR Non- 48 ml/min/1.73sqm Normal [facility] ([place]) Comment on above: Result Comment: GFR [...] By: #### B MP, GFR #### Cynthia [address] [address] GFR 58 ml/min/1.73sqm Normal [facility] ([place]) Comment on above: Result Comment: GFR Population [...] Performed By: #### B MP, GFR #### [address] [address] BMPon 11-22-2023 BUN/Creatinine Ratio 14 ratio Normal 7-27 [facility] ([place]) Comment on above: Performed By: #### B MP, GFR #### [address] [address] Calcium [Mass/Vol] 9.0 mg/dL Normal 8.4-10.2 [facility] ([place]) Comment on above: Performed By: #### B MP, GFR #### [address] [address] Chloride [Moles/Vol] 104 mmol/L Normal 98-107 [facility] ([place]) Comment on above: Performed By: #### B MP, GFR #### [address] [address] CO2 [Moles/Vol] 25 mmol/L Normal 23-31 [facility] ([place]) Comment on above: Performed By: #### B MP, GFR #### [address] [address] Creatinine [Mass/Vol] 1.47 mg/dL High 0.70-1.30 [facility] ([place]) Comment on above: Result Comment: Test ing performed on Siemens Dimension EXL analyzer using a modified kinetic Feliz technique. Performed By: #### B MP, GFR #### [address] [address] Electrolyte Balance 10.0 mEq/L Normal 4.0-15.0 [facility] ([place]) Comment on above: Performed By: #### B MP, GFR #### [address] [address] Glucose [Mass/Vol] 90 mg/dL Normal 80-115 [facility] ([place]) Comment on above: Performed By: #### B MP, GFR #### [address] [address] Potassium [Moles/Vol] 4.1 mmol/L Normal 3.5-5.1 [facility] ([place]) Comment on above: Performed By: #### B MP, GFR #### [facility] [address] [place], [place] [address] Sodium [Moles/Vol] 139 mmol/L Normal 136-145 [facility] ([place]) Comment on above: Performed By: #### B MP, GFR #### Cynthia [place] [address] [place], [place] [address] Urea nitrogen [Mass/Vol] 20 mg/dL High 7-18 [facility] ([place]) Comment on above: Performed By: #### B MP, GFR #### [facility] [address] [place], [place] [address] LABORATORYOrdered By: SYSTEM SYSTEM on 11-22-2023 Calcium [...] glenda 10-26-2023 Wound Ctr History & Physical [facility] [address] [place] [address] H P Exam - Wound Care 10/26/23 1200 MR#: [id number] Acct: [id number] Name: ARELI RUELAS Jr. Rep #: [id number] : 1960 63 From: Benedict Hoyt MD [...] or change in bowel habit. [facility] Medical History (Updated 10/26/23 @ 12:58 by [...] steroid therapy Atherosclerosis of coronary artery of [place] heart without angina pectoris Diastolic congestive heart [...] No problems noted. Surgical History ... Normal [facility] [id number] 10-21-2023 Complement C3A 125.0 mg/dL Normal 90.0-170.0 [facility] ([place]) Comment on above: Result Comment: No te - New Reference Range in effect 19 Performed By: #### C 3C4A #### [address] [address] Complement C4A 41.0 mg/dL High 16.0-38.0 [facility] ([place]) Comment on above: Performed By: #### C 3C4A #### [address] [address] LABORATORYOrdered By: Silvia Cardona on 10-21-2023 Creatinine [...] 10-21-2023 U Creatinine 21.6 mg/dL Low 39.0-259.0 [facility] ([place]) Comment on above: Performed By: #### R PCUR #### Cynthia [address] [address] U Protein <6 Normal 0-11 [facility] ([place]) Comment on above: Performed By: #### R PCUR #### [address] [address] U Ratio Prot/Creat Unable to Calculate Normal [facility] ([place]) Comment on above: Result Comment: Unab le to calculate this test result accurately. Results used to calculate this test are outside the reportable range. Performed By: #### R PCUR #### [address] [address] .GFRon 10-20-2023 GFR 55 ml/min/1.73sqm Normal [facility] ([place]) Comment on above: Result Comment: GFR Population [...] By: #### P RO, BMP, GFR #### [address] [address] GFR Non- 45 ml/min/1.73sqm Normal [facility] ([place]) Comment on above: Result Comment: GFR Population [...] By: #### P RO, BMP, GFR #### [address] [address] BMPon 10-20-2023 BUN/Creatinine Ratio 15 ratio Normal 7-27 [facility] ([place]) Comment on above: Performed By: #### P RO, BMP, GFR #### [address] [address] Calcium [Mass/Vol] 9.4 mg/dL Normal 8.4-10.2 [facility] ([place]) Comment on above: Performed By: #### P RO, BMP, GFR #### [address] [address] Chloride [Moles/Vol] 105 mmol/L Normal 98-107 [facility] ([place]) Comment on above: Performed By: #### P RO, BMP, GFR #### [address] [address] CO2 [Moles/Vol] 29 mmol/L Normal 23-31 [facility] ([place]) Comment on above: Performed By: #### P RO, BMP, GFR #### [address] [address] Creatinine [Mass/Vol] 1.56 mg/dL High 0.70-1.30 [facility] ([place]) Comment on above: Performed By: #### P RO, BMP, GFR #### [address] [address] Electrolyte Balance 6.0 mEq/L Normal 4.0-15.0 [facility] ([place]) Comment on above: Performed By: #### P RO, BMP, GFR #### [address] [address] Glucose [Mass/Vol] 90 mg/dL Normal 80-115 [facility] ([place]) Comment on above: Performed By: #### P RO, BMP, GFR #### [address] [address] Potassium [Moles/Vol] 5.1 mmol/L Normal 3.5-5.1 [facility] ([place]) Comment on above: Performed By: #### P RO, BMP, GFR #### [place] [address] [place], [place] [address] Sodium [Moles/Vol] 140 mmol/L Normal 136-145 [facility] ([place]) Comment on above: Performed By: #### P RO, BMP, GFR #### [place] [address] [place], [place] [address] Urea nitrogen [Mass/Vol] 24 mg/dL High 7-18 [facility] ([place]) Comment on above: Performed By: #### P RO, BMP, GFR #### [place] [address] [place], [place] [address] DIMERon 10-20-2023 D-Dimer <200 Normal 0-230 [facility] ([place]) Comment on above: Result Comment: DDN: Results [...] (PE). Performed By: #### U A #### [address] [address] LABORATORYOrdered By: SYSTEM SYSTEM on 10-20-2023 Calcium [...] Uric Acid Lvl 7.2 mg/dL Normal 3.5-7.2 [facility] ([place]) Comment on above: Performed By: #### P RO, BMP, GFR #### [address] [address] .Auto Diffon 09-19-2023 Basophil, Absolute 0.1 10 3/mcL Normal 0.0-0.2 [facility] ([place]) Comment on above: Performed By: #### U A #### [address] [address] Basophils/100 WBC (Bld) 1.1 % Normal 0.0-2.5 [facility] ([place]) Comment on above: Performed By: #### U A #### [address] [address] Eosinophil, Absolute 0.2 10 3/mcL Normal 0.0-0.4 [facility] ([place]) Comment on above: Performed By: #### U A #### [address] [address] Eosinophils/100 WBC (Bld) 3.7 % Normal 0.0-7.0 [facility] ([place]) Comment on above: Performed By: #### U A #### [address] [address] Lymphocyte, Absolute 1.6 10 3/mcL Normal 0.8-3.9 [facility] ([place]) Comment on above: Performed By: #### U A #### [address] [address] Lymphocytes/100 WBC (Bld) 26.4 % Normal 10.0-50.0 [facility] ([place]) Comment on above: Performed By: #### U A #### [address] [address] Monocyte, Absolute 0.5 10 3/mcL Normal 0.2-1.0 [facility] ([place]) Comment on above: Performed By: #### U A #### [address] [address] Monocytes/100 WBC (Bld) 8.1 % Normal 1.7-13.0 [facility] ([place]) Comment on above: Performed By: #### U A #### [address] [address] Neutrophils/100 WBC (Bld) 60.7 % Normal 37.0-80.0 [facility] ([place]) Comment on above: Performed By: #### U A #### [address] [address] .GFRon 09-19-2023 GFR 60 ml/min/1.73sqm Normal [facility] ([place]) Comment on above: Result Comment: GFR Population [...] meters Performed By: #### U A #### [address] [address] GFR Non- 50 ml/min/1.73sqm Normal [facility] ([place]) Comment on above: Result Comment: GFR Population [...] meters Performed By: #### U A #### [address] [address] .NEUABSon 09-19-2023 Neutrophil, Absolute 3.7 10 3/mcL Normal 2.9-6.2 [facility] ([place]) Comment on above: Performed By: #### U A #### [address] [address] A1Con 09-19-2023 HbA1c (Bld) [Mass fraction] 5.5 % Normal 4.3-6.4 [facility] ([place]) Comment on above: Performed By: #### U A #### [address] [address] CBCon 09-19-2023 Erythrocyte distribution width (RBC) [Ratio] 16.4 % High 11.5-14.5 [facility] ([place]) Comment on above: Performed By: #### U A #### [address] [address] Hematocrit (Bld) [Volume fraction] 45.3 % Normal 42.0-52.0 [facility] ([place]) Comment on above: Performed By: #### U A #### [place] [address] Hgb 14.7 G/dL Normal 14.0-18.0 [facility] ([place]) Comment on above: Performed By: #### U A #### [place] [address] MCH (RBC) [Entitic mass] 28.5 pg Normal 27.0-31.2 [facility] ([place]) Comment on above: Performed By: #### U A #### [place] [address] MCHC 32.5 G/dL Normal 31.8-35.4 [facility] ([place]) Comment on above: Performed By: #### U A #### [place] [address] MCV (RBC) [Entitic vol] 87.5 fL Normal 80.0-94.0 [facility] ([place]) Comment on above: Performed By: #### U A #### [place] [address] Platelet 171 10 3/mcL Normal 130-400 [facility] ([place]) Comment on above: Performed By: #### U A #### [place] [address] Platelet mean volume (Bld) [Entitic vol] 9.7 fL Normal 7.4-10.4 [facility] ([place]) Comment on above: Performed By: #### U A #### [place] [id number] RBC 5.18 10 6/mcL Normal 4.04-6.13 [facility] ([place]) Comment on above: Performed By: #### U A #### [place] [id number] WBC 6.0 10 3/mcL Normal 4.6-10.8 [facility] ([place]) Comment on above: Performed By: #### U A #### [address] [address] CMPon 09-19-2023 Albumin Level 3.3 G/dL Low 3.4-4.8 [facility] ([place]) Comment on above: Performed By: #### U A #### [address] [address] Albumin/Globulin [Mass ratio] 1.1 {ratio} Normal 1.1-2.5 [facility] ([place]) Comment on above: Performed By: #### U A #### [address] [address] ALP [Catalytic activity/Vol] 73 U/L Normal 40-135 [facility] ([place]) Comment on above: Performed By: #### U A #### [place] [id number] ALT [Catalytic activity/Vol] 14 U/L Low 16-63 [facility] ([place]) Comment on above: Performed By: #### U A #### [address] [address] AST [Catalytic activity/Vol] 16 U/L Normal 10-40 [facility] ([place]) Comment on above: Performed By: #### U A #### [place] [id number] Bili Total 0.6 mg/dL Normal 0.2-1.0 [facility] ([place]) Comment on above: Result Comment: Use of this assay is not recommended for patients undergoing treatment with eltrombopag due to the potential for falsely elevated results. Performed By: #### U A #### [address] [address] BUN/Creatinine Ratio 12 ratio Normal 7-27 [facility] ([place]) Comment on above: Performed By: #### U A #### [address] [address] Calcium [Mass/Vol] 9.1 mg/dL Normal 8.4-10.2 [facility] ([place]) Comment on above: Performed By: #### U A #### [address] [address] Chloride [Moles/Vol] 103 mmol/L Normal 98-107 [facility] ([place]) Comment on above: Performed By: #### U A #### [address] [address] CO2 [Moles/Vol] 30 mmol/L Normal 23-31 [facility] ([place]) Comment on above: Performed By: #### U A #### [address] [address] Creatinine [Mass/Vol] 1.43 mg/dL High 0.70-1.30 [facility] ([place]) Comment on above: Performed By: #### U A #### [address] [address] Electrolyte Balance 8.0 mEq/L Normal 4.0-15.0 [facility] ([place]) Comment on above: Performed By: #### U A #### [address] [address] Globulin 3.0 G/dL Normal [facility] ([place]) Comment on above: Performed By: #### U A #### [address] [address] Glucose [Mass/Vol] 91 mg/dL Normal 80-115 [facility] ([place]) Comment on above: Performed By: #### U A #### [address] [address] Potassium [Moles/Vol] 4.6 mmol/L Normal 3.5-5.1 [facility] ([place]) Comment on above: Performed By: #### U A #### [address] [address] Sodium [Moles/Vol] 141 mmol/L Normal 136-145 [facility] ([place]) Comment on above: Performed By: #### U A #### [address] [address] Total Protein 6.3 G/dL Low 6.4-8.2 [facility] ([place]) Comment on above: Performed By: #### U A #### [facility] [address] [place] [address] Urea nitrogen [Mass/Vol] 17 mg/dL Normal 7-18 [facility] ([place]) Comment on above: Performed By: #### U A #### [facility] [address] [place] [address] LABORATORYOrdered By: SYSTEM SYSTEM on 09-19-2023 Albumin [...] Uric Acid Lvl 9.0 mg/dL High 3.5-7.2 [facility] ([place]) Comment on above: Performed By: #### U A #### [place] [id number] [place] [address] XR FLUORO 1-2 HRS TECH TIMEo n [...] 03/29/2023 1:43:34 AM Ordering Provider: ANTHONY Rodríguez [facility]) APTTon 03-28-2023 aPTT Coag (Bld) [Time] 30.8 s Normal 25.0-35.0 [facility]) Comment on above: Result Comment: For Heparin anticoagulation therapy, the recommended therapeutic range is: 54-77 seconds (APTT Correlation with Anti-Xa therapeutic range of 0.3-0.7 units/ml). PLEASE REFERENCE THE PHARMACY PROTOCOL FOR DOSING. Performed By: #### P RO, BMP, GFR #### [address] [address] Heparin dose (APTT) Unknown Normal [facility] ([place]) Comment on above: Performed By: #### P RO, BMP, GFR #### [place] [address] [place], [place] [address] FIBon 03-28-2023 Fibrinogen 487 mg/dL Normal 250-560 [facility]) Comment on above: Performed By: #### P RO, BMP, GFR #### [address] [place] [address] [place], [place] [address] LABORATORYOrdered By: Raudel Velez on 03-28-2023 aPTT Coag (Bld) [Time] 30.8 s Normal 25.0 - 35.0 [facility] on above: Interpretive Data: F or Heparin anticoagulation therapy, the recommended therapeutic range is: 54-77 seconds (APTT Correlation with Anti-Xa therapeutic range of 0.3-0.7 units/ml). PLEASE REFERENCE THE PHARMACY PROTOCOL FOR DOSING. Fibrinogen 487 mg/dL Normal 250 - 560 mg/dL [facility] Heparin dose (APTT) Unknown (03/28/23 6:35 AM) Normal Coagulation S PT Coag (PPP) [Time] 13.2 s Normal 9.0 - 1 4.2 seconds [facility] Comment on above: Interpretive Data: E ffective 10/02/07, Protime results may be affected by some antibiotics (i.e. Ciprofloxacin, Azithromycin, Bactrim) which may potentiate the action of oral anticoagulants, with further increases in Protime/INR. PT International Ratio 1.2 ratio Invalid Interpretation Code [facility] Comment on above: Interpretive Data: T viraj [employer] (CHEST, 1991, 102:312S-25S) [...] 03-28-2023 Platelet 143 10 3/mcL Low 150-450 [facility] ([place]) Comment on above: Performed By: #### FILIPE BETTS, GFR #### [address] [place] [address] [place], [place] [address] PROon 03-28-2023 INR Coag (PPP) [Relative time] 1.2 {INR} Normal [facility] ([place]) Comment on above: Result Comment: [employer] (CHEST, 1992, 102:312S-25S) recommended therapeutic range for oral anticoagulant therapy is: LOW RISK: Prophylaxis of venous thrombosis INR: 2.0-3.0 Treatment of pulmonary embolism 2.0-3.0 Prevention of systemic embolism 2.0-3.0 HIGH RISK: Mechanical prosthetic valves 2.5-3.5 Performed By: #### P RO, BMP, GFR #### [facility] [address] [place], [place] [address] PT Coag (PPP) [Time] 13.2 s Normal 9.0-14.2 [facility] ([place]) Comment on above: Result Comment: Effe ctive 10/02/07, Protime results may be affected by some antibiotics (i.e. Ciprofloxacin, Azithromycin, Bactrim) which may potentiate the action of oral anticoagulants, with further increases in Protime/INR. Performed By: #### P RO, BMP, GFR #### [facility] [address] [place], [place] [address] Cardiology Visit Reporton Cardiology Visit Report [facility] [address] [place], [place] [address] OFFICE VISIT Date of Service: 03/24/23 MR#: [id number] Acct: [id number] Name: ARELI RUELAS JrMaria Esther Rep #: [id number] : 1960 Provider: LILLIE long Age/Sex: 62/M Location: [facility] Status: Signed [facility] History of Present Illness Details: This [...] 96 Intake Visit Reasons: 1 Y FU [employer] Required: No Is patient in pain?: No [...] tabs 03/24/23 [Rx Confirmed 03/24/23] [facility] Medical History Acute gout Ambulates with cane Arthritis Atherosclerosis of coronary artery of [place] heart without angina pectoris Cardiac dysrhythmia 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 Normal [facility] XR CHEST 2 VIEWSon 3 XR CHEST [...] 8:43:37 AM Ordering Provider: ANTHONY FERNÁNDEZ Normal [facility] ([place]) [facility] 03-15-2023 Color (U) Yellow Normal [facility] ([place] Comment on above: Performed By: #### U A #### [address] [address] Glucose (U) [Mass/Vol] Negative Normal Negative [facility] ([place]) Comment on above: Performed By: #### U A #### [address] [address] Ketones Ql (U) Negative Normal Neg-Trace [facility] ([place] Comment on above: Performed By: #### U A #### [address] [address] UA Appear Clear Normal Clear [facility] ([place] Comment on above: Performed By: #### U A #### [address] [address] UA Blood Trace Normal Neg-Trace [facility] ([place] Comment on above: Performed By: #### U A #### [address] [address] UA Leuk Est Negative Normal Negative [facility] ([place] Comment on above: Performed By: #### U A #### [address] [address] UA Nitrite Negative Normal Negative [facility] ([place] Comment on above: Performed By: #### U A #### [address] [address] UA pH 6.5 Normal 5.0 - 8.0 [facility] ([place] Comment on above: Performed By: #### U A #### [address] [address] UA Protein 30 mg/dL Normal Negative [facility] ([place] Comment on above: Performed By: #### U A #### [address] [address] UA Spec Grav 1.025 Normal 1.006-1.029 [facility] ([place]) Comment on above: Performed By: #### U A #### [address] [address] UA Specimen Type Clean Catch Normal [facility] ([place] Comment on above: Performed By: #### U A #### [address] [address] UA Urobilinogen 1.0 E.U./dL Normal 0.2-1.0 [facility] ([place] Comment on above: Performed By: #### U A #### [address] [address] Urobilinogen (U) [Mass/Vol] Negative Normal Neg-Trace [facility] ([place] Comment on above: Performed By: #### U A #### [address] [address] .Auto Diffon 03-09-2023 Basophil, Absolute 0.1 10 3/mcL Normal 0.0-0.2 [facility] ([place]) Comment on above: Performed By: #### P RO, BMP, GFR #### [address] [address] Basophils/100 WBC (Bld) 1.0 % Normal 0.0-2.5 [facility] ([place] Comment on above: Performed By: #### P RO, BMP, GFR #### [address] [address] Eosinophil, Absolute 0.2 10 3/mcL Normal 0.0-0.4 [facility] ([place]) Comment on above: Performed By: #### P RO, BMP, GFR #### [address] [address] Eosinophils/100 WBC (Bld) 3.2 % Normal 0.0-7.0 [facility] ([place] Comment on above: Performed By: #### P RO, BMP, GFR #### [address] [address] Lymphocyte, Absolute 1.9 10 3/mcL Normal 0.8-3.9 [facility] ([place]) Comment on above: Performed By: #### P RO, BMP, GFR #### [address] [address] Lymphocytes/100 WBC (Bld) 29.2 % Normal 10.0-50.0 [facility] ([place] Comment on above: Performed By: #### P RO, BMP, GFR #### [address] [address] Monocyte, Absolute 0.7 10 3/mcL Normal 0.2-1.0 [facility] ([place]) Comment on above: Performed By: #### P RO, BMP, GFR #### [address] [address] Monocytes/100 WBC (Bld) 11.5 % Normal 1.7-13.0 [facility] ([place] Comment on above: Performed By: #### P RO, BMP, GFR #### [address] [address] Neutrophils/100 WBC (Bld) 55.1 % Normal 37.0-80.0 [facility] ([place]) Comment on above: Performed By: #### P RO, BMP, GFR #### [address] [address] .GFRon 03-09-2023 GFR 72 ml/min/1.73sqm Normal [facility] ([place]) Comment on above: Result Comment: GFR [...] By: #### P RO, BMP, GFR #### [address] [address] GFR Non- 59 ml/min/1.73sqm Normal [facility] ([place]) Comment on above: Result Comment: GFR Population [...] By: #### P RO, BMP, GFR #### [address] [address] .NEUABSon 03-09-2023 Neutrophil, Absolute 3.5 10 3/mcL Normal 2.9-6.2 [facility] ([place]) Comment on above: Performed By: #### P RO, BMP, GFR #### [address] [address] A1Con 03-09-2023 HbA1c (Bld) [Mass fraction] 5.6 % Normal 4.3-6.4 [facility] ([place] Comment on above: Performed By: #### P RO, BMP, GFR #### [address] [address] B12on 03-09-2023 Cobalamin (Vitamin B12) [Mass/Vol] 381 pg/mL Normal 211-911 [facility] ([place]) Comment on above: Performed By: #### P RO, BMP, GFR #### [place] [address] CBCon 03-09-2023 Erythrocyte distribution width (RBC) [Ratio] 15.8 % High 11.5-14.5 [facility] ([place] Comment on above: Performed By: #### P RO, BMP, GFR #### [place] [address] Hematocrit (Bld) [Volume fraction] 48.8 % Normal 42.0-52.0 [facility] ([place] Comment on above: Performed By: #### P RO, BMP, GFR #### [place] [address] Hgb 15.9 G/dL Normal 14.0-18.0 [facility] ([place] Comment on above: Performed By: #### P RO, BMP, GFR #### [place] [address] MCH (RBC) [Entitic mass] 27.4 pg Normal 27.0-31.2 [facility] ([place] Comment on above: Performed By: #### P RO, BMP, GFR #### [place] [address] MCHC 32.5 G/dL Normal 31.8-35.4 [facility] ([place] Comment on above: Performed By: #### P RO, BMP, GFR #### [place] [id number] MCV (RBC) [Entitic vol] 84.4 fL Normal 80.0-94.0 [facility] ([place] Comment on above: Performed By: #### P RO, BMP, GFR #### [address] [address] Platelet 147 10 3/mcL Normal 130-400 [facility] ([place] Comment on above: Performed By: #### P RO, BMP, GFR #### [address] [address] Platelet mean volume (Bld) [Entitic vol] 9.5 fL Normal 7.4-10.4 [facility] ([place] Comment on above: Performed By: #### P RO, BMP, GFR #### [address] [address] RBC 5.78 10 6/mcL Normal 4.04-6.13 [facility] ([place] Comment on above: Performed By: #### P RO, BMP, GFR #### [address] [address] WBC 6.4 10 3/mcL Normal 4.6-10.8 [facility] ([place] Comment on above: Performed By: #### P RO, BMP, GFR #### [address] [address] CMPon 03-09-2023 Albumin Level 3.6 G/dL Normal 3.4-4.8 [facility] ([place] Comment on above: Performed By: #### P RO, BMP, GFR #### [address] [address] Albumin/Globulin [Mass ratio] 1.1 {ratio} Normal 1.1-2.5 [facility] ([place] Comment on above: Performed By: #### P RO, BMP, GFR #### [address] [address] ALP [Catalytic activity/Vol] 82 U/L Normal 40-135 [facility] ([place] Comment on above: Performed By: #### P RO, BMP, GFR #### [address] [address] ALT [Catalytic activity/Vol] 23 U/L Normal 16-63 [facility] ([place] Comment on above: Performed By: #### P RO, BMP, GFR #### [address] [address] AST [Catalytic activity/Vol] 16 U/L Normal 10-40 [facility] ([place] Comment on above: Performed By: #### P RO, BMP, GFR #### [address] [address] Bili Total 0.6 mg/dL Normal 0.2-1.0 [facility] ([place]) Comment on above: Result Comment: Use of this assay is not recommended for patients undergoing treatment with eltrombopag due to the potential for falsely elevated results. Performed By: #### P RO, BMP, GFR #### [address] [address] BUN/Creatinine Ratio 14 ratio Normal 7-27 [facility] ([place] Comment on above: Performed By: #### P RO, BMP, GFR #### [address] [address] Calcium [Mass/Vol] 9.3 mg/dL Normal 8.4-10.2 [facility] ([place]) Comment on above: Performed By: #### P RO, BMP, GFR #### [address] [address] Chloride [Moles/Vol] 105 mmol/L Normal 98-107 [facility] ([place] Comment on above: Performed By: #### P RO, BMP, GFR #### [address] [address] CO2 [Moles/Vol] 31 mmol/L Normal 23-31 [facility] ([place] Comment on above: Performed By: #### P RO, BMP, GFR #### [address] [address] Creatinine [Mass/Vol] 1.23 mg/dL Normal 0.70-1.30 [facility] ([place]) Comment on above: Performed By: #### P RO, BMP, GFR #### [address] [address] Electrolyte Balance 8.0 mEq/L Normal 4.0-15.0 [facility] ([place]) Comment on above: Performed By: #### P RO, BMP, GFR #### [address] [address] Globulin 3.3 G/dL Normal [facility] ([place]) Comment on above: Performed By: #### P RO, BMP, GFR #### [address] [address] Glucose [Mass/Vol] 77 mg/dL Low 80-115 [facility] ([place]) Comment on above: Performed By: #### P RO, BMP, GFR #### [address] [address] Potassium [Moles/Vol] 3.9 mmol/L Normal 3.5-5.1 [facility] ([place]) Comment on above: Performed By: #### P RO, BMP, GFR #### [address] [address] Sodium [Moles/Vol] 144 mmol/L Normal 136-145 [facility] ([place]) Comment on above: Performed By: #### P RO, BMP, GFR #### [address] [address] Total Protein 6.9 G/dL Normal 6.4-8.2 [facility] ([place]) Comment on above: Performed By: #### P RO, BMP, GFR #### [address] [address] Urea nitrogen [Mass/Vol] 17 mg/dL Normal 7-18 [facility] ([place] Comment on above: Performed By: #### P RO, BMP, GFR #### [address] [address] FT4on 03-09-2023 Free T4 [Mass/Vol] 1.26 ng/dL Normal 0.76-1.46 [facility] ([place]) Comment on above: Performed By: #### P RO, BMP, GFR #### [address] [address] LIPIDon 03-09-2023 Cholesterol [Mass/Vol] 147 mg/dL Normal 0-200 [facility] ([place]) Comment on above: Result Comment: Chol esterol Reference Interval: Less than 200 Desirable 200-239 Borderline high risk 240 and above High risk Performed By: #### P RO, BMP, GFR #### [address] [address] Cholesterol in HDL [Mass/Vol] 49 mg/dL Normal 40-60 [facility] ([place]) Comment on above: Performed By: #### P RO, BMP, GFR #### [address] [address] Cholesterol in LDL [Mass/Vol] 85 mg/dL Normal 0-130 [facility] ([place] Comment on above: Performed By: #### P RO, BMP, GFR #### [address] [address] Triglyceride [Mass/Vol] 66 mg/dL Normal 0-150 [facility] ([place]) Comment on above: Result Comment: Trig lyceride Reference Interval: Less than 150 Normal 150-199 Borderline high risk 200-499 High risk 500 or higher Very high risk Performed By: #### P RO, BMP, GFR #### [address] [address] MALBRon 03-09-2023 U Creatinine 266.7 mg/dL High 39.0-259.0 [facility] ([place]) Comment on above: Performed By: #### U A #### [address] [address] U Microalb 6124 mcg/dL Normal [facility] ([place]) Comment on above: Performed By: #### U A #### [facility] [address] [place] [address] U Ratio Alb/Cre 23 mcg/mg Normal 0-30 [facility] ([place]) Comment on above: Performed By: #### U A #### [address] [address] PSAon 03-09-2023 Prostate Specific Antigen 2.07 ng/mL Normal 0.00-4.00 [facility] ([place]) Comment on above: Performed By: #### P RO, BMP, GFR #### [address] [address] TSHon 03-09-2023 TSH Qn 1.17 m[IU]/L Normal 0.36-3.74 [facility] ([place]) Comment on above: Performed By: #### P RO, BMP, GFR #### [place] [address] URICon 03-09-2023 Uric Acid Lvl 8.9 mg/dL High 3.5-7.2 [facility] ([place]) Comment on above: Performed By: #### P RO, BMP, GFR #### [address] [address] VIDHon 03-09-2023 Vit. D 25-Hydroxy 46.0 ng/mL Normal [facility] ([place]) Comment on above: Result Comment: Inte rpretive Values Based on Total 25(OH) Vitamin D: Deficient <20 ng/mL Insufficient 20 - <30 ng/mL Sufficient 30-100 ng/mL Performed By: #### P RO, BMP, GFR #### [address] [address] .GFRon 01-09-2023 GFR 81 ml/min/1.73sqm Normal [facility] ([place]) Comment on above: Result Comment: GFR Population [...] By: #### P RO, BMP, GFR #### [address] [address] GFR Non- 67 ml/min/1.73sqm Normal [facility] ([place]) Comment on above: Result Comment: GFR Population [...] By: #### P RO, BMP, GFR #### [address] [address] BMPon 01-09-2023 BUN/Creatinine Ratio 14 ratio Normal 7-27 [facility] ([place]) Comment on above: Performed By: #### P RO, BMP, GFR #### [address] [address] Calcium [Mass/Vol] 8.6 mg/dL Normal 8.4-10.2 [facility] ([place]) Comment on above: Performed By: #### P RO, BMP, GFR #### [address] [address] Chloride [Moles/Vol] 103 mmol/L Normal 98-107 [facility] ([place]) Comment on above: Performed By: #### P RO, BMP, GFR #### [address] [address] CO2 [Moles/Vol] 33 mmol/L High 23-31 [facility] ([place]) Comment on above: Performed By: #### P RO, BMP, GFR #### [address] [address] Creatinine [Mass/Vol] 1.11 mg/dL Normal 0.70-1.30 [facility] ([place]) Comment on above: Performed By: #### P RO, BMP, GFR #### [address] [address] Electrolyte Balance 7.0 mEq/L Normal 4.0-15.0 [facility] ([place]) Comment on above: Performed By: #### P RO, BMP, GFR #### [address] [address] Glucose [Mass/Vol] 96 mg/dL Normal 80-115 [facility] ([place]) Comment on above: Performed By: #### P RO, BMP, GFR #### [address] [address] Potassium [Moles/Vol] 3.6 mmol/L Normal 3.5-5.1 [facility] ([place]) Comment on above: Performed By: #### P RO, BMP, GFR #### [address] [address] Sodium [Moles/Vol] 143 mmol/L Normal 136-145 [facility] ([place]) Comment on above: Performed By: #### P RO, BMP, GFR #### [address] [address] Urea nitrogen [Mass/Vol] 16 mg/dL Normal 7-18 [facility] ([place]) Comment on above: Performed By: #### P RO, BMP, GFR #### [address] [address] LABORATORYOrdered By: SYSTEM SYSTEM on 01-09-2023 Calcium [...] Comment on above: Interpretive Data: Francoise cali [employer] (CHEST, 1991, [id number]) [...] Coag (PPP) [Time] 13.8 s Normal 9.0-14.2 [facility] ([place]) Comment on above: Performed By: #### P RO, BMP, GFR #### [address] [address] PT International Ratio 1.2 Normal [facility] ([place]) Comment on above: Result Comment: [employer] (CHEST, 1991, [id number]) recommended therapeutic range for oral anticoagulant therapy is: LOW RISK: Prophylaxis of venous thrombosis INR: 2.0-3.0 Treatment of pulmonary embolism 2.0-3.0 Prevention of systemic embolism 2.0-3.0 HIGH RISK: Mechanical prosthetic valves 2.5-3.5 Performed By: #### P RO, BMP, GFR #### [address] [address] XR FLUORO < 1HR TECH TIMEon 01-09-2023 XR FLUORO < 1HR TECH TIME ORIGINAL Images acquired, not reported on this accession number. Normal [facility] ([place]) LABORATORYOrdered By: Karyn Esquivel on 05-23-2022 Albumin [...] INR Coag (Bld) [Relative time] 1.3 {INR} [facility] Comment on above: Critical Value > 4.0 Whole blood prothrombin time Ordered By: Dr. Owens on 05-09-2022 PT Coag (Bld) [Time] 15.6 s 11.7-14.9 [facility] Laboratory - CoagulationOrde red By: Dr. Owens on 02-07-2022 INR Coag (Bld) [Relative time] 1.1 {INR} [facility] Comment on above: Critical Value > 4.0 Whole blood prothrombin time Ordered By: Dr. Owens on 02-07-2022 PT Coag (Bld) [Time] 13.5 s 11.7-14.9 [facility] Laboratory - Coagulationon 1 INR Coag (Bld) [Relative time] 1.2 {INR} [facility] Work Phone: Comment on above: Critical Value > 4.0 Whole blood prothrombin time on 12-20-2021 PT Coag (Bld) [Time] 14.6 s 11.7-14.9 [facility] Work Phone: LABORATORYOrdered By: Karyn Esquivel on [...] Auto (Unsp spec) [#/Vol] 0.86 10*3/uL 0.83-4.51 [facility] Work Phone: Basophil percentageon 2021 Basophils/100 WBC (Bld) 0.3 % 0-1 [facility] Work Phone: [phone] Chloride [Moles/Vol] 104 mmol/L 98-107 [facility] Work Phone: [phone] Eosinophils/100 WBC (Bld) 0.0 % 0-5 [facility] Work Phone: [phone] Glucose [Mass/Vol] 135 mg/dL 74-106 [facility] Work Phone: Comment on above: Fasting Glucose resu lt greater than or equal to 126 mg/dL suggests DIABETES MELLITUS per A.D.A. criteria. Neutrophils (Bld) [#/Vol] 7.7 10*3/uL 2.0-7.7 [facility] Work Phone: Neutrophils/100 WBC (Bld) 80.1 % 47-70 [facility] Work Phone: Potassium [Moles/Vol] 3.8 mmol/L 3.5-5.1 [facility] Work Phone: Sodium [Moles/Vol] 140 mmol/L 136-145 [facility] Work Phone: WBC (Bld) [#/Vol] 9.6 10*3/uL 4.4-11.0 [facility] Work Phone: Blood erythrocytes count (nu mber/volume)on 12-02-2021 RBC (Bld) [#/Vol] 6.07 10*6/uL 4.6-6.2 [facility] Work Phone: Blood hemoglobin measurement (mass/volume)on 12-02-2021 Hemoglobin (Bld) [Mass/Vol] 15.3 g/dL 13.0-16.5 [facility] Work Phone: Blood lymphocytes/100 leukoc yteson 12-02-2021 Lymphocytes/100 WBC (Bld) 9.0 % 19-41 [facility] Work Phone: Blood manual differential co mment interpretation (narrative result)on 12-02-2021 Manual differential comment Omar (Bld) [Interp] SCANNED [facility] Work Phone: Blood monocytes/100 leukocyt eson 12-02-2021 Monocytes/100 WBC (Bld) 10.2 % 0-10 [facility] Work Phone: Blood platelet mean volumeon 12-02-2021 Platelet mean volume (Bld) [Entitic vol] TNP [facility] Work Phone: Comment on above: Test not performed Determination of erythrocyte mean corpuscular volume (MCV)on 12-02-2021 MCV (RBC) [Entitic vol] 77.9 fL 80-94 [facility] Work Phone: Hematocrit Auto (Bld) [Volum e fraction]on 12-02-2021 Hematocrit (Bld) [Volume fraction] 47.3 % 40-54 [facility] Work Phone: INR in Blood by Coagulation assayon 12-02-2021 INR Coag (Bld) [Relative time] 1.2 {INR} [facility] Work Phone: Laboratory - Chemistry and C hemistry - challengeon 12-02-2021 CO2 [Moles/Vol] 28.0 mmol/L 21.0-32.0 [facility] Work Phone: Urea nitrogen/Creatinine [Mass ratio] 18.6 mg/mg 10-20 [facility] Work Phone: Laboratory - Coagulationon 0 12-02-2021 PT Coag (PPP) [Time] 15.1 s 11.7-14.9 [facility] Work Phone: Laboratory - Hematology and Cell countson 12-02-2021 Anisocytosis Ql (Bld) 1+ [facility] Work Phone: Erythrocyte distribution width (RBC) [Entitic vol] 55.2 fL 35.1-43.9 [facility] Work Phone: Erythrocyte distribution width (RBC) [Ratio] 20.3 % 11.6-14.6 [facility] Work Phone: Immature granulocytes/100 WBC (Bld) 0.400 % 0.0-0.9 [facility] Work Phone: Comment on above: IG% - Immature Granu locytes (promyelocytes, myelocytes and metamyelocytes) > 1% indicates that a LEFT SHIFT is Present. MCH (RBC) [Entitic mass] 25.2 pg 27.0-32.0 [facility] Work Phone: Nucleated RBC/100 WBC (Bld) [Ratio] 0 % 0-5 [facility] Work Phone: MCHC Auto (RBC) [Mass/Vol]on 12-02-2021 MCHC (RBC) [Mass/Vol] 32.3 g/dL 32-36 [facility] Work Phone: No Panel Informationon 12-02 Estimated Creatinine Clearance Calc 61.83 ml/min [facility] Work Phone: Estimated GFR (MDRD) Amer 66 mL/min >60 [facility] Work Phone: Comment on above: GFR Calc Estimated GFR (MDRD) Non-Af Amer 55 mL/min >60 [facility] Work Phone: Comment on above: Non- GFR Calc Platelets bldon 12-02-2021 Platelets (Bld) [#/Vol] 192 10*3/uL 150-450 [facility] Work Phone: Serum or plasma calcium jamey urement (mass/volume)on 12-02-2021 Calcium [Mass/Vol] 8.7 mg/dL 8.5-10.1 [facility] Work Phone: Serum or plasma creatinine m easurement (mass/volume)on 12-02-2021 Creatinine [Mass/Vol] 1.40 mg/dL 0.70-1.30 [facility] Work Phone: Comment on above: The validity of the calculated GFR & GFRAA in patients over 70 years has not been determined. Clinical correlation is essential. Serum or plasma urea nitroge n measurement (mass/volume)on 12-02-2021 Urea nitrogen [Mass/Vol] 26 mg/dL 7-18 [facility] Work Phone: Thin prep Papanicolaou smear with manual screeningon 12-02-2021 Thin prep Papanicolaou smear with manual screening 8 5-15 [facility] Work Phone: Absolute lymphocyte counton 12-01-2021 Lymphocytes Auto (Unsp spec) [#/Vol] 1.68 10*3/uL 0.83-4.51 [facility] Work Phone: Basophil percentageon 2021 Basophils/100 WBC (Bld) 0.6 % 0-1 [facility] Work Phone: Chloride [Moles/Vol] 102 mmol/L 98-107 [facility] Work Phone: Eosinophils/100 WBC (Bld) 0.3 % 0-5 [facility] Work Phone: Glucose [Mass/Vol] 88 mg/dL 74-106 [facility] Work Phone: Neutrophils (Bld) [#/Vol] 7.5 10*3/uL 2.0-7.7 [facility] Work Phone: Neutrophils/100 WBC (Bld) 66.7 % 47-70 [facility] Work Phone: Potassium [Moles/Vol] 5.4 mmol/L 3.5-5.1 [facility] Work Phone: Sodium [Moles/Vol] 137 mmol/L 136-145 [facility] Work Phone: WBC (Bld) [#/Vol] 11.2 10*3/uL 4.4-11.0 [facility] Work Phone: Blood erythrocytes count (nu mber/volume)on 12-01-2021 RBC (Bld) [#/Vol] 6.61 10*6/uL 4.6-6.2 [facility] Work Phone: Blood hemoglobin measurement (mass/volume)on 12-01-2021 Hemoglobin (Bld) [Mass/Vol] 16.7 g/dL 13.0-16.5 [facility] Work Phone: Blood lymphocytes/100 leukoc yteson 12-01-2021 Lymphocytes/100 WBC (Bld) 15.0 % 19-41 [facility] Work Phone: Blood manual differential co mment interpretation (narrative result)on 12-01-2021 Manual differential comment Omar (Bld) [Interp] See comment [facility] Work Phone: Comment on above: MONOCYTOSIS NOTED Blood monocytes/100 leukocyt eson 12-01-2021 Monocytes/100 WBC (Bld) 17.0 % 0-10 [facility] Work Phone: Blood platelet adequacy dete ction by light microscopyon 12-01-2021 Platelets LM Ql (Bld) ADEQUATE ADEQ [facility] Work Phone: Blood platelet mean volumeon 12-01-2021 Platelet mean volume (Bld) [Entitic vol] 11.5 fL 6.2-12.0 [facility] Work Phone: Determination of erythrocyte mean corpuscular volume (MCV)on 12-01-2021 MCV (RBC) [Entitic vol] 80.0 fL 80-94 [facility] Work Phone: Erythrocyte sedimentation ra gabe 12-01-2021 ESR (Bld) [Velocity] 25 mm/h 0-20 [facility] Work Phone: Hematocrit Auto (Bld) [Volum e fraction]on 12-01-2021 Hematocrit (Bld) [Volume fraction] 52.9 % 40-54 [facility] Work Phone: INR in Blood by Coagulation assayon 12-01-2021 INR Coag (Bld) [Relative time] 1.1 {INR} [facility] Work Phone: Laboratory - Chemistry and C hemistry - challengeon 12-01-2021 CO2 [Moles/Vol] 25.0 mmol/L 21.0-32.0 [facility] Work Phone: Urea nitrogen/Creatinine [Mass ratio] 14.0 mg/mg 10-20 [facility] Work Phone: [phone] Laboratory - Coagulationon 0 12-01-2021 PT Coag (PPP) [Time] 14.3 s 11.7-14.9 [facility] Work Phone: Laboratory - Hematology and Cell countson 12-01-2021 Anisocytosis Ql (Bld) [facility]+ [facility]: Erythrocyte distribution width (RBC) [Entitic vol] 57.8 fL 35.1-43.9 [facility] Work Phone: Erythrocyte distribution width (RBC) [Ratio] 21.3 % 11.6-14.6 [facility] Work Phone: Immature granulocytes/100 WBC (Bld) 0.400 % 0.0-0.9 [facility] Work Phone: [phone] Comment on above: IG% - Immature Granu locytes (promyelocytes, myelocytes and metamyelocytes) > 1% indicates that a LEFT SHIFT is Present. MCH (RBC) [Entitic mass] 25.3 pg 27.0-32.0 [facility] Work Phone: Nucleated RBC/100 WBC (Bld) [Ratio] 0 % 0-5 [facility] Work Phone: MCHC Auto (RBC) [Mass/Vol]on 12-01-2021 MCHC (RBC) [Mass/Vol] 31.6 g/dL 32-36 [facility] Work Phone: No Panel Informationon 12-01 Estimated Creatinine Clearance Calc 71.54 ml/min [facility] Work Phone: Estimated GFR (MDRD) Amer 78 mL/min >60 [facility] Work Phone: Comment on above: GFR Calc Estimated GFR (MDRD) Non-Af Amer 65 mL/min >60 [facility] Work Phone: Comment on above: Non- GFR Calc Platelets bldon 12-01-2021 Platelets (Bld) [#/Vol] 185 10*3/uL 150-450 [facility] Work Phone: RBC morphologyon 12-01-2021 RBC morphology finding Nom (Bld) N CHROM NORMAL NORM C&C [facility] Work Phone: Review by pathologiston 11-18 Pathologist review Omar (Unsp spec) [Interp] Meche colton [facility] Work Phone: Pathologist review Omar (Unsp spec) [Interp] Reviewed [facility] Work Phone: Comment on above: Previous reported re sult: Meche segura Edited by: RGOMANOHAR on 12/02/21:1509Leukocytosis. PolycythemiaClinical correlation necessary.Jostin Coello M.D. 12/02/21 AMENDED REPORT 12/02/21 1509 PATH REV previously reported as: Meche segura Serum or plasma C reactive p rotein measurement (mass/volume)on 12-01-2021 CRP [Mass/Vol] 98.70 mg/L 0.0-3.0 [facility] Work Phone: Comment on above: C-Reactive Protein ( CRP) provides useful information for thediagnosis, therapy and monitoring of inflammatory processesand associated diseases. For the evaluation of Relative Riskfor Cardiovascular Disease, a High Sensitivity CRP (HSCRP)should be ordered. Serum or plasma calcium jamey urement (mass/volume)on 12-01-2021 Calcium [Mass/Vol] 9.0 mg/dL 8.5-10.1 [facility] Work Phone: Serum or plasma creatinine m easurement (mass/volume)on 12-01-2021 Creatinine [Mass/Vol] 1.21 mg/dL 0.70-1.30 [facility] Work Phone: Comment on above: The validity of the calculated GFR & GFRAA in patients over 70 years has not been determined. Clinical correlation is essential. Serum or plasma urea nitroge n measurement (mass/volume)on 12-01-2021 Urea nitrogen [Mass/Vol] 17 mg/dL 7-18 [facility] Work Phone: Serum or plasma uric acid me asurement (mass/volume)on 12-01-2021 Urate [Mass/Vol] 9.3 mg/dL 3.5-7.2 [facility] Work Phone: Comment on above: The drugs N-Acetylcy steine and Metamizole may falsely depress this assay. Thin prep Papanicolaou smear with manual screeningon 12-01-2021 Thin prep Papanicolaou smear with manual screening 10 5-15 [facility] Work Phone: Laboratory - Coagulationon 0 09-06-2021 INR Coag (Bld) [Relative time] 1.2 {INR} [facility] Work Phone: Comment on above: Critical Value > 4.0 Whole blood prothrombin time on 09-06-2021 PT Coag (Bld) [Time] 14.7 s 11.7-14.9 [facility] Work Phone: Laboratory - Coagulationon 0 07-19-2021 INR Coag (Bld) [Relative time] 1.0 {INR} [facility] Work Phone: Comment on above: Critical Value > 4.0 Whole blood prothrombin time on 07-19-2021 PT Coag (Bld) [Time] 12.7 s 11.7-14.9 [facility] Work Phone: Laboratory - Coagulationon 0 06-07-2021 INR Coag (Bld) [Relative time] 1.1 {INR} [facility] Work Phone: Comment on above: Critical Value > 4.0 Whole blood prothrombin time on 06-07-2021 PT Coag (Bld) [Time] 13.9 s 11.7-14.9 [facility] Work Phone: Vital Signs Date Time Vital Sign Value Performing Clinician Facility 01-10-2025 13:58-0400 Diastolic Blood Pressure Non-Invasive 89 mm[Hg] AKSHAT SAWYER 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 [facility] 01-10-2025 13:58-0400 Heart rate 67 /min AKSHAT SAWYER 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 [facility] 01-10-2025 13:58-0400 Systolic Blood Pressure Non-Invasive 143 mm[Hg] AKSHAT SAWYER 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 [facility] 01-10-2025 13:52-0400 Diastolic Blood Pressure Non-Invasive 108 mm[Hg] AKSHAT SAWYER 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 [facility] 01-10-2025 13:52-0400 Heart rate 78 /min AKSHAT SAWYER 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 [facility] 01-10-2025 13:52-0400 Systolic Blood Pressure Non-Invasive 173 mm[Hg] AKSHAT SAWYER 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 [facility] 01-10-2025 13:44-0400 Diastolic Blood Pressure Non-Invasive 117 mm[Hg] AKSHAT SAWYER 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 [facility] 01-10-2025 13:44-0400 Heart rate 84 /min AKSHAT SAWYER 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 [facility] 01-10-2025 13:44-0400 Systolic Blood Pressure Non-Invasive 176 mm[Hg] AKSHAT SAWYER 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 [facility] 01-10-2025 12:09-0400 Blood Pressure Cuff Size AKSHAT SAWYER 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 [facility] 01-10-2025 12:09-0400 Blood Pressure Location AKSHAT SAWYER 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 [facility] 01-10-2025 12:09-0400 Blood Pressure Method AKSHAT SAWYER 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 [facility] 01-10-2025 12:09-0400 Body height 180 cm AKSHAT SAWYER 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 [facility] 01-10-2025 12:09-0400 Body temperature 98.78 [degF] AKSHAT SAWYER 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 [facility] 01-10-2025 12:09-0400 Body weight 159 kg AKSHAT SAWYER 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 [facility] 01-10-2025 12:09-0400 Body weight 49.07 kg/m2 AKSHAT SAWYER 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 [facility] 01-10-2025 12:09-0400 Respiratory rate 16 /min AKSHAT SAWYER 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 [facility] 03-22-2024 13:00-0500 Diastolic Blood Pressure Non-Invasive 91 mm[Hg] BEN AUGUST MD [facility] 03-22-2024 13:00-0500 Heart rate 74 /min BEN AUGUST MD [facility] 03-22-2024 13:00-0500 Respiratory rate 14 /min BEN AUGUST MD [facility] 03-22-2024 13:00-0500 Systolic Blood Pressure Non-Invasive 156 mm[Hg] BEN AUGUST MD [facility] 03-22-2024 12:54-0500 Diastolic Blood Pressure Non-Invasive 80 mm[Hg] BEN AUGUST MD [facility] 03-22-2024 12:54-0500 Heart rate 76 /min BEN AUGUST MD [facility] 03-22-2024 12:54-0500 Respiratory rate 16 /min BEN AUGUST MD [facility] 03-22-2024 12:54-0500 Systolic Blood Pressure Non-Invasive 168 mm[Hg] BEN AUGUST MD [facility] 03-22-2024 12:49-0500 Diastolic Blood Pressure Non-Invasive 80 mm[Hg] BEN AUGUST MD [facility] 03-22-2024 12:49-0500 Heart rate 78 /min BEN AUGUST MD [facility] 03-22-2024 12:49-0500 Respiratory rate 16 /min BEN AUGUST MD [facility] 03-22-2024 12:49-0500 Systolic Blood Pressure Non-Invasive 170 mm[Hg] BEN AUGUST MD [facility] 03-22-2024 11:51-0500 Blood Pressure Location BEN AUGUST MD [facility] 03-22-2024 11:51-0500 Body height 70.9 cm BEN AUGUST MD [facility] 03-22-2024 11:51-0500 Body temperature 98.06 [degF] BEN AUGUST MD [facility] 03-22-2024 11:51-0500 Body weight 153.5 kg BEN AUGUST MD [facility] 03-22-2024 11:51-0500 Body weight 305.36 kg/m2 BEN AUGUST MD [facility] 09-23-2023 15:52-0400 Blood Pressure Cuff Size ZEFERINO COLORADO DO [facility] 09-23-2023 15:52-0400 Blood Pressure Location ZEFERINO COLORADO DO [facility] 09-23-2023 15:52-0400 Blood Pressure Method ZEFERINO Macdonald [facility] 09-23-2023 15:52-0400 Body temperature 98.6 [degF] ZEFERINO COLORADO DO [facility] 09-23-2023 15:52-0400 Diastolic Blood Pressure Non-Invasive 70 mm[Hg] ZEFERINO FAUSTINT DO [facility] 09-23-2023 15:52-0400 Heart rate 55 /min ZEFERINO FAUSTINT DO [facility] 09-23-2023 15:52-0400 Respiratory rate 18 /[facility] 09-23-2023 15:52-0400 Systolic Blood Pressure Non-Invasive 125 mm[Hg] [facility] 03-28-2023 13:12-0500 Body temperature 96.8 [degF] ANTHONY FERNÁNDEZ MD [address] 03-28-2023 13:12-0500 Diastolic Blood Pressure Non-Invasive 90 mm[Hg] ANTHONY FERNÁNDEZ MD [address] [place] [address] 03-28-2023 13:12-0500 Heart rate 50 /min ANTHONY FERNÁNDEZ MD [address] [place] [address] 03-28-2023 13:12-0500 Respiratory rate 18 /min ANTHONY FERNÁNDEZ MD [facility] 03-28-2023 13:12-0500 Systolic Blood Pressure Non-Invasive 160 mm[Hg] ANTHONY FERNÁNDEZ MD [address] [place] [address] 03-28-2023 12:05-0500 Body temperature 96.26 [degF] ANTHONY FERNÁNDEZ MD [address] [place] [address] 03-28-2023 12:05-0500 Diastolic Blood Pressure Non-Invasive 94 mm[Hg] ANTHONY FERNÁNDEZ MD [address] [place] [address] 03-28-2023 12:05-0500 Heart rate 59 /min ANTHONY FERNÁNDEZ MD [address] [place] [address] 03-28-2023 12:05-0500 Respiratory rate 16 /min ANTHONY FERNÁNDEZ MD [address] [place] [address] 03-28-2023 12:05-0500 Systolic Blood Pressure Non-Invasive 162 mm[Hg] ANTHONY FERNÁNDEZ MD [address] [place] [address] 03-28-2023 11:53-0500 Body temperature 96.98 [degF] ANTHONY FERNÁNDEZ MD [address] [place] [address] 03-28-2023 11:53-0500 Diastolic Blood Pressure Non-Invasive 82 mm[Hg] ANTHONY FERNÁNDEZ MD [address] [place] [address] 03-28-2023 11:53-0500 Heart rate 58 /min ANTHONY FERNÁNDEZ MD [address] [place] [address] 03-28-2023 11:53-0500 Mean blood pressure 102 mm[Hg] ANTHONY FERNÁNDEZ MD [address] [place] [address] 03-28-2023 11:53-0500 Respiratory rate 18 /min ANTHONY FERNÁNDEZ MD [address] [place] [address] 03-28-2023 11:53-0500 Systolic Blood Pressure Non-Invasive 150 mm[Hg] ANTHONY FERNÁNDEZ MD [address] [place] [address] 03-28-2023 11:39-0500 Heart rate 58 /min ANTHONY FERNÁNDEZ MD [address] [place] [address] 03-28-2023 11:39-0500 Mean blood pressure 100 mm[Hg] ANTHONY FERNÁNDEZ MD [address] [place] [address] 03-28-2023 11:24-0500 Heart rate 61 /min ANTHONY FERNÁNDEZ MD [address] [place] [address] 03-28-2023 11:24-0500 Mean blood pressure 97 mm[Hg] ANTHONY FERNÁNDEZ MD [address] [place] [address] 03-28-2023 11:11-0500 Heart rate 62 /min ANTHONY FERNÁNDEZ MD [address] [place] [address] 03-28-2023 10:54-0500 Body temperature 97.16 [degF] ANTHONY FERNÁNDEZ MD [address] [place] [address] 03-28-2023 10:50-0500 Respiratory Rate - Anes 8 br/min ANTHONY FERNÁNDEZ MD [address] [place] [address] 03-28-2023 10:45-0500 Respiratory Rate - Anes 9 br/min ANTHONY FERNÁNDEZ MD [address] [place] [address] 03-28-2023 10:40-0500 Respiratory Rate - Anes 8 br/min ANTHONY FERNÁNDEZ MD [address] [place] [address] 03-28-2023 10:35-0500 Body temperature 97.11 [degF] ANTHONY FERNÁNDEZ MD [address] [place] [address] 03-28-2023 10:30-0500 Body temperature 97.09 [degF] ANTHONY FERNÁNDEZ MD [address] [place] [address] 03-28-2023 10:25-0500 Body temperature 97.05 [degF] ANTHONY FERNÁNDEZ MD [address] [place] [address] 03-28-2023 06:29-0500 Body height 180.3 cm ANTHONY FERNÁNDEZ MD [address] [place] [address] 03-28-2023 06:29-0500 Body weight 153.4 kg ANTHONY FERNÁNDEZ MD [address] [place] [address] 03-28-2023 06:29-0500 Heart rate 46 /min ANTHONY FERNÁNDEZ MD [facility] 01-09-2023 13:02-0400 Diastolic Blood Pressure Non-Invasive 115 1 POLO ROD MD [facility] 01-09-2023 13:02-0400 Heart rate 45 /min POLO ROD MD [facility] 01-09-2023 13:02-0400 Systolic Blood Pressure Non-Invasive 129 1 POLO ROD MD [facility] 01-09-2023 12:57-0400 Diastolic Blood Pressure Non-Invasive 91 1 POLO ROD MD [facility] 01-09-2023 12:57-0400 Heart rate 44 /min POLO ROD MD [facility] 01-09-2023 12:57-0400 Systolic Blood Pressure Non-Invasive 130 1 POLO ROD MD [facility] 01-09-2023 12:52-0400 Diastolic Blood Pressure Non-Invasive 91 1 POLO ROD MD [facility] 01-09-2023 12:52-0400 Heart rate 48 /min POLO ROD MD [facility] 01-09-2023 12:52-0400 Systolic Blood Pressure Non-Invasive 124 1 POLO ROD MD [facility] 01-09-2023 12:45-0400 Respiratory Rate - Anes 23 br/min POLO ROD MD [facility] 01-09-2023 12:40-0400 Respiratory Rate - Anes 20 br/min POLO ROD MD [facility] 01-09-2023 12:35-0400 Respiratory Rate - Anes 22 br/min POLO ROD MD [facility] 01-09-2023 11:29-0400 Body height 185 cm POLO ROD MD [facility] 01-09-2023 11:29-0400 Body weight 152.2 kg POLO ROD MD [facility] 01-09-2023 11:29-0400 Body weight 44.47 kg/m2 POLO ROD MD [facility] 01-09-2023 10:53-0400 Heart rate 51 /min POLO ROD MD [facility] 01-09-2023 10:53-0400 Respiratory rate 17 /min POLO ROD MD [facility] 10-03-2022 10:45-0400 Diastolic Blood Pressure Non-Invasive 87 1 BRENT VILLATORO 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 [facility] 10-03-2022 10:45-0400 Heart rate 43 /min BRENT VILLATORO 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 [facility] 10-03-2022 10:45-0400 Respiratory rate 18 /min BRENT VILLATORO 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 [facility] 10-03-2022 10:45-0400 Systolic Blood Pressure Non-Invasive 169 1 BRENT SHAUNA 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 [facility] 10-03-2022 10:23-0400 Body height 185 cm BRENT VILLATORO 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 [facility] 10-03-2022 10:23-0400 Body weight 161.6 kg BRENT VILLATORO 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 [facility] 10-03-2022 10:23-0400 Body weight 47.22 kg/m2 BRENT VILLATORO 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 [facility] 10-03-2022 10:10-0400 Body height 185 cm BRENT VILLATORO 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 [facility] 10-03-2022 10:10-0400 Body temperature 96.8 [degF] BRENT VILLATORO 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 [facility] 10-03-2022 10:10-0400 Body weight 161.6 kg BRENT VILLATORO 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 [facility] 10-03-2022 10:10-0400 Diastolic Blood Pressure Non-Invasive 75 1 BRENT VILLATORO 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 [facility] 10-03-2022 10:10-0400 Heart rate 45 /min BRENT VILLATORO 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 [facility] 10-03-2022 10:10-0400 Respiratory rate 19 /min BRENT VILLATORO 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 [facility] 10-03-2022 10:10-0400 Systolic Blood Pressure Non-Invasive 129 1 BRENT VILLATORO 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 [facility] 08-01-2022 11:45-0400 Diastolic Blood Pressure Non-Invasive 78 1 POLO ROD MD [facility] 08-01-2022 11:45-0400 Heart rate 56 /min POLO ROD MD [facility] 08-01-2022 11:45-0400 Systolic Blood Pressure Non-Invasive 110 1 POLO ROD MD [facility] 08-01-2022 11:29-0400 Body temperature 96.8 [degF] POLO ROD MD [facility] 08-01-2022 11:29-0400 Heart rate 56 /min POLO ROD MD [facility] 08-01-2022 09:34-0400 Body temperature 97.34 [degF] POLO ROD MD [facility] 08-01-2022 09:34-0400 Diastolic Blood Pressure Non-Invasive 72 1 POLO ROD MD [facility] 08-01-2022 09:34-0400 Heart rate 71 /min POLO ROD MD [facility] 08-01-2022 09:34-0400 Respiratory rate 14 /min POLO ROD MD [facility] 08-01-2022 09:34-0400 Systolic Blood Pressure Non-Invasive 122 1 POLO ROD MD [facility] 08-01-2022 09:29-0400 Body height 180 cm POLO ROD MD [facility] 08-01-2022 09:29-0400 Body weight 145 kg POLO ROD MD [facility] 08-01-2022 09:29-0400 Body weight 44.75 kg/m2 POLO ROD MD [facility] 05-09-2022 12:45-0500 Body temperature 98.4 [degF] [facility] 05-09-2022 12:45-0500 Diastolic blood pressure 71 mm[Hg] [facility] 05-09-2022 12:45-0500 Heart rate 48 /min [facility] 05-09-2022 12:45-0500 Respiratory rate 18 /min [facility] 05-09-2022 12:45-0500 SaO2% (BldA) [Mass fraction] 96 % [facility] 05-09-2022 12:45-0500 Systolic blood pressure 115 mm[Hg] [facility] 05-09-2022 11:09-0500 Body height 180.34 cm [facility] 05-09-2022 11:09-0500 Body mass index (BMI) [Ratio] 48.3 kg/m2 [facility] 05-09-2022 11:09-0500 Body weight 157.2 kg [facility] 02-07-2022 09:45-0500 Body temperature 98.2 [degF] Dr. Gagandeep Barclay Work Phone: [facility] 02-07-2022 09:45-0500 Diastolic blood pressure 79 mm[Hg] Dr. Gagandeep Barclay Work Phone: [facility] 02-07-2022 09:45-0500 Heart rate 58 /min Dr. Gagandeep Barclay Work Phone: [facility] 02-07-2022 09:45-0500 Respiratory rate 18 /min Dr. Gagandeep Barclay Work Phone: [facility] 02-07-2022 09:45-0500 SaO2% (BldA) [Mass fraction] 95 % Dr. Gagandeep Barclay Work Phone: [facility] 02-07-2022 09:45-0500 Systolic blood pressure 117 mm[Hg] Dr. Gagandeep Barclay Work Phone: [facility] 02-07-2022 09:35-0500 Inhaled oxygen flow rate 8 L/min Dr. Gagandeep Barclay Work Phone: [facility] 02-07-2022 07:42-0500 Body height 185.[address] Gagandeep Barclay Work Phone: [facility] Work Phone: 02-07-2022 07:42-0500 Body mass index (BMI) [Ratio] 45.9 kg/m2 Dr. Gagandeep Barclay Work Phone: [facility] 02-07-2022 07:42-0500 Body weight [address] Gagandeep Barclay Work Phone: [facility] 12-28-2021 14:54-0400 Body mass index (BMI) [Ratio] 39 kg/m2 Dr. Gagandeep Barclay Work Phone: [facility] Work Phone: 12-28-2021 14:54-0400 Body weight 134.[address] Gagandeep Barclay Work Phone: [facility] Work Phone: 12-28-2021 14:54-0400 Diastolic blood pressure 83 mm[Hg] Dr. Gagandeep Barclay Work Phone: [facility] Work Phone: 12-28-2021 14:54-0400 Heart rate 56 /min Dr. Gagandeep Barclay Work Phone: [facility] Work Phone: 12-28-2021 14:54-0400 Respiratory rate 16 /min Dr. Gagandeep Barclay Work Phone: [facility] Work Phone: 12-28-2021 14:54-0400 SaO2% (BldA) [Mass fraction] 99 % Dr. Gagandeep Barclay Work Phone: [facility] Work Phone: 12-28-2021 14:54-0400 Systolic blood pressure 130 mm[Hg] Dr. Gagandeep Barclay Work Phone: [facility] Work Phone: 12-20-2021 12:17-0400 Body temperature 98.5 [degF] Dr. Gagandeep Barclay Work Phone: [facility] Work Phone: 12-20-2021 12:17-0400 Diastolic blood pressure 67 mm[Hg] Dr. Gagandeep Barclay Work Phone: [facility] Work Phone: 12-20-2021 12:17-0400 Heart rate 52 /min Dr. Gagandeep Barclay Work Phone: [facility] Work Phone: 12-20-2021 12:17-0400 Respiratory rate 16 /min Dr. Gagandeep Barclay Work Phone: [facility] Work Phone: 12-20-2021 12:17-0400 SaO2% (BldA) [Mass fraction] 100 % Dr. Gagandeep Barclay Work Phone: [facility] Work Phone: 12-20-2021 12:17-0400 Systolic blood pressure 121 mm[Hg] Dr. Gagandeep Barclay Work Phone: [facility] Work Phone: 12-20-2021 09:34-0400 Body mass index (BMI) [Ratio] 38.9 kg/m2 Dr. Gagandeep Barclay Work Phone: [facility] Work Phone: 12-20-2021 09:34-0400 Body weight 133.[address] Gagandeep Barclay Work Phone: [facility] Work Phone: 12-02-2021 15:00-0400 Body temperature 98.7 [degF] Dr. Gagandeep Barclay Work Phone: [facility] Work Phone: 12-02-2021 15:00-0400 Diastolic blood pressure 64 mm[Hg] Dr. Gagandeep Barclay Work Phone: [facility] Work Phone: 12-02-2021 15:00-0400 Heart rate 52 /min Dr. Gagandeep Barclay Work Phone: [facility] Work Phone: 12-02-2021 15:00-0400 Respiratory rate 16 /min Dr. Gagandeep Barclay Work Phone: [facility] Work Phone: 12-02-2021 15:00-0400 SaO2% (BldA) [Mass fraction] 93 % Dr. Gagandeep Barclay Work Phone: [facility] Work Phone: 12-02-2021 15:00-0400 Systolic blood pressure 115 mm[Hg] Dr. Gagandeep Barclay Work Phone: [facility] Work Phone: 12-01-2021 18:19-0400 Body height 185.[address] Gagandeep Barclay Work Phone: [facility] Work Phone: 12-01-2021 18:19-0400 Body mass index (BMI) [Ratio] 46.3 kg/m2 Dr. Gagandeep Barclay Work Phone: [facility] Work Phone: 12-01-2021 18:19-0400 Body weight 159.[address] Gagandeep Barclay Work Phone: [facility] Work Phone: 12-01-2021 17:48-0400 Body temperature 98.8 [degF] Dr. Gagandeep Barclay Work Phone: [facility] Work Phone: 12-01-2021 17:48-0400 Diastolic blood pressure 92 mm[Hg] Dr. Gagandeep Barclay Work Phone: [facility] Work Phone: 12-01-2021 17:48-0400 Heart rate 69 /min Dr. Gagandeep Barclay Work Phone: [facility] Work Phone: 12-01-2021 17:48-0400 Respiratory rate 16 /min Dr. Gagandeep Barclay Work Phone: [facility] Work Phone: 12-01-2021 17:48-0400 SaO2% (BldA) [Mass fraction] 97 % Dr. Gagandeep Barclay Work Phone: [facility] Work Phone: 12-01-2021 17:48-0400 Systolic blood pressure 188 mm[Hg] Dr. Gagandeep Barclay Work Phone: [facility] Work Phone: 12-01-2021 12:09-0400 Body height 185.[address] Gagandeep Barclay Work Phone: [facility] Work Phone: 12-01-2021 12:09-0400 Body mass index (BMI) [Ratio] 47.2 kg/m2 Dr. Gagandeep Barclay Work Phone: [facility] Work Phone: 12-01-2021 12:09-0400 Body weight 162.[address] Gagandeep Barclay Work Phone: [facility] Work Phone: 09-06-2021 11:28-0400 Body temperature 98.4 [degF] [facility] Work Phone: 09-06-2021 11:28-0400 Diastolic blood pressure 80 mm[Hg] [facility] Work Phone: 09-06-2021 11:28-0400 Heart rate 53 /min [facility] Work Phone: 09-06-2021 11:28-0400 Respiratory rate 16 /min [facility] Work Phone: 09-06-2021 11:28-0400 SaO2% (BldA) [Mass fraction] 97 % [facility] Work Phone: 09-06-2021 11:28-0400 Systolic blood pressure 159 mm[Hg] [facility] Work Phone: 09-06-2021 09:59-0400 Body height 180.34 cm [facility] Work Phone: 09-06-2021 09:59-0400 Body mass index (BMI) [Ratio] 50.4 kg/m2 [facility] Work Phone: 09-06-2021 09:59-0400 Body weight 164 kg [facility] Work Phone: 07-19-2021 08:40-0400 Body temperature 97.7 [degF] [facility] Work Phone: 07-19-2021 08:40-0400 Diastolic blood pressure 72 mm[Hg] [facility] Work Phone: 07-19-2021 08:40-0400 Heart rate 64 /min [facility] Work Phone: 07-19-2021 08:40-0400 Respiratory rate 16 /min [facility] Work Phone: 07-19-2021 08:40-0400 SaO2% (BldA) [Mass fraction] 99 % [facility] Work Phone: 07-19-2021 08:40-0400 Systolic blood pressure 111 mm[Hg] [facility] Work Phone: 07-19-2021 07:00-0400 Body mass index (BMI) [Ratio] 50 kg/m2 [facility] Work Phone: 07-19-2021 07:00-0400 Body weight 162.8 kg [facility] Work Phone: 06-07-2021 09:39-0400 Body temperature 99 [degF] [facility] Work Phone: 06-07-2021 09:39-0400 Diastolic blood pressure 65 mm[Hg] [facility] Work Phone: 06-07-2021 09:39-0400 Heart rate 62 /min [facility] Work Phone: 06-07-2021 09:39-0400 Respiratory rate 16 /min [facility] Work Phone: 06-07-2021 09:39-0400 SaO2% (BldA) [Mass fraction] 100 % [facility] Work Phone: 06-07-2021 09:39-0400 Systolic blood pressure 113 mm[Hg] [facility] Work Phone: 06-07-2021 08:12-0400 Body mass index (BMI) [Ratio] 49.6 kg/m2 [facility] Work Phone: 06-07-2021 08:12-0400 Body weight 161.4 kg [facility] Work Phone: Encounters Encounter Date Encounter Type Care Provider Facility Start: 01-10-2025 End: 01-10-2025 Minor Procedure AKSHAT SAWYER 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 [facility] Start: 01-10-2025 End: 01-10-2025 ambulatory AKSHAT SAWYER 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 Facility:[facility] Start: 09-23-2024 End: 09-23-2024 ambulatory GAGANDEEP BARCLAY DO Facility:[facility] [place] Start: 09-23-2024 End: 09-23-2024 Patient encounter procedure GAGANDEEP BARCLAY DO [facility] Start: 09-23-2024 End: 09-23-2024 Well adult monitoring check done GAGANDEEP BARCLAY DO [facility] Start: 08-07-2024 End: 08-11-2024 ambulatory GAGANDEEP BARCLAY DO Facility:A Start: 06-21-2024 End: 06-21-2024 ambulatory BRENT VILLATORO 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 Facility:[facility] Start: 04-18-2024 End: 04-18-2024 ambulatory GAGANDEEP BARCLAY DO Facility[facility] Start: 04-18-2024 End: 04-18-2024 Patient encounter procedure GAGANDEEP BARCLAY DO [facility] Start: 04-15-2024 End: 04-15-2024 ambulatory GAGANDEEP BARCLAY DO Facility:[facility] Start: 04-15-2024 End: 04-15-2024 Patient encounter procedure GAGANDEEP BARCLAY DO [facility] Start: 04-11-2024 End: 04-11-2024 ambulatory GAGANDEEP E BARCLAY DO Facility[place] [place] Start: 04-11-2024 End: 04-11-2024 Patient encounter procedure SAMANTHA RONY 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 [facility] Start: 04-09-2024 End: 04-13-2024 ambulatory GAGANDEEP E BARCLAY DO Facility:[facility] Start: 04-09-2024 End: 04-13-2024 Encounter for general adult medical examination without abnormal findings GAGANDEEP E BARCLAY DO Facility:[facility] Start: 04-09-2024 End: 04-13-2024 Outreach Lab GAGANDEEP E BARCLAY DO [facility] Start: 03-22-2024 End: 03-22-2024 ambulatory GAGANDEEP E BARCLAY DO Facility:[facility] Start: 03-22-2024 End: 03-22-2024 Minor Procedure BEN AUGUST MD [facility] Start: 02-05-2024 End: 02-09-2024 ambulatory GAGANDEEP E BARCLAY DO Facility:[facility] Start: 01-11-2024 ambulatory Valera Barclay Facility: [facility] Start: 01-11-2024 End: 01-11-2024 ambulatory Gagandeep Barclay Facility:[facility] Start: 01-04-2024 ambulatory Efewongbe Oleghe Facili ty:[facility] Start: 01-01-2024 ambulatory [facility] Facility: [facility] Start: 01-01-2024 End: 01-01-2024 ambulatory Gagandeep Barclay Facility:[facility] Start: 12-28-2023 ambulatory Efewongbe Oleghe Facili ty:[facility] Start: 12-19-2023 End: 12-19-2023 ambulatory Gagandeep Barclay Facility:[facility] Start: 12-18-2023 End: 12-18-2023 ambulatory Gagandeep Barclay Facility:[facility] Start: 12-14-2023 ambulatory Gagandeep Barclay Facility: [facility] Start: 12-07-2023 ambulatory Gagandeep Barclay Facility: [facility] Start: 11-30-2023 ambulatory Gagandeep Barclay Facility: [facility] Start: 11-23-2023 ambulatory Gagandeep Barclay Facility: [facility] Start: 11-22-2023 ambulatory GAGANDEEP BARCLAY DO Faci lity:[facility] Start: 11-22-2023 End: 11-22-2023 Patient encounter procedure GAGANDEEP BARCLAY DO [facility] Start: 11-22-2023 End: 11-22-2023 Well adult monitoring check done GAGANDEEP ABRCLAY DO [facility] Start: 11-16-2023 End: 11-18-2023 ambulatory Gagandeep Barclay Facility:[facility] Start: 11-09-2023 ambulatory Gagandeep Barclay Facility: [facility] Start: 11-06-2023 ambulatory GAGANDEEP BARCLAY DO Faci lity:[facility] Start: 10-30-2023 End: 10-30-2023 ambulatory BENEDICT HOYT MD Facility:[facility] Start: 10-30-2023 End: 10-30-2023 Patient encounter procedure BENEDICT HOYT MD [facility] Start: 10-26-2023 ambulatory Gagandeep Barclay Facility: [facility] Start: 10-21-2023 End: 10-21-2023 ambulatory GAGANDEEP BARCLAY DO Facility:[facility] Start: 10-21-2023 End: 10-21-2023 Patient encounter procedure GAGANDEEP BARCLAY DO [facility] Start: 10-20-2023 ambulatory GAGANDEEP BARCLAY DO Faci lity:[facility] Start: 10-20-2023 Encounter for genera l adult medical examination without abnormal findings GAGANDEEP BARCLAY DO Facility:[facility] Start: 10-20-2023 End: 10-24-2023 Outreach Lab GGAANDEEP BARCLAY DO [facility] Start: 09-23-2023 End: 09-23-2023 Emergency department patient visit ZEFERINO COLORADO DO [facility] Start: 09-19-2023 End: 09-23-2023 ambulatory GAGANDEEP E BARCLAY DO Facility[facility] Start: 09-19-2023 End: 09-23-2023 Outreach Lab GAGANDEEP E BARCLAY DO [facility] Start: 05-24-2023 End: 05-24-2023 ambulatory GAGANDEEP E BARCLAY DO Facility[facility] Start: 05-24-2023 End: 05-24-2023 Patient encounter procedure BRENT VILLATORO 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 [facility] Start: 04-19-2023 End: 04-19-2023 ambulatory GAGANDEEP E BARCLAY DO Facility[facility] Start: 04-19-2023 End: 04-19-2023 Patient encounter procedure BRENT VILLATORO 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 [facility] Start: 04-17-2023 End: 04-17-2023 ambulatory GAGANDEEP E BARCLAY DO Facility:[facility] Start: 04-14-2023 End: 04-18-2023 ambulatory GAGANDEEP E BARCLAY DO Facility:[facility] Start: 04-14-2023 End: 04-14-2023 ambulatory GAGANDEEP E BARCLAY DO Facility:[facility] Start: 04-12-2023 End: 04-12-2023 ambulatory GAGANDEEP E BARCLAY DO Facility:[facility] Start: 04-12-2023 End: 04-12-2023 Patient encounter procedure MARS ESQUIVEL 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 [facility] Start: 03-28-2023 End: 03-28-2023 ambulatory AZALIA [place] MD Facility:[facility] Start: 03-28-2023 End: 03-28-2023 SAME DAY STAY ANTHONY FERNÁNDEZ MD [facility] Start: 03-28-2023 End: 03-28-2023 Well adult monitoring check done ANTHONY FERNÁNDEZ MD [facility] Start: 03-24-2023 End: 03-24-2023 ambulatory Gagandeep Barclay Facility:[facility] Start: 03-22-2023 End: 03-22-2023 ambulatory GAGANDEEP E BARCLAY DO Facility[facility] Start: 03-15-2023 End: 03-15-2023 ambulatory GAGANDEEP E BARCLAY DO Facility:[facility] Start: 03-15-2023 End: 03-15-2023 ambulatory GAGANDEEP E BARCLAY DO Facility:[facility] Start: 03-09-2023 End: 03-09-2023 ambulatory GAGANDEEP E BARCLAY DO Facility[facility] Start: 02-15-2023 End: 02-15-2023 ambulatory BRENT VILLATORO 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 Facility:[facility] Start: 02-15-2023 End: 02-15-2023 Patient encounter procedure BRENT VILLATORO 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 [facility] Start: 02-13-2023 End: 02-13-2023 ambulatory GAGANDEEP E BARCLAY DO Facility:[facility] Start: 02-13-2023 End: 02-13-2023 Patient encounter procedure ANTHONY FERNÁNDEZ MD [facility] Start: 01-16-2023 End: 01-16-2023 ambulatory POLO ROD MD Facility[facility] Start: 01-16-2023 End: 01-16-2023 Patient encounter procedure POLO ROD MD [facility] Start: 01-09-2023 End: 01-09-2023 ambulatory POLO ROD MD Facility[facility] Start: 01-09-2023 End: 01-09-2023 SAME DAY STAY POLO ROD MD [facility] Start: 12-21-2022 End: 12-21-2022 ambulatory BRENT VILLATORO 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 Facility:[facility] Start: 11-23-2022 End: 11-23-2022 Patient encounter procedure BRENT VILLATORO 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 [facility] Start: 10-03-2022 End: 10-03-2022 SAME DAY STAY BRENT VILLATORO 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 [facility] Start: 08-24-2022 End: 08-24-2022 Patient encounter procedure BRENT VILLATORO 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 [facility] Start: 08-01-2022 End: 08-01-2022 SAME DAY STAY POLO ROD MD [facility] Start: 07-20-2022 End: 07-20-2022 Patient encounter procedure BRENT VILLATORO 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 [facility] Start: 05-23-2022 End: 05-23-2022 Patient encounter procedure GAGANDEEP BARCLAY DO [facility] Start: 05-09-2022 End: 05-09-2022 [facility] Start: 05-09-2022 End: 05-09-2022 ambulatory [facility] Work Phone: Start: 02-07-2022 End: 02-07-2022 Admission to same day surgery center Dr. Gagandeep Barclay [facility] Start: 02-07-2022 End: 02-07-[address] Gagandeep Barclay Work Phone: [facility] Work Phone: Start: 12-28-2021 End: 12-28-[address] Gagandeep Barclay Work Phone: [facility] Start: 12-20-2021 End: 12-20-2021 Admission to same day surgery center Dr. Gagandeep Barclay Work Phone: [facility] Start: 12-07-2021 End: 12-07-2021 Patient encounter procedure GAGANDEEP BARCLAY DO [facility] Start: 12-02-2021 Non-patient / Non-visit Dr. Charlie Barclay Work Phone: [facility] Start: 12-01-2021 End: 12-02-2021 Evaluation and management of inpatient Dr. Gagandeep Barclay Work Phone: [facility]-Medical Surgical 3 Start: 12-01-2021 End: 12-02-[address] Gagandeep Barclay Work Phone: [facility] Work Phone: Start: 12-01-2021 Non-patient / Non-visit Dr. Charlie Barclay Work Phone: [facility] Start: 11-23-[address] Gagandeep Barclay Work Phone: [facility]-Physical Therapy Start: 09-06-2021 End: 09-06-2021 Admission to same day surgery center [facility] Start: 07-19-2021 End: 07-19-2021 Admission to same day surgery [facility] Start: 06-07-2021 End: 06-07-2021 Admission to same day surgery [facility] Start: 04-07-2014 End: 04-07-2014 Admission to establishment Georgia Salter Work Phone: [facility] Start: 04-07-2014 ambulatory Georgia Gonzales Work Phone: PreAdmission Testing Procedures Date Procedure Procedure Detail Performing Clinician Start: 01-10-2025 PM Inj Spine L/S [facility] SN 1 AKSHAT SAWYER 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 Comment on above: auto-populated from documented surgical case Start: 06-21-2024 PM Inj Spine L/S Wit h Imaging SN 1 GAGANDEEP BARCLAY DO Comment on above: auto-populated from documented surgical case Start: 06-21-2024 PM Inj Spine L/S Wit h Imaging SN 2 AKSHAT SAWYER 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 Comment on above: auto-populated from documented surgical [...] Bursa Inj/Aspiration (AOH) SN 4 AKSHAT SAWYER 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 Comment on above: auto-populated from documented surgical case Start: 03-28-2023 Implantation of neurostimulator device BRENT SHAUNA 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 Start: 10-03-2022 PM Inj Spine L/S Wit [facility] Imaging SN 1 BRENT SHAUNA 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 Comment on above: auto-populated from documented surgical [...] Wit h Imaging SN 5 AKSHAT SAUCEDAON 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 Comment on above: auto-populated from documented surgical case Start: 08-01-2022 PM Inj Spine L/S Wit h Imaging SN 1 POLO ROD MD Comment on above: auto-populated from documented surgical case Start: 08-01-2022 PM Inj Spine L/S Wit [facility] Imaging SN 2 BRENT SHAUNA 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 Comment on above: auto-populated from documented surgical [...] Wit h Imaging SN 6 AKSHAT SAWYER 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 Comment on above: auto-populated from documented surgical [...] block/injection prone pos ANESTH N BLOCK/INJ PRONE [facility] Start: 05-09-2022 Njx dx/ther sbst intrlmnr lmbr/sac w/img gdn NJX INTERLAMINAR LMBR/SAC [facility] Start: 05-09-2022 Injection of spinal epidural space [facility] Start: 05-09-2022 Injection using fluoroscopic guidance [facility] Start: 05-09-2022 Prothrombin time [facility] Start: 05-09-2022 Patient discharge [facility] Start: 02-07-2022 Anes dx/ther nerve block/injection prone pos ANESTH N BLOCK/INJ PRONE [facility] Start: 02-07-2022 Njx dx/ther sbst intrlmnr lmbr/sac w/img gdn NJX INTERLAMINAR LMBR/SAC [facility] Start: 02-07-2022 Injection of spinal epidural space [facility] Work Phone: Start: 02-07-2022 Injection using fluoroscopic guidance [facility] Work Phone: Start: 02-07-2022 Patient discharge [facility] Start: 12-20-2021 Anes dx/ther nerve block/injection prone pos ANESTH N BLOCK/INJ PRONE [facility] Work Phone: Start: 12-20-2021 Njx dx/ther sbst intrlmnr lmbr/sac w/img gdn NJX INTERLAMINAR LMBR/SAC [facility] Work Phone: Start: 12-20-2021 Patient discharge [facility] Work Phone: Start: 12-03-2021 [facility] Work Phone: Start: 12-02-2021 Patient discharge [facility] Work Phone: Start: 12-02-2021 Care planning and problem solving actions [facility] Work Phone: Start: 12-01-2021 Assessment of risk of venous thromboembolism [facility] Work Phone: Start: 12-01-2021 Insertion of catheter into peripheral vein [facility] Work Phone: Start: 12-01-2021 Providing care according to standard [facility] Work Phone: Start: 12-01-2021 Referral to occupational therapist [facility] Work Phone: Start: 12-01-2021 Referral to service [facility] Work Phone: Start: 12-01-2021 [facility] Work Phone: Start: 12-01-2021 Following clinical pathway protocol [facility] Work Phone: Start: 12-01-2021 Verification routine [facility] Work Phone: Start: 12-01-2021 Admission procedure [facility] Work Phone: Start: 09-06-2021 Anes dx/ther nerve block/injection prone pos ANESTH N BLOCK/INJ PRONE [facility] Work Phone: Start: 09-06-2021 Dstr nrolytc agnt parverteb fct sngl lmbr/sacral DESTROY LUMB/SAC FACET JNT [facility] Work Phone: Start: 06-20-2022 Fluoroscopic guidance O.R. Fluoro for C-Arm [facility] Work Phone: Start: 09-06-2021 X-ray of lumbar spine, two or three views Lumbar Spine 2 or 3 Views [facility] Work Phone: Start: 09-06-2021 Patient discharge [facility] Work Phone: Start: 07-19-2021 Anes dx/ther nerve block/injection prone pos ANESTH N BLOCK/INJ PRONE [facility] Work Phone: Start: 07-19-2021 Dstr nrolytc agnt parverteb fct sngl lmbr/sacral DESTROY LUMB/SAC FACET JNT [facility] Work Phone: Start: 07-19-2021 Patient discharge [facility] Work Phone: Start: 06-07-2021 Njx dx/ther sbst intrlmnr lmbr/sac w/img gdn NJX INTERLAMINAR LMBR/SAC [facility] Work Phone: Start: 06-07-2021 Patient discharge [facility] Work Phone: Start: 11-18-2020 Influenza vaccination INFLUENZA (#1) [facility] Start: 06-29-2014 PROSTATE CANCER SCREENING DISCUSSION PROSTATE CANCER SCREENING DISCUSSION [facility] Start: 03-28-2011 Screening for malignant neoplasm of colon [facility] Start: 06-29-2009 Screening for malignant neoplasm of colon [facility] Start: 06-29-2009 SHINGRIX VACCINE (1 of 2) SHINGRIX VACCINE (1 of 2) [facility] Start: 06-29-2004 DIABETES SCREEN DIABETES SCREEN [facility] Start: 06-29-1994 LIPID SCREEN LIPID SCREEN [facility] Start: 06-29-1978 Urine microalbumin profile DTAP,TDAP,TD (1 - Tdap) [facility] Start: 06-29-1977 HEPATITIS C SCREENING HEPATITIS C SCREENING [facility] Start: 06-29-1977 HIV SCREENING HIV SCREENING [facility] Start: 1971 Adult depression screening assessment DEPRESSION SCREENING [facility] Start: 1971 COVID-19 VACCINE (1) [facility] Alanine aminotransfe rase [Enzymatic activity/volume] in Serum or Plasma [facility] Work Phone: Albumin [Mass/volume ] in Serum or Plasma [facility] Work Phone: Alkaline phosphatase [Enzymatic activity/volume] in Serum or Plasma [facility] Work Phone: Anion gap measurement [facility] Work Phone: Aspartate aminotrans ferase [Enzymatic activity/volume] in Serum or Plasma [facility] Work Phone: Bilirubin, total measurement [facility] Work Phone: BUN/Creatinine ratio [facility] Work Phone: Calcium [Mass/volume ] in Serum or Plasma [facility] Work Phone: Carbon dioxide, tota l [Moles/volume] in Serum or Plasma [facility] Work Phone: Chloride [Moles/volu me] in Serum or Plasma [facility] Work Phone: Creatinine [Moles/vo lume] in Serum or Plasma [facility] Work Phone: Glucose [Mass/volume ] in Serum or Plasma [facility] Work Phone: Hematocrit [Volume Fraction] of Blood [facility] Work Phone: Hemoglobin [Mass/vol ume] in Blood [facility] Work Phone: INR in Blood by Coag ulation assay [facility] Leukocytes [#/volume ] in Blood [facility] Work Phone: Mean corpuscular hem oglobin concentration determination [facility] Work Phone: Mean corpuscular hem oglobin determination [facility] Work Phone: Measurement of renal function [facility] Work Phone: Neutrophil count [facility] Work Phone: Neutrophil percent differential count [facility] Work Phone: Patient referral [facility] Work Phone: Platelets [#/volume] in Blood [facility] Work Phone: Potassium [Moles/vol ume] in Serum or Plasma [facility] Work Phone: Red blood cell count [facility] Work Phone: Red cell distributio n width determination [facility] Work Phone: Sodium [Moles/volume ] in Serum or Plasma [facility] Work Phone: Total protein measurement [facility] Work Phone: Urea nitrogen [Mass/ volume] in Serum or Plasma [facility] Work Phone: Immunizations Immunization Date Immunization Notes Care Provider Lilly patterson 04-09-2024 influenza, injectabl e, quadrivalent, contains preservative; Translations: [Fluarix PF Prefilled Syringe ] SAMANTHA URIBE 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 [facility] 03-09-2023 tetanus toxoid, redu lupis diphtheria toxoid, and acellular pertussis vaccine, adsorbed ANTHONY FERNÁNDEZ MD [facility] Comment on above: Early/Late Reason: E jay/Late Reason: Task Rescheduled 02-28-2023 influenza, injectabl e, quadrivalent, contains preservative; Translations: [Fluarix PF Quadrivalent ] ANTHONY FERNÁNDEZ MD [facility] 02-28-2023 tetanus toxoid, redu lupis diphtheria toxoid, and acellular pertussis vaccine, adsorbed; Translations: [Boostrix (Tdap)] MARS ESQUIVEL 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 [facility] 05-24-2022 COVID-19, mRNA, LNP- S, bivalent booster, PF, 30 mcg/0.3 mL dose; Translations: [[employer] COVID-19 (12y+) Bivalent Booster Vaccine PF] BRENT VILLATORO 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 [facility] 05-24-2022 SARSCoV2 mRNA(zusfttequzu57q+)biv al vac; Translations: [Pfizer-BioNTech COVID-19 (12y+) Bivalent Booster Vaccine PF] ANTHONY FERNÁNDEZ MD [facility] 05-24-2022 Pneumococcal conjuga te PCV20, polysaccharide [id number] conjugate, adjuvant, PF; Translations: [Prevnar 20] BRENT VILLATORO 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 [facility] 02-28-2022 influenza, injectabl e, quadrivalent, contains preservative; Translations: [Fluarix PF Quadrivalent ] GAGANDEEP BARCLAY DO [facility] 02-28-2022 zoster vaccine recombinant; Translations: [Shingrix] GAGANDEEP Kast DO [facility] 06-21-2021 zoster vaccine recombinant; Translations: [Shingrix] GAGANDEEP BARCLAY DO [facility] 03-24-2021 [facility] 03-22-2021 COVID-19, mRNA, LNP- S, PF, 100 mcg or 50 mcg dose; Translations: [Moderna COVID-19 Vaccine] GAGANDEEP BARCLAY DO [facility] 08-13-2020 SARS-CoV-2 (COVID-19 ) Ad26 vaccine, recombinant GAGANDEEP BARCLAY DO [facility] Comment on above: Result Comment: 2021: [id number] 11-22-2019 influenza, injectabl e, quadrivalent, preservative free; Translations: [Fluarix PF Quadrivalent ] GAGANDEEP BARCLAY DO [facility] 02-18-2019 influenza, injectabl e, quadrivalent, preservative free; Translations: [Fluarix PF Quadrivalent ] GAGANDEEP BARCLAY DO [facility] 02-26-2018 influenza virus vacc ine, unspecified formulation GAGANDEEP BARCLAY DO [facility] 12-18-2017 Influenza virus vaccine [facility] 12-18-2017 pneumococcal conjuga te vaccine, 13 valent [facility] 12-21-2016 influenza virus vacc ine, unspecified formulation GAGANDEEP BARCLAY DO [facility] 12-21-2016 pneumococcal polysaccharide vaccine, 23 valent GAGANDEEP DENY DO [facility] 02-09-2015 influenza virus vacc ine, unspecified formulation GAGANDEEP BARCLAY DO [facility] 12-13-2012 influenza virus vacc ine, unspecified formulation GAGANDEEP BARCLAY DO [facility] 06-18-2012 tetanus toxoid, redu lupis diphtheria toxoid, and acellular pertussis vaccine, adsorbed GAGANDEEP BARCLAY DO [facility] Payers Date Payer Category Payer Medicare [id number] 2024 Medicare [id number] 2023 Private Health Insurance [id number] 2023 Self-pay [id number] 2021 Unknown [id number] 2015 Unknown [id number] 2011 Unknown MMO ZZZMMO SUPER MED PLUS [id number] 2011-2018 PPO [id number]. [id number] 2001 Self-pay SELF PAY HSP/MED ICAL SELF PAY [id number] 2001-2015 SELF PAY Indemnity [id number]. [id number] 1959 Unknown [id number] 2.16.840.1.742284.3.579.2. 1959 Unknown [id number] 2.16.840.1.283620.3.579.2 1959 Unknown [id number] 2.16.840.1.603907.3.579.2 1959 Unknown [id number] 2.16.840.1.080887.3.579.2 1959 Unknown [id number] 2.16.840.1.070447.3.579.2 1959 Unknown [id number] 2.16.840.1.199950.3.579.2 1959 Unknown [id number] 2.16.840.1.824466.3.579.2 1959 Unknown [id number] 2.16.840.1.282045.3.579.2 1959 Unknown [id number] 2.16.840.1.757940.3.579.2 1959 Unknown [id number] 2.16.840.1.852230.3.579.2. 1959 Unknown [id number] 2.16.840.1.256914.3.579.2. 1959 Unknown [id number] 2.16.840.1.213076.3.579.2. 1959 Unknown [id number] 2.16.840.1.397730.3.579.2. 1959 Unknown [id number] 2.16.840.1.932258.3.579.2. 1959 Unknown [id number] 2.16.840.1.621397.3.579.2 1959 Unknown [id number] 2.16.840.1.772352.3.579.2. 1959 Unknown [id number] 2.16.840.1.163439.3.579.2 1959 Unknown [id number] 2.16.840.1.741980.3.579.2. 1959 Unknown [id number] 2.16.840.1.504406.3.579.2 1959 Unknown [id number] 2.16.840.1.862505.3.579.2. 1959 Unknown [id number] 2.16.840.1.229419.3.579.2. 1959 Unknown [id number] 2.16.840.1.437045.3.579.2. 1959 Unknown [id number] 2.16.840.1.543176.3.579.2. 1959 Unknown [id number] 2.16.840.1.734903.3.579.2. 1959 Unknown [id number] 2.16.840.1.298668.3.579.2. 1959 Unknown [id number] 2.16.840.1.841306.3.579.2. 627 1959 Unknown [id number] 2.16.840.1.768301.3.579.2. 1959 Unknown [id number] 2.16.840.1.453520.3.579.2. 1959 Unknown [id number] 2.16.840.1.427772.3.579.2. 1959 Unknown [id number] 2.840.1.585057.3.579.2. 1959 Unknown [id number] 2.840.1.761620.3.579.2. 1959 Unknown [id number] 2.840.1.617613.3.579.2. 1959 Unknown [id number] 2.840.1.258177.3.579.2. 1959 Unknown [id number] 2.840.1.896061.3.579.2. 1959 Unknown [id number] 2.840.1.069950.3.579.2. 1959 Unknown [id number] 2.840.1.990005.3.579.2. 627 Unknown [id number] 2840.1.494987.3.579.2. 462 Unknown [id number] 2.840.1.925664.3.579.2. 462 Unknown [id number] 2.16840.1.848275.3.579.2. 462 Unknown [id number] 2.16840.1.131409.3.579.2. 462 Unknown [id number] 2.16.840.1.087893.3.579.2. 462 Unknown [id number] 2.16840.1.718771.3.579.2. 462 Unknown [id number] 2.16.840.1.426164.3.579.2. 462 Unknown [id number] 2.16.840.1.708528.3.579.2. 462 Unknown [id number] 2.16.840.1.209767.3.579.2. 462 Unknown [id number] 2.16.840.1.798355.3.579.2. 462 Unknown [id number] 2.16.840.1.954393.3.579.2. 462 Unknown [id number] 2.16.840.1.407125.3.579.2. 462 Unknown [id number] 2.16.840.1.121891.3.579.2. 462 Unknown [id number] 2.16.840.1.864625.3.579.2. 462 Unknown [id number] 2.16840.1.178661.3.579.2. 462 Unknown [id number] 2.16.840.1.813350.3.579.2. 462 Unknown [id number] 2.16840.1.664616.3.579.2. 462 Social History Date Type Detail Facility Start: 05-07-2011 Tobacco smoking stat [facility] Current every day smoker [facility] History of tobacco use Cigarette Smoker [facility] Work Phone: Start: 05-07-2011 Cigarettes smoked current (pack per day) - Reported [facility] Start: 05-07-2011 Alcohol intake Current non-dr delilah of alcohol (finding) [facility] Start: 1960 Sex Assigned At Not on file [facility] Start: 06-04-2021 End: 12-28-2021 Tobacco smoking status NHIS Unknown if ever smoked [facility] Start: 09-15-2020 None [facility] Start: 03-03-2019 Spouse/ Signif icant Other [facility] Start: 09-15-2020 Non-smoker [facility] Start: 1960 Sex Assigned At Male A [facility] Start: 09-26-2018 Tobacco smoking status Light t obacco smoker (finding) [facility] Comment on above: Tobacco/smoke exposu re - daily Start: 03-15-2023 End: 04-14-2023 Tobacco smoking status Heavy tobacco smoker (finding) [facility] Comment on above: Tobacco/smoke exposu re - daily Sexual Orientation [facility] Start: 09-12-2018 Sex Male (finding) [facility] Start: 01-10-2025 Not applicable (qualifier value) [facility] Medical Equipment Procedure Code Equipment Code Equipment [...] Assessment Result Facility 01-10-2025 Functional Status Awake [facility] 01-10-2025 Functional Status [facility] 03-22-2024 Functional Status Less than 8 hours [facility] 09-23-2023 Functional Status Ambulation in Figu[place]a, Ambulation in Room [facility] 03-28-[address] [facility] 03-28-2023 Functional Status ice chips and sips take n [facility] 03-28-[address] [facility] 01-09-2023 Functional Status Up with assistance [facility] 01-09-2023 Functional Status Maintained [facility] 10-03-2022 Functional Status Maintained [facility] 08-01-2022 Functional Status Awake [facility] 08-01-2022 Functional Status Less than 8 hours [facility] 12-02-2021 Functional status Ambulates [facility] Work Phone: Mental Status Date Assessment Result Facility 01-10-2025 Mental Status Orientation Oriented x 4 [facility] 01-10-2025 Mental Status [facility] 03-22-2024 Mental Status Orientation Asse ssment Oriented x 4 [facility] 09-23-2023 Mental Status Oriented x 4 [facility] 03-28-2023 Mental Status Orientation Oriented x 4 [facility] 03-28-2023 Mental Status [facility] 03-28-2023 Mental Status [facility] 01-09-2023 Mental Status Oriented x 4 [facility] 08-01-2022 Mental Status Oriented x 4 [facility] 08-01-2022 Mental Status [facility] 05-09-2022 Cognitive function Voice/Name;Touch/Shaki ng [facility] Work Phone: 02-07-2022 Cognitive function Voice/Name [facility] Work Phone: 02-07-2022 Cognitive function Patient Orien tation Person;Place;Time [facility] Work Phone: 12-20-2021 Cognitive function Voice/Name [facility] Work Phone: 12-02-2021 Cognitive function Level Of Cons ciousness Awake;Alert;Appropriate;Follow s Commands [facility] Work Phone: 12-01-2021 Cognitive function Appropriate;Cooperativ e [facility] Work Phone: 09-06-2021 Cognitive function Voice/Name;Touch/Shaki ng [facility] Work Phone: 07-19-2021 Cognitive function Voice/Name [facility] Work Phone: 06-07-2021 Cognitive function Voice/Name [facility] Work Phone: Clinical Notes 04-07-2014 to 01-10-2025 Note Date & Type Note Facility 01-10-2025 Note Exam Date Time Procedure Performing Provider Status 01/10/25 2:56 PM XR Fluoro Guide for Therapy Injection Modified [id number] ORIGINAL Images acquired, not reported on this accession number. [facility]10-[facility] Hospital Discharge instructions Patient Education 01/10/2025 12:17:25 [...] the bandage (dressing) after 24 hours. Take ksbq-bfv-csyynka and prescription medicines only as told by your health care provider. Keep all follow-up visits as told by your health care provider. This is important. Contact a health care provider if: You have a fever. You continue to have pain and soreness around the injection site, even after taking ksyr-yvj-kanutyv pain medicine. You have severe, sudden, or [...] 06/21/2011 Document Revised: 02/16/2018 Document Reviewed: 06/21/2016 anchor.travel Patient Education 2020 [email or web address]. Follow Up Care 12/23/2024 07:45:29 With:BEN AUGUST MD Address: [address] [place] [address] [place] [address] [phone] When: Unknown Comments:Follow-up as scheduled [facility] 10-24-2025 Summary of episode note Discharge Instructions Thank you for allowing [facility] to assist you with your healthcare needs. The following is importantdischarge information regarding your hospital visit. Your Care Team GAGANDEEP BARCLAY DO Your Diagnosis Chronic radicular lumbar pain Lumbar postlaminectomy syndrome What to do next Scheduled Follow-Up Appointments Appointment Type When With Where Contact Information StatusPM OV 02/05/2025 12:30 PM SAMANTHA CLAUDIO APRN-SERA [facility] PM [address] [place] [phone]- [phone] Confirmed Follow Up Appointments Follow Up with BEN AUGUST MD Where:[facility] [address] [place] [address] [phone] Additional Information: Follow-up as scheduled The Following [...] the bandage (dressing) after 24 hours. Take razr-bsz-uzgyjrn and prescription medicines only as told by your health care provider. Keep all follow-up visits as told by your health care provider. This is important. Contact a health care provider if: You have a fever. You continue to have pain and soreness around the injection site, even after taking xvck-htk-qtatqfh pain medicine. You have severe, sudden, or [...] to receive it can visit one of [facility] vaccine clinics. There are many vaccine clinic locations within the [facility]. For locations and available times, please visit [email or web address].gov/. It is important to note that some COVID mobile vaccine clinics are held outdoors and may be canceled in rainy or stormy conditions. To learn more about pediatric vaccinations (ages 5-11), we invite you to visit the [facility] webpage. https://www.[email or web address].org/pages/0642-Ovmjb-Tkaerelejwa-Ixbhnlsgeo-Yyefg-Qzs stions.htmlTo learn more about the COVID-19 vaccine, we invite you to visit the CDC website for a list of frequently asked questions.https://www.cdc.gov/coronavirus/2019-ncov/vaccines/faq.html [facility] Patient Portal Access Instructions: Stay connected with your healthcare team and access your personal medical information anytime with the [facility] Patient Portal. Please follow the directions below to create your [employer] account: 1.Access the email account you provided upon registration to the hospital/physician office.2.Look for an invitation email from [facility].3.Open the email and access the invitation link: AcceptInvitation to [facility].4.Fill in the required perez to create your account. To access your account, visit [employer] MedicalOneChart or scan the QR code above. Click the [employer] Access Patient Portal and then log in [...] who you will allowto register on the [facility] Patient Portal for access to your information. You can also access the [facility] Patient Portal on the sfilatinowhere ashley. Simply click on Patient Portal and then log into your account. If you would like to receive a full copy of your medical records, please contact the [facility] Medical Records Department by calling [phone], Monday through Monday between 8 a.m. and [...] Call your local pharmacy or go to [email or web address] Rebel/[email or web address] to find one close to you.3.Make use of household items: Use cat litter or old coffee grounds to dispose medications if other options arenot available. Mix your drugs with these household products, seal them in an airtight container andthrow it into the garbage. Call [facility]: [phone] to be sure your drugs can be [...] aware that I should contact my doctor. Patient/Broadcast Meteorologist Signature: Date/Time: Relationship to Patient: Witness Name/Signature: Date/Time: [facility]01-03-2025 Hospital Discharge instructions Patient Education 03/22/2024 12:00:50 [...] the bandage (dressing) after 24 hours. Take icbo-ojh-dfcmfvf and prescription medicines only as told by your health care provider. Keep all follow-up visits as told by your health care provider. This is important. Contact a health care provider if: You have a fever. You continue to have pain and soreness around the injection site, even after taking asvk-rib-scceqoz pain medicine. You have severe, sudden, or [...] 06/21/2011 Document Revised: 02/16/2018 Document Reviewed: 06/21/2016 [employer].travel Patient Education 2020 [employer]. Follow Up Care 03/11/2024 09:59:35 With:BEN AUGUST MD Address: [address] [place] [address] [phone] When: Unknown Comments:Restart coumadin today. Follow up in office as scheduled. [facility] 01-03-2025 Note* Exam Date Time Procedure Performing Provider Status 03/22/24 1:53 PM XR Fluoro Guide for Therapy Injection Modified [id number] ORIGINAL Images acquired, not reported on this accession number. [facility]01-03-2025 Summary of episode note Discharge Instructions Thank you for allowing [facility] to assist you with your healthcare needs. The following is importantdischarge information regarding your hospital visit. 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 PM [address] [facility] [address] [phone]- [phone] Confirmed Follow Up Appointments Follow Up with BEN AUGUST MD Where:[address] [place] [address] [phone] Additional Information: Restart coumadin today. Follow up [...] the bandage (dressing) after 24 hours. Take dalq-okr-gcivbjt and prescription medicines only as told by your health care provider. Keep all follow-up visits as told by your health care provider. This is important. Contact a health care provider if: You have a fever. You continue to have pain and soreness around the injection site, even after taking rryr-iju-hlukwfb pain medicine. You have severe, sudden, or [...] 06/21/2011 Document Revised: 02/16/2018 Document Reviewed: 06/21/2016 [employer] Patient Education 2020 [employer] Inc. Additional Information VACCINATE! IT SAVES LIVES! Members of the community who have not yet received the COVID-19 vaccine and would like to receive it can visit one of [facility] vaccine clinics. There are many vaccine clinic locations within the [facility]. For locations and available times, please visit https://[email or web address].[place].gov/. It is important to note that some COVID mobile vaccine clinics are held outdoors and may be canceled in rainy or stormy conditions. To learn more about pediatric vaccinations (ages 5-11), we invite you to visit the [facility] webpage. https://www.[facility].org/pages/0402-Ajpot-Ugtagnbxwda-Pbfllsxscc-Jyudy-Ogr stions.htmlTo learn more about the COVID-19 vaccine, we invite you to visit the CDC website for a list of frequently asked questions.https://www.cdc.gov/coronavirus/2019-ncov/vaccines/faq.html [facility] Patient Portal Access Instructions: Stay connected with your healthcare team and access your personal medical information anytime with the [facility] Patient Portal. Please follow the directions below to create your [facility] account: 1.Access the email account you provided upon registration to the hospital/physician office.2.Look for an invitation email from [facility].3.Open the email and access the invitation link: AcceptInvitation to [facility].4.Fill in the required perez to create your account. To access your account, visit [employer]/[facility] MedicalOneChart. Click the blue button labeled Access Patient Portal and then log in with the username and password that you created in the steps above. You will be able to view your test results, lab results, a summary of your visits, upcoming appointments and more. There is also a convenient messaging option where you can send secure messages to your p [employer]vider. In addition, you will have the ability to download any documents or summaries to your computer and/or send the information securely to a physician. Remember that your healthcare information is confidential, so carefully consider who you will allowto register on the [facility] Patient Portal for access to your information. You can also access the [facility] Patient Portal on the [facility] ashley. Simply click on Patient Portal and then log into your account. If you would like to receive a full copy of your medical records, please contact the [facility] Medical Records Department by calling [phone], Monday through Monday between 8 a.m. and [...] Call your local pharmacy or go to [email or web address].Code Rebel/[email or web address] to find one close to you.3.Make use of household items: Use cat litter or old coffee grounds to dispose medications if other options arenot available. Mix your drugs with these household products, seal them in an airtight container andthrow it into the garbage. Call [facility]: [phone] to be sure your drugs can be [...] aware that I should contact my doctor. Patient/Broadcast Meteorologist Signature: Date/Time: Relationship to Patient: Witness Name/Signature: Date/Time: [facility]08-12-[facility] Note* Exam Date Time Procedure Performing Provider Status 10/30/23 3:58 PM VL Venous US/Doppler One Leg (for DVT). Auth (Verified) [facility] 08-12-2024 Note* Exam Date Time Procedure Performing Provider Status 10/30/23 3:00 PM VL Arterial Dopplers Both Legs Rest/PVR- Auth (Verified) [facility] 07-06-2024 Hospital Discharge instructions Patient Education 09/23/2023 [...] a problem: Bleeding that soaks the dressing Waggoner fluid weeping from the wound Increased drainage [...] increased fatigue, or a loss of appetite [phone] [employer] [place] [address], [place] [address]. All rights reserved. This information is not intended as a substitute for professional medical care. Always follow yourhealthcare professional's instructions. Follow Up Care 09/23/2023 15:45:10 With:[facility] Address: [address] [place] [phone]- When:2-4 days With:GAGANDEEP BARCLAY DO Address: [address] [place] [address] [phone] When:2-4 days [facility] 07-06-2024 Note Discharge Instructions Thank you for allowing [facility] to assist you with your healthcare needs. The following is importantdischarge information regarding your hospital visit. What to Do Next Instructions from Your Care Team No qualifying data available. Post Acute Orders No qualifying data available. You Need to Schedule the Following Appointments Follow Up with [facility] When:Within 2-4 days Where:[address] [place] [phone]- Follow Up with GAGANDEEP BARCLAY DO When:Within 2-4 days Where:[address] [place] [address]- [phone] Allergies Lyrica Hives Red Dye Hives penicillin [...] a problem: Bleeding that soaks the dressing Waggoner fluid weeping from the wound Increased drainage [...] increased fatigue, or a loss of appetite [phone] [employer]. [address] [place] [address]. All rights reserved. This information is not intended as a substitute for professional medical care. Always follow yourhealthcare professional's instructions. Additional Information VACCINATE! IT SAVES LIVES! Members of the community who have not yet received the COVID-19 vaccine and would like to receive it can visit one of [facility] vaccine clinics. There are many vaccine clinic locations within the [facility]. For locations and available times, please visit [email or web address] It is important to note that some COVID mobile vaccine clinics are held outdoors and may be canceled in rainy or stormy conditions. To learn more about pediatric vaccinations (ages 5-11), we invite you to visit the [facility] webpage. https://www.[email or web address]/pages/[email or web address]-Wmrgm-Czlghsqkriz-Vahaloyqwy-Dlzmr-Ost stions.htmlTo learn more about the COVID-19 vaccine, we invite you to visit the CDC website for a list of frequently asked questions. https://www.cdc.gov/coronavirus/2019-ncov/vaccines/faq.html [facility] Patient Portal Access Instructions: Stay connected with your healthcare team and access your personal medical information anytime with the [facility] Patient Portal. If you would like a full copy of your medical records please contact the [facility] Medical Records Department Monday through Monday between 8a.m. and 4:30p.m. Please follow the directions below to access the portal: 1.Access the email account you provided upon registration to the [facility].2.Look for an invitation email from [facility].3.Open the email and access the invitation link: Accept Invitation to [facility]4.Fill in the required perez to create your account. Sign into [email or web address] with your username and password that you [...] you will allow to register on the [facility] Patient Portal for access to your information. You can also access the [facility] Patient Portal on the Fashionspace. Simply click on Health Records under Montage Talent and then click on the [facility] logo. HOW TO SAFELY DISPOSE OF PRESCRIPTION [...] Call your local pharmacy or go to [email or web address] to find one close to you.3.Make use of household items: Use cat litter or old coffee grounds to dispose medications if other options arenot available. Mix your drugs with these household products, seal them in an airtight container andthrow it into the garbage. Call [facility]: [phone] to be sure your drugs can be [...] aware that I should contact my doctor. Patient/Broadcast Meteorologist Signature: Date/Time: Relationship to Patient: Witness Name/Signature: Date/Time: [facility]01-29-2024 Note. MICRO - Microbiology PROCEDURE: Culture Wound [...] Locations *1: This test was performed at: [address], [facility] , [facility] ([place])03-28-2023 Hospital Discharge instructions Patient Education 03/28/2023 12:32:44 1- [facility] General Discharge Guidelines (12/02/2022) (CUSTOM) [facility] SAME DAY SURGERY DISCHARGE INSTRUCTIONS PLEASE FOLLOW [...] instructions. Follow Up Care 02/24/2023 13:04:34 With:MARS ESQUIVEL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 DIRECTOR, Neurosurgery Address: [address] [place] [address] [place] [address]- [phone] When:04/12/2023 13:15:00 [facility] 01-09-2024 Anesthesiology Consult note Patient: ARELI [...] EKATERINA BLUE MD on 03/28/2023 01:05 PM [facility] [id number] Summary of episode note Discharge Instructions Thank [...] Op 04/12/2023 01:15 PM EST Neurosurgery [address] [facility] [address] [place] [phone] ACC POC Established Patient 04/19/2023 11:30 AM EST [facility] [phone] PM OV 04/19/2023 12:00 PM EST BRENT VILLATORO APRN-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 DIRECTOR [facility] OV 09/19/2023 11:00 AM EDGAGANDEEP MONTALVONew [facility] [place] [address] [place] [address] Follow Up Appointments Follow Up with MARS ESQUIVEL, Neurosurgery When 04/12/2023 01:15 PM EST Where: [address] [facility] [address] [place] [address]- [phone] The Following Activity and Diet Have Been [...] a day Duration: 10 Days Pickup at [id number] Unchanged acetaminophen-hydrocodone (acetaminophen-hydrocodone 325 mg-10 mg oral [...] Sleep / Insomnia Pharmacy Information [id number]: [address] [place], [place] [id number] [phone] What How Much When Comments Stop Taking [...] to receive it can visit one of [facility] vaccine clinics. There are many vaccine clinic locations within the [facility]. For locations and available times, please visit [email or web address] It is important to note that some COVID mobile vaccine clinics are held outdoors and may be canceled in rainy or stormy conditions. To learn more about pediatric vaccinations (ages 5-11), we invite you to visit the [facility] webpage. https://www.[email or web address]/pages/[email or web address]-Eldfnarijm-Vsfts-Twz stions.htmlTo learn more about the COVID-19 vaccine, we invite you to visit the CDC website for a list of frequently asked questions.https://www.cdc.gov/coronavirus/2019-ncov/vaccines/faq.html [facility] Patient Portal Access Instructions: Stay connected with your healthcare team and access your personal medical information anytime with the [facility] Patient Portal. Please follow the directions below to create your [facility] account: 1.Access the email account you provided upon registration to the hospital/physician office.2.Look for an invitation email from [facility].3.Open the email and access the invitation link: AcceptInvitation to [facility].4.Fill in the required perez to create your account. To access your account, visit [email or web address]. Click the blue button labeled Access Patient [...] who you will allowto register on the [facility] Patient Portal for access to your information. You can also access the [facility] Patient Portal on the [facility] ashley. Simply click on Patient Portal and then log into your account. If you would like to receive a full copy of your medical records, please contact the [facility] Medical Records Department by calling [phone], Monday through Monday between 8 a.m. and [...] Call your local pharmacy or go to [email or web address] to find one close to you.3.Make use of household items: Use cat litter or old coffee grounds to dispose medications if other options arenot available. Mix your drugs with these household products, seal them in an airtight container andthrow it into the garbage. Call [facility]: [phone] to be sure your drugs can be [...] aware that I should contact my doctor. Patient/Broadcast Meteorologist Signature: Date/Time: Relationship to Patient: Witness Name/Signature: Date/Time: [facility] HospitalVurhikal60-78-2225 Note ORIGINAL EXAMINATION: FLUORO MD - > [...] Sign Date: 03/29/2023 1:43:34 AM Ordering Provider: [facility]01-09-2024 Anesthesiology Consult note Patient: ARELI RUELAS Age: [...] tab(s), Oral, qDay fluticasone nasal 0.05 mg/inh Dennis 100 mcg 2 spray(s), Nostril, each, qAM [...] list: Medical Angina pectoris / SNOMED CT 618555219 / Confirmed Asthma / SNOMED CT 104695088 / Confirmed Severe obesity (BMI >= 40) / SNOMED CT 7235485479 / Confirmed BMI 40.0-44.9, adult / SNOMED CT 2793918543 / Confirmed BMI 45.0-49.9, adult / SNOMED CT 1839934793 / Confirmed Chronic kidney disease, stage 3a / SNOMED CT 8147899493 / Confirmed COPD mixed type / SNOMED CT 59898879 / Confirmed Chronic pain / SNOMED CT 663831516 / Confirmed Colon cancer screening declined, 2021, 2022 / SNOMED CT 5562503166 / Confirmed Other intervertebral disc degeneration, lumbar region / SNOMED CT 46125261 / Confirmed Diastolic heart failure with preserved ejection fraction / SNOMED CT 9780304751 / Confirmed Difficult intravenous access / SNOMED CT 8664380317 / Confirmed Erectile dysfunction / SNOMED CT 4200704368 / Confirmed Essential hypertension / SNOMED CT 80806539 / Confirmed First degree AV block / SNOMED CT 472840115 / Confirmed Gout / SNOMED CT 039433192 / Confirmed Grade A1 albuminuria / SNOMED CT 7106185574 / Confirmed History of ST elevation myocardial infarction (STEMI) / SNOMED CT 5918356812 / Confirmed History of cardiopulmonary arrest, 2019 during surgery / SNOMED CT 9053371980 / Confirmed History of DVT of lower extremity / SNOMED CT 3207754231 / Confirmed S/P coronary artery stent placement / SNOMED CT 8771360730 / Confirmed Insomnia / SNOMED CT 749426374 / Confirmed Chronic anticoagulation with Warfarin goal 2.0-3.0 / SNOMED CT 6506162282 / Confirmed Lumbar postlaminectomy syndrome / SNOMED CT 139761924 / Confirmed Lumbar spondylosis / SNOMED CT 900145781 / Confirmed Major depressive disorder in remission / SNOMED CT 13152970 / Confirmed Microcytic anemia / SNOMED CT 892929296 / Confirmed Obstructive sleep apnea, intolerent to CPAP / SNOMED CT 057044828 / Confirmed Osteoarthritis / SNOMED CT 8164939850 / Confirmed Numbness and tingling of right leg / SNOMED CT 6923654161 / Confirmed Paroxysmal atrial fibrillation / SNOMED CT 428441697 / Confirmed Polypharmacy / SNOMED CT 629996087 / Confirmed [facility] prescription opiate use / SNOMED CT 825558731 / Confirmed Pure hypercholesterolemia / SNOMED CT 254885175 / Confirmed Chronic radicular lumbar pain / SNOMED CT 23525620 / Confirmed Lumbar spinal stenosis / SNOMED CT 79454242 / Confirmed, Active Problems (37) Angina pectoris [...] of ST elevation myocardial infarction (STEMI) Insomnia [facility] prescription opiate use Lumbar postlaminectomy syndrome Lumbar [...] Resolved Acute ST elevation myocardial infarction (STEMI) (7835320616): Onset on 03/03/2019 at 58 years. Resolved. Migraine (13127704): Resolved. Family History: Diabetes mellitus Son (Ryan [...] auto-populated from documented surgical case Cardiac catheterization ([id number]) on 03/03/2019 at 58 Years. Stent in branch of right coronary artery (8150529669) on 03/03/2019 at 58 Years. Revision of total hip arthroplasty (8672841803) on 04/22/2016 at 55 Years. Comments: 09/25/2018 15:18 Ekaterina Aguilera LPN Left Hip, Application of Incisional Wound VAC Arthroplasty ([id number]) on 01/21/2016 at 55 Years. Comments: 09/25/2018 15:20 Ekaterina Aguilera LPN Left Hip, Prostalac spacer placement, cemented freedom liner acetabulum Aspiration of soft tissue (3908122) on 06/29/2015 at 54 Years. Comments: 09/25/2018 15:35 Ekaterina Aguilera LPN Several different procedures on this left thigh for infection of abcess, wound VAC 09/25/2018 15:21 Ekaterina Aguilera LPN Lateral aspect of proximal left thigh Arthroplasty (4213113609) on 12/29/2011 at 51 Years. Comments: 09/25/2018 15:36 Ekaterina Aguilera LPN Revision of Left Hip Diskectomy (1352035) on 05/02/2011 at 50 Years. Comments: 09/25/2018 15:38 Ekaterina Aguilera LPN and Fusion L5-S1 and L4-L5 Total hip replacement ([id number]) on 11/10/2005 at 45 Years. Comments: 09/25/2018 15:45 Ekaterina Aguilera LPN Left Arthroscopy of knee ([id number]) on 08/29/2001 at 41 Years. Comments: 09/25/2018 15:43 Ekaterina Aguilera LPN Right knee Varicose vein ligation and stripping (927283857) on 01/17/1999 at 38 Years. Circumcision (991005200). Injection in back (76676332). Thumb surgery (8192978463). 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 Substance Abuse 03/28/2023 Use: Never 4Risk Assessment: [...] Home/Independent Safe place to go: Yes Primary Door Framer: Self, lives with his girlfriend Current Home [...] Resp Rate 18 br/min (MAR 28 06:) CQY118 mmHg (MAR 28:) DBP76 mmHg (MAR 28:) Measurements from flowsheet : Measurements 03/28/2023 6:29 EST Height 180.3 cm Height in inches 71 inch(es) Admission Weight 153.4 kg Weight Lbs 337.5 lb Adams Body Weight 75.26 kg Type of Scale [...] Weight 153.4 kg Weight Lbs 337.5 lb Adams Body Weight 75.26 kg Type of Scale [...] Type 0-10 Pain scale Nail Bed Color Waggoner Capillary Refill < 2 seconds Heart Rhythm [...] ethnicity Skin Integrity Intact Mucous Membrane Color Waggoner Skin Moisture General Dry Extremity Movement Equal [...] Method Explanation, Printed materials Preferred Spoken Language [place] Islander Preferred Written Language [place]er Disease Process General Education Signs/Symptoms of complications Discharge Planning Education Importance of follow up appt w/physician Pain Medication Education Pain scale Pre Procedure/Surgery Education Responsible sales driver for discharge Safety Measures Education Call [...] Person #1 We May Share ADAN PARRY [phone] Designated Person #1 Relationship Significant other Designated Person #2 We May Share ADAN James ([phone]) Designated Person #2 Relationship Friend Privacy Restrictions [...] No smoking after midnight, No jewelry, Responsible Democrat, Aware of surgery location, Pre-op education done, 2 bottles CHG wash with instructions given, Instructed to take ordered medications, VTE prevention handout given, SSI prevention handout given, MRSA protocol education provided SN - Preprocedure Comments Spoke with patient, Verbalizes/Nonverbally indicates understanding Barriers to Learning None evident Teaching Method Explanation Preferred Spoken Language [place] Islander Preferred Written Language [place] Islander Teaching Evaluation Verbalizes/Nonverbally indicates understanding Safety Brochure [...] No smoking after midnight, No jewelry, Responsible Democrat, Aware of surgery location, Pre-op education done, [...] Cardiac Clearance Scanned . Assessment and Plan [place] Society of Anesthesiologists (ASA) physical status classification: [...] AZALIA [place] MD on 03/28/2023 08:16 AM [facility] Hospital[facility]uffvfxz11-52-2697 Note ORIGINAL Images acquired, not reported on this accession number.[facility]10-23-2023 Hospital Discharge instructions Patient Education 01/09/2023 12:55:13 [...] before eating solid foods. General instructions Take cjxw-chz-xiiydqi and prescription medicines only as told by [...] 06/26/2016 Document Revised: 06/04/2018 Document Reviewed: 06/26/2016 anchor.travel Patient Education 2020 [email or web address]. 01/09/2023 12:54:23 Epidural Steroid Injection Epidural Steroid [...] including vitamins, herbs, eye drops, creams, and cotc-fla-xljmnec medicines. Any problems you or family members [...] 06/12/2008 Document Revised: 02/16/2018 Document Reviewed: 06/21/2016 anchor.travel Patient Education 2020 [email or web address]. [facility] 10-23-2023 Summary of episode note Discharge Instructions [...] OV 01/16/2023 12:45 PM EDT POLO ROD [facility] ACC POC Established Patient 01/18/2023 10:30 AM EDT [facility] [phone] PC OV 02/28/2023 11:00 AM EST GAGANDEEP BARCLAY DO [facility] [address] [phone] Allergies Lyrica (Hives) Red Dye (Hives) penicillin [...] before eating solid foods. General instructions Take kzyo-ics-pkdjlpn and prescription medicines only as told by [...] 06/26/2016 Document Revised: 06/04/2018 Document Reviewed: 06/26/2016 anchor.travel Patient Education 2020 [email or web address]. Epidural Steroid Injection An epidural steroid injection [...] including vitamins, herbs, eye drops, creams, and ixts-lsn-lulijvm medicines. Any problems you or family members [...] Document Reviewed: 06/21/2016 Elsevier Patient Education 2020 anchor.travel Inc. Additional Information VACCINATE! IT SAVES LIVES! Members of the community who have not yet received the COVID-19 vaccine and would like to receive it can visit one of [facility] vaccine clinics. There are many vaccine clinic locations within the [facility]. For locations and available times, please visit [email or web address] It is important to note that some COVID mobile vaccine clinics are held outdoors and may be canceled in rainy or stormy conditions. To learn more about pediatric vaccinations (ages 5-11), we invite you to visit the [facility] webpage. https://www.[email or web address]/pages/1606-Mdafl-Ivcwyppryxa-Jcpitnykmy-Xpyko-Xac stions.htmlTo learn more about the COVID-19 vaccine, we invite you to visit the CDC website for a list of frequently asked questions.https://www.cdc.gov/coronavirus/2019-ncov/vaccines/faq.html [facility] Patient Portal Access Instructions: Stay connected with your healthcare team and access your personal medical information anytime with the [facility] Patient Portal. Please follow the directions below to create your [facility] account: 1.Access the email account you provided upon registration to the hospital/physician office.2.Look for an invitation email from [facility].3.Open the email and access the invitation link: AcceptInvitation to [facility].4.Fill in the required perez to create your account. To access your account, visit [employer]/Netmagic Solutionshart. Click the blue button labeled Access Patient Portal and then log in with the username and password that you created in the steps above. You will be able to view your test results, lab results, a summary of your visits, upcoming appointments and more. There is also a convenient messaging option where you can send secure messages to your p Open Range Communicationsvider. In addition, you will have the ability to download any documents or summaries to your computer and/or send the information securely to a physician. Remember that your healthcare information is confidential, so carefully consider who you will allowto register on the [facility] Patient Portal for access to your information. You can also access the [facility] Patient Portal on the [facility] ashley. Simply click on Patient Portal and then log into your account. If you would like to receive a full copy of your medical records, please contact the [facility] Medical Records Department by calling [phone], Monday through Monday between 8 a.m. and [...] Call your local pharmacy or go to [email or web address] [email or web address] to find one close to you.3.Make use of household items: Use cat litter or old coffee grounds to dispose medications if other options arenot available. Mix your drugs with these household products, seal them in an airtight container andthrow it into the garbage. Call [facility]: [phone] to be sure your drugs can be [...] aware that I should contact my doctor. Patient/Broadcast Meteorologist Signature: Date/Time: Relationship to Patient: Witness Name/Signature: Date/Time: [facility]10-23-2023 Anesthesiology Consult note Patient: ARELI RUELAS Age: [...] list: Medical Angina pectoris / SNOMED CT 977453169 / Confirmed Severe obesity (BMI >= 40) / SNOMED CT 2571162971 / Confirmed BMI 40.0-44.9, adult / SNOMED CT 0835083103 / Confirmed Chronic kidney disease, stage 3a / SNOMED CT 4913276338 / Confirmed COPD mixed type / SNOMED CT 90331816 / Confirmed Chronic pain / SNOMED CT 323950287 / Confirmed Colon cancer screening declined, recheck Spring 2022 / SNOMED CT 5740186935 / Confirmed Other intervertebral disc degeneration, lumbar region / SNOMED CT 70662510 / Confirmed Diastolic heart failure with preserved ejection fraction / SNOMED CT 7568891290 / Confirmed Erectile dysfunction / SNOMED CT 4055358669 / Confirmed Essential hypertension / SNOMED CT 60259398 / Confirmed Gout / SNOMED CT 349044752 / Confirmed Grade A1 albuminuria / SNOMED CT 7137603334 / Confirmed History of DVT of lower extremity / SNOMED CT 5983332705 / Confirmed S/P coronary artery stent placement / SNOMED CT 6336067751 / Confirmed Insomnia / SNOMED CT 034314500 / Confirmed Chronic anticoagulation with Warfarin goal 2.0-3.0 / SNOMED CT 4347805563 / Confirmed Lumbar postlaminectomy syndrome / SNOMED CT 945914280 / Confirmed Lumbar spondylosis / SNOMED CT 177998592 / Confirmed Major depressive disorder in remission / SNOMED CT 43296688 / Confirmed Microcytic anemia / SNOMED CT 276186080 / Confirmed Migraine / SNOMED CT 46878268 / Confirmed Obstructive sleep apnea, intolerent to CPAP / SNOMED CT 804866417 / Confirmed Osteoarthritis / SNOMED CT 6407747294 / Confirmed Paroxysmal atrial fibrillation / SNOMED CT 636762377 / Confirmed Polypharmacy / SNOMED CT 784173125 / Confirmed terminal system operator prescription opiate use / SNOMED CT 611119927 / Confirmed Pure hypercholesterolemia / SNOMED CT 522724579 / Confirmed Chronic radicular lumbar pain / SNOMED CT 76787521 / Confirmed Lumbar spinal stenosis / SNOMED CT 08411551 / Confirmed Canceled: Decreased renal function / SNOMED CT 07315862 Canceled: BMI 45.0-49.9, adult / SNOMED CT 4783367211 Canceled: COPD - Chronic obstructive pulmonary disease / SNOMED CT 386390903 Canceled: Depressive disorder / SNOMED CT 90648234 Canceled: Grade A3 albuminuria / SNOMED CT 0857981736 Canceled: Hypertension / SNOMED CT 74938611 Canceled: HTN (hypertension) / SNOMED CT 1077381743 Canceled: Wellness examination / SNOMED CT 364124824 Canceled: terminal system operator prescription opiate use / SNOMED CT 861697125, Active Problems (31) Angina pectoris BMI 40.0-44.9, adult Chronic anticoagulation with Warfarin goal 2.0-3.0 Chronic kidney disease, stage 3a Chronic pain Chronic radicular lumbar pain Colon cancer screening declined, recheck Spring 2022 COPD mixed type Diastolic heart failure with preserved ejection fraction Erectile dysfunction Essential hypertension Gout Grade A1 albuminuria History of DVT of lower extremity Insomnia [facility] prescription opiate use Lumbar postlaminectomy syndrome Lumbar [...] surgical case Revision of total hip arthroplasty ([id number]) on 04/22/2016 at 55 Years. Comments: 09/25/2018 15:18 Ekaterina Aguilera LPN Left Hip, Application of Incisional Wound VAC Arthroplasty ([id number]) on 01/21/2016 at 55 Years. Comments: 09/25/2018 15:20 Ekaterina Aguilera LPN Left Hip, Prostalac spacer placement, cemented freedom liner acetabulum Aspiration of soft tissue ([id number]) on 06/29/2015 at 54 Years. Comments: 09/25/2018 15:35 Ekaterina Aguilera LPN Several different procedures on this left thigh for infection of abcess, wound VAC 09/25/2018 15:21 Ekaterina Aguilera LPN Lateral aspect of proximal left thigh Arthroplasty ([id number]) on 12/29/2011 at 51 Years. Comments: 09/25/2018 15:36 RASHMIT Ekaterina Green LPN Revision of Left Hip Diskectomy ([id number]) on 05/02/2011 at 50 Years. Comments: 09/25/2018 15:38 EDT Ekaterina Green LPN and Fusion L5-S1 and L4-L5 Total hip replacement ([id number]) on 11/10/2005 at 45 Years. Comments: 09/25/2018 15:45 Ekaterina Aguilera LPN Left Arthroscopy of knee ([id number]) on 08/29/2001 at 41 Years. Comments: 09/25/2018 15:43 Ekaterina Aguilera LPN Right knee Varicose vein ligation and stripping ([id number]) on 01/17/1999 at 38 Years. Circumcision (033541732). Injection in back (73976336). 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.] Lab results 01/09/2023 12:53 EDT SN - [place] - Route of Administration Local 01/09/2023 12:52 [...] mL mL 01/09/2023 11:59 EDT SN - [place] - Medication 1% LIDOCAINE SN - [place] - By (Single) SN - [place] - By (Single) 01/09/2023 11:59 EDT SN - GCD - Post-operative Diagnosis M96.1 SN - GCD - Case Level Level 4 01/09/2023 11:59 EDT SN - Cul - Culture Type No Specimen per Surgeon 01/09/2023 11:58 EDT SN - CAt - Case Attendee SN - CAt - Case Attendee SN - CAt - Role Performed Central Office Trouble Shooter 01/09/2023 11:58 EDT dexmedeTOMIDine 10 mcg mcg [...] Surgeon SN - CAt - Role Performed Lining Layer 1 SN - CAt - Role Performed Scrub 1 SN - CAt - Role Performed Factory Expert 1 SN - CAt - Role Performed Expediter Service Order SN - CAt - Role Performed HOSIERY MENDER 01/09/2023 11:29 EDT Designated Person #1 We May Share ADAN PARRY [phone] Designated Person #1 Relationship Spouse Privacy Restrictions Requested None Height 185 cm Admission Weight 152.2 kg Weight Method Stated Adams Body Weight 79.52 kg BSA Admission 2.68 [...] Teaching Method Printed materials Preferred Spoken Language [place] Islander Preferred Written Language [place] Islander Information Given by Patient Patient's Current Physicians [...] no difficulties Skin Temperature Warm Skin Description Waggoner, Normal for ethnicity, Dry Skin Integrity Intact Mucous Membrane Color Waggoner IV Present Present Neurological Symptoms Patient denies [...] Void 01/09/2023 10:30 . Assessment and Plan [place] Society of Anesthesiologists (ASA) physical status classification: Class III. Anesthetic Preoperative Plan Premedication: intravenous. Anesthetic technique: MAC. Induction: intravenously. Maintenance airway: Mask. Postoperative pain management: Per surgeon. Risks discussed: nausea, vomiting, headache, sore throat, dental injury, hypotension, allergic reaction, serious complications. Informed consent: signed by patient. Digitally Signed by PAPI DURHAM on 01/09/2023 12:55 PM [facility]07-17-2023 Note ORIGINAL Images acquired, not reported on this accession number. [facility]07-17-2023 Note ORIGINAL Images acquired, not reported on this accession number.[facility]07-17-2023 Hospital Discharge instructions Patient Education 10/03/2022 10:48:07 [...] including vitamins, herbs, eye drops, creams, and ytcr-rqe-szwsdmk medicines. Any problems you or family members [...] 06/12/2008 Document Revised: 02/16/2018 Document Reviewed: 06/21/2016 anchor.travel Patient Education 2020 [email or web address]. [facility] 07-17-2023 Summary of episode note Discharge Instructions Thank you for allowing [facility] to assist you with your healthcare needs. The following is importantdischarge information regarding your hospital visit. Your Care Team GAGANDEEP BARCLAY DO Your Diagnosis Lumbar postlaminectomy syndrome What to do next Scheduled Follow-Up Appointments Appointment Type When With Where Contact InformationACC POC Established Patient 10/10/2022 11:30 AMEDT [facility] [phone] PM OV 10/24/2022 11:15 AM POLO LINARES MD [facility] OV 02/28/2023 11:00 AM GAGANDEEP MELENDEZ DO [facility] [address] [phone] Allergies Lyrica (Hives) Red Dye (Hives) penicillin [...] 30-45 min prior to procedure, must have sales driver to and from procedure. Unchanged fluticasone [...] Unchanged predniSONE (prednisone 10mg tab (TAPER)) Taper 53-39-71-10-5 mg by mouth Every day Gout Duration: [...] including vitamins, herbs, eye drops, creams, and vzgn-dte-gtybfre medicines. Any problems you or family members [...] 06/12/2008 Document Revised: 02/16/2018 Document Reviewed: 06/21/2016 anchor.travel Patient Education 2020 [email or web address]. Additional Information VACCINATE! IT SAVES LIVES! Members of the community who have not yet received the COVID-19 vaccine and would like to receive it can visit one of [facility] vaccine clinics. There are many vaccine clinic locations within the [facility]. For locations and available times, please visit [email or web address] It is important to note that some COVID mobile vaccine clinics are held outdoors and may be canceled in rainy or stormy conditions. To learn more about pediatric vaccinations (ages 5-11), we invite you to visit the [facility] webpage. https://www.[facility].org/pages/9370-Mkcuj-Pwkszgnqbgq-Izvdglkyqc-Aucgc-Xir stions.htmlTo learn more about the COVID-19 vaccine, we invite you to visit the CDC website for a list of frequently asked questions.https://www.cdc.gov/coronavirus/2019-ncov/vaccines/faq.html [facility] [employer] Patient Portal Access Instructions: Stay connected with your healthcare team and access your personal medical information anytime with the [facility] Patient Portal. Please follow the directions below to create your [facility] account: 1.Access the email account you provided upon registration to the hospital/physician office.2.Look for an invitation email from [facility].3.Open the email and access the invitation link: Accept[facility] to [facility].4.Fill in the required perez to create your account. To access your account, visit [email or web address]. Click the blue button labeled Access Patient [...] who you will allowto register on the [facility] [employer] Patient Portal for access to your information. You can also access the [facility] Patient Portal on the [facility] ashley. Simply click on Patient Portal and then log into your account. If you would like to receive a full copy of your medical records, please contact the [facility] Medical Records Department by calling [phone], Monday through Monday between 8 a.m. and [...] Call your local pharmacy or go to http://bit.Code Rebel/1V3Wr7m to find one close to you.3.Make use of household items: Use cat litter or old coffee grounds to dispose medications if other options arenot available. Mix your drugs with these household products, seal them in an airtight container andthrow it into the garbage. Call [facility]: [phone] to be sure your drugs can be [...] aware that I should contact my doctor. Patient/Broadcast Meteorologist Signature: Date/Time: Relationship to Patient: Witness Name/Signature: Date/Time: [facility]05-15-2023 Hospital Discharge instructions Patient Education 08/01/2022 11:37:17 How to Use Cold Therapy, Lcrh-qm-Negk How to Use Cold Therapy Cold therapy, [...] 08/22/2008 Document Revised: 12/03/2018 Document Reviewed: 12/03/2018 anchor.travel Patient Education 2020 [employer]. 08/01/2022 11:37:11 Epidural Steroid Injection, Care After [...] the bandage (dressing) after 24 hours. Take unoe-tqi-jpssrvk and prescription medicines only as told by your health care provider. Keep all follow-up visits as told by your health care provider. This is important. Contact a health care provider if: You have a fever. You continue to have pain and soreness around the injection site, even after taking nxed-mvi-wkeebwo pain medicine. You have severe, sudden, or [...] 06/21/2011 Document Revised: 02/16/2018 Document Reviewed: 06/21/2016 anchor.travel Patient Education 2020 [employer]. Follow Up Care 07/26/2022 10:39:54 With:POLO ROD MD Address: [address] [place] [address] [facility] [place] [address] [phone] When: Unknown Comments:CALL DR ROD WITH ANY QUESTIONS OR CONCERNS. GO TO THE EMERGENCY ROOM WITH ANY URGENT CONCERNS FOLLOW UP WITH DR. ROD. [facility] 05-15-2023 Note ORIGINAL Images acquired, not reported on this accession number. [facility]05-15-2023 Note ORIGINAL Images acquired, not reported on this accession number.[facility]05-15-2023 Summary of episode note Discharge Instructions Thank you for allowing [facility] to assist you with your healthcare needs. The following is importantdischarge information regarding your hospital visit. Your Care Team GAGANDEEP BARCLAY Your Diagnosis CAUDAL EPIDURAL STEROID INJECTION What to do next Scheduled Follow-Up Appointments Appointment Type When With Where Contact InformationPM OV 08/24/2022 09:45 AM EDT MARLA VILLATORO APRN-SERA [facility] ACC POC Established Patient 08/24/2022 10:30 AM EDT [facility] [phone] OV 08/25/2022 11:00 AM EDT [facility] [address] [phone] Follow Up Appointments Follow Up with POLO ROD MD When Why: CALL DR ROD WITH ANY QUESTIONS OR CONCERNS. GO TO THE EMERGENCY ROOM WITH ANY URGENT CONCERNS FOLLOW UP WITH DR. ROD. Where: [facility] [address] [facility] [place] [address] [phone] The Following Activity and Diet Have Been [...] 08/22/2008 Document Revised: 12/03/2018 Document Reviewed: 12/03/2018 anchor.travel Patient Education 2020 anchor.travel Inc. Epidural Steroid Injection, Care After Refer [...] the bandage (dressing) after 24 hours. Take mbsb-xvd-mzgygxf and prescription medicines only as told by your health care provider. Keep all follow-up visits as told by your health care provider. This is important. Contact a health care provider if: You have a fever. You continue to have pain and soreness around the injection site, even after taking jpvt-tto-ojtsrtq pain medicine. You have severe, sudden, or [...] 06/21/2011 Document Revised: 02/16/2018 Document Reviewed: 06/21/2016 anchor.travel Patient Education 2020 anchor.travel Inc. Additional Information VACCINATE! IT SAVES LIVES! Members of the community who have not yet received the COVID-19 vaccine and would like to receive it can visit one of [facility] vaccine clinics. There are many vaccine clinic locations within the [facility]. For locations and available times, please visit [email or web address] It is important to note that some COVID mobile vaccine clinics are held outdoors and may be canceled in rainy or stormy conditions. To learn more about pediatric vaccinations (ages 5-11), we invite you to visit the [facility] webpage. https://www.[email or web address].org/pages/8223-Mguif-Jmxvtuyjygq-Elobrzwduk-Mxkps-Jno stions.htmlTo learn more about the COVID-19 vaccine, we invite you to visit the CDC website for a list of frequently asked questions.https://www.cdc.gov/coronavirus/2019-ncov/vaccines/faq.html [facility] Patient [facility] Access Instructions: Stay connected with your healthcare team and access your personal medical information anytime with the [employer]Chart Patient Portal. Please follow the directions below to create your [facility] account: 1.Access the email account you provided upon registration to the hospital/physician office.2.Look for an invitation email from [facility].3.Open the email and access the invitation link: AcceptInvitation to [facility] [employer]4.Fill in the required perez to create your account. To access your account, visit [email or web address]. Click the blue button labeled Access Patient [...] who you will allowto register on the [facility] [employer] Patient Portal for access to your information. You can also access the [facility] [employer] Patient Portal on the [facility] [employer] ashley. Simply click on Patient Portal and then log into your account. If you would like to receive a full copy of your medical records, please contact the [facility] Medical Records Department by calling [phone], Monday through Monday between 8 a.m. and [...] Call your local pharmacy or go to http://bit.ly/2S4Ze5l to find one close to you.3.Make use of household items: Use cat litter or old coffee grounds to dispose medications if other options arenot available. Mix your drugs with these household products, seal them in an airtight container andthrow it into the garbage. Call [facility]: [phone] to be sure your drugs can be [...] Education Materials How to Use Cold Therapy, Qnrk-uv-Xdbo Epidural Steroid Injection, Care After Medication Leaflets My discharge plan and instructions have been reviewed and explained to me and IRAEANN HARRISON Bunderstand my current condition and have read and understand these discharge instructions. I have received a written copy of the plan/instructions. If I have questions, I am aware that I should contact my doctor. Patient/Broadcast Meteorologist Signature: Date/Time: Relationship to Patient: Witness Name/Signature: Date/Time: [facility]02-20-2023 Procedure [facility]12-15-2019 Evaluation note* Diagnosis Onset Date Resolution Status Essential (primary) hypertension chronic Paroxysmal atrial fibrillation chronic History of coronary artery stent placement March 032018 resolved [facility] Work Phone: 1(829) 637-673001-19-2015 History of Present illness Narrative* Yon Alvarez - 04/07/2014 7:39 AM EST Injection scheduled 04-24-2014 Sent to Emma for PAT scheduling Yon Coats [facility]EDULING documented in [facility]Pro[facility] HospitalAn[facility]hesiology Consult note* EKATERINA BLUE MD: PERFORM, SIGN, [...] tab(s), Oral, qDay fluticasone nasal 0.05 mg/inh Dennis 100 mcg 2 spray(s), Nostril, each, qAM [...] list: Medical Angina pectoris / SNOMED CT 526324540 / Confirmed Asthma / SNOMED CT 395245668 / Confirmed Severe obesity (BMI >= 40) / SNOMED CT 4198373574 / Confirmed BMI 40.0-44.9, adult / SNOMED CT 7462542759 / Confirmed BMI 45.0-49.9, adult / SNOMED CT 0108962048 / Confirmed Chronic kidney disease, stage 3a / SNOMED CT 4522468429 / Confirmed COPD mixed type / SNOMED CT 11717506 / Confirmed Chronic pain / SNOMED CT 451204121 / Confirmed Colon cancer screening declined, 2021, 2022 / SNOMED CT 6279407541 / Confirmed Other intervertebral disc degeneration, lumbar region / SNOMED CT 89533112 / Confirmed Diastolic heart failure with preserved ejection fraction / SNOMED CT 2672560817 / Confirmed Difficult intravenous access / SNOMED CT 0095569099 / Confirmed Erectile dysfunction / SNOMED CT 3438514516 / Confirmed Essential hypertension / SNOMED CT 23557645 / Confirmed First degree AV block / SNOMED CT 316897067 / Confirmed Gout / SNOMED CT 006896149 / Confirmed Grade A1 albuminuria / SNOMED CT 4863186277 / Confirmed History of ST elevation myocardial infarction (STEMI) / SNOMED CT 4504218726 / Confirmed History of cardiopulmonary arrest, 2019 during surgery / SNOMED CT 3839121503 / Confirmed History of DVT of lower extremity / SNOMED CT 6094752350 / Confirmed S/P coronary artery stent placement / SNOMED CT 0791279492 / Confirmed Insomnia / SNOMED CT 610297631 / Confirmed Chronic anticoagulation with Warfarin goal 2.0-3.0 / SNOMED CT 4063236630 / Confirmed Lumbar postlaminectomy syndrome / SNOMED CT 349665843 / Confirmed Lumbar spondylosis / SNOMED CT 755934976 / Confirmed Major depressive disorder in remission / SNOMED CT 05809858 / Confirmed Microcytic anemia / SNOMED CT 017985828 / Confirmed Obstructive sleep apnea, intolerent to CPAP / SNOMED CT 807718951 / Confirmed Osteoarthritis / SNOMED CT 9720831777 / Confirmed Numbness and tingling of right leg / SNOMED CT 8797322654 / Confirmed Paroxysmal atrial fibrillation / SNOMED CT 567074792 / Confirmed Polypharmacy / SNOMED CT 769630536 / Confirmed terminal system operator prescription opiate use / SNOMED CT 143723433 / Confirmed Pure hypercholesterolemia / SNOMED CT 075213594 / Confirmed Chronic radicular lumbar pain / SNOMED CT 57794586 / Confirmed Lumbar spinal stenosis / SNOMED CT 37077613 / Confirmed, Active Problems (37) Angina pectoris [...] of ST elevation myocardial infarction (STEMI) Insomnia terminal system operator prescription opiate use Lumbar postlaminectomy syndrome Lumbar [...] Resolved Acute ST elevation myocardial infarction (STEMI) (4309322477): Onset on 03/03/2019 at 58 years. Resolved. Migraine (30384215): Resolved. Family History: Diabetes mellitus Son (Ryan [...] auto-populated from documented surgical case Cardiac catheterization ([id number]) on 03/03/2019 at 58 Years. Stent in branch of right coronary artery (3603548615) on 03/03/2019 at 58 Years. Revision of total hip arthroplasty (5943894574) on 04/22/2016 at 55 Years. Comments: 09/25/2018 15:18 Ekaterina Aguilera LPN Left Hip, Application of Incisional Wound VAC Arthroplasty ([id number]) on 01/21/2016 at 55 Years. Comments: 09/25/2018 15:20 Ekaterina Aguilera LPN Left Hip, Prostalac spacer placement, cemented freedom liner acetabulum Aspiration of soft tissue (6553736) on 06/29/2015 at 54 Years. Comments: 09/25/2018 15:35 Ekaterina Aguilera LPN Several different procedures on this left thigh for infection of abcess, wound VAC 09/25/2018 15:21 Ekaterina Aguilera LPN Lateral aspect of proximal left thigh Arthroplasty ([id number]) on 12/29/2011 at 51 Years. Comments: 09/25/2018 15:36 Ekaterina Aguilera LPN Revision of Left Hip Diskectomy ([id number]) on 05/02/2011 at 50 Years. Comments: 09/25/2018 15:38 Ekaterina Aguilera LPN and Fusion L5-S1 and L4-L5 Total hip replacement ([id number]) on 11/10/2005 at 45 Years. Comments: 09/25/2018 15:45 Ekaterina Aguilera LPN Left Arthroscopy of knee (266757990) on 08/29/2001 at 41 Years. Comments: 09/25/2018 15:43 Ekaterina Aguilera LPN Right knee Varicose vein ligation and stripping (410110917) on 01/17/1999 at 38 Years. Circumcision (929467062). Injection in back (69257654). Thumb surgery (9029505323). 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 Substance Abuse 03/28/2023 Use: Never 4Risk Assessment: [...] Home/Independent Safe place to go: Yes Primary Door Framer: Self, lives with his girlfriend Current Home [...] Resp Rate 18 br/min (MAR 28 06:29) GJI678 mmHg (MAR 28 06:29) DBP76 mmHg (MAR 28 06:29) Measurements from flowsheet : Measurements 03/28/2023 6:29 EST Height 180.3 cm Height in inches 71 inch(es) Admission Weight 153.4 kg Weight Lbs 337.5 lb Adams Body Weight 75.26 kg Type of Scale [...] Weight 153.4 kg Weight Lbs 337.5 lb Adams Body Weight 75.26 kg Type of Scale [...] Type 0-10 Pain scale Nail Bed Color Waggoner Capillary Refill < 2 seconds Heart Rhythm [...] ethnicity Skin Integrity Intact Mucous Membrane Color Waggoner Skin Moisture General Dry Extremity Movement Equal [...] Method Explanation, Printed materials Preferred Spoken Language [place] Islander Preferred Written Language [place]er Disease Process General Education Signs/Symptoms of complications Discharge Planning Education Importance of follow up appt w/physician Pain Medication Education Pain scale Pre Procedure/Surgery Education Responsible sales driver for discharge Safety Measures Education Call [...] #1 We May Share PHI ADAM BRINDA [phone] Designated Person #1 Relationship Significant other Designated Person #2 We May Share PHI Tanna James ([phone]) Designated Person #2 Relationship Friend Privacy Restrictions [...] No smoking after midnight, No jewelry, Responsible Democrat, Aware of surgery location, Pre-op education done, 2 bottles CHG wash with instructions given, Instructed to take ordered medications, VTE prevention handout given, SSI prevention handout given, MRSA protocol education provided SN - Preprocedure Comments Spoke with patient, Verbalizes/Nonverbally indicates understanding Barriers to Learning None evident Teaching Method Explanation Preferred Spoken Language [place] Islander Preferred Written Language [place] Islander Teaching Evaluation Verbalizes/Nonverbally indicates understanding Safety Brochure [...] No smoking after midnight, No jewelry, Responsible Democrat, Aware of surgery location, Pre-op education done, [...] Cardiac Clearance Scanned . Assessment and Plan [place] Society of Anesthesiologists (ASA) physical status classification: [...] AZALIA [place] MD on 03/28/2023 08:16 AM [facility] Evaluation + Plan note Future Appointments Appointment Date:12/14/2021 10:45:00 AM Scheduled Provider: Location:[facility] Appointment Type:ACC POC Established Patient Appointment Date:12/17/2021 11:15:00 AM Scheduled Provider:GAGANDEEP BARCLAY DO Location:[facility] Appointment Type:PC OV Follow Up Diagnostic Tests Pending * Microalbumin Level Urine 12/07/21 [facility] Evaluation + Plan note Future Appointments Appointment Date:05/24/2022 11:00:00 AM Scheduled Provider:GAGANDEEP BARCLAY DO Location:[facility] Appointment Type:PC OV Appointment Date:05/24/2022 12:00:00 PM Scheduled Provider: Location:[facility] Appointment Type:ACC POC Established Patient [facility] Evaluation + Plan note Future Appointments Appointment Date:08/24/2022 09:45:00 AM Scheduled Provider:BRENT VILLATORO Location:[facility] PM Appointment Type:PM OV Appointment Date:08/24/2022 10:30:00 AM Scheduled Provider: Location:[facility] Appointment Type:ACC POC Established Patient Appointment Date:08/24/2022 11:00:00 AM Scheduled Provider:GAGANDEEP BARCLAY DO Location:[facility] Appointment Type:PC OV [facility] Evaluation + Plan note Future Appointments Appointment Date:08/24/2022 09:45:00 AM Scheduled Provider:BRENT VILLATORO Location:[facility] PM Appointment Type:PM OV Appointment Date:08/24/2022 10:30:00 AM Scheduled Provider: Location:[facility] Appointment Type:ACC POC Established Patient Appointment Date:08/25/2022 11:00:00 AM Scheduled Provider:GAGANDEEP BARCLAY DO Location:[facility] Appointment Type:PC OV [facility] Evaluation + Plan note Future Appointments Appointment Date:08/25/2022 11:00:00 AM Scheduled Provider:GAGANDEEP BARCLAY DO Location:[facility] Appointment Type:PC OV Appointment Date:09/14/2022 02:15:00 PM Scheduled Provider:BRENT VILLATORO Location:[facility] PM Appointment Type:PM OV Appointment Date:10/05/2022 10:45:00 AM Scheduled Provider: Location:[facility] Appointment Type:ACC POC Established Patient [facility] Evaluation + Plan note Future Appointments Appointment Date:10/10/2022 11:30:00 AM Scheduled Provider: Location:[facility] Appointment Type:ACC POC Established Patient Appointment Date:10/24/2022 11:15:00 AM Scheduled Provider:POLO ROD MD Location:[facility] PM Appointment Type:PM OV Appointment Date:02/28/2023 11:00:00 AM Scheduled Provider:GAGANDEEP BARCLAY DO Location:[facility] Appointment Type:PC OV Future Scheduled Tests Laboratory* Prostate Specific Antigen 08/25/22 * Thyroid Stimulating Hormone 08/25/22 * Free T4 08/25/22 * Uric Acid 08/25/22 * Vitamin B12 Level 08/25/22 * A1C Hemoglobin 08/25/22 * Complete Blood Count 08/25/22 * Lipid Profile 08/25/22 * Albumin/Creatinine Ratio, Random Urine 08/25/22 * Vitamin D Level 08/25/22 * Complete Metabolic Panel 08/25/22 [facility] Evaluation + Plan note Future Appointments Appointment Date:12/21/2022 11:00:00 AM Scheduled Provider: Location:[facility] Appointment Type:ACC POC Established Patient Appointment Date:12/21/2022 11:45:00 AM Scheduled Provider:BRENT VILLATORO Location:[facility] PM Appointment Type:PM OV Appointment Date:02/28/2023 11:00:00 AM Scheduled Provider:GAGANDEEP BARCLAY DO Location:[facility] Appointment Type:PC OV Future Scheduled Tests Laboratory* Prostate Specific Antigen 08/25/22 * Thyroid Stimulating Hormone 08/25/22 * Free T4 08/25/22 * Uric Acid 08/25/22 * Vitamin B12 Level 08/25/22 * A1C Hemoglobin 08/25/22 * Complete Blood Count 08/25/22 * Lipid Profile 08/25/22 * Albumin/Creatinine Ratio, Random Urine 08/25/22 * Vitamin D Level 08/25/22 * Complete Metabolic Panel 08/25/22 [facility] Evaluation + Plan note Future Appointments Appointment Date:01/16/2023 12:45:00 PM Scheduled Provider:POLO ROD MD Location:[facility] PM Appointment Type:PM OV Appointment Date:01/18/2023 10:30:00 AM Scheduled Provider: Location:[facility] Appointment Type:ACC POC Established Patient Appointment Date:02/28/2023 11:00:00 AM Scheduled Provider:GAGANDEEP BARCLAY DO Location:[facility] Appointment Type:PC OV Future Scheduled Tests Laboratory* Prostate Specific Antigen 08/25/22 * Thyroid Stimulating Hormone 08/25/22 * Free T4 08/25/22 * Uric Acid 08/25/22 * Vitamin B12 Level 08/25/22 * A1C Hemoglobin 08/25/22 * Complete Blood Count 08/25/22 * Lipid Profile 08/25/22 * Albumin/Creatinine Ratio, Random Urine 08/25/22 * Vitamin D Level 08/25/22 * Complete Metabolic Panel 08/25/22 [facility] Evaluation + Plan note Future Appointments Appointment Date:02/15/2023 11:30:00 AM Scheduled Provider: Location:[facility] Appointment Type:ACC POC Established Patient Appointment Date:02/15/2023 12:30:00 PM Scheduled Provider:BRENT VILLATORO Location:[facility] PM Appointment Type:PM OV Appointment Date:02/28/2023 11:00:00 AM Scheduled Provider:GAGANDEEP BARCLAY DO Location:[facility] Appointment Type:PC OV Future Scheduled Tests Laboratory* Prostate Specific Antigen 08/25/22 * Thyroid Stimulating Hormone 08/25/22 * Free T4 08/25/22 * Uric Acid 08/25/22 * Vitamin B12 Level 08/25/22 * A1C Hemoglobin 08/25/22 * Complete Blood Count 08/25/22 * Lipid Profile 08/25/22 * Albumin/Creatinine Ratio, Random Urine 08/25/22 * Vitamin D Level 08/25/22 * Complete Metabolic Panel 08/25/22 [facility] Evaluation + Plan note Future Appointments Appointment Date:02/28/2023 11:00:00 AM Scheduled Provider:GAGANDEEP BARCLAY DO Location:[facility] Appointment Type:PC OV Appointment Date:03/22/2023 12:00:00 PM Scheduled Provider:BRENT VILLATORO Location:[facility] PM Appointment Type:PM OV Appointment Date:03/29/2023 11:30:00 AM Scheduled Provider: Location:[facility] Appointment Type:ACC POC Established Patient Future Scheduled Tests Laboratory* Prostate Specific Antigen 08/25/22 * Thyroid Stimulating Hormone 08/25/22 * Free T4 08/25/22 * Uric Acid 08/25/22 * Vitamin B12 Level 08/25/22 * A1C Hemoglobin 08/25/22 * Complete Blood Count 08/25/22 * Lipid Profile 08/25/22 * Albumin/Creatinine Ratio, Random Urine 08/25/22 * Vitamin D Level 08/25/22 * Complete Metabolic Panel 08/25/22 [facility] Evaluation + Plan note Future Appointments Appointment Date:04/12/2023 01:15:00 PM Scheduled Provider: Location:[facility] Appointment Type:NS Post Op Appointment Date:04/19/2023 11:30:00 AM Scheduled Provider: Location:[facility] Appointment Type:ACC POC Established Patient Appointment Date:04/19/2023 12:00:00 PM Scheduled Provider:BRENT VILLATORO Location:[facility] PM Appointment Type:PM OV Appointment Date:09/19/2023 11:00:00 AM Scheduled Provider:GAGANDEEP BARCLAY DO Location:[facility] Appointment Type:[facility] Evaluation + Plan note Future Appointments Appointment Date:04/19/2023 11:30:00 AM Scheduled Provider: Location:[facility] Appointment Type:ACC POC Established Patient Appointment Date:04/19/2023 12:00:00 PM Scheduled Provider:BRENT VILLATORO Location:[facility] PM Appointment Type:PM OV Appointment Date:09/19/2023 11:00:00 AM Scheduled Provider:GAGANDEEP BARCLAY DO Location:[facility] Appointment Type:[facility] Evaluation + Plan note Future Appointments Appointment Date:05/24/2023 11:45:00 AM Scheduled Provider:BRENT VILLATORO Location:[facility] PM Appointment Type:PM OV Appointment Date:09/19/2023 11:00:00 AM Scheduled Provider:GAGANDEEP BARCLAY DO Location:[facility] Appointment Type:[facility] Evaluation + Plan note Future Appointments Appointment Date:06/21/2023 11:15:00 AM Scheduled Provider: Location:[facility] Appointment Type:ACC POC Established Patient Appointment Date:06/21/2023 11:45:00 AM Scheduled Provider:BRENT VILLATORO Location:[facility] Appointment Type:PM OV Appointment Date:09/19/2023 11:00:00 AM Scheduled Provider:GAGANDEEP BARCLAY DO Location:[facility] Appointment Type:PC OV [facility] Evaluation + Plan note Future Appointments Appointment Date:10/09/2023 11:30:00 AM Scheduled Provider:AKSHAT SAWYER Location:[facility] Appointment Type:PM OV Appointment Date:10/20/2023 10:00:00 AM Scheduled Provider:GAGANDEEP BARCLAY DO Location:[facility] Appointment Type:PC OV [facility] Evaluation + Plan note Future Appointments Appointment Date:11/06/2023 11:30:00 AM Scheduled Provider:AKSHAT SAWYER Location:[facility] Appointment Type:PM OV Appointment Date:11/15/2023 10:00:00 AM Scheduled Provider:GAGANDEEP BARCLAY DO Location:[facility] Appointment Type:PC OV Future Scheduled Tests Radiology* US Renal 10/20/23 [facility] Evaluation + Plan note Future Appointments Appointment Date:11/06/2023 11:30:00 AM Scheduled Provider:AKSHAT SAWYER Location:[facility] Appointment Type:PM OV Appointment Date:11/15/2023 10:00:00 AM Scheduled Provider:GAGANDEEP BARCLAY DO Location:[facility] Appointment Type:PC OV Future Scheduled Tests Laboratory* Basic Metabolic Panel 10/24/23 Radiology* US Renal 10/20/23 [facility] Evaluation + Plan note Future Appointments Appointment Date:12/11/2023 11:30:00 AM Scheduled Provider:AKSHAT SAWYER Location:[facility] [place] Appointment Type:PM OV Future Scheduled Tests Radiology* US Renal 10/20/23 [facility] Evaluation + Plan note Future Appointments Appointment Date:04/08/2024 11:30:00 AM Scheduled Provider:AKSHAT SAWYER APRN-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 DIRECTOR Location:[facility] Appointment Type:PM OV Future Scheduled Tests Laboratory* Basic Metabolic Panel 11/24/23 Radiology* US Renal 10/20/23 [facility] Evaluation + Plan note Future Appointments Appointment Date:05/06/2024 10:45:00 AM Scheduled Provider:AKSHAT SAWYER APRN-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 DIRECTOR Location:[facility] Appointment Type:PM OV Future Scheduled Tests Laboratory* Uric Acid 04/09/24 Radiology* US Renal 10/20/23 [facility] Evaluation + Plan note Future Appointments Appointment Date:05/06/2024 10:45:00 AM Scheduled Provider:AKHSAT SAWYER APRN-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 DIRECTOR Location:[facility] Appointment Type:PM OV Diagnostic Tests Pending * Lipoprotein (a) 04/11/24 * Apolipoprotein B 04/11/24 Future Scheduled Tests Laboratory* Uric Acid 04/09/24 Radiology* US Renal 10/20/23 [facility] Evaluation + Plan note Future Appointments Appointment Date:05/06/2024 10:45:00 AM Scheduled Provider:AKSHAT SAWYER APRN-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 DIRECTOR Location:[facility] Appointment Type:PM OV Diagnostic Tests Pending * Apolipoprotein B 04/18/24 Future Scheduled Tests Laboratory* Uric Acid 04/09/24 Radiology* US Renal 10/20/23 [facility] Evaluation + Plan note Future Appointments Appointment Date:10/04/2024 10:45:00 AM Scheduled Provider:GAGANDEEP BARCLAY DO Location:[facility] Appointment Type:PC OV Follow Up Appointment Date:10/07/2024 01:45:00 PM Scheduled Provider:AKSHAT SAWYER APRN-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 DIRECTOR Location:[facility] Appointment Type:PM OV Diagnostic Tests Pending * Apolipoprotein B 09/23/24 Future Scheduled Tests Radiology* US Renal 10/20/23 [facility] Evaluation + Plan note Future Appointments Appointment Date:02/05/2025 12:30:00 PM Scheduled Provider:SAMANTHA URIBE Location:[facility] Appointment Type:PM OV Future Scheduled Tests Laboratory* Uric Acid 10/04/24 * A1C Hemoglobin 10/04/24 * Complete Blood Count 10/04/24 * Complete Metabolic Panel 10/04/24 [facility] Evaluation noteNo assessment information available [facility] Work Phone: Evaluation note* Diagnosis Onset Date Resolution Status Acute gout acute Inability to ambulate due to multiple joints acute [facility] Work Phone: Hospital course Narrative No data available for this section [facility] Hospital Discharge instructions No data available for this section [facility] Progress note No data available for this section [facility] Advance Directives No Advanced Directives Records Found Advance Directive Response Recorded Date/ Time Advance Directives No January 20, 2020 7:58am Living Will No June 04, 2021 10:24am Power of [employer] Tuber Machine Operator No June 04 10:24am Advance Directive Response Recorded Date/ Time Advance Directives No January 20, 2020 7:58am Living Will No December 01, 2021 12:13pm Power of [employer] Tuber Machine Operator No November 12:13pm Advance Directive Response Recorded Date/ Time Advance Directives No January 20, 2020 7:58am Living Will No December 01, 2021 6:19pm Power of [employer] Tuber Machine Operator No November 6:19pm Advance Directive Response Recorded Date/ Time Advance Directives No January 20, 2020 6:58am Living Will No December 01, 2021 5:19pm Power of [employer] Tuber Machine Operator No November 5:19pm Chief Complaint and Reason [...] or prosecute any alcohol or drug abuse patient.[facility] Care Team (unrecognized sect ion and content) Care Team Personnel Name: GAGANDEEP BARCLAY DO Position: P4 Physician - Primary Care Member Role: Primary Care Physician Address: Address: [address] [place] [address] Care Team Related Persons Name: TANNA GRISSOM Care Team Personnel Name: GAGANDEEP BARCLAY DO Position: P4 Physician - Primary Care Member Role: Primary Care Physician Address: Address: [address] [place] [address] Care Team Related Persons Name: TANNA GRISSOM [...] section and content) DATE CREATED AUTHOR 11/24/2023 [facility] ([place]) DATE CREATED AUTHOR AUTHOR'S ORGANIZ ATION 03/02/2024 [facility] DATE CREATED AUTHOR AUTHOR'S ORGANIZ ATION 08/18/2024 [facility] DATE CREATED AUTHOR AUTHOR'S ORGANIZ ATION 01/18/2025 [facility] FOR RECORDS PERTAINING TO PATIENTS WHO [...] BE BASED ON THE PRIMARY CLINICAL RECORDS. [facility] [employer] provides no warranty or guarantee of the accuracy or completeness of information in this document.
[2025-03-12 12:40] LABS: Troponin T High Sens 2 HR 23 ng/L (<=22)
--- NOTE | 2025-03-12 13:14 | ED.RN ---
RADIOLOGY NURSE IN PT. ROOM IN AN ATTEMPT TO OBTAIN ADDITIONAL IV ACCESS.
--- NOTE | 2025-03-12 13:41 | ED.RN ---
LATE D/T DIFFICULTY WITH PERIPHERAL IV ACCESS
[2025-03-12 13:59] LABS: Prothrombin Time (Protime)PT. 15.5 SECONDS (11.7-14.9)
[2025-03-12 14:13] LABS: Troponin T High Sens 4 HR 24 ng/L (<=22)
--- NOTE | 2025-03-12 17:07 | CON.PCM.GI_ITS ---
HPI Consult Data Date of Consult: 03/12/25 HPI Narrative HPI Narrative: ARELI CARY, is a 64-year-old male with past medical history of STEMI, diastolic CHF, cardiac dysrhythmia, paroxysmal A-fib on warfarin, COPD, morbid obesity, hypertension, and CRISTELA presents to the Emergency Department via EMS with active 10/10 pressure-like chest pain on the left side radiating to the right arm. Patient states it feels similar to his past heart attack. Pain has been intermittent for approximately one week, worsening yesterday.? Associated symptoms include shortness of breath and nausea with one episode of vomiting this morning. Patient received 325 mg aspirin from EMS.? Patient reports being seen in this ED on 03/09 for the?same complaint, where workup for chest pain was reportedly unremarkable, and patient was discharged with a diagnosis of dehydration. Hemoglobin (Hgb) at that time was 10.6, INR 2.6. Patient complains of melena ongoing for the past week. His Hgb today is 4.6, and INR is 7.8 (previously 15 in 2021). * Labs:?Hgb 4.6, INR 7.8 (current); Hgb 10.6, INR 2.6 (03/09 visit). * Interventions (ED):?Received IV pantoprazole, Vitamin K, Prothrombin Complex Concentrate (PCC), and 3 units of packed red blood cells (PRBCs). 325 mg aspirin administered by EMS. * I was consulted for acute anemia and possible upper GI bleed. ] [facility] Medical History Spinal cord stimulator status Varicose veins of both legs with edema Ulcer of left lower extremity with fat layer exposed History of ST elevation myocardial infarction (STEMI) (03/03/19) Inability to ambulate due to multiple joints Acute gout Wears glasses Ambulates with cane Arthritis History of Walker's palsy Nicotine vapor product user Shortness of breath on exertion History of edema History of steroid therapy Atherosclerosis of coronary artery of [place] heart without angina pectoris Diastolic congestive heart failure Cardiac dysrhythmia Paroxysmal atrial fibrillation Diastolic dysfunction with acute on chronic heart failure Paroxysmal atrial flutter Cardiopulmonary arrest (08/20/18) History of deep vein thrombosis (DVT) of lower extremity Nicotine dependence Chronic pain Obstructive sleep apnea COPD (chronic obstructive pulmonary disease) Failed back syndrome of lumbar spine Degeneration of intervertebral disc of lumbosacral region Sacrococcygeal disorders, not elsewhere classified Morbid obesity Sacroiliitis, not elsewhere classified Essential (primary) hypertension Home Medications ?Medication ?Instructions ?Recorded ?Last Taken ?Type fluticasone propionate 50 1 spray NASAL DAILY PRN PRN 09/27/18 1 Week Ago History mcg/actuation nasal Allergies ~11/24/21 spray,suspension furosemide 40 mg tablet 40 mg PO BID FLUID OVERLOAD #60 09/28/18 12/01/21 Rx tabs aspirin 81 mg tablet,delayed 81 mg PO DAILY@0800 [facility] 03/05/19 03/11/25 Rx release atorvastatin 80 mg tablet 80 mg PO QHS HIGH CHOLESTERO L #30 03/05/19 12/01/21 Rx tabs albuterol sulfate 90 mcg/actuation 1 - 2 puff inhalati on Q4H PRN PRN 02/19/20 1 Week Ago History aerosol inhaler Asthma ~11/24/21 carvedilol 6.25 mg tablet 6.25 mg PO BID heart 0 03/11/25 History amlodipine 5 mg tablet 5 mg PO DAILY HYPERTENSION 0 12/01/21 05/09/22 History hydralazine 50 mg tablet 50 mg PO BID HYPERTENSION 05/09/22 History potassium chloride 20 mEq 20 meq PO DAILY potassium 03/11/25 History tablet,extended release(part/cryst) (Klor-Con M) sildenafil (pulm.hypertension) 20 20 mg PO TID PRN HTN 12/01/21 Unknown History mg tablet trazodone 50 mg tablet 50 mg PO QHS PRN Sleep 12/01 Unknown History allopurinol 100 mg tablet 100 mg PO DAILYCM gout 30 da ys #30 12/02/21 03/11/25 Rx tabs lisinopril 40 mg tablet 40 mg PO DAILY blood pressur e 12/28/21 03/11/25 History warfarin 4 mg tablet 4 mg PO SUMOWETHSA blood thi nner 12/28/21 05/04/22 History warfarin 4 mg tablet 6 mg PO TUFR blood thinner 1 03/11/25 History sotalol 80 mg tablet 80 mg PO BID bp,heart #180 t abs 03/24/23 03/11/25 Rx cholecalciferol (vitamin D3) 50 50 mcg PO DAILY [facility] 10/26/23 Unknown History mcg (2,000 unit) capsule (Vitamin D3) clonidine HCl 0.1 mg tablet 0.1 mg PO BID blood pressu re 10/26/23 03/11/25 History fluticasone 250 mcg-salmeterol 50 1 ea inhalation BID SOB AND 10/26/23 Unknown History mcg/dose blistr powdr for WHEEZING inhalation lidocaine 4 % topical cream 1 applic topical TID PRN P RN pain 10/26/23 Unknown History oxycodone-acetaminophen 7.5 mg-325 1 tab PO 4X/DAY PRN pain 12/19/23 Unknown History mg tablet cephalexin 500 mg capsule 500 mg PO BID infection in h ip 03/12/25 03/11/25 History Allergy/AdvReac Type Severity Reaction Status Date / Time Penicillins Allergy Hives Verified 03/12/25 09:06 pregabalin (From Lyrica) Allergy Hives Verified 03/12/25 09:06 red dye Allergy Angioedema Verified 03/12/25 09:06 Family History Mother CVA (cerebral vascular accident) Father , Murdered per patient No problems noted. Surgical History History of back surgery History of coronary artery stent placement (03/03/19) History of total knee arthroplasty History of total hip arthroplasty Social History household members: significant other Smoking Status: Former smoker alcohol intake: never substance use type: does not use ROS Constitutional Constitutional: Denies fatigue, fever(s), poor appetite, weight gain or weight loss Gastrointestinal Gastrointestinal: Denies belching, bloating, change in bowel habits, change in stool character, chewing difficulty, coffee ground emesis, constipation, cramping, diarrhea, dyspepsia, dysphagia, early satiety, excessive flatus, fecal incontinence, heartburn, hematemesis, hematochezia, hemorrhoids, loose stools, melena, nausea, odynophagia, rectal bleeding, tenesmus, vomiting or weight changes Physical Exam Const alert, oriented x3, no apparent distress and healthy appearing General Appearance: cooperative GI normal to inspection, nondistended, normoactive bowel sounds, soft to palpation, non-tender and non-distended Percussion: normal to percussion Rectal Exam: deferred Lab / Micro Data 03/12/25 09:15 03/12/25 09:15 Labs: Laboratory Results - last 24 hr 03/12/25 09:13: PT 67.8 H, INR 7.8 H* 03/12/25 09:15: WBC 15.7 H, RBC 1.64 L, Hgb 4.6 L*, Hct 15.1 L, MCV 92.1 D, MCH 28.0, MCHC 30.5 L, RDW Std Deviation 60.7 H, RDW Coeff of Raheem 19.6 H, Plt Count 200, MPV 11.7, Immature Gran % (Auto) 0.800, Neut % (Auto) 75.2 H, Lymph % (Auto) 14.2 L, Blanco % (Auto) 8.4, Eos % (Auto) 1.0, Baso % (Auto) 0.4, Absolute Neuts (auto) 11.8 H, Absolute Lymphs (auto) 2.24, Nucleated RBC % 0.7, Sodium 141, Potassium 3.7, Chloride 109 H, Carbon Dioxide 20.6, Anion Gap 12, BUN 43 H, Creatinine 1.28 H, Estim Creat Clear Calc 85.11, Est GFR (MDRD) Non-Af 62, B UN/Creatinine Ratio 33.3 H, Glucose 143 H, Calcium 7.9, Magnesium 1.8, Total Bilirubin 0.35, Direct Bilirubin 0.18, AST 18, ALT 16, Alkaline Phosphatase 29 L , Troponin T High Sens 24 H D, Total Protein 4.5 L, Albumin 2.8 L, Globulin 1.7 L 03/12/25 09:54: APTT 46.1 H, Blood Type O POSITIVE, Antibody Screen NEGATIVE, Crossmatch See Detail 03/12/25 11:55: PT Cancelled, INR Cancelled, Troponin T Hi Sens 2 Hr 23 H 03/12/25 13:39: PT 15.5 H, INR 1.2, Troponin T Hi Sens 4Hr 24 H Micro: Microbiology 03/12/25 09:40 Stool Stool Occult Blood (RACHEL) - Final Occult Blood Positive Imaging Radiology Impression Chest X-Ray 03/12/25 09:08 IMPRESSION: No active cardiopulmonary disease. Mild cardiomegaly. Reading Location: [place] [address] Abdomen/Pelvis CTA 03/12/25 09:44 IMPRESSION: 1. No evidence of active gastrointestinal hemorrhage. 2. No evidence of aneurysm. 3. Widely patent visceral arteries. 4. Atherosclerotic calcific disease and tortuosity of the aorta and iliac arteries. 5. Hepatic cysts. 6. Bilateral renal cysts. 7. Prostatomegaly. 8. Diverticulosis. 9. Cholelithiasis. 10. Postoperative changes of the lumbosacral spine. 11. 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 12. Other nonacute findings detailed above. Reading Location: [place] [address] Assessment & Plan Assessment/Plan (1) GI bleed: (2) Coagulopathy: (3) Acute blood loss anemia: PLAN: Plan 64-year-old male with multiple cardiovascular risk factors and significant acute pathology.? * Acute Upper Gastrointestinal Bleed likely due to Supratherapeutic Warfarin:? Patient presents with severe acute anemia (Hgb 4.6), markedly elevated INR (7.8), and reports melena for a week. This is the likely cause of the acute blood loss. He has been partially resuscitated in the ED with PRBCs, Vitamin K, PCC, and IV pantoprazole. * Recurrent Angina/Non-STEMI vs. Anemia-induced demand ischemia:?Patient has a history of STEMI and presents with active, classic anginal pain radiating to the right arm, feeling similar to his previous heart attack. While the previous workup on 03/09 was unremarkable, the current severe anemia (Hgb 4.6) significantly decreases myocardial oxygen supply, likely causing demand ischemia in this patient with underlying cardiac disease. * Worsening Congestive Heart Failure (CHF)/Volume Status:?With a history of diastolic CHF, the patient's current volume resuscitation and underlying anemia need careful management to avoid fluid overload. * Chronic Conditions:?PMHx of COPD, CRISTELA, morbid obesity, hypertension, A-fib requiring chronic anticoagulation.? Plan * EGD to identify and treat source of UGIB once INR is within acceptable range/bleeding is controlled. * ?Continue INR reversal with Vitamin K and PCC. Monitor INR closely. Determine long-term anticoagulation strategy post-bleed (e.g., bridging, restart warfarin vs. alternative NOAC depending on cardiology.. * Trend serial troponins and EKGs. Manage potential demand ischemia while Hgb is critically low. Goal Hgb for cardiac patients is generally >7 or >8. * Continue PRBC transfusions as ordered (3 units total). Monitor Hgb/Hct post- transfusion. Portions of this note were generated using voice recognition software ([employer]). I have reviewed the contents and every effort has been made to ensure accuracy; however, inadvertent errors in grammar, spelling, punctuation, or word choice may occur, that were not noted before signing the document and should not alter the intended clinical meaning. Charges/Coding Visit Charges Inpatient E&M: 56610 Init Hosp L3
[2025-03-12 21:07] LABS: Hematocrit 18.1 % (40-54); POSITIVE COUNT YES
[2025-03-12 21:14] LABS: Hemoglobin 5.8 g/dL (13.0-16.5)
[2025-03-12] MEDS: 0.9% Saline Lock 10 ML Syringe IV (21:22)
[2025-03-13] VITALS (20 sets, daily range): BP systolic 108–149; BP diastolic 51–90; PULSE 63–104; RESP 14–20; TEMP 36.5–37.2; O2SAT 9–100; BMI 46.8
[2025-03-13 06:41] LABS: Hematocrit 22.1 % (40-54); Hemoglobin 7.1 g/dL (13.0-16.5); Immature Granulocytes Count 0.080 X10^3/uL (0.0-0.0); Mean Corp Hgb Conc 32.1 g/dL (32-36); Mean Corpuscular Volume 88.8 fL (80-94); Mean Platelet Vol. 10.8 fl (6.2-12.0); NRBC Flagged by Analyzer 0.8 % (0-5); Platelet Count 156 K/mm3 (150-450); RBC Distribution Width CV 16.4 % (11.6-14.6); RBC Distribution Width SD 50.4 fl (35.1-43.9); Red Blood Count 2.49 M/mm3 (4.6-6.2); White Blood Count 11.8 K/mm3 (4.4-11.0)
[2025-03-13 06:51] LABS: Prothrombin Time (Protime)PT. 14.5 SECONDS (11.7-14.9)
[2025-03-13 06:58] LABS: Anion Gap 6 (7-18); BUN 32 mg/dL (4-19); BUN/Creat Ratio 26.4 RATIO (10-20); Calcium,Total 7.6 mg/dL (7.6-11.0); Carbon Dioxide 25.1 mmol/L (20.0-29.0); Chloride 112 mmol/L (96-106); Estimated Creatinine Clearance 97.53 ml/min (50-250); Glucose 95 mg/dL (70-99); Potassium 3.4 mmol/L (3.5-5.1)
--- NOTE | 2025-03-13 08:05 | PN.HOSP_ITS ---
Reason for Visit Chief Complaint: chest pain Subjective Subjective Feeling better. No further melena. Objective Data Objective Data Vital Signs: Vital Signs Temp Pulse Resp BP Pulse Ox O2 Del Method 36.9 C 92 15 137/72 H 96 Room Air 03/13/25 05:23 03/13/25 05:23 03/13/25 05:23 03/13/25 05:23 03/13/25 05:23 03/13/25 05:23 Oxygen Delivery Method Room Air Weight: 161.025 kg Body Mass Index (BMI) 46.8 Intake & Output: Intake and Output for Last 24 Hours 03/11/25 03/12/25 03/13/25 23:59 23:59 23:59 Intake Total 2731 / 2731 800 / 800 Output Total 425 / 425 500 / 500 Balance 2306 / 2306 300 / 300 Lab / Micro Data 03/13/25 09:40 03/13/25 06:30 Labs: Laboratory Results - last 24 hr 03/12/25 09:13: PT 67.8 H, INR 7.8 H* 03/12/25 09:15: WBC 15.7 H, RBC 1.64 L, Hgb 4.6 L*, Hct 15.1 L, MCV 92.1 D, MCH 28.0, MCHC 30.5 L, RDW Std Deviation 60.7 H, RDW Coeff of Raheem 19.6 H, Plt Count 200, MPV 11.7, Immature Gran % (Auto) 0.800, Neut % (Auto) 75.2 H, Lymph % (Auto) 14.2 L, [place] % (Auto) 8.4, Eos % (Auto) 1.0, Baso % (Auto) 0.4, Absolute Neuts (auto) 11.8 H, Absolute Lymphs (auto) 2.24, Nucleated RBC % 0.7, Sodium 141, Potassium 3.7, Chloride 109 H, Carbon Dioxide 20.6, Anion Gap 12, BUN 43 H, Creatinine 1.28 H, Estim Creat Clear Calc 85.11, Est GFR (MDRD) Non-Af 62, B UN/Creatinine Ratio 33.3 H, Glucose 143 H, Calcium 7.9, Magnesium 1.8, Total Bilirubin 0.35, Direct Bilirubin 0.18, AST 18, ALT 16, Alkaline Phosphatase 29 L , Troponin T High Sens 24 H D, Total Protein 4.5 L, Albumin 2.8 L, Globulin 1.7 L 03/12/25 09:50: Crossmatch See Detail 03/12/25 09:54: APTT 46.1 H, Blood Type O POSITIVE, Antibody Screen NEGATIVE, Crossmatch See Detail 03/12/25 11:55: PT Cancelled, INR Cancelled, Troponin T Hi Sens 2 Hr 23 H 03/12/25 13:39: PT 15.5 H, INR 1.2, Troponin T Hi Sens 4Hr 24 H 03/12/25 20:43: Hgb 5.8 L*, Hct 18.1 L 03/13/25 06:30: WBC 11.8 H, RBC 2.49 L, Hgb 7.1 L, Hct 22.1 L, MCV 88.8, MCH 28.5, MCHC 32.1 D, RDW Std Deviation 50.4 H, RDW Coeff of Raheem 16.4 H, Plt Count 156, MPV 10.8, Immature Gran % (Auto) 0.700, Neut % (Auto) 70.6 H, Lymph % (Auto) 17.5 L, [place] % (Auto) 9.2, Eos % (Auto) 1.7, Baso % (Auto) 0.3, Absolute Neuts (auto) 8.3 H, Absolute Lymphs (auto) 2.06, Nucleated RBC % 0.8, PT 14.5, INR 1.1, Sodium 143, Potassium 3.4 L, Chloride 112 H, Carbon Dioxide 25.1, Anion Gap 6 L, BUN 32 H, Creatinine 1.20, Estim Creat Clear Calc 97.53, Est GFR (MDRD) Non-Af 67, BUN/Creatinine Ratio 26.4 H, Glucose 95, Calcium 7.6 Micro: Microbiology 03/12/25 09:40 Stool Stool Occult Blood (RACHEL) - Final Occult Blood Positive Radiography Diagnostic Testing: Radiology Impression Chest X-Ray 03/12/25 09:08 IMPRESSION: No active cardiopulmonary disease. Mild cardiomegaly. Reading Location: [place] [address] Abdomen/Pelvis CTA 03/12/25 09:44 IMPRESSION: 1. No evidence of active gastrointestinal hemorrhage. 2. No evidence of aneurysm. 3. Widely patent visceral arteries. 4. Atherosclerotic calcific disease and tortuosity of the aorta and iliac arteries. 5. Hepatic cysts. 6. Bilateral renal cysts. 7. Prostatomegaly. 8. Diverticulosis. 9. Cholelithiasis. 10. Postoperative changes of the lumbosacral spine. 11. 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 12. Other nonacute findings detailed above. Reading Location: [place] [address] Physical Exam Const alert and no apparent distress Constitutional Narrative: up in chair. comfortable. Resp normal respiratory effort, no retractions, no use of accessory muscles and clear to auscultation bilaterally Cardio regular rate, regular rhythm, S1 normal heart sound and S2 normal heart sound GI normal to inspection, nondistended, normoactive bowel sounds, soft to palpation, non-tender and non-distended Neuro Sensorium / Orientation: awake and alert Assessment & Plan Assessment/Plan (1) Acute blood loss anemia: PLAN: Hemoglobin 4.6, down from 10.6 from the . Last available hemoglobin we have is from December 02, 2021 where was 15.3 at that time. Unclear what the patient's hemoglobin had been prior to the . The patient reports that he was having melena before that time. Patient being transfused 5 units of packed red blood cells. Will continue to monitor Likely secondary to a GI bleed. (2) GI bleed: PLAN: Suspect upper. Patient endorses using to leave per day. Patient received IV pantoprazole in the emergency room and will continue that for now. GI has been contacted and will be seeing the patient in consultation with tentative plan for endoscopy today. INR is to be rechecked as patient's INR was significantly high at 7.8 earlier today. He did receive medications to reverse that but GI informed the emergency room that if the INR is less than 7 that the patient could proceed with an upper endoscopy today. Hold warfarin and aspirin (3) Coagulopathy: PLAN: Resolved Secondary to warfarin, admission INR 7.8, now 1.1. Hold warfarin given GI bleed. (4) Chest pain: PLAN: with elevated troponins. Troponin elevatation are minimal and demand- associated given severe anemia. Suspect related with the anemia. Patient does have a history of stenting. EKG does not show any acute changes.\ Patient not a candidate for acute coronary intervention given his GI bleed and anemia. PLAN: Plan Hypertension: Waiting on medications to be reconciled. Obesity class III: BMI of 45.7 kg/m?. Complicates care and recovery Paroxysmal atrial fibrillation: Warfarin on hold given the GI bleed and the anemia. VTE prophylaxis with SCDs CODE STATUS: Verified with the patient. Patient wishes to be full code. Charges/Coding Visit Charges Inpatient E&M: 05303 Subs Hosp L2
[2025-03-13] MEDS: Pantoprazole Sodium 40 MG in 0.9% Normal Saline (100mL MB+) 100 ML 300 MG IV ×2 (08:36→22:33)
--- NOTE | 2025-03-13 10:29 | PCM.PRE.AN2 ---
ASA Classification* ASA Classification ASA Classification: 3 Assessment & Plan Anesthesia* Anesthesia Assessment Anesthesia Assessment: Discussed sedation and/or anesthesia options, risks, benefits, and alternatives with patient/parents/legal guardian/POA. Questions invited. The patient/parents/legal guardian/POA seems to understand and agrees to proceed with anesthesia plan. Reviewed the physical assessment, medical history, allergy history and patient home medications list prior to surgery/procedure/anesthetic and documented any changes. Performed airway and anesthesia risk assessments. Anesthesia Type Anesthesia Type: General History Source History Obtained from:: Patient and Chart Anesthesia Focused Assessment* Temperature: 97.9 F Pulse Rate: 87 Blood Pressure: 134/73 Respiratory Rate: 16 Pulse Ox: 98 Airway Assessment Mouth opens: >3 cm Mallampati Score: II Teeth Condition: Chipped/Broken and Missing Neck Range of motion (ROM): Full ROM Labs Anesthesia Preop lab: CBC WBC, (4.4-11.0) 11.8 K/mm3 H Today, 06:30 RBC, (4.6-6.2) 2.49 M/mm3 L Today, 06:30 Hgb, (13.0-16.5) 7.1 g/dL L Today, 06:30 Hct, (40-54) 22.1 % L Today, 06:30 Plt Count, (150-450) 156 K/mm3 Today, 06:30 CHEMISTRY Potassium, (3.5-5.1) 3.4 mmol/L L Today, 06:30 Sodium, (135-145) 143 mmol/L Today, 06:30 Magnesium, (1.5-2.2) 1.8 mg/dL 03/12/25, 09:15 BUN, (4-19) 32 mg/dL H Today, 06:30 Creatinine, (0.70-1.20) 1.20 mg/dL Today, 06:30 Glucose, (70-99) 95 mg/dL Today, 06:30 POC Glucose, (70-110) 118 mg/dL H 03/03/19, 11:06 COAG PT, (11.7-14.9) 14.5 SECONDS Today, 06:30 INR 2.4 05/18/20, 14:10 Pre-Assessment Diagnosis/Proposed Procedure Planned Operative Procedure(s): EGD Anesthesia History Anesthesia History - 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 When Was Last Pacemaker Check QUESTION #4 FULL TEXT: You/Your Family Experience fever (hyperthermia) with Anesthesia Last Oral Intake Last Oral intake: Last Oral Intake NPO since 00:01 03/13/25 08:39 Meds taken in AM with sips of No 03/13/25 08:39 water? Meds patient instructed to take am of surgery PONV PONV - director process engineering: PONV - director process engineering Female HX of Motion Sickness HX of N/V After Surgery Non-Smoker Duration of Surgery greater than 60 minutes Number of Risk Factors PONV Score Height & Weight Height & Weight: Anesthesia: Height & Weight Height 6 ft 1 in 03/13/25 08:39 Weight: 161.025 kg 03/13/25 08:39 Body Mass Index (BMI) 46.8 03/13/25 08:39 Respiratory Assessment Respiratory Assessment - director process engineering: Respiratory Tract Infection Hx - director process engineering Hx Respiratory Tract Infection No 03/13/25 08:41 STOP Sleep Apnea STOP Sleep Apnea - director process engineering: STOP Sleep Apnea - director process engineering Hx Hypertension Yes 03/12/25 14:36 Hx Sleep Apnea Yes 03/12/25 14:36 CPAP No 03/12/25 14:36 BIPAP No 03/12/25 14:36 Do you snore loudly (louder than talking or can be heard Do you often feel tired/ fatigued/ sleepy during daytime? Has anyone observed you stop breathing during sleep? STOP Results Positive 03/12/25 14:36 QUESTION #5 FULL TEXT : Do you snore loudly (louder than talking or can be heard through closed doors)? 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 Specify any problems Hx of Preganancy in last 3 N/A 03/12/25 14:36 Months Nurse Filling Out Transfusion MEMMONS 03/12/25 14:36 & Questions: Date: 03/12/25 03/12/25 14:36 Time: 14:40 03/12/25 14:36 Patient unable to answer at this time (ie. confused, unrespo /Reproduction History /Reproductive History - director process engineering: /Reproductive Hx- director process engineering Hx Now Gestational Age (in weeks): EDC: Hx Hx Para Hx Section SAB Does the father of the baby or his family experience fever w Father of the baby Malignant Hypertension history comment Active Medications Active Medications: Current Medications Generic Name Dose Route Start Last Admin Trade Name Freq PRN Reason Stop Dose Admin Acetaminophen 650 mg 03/12/25 14:34 Acetaminophen 325 Mg Tablet PO Q6H PRN PRN Pain 1-10 Or Fever >100.7 Pantoprazole Sodium 40 mg/ 100 mls @ 300 mls/hr 03/12/25 22:00 03/13/25 09:00 Sodium Chloride IV Infused Q12 YONATAN Infusion Sodium Chloride 250 mls @ 15 mls/hr 03/12/25 14:42 IV .[id number] PRN Saline Flush Sodium Chloride 250 mls @ 15 mls/hr 03/12/25 14:42 IV .[id number] PRN Additional IVPB Infusion Morphine Sulfate 2 - 4 mg 03/12/25 14:34 Morphine 2 Mg/Ml Syringe IV Q3H PRN PRN Pain Score 6-10 Morphine Sulfate 2 - 4 mg 03/12/25 14:36 Morphine 4 Mg/Ml Syringe IV Q3H PRN PRN Pain Score 6-10 Ondansetron HCl 4 mg 03/12/25 14:34 Ondansetron 4 Mg/2 Ml Vial IV Q8H PRN PRN NAUSEA/VOMITING Oxycodone HCl 2.5 - 5 mg 03/12/25 14:34 Oxycodone 5 Mg Tablet PO Q4H PRN PRN Pain Score 4-10 Sodium Chloride 10 - 40 ml 03/12/25 14:42 03/12/25 21:22 0.9% Saline Lock 10 Ml Syringe IV 20 ml UD PRN Administration SALINE FLUSH PFSH Medical History Spinal cord stimulator status Varicose veins of both legs with edema Ulcer of left lower extremity with fat layer exposed History of ST elevation myocardial infarction (STEMI) (03/03/19) Inability to ambulate due to multiple joints Acute gout Wears glasses Ambulates with cane Arthritis History of Walker's palsy Nicotine vapor product user Shortness of breath on exertion History of edema History of steroid therapy Atherosclerosis of coronary artery of [place] heart without angina pectoris Diastolic congestive heart failure Cardiac dysrhythmia Paroxysmal atrial fibrillation Diastolic dysfunction with acute on chronic heart failure Paroxysmal atrial flutter Cardiopulmonary arrest (08/20/18) History of deep vein thrombosis (DVT) of lower extremity Nicotine dependence Chronic pain Obstructive sleep apnea COPD (chronic obstructive pulmonary disease) Failed back syndrome of lumbar spine Degeneration of intervertebral disc of lumbosacral region Sacrococcygeal disorders, not elsewhere classified Morbid obesity Sacroiliitis, not elsewhere classified Essential (primary) hypertension Home Medications ?Medication ?Instructions ?Recorded ?Last Taken ?Type fluticasone propionate 50 1 spray NASAL DAILY PRN PRN 09/27/18 1 Week Ago History mcg/actuation nasal Allergies ~11/24/21 spray,suspension furosemide 40 mg tablet 40 mg PO BID FLUID OVERLOAD #60 09/28/18 12/01/21 Rx tabs aspirin 81 mg tablet,delayed 81 mg PO DAILY@0800 [facility] 03/05/19 03/11/25 Rx release atorvastatin 80 mg tablet 80 mg PO QHS HIGH CHOLESTEROL #30 03/05/19 12/01/21 Rx tabs albuterol sulfate 90 mcg/actuation 1 - 2 puff inhalation Q4H PRN PRN 02/19/20 1 Week Ago History aerosol inhaler Asthma ~11/24/21 carvedilol 6.25 mg tablet 6.25 mg PO BID heart 02/19/20 03/11/25 History amlodipine 5 mg tablet 5 mg PO DAILY HYPERTENSION 12/01/21 05/09/22 History hydralazine 50 mg tablet 50 mg PO BID HYPERTENSION 12/01/21 05/09/22 History potassium chloride 20 mEq 20 meq PO DAILY potassium 12/01/21 03/11/25 History tablet,extended release(part/cryst) (Klor-Con M) sildenafil (pulm.hypertension) 20 20 mg PO TID PRN HTN 12/01/21 Unknown History mg tablet trazodone 50 mg tablet 50 mg PO QHS PRN Sleep 12/01/21 Unknown History allopurinol 100 mg tablet 100 mg PO DAILYCM gout 30 days #30 12/02/21 03/11/25 Rx tabs lisinopril 40 mg tablet 40 mg PO DAILY blood pressure 12/28/21 03/11/25 History warfarin 4 mg tablet 4 mg PO SUMOWETHSA blood thinner 12/28/21 05/04/22 History warfarin 4 mg tablet 6 mg PO TUFR blood thinner 12/28/21 03/11/25 History sotalol 80 mg tablet 80 mg PO BID bp,heart #180 tabs 03/24/23 03/11/25 Rx cholecalciferol (vitamin D3) 50 50 mcg PO DAILY GENERAL [facility]ALTH 10/26/23 Unknown History mcg (2,000 unit) capsule (Vitamin D3) clonidine HCl 0.1 mg tablet 0.1 mg PO BID blood pressure 10/26/23 03/11/25 History fluticasone 250 mcg-salmeterol 50 1 ea inhalation BID SOB AND 10/26/23 Unknown History mcg/dose blistr powdr for WHEEZING inhalation lidocaine 4 % topical cream 1 applic topical TID PRN PRN pain 10/26/23 Unknown History oxycodone-acetaminophen 7.5 mg-325 1 tab PO 4X/DAY PRN pain 12/19/23 Unknown History mg tablet cephalexin 500 mg capsule 500 mg PO BID infection in hip 03/12/25 03/11/25 History Allergy/AdvReac Type Severity Reaction Status Date / Time Penicillins Allergy Hives Verified 03/12/25 09:06 pregabalin (From Lyrica) Allergy Hives Verified 03/12/25 09:06 red dye Allergy Angioedema Verified 03/12/25 09:06 Family History Mother CVA (cerebral vascular accident) Father , Murdered per patient No problems noted. Surgical History History of back surgery History of coronary artery stent placement (03/03/19) History of total knee arthroplasty History of total hip arthroplasty Social History household members: significant other Smoking Status: Former smoker alcohol intake: never substance use type: does not use Review of Systems (Anesthesia) ROS Narrative System reviewed and no additional complaints, except as documented.
[2025-03-13] MEDS: Lactated Ringers 500 ML IV (10:36)
[2025-03-13 10:37] LABS: Hematocrit 23.1 % (40-54); Hemoglobin 7.4 g/dL (13.0-16.5)
[2025-03-13] MEDS: Lidocaine 1% (5 ml sdv) 5 ML Vial IV (10:46)
--- NOTE | 2025-03-13 11:09 | OP.EGD_ITS ---
Patient Name: Vincent Ruelas Procedure Date: 03/13/2025 10:03 AM Date of : 1960 Age: 64 Procedure: Upper GI endoscopy Indications: Iron deficiency anemia, Suspected upper gastrointestinal bleeding Providers: Juan Gar DO Medicines: Monitored Anesthesia Care Patient Profile: This is a 64 year old male. Refer to note in patient chart for documentation of history and physical. Patient has symptoms. Complications: No immediate complications. Procedure: Pre-Anesthesia Assessment: - Prior to the procedure, a History and Physical was performed, and patient medications and allergies were reviewed. The patient is competent. The risks and benefits of the procedure and the sedation options and risks were discussed with the patient. All questions were answered and informed consent was obtained. Patient identification and proposed procedure were verified by the physician in the pre-procedure area. Mental Status Examination: alert and oriented. Airway Examination: normal oropharyngeal airway and neck mobility. Respiratory Examination: clear to auscultation. CV Examination: normal. Prophylactic Antibiotics: The patient does not require prophylactic antibiotics. Prior Anticoagulants: The patient has taken no anticoagulant or antiplatelet agents. ASA Grade Assessment: II - A patient with mild systemic disease. After reviewing the risks and benefits, the patient was deemed in satisfactory condition to undergo the procedure. The anesthesia plan was to use monitored anesthesia care (MAC). Immediately prior to administration of medications, the patient was re-assessed for adequacy to receive sedatives. The heart rate, respiratory rate, oxygen saturations, blood pressure, adequacy of pulmonary ventilation, and response to care were monitored throughout the procedure. The physical status of the patient was re-assessed after the procedure. After obtaining informed consent, the endoscope was passed under direct vision. Throughout the procedure, the patient's blood pressure, pulse, and oxygen saturations were monitored continuously. The Endoscope was introduced through the mouth, and advanced to the fourth part of the duodenum. Small bowel enteroscopy was deemed necessary. The upper GI endoscopy was accomplished without difficulty. The patient tolerated the procedure well. Scope In: 11:02:28 AM Scope Out: 11:04:43 AM Total Procedure Duration Time 0 hours 2 minutes 15 seconds Findings: The examined esophagus was normal. No gross lesions were noted in the entire examined stomach. Mildly erythematous mucosa without active bleeding and with no stigmata of bleeding was found in the entire duodenum. Impression: - Normal esophagus. - No gross lesions in the entire stomach. - Erythematous duodenopathy. - No specimens collected. Recommendation: - Return patient to [facility] for ongoing care. - Resume previous diet. - Continue present medications. - Await pathology results. - Colonoscopy and possible capsule endoscopy Procedure Code(s): --- Professional --- 47843, Small intestinal endoscopy, enteroscopy beyond second portion of duodenum, not including ileum; diagnostic, including collection of specimen(s) by brushing or washing, when performed (separate procedure) CPT copyright 2021 [employer]. All rights reserved. The codes documented in this report are preliminary and upon electric furnace operator review may be revised to meet current compliance requirements. Juan Gar DO 03/13/2025 11:08:29 AM This report has been signed electronically. Number of Addenda: 0 Note Initiated On: 03/13/2025 10:03 AM
--- NOTE | 2025-03-13 11:09 | OP.PROVAT_ITS ---
03/13/2025 Gagandeep Barclay Do Re : Upper GI endoscopy procedure for Vincent Ruelas Dear Dr. Barcaly This procedure was performed on February. My impressions and recommendations are as follows: Impressions : - Normal esophagus. - No gross lesions in the entire stomach. - Erythematous duodenopathy. - No specimens collected. Recommendations : - Return patient to [facility] for ongoing care. - Resume previous diet. - Continue present medications. - Await pathology results. - Colonoscopy and possible capsule endoscopy My findings are described in the full procedure note, which is enclosed. If I can be of further assistance, please feel free to contact me at . Sincerely, Juan Gar, 03/13/2025 11:08:29 AM This report has been signed electronically.
--- NOTE | 2025-03-13 11:09 | PCM.PN.BLA ---
Progress Note Patient underwent upper endoscopy and there was no etiology of patient's acute blood loss anemia. Physical Exam Const alert, oriented x3, no apparent distress and healthy appearing General Appearance: cooperative GI normal to inspection, nondistended, normoactive bowel sounds, soft to palpation, non-tender and non-distended Percussion: normal to percussion Rectal Exam: deferred Assessment & Plan Assessment/Plan (1) GI bleed: (2) Acute blood loss anemia: PLAN: Patient will need a colonoscopy. I will put the orders in for today for the patient to have colonoscopy tomorrow. Visit Charges Inpatient E&M: 43190 Subs Hosp L3
--- NOTE | 2025-03-13 11:36 | PCM.POST.ANE ---
Anesthesia: Postop Eval I Current Vital Signs Temperature: 97.8 F Pulse Rate: 83 Blood Pressure: 118/75 Respiratory Rate: 14 Pulse Ox: 100 Oxygen Delivery Method: Non-Rebreather (The patient is wheezing (smoker stopped 2 weeks ago) Duoneb ordered in pacu ) Oxygen Flow Rate (L/min): 6 Assessment Airway patent: Yes Spontaneous unlabored respirations: Yes Mental status: Awake and Calm nausea: No Vomiting: No Anesthesia Complication: No Fluid Hydration Crystalloid volume administer (ml): 500 Total IV fluid infused: 500 Progress Note Anesthesia document: Postop Eval 1 completed: Yes
--- NOTE | 2025-03-13 12:02 | SUR.PHASEI ---
DR. GALARZA MADE AWARE THAT PATIENTS HEART RHYTHM APPEARS TO BE MOBITZ 2. HE SAID THAT HE IS STABLE AND OK TO SEND BACK TO THE FLOOR. PER MARIFER Nguyen
--- NOTE | 2025-03-13 12:10 | PCM.POSTANE2 ---
Anesthesia Postop Eval I Sum Postop Eval Completion status Anesthesia document: Postop Eval 1 completed: Yes Anesthesia Postop Eval I Summary Anesthesia Postop Eval I Summary: Anesthesia Postop Eval I: Assessment Summary Airway patent Yes 03/13/25 11:38 Spontaneous unlabored Yes 03/13/25 11:38 respirations Mental status Awake,Calm 03/13/25 11:38 nausea No 03/13/25 11:38 Vomiting No 03/13/25 11:38 Anesthesia Postop Eval I: Fluid Summary Crystalloid volume administer 500 03/13/25 11:38 (ml) Colloids volume administered ( ml) Blood Product volume administered (ml) Total IV fluid infused 500 03/13/25 11:38 Anesthesia Postop Eval I: Summary Notes Anesthesia Complication No 03/13/25 11:38 Anesthesia Complication Comment: Post-operative progress note Anesthesia: Postop Eval II Evaluation Mental status: Awake and Calm Pain Level: 1 nausea: No Vomiting: No Complications Anesthesia Complication: No
[2025-03-13] MEDS: FLU VACCINE HIGH DOSE 25-26(65YR UP) 180 MCG/0.5 ML SYRINGE IM (12:40)
[2025-03-13] MEDS: Polyethylene Glycol 3350 BOWEL PREP PO (15:57)
[2025-03-13 16:27] LABS: Hematocrit 24.2 % (40-54); Hemoglobin 7.7 g/dL (13.0-16.5)
[2025-03-13] MEDS: 0.9% Saline Lock 10 ML Syringe IV (20:36)
--- NOTE | 2025-03-13 22:52 | NURSING ---
Patient is receiving bowel prep tonight. Bowel prep was finished but stool is still black. Dr. Gar notified and ordered another bottle of prep. Patient refused and said he does not want anything else that is going to make him have bowel movements. Patient educated on importance of a thorough prep but continues to refuse. Will notify .
[2025-03-14] VITALS (18 sets, daily range): BP systolic 107–143; BP diastolic 53–83; PULSE 65–89; RESP 16–20; TEMP 36.4–36.9; O2SAT 94–100
--- NOTE | 2025-03-14 06:00 | NURSING ---
Patient still not clear this AM for colonoscopy. This RN recommended enemas per Dr. Francis orders and patient refused. made aware.
--- NOTE | 2025-03-14 06:34 | EKG12_ITS ---
Test Reason : Blood Pressure : */* mmHG Vent. Rate : 63 BPM Atrial Rate : 63 BPM P-R Int : 232 ms QRS Dur : 90 ms QT Int : 230 ms P-R-T Axes : 30 52 173 degrees QTcB Int : 235 ms Sinus rhythm with marked sinus arrhythmia with 1st degree A-V block -blocked PAC's Possible Inferior infarct , age undetermined Abnormal ECG When compared with ECG of 12-Mar-2025 12:26, MANUAL COMPARISON REQUIRED DATA IS UNCONFIRMED Poor quality Confirmed by Sam Belle ([id number]), marketing editor SAMANTHA MASTERS ([id number]) on 03/14/2025 12:59:48 PM Referred By: Confirmed By: Sam Belle
--- NOTE | 2025-03-14 06:44 | EKG12_ITS ---
Test Reason : CP Blood Pressure : */* mmHG Vent. Rate : 61 BPM Atrial Rate : * BPM P-R Int : * ms QRS Dur : 90 ms QT Int : 436 ms P-R-T Axes : * 53 158 degrees QTcB Int : 438 ms Sinus rhythm Blocked Premature atrial complexes Possible Inferior infarct , age undetermined T wave abnormality, consider lateral ischemia Abnormal ECG When compared with ECG of 14-Mar-2025 06:42, MANUAL COMPARISON REQUIRED DATA IS UNCONFIRMED Confirmed by Sam Belle ([id number]), dictionary editor SAMATNHA MASTERS ([id number]) on 03/14/2025 1:02:53 PM Referred By: Confirmed By: Sam Belle
--- NOTE | 2025-03-14 07:50 | PCM.PN.HOSP ---
Reason for Visit Chief Complaint: chest pain Subjective Subjective Hungry. Couldn't tolerate the complete prep. Noted bradycardia on telemetry. Objective Data Objective Data Vital Signs: Vital Signs Temp Pulse Resp BP Pulse Ox O2 Del Method O2 Flow Rate 36.7 C 83 18 140/53 H 94 Room Air 6 03/14/25 05:50 03/14/25 05:50 03/14/25 05:50 03/14/25 05:50 03/14/25 05:50 03/14/25 05:57 03/13/25 11:38 Oxygen Flow Rate (L/min) 6 Oxygen Delivery Method Room Air Weight: 161.025 kg Body Mass Index (BMI) 46.8 Intake & Output: Intake and Output for Last 24 Hours 03/12/25 03/13/25 03/14/25 23:59 23:59 23:59 Intake Total 2731 / 2731 4150 / 4150 0 / 0 Output Total 425 / 425 1750 / 1750 300 / 300 Balance 2306 / 2306 2400 / 2400 -300 / -300 Lab / Micro Data 03/14/25 07:30 03/14/25 07:30 Labs: Laboratory Results - last 24 hr 03/12/25 09:50: Crossmatch See Detail 03/13/25 09:40: Hgb 7.4 L, Hct 23.1 L 03/13/25 16:20: Hgb 7.7 L, Hct 24.2 L Micro: Microbiology 03/12/25 09:40 Stool Stool Occult Blood (RACHEL) - Final Occult Blood Positive Physical Exam Const alert and no apparent distress Constitutional Narrative: up in chair. non-toxic. afebrile. HEENT head/scalp atraumatic and moist oral mucous membranes Resp normal respiratory effort, no retractions, no use of accessory muscles and clear to auscultation bilaterally Cardio regular rate, regular rhythm, S1 normal heart sound and S2 normal heart sound GI normal to inspection, nondistended, normoactive bowel sounds, soft to palpation, non-tender and non-distended Extremity normal to inspection and full ROM Neuro Sensorium / Orientation: awake and alert Assessment & Plan Assessment/Plan (1) Acute blood loss anemia: PLAN: Hemoglobin 4.6, down from 10.6 from the . Last available hemoglobin we have is from December 02, 2021 where was 15.3 at that time. Unclear what the patient's hemoglobin had been prior to the . The patient reports that he was having melena before that time. Patient being transfused 5 units of packed red blood cells. Will continue to monitor Likely secondary to a GI bleed. (2) GI bleed: PLAN: Suspect upper. Patient endorses using to leave per day. Patient received IV pantoprazole in the emergency room and will continue that for now. Hold warfarin and aspirin EGD on 03/13: normal esophagus, no gross lesions in the stomach. Erythematous duodenopathy. Colonoscopy next. (3) Coagulopathy: PLAN: Resolved Secondary to warfarin, admission INR 7.8, now 1.1. Hold warfarin given GI bleed. (4) Chest pain: PLAN: resolved. elevated troponins. Troponin elevatation are minimal and demand-associated given severe anemia. Suspect related with the anemia. Patient does have a history of stenting. EKG does not show any acute changes.\ Patient not a candidate for acute coronary intervention given his GI bleed and anemia. PLAN: Plan Hypertension: continue amlodipine, clonidine, hydralazine and lisinopril Obesity class III: BMI of 45.7 kg/m?. Complicates care and recovery Paroxysmal atrial fibrillation: Warfarin on hold given the GI bleed and the anemia. On carvedilol and sotalol. hyperuricemia: no active gout. continue allopurinol CAD: h/o PCI to distal RCA on 03/03/19. ASA on hold. VTE prophylaxis with SCDs CODE STATUS: Verified with the patient. Patient wishes to be full code. Charges/Coding Visit Charges Inpatient E&M: 22393 Subs Hosp L2
[2025-03-14 08:16] LABS: Hematocrit 21.3 % (40-54); Hemoglobin 6.9 g/dL (13.0-16.5); Immature Granulocytes Count 0.040 X10^3/uL (0.0-0.0); Mean Corp Hgb Conc 32.4 g/dL (32-36); Mean Corpuscular Volume 88.8 fL (80-94); Mean Platelet Vol. 11.4 fl (6.2-12.0); NRBC Flagged by Analyzer 0.6 % (0-5); Platelet Count 157 K/mm3 (150-450); RBC Distribution Width CV 16.7 % (11.6-14.6); RBC Distribution Width SD 52.9 fl (35.1-43.9); Red Blood Count 2.40 M/mm3 (4.6-6.2); White Blood Count 10.3 K/mm3 (4.4-11.0)
[2025-03-14 08:32] LABS: Prothrombin Time (Protime)PT. 15.0 SECONDS (11.7-14.9)
[2025-03-14 08:33] LABS: Partial Thromboplast Time 30.4 Seconds (24.1-36.2)
[2025-03-14 09:05] LABS: AST(SGOT) 25 U/L (<=37); Alanine Aminotransfer ALT/SGPT 17 U/L (<=46); Albumin, Serum 2.7 g/dL (3.4-4.8); Alkaline Phosphatase 39 U/L (40-129); Anion Gap 7 (7-18); BUN 16 mg/dL (4-19); BUN/Creat Ratio 15.3 RATIO (10-20); Bilirubin, Direct 0.30 mg/dL (0.00-0.30); Calcium,Total 7.6 mg/dL (7.6-11.0); Carbon Dioxide 24.3 mmol/L (20.0-29.0); Chloride 111 mmol/L (96-106); Estimated Creatinine Clearance 109.38 ml/min (50-250); Globulin 2.4 g/dL (2.2-4.2); Glucose 88 mg/dL (70-99); Potassium 3.3 mmol/L (3.5-5.1)
--- NOTE | 2025-03-14 10:05 | CASEMGMT ---
Social Work Face to Face with pt for initial transition planning/care coordination assessment. SW introduced self and role at [facility], pt voices understanding and consents to assessment. Pt is A&O x4 and answers all questions appropriately at this time. Admitting Dx: LIZZ METCALF Primary Care Doctor: Dr. Barclay Speciality doctors: Cardio- Dr. Joyce, pain management in [facility] Insurance: [employer] Medicare Pharmacy: Patient utilizes [facility] in [place] Advanced directives: no, provided the patient information LNOK:. 6 children that live in [place] and [place] Living Situation: Patient lives at home with girlfriend. There are 4 steps into the home. He has cousins that help him if needed. He uses a cane at home in the community. He uses his walker if needed. ADL's/Prior level of functioning: independent Transportation: Patient still drives. DME: cane, [place], [place], [facility] shelter/home health history: no NH history, HH prior-unknown agency Support/Community Services: [facility] Health: none Substance abuse history: none Assessment: Patient lives at home with girlfriend. There are 4 steps into the home. He has cousins that help him if needed. He uses a cane at home in the community. He uses his walker if needed. PLAN: To be determined. JENN Villar
[2025-03-14] MEDS: Pantoprazole Sodium 40 MG in 0.9% Normal Saline (100mL MB+) 100 ML 300 MG IV ×2 (10:07→22:03)
[2025-03-14] MEDS: Lactated Ringers 1,000 ML 15 ML IV (11:23)
--- NOTE | 2025-03-14 11:35 | PCM.PRE.AN2 ---
ASA Classification* ASA Classification ASA Classification: 3 Assessment & Plan Anesthesia* Anesthesia Assessment Anesthesia Assessment: Discussed sedation and/or anesthesia options, risks, benefits, and alternatives with patient/parents/legal guardian/POA. Questions invited. The patient/parents/legal guardian/POA seems to understand and agrees to proceed with anesthesia plan. Reviewed the physical assessment, medical history, allergy history and patient home medications list prior to surgery/procedure/anesthetic and documented any changes. Performed airway and anesthesia risk assessments. Anesthesia Type Anesthesia Type: MAC History Source History Obtained from:: Patient and Chart Anesthesia Focused Assessment* Temperature: 97.5 F Pulse Rate: 65 Blood Pressure: 143/81 Respiratory Rate: 18 Pulse Ox: 97 Oxygen Delivery Method: Room Air Oxygen Flow Rate (L/min): 6 Airway Assessment Mouth opens: >3 cm Mallampati Score: IV Teeth Condition: Missing (Patient has several missing teeth. Rest are tight.) Neck Range of motion (ROM): Limited ROM (Severe Restriction) Labs Anesthesia Preop lab: CBC WBC, (4.4-11.0) 10.3 K/mm3 Today, 07:30 RBC, (4.6-6.2) 2.40 M/mm3 L Today, 07:30 Hgb, (13.0-16.5) 6.9 g/dL L Today, 07:30 Hct, (40-54) 21.3 % L Today, 07:30 Plt Count, (150-450) 157 K/mm3 Today, 07:30 CHEMISTRY Potassium, (3.5-5.1) 3.3 mmol/L L Today, 07:30 Sodium, (135-145) 143 mmol/L Today, 07:30 Magnesium, (1.5-2.2) 1.8 mg/dL 03/12/25, 09:15 BUN, (4-19) 16 mg/dL Today, 07:30 Creatinine, (0.70-1.20) 1.07 mg/dL Today, 07:30 Glucose, (70-99) 88 mg/dL Today, 07:30 POC Glucose, (70-110) 118 mg/dL H 03/03/19, 11:06 COAG PT, (11.7-14.9) 15.0 SECONDS H Today, 07:30 INR 2.4 05/18/20, 14:10 Pre-Assessment Diagnosis/Proposed Procedure Planned Operative Procedure(s): Colonoscopy Anesthesia History Anesthesia History - drag sawyer: Anesthesia History - drag sawyer Hx Hospitalization No 06/04/21 10:24 Any Problems With Anesthesia No 03/13/25 23:33 Cholinesterase deficiency No 03/13/25 23:33 You/Your Family Experience No 03/13/25 23:33 fever (hyperthermia) with Relationship Recent Exposure to Contagious No 03/13/25 23:33 Disease Does patient have nerve Yes 03/13/25 23:33 stimulator Patient instructed to have Pt has remote with 03/13/25 23:33 device shut off --Does patient have Pacemaker No 03/13/25 23:33 or ICD? When Was Last Pacemaker Check QUESTION #4 FULL TEXT: You/Your Family Experience fever (hyperthermia) with Anesthesia Last Oral Intake Last Oral intake: Last Oral Intake NPO since 00:01 03/13/25 23:33 Meds taken in AM with sips of No 03/13/25 23:33 water? Meds patient instructed to take am of surgery PONV PONV - drag sawyer: PONV - drag sawyer Female HX of Motion Sickness HX of N/V After Surgery Non-Smoker Duration of Surgery greater than 60 minutes Number of Risk Factors PONV Score Height & Weight Height & Weight: Anesthesia: Height & Weight Height 6 ft 1 in 03/14/25 08:30 Weight: 161.025 kg 03/14/25 08:30 Body Mass Index (BMI) 46.8 03/13/25 23:33 Respiratory Assessment Respiratory Assessment - drag sawyer: Respiratory Tract Infection Hx - drag sawyer Hx Respiratory Tract Infection No 03/13/25 23:33 STOP Sleep Apnea STOP Sleep Apnea - drag sawyer: STOP Sleep Apnea - drag sawyer Hx Hypertension Yes 03/12/25 14:36 Hx Sleep Apnea Yes 03/13/25 12:03 CPAP No 03/12/25 14:36 BIPAP No 03/12/25 14:36 Do you snore loudly (louder than talking or can be heard Do you often feel tired/ fatigued/ sleepy during daytime? Has anyone observed you stop breathing during sleep? STOP Results Positive 03/12/25 14:36 QUESTION #5 FULL TEXT : Do you snore loudly (louder than talking or can be heard through closed doors)? 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 Specify any problems Hx of Preganancy in last 3 N/A 03/12/25 14:36 Months Nurse Filling Out Transfusion MEMMONS 03/12/25 14:36 & Questions: Date: 03/12/25 03/12/25 14:36 Time: 14:40 03/12/25 14:36 Patient unable to answer at this time (ie. confused, unrespo /Reproduction History /Reproductive History - drag sawyer: /Reproductive Hx- drag sawyer Hx Now Gestational Age (in weeks): EDC: Hx Hx Para Hx Section SAB Does the father of the baby or his family experience fever w Father of the baby Malignant Hypertension history comment Active Medications Active Medications: Current Medications Generic Name Dose Route Start Last Admin Trade Name Freq PRN Reason Stop Dose Admin Acetaminophen 650 mg 03/12/25 14:34 03/13/25 22:34 Acetaminophen 325 Mg Tablet PO 650 mg Q6H PRN PRN Administration Pain 1-10 Or Fever >100.7 Allopurinol 100 mg 03/14/25 08:00 [facility] Amlodipine Besylate 5 mg 03/14/25 10:00 Amlodipine 5 Mg Tablet PO DAILY [facility] Protocol Atorvastatin Calcium 80 mg 03/14/25 22:00 Atorvastatin Calcium 80 Mg Tablet PO QHS [facility] Carvedilol 6.25 mg 03/14/25 08:00 Car[facility]ilol 6.25 Mg [facility] Protocol Clonidine 0.1 mg 03/14/25 10:00 Clonidine Hcl 0.1 Mg Tablet PO BID [facility] Protocol Hydralazine HCl 50 mg 03/14/25 10:00 Hydralazine 50 Mg Tablet PO BID [facility] Protocol Pantoprazole Sodium 40 mg/ 100 mls @ 300 mls/hr 03/12/25 22:00 03/14/25 10:33 Sodium Chloride IV Infused Q12 YONATAN Infusion Sodium Chloride 250 mls @ 15 mls/hr 03/12/25 14:42 IV .[id number] PRN Saline Flush Sodium Chloride 250 mls @ 15 mls/hr 03/12/25 14:42 IV .[id number] PRN Additional IVPB Infusion Lactated Ringer's 1,000 mls @ 15 mls/hr 03/14/25 11:30 03/14/25 11:23 IV 15 mls/hr .Q48H YONATAN Administration Lisinopril 40 mg 03/14/25 10:00 Lisinopril 40 Mg Tablet PO DAILY [facility] Protocol Morphine Sulfate 2 - 4 mg 03/12/25 14:34 Morphine 2 Mg/Ml Syringe IV Q3H PRN PRN Pain Score 6-10 Morphine Sulfate 2 - 4 mg 03/12/25 14:36 Morphine 4 Mg/Ml Syringe IV Q3H PRN PRN Pain Score 6-10 Ondansetron HCl 4 mg 03/12/25 14:34 Ondansetron 4 Mg/2 Ml Vial IV Q8H PRN PRN NAUSEA/VOMITING Oxycodone HCl 2.5 - 5 mg 03/12/25 14:34 Oxycodone 5 Mg Tablet PO Q4H PRN PRN Pain Score 4-10 Sodium Chloride 10 - 40 ml 03/12/25 14:42 03/13/25 20:36 0.9% Saline Lock 10 Ml Syringe IV 20 ml UD PRN Administration SALINE FLUSH Sotalol HCl 80 mg 03/14/25 10:00 Sotalol Hydrochloride 80 Mg Tablet PO BID [facility] Protocol Trazodone HCl 50 mg 03/14/25 07:51 Trazodone 50 Mg Tablet PO QHS PRN SLEEP PFSH Medical History Spinal cord stimulator status Varicose veins of both legs with edema Ulcer of left lower extremity with fat layer exposed History of ST elevation myocardial infarction (STEMI) (03/03/19) Inability to ambulate due to multiple joints Acute gout Wears glasses Ambulates with cane Arthritis History of Walker's palsy Nicotine vapor product user Shortness of breath on exertion History of edema History of steroid therapy Atherosclerosis of coronary artery of [place] heart without angina pectoris Diastolic congestive heart failure Cardiac dysrhythmia Paroxysmal atrial fibrillation Diastolic dysfunction with acute on chronic heart failure Paroxysmal atrial flutter Cardiopulmonary arrest (08/20/18) History of deep vein thrombosis (DVT) of lower extremity Nicotine dependence Chronic pain Obstructive sleep apnea COPD (chronic obstructive pulmonary disease) Failed back syndrome of lumbar spine Degeneration of intervertebral disc of lumbosacral region Sacrococcygeal disorders, not elsewhere classified Morbid obesity Sacroiliitis, not elsewhere classified Essential (primary) hypertension Home Medications ?Medication ?Instructions ?Recorded ?Last Taken ?Type fluticasone propionate 50 1 spray NASAL DAILY PRN PRN 09/27/18 1 Week Ago History mcg/actuation nasal Allergies ~11/24/21 spray,suspension furosemide 40 mg tablet 40 mg PO BID FLUID OVERLOAD #60 09/28/18 12/01/21 Rx tabs aspirin 81 mg tablet,delayed 81 mg PO DAILY@0800 [facility] 03/05/19 03/11/25 Rx release atorvastatin 80 mg tablet 80 mg PO QHS HIGH CHOLESTEROL #30 03/05/19 12/01/21 Rx tabs albuterol sulfate 90 mcg/actuation 1 - 2 puff inhalation Q4H PRN PRN 02/19/20 1 Week Ago History aerosol inhaler Asthma ~11/24/21 carvedilol 6.25 mg tablet 6.25 mg PO BID heart 02/19/20 03/11/25 History amlodipine 5 mg tablet 5 mg PO DAILY HYPERTENSION 12/01/21 05/09/22 History hydralazine 50 mg tablet 50 mg PO BID HYPERTENSION 12/01/21 05/09/22 History potassium chloride 20 mEq 20 meq PO DAILY potassium 12/01/21 03/11/25 History tablet,extended release(part/cryst) (Klor-Con M) sildenafil (pulm.hypertension) 20 20 mg PO TID PRN HTN 12/01/21 Unknown History mg tablet trazodone 50 mg tablet 50 mg PO QHS PRN Sleep 09/14/22 Unknown History allopurinol 100 mg tablet 100 mg PO DAILYCM gout 30 days #30 12/02/21 03/11/25 Rx tabs lisinopril 40 mg tablet 40 mg PO DAILY blood pressure 12/28/21 03/11/25 History warfarin 4 mg tablet 4 mg PO SUMOWETHSA blood thinner 12/28/21 05/04/22 History warfarin 4 mg tablet 6 mg PO TUFR blood thinner 12/28/21 03/11/25 History sotalol 80 mg tablet 80 mg PO BID bp,heart #180 tabs 03/24/23 03/11/25 Rx cholecalciferol (vitamin D3) 50 50 mcg PO DAILY [facility] 10/26/23 Unknown History mcg (2,000 unit) capsule (Vitamin D3) clonidine HCl 0.1 mg tablet 0.1 mg PO BID blood pressure 10/26/23 03/11/25 History fluticasone 250 mcg-salmeterol 50 1 ea inhalation BID SOB AND 10/26/23 Unknown History mcg/dose blistr powdr for WHEEZING inhalation lidocaine 4 % topical cream 1 applic topical TID PRN PRN pain 10/26/23 Unknown History oxycodone-acetaminophen 7.5 mg-325 1 tab PO 4X/DAY PRN pain 12/19/23 Unknown History mg tablet cephalexin 500 mg capsule 500 mg PO BID infection in hip 03/12/25 03/11/25 History Allergy/AdvReac Type Severity Reaction Status Date / Time Penicillins Allergy Hives Verified 03/14/25 11:21 pregabalin (From Lyrica) Allergy Hives Verified 03/14/25 11:21 red dye Allergy Angioedema Verified 03/14/25 11:21 Family History Mother CVA (cerebral vascular accident) Father , Murdered per patient No problems noted. Surgical History History of back surgery History of coronary artery stent placement (03/03/19) History of total knee arthroplasty History of total hip arthroplasty Social History household members: significant other Smoking Status: Former smoker alcohol intake: never substance use type: does not use Review of Systems (Anesthesia) ROS Narrative System reviewed and no additional complaints, except as documented. Physical Exam Resp clear to auscultation bilaterally
--- NOTE | 2025-03-14 11:45 | COLBX_PTH ---
PATIENT: ARELI CARY Jr. LOC: [facility] U#:[id number] AGE/SX: 64/M ROOM: [facility] RE03/12/[address]: Dr. Ward Marques DO : 1960 BED: 1 DIS: 03/16/2025 SPEC #: [id number] RECD: 03/14/25 13:40 STATUS: CAITIE ANGEL #: [id number] JOHN: 03/14/25 11:[address]: Ward Marques DEPT: SURGICAL PATHOLOGY RECD BY: Rosina Breen ENTERED: 03/17/25 11:08 SP TYPE: COLON BX OTHR DR: MD Dr. Juan Swann, DO DO Iveth Mirza NP-C GROVER NdiayeC PATSY Love Tissues: A - COLON BIOPSY B - Descending colon Procedures: Surgery Specimen Level IV HEADER OPERATION: Colonoscopy with polypectomy hot snare, apc cautery PRE-OP DIAGNOSIS: GI Bleed, Acute blood loss, Anemia TISSUE SUBMITTED: Splenic Flexure polyp, Descending Colon polyp MICROSCOPIC DIAGNOSIS A. Colon, splenic flexure, polyp, biopsy: - Tubular adenoma. B. Colon, descending, polyp, biopsy: - Tubulovillous adenoma with prolapse features and displaced epithelium. - The focal assessable margin appears free of dysplasia. MICROSCOPIC DESCRIPTION Slides are reviewed. GROSS DESCRIPTION A. Received is one container labeled with the patient name and designated splenic flexure polyp. The specimen consists of one fragment of light arboleda-pink tissue that measures 0.5 x 0.5 x 0.5 cm. The specimen is totally submitted in one cassette. CPT: B. Received is one container labeled with the patient name and designated descending colon polyp. The specimen consists of one fragment of light arboleda-pink tissue that measures 1.2 x 1.2 x 1 cm. The specimen is totally submitted in one cassette. CPT: 73770s7 CW:03/17/2025
--- NOTE | 2025-03-14 12:39 | OP.PROVAT_ITS ---
03/14/2025 Gagandeep Barclay Do Re : Colonoscopy procedure for Vincent Ruelas Dear Dr. Barclay This procedure was performed on Friday, March 14, 2025. My impressions and recommendations are as follows: Impressions : - Preparation of the colon was poor. - Stool in the entire examined colon. - Three 1 to 2 mm polyps in the descending colon and at the splenic flexure, removed with a hot snare. Resected and retrieved. Clips were placed. Clip rehab therapy manager: [employer]. - Three 6 mm polyps in the rectum. Treated with argon plasma coagulation (APC). - Diverticulosis in the entire examined colon. Recommendations : - Discharge patient to home. - Resume previous diet. - Continue present medications. - Await pathology results. - Repeat colonoscopy in 6 months for surveillance. - Okay to restart Coumadin tomorrow My findings are described in the full procedure note, which is enclosed. If I can be of further assistance, please feel free to contact me at . Sincerely, Juan Gar, 03/14/2025 12:38:19 PM This report has been signed electronically.
--- NOTE | 2025-03-14 12:39 | OP.COLON_ITS ---
Patient Name: Vincent Ruelas Procedure Date: 03/14/2025 11:27 AM Date of : 1960 Age: 64 Procedure: Colonoscopy Indications: Hematochezia Providers: Juan Gar DO Medicines: Monitored Anesthesia Care Patient Profile: This is a 64 year old male. Refer to note in patient chart for documentation of history and physical. Last Colonoscopy: none. The patient's first colonoscopy is today. Complications: No immediate complications. Procedure: Pre-Anesthesia Assessment: - Prior to the procedure, a History and Physical was performed, and patient medications and allergies were reviewed. The patient is competent. The risks and benefits of the procedure and the sedation options and risks were discussed with the patient. All questions were answered and informed consent was obtained. Patient identification and proposed procedure were verified by the physician in the pre-procedure area. Mental Status Examination: alert and oriented. Airway Examination: normal oropharyngeal airway and neck mobility. Respiratory Examination: clear to auscultation. CV Examination: normal. Prophylactic Antibiotics: The patient does not require prophylactic antibiotics. Prior Anticoagulants: The patient has taken no anticoagulant or antiplatelet agents except for NSAID medication. ASA Grade Assessment: II - A patient with mild systemic disease. After reviewing the risks and benefits, the patient was deemed in satisfactory condition to undergo the procedure. The anesthesia plan was to use monitored anesthesia care (MAC). Immediately prior to administration of medications, the patient was re-assessed for adequacy to receive sedatives. The heart rate, respiratory rate, oxygen saturations, blood pressure, adequacy of pulmonary ventilation, and response to care were monitored throughout the procedure. The physical status of the patient was re-assessed after the procedure. After I obtained informed consent, the scope was passed under direct vision. Throughout the procedure, the patient's blood pressure, pulse, and oxygen saturations were monitored continuously. The colonoscope was introduced through the anus and advanced to the cecum, identified by appendiceal orifice and ileocecal valve. The colonoscopy was performed without difficulty. The patient tolerated the procedure well. The quality of the bowel preparation was poor. The ileocecal valve and the rectum were photographed. Scope In: 12:00:54 PM Scope Withdrawal Time 0 hours 21 minutes 36 seconds Scope Out: 12:28:28 PM Total Procedure Duration Time 0 hours 27 minutes 34 seconds Findings: The perianal and digital rectal examinations were normal. Stool was found in the entire colon, interfering with visualization. Lavage of the area was performed using greater than 500 mL of sterile water, resulting in incomplete clearance with continued poor visualization. Three sessile polyps were found in the descending colon and splenic flexure. The polyps were 1 to 2 mm in size. These polyps were removed with a hot snare. Resection and retrieval were complete. To prevent bleeding after the polypectomy, two hemostatic clips were successfully placed. 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 There was no bleeding at the end of the procedure. Three sessile polyps were found in the rectum. The polyps were 6 mm in size. Coagulation for destruction of remaining portion of lesion using argon plasma at 0.3 liters/minute and 30 camargo was successful. Estimated blood loss was minimal. Multiple small and large-mouthed diverticula were found in the entire colon. Impression: - Preparation of the colon was poor. - Stool in the entire examined colon. - Three 1 to 2 mm polyps in the descending colon and at the splenic flexure, removed with a hot snare. Resected and retrieved. Clips were placed. 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 - Three 6 mm polyps in the rectum. Treated with argon plasma coagulation (APC). - Diverticulosis in the entire examined colon. Recommendation: - Discharge patient to home. - Resume previous diet. - Continue present medications. - Await pathology results. - Repeat colonoscopy in 6 months for surveillance. - Okay to restart Coumadin tomorrow Procedure Code(s): --- Professional --- 86164, Colonoscopy, flexible; with ablation of tumor(s), polyp(s), or other lesion(s) (includes pre- and post-dilation and guide wire passage, when performed) 84598, 59, Colonoscopy, flexible; with removal of tumor(s), polyp(s), or other lesion(s) by snare technique CPT copyright 2021 [employer]. All rights reserved. The codes documented in this report are preliminary and upon spreader box operator review may be revised to meet current compliance requirements. Juan Gar DO 03/14/2025 12:38:19 PM This report has been signed electronically. Number of Addenda: 0 Note Initiated On: 03/14/2025 11:27 AM
--- NOTE | 2025-03-14 12:39 | PCM.PN.BLA ---
Progress Note Follow-up in office: [3 months] Okay to restart Coumadin] on 03/15/2025 Okay to restart Aspirin on 03/19/2025 New GI related medications for discharge: None Follow-up procedures needed: [Repeat colonoscopy due to poor prep] Physical Exam Const alert, oriented x3, no apparent distress and healthy appearing General Appearance: cooperative GI normal to inspection, nondistended, normoactive bowel sounds, soft to palpation, non-tender and non-distended Percussion: normal to percussion Rectal Exam: deferred Assessment & Plan Assessment/Plan (1) GI bleed: (2) Acute blood loss anemia: PLAN: Acute GI bleed was multifactorial. I suspect it was from diverticular and very large bleeding polyp that possibly has some malignancy and it that was removed. Follow-up in clinic for repeat colonoscopy. Okay for regular diet. Visit Charges Inpatient E&M: 96345 Subs Hosp L3
--- NOTE | 2025-03-14 12:43 | PCM.POST.ANE ---
Anesthesia: Postop Eval I Current Vital Signs Temperature: 97.9 F Pulse Rate: 77 Blood Pressure: 118/78 Respiratory Rate: 16 Pulse Ox: 97 Oxygen Delivery Method: Room Air Assessment Airway patent: Yes Spontaneous unlabored respirations: Yes Mental status: Awake and Calm nausea: No Vomiting: No Anesthesia Complication: No Fluid Hydration Crystalloid volume administer (ml): 400 Total IV fluid infused: 400 Progress Note Anesthesia document: Postop Eval 1 completed: Yes
--- NOTE | 2025-03-14 15:53 | CASEMGMT ---
Social Work Waiting on therapy evaluations to be completed to determine needs at [facility].? JENN Villar
--- NOTE | 2025-03-14 16:14 | PCM.POSTANE2 ---
Anesthesia Postop Eval I Sum Postop Eval Completion status Anesthesia document: Postop Eval 1 completed: Yes Anesthesia Postop Eval I Summary Anesthesia Postop Eval I Summary: Anesthesia Postop Eval I: Assessment Summary Airway patent Yes 03/14/25 12:44 [email or web address] Spontaneous unlabored Yes 03/14/25 12:44 [email or web address] respirations Mental status Awake,Calm 03/14/25 12:44 [email or web address] nausea No 03/14/25 12:44 [email or web address] Vomiting No 03/14/25 12:44 [email or web address] Anesthesia Postop Eval I: Fluid Summary Crystalloid volume administer 400 03/14/25 12:44 [email or web address] (ml) Colloids volume administered ( ml) Blood Product volume administered (ml) Total IV fluid infused 400 03/14/25 12:44 [email or web address] Anesthesia Postop Eval I: Summary Notes Anesthesia Complication No 03/14/25 12:44 [email or web address] Anesthesia Complication Comment: Post-operative progress note Anesthesia: Postop Eval II Evaluation Mental status: Awake Pain Level: 0 nausea: No Vomiting: No
--- NOTE | 2025-03-14 16:26 | ANES.CONFIRM ---
Anesthesia: Confirm Documents Multiple Procedures on Account (2) Confirmed Documents: Yes
[2025-03-14] MEDS: 0.9% Saline Lock 10 ML Syringe IV (17:26)
[2025-03-14] MEDS: Sotalol Hydrochloride 80 MG Tablet PO (21:52)
[2025-03-15 04:35] VITALS: BP 109/59; PULSE 57; RESP 20; TEMP 36.7; O2SAT 96
[2025-03-15 06:39] LABS: Hematocrit 23.7 % (40-54); Hemoglobin 7.7 g/dL (13.0-16.5); Immature Granulocytes Count 0.050 X10^3/uL (0.0-0.0); Mean Corp Hgb Conc 32.5 g/dL (32-36); Mean Corpuscular Volume 89.1 fL (80-94); Mean Platelet Vol. 11.0 fl (6.2-12.0); NRBC Flagged by Analyzer 0.7 % (0-5); Platelet Count 197 K/mm3 (150-450); RBC Distribution Width CV 16.8 % (11.6-14.6); RBC Distribution Width SD 53.4 fl (35.1-43.9); Red Blood Count 2.66 M/mm3 (4.6-6.2); White Blood Count 9.8 K/mm3 (4.4-11.0)
[2025-03-15 06:50] LABS: Prothrombin Time (Protime)PT. 15.1 SECONDS (11.7-14.9)
[2025-03-15 07:13] LABS: Anion Gap 8 (7-18); BUN 12 mg/dL (4-19); BUN/Creat Ratio 10.6 RATIO (10-20); Calcium,Total 7.8 mg/dL (7.6-11.0); Carbon Dioxide 24.3 mmol/L (20.0-29.0); Chloride 112 mmol/L (96-106); Estimated Creatinine Clearance 105.43 ml/min (50-250); Glucose 120 mg/dL (70-99); Potassium 3.3 mmol/L (3.5-5.1)
[2025-03-15 09:00] VITALS: BP 120/60; PULSE 60; RESP 18; TEMP 36.3; O2SAT 98
[2025-03-15 09:02] VITALS: PULSE 60
[2025-03-15] MEDS: Sotalol Hydrochloride 80 MG Tablet PO ×2 (09:03→21:14)
--- NOTE | 2025-03-15 09:13 | PN.HOSP_ITS ---
Reason for Visit Chief Complaint: chest pain Subjective Subjective Feeling well. No hematochezia/melena. Objective Data Objective Data Vital Signs: Vital Signs Temp Pulse Resp BP Pulse Ox O2 Del Method O2 Flow Rate 36.3 C L 60 18 120/60 98 Room Air 6 03/15/25 09:00 03/15/25 09:02 03/15/25 09:00 03/15/25 09:00 03/15/25 09:00 03/15/25 09:00 03/14/25 11:39 Oxygen Flow Rate (L/min) 6 Oxygen Delivery Method Room Air Weight: 161.025 kg Body Mass Index (BMI) 46.8 Intake & Output: Intake and Output for Last 24 Hours 03/13/25 03/14/25 03/15/25 23:59 23:59 23:59 Intake Total 4150 / 4150 1482.25 / 1482.25 Output Total 1750 / 1750 727 / 727 300 / 300 Balance 2400 / 2400 755.25 / 755.25 -300 / -300 Lab / Micro Data 03/15/25 05:23 03/15/25 05:23 Labs: Laboratory Results - last 24 hr 03/12/25 09:50: Crossmatch See Detail 03/15/25 05:23: WBC 9.8, RBC 2.66 L, Hgb 7.7 L, Hct 23.7 L, MCV 89.1, MCH 28.9, MCHC 32.5, RDW Std Deviation 53.4 H, RDW Coeff of Raheem 16.8 H, Plt Count 197, MPV 11.0, Immature Gran % (Auto) 0.500, Neut % (Auto) 70.4 H, Lymph % (Auto) 19.0, Williams % (Auto) 6.7, Eos % (Auto) 3.1, Baso % (Auto) 0.3, Absolute Neuts (auto) 6.9, Absolute Lymphs (auto) 1.85, Nucleated RBC % 0.7, PT 15.1 H, INR 1.2, Sodium 144, Potassium 3.3 L, Chloride 112 H, Carbon Dioxide 24.3, Anion Gap 8, BUN 12, Creatinine 1.11, Estim Creat Clear Calc 105.43, Est GFR (MDRD) Non-Af 74, BUN/Creatinine Ratio 10.6, Glucose 120 H, Calcium 7.8 Micro: Microbiology 03/12/25 09:40 Stool Stool Occult Blood (RACHEL) - Final Occult Blood Positive Physical Exam Const alert and no apparent distress HEENT head/scalp atraumatic and moist oral mucous membranes Resp normal respiratory effort, no retractions, no use of accessory muscles and clear to auscultation bilaterally Cardio Cardio Narrative: bradycardic. Telemetry reviewed and shows a sinus bradycardia with occasional dropped beats. Neuro Sensorium / Orientation: awake and alert Assessment & Plan Assessment/Plan (1) Acute blood loss anemia: PLAN: Hemoglobin 4.6, down from 10.6 from the . Last available hemoglobin we have is from December 02, 2021 where was 15.3 at that time. Unclear what the patient's hemoglobin had been prior to the . The patient reports that he was having melena before that time. Patient being transfused 5 units of packed red blood cells. Will continue to monitor Likely secondary to a GI bleed. (2) GI bleed: PLAN: Suspect upper. Patient endorses using to leave per day. Patient received IV pantoprazole in the emergency room and will continue that for now. Hold warfarin and aspirin EGD on 03/13: normal esophagus, no gross lesions in the stomach. Erythematous duodenopathy. Colonoscopy next. (3) Coagulopathy: PLAN: Resolved Secondary to warfarin, admission INR 7.8, now 1.1. Resume warfarin w/o bridge (4) Chest pain: PLAN: resolved. elevated troponins. Troponin elevatation are minimal and demand-associated given severe anemia. Suspect related with the anemia. Patient does have a history of stenting. EKG does not show any acute changes.\ Patient not a candidate for acute coronary intervention given his GI bleed and anemia. (5) Bradycardia: PLAN: concern for heart block. Hold carvedilol, sotalol. Continue to monitor on telemetry. Consult cardiology PLAN: Plan Hypertension: continue amlodipine, clonidine, hydralazine and lisinopril Obesity class III: BMI of 45.7 kg/m?. Complicates care and recovery Paroxysmal atrial fibrillation: Warfarin on hold given the GI bleed and the anemia. On carvedilol and sotalol. hyperuricemia: no active gout. continue allopurinol CAD: h/o PCI to distal RCA on 03/03/19. ASA on hold. VTE prophylaxis with SCDs CODE STATUS: Verified with the patient. Patient wishes to be full code. Charges/Coding Visit Charges Inpatient E&M: 19834 Subs Hosp L2
--- NOTE | 2025-03-15 14:28 | PCM.CONS.C ---
Assessment & Plan Assessment/Plan (1) Bradycardia: PLAN: ? Patient with known history of bradycardic rates. Overall asymptomatic bradycardia ? Recommend continuation of home medications including restarting on carvedilol and sotalol. I did appreciate clonidine on his medication list would recommend discontinuing this medication if he is still on it and utilizing other medications for BP control. ? Overall patient is okay for discharge from cardiology standpoint. It has been over 1 year since he has seen his envelope adjuster. Would recommend that he follow-up in office with them as soon as possible after discharge for monitoring. ? Cardiology will drop to standby. Please call questions. (2) Paroxysmal atrial fibrillation: PLAN: ? Patient currently maintaining normal sinus rhythm ? As noted above recommend restarting back on his carvedilol and sotalol in order to maintain normal sinus rhythm. ? Recommend repeat starting back on his Coumadin as well. Goal INR 2?3. Will give first dose today 6 mg x 1. Further management and monitoring by hospitalist team and if possible pharmacy. (3) Chest pain: PLAN: ? Unsure of etiology. Patient reports resolution of chest pain status post correction of his anemia as well as completion of his scopes. ? Advised close monitoring and if patient has any recurrent events return to the ED for evaluation. Very minimally elevated troponins not trending in ACS fashion therefore no plans for ischemic evaluation at this time ? As noted above recommend patient follow-up in office with cardiology as soon as possible postdischarge (4) Atherosclerosis of coronary artery of [place] heart without angina pectoris: PLAN: ? Prior history of myocardial infarction status post PCI of the RCA back in 2019. No need for dual antiplatelet therapy however would recommend continuation of aspirin 81 mg chewable. ? Continue statin along with aggressive lifestyle/risk factor modification ? Monitor closely for any further signs of ACS. Follow-up in office with his cardiology team. (5) Chronic diastolic congestive heart failure, NYHA class 3: PLAN: ? Per history. Patient does not appear to be in exacerbation at this time and fairly euvolemic except for some chronic venous stasis changes/lower extremity edema ? Recommend controlling blood pressure, heart rate, heart rhythm as well as fluid/salt restriction in order to avoid exacerbation ? Patient would benefit from initiation of spironolactone as well as SGLT2 inhibitor which can be done as outpatient. Follow-up in office with his cardiology team for help with management. (6) Essential (primary) hypertension: PLAN: ? Blood pressure with fair control during admission. Recommend goal less than 130/80 ? Discontinuing clonidine in order to help with heart rate therefore blood pressure may increase. Can adjust his medications by increasing amlodipine or starting on spironolactone if this is an issue (7) Mixed hyperlipidemia: PLAN: ? Recommend continuation of high-dose statin. Goal LDL less than 55 (8) Acute blood loss anemia: PLAN: ? Hemoglobin overall stable at 7.7. Recommend maintaining greater than 7.0 ? Further management per hospitalist team. Monitor closely with restart of aspirin and Coumadin (9) Hypokalemia: PLAN: ? Potassium appears to be low at 3.3 the past 2 days. ? Recommend correction of electrolytes with goal potassium greater than 4.0 and magnesium greater than 2.0. Will give 1 p.o. dose of 40 mill equivalents today ? If patient remains admitted recommend rechecking labs tomorrow and correction of both magnesium and potassium as indicated. Management per hospitalist team (10) [facility] (current) use of anticoagulants: PLAN: ? Patient on Coumadin as outpatient for CVA risk reduction. As noted below restarting back on Coumadin 1 dose of 6 mg today. Further management per hospitalist team and pharmacy with goal INR 2?3 ? Patient needs to follow-up in office with his envelope adjuster or PCP whoever monitors his INR soon after discharge (11) Morbid obesity due to excess calories: PLAN: ? BMI of 46.8. Encouragement of increased exercise/activity. 150-180 minutes of moderate intensity exercise per week indicated. ? Patient may benefit from GLP-1 receptor agonist to help with weight loss as well as management of CHF and overall cardiovascular morbidity/mortality benefits. PLAN: Plan ? Patient with a history of bradycardia reported in his envelope adjuster notes as outpatient. Restarting back on both carvedilol and sotalol. Patient overall appears to be asymptomatic from his bradycardia therefore monitoring on telemetry is indicated however no need for temporary pacing at this time. ? Will restart back on Coumadin for CVA risk reduction. 1 dose of 6 mg today further treatment per hospitalist team ? Restarting back on aspirin as well. Monitor for any bleeding ? Hypokalemia noted. Recommend correction with goal potassium greater than 4.0 and magnesium greater than 2.0. 1 dose of 40 mill equivalents given today. Further management per hospitalist team. ? Patient needs to follow-up in office with his envelope adjuster after discharge for monitoring. Needs a INR checked as soon as possible and adjustment of his doses as necessary. ? Patient okay for discharge from cardiology standpoint. Cardiology will drop to standby. Please call with questions. HPI Consult Data Date of Consult: 03/15/25 HPI Narrative Reason for Consultation: Bradycardia HPI Narrative: ARELI CARY, is a 64 M with extensive past medical history including but not limited to hypertension, hyperlipidemia, coronary disease status post myocardial infarction and PCI of the RCA in 2019, chronic diastolic congestive heart failure, and paroxysmal atrial fibrillation with slow bradycardic rate presented to the emergency department due to reports of chest pain a couple of days ago. Patient was evaluated and noted that his hemoglobin was severely low at 4.6 and he had reported some loose stools that were black in color. Patient was given transfusion and consult to gastroenterology completed with completion of colonoscopy and scope status post polyp removal and further treatment. Review of notes and apparently today noticed some bradycardia therefore cardiology consulted for further recommendations. During my evaluation discussion with the patient and he denies any symptoms related to the bradycardia. He denies any lightheadedness/dizziness, fatigue, syncope or other issues. Review of his envelope adjuster outpatient notes and this is a well-known issue with him and his baseline heart rate is in the 50s at times specifically related to being on medications for treatment of his cardiovascular issues. Personal review of telemetry and it appears that patient has sinus bradycardia with a heart rate in the 50?60 range and what appears to be blocked PACs leading to some bradycardic rates at times into the 20?30s. Again patient overall asymptomatic. He denies any general cardiovascular plaints or issues today does report some back pain. [facility] Medical History Spinal cord stimulator status Varicose veins of both legs with edema Ulcer of left lower extremity with fat layer exposed History of ST elevation myocardial infarction (STEMI) (03/03/19) Inability to ambulate due to multiple joints Acute gout Wears glasses Ambulates with cane Arthritis History of Walker's palsy Nicotine vapor product user Shortness of breath on exertion History of edema History of steroid therapy Atherosclerosis of coronary artery of [place] heart without angina pectoris Diastolic congestive heart failure Cardiac dysrhythmia Paroxysmal atrial fibrillation Diastolic dysfunction with acute on chronic heart failure Paroxysmal atrial flutter Cardiopulmonary arrest (08/20/18) History of deep vein thrombosis (DVT) of lower extremity Nicotine dependence Chronic pain Obstructive sleep apnea COPD (chronic obstructive pulmonary disease) Failed back syndrome of lumbar spine Degeneration of intervertebral disc of lumbosacral region Sacrococcygeal disorders, not elsewhere classified Morbid obesity Sacroiliitis, not elsewhere classified Essential (primary) hypertension Home Medications ?Medication ?Instructions ?Recorded ?Last Taken ?Type fluticasone propionate 50 1 spray NASAL DAILY PRN PRN 09/27/18 1 Week Ago History mcg/actuation nasal Allergies ~11/24/21 spray,suspension furosemide 40 mg tablet 40 mg PO BID FLUID OVERLOAD #60 09/28/18 12/01/21 Rx tabs aspirin 81 mg tablet,delayed 81 mg PO DAILY@0800 [facility] 03/05/19 03/11/25 Rx release atorvastatin 80 mg tablet 80 mg PO QHS HIGH CHOLESTEROL #30 03/05/19 12/01/21 Rx tabs albuterol sulfate 90 mcg/actuation 1 - 2 puff inhalation Q4H PRN PRN 02/19/20 1 Week Ago History aerosol inhaler Asthma ~11/24/21 carvedilol 6.25 mg tablet 6.25 mg PO BID heart 02/19/20 03/11/25 History amlodipine 5 mg tablet 5 mg PO DAILY HYPERTENSION 12/01/21 05/09/22 History hydralazine 50 mg tablet 50 mg PO BID HYPERTENSION 12/01/21 05/09/22 History potassium chloride 20 mEq 20 meq PO DAILY potassium 12/01/21 03/11/25 History tablet,extended release(part/cryst) (Klor-Con M) sildenafil (pulm.hypertension) 20 20 mg PO TID PRN HTN 12/01/21 Unknown History mg tablet trazodone 50 mg tablet 50 mg PO QHS PRN Sleep 12/01/21 Unknown History allopurinol 100 mg tablet 100 mg PO DAILYCM gout 30 days #30 12/02/21 03/11/25 Rx tabs lisinopril 40 mg tablet 40 mg PO DAILY blood pressure 12/28/21 03/11/25 History warfarin 4 mg tablet 4 mg PO SUMOWETHSA blood thinner 12/28/21 05/04/22 History warfarin 4 mg tablet 6 mg PO TUFR blood thinner 12/28/21 03/11/25 History sotalol 80 mg tablet 80 mg PO BID bp,heart #180 tabs 03/24/23 03/11/25 Rx cholecalciferol (vitamin D3) 50 50 mcg PO DAILY [facility] 10/26/23 Unknown History mcg (2,000 unit) capsule (Vitamin D3) clonidine HCl 0.1 mg tablet 0.1 mg PO BID blood pressure 10/26/23 03/11/25 History fluticasone 250 mcg-salmeterol 50 1 ea inhalation BID SOB AND 10/26/23 Unknown History mcg/dose blistr powdr for WHEEZING inhalation lidocaine 4 % topical cream 1 applic topical TID PRN PRN pain 10/26/23 Unknown History oxycodone-acetaminophen 7.5 mg-325 1 tab PO 4X/DAY PRN pain 12/19/23 Unknown History mg tablet cephalexin 500 mg capsule 500 mg PO BID infection in hip 03/12/25 03/11/25 History Allergy/AdvReac Type Severity Reaction Status Date / Time Penicillins Allergy Hives Verified 03/14/25 11:21 pregabalin (From Lyrica) Allergy Hives Verified 03/14/25 11:21 red dye Allergy Angioedema Verified 03/14/25 11:21 Family History Mother CVA (cerebral vascular accident) Father , Murdered per patient No problems noted. Surgical History History of back surgery History of coronary artery stent placement (03/03/19) History of total knee arthroplasty History of total hip arthroplasty Social History household members: significant other Smoking Status: Former smoker alcohol intake: never substance use type: does not use ROS ROS Narrative 12 systems were reviewed and negative unless stated above Physical Exam Const alert, oriented x3 and no apparent distress Orientation / Consciousness: awake HEENT normocephalic Eyes PERRL Resp normal respiratory effort and clear to auscultation bilaterally Resp Narrative: Decreased breath sounds with no wheezes, rales, or rhonchi Cardio Cardio Narrative: Bradycardic regular rate and regular rhythm with no appreciated murmurs, rubs, or gallops GI normal to inspection, nondistended, normoactive bowel sounds and soft to palpation Extremity normal to inspection Extremity Narrative: No clubbing or cyanosis. 1+ bilateral lower extremity pitting edema Skin no rashes or lesions noted Skin Narrative: Chronic venous stasis change bilateral lower extremities Neuro Neuro Narrative: Moves all extremities. Right lower extremity appears to be mildly weaker than the left lower extremity Psych Psych Narrative: Normal mood and affect Charges/Coding Visit Charges Inpatient E&M: 48111 Init Hosp L3 Objective Data Vital Signs: Vital Signs Temp Pulse Resp BP Pulse Ox O2 Del Method O2 Flow Rate 97.3 F L 60 18 120/60 98 Room Air 6 03/15/25 09:00 03/15/25 09:02 03/15/25 09:00 03/15/25 09:00 03/15/25 09:00 03/15/25 13:24 03/14/25 11:39 Oxygen Flow Rate (L/min) 6 Oxygen Delivery Method Room Air Weight: 354 lb 15.989 oz Body Mass Index (BMI) 46.8 Intake & Output: Intake and Output for Last 24 Hours 03/13/25 03/14/25 03/15/25 23:59 23:59 23:59 Intake Total 4150 / 4150 1482.25 / 1482.25 400 / 400 Output Total 1750 / 1750 727 / 727 300 / 300 Balance 2400 / 2400 755.25 / 755.25 100 / 100 Lab / Micro Data Attestation: I reviewed the patient's lab results. Lab results narrative: Labs were reviewed and pertinent results discussed with the patient 03/15/25 05:23 03/15/25 05:23 Labs: Laboratory Results - last 24 hr 03/12/25 09:50: Crossmatch See Detail 03/15/25 05:23: WBC 9.8, RBC 2.66 L, Hgb 7.7 L, Hct 23.7 L, MCV 89.1, MCH 28.9, MCHC 32.5, RDW Std Deviation 53.4 H, RDW Coeff of Raheem 16.8 H, Plt Count 197, MPV 11.0, Immature Gran % (Auto) 0.500, Neut % (Auto) 70.4 H, Lymph % (Auto) 19.0, [place] % (Auto) 6.7, Eos % (Auto) 3.1, Baso % (Auto) 0.3, Absolute Neuts (auto) 6.9, Absolute Lymphs (auto) 1.85, Nucleated RBC % 0.7, PT 15.1 H, INR 1.2, Sodium 144, Potassium 3.3 L, Chloride 112 H, Carbon Dioxide 24.3, Anion Gap 8, BUN 12, Creatinine 1.11, Estim Creat Clear Calc 105.43, Est GFR (MDRD) Non-Af 74, BUN/Creatinine Ratio 10.6, Glucose 120 H, Calcium 7.8 Rhythm Strip Rhythm Strip: Sinus Rhythm (Sinus bradycardia with what appears to be blocked PACs. No heart block or pauses actually appreciated.) Cardiology Labs/Tests 03/15/25 05:23: WBC 9.8, RBC 2.66 L, Hgb 7.7 L, Hct 23.7 L, MCV 89.1, MCH 28.9, MCHC 32.5, Plt Count 197, MPV 11.0, Immature Gran % (Auto) 0.500, Neut % (Auto) 70.4 H, Lymph % (Auto) 19.0, [place] % (Auto) 6.7, Eos % (Auto) 3.1, Baso % (Auto) 0.3, Absolute Neuts (auto) 6.9, Nucleated RBC % 0.7, PT 15.1 H, INR 1.2, Sodium 144, Potassium 3.3 L, Chloride 112 H, Carbon Dioxide 24.3, Anion Gap 8, BUN 12, Creatinine 1.11, Est GFR (MDRD) Non-Af 74, BUN/Creatinine Ratio 10.6, Glucose 120 H, Calcium 7.8 Rhythm: EKG: ECHO: Stress Test: Cardiac Cath: PCI: CT Surgery: Holter monitor: EPS: PPM: CXR: Chest CT Scan: RHONA Risk Score for UA/STEMI Assesmment (YES = 1) Risk Stratification Applicable: Yes Age > or = 65: Yes > or = 3 CAD risk factors (HTN, Hypercholesterolemia, Diabetes, family hx, current smoker): Yes Known CAD (Stenosis > or = 50%): Yes ASA used in past 7 days: Yes Severe angina (> or = 2 episodes in 24 hrs): Yes EKG ST change > or = 0.5mm: No Positive cardiac markers: Yes Score RHONA Risk Score of mortality/ recurrent ischemic event over the next 14 days: 6-7 = 40.9% - HIGH RISK
--- NOTE | 2025-03-15 14:58 | CASEMGMT ---
Social Work SW met w/pt in room, to review discharge options. SW reviewed PT, they are not recommending therapy at d/c. SW checked w/pt about this, he does think he can go home at d/c. We did talk about home health care, pt is not certain if he would want this or not. SW explained if he were to be d/c on the weekend and decides he wants HHC, his PCP can also make a referral. Pt states understanding, states however that as per the doctor he will be here a couple of days yet. SW let pt know will have SW follow up w/him on Monday if he is still here. Otherwise, plan is to d/c home w/support of significant other. JARROD Mariee
[2025-03-15 15:00] VITALS: BP 109/66; PULSE 49; RESP 18; TEMP 36.1; O2SAT 97
[2025-03-15] MEDS: Warfarin (PBKC) 6 MG Tablet PO (15:54)
[2025-03-15 21:10] VITALS: BP 105/57; PULSE 61; RESP 18; TEMP 36.7; O2SAT 97
[2025-03-15] MEDS: Pantoprazole Sodium 40 MG in 0.9% Normal Saline (100mL MB+) 100 ML 300 MG IV (21:14)
[2025-03-15 21:15] VITALS: BP 105/57; PULSE 61
[2025-03-15] MEDS: 0.9% Saline Lock 10 ML Syringe IV (21:15)
--- NOTE | 2025-03-15 23:15 | EKG12_ITS ---
Test Reason : MEDS Blood Pressure : */* mmHG Vent. Rate : 48 BPM Atrial Rate : 133 BPM P-R Int : * ms QRS Dur : 106 ms QT Int : 488 ms P-R-T Axes : * 47 134 degrees QTcB Int : 435 ms Undetermined rhythm ; Baseline obscurring interpretation Inferior infarct (cited on or before 12-Mar-2025) T wave abnormality, consider lateral ischemia Abnormal ECG Cannot rule out 2:1 AV Block Confirmed by Angel Santamaria ([id number]), web editor SAMANTHA MASTERS ([id number]) on 03/21/2025 7:42:42 AM Referred By: LARRY Confirmed By: Angel Santamaria
--- NOTE | 2025-03-15 23:20 | EKG12_ITS ---
Test Reason : MEDS Blood Pressure : */* mmHG Vent. Rate : 52 BPM Atrial Rate : 48 BPM P-R Int : * ms QRS Dur : 104 ms QT Int : 454 ms P-R-T Axes : * 47 144 degrees QTcB Int : 422 ms Undetermined rhythm ; Possible Sinus Bradycardia with PAC; Cannot rule out Second Degree Heart Block Possible Inferior infarct (cited on or before 12-Mar-2025) T wave abnormality, consider lateral ischemia Abnormal ECG Baseline artifact Recommend repeat EKG Confirmed by Angel Santamaria ([id number]), telegraph editor SAMANTHA MASTERS ([id number]) on 03/21/2025 7:41:00 AM Referred By: LARRY Confirmed By: Angel Santamaria
[2025-03-16 00:50] VITALS: BP 91/57; PULSE 57; RESP 18; TEMP 37.1; O2SAT 98
[2025-03-16 04:00] VITALS: BP 96/56; PULSE 51; RESP 20; TEMP 36.7; O2SAT 96
--- NOTE | 2025-03-16 08:01 | PCM.PN.HOSP ---
Reason for Visit Chief Complaint: chest pain Subjective Subjective Feeling well. Had some black stool. Objective Data Objective Data Vital Signs: Vital Signs Temp Pulse Resp BP Pulse Ox O2 Del Method O2 Flow Rate 36.7 C 51 L 20 H 96/56 L 96 Room Air 6 03/16/25 04:00 03/16/25 04:00 03/16/25 04:00 03/16/25 04:00 03/16/25 04:00 03/16/25 07:50 03/14/25 11:39 Oxygen Flow Rate (L/min) 6 Oxygen Delivery Method Room Air Weight: 161.025 kg Body Mass Index (BMI) 46.8 Intake & Output: Intake and Output for Last 24 Hours 03/14/25 03/15/25 03/16/25 23:59 23:59 23:59 Intake Total 1482.25 / 1482.25 1250 / 1250 240 / 240 Output Total 727 / 727 400 / 400 150 / 150 Balance 755.25 / 755.25 850 / 850 90 / 90 Lab / Micro Data 03/15/25 05:23 03/15/25 05:23 Micro: Microbiology 03/12/25 09:40 Stool Stool Occult Blood (RACHEL) - Final Occult Blood Positive Rhythm Strip Rhythm Strip: Sinus Rhythm (Sinus bradycardia with what appears to be blocked PACs. No heart block or pauses actually appreciated.) Physical Exam Const alert and no apparent distress HEENT head/scalp atraumatic and moist oral mucous membranes Resp normal respiratory effort and no retractions Cardio Cardio Narrative: bradycardic. Neuro Sensorium / Orientation: awake and alert Assessment & Plan Assessment/Plan (1) Acute blood loss anemia: PLAN: Hemoglobin 4.6, down from 10.6 from the . Last available hemoglobin we have is from December 02, 2021 where was 15.3 at that time. Unclear what the patient's hemoglobin had been prior to the . The patient reports that he was having melena before that time. Patient being transfused 5 units of packed red blood cells. Will continue to monitor Likely secondary to a GI bleed. (2) GI bleed: PLAN: Suspect upper. Patient endorses using to leave per day. Patient received IV pantoprazole in the emergency room and will continue that for now. Hold warfarin and aspirin EGD on 03/13: normal esophagus, no gross lesions in the stomach. Erythematous duodenopathy. Colonoscopy next. (3) Coagulopathy: PLAN: Resolved Secondary to warfarin, admission INR 7.8, now 1.1. Resume warfarin w/o bridge (4) Chest pain: PLAN: resolved. elevated troponins. Troponin elevatation are minimal and demand-associated given severe anemia. Suspect related with the anemia. Patient does have a history of stenting. EKG does not show any acute changes.\ Patient not a candidate for acute coronary intervention given his GI bleed and anemia. (5) [facility]: [facility] and felt appropriate to resume carvedilol and sotalol. PLAN: Plan Hypertension: continue amlodipine, clonidine, hydralazine and lisinopril Obesity class III: BMI of 45.7 kg/m?. Complicates care and recovery Paroxysmal atrial fibrillation: Warfarin on hold given the GI bleed and the anemia. On carvedilol and sotalol. hyperuricemia: no active gout. continue allopurinol CAD: h/o PCI to distal RCA on 03/03/19. ASA on hold. VTE prophylaxis with SCDs CODE STATUS: Verified with the patient. Patient wishes to be full code. Disposition: pending labs. Charges/Coding Visit Charges Inpatient E&M: 85952 Subs Hosp L2
[2025-03-16] MEDS: Pantoprazole Sodium 40 MG in 0.9% Normal Saline (100mL MB+) 100 ML 300 MG IV (09:30)
[2025-03-16 09:50] VITALS: BP 89/54; PULSE 46; RESP 18; TEMP 36.3; O2SAT 96
[2025-03-16 11:12] VITALS: BP 119/76; PULSE 56; RESP 18; TEMP 36.3; O2SAT 97
[2025-03-16 13:47] LABS: Hematocrit 25.1 % (40-54); Hemoglobin 8.0 g/dL (13.0-16.5); Immature Granulocytes Count 0.030 X10^3/uL (0.0-0.0); Mean Corp Hgb Conc 31.9 g/dL (32-36); Mean Corpuscular Volume 89.3 fL (80-94); Mean Platelet Vol. 10.9 fl (6.2-12.0); NRBC Flagged by Analyzer 0.2 % (0-5); Platelet Count 199 K/mm3 (150-450); RBC Distribution Width CV 16.6 % (11.6-14.6); RBC Distribution Width SD 54.1 fl (35.1-43.9); Red Blood Count 2.81 M/mm3 (4.6-6.2); White Blood Count 8.5 K/mm3 (4.4-11.0)
--- NOTE | 2025-03-16 14:02 | PCM.DC.SUM ---
Providers Date of Admission: 03/12/25 Primary Care Physician: Dr. Gagandeep Barclay, Consultations 03/12/25 14:34 Consult: Gastroenterology Routine Consulting Provider: [facility] Reason for Consult: GI bleed EMERGENT Consult: No MD Notified: Yes Date Notified: 03/12/25 Time Notified: 11:59 Method of Notification: ED Physician Initiated 03/15/25 11:33 Consult: Cardiology Routine Consulting Provider: Sam Belle Reason for Consult: bradycardia, sinus pause. EMERGENT Consult: No MD Notified: Yes Date Notified: 03/15/25 Time Notified: 11:33 Method of Notification: Verbal Reason For Visit: GIB. ABLA. Diagnosis Discharge Diagnosis (1) Acute blood loss anemia: Status: Acute Code(s): D62 - Acute posthemorrhagic anemia Plan: Hemoglobin 4.6, down from 10.6 from the . Last available hemoglobin we have is from December 02, 2021 where was 15.3 at that time. Unclear what the patient's hemoglobin had been prior to the . The patient reports that he was having melena before that time. Patient being transfused 5 units of packed red blood cells. Will continue to monitor Likely secondary to a GI bleed. (2) GI bleed: Status: Acute Code(s): K92.2 - Gastrointestinal hemorrhage, unspecified Plan: Suspect upper. Patient endorses using to leave per day. Patient received IV pantoprazole in the emergency room and will continue that for now. Hold warfarin and aspirin EGD on 03/13: normal esophagus, no gross lesions in the stomach. Erythematous duodenopathy. Colonoscopy next. (3) Coagulopathy: Status: Acute Code(s): D68.9 - Coagulation defect, unspecified Plan: Resolved Secondary to warfarin, admission INR 7.8, now 1.1. Resume warfarin w/o bridge (4) Chest pain: Status: Acute Code(s): R07.9 - Chest pain, unspecified Plan: resolved. elevated troponins. Troponin elevatation are minimal and demand-associated given severe anemia. Suspect related with the anemia. Patient does have a history of stenting. EKG does not show any acute changes.\ Patient not a candidate for acute coronary intervention given his GI bleed and anemia. (5) Bradycardia: Status: Acute Code(s): R00.1 - Bradycardia, unspecified [facility]: [facility] evaluated and felt appropriate to resume carvedilol and sotalol. Plan Hypertension: continue amlodipine, clonidine, hydralazine and lisinopril Obesity class III: BMI of 45.7 kg/m?. Complicates care and recovery Paroxysmal atrial fibrillation: Warfarin on hold given the GI bleed and the anemia. On carvedilol and sotalol. hyperuricemia: no active gout. continue allopurinol CAD: h/o PCI to distal RCA on 03/03/19. ASA on hold. VTE prophylaxis with SCDs CODE STATUS: Verified with the patient. Patient wishes to be full code. Disposition: pending labs. Medications at Discharge Home Medications fluticasone propionate 50 mcg/actuation nasal spray,suspension 1 spray NASAL DAILY PRN PRN Allergies 09/27/18 furosemide 40 mg tablet 40 mg PO BID FLUID OVERLOAD #60 tabs 09/28/18 aspirin 81 mg tablet,delayed release 81 mg PO DAILY@0800 HEART HEALTH 03/05/19 atorvastatin 80 mg tablet 80 mg PO QHS HIGH CHOLESTEROL #30 tabs 03/05/19 albuterol sulfate 90 mcg/actuation aerosol inhaler 1 - 2 puff inhalation Q4H PRN PRN Asthma 02/19/20 carvedilol 6.25 mg tablet 6.25 mg PO BID heart 02/19/20 amlodipine 5 mg tablet 5 mg PO DAILY HYPERTENSION 12/01/21 hydralazine 50 mg tablet 50 mg PO BID HYPERTENSION 12/01/21 potassium chloride 20 mEq tablet,extended release(part/cryst) (Klor-Con M) 20 meq PO DAILY potassium 12/01/21 sildenafil (pulm.hypertension) 20 mg tablet 20 mg PO TID PRN HTN 12/01/21 trazodone 50 mg tablet 50 mg PO QHS PRN Sleep 12/01/21 allopurinol 100 mg tablet 100 mg PO DAILYCM gout 30 days #30 tabs 12/02/21 lisinopril 40 mg tablet 40 mg PO DAILY blood pressure 12/28/21 warfarin 4 mg tablet 4 mg PO SUMOWETHSA blood thinner 12/28/21 warfarin 4 mg tablet 6 mg PO TUFR blood thinner 12/28/21 sotalol 80 mg tablet 80 mg PO BID bp,heart #180 tabs 03/24/23 cholecalciferol (vitamin D3) 50 mcg (2,000 unit) capsule (Vitamin D3) 50 mcg PO DAILY GENERAL HEALTH 10/26/23 clonidine HCl 0.1 mg tablet 0.1 mg PO BID blood pressure 10/26/23 fluticasone 250 mcg-salmeterol 50 mcg/dose blistr powdr for inhalation 1 ea inhalation BID SOB AND WHEEZING 10/26/23 lidocaine 4 % topical cream 1 applic topical TID PRN PRN pain 10/26/23 oxycodone-acetaminophen 7.5 mg-325 mg tablet 1 tab PO 4X/DAY PRN pain 12/19/23 Hospital Course Operations None Procedures Colonoscopy and EGD Summary of Care Provided Hospital Course: This is a six 4-year-old male presents with chest pain. Patient was having melena for 4 weeks. Hemoglobin was 4.6 on admission. And the 21st, is actually 10.6 at that time. Patient was transfused total 6 units during this hospitalization. Patient underwent a EGD that was unremarkable and colonoscopy that was reported to me by Dr. Gar that he had a bleeding polyp that was removed cauterized. Patient's hemoglobin has remained stable after the 6 units. Patient did have issues with bradycardia. I did have cardiology see him as patient does take carvedilol and sotalol. Swoope to be asymptomatic and patient was okay to continue with his carvedilol and sotalol. Patient overall feeling well and will be discharged home. Weight / BMI Weight Weight: 161.025 kg Body Mass Index (BMI) 46.8 ABG / Lab / Microbiology Data 03/16/25 13:35 03/15/25 05:23 Laboratory: Laboratory Results - last 24 hr 03/16/25 13:35: WBC 8.5, RBC 2.81 L, Hgb 8.0 L, Hct 25.1 L, MCV 89.3, MCH 28.5, MCHC 31.9 L, RDW Std Deviation 54.1 H, RDW Coeff of Raheem 16.6 H, Plt Count 199, MPV 10.9, Immature Gran % (Auto) 0.400, Neut % (Auto) 74.7 H, Lymph % (Auto) 13.0 L, Dane % (Auto) 8.8, Eos % (Auto) 2.7, Baso % (Auto) 0.4, Absolute Neuts (auto) 6.4, Absolute Lymphs (auto) 1.11, Nucleated RBC % 0.2 Microbiology: Microbiology 03/12/25 09:40 Stool Stool Occult Blood (RACHEL) - Final Occult Blood Positive D/C Instructions DC O2, CPAP, BIPAP Needs Home O2 Discharge instructions: No Meaningful Use Info Meaningful Use Meaningful Use Diagnoses (Choose all that apply): None applicable Discharge Plan Admission Admit Date/Time: 03/12/25 11:55 Primary Reason for Your Visit: GI bleed. Attending Provider: Ward Marques Primary Care Provider: Gagandeep Barclay Consulting Providers: Han Corral; Juan Gar; Iveth Avalos; Maria Guadalupe Cameron; Karen Lopez; Sam Belle Instructions Additional Instructions / Restrictions: You had a gastrointestinal bleed complicated by by your Coumadin and aspirin. Dr. Gar was able to address that with a bleeding polyp. If you do have further bleeding in the future, obvious blood or dark tarry stools, notify your physician or return to the emergency room. Dr. Gar feels that you are able to resume your aspirin and warfarin safely. Please follow-up with your primary care doctor to have your INR checked. Discharge Orders/Prescriptions Prescriptions: Continued warfarin 4 mg tablet 6 mg PO TUFR Patient Comments: PCP MANAGING warfarin 4 mg tablet 4 mg PO SUMOWETHSA Patient Comments: PCP MANAGING sotalol 80 mg tablet 80 mg PO BID Qty: 180 3RF oxycodone-acetaminophen 7.5-325 mg tablet 1 tab PO 4X/DAY PRN (Reason: pain) lisinopril 40 mg tablet 40 mg PO DAILY fluticasone propionate 16 GM spray,suspension 1 spray NASAL DAILY PRN PRN (Reason: Allergies) Patient Comments: PLACE 2 SPRAYS IN EACH NOSTRIL ONCE DAILY furosemide 40 mg tablet 40 mg PO BID Qty: 60 0RF atorvastatin 80 MG tablet 80 mg PO QHS Qty: 30 0RF aspirin 81 MG tablet 81 mg PO DAILY@0800 0RF carvedilol 6.25 MG tablet 6.25 mg PO BID albuterol sulfate 1 PUFF inhaler 1 - 2 puff INHALATION Q4H PRN PRN (Reason: Asthma) sildenafil (pulm.hypertension) 20 mg tablet 20 mg PO TID PRN (Reason: HTN) amlodipine 5 mg tablet 5 mg PO DAILY hydralazine 50 mg tablet 50 mg PO BID Patient Comments: TAKE 1 TABLET BY MOUTH TWICE A DAY potassium chloride [Klor-Con M20] 20 mEq tablet,ER particles/crystals 20 meq PO DAILY trazodone 50 mg tablet 50 mg PO QHS PRN (Reason: Sleep) Patient Comments: TAKE 1 TABLET BY MOUTH AT BEDTIME NEEDED FOR SLEEP allopurinol 100 mg Tablet 100 mg PO DAILYCM 30 Days Qty: 30 0RF fluticasone propion-salmeterol 250-50 mcg/dose blister with device 1 ea inhalation BID clonidine HCl 0.1 mg tablet 0.1 mg PO BID lidocaine 4 % cream 1 applic topical TID PRN PRN (Reason: pain) cholecalciferol (vitamin D3) [Vitamin D3] 50 mcg (2,000 unit) capsule 50 mcg PO DAILY Discontinued cephalexin 500 mg capsule 500 mg PO BID Referrals / Follow Up: [facility] [Provider Group] - Within 1 Month Gagandeep Barclay DO [Primary Care Provider, Medical] - Within 2 Weeks Disposition Disposition (needs filled in before D/C Order can be placed): Home, Self Care Charges/Coding Visit Charges Inpatient E&M: 47535 Disch Hosp
[2025-03-16 15:45] LABS: Anion Gap 6 (7-18); BUN 14 mg/dL (4-19); BUN/Creat Ratio 11.7 RATIO (10-20); Calcium,Total 6.8 mg/dL (7.6-11.0); Carbon Dioxide 22.4 mmol/L (20.0-29.0); Chloride 113 mmol/L (96-106); Estimated Creatinine Clearance 100.89 ml/min (50-250); Glucose 81 mg/dL (70-99); Potassium 4.1 mmol/L (3.5-5.1)
== END 2025-03-16 17:07 | disposition home or self-care (01) | DRG 393 ==
LOC: ED 11:49 → PCU 12:12
PROVIDERS: Internal Medicine Gastroenterology; Emergency Provider Student in an Organized Health Care Education/Training Program
PROC: 0DJ08ZZ Inspection of Upper Intestinal Tract, Via Natural or Artificial Opening Endoscopic (ICD-10-PCS; CPT 43235; principal; 2025-03-13 10:00)
PROC: 0DJD8ZZ Inspection of Lower Intestinal Tract, Via Natural or Artificial Opening Endoscopic (ICD-10-PCS; CPT 45378; principal; 2025-03-14 11:40)
DX: K62.1 Rectal polyp (principal); K57.31 Diverticulosis of large intestine without perforation or abscess with bleeding; D68.32 Hemorrhagic disorder due to extrinsic circulating anticoagulants; I24.89 Other forms of acute ischemic heart disease; I50.32 Chronic diastolic (congestive) heart failure; Z68.42 Body mass index [BMI] 45.0-49.9, adult; D62 Acute posthemorrhagic anemia; J44.9 Chronic obstructive pulmonary disease, unspecified; I11.0 Hypertensive heart disease with heart failure; I48.0 Paroxysmal atrial fibrillation; I25.10 Atherosclerotic heart disease of native coronary artery without angina pectoris; E78.2 Mixed hyperlipidemia; E87.6 Hypokalemia; K31.89 Other diseases of stomach and duodenum; D12.3 Benign neoplasm of transverse colon; R00.1 Bradycardia, unspecified; I25.2 Old myocardial infarction; E66.01 Morbid (severe) obesity due to excess calories; D12.4 Benign neoplasm of descending colon; E66.813 Obesity, class 3; E79.0 Hyperuricemia without signs of inflammatory arthritis and tophaceous disease; Z95.5 Presence of coronary angioplasty implant and graft; Z79.82 Long term (current) use of aspirin; Z79.01 Long term (current) use of anticoagulants; Z79.899 Other long term (current) drug therapy; Z86.718 Personal history of other venous thrombosis and embolism; Z87.891 Personal history of nicotine dependence; Z23 Encounter for immunization
CPT/HCPCS: 36415; 71046; 74174; 80048; 80076; 82274; 83735; 83880; 84484; 85014; 85018; 85025; 85610; 85730; 86850; 86900; 86901; 87631; 88305; 93005; 96360; 97116; 97161; 97165; 99284; 99285; C1889; P9016; Q9967; A4216; J2405; J7165